=== PATIENT | female | born 1940 | race Caucasian/White ===

== ENCOUNTER 2016-10-19 15:40 | Emergency (ER) | payer MEDICARE, MEDICAID ==
[~2016-10-19] VITALS: Ht 144.8 cm; Wt 86.2 kg
[~2016-10-19 15:40] MED LIST: ALBUTEROL2 PUFFS/17 IN; ALLEGRA60 M1 PO; ALLOPURINOL100 MG PO; AMARYL1 MG PO; AMITRIPTYLINE 225 MG PO; AMITRIPTYLINE 550 MG PO; AMITRIPTYLINE25 MG PO; AMOXIL500 MG PO; ASPIRIN 81MG TA81 MG PO; ATIVAN GENERIC0.5 MG PO; BENADRYL25 M3 PO; BENGAY GREASELE1 CRE TP; BENZONATATE100 MG PO; BRILINTA90 MG PO; CALCIUM 500 + D1 TA1 PO; CALCIUM CARB500 MG PO; CALCIUM PO; CARVEDILOL 1212.5 MG FT; CARVEDILOL6.25 M1 PO; CARVEDILOL6.25 MG PO; CELEBREX200 MG PO; CIPRO 500MG TA500 MG PO; CLINDAMYCIN HC300 MG PO; COLCHICINE 0.60.6 MG PO; COLCHICINE0.6 M4 PO; DIAZEPAM5 MG PO; DILTIAZEM 180180 MG PO; DILTIAZEM CD 2240 MG PO; DOCUSATE SODIU100 MG PO; DOCUSATE SODIU250 M1 PO; DOXEPIN PO; ESCITALOPRAM10 M1 PO; FLEXERIL10 M1 PO; FLUCONAZOLE 10100 MG PO; FUROSEMIDE 40MG40 M1 PO; GABAPENTIN100 MG PO; GABAPENTIN300 MG PO; GERITOL COMPLET1 TAB PO; HYDROXYZINE HCL25 MG PO; INSULIN GL100 UNITS/ SC; KEFLEX 500MG.500 MG PO; LAMISIL250 MG PO; LANTUS SOLOS100 U/ML SC; LASIX 40MG. TAB40 MG PO; LASIX20 MG PO; LEVAQUIN250 MG PO; LEVOTHYROXINE0.05 M3 PO; LEVOTHYROXINE0.05 MG PO; LIPITOR40 MG PO; LISINOPRIL 5MG T5 MG PO; LISINOPRIL2.5 M1 PO; LOTREL 5 MG-101 CAP PO; LYRICA25 MG PO; LYRICA50 MG PO; MEDROL 4MG. DOSE4 MG PO; METFORMIN 500M500 MG PO; METOLAZONE 2.52.5 MG PO; METOLAZONE5 MG PO; METOPROLOL TART50 MG PO; MIRALAX17 GM/DOSE PO; MUPIROCIN CALCIUM2% TP; NAPROSYN 500MG500 MG PO; NAPROXEN SODIU220 MG PO; NEURONTIN 100100 MG PO; NOVOLOG MI100 UNITS/ SC; NOVOLOG MIX 70/10 M1 SC; NOVOLOG MIX SC; OMEPRAZOLE20 MG PO; OS-CAL 500 + D1 TAB PO; POTASSIUM CHLO10 ME3 PO; POTASSIUM CHLO20 ME2 PO; PREDNISONE 10MG10 MG PO; PREDNISONE20 MG PO; PREDNISONE50 MG PO; PRILOSEC20 MG PO; PROCTOCREAM-HC2.5% TP; RESTORIL 15MG C15 MG PO; SPECTAZOLE TP; SUPER B COMPLEX1 CAP PO; TESSALON PERLE100 M1 PO; TESSALON PERLE100 MG PO; TRAMADOL 50MG T50 MG PO; TRAZODONE50 MG PO; TYLENOL W/CODEI1 TA2 PO; Tramadol HCl50 MG PO; VENTOLIN H0.09 MG/AC IH; VICODIN 5/500 T1 TAB PO; VITAMIN B-1100 MG PO; WALK1 XX; ZANTAC 300300 MG PO; ZITHROMAX TRI-500 M1 PO; ZITHROMAX Z-PA250 M2 PO; ZYVOX600 MG PO; [UNRECOGNIZED DRUG - OTHER] PO; [UNRECOGNIZED DRUG - SUPPLY] XX
[2016-10-19 16:06] LABS: LYMPH # 0.8 K/mm3 (0.7-4.5); LYMPH % 9.1 % (10-50.0)
--- NOTE | 2016-10-19 16:09 | RADIOLOGY REPORT PS360 ---
CHEST-PORTABLE HISTORY: CHEST PAIN ORDERING PHYSICIAN: Derik Medrano MD PATIENT AGE: 76 years COMPARISON: 09/13/2016 FINDINGS: Cardiomegaly without failure. CHF has improved compared to the previous exam. There is however low lung volumes with coarsening of the bronchovascular markings likely accentuated by the poor inspiration. Atelectasis versus infiltrate noted in the right lung base. The remaining lungs are clear. IMPRESSION: Low lung volumes with chronic coarsening of the bronchovascular markings and atelectasis or infiltrate in right lung base
[2016-10-19 16:15] LABS: HEMOGLOBIN 10.6 g/dL (12.2-16.2)
--- NOTE | 2016-10-19 16:34 | Emergency Room Report ---
History of Present Illness Time Seen by [id number] Presenting Problem in Triage Pt arrived:Ambulance Stretcher Presenting Problem:Patient presents by ambulance with soa and chest pain that is worse with inspiration. She states she started feeling this way yesterday. 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 N Clinical Suspician of Infection? N Mental Status: 1 - Regular (Normal Baseline) Sepsis Risk:Low Sepsis Risk Have you (or family members/close friends) recently traveled outside the [place]? N If Yes, where/when: Have you had exposure to infectious disease within the past month? N TB? Other? Specify: Source patient, RN notes reviewed, family, RN/MD Exam Limitations no limitations Comment This is a 76-year-old [facility] female patient, from [place], presented emergency room with subjective fever, pleuritic type chest pain, off-and-on for the past 24 hours. Patient is known with diabetes sent diabetic neuropathy. She just had a heart attack within the past one month, requiring a coronary stent. ALLERGIES Coded Allergies: vancomycin (Severe, 09/13/16) Sulfa (Sulfonamide Antibiotics) (Mild, 09/13/16) celecoxib (From CELEBREX) (Mild, 09/13/16) cephalexin (From KEFLEX) (Mild, 09/13/16) levofloxacin (From LEVAQUIN) (Mild, 09/13/16) Home Medications Active Scripts Lisinopril 2.5 MG PO DAILY #30 TAB Ref 1 Prov: 09/16/16 Ticagrelor (Brilinta) 90 MG PO BID #60 TAB Ref 2 Prov: 09/16/16 Atorvastatin Calcium (Atorvastatin) 40 MG PO QHS #30 TAB Ref 2 Prov: 09/16/16 APAP 300MG W/CODEINE 30MG (Acetaminophen-Cod #3 Tablet) 1 TAB PO Q4HP PRN PAIN #90 TAB Ref 1 Prov: 09/16/16 Lorazepam (Ativan) 0.5 MG PO QHSP PRN insomnia #30 TAB Ref 1 Prov: 09/16/16 Reported Medications Allopurinol 200 MG PO DAILY Ins Asp-Prt 70/Asp 30(Nvlogmx) (Novolog Mix 70-30 Flexpen Syrn) 5 UNITS SC QHS Ins Asp-Prt 70/Asp 30(Nvlogmx) (Novolog Mix 70-30 Flexpen Syrn) 25 UNITS SC QAM Levothyroxine Sodium (Levothyroxine) 0.05 MG PO DAILY Amitriptyline Hcl (Amitriptyline) 25 MG PO QHS #30 TAB Escitalopram Oxalate 10 MG PO DAILY #30 TAB ASPIRIN (Aspirin) 81 MG PO DAILY Carvedilol (Carvedilol 6.25MG) 6.25 MG PO BID Calcium Carbonate ([id number]-735) 500 MG PO DAILY Furosemide (Lasix 40MG) 40 MG PO DAILY POTASSIUM CHL (Potassium Chloride) 20 MEQ PO DAILY History Medical History General CAD? No Angina: No ID: No Hypertension? Yes Hyperlipidemia? Yes CHF? Yes DVT? No PE? No COPD? No Asthma? No Anemia? No GERD? No Gastric ulcers? No GI Bleed? No Hernia? No Thyroid Problems? Yes Hypothyroidism? Yes CVA? No Seizures? No Diabetes? Yes Insulin Dependent: Yes Insulin Pump: No Home FSBS? Yes Renal Insuffiency? Yes End Stage Renal Disease? Yes UTI? Yes Stones? No BPH? No GB Disease: No Nephritic Syndrome? No Asplenia? No Hepatitis? No Sickle Cell Disease? No Arthritis? Yes Migraines? No Cataracts? No Glaucoma? No MRSA? No HIV? No TB? No Anxiety? No Depression? Yes Cancer? No More? Yes Additional hx: OSTEOPEROSIS, GOUT, Neuropathy, insomnia, chronic pain, CKD followed by [facility] Immunization Hx Ped.Immunizations UTD No DT/Tetanus 1-4 YRS Flu Refused Pneumonia Received In Past Surgical Hx Previous Surgery?Y TONSILECTOMY Family History Family Hx Diabetes Yes CAD Yes Hypertension Yes Hyperlipidemia Yes Cancer No TB No Social History Smoking Hx Smoker: Unknown if Ever Smoked Tobacco: No Type N/A Packs/day N/A Are you/the child exposed to second-hand smoke: No Alcohol Alcohol: No Review of Systems All Other Systems Reviewed and Negative Respiratory cough, denies shortness of breath Cardiovascular chest pain (chest wall pain) Physical Exam Vital Signs Vital Signs Date Time Temp Pulse Resp B/P Pulse O2 O2 Flow FiO2 Ox Delivery Rate 10/19 1903 104 20 98/51 96 / 1821 105 20 104/51 100 2 10/19 1817 20 10/19 1726 105 24 128/69 100 2 10/19 1659 107 24 103/79 99 2 /03 1617 102 18 128/75 100 2 10/19 1541 98.4 125 18 123/85 100 General Appearance normal appearance, WD/WN, mild distress Neck normal inspection, non-tender, supple, full range of motion Respiratory Status Yes: trachea midline, chest symmetrical, non tender chest. No: respiratory distress. Lung Sounds bilateral: normal breath sounds, lungs clear. Cardiovascular normal exam, regular rate/rhythm, no peripheral edema, no gallop, no JVD, no murmur, no rub, normal peripheral pulses Gastrointestinal normal bowel sounds, normal exam, non tender, soft, no organomegaly Back normal inspection, no CVA tenderness, no vertebral tenderness Extremities non-tender, normal range of motion, normal inspection Neurologic alert, fire assistant II-XII nml as tested, normal exam, oriented x 3 Mental status normal mood/affect Skin intact, normal color, warm/dry Medical Decision Making LABS/Meds/Orders Pt receiving controlled substance in ED? No Comment Upon reevaluation patient appears medically stable, complaining now with bilateral leg pain, which is in fact her chronic diabetic neuropathy. Advised patient of findings, need to initiate antibiotic treatment, also for her to follow-up with both Dr. Starks, her PCP as well as her exercise physiologist certified, Dr. Rhett Sidhu, within 2 days. Results/Orders Laboratory Tests 10/19/16 1550: Sodium 134 L, Potassium 5.2 H, Chloride 100, Carbon Dioxide 23, BUN 67 H, Creatinine 2.3 H, Estimated Creat Clear 28 L, Estimated GFR (MDRD) 21 L, Glucose 171 H, Calcium 8.3 L, Total Bilirubin 0.8, AST 27, ALT 27, Alkaline Phosphatase 135 H, Creatine Kinase 246 H, CK-MB (CK-2) Rel Index 1.2, CK and CKMB Interp 3.0, Troponin I 0.03, B-Natriuretic Peptide 1020 H, Total Protein 7.2, Albumin 2.8 L, Globulin 4.4 H, Albumin/Globulin Ratio 0.6 L, WBC 9.0, RBC 3.41 L, Hgb 10.6 L, Hct 33.9 L, MCV 99.4 H, RDW 16.2, Plt Count 232, MPV 7.9, Gran % 84.0 H, Gran # 7.6, Lymphocytes % 9.1 L, Monocytes % 6.3, Eosinophils % 0.4, Basophils % 0.2, Lymphocytes # 0.8, Monocytes # 0.6, Eosinophils # 0.0, Basophils # 0.0, PUBS MCHC 31.7 L, MCH 31.5 H Current Medication Orders Sig/Judith Start time Last Medication Dose Route Stop Time Status Admin Azithromycin 500 MG ONCE ONE 10/19 193 DC PO 10/19 193 Morphine Sulfate 4 MG ONCE ONE 10/19 1830 DC 10/19 IV 10/19 183 181 Ondansetron HCl 4 MG ONCE ONE 10/19 1830 DC 10/19 IV 10/19 183 1818 Morphine Sulfate 0 .STK-MED ONE 10/19 181 DC .ROUTE Ondansetron HCl 0 .STK-MED ONE 10/19 181 DC .ROUTE Morphine Sulfate 4 MG ONCE ONE 10/19 1800 CAN IM 10/19 1801 Ondansetron HCl 4 MG ONCE ONE 10/19 1800 CAN IM 10/19 1801 Sodium Chloride 10 ML PRN PRN 10/19 1600 AC IV 10/20 1556 Orders Procedure Date/time Status IV SALINE LOCK 10/19 1556 Active ELECTROCARDIOGRAM REQUEST 10/19 1541 Active CBC WITH AUTO DIFF 10/19 1541 Complete CARDIAC ENZYMES 10/19 1541 Complete CHEM 12 PROFILE 10/19 1541 Complete BRAIN NATRIURETIC PEPTIDE 10/19 1541 Complete 12 LEAD EKG-[facility] (INITIAL) 10/19 UNK Active CM/EKG 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 of ischemic chgs, no ectopy, normal QRS, normal SD, no EKG for comparison, non-spec. ST/Twave chgs, ST elevation, ST depression, LBBB, RBBB, ectopy, abnormal Q waves XRAY/CT/US XRAY/CT/US XRAY chest XR interpretation by reviewed by me (Dr. Ho), discussed w/radiologist Xray Results normal heart size, normal lung inflation imelda, RIGHT lower lung infiltrate consistent with pneumonia Departure Departure Time of Disposition 1923 Disposition DC Home or Self Care(routine) Clinical Impression Primary Impression: Chest pain Qualifiers: Chest pain type: unspecified Qualified Code: R07.9 - Chest pain, unspecified Secondary Impressions: Pneumonia Qualifiers: Pneumonia type: due to unspecified organism Laterality: right Lung location: lower lobe of lung Qualified Code: J18.1 - Lobar pneumonia, unspecified organism Condition STABLE Referrals Raudel GRECO,Elijah Guardado (Family): 2 Days-Call Office Rhett Sidhu MD: 2 Days-Call Office if not better Patient Instructions DI for Chest Pain, DI for Pneumonia -- Adult Additional Instructions Please take antibiotics prescribed as directed, follow-up with Dr. Crystal and Dr. Sidhu as instructed above. If worse and / or unable to see Dr. Starks/ Nahum within the next 2 days please return to this emergency room for reevaluation. Discharge Counseling Counseled pt/family regarding diagnosis, test results, medications/RX, home care, follow up needs Comment Please take antibiotics prescribed as directed, follow-up with Dr. Crystal and Dr. Sidhu as instructed above. If worse and / or unable to see Dr. Starks/ Nahum within the next 2 days please return to this emergency room for reevaluation. Prescriptions Current Visit Scripts Azithromycin (Zithromax 250 Mg) 250 MG PO DAILY #4 TAB ED Critical Care Critical Care No at 1937
--- NOTE | 2016-10-19 16:34 | Emergency Room Report ---
History of Present Illness Time Seen by 1943 Presenting Problem in Triage Pt arrived:Ambulance Stretcher Presenting Problem:Patient presents by ambulance with soa and chest pain that is worse with inspiration. She states she started feeling this way yesterday. 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 N Clinical Suspician of Infection? N Mental Status: 1 - Regular (Normal Baseline) Sepsis Risk:Low Sepsis Risk Have you (or family members/close friends) recently traveled outside the [place]? N If Yes, where/when: Have you had exposure to infectious disease within the past month? N TB? Other? Specify: Source patient, RN notes reviewed, family, RN/MD Exam Limitations no limitations Comment This is a 76-year-old halfway female patient, from [place], presented emergency room with subjective fever, pleuritic type chest pain, off-and-on for the past 24 hours. Patient is known with diabetes sent diabetic neuropathy. She just had a heart attack within the past one month, requiring a coronary stent. ALLERGIES Coded Allergies: vancomycin (Severe, 09/13/16) Sulfa (Sulfonamide Antibiotics) (Mild, 09/13/16) celecoxib (From CELEBREX) (Mild, 09/13/16) cephalexin (From KEFLEX) (Mild, 09/13/16) levofloxacin (From LEVAQUIN) (Mild, 09/13/16) Home Medications Active Scripts Lisinopril 2.5 MG PO DAILY #30 TAB Ref 1 Prov: 09/16/16 Ticagrelor (Brilinta) 90 MG PO BID #60 TAB Ref 2 Prov: 09/16/16 Atorvastatin Calcium (Atorvastatin) 40 MG PO QHS #30 TAB Ref 2 Prov: 09/16/16 APAP 300MG W/CODEINE 30MG (Acetaminophen-Cod #3 Tablet) 1 TAB PO Q4HP PRN PAIN #90 TAB Ref 1 Prov: 09/16/16 Lorazepam (Ativan) 0.5 MG PO QHSP PRN insomnia #30 TAB Ref 1 Prov: 09/16/16 Reported Medications Allopurinol 200 MG PO DAILY Ins Asp-Prt 70/Asp 30(Nvlogmx) (Novolog Mix 70-30 Flexpen Syrn) 5 UNITS SC QHS Ins Asp-Prt 70/Asp 30(Nvlogmx) (Novolog Mix 70-30 Flexpen Syrn) 25 UNITS SC QAM Levothyroxine Sodium (Levothyroxine) 0.05 MG PO DAILY Amitriptyline Hcl (Amitriptyline) 25 MG PO QHS #30 TAB Escitalopram Oxalate 10 MG PO DAILY #30 TAB ASPIRIN (Aspirin) 81 MG PO DAILY Carvedilol (Carvedilol 6.25MG) 6.25 MG PO BID Calcium Carbonate (Umav-Dvi-360) 500 MG PO DAILY Furosemide (Lasix 40MG) 40 MG PO DAILY POTASSIUM CHL (Potassium Chloride) 20 MEQ PO DAILY History Medical History General CAD? No Angina: No MO: No Hypertension? Yes Hyperlipidemia? Yes CHF? Yes DVT? No PE? No COPD? No Asthma? No Anemia? No GERD? No Gastric ulcers? No GI Bleed? No Hernia? No Thyroid Problems? Yes Hypothyroidism? Yes CVA? No Seizures? No Diabetes? Yes Insulin Dependent: Yes Insulin Pump: No Home FSBS? Yes Renal Insuffiency? Yes End Stage Renal Disease? Yes UTI? Yes Stones? No BPH? No GB Disease: No Nephritic Syndrome? No Asplenia? No Hepatitis? No Sickle Cell Disease? No Arthritis? Yes Migraines? No Cataracts? No Glaucoma? No MRSA? No HIV? No TB? No Anxiety? No Depression? Yes Cancer? No More? Yes Additional hx: OSTEOPEROSIS, GOUT, Neuropathy, insomnia, chronic pain, CKD followed by [facility] Immunization Hx Ped.Immunizations UTD No DT/Tetanus 1-4 YRS Flu Refused Pneumonia Received In Past Surgical Hx Previous Surgery?Y TONSILECTOMY Family History Family Hx Diabetes Yes CAD Yes Hypertension Yes Hyperlipidemia Yes Cancer No TB No Social History Smoking Hx Smoker: Unknown if Ever Smoked Tobacco: No Type N/A Packs/day N/A Are you/the child exposed to second-hand smoke: No Alcohol Alcohol: No Review of Systems All Other Systems Reviewed and Negative Respiratory cough, denies shortness of breath Cardiovascular chest pain (chest wall pain) Physical Exam Vital Signs Vital Signs Date Time Temp Pulse Resp B/P Pulse O2 O2 Flow FiO2 Ox Delivery Rate 10/19 1903 104 20 98/51 96 / 1821 105 20 104/51 100 2 10/19 1817 20 10/19 1726 105 24 128/69 100 2 10/19 1659 107 24 103/79 99 2 /03 1617 102 18 128/75 100 2 10/19 1541 98.4 125 18 123/85 100 General Appearance normal appearance, WD/WN, mild distress Neck normal inspection, non-tender, supple, full range of motion Respiratory Status Yes: trachea midline, chest symmetrical, non tender chest. No: respiratory distress. Lung Sounds bilateral: normal breath sounds, lungs clear. Cardiovascular normal exam, regular rate/rhythm, no peripheral edema, no gallop, no JVD, no murmur, no rub, normal peripheral pulses Gastrointestinal normal bowel sounds, normal exam, non tender, soft, no organomegaly Back normal inspection, no CVA tenderness, no vertebral tenderness Extremities non-tender, normal range of motion, normal inspection Neurologic alert, continuous improvement lead II-XII nml as tested, normal exam, oriented x 3 Mental status normal mood/affect Skin intact, normal color, warm/dry Medical Decision Making LABS/Meds/Orders Pt receiving controlled substance in ED? No Comment Upon reevaluation patient appears medically stable, complaining now with bilateral leg pain, which is in fact her chronic diabetic neuropathy. Advised patient of findings, need to initiate antibiotic treatment, also for her to follow-up with both Dr. Starks, her PCP as well as her home care physical therapist, Dr. Rhett Sidhu, within 2 days. Results/Orders Laboratory Tests 10/19/16 1550: Sodium 134 L, Potassium 5.2 H, Chloride 100, Carbon Dioxide 23, BUN 67 H, Creatinine 2.3 H, Estimated Creat Clear 28 L, Estimated GFR (MDRD) 21 L, Glucose 171 H, Calcium 8.3 L, Total Bilirubin 0.8, AST 27, ALT 27, Alkaline Phosphatase 135 H, Creatine Kinase 246 H, CK-MB (CK-2) Rel Index 1.2, CK and CKMB Interp 3.0, Troponin I 0.03, B-Natriuretic Peptide 1020 H, Total Protein 7.2, Albumin 2.8 L, Globulin 4.4 H, Albumin/Globulin Ratio 0.6 L, WBC 9.0, RBC 3.41 L, Hgb 10.6 L, Hct 33.9 L, MCV 99.4 H, RDW 16.2, Plt Count 232, MPV 7.9, Gran % 84.0 H, Gran # 7.6, Lymphocytes % 9.1 L, Monocytes % 6.3, Eosinophils % 0.4, Basophils % 0.2, Lymphocytes # 0.8, Monocytes # 0.6, Eosinophils # 0.0, Basophils # 0.0, PUBS MCHC 31.7 L, MCH 31.5 H Current Medication Orders Sig/Judith Start time Last Medication Dose Route Stop Time Status Admin Azithromycin 500 MG ONCE ONE 10/19 193 DC PO 10/19 193 Morphine Sulfate 4 MG ONCE ONE 10/19 1830 DC 10/19 IV 10/19 183 181 Ondansetron HCl 4 MG ONCE ONE 10/19 1830 DC 10/19 IV 10/19 183 1818 Morphine Sulfate 0 .STK-MED ONE 10/19 181 DC .ROUTE Ondansetron HCl 0 .STK-MED ONE 10/19 181 DC .ROUTE Morphine Sulfate 4 MG ONCE ONE 10/19 1800 CAN IM 10/19 1801 Ondansetron HCl 4 MG ONCE ONE 10/19 1800 CAN IM 10/19 1801 Sodium Chloride 10 ML PRN PRN 10/19 1600 AC IV 10/20 1556 Orders Procedure Date/time Status IV SALINE LOCK 10/19 1556 Active ELECTROCARDIOGRAM REQUEST 10/19 1541 Active CBC WITH AUTO DIFF 10/19 1541 Complete CARDIAC ENZYMES 10/19 1541 Complete CHEM 12 PROFILE 10/19 1541 Complete BRAIN NATRIURETIC PEPTIDE 10/19 1541 Complete [facility]/19 UNK Active 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 of ischemic chgs, no ectopy, normal QRS, normal MO, no EKG for comparison, non-spec. ST/Twave chgs, ST elevation, ST depression, LBBB, RBBB, ectopy, abnormal Q waves XRAY/CT/US XRAY/CT/US XRAY chest XR interpretation by reviewed by me (Dr. Ho), discussed w/radiologist Xray Results normal heart size, normal lung inflation imelda, RIGHT lower lung infiltrate consistent with pneumonia Departure Departure Time of Disposition 1923 Disposition DC Home or Self Care(routine) Clinical Impression Primary Impression: Chest pain Qualifiers: Chest pain type: unspecified Qualified Code: R07.9 - Chest pain, unspecified Secondary Impressions: Pneumonia Qualifiers: Pneumonia type: due to unspecified organism Laterality: right Lung location: lower lobe of lung Qualified Code: J18.1 - Lobar pneumonia, unspecified organism Condition STABLE Referrals Raudel GRECO,Elijah Guardado (Family): 2 Days-Call Office Rhett Sidhu MD: 2 Days-Call Office if not better Patient Instructions DI for Chest Pain, DI for Pneumonia -- Adult Additional Instructions Please take antibiotics prescribed as directed, follow-up with Dr. Crystal and Dr. Sidhu as instructed above. If worse and / or unable to see Dr. Starks/ Nahum within the next 2 days please return to this emergency room for reevaluation. Discharge Counseling Counseled pt/family regarding diagnosis, test results, medications/RX, home care, follow up needs Comment Please take antibiotics prescribed as directed, follow-up with Dr. Crystal and Dr. Sidhu as instructed above. If worse and / or unable to see Dr. Starks/ Nahum within the next 2 days please return to this emergency room for reevaluation. Prescriptions Current Visit Scripts Azithromycin (Zithromax 250 Mg) 250 MG PO DAILY #4 TAB ED Critical Care Critical Care No at 1937
--- OUTSIDE RECORDS SUMMARY | 2016-10-19 17:06 | External Medical Summary Rpt ---
Author Author , Organization [employer] Address Unknown Phone Unavailable Care Team Providers Care Career And Technology Education Teacher Name Role Phone CALDERON VALENTINE, CALDERON Unavailable Unavailable VALENTINE [employer] Unavailable Unavailable INC, [employer] Unavailable Unavailable INC, [employer] ALLRAN JR ELAINE, ALLRAN Unavailable Unavailable JR ELAINE ALLRAN JR ELAINE, ALLRAN Unavailable Unavailable JR ELAINE [facility], Unavailable Unavailable [facility], Unavailable Unavailable [facility] AYARAM, APRIL, AYARAM, Unavailable Unavailable APRIL CHAPMAN HOL, CHAPMAN Unavailable Unavailable HOL BEINEKE KAY BEINEKE Unavailable Unavailable KAY BALJINDER L, BALJINDER L Unavailable Unavailable BESSON TRACY, BESSON Unavailable Unavailable TRACY RODRIGUEZ ALL, RODRIGUEZ ALL Unavailable Unavailable [facility] Unavailable Unavailable SERVICE, [facility] Unavailable Unavailable SERVICE, [facility] BUTROS, REZKALLA, Unavailable Unavailable BUTROS, REZKALLA [facility] Unavailable Unavailable CONSULTANTS O, [facility] O [facility] Unavailable Unavailable CAMPUS, [facility] Unavailable Unavailable CAMPUS, [facility] Unavailable [facility]available [place], [facility] Unavailable Unavailable [facility], [facility] Unavailable Unavailable LAB, [facility] COOK JUAN J, PATRIC JUAN J Unavailable Unavailable BRENDAN YADAV Unavailable Unavailable Sameer CARDONA, BRENDAN, Unavailable Unavailable Sameer Blas CROSSFIELD, DANNIJONAS, Unavailable Unavailable CROSSFIELD, DANNITA SHERI MELIDA, Unavailable Unavailable SHERI MELIDA SHERI, RAYMUNDO, Unavailable Unavailable SHERI, RAYMUNDO [facility], Unavailable Unavailable [facility] Unavailable Unavailable LLC, [facility] JEAN-BAPTISTE LEIGHTON, Unavailable Unavailable JEAN-BAPTISTE LEIGHTON [facility], Unavailable Unavailable JE[facility]-BAPTIST[facility] LEIGHTON DORITA DELUNA Unavailable Unavailable MINNA BAINS, Unavailable Unavailable MINNA KEVIN [facility] Unavailable Unavailable [facility], [facility] Unavailable Unavailable ASSOCIATES, [facility], [facility] WILL CHARMAINE, Unavailable Unavailable WILL CHARMAINE FOSTER JAM, FOSTER Unavailable Unavailable JAM BRENDEN CHIDI, BRENDEN Unavailable Unavailable CHIDI BRENDEN, TAYA S, Unavailable Unavailable TAYA WILCOX S RAMIREZ HAYLEY, RAMIREZ HAYLEY Unavailable Unavailable MARISOL ANDREZ, Unavailable Unavailable MARISOL ANDREZ [facility] Unavailable Unavailable INC, [facility] P, [facility] P PETERS LANNY, PETERS LANNY Unavailable Unavailable PETERS LANNY, PETERS LANNY Unavailable Unavailable PETERS, GEE A, Unavailable Unavailable PETERS, GEE A [facility], Unavailable Unavailable [facility] RHYS JOINER Unavailable Unavailable KLARISSA IMT, KLARISSA Unavailable Unavailable IMT Scarlet Pattesron WINDOW INSTALLER, Unavailable Unavailable Scarlet Patterson WINDOW INSTALLER [facility] Unavailable [facility], [facility] KOTTER JUAN J, KOTTER Unavailable Unavailable JUAN J [facility], [facility] Unavailable [facility], [facility] Unavailable Unavailable HOLDING, [facility] Unavailable Unavailable HOLDING, [facility] ESTEVAN JR, ESTEVAN JR Unavailable Unavailable ESTEVAN JR DWI, ESTEVAN Unavailable Unavailable JR DWI [facility] Un[facility] Un[facility] Unavailable Unavailable SERVICES, [facility] MCKEMIE JR NANCY, Unavailable Unavailable MCKEMIE JR NANCY XAVI EPPS P, Unavailable Unavailable [facility] EP[facility] P MULBERRY NILO, Unavailable Unavailable MULBERRY NILO MULBERRY, CLEO T, Unavailable Unavailable MULBERRY, CLEO T CROWELL SON, CROWELL SON Unavailable Unavailable [facility] Unavailable Unavailable [facility], [facility] PSC Clemente OCAMPO, Unavailable Unavailable Clemente OCAMPO [facility] Unavailable Unavailable [facility], Unavailable Unavailable PLL[facility], [facility] PAWSAT MAR, PAWSAT Unavailable Unavailable MAR PAWSAT MAR, PAWSAT Unavailable Unavailable MAR PETTEY JAM, PETTEY Unavailable Unavailable JAM RENUSCH LEANN, RENUSCH Unavailable Unavailable LEANN SADEK MOH, SADEK MOH Unavailable Unavailable PIETRO, PIETRO Unavailable Unavailable [facility], Unavailable Unavailable [facility] SOKAN BAB, SOKAN BAB Unavailable Unavailable [facility] Unavailable [facility], [facility] Unavailable Unavailable [facility], [facility] Unavailable [facility]available [facility], [facility] Unavailable [facility]available [facility], [facility] Unavailable Unavailable [facility], [facility] Unavailable Unavailable EMERGENCY PHYS, [facility] Unavailable Unavailable CLINIC, [facility] STRAWZELL CRI, Unavailable Unavailable STRAWZELL CRI [facility], Unavailable Unavailable [facility], Unavailable Unavailable [facility] WEI RAND, WEI RAND Unavailable Unavailable WEHRMAN III NANCY, Unavailable Unavailable WEHRMAN III NANCY [facility] Unavailable Unavailable LLC, [facility] ELSA LIRA, ELSA LIRA Unavailable Unavailable Purpose Continuity of Care Document - 11-11-2007 through 2016 Problems Code Diagnosis DOS Provider Status E109 TYPE 1 09-14-2016 [facility] MELLITUS GROUP WITHOUT COMPLICATIO NS I213 ST 09-14-2016 [facility] MYOCARDIAL GROUP INFARCTION UNS SITE I739 PERIPHERAL 09-14-2016 [facility] VASCULAR [facility] DISEASE GROUP UNSPECIFIED N183 CHRONIC 09-14-2016 [facility] KIDNEY [facility] DISEASE GROUP STAGE 3 MODERATE E1142 TYPE 2 09-13-2016 [facility] P W/DIAB POLYNEUROPA THY I119 HYPERTENSIV 09-13-2016 [facility], DISEASE PLLC WITHOUT HEART FAILURE I129 HYPERTENSIV 09-13-2016 [facility] CKD [facility] W/STAGE 1-4 INC CKD OR UNS CKD B74225 ASHD [place] 09-13-2016 [facility] COR ART [facility] W/UNSTABLE INC ANGINA PECTORIS I5043 ACUTE ON 09-13-2016 [facility] P SYSTOLIC & DIASTOLIC CHF I773 ARTERIAL 09-13-2016 [facility] FIBROMUSCUL [facility] AR INC DYSPLASIA R0602 SHORTNESS 09-13-2016 [facility] OF BREATH PHYSICIANS GROUP R0689 OTHER 09-13-2016 [facility] AMBULANCE ES OF SERVICE BREATHING Z794 NURSING HOME 09-13-2016 [facility] CURRENT USE [facility] OF INSULIN INC E039 HYPOTHYROID 06-09-2016 [facility] ISM [facility] UNSPECIFIED INC E118 TYPE 2 06-09-2016 [facility]ETES [facility] MELLITUS INC W/UNS COMPLICATIO NS E119 TYPE 2 03-21-2016 [facility] MELLITUS [facility]OUNDATION WITHOUT COMPLICATIO NS M810 AGE-RELATED 03-21-2016 [facility] OSTEOPOROSI [facility]OUNDATION S W/O CURRNT PATH FX N184 CHRONIC 03-21-2016 [facility] DISEASE FOUNDATION STAGE 4 SEVERE N250 RENAL 03-21-2016 [facility] OSTEODYSTRO SERV PHY FOUNDATION N390 URINARY 03-18-2016 [facility] INFECTION LA SITE NOT SPECIFIED C46833 TYPE 2 02-28-2016 [facility] MELLITUS [facility] P W/HYPOGLYCE VICTORIANO W/O COMA E162 HYPOGLYCEMI 02-28-2016 [facility]YS[facility], UNSPECIFIED PLLC E876 HYPOKALEMIA 02-28-2016 [facility] INC I10 ESSENTIAL 02-28-2016 [facility] N I5032 CHRONIC 02-28-2016 [facility] P HEART FAILURE R410 DISORIENTAT 02-28-2016 [facility] UNSPECIFIED SERVICE Z591 INADEQUATE 02-28-2016 [facility] INC R90169 OTHER LONG 02-28-2016 [facility] CURRENT INC DRUG THERAPY G4733 OBSTRUCTIVE 02-15-2016 [facility] SLEEP HOME APNEA ADULT MEDICAL PEDIATRIC EQUIPME [id number] MX FX 02-15-2016 [facility] PELVIS STBL HOME DISRUPT MEDICAL PELV RING EQUIPME INIT CHANDRIKA FX I8310 VARICOSE 09-17-2015 [facility] UNS VALLEY LOWER INTERNAL EXTREM MEDI W/INFLAMMAT ION M129 ARTHROPATHY 09-17-2015 [facility] UNSPECIFIED INTERNAL MEDI Z9111 PATIENTS 09-07-2015 [facility] NONCOMPLIAN VALLEY CE WITH INTERNAL DIETARY MEDI REGIMEN N189 CHRONIC 09-05-2015 [facility] KIDNEY PHYSICIANS, DISEASE PLLC UNSPECIFIED R1110 VOMITING 09-05-2015 [place] [facility]PECIFIED [facility] IM[facility]ING ASS R404 TRANSIENT 09-05-2015 [place] ALTERATION MEDICAL OF IMAGING ASS AWARENESS R4182 ALTERED 09-05-2015 [facility] MENTAL PHYSICIANS, STATUS PLLC UNSPECIFIED R464 SLOWNESS 09-05-2015 [facility] RESPONSIVEN SERVICE ESS R75097 CELLULITIS 08-16-2015 [facility] OF RIGHT VALLEY LOWER LIMB INTERNAL MED O15591 CELLULITIS 08-16-2015 [facility] OF LEFT VALLEY LOWER LIMB INTERNAL MED E1021 TYPE 1 08-10-2015 [facility] DIABETES [facility] MELLITUS INC W/DIABETIC NEPHROPATHY E1065 TYPE 1 08-10-2015 [facility] DIABETES [facility] MELLITUS INC WITH HYPERGLYCEM IA E138 OTH SPEC 08-10-2015 [facility] DIABETES PHYSICIANS, MELLITUS PLLC W/UNS COMPLICATIO NS V94828 CELLULITIS 08-10-2015 [facility] OF PHYSICIANS, UNSPECIFIED PLLC PART OF LIMB R739 HYPERGLYCEM 08-10-2015 [facility] [place] [facility]ANCE UNSPECIFIED SERVICE L853 XEROSIS 08-09-2015 [facility] CUTIS [place] INTERNAL MED E6601 MORBID 08-05-2015 [facility] SEVERE [place] OBESITY DUE INTERNAL TO EXCESS MEDI CALORIES I270 PRIMARY 07-20-2015 [facility] PULMONARY [facility] HYPERTENSIO CAMPUS N I5030 UNSPECIFIED 07-20-2015 [facility] HEART FAILURE R0600 DYSPNEA 07-20-2015 [facility] HEALTH YONKERS M542 CERVICALGIA 07-12-2015 [facility] M546 PAIN IN 07-12-2015 [facility] THORACIC MOBILEX SPINE I509 HEART 07-11-2015 [facility] FAILURE VALLEY UNSPECIFIED INTERNAL MED I8311 VARICOSE 07-11-2015 [facility] RT VALLEY LOWER INTERNAL EXTREMITY MED W/INFLAMMAT ION M4003 POSTURAL 07-11-2015 [facility] KYPHOSIS [place] CERVICOTHOR INTERNAL ACIC REGION MED R05 COUGH 06-05-2015 [facility] R600 LOCALIZED 05-09-2015 [facility] LAR [facility]SULT[facility] O I348 OTHER 05-05-2015 [place] [facility] NONRHEUMATI SERV C MITRAL FOUNDATION VALVE DISORDERS I361 NONRHEUMATI 05-05-2015 [facility] TRICUSPID SERV VALVE FOUNDATION INSUFFICIEN CY I371 NONRHEUMATI 05-05-2015 [facility] PULMONARY SERV VALVE FOUNDATION INSUFFICIEN CY E1140 TYPE 2 DM 05-04-2015 [facility] WITH [facility] DIABETIC INC NEUROPATHY UNSPECIFIED I130 HTN HEART & 05-04-2015 [facility] CKD W/HF & MEM HOS[facility] CKD STAGE INC 1-4 OR UNS CKD I272 OTHER 05-04-2015 [facility] SECONDARY [facility] PULMONARY INC HYPERTENSIO N Z6841 BODY MASS 05-04-2015 [facility] INDEX BMI [facility] 40.0-44.9 INC ADULT N3020 OTHER 04-28-2015 [facility]IC [facility] WITHOUT HEMATURIA J209 ACUTE 03-31-2015 [facility] BRONCHITIS [facility]OS[facility] UNSPECIFIED INC D40365 PERSONAL 03-31-2015 [facility] HISTORY OF MEM HOS[facility] NICOTINE INC DEPENDENCE A499 BACTERIAL 03-23-2015 [place] [facility] IN[facility] UNSPECIFIED FOUNDATION R279 UNSPECIFIED 03-19-2015 [facility] LACK OF MEM HOS[facility] COORDINATIO INC N Z5189 ENCOUNTER 03-19-2015 [facility] FOR OTHER MEM [facility]OS[facility] SPECIFIED INC AFTERCARE 04792 DIAB W/O 03-17-2015 [facility] COMP TYPE I HOME [JUV] NOT MEDICAL STATED EQUIPME UNCNTRL 75609 OBSTRUCTIVE 03-17-2015 [facility] SLEEP HOME APNEA MEDICAL EQUIPME 62635 MULTIPLE 03-17-2015 [facility] CLOSED HOME PELVIC FX MEDICAL DISRUPT EQUIPME PELVIC KASHIA 2449 UNSPECIFIED 03-10-2015 [facility] HYPOTHYROID INC ISM 26705 DIAB W/O 03-10-2015 [facility] COMP TYPE [facility] II/UNS NOT INC STATED UNCNTRL 5854 CHRONIC 03-10-2015 [facility] KIDNEY [facility] DISEASE INC STAGE IV (SEVERE) 5990 URINARY 03-10-2015 [facility] TRACT [facility] INFECTION INC SITE NOT SPECIFIED 10630 UNSPECIFIED 03-10-2015 [facility] OSTEOPOROSI INC S 4019 UNSPECIFIED 03-02-2015 [facility] ESSENTIAL VALLEY HYPERTENSIO INTERNAL N MEDI 4541 VARICOSE 03-02-2015 [facility] LOWER VALLEY INTERNAL EXTREMITIES MEDI W/INFLAMMAT ION 65025 UNSPECIFIED 03-02-2015 [facility] [place] CONSTIPATIO INTERNAL N MEDI 5939 UNSPECIFIED 03-02-2015 [facility] DISORDER VALLEY OF KIDNEY INTERNAL AND URETER MEDI 7823 EDEMA 03-02-2015 [facility] INTERNAL MEDI 39638 UNSPECIFIED 03-02-2015 [facility] RETENTION VALLEY OF URINE INTERNAL MEDI 88656 UNSPECIFIED 02-24-2015 [facility] ARTHROPATHY [facility] P MULTIPLE SITES 7813 LACK OF 02-24-2015 [facility] P V571 OTHER 02-24-2015 [facility]ICAL [facility] THERAPY INC 5952 OTHER 02-03-2015 [facility] CYSTITIS [facility] P 2761 HYPOSMOLALI 01-17-2015 [facility] TY AND/OR HEALTH HYPONATREMI CAMPUS A 61483 LEUKOCYTOSI 01-17-2015 [facility] UNSPECIFIED CAMPUS 5849 ACUTE 01-17-2015 [facility] KIDNEY HEALTH FAILURE CAMPUS UNSPECIFIED 7197 DIFFICULTY 01-17-2015 [facility] IN WALKING HEALTH CAMPUS 13008 MUSCLE 01-17-2015 [facility] WEAKNESS HEALTH (GENERALIZE CAMPUS D) 7993 UNSPECIFIED 01-17-2015 [facility] DEBILITY HEALTH CAMPUS 9953 ALLERGY 01-17-2015 [facility] UNSPECIFIED HEALTH NOT CAMPUS ELSEWHERE CLASSIFIED 91666 HTN CKD UNS 12-25-2014 [place] [facility] W/CKD SERV STAGE I FOUNDATION THRU STAGE IV/UNS 515 POSTINFLAMM 12-16-2014 [facility] ATORY [facility] PULMONARY FIBROSIS V5881 FITTING AND 12-16-2014 [facility] ADJUSTMENT [facility] OF VASCULAR CATHETER 4280 CONGESTIVE 12-09-2014 [facility] HEART [facility] FAILURE UNSPECIFIED 4293 CARDIOMEGAL 12-09-2014 [facility] Y [facility]LEX 1101 DERMATOPHYT 12-04-2014 [facility] OSIS OF E NAIL 82726 DIAB 12-04-2014 [facility] W/PERIPH E CIRC D/O TYPE II/UNS NOT UNCNTRL 4439 UNSPECIFIED 12-04-2014 [facility] PERIPHERAL E VASCULAR DISEASE 9172 FOOT&TOE 12-04-2014 [facility] BLISTER E WITHOUT MENTION OF INFECTION 9243 CONTUSION 12-04-2014 [facility] OF TOE E 63817 ABDOMINAL 11-03-2014 [place] PAIN RIGHT MEDICAL UPPER IMAGING ASS QUADRANT 5533 DIAPHRAGMAT 11-01-2014 [place] KODY W/O MEDICAL MENTION IMAGING ASS OBSTRUCTION /GANGREN 7905 OTHER 11-01-2014 [place] NONSPECIFIC MEDICAL ABNORMAL IMAGING ASS SERUM ENZYME LEVELS 7862 COUGH 10-30-2014 [place] [facility] V5869 LONG-TERM 10-30-2014 [facility] (CURRENT) [facility] USE OF INC OTHER MEDICATIONS 91927 UNSPECIFIED 10-28-2014 [place] OTALGIA [facility] 7224 DEGENERATIO 10-28-2014 [place] N OF MEDICAL CERVICAL IMAGING ASS INTERVERTEB RAL DISC 7231 CERVICALGIA 10-28-2014 [facility] 56025 SENILE 06-23-2014 [facility] OSTEOPOROSI [facility] S INC 2689 UNSPECIFIED 05-20-2014 [facility] VITAMIN D [facility] DEFICIENCY INC 2724 OTHER AND 05-20-2014 [facility] UNSPECIFIED [facility]OS[facility] INC HYPERLIPIDE VICTORIANO 47315 OTHER 05-20-2014 [facility] OSTEOPOROSI [facility]OS[facility] S INC 34674 HYPERTENSIV 02-20-2014 [facility] E HEART [facility] DISEASE INC UNSPEC W/HEART FAIL 4660 ACUTE 02-20-2014 [facility] BRONCHITIS [facility] INC 490 BRONCHITIS 02-20-2014 [facility]ERGENCY SPECIFIED PHYS ACUTE OR CHRONIC 80697 SWELLING OF 02-20-2014 [facility] LIMB N EMERGENCY PHYS 5853 CHRONIC 11-18-2013 [place] [facility] DISEASE FOUNDATIO STAGE III (MODERATE) 586 UNSPECIFIED 10-29-2013 [facility] RENAL PHYSICIANS FAILURE [place] 7262 OTHER 05-30-2013 [facility] AFFECTIONS PHYSICIANS OF SHOULDER GROUP REGION NEC 48781 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-2013 [facility] 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 SPINE HOSPITAL P 98071 ORTHOPNEA 01-16-2013 [facility] P 23104 OTHER 01-16-2013 [facility] DYSPNEA AND EMERGENCY SERVICES RESPIRATORY ABNORMALITI ES 7265 ENTHESOPATH 10-17-2012 [facility] Y OF HIP MEM [facility] REGION INC 92995 PAIN IN 08-22-2012 [place] JOINT MEDICAL PELVIC IMAGING ASS REGION AND THIGH 2749 GOUT, 07-16-2012 [place] [address] SHORTNESS 05-28-2012 [facility] 4240 MITRAL 05-27-2012 [facility] DISORDERS INC 30682 OSTEOARTHRO 05-27-2012 [facility] S UNSPEC [facility] WHETHER INC GEN/LOC UNSPEC SITE 65496 CHEST PAIN 05-27-2012 [place] UNSPECIFIED MEDICAL IMAGING ASS 51976 OTHER CHEST 05-27-2012 [facility] PAIN [facility] P 5859 CHRONIC 12-01-2011 [facility] KIDNEY [facility] DISEASE INC UNSPECIFIED 03134 HYPERSOMNIA 11-15-2011 JE[facility]APTISTE WITH SLEEP [facility] APNEA UNSPECIFIED 40187 ANEMIA OF 10-30-2011 [facility]PITAL P DISEASE 2859 UNSPECIFIED 10-30-2011 [facility] AN[facility] 62410 DEGEN 10-30-2011 [place] THORACIC/TH MEDICAL ORACOLUMBAR IMAGING ASS INTERVERTEB RAL DISC 17047 DEGEN 10-30-2011 [place] LUMBAR/LUMB MEDICAL OSACRAL IMAGING ASS INTERVERTEB RAL DISC 7242 LUMBAGO 10-30-2011 [facility] P 7245 UNSPECIFIED 10-30-2011 [facility] BACKACHE [facility] SERVICES 7840 HEADACHE 10-30-2011 [facility] HOSP INC 69477 OTHER 10-20-2011 [place] DISEASES OF MEDICAL LUNG NOT IMAGING ASS ELSEWHERE CLASSIFIED 5199 UNSPECIFIED 10-20-2011 [place] DISEASE OF MEDICAL IMAGING ASS RESPIRATORY SYSTEM V5867 LONG-TERM 10-19-2011 [facility] P 3559 MONONEURITI 10-14-2011 [facility] S OF HOME UNSPECIFIED MEDICAL SITE EQUIPME 00832 OTHER 10-14-2011 [facility] MALAISE AND HOME FATIGUE MEDICAL EQUIPME 5180 PULMONARY 10-05-2011 [place] COLLAPSE MEDICAL IMAGING ASS 44918 OTHER 09-30-2011 [facility] STAPHYLOCOC [facility] CUS INC INFECTION IN CCE & UNS SITE 2768 HYPOPOTASSE 09-30-2011 [facility] VICTORIANO [employer] 2888 OTHER 09-30-2011 [facility] SPECIFIED DISEASE OF ASSOCIATES, WHITE BLOOD PSC CELLS 4599 UNSPECIFIED 09-30-2011 [facility] CIRCULATORY INC SYSTEM DISORDER 486 PNEUMONIA, 09-30-2011 [facility] ORGANISM [facility] UNSPECIFIED INC 55493 OTHER 09-30-2011 [place] SPECIFIED MEDICAL DISORDERS IMAGING ASS OF BLADDER 05804 OSTEOARTHRO 09-30-2011 [place] SIS UNSPEC MEDICAL WHETHER IMAGING ASS GEN/LOC LOWER LEG 47888 EFFUSION OF 09-30-2011 [place] LOWER LEG MEDICAL JOINT IMAGING ASS 7291 UNSPECIFIED 09-30-2011 [facility] MYALGIA [employer]IC AND HOLDING MYOSITIS 7295 PAIN IN 09-30-2011 [facility] SOFT TISSUES OF ASSOCIATES, LIMB PSC 7821 RASH AND 09-14-2011 [facility] OTHER NONSPECIFIC ASSOCIATES, SKIN PSC ERUPTION V770 SCREENING 09-14-2011 [facility] FOR THYROID DISORDER ASSOCIATES, PSC V7791 SCREENING 09-14-2011 [facility] FOR LIPOID DISORDERS ASSOCIATES, PSC 00622 DIAB 06-24-2011 [facility] W/NEURO MANIFESTS TYPE II/UNS NOT UNCNTRL 7038 OTHER 06-24-2011 [facility] MAR SPECIFIED DISEASE OF NAIL 49774 SECONDARY 03-29-2011 [facility] OSTEOARTHRO CLINIC PSC SIS LOWER LEG 19751 PAIN IN 03-29-2011 [facility] JOINT, MEM [facility]OS[facility] LOWER LEG INC 92161 BACKGROUND 03-25-2011 [facility] DIABETIC VISION RETINOPATHY 50549 NUCLEAR 03-25-2011 [facility] SCLEROSIS VISION 7820 DISTURBANCE 02-09-2011 [facility] OF SKIN [facility] SENSATION INC 2767 HYPERPOTASS 02-07-2011 [facility] EMIA ASSOCIATES 460 ACUTE 02-07-2011 [facility] NASOPHARYNG ASSOCIATES ITIS 6929 CONTACT 01-27-2011 [facility] DERMATITIS& EMERGENCY OTHER SERVICES ECZEMA DUE UNSPEC CAUSE 53024 PAIN IN 12-09-2010 [facility] JOINT, ASSOCIATES MULTIPLE SITES 23909 UNSPEC 10-28-2010 ALL[facility] JR VENTRAL ELAINE KODY W/O MENTION OBST/GANGRE N 96901 ABDOMINAL 09-21-2010 [facility] PAIN, MEM HOSP GENERALIZED INC 7831 ABNORMAL 08-24-2010 [facility] WEIGHT GAIN PHYSICIANS LA 5110 PLEURISY 07-18-2010 [facility] WITHOUT EMERGENCY MENTION SERVICES EFFUS/[place] [address] PAINFUL 07-18-2010 [place] RESPIRATION MEDICAL IMAGING ASS 2721 PURE 07-08-2010 [facility] HYPERGLYCER PHYSICIANS IDEMIA [place] 7944 NONSPECIFIC 07-07-2010 [facility] ABNORM ASSOCIATES RESULTS KIDNEY FUNCTION STUDY 17093 ASTHMA, 06-16-2010 [facility] UNSPECIFIED EMERGENCY , SERVICES UNSPECIFIED STATUS 84967 DIAB 05-21-2010 PETERSYANELY CA W/OPHTH MANIFESTS TYPE II/UNS NOT UNCNTRL 8250 CLOSED 04-28-2010 [facility] FRACTURE OF MEM HOSP CALCANEUS INC V5416 AFTERCARE 04-28-2010 [place] HEALING MEDICAL TRAUMATIC IMAGING ASS FRACTURE LOWER LEG 8248 UNSPECIFIED 03-31-2010 [place] CLOSED MEDICAL FRACTURE OF IMAGING ASS ANKLE 62017 OTHER ANKLE 03-31-2010 [facility] [employer] STR[facility] S INC 9596 INJURY 02-17-2010 [place] OTHER AND MEDICAL UNSPECIFIED IMAGING ASS HIP AND THIGH 9597 INJURY 02-17-2010 [place] OTHER&UNSPE MEDICAL CIFIED KNEE IMAGING ASS LEG ANKLE&FOOT 920 CONTUSION 02-16-2010 [facility] OF FACE EMERGENCY SCALP AND SERVICES NECK EXCEPT EYE 50251 CONTUSION 02-16-2010 [facility] E8859 FALL FROM 02-16-2010 [facility] OTHER EMERGENCY SLIPPING SERVICES TRIPPING OR STUMBLING 96396 INSOMNIA 02-04-2010 [facility] UNSPECIFIED ASSOCIATES V0382 NEED PROPH 02-04-2010 [facility] AGAINST STREP PNEUMONE 63191 URINARY 11-04-2009 [facility] FREQUENCY [facility] 2811 OTHER 08-24-2009 [facility] VITAMIN B12 [facility] DEFICIENCY ANEMIA 514 PULMONARY 08-24-2009 [facility] CONGESTION [facility] AND HYPOSTASIS E8490 PLACE OF 07-10-2009 [place] OCCURRENCE, [facility] 30990 GEN 04-15-2009 [facility] INVOLVING MULTIPLE SITES 7919 OTHER 03-31-2009 [facility] NONSPECIFIC [facility] FINDING INC EXAMINATION OF URINE 55772 NEPHRITIS&N 03-24-2009 [facility] EPHROPATH[facility] PRIMARY W/[facility] C[facility] PATHOLOG KIDNEY LES 87437 NOCTURIA 03-11-2009 [facility] 07418 HYPERSOMNIA 02-26-2009 [facility] UNSPECIFIED 90357 DIAB 11-28-2008 [facility] W/ALEX Meza MANIFESTS TYPE II/UNS TYPE UNCNTRL 4619 ACUTE 06-17-2008 [facility] SINUSITIS, [facility] UNSPECIFIED 8082 CLOSED 03-18-2008 [facility] FRACTURE OF L [facility]IS [facility] PSC 7089 UNSPECIFIED 11-17-2007 [facility] URTICARIA [facility] 6868 OTH SPEC 11-12-2007 [facility] SKIN&SUBCUT PROF SERV TISSUE V642 SURG/OTH 11-11-2007 [facility] PROC NOT [facility] CARRIED OUT INC BECAUSE PTS DECN 401.9 Essential [place] hypertensio [facility] [id number] Diastolic [place] heart [facility] [id number] Diabetes [place] mellitus [facility] type 2 [facility] [id number] Mitral [place] valve [facility] on 786.09 Dyspnea [facility] Allergies, Adverse Reactions, Alerts Type Drug Allergy Adverse Reaction to Substance Substance Reaction Severity SULFA (sulfonamide) ELSA KINCAID Severe SYNDROME Sulfacetamide Unknown Unknown Celecoxib I-HIVES Intermediate Clinical Alert Notifications Alert Diabetes: no eye exam in the last 365 days Diabetes: no influenza vaccine in the last 365 days Medications Na ND Rx Da Fi Fi Am Da Di Ph RX Ph St me C No te ll ll ou ys ag ar # ys at rm s nt no ma ic us Or Da si cy ia de te s n re d Sa 63 07 0 No li 80 -3 ne 70 1- Lo 10 20 ng Fl 07 13 er us 5 h Ac 10 ti ML ve Sy ri ng e FU 00 07 0 No RO 40 -3 SE 96 1- Lo MO 10 20 ng DE 20 13 er 4 40 Ac ti MG ve /4 ML AL Immunization Name Date Route CVX Reacti Commen Provid Is Given on t er Refuse d PPSV23 FAMILY No 2009 CARE VACCIN ASSOCI E 2 ATES YRS OR OLDER FOR SUBQ/I M USE Vital Signs 04-29-2013 09:14 Name Value Interpretat Reference Comment ion Range BP 73 mm[Hg] Diastolic BP Systolic 125 mm[Hg] Heart 91 /min Rate/Pulse O2% 100 % Respiratory 20 /min Rate 01-16-2013 14:29 Name Value Interpretat Reference Comment ion Range Body 98.1 [degF] Temperature BP 70 mm[Hg] Diastolic BP Systolic 136 mm[Hg] Heart 82 /min Rate/Pulse O2% 98 % Respiratory 20 /min Rate 01-16-2013 08:13 Name Value Interpretat Reference Comment ion Range BP 86 mm[Hg] Diastolic BP Systolic 169 mm[Hg] Heart 88 /min Rate/Pulse Respiratory 20 /min Rate 01-16-2013 07:43 Name Value Interpretat Reference Comment ion Range O2% 100 % Results Labs Lab Lab Date Result Refere Interp Status Commen Order Detail nces retati t Range on Magnesium SerPl-mCnc (10-07-2016 04:45) Magnesi 1.9 1.9-2.4 complet um 017 mg/dL ed SerPl-m 04:45 Cnc Magnesium SerPl-mCnc (10-06-2016 03:08) Magnesi 2.0 1.9-2.4 complet um 017 mg/dL ed SerPl-m 03:08 Cnc Magnesium SerPl-mCnc (10-05-2016 03:15) Magnesi 2.0 1.9-2.4 complet um 017 mg/dL ed SerPl-m 03:15 Cnc Phosphate SerPl-mCnc (10-05-2016 03:15) Phospha DUP 2.5-4.5 complet te 017 DUPLICA ed SerPl-m 03:15 TE Cnc ORDER,C REDITED L mg/dL Magnesium SerPl-mCnc (10-05-2016 03:15) Magnesi TCON 1.9-2.4 complet um 017 Multipl ed SerPl-m 03:15 e SCM Cnc orders. Tests consoli dated. 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 pg/mL ed SerPl-m 02:30 Cnc Magnesium SerPl-mCnc (10-03-2016 02:30) Magnesi 2.2 1.9-2.4 complet um 017 mg/dL ed SerPl-m 02:30 Cnc MDRO Wnd (09-30-2016 22:55) Bacteri [id number] complet a XXX 017 01 ed Anaerob 22:55 Methici e+Aerob llin e Cult resista nt Staphyl ococcus aureus (organi sm) SCT MRSA1 (MRSA) L Bacteri [id number] complet a XXX 017 ed Anaerob 22:55 Staphyl e+Aerob ococcus e Cult aureus (organi sm) SCT SAUR STAPHYL OCOCCUS AUREUS L CC XXX NOTAP complet VC-aCnc 017 NOT ed 22:55 APPLICA BLE L Bacteria XXX Anaerobe+Aerobe Cult (09-30-2016 12:10) Bacteri [id number] complet a XXX 017 06 No ed Anaerob 12:10 growth e+Aerob (qualif e Cult ier value) SCT NGB6 NO GROWTH DAY 5. 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 ed SerPl-m 12:10 Cnc TSH SerPl DL<=0.005 mIU/L-aCnc (09-30-2016 12:10) TSH 4.82 0.4-4.2 complet SerPl 017 uIU/mL ed DL<=0.0 12:10 05 mIU/L-a Cnc T4 Free SerPl-mCnc (09-30-2016 12:10) T4 Free 1.7 0.8-1.7 complet 017 ng/dL ed SerPl-m 12:10 Cnc CK SerPl-cCnc (09-30-2016 12:10) CK 415 U/L 37-168 complet SerPl-c 017 ed Cnc 12:10 Magnesium SerPl-mCnc (09-30-2016 12:10) Magnesi 2.5 1.9-2.4 complet um 017 mg/dL ed SerPl-m 12:10 Cnc Osmolality SerPl (09-30-2016 12:10) Osmolal 325 280-301 complet ity 017 mOsm/kg ed SerPl 12:10 STREP SCREEN (RAPID) (04-29-2013 08:24) STREP NEGATIV complet SCREEN 013 E ed (RAPID) 08:24 COMPREHENSIVE METABOLIC PANEL (01-16-2013 07:55) Glucose 01-16- 105 74-106 complet 013 mg/dL ed Bld-mCn 07:55 c BUN 28 7-18 complet Bld-mCn 013 mg/dL ed c 07:55 Creat 1.5 0.6-1.0 complet SerPl-m 013 mg/dL ed Cnc 07:55 ESTIMAT 2 46 50-200 complet ED 013 ML/MIN ed CREATIN 07:55 INE CLEARAN CE GFR 01-16-2 34 59- complet (ESTIMA 013 ML/MIN ed ALEX) 07:55 Sodium 01-16-2 139 136-145 complet SerPl-s 013 mmoL/L ed Cnc 07:55 Potassi 01-16-2 4.4 3.5-5.1 complet um 013 mmoL/L ed SerPl-s 07:55 Cnc Chlorid 01-16-2 106 98-107 complet e 013 mmoL/L ed SerPl-s 07:55 Cnc CO2 01-16-2 23 21.0-32 complet SerPl-s 013 mmoL/L .0 ed Cnc 07:55 Calcium 01-16-2 8.5 8.5-10. complet 013 mg/dL 1 ed SerPl-m 07:55 Cnc Prot 01-16-2 7.6 6.4-8.2 complet SerPl-m 013 gm/dL ed Cnc 07:55 Albumin 01-16-2 3.7 3.4-5.0 complet 013 gm/dL ed SerPl-m 07:55 Cnc Globuli 01-16-2 3.9 1.3-3.2 complet n 013 gm/dL ed Ser-mCn 07:55 c Albumin 01-16-2 0.9 UNK 1.1-1.8 complet /Glob 013 ed SerPl-m 07:55 Rto Bilirub 01-16-2 0.4 0.2-1.0 complet 013 mg/dL ed SerPl-m 07:55 Cnc AST 01-16-2 7 U/L 15-37 complet SerPl-c 013 ed Cnc 07:55 ALT 01-16-2 27 U/L 30-65 complet SerPl-c 013 ed Cnc 07:55 ALP 01-16-2 112 U/L 50-136 complet SerPl-c 013 ed Cnc 07:55 D Dimer PPP (01-16-2013 07:55) D Dimer 01-16-2 739 0-400 High complet PPP 013 ng/mL alert ed 07:55 CBC with AUTO DIFF (01-16-2013 07:55) WBC # 07-31-2 8.8 4.8-10. complet Bld 013 K/MM3 8 ed Auto 07:55 RBC # 31-2 4.25 4.2-5.4 complet Bld 013 M/mm3 ed Auto 07:55 Hgb 07-31-2 12.7 12.2-16 complet Bld-mCn 013 g/dL .2 ed c 07:55 Hct Fr 31-2 38.8 % 37.0-47 complet Bld 013 .0 ed 07:55 MCV RBC 31-2 91.4 fl 82.2-97 complet 013 .8 ed 07:55 MCH RBC 31-2 30.0 pg 27-31.2 complet Qn 013 ed Auto 07:55 MEAN 0731-2 32.8 31.8-35 complet CORPUSC 013 g/dl .4 ed ULAR 07:55 HGB CONC RDW RBC 31-2 14.3 % 11.5-17 complet Auto 013 .5 ed 07:55 Platele 07-31-2 252 142-424 complet t Bld 013 K/mm3 ed Ql 07:55 Manual MEAN 31-2 8.4 fl 7.4-10. complet PLATELE 013 4 ed T 07:55 VOLUME Granulo -31-2 72.0 % 37.0-80 complet cytes 013 .0 ed Fr Bld 07:55 Auto LYMPH % 07-31-2 18.7 % 10-50.0 complet 013 ed 07:55 Monocyt 07-31-2 5.0 % 1.7-9.3 complet es Fr 013 ed Bld 07:55 Auto Eosinop 07-31-2 3.8 % 0.1-12. complet hil Fr 013 0 ed Bld 07:55 Auto Basophi 07-31-2 0.4 % 0.1-2.0 complet ls Fr 013 ed Bld 07:55 Auto Granulo 07-31-2 6.3 1.8-7.8 complet cytes # 013 K/mm3 ed Bld 07:55 Auto Lymphoc 07-31-2 1.7 0.7-4.5 complet ytes Fr 013 K/mm3 ed Bld 07:55 Auto Monocyt 07-31-2 0.4 0.1-1.0 complet es # 013 K/mm3 ed Bld 07:55 Auto Eosinop 07-31-2 0.3 0.0-0.4 complet hil # 013 K/mm3 ed Bld 07:55 Auto Basophi 07-31-2 0.0 0-0.2 [facility] # 013 K/MM3 ed Bld 07:55 Auto Procedures Procedure DOS Code Location Performer Comment SBSQ 91693 [facility] 7 PHYSICIAN CARE/DAY S GROUP 25 MINUTES INITIAL 13543 [facility] 7 PHYSICIAN CARE/DAY S GROUP 70 MINUTES ECG 32057 ZACK BARRETO JR ROUTINE 7 [facility] W/LEAST P 12 LDS I&R ONLY GROUND A0425 [facility] MILEAGE 7 AMBULANCE AMBULANCE PER SERVICE SERVICE STATUTE MILE AMBULANCE A0429 [facility] 7 AMBULANCE AMBULANCE BLS SERVICE SERVICE EMERGENCY TRANSPORT DILAT [id number] ZACK DIXON CORONARY 7 [facility] ART 2 ART INC INC 2 RX-ELUT [place] DEVC PERQ FLUORO [id number] ZACK DIXON MULTI 7 [facility] CORONARY INC INC ARTERIES LOW OSMOLAR CONT FLUOROSCO [id number] ZACK DIXON PY LEFT 7 [facility] HEART LOW INC INC OSMOLAR CONTRAST FLUORO [id number] ZACK DIXON BILATERAL 7 [facility] RENAL INC INC ART LOW OSMOLAR CONTRST MEASUREME [id number] ZACK DIXON NT 7 [facility] CARDIAC INC INC SAMPLING PRESS LT HEART PERQ LIPID 92437 ZACK DIXON PANEL 6 [facility] INC INC COMPREHEN 72151 ZACK DIXON SIVE 6 [facility] METABOLIC INC INC PANEL COLLECTIO 03758 ZACK DIXON N VENOUS 6 [facility] [place] [address] ZACK DIXON THYROID 6 [facility] STIMULATI INC INC NG HORMONE TSH HEMOGLOBI 66500 ZACK DIXON N 6 [facility] GLYCOSYLA INC INC ALEX A1C 25 31558 COMBINED COMBINED HYDROXY 6 PHYSICIAN PHYSICIAN INCLUDES S LA S LA FRACTIONS IF PERFORMED BLOOD 77244 COMBINED COMBINED COUNT 6 PHYSICIAN PHYSICIAN COMPLETE S LA S LA AUTO&AUTO DIFRNTL WBC URNLS DIP 52693 COMBINED COMBINED 6 PHYSICIAN PHYSICIAN STICK/TAB S LA S LA LET REAGENT AUTO MICROSCOP Y VOLUME 99207 COMBINED COMBINED MEASUREME 6 PHYSICIAN PHYSICIAN NT TIMED S LA S LA COLLECTIO N EACH RENAL 80952 COMBINED COMBINED FUNCTION 6 PHYSICIAN PHYSICIAN PANEL S LA S LA CULTURE 56949 COMBINED COMBINED BCT 6 PHYSICIAN PHYSICIAN ISOL&PRSM S LA S LA PTV ID ISOLATE EA URINE CULTURE 03859 COMBINED COMBINED BACTERIAL 6 PHYSICIAN PHYSICIAN S LA S LA QUANTTATI VE COLONY COUNT URINE BLD GLU A4253 ARRIVA ARRIVA TEST/REAG 6 MEDICAL MEDICAL T STRIPS HOME BLD GLU MON-50 NORMAL A4256 ARRIVA ARRIVA LOW AND 6 MEDICAL MEDICAL HIGH CALIBRATO R SOLUTION/ CHIPS LANCETS A4259 ARRIVA ARRIVA PER BOX 6 MEDICAL MEDICAL OF 100 [facility] A4258 ARRIVA ARRIVA WERED 6 MEDICAL MARKING CLERK FOR LANCET EACH BASIC 27342 ZACK DIXON METABOLIC 6 [facility] PANEL INC [facility] G0378 ZACK DIXON OBSERVATI 6 [facility] ON INC INC SERVICE PER HOUR GLUC BLD 99613 ZACK DIXON GLUC MNTR 6 [facility] DEV INC INC CLEARED FDA SPEC HOME USE COLLECTIO 97117 ZACK DIXON N VENOUS 6 [facility] BLOOD INC INC VENIPUNCT URE COLLECTIO 13105 ZACK DIXON N VENOUS 6 [facility] BLOOD INC INC VENIPUNCT URE URNLS DIP 63319 ZACK DIXON 6 [facility] STICK/TAB INC INC LET REAGENT AUTO MICROSCOP Y GROUND A0425 [facility] PER SERVICE SERVICE STATUTE MILE PRESSURIZ 80172 ZACK DIXON ED/NONPRE 6 [facility] SSURIZED INC INC INHALATIO N TREATMENT CREATINE 17119 ZACK DIXON KINASE MB 6 [facility] FRACTION INC INC ONLY COMPREHEN 08281 ZACK DIXON SIVE 6 [facility] METABOLIC INC INC PANEL GLUC BLD 03495 ZACK DIXON GLUC MNTR 6 [facility] DEV INC INC CLEARED FDA SPEC HOME USE THER 46186 ZACK DIXON PROPH/DX 6 [facility] NJX IV INC INC PUSH SINGLE/1S T SBST/DRUG ECG 04550 ZACK MCLEAN ROUTINE [address] [facility] W/LEAST P 12 LDS [place] [address] ZACK DIXON TROPONIN 6 [facility] QUANTITAT INC INC [facility] G0378 ZACK DIXON OBSERVATI 6 [facility] ON INC INC SERVICE PER HOUR AMB A0427 [facility] SERVICE 6 AMBULANCE AMBULANCE ALS SERVICE SERVICE EMERGENCY TRANSPORT LEVEL 1 BLOOD 61107 ZACK DIXON COUNT 6 [facility] COMPLETE INC INC AUTO&AUTO DIFRNTL WBC ECG 19862 ZACK DIXON ROUTINE 6 [facility] ECG INC INC W/LEAST 12 LDS TRCG ONLY W/O I&R CREATINE 41745 ZACK DIXON KINASE 6 [facility] TOTAL INC INC HOS BED E0260 REID REID SEMI-ELEC 6 HOME HOME W/ANY MEDICAL MEDICAL TYPE SIDE EQUIPME EQUIPME RAIL W/MATTRSS STANDARD K0001 REID MATHEWS WHEELCHAI 6 HOME HOME R MEDICAL MEDICAL EQUIPME EQUIPME STANDARD K0001 REID REID WHEELCHAI 6 HOME HOME R MEDICAL MEDICAL EQUIPME EQUIPME HOS BED E0260 REID REID SEMI-ELEC 6 HOME HOME W/ANY MEDICAL MEDICAL TYPE SIDE EQUIPME EQUIPME RAIL W/MATTRSS HOS BED E0260 REID REID SEMI-ELEC 6 HOME HOME W/ANY MEDICAL MEDICAL TYPE SIDE EQUIPME EQUIPME RAIL W/MATTRSS STANDARD K0001 REID REID WHEELCHAI 6 HOME HOME R MEDICAL MEDICAL EQUIPME EQUIPME LANCETS A4259 ARRIVA ARRIVA PER BOX 6 MEDICAL MEDICAL OF 100 NORMAL A4256 ARRIVA ARRIVA LOW AND 6 MEDICAL MEDICAL HIGH CALIBRATO R SOLUTION/ CHIPS BLD GLU A4253 ARRIVA ARRIVA TEST/REAG 6 MEDICAL MEDICAL T STRIPS HOME BLD GLU MON-50 STANDARD K0001 REID DELGADILLOCHAI 6 HOME HOME R MEDICAL MEDICAL EQUIPME EQUIPME HOS BED E0260 REID MATHEWS SEMI-ELEC 6 HOME HOME W/ANY MEDICAL MEDICAL TYPE SIDE EQUIPME EQUIPME RAIL W/MATTRSS COLLECTIO 02556 ZCAK DIXON N VENOUS 6 [facility] BLOOD INC INC VENIPUNCT URE LIPID 49206 ZACK DIXON PANEL 6 [facility] INC INC BASIC 34073 ZACK DIXON METABOLIC 6 [facility] PANEL INC INC CALCIUM TOTAL HEMOGLOBI 30785 ZACK DIXON N 6 [facility] GLYCOSYLA INC INC ALEX A1C STANDARD K0001 REID CHAUDHARII 6 HOME HOME R MEDICAL MEDICAL EQUIPME EQUIPME HOS BED E0260 REID MATHEWS SEMI-ELEC 6 HOME HOME W/ANY MEDICAL MEDICAL TYPE SIDE EQUIPME EQUIPME RAIL W/MATTRSS URNLS DIP 69791 ZACK DIXON 6 [facility] STICK/TAB INC INC LET REAGENT AUTO MICROSCOP Y STANDARD K0001 REID CHAUDHARII 6 HOME HOME R MEDICAL MEDICAL EQUIPME EQUIPME HOS BED E0260 REID GLASSRELL SEMI-ELEC 6 HOME HOME W/ANY MEDICAL MEDICAL TYPE SIDE EQUIPME EQUIPME RAIL W/MATTRSS LANCETS A4259 ARRIVA ARRIVA PER BOX 6 MEDICAL MEDICAL OF 100 REPL KIM A4233 ARRIVA ARRIVA ALKALINE 6 MEDICAL MEDICAL NOT J CELL [place] BG MON OWND PT BLD GLU A4253 ARRIVA ARRIVA TEST/REAG 6 MEDICAL MEDICAL T STRIPS HOME BLD GLU MON-50 NORMAL A4256 ARRIVA ARRIVA LOW AND 6 MEDICAL MEDICAL HIGH CALIBRATO R SOLUTION/ CHIPS GLUC BLD 03977 ZACK DIXON GLUC MNTR 6 [facility] DEV INC INC CLEARED FDA SPEC HOME USE [facility] G0378 ZACK DIXON OBSERVATI 6 [facility] ON INC INC SERVICE PER HOUR OBSERVATI 49650 [facility] 6 [facility] DISCHARGE INTERNAL MEDI MANAGEMEN T BLOOD 40171 ZACK DIXON COUNT 6 [facility] COMPLETE INC INC AUTO&AUTO DIFRNTL [facility] G0378 ZACK DIXON OBSERVATI 6 [facility] ON INC INC SERVICE PER HOUR BASIC 09194 ZACK DIXON METABOLIC 6 [facility] PANEL INC INC CALCIUM TOTAL GLUC BLD 25725 ZACK DIXON GLUC MNTR 6 [facility] DEV INC [place] [address] ZACK DIXON TROPONIN 6 [facility] QUANTITAT INC INC [place] COLLECTIO 23641 ZACK DIXON N VENOUS 6 [facility] BLOOD INC INC VENIPUNCT URE COLLECTIO 82770 ZACK DIXON N VENOUS 6 [facility] BLOOD INC INC VENIPUNCT URE URNLS DIP 06600 ZACK DIXON 6 [facility] STICK/TAB INC INC LET REAGENT AUTO MICROSCOP Y INJECTION J2405 ZACK DIXON 6 [facility] ONDANSETR INC INC ON HCL PER 1 MG GROUND A0425 [facility] AM[place]UL[facility] [place] [address] ZACK DIXON INFUSION 6 [facility] THERAPY/P INC INC ROPHYLAXI S /DX 1ST TO 1 HR THERAPEUT 79094 ZACK DIXON IC 6 [facility] INJECTION INC INC IV PUSH EACH NEW DRUG INITIAL 15939 [facility] VINAY OBSERVATI [address] [place] [address] ON INTERNAL CARE/DAY MED 30 MINUTES COMPREHEN 14759 ZACK DIXON SIVE 6 [facility] METABOLIC INC INC PANEL CREATINE 43049 ZACK DIXON KINASE MB 6 [facility] [place] [address] ZACK DIXON TROPONIN 6 [facility] QUANTITAT INC INC MARIBEL ECG 53659 ZACK BARRETO JR ROUTINE 6 [facility] W/LEAST P 12 LDS I&R ONLY GLUC BLD 31321 ZACK DIXON GLUC MNTR 6 [facility] DEV INC INC CLEARED FDA SPEC HOME USE [facility] G0378 ZACK DIXON OBSERVATI 6 [facility] ON INC INC SERVICE PER HOUR BLOOD 68903 ZACK DIXON COUNT 6 [facility] COMPLETE INC INC AUTO&AUTO DIFRNTL WBC AMB A0427 [facility] HERNANDE[facility] SERVICE 6 AMBULANCE AMBULANCE ALS SERVICE SERVICE [place] [address] [facility] RODRIGUEZ ALL HEAD/BRAI 6 MEDICAL N W/O IMAGING CONTRAST ASS MATERIAL RADIOLOGI [address]63 [place] RODRIGUEZ ALL C 6 MEDICAL EXAMINATI IMAGING ON [place] [address] ZACK DIXON LIPASE 6 [facility] INC INC CREATINE 82520 ZACK DIXON KINASE 6 [facility] TOTAL INC INC ECG 60856 ZACK DIXON ROUTINE 6 [facility] ECG INC INC W/LEAST 12 LDS TRCG ONLY W/O I&[place] [address] COMBINED COMBINED PHOSPHORU 6 PHYSICIAN PHYSIC[place] [address] COMBINED COMBINED BLOOD/URI 6 PHYSICIAN PHYSICIAN C ACID S LA S LA CYANOCOBA 68654 COMBINED COMBINED SOHA 6 PHYSICIAN PHYSICIAN VITAMIN S LA S LA B-12 [place] [address] COMBINED COMBINED MAGNESIUM 6 PHYSICIAN PHYSICIAN S LA S LA BLOOD 27460 COMBINED COMBINED COUNT 6 PHYSICIAN PHYSICIAN COMPLETE S LA S LA AUTO&AUTO DIFRNTL WBC BASIC 64455 COMBINED COMBINED METABOLIC 6 PHYSICIAN PHYSICIAN PANEL S LA S LA CALCIUM TOTAL ALBUMIN 40554 COMBINED COMBINED SERUM 6 PHYSICIAN PHYSICIAN PLASMA/[place] [address] COMBINED COMBINED THYROID 6 PHYSICIAN PHYSICIAN STIMULATI S LA S LA NG HORMONE TSH STANDARD K0001 REID MATHEWS WHEELCHAI 6 HOME HOME R MEDICAL MEDICAL EQUIPME EQUIPME HOS BED E0260 REID MATHEWS SEMI-ELEC 6 HOME HOME W/ANY MEDICAL MEDICAL TYPE SIDE EQUIPME EQUIPME RAIL W/MATTRSS PHYS G0179 [facility] KESHAWNSON RE-CERT 6 [facility] MCR-COVR INTERNAL [facility] SRVC RE-CERT PRD BLOOD 34342 ZACK DIXON COUNT 6 [facility] COMPLETE INC INC AUTO&AUTO DIFRNTL WBC GLUC BLD 00894 ZACK DIXON GLUC MNTR 6 [facility] DEV INC INC CLEARED FDA SPEC HOME USE URNLS DIP 43119 ZACK DIXON 6 [facility] STICK/TAB INC INC LET REAGENT AUTO MICROSCOP Y COMPREHEN 43144 ZACK DIXON SIVE 6 [facility] METABOLIC INC INC PANEL GROUND A0425 [facility] MILEAGE 6 AMBULANCE AMBULANCE PER SERVICE SERVICE STATUTE MILE AMBULANCE A0429 [facility] SERVICE 6 AMBULANCE AMBULANCE BLS SERVICE SERVICE EMERGENCY TRANSPORT SBSQ 17827 [facility] 6 [facility] FACIL INTERNAL CARE/DAY MED NEW PROBLEM 25 MIN SBSQ 06366 [facility]MAN [facility] 6 [facility] INTERNAL CARE/DAY MEDI MINOR COMPLJ 15 MIN STANDARD K0001 REID CHAUDHARII 6 HOME HOME R MEDICAL MEDICAL EQUIPME EQUIPME HOS BED E0260 REID GLASSRELL SEMI-ELEC 6 HOME HOME W/ANY MEDICAL MEDICAL TYPE SIDE EQUIPME EQUIPME RAIL W/MATTRSS RADEX 08304 SYMPHONY SYMPHONY SPINE 6 MOBILEX MOBILEX CERVICAL 2 OR 3 VIEWS RADEX 19811 SYMPHONY SYMPHONY SPINE 6 MOBILEX MOBILEX THORACIC 2 VIEWS SBSQ 43325 [facility] 6 [facility] INTERNAL CARE/DAY MED NEW PROBLEM 25 MIN STANDARD K0001 REID CHAUDHARII 5 HOME HOME R MEDICAL MEDICAL EQUIPME EQUIPME HOS BED E0260 REID REID SEMI-ELEC 5 HOME HOME W/ANY MEDICAL MEDICAL TYPE SIDE EQUIPME EQUIPME RAIL W/MATTRSS SUSCEPTIB 27579 ZACK ZACK LTY STDY 5 [facility] ANTIMICRB INC INC IAL MICRO/AGA R DILUTJ CULTURE 15905 ZACK DIXON BACTERIAL 5 [facility] INC INC QUANTTATI VE COLONY COUNT URINE URNLS DIP 82234 ZACK DIXON 5 [facility] STICK/TAB INC INC LET REAGENT AUTO MICROSCOP Y COMPREHEN 05915 ZACK DIXON SIVE 5 [facility] METABOLIC INC INC PANEL GROUND A0425 [facility] MILEAGE 5 AMBULANCE AMBULANCE PER SERVICE SERVICE STATUTE MILE PRESSURIZ 16441 ZACK DIXON ED/NONPRE 5 [facility] SSURIZED INC INC INHALATIO N TREATMENT AMB A0427 [facility] SERVICE 5 AMBULANCE AMBULANCE ALS SERVICE SERVICE EMERGENCY TRANSPORT LEVEL 1 BLOOD 12760 ZACK ZACK COUNT 5 [facility] COMPLETE INC INC AUTO&AUTO DIFRNTL WBC NATRIURET 18803 ZACK DIXON IC 5 [facility] PEPTIDE INC INC RADIOLOGI 23482 ZACK DIXON C EXAM 5 [facility]OS[facility] CHEST 2 INC INC VIEWS FRONTAL&L ATERAL STANDARD K0001 REID CHAUDHARII 5 HOME HOME R MEDICAL MEDICAL EQUIPME EQUIPME HOS BED E0260 REID MATHEWS SEMI-ELEC 5 HOME HOME W/ANY MEDICAL MEDICAL TYPE SIDE EQUIPME EQUIPME RAIL W/MATTRSS SBSQ 53504 [facility] 5 CULAR MAT CARE/DAY CONSULTAN 25 TS O MINUTES INITIAL 98469 [facility] 5 CULAR MAT CARE/DAY CONSULTAN 70 TS O MINUTES ECHO 81323 [facility] TRANSTH[facility] 5 MEDICAL JUAN J C R-T 2D SERV W/WO FOUNDATIO M-MODE N REC F-UP/LMTD RADIOLOGI 54100 [place] SHERI C EXAM 5 MEDICAL MELIDA CHEST 2 IMAGING VIEWS ASS FRONTAL&L ATERAL STANDARD K0001 REID CHAUDHARII 5 HOME HOME R MEDICAL MEDICAL EQUIPME EQUIPME HOS BED E0260 REID GLASSRELL SEMI-ELEC 5 HOME HOME W/ANY MEDICAL MEDICAL TYPE SIDE EQUIPME EQUIPME RAIL W/MATTRSS THERAPEUT 99218 ZACK DIXON IC PX 1/> 5 [facility] INC EACH 15 MIN EXERCISES BLD GLU A4253 ARRIVA ARRIVA TEST/REAG 5 MEDICAL MEDICAL T STRIPS HOME BLD GLU MON-50 NORMAL A4256 ARRIVA ARRIVA LOW AND 5 MEDICAL MEDICAL HIGH CALIBRATO R SOLUTION/ CHIPS LANCETS A4259 ARRIVA ARRIVA PER BOX 5 MEDICAL MEDICAL OF 100 URNLS DIP 41740 ZACK CALDERON 5 [facility] LET RGNT P NON-AUTO W/O MICRSCP THERAPEUT 71006 ZACK DIXON IC PX 1/> 5 [facility] EACH 15 MIN EXERCISES STANDARD K0001 REID MATHEWS WHEELCHAI 5 HOME HOME R MEDICAL MEDICAL EQUIPME EQUIPME HOS BED E0260 REID MATHEWS SEMI-ELEC 5 HOME HOME W/ANY MEDICAL MEDICAL TYPE SIDE EQUIPME EQUIPME RAIL W/MATTRSS THERAPEUT 20515 ZACK DIXON IC PX 1/> 5 [facility] EACH 15 MIN EXERCISES THERAPEUT 15527 ZACK DIXON IC PX 1/> 5 [facility] EACH 15 MIN EXERCISES BLOOD 85129 ZACK DIXON COUNT 5 [facility] COMPLETE INC INC AUTO&AUTO DIFRNTL WBC HEMOGLOBI 77305 ZACK DIXON N 5 [facility] GLYCOSYLA [place] [address] ZACK DIXON THYROID 5 [facility] STIMULATI INC INC NG HORMONE TSH URNLS DIP 11398 ZACK DIXON 5 [facility] STICK/TAB INC INC LET REAGENT AUTO MICROSCOP Y COLLECTIO 88345 ZACK DIXON N VENOUS 5 [facility] BLOOD INC INC VENIPUNCT URE RENAL 04289 ZACK DIXON FUNCTION 5 [facility] PANEL INC INC SUSCEPTIB 05864 ZACK DIXON LTY STDY 5 [facility] ANTIMICRB INC INC IAL MICRO/AGA R DILUTJ 25 23743 ZACK DIXON HYDROXY 5 [facility] INCLUDES INC INC FRACTIONS IF PERFORMED CULTURE 97342 ZACK DIXON BACTERIAL 5 [facility] INC INC QUANTTATI VE COLONY COUNT URINE CULTURE 08093 ZACK DIXON BCT 5 [facility] ISOL&PRSM INC INC PTV ID ISOLATE EA URINE THERAPEUT 22484 ZACK DIXON IC PX 1/> 5 [facility] INC EACH 15 MIN EXERCISES THERAPEUT 70386 ZACK DIXON IC PX 1/> 5 [facility] INC EACH 15 MIN EXERCISES THERAPEUT 97973 ZACK DIXON IC PX 1/> 5 [facility] INC EACH 15 MIN EXERCISES THERAPEUT 24123 ZACK DIXON IC PX 1/> 5 [facility] INC EACH 15 MIN EXERCISES CATH CLCT P9612 ZACK CALDERON SPECIMEN 5 [facility] PT ALL P PLACES SERVICE PHYSICAL 75756 ZACK DIXON THERAPY 5 [facility] EVALUATIO INC INC N URNLS DIP 33487 ZACK CALDERON 5 [facility] LET RGNT P NON-AUTO W/O MICRSCP CULTURE 10224 ZACK DIXON BCT 5 [facility] ISOL&PRSM INC INC PTV ID ISOLATE EA URINE CULTURE 25032 ZACK DIXON BACTERIAL 5 [facility] INC INC QUANTTATI VE COLONY COUNT URINE SUSCEPTIB 33163 ZACK DIXON LTY STDY 5 [facility] ANTIMICRB INC INC IAL MICRO/AGA R DILUTJ HOS BED E0260 REID MATHEWS SEMI-ELEC 5 HOME HOME W/ANY MEDICAL MEDICAL TYPE SIDE EQUIPME EQUIPME RAIL W/MATTRSS COMMODE E0163 REID MATHEWS CHAIR 5 HOME HOME MOBILE OR MEDICAL MEDICAL EQUIPME EQUIPME STATIONAR Y W/FIXED ARMS STANDARD K0001 REID MATHEWS WHEELCHAI 5 HOME HOME R MEDICAL MEDICAL EQUIPME EQUIPME ONELIA 47572 ZACK CALDERON POST-VOID 5 [facility] RESIDUAL P URINE&/BL ADDER CAP SUSCEPTIB 48030 ZACK DIXON LTY STDY 5 [facility] ANTIMICRB INC INC IAL MICRO/AGA R DILUTJ CULTURE 37603 ZACK DIXON BACTERIAL 5 [facility] INC INC QUANTTATI VE COLONY COUNT URINE CULTURE 79005 ZACK DIXON BCT 5 [facility] ISOL&PRSM INC INC PTV ID ISOLATE EA URINE RADIOLOGI 24282 SYMPHONY SYMPHONY C 5 MOBILEX MOBILEX EXAMINATI ON CHEST SINGLE VIEW FRONTAL RADIOLOGI 58618 SYMPHONY SYMPHONY C 5 MOBILEX MOBILEX EXAMINATI ON CHEST SINGLE VIEW FRONTAL DEBRIDEME 43693 [facility] 5 ARE ANDREZ ANY METHOD 6/> INITIAL 55695 [facility] N[facility] 5 ARE ANDREZ FACILITY CARE/DAY 25 MINUTES SBSQ 97164 [facility] C[facility]/DAY MED NEW PROBLEM 25 MIN BASIC 02978 COMBINED COMBINED METABOLIC 5 PHYSICIAN PHYSICIAN PANEL S LA S LA CALCIUM TOTAL BLOOD 49824 COMBINED COMBINED COUNT 5 PHYSICIAN PHYSICIAN COMPLETE S LA S LA AUTO&[place] [address] [place] [facility] ABD[facility] 5 MEDICAL KAY REAL IMAGING TIME ASS W/[place] [address] [place] [facility] ABDOMEN & 5 MEDICAL MELIDA PELVIS IMAGING W/O ASS CONTRAST MATERIAL ECG 19201 ZACK MCLEAN ROUTINE [address] [facility] W/LEAST P 12 LDS I&R ONLY CRITICAL 50970 [facility] CARE 5 [facility] ED P P PATIENT INIT 30-74 MIN RADIOLOGI 34547 [place] RODRIGUEZ ALL C 5 MEDICAL EXAMINATI IMAGING ON CHEST ASS SINGLE VIEW FRONTAL RADEX 08051 [facility] MASTOIDS 5 MEDICAL KAY COMPL IMAGING MINIMUM 3 ASS VIEWS ME SIDE RADEX 83286 [facility] SPINE 5 MEDICAL KAY CERVICAL IMAGING 4 OR 5 ASS VIEWS SPRING- [id number] ARRIVA ARRIVA WERED 5 MEDICAL MARKING CLERK FOR LANCET EACH NORMAL A4256 ARRIVA ARRIVA LOW AND 5 MEDICAL MEDICAL HIGH CALIBRATO R SOLUTION/ CHIPS LANCETS A4259 ARRIVA ARRIVA PER BOX 5 MEDICAL MEDICAL OF 100 BLD GLU A4253 ARRIVA ARRIVA TEST/REAG 5 MEDICAL MEDICAL T STRIPS HOME BLD GLU MON-50 COMPREHEN 46906 COMBINED COMBINED SIVE 5 PHYSICIAN PHYSICIAN METABOLIC S LA S LA PANEL RENAL 00117 ZACK DIXON FUNCTION 5 [facility] PANEL INC INC COLLECTIO 08012 ZACK DIXON N VENOUS 5 [facility] BLOOD INC INC VENIPUNCT URE INJECTION J0897 ZACK ZACK 5 [facility] DENOSUMAB INC INC 1 MG THERAPEUT 10780 ZACK DIXON IC 5 [facility] PROPHYLAC INC INC TIC/DX INJECTION SUBQ/IM PROTEIN 89782 ZACK DIXON XCPT 4 [facility] REFRACTOM INC INC ETRY SERUM PLASMA/WH L BLD BLOOD 97298 ZACK DIXON COUNT 4 [facility] COMPLETE INC INC AUTO&AUTO DIFRNTL WBC URNLS DIP 25242 ZACK DIXON 4 [facility] STICK/TAB INC INC LET REAGENT AUTO MICROSCOP Y COLLECTIO 58593 ZACK DIXON N VENOUS 4 [facility] BLOOD INC INC VENIPUNCT URE CREATININ 49378 ZACK DIXON E OTHER 4 [facility] SOURCE INC INC RENAL 03561 ZACK DIXON FUNCTION 4 [facility] PANEL INC INC DXA BONE 59851 [place] [facility] DENSITY 4 MEDICAL MELIDA STUDY 1/> [place] S[place] [address] ZACK DIXON PARATHORM 4 [facility] ONE INC INC SUSCEPTIB 74682 ZACK DIXON LTY STDY 4 [facility] ANTIMICRB INC INC IAL MICRO/AGA R DILUTJ 25 06176 ZACK DIXON HYDROXY 4 [facility] INCLUDES INC INC FRACTIONS IF PERFORMED CULTURE 83985 ZACK DIXON BACTERIAL 4 [facility] INC INC QUANTTATI VE COLONY COUNT URINE CULTURE 69541 ZACK DIXON BCT 4 [facility] ISOL&PRSM INC INC PTV ID ISOLATE EA URINE COMPREHEN 63132 COMBINED COMBINED SIVE 4 PHYSICIAN PHYSICIAN METABOLIC S LA S LA PANEL CREATINE 51887 ZACK DIXON KINASE MB 4 [facility] FRACTION INC INC ONLY COMPREHEN 29090 ZACK DIXON SIVE 4 [facility] METABOLIC INC INC PANEL PRESSURIZ 73615 ZACK DIXON ED/NONPRE 4 [facility] SSURIZED INC INC INHALATIO N TREATMENT URNLS DIP 56056 ZACK ZACK 4 [facility] STICK/TAB INC INC LET REAGENT AUTO MICROSCOP Y BLOOD 30166 ZACK DIXON COUNT 4 [facility] COMPLETE INC INC AUTO&[place] [address] ZACK DIXON TROPONIN 4 [facility] QUANTITAT INC INC MARIBEL RADIOLOGI 63538 ZACK DIXON C EXAM 4 [facility] CHEST 2 INC INC VIEWS FRONTAL&L ATERAL CREATINE 10818 ZACK DIXON KINASE 4 [facility] TOTAL INC INC 25 68433 ZACK DIXON HYDROXY 4 [facility] INCLUDES INC INC FRACTIONS IF PERFORMED BLOOD 96821 ZACK DIXON COUNT 4 [facility] COMPLETE INC INC AUTO&AUTO DIFRNTL WBC COLLECTIO 34714 ZACK DIXON N VENOUS 4 [facility] BLOOD INC INC VENIPUNCT URE RENAL 80153 ZACK DIXON FUNCTION 4 [facility] PANEL INC INC INJECTION J0897 ZACK DIXON 4 [facility] DENOSUMAB INC INC 1 MG THERAPEUT 93343 ZACK DIXON IC 4 [facility] PROPHYLAC INC INC TIC/DX INJECTION SUBQ/IM BASIC 58272 COMBINED COMBINED METABOLIC 4 PHYSICIAN PHYSICIAN PANEL S LA S LA CALCIUM TOTAL COMPREHEN 55404 COMBINED COMBINED SIVE 4 PHYSICIAN PHYSICIAN METABOLIC S LA S LA PANEL COLLECTIO 27782 ZACK DIXON N VENOUS 4 [facility] BLOOD INC INC VENIPUNCT URE BASIC 36074 ZACK DIXON METABOLIC 4 [facility] PANEL INC INC CALCIUM TOTAL INJECTION J0897 ZACK DIXON 4 [facility] DENOSUMAB INC INC 1 MG THERAPEUT 27323 ZACK DIXON IC 4 [facility] PROPHYLAC INC INC TIC/DX INJECTION SUBQ/IM ARTHROCEN 23541 [facility] TESIS 3 PHYSICIAN JAM ASPIR&/IN S GROUP J MAJOR JT/BURSA W/O US INJECTION 35364 [facility] 1 TENDON 3 PHYSICIAN PHYSICIAN S GROUP S GROUP SHEATH/LI GAMENT APONEUROS IS INJ J0702 [facility] BETAMETHA 3 PHYSICIAN TONI SONE S GROUP ACETATE & PHOSPHATE 3 MG 25 86840 ZACK DIXON HYDROXY 3 [facility] INCLUDES INC [place] [address] ZACK DIXON PARATHORM 3 [facility] ONE INC INC DXA BONE 30926 [place] [facility] DENSITY 3 MEDICAL MELIDA STUDY 1/> IMAGING SITES ASS AXIAL SKEL RENAL 92683 ZACK DIXON FUNCTION 3 [facility] PANEL INC INC URNLS DIP 07357 ZACK DIXON 3 [facility] STICK/TAB INC INC LET REAGENT AUTO MICROSCOP Y COLLECTIO 83029 ZACK DIXON N VENOUS 3 [facility] BLOOD INC INC VENIPUNCT URE BASIC 32459 COMBINED COMBINED METABOLIC 3 PHYSICIAN PHYSICIAN PANEL S LA S LA CALCIUM TOTAL ALBUMIN 02612 ZACK DIXON URINE 3 [facility] MICROALBU INC INC MIN QUANTIATI VE BLOOD 48481 ZACK DIXON COUNT 3 [facility] COMPLETE INC INC AUTO&[place] [address] ZACK DIXON STREPTOCO 3 [facility] CCUS INC INC GROUP A RADIOLOGI 28691 [place] [facility] C EXAM 3 MEDICAL MELIDA CHEST 2 IMAGING VIEWS ASS FRONTAL&L ATERAL CUL BACT 92952 ZACK DIXON XCPT 3 [facility] URINE INC INC BLOOD/STO OL AEROBIC ISOL IAADI 88855 ZACK DIXON INFLUENZA 3 [facility] B VIRUS INC INC IAADI 81523 ZACK DIXON INFFLUENZ 3 [facility] [place] [address] COMBINED COMBINED BLOOD/URI 3 PHYSICIAN PHYSICIAN C ACID S LA S LA BASIC 75145 COMBINED COMBINED METABOLIC 3 PHYSICIAN PHYSICIAN PANEL S LA S LA CALCIUM TOTAL CREATINE 20233 ZACK DIXON KINASE 3 [facility] TOTAL INC INC TECHNETIU A9540 ZACK Flanagan TC-99M 3 [facility] MAA DX INC INC STDY DOSE UP TO 10 MCI RADIOLOGI 82081 ZACK DIXON C 3 [facility] EXAMINATI INC INC ON CHEST SINGLE VIEW FRONTAL FIBRIN 39024 ZACK DIXON DGRADJ 3 [facility] PRODUCTS INC INC D-DIMER QUAL/SEMI BARB ECG 96035 ZACK DIXON ROUTINE 3 [facility] ECG INC INC W/LEAST 12 LDS TRCG ONLY W/O I&R RADIOLOGI 20626 ZACK Lopez EXAM 3 [facility] CHEST 2 INC INC VIEWS FRONTAL&L ATERAL THER 66393 ZACK DIXON PROPH/DX 3 [facility] NJX IV INC INC PUSH SINGLE/1S T SBST/[place] [address] ZACK DIXON TROPONIN 3 [facility] QUANTITAT INC INC MARIBEL ECG 33684 ZACK BARRETO JR ROUTINE 3 [facility] W/LEAST P 12 LDS I&R ONLY RHYTHM 34352 ZACK DIXON ECG 1-3 3 [facility] LEADS INC INC TRACING ONLY W/O I&R BLOOD 83159 ZCAK DIXON COUNT 3 [facility] COMPLETE INC INC AUTO&AUTO DIFRNTL WBC TECHNETIU A9567 ZACK Flanagan TC-99M 3 [facility] PENTETATE INC INC DX AEROSOL TO 75 MCI CREATINE 09067 ZACK DIXON KINASE MB 3 [facility] FRACTION INC INC ONLY COMPREHEN 42891 ZACK DIXON SIVE 3 [facility] METABOLIC INC INC PANEL PULMONARY 48869 ZACK DIXON 3 [facility] VENTILATI INC INC ON & PERFUSION IMAGING RENAL 47204 ZACK DIXON FUNCTION 3 [facility] PANEL INC INC COLLECTIO 06940 ZACK DIXON N VENOUS 3 [facility] BLOOD INC INC VENIPUNCT URE BLOOD 99719 ZACK DIXON COUNT 3 [facility] COMPLETE INC INC AUTO&AUTO DIFRNTL WBC THERAPEUT 92151 ZACK DIXON IC 3 [facility] PROPHYLAC INC INC TIC/DX INJECTION SUBQ/IM INJECTION J0897 ZACK DIXON 3 [facility] DENOSUMAB INC INC 1 MG APPLICATI 31619 ZACK DIXON ON 3 [facility] MODALITY INC INC 1/> AREAS HOT/COLD PACKS APPL 95357 ZACK DIXON MODALITY 3 [facility] 1/> AREAS INC INC 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 29309 ZACK DIXON IC PX 1/> 3 [facility] AREAS INC INC EACH 15 MIN EXERCISES E-STIM G0283 ZACK DIXON 1/> AREAS 3 [facility] OTH THAN INC INC WND CARE PART TX PLAN E-STIM G0283 ZACK DIXON 1/> AREAS 3 [facility] OTH THAN INC INC WND CARE PART TX PLAN THERAPEUT 59813 ZACK DIXON IC PX 1/> 3 [facility] AREAS INC INC EACH 15 MIN EXERCISES APPL 58382 ZACK DIXON MODALITY 3 [facility] 1/> AREAS INC INC 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 APPLICATI 39792 ZACK DIXON ON 3 [facility] MODALITY INC INC 1/> AREAS HOT/COLD PACKS APPLICATI 84693 ZACK DIXON ON 3 [facility] MODALITY INC INC 1/> AREAS HOT/COLD PACKS APPL 63471 ZACK IDXON MODALITY 3 [facility] 1/> AREAS INC INC 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 03694 ZACK DIXON IC PX 1/> 3 [facility] AREAS INC INC EACH 15 MIN EXERCISES E-STIM G0283 ZACK DIXON 1/> AREAS 3 [facility] OTH THAN INC INC WND CARE PART TX PLAN E-STIM G0283 ZACK DIXON 1/> AREAS 3 [facility] OTH THAN INC INC WND CARE PART TX PLAN THERAPEUT 29618 ZACK DIXON IC PX 1/> 3 [facility] AREAS INC INC EACH 15 MIN EXERCISES APPL 99203 ZACK DIXON MODALITY 3 [facility] 1/> AREAS INC INC 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 APPLICATI 42755 ZACK ZACK ON 3 [facility] MODALITY INC INC 1/> AREAS HOT/COLD PACKS THERAPEUT 62551 ZACK DIXON IC PX 1/> 3 [facility] AREAS INC INC EACH 15 MIN EXERCISES E-STIM G0283 ZACK ZACK 1/> AREAS 3 [facility] OTH THAN INC INC WND CARE PART TX PLAN E-STIM G0283 ZACK ZACK 1/> AREAS 3 [facility] OTH THAN INC INC WND CARE PART TX PLAN CULTURE 84331 COMBINED COMBINED BACTERIAL 3 PHYSICIAN PHYSICIAN S LA S LA QUANTTATI VE COLONY COUNT URINE THERAPEUT 40804 ZACK ZACK IC PX 1/> 3 [facility] AREAS INC INC EACH 15 MIN EXERCISES APPL 37930 ZACK DIXON MODALITY 3 [facility] 1/> AREAS INC INC 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 APPLICATI 45054 ZACK DIXON ON 3 [facility] MODALITY INC INC 1/> AREAS HOT/COLD PACKS APPLICATI 25649 ZACK DIXON ON 3 [facility] MODALITY INC INC 1/> AREAS HOT/COLD PACKS APPL 84654 ZACK ZACK MODALITY 3 [facility] 1/> AREAS INC INC 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 37240 ZACK ZACK IC PX 1/> 3 [facility] AREAS INC INC EACH 15 MIN EXERCISES E-STIM G0283 ZACK ZACK 1/> AREAS 3 [facility] OTH THAN INC INC WND CARE PART TX PLAN THERAPEUT 55343 ZACK DIXON IC PX 1/> 3 [facility] AREAS INC INC EACH 15 MIN EXERCISES THERAPEUT 59152 ZACK DIXON IC PX 1/> 3 [facility] AREAS INC INC EACH 15 MIN EXERCISES APPL 91329 ZACK DIXON MODALITY 3 [facility] 1/> AREAS INC INC ULTRASOUN D EA 15 MIN APPL 78593 ZACK ZACK MODALITY 3 [facility] 1/> AREAS INC INC 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 G0283 ZACK ZACK 1/> AREAS 3 [facility] OTH THAN INC INC WND CARE PART TX PLAN E-STIM G0283 ZACK ZACK 1/> AREAS 3 [facility] OTH THAN INC INC WND CARE PART TX PLAN APPL 47577 ZACK DIXON MODALITY 3 [facility] 1/> AREAS INC INC 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 56462 ZACK DIXON IC PX 1/> 3 [facility] AREAS INC INC EACH 15 MIN EXERCISES APPLICATI 55470 ZACK DIXON ON 3 [facility] MODALITY INC INC 1/> AREAS HOT/COLD PACKS APPLICATI 05164 ZACK DIXON ON 3 [facility] MODALITY INC INC 1/> AREAS HOT/COLD PACKS THERAPEUT 03427 ZACK DIXON IC PX 1/> 3 [facility] AREAS INC INC EACH 15 MIN EXERCISES APPL 69554 ZACK DIXON MODALITY 3 [facility] 1/> AREAS INC INC 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 G0283 ZACK ZACK 1/> AREAS 3 [facility] OTH THAN INC INC WND CARE PART TX PLAN E-STIM G0283 ZACK DIXON 1/> AREAS 3 [facility] OTH THAN INC INC WND CARE PART TX PLAN APPL 18205 ZACK DIXON MODALITY 3 [facility] 1/> AREAS INC INC 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 APPL 41179 ZACK DIXON MODALITY 3 [facility] 1/> AREAS INC INC ULTRASOUN D EA 15 MIN THERAPEUT 40703 ZACK DIXON IC PX 1/> 3 [facility] AREAS INC INC EACH 15 MIN EXERCISES APPLICATI 57366 ZACK DIXON ON 3 [facility] MODALITY INC INC 1/> AREAS HOT/COLD PACKS THERAPEUT 04152 ZACK DIXON IC PX 1/> 3 [facility] AREAS INC INC EACH 15 MIN EXERCISES APPL 93518 ZACK DIXON MODALITY 3 [facility] 1/> AREAS INC INC ULTRASOUN D EA 15 MIN APPL 08041 ZACK DIXON MODALITY 3 [facility] 1/> AREAS INC INC 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 G0283 ZACK DIXON 1/> AREAS 3 [facility] INC INC WND CARE PART TX PLAN SUSCEPTIB 73565 ZACK DIXON LTY STDY 3 [facility] ANTIMICRB INC INC IAL MICRO/AGA R DILUTJ E-STIM G0283 ZACK DIXON 1/> AREAS 3 [facility] OTH THAN [place] [address] ZACK DIXON PARATHORM 3 [facility] INC CULTURE 63366 ZACK DIXON BACTERIAL 3 [facility] INC INC QUANTTATI VE COLONY COUNT URINE CULTURE 05040 ZACK DIXON BCT 3 [facility] ISOL&PRSM INC INC PTV ID ISOLATE EA URINE PROTEIN 71375 ZACK DIXON ELECTROPH 3 [facility] ORETIC INC INC FRACTJ&QU ANTJ SERUM APPL 84181 ZACK DIXON MODALITY 3 [facility] 1/> AREAS INC INC 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 APPL 40664 ZACK DIXON MODALITY 3 [facility] 1/> AREAS INC INC ULTRASOUN D EA 15 MIN THERAPEUT 13757 ZACK DIXON IC PX 1/> 3 [facility] AREAS INC INC EACH 15 MIN EXERCISES BLOOD 25448 ZACK DIXON COUNT 3 [facility] COMPLETE INC INC AUTO&AUTO DIFRNTL WBC 25 52045 ZACK DIXON HYDROXY 3 [facility] INCLUDES INC [place] [address] ZACK ELLIOTTON NEPHELOME 3 [facility] TRY EACH INC INC ANALYTE YANELY COLLECTIO 81333 ZACK ELLIOTTON N VENOUS 3 [facility] BLOOD INC INC VENIPUNCT URE URNLS DIP 56293 ZACK DIXON 3 [facility] STICK/TAB INC INC LET REAGENT AUTO MICROSCOP Y RENAL 27302 ZACK DIXON FUNCTION 3 [facility] PANEL INC INC APPLICATI 22386 ZACK DIXON ON 3 [facility] MODALITY INC INC 1/> AREAS HOT/COLD PACKS THERAPEUT 72200 ZACK DIXON IC PX 1/> 3 [facility] AREAS INC INC EACH 15 MIN EXERCISES APPL 17383 ZACK DIXON MODALITY 3 [facility] 1/> AREAS INC INC 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 G0283 ZACK DIXON 1/> AREAS 3 [facility] OTH THAN INC INC WND CARE PART TX PLAN E-STIM G0283 ZACK DIXON 1/> AREAS 3 [facility] OTH THAN INC INC WND CARE PART TX PLAN APPL 46931 ZACK DIXON MODALITY 3 [facility] 1/> AREAS INC INC ULTRASOUN D EA 15 MIN APPL 28767 ZACK DIXON MODALITY 3 [facility] 1/> AREAS INC INC 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 01563 ZACK DIXON IC PX 1/> 3 [facility] AREAS INC INC EACH 15 MIN EXERCISES APPLICATI 31537 ZACK DIXON ON 3 [facility] MODALITY INC INC 1/> AREAS HOT/COLD PACKS THERAPEUT 84742 ZACK DIXON IC PX 1/> 3 [facility] AREAS INC INC EACH 15 MIN EXERCISES APPL 35673 ZACK DIXON MODALITY 3 [facility] 1/> AREAS INC INC 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 APPL 37154 ZACK DIXON MODALITY 3 [facility] 1/> AREAS INC INC ULTRASOUN D EA 15 MIN E-STIM G0283 ZACK DIXON 1/> AREAS 3 [facility] OTH THAN INC INC WND CARE PART TX PLAN E-STIM G0283 ZACK DIXON 1/> AREAS 3 [facility] OTH THAN INC INC WND CARE PART TX PLAN APPL 20912 ZACK DIXON MODALITY 3 [facility] 1/> AREAS INC INC ULTRASOUN D EA 15 MIN APPL 54088 ZACK DIXON MODALITY 3 [facility] 1/> AREAS INC INC 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 51058 ZACK DIXON IC PX 1/> 3 [facility] AREAS INC INC EACH 15 MIN EXERCISES APPLICATI 79296 ZACK DIXON ON 3 [facility] MODALITY INC INC 1/> AREAS HOT/COLD PACKS THERAPEUT 85428 ZACK DIXON IC PX 1/> 3 [facility] AREAS INC INC EACH 15 MIN EXERCISES BASIC 22476 COMBINED COMBINED METABOLIC 3 PHYSICIAN PHYSICIAN PANEL S LA S LA CALCIUM TOTAL APPL 82572 ZACK DIXON MODALITY 3 [facility] 1/> AREAS INC INC 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 APPL 04634 ZACK DIXON MODALITY 3 [facility] 1/> AREAS INC INC ULTRASOUN D EA 15 MIN APPL 98140 ZACK DIXON MODALITY 3 [facility] 1/> AREAS INC INC ULTRASOUN D EA 15 MIN APPL 05632 ZACK DIXON MODALITY 3 [facility] 1/> AREAS INC INC 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 01262 ZACK DIXON IC PX 1/> 3 [facility] AREAS INC INC EACH 15 MIN EXERCISES E-STIM G0283 ZACK DIXON 1/> AREAS 3 [facility] OTH THAN INC INC WND CARE PART TX PLAN E-STIM G0283 ZACK DIXON 1/> AREAS 3 [facility] OTH THAN INC INC WND CARE PART TX PLAN THERAPEUT 48272 ZACK DIXON IC PX 1/> 3 [facility] AREAS INC INC EACH 15 MIN EXERCISES APPL 38436 ZACK DIXON MODALITY 3 [facility] 1/> AREAS INC INC ULTRASOUN D EA 15 MIN APPL 30070 ZACK DIXON MODALITY 3 [facility] 1/> AREAS INC INC 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 APPL 89650 ZACK DIXON MODALITY 3 [facility] 1/> AREAS INC INC ULTRASOUN D EA 15 MIN THERAPEUT 64921 ZACK DIXON IC PX 1/> 3 [facility] AREAS INC INC EACH 15 MIN EXERCISES APPLICATI 51579 ZACK DIXON ON 3 [facility] MODALITY INC INC 1/> AREAS HOT/COLD PACKS E-STIM G0283 ZACK DIXON 1/> AREAS 3 [facility] OTH THAN INC INC WND CARE PART TX PLAN E-STIM G0283 ZACK DIXON 1/> AREAS 3 [facility] OTH THAN INC INC WND CARE PART TX PLAN THERAPEUT 99053 ZACK DIXON IC PX 1/> 3 [facility] AREAS INC INC EACH 15 MIN EXERCISES APPL 66005 ZACK DIXON MODALITY 3 [facility] 1/> AREAS INC INC ULTRASOUN D EA 15 MIN APPL 61221 ZACK DIXON MODALITY 3 [facility] 1/> AREAS INC INC 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 41975 ZACK DIXON IC PX 1/> 3 [facility] AREAS INC INC EACH 15 MIN EXERCISES E-STIM G0283 ZACK DIXON 1/> AREAS 3 [facility] OTH THAN INC INC WND CARE PART TX PLAN E-STIM G0283 ZACK DIXON 1/> AREAS 3 [facility] OTH THAN INC INC WND CARE PART TX PLAN THERAPEUT 12218 ZACK DIXON IC PX 1/> 3 [facility] AREAS INC INC EACH 15 MIN EXERCISES APPLICATI 71449 ZACK DIXON ON 3 [facility] MODALITY INC INC 1/> AREAS HOT/COLD PACKS THERAPEUT 03943 ZACK DIXON IC PX 1/> 3 [facility] AREAS INC INC EACH 15 MIN EXERCISES APPL 18516 ZACK DIXON MODALITY 3 [facility] 1/> AREAS INC INC 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 APPL 44874 ZACK DIXON MODALITY 3 [facility] 1/> AREAS INC INC ULTRASOUN D EA 15 MIN E-STIM G0283 ZACK DIXON 1/> AREAS 3 [facility] OTH THAN INC INC WND CARE PART TX PLAN E-STIM G0283 ZACK DIXON 1/> AREAS 3 [facility] OTH THAN INC INC WND CARE PART TX PLAN APPL 77671 ZACK DIXON MODALITY 3 [facility] 1/> AREAS INC INC ULTRASOUN D EA 15 MIN APPL 37822 ZACK DIXON MODALITY 3 [facility] 1/> AREAS INC INC 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 89998 ZACK DIXON IC PX 1/> 3 [facility] AREAS INC INC EACH 15 MIN EXERCISES APPLICATI 10919 ZACK DIXON ON 3 [facility] MODALITY INC INC 1/> AREAS HOT/COLD PACKS APPLICATI 84680 ZACK DIXON ON 3 [facility] MODALITY INC INC 1/> AREAS HOT/COLD PACKS APPL 78159 ZACK DIXON MODALITY 3 [facility] 1/> AREAS INC INC 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 APPL 64468 ZACK DIXON MODALITY 3 [facility] 1/> AREAS INC INC ULTRASOUN D EA 15 MIN E-STIM G0283 ZACK DIXON 1/> AREAS 3 [facility] OTH THAN INC INC WND CARE PART TX PLAN E-STIM G0283 ZACK DIXON 1/> AREAS 3 [facility] OTH THAN INC INC WND CARE PART TX PLAN APPL 47011 ZACK DIXON MODALITY 3 [facility] 1/> AREAS INC INC ULTRASOUN D EA 15 MIN APPL 81722 ZACK DIXON MODALITY 3 [facility] 1/> AREAS INC INC 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 APPLICATI 31759 ZACK ELLIOTTON ON 3 [facility] MODALITY INC INC 1/> AREAS HOT/COLD PACKS THERAPEUT 59565 ZACK DIXON IC PX 1/> 3 [facility] AREAS INC INC EACH 15 MIN EXERCISES THERAPEUT 44165 ZACK DIXON IC PX 1/> 3 [facility] AREAS INC INC EACH 15 MIN EXERCISES APPLICATI 48906 ZACK DIXON ON 3 [facility] MODALITY INC INC 1/> AREAS HOT/COLD PACKS APPL 01615 ZACK ZACK MODALITY 3 [facility] 1/> AREAS INC INC 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 APPL 98828 ZACK DIXON MODALITY 3 [facility]/> [facility] INC INC ULTRASOUN D EA 15 MIN E-STIM [id number] ZACK DIXON 1/> [facility]AS [facility] OTH THAN INC INC WND CARE PART TX PLAN APPL 00856 ZACK DIXON MODALITY 3 [facility]/> AREAS INC INC ULTRASOUN D EA 15 MIN PHYSICAL 97089 ZACK DIXON THERAPY 3 [facility] EVALUATIO INC INC N THERAPEUT 48222 ZACK DIXON IC PX 1/> 3 [facility] INC INC EACH 15 MIN EXERCISES APPL 64063 ZACK DIXON MODALITY 3 [facility]/> AREAS INC INC 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 APPLICATI 23846 ZACK DIXON ON 3 [facility] MODALITY INC INC 1/> AREAS HOT/COLD PACKS RADEX HIP 58846 [place] SHERI 3 [facility] MELIDA UNILATERA IMAGING L ASS COMPLETE MINIMUM 2 [place] [address] COMBINED COMBINED BLOOD/URI 3 PHYSICIAN PHYSICIAN C ACID S LA S LA BASIC 97169 COMBINED COMBINED METABOLIC 3 PHYSICIAN PHYSICIAN PANEL S LA S LA CALCIUM TOTAL BASIC 92308 ZACK DIXON METABOLIC 2 [facility]EL [facility] G0378 [facility] OBSERVATI 2 [facility] ON INC INC SERVICE PER HOUR GLUC BLD 83104 ZACK DIXON GLUC MNTR 2 [facility] DEV INC INC CLEARED FDA SPEC HOME USE COLLECTIO 82202 ZACK DIXON N VENOUS 2 [facility] BLOOD INC INC VENIPUNCT URE BLOOD 47190 ZACK DIXON COUNT 2 [facility] COMPLETE INC INC AUTO&AUTO DIFRNTL WBC BLOOD 80155 ZACK DIXON COUNT 2 [facility] COMPLETE INC INC AUTO&AUTO DIFRNTL WBC CREATINE 31477 ZACK DIXON KINASE 2 [facility] TOTAL INC INC TECHNETIU A9540 ZACK DIXON M TC-99M 2 [facility] MAA DX INC INC STDY DOSE UP TO 10 MCI COLLECTIO 85563 ZACK DIXON N VENOUS 2 [facility] BLOOD INC INC VENIPUNCT URE TECHNETIU A9567 ZACK DIXON M TC-99M 2 [facility] PENTETATE INC INC DX AEROSOL TO 75 MCI CREATINE 06653 ZACK DIXON KINASE MB 2 [facility] FRACTION INC INC ONLY NONINVASI 69500 ZACK DIXON VE 2 [facility] EAR/PULSE INC INC OXIMETRY SINGLE DETER PULMONARY 35447 [facility] 2 MEDICAL MELIDA VENTILATI IMAGING ON & ASS PERFUSION IMAGING GLUC BLD 42460 ZACK DIXON GLUC MNTR 2 [facility] DEV INC INC CLEARED FDA SPEC HOME USE ECHO 12026 [facility] T[facility] R-T 2 DINA MORA 2D CARDIOLOG W/WOM-MOD Y CLINIC E COMPL SPEC&[place] [address] ZACK DIXON TROPONIN 2 [facility] QUANTITAT INC INC [facility] G0378 ZACK [facility]IXON OBSERVATI 2 [facility] ON INC INC SERVICE PER HOUR BASIC 40682 ZACK DIXON METABOLIC 2 [facility] PANEL INC INC [facility] G0378 ZACK DIXON OBSERVATI 2 [facility] ON INC INC SERVICE PER HOUR BLOOD 67989 ZACKSHANDA DIXON COUNT 2 [facility] COMPLETE INC INC AUTO&[place] [address] ZACK DIXON TROPONIN 2 [facility] QUANTITAT INC INC [place] ECG 36999 ZACK VINAY ROUTINE [address] [facility] W/LEAST P 12 LDS I&R ONLY GLUC BLD 36459 ZACK DIXON GLUC MNTR 2 [facility] DEV INC INC CLEARED FDA SPEC HOME USE NATRIURET 18442 ZACK ZACK IC 2 [facility] PEPTIDE INC INC RADIOLOGI 97474 ZACK DIXON C EXAM 2 [facility] CHEST 2 INC INC VIEWS FRONTAL&L ATERAL THERAPEUT 78768 ZACK DIXON IC 2 [facility] PROPHYLAC INC INC TIC/DX INJECTION SUBQ/IM CREATINE 97863 ZACK DIXON KINASE MB 2 [facility] FRACTION INC INC ONLY URNLS DIP 54486 ZACK ZACK 2 [facility] STICK/TAB INC INC LET REAGENT AUTO MICROSCOP Y BASIC 45783 ZACK DIXON METABOLIC 2 [facility] PANEL INC INC CALCIUM TOTAL CREATINE 28750 ZACK [facility] KINASE [facility] TOTAL INC INC CULTURE 06102 ZACK DIXON BACTERIAL 2 [facility] BLOOD INC INC AEROBIC W/ID ISOLATES FIBRIN 83781 ZACK ZACK DGRADJ 2 [facility] PRODUCTS INC INC D-DIMER QUAL/SEMI BARB ECG 93532 ZACK DIXON ROUTINE 2 [facility] ECG INC INC W/LEAST 12 LDS TRCG ONLY W/O I&R BLOOD 71355 ZACK DIXON COUNT 2 [facility] COMPLETE INC INC AUTO&AUTO DIFRNTL WBC COLLECTIO 90283 ZACK DIXON N VENOUS 2 [facility] BLOOD INC INC VENIPUNCT URE BASIC 71312 ZACK DIXON METABOLIC 2 [facility] PANEL INC INC CALCIUM TOTAL THERAPEUT 22164 ZACK DIXON IC 2 [facility] PROPHYLAC INC INC TIC/DX INJECTION SUBQ/IM INJECTION J0897 [facility] D[facility]ON [facility] DENOSUMAB INC INC 1 MG URNLS DIP 97786 ZACK DIXON 2 [facility] STICK/TAB INC INC LET REAGENT AUTO MICROSCOP Y COLLECTIO 01441 ZACK DIXON N VENOUS 2 [facility] BLOOD INC INC VENIPUNCT URE CREATININ 23562 ZACK DIXON E OTHER 2 [facility] SOURCE INC INC RENAL 30080 ZACK DIXON FUNCTION 2 [facility] PANEL INC INC DXA BONE 42342 [place] DENSITY 2 MEDICAL MELIDA STUDY 1/> IMAGING SITES ASS AXIAL SKEL PROTEIN 71234 ZACK DIXON XCPT 2 [facility] REFRACTOM INC INC ETRY SERUM PLASMA/WH L BLD 25 84495 ZACK DIXON HYDROXY 2 [facility] INCLUDES INC INC FRACTIONS IF PERFORMED BLOOD 96078 ZACK DIXON COUNT 2 [facility] COMPLETE INC INC AUTO&[place] [address] ZACK DIXON PARATHORM 2 [facility] ONE INC INC CONTINUOU E0601 REID MATHEWS S 2 HOME HOME POSITIVE MEDICAL MEDICAL AIRWAY EQUIPME EQUIPME PRESSURE DEVICE CONTINUOU E0601 REID MATHEWS S 2 HOME HOME POSITIVE MEDICAL MEDICAL AIRWAY EQUIPME EQUIPME PRESSURE DEVICE FILTER A7038 REID MATHEWS DISPBL 2 HOME HOME USED MEDICAL MEDICAL W/POS EQUIPME EQUIPME ARWAY PRESSURE DEVICE FILTER A7039 REID MATHEWS NON 2 HOME HOME DISPBL MEDICAL MEDICAL USED EQUIPME EQUIPME W/POS ARWAY PRESS DEVICE TUBING A7037 REID MATHEWS USED WITH 2 HOME HOME POSITIVE MEDICAL MEDICAL AIRWAY EQUIPME EQUIPME PRESSURE DEVICE NASL A7034 REID MATHEWS INTRFCE 2 HOME HOME POS ARWAY MEDICAL MEDICAL PRSS EQUIPME EQUIPME DEVC W/WO HEAD STRAP HEADGEAR A7035 REID MATHEWS USED 2 HOME HOME W/POSITIV MEDICAL MEDICAL E AIRWAY EQUIPME EQUIPME PRESSURE DEVICE HUMDIFIR E0562 REID MATHEWS HEATED 2 HOME HOME USED MEDICAL MEDICAL W/POS EQUIPME EQUIPME ARWAY PRESSURE DEVICE CV STRS 33291 [facility] TST 2 PHYSICIAN XERS&/OR S GROUP RX CONT ECG W/O I&R CV STRS 04122 ZACK ZAPATA TST 2 [facility] XERS&/OR HOSPITAL RX CONT P ECG I&R ONLY MYOCARDIA 79038 [facility] L SPECT 2 DINA [facility] MULTIPLE CARDIOLOG STUDIES Y CLINIC POLYSOM 52287 ZACK DIXON 6/>YRS 2 [facility] SLEEP INC INC W/CPAP 4/> ADDL HARSHIL ATTND CULTURE 51370 ZACK DIXON BACTERIAL 2 [facility] INC INC QUANTTATI VE COLONY COUNT URINE CULTURE 88819 ZACK DIXON BCT 2 [facility] ISOL&PRSM INC INC PTV ID ISOLATE EA URINE SUSCEPTIB 44157 ZACK DIXON LTY STDY 2 [facility] ANTIMICRB INC INC IAL MICRO/AGA R DILUTJ BLOOD 11955 ZACK DIXON COUNT 2 [facility] COMPLETE INC INC AUTO&[place] [address] ZACK DIXON PARATHORM 2 [facility] ONE INC INC PROTEIN 32870 ZACK DIXON XCPT 2 [facility] REFRACTOM INC INC ETRY SERUM PLASMA/WH L BLD 25 64522 ZACK DIXON HYDROXY 2 [facility] INCLUDES INC INC FRACTIONS IF PERFORMED RENAL 60461 ZACK DIOXN FUNCTION 2 [facility] PANEL INC INC URNLS DIP 49698 ZACK DIXON 2 [facility] STICK/TAB INC INC LET REAGENT AUTO MICROSCOP Y CREATININ 15527 ZACK DIXON E OTHER 2 [facility] SOURCE INC INC COLLECTIO 48073 ZACK DIXON N VENOUS 2 [facility] BLOOD INC INC VENIPUNCT URE POLYSOM 41562 ESTIVEN JEAN-BAPTISTE 6/>YRS 2 [facility] SLEEP 4/> ADDL HARSHIL ATTND BLD GLU A4253 REID MATHEWS TEST/REAG 2 HOME HOME T STRIPS MEDICAL MEDICAL HOME BLD EQUIPME EQUIPME GLU MON-50 LANCETS A4259 REID REID PER BOX 2 HOME HOME OF 100 MEDICAL MEDICAL EQUIPME EQUIPME POLYSOM 79404 ZACK DIXON 6/>YRS 2 [facility] SLEEP 4/> INC INC ADDL HARSHIL ATTND CREATINE 56544 ZACK DIXON KINASE MB 2 [facility] FRACTION INC INC ONLY RADEX 85982 LIZZ SHERI SPINE 2 MEDICAL MELIDA LUMBOSACR IMAGING AL ASS MINIMUM 4 VIEWS URNLS DIP 97266 ZACK DIXON 2 [facility] STICK/TAB INC INC LET REAGENT AUTO MICROSCOP Y BLOOD 02749 ZACK DIXON COUNT 2 [facility] COMPLETE INC INC AUTO&[place] [address] ZACK DIXON TROPONIN 2 [facility] QUANTITAT INC INC MARIBEL ECG 41119 EMEKA SHIN ROUTINE 2 EMERGENCY III NANCY ECG SERVICES W/LEAST 12 LDS I&R ONLY 3D 67587 ZACK DIXON RENDERING 2 [facility] W/INTERP INC INC & [place] [address] ZACK DIXON HEAD/BRAI 2 [facility] N W/O INC INC CONTRAST MATERIAL RADIOLOGI 53495 ZACK DIXON C 2 [facility] EXAMINATI INC INC ON CHEST SINGLE VIEW FRONTAL BASIC 34120 ZACK DIXON METABOLIC 2 [facility] PANEL INC INC CALCIUM TOTAL CREATINE 61376 ZACK DIXON KINASE 2 [facility] TOTAL INC INC ECG 14289 ZACK DIXON ROUTINE 2 [facility] ECG INC INC W/LEAST 12 LDS TRCG ONLY W/O I&R RADEX 85066 LIZZ SHERI SPINE 2 MEDICAL MELIDA THORACIC IMAGING 3 [place] [address] ZACK DIXON BLOOD/URI 2 [facility] [place] [address] ZACK DIXON PHOSPHORU 2 [facility] S INC INC INORGANIC CYANOCOBA 67308 ZACK DIXON SOHA 2 [facility] VITAMIN INC INC B-12 [place] [address] ZACK DIXON FERRITIN 2 [facility] INC INC BASIC 08838 ZACK DIXON METABOLIC 2 [facility] [place] [address] ZACK DIXON PARATHORM 2 [facility] ONE INC INC RADEX 88434 ZACK DIXON SPINE 2 [facility] CERVICAL INC INC 6 OR MORE VIEWS IRON 85368 ZACK DIXON BINDING 2 [facility] CAPACITY INC INC 25 21047 ZACK DIXON HYDROXY 2 [facility] INCLUDES INC INC FRACTIONS IF PERFORMED RADIOLOGI 46143 [place] C EXAM 2 MEDICAL MELIDA SKULL IMAGING COMPLETE ASS MINIMUM 4 [place] [address] ZACK DIXON IRON 2 [place] [address] ZACK DIXON FOLIC 2 [facility] ACID INC INC SERUM IRRIGAJ 56792 ZACK DIXON IMPLNTD 2 [facility] VENOUS INC INC ACCESS DRUG DELIVERY SYST GLUC BLD 59683 ZACK DIXON GLUC MNTR 2 [facility] DEV INC INC CLEARED FDA SPEC HOME USE GLUC BLD 63967 ZACK DIXON GLUC MNTR 2 [facility] DEV INC INC CLEARED FDA SPEC HOME USE NONINVASI 59839 ZACK DIOXN VE 2 [facility] EAR/PULSE INC INC OXIMETRY SINGLE [facility] G0378 ZACK DIXON OBSERVATI 2 [facility] ON INC INC SERVICE PER HOUR BASIC 55083 ZACK DIXON METABOLIC 2 [facility] PANEL INC INC CALCIUM TOTAL BLOOD 10053 ZACK DIXON COUNT 2 [facility] COMPLETE INC INC AUTO&AUTO DIFRNTL WBC BASIC 65092 ZACK DIXON METABOLIC 2 [facility] PANEL INC INC CALCIUM TOTAL BLOOD 22264 ZACK DIXON COUNT 2 [facility] COMPLETE INC INC AUTO&AUTO [facility]NTL [facility] G0378 ZACK DIXON OBSERVATI 2 [facility] ON INC INC SERVICE PER HOUR GLUC BLD 49358 ZACK DIXON GLUC MNTR 2 [facility] DEV INC INC CLEARED FDA SPEC HOME USE RADIOLOGI 92113 ZACK DIXON C EXAM 2 [facility] CHEST 2 INC INC VIEWS FRONTAL&L ATERAL ECG 79415 ZACK MCLEAN ROUTINE [address] [facility] W/LEAST P 12 LDS I&R ONLY ECHO 54318 [facility] TTHRC R-T 2 DINA MORA 2D CARDIOLOG W/WOM-MOD Y CLINIC E COMPL SPEC&[place] [address] ZACK DIXON TROPONIN 2 [facility] QUANTITAT INC INC MARIBEL INITIAL 62570 [facility] 2 PHYSICIAN CARE/DAY S GROUP 50 MINUTES NONINVASI 08100 ZACK DIXON VE 2 [facility] EAR/PULSE INC INC OXIMETRY SINGLE DETER PULMONARY 02869 [facility] 2 MEDICAL MELIDA VENTILATI IMAGING ON & ASS PERFUSION IMAGING CREATINE 69955 ZACK DIXON KINASE MB 2 [facility] FRACTION INC INC ONLY TECHNETIU A9567 ZACK Flanagan TC-99M 2 [facility] PENTETATE INC INC DX AEROSOL TO 75 MCI TECHNETIU A9540 ZACK Flanagan TC-99M 2 [facility] MAA DX INC INC STDY DOSE UP TO 10 MCI CREATINE 75131 ZACK DIXON KINASE 2 [facility] TOTAL INC INC ECG 54383 ZACK DIXON ROUTINE 2 [facility] ECG INC INC W/LEAST 12 LDS TRCG ONLY W/O I&R FIBRIN 87293 ZACK DIXON DGRADJ 2 [facility] PRODUCTS INC INC D-DIMER QUAL/SEMI BARB CULTURE 77473 ZACK DIXON BACTERIAL 2 [facility] INC INC QUANTTATI VE COLONY COUNT URINE CULTURE 01336 ZACK DIXON BCT 2 [facility] ISOL&PRSM INC INC PTV ID ISOLATE EA URINE CREATINE 20402 ZACK DIXON KINASE 2 [facility] TOTAL INC INC CULTURE 38015 ZACK DIXON BACTERIAL 2 [facility] BLOOD INC INC AEROBIC W/ID ISOLATES SUSCEPTIB 47097 ZACK DIXON LTY STDY 2 [facility] ANTIMICRB INC INC IAL MICRO/AGA R DILUTJ RADIOLOGI 73872 [facility] SHERI C 2 MEDICAL MELIDA EXAMINATI IMAGING ON CHEST ASS SING[place]IEW FRONTAL ECG 11702 ZACK DIXON ROUTINE 2 [facility] ECG INC INC W/LEAST 12 LDS TRCG ONLY W/O I&R CREATINE 03905 ZACK DIXON KINASE MB 2 [facility] FRACTION INC INC ONLY URNLS DIP 44611 ZACK DIXON 2 [facility] STICK/TAB INC INC LET REAGENT AUTO MICROSCOP Y COMPREHEN 70339 ZACK DIXON SIVE 2 [facility] [place] [address] ZACK DIXON TROPONIN 2 [facility] QUANTITAT INC INC MARIBEL ECG 48118 EMEKA WILCOX ROUTINE 2 EMERGENCY [facility] ECG SERVICES W/LEAST 12 LDS I&R ONLY NATRIURET 70316 ZACK DIXON IC 2 [facility] PEPTIDE INC INC THERAPEUT 34034 ZACK DIXON IC 2 [facility] PROPHYLAC INC INC TIC/DX INJECTION SUBQ/IM BLOOD 14350 ZACK DIXON COUNT 2 [facility] COMPLETE INC INC AUTO&AUTO DIFRNTL WBC LANCETS A4259 REID MATHEWS PER BOX 2 HOME HOME OF 100 MEDICAL MEDICAL EQUIPME EQUIPME BLD GLU A4253 REID MATHEWS TEST/REAG 2 HOME HOME T STRIPS MEDICAL MEDICAL HOME BLD EQUIPME EQUIPME GLU MON-50 WALKER E0135 REID MATHEWS FOLDING 2 HOME HOME ADJUSTABL MEDICAL MEDICAL E OR EQUIPME EQUIPME FIXED HEIGHT HOME E0607 REID MATHEWS BLOOD 2 HOME HOME GLUCOSE MEDICAL MEDICAL MONITOR EQUIPME EQUIPME RADIOLOGI 61442 [place] C 2 MEDICAL MELIDA EXAMINATI IMAGING ON CHEST ASS SINGLE VIEW FRONTAL VENOUS 3893 ZACK DIXON CATHETERI 2 [facility] ZATION INC INC NOT ELSEWHERE CLASSIFIE D RADIOLOGI 54904 [place] C EXAM 2 MEDICAL MELIDA CHEST 2 IMAGING VIEWS ASS FRONTAL&L ATERAL RADIOLOGI 17462 [place] C EXAM 2 MEDICAL MELIDA CHEST 2 IMAGING VIEWS ASS FRONTAL&L ATERAL HANDLG&/O 45684 FAMILY STRAWZELL R CONVEY 2 CARE CRI OF SPEC ASSOCIATE FOR TR S, PSC OFFICE TO LAB COLLECTIO 82421 FAMILY STRAWZELL N VENOUS 2 CARE CRI BLOOD ASSOCIATE [place], [place] [address] [place] RETROPERI 2 MEDICAL MELIDA TONEAL IMAGING REAL TIME ASS W/IMAGE COMPLETE COMPREHEN 05240 COMBINED COMBINED SIVE 2 PHYSICIAN PHYSICIAN METABOLIC S LA S LA PANEL RADIOLOGI 86291 [place] C 2 MEDICAL MELIDA EXAMINATI IMAGING ON KNEE 3 [place] [address] COMBINED COMBINED BLOOD/URI 2 PHYSICIAN PHYSICIAN C ACID S LA S LA ANTINUCLE 96550 LAB ZOEY LAB ZOEY AR 2 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 YUNG RHEUMATOI 48817 COMBINED COMBINED D FACTOR 2 PHYSICIAN PHYSICIAN QUALITATI S LA S LA VE SEDIMENTA 86370 COMBINED COMBINED TION RATE 2 PHYSICIAN PHYSICIAN RBC S LA S LA NON-AUTOM ATED BLOOD 54032 FAMILY STRAWZELL COUNT 2 CARE CRI COMPLETE ASSOCIATE AUTO&AUTO S, PSC DIFRNTL WBC CYANOCOBA 05191 COMBINED COMBINED SOHA 2 PHYSICIAN PHYSICIAN VITAMIN S LA S LA B-12 COMPREHEN 66943 COMBINED COMBINED SIVE 2 PHYSICIAN PHYSICIAN METABOLIC S LA S LA PANEL LIPID 84941 FAMILY STRAWZELL PANEL 2 CARE CRI ASSOCIATE S, PSC COLLECTIO 95627 FAMILY STRAWZELL N VENOUS 2 CARE CRI BLOOD ASSOCIATE [place]ENIPUN[place], [place] [address] COMBINED COMBINED THYROID 2 PHYSICIAN PHYSICIAN STIMULATI S LA S LA NG HORMONE TSH HANDLG&/O 66472 FAMILY STRAWZELL R CONVEY 2 CARE CRI OF SPEC ASSOCIATE FOR TR S, [facility] OFFICE TO LAB 25 54788 COMBINED COMBINED HYDROXY 2 PHYSICIAN PHYSICIAN INCLUDES S LA S LA FRACTIONS IF PERFORMED HEMOGLOBI 89519 FAMILY STRAWZELL N 2 CARE CRI GLYCOSYLA ASSOCIATE ALEX A1C S, [facility] RADIOLOGI 37633 ZACK DIXON C EXAM 2 [facility] CHEST 2 INC INC VIEWS FRONTAL&L ATERAL DUP-SCAN 75524 ZACK DIXON XTR VEINS 2 [facility] INC INC UNILATERA L/LIMITED STUDY BLOOD 63810 ZACK DIXON COUNT 2 [facility] COMPLETE INC INC AUTO&AUTO DIFRNTL WBC COLLECTIO 86659 ZACK DIXON N VENOUS 2 [facility] BLOOD INC INC VENIPUNCT URE RENAL 53293 ZACK DIXON FUNCTION 2 [facility] PANEL INC INC HEPATIC 32859 ZACK DIXON FUNCTION 2 [facility] PANEL INC INC URNLS DIP 93436 ZACK DIXON 2 [facility] STICK/TAB INC INC LET REAGENT AUTO MICROSCOP Y DEBRIDEME 32273 PAWSAT PAWSAT NT NAIL 2 MAR MAR ANY METHOD 1-5 THERAPEUT 76477 ZACK DIXON IC 1 [facility] PROPHYLAC INC INC TIC/DX INJECTION SUBQ/IM BASIC 54544 ZACK DIXON METABOLIC 1 [facility] PANEL INC INC CALCIUM TOTAL COLLECTIO 10596 ZACK DIXON N VENOUS 1 [facility] BLOOD INC INC VENIPUNCT URE COLLECTIO 26440 ZACK DIXON N VENOUS 1 [facility] BLOOD INC INC VENIPUNCT URE BASIC 59767 ZACK DIXON METABOLIC 1 [facility] PANEL INC INC CALCIUM TOTAL THERAPEUT 82275 ZACK DIXON IC 1 [facility] PROPHYLAC INC INC TIC/DX INJECTION SUBQ/IM PROTEIN 67473 ZACK DIXON XCPT 1 [facility] REFRACTOM INC INC ETRY SERUM PLASMA/WH L BLD 25 52553 ZACK DIXON HYDROXY 1 [facility] INCLUDES INC INC FRACTIONS IF PERFORMED COLLECTIO 75728 ZACK DIXON N VENOUS 1 [facility] BLOOD INC INC VENIPUNCT URE URNLS DIP 77886 ZACK DIXON 1 [facility] STICK/TAB INC INC LET REAGENT AUTO MICROSCOP Y CREATININ 69118 ZACK DIXON E OTHER 1 [facility] SOURCE INC INC RENAL 88385 ZACK DIXON FUNCTION 1 [facility] PANEL INC INC BLOOD 98640 ZACK DIXON COUNT 1 [facility] COMPLETE INC INC AUTO&[place] [address] ZACK DIXON PARATHORM 1 [facility] ONE INC INC PROTEIN 43372 ZACK DIXON ELECTROPH 1 [facility] ORETIC INC INC FRACTJ&QU ANTJ SERUM BASIC 32452 ZACK DIXON METABOLIC 1 [facility] PANEL INC INC CALCIUM TOTAL COLLECTIO 84089 ZACK DIXON N VENOUS 1 [facility] BLOOD INC INC VENIPUNCT URE ARTHROCEN 96488 [place] ROS[facility] TESIS 1 [facility] ASPIR&/IN CLINIC J MAJOR PSC JT/BURSA W/O US RADIOLOGI 67363 ZACK DIXON C EXAM 1 [facility] BOTH INC INC KNEES STANDING ANTEROPOS T INJECTION J1030 [place] SON 1 [facility] DNISOLONE PSC ACETATE 40 MG DXA BONE 11466 ZACK DIXON DENSITY 1 [facility] STUDY 1/> [place] [address] ZACK DIXON RETROPERI 1 [facility] TONEAL INC INC REAL TIME W/IMAGE COMPLETE OPHTH 44320 ARYAN PETERS [facility] 1 VISION XM&EVAL COMPRHNSV ESTAB PT 1/> NON-INVAS 46073 ZACK DIXON MARIBEL 1 [facility] PHYSIOLOG INC INC IC STUDY EXTREMITY 3 [place] [address] COMBINED COMBINED PHOSPHORU 1 PHYSICIAN [place] [address] COMBINED COMBINED PARATHORM 1 PHYSICIAN PHYSICIAN ONE S LA S LA 25 23699 COMBINED COMBINED HYDROXY 1 PHYSICIAN PHYSICIAN INCLUDES S LA S LA FRACTIONS IF PERFORMED BASIC 94941 COMBINED COMBINED METABOLIC 1 PHYSICIAN PHYSICIAN PANEL S LA S LA CALCIUM TOTAL BLD GLU A4253 REID MATHEWS TEST/REAG 1 HOME MED HOME MED T STRIPS EQUIP. L EQUIP. L HOME BLD GLU MON-50 LANCETS A4259 REID REID PER BOX 1 HOME MED HOME MED OF 100 EQUIP. L EQUIP. L COLLECTIO 08598 ZACK DIXON N VENOUS 1 [facility] [place] [address] ZACK DIXON ABDOMEN 1 [facility] W/[place] [address] ZACK DIXON UREA 1 [facility] NITROGEN INC INC QUANTITAT MARIBEL 3D 84318 ZACK DIXON RENDERING 1 [facility] INC INC W/INTERP& POSTPROC DIFF WORK STATION CREATININ 54059 ZACK DIXON E BLOOD 1 [facility] INC INC HEPATBL 58481 ZACK DIXON DUX SYS 1 [facility] IMG INC INC GLBLDR TECHNETIU A9537 ZACK DIXON M TC-99M 1 [facility] MEBROFENI INC INC N DX UP [place] 15 [place] [address] [place] ABDOMINAL 1 MEDICAL MELIDA REAL IMAGING TIME ASS W/IMAGE LIMITED COMPREHEN 18684 COMBINED COMBINED SIVE 1 PHYSICIAN PHYSICIAN METABOLIC S LA S LA PANEL COLLECTIO 45355 COMBINED COMBINED N VENOUS 1 PHYSICIAN PHYSICIAN BLOOD S LA S LA VENIPUNCT URE COLLECTIO 94328 FAMILY MULBERRY N VENOUS 1 CARE NILO BLOOD [place] [address] COMBINED COMBINED THYROID 1 PHYSICIAN PHYSICIAN STIMULATI S LA S LA NG HORMONE TSH COMPREHEN 30015 COMBINED COMBINED SIVE 1 PHYSICIAN PHYSIC[place] [address] COMBINED COMBINED AMYLASE 1 PHYSICIAN PHYSICIAN S LA S LA HEMOGLOBI 52402 FAMILY MULBERRY N 1 CARE NLIO GLYCOSYLA ASSOCIATE ALEX A1C S BLOOD 98359 FAMILY MULBERRY COUNT 1 CARE NILO COMPLETE ASSOCIATE AUTO&[place] [address] LAB ZOEY LAB ZOEY LIPASE 1 [facility] RADIOLOGI 65932 ZACK ZACK C EXAM 1 [facility] CHEST 2 INC INC VIEWS FRONTAL&L ATERAL BASIC 64507 COMBINED COMBINED METABOLIC 1 PHYSICIAN PHYSICIAN PANEL S LA S LA CALCIUM TOTAL COLLECTIO 18115 FAMILY BRENDAN J N VENOUS 1 CARE BLOOD ASSOCIATE VENIPUNCT S URE URNLS DIP 73964 ZACK ZACK 0 [facility] STICK/TAB INC INC LET REAGENT AUTO MICROSCOP Y PRESSURIZ 63094 ZACK ZACK ED/NONPRE 0 [facility] SSURIZED INC INC INHALATIO N TREATMENT RADIOLOGI 33619 [facility] C EXAM 0 MEDICAL MELIDA CHEST 2 IMAGING VIEWS ASS FRONTAL&[place] [address] ZACK ZACK STREPTOCO 0 [facility] CCUS INC INC GROUP A IAADI 48196 ZACK DIXON INFFLUENZ 0 [facility] A A VIRUS INC INC IAADI 85144 ZACK ELLIOTTON INFLUENZA 0 [facility] B VIRUS INC INC COMPREHEN 71111 COMBINED COMBINED SIVE 0 PHYSICIAN PHYSICIAN [place] [address] COMBINED COMBINED THYROID 0 PHYSICIAN PHYSICIAN STIMULATI S LA S LA NG HORMONE TSH COLLECTIO 65291 FAMILY FAMILY N VENOUS 0 CARE CARE BLOOD ASSOCIATE ASSOCIATE VENIPUNCT S S URE OPHTH 95868 [facility] CA MEDICAL 0 XM&EVAL COMPRHNSV ESTAB PT 1/> FUNDUS 95232 LORRAINE PETERS LANNY PHOTOGRAP 0 HY W/INTERPR ETATION & REPORT DIAB ONLY A5500 WELLNESS WELLNESS FIT CSTM 0 LIFE LIFE PREP&SPL SYSTEMS [employer] DNSITY INSRT FOR DIAB A5513 WELLNESS WELLNESS ONLY MX 0 LIFE LIFE DNSITY [employer]S [employer] CSTM MOLD CSTM EA RADIOLOGI 02186 LIZZ DIASCHER C 0 MEDICAL MELIDA EXAMINATI IMAGING ON ANKLE ASS 2 VIEWS RADIOLOGI 28858 ZACK DIXON C 0 [facility] EXAMINATI INC INC ON ANKLE 2 VIEWS WALKING L4360 [employer] 0 TECHNOLOG TECHNOLOG PNEUMATC IES INC IES INC &/ VACUUM PREFAB CUSTM FIT RADIOLOGI 35161 ZACK DIXON C 0 [facility] EXAMINATI INC INC ON FOOT 2 VIEWS RADEX 55124 LIZZ SHERI FOOT 0 MEDICAL MELIDA COMPLETE IMAGING MINIMUM 3 ASS VIEWS RADEX 99077 ZACK DIXON FOOT 0 [facility] COMPLETE INC INC MINIMUM 3 [place] [address] [facility] PETTEY 0 PHYSICIAN JAM CALCANEAL S GROUP FRACTURE W/O MANIPULAT ION RADEX 26427 ZACK ZACK CALCANEUS 0 [facility] MINIMUM INC INC 2 VIEWS RADIOLOGI 53574 ZACK DIXON C 0 [facility] EXAMINATI INC INC ON PELVIS 1/2 VIEWS RADIOLOGI 48381 ZACK ZACK C 0 [facility] EXAMINATI INC INC ON TIBIA & FIBULA 2 [place] [address] [facility] 0 EMERGENCY CHIDI CALCANEAL SERVICES FRACTURE W/O MANIPULAT ION GROUND A0425 [facility] MILEAGE 0 AMBULANCE AMBULANCE PER SERVICE SERVICE STATUTE MILE AMBULANCE A0429 [facility] SERVICE 0 AMBULANCE AMBULANCE BLS SERVICE SERVICE EMERGENCY TRANSPORT COLLECTIO 94231 FAMILY MULBERRY N VENOUS 0 CARE NILO BLOOD ASSOCIATE VENIPUNCT S URE PPSV23 90816 FAMILY FAMILY VACCINE 2 0 CARE CARE YRS OR ASSOCIATE ASSOCIATE OLDER FOR S S SUBQ/IM USE HEMOGLOBI 61525 FAMILY MULBERRY N 0 CARE NILO GLYCOSYLA ASSOCIATE ALEX A1C S BLOOD 90554 FAMILY MULBERRY COUNT 0 CARE NILO COMPLETE ASSOCIATE AUTO&AUTO S DIFRNTL WBC 25 21934 LAB ZOEY LAB ZOEY HYDROXY 0 AMERIC AMERIC INCLUDES HOLD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 IF PERFORMED GLUCOSE 34319 FAMILY MULBERRY POST 0 CARE NILO GLUCOSE ASSOCIATE DOSE S ADMINISTR G0009 FAMILY MULBERRY ATION OF 0 CARE NILO PNEUMOCOC ASSOCIATE JORDYN S VACCINE CYANOCOBA 56779 COMBINED COMBINED SOHA 0 PHYSICIAN PHYSICIAN VITAMIN S LAB S LAB B-12 [place] [address] COMBINED COMBINED FERRITIN 0 PHYSICIAN [place] [address] COMBINED COMBINED FOLIC 0 PHYSICIAN PHYSICIAN [place] [address] COMBINED COMBINED IRON 0 PHYSICIAN PHYSICIAN S LAB S LAB LIPID 20721 COMBINED COMBINED PANEL 0 PHYSICIAN PHYSICIAN S LAB S LAB COMPREHEN 53481 COMBINED COMBINED SIVE 0 PHYSICIAN PHYSICIAN METABOLIC S LAB S LAB PANEL COLLECTIO 69492 FAMILY MULBERRY, N VENOUS 0 CARE CLEO T BLOOD ASSOCIATE VENIPUNCT S URE HEMOGLOBI 93036 FAMILY MULBERRY, N 0 CARE CLEO T GLYCOSYLA ASSOCIATE ALEX A1C S BLOOD 32413 FAMILY MULBERRY, COUNT 0 CARE CLEO T COMPLETE ASSOCIATE AUTO&AUTO S DIFRNTL WBC BLOOD 47497 FAMILY MULBERRY, COUNT 0 CARE CLEO T COMPLETE ASSOCIATE AUTO&AUTO S DIFRNTL WBC BASIC 72397 COMBINED COMBINED METABOLIC 0 PHYSICIAN PHYSICIAN PANEL S LAB S LAB CALCIUM TOTAL COLLECTIO 59483 FAMILY MULBERRY, N VENOUS 0 CARE CLEO T BLOOD ASSOCIATE VENIPUNCT S URE LANCETS A4259 [facility] PER BOX 0 HOME MED HOME MED OF [facility] BLD GLU A4253 REID MATHEWS TEST/REAG 0 HOME MED HOME MED T STRIPS [facility] GLU MON[facility] [address] FAMILY LOGANBERRY, DISCHARGE 0 CARE CLEO T DAY ASSOCIATE MANAGEMEN S T > 30 MIN RADIOLOGI 64717 John ANTON EXAM 0 MEDICAL XAVI P CHEST 2 IMAGING VIEWS ASSOCIATE FRONTAL&L S ATERAL SBSQ 62526 FAMILY JADA, HOSPITAL 0 CARE CLEO T CARE/DAY ASSOCIATE 25 S MINUTES ECG 86544 EMEKA BRENDEN, ROUTINE 0 EMERGENCY [facility] ECG SERVICES W/LEAST 12 LDS ASSOCIATE I&R ONLY S RADIOLOGI 45959 LIZZ WADE, C EXAM 0 MEDICAL RAYMUNDO CHEST 2 IMAGING VIEWS ASSOCIATE FRONTAL&L S ATERAL ECHO 05366 [facility], TTHRC R-T 0 PHYSICIAN MINNA [place] GROUP W/WOM-MOD E COMPL SPEC&COLR D INITIAL 28292 [facility] 0 CARE CLEO T CARE/DAY ASSOCIATE 50 S MINUTES [place]ULM [place] [address] [facility] BRIANSHERI, PART VNTJ 0 MEDICAL RAYMUNDO IMG IMAGING AERSL ASSOCIATE 1/FENCE POST CUTTER S PRJCJ INTRO 90780 EMEKA BRENDEN, NEEDLE/IN 0 EMERGENCY [facility] TRACATH SERVICES EXTREMITY ARTERY ASSOCIATE S GROUND A0425 [facility] MILEAGE 0 AMBULANCE AMBULANCE PER SERVICE SERVICE STATUTE MILE AMB A0427 [facility] SERVICE 0 AMBULANCE AMBULANCE ALS SERVICE SERVICE EMERGENCY TRANSPORT LEVEL 1 IAADIADOO 89047 [facility], 0 CARE CLEO T STREPTOCO ASSOCIATE CCUS S GROUP A ORTHOPANT 08196 [facility] W[facility], OGRAM 0 MEDICAL RAYMUNDO IMAGING ASSOCIATE S RENAL 05245 ZACK DIXON FUNCTION 0 [facility] PANEL INC INC COLLECTIO 33049 ZACK DIXON N VENOUS 0 [facility] BLOOD INC INC VENIPUNCT URE BLD GLU A4253 DIABETES DIABETES TEST/REAG 0 CARE CLUB CARE CLUB T STRIPS [facility] HOME BLD GLU MON-50 LANCETS A4259 DIABETES DIABETES PER BOX 0 CARE CL[facility] CARE CLUB OF 100 [facility] NORMAL A4256 DIABETES DIABETES LOW AND 0 CARE CLUB CARE CLUB HIGH [facility] CALIBRATO R SOLUTION/ CHIPS RENAL 05990 ZACK DIXON FUNCTION 9 [facility] PANEL INC INC COLLECTIO 77873 ZACK DIXON N VENOUS 9 [facility] BLOOD INC INC VENIPUNCT URE ELECTRIC E0215 DIABETES DIABETES HEAT PAD 9 CARE CLUB CARE CLUB [facility] LANCETS A4259 DIABETES DIABETES PER BOX 9 [facility] NORMAL A4256 DIABETES DIABETES LOW AND 9 [facility] CALIBRATO R SOLUTION/ CHIPS BLD GLU A4253 DIABETES DIABETES TEST/REAG 9 CARE CLUB CARE CL[facility] T [facility] [place] [address] ZACK DIXON RETROPERI 9 [facility] TONEAL INC INC REAL TIME W/IMAGE COMPLETE RENAL 19276 ZACK DIXON FUNCTION 9 [facility] PANEL INC INC URNLS DIP 23442 ZACK DIXON 9 [facility] STICK/TAB INC INC LET REAGENT AUTO MICROSCOP Y COLLECTIO 95290 ZACK DIXON N VENOUS 9 [facility] BLOOD INC INC VENIPUNCT URE COMPLEMEN 97125 ZACK DIXON T 9 [facility] FUNCTIONA INC INC L ACTIVITY EACH COMPONENT SUSCEPTIB 57809 ZACK DIXON LTY STDY 9 [facility] ANTIMICRB INC INC IAL MICRO/AGA R DILUTJ CULTURE 75397 ZACK DIXON BCT 9 [facility] ISOL&PRSM INC INC PTV ID ISOLATE EA URINE ANTISTREP 93847 ZACK DIXON TOLYSIN O 9 [facility] SCREEN INC INC CULTURE 95978 ZACK DIXON BACTERIAL 9 [facility] INC INC QUANTTATI VE COLONY COUNT URINE ANTINUCLE 94581 ZACK DIXON AR 9 [facility] [place] [address] ZACK DIXON BLOOD/URI 9 [facility] C ACID INC INC BASIC 74984 ZACK DIXON METABOLIC 9 [facility] PANEL INC INC CALCIUM TOTAL COLLECTIO 32080 ZACK DIXON N VENOUS 9 [facility] BLOOD INC INC VENIPUNCT URE COLLECTIO 27345 ZACK DIXON N VENOUS 9 [facility] [place] [address] ZACK DIXON THYROID 9 [facility] STIMULATI INC INC NG HORMONE TSH COMPREHEN 11609 ZACK DIXON SIVE 9 [facility] METABOLIC INC INC PANEL BLOOD 33475 ZACK DIXON COUNT 9 [facility] COMPLETE INC INC AUTO&AUTO DIFRNTL WBC REPL KIM A4235 DIABETES DIABETES LITHIUM 9 CARE CLUB CARE CLUB MED NECES [facility] LIBERTY BG MON OWN PT EA SPRING-PO A4258 DIABETES DIABETES WERED 9 CARE CLUB CARE CLUB DEVICE [facility] FOR LANCET EACH BLD GLU A4253 DIABETES DIABETES TEST/REAG 9 CARE CLUB CARE CLUB T [facility] HOME BLD GLU MON-50 NORMAL A4256 DIABETES DIABETES LOW AND 9 CARE CLUB CARE CLUB [facility]IGH [facility] CALIBRATO R SOLUTION/ CHIPS LANCETS A4259 DIABETES DIABETES PER BOX 9 CARE CLUB CARE CLUB OF 100 [facility] OPHTH [address] LORRAINE PETERS, MEDICAL 9 GEE A GEE A XM&EVAL COMPRHNSV ESTAB PT 1/ COLLECTIO 13735 FAMILY MULBERRY, N VENOUS 9 CARE CLEO T BLOOD ASSOCIATE VENIPUNCT S URE CREATININ 21606 FAMILY MULBERRY, E OTHER 9 CARE CLEO T SOURCE ASSOCIATE S HEMOGLOBI 43833 COMBINED COMBINED N 9 PHYSICIAN PHYSICIAN GLYCOSYLA S LAB S LAB ALEX A1C ALBUMIN 04896 FAMILY MULBERRY, URINE 9 CARE CLEO T MICROALBU ASSOCIATE MIN S SEMIQUANT ITATIVE LANCETS A4259 DIABETES DIABETES PER BOX 9 CARE CLUB [facility] 100 [facility] NORMAL A4256 DIABETES DIABETES LOW AND 9 CARE CLUB CARE CLUB HIGH [facility] CALIBRATO R SOLUTION/ CHIPS BLD GLU A4253 DIABETES DIABETES TEST/REAG 9 CARE CLUB CARE CLUB T [facility] HOME BLD GLU MON-50 BLD GLU A4253 DIABETES DIABETES TEST/REAG 8 CARE CLUB CARE CLUB T [facility] HOME BLD GLU MON-50 NORMAL A4256 DIABETES DIABETES LOW AND 8 CARE CLUB CARE [facility] CALIBRATO R SOLUTION/ CHIPS LANCETS A4259 DIABETES DIABETES PER BOX 8 CARE CLUB CARE CLUB OF 100 [facility] THERAPEUT 63465 PROFESSIO CROSSFIEL ACTVITY 8 NAL REHAB D, DIRECT PT ASSOC DANNITA CONTACT PSC EACH 15 MIN MANUAL 78677 PROFESSIO CROSSFIEL THERAPY 8 NAL REHAB D, TQS 1/> ASSOC DANNITA REGIONS PSC EACH 15 MINUTES THERAPEUT 89654 PROFESSIO CROSSFIEL IC PX 1/> 8 NAL REHAB D, AREAS ASSOC DANNITA EACH 15 PSC MIN EXERCISES CANE E0105 REID MATHEWS QUAD/3-ME 8 HOME MED HOME MED GABINO ALL EQUIP. EQUIP. [facility] ADJUSTBL/ FIX W/TIPS THERAPEUT 31711 PROFESSIO CROSSFIEL IC PX 1/> 8 NAL REHAB D, AREAS ASSOC DANNITA EACH 15 PSC MIN EXERCISES MANUAL 80606 PROFESSIO CROSSFIEL THERAPY 8 NAL REHAB D, TQS 1/> ASSOC DANNITA REGIONS PSC EACH 15 MINUTES PHYSICAL 98495 PROFESSIO CROSSFIEL THERAPY 8 NAL REHAB D, EVALUATIO ASSOC DANNITA N PSC RADEX 60668 ZACK DIXON SPINE 8 [facility] LUMBOSACR INC INC AL MINIMUM 4 VIEWS RADEX HIP 63465 ZACK DIXON 8 [facility] UNILATERA INC INC L COMPLETE MINIMUM 2 VIEWS Encounters Encounter Start End Date Code Location Performer Type Date HOSPITAL ZACK - 7 7 [facility] INPATIENT INC EMERGENCY 36809 RUDY JOINER DEPT 7 7 PHYSICIAN VISIT S, [facility] HIGH SEVERITY& THREAT [facility] ZACK - 6 6 [facility] OUTPATIEN INC T OFFICE 42348 CAMERON GORDILLO OUTPATI 6 6 MEDICAL T VISIT SERV 25 FOUNDATIO MINUTES N HOSPITAL ZACK - 6 6 [facility] OUTPATIEN [facility] T EMERGENCY 53960 RUDY JIMENEZ DEPT 6 6 PHYSICIAN LEANN VISIT S, [facility] HIGH SEVERITY& THREAT [facility] ZACK Oquendo OTHER 6 6 [facility] INC OFFICE 22116 [place] ERIBERTO GORDILLO OUTPATIEN 6 6 MEDICAL T VISIT SERV 25 FOUNDATIO MINUTES N HOSPITAL ZACK - OTHER 6 6 [facility] INC OFFICE 32121 [place] WILL OUTPATIEN 6 6 [facility] T VISIT INTERNAL 15 MEDI MINUTES EMERGENCY 43923 ZACK 6 6 [facility] DEPARTMEN INC T VISIT HIGH/URGE NT SEVERITY EMERGENCY 31075 RUDY [facility] 6 6 PHYSICIAN VISIT S, [facility] HIGH SEVERITY& THREAT [facility] ZACK - 6 6 [facility] OUTPATIEN INC T OFFICE 07892 [place] V[place]AY OUTPATIEN 6 6 [facility] T VISIT INTERNAL 15 MED MINUTES EMERGENCY 22898 ZACK 6 6 [facility] DEPARTMEN INC T VISIT MODERATE SEVERITY HOSPITAL ZACK - 6 6 [facility] OUTPATIEN INC T EMERGENCY 25343 RUDY WILCOX 6 6 PHYSICIAN CHIDI DEPARTMEN [facility] T VISIT HIGH/URGE NT SEVERITY [facility] INPATIENT 6 6 [facility] INPATIENT [address] [facility] EMERGENCY 70674 ZACK 5 5 [facility] DEPARTMEN INC T VISIT LOW/MODER SEVERITY HOSPITAL ZACK - 5 5 [facility] OUTPATIEN INC T [facility] 5 5 [facility] IN[facility] 5 5 [facility] ZACK - 5 5 [facility] INPATIENT INC OFFICE 63299 ZACK PEREZPATIEN 5 5 [facility] T VISIT 5 HOSPITAL MINUTES P HOSPITAL ZACK - 5 5 [facility] OUTPATIEN INC T EMERGENCY 29852 ZACK 5 5 [facility] T VISIT LIMITED/M INOR PROB OFFICE 16295 ZACK CLADERON OUTPATIEN 5 5 [facility] 10 P MINUTES OFFICE 24383 CAMERON STEWARTEN 5 5 MEDICAL T VISIT SERV 25 FOUNDATIO MINUTES HOSPITAL ZACK - 5 5 [facility] OUTPATIEN [facility] HOSPITAL ZACK - 5 5 [facility] T OFFICE 57378 [place] WILL OUTPATIEN 5 5 [facility] VISIT INTERNAL 25 MEDI [facility] ZACK - 5 5 [facility] OUTPATIEN [facility] T OFFICE 35400 ZACK CALDERON OUTPATIEN 5 5 [facility] 15 P MINUTES HOSPITAL ZACK - OTHER 5 5 [facility] INC OFFICE 00433 ZACK CALDERON OUTPATIEN 5 5 [facility] 10 P MINUTES [facility] INPATIENT [address] [facility] OFFICE 42683 CAMERON GORDILLO OUTPATIEN 5 5 MEDICAL T VISIT SERV 25 FOUNDATIO MINUTES [facility] INPATIENT 5 5 [facility] INPATIENT 5 5 [facility] INPATIENT 5 5 [facility] ZACK - 5 5 [facility] INPATIENT INC EMERGENCY 09697 ZACK Dawn 5 5 [facility] T VISIT P LOW/MODER SEVERITY HOSPITAL ZACK - 5 5 [facility] OUTPATIEN [facility] HOSPITAL ZACK - 5 5 [facility]PAT[facility]EN [facility] T OFFICE 28779 CAMERON GORDILLO OUTONESIMO 4 4 MEDICAL T VISIT SERV 25 FOUNDATIO MINUTES [facility] ZACK - 4 4 [facility] OUTPATIEN [facility] T EMERGENCY 59722 [facility] DEPT 4 4 ERIC IMT VISIT EMERGENCY HIGH PHYS SEVERITY& THREAT [facility]J EMERGENCY 64057 ZACK 4 4 [facility] T VISIT MODERATE SEVERITY HOSPITAL ZACK - 4 4 [facility] OUTPATIEN [facility] HOSPITAL ZACK - OTHER 4 4 [facility] ZACK - 4 4 [facility] OUTPATIEN [facility] OFFICE 35179 CAMERON GORDILLO OUTPATIEN 4 4 MEDICAL T VISIT SERV 25 [facility] ZAKC - OTHER 4 4 [facility] ZACK - 4 4 [facility] OUTPATIEN [facility] OFFICE 95648 [facility] OUTPATIEN 3 3 PHYSICIAN JAM T VISIT S GROUP 15 MINUTES OFFICE 89555 CAMERON GORDILLO OUTPATIMICA 3 3 MEDICAL T VISIT SERV 25 [facility] ZACK - 3 3 [facility] OUTPATIEN [facility] Emergency RIP Shin (ER) 3 08:47 3 09:14 [facility] E. EMERGENCY 21566 ZACK 3 3 [facility] T VISIT LIMITED/M INOR [facility] ZACK Oquendo 3 3 [facility] OUTPATIEN [facility] EMERGENCY 05866 EMEKA SHIN 3 3 EMERGENCY III [facility] T VISIT HIGH/URGE NT SEVERITY Emergency RIP Shields MD (ER) 3 07:59 3 14:30 [facility] ZACK - 3 3 [facility] OUTPATIEN [facility] EMERGENCY 06368 ZACK 3 3 [facility] VISIT HIGH/URGE NT SEVERITY EMERGENCY 78588 EMEKA LIRA DEPT 3 3 EMERGENCY VISIT SERVICES HIGH SEVERITY& THREAT [facility] ZACK - 3 3 [facility]IEN [facility] ZACK - 3 3 [facility] OUTPATIEN [facility] OFFICE 44852 [place] ERIBERTO GORDILLO OUTPATIEN 3 3 MEDICAL T VISIT SERV 25 [facility] ZACK - 3 3 [facility] OUTPATIEN [facility] ZACK - 3 3 [facility] OUTPATIEN [facility] ZACK [facility] 3 3 [facility]PATIEN [facility] ZACK - 3 3 [facility] OUTPATIEN [facility] ZACK [facility] 3 3 [facility] OUTPATIEN [facility] ZACK - 2 2 [facility] OUTPATIEN [facility] EMERGENCY 53323 EMEKA CASTELLANO DEPT 2 2 EMERGENCY VISIT SERVICES HIGH SEVERITY& THREAT [facility] ZACK - 2 2 [facility]PATIEN [facility] ZACK - 2 2 [facility] OUTPATIEN [facility] OFFICE 27405 [place] WE[place] RAND OUTPATIEN 2 2 MEDICAL T VISIT SERV 25 [facility] ZACK - 2 2 [facility]PATIEN [facility] ZACK - 2 2 [facility] ZACK - 2 2 [facility] OUTPATIEN [facility] OFFICE 16900 [place] OUTPATIEN 2 2 MEDICAL T VISIT SERV [facility] ZACK - 2 2 [facility] OUTPATIEN INC T EMERGENCY 82816 EMEKA SHIN DEPT 2 2 EMERGENCY III NANCY VISIT SERVICES HIGH SEVERITY& THREAT [facility] ZACK - 2 2 [facility] OUTPATIEN INC T EMERGENCY 98614 ZACK 2 2 [facility] DEPARTMEN INC T VISIT HIGH/URGE NT SEVERITY HOSPITAL ZACK - 2 2 [facility] OUTPATIEN INC T EMERGENCY 19620 EMEKA WILCOX DEPT 2 2 EMERGENCY CHIDI VISIT SERVICES HIGH SEVERITY& THREAT [facility] ZACK - 2 2 [facility] OUTPATIEN INC T EMERGENCY 64633 ZACK 2 2 [facility] DEPARTMEN INC T VISIT HIGH/URGE NT SEVERITY HOSPITAL ZACK - 2 2 [facility] INPATIENT INC OFFICE 72974 FAMILY STRAWZELL OUTPATIEN 2 2 CARE CRI T VISIT ASSOCIATE 25 S, [facility] MINUTES OFFICE 06432 FAMILY STRAWZELL OUTPATIEN 2 2 CARE CRI T VISIT ASSOCIATE 15 S, [facility] ZACK - 2 2 [facility] OUTPATIEN INC T EMERGENCY 87795 ZACK 2 2 [facility] LOW/MODER SEVERITY EMERGENCY 32983 EMEKA SHIN 2 2 EMERGENCY III [facility] T VISIT HIGH/URGE NT SEVERITY OFFICE 76400 CAMERON GORDILLO OUTPATIEN 2 2 MEDICAL T VISIT SERV 25 [facility] ZACK - 2 2 [facility] OUTPATIEN INC T OFFICE 20464 PAWSAT PAWSAT OUTPATIEN 2 2 Aug T [facility] 30 [facility] ZACK - 1 1 [facility] OUTPATIEN INC OFFICE 47971 [place] OUTPATIEN 1 1 MEDICAL T VISIT SERV 25 FOUNDATIO [facility] ZACK - 1 1 [facility]PATIEN [facility] ZACK - 1 1 [facility] OUTPATIEN [facility] HOSPITAL ZACK - 1 1 [facility] OUTPATIEN INC EMERGENCY 30055 EMEKA HARDY 1 1 EMERGENCY DEPARTMEN SERVICES T VISIT MODERATE SEVERITY HOSPITAL ZACK - 1 1 [facility] OUTPATIEN [facility] ZACK - 1 1 [facility] ZACK [facility] 1 1 [facility] OUTPATIEN [facility] OFFICE 37900 [place] [facility] OUTPATIEN 1 1 [place] T NEW 45 CLINIC MINUTES [facility] ZACK - 1 1 [facility] OUTPATIEN [facility] OFFICE 03748 [place] OUTPATIEN 1 1 MEDICAL T NEW 60 SERV MINUTES [facility] ZACK - 1 1 [facility] OUTPATIEN INC OFFICE 63540 FAMILY MULBERRY OUTPATIEN 1 1 CARE NILO T VISIT ASSOCIATE 40 S MINUTES EMERGENCY 14073 EMEKA WU 1 1 EMERGENCY JAM DEPARTMEN SERVICES T VISIT MODERATE SEVERITY HOSPITAL ZACK - 1 1 [facility] OUTPATIEN INC T EMERGENCY 04425 ZACK 1 1 [facility] DEPARTMEN INC T VISIT LOW/MODER SEVERITY OFFICE 56931 FAMILY MULBERRY OUTPATIEN 1 1 CARE NILO T VISIT ASSOCIATE 25 S MINUTES OFFICE 98207 FAMILY MULBERRY OUTPATIEN 1 1 CARE NILO T VISIT ASSOCIATE 15 S MINUTES HOSPITAL ZACK - 1 1 [facility] OUTPATIEN INC T OFFICE 36624 ALLUJLIA JR ALLJULIA SLOAN OUTPATIEN 1 1 [facility] ZACK - 1 1 [facility] OUTPATIEN INC T HOSPITAL ZACK - 1 1 [facility] OUTPATIEN INC T OFFICE 74056 FAMILY JADA OUTPATIEN 1 1 CARE NILO T VISIT ASSOCIATE 25 S MINUTES EMERGENCY 38568 ZACK 1 1 [facility] DEPARTMEN INC T VISIT LOW/MODER SEVERITY EMERGENCY 68942 EMEKA POWELLDARLENE CASTELLANO 1 1 EMERGENCY DEPARTMEN SERVICES T VISIT HIGH/URGE NT SEVERITY HOSPITAL ZACK - 1 1 [facility] OUTPATIEN INC T OFFICE 82673 FAMILY BRENDAN J OUTPATIEN 1 1 CARE T VISIT ASSOCIATE 15 S MINUTES HOSPITAL ZACK - 0 0 [facility] OUTPATIEN INC T EMERGENCY 16351 EMEKA BRENDEN 0 0 EMERGENCY CHIDI DEPARTMEN SERVICES T VISIT HIGH/URGE NT SEVERITY EMERGENCY 46065 ZACK 0 0 [facility] DEPARTMEN INC T VISIT LOW/MODER SEVERITY OFFICE 70712 FAMILY BRENDAN J OUTPATIEN 0 0 CARE T VISIT ASSOCIATE 15 S MINUTES OFFICE 25886 FAMILY BRENDAN J OUTPATIEN 0 0 CARE T VISIT ASSOCIATE 15 S MINUTES HOSPITAL ZACK - 0 0 [facility] OUTPATIEN INC T OFFICE 01109 FAMILY JADA OUTPATIEN 0 0 CARE NILO T VISIT ASSOCIATE 25 S MINUTES HOSPITAL ZACK - 0 0 [facility] OUTPATIEN INC T HOSPITAL ZACK - 0 0 [facility] OUTPATIEN INC T OFFICE 65403 [facility] OUTPATIEN 0 0 PHYSICIAN JAM T NEW 45 S GROUP MINUTES HOSPITAL ZACK - 0 0 [facility] OUTPATIEN INC T EMERGENCY 15419 EMEKA WILCOX 0 0 EMERGENCY CHIDI DEPARTMEN SERVICES T VISIT HIGH/URGE NT SEVERITY EMERGENCY 55196 ZACK 0 0 [facility] DEPARTMEN INC T VISIT MODERATE SEVERITY OFFICE 01979 FAMILY MULBERRY OUTPATIEN 0 0 CARE NILO T VISIT ASSOCIATE 25 S MINUTES OFFICE 38215 FAMILY MULBERRY, OUTPATIEN 0 0 CARE CLEO T T VISIT ASSOCIATE 15 S MINUTES OFFICE 62484 FAMILY MULBERRY, OUTPATIEN 0 0 CARE CLEO T T VISIT ASSOCIATE 25 S MINUTES OFFICE 17892 FAMILY MULBERRY, OUTPATIEN 0 0 CARE CLEO T T VISIT ASSOCIATE 15 S MINUTES OFFICE 26406 FAMILY MULBERRY, OUTPATIEN 0 0 CARE CLEO T T VISIT ASSOCIATE 25 S MINUTES HOSPITAL ZACK - 0 0 [facility] INPATIENT INC EMERGENCY 51771 EMEKA WILCOX, DEPT 0 0 EMERGENCY TAYA S VISIT SERVICES HIGH SEVERITY& ASSOCIATE THREAT S FUNCJ OFFICE 02775 FAMILY MULBERRY, OUTPATIEN 0 0 CARE CLEO T T VISIT ASSOCIATE 15 S MINUTES HOSPITAL ZACK - 0 0 [facility] OUTPATIEN INC T EMERGENCY 92133 ZACK 0 0 [facility] DEPARTMEN INC T VISIT LOW/MODER SEVERITY HOSPITAL ZACK - 0 0 [facility] OUTPATIEN INC T OFFICE 35818 MEANS BUTROS, OUTPATIEN 9 9 ADULT REZKALLA T VISIT PRIMARY 15 CARE MINUTES [facility] ZACK - 9 9 [facility] OUTPATIEN INC T OFFICE 94415 MEANS BUTROS, OUTPATIEN 9 9 ADULT REZKALLA T VISIT PRIMARY 25 CARE MINUTES [facility] ZACK - 9 9 [facility] OUTPATIEN INC T OFFICE 37716 FRANK ALENA [place] 9 9 ADULT BERNARDA ION PRIMARY [facility] 80 MIN HOSPITAL ZACK - 9 9 [facility] OUTPATIEN INC T OFFICE 03592 FAMILY ELIAS OUTPATIEN 9 9 CARE CLEO T T VISIT ASSOCIATE 15 S MINUTES OFFICE 76782 FAMILY ELIAS OUTPATIEN 9 9 CARE CLEO T T VISIT ASSOCIATE 25 S MINUTES HOSPITAL ZACK - 9 9 [facility] OUTPATIEN INC T OFFICE 07944 FAMILY ELIAS OUTPATIEN 9 9 CARE CLEO T T VISIT ASSOCIATE 25 S MINUTES OFFICE 57019 CHRIS WALLACEPATIMICA 8 8 CARE R PADMINI T VISIT ASSOCIATE 25 S MINUTES HOSPITAL ZACK - 8 8 [facility] OUTPATIEN INC T OFFICE 33138 Sameer MARCOS OUTPATIEN 8 8 CARE G T VISIT ASSOCIATE 15 S MINUTES EMERGENCY 82101 ZACK LINN, 8 8 [facility] T VISIT PROF SERV LOW/MODER SEVERITY HOSPITAL ZACK - 8 8 [facility] OUTPATIEN INC T HOSPITAL ZACK - 8 8 [facility] OUTPATIEN INC T EMERGENCY 42641 ZACK 8 8 [facility] T VISIT LIMITED/M INOR PROB
--- OUTSIDE RECORDS SUMMARY | 2016-10-19 17:06 | External Medical Summary Rpt ---
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 Name Role Phone CALDERON VALENTINE, CALDERON Unavailable [...] TRACY, BESSON Unavailable Unavailable TRACY RODRIGUEZ ALL, RDORIGUEZ ALL Unavailable Unavailable [facility] Unavailable Unavailable SERVICE, [facility] Unavailable Unavailable SERVICE, [facility] BUTROS, REZKALLA, Unavailable Unavailable BUTROS, REZKALLA [facility] Unavailable Unavailable CONSULTANTS O, [facility] Unavailable Unavailable CAMPUS, [facility] Unavailable Unavailable CAMPUS, [facility] Unavailable Unavailable [place], [facility] [...] Unavailable MARISOL ANDREZ, Unavailable Unavailable MARISOL ANDREZ [facility] Unavailable Unavailable INC, [facility] Unavailable [facility]available Hospital, [facility] Unavailable [facility]available HOSPITAL P, [facility] P PETERS LANNY, PETERS LANNY Unavailable Unavailable PETERS LANNY, PETERS LANNY Unavailable Unavailable PETERS, GEE A, Unavailable Unavailable PETERS, GEE A [facility], Unavailable Unavailable [facility] RHYS JOINER Unavailable Unavailable KLARISSA IMT, KLARISSA Unavailable Unavailable IMT Scarlet Patterson 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, Unavailable Unavailable Scarlet Patterson 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 [facility] Unavailable Unavailable [facility], [facility] KOTTER JUAN J, KOTTER [...] MED [facility] Unavailable Unavailable [facility], [facility] Unavailable Unavailable SERVICES, [facility] MCKEMIE JR NANCY, Unavailable Unavailable MCKEMIE JR NANCY [facility] EPPS P, Unavailable Unavailable [facility] MULBERRY NILO, Unavailable Unavailable MULBERRY NILO MULBERRY, CLEO T, Unavailable Unavailable MULBERRY, CLEO T CROWELL SON, CROWELL SON Unavailable Unavailable [facility] Unavailable Unavailable [facility], [facility] Clemente OCAMPO, Unavailable Unavailable Clemente [...] MAT SOKAN BAB, SOKAN BAB Unavailable Unavailable [facility] Unavailable Unavailable [facility], [facility] Unavailable Unavailable [facility], [facility] Unavailable Unavailable [facility], [facility] Unavailable [facility]available [facility], [facility] Unavailable Unavailable [facility], [facility] Unavailable Unavailable EMERGENCY PHYS, [facility] CARDIOLOG[facility] Unavailable Unavailable CLINIC, [facility]IC STRAWZELL CRI, Unavailable Unavailable STRAWZELL [...] DOS Provider Status E109 TYPE 1 09-14-2016 [facility] DIABETES PHYSICIANS MELLITUS GROUP WITHOUT COMPLICATIO NS I213 ST 09-14-2016 [facility] ELEVATION PHYSICIANS MYOCARDIAL GROUP INFARCTION UNS SITE I739 PERIPHERAL 09-14-2016 [facility] VASCULAR PHYSICIANS DISEASE GROUP UNSPECIFIED N183 CHRONIC 09-14-2016 [facility] KIDNEY PHYSICIANS DISEASE GROUP STAGE 3 MODERATE E1142 TYPE 2 09-13-2016 [facility] P W/DIAB POLYNEUROPA THY I119 HYPERTENSIV 09-13-2016 [facility] HEART PHYSICIANS, DISEASE PLLC WITHOUT HEART FAILURE I129 HYPERTENSIV 09-13-2016 [facility] CKD [facility] W/STAGE 1-4 INC CKD OR UNS CKD T79651 ASHD CHEESH-NA 09-13-2016 [facility] COR ART [facility] W/UNSTABLE INC ANGINA PECTORIS I5043 ACUTE ON 09-13-2016 [facility] P SYSTOLIC & DIASTOLIC CHF I773 ARTERIAL 09-13-2016 [facility] FIBROMUSCUL [facility] AR INC DYSPLASIA R0602 SHORTNESS 09-13-2016 [facility] OF BREATH PHYSICIANS GROUP R0689 OTHER 09-13-2016 [facility] ES OF SERVICE BREATHING Z794 HALFWAY 09-13-2016 [facility] CURRENT USE [facility] OF INSULIN INC E039 HYPOTHYROID 06-09-2016 [facility] ISM [facility] UNSPECIFIED INC E118 TYPE 2 06-09-2016 [facility] DIABETES [facility] MELLITUS INC W/UNS COMPLICATIO NS E119 TYPE 2 03-21-2016 [place] [facility] DI[facility]ET[facility] SERV MELLITUS FOUNDATION WITHOUT COMPLICATIO NS M810 AGE-RELATED 03-21-2016 [place] [facility] OSTEOPOROSI FOUNDATION S W/O CURRNT PATH FX N184 CHRONIC 03-21-2016 [place] [facility] K[facility] [facility] DISEASE FOUNDATION STAGE 4 SEVERE N250 RENAL 03-21-2016 [place] [facility] OSTEODYSTRO SERV PHY FOUNDATION N390 URINARY 03-18-2016 [facility]ICIANS INFECTION LA SITE NOT SPECIFIED X14059 TYPE 2 02-28-2016 [facility] MELLITUS [facility] P W/HYPOGLYCE VICTORIANO W/O COMA E162 HYPOGLYCEMI 02-28-2016 [facility]za PHYSICIANS, UNSPECIFIED PLLC E876 HYPOKALEMIA 02-28-2016 [facility] INC I10 ESSENTIAL 02-28-2016 [facility] N I5032 CHRONIC 02-28-2016 [facility] P HEART FAILURE R410 DISORIENTAT 02-28-2016 [facility] UNSPECIFIED SERVICE Z591 INADEQUATE 02-28-2016 [facility] H[facility] INC Q84139 OTHER LONG 02-28-[address] [facility] [facility] CURRENT INC DRUG THERAPY G4733 OBSTRUCTIVE 02-15-2016 [facility] SLEEP HOME APNEA ADULT MEDICAL PEDIATRIC EQUIPME [id number] MX FX 02-15-2016 [facility] PELVIS STBL HOME [...] [facility] RESPONSIVEN SERVICE ESS S49561 CELLULITIS 08-16-2015 [facility] [place] LOWER LIMB INTERNAL MED J88905 CELLULITIS 08-16-2015 [facility] [place] LEFT [place] LOWER LIMB INTERNAL MED E1021 TYPE 1 08-10-2015 [facility] DIABETES [facility] MELLITUS INC W/DIABETIC NEPHROPATHY E1065 TYPE 1 08-10-2015 [facility] DIABETES [facility] MELLITUS INC WITH HYPERGLYCEM IA E138 OTH SPEC 08-10-2015 [facility] DIABETES PHYSICIANS, MELLITUS PLLC W/UNS COMPLICATIO NS Y50823 CELLULITIS 08-10-2015 [facility] OF PHYSICIANS, UNSPECIFIED PLLC PART OF LIMB R739 HYPERGLYCEM 08-10-2015 [facility] [place] [facility] UNSPECIFIED SERVICE L853 XEROSIS 08-09-2015 [facility] CUTIS [place]IPTON INTERNAL MED E6601 MORBID 08-05-2015 [facility] SEVERE [place] OBESITY DUE INTERNAL TO EXCESS MEDI CALORIES I270 PRIMARY 07-20-2015 [facility] HYPERTENSIO CAMPUS N I5030 UNSPECIFIED 07-20-2015 [facility] CONGESTIVE ALLEN HEART FAILURE R0600 DYSPNEA 07-20-2015 [facility] HEALTH ALLEN M542 CERVICALGIA 07-12-2015 [facility] MOBILEX M546 PAIN IN 07-12-2015 [facility] THORACIC MOBILEX SPINE I509 HEART 07-11-2015 [facility] FAILURE VALLEY UNSPECIFIED INTERNAL MED I8311 VARICOSE 07-11-2015 [facility] VEINS RT VALLEY LOWER INTERNAL EXTREMITY MED W/INFLAMMAT ION M4003 POSTURAL 07-11-2015 [facility] KYPHOSIS NIPTON CERVICOTHOR INTERNAL ACIC REGION MED R05 COUGH 06-05-2015 [facility] R600 LOCALIZED 05-09-2015 [facility] EDEMA LAR CONSULTANTS O I348 OTHER 05-05-2015 [place] MEDICAL NONRHEUMATI SERV C MITRAL FOUNDATION VALVE DISORDERS I361 NONRHEUMATI 05-05-2015 [place] [facility] C TRICUSPID SERV VALVE FOUNDATION INSUFFICIEN CY I371 NONRHEUMATI 05-05-2015 [place] [facility] C PULMONARY SERV VALVE FOUNDATION INSUFFICIEN [...] INC ADULT N3020 OTHER 04-28-2015 [facility] P WITHOUT HEMATURIA J209 ACUTE 03-31-2015 [facility] BRONCHITIS [facility] HOSP UNSPECIFIED INC I90261 PERSONAL 03-31-2015 [facility] HISTORY OF MEM HOSP NICOTINE INC DEPENDENCE A499 BACTERIAL 03-23-2015 [place] MEDICAL INFECTION SERV UNSPECIFIED FOUNDATION R279 UNSPECIFIED 03-19-2015 [facility] LACK OF MEM HOSP COORDINATIO INC N Z5189 ENCOUNTER 03-19-2015 [facility] FOR OTHER MEM HOSP SPECIFIED INC AFTERCARE 83016 DIAB W/O 03-17-2015 [facility] COMP TYPE I HOME [JUV] NOT MEDICAL STATED EQUIPME UNCNTRL 27979 OBSTRUCTIVE 03-17-2015 [facility] SLEEP HOME APNEA MEDICAL EQUIPME 77866 MULTIPLE 03-17-2015 [facility] CLOSED HOME PELVIC FX MEDICAL DISRUPT EQUIPME PELVIC UPPER [place] 2449 UNSPECIFIED 03-10-2015 [facility]OS[facility] HYPOTHYROID INC ISM 02849 DIAB W/O 03-10-2015 [facility] COMP TYPE [facility] II/UNS NOT INC STATED UNCNTRL 5854 CHRONIC 03-10-2015 [facility] KIDNEY [facility] DISEASE INC STAGE IV (SEVERE) 5990 URINARY 03-10-2015 [facility] TRACT [facility] INFECTION INC SITE NOT SPECIFIED 35102 UNSPECIFIED 03-10-2015 [facility] OSTEOPOROSI INC S 4019 UNSPECIFIED 03-02-2015 [facility] ESSENTIAL VALLEY HYPERTENSIO INTERNAL N MEDI 4541 VARICOSE 03-02-2015 [place] VE[place] LOWER [place] INTERNAL EXTREMITIES MEDI W/INFLAMMAT ION 69052 UNSPECIFIED 03-02-2015 [place] [place] CONSTIPATIO INTERNAL N MEDI 5939 UNSPECIFIED 03-02-2015 [facility] DISORDER VALLEY OF KIDNEY INTERNAL AND URETER MEDI 7823 EDEMA 03-02-2015 [facility] INTERNAL MEDI 70283 UNSPECIFIED 03-02-2015 [facility] RETENTION VAL[place] OF URINE INTERNAL MEDI 78313 UNSPECIFIED 02-24-2015 [facility] ARTHROPATHY [facility] P MULTIPLE SITES 7813 LACK OF 02-24-2015 [facility] P V571 OTHER 02-24-2015 [facility] PHYSICAL [facility] THERAPY INC 5952 OTHER 02-03-2015 [facility] CYSTITIS [facility] P 2761 HYPOSMOLALI 01-17-2015 [facility] TY AND/OR HEALTH HYPONATREMI CAMPUS A 27052 LEUKOCYTOSI 01-17-2015 [facility] UNSPECIFIED CAMPUS 5849 ACUTE 01-17-2015 [facility] KIDNEY HEALTH FAILURE CAMPUS UNSPECIFIED 7197 DIFFICULTY 01-17-2015 [facility] IN WALKING HEALTH CAMPUS 32734 MUSCLE 01-17-2015 [facility] WEAKNESS HEALTH (GENERALIZE CAMPUS D) 7993 UNSPECIFIED 01-17-2015 [facility] DEBILITY HEALTH CAMPUS 9953 ALLERGY 01-17-2015 [facility] UNSPECIFIED HEALTH NOT CAMPUS ELSEWHERE CLASSIFIED 45791 HTN CKD UNS 12-25-2014 [place] MEDICAL W/CKD SERV STAGE I FOUNDATION THRU STAGE IV/UNS 515 POSTINFLAMM 12-16-2014 [facility] ATORY MOBILEX PULMONARY FIBROSIS V5881 FITTING AND 12-16-2014 [facility] ADJUSTMENT MOBILEX OF VASCULAR CATHETER 4280 CONGESTIVE 12-09-2014 [facility] HEART MOBILEX FAILURE UNSPECIFIED 4293 CARDIOMEGAL 12-09-2014 [facility] Y MOBILEX 1101 DERMATOPHYT 12-04-2014 [facility] OSIS OF E NAIL 84227 DIAB 12-04-2014 [facility] W/PERIPH E CIRC D/O TYPE II/UNS NOT UNCNTRL 4439 UNSPECIFIED 12-04-2014 [facility] PERIPHERAL E VASCULAR DISEASE 9172 FOOT&TOE 12-04-2014 [facility] BLISTER E WITHOUT MENTION OF INFECTION 9243 CONTUSION 12-04-2014 [facility] OF TOE E 67255 ABDOMINAL 11-03-2014 [place] PAIN RIGHT MEDICAL UPPER IMAGING ASS QUADRANT 5533 DIAPHRAGMAT 11-01-2014 [place] KODY W/O MEDICAL MENTION IMAGING ASS OBSTRUCTION /GANGREN 7905 OTHER 11-01-2014 [place] NONSPECIFIC MEDICAL ABNORMAL IMAGING ASS SERUM ENZYME LEVELS 7862 COUGH 10-30-2014 [facility] V5869 LONG-TERM 10-30-2014 [facility] (CURRENT) [facility] USE OF INC OTHER MEDICATIONS 72914 UNSPECIFIED 10-28-2014 [place] OTALGIA MEDICAL [facility] 7224 DEGENERATIO 10-28-2014 [place] N OF MEDICAL CERVICAL IMAGING ASS INTERVERTEB RAL DISC 7231 CERVICALGIA 10-28-2014 [facility] 57404 SENILE 06-23-2014 [facility] OSTEOPOROSI [facility] S INC 2689 UNSPECIFIED 05-20-2014 [facility] VITAMIN D [facility] DEFICIENCY INC 2724 OTHER AND 05-20-2014 [facility] UNSPECIFIED [facility] HOS[facility] INC HYPERLIPIDE VICTORIANO 75420 OTHER 05-20-2014 [facility] OSTEOPOROSI [facility]OS[facility] S INC 33186 HYPERTENSIV 02-20-2014 [facility] E HEART [facility] DISEASE INC UNSPEC W/HEART FAIL 4660 ACUTE 02-20-2014 [facility] BRONCHITIS [facility] INC 490 BRONCHITIS 02-20-2014 [facility] EMERGENCY SPECIFIED PHYS ACUTE OR CHRONIC 77534 SWELLING OF 02-20-2014 [facility] LIMB N EMERGENCY PHYS 5853 CHRONIC 11-18-2013 [place] MEDICAL KIDNEY SERV DISEASE FOUNDATIO STAGE III (MODERATE) 586 UNSPECIFIED 10-29-2013 [facility] RENAL PHYSICIANS FAILURE [place] 7262 OTHER 05-30-2013 [facility] AFFECTIONS PHYSICIANS OF SHOULDER GROUP REGION NEC 74735 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-2013 [facility] 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 20088 DISORDER OF 05-21-2013 [place] BONE AND MEDICAL CARTILAGE IMAGING ASS UNSPECIFIED V1559 PERSONAL 05-21-2013 [place] HISTORY OF MEDICAL OTHER IMAGING ASS INJURY V4981 ASYMPTOMATI 05-21-2013 [place] C MEDICAL POSTMENOPAU IMAGING ASS KEELY STATUS 30510 UNSPECIFIED 04-29-2013 [facility] INFECTION SERVICES IN CCE & UNS SITE 4659 ACUTE URIS 04-29-2013 [facility] OF EMERGENCY UNSPECIFIED SERVICES SITE 52505 CRAMP OF 04-05-2013 [facility] PHYSICIANS [place] 7241 PAIN IN 01-16-2013 [facility] P 01227 ORTHOPNEA 01-16-2013 [facility] P 65700 OTHER 01-16-2013 [facility] DYSPNEA AND EMERGENCY SERVICES RESPIRATORY ABNORMALITI ES 7265 ENTHESOPATH 10-17-2012 [facility] Y OF HIP [facility] HOS[facility] REGION INC 41475 PAIN IN 08-22-2012 [place] JOINT MEDICAL PELVIC IMAGING ASS REGION AND THIGH 2749 GOUT, 07-16-2012 [place] [address] SHORTNESS 05-28-2012 [facility] 4240 MITRAL 05-27-2012 [facility] DISORDERS INC 45759 OSTEOARTHRO 05-27-2012 [facility] S UNSPEC [facility] H[facility] WHETHER INC GEN/LOC UNSPEC SITE 31223 CHEST PAIN 05-27-2012 [place] UNSPECIFIED MEDICAL IMAGING ASS 77352 OTHER CHEST 05-27-2012 [facility] PAIN [facility] P 5859 CHRONIC 12-01-2011 [facility] KIDNEY [facility] DISEASE INC UNSPECIFIED 84449 HYPERSOMNIA 11-15-2011 [facility]TIST[facility] WITH SLEEP [place] APNEA UNSPECIFIED 21156 ANEMIA OF 10-30-2011 [facility] P DISEASE 2859 UNSPECIFIED 10-30-2011 [facility]IA [facility] 75693 DEGEN 10-30-2011 [place] THORACIC/TH MEDICAL ORACOLUMBAR IMAGING ASS INTERVERTEB RAL DISC 59321 DEGEN 10-30-2011 [place] LUMBAR/LUMB MEDICAL OSACRAL IMAGING ASS INTERVERTEB RAL DISC 7242 LUMBAGO 10-30-2011 [facility] P 7245 UNSPECIFIED 10-30-2011 [facility] BACKACHE EMERG[facility]Y SERVICES 7840 HEADACHE 10-30-2011 [facility] HOSP INC 57979 OTHER 10-20-2011 [place] DISEASES OF MEDICAL LUNG NOT IMAGING ASS ELSEWHERE CLASSIFIED 5199 UNSPECIFIED 10-20-2011 [place] DISEASE OF MEDICAL IMAGING ASS RESPIRATORY SYSTEM V5867 LONG-TERM 10-19-2011 [facility] USE OF [facility] P 3559 MONONEURITI 10-14-2011 [facility] S OF HOME UNSPECIFIED MEDICAL SITE EQUIPME 74492 OTHER 10-14-2011 [facility] MALAISE AND HOME FATIGUE MEDICAL EQUIPME 5180 PULMONARY 10-05-2011 [place] COLLAPSE MEDICAL IMAGING ASS 68088 OTHER 09-30-2011 [facility] STAPHYLOCOC [facility] CUS INC INFECTION IN CCE & UNS SITE 2768 HYPOPOTASSE 09-30-2011 [facility] VICTORIANO [employer] 2888 OTHER 09-30-2011 [facility] SPECIFIED DISEASE OF ASSOCIATES, WHITE BLOOD PSC CELLS 4599 UNSPECIFIED 09-30-2011 [facility] CIRCULATORY INC SYSTEM DISORDER 486 PNEUMONIA, 09-30-2011 [facility] ORGANISM [facility] UNSPECIFIED INC 92391 OTHER 09-30-2011 [place] SPECIFIED MEDICAL DISORDERS IMAGING ASS OF BLADDER 42800 OSTEOARTHRO 09-30-2011 [place] SIS UNSPEC MEDICAL WHETHER IMAGING ASS GEN/LOC LOWER LEG 31043 EFFUSION OF 09-30-2011 [place] LOWER LEG MEDICAL JOINT IMAGING ASS 7291 UNSPECIFIED 09-30-2011 [facility] MYALGIA [employer] MYOSITIS 7295 PAIN IN 09-30-2011 [facility] SOFT TISSUES OF ASSOCIATES, LIMB PSC 7821 RASH AND 09-14-2011 [facility] OTHER NONSPECIFIC ASSOCIATES, SKIN PSC ERUPTION V770 SCREENING 09-14-2011 [facility] FOR THYROID DISORDER ASSOCIATES, PSC V7791 SCREENING 09-14-2011 [facility] FOR LIPOID DISORDERS ASSOCIATES, PSC 41181 DIAB 06-24-2011 [facility] MAR W/NEURO MANIFESTS TYPE II/UNS NOT UNCNTRL 7038 OTHER 06-24-2011 [facility] MAR SPECIFIED DISEASE OF NAIL 11058 SECONDARY 03-29-2011 [facility] OSTEOARTHRO CLINIC PSC SIS LOWER LEG 41194 PAIN IN 03-29-2011 [facility] JOINT, [facility]OS[facility] LOWER LEG INC 57268 BACKGROUND 03-25-2011 [facility] DIABETIC VISION RETINOPATHY 10649 NUCLEAR 03-25-2011 [facility] SCLEROSIS VISION 7820 DISTURBANCE 02-09-2011 [facility] OF SKIN [facility] SENSATION INC 2767 HYPERPOTASS 02-07-2011 [facility] EMIA ASSOCIATES 460 ACUTE 02-07-2011 [facility] NASOPHARYNG ASSOCIATES ITIS 6929 CONTACT 01-27-2011 [facility] DERMATITIS& EMERGENCY OTHER SERVICES ECZEMA DUE UNSPEC CAUSE 12807 PAIN IN 12-09-2010 [facility] JOINT, ASSOCIATES MULTIPLE SITES 80537 UNSPEC 10-28-2010 ALLRAN JR VENTRAL ELAINE KODY W/O MENTION OBST/GANGRE N 25707 ABDOMINAL 09-21-2010 [facility] PAIN, MEM HOSP GENERALIZED INC 7831 ABNORMAL 08-24-2010 [facility] WEIGHT GAIN PHYSICIANS [place] 5110 PLEURISY 07-18-2010 [facility] WITHOUT EMERGENCY MENTION SERVICES EFFUS/[place] [address] PAINFUL 07-18-2010 [place] RESPIRATION MEDICAL IMAGING ASS 2721 PURE 07-08-2010 [facility] HYPERGLYCER PHYSICIANS IDEMIA [place] 7944 NONSPECIFIC 07-07-2010 [facility] ABNORM ASSOCIATES RESULTS KIDNEY FUNCTION STUDY 65037 ASTHMA, 06-16-2010 [facility] UNSPECIFIED EMERGENCY , SERVICES UNSPECIFIED STATUS 54541 DIAB 05-21-2010 PETERSYANELY CA W/OPHTH MANIFESTS TYPE II/UNS NOT UNCNTRL 8250 CLOSED 04-28-2010 [facility] FRACTURE OF [facility] HOSP CALCANEUS INC V5416 AFTERCARE 04-28-2010 [place] HEALING MEDICAL TRAUMATIC IMAGING ASS FRACTURE LOWER LEG 8248 UNSPECIFIED 03-31-2010 [place] CLOSED MEDICAL FRACTURE OF IMAGING ASS ANKLE 73755 OTHER ANKLE 03-31-2010 [facility] [employer] STR[facility] S INC 9596 INJURY 02-17-2010 [place] OTHER AND MEDICAL UNSPECIFIED IMAGING ASS HIP AND THIGH 9597 INJURY 02-17-2010 [place] OTHER&UNSPE MEDICAL CIFIED KNEE IMAGING ASS LEG ANKLE&FOOT 920 CONTUSION 02-16-2010 [facility] OF FACE EMERGENCY SCALP AND SERVICES NECK EXCEPT EYE 71657 CONTUSION 02-16-2010 [facility] OF HIP MEM HOS[facility] INC E8859 FALL FROM 02-16-2010 [facility] OTHER EMERGENCY SLIPPING SERVICES TRIPPING OR STUMBLING 80868 INSOMNIA 02-04-2010 [facility] UNSPECIFIED ASSOCIATES V0382 NEED PROPH 02-04-2010 [facility] VACCINATION ASSOCIATES AGAINST STREP PNEUMONE 85197 URINARY 11-04-2009 [facility] FREQUENCY ASSOCIATES 2811 OTHER 08-24-2009 [facility] VITAMIN B12 ASSOCIATES DEFICIENCY ANEMIA 514 PULMONARY 08-24-2009 [facility] CONGESTION ASSOCIATES AND HYPOSTASIS E8490 PLACE OF 07-10-2009 [place] OCCURRENCE, MEDICAL HOME IMAGING ASSOCIATES 94913 GEN 04-15-2009 [facility] INVOLVING MULTIPLE SITES 7919 OTHER 03-31-2009 [facility] NONSPECIFIC [facility] FINDING INC EXAMINATION OF URINE 56910 NEPHRITIS&N 03-24-2009 [facility] ADULT EPHROPATHY PRIMARY W/OTH CARE CENTER PATHOLOG KIDNEY LES 52037 NOCTURIA 03-11-2009 [facility] 18225 HYPERSOMNIA 02-26-2009 [facility] ASSOCIATES UNSPECIFIED 16166 DIAB 11-28-2008 LORRAINE W/ALEX Meza MANIFESTS TYPE II/UNS TYPE UNCNTRL 4619 ACUTE 06-17-2008 [facility] SINUSITIS, ASSOCIATES UNSPECIFIED 8082 CLOSED 03-18-2008 PROFESSION[facility] FRACTURE OF L REHAB PUBIS ASSOC PSC 7089 UNSPECIFIED 11-17-2007 [facility] URTICARIA ASSOCIATES 6868 OTH SPEC 11-12-2007 [facility] SKIN&SUBCUT PROF SERV TISSUE V642 SURG/OTH 11-11-2007 [facility] PROC NOT MEM H[facility]P CARRIED OUT INC BECAUSE PTS DECN 401.9 Essential [place] hypertensio [facility] [id number] Diastolic [place] heart [facility] [id number] Diabetes [place] mellitus [facility] type 2 [facility] [id number] Mitral [place] valve [facility] on 786.09 Dysp[address] [facility] Allergies, Adverse Reactions, Alerts Type Drug Allergy [...] RO 40 -3 SE 96 1- Lo OK 10 20 ng DE 20 13 er [...] 02:54 Cnc NT-proBNP SerPl-mCnc (10-03-2016 02:30) NT-proB 68844 0-1799 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 017 pg/mL ed SerPl-m 02:30 Cnc Magnesium SerPl-mCnc (10-03-2016 02:30) Magnesi 2.2 1.9-2.4 complet um 017 mg/dL ed SerPl-m 02:30 Cnc MDRO Wnd (09-30-2016 22:55) Bacteri [id number] complet a XXX 017 01 ed Anaerob 22:55 Methici e+Aerob llin e Cult resista nt Staphyl ococcus aureus (organi sm) SCT MRSA1 (MRSA) L Bacteri [id number] complet a XXX 017 ed Anaerob 22:55 Staphyl e+Aerob ococcus e Cult aureus (organi sm) SCT SAUR STAPHYL OCOCCUS AUREUS L CC XXX NOTAP complet VC-aCnc 017 NOT ed 22:55 APPLICA BLE L Bacteria XXX Anaerobe+Aerobe Cult (09-30-2016 12:10) Bacteri [id number] complet a XXX 017 06 No ed Anaerob 12:10 growth e+Aerob (qualif e Cult ier value) SCT NGB6 NO GROWTH DAY 5. 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 017 pg/mL ed SerPl-m 12:10 Cnc TSH [...] Bld 07:55 Auto Basophi 07-31-2 0.0 0-0.2 [facility] # 013 K/MM3 ed Bld 07:55 Auto Procedures Procedure DOS Code Location Performer Comment SBSQ 30261 [facility] 7 PHYSICIAN CARE/DAY S GROUP 25 MINUTES INITIAL 22478 [facility] 7 PHYSICIAN CARE/DAY S GROUP 70 MINUTES ECG 46582 [facility] BARRETO JR ROUTINE 7 [facility] W/LEAST P 12 LDS I&R ONLY GROUND A0425 [facility] MILEAGE 7 AMBULANCE AMBULANCE PER SERVICE SERVICE STATUTE MILE AMBULANCE A0429 [facility] 7 AMBULANCE AMBULANCE BLS SERVICE SERVICE EMERGENCY TRANSPORT DILAT [id number] [facility] CORONARY 7 [facility] HOSP ART 2 ART INC INC 2 RX-ELUT [place] DEVC PERQ FLUORO [id number] [facility] MULTI [address] [facility] CORONARY INC INC ARTERIES LOW OSMOLAR CONT FLUOROSCO [id number] [facility] PY LEFT 7 [facility] HEART LOW INC INC OSMOLAR CONTRAST FLUORO [id number] [facility] BILATERAL 7 [facility] RENAL INC INC ART LOW OSMOLAR CONTRST MEASUREME [id number] [facility] NT [address] [facility] CARDIAC INC INC SAMPLING PRESS LT HEART PERQ LIPID 64336 [facility] PANEL [address] [facility] INC INC COMPREHEN [id number] Z[facility] SIVE 6 [facility] METABOLIC INC INC PANEL COLLECTIO 66149 [facility] D[facility] N VENOUS 6 [facility] [place] [address] [facility] D[facility] THYROID 6 [facility] STIMULATI INC INC NG HORMONE TSH HEMOGLOBI 98259 ZACK [facility] N 6 [facility] GLYCOSYLA INC INC ALEX A1C 25 [id number] COMBINED COMBINED HYDROXY 6 PHYSICIAN PHYSICIAN INCLUDES S LA S LA FRACTIONS IF PERFORMED BLOOD 19421 COMBINED COMBINED COUNT 6 PHYSICIAN PHYSICIAN COMPLETE S LA S LA AUTO&AUTO DIFRNTL WBC URNLS DIP 30883 COMBINED COMBINED 6 PHYSICIAN PHYSICIAN STICK/TAB S LA S LA LET REAGENT AUTO MICROSCOP Y VOLUME 68919 COMBINED COMBINED MEASUREME 6 PHYSICIAN PHYSICIAN NT TIMED S LA S LA COLLECTIO N EACH RENAL 44925 COMBINED COMBINED FUNCTION 6 PHYSICIAN PHYSICIAN PANEL S LA S LA CULTURE 85603 COMBINED COMBINED BCT 6 PHYSICIAN PHYSICIAN ISOL&PRSM S LA S LA PTV ID ISOLATE EA URINE CULTURE 28127 COMBINED COMBINED BACTERIAL 6 PHYSICIAN PHYSICIAN S LA S LA QUANTTATI VE COLONY COUNT URINE BLD GLU A4253 ARRIVA ARRIVA TEST/REAG 6 MEDICAL MEDICAL T STRIPS HOME BLD GLU MON-50 NORMAL A4256 ARRIVA ARRIVA LOW AND 6 MEDICAL MEDICAL HIGH CALIBRATO R SOLUTION/ CHIPS LANCETS A4259 ARRIVA ARRIVA PER BOX 6 [facility] OF [facility] A4258 ARRIVA ARRIVA WERED 6 MEDICAL MANAGER MUSIC FOR LANCET EACH BASIC 57660 [facility] METABOLIC 6 [facility] PANEL INC INC [facility] [id number] [facility] D[facility] OBSERVATI 6 [facility] ON INC INC SERVICE PER HOUR GLUC BLD 66631 [facility] GLUC MNTR 6 [facility] DEV INC INC CLEARED FDA SPEC HOME USE COLLECTIO 51244 Z[facility] D[facility] N VENOUS 6 [facility] BLOOD INC INC VENIPUNCT URE COLLECTIO 47632 [facility] N VENOUS 6 [facility] BLOOD INC INC VENIPUNCT URE URNLS DIP 42743 Z[facility]ON 6 [facility] STICK/TAB INC INC LET REAGENT AUTO MICROSCOP Y GROUND A0425 [facility] AM[facility] PER SERVICE SERVICE STATUTE MILE PRESSURIZ 51781 ZACK DIXON ED/NONPRE 6 [facility] SSURIZED INC INC INHALATIO N TREATMENT CREATINE 06337 ZACK DIXON KINASE MB 6 [facility] FRACTION INC INC ONLY COMPREHEN 63892 ZACK DIXON SIVE 6 [facility] METABOLIC INC INC PANEL GLUC BLD 09436 ZACK DIXON GLUC MNTR 6 [facility] DEV INC INC CLEARED FDA SPEC HOME USE THER 66469 ZACK DIXON PROPH/DX 6 [facility] NJX IV INC INC PUSH SINGLE/1S T SBST/DRUG ECG 24255 ZACK MCLEAN ROUTINE 6 [facility] W/LEAST P 12 LDS [place] [address] ZACK DIXON TROPONIN 6 [facility] QUANTITAT INC INC [facility] G0378 ZACK DIXON OBSERVATI 6 [facility] ON INC INC SERVICE PER HOUR AMB A0427 [facility] SERVICE 6 AMBULANCE AMBULANCE ALS SERVICE SERVICE EMERGENCY TRANSPORT LEVEL 1 BLOOD 62048 ZACK DIXON COUNT 6 [facility] COMPLETE INC INC AUTO&AUTO DIFRNTL WBC ECG 51053 ZACK DIXON ROUTINE [address] [facility] ECG INC INC W/LEAST 12 LDS TRCG ONLY W/O I&R CREATINE 01306 ZACK DIXON KINASE 6 [facility] MEM [...] TYPE SIDE EQUIPME EQUIPME RAIL W/MATTRSS COLLECTIO 08714 ZACK DIXON N VENOUS 6 [facility] BLOOD INC INC VENIPUNCT URE LIPID 54326 ZACK DIXON PANEL 6 [facility] INC INC BASIC 09408 ZACK DIXON METABOLIC 6 [facility] PANEL INC INC CALCIUM TOTAL HEMOGLOBI 71452 ZACK DIXON N 6 [facility] GLYCOSYLA INC INC ALEX A1C STANDARD K0001 REID CHAUDHARII 6 HOME HOME R MEDICAL MEDICAL EQUIPME EQUIPME HOS BED E0260 REID MATHEWS SEMI-ELEC 6 HOME HOME W/ANY MEDICAL MEDICAL TYPE SIDE EQUIPME EQUIPME RAIL W/MATTRSS URNLS DIP 01315 ZACK DIXON 6 [facility] [...] HIGH CALIBRATO R SOLUTION/ CHIPS GLUC BLD 60530 ZACK DIXON GLUC MNTR 6 [facility] DEV INC INC CLEARED FDA SPEC [facility] G0378 ZACK DIXON OBSERVATI 6 [facility] ON INC INC SERVICE PER HOUR OBSERVATI 29569 [facility] 6 [facility] DISCHARGE INTERNAL MEDI MANAGEMEN T BLOOD 41476 ZACK DIXON COUNT 6 [facility] COMPLETE INC INC AUTO&AUTO DIFRNTL [facility] G0378 ZACK DIXON OBSERVATI 6 [facility] ON INC INC SERVICE PER HOUR BASIC 16722 ZACK DIXON METABOLIC 6 [facility] PANEL INC INC CALCIUM TOTAL GLUC BLD 86246 ZACK DIXON GLUC MNTR 6 [facility] DEV INC [place] [address] ZACK DIXON TROPONIN 6 [facility] QUANTITAT INC INC [place] COLLECTIO 68837 ZACK DIXON N VENOUS 6 [facility] BLOOD INC INC VENIPUNCT URE COLLECTIO 95736 ZACK DIXON N VENOUS 6 [facility] BLOOD INC INC VENIPUNCT URE URNLS DIP 78868 ZACK DIXON 6 [facility] STICK/TAB INC INC LET REAGENT AUTO MICROSCOP Y INJECTION J2405 AZCK DIXON [address] [facility] [facility] ONDANSETR INC INC ON HCL PER [address] [address] AM[place]ANCE [place] [address] ZACK DIXON INFUSION [address] [facility] THERAPY/P INC INC ROPHYLAXI S /DX 1ST TO 1 HR THERAPEUT 06399 ZACK DIXON IC 6 [facility] INJECTION INC INC IV PUSH EACH NEW DRUG INITIAL 59715 [facility] VINAY OBSERVATI [address] [place] [address] ON INTERNAL CARE/DAY MED 30 MINUTES COMPREHEN 92736 ZACK DIXON SIVE 6 [facility] METABOLIC INC INC PANEL CREATINE 35825 ZACK DIXON KINASE MB 6 [facility] [place] [address] ZACK DIXON TROPONIN 6 [facility] QUANTITAT INC INC MARIBEL ECG 01600 ZACK BARRETO JR ROUTINE 6 [facility] W/LEAST P 12 LDS I&R ONLY GLUC BLD 49167 ZACK DIXON GLUC MNTR 6 [facility] DEV INC INC CLEARED FDA SPEC [facility] G0378 ZACK DIXON OBSERVATI 6 [facility] ON INC INC SERVICE PER HOUR BLOOD 20027 ZACK DIXON COUNT 6 [facility] COMPLETE INC INC AUTO&AUTO DIFRNTL WBC AMB A0427 [facility] SERVICE 6 AMBULANCE AMBULANCE ALS SERVICE SERVICE [place] [address] [facility] R[facility] ALL HEAD/BRAI 6 MEDICAL N W/O IMAGING CONTRAST ASS MATERIAL RADIOLOGI 14359 [place] RODRIGUE[place] ALL C 6 MEDICAL EXAMINATI IMAGING ON [place] [address] ZACK DIXON LIPASE 6 [facility] INC INC CREATINE 71419 ZACK DIXON KINASE 6 [facility] TOTAL INC INC ECG 01851 ZACK DIXON ROUTINE 6 [facility] ECG INC INC W/LEAST 12 LDS TRCG ONLY W/O I&[place] [address] COMBINED COMBINED PHOSPHORU 6 PHYSICIAN PHYSIC[place] [address] COMBINED COMBINED BLOOD/URI 6 PHYSICIAN PHYSICIAN C ACID S LA S LA CYANOCOBA 68079 COMBINED COMBINED SOHA 6 PHYSICIAN PHYSICIAN VITAMIN S LA S LA B-12 [place] [address] COMBINED COMBINED MAGNESIUM 6 PHYSICIAN PHYSICIAN S LA S LA BLOOD 92075 COMBINED COMBINED COUNT 6 PHYSICIAN PHYSICIAN COMPLETE S LA S LA AUTO&AUTO DIFRNTL WBC BASIC 68418 COMBINED COMBINED METABOLIC 6 PHYSICIAN PHYSICIAN PANEL S LA S LA CALCIUM TOTAL ALBUMIN 10185 COMBINED COMBINED SERUM 6 PHYSICIAN PHYSICIAN PLASMA/[place] [address] COMBINED COMBINED THYROID 6 PHYSICIAN PHYSICIAN STIMULATI S LA S LA NG HORMONE TSH STANDARD K0001 REID MATHEWS WHEELCHAI 6 HOME HOME R MEDICAL MEDICAL EQUIPME EQUIPME HOS BED E0260 REID MATHEWS SEMI-ELEC 6 HOME HOME W/ANY MEDICAL MEDICAL TYPE SIDE EQUIPME EQUIPME RAIL W/MATTRSS PHYS G0179 [facility] KESHAWNSON RE-CERT 6 [facility] TRACY MCR-COVR INTERNAL [facility] SRVC RE-CERT PRD BLOOD 96483 ZACK DIXON COUNT 6 [facility] COMPLETE INC INC AUTO&AUTO DIFRNTL WBC GLUC BLD 82250 ZACK DIXON GLUC MNTR 6 [facility] DEV INC INC CLEARED FDA SPEC HOME USE URNLS DIP 29527 ZACK DIXON 6 [facility] STICK/TAB INC INC LET REAGENT AUTO MICROSCOP Y COMPREHEN 73810 ZACK DIXON SIVE 6 [facility] METABOLIC INC INC PANEL GROUND A0425 [facility] MILEAGE 6 AMBULANCE AMBULANCE PER SERVICE SERVICE STATUTE MILE AMBULANCE A0429 [facility] SERVICE 6 AMBULANCE AMBULANCE BLS SERVICE SERVICE EMERGENCY TRANSPORT SBSQ 60133 [facility] 6 [facility] FACIL INTERNAL CARE/DAY MED NEW PROBLEM 25 MIN SBSQ 01958 [facility] INTER[facility] CARE/DAY MEDI MINOR COMPLJ 15 MIN STANDARD K0001 REID CHAUDHARII 6 HOME HOME R MEDICAL MEDICAL EQUIPME EQUIPME HOS BED E0260 REID GLASSRELL SEMI-ELEC 6 HOME HOME W/ANY MEDICAL MEDICAL TYPE SIDE EQUIPME EQUIPME RAIL W/MATTRSS RADEX 66172 SYMPHONY SYMPHONY SPINE 6 MOBILEX MOBILEX CERVICAL 2 OR 3 VIEWS RADEX 95811 SYMPHONY SYMPHONY SPINE 6 MOBILEX MOBILEX THORACIC 2 VIEWS SBSQ 36318 [facility] 6 [facility] INTERNAL CARE/DAY MED NEW PROBLEM 25 MIN STANDARD K0001 REID CHAUDHARII 5 HOME HOME R MEDICAL MEDICAL EQUIPME EQUIPME HOS BED E0260 REID REID SEMI-ELEC 5 HOME HOME W/ANY MEDICAL MEDICAL TYPE SIDE EQUIPME EQUIPME RAIL W/MATTRSS SUSCEPTIB 32807 ZACK ZACK LTY STDY 5 [facility] ANTIMICRB INC INC IAL MICRO/AGA R DILUTJ CULTURE 91918 ZACK DIXON BACTERIAL 5 [facility] INC INC QUANTTATI VE COLONY COUNT URINE URNLS DIP 68548 ZACK DIXON 5 [facility] STICK/TAB INC INC LET REAGENT AUTO MICROSCOP Y COMPREHEN 35827 ZACK DIXON SIVE 5 [facility] METABOLIC INC INC PANEL GROUND A0425 [facility] MILEAGE 5 AMBULANCE AMBULANCE PER SERVICE SERVICE STATUTE MILE PRESSURIZ 33613 ZACK DIXON ED/NONPRE [address] [facility] SSURIZED INC INC INHALATIO N TREATMENT AMB A0427 [facility] SERVICE 5 AMBULANCE AMBULANCE ALS SERVICE SERVICE EMERGENCY TRANSPORT LEVEL 1 BLOOD 28951 ZACK ZACK COUNT 5 [facility] COMPLETE INC INC AUTO&AUTO DIFRNTL WBC NATRIURET 24779 ZACK DIXON IC [address] [facility] PEPTIDE INC INC RADIOLOGI 79446 ZACK DIXON C EXAM 5 [facility]P CHEST 2 INC INC VIEWS FRONTAL&L ATERAL STANDARD K0001 REID CHAUDHARII 5 HOME HOME R MEDICAL MEDICAL EQUIPME EQUIPME HOS BED E0260 REID MATHEWS SEMI-ELEC 5 HOME HOME W/ANY MEDICAL MEDICAL TYPE SIDE EQUIPME EQUIPME RAIL W/MATTRSS SBSQ 91288 [facility] 5 CULAR MAT CARE/DAY CONSULTAN 25 TS O MINUTES INITIAL 04627 [facility] 5 CULAR MAT CARE/DAY CONSULTAN 70 TS O MINUTES ECHO 04712 [facility] 5 MEDICAL JUAN J C R-T 2D SERV W/WO FOUNDATIO M-MODE N REC F-UP/LMTD RADIOLOGI 95509 [place] SH[facility]I C EXAM 5 MEDICAL MELIDA CHEST 2 IMAGING VIEWS ASS FRONTAL&L ATERAL STANDARD K0001 REID CHAUDHARII 5 HOME HOME R MEDICAL MEDICAL EQUIPME EQUIPME HOS BED E0260 REID GLASSRELL SEMI-ELEC 5 HOME HOME W/ANY MEDICAL MEDICAL TYPE SIDE EQUIPME EQUIPME RAIL W/MATTRSS THERAPEUT 30426 ZACK DIXON IC PX 1/> [address] [facility] AREAS INC INC EACH 15 MIN EXERCISES BLD GLU A4253 ARRIVA ARRIVA TEST/REAG 5 MEDICAL MEDICAL T STRIPS HOME BLD GLU MON-50 NORMAL A4256 ARRIVA ARRIVA LOW AND 5 MEDICAL MEDICAL HIGH CALIBRATO R SOLUTION/ CHIPS LANCETS A4259 ARRIVA ARRIVA PER BOX 5 MEDICAL MEDICAL OF 100 URNLS DIP 00749 ZACK CALDERON 5 [facility] STICK[facility]TAB HOSP[facility] LET RGNT P NON-AUTO W/O MICRSCP THERAPEUT 91048 ZACK DIXON IC PX 1/> 5 [facility] AREAS INC INC EACH 15 MIN EXERCISES STANDARD K0001 REID MATHEWS WHEELCHAI 5 HOME HOME R MEDICAL MEDICAL EQUIPME EQUIPME HOS BED E0260 REID MATHEWS SEMI-ELEC 5 HOME HOME W/ANY MEDICAL MEDICAL TYPE SIDE EQUIPME EQUIPME RAIL W/MATTRSS THERAPEUT 94776 ZACK DIXON IC PX 1/> 5 [facility] AREAS INC INC EACH 15 MIN EXERCISES THERAPEUT 42642 ZACK DIXON IC PX 1/> 5 [facility] AREAS INC INC EACH 15 MIN EXERCISES BLOOD 59599 ZACK DIXON COUNT 5 [facility] COMPLETE INC INC AUTO&AUTO DIFRNTL WBC HEMOGLOBI 50042 ZACK DIXON N 5 [facility] GLYCOSYLA [place] A1[place] [address] ZACK DIXON THYROID 5 [facility] STIMULATI INC INC NG HORMONE TSH URNLS DIP 59999 ZACK DIXON 5 [facility] STICK/TAB INC INC LET REAGENT AUTO MICROSCOP Y COLLECTIO 33358 ZACK DIXON N VENOUS 5 [facility] BLOOD INC INC VENIPUNCT URE RENAL 94050 ZACK DIXON FUNCTION 5 [facility] PANEL INC INC SUSCEPTIB 46678 ZACK DIXON LTY STDY 5 [facility] ANTIMICRB INC INC IAL MICRO/AGA R DILUTJ 25 81363 ZACK DIXON HYDROXY 5 [facility] INCLUDES INC INC FRACTIONS IF PERFORMED CULTURE 85296 ZACK DIXON BACTERIAL 5 [facility] INC INC QUANTTATI VE COLONY COUNT URINE CULTURE 87898 ZACK DIXON BCT 5 [facility] ISOL&PRSM INC INC PTV ID ISOLATE EA URINE THERAPEUT 55456 ZACK DIXON IC PX 1/> 5 [facility] AREAS INC INC EACH 15 MIN EXERCISES THERAPEUT 12211 ZACK DIXON IC PX 1/> 5 [facility] AREAS INC INC EACH 15 MIN EXERCISES THERAPEUT 82384 ZACK DIXON IC PX 1/> 5 [facility] AREAS INC INC EACH 15 MIN EXERCISES THERAPEUT 02484 ZACK DIXON IC PX 1/> 5 [facility] AREAS INC INC EACH 15 MIN EXERCISES CATH CLCT P9612 ZACK CALDERON SPECIMEN 5 [facility] PT ALL P PLACES SERVICE PHYSICAL 83717 ZACK DIXON THERAPY [address] [facility] EVALUATIO INC INC N URNLS DIP [address] [facility] LET RGNT P NON-AUTO W/O MICRSCP CULTURE 77564 ZACK DIXON BCT 5 [facility] ISOL&PRSM INC INC PTV ID ISOLATE EA URINE CULTURE 38207 ZACK DIXON BACTERIAL 5 [facility] INC INC QUANTTATI VE COLONY COUNT URINE SUSCEPTIB 71095 ZACK DIXON LTY STDY 5 [facility] HOS[facility] [...] HOME R MEDICAL MEDICAL EQUIPME EQUIPME ONELIA 08214 ZACK CALDERON POST-VOID 5 [facility] RESIDUAL P URINE&/BL ADDER CAP SUSCEPTIB 78561 ZACK DIXON LTY STDY 5 [facility] ANTIMICRB INC INC IAL MICRO/AGA R DILUTJ CULTURE 95575 ZACK DIXON BACTERIAL 5 [facility] INC INC QUANTTATI VE COLONY COUNT URINE CULTURE 73765 ZACK DIXON BCT 5 [facility] ISOL&PRSM INC INC PTV ID ISOLATE EA URINE RADIOLOGI 51686 SYMPHONY SYMPHONY C 5 MOBILEX MOBILEX EXAMINATI ON CHEST SINGLE VIEW FRONTAL RADIOLOGI 36115 SYMPHONY SYMPHONY C 5 MOBILEX MOBILEX EXAMINATI ON CHEST SINGLE VIEW FRONTAL DEBRIDEME 34874 [facility] NAIL 5 ARE ANDREZ ANY METHOD 6/> INITIAL 48241 [facility] [place] NURSING 5 ARE ANDREZ FACILITY CARE/DAY 25 MINUTES SBSQ 20104 [facility] 5 [facility] INTERNAL CARE/DAY MED NEW PROBLEM 25 MIN BASIC 40226 COMBINED COMBINED METABOLIC 5 PHYSICIAN PHYSICIAN PANEL S LA S LA CALCIUM TOTAL BLOOD 35066 COMBINED COMBINED COUNT 5 PHYSICIAN PHYSICIAN COMPLETE S LA S LA AUTO&[place] [address] [place] [facility] ABDOMINAL 5 MEDICAL KAY REAL IMAGING TIME ASS W/[place] [address] [place] [facility] ABDOMEN & 5 MEDICAL MELIDA PELVIS IMAGING W/O ASS CONTRAST MATERIAL ECG 22809 ZACK MCLEAN ROUTINE 5 [facility] W/LEAST P 12 LDS I&R ONLY CRITICAL 71620 [facility] CARE 5 [facility] P P PATIENT INIT 30-74 MIN RADIOLOGI 48755 [place] RODRIGUEZ ALL C 5 MEDICAL EXAMINATI IMAGING ON CHEST ASS SINGLE VIEW FRONTAL RADEX 57786 [facility] MASTOIDS 5 MEDICAL KAY COMPL IMAGING MINIMUM 3 ASS VIEWS GA SIDE RADEX 74334 [facility] SPINE 5 MEDICAL KAY CERVICAL IMAGING 4 OR 5 ASS VIEWS SPRING- A4258 ARRIVA ARRIVA WERED 5 MEDICAL MANAGER MUSIC FOR LANCET EACH NORMAL A4256 ARRIVA ARRIVA LOW AND 5 MEDICAL MEDICAL HIGH CALIBRATO R SOLUTION/ CHIPS LANCETS A4259 ARRIVA ARRIVA PER BOX 5 MEDICAL MEDICAL OF 100 BLD GLU A4253 ARRIVA ARRIVA TEST/REAG 5 MEDICAL MEDICAL T STRIPS HOME BLD GLU MON-50 COMPREHEN 22675 COMBINED COMBINED SIVE 5 PHYSICIAN PHYSICIAN METABOLIC S LA S LA PANEL RENAL 07965 ZACK DIXON FUNCTION 5 [facility] PANEL INC INC COLLECTIO 46654 ZACK DIXON N VENOUS 5 [facility] BLOOD INC INC VENIPUNCT URE INJECTION J0897 ZACK ZACK 5 [facility] DENOSUMAB INC INC 1 MG THERAPEUT 34124 ZACK DIXON IC 5 [facility] PROPHYLAC INC INC TIC/DX INJECTION SUBQ/IM PROTEIN 89601 ZACK DIXON XCPT 4 [facility] REFRACTOM INC INC ETRY SERUM PLASMA/WH L BLD BLOOD 43100 ZACK DIXON COUNT 4 [facility] COMPLETE INC INC AUTO&AUTO DIFRNTL WBC URNLS DIP 76619 ZACK DIXON 4 [facility] STICK/TAB INC INC LET REAGENT AUTO MICROSCOP Y COLLECTIO 94146 ZACK DIXON N VENOUS 4 [facility] BLOOD INC INC VENIPUNCT URE CREATININ 55952 ZACK DIXON E OTHER 4 [facility] SOURCE INC INC RENAL 92142 ZACK DIXON FUNCTION 4 [facility] PANEL INC INC DXA BONE 53681 [place] [facility] DENSITY 4 MEDICAL MELIDA STUDY 1/> [place] [address] ZACK DIXON PARATHORM 4 [facility] ONE INC INC SUSCEPTIB 62428 ZACK DIXON LTY STDY 4 [facility] ANTIMICRB INC INC IAL MICRO/AGA R DILUTJ 25 86273 ZACK DIXON HYDROXY 4 [facility] INCLUDES INC INC FRACTIONS IF PERFORMED CULTURE 87568 ZACK DIXON BACTERIAL 4 [facility] INC INC QUANTTATI VE COLONY COUNT URINE CULTURE 96448 ZACK DIXON BCT 4 [facility] ISOL&PRSM INC INC PTV ID ISOLATE EA URINE COMPREHEN 89318 COMBINED COMBINED SIVE 4 PHYSICIAN PHYSICIAN METABOLIC S LA S LA PANEL CREATINE 65882 ZACK DIXON KINASE MB 4 [facility] FRACTION INC INC ONLY COMPREHEN 17166 ZACK DIXON SIVE 4 [facility] METABOLIC INC INC PANEL PRESSURIZ 68094 ZACK DIXON ED/NONPRE 4 [facility] SSURIZED INC INC INHALATIO N TREATMENT URNLS DIP 04554 ZACK ZACK 4 [facility] STICK/TAB INC INC LET REAGENT AUTO MICROSCOP Y BLOOD 21940 ZACK DIXON COUNT 4 [facility] COMPLETE INC INC AUTO&[place] [address] ZACK DIXON TROPONIN 4 [facility] QUANTITAT INC INC MARIBEL RADIOLOGI 73644 ZACK DIXON C EXAM 4 [facility] CHEST 2 INC INC VIEWS FRONTAL&L ATERAL CREATINE 76122 ZACK DIXON KINASE 4 [facility] TOTAL INC INC 25 19728 ZACK DIXON HYDROXY 4 [facility] INCLUDES INC INC FRACTIONS IF PERFORMED BLOOD 53132 ZACK DIXON COUNT 4 [facility] COMPLETE INC INC AUTO&AUTO DIFRNTL WBC COLLECTIO 71091 ZACK DIXON N VENOUS 4 [facility] BLOOD INC INC VENIPUNCT URE RENAL 13523 ZACK DIXON FUNCTION 4 [facility] PANEL INC INC INJECTION J0897 ZACK DIXON 4 [facility] DENOSUMAB INC INC 1 MG THERAPEUT 95187 ZACK DIXON IC 4 [facility] PROPHYLAC INC INC TIC/DX INJECTION SUBQ/IM BASIC 44096 COMBINED COMBINED METABOLIC 4 PHYSICIAN PHYSICIAN PANEL S LA S LA CALCIUM TOTAL COMPREHEN 38880 COMBINED COMBINED SIVE 4 PHYSICIAN PHYSICIAN METABOLIC S LA S LA PANEL COLLECTIO 63894 ZACK DIXNO N VENOUS 4 [facility] BLOOD INC INC VENIPUNCT URE BASIC 73216 ZACK DIXON METABOLIC 4 [facility] PANEL INC INC CALCIUM TOTAL INJECTION J0897 ZACK DIXON 4 [facility] DENOSUMAB INC INC 1 MG THERAPEUT 92819 ZACK DIXON IC 4 [facility] PROPHYLAC INC INC TIC/DX INJECTION SUBQ/IM ARTHROCEN 60543 [facility] PETTEY TESIS 3 PHYSICIAN JAM ASPIR&/IN S GROUP J MAJOR JT/BURSA W/O US INJECTION 77483 [facility] 1 TENDON 3 PHYSICIAN PHYSICIAN S GROUP S GROUP SHEATH/LI GAMENT APONEUROS IS INJ J0702 [facility] PETTEY BETAMETHA 3 PHYSICIAN TONI SONE S GROUP ACETATE & PHOSPHATE 3 MG 25 14689 ZACK DIXON HYDROXY 3 [facility] INCLUDES [place] [address] ZACK DIXON PARATHORM 3 [facility] ONE INC INC DXA BONE 39468 [place] [facility] DENSITY 3 MEDICAL MELIDA STUDY 1/> IMAGING SITES ASS AXIAL SKEL RENAL 86711 ZACK DIXON FUNCTION 3 [facility] PANEL INC INC URNLS DIP 31873 ZACK DIXON 3 [facility] STICK/TAB INC INC LET REAGENT AUTO MICROSCOP Y COLLECTIO 95846 ZACK DIXON N VENOUS 3 [facility] BLOOD INC INC VENIPUNCT URE BASIC 94482 COMBINED COMBINED METABOLIC 3 PHYSICIAN PHYSICIAN PANEL S LA S LA CALCIUM TOTAL ALBUMIN 64997 ZACK DIXON URINE 3 [facility] MICROALBU INC INC MIN QUANTIATI VE BLOOD 54577 ZACK DIXON COUNT 3 [facility] COMPLETE INC INC AUTO&[place] [address] ZACK DIXON STREPTOCO 3 [facility] CCUS INC INC GROUP A RADIOLOGI 41142 [place] [facility] C EXAM 3 MEDICAL MELIDA CHEST 2 IMAGING VIEWS ASS FRONTAL&L ATERAL CUL BACT 99938 ZACK DIXON XCPT 3 [facility] URINE INC INC BLOOD/STO OL AEROBIC ISOL IAADI 12820 ZACK DIXON INFLUENZA 3 [facility] B VIRUS INC INC IAADI 34570 ZACK DIXON INFFLUENZ 3 [facility] [place] [address] COMBINED COMBINED BLOOD/URI 3 PHYSICIAN PHYSICIAN C ACID S LA S LA BASIC 74108 COMBINED COMBINED METABOLIC 3 PHYSICIAN PHYSICIAN PANEL S LA S LA CALCIUM TOTAL CREATINE 41026 ZACK DIXON KINASE 3 [facility] TOTAL INC INC TECHNETIU A9540 ZACK Flanagan TC-99M 3 [facility] MAA DX INC INC STDY DOSE UP TO 10 MCI RADIOLOGI 39235 ZACK DIXON C [address] [facility] EXAMINATI INC INC ON CHEST SINGLE VIEW FRONTAL FIBRIN 67268 ZACK DIXON DGRADJ [address] [facility] PRODUCTS INC INC D-DIMER QUAL/SEMI BARB ECG 88316 ZACK DIXON ROUTINE [address] [facility] ECG INC INC W/LEAST 12 LDS TRCG ONLY W/O I&R RADIOLOGI 96147 ZACK Lopez EXAM [address] [facility] CHEST 2 INC INC VIEWS FRONTAL&L ATERAL THER 46909 ZACK DIXON PROPH/DX [address] [facility] NJX IV INC INC PUSH SINGLE/1S T SBST/[place] [address] ZACK DIXON TROPONIN [address] [facility] QUANTITAT INC INC MARIBEL ECG 42892 ZACK BARRETO JR ROUTINE 3 [facility] W/LEAST P 12 LDS I&R ONLY RHYTHM 99165 ZACK DIXON ECG 1-[address] [facility] LEADS INC INC TRACING ONLY W/O I&R BLOOD 28835 ZACK DIXON COUNT [address] [facility] COMPLETE INC INC AUTO&AUTO DIFRNTL WBC TECHNETIU A9567 ZACK Flanagan TC-99M [address] [facility] PENTETATE INC INC DX AEROSOL TO 75 MCI CREATINE 20402 ZACK DIXON KINASE MB [address] [facility] FRACTION INC INC ONLY COMPREHEN 25117 ZACK [facility]IXON SIVE [address] [facility] METABOLIC INC INC PANEL PULMONARY 88881 ZACK DIXON [address] [facility] VENTILATI INC INC ON & PERFUSION IMAGING RENAL 53095 ZACK DIXON FUNCTION [address] [facility] PANEL INC INC COLLECTIO 48825 [facility]ACK DIXON N VENOUS 3 [facility] BLOOD INC INC VENIPUNCT URE BLOOD 48007 [facility]ACK DIXON COUNT 3 [facility] COMPLETE INC INC AUTO&AUTO DIFRNTL WBC THERAPEUT 75480 [facility] IC 3 [facility] PROPHYLAC INC INC TIC/DX INJECTION SUBQ/IM INJECTION J0897 [facility] DENOSUMAB INC INC 1 MG APPLICATI 54861 [facility] ON [facility] MODALITY INC INC 1/> AREAS HOT/COLD PACKS APPL 66091 ZACK DIXON MODALITY 3 [facility] 1/> AREAS INC INC 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 19912 ZACK DIXON IC PX 1/> 3 [facility] AREAS INC INC EACH 15 MIN EXERCISES E-STIM G0283 ZACK DIXON 1/> [facility] OTH THAN INC INC WND CARE PART TX PLAN E-STIM G0283 ZACK DIXON 1/> [facility] OTH THAN INC INC WND CARE PART TX PLAN THERAPEUT 57238 ZACK DIXON IC PX 1/> 3 [facility] AREAS INC INC EACH 15 MIN EXERCISES APPL 25661 ZACK DIXON MODALITY 3 [facility] 1/> AREAS INC INC 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 APPLICATI 24345 ZACK DIXON ON [facility] MODALITY INC INC 1/> AREAS HOT/COLD PACKS APPLICATI 82714 ZACK DIXON ON 3 [facility] MODALITY INC INC 1/> AREAS HOT/COLD PACKS APPL 59624 ZACK DIXON MODALITY 3 [facility] 1/> AREAS INC INC 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 94560 ZACK DIXON IC PX 1/> 3 [facility] AREAS INC INC EACH 15 MIN EXERCISES E-STIM G0283 ZACK DIXON 1/> AREAS [facility] OTH THAN INC INC WND CARE PART TX PLAN E-STIM G0283 ZACK DIXON 1/> AREAS [facility] OTH THAN INC INC WND CARE PART TX PLAN THERAPEUT 20088 ZACK DIXON IC PX 1/> 3 [facility] AREAS INC INC EACH 15 MIN EXERCISES APPL 41437 ZACK DIXON MODALITY 3 [facility] 1/> AREAS INC INC 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 APPLICATI 23305 ZACK ZACK ON 3 [facility] MODALITY INC INC 1/> AREAS HOT/COLD PACKS THERAPEUT 71322 ZACK DIXON IC PX 1/> 3 [facility] AREAS INC INC EACH 15 MIN EXERCISES E-STIM G0283 ZACK ZACK 1/> AREAS [facility] OTH THAN INC INC WND CARE PART TX PLAN E-STIM G0283 ZACK ZACK 1/> AREAS [facility] OTH THAN INC INC WND CARE PART TX PLAN CULTURE 98298 COMBINED COMBINED BACTERIAL 3 PHYSICIAN PHYSICIAN S LA S LA QUANTTATI VE COLONY COUNT URINE THERAPEUT 95595 ZACK ZACK IC PX 1/> 3 [facility] AREAS INC INC EACH 15 MIN EXERCISES APPL 11442 ZACK DIXON MODALITY 3 [facility] 1/> AREAS INC INC 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 APPLICATI 63469 ZACK DIXON ON 3 [facility] MODALITY INC INC 1/> AREAS HOT/COLD PACKS APPLICATI 29421 ZACK DIXON ON 3 [facility] MODALITY INC INC 1/> AREAS HOT/COLD PACKS APPL 22349 ZACK ZACK MODALITY 3 [facility] 1/> AREAS INC INC 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 62187 ZACK ZACK IC PX 1/> 3 [facility] AREAS INC INC EACH 15 MIN EXERCISES E-STIM G0283 ZACK ZACK 1/> AREAS 3 [facility] OTH THAN INC INC WND CARE PART TX PLAN THERAPEUT 79617 ZACK DIXON IC PX 1/> 3 [facility] AREAS INC INC EACH 15 MIN EXERCISES THERAPEUT 74552 ZACK DIXON IC PX 1/> 3 [facility] AREAS INC INC EACH 15 MIN EXERCISES APPL 47146 ZACK DIXON MODALITY 3 [facility] 1/> AREAS INC INC ULTRASOUN D EA 15 MIN APPL 49252 ZACK ZACK MODALITY 3 [facility] 1/> AREAS INC INC 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 G0283 ZACK ZACK 1/> [facility]AN INC INC WND CARE PART TX PLAN E-STIM G0283 ZACK ZACK 1/> [facility] INC INC WND CARE PART TX PLAN APPL 46418 ZACK DIXON MODALITY 3 [facility] 1/> AREAS INC INC 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 23100 ZACK DIXON IC PX 1/> 3 [facility] AREAS INC INC EACH 15 MIN EXERCISES APPLICATI 75815 ZACK DIXON ON 3 [facility] MODALITY INC INC 1/> AREAS HOT/COLD PACKS APPLICATI 13131 ZACK DIXON ON 3 [facility] MODALITY INC INC 1/> AREAS HOT/COLD PACKS THERAPEUT 65895 ZACK DIXON IC PX 1/> 3 [facility] AREAS INC INC EACH 15 MIN EXERCISES APPL 01592 ZACK DIXON MODALITY 3 [facility] 1/> AREAS INC INC 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 G0283 ZACK ZACK 1/> [facility]AS [facility] OTH THAN INC INC WND CARE PART TX PLAN E-STIM G0283 ZACK DIXON 1/> AREAS [facility] OTH THAN INC INC WND CARE PART TX PLAN APPL 74882 ZACK DIXON MODALITY 3 [facility] 1/> AREAS INC INC 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 APPL 55183 ZACK DIXON MODALITY 3 [facility]/> AREAS INC INC ULTRASOUN D EA 15 MIN THERAPEUT 17967 ZACK DIXON IC PX 1/> 3 [facility]AS INC INC EACH 15 MIN EXERCISES APPLICATI 04905 ZACK DIXON ON 3 [facility] MODALITY INC INC 1/> AREAS HOT/COLD PACKS THERAPEUT 41269 ZACK DIXON IC PX 1/> 3 [facility] AREAS INC INC EACH 15 MIN EXERCISES APPL 35658 ZACK DIXON MODALITY 3 [facility] 1/> AREAS INC INC ULTRASOUN D EA 15 MIN APPL 35092 ZACK DIXON MODALITY 3 [facility] 1/> AREAS INC INC 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 G0283 ZACK DIXON 1/> [facility] INC INC WND CARE PART TX PLAN SUSCEPTIB 88082 ZACK DIXON LTY STDY 3 [facility] ANTIMICRB INC INC IAL MICRO/AGA R DILUTJ E-STIM G0283 ZACK DIXON 1/> AREAS [facility] [place] [address] ZACK DIXON PARATHORM 3 [facility] INC CULTURE 64586 ZACK DIXON BACTERIAL 3 [facility] INC INC QUANTTATI VE COLONY COUNT URINE CULTURE 55856 ZACK DIXON BCT 3 [facility] ISOL&PRSM INC INC PTV ID ISOLATE EA URINE PROTEIN 93283 ZACK DIXON ELECTROPH 3 [facility] ORETIC INC INC FRACTJ&QU ANTJ SERUM APPL 28306 ZACK DIXON MODALITY 3 [facility] 1/> AREAS INC INC 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 APPL 79909 ZACK DIXON MODALITY 3 [facility] 1/> AREAS INC INC ULTRASOUN D EA 15 MIN THERAPEUT 85054 ZACK DIXON IC PX 1/> 3 [facility] AREAS INC INC EACH 15 MIN EXERCISES BLOOD 96333 ZACK DIXON COUNT 3 [facility] COMPLETE INC INC AUTO&AUTO DIFRNTL WBC 25 90092 ZACK DIXON HYDROXY 3 [facility] INCLUDES [place] [address] ZACK ELLIOTTON NEPHELOME 3 [facility] TRY EACH INC INC ANALYTE YANELY COLLECTIO 12979 ZACK ELLIOTTON N VENOUS 3 [facility] BLOOD INC INC VENIPUNCT URE URNLS DIP 76533 ZACK DIXON 3 [facility] STICK/TAB INC INC LET REAGENT AUTO MICROSCOP Y RENAL 69970 ZACK DIXON FUNCTION 3 [facility] PANEL INC INC APPLICATI 50748 ZACK DIXON ON 3 [facility] MODALITY INC INC 1/> AREAS HOT/COLD PACKS THERAPEUT 56689 ZACK DIXON IC PX 1/> 3 [facility] AREAS INC INC EACH 15 MIN EXERCISES APPL 32606 ZACK DIXON MODALITY 3 [facility] 1/> AREAS INC INC 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 G0283 ZACK DIXON 1/> AREAS 3 [facility] OTH THAN INC INC WND CARE PART TX PLAN E-STIM G0283 ZACK DIXON 1/> AREAS 3 [facility] OTH THAN INC INC WND CARE PART TX PLAN APPL 00567 ZACK DIXON MODALITY 3 [facility] 1/> AREAS INC INC ULTRASOUN D EA 15 MIN APPL 76811 ZACK DIXON MODALITY 3 [facility] 1/> AREAS INC INC 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 24483 ZACK DIXON IC PX 1/> 3 [facility] AREAS INC INC EACH 15 MIN EXERCISES APPLICATI 40070 ZACK DIXON ON 3 [facility] MODALITY INC INC 1/> AREAS HOT/COLD PACKS THERAPEUT 31481 ZACK DIXON IC PX 1/> 3 [facility] AREAS INC INC EACH 15 MIN EXERCISES APPL 58301 ZACK DIXON MODALITY 3 [facility] 1/> AREAS INC INC 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 APPL 25573 ZACK DIXON MODALITY 3 [facility] 1/> AREAS INC INC ULTRASOUN D EA 15 MIN E-STIM G0283 ZACK DIXON 1/> AREAS 3 [facility] OTH THAN INC INC WND CARE PART TX PLAN E-STIM G0283 ZACK DIXON 1/> AREAS 3 [facility] OTH THAN INC INC WND CARE PART TX PLAN APPL 89996 ZACK DIXON MODALITY 3 [facility] 1/> AREAS INC INC ULTRASOUN D EA 15 MIN APPL 44614 ZCAK DIXON MODALITY 3 [facility] 1/> AREAS INC INC 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 44171 ZACK DIXON IC PX 1/> 3 [facility] AREAS INC INC EACH 15 MIN EXERCISES APPLICATI 22486 ZACK DIXON ON 3 [facility] MODALITY INC INC 1/> AREAS HOT/COLD PACKS THERAPEUT 23254 ZACK DIXON IC PX 1/> 3 [facility] AREAS INC INC EACH 15 MIN EXERCISES BASIC 71330 COMBINED COMBINED METABOLIC 3 PHYSICIAN PHYSICIAN PANEL S LA S LA CALCIUM TOTAL APPL 70177 ZACK DIXON MODALITY 3 [facility] 1/> AREAS INC INC 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 APPL 40334 ZACK DIXON MODALITY 3 [facility] 1/> AREAS INC INC ULTRASOUN D EA 15 MIN APPL 77797 ZACK DIXON MODALITY 3 [facility] 1/> AREAS INC INC ULTRASOUN D EA 15 MIN APPL 57281 ZACK DIXON MODALITY 3 [facility] 1/> AREAS INC INC 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 65293 ZACK DIXON IC PX 1/> 3 [facility] AREAS INC INC EACH 15 MIN EXERCISES E-STIM G0283 ZACK DIXON 1/> AREAS 3 [facility] OTH THAN INC INC WND CARE PART TX PLAN E-STIM G0283 ZACK DIXON 1/> AREAS 3 [facility] OTH THAN INC INC WND CARE PART TX PLAN THERAPEUT 44495 ZACK DIXON IC PX 1/> 3 [facility] AREAS INC INC EACH 15 MIN EXERCISES APPL 30142 ZACK DIXON MODALITY 3 [facility] 1/> AREAS INC INC ULTRASOUN D EA 15 MIN APPL 93036 ZACK DIXON MODALITY 3 [facility] 1/> AREAS INC INC 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 APPL 80544 ZACK DIXON MODALITY 3 [facility] 1/> AREAS INC INC ULTRASOUN D EA 15 MIN THERAPEUT 84722 ZACK DIXON IC PX 1/> 3 [facility] AREAS INC INC EACH 15 MIN EXERCISES APPLICATI 19742 ZACK DIXON ON 3 [facility] MODALITY INC INC 1/> AREAS HOT/COLD PACKS E-STIM G0283 ZACK DIXON 1/> AREAS 3 [facility] OTH THAN INC INC WND CARE PART TX PLAN E-STIM G0283 ZACK DIXON 1/> AREAS 3 [facility] OTH THAN INC INC WND CARE PART TX PLAN THERAPEUT 03892 ZACK DIXON IC PX 1/> 3 [facility] AREAS INC INC EACH 15 MIN EXERCISES APPL 32061 ZACK DIXON MODALITY 3 [facility] 1/> AREAS INC INC ULTRASOUN D EA 15 MIN APPL 37508 ZACK DIXON MODALITY 3 [facility] 1/> AREAS INC INC 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 86192 ZACK DIXON IC PX 1/> 3 [facility] AREAS INC INC EACH 15 MIN EXERCISES E-STIM G0283 ZACK DIXON 1/> AREAS 3 [facility] OTH THAN INC INC WND CARE PART TX PLAN E-STIM G0283 ZACK DIXON 1/> AREAS 3 [facility] OTH THAN INC INC WND CARE PART TX PLAN THERAPEUT 87460 ZACK DIXNO IC PX 1/> 3 [facility] AREAS INC INC EACH 15 MIN EXERCISES APPLICATI 43898 ZACK DIXON ON 3 [facility] MODALITY INC INC 1/> AREAS HOT/COLD PACKS THERAPEUT 30925 ZACK DIXON IC PX 1/> 3 [facility] AREAS INC INC EACH 15 MIN EXERCISES APPL 47240 ZACK DIXON MODALITY 3 [facility] 1/> AREAS INC INC 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 APPL 53702 ZACK DIXON MODALITY 3 [facility] 1/> AREAS INC INC ULTRASOUN D EA 15 MIN E-STIM G0283 ZACK DIXON 1/> AREAS 3 [facility] OTH THAN INC INC WND CARE PART TX PLAN E-STIM G0283 ZACK DIXON 1/> AREAS 3 [facility] OTH THAN INC INC WND CARE PART TX PLAN APPL 85761 ZACK DIXON MODALITY 3 [facility] 1/> AREAS INC INC ULTRASOUN D EA 15 MIN APPL 07867 ZACK DIXON MODALITY 3 [facility] 1/> AREAS INC INC 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 00806 ZACK DIXON IC PX 1/> 3 [facility] AREAS INC INC EACH 15 MIN EXERCISES APPLICATI 77241 ZACK DIXON ON 3 [facility] MODALITY INC INC 1/> AREAS HOT/COLD PACKS APPLICATI 36691 ZACK DIXON ON 3 [facility] MODALITY INC INC 1/> AREAS HOT/COLD PACKS APPL 39303 ZACK DIXON MODALITY 3 [facility] 1/> AREAS INC INC 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 APPL 72162 ZACK DIXON MODALITY 3 [facility] 1/> AREAS INC INC ULTRASOUN D EA 15 MIN E-STIM G0283 ZACK DIXON 1/> AREAS 3 [facility] OTH THAN INC INC WND CARE PART TX PLAN E-STIM G0283 ZACK DIXON 1/> AREAS 3 [facility] OTH THAN INC INC WND CARE PART TX PLAN APPL 02004 ZACK DIXON MODALITY 3 [facility] 1/> AREAS INC INC ULTRASOUN D EA 15 MIN APPL 81242 ZACK DIXON MODALITY 3 [facility] 1/> AREAS INC INC 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 APPLICATI 58884 ZACK ELLIOTTON ON 3 [facility] MODALITY INC INC 1/> AREAS HOT/COLD PACKS THERAPEUT 86446 ZACK DIXON IC PX 1/> 3 [facility] AREAS INC INC EACH 15 MIN EXERCISES THERAPEUT 84143 ZACK DIXON IC PX 1/> 3 [facility] AREAS INC INC EACH 15 MIN EXERCISES APPLICATI 60434 ZACK DIXON ON 3 [facility] MODALITY INC INC 1/> AREAS HOT/COLD PACKS APPL 45685 ZACK ZACK MODALITY 3 [facility] 1/> AREAS INC INC 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 APPL 10849 ZACK DIXON MODALITY 3 [facility] 1/> AREAS INC INC ULTRASOUN D EA 15 MIN E-STIM G0283 ZACK DIXON 1/> AREAS 3 [facility] OTH THAN INC INC WND CARE PART TX PLAN APPL 81734 ZACK DIXON MODALITY 3 [facility] 1/> AREAS INC INC ULTRASOUN D EA 15 MIN PHYSICAL 35431 ZACK DIXON THERAPY 3 [facility] EVALUATIO INC INC N THERAPEUT 78576 ZACK DIXON IC PX 1/> 3 [facility] AREAS INC INC EACH 15 MIN EXERCISES APPL 05654 ZACK DIXON MODALITY 3 [facility] 1/> AREAS INC INC 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 APPLICATI 02612 ZACK DIXON ON 3 [facility] MODALITY INC INC 1/> AREAS HOT/COLD PACKS RADEX HIP 15303 [place] SHERI 3 MEDICAL MELIDA UNILATERA IMAGING L ASS COMPLETE MINIMUM 2 [place] [address] COMBINED COMBINED BLOOD/URI 3 PHYSICIAN PHYSICIAN C ACID S LA S LA BASIC 20896 COMBINED COMBINED METABOLIC 3 PHYSICIAN PHYSICIAN PANEL S LA S LA CALCIUM TOTAL BASIC 81304 ZACK DIXON METABOLIC 2 [facility] PANEL INC [facility] G0378 ZACK DIXON OBSERVATI 2 [facility] ON INC INC SERVICE PER HOUR GLUC BLD 62408 ZACK DIXON GLUC MNTR 2 [facility] DEV INC INC CLEARED FDA SPEC HOME USE COLLECTIO 82349 ZACK DIXON N VENOUS [address] [facility] BLOOD INC INC VENIPUNCT URE BLOOD 33226 ZACK DIXON COUNT 2 [facility] COMPLETE INC INC AUTO&AUTO DIFRNTL WBC BLOOD 16035 ZACK DIXON COUNT 2 [facility] COMPLETE INC INC AUTO&AUTO DIFRNTL WBC CREATINE 51555 ZACK DIXON KINASE 2 [facility] TOTAL INC INC TECHNETIU A9540 ZACK DIXON M TC-99M [address] [facility] [facility] MAA DX INC INC STDY DOSE UP TO 10 MCI COLLECTIO 29157 ZACK DIXON N VENOUS [facility] BLOOD INC INC VENIPUNCT URE TECHNETIU A9567 ZACK DIXON M TC-99M [address] [facility] PENTETATE INC INC DX AEROSOL TO 75 MCI CREATINE 59701 ZACK DIXON KINASE MB [address] [facility] FRACTION INC INC ONLY NONINVASI 59488 ZACK DIXON VE [address] [facility] EAR/PULSE INC INC OXIMETRY SINGLE DETER PULMONARY 15258 [facility] 2 MEDICAL MELIDA VENTILATI IMAGING ON & ASS PERFUSION IMAGING GLUC BLD 60950 ZACK DIXON GLUC MNTR 2 [facility] DEV INC INC CLEARED FDA SPEC HOME USE ECHO 31568 [facility] T[facility] R-T 2 DINA MORA 2D CARDIOLOG W/WOM-MOD Y CLINIC E COMPL SPEC&[place] [address] ZACK DIXON TROPONIN [address] [facility] QUANTITAT INC INC [facility] G0378 ZACK DIXON OBSERVATI 2 [facility] ON INC INC SERVICE PER HOUR BASIC 12532 ZACK DIXON METABOLIC [address] [facility] PANEL INC INC [facility] G0378 ZACK DIXON OBSERVATI 2 [facility] ON INC INC SERVICE PER HOUR BLOOD 62560 ZACKSHANDA DIXON COUNT [address] [facility] COMPLETE INC INC AUTO&[place] [address] ZACK DIXON TROPONIN 2 [facility] QUANTITAT INC INC MARIBEL ECG 96653 ZACK VINAY ROUTINE 2 [facility] W/LEAST P 12 LDS I&R ONLY GLUC BLD 67006 ZACK DIXON GLUC MNTR [address] [facility] DEV INC INC CLEARED FDA SPEC HOME USE NATRIURET 91474 ZACK ZACK IC 2 [facility] PEPTIDE INC INC RADIOLOGI 16712 ZACK DIXON C EXAM 2 [facility] CHEST 2 INC INC VIEWS FRONTAL&L ATERAL THERAPEUT 05933 ZACK DIXON IC 2 [facility] PROPHYLAC INC INC TIC/DX INJECTION SUBQ/IM CREATINE 10139 ZACK DIXON KINASE MB [address] [facility] FRACTION INC INC ONLY URNLS DIP 02284 ZACK ZACK 2 [facility] STICK/TAB INC INC LET REAGENT AUTO MICROSCOP Y BASIC 36380 ZACK DIXON METABOLIC [address] [facility] PANEL INC INC CALCIUM TOTAL CREATINE 20624 ZACK DIXON KINASE 2 [facility] TOTAL INC INC CULTURE 88195 ZACK DIXON BACTERIAL 2 [facility] BLOOD INC INC AEROBIC W/ID ISOLATES FIBRIN 48215 ZACK ZACK DGRADJ [address] [facility] PRODUCTS INC INC D-DIMER QUAL/SEMI BARB ECG 11663 ZACK DIXON ROUTINE 2 [facility] ECG INC INC W/LEAST 12 LDS TRCG ONLY W/O I&R BLOOD 23224 ZACK DIXON COUNT 2 [facility] COMPLETE INC INC AUTO&AUTO DIFRNTL WBC COLLECTIO 56159 ZACK DIXON N VENOUS [address] [facility] BLOOD INC INC VENIPUNCT URE BASIC 60555 ZACK DXION METABOLIC [address] [facility] PANEL INC INC CALCIUM TOTAL THERAPEUT 86600 ZACK DIXON IC 2 [facility] PROPHYLAC INC INC TIC/DX INJECTION SUBQ/IM INJECTION J0897 ZACK DIXON 2 [facility] DENOSUMAB INC INC 1 MG URNLS DIP 25543 ZACK DIXON 2 [facility] STICK/TAB INC INC LET REAGENT AUTO MICROSCOP Y COLLECTIO 98627 ZACK DIXON N VENOUS [address] [facility] BLOOD INC INC VENIPUNCT URE CREATININ 63689 ZACK DIXON E OTHER 2 [facility] SOURCE INC INC RENAL 85747 ZACK DIXON FUNCTION 2 [facility] PANEL INC INC DXA BONE 76258 [place] [facility] DENSITY 2 MEDICAL MELIDA STUDY 1/> IMAGING SITES ASS AXIAL SKEL PROTEIN 34452 ZACK DIXON XCPT [address] [facility] REFRACTOM INC INC ETRY SERUM PLASMA/WH L BLD 25 41168 ZACK DIXON HYDROXY [address] [facility] INCLUDES INC INC FRACTIONS IF PERFORMED BLOOD 67307 ZACK DIXON COUNT 2 [facility] COMPLETE INC INC AUTO&[place] [address] ZACK DIXON PARATHORM [address] [facility] ONE INC INC CONTINUOU E0601 REID [...] EQUIPME EQUIPME ARWAY PRESSURE DEVICE CV STRS 98686 [facility] PATRIC ARITA TST 2 PHYSICIAN XERS&/OR S GROUP RX CONT ECG W/O I&R CV STRS 29143 ZACK ZAPATA TST 2 [facility] XERS&/OR HOSPITAL RX CONT P ECG I&R ONLY MYOCARDIA 82055 [facility] SPECT 2 DINA MORA MULTIPLE CARDIOLOG STUDIES Y CLINIC POLYSOM 04856 ZACK DIXON 6/>YRS 2 [facility] SLEEP INC INC W/CPAP 4/> ADDL HARSHIL ATTND CULTURE 33716 ZACK DIXON BACTERIAL 2 [facility] INC INC QUANTTATI VE COLONY COUNT URINE CULTURE 15271 ZACK DIXON BCT 2 [facility] ISOL&PRSM INC INC PTV ID ISOLATE EA URINE SUSCEPTIB 08702 ZACK DIXON LTY STDY 2 [facility] ANTIMICRB INC INC IAL MICRO/AGA R DILUTJ BLOOD 91965 ZACK DIXON COUNT 2 [facility] COMPLETE INC INC AUTO&[place] [address] ZACK DIXON PARATHORM 2 [facility] ONE INC INC PROTEIN 47027 ZACK DIXON XCPT [address] [facility] REFRACTOM INC INC ETRY SERUM PLASMA/WH L BLD 25 06092 ZACK DIXON HYDROXY 2 [facility] INCLUDES INC INC FRACTIONS IF PERFORMED RENAL 12985 ZACK DIXON FUNCTION 2 [facility] PANEL INC INC URNLS DIP 39361 ZACK DIXON 2 [facility] STICK/TAB INC INC LET REAGENT AUTO MICROSCOP Y CREATININ 08596 ZACK DIXON E OTHER 2 [facility] SOURCE INC INC COLLECTIO 08559 ZACK DIXON N VENOUS 2 [facility] BLOOD INC INC VENIPUNCT URE POLYSOM 20437 ESTIVEN JEAN-BAPTISTE 6/>YRS 2 [facility] SLEEP 4/> ADDL HARSHIL ATTND BLD GLU A4253 REID MATHEWS TEST/REAG 2 HOME HOME T STRIPS MEDICAL MEDICAL HOME BLD EQUIPME EQUIPME GLU MON-50 LANCETS A4259 REID REID PER BOX 2 HOME HOME OF 100 MEDICAL MEDICAL EQUIPME EQUIPME POLYSOM 93090 ZACK DIXON 6/>YRS 2 [facility] SLEEP 4/> INC INC ADDL HARSHIL ATTND CREATINE 72871 ZACK DIXON KINASE MB 2 [facility] FRACTION INC INC ONLY RADEX 85251 LIZZ SHERI SPINE 2 MEDICAL MELIDA LUMBOSACR IMAGING AL ASS MINIMUM 4 VIEWS URNLS DIP 30212 ZACK DIXON 2 [facility] STICK/TAB INC INC LET REAGENT AUTO MICROSCOP Y BLOOD 59066 ZACK DIXON COUNT 2 [facility] COMPLETE INC INC AUTO&[place] [address] ZACK DIXON TROPONIN 2 [facility] QUANTITAT INC INC MAR[place] ECG 34549 EMEKA SHIN ROUTINE 2 EMERGENCY III NANCY ECG SERVICES W/LEAST 12 LDS I&R ONLY 3D 04899 ZACK DIXON RENDERING 2 [facility] W/INTERP INC INC & [place] [address] ZACK DIXON HEAD/BRAI 2 [facility] N W/O INC INC CONTRAST MATERIAL RADIOLOGI 28357 ZACK DIXON C 2 [facility] EXAMINATI INC INC ON CHEST SINGLE VIEW FRONTAL BASIC 99309 ZACK DIXON METABOLIC 2 [facility] PANEL INC INC CALCIUM TOTAL CREATINE 22315 ZACK DIXON KINASE 2 [facility] TOTAL INC INC ECG 07944 ZACK DIXON ROUTINE 2 [facility] ECG INC INC W/LEAST 12 LDS TRCG ONLY W/O I&R RADEX 28315 LIZZ SHERI SPINE 2 MEDICAL MELIDA THORACIC IMAGING 3 [place] [address] ZACK DIXON BLOOD/URI 2 [facility] [place] [address] ZACK DIXON PHOSPHORU 2 [facility] S INC INC INORGANIC CYANOCOBA 15112 ZACK DIXON SOHA 2 [facility] VITAMIN INC INC B-12 [place] [address] ZACK DIXON FERRITIN 2 [facility] INC INC BASIC 51905 ZACK DIXON METABOLIC 2 [facility] [place] [address] ZACK DIXON PARATHORM 2 [facility] ONE INC INC RADEX 05377 ZACK DIXON SPINE 2 [facility] CERVICAL INC INC 6 OR MORE VIEWS IRON 36451 ZACK DIXON BINDING 2 [facility] CAPACITY INC INC 25 03443 ZACK DIXON HYDROXY 2 [facility] INCLUDES INC INC FRACTIONS IF PERFORMED RADIOLOGI 65268 [place] C EXAM 2 MEDICAL MEL[facility] SKULL IMAGING COMPLETE ASS MINIMUM 4 [place] [address] ZACK DIXON IRON 2 [place] [address] ZACK DIXON FOLIC 2 [facility] ACID INC INC SERUM IRRIGAJ 55109 ZACK DIXON IMPLNTD [address] [facility] VENOUS INC INC ACCESS DRUG DELIVERY SYST GLUC BLD 75798 ZACK DIXON GLUC MNTR 2 [facility] DEV INC INC CLEARED FDA SPEC HOME USE GLUC BLD 45182 ZACK DIXON GLUC MNTR 2 [facility] DEV INC INC CLEARED FDA SPEC HOME USE NONINVASI 51473 ZACK DIXON VE [address] [facility] EAR/PULSE INC INC OXIMETRY [facility] G0378 ZACK DIXON OBSERVATI 2 [facility] ON INC INC SERVICE PER HOUR BASIC 38356 ZACK DIXON METABOLIC 2 [facility] PANEL INC INC CALCIUM TOTAL BLOOD 39957 ZACK DIXON COUNT 2 [facility] COMPLETE INC INC AUTO&AUTO DIFRNTL WBC BASIC 02655 ZACK DIXON METABOLIC 2 [facility] PANEL INC INC CALCIUM TOTAL BLOOD 49991 ZACK DIXON COUNT 2 [facility] COMPLETE INC INC AUTO&AUTO DIFRNTL [facility] G0378 ZACK DIXON OBSERVATI [address] [facility] ON INC INC SERVICE PER HOUR GLUC BLD 55980 ZACK DIXON GLUC MNTR [address] [facility] DEV INC INC CLEARED FDA SPEC HOME USE RADIOLOGI 96887 ZACK DIXON C EXAM 2 [facility] CHEST 2 INC INC VIEWS FRONTAL&L ATERAL ECG 62411 ZACK MCLEAN ROUTINE 2 [facility] W/LEAST P 12 LDS I&R ONLY ECHO 59989 [facility] T[facility] R-T 2 [facility] 2D CARDIOLOG W/WOM-MOD Y CLINIC E COMPL SPEC&[place] [address] ZACK DIXON TROPONIN 2 [facility] QUANTITAT INC INC MARIBEL INITIAL 84005 [facility] 2 PHYSICIAN CARE/DAY S GROUP 50 MINUTES NONINVASI 60500 ZACK DIXON VE 2 [facility] EAR/PULSE INC INC OXIMETRY SINGLE DETER PULMONARY 71217 [facility] 2 MEDICAL [facility] VENTILATI IMAGING ON & ASS PERFUSION IMAGING CREATINE 56997 ZACK DIXON KINASE MB [address] [facility] FRACTION INC INC ONLY TECHNETIU A9567 ZACK Flanagan TC-99M [address] [facility] PENTETATE INC INC DX AEROSOL TO 75 MCI TECHNETIU A9540 ZACK Flanagan TC-99M [address] [facility] MAA DX INC INC STDY DOSE UP TO 10 MCI CREATINE 42108 [facility] DIXON KINASE [address] [facility] TOTAL INC INC ECG 08205 ZACK DIXON ROUTINE 2 [facility] ECG INC INC W/LEAST 12 LDS TRCG ONLY W/O I&R FIBRIN 45427 ZACK DIXON DGRADJ 2 [facility] PRODUCTS INC INC D-DIMER QUAL/SEMI BARB CULTURE 12787 ZACK DIXON BACTERIAL [address] [facility] INC INC QUANTTATI VE COLONY COUNT URINE CULTURE 03871 [facility] DIXON BCT 2 [facility] ISOL&PRSM INC INC PTV ID ISOLATE EA URINE CREATINE 00470 ZACK DXION KINASE 2 [facility] TOTAL INC INC CULTURE 38009 ZACK DIXON BACTERIAL 2 [facility] BLOOD INC INC AEROBIC W/ID ISOLATES SUSCEPTIB 68478 ZACK DIXON LTY STDY [address] [facility] ANTIMICRB INC INC IAL MICRO/AGA R DILUTJ [facility] [address] [facility] EXAMINATI IMAGING ON CHEST ASS [place] FRONTAL ECG 29401 ZACK DIXON ROUTINE 2 [facility] ECG INC INC W/LEAST 12 LDS TRCG ONLY W/O I&R CREATINE 62994 ZACK DIXON KINASE MB 2 [facility] FRACTION INC INC ONLY URNLS DIP 64906 ZACK DIXON [facility] STICK/TAB INC INC LET REAGENT AUTO MICROSCOP Y COMPREHEN 26529 [facility] DIX[facility] SIVE 2 [facility] [place] [address] ZACK DIXON TROPONIN 2 [facility] QUANTITAT INC INC MARIBEL ECG 12484 EMEKA WILCOX ROUTINE 2 EMERGENCY [facility] ECG SERVICES W/LEAST 12 LDS I&R ONLY NATRIURET 52171 [facility] DIXON IC 2 [facility] PEPTIDE INC INC THERAPEUT 98137 [facility] DIXON IC 2 [facility] PROPHYLAC INC INC TIC/DX INJECTION SUBQ/IM BLOOD 89762 [facility]ACK DIXON COUNT 2 [facility] MEM [...] GLUCOSE MEDICAL MEDICAL MONITOR EQUIPME EQUIPME RADIOLOGI 66856 [place] [facility] C 2 [facility] EXAMINATI IMAGING ON CHEST ASS SINGLE VIEW FRONTAL VENOUS 3893 ZACK DIXON CATHETERI 2 [facility] ZATION INC INC NOT ELSEWHERE CLASSIFIE D RADIOLOGI 73035 [place] [facility] C EXAM 2 [facility] CHEST 2 IMAGING VIEWS ASS FRONTAL&L ATERAL RADIOLOGI 95570 [place] SHERI C EXAM 2 [facility] CHEST 2 IMAGING VIEWS ASS FRONTAL&L ATERAL HANDLG&/O 84794 FAMILY STRAWZELL R CONVEY 2 CARE CRI OF SPEC ASSOCIATE FOR TR S, PSC OFFICE TO LAB COLLECTIO 34735 FAMILY STRAWZELL N VENOUS 2 CARE CRI BLOOD ASSOCI[place], [place] [address] [place] RETROPERI 2 [facility] TONEAL IMAGING REAL TIME ASS W/IMAGE COMPLETE COMPREHEN 27648 COMBINED COMBINED SIVE 2 PHYSICIAN PHYSICIAN METABOLIC S LA S LA PANEL RADIOLOGI 26361 [place] SHERI C 2 MEDICAL MELIDA EXAMINATI IMAGING ON KNEE 3 [place] [address] COMBINED COMBINED BLOOD/URI 2 PHYSICIAN PHYSICIAN C ACID S LA S LA ANTINUCLE 86476 LAB ZOEY LAB ZOEY AR 2 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 YUNG RHEUMATOI 72870 COMBINED COMBINED D FACTOR 2 PHYSICIAN PHYSICIAN QUALITATI S LA S LA VE SEDIMENTA 04065 COMBINED COMBINED TION RATE 2 PHYSICIAN PHYSICIAN RBC S LA S LA NON-AUTOM ATED BLOOD 08923 FAMILY STRAWZELL COUNT 2 CARE CRI COMPLETE ASSOCIATE AUTO&AUTO S, PSC DIFRNTL WBC CYANOCOBA 71361 COMBINED COMBINED SOHA 2 PHYSICIAN PHYSICIAN VITAMIN S LA S LA B-12 COMPREHEN 87594 COMBINED COMBINED SIVE 2 PHYSICIAN PHYSICIAN METABOLIC S LA S LA PANEL LIPID 86968 FAMILY STRAWZELL PANEL 2 CARE CRI ASSOCIATE S, PSC COLLECTIO 25655 FAMILY STRAWZELL N VENOUS 2 CARE CRI BLOOD ASSOCIATE [place]IPUN[place], [place] [address] COMBINED COMBINED THYROID 2 PHYSICIAN PHYSICIAN STIMULATI S LA S LA NG HORMONE TSH HANDLG&/O 41134 FAMILY STRAWZELL R CONVEY 2 CARE CRI OF SPEC ASSOCIATE FOR TR S, [facility] OFFICE TO LAB 25 92046 COMBINED COMBINED HYDROXY 2 PHYSICIAN PHYSICIAN INCLUDES S LA S LA FRACTIONS IF PERFORMED HEMOGLOBI 07324 FAMILY STRAWZELL N 2 CARE CRI GLYCOSYLA ASSOCIATE ALEX A1C S, [facility] RADIOLOGI 12270 ZACK DIXON C EXAM 2 [facility] CHEST 2 INC INC VIEWS FRONTAL&L ATERAL DUP-SCAN 41742 ZACK DIXON XTR VEINS 2 [facility] INC INC UNILATERA L/LIMITED STUDY BLOOD 42477 ZACK DIXON COUNT 2 [facility] COMPLETE INC INC AUTO&AUTO DIFRNTL WBC COLLECTIO 48188 ZACK DIXON N VENOUS [address] [facility] [facility] BLOOD INC INC VENIPUNCT URE RENAL 78024 ZACK DIXON FUNCTION 2 [facility] PANEL INC INC HEPATIC 89370 ZACK DIXON FUNCTION 2 [facility] PANEL INC INC URNLS DIP 62329 ZACK DIXON 2 [facility] STICK/TAB INC INC LET REAGENT AUTO MICROSCOP Y DEBRIDEME 63821 PAWSAT PAWSAT NT NAIL 2 MAR MAR ANY METHOD 1-5 THERAPEUT 84253 ZACK DIXON IC 1 [facility] PROPHYLAC INC INC TIC/DX INJECTION SUBQ/IM BASIC 88413 ZACK DIXON METABOLIC 1 [facility] PANEL INC INC CALCIUM TOTAL COLLECTIO 21049 ZACK DIXON N VENOUS [address] [facility] BLOOD INC INC VENIPUNCT URE COLLECTIO 49842 ZACK DIXON N VENOUS [address] [facility] BLOOD INC INC VENIPUNCT URE BASIC 38899 ZACK DIXON METABOLIC [address] [facility] PANEL INC INC CALCIUM TOTAL THERAPEUT 82969 ZACK DIXON IC 1 [facility] PROPHYLAC INC INC TIC/DX INJECTION SUBQ/IM PROTEIN 03053 ZACK DIXON XCPT 1 [facility] REFRACTOM INC INC ETRY SERUM PLASMA/WH L BLD 25 49223 ZACK DIXON HYDROXY 1 [facility] INCLUDES INC INC FRACTIONS IF PERFORMED COLLECTIO 49116 ZACK DIXON N VENOUS 1 [facility] BLOOD INC INC VENIPUNCT URE URNLS DIP 05151 ZACK DIXON 1 [facility] STICK/TAB INC INC LET REAGENT AUTO MICROSCOP Y CREATININ 54534 ZACK DIXON E OTHER 1 [facility] SOURCE INC INC RENAL 01915 ZACK DIXON FUNCTION 1 [facility] PANEL INC INC BLOOD 94502 ZACK DIXON COUNT [address] [facility] COMPLETE INC INC AUTO&[place] [address] ZACK DIXON PARATHORM 1 [facility] ONE INC INC PROTEIN 47861 ZACK DIXON ELECTROPH 1 [facility] ORETIC INC INC FRACTJ&QU ANTJ SERUM BASIC 27879 ZACK DIXON METABOLIC [address] [facility] PANEL INC INC CALCIUM TOTAL COLLECTIO 41181 ZACK DIXON N VENOUS 1 [facility] BLOOD INC INC VENIPUNCT URE ARTHROCEN 88792 [facility] [place] TESIS 1 [facility] ASPIR&/IN CLINIC J MAJOR PSC JT/BURSA W/O US RADIOLOGI 03913 ZACK DIXON C EXAM [address] [facility] BOTH INC INC KNEES STANDING ANTEROPOS T INJECTION J1030 [facility] SON 1 [facility]IN[facility] DNISOLONE PSC ACETATE 40 MG DXA BONE 79506 ZACK DIXON DENSITY 1 [facility] STUDY 1/> [place] [address] ZACK DIXON RETROPERI 1 [facility] TONEAL INC INC REAL TIME W/IMAGE COMPLETE OPHTH 0[address]26 [address] [facility] 1 VISION XM&EVAL COMPRHNSV ESTAB PT 1/> NON-INVAS 67972 ZACK DIXON MARIBEL 1 [facility] PHYSIOLOG INC INC IC STUDY EXTREMITY 3 [place] [address] COMBINED COMBINED PHOSPHORU 1 PHYSICIAN [place] [address] COMBINED COMBINED PARATHORM 1 PHYSICIAN PHYSICIAN ONE S LA S LA 25 27935 COMBINED COMBINED HYDROXY 1 PHYSICIAN PHYSICIAN INCLUDES S LA S LA FRACTIONS IF PERFORMED BASIC 19911 COMBINED COMBINED METABOLIC 1 PHYSICIAN PHYSICIAN PANEL S LA S LA CALCIUM TOTAL BLD GLU A4253 REID MATHEWS TEST/REAG 1 HOME MED HOME MED T STRIPS EQUIP. L EQUIP. L HOME BLD GLU MON-50 LANCETS A4259 REID REID PER BOX 1 HOME MED HOME MED OF 100 EQUIP. L EQUIP. L COLLECTIO 34900 ZACK DIXON N VENOUS [address] [facility] [place] [address] ZACK DIXON ABDOMEN 1 [facility] W/[place] [address] ZACK DIXON UREA 1 [facility] NITROGEN INC INC QUANTITAT MARIBEL 3D 58092 ZACK DIXON RENDERING 1 [facility] INC INC W/INTERP& POSTPROC DIFF WORK STATION CREATININ 53826 ZACK DIXON E BLOOD [address] [facility] INC INC HEPATBL 62389 ZACK DIXON DUX SYS 1 [facility] IMG INC INC GLBLDR TECHNETIU A9537 ZACK DIXON M TC-99M 1 [facility] MEBROFENI INC INC N DX UP [place] 15 [place] [address] [place] ABDOMINAL 1 MEDICAL MELIDA REAL IMAGING TIME ASS W/IMAGE LIMITED COMPREHEN 15570 COMBINED COMBINED SIVE 1 PHYSICIAN PHYSICIAN METABOLIC S LA S LA PANEL COLLECTIO 25745 COMBINED COMBINED N VENOUS 1 PHYSICIAN PHYSICIAN BLOOD S LA S LA VENIPUNCT URE COLLECTIO 82105 FAMILY MULBERRY N VENOUS 1 CARE NILO BLOOD [place] [address] COMBINED COMBINED THYROID 1 PHYSICIAN PHYSICIAN STIMULATI S LA S LA NG HORMONE TSH COMPREHEN 60971 COMBINED COMBINED SIVE 1 PHYSICIAN PHYSICIAN [place] [address] COMBINED COMBINED AMYLASE 1 PHYSICIAN PHYSICIAN S LA S LA HEMOGLOBI 31727 FAMILY MULBERRY N 1 CARE NILO GLYCOSYLA ASSOCIATE ALEX A1C S BLOOD 79832 FAMILY MULBERRY COUNT 1 CARE NILO COMPLETE ASSOCIATE AUTO&[place] [address] LAB ZOEY LAB ZOEY LIPASE 1 [employer] RADIOLOGI 80515 ZACK ZACK C EXAM 1 [facility] CHEST 2 INC INC VIEWS FRONTAL&L ATERAL BASIC 84833 COMBINED COMBINED METABOLIC 1 PHYSICIAN PHYSICIAN PANEL S LA S LA CALCIUM TOTAL COLLECTIO 29717 FAMILY BRENDAN J N VENOUS 1 CARE BLOOD ASSOCIATE VENIPUNCT S URE URNLS DIP 61558 ZACK ZACK 0 [facility] STICK/TAB INC INC LET REAGENT AUTO MICROSCOP Y PRESSURIZ 75306 ZACK ZACK ED/NONPRE 0 [facility] SSURIZED INC INC INHALATIO N TREATMENT RADIOLOGI 30781 [facility] C EXAM 0 MEDICAL MELIDA CHEST 2 IMAGING VIEWS ASS FRONTAL&[place] [address] ZACK ZACK STREPTOCO 0 [facility] CCUS INC INC GROUP A IAADI 21194 ZACK DIXON INFFLUENZ 0 [facility] A A VIRUS INC INC IAADI 09281 ZACK ELLIOTTON INFLUENZA 0 [facility] B VIRUS INC INC COMPREHEN 47086 COMBINED COMBINED SIVE 0 PHYSICIAN PHYSICIAN [place] [address] COMBINED COMBINED THYROID 0 PHYSICIAN PHYSICIAN STIMULATI S LA S LA NG HORMONE TSH COLLECTIO 63637 FAMILY FAMILY N VENOUS 0 CARE CARE BLOOD ASSOCIATE ASSOCIATE VENIPUNCT S S URE OPHTH 51529 LORRAINE CA MEDICAL 0 XM&EVAL COMPRHNSV ESTAB PT 1/> FUNDUS 87661 LORRAINE PETERS LANNY PHOTOGRAP 0 HY W/INTERPR ETATION & REPORT DIAB ONLY A5500 WELLNESS WELLNESS FIT CSTM 0 LIFE LIFE PREP&SPL SYSTEMS SYSTEMS [employer] DNSITY INSRT FOR DIAB A5513 WELLNESS WELLNESS ONLY MX 0 LIFE LIFE DNSITY SYSTEMS [employer] CSTM MOLD CSTM EA RADIOLOGI 59968 LIZZ DIASCHER C 0 MEDICAL MELIDA EXAMINATI IMAGING ON ANKLE ASS 2 VIEWS RADIOLOGI 18315 ZACK DIXON C 0 [facility] EXAMINATI INC INC ON ANKLE 2 VIEWS WALKING L4360 [employer] BOOT 0 TECHNOLOG TECHNOLOG PNEUMATC IES INC IES INC &/ VACUUM PREFAB CUSTM FIT RADIOLOGI 55453 ZACK DIXON C 0 [facility] EXAMINATI INC INC ON FOOT 2 VIEWS RADEX 69756 LIZZ SHERI FOOT 0 MEDICAL MELIDA COMPLETE IMAGING MINIMUM 3 ASS VIEWS RADEX 25706 ZACK DIXON FOOT 0 [facility] COMPLETE INC INC MINIMUM 3 [place] [address] [facility] PETTEY 0 PHYSICIAN JAM CALCANEAL S GROUP FRACTURE W/O MANIPULAT ION RADEX 47572 ZACK ZACK CALCANEUS 0 [facility] MINIMUM INC INC 2 VIEWS RADIOLOGI 61476 ZACK DIXON C 0 [facility] EXAMINATI INC INC ON PELVIS 1/2 VIEWS RADIOLOGI 12007 ZACK ZACK C 0 [facility] EXAMINATI INC INC ON TIBIA & FIBULA 2 [place] [address] [facility] 0 EMERGENCY CHIDI CALCANEAL SERVICES FRACTURE W/O MANIPULAT ION GROUND A0425 [facility] MILEAGE 0 AMBULANCE AMBULANCE PER SERVICE SERVICE STATUTE MILE AMBULANCE A0429 [facility] SERVICE 0 AMBULANCE AMBULANCE BLS SERVICE SERVICE EMERGENCY TRANSPORT COLLECTIO 71141 FAMILY MULBERRY N VENOUS 0 CARE NILO BLOOD ASSOCIATE VENIPUNCT S URE PPSV23 41167 FAMILY FAMILY VACCINE 2 0 CARE CARE YRS OR ASSOCIATE ASSOCIATE OLDER FOR S S SUBQ/IM USE HEMOGLOBI 43946 FAMILY MULBERRY N 0 CARE NILO GLYCOSYLA ASSOCIATE ALEX A1C S BLOOD 08821 FAMILY MULBERRY COUNT 0 CARE NILO COMPLETE ASSOCIATE AUTO&AUTO S DIFRNTL WBC 25 87540 LAB ZOEY LAB ZOEY HYDROXY 0 AMERIC AMERIC INCLUDES HOLD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 IF PERFORMED GLUCOSE 17230 FAMILY MULBERRY POST 0 CARE NILO GLUCOSE ASSOCIATE DOSE S ADMINISTR G0009 FAMILY MULBERRY ATION OF 0 CARE NILO PNEUMOCOC ASSOCIATE JORDYN S VACCINE CYANOCOBA 26556 COMBINED COMBINED SOHA 0 PHYSICIAN PHYSICIAN VITAMIN S LAB S LAB B-12 [place] [address] COMBINED COMBINED FERRITIN 0 PHYSICIAN [place] [address] COMBINED COMBINED FOLIC 0 PHYSICIAN PHYSICIAN [place] [address] COMBINED COMBINED IRON 0 PHYSICIAN PHYSICIAN S LAB S LAB LIPID 82729 COMBINED COMBINED PANEL 0 PHYSICIAN PHYSICIAN S LAB S LAB COMPREHEN 16551 COMBINED COMBINED SIVE 0 PHYSICIAN PHYSICIAN METABOLIC S LAB S LAB PANEL COLLECTIO 74434 FAMILY MULBERRY, N VENOUS 0 CARE CLEO T BLOOD ASSOCIATE VENIPUNCT S URE HEMOGLOBI 84708 FAMILY MULBERRY, N 0 CARE CLEO T GLYCOSYLA ASSOCIATE ALEX A1C S BLOOD 47975 FAMILY MULBERRY, COUNT 0 CARE CLEO T COMPLETE ASSOCIATE AUTO&AUTO S DIFRNTL WBC BLOOD 68773 FAMILY MULBERRY, COUNT 0 CARE CLEO T COMPLETE ASSOCIATE AUTO&AUTO S DIFRNTL WBC BASIC 91292 COMBINED COMBINED METABOLIC 0 PHYSICIAN PHYSICIAN PANEL S LAB S LAB CALCIUM TOTAL COLLECTIO 59440 FAMILY MULBERRY, N VENOUS 0 CARE CLEO T BLOOD ASSOCIATE VENIPUNCT S URE LANCETS A4259 REID MATHEWS PER BOX 0 HOME MED HOME MED OF 100 [facility] LLC BLD GLU A4253 REID MATHEWS TEST/REAG 0 HOME MED HOME MED T STRIPS EQUIP. EQUIP. HOME BLD LLC LLC GLU MON-50 HOSPITAL 14716 FAMILY LOGANBERRY, DISCHARGE 0 CARE CLEO T DAY ASSOCIATE MANAGEMEN S T > 30 MIN RADIOLOGI 94724 John ANTON EXAM 0 MEDICAL XAVI P CHEST 2 IMAGING VIEWS ASSOCIATE FRONTAL&L S ATERAL SBSQ 30878 FAMILY JADA, HOSPITAL 0 CARE CLEO T CARE/DAY ASSOCIATE 25 S MINUTES ECG 67170 EMEKA BRENDEN, ROUTINE 0 EMERGENCY [facility] ECG SERVICES W/LEAST 12 LDS ASSOCIATE I&R ONLY S RADIOLOGI 67234 LIZZ WADE, C EXAM 0 MEDICAL RAYMUNDO CHEST 2 IMAGING VIEWS ASSOCIATE FRONTAL&L S ATERAL ECHO 14732 [facility] FALLUJI, TTHRC R-T 0 PHYSICIAN MINNA [place] GROUP W/WOM-MOD E COMPL SPEC&COLR D INITIAL 06665 [facility] 0 CARE CLEO T CARE/DAY ASSOCIATE 50 [place] [address] [facility] BRIANSHERI, PART VNTJ 0 MEDICAL RAYMUNDO IMG IMAGING AERSL ASSOCIATE 1/CARD READER S PRJCJ INTRO 60259 EMEKA BRENDEN, NEEDLE/IN 0 EMERGENCY [facility] TRACATH SERVICES EXTREMITY ARTERY ASSOCIATE S GROUND A0425 [facility] MILEAGE 0 AMBULANCE AMBULANCE PER SERVICE SERVICE STATUTE MILE AMB A0427 [facility] SERVICE 0 AMBULANCE AMBULANCE ALS SERVICE SERVICE EMERGENCY TRANSPORT LEVEL 1 IAADIADOO 00336 [facility], 0 CARE CLEO T STREPTOCO ASSOCIATE CCUS S GROUP A ORTHOPANT 81839 [facility] WADE, OGRAM 0 MEDICAL RAYMUNDO IMAGING ASSOCIATE S RENAL 25261 ZACK DIXON FUNCTION 0 [facility] PANEL INC INC COLLECTIO 08929 ZACK DIXON N VENOUS 0 [facility] BLOOD INC INC VENIPUNCT URE BLD GLU A4253 DIABETES DIABETES TEST/REAG 0 CARE CLUB CARE CLUB T STRIPS [facility] LLC HOME BLD GLU MON-50 LANCETS A4259 DIABETES DIABETES PER BOX 0 CARE CLUB CARE CLUB OF 100 [facility] NORMAL A4256 DIABETES DIABETES LOW AND 0 CARE CLUB CARE CLUB HIGH [facility] CALIBRATO R SOLUTION/ CHIPS RENAL 86203 ZACK DIXON FUNCTION 9 [facility] PANEL INC INC COLLECTIO 16483 ZACK DIXON N VENOUS [address] [facility] [facility] BLOOD INC INC VENIPUNCT URE ELECTRIC E0215 DIABETES DIABETES HEAT PAD 9 CARE CLUB CARE CLUB MOIST [facility] LANCETS A4259 DIABETES DIABETES PER BOX 9 CARE CLUB CARE CLUB OF 100 LLC LLC NORMAL A4256 DIABETES DIABETES LOW AND 9 CARE CLUB CARE CLUB HIGH LLC LLC CALIBRATO R SOLUTION/ CHIPS BLD GLU A4253 DIABETES DIABETES TEST/REAG 9 CARE CLUB CARE CLUB T STRIPS [facility] LLC [place] GLU MON-50 [place] [address] ZACK DIXON RETROPERI 9 [facility] TONEAL INC INC REAL TIME W/IMAGE COMPLETE RENAL 42418 ZACK DIXON FUNCTION 9 [facility] PANEL INC INC URNLS DIP 24757 ZACK DIXON 9 [facility] STICK/TAB INC INC LET REAGENT AUTO MICROSCOP Y COLLECTIO 49356 ZACK DIXON N VENOUS 9 [facility] BLOOD INC INC VENIPUNCT URE COMPLEMEN 15577 ZACK DIXON T 9 [facility] FUNCTIONA INC INC L ACTIVITY EACH COMPONENT SUSCEPTIB 15354 ZACK DIXON LTY STDY 9 [facility] ANTIMICRB INC INC IAL MICRO/AGA R DILUTJ CULTURE 16373 ZACK DIXON BCT 9 [facility] ISOL&PRSM INC INC PTV ID ISOLATE EA URINE ANTISTREP 43970 ZACK DIXON TOLYSIN O 9 [facility] SCREEN INC INC CULTURE 07643 ZACK DIXON BACTERIAL 9 [facility] INC INC QUANTTATI VE COLONY COUNT URINE ANTINUCLE 84600 ZACK DIXON AR 9 [facility] [place] [address] ZACK DIXON BLOOD/URI 9 [facility] C ACID INC INC BASIC 57636 ZACK DIXON METABOLIC 9 [facility] PANEL INC INC CALCIUM TOTAL COLLECTIO 72541 ZACK DIXON N VENOUS 9 [facility] BLOOD INC INC VENIPUNCT URE COLLECTIO 22042 ZACK DIXON N VENOUS 9 [facility] [place] [address] ZACK DIXON THYROID 9 [facility] STIMULATI INC INC NG HORMONE TSH COMPREHEN 63103 ZACK DIXON SIVE 9 [facility] METABOLIC INC INC PANEL BLOOD 49775 ZACK DIXON COUNT 9 [facility] COMPLETE INC INC AUTO&AUTO DIFRNTL WBC REPL KIM A4235 DIABETES DIABETES LITHIUM 9 CARE CLUB CARE CLUB MED NECES [facility] LLC LIBERTY BG MON OWN PT EA SPRING-PO A4258 DIABETES DIABETES WERED 9 CARE CLUB CARE CLUB DEVICE [facility] LLC FOR LANCET EACH BLD GLU A4253 DIABETES DIABETES TEST/REAG 9 CARE CLUB CARE CLUB T STRIPS LLC LLC HOME BLD GLU MON-50 NORMAL A4256 DIABETES DIABETES LOW AND 9 CARE CLUB CARE CLUB HIGH LLC LLC CALIBRATO R SOLUTION/ CHIPS LANCETS A4259 DIABETES DIABETES PER BOX 9 CARE CLUB CARE CLUB OF 100 [facility] OPHTH 88756 LORRAINE PETERS, MEDICAL 9 GEE A GEE A XM&EVAL COMPRHNSV ESTAB PT 1/ COLLECTIO 27911 FAMILY MULBERRY, N VENOUS 9 CARE CLEO T BLOOD ASSOCIATE VENIPUNCT S URE CREATININ 17760 FAMILY MULBERRY, E OTHER 9 CARE CLEO T SOURCE ASSOCIATE S HEMOGLOBI 04397 COMBINED COMBINED N 9 PHYSICIAN PHYSICIAN GLYCOSYLA S LAB S LAB ALEX A1C ALBUMIN 59003 FAMILY MULBERRY, URINE 9 CARE CLEO T MICROALBU ASSOCIATE MIN S SEMIQUANT ITATIVE LANCETS A4259 DIABETES DIABETES PER BOX 9 CARE CLUB CARE CLUB OF 100 LLC LLC NORMAL A4256 DIABETES DIABETES LOW AND 9 CARE CLUB CARE CLUB HIGH [facility] LLC CALIBRATO R SOLUTION/ CHIPS BLD [...] 8 CARE CLUB CARE CLUB OF 100 [facility] THERAPEUT 14536 PROFESSIO CROSSFIEL ACTVITY 8 NAL REHAB D, DIRECT PT ASSOC DANNITA CONTACT PSC EACH 15 MIN MANUAL 42918 PROFESSIO CROSSFIEL THERAPY 8 NAL REHAB D, TQS 1/> ASSOC DANNITA REGIONS PSC EACH 15 MINUTES THERAPEUT 03504 PROFESSIO CROSSFIEL IC PX 1/> 8 NAL REHAB D, AREAS ASSOC DANNITA EACH 15 PSC MIN EXERCISES CANE E0105 REID MATHEWS QUAD/3-GA 8 HOME MED HOME MED GABINO ALL EQUIP. EQUIP. MATL [facility] ADJUSTBL/ FIX W/TIPS THERAPEUT 79881 PROFESSIO CROSSFIEL IC PX 1/> 8 NAL REHAB D, AREAS ASSOC DANNITA EACH 15 PSC MIN EXERCISES MANUAL 37877 PROFESSIO CROSSFIEL THERAPY 8 NAL REHAB D, TQS 1/> ASSOC DANNITA REGIONS PSC EACH 15 MINUTES PHYSICAL 54016 PROFESSIO CROSSFIEL THERAPY 8 NAL REHAB D, EVALUATIO ASSOC DANNITA N PSC RADEX 37927 ZACK DIXON SPINE [address] [facility] LUMBOSACR INC INC AL MINIMUM 4 VIEWS RADEX HIP 40285 ZACK DIXON [address] [facility] UNILATERA INC INC L COMPLETE MINIMUM 2 VIEWS Encounters Encounter Start End Date Code Location Performer Type Date HOSPITAL ZACK - [address] [facility] INPATIENT INC EMERGENCY 54552 RUDY JOINER DEPT 7 7 PHYSICIAN VISIT S, [facility] HIGH SEVERITY& THREAT [facility] ZACK - 6 6 [facility] OUTPATIEN INC T OFFICE 49335 CAMERON GORDILLO OUTPATI 6 6 MEDICAL T VISIT SERV 25 FOUNDATIO MINUTES N HOSPITAL ZACK - [address] [facility] OUTPATIEN [facility] T EMERGENCY 45306 RUDY JIMENEZ DEPT 6 6 PHYSICIAN LEANN VISIT S, [facility] HIGH SEVERITY& THREAT [facility] ZACK Oquendo OTHER 6 6 MEM [facility] INC OFFICE 68127 [place] ERIBERTO GORDILLO OUTPATIEN 6 6 MEDICAL T VISIT SERV 25 FOUNDATIO MINUTES N HOSPITAL ZACK - OTHER 6 6 [facility] INC OFFICE 73107 [place] WILL OUTPATIEN 6 6 [facility] T VISIT INTERNAL 15 MEDI MINUTES EMERGENCY 29964 ZACK 6 6 [facility] DEPARTMEN INC T VISIT HIGH/URGE NT SEVERITY EMERGENCY 63318 RUDY CYR [facility] DEPT 6 6 PHYSICIAN VISIT S, [facility] HIGH SEVERITY& THREAT [facility] ZACK - 6 6 [facility] OUTPATIEN INC T OFFICE 51988 [place] VIN[place] OUTPATIEN 6 6 [facility] T VISIT INTERNAL 15 MED MINUTES EMERGENCY 88023 ZACK 6 6 [facility] DEPARTMEN INC T VISIT MODERATE SEVERITY HOSPITAL ZACK - 6 6 [facility] OUTPATIEN INC T EMERGENCY 33500 RUDY WILCOX 6 6 PHYSICIAN CHIDI DEPARTMEN [facility] T VISIT HIGH/URGE NT SEVERITY [facility] INPATIENT 6 6 [facility] INPATIENT 6 6 [facility] EMERGENCY 42188 ZACK 5 5 [facility] DEPARTMEN INC T VISIT LOW/MODER SEVERITY HOSPITAL ZACK - 5 5 [facility] OUTPATIEN INC T [facility] INPATIENT 5 5 [facility] INPATIENT 5 5 [facility] ZACK - 5 5 [facility] INPATIENT INC OFFICE 69322 ZACK PEREZPATIEN 5 5 [facility] T VISIT 5 HOSPITAL MINUTES P HOSPITAL ZACK - 5 5 [facility] OUTPATIEN INC T EMERGENCY 02775 ZACK 5 5 [facility]NOTE 2] T VISIT LIMITED/M INOR PROB OFFICE 03949 ZACK CALDERON OUTPATIEN 5 5 [facility] 10 P MINUTES OFFICE 29699 CAMERON STEWARTEN 5 5 MEDICAL T VISIT SERV 25 FOUNDATIO MINUTES HOSPITAL ZACK - 5 5 [facility] OUTPATIEN [facility] HOSPITAL ZACK - 5 [address] [facility] [facility] T OFFICE 03102 [place] WILL OUTPATIEN [address] [facility] VISIT INTERNAL 25 MEDI [facility] ZACK - [address] [facility] OUTPATIEN [facility] T OFFICE 41813 ZACK CALDERON OUTPATIEN 5 5 [facility] 15 P MINUTES HOSPITAL ZACK - OTHER [address] [facility] INC OFFICE 13213 ZACK CALDERON OUTPATIEN 5 5 [facility] [address] [facility] INPATIENT 5 5 [facility] OFFICE 14736 CAMERON GORDILLO OUTPATIEN 5 5 MEDICAL T VISIT SERV 25 FOUNDATIO MINUTES [facility] IN[facility] 5 5 [facility] IN[facility] 5 5 [facility] INPATIENT 5 5 [facility] ZACK - 5 5 [facility] INPATIENT INC EMERGENCY [id number] ZACK Dawn 5 5 [facility] T VISIT P LOW/MODER SEVERITY HOSPITAL ZACK - 5 5 [facility] OUTPATIEN [facility] HOSPITAL ZACK - [address] [facility] T OFFICE 08375 CAMERON GORDILLO OUTONESIMO 4 4 MEDICAL T VISIT SERV 25 FOUNDATIO MINUTES [facility] ZACK - [address] [facility] OUTPATIEN [facility] T EMERGENCY [id number] [facility] DEPT 4 4 ERIC IMT VISIT EMERGENCY HIGH PHYS SEVERITY& THREAT [facility]J EMERGENCY 03406 ZACK [address] [facility] T VISIT MODERATE [facility]VERITY HOSPITAL ZACK - [address] [facility] OUTPATIEN [facility] HOSPITAL ZACK [facility] OTHER 4 4 [facility] ZACK - [address] [facility] OUTPATIEN [facility] OFFICE 07064 CAMERON GORDILLO OUTPATIEN 4 4 MEDICAL T VISIT SERV 25 [facility] ZACK [facility] OTHER 4 4 [facility] ZACK - [address] [facility] OUTPATIEN [facility] OFFICE 45353 [facility] OUTPATIEN 3 3 PHYSICIAN JAM T VISIT S GROUP 15 MINUTES OFFICE 74566 CAMERON GORDILLO OUTPATIMICA 3 3 MEDICAL T VISIT SERV 25 [facility] ZACK - 3 3 [facility] OUTPATIEN [facility] Emergency RIP Shin (ER) 3 08:47 3 09:14 [facility] Celso E. EMERGENCY 04546 ZACK 3 3 [facility] [place]NOTE 2] T VISIT LIMITED/M INOR [facility] ZACK Oquendo [address] [facility] OUTPATIEN [facility] EMERGENCY 41329 EMEKA SHIN 3 3 EMERGENCY III [facility] T VISIT HIGH/URGE NT SEVERITY Emergency RIP Shields MD (ER) 3 07:59 3 14:30 [facility] ZACK - 3 3 [facility] OUTPATIEN [facility] EMERGENCY [address] ZACK [address] [facility] VISIT HIGH/URGE NT SEVERITY EMERGENCY 04519 EMEKA LIRA DEPT 3 3 EMERGENCY VISIT SERVICES HIGH SEVERITY& THREAT [facility] ZACK - 3 3 [facility] OUTPATIEN [facility] ZACK - 3 3 [facility] OFFICE [address] [place] ERIBERTO GORDILLO OUTPATIEN 3 3 MEDICAL T VISIT SERV 25 [facility] ZACK [facility] [address] [facility] OUTPATIEN [facility] ZACK - [address] [facility] OUTPATIEN [facility] ZACK - [address] [facility] OUTPATIEN [facility] ZACK [facility] [address] [facility] OUTPATIEN [facility] ZACK [facility] [address] [facility] OUTPATIEN [facility] ZACK - [address] [facility] OUTPATIEN [facility] EMERGENCY 79165 EMEKA CASTELLANO DEPT 2 2 EMERGENCY VISIT SERVICES HIGH SEVERITY& THREAT [facility] ZACK - 2 2 [facility]EN [facility] AZCK - 2 2 [facility] OUT[facility]IEN [facility] OFFICE [address]18 [place] OUTPATIEN 2 2 MEDICAL T VISIT SERV 25 [facility] ZACK [facility] 2 2 MEM [facility]P OUTPATIEN [facility] ZACK - 2 2 [facility] ZACK - 2 2 [facility]IEN [facility] OFFICE 21518 [place] OUTPATIEN 2 2 MEDICAL T VISIT SERV [facility] ZACK - 2 2 [facility] OUTPATIEN INC T EMERGENCY 83563 EMEKA SHIN DEPT 2 2 EMERGENCY III NANCY VISIT SERVICES HIGH SEVERITY& THREAT [facility] ZACK - 2 2 [facility] OUTPATIEN INC T EMERGENCY [address] ZACK [address] [facility] DEPARTMEN INC T VISIT HIGH/URGE NT SEVERITY [facility]OSPITAL ZACK - 2 2 [facility] OUTPATIEN INC T EMERGENCY 84928 EMEKA WILCOX DEPT 2 2 EMERGENCY CHIDI VISIT SERVICES HIGH SEVERITY& THREAT [facility] ZACK - 2 2 [facility] OUTPATIEN INC T EMERGENCY 79032 ZACK [address] [facility] DEPARTMEN INC T VISIT HIGH/URGE NT SEVERITY [facility]OSPITAL ZACK - 2 2 [facility] INPATIENT INC OFFICE 13902 FAMILY STRAWZELL OUTPATIEN 2 2 CARE CRI T VISIT ASSOCIATE 25 S, [facility] MINUTES OFFICE 77670 FAMILY STRAWZELL OUTPATIEN 2 2 CARE CRI T VISIT ASSOCIATE 15 S, [facility] ZACK - [address] [facility] OUTPATIEN INC T EMERGENCY 75547 ZACK [address] [facility] VISIT LOW/MODER SEVERITY EMERGENCY 80088 EMEKA SHIN 2 2 EMERGENCY III [facility] T VISIT HIGH/URGE NT SEVERITY OFFICE 96305 CAMERON GORDILLO OUTPATIEN 2 2 MEDICAL T VISIT SERV 25 [facility] ZACK - [address] [facility] OUTPATIEN INC T OFFICE 50545 PAWSAT PAWSAT OUTPATIEN 2 2 Aug T [facility] 30 [facility] ZACK - 1 1 [facility] OUTPATIEN INC [place]ICE 63457 [place] OUTPATI[place] 1 1 MEDICAL T VISIT SERV 25 [facility] ZACK - 1 1 [facility] OUTPATIEN [facility] ZACK - 1 1 [facility] OUTPATIEN [facility]PITAL ZACK - 1 1 [facility] OUTPATIEN INC EMERGENCY 29536 EMEKA HARDY 1 1 EMERGENCY DEPARTMEN SERVICES T VISIT MODERATE SEVERITY HOSPITAL ZACK - [address] [facility] OUTPATIEN [facility] ZACK - 1 1 [facility] ZACK [facility] [address] [facility] OUTPATIEN [facility] OFFICE 95406 [place] [facility] OUTPATIEN 1 1 [place] [facility] NEW 45 CLINIC MINUTES [facility] Z[facility] - [address] [facility] OUTPATIEN [facility] OFFICE [address] [place] OUTPATIEN 1 1 MEDICAL T NEW 60 SERV MINUTES [facility] ZACK - [address] [facility] OUTPATIEN INC OFFICE 56509 FAMILY MULBERRY OUTPATIEN 1 1 CARE NILO T VISIT ASSOCIATE 40 S MINUTES EMERGENCY 14268 EMEKA WU 1 1 EMERGENCY JAM DEPARTMEN SERVICES T VISIT MODERATE SEVERITY [facility] - 1 1 [facility] OUTPATIEN INC T EMERGENCY 67300 ZACK 1 1 [facility] DEPARTMEN INC T VISIT LOW/MODER SEVERITY OFFICE 29374 FAMILY MULBERRY OUTPATIEN 1 1 CARE NILO T VISIT ASSOCIATE 25 S MINUTES OFFICE 43009 FAMILY MULBERRY OUTPATIEN 1 1 CARE NILO T VISIT ASSOCIATE 15 S MINUTES [facility] - 1 1 [facility] OUT[facility]IEN INC T OFFICE 59269 ALLJULIA JR ALLJULIA SLOAN OUTPATIEN 1 1 [facility] ZACK - 1 1 [facility] T [facility] ZACK - 1 1 [facility] OUTPATIEN INC T OFFICE 76810 FAMILY JADA OUTPATIEN 1 1 CARE NILO T VISIT ASSOCIATE 25 S MINUTES EMERGENCY 65380 ZACK 1 1 [facility] DEPARTMEN INC T VISIT LOW/MODER SEVERITY EMERGENCY 85838 EMEKA POWELLDARLENE CASTELLANO 1 1 EMERGENCY DEPARTMEN SERVICES T VISIT HIGH/URGE NT SEVERITY [facility] - 1 1 [facility] OUTPATIEN INC T OFFICE 87980 FAMILY BRENDAN J OUTPATIEN 1 1 CARE T VISIT ASSOCIATE 15 S MINUTES [facility] ZACK - 0 0 [facility] OUT[facility]IEN INC T EMERGENCY 82278 EMEKA BRENDEN 0 0 EMERGENCY [facility] DEPARTMEN SERVICES T VISIT HIGH/URGE NT SEVERITY EMERGENCY 31623 ZACK 0 0 [facility] DEPARTMEN INC T VISIT LOW/MODER SEVERITY OFFICE 95229 FAMILY BRENDAN J OUTPATIEN 0 0 CARE T VISIT ASSOCIATE 15 S MINUTES OFFICE 50494 FAMILY BRENDAN J OUTPATIEN 0 0 CARE T VISIT ASSOCIATE 15 S MINUTES [facility]ITAL ZACK - 0 0 [facility]IEN INC T OFFICE 60760 FAMILY JADA OUTPATIEN 0 0 CARE NILO T VISIT ASSOCIATE 25 S MINUTES [facility]OSP[facility] ZACK - 0 0 [facility] T [facility] ZACK - 0 0 [facility] OUTPATIEN INC T OFFICE 81508 [facility] OUTPATIEN 0 0 PHYSICIAN JAM T NEW 45 S GROUP MINUTES [facility]OSPITAL ZACK - 0 0 [facility] OUTPATIEN INC T EMERGENCY 57580 EMEKA WILCOX 0 0 EMERGENCY [facility] DEPARTMEN SERVICES T VISIT HIGH/URGE NT SEVERITY EMERGENCY 63273 ZACK 0 0 [facility] DEPARTMEN INC T VISIT MODERATE SEVERITY OFFICE 01812 FAMILY MULBERRY OUTPATIEN 0 0 CARE NILO T VISIT ASSOCIATE 25 S MINUTES OFFICE 18305 FAMILY MULBERRY, OUTPATIEN 0 0 CARE CLEO T T VISIT ASSOCIATE 15 S MINUTES OFFICE 68984 FAMILY MULBERRY, OUTPATIEN 0 0 CARE CLEO T T VISIT ASSOCIATE 25 S MINUTES OFFICE 81817 FAMILY MULBERRY, OUTPATIEN 0 0 CARE CLEO T T VISIT ASSOCIATE 15 S MINUTES OFFICE 24506 FAMILY MULBERRY, OUTPATIEN 0 0 CARE CLEO T T VISIT ASSOCIATE 25 S MINUTES [facility] Z[facility] - 0 0 [facility] INPATIENT INC EMERGENCY 86869 EMEKA WILCOX, DEPT 0 0 EMERGENCY TAYA S VISIT SERVICES HIGH SEVERITY& ASSOCIATE THREAT S [facility] OFFICE 63376 FAMILY MULBERRY, OUTPATIEN 0 0 CARE CLEO T T VISIT ASSOCIATE 15 S MINUTES [facility]OSPITAL ZACK - 0 0 [facility] OUTPATIEN INC T EMERGENCY 89578 ZACK 0 0 [facility] DEPARTMEN INC T VISIT LOW/MODER SEVERITY [facility] Z[facility] - 0 0 [facility] OUTPATIEN INC T OFFICE 45420 MEANS BUTROS, OUTPATIEN 9 9 ADULT REZKALLA T VISIT PRIMARY 15 CARE MINUTES [facility] ZACK - 9 9 [facility] OUTPATI[facility] INC T OFFICE 33865 MEANS BUTROS, OUTPATIEN 9 9 ADULT REZKALLA T VISIT PRIMARY 25 CARE MINUTES [facility] ZACK - 9 9 [facility] OUTPATIEN INC T OFFICE 97052 FRANK ALENA [place] 9 9 ADULT BERNARDA ION PRIMARY [facility] 80 MIN [facility]OSPITAL ZACK - 9 9 [facility] OUTPATIEN INC T OFFICE 20791 FAMILY ELIAS OUTPATIEN 9 9 CARE CLEO T T VISIT ASSOCIATE 15 S MINUTES OFFICE 05178 FAMILY ELIAS OUTPATIEN 9 9 CARE CLEO T T VISIT ASSOCIATE 25 S MINUTES [facility]ITAL ZACK - 9 9 [facility] OUTPATIEN INC T OFFICE 84770 FAMILY ELIAS OUTPATIEN 9 9 CARE CLEO T T VISIT ASSOCIATE 25 S MINUTES OFFICE 46120 CHRIS WALLACEPATIMICA 8 8 CARE R PADMINI T VISIT ASSOCIATE 25 S MINUTES [facility]PITAL ZACK - 8 8 [facility] OUTPATIEN INC T OFFICE 25813 Sameer MARCOS OUTPATIEN 8 8 CARE G T VISIT ASSOCIATE 15 S MINUTES EMERGENCY 59590 ZACK LINN, [address] [facility] T VISIT PROF SERV LOW/MODER SEVERITY [facility] ZACK - 8 8 [facility]EN INC T [facility]OSPITAL ZACK - 8 8 [facility] OUTPATIEN INC T EMERGENCY 88551 ZACK 8 8 [facility] T VISIT LIMITED/M INOR PROB
--- OUTSIDE RECORDS SUMMARY | 2016-10-19 17:17 | External Medical Summary Rpt ---
Author Author , Organization [employer] Address Unknown Phone Unavailable Care Team Providers Care Fashion Consultant Sales Name Role Phone CALDERON VALENTINE, CALDERON Unavailable Unavailable VALENTINE [employer] Unavailable Unavailable INC, [employer] Unavailable Unavailable INC, [employer] ALLRAN JR ELAINE, ALLRAN Unavailable Unavailable JR ELAINE ALLRAN JR ELAINE, ALLRAN Unavailable Unavailable JR ELAINE [facility], Unavailable Unavailable [facility], Unavailable Unavailable [facility] AYARAM, APRIL, AYARAM, Unavailable Unavailable APRLI CHAPMAN HOL, CHAPMAN Unavailable Unavailable HOL BEINEKE KAY, BEINEKE Unavailable Unavailable KAY BALJINDER L, BALJINDER L Unavailable Unavailable BESSON TRACY, BESSON Unavailable Unavailable TRACY RODRIGUEZ ALL, RODRIGUEZ ALL Unavailable Unavailable [facility] Unavailable Unavailable SERVICE, [facility] Unavailable Unavailable SERVICE, [facility] BUTROS, REZKALLA, Unavailable Unavailable BUTROS, REZKALLA [facility] Unavailable Unavailable CONSULTANTS O, [facility] Unavailable Unavailable CAMPUS, [facility] Unavailable Unavailable CAMPUS, [facility] Unavailable Unavailable [place], [facility] Unavailable Unavailable [facility], [facility] Unavailable Unavailable LAB, [facility] COOK JUAN J, COOK JUAN J Unavailable Unavailable BRENDAN Estrella, BRENDAN J Unavailable Unavailable Sameer CARDONA, BRENDAN, Unavailable Unavailable J G CROSSFIELD, DANNITA, Unavailable Unavailable CROSSFIELD, DANNITA SHERI MELIDA, Unavailable Unavailable SHERI MELIDA RAYMUNDO WADE, Unavailable Unavailable SHERI, RAYMUNDO [facility], Unavailable Unavailable [facility] Unavailable Unavailable LLC, [facility] JEAN-BAPTISTE LEIGHTON, Unavailable Unavailable JEAN-BAPTISTE LEIGHTON [facility], Unavailable Unavailable [facility] LE[facility]ON DORITA DELUNA Unavailable Unavailable MINNA BAINS, Unavailable Unavailable MINNA [facility]EV[facility] Unavailable Un[facility], [facility] Unavailable Unavailable [facility], [facility], [facility] WILL SAR, Unavailable Unavailable WILL SAR FOSTER JAM, FOSTER Unavailable Unavailable JAM BRENDEN CHIDI, BRENDEN Unavailable Unavailable CHIDI BRENDEN, TAYA S, Unavailable Unavailable TAYA WILCOX S MARISOL ANDREZ, Unavailable Unavailable MARISOL ANDREZ [facility] Unavailable Unavailable INC, [facility] Unavailable Unavailable HOSPITAL P, [facility] P PETERS LANNY, PETERS LANNY Unavailable Unavailable PETERS LANNY, PETERS LANNY Unavailable Unavailable PETERS, GEE A, Unavailable Unavailable PETERS, GEE A [facility], Unavailable Unavailable [facility] JOINER, JOINER Unavailable Unavailable KLARISSA IMT, KLARISSA Unavailable Unavailable [facility]MT [facility], [facility] KOTTER JUAN J, KOTTER [...] JR DWI, ESTEVAN Unavailable Unavailable JR DWI ESTEVAN, REMEDIOS E, Unavailable Unavailable ESTEVAN, REMEDIOS E [facility] Unavailable Unavailable INTERNAL MED, [facility] Unavailable Unavailable [facility], [facility] Unavailable Unavailable SERVICES, [facility] MCKEMIE JR NANCY, Unavailable Unavailable MCKEMIE JR NANCY MICH CARLOS, MICH Unavailable Unavailable CARLOS XAVI EPPS P, Unavailable Unavailable XAVI EPPS P MULBERRY NILO, Unavailable Unavailable MULBERRY NILO MULBERRY, CLEO T, Unavailable Unavailable MULBERRY, CLEO T CROWELL SON, CROWELL SON Unavailable Unavailable [facility] Unavailable Unavailable [facility], [facility] Clemente OCAMPO, Unavailable Unavailable Clemente OC[facility], Unavailable Unavailable [facility], Unavailable Unavailable PLL[facility], [facility] PAWSAT MAR, PAWSAT Unavailable Unavailable MAR PAWSAT MAR, PAWSAT Unavailable Unavailable MAR PETTEY JAM, PETTEY Unavailable Unavailable JAM SADEK MOH, SADEK MOH Unavailable Unavailable PIETRO, [...] Unavailable Unavailable EQUIPME, [facility] Unavailable Unavailable EQUIPME, [facility] Unavailable Unavailable EMERGENCY PHYS, [facility] Unavailable Unavailable [facility]IN[facility], [facility] STRAWZELL CRI, Unavailable Unavailable STRAWZELL CRI [facility], Unavailable Unavailable [facility], Unavailable Unavailable [facility] WEI RAND, WEI RAND Unavailable Unavailable WEHRMAN III NANCY, Unavailable Unavailable WEHRMAN III NANCY [facility] Unavailable Unavailable LLC, [facility] ELSA LIRA, ELSA LIRA Unavailable Unavailable Purpose Continuity of Care Document - 11-11-2007 through 2016 Problems Code Diagnosis DOS Provider Status E109 TYPE 1 09-14-2016 [facility] DIABETES [facility] MELLITUS GROUP WITHOUT COMPLICATIO NS I213 ST 09-14-2016 [facility] ELEVATION PHYSICIANS MYOCARDIAL GROUP INFARCTION UNS SITE I739 PERIPHERAL 09-14-2016 [facility] VASCULAR PHYSICIANS DISEASE GROUP UNSPECIFIED N183 CHRONIC 09-14-2016 [facility] KIDNEY PHYSICIANS DISEASE GROUP STAGE 3 MODERATE E1142 TYPE 2 09-13-2016 [facility] P W/DIAB POLYNEUROPA THY I119 HYPERTENSIV 09-13-2016 [facility] HE[facility]YS[facility], DISEASE PLLC WITHOUT HEART FAILURE I129 HYPERTENSIV 09-13-2016 [facility] CKD [facility] W/STAGE 1-4 INC CKD OR UNS CKD B89366 ASHD LAC [place] 09-13-2016 [facility] COR ART [facility] W/UNSTABLE INC ANGINA PECTORIS I5043 ACUTE ON 09-13-2016 [facility] P SYSTOLIC & DIASTOLIC CHF I773 ARTERIAL 09-13-2016 [facility] FIBROMUSCUL [facility] AR INC DYSPLASIA R0602 SHORTNESS 09-13-2016 [facility] OF BREATH PHYSICIANS GROUP R0689 OTHER 09-13-2016 [facility] AMBULANCE ES OF SERVICE BREATHING Z794 JAIL 09-13-2016 [facility] CURRENT USE [facility] OF INSULIN INC E039 HYPOTHYROID 06-09-2016 [facility] ISM [facility] UNSPECIFIED INC E118 TYPE 2 06-09-2016 [facility] DIABETES [facility] MELLITUS INC W/UNS COMPLICATIO NS E119 TYPE 2 03-21-2016 [facility] MELLITUS FOUNDATION WITHOUT COMPLICATIO NS M810 AGE-RELATED 03-21-2016 [facility] SERV OSTEOPOROSI FOUNDATION S W/O CURRNT PATH FX N184 CHRONIC 03-21-2016 [place] [facility] DISEASE FOUNDATION STAGE 4 SEVERE N250 RENAL 03-21-2016 [place] [facility] OSTEODYSTRO SERV PHY FOUNDATION N390 URINARY 03-18-2016 [facility] INFECTION LA SITE NOT SPECIFIED R67081 TYPE 2 02-28-2016 [facility]ETES [facility] MELLITUS [facility] P W/HYPOGLYCE VICTORIANO W/O COMA E162 HYPOGLYCEMI 02-28-2016 [facility] A [facility]ICIANS, UNSPECIFIED PLLC E876 HYPOKALEMIA 02-28-2016 [facility] INC I10 ESSENTIAL 02-28-2016 [facility] HYPERTENSIO [facility] P N I5032 CHRONIC 02-28-2016 [facility] P HEART FAILURE R410 DISORIENTAT 02-28-2016 [facility]BULANCE UNSPECIFIED SERVICE Z591 INADEQUATE 02-28-2016 [facility] HOSP INC T29950 OTHER LONG 02-28-2016 [facility] TERM [facility] CURRENT INC DRUG THERAPY G4733 OBSTRUCTIVE 02-15-2016 [facility] SLEEP HOME APNEA ADULT MEDICAL PEDIATRIC EQUIPME L70547P MX FX 02-15-2016 [facility] PELVIS [facility] HOME DISRUPT MEDICAL PELV RING EQUIPME INIT CHANDRIKA FX I8310 VARICOSE 09-17-2015 [facility] UNS VALLEY LOWER INTERNAL EXTREM MEDI W/INFLAMMAT ION M129 ARTHROPATHY 09-17-2015 [facility] UNSPECIFIED INTERNAL MEDI Z9111 PATIENTS 09-07-2015 [facility] NONCOMPLIAN VALLEY CE WITH INTERNAL DIETARY MEDI REGIMEN N189 CHRONIC 09-05-2015 [facility] KIDNEY PHYSICIANS, DISEASE PLLC UNSPECIFIED R1110 VOMITING 09-05-2015 [facility] R404 TRANSIENT 09-05-2015 [facility] AL[facility]ATION [facility]ICAL OF IMAGING ASS AWARENESS R4182 ALTERED 09-05-2015 [facility] MENTAL PHYSICIANS, STATUS PLLC UNSPECIFIED R464 SLOWNESS 09-05-2015 [facility] RESPONSIVEN SERVICE ESS V63457 CELLULITIS 08-16-2015 [facility] OF RIGHT VALLEY LOWER LIMB INTERNAL MED U09308 CELLULITIS 08-16-2015 [facility] OF LEFT VALLEY LOWER LIMB INTERNAL MED E1021 TYPE 1 08-10-2015 [facility] DIABETES [facility] MELLITUS INC W/DIABETIC NEPHROPATHY E1065 TYPE 1 08-10-2015 [facility] DIABETES [facility] MELLITUS INC WITH HYPERGLYCEM IA E138 OTH SPEC 08-10-2015 [facility] DIABETES PHYSICIANS, MELLITUS PLLC W/UNS COMPLICATIO NS T96453 CELLULITIS 08-10-2015 [facility] OF PHYSICIANS, UNSPECIFIED PLLC PART OF LIMB R739 HYPERGLYCEM 08-10-2015 [facility] [place] [facility]ANCE UNSPECIFIED SERVICE L853 XEROSIS 08-09-2015 [facility] CUTIS VALLEY INTERNAL MED E6601 MORBID 08-05-2015 [facility] SEVERE VALLEY OBESITY DUE INTERNAL TO EXCESS MEDI CALORIES I270 PRIMARY 07-20-2015 [facility] PULMONARY [facility] HYPERTENSIO CAMPUS N I5030 UNSPECIFIED 07-20-2015 [facility] CONGESTIVE [place] HEART FAILURE R0600 DYSPNEA 07-20-2015 [facility] M542 CERVICALGIA 07-12-2015 [facility] M546 PAIN IN 07-12-2015 [facility] THORACIC MOBILEX SPINE I509 HEART 07-11-2015 [facility] FAILURE VALLEY UNSPECIFIED INTERNAL MED I8311 VARICOSE 07-11-2015 [facility] RT SANBORN LOWER INTERNAL EXTREMITY MED W/INFLAMMAT ION M4003 POSTURAL 07-11-2015 [facility] KYPHOSIS SANBORN CERVICOTHOR INTERNAL ACIC REGION MED R05 COUGH 06-05-2015 [facility] R600 LOCALIZED 05-09-2015 [facility] LAR [facility]SULT[facility] O I348 OTHER 05-05-2015 [place] MEDICAL NONRHEUMATI SERV C MITRAL FOUNDATION VALVE DISORDERS I361 NONRHEUMATI 05-05-2015 [place] [facility] C TRICUSPID SERV VALVE FOUNDATION INSUFFICIEN CY I371 NONRHEUMATI 05-05-2015 [place] [facility] C PULMONARY SERV VALVE FOUNDATION INSUFFICIEN [...] INC ADULT N3020 OTHER 04-28-2015 [facility] CHRONIC [facility] WITHOUT HEMATURIA J209 ACUTE 03-31-2015 [facility] BRONCHITIS [facility] UNSPECIFIED INC D08866 PERSONAL 03-31-2015 [facility] HISTORY OF [facility] NICOTINE INC DEPENDENCE A499 BACTERIAL 03-23-2015 [place] [facility]ICAL INFECTION SERV UNSPECIFIED FOUNDATION R279 UNSPECIFIED 03-19-2015 [facility] LACK OF MEM HOS[facility] COORDINATIO INC N Z5189 ENCOUNTER 03-19-2015 [facility] FOR OTHER MEM [facility] SPECIFIED INC AFTERCARE 68087 DIAB W/O 03-17-2015 [facility] COMP TYPE I HOME [JUV] NOT MEDICAL STATED EQUIPME UNCNTRL 43308 OBSTRUCTIVE 03-17-2015 [facility] SLEEP HOME APNEA MEDICAL EQUIPME 60873 MULTIPLE 03-17-2015 [facility] CLOSED HOME PELVIC FX MEDICAL DISRUPT EQUIPME PELVIC [place] 2449 UNSPECIFIED 03-10-2015 [facility] HYPOTHYROID INC ISM 39966 DIAB W/O 03-10-2015 [facility] COMP TYPE [facility] II/UNS NOT INC STATED UNCNTRL 5854 CHRONIC 03-10-2015 [facility] DISEASE INC STAGE IV (SEVERE) 5990 URINARY 03-10-2015 [facility] TRACT [facility] INFECTION INC SITE NOT SPECIFIED 33773 UNSPECIFIED 03-10-2015 [facility] OSTEOPOROSI INC S 4019 UNSPECIFIED 03-02-2015 [facility] ESSENTIAL VALLEY HYPERTENSIO INTERNAL N MEDI 4541 VARICOSE 03-02-2015 [facility] LOWER VALLEY INTERNAL EXTREMITIES MEDI W/INFLAMMAT ION 57072 UNSPECIFIED 03-02-2015 [place] [place] CONSTIPATIO INTERNAL N MEDI 5939 UNSPECIFIED 03-02-2015 [facility] DISORDER VALLEY OF KIDNEY INTERNAL AND URETER MEDI 7823 EDEMA 03-02-2015 [facility] [place] INTERNAL MEDI 15433 UNSPECIFIED 03-02-2015 [facility] RETENTION VAL[place] OF URINE INTERNAL MEDI 00648 UNSPECIFIED 02-24-2015 [facility] ARTHROPATHY [facility] P MULTIPLE SITES 7813 LACK OF 02-24-2015 [facility] P V571 OTHER 02-24-2015 [facility] PHYSICAL [facility] THERAPY INC 5952 OTHER 02-03-2015 [facility] CYSTITIS [facility] P 2761 HYPOSMOLALI 01-17-2015 [facility] TY AND/OR HEALTH HYPONATREMI CAMPUS A 64611 LEUKOCYTOSI 01-17-2015 [facility] S HEALTH UNSPECIFIED CAMPUS 5849 ACUTE 01-17-2015 [facility] KIDNEY HEALTH FAILURE CAMPUS UNSPECIFIED 7197 DIFFICULTY 01-17-2015 [facility] IN WALKING HEALTH CAMPUS 17106 MUSCLE 01-17-2015 [facility] WEAKNESS HEALTH (GENERALIZE CAMPUS D) 8887 UNSPECIFIED 01-17-2015 [facility] DEBILITY HEALTH CAMPUS 9953 ALLERGY 01-17-2015 [facility] UNSPECIFIED HEALTH NOT CAMPUS ELSEWHERE CLASSIFIED 04861 HTN CKD UNS 12-25-2014 [place] [facility] W/CKD SERV STAGE I FOUNDATION THRU STAGE IV/UNS 515 POSTINFLAMM 12-16-2014 [facility] ATORY [facility] PULMONARY FIBROSIS V5881 FITTING AND 12-16-2014 [facility] ADJUSTMENT [facility]BILEX OF VASCULAR CATHETER 4280 CONGESTIVE 12-09-2014 [facility] HEART [facility] FAILURE UNSPECIFIED 4293 CARDIOMEGAL 12-09-2014 [facility] Y [facility] 1101 DERMATOPHYT 12-04-2014 [facility] OSIS OF E NAIL 83287 DIAB 12-04-2014 [facility] W/PERIPH E CIRC D/O TYPE II/UNS NOT UNCNTRL 4439 UNSPECIFIED 12-04-2014 [facility] PERIPHERAL E VASCULAR DISEASE 9172 FOOT&TOE 12-04-2014 [facility] BLISTER E WITHOUT MENTION OF INFECTION 9243 CONTUSION 12-04-2014 [facility] OF TOE E 44926 ABDOMINAL 11-03-2014 [place] PAIN RIGHT MEDICAL UPPER IMAGING ASS QUADRANT 5533 DIAPHRAGMAT 11-01-2014 [place] KODY W/O MEDICAL MENTION IMAGING ASS OBSTRUCTION /GANGREN 7905 OTHER 11-01-2014 [place] NONSPECIFIC MEDICAL ABNORMAL IMAGING ASS SERUM ENZYME LEVELS 7862 COUGH 10-30-2014 [facility] V5869 LONG-TERM 10-30-2014 [facility] (CURRENT) [facility] USE OF INC OTHER MEDICATIONS 56459 UNSPECIFIED 10-28-2014 [facility] OTALGIA [facility] 7224 DEGENERATIO 10-28-2014 [place] N OF MEDICAL CERVICAL IMAGING ASS INTERVERTEB RAL DISC 7231 CERVICALGIA 10-28-2014 [facility] 59865 SENILE 06-23-2014 [facility] OSTEOPOROSI [facility] S INC 2689 UNSPECIFIED 05-20-2014 [facility] VITAMIN D [facility] DEFICIENCY INC 2724 OTHER AND 05-20-2014 [facility] UNSPECIFIED [facility] INC HYPERLIPIDE VICTORIANO 64162 OTHER 05-20-2014 [facility] OSTEOPOROSI [facility]OS[facility] S INC 33102 HYPERTENSIV 02-20-2014 [facility] E HEART [facility] DISEASE INC UNSPEC W/HEART FAIL 4660 ACUTE 02-20-2014 [facility] BRONCHITIS [facility] INC 490 BRONCHITIS 02-20-2014 [facility] SPECIFIED PHYS ACUTE OR CHRONIC 35768 SWELLING OF 02-20-2014 [facility] N [facility]ER[facility]Y PHYS 5853 CHRONIC 11-18-2013 [place] [facility] DISEASE FOUNDATIO STAGE III (MODERATE) 586 UNSPECIFIED 10-29-2013 [facility] RENAL [facility]YSIC[facility] FAILURE [place] 7262 OTHER 05-30-2013 [facility] AFFECTIONS PHYSICIANS OF SHOULDER GROUP REGION NEC 35206 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-2013 [facility] 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 86874 DISORDER OF 05-21-2013 [place] BONE AND MEDICAL CARTILAGE IMAGING ASS UNSPECIFIED V1559 PERSONAL 05-21-2013 [place] HISTORY OF MEDICAL OTHER IMAGING ASS INJURY V4981 ASYMPTOMATI 05-21-2013 [place] C MEDICAL POSTMENOPAU IMAGING ASS KEELY STATUS 00174 UNSPECIFIED 04-29-2013 [facility]AL [facility] INFECTION SERVICES IN CCE & UNS SITE 4659 ACUTE URIS 04-29-2013 [facility] OF EMERGENCY UNSPECIFIED SERVICES SITE 38246 CRAMP OF 04-05-2013 [facility] LIMB PHYSICIANS LA 7241 PAIN IN 01-16-2013 [facility] SPINE [facility] P 95041 ORTHOPNEA 01-16-2013 [facility] P 92358 OTHER 01-16-2013 [facility] DYSPNEA AND EMERGENCY SERVICES RESPIRATORY ABNORMALITI ES 7265 ENTHESOPATH 10-17-2012 [facility] Y OF HIP [facility] REGION INC 99848 PAIN IN 08-22-2012 [place] JOINT MEDICAL PELVIC IMAGING ASS REGION AND THIGH 2749 GOUT, 07-16-2012 [place] [address] SHORTNESS 05-28-2012 [facility] CARDIOLOGY CLINIC 4240 MITRAL 05-27-2012 [facility] DISORDERS INC 13935 OSTEOARTHRO 05-27-2012 [facility] S UNSPEC [facility] WHETHER INC GEN/LOC UNSPEC SITE 07794 CHEST PAIN 05-27-2012 [place] UNSPECIFIED [facility]ICAL IMAGING ASS 93524 OTHER CHEST 05-27-2012 [facility] P 5859 CHRONIC 12-01-2011 [facility] KIDNEY [facility] DISEASE INC UNSPECIFIED 83563 HYPERSOMNIA 11-15-2011 [facility] WITH SLEEP [place] APNEA UNSPECIFIED 18638 ANEMIA OF 10-30-2011 [facility] P DISEASE 2859 UNSPECIFIED 10-30-2011 [facility] ANEMIA [facility]Y SERVICES 05639 DEGEN 10-30-2011 [place] THORACIC/TH MEDICAL ORACOLUMBAR IMAGING ASS INTERVERTEB RAL DISC 65605 DEGEN 10-30-2011 [place] LUMBAR/LUMB MEDICAL OSACRAL IMAGING ASS INTERVERTEB RAL DISC 7242 LUMBAGO 10-30-2011 [facility] P 7245 UNSPECIFIED 10-30-2011 [facility] BACKACHE EMERG[facility]Y SERVICES 7840 HEADACHE 10-30-2011 [facility] INC 95607 OTHER 10-20-2011 [place] DISEASES OF MEDICAL LUNG NOT IMAGING ASS ELSEWHERE CLASSIFIED 5199 UNSPECIFIED 10-20-2011 [place] DISEASE OF MEDICAL IMAGING ASS RESPIRATORY SYSTEM V5867 LONG-TERM 10-19-2011 [facility] USE OF [facility] P 3559 MONONEURITI 10-14-2011 [facility] S OF HOME UNSPECIFIED MEDICAL SITE EQUIPME 91571 OTHER 10-14-2011 [facility] MALAISE AND HOME FATIGUE MEDICAL EQUIPME 5180 PULMONARY 10-05-2011 [place] COLLAPSE [facility]ICAL IM[facility]ING ASS 96315 OTHER 09-30-2011 [facility] STAPHYLOCOC [facility] CUS INC INFECTION IN CCE & UNS SITE 2768 HYPOPOTASSE 09-30-2011 [facility] VICTORIANO [employer] 2888 OTHER 09-30-2011 [facility] SPECIFIED DISEASE OF ASSOCIATES, WHITE BLOOD PSC CELLS 4599 UNSPECIFIED 09-30-2011 [facility] CIRCULATORY INC SYSTEM DISORDER 486 PNEUMONIA, 09-30-2011 [facility] ORGANISM [facility] UNSPECIFIED INC 39965 OTHER 09-30-2011 [place] SPECIFIED MEDICAL DISORDERS IMAGING ASS OF BLADDER 50004 OSTEOARTHRO 09-30-2011 [place] SIS UNSPEC MEDICAL WHETHER IMAGING ASS GEN/LOC LOWER LEG 77764 EFFUSION OF 09-30-2011 [place] LOWER LEG MEDICAL JOINT IMAGING ASS 7291 UNSPECIFIED 09-30-2011 [facility] MYALGIA [employer] MYOSITIS 7295 PAIN IN 09-30-2011 [facility] SOFT TISSUES OF ASSOCIATES, LIMB PSC 7821 RASH AND 09-14-2011 [facility] OTHER NONSPECIFIC ASSOCIATES, SKIN PSC ERUPTION V770 SCREENING 09-14-2011 [facility] FOR THYROID DISORDER ASSOCIATES, [facility] V7791 SCREENING 09-14-2011 [facility] FOR LIPOID DISORDERS ASSOCIATES, PSC 14311 DIAB 06-24-2011 [facility] MAR W/NEURO MANIFESTS TYPE II/UNS NOT UNCNTRL 7038 OTHER 06-24-2011 [facility] MAR SPECIFIED DISEASE OF NAIL 38522 SECONDARY 03-29-2011 [facility] OSTEOARTHRO CLINIC PSC SIS LOWER LEG 09200 PAIN IN 03-29-2011 [facility] JOINT, [facility] LOWER LEG INC 12883 BACKGROUND 03-25-2011 [facility] RETINOPATHY 74467 NUCLEAR 03-25-2011 [facility] SCLEROSIS VISION 7820 DISTURBANCE 02-09-2011 [facility] OF SKIN [facility] SENSATION INC 2767 HYPERPOTASS 02-07-2011 [facility] EMIA ASSOCIATES 460 ACUTE 02-07-2011 [facility] NASOPHARYNG ASSOCIATES ITIS 6929 CONTACT 01-27-2011 [facility] DERMATITIS& EMERGENCY OTHER SERVICES ECZEMA DUE UNSPEC CAUSE 04428 PAIN IN 12-09-2010 [facility] JOINT, ASSOCIATES MULTIPLE SITES 29562 UNSPEC 10-28-2010 ALLR[facility] JR VENTRAL ELAINE KODY W/O MENTION OBST/GANGRE N 05424 ABDOMINAL 09-21-2010 [facility] PAIN, [facility] GENERALIZED INC 7831 ABNORMAL 08-24-2010 [facility] WEIGHT GAIN PHYSICIANS LA 5110 PLEURISY 07-18-2010 [facility] WITHOUT EMERGENCY MENTION SERVICES EFFUS/[place] [address] PAINFUL 07-18-2010 [place] RESPIRATION [facility]ICAL IMAGING ASS 2721 PURE 07-08-2010 [facility] HYPERGLYCER PHYSICIANS IDEMIA [place] 7944 NONSPECIFIC 07-07-2010 [facility] ABNORM ASSOCIATES RESULTS KIDNEY FUNCTION STUDY 48087 ASTHMA, 06-16-2010 [facility] UNSPECIFIED EMERGENCY , SERVICES UNSPECIFIED STATUS 98896 DIAB 05-21-2010 [facility] LANNY W/OPHTH MANIFESTS TYPE II/UNS NOT UNCNTRL 8250 CLOSED 04-28-2010 [facility] FRACTURE OF [facility] CALCANEUS INC V5416 AFTERCARE 04-28-2010 [place] HEALING MEDICAL TRAUMATIC IMAGING ASS FRACTURE LOWER LEG 8248 UNSPECIFIED 03-31-2010 [place] CLOSED MEDICAL FRACTURE OF IMAGING ASS ANKLE 98779 OTHER ANKLE 03-31-2010 [facility] [employer] STRAIN S INC 9596 INJURY 02-17-2010 [place] OTHER AND MEDICAL UNSPECIFIED IMAGING ASS HIP AND THIGH 9597 INJURY 02-17-2010 [place] OTHER&UNSPE MEDICAL CIFIED KNEE IMAGING ASS LEG ANKLE&FOOT 920 CONTUSION 02-16-2010 [facility] OF FACE EMERGENCY SCALP AND SERVICES NECK EXCEPT EYE 02565 CONTUSION 02-16-2010 [facility] OF HIP [facility] INC E8859 FALL FROM 02-16-2010 [facility] OTHER EMERGENCY SLIPPING SERVICES TRIPPING OR STUMBLING 17611 INSOMNIA 02-04-2010 [facility] UNSPECIFIED ASSOCIATES V0382 NEED PROPH 02-04-2010 [facility] VACCINATION ASSOCIATES AGAINST STREP PNEUMONE 25344 URINARY 11-04-2009 [facility] FREQUENCY ASSOCIATES 2811 OTHER 08-24-2009 [facility] VITAMIN B12 ASSOCIATES DEFICIENCY ANEMIA 514 PULMONARY 08-24-2009 [facility] CONGESTION ASSOCIATES AND HYPOSTASIS E8490 PLACE OF 07-10-2009 [place] OCCURRENCE, MEDICAL HOME IMAGING ASSOCIATES 68084 GEN 04-15-2009 [facility] INVOLVING MULTIPLE SITES 7919 OTHER 03-31-2009 [facility] NONSPECIFIC [facility] FINDING INC EXAMINATION OF URINE 54427 NEPHRITIS&N 03-24-2009 [facility] EPHROPATHY PRIMARY W/OTH CARE CENTER PATHOLOG KIDNEY LES 25528 NOCTURIA 03-11-2009 [facility] 73895 HYPERSOMNIA 02-26-2009 [facility] UNSPECIFIED 51800 DIAB 11-28-2008 [facility] W/OPHMADONNA FLYNN A MANIFESTS TYPE II/UNS TYPE UNCNTRL 4619 ACUTE 06-17-2008 [facility] SINUSITIS, ASSOCIATES UNSPECIFIED 8082 CLOSED 03-18-2008 [facility] FRACTURE OF L REHAB PUBIS ASSOC PSC 7089 UNSPECIFIED 11-17-2007 [facility] URTICARIA ASSOCIATES 6868 OTH SPEC 11-12-2007 [facility] SKIN&SUBCUT PROF SERV TISSUE V642 SURG/OTH 11-11-2007 [facility] PROC NOT [facility] CARRIED OUT INC BECAUSE PTS DECN Immunization Name Date Route CVX Reacti Commen Provid Is Given on t er Refuse d PPSV23 FAMILY No 2009 CARE VACCIN ASSOCI E 2 ATES YRS OR OLDER FOR SUBQ/I M USE Procedures Procedure DOS Code Location Performer Comment SBSQ [address] [facility] 7 PHYSICIAN CARE/DAY S GROUP 25 MINUTES GROUND A[facility]25 [facility] AM[facility] PER SERVICE SERVICE STATUTE MILE AMBULANCE A0429 [facility] SERVICE 7 AMBULANCE AMBULANCE BLS SERVICE SERVICE EMERGENCY TRANSPORT ECG 52958 ZACK BARRETO JR ROUTINE 7 [facility] W/LEAST P 12 LDS I&R ONLY INITIAL 45435 [facility] 7 PHYSICIAN CARE/DAY S GROUP 70 MINUTES FLUOROSCO [id number] [facility] PY LEFT 7 [facility] HEART LOW INC INC OSMOLAR CONTRAST FLUORO [id number] [facility] BILATERAL 7 [facility] RENAL INC INC ART LOW OSMOLAR CONTRST DILAT [id number] [facility] CORONARY 7 [facility] ART 2 ART INC INC 2 RX-[place] DEVC PERQ FLUORO [id number] [facility] MULTI 7 [facility] CORONARY INC INC ARTERIES LOW OSMOLAR CONT MEASUREME [id number] [facility] NT 7 [facility] CARDIAC INC INC SAMPLING PRESS LT HEART PERQ HEMOGLOBI 34278 [facility] N 6 [facility] GLYCOSYLA [place] [address] ZACK [facility]ACK THYROID 6 [facility] STIMULATI INC INC NG HORMONE TSH LIPID 05268 [facility] PANEL 6 [facility] INC INC COMPREHEN 12702 [facility] SIVE 6 [facility] METABOLIC INC INC PANEL COLLECTIO 83761 ZACKSHANDA DIXON N VENOUS 6 [facility] BLOOD INC INC VENIPUNCT URE VOLUME 30024 COMBINED COMBINED MEASUREME 6 PHYSICIAN PHYSICIAN NT TIMED S LA S LA COLLECTIO N EACH RENAL 50578 COMBINED COMBINED FUNCTION 6 PHYSICIAN PHYSICIAN PANEL S LA S LA URNLS DIP 51073 COMBINED COMBINED 6 PHYSICIAN PHYSICIAN STICK/TAB S LA S LA LET REAGENT AUTO MICROSCOP Y 25 17231 COMBINED COMBINED HYDROXY 6 PHYSICIAN PHYSICIAN INCLUDES S LA S LA FRACTIONS IF PERFORMED BLOOD 77842 COMBINED COMBINED COUNT 6 PHYSICIAN PHYSICIAN COMPLETE S LA S LA AUTO&AUTO DIFRNTL WBC CULTURE 87684 COMBINED COMBINED BACTERIAL 6 PHYSICIAN PHYSICIAN S LA S LA QUANTTATI VE COLONY COUNT URINE CULTURE 48295 COMBINED COMBINED BCT 6 PHYSICIAN PHYSICIAN ISOL&PRSM S LA S LA PTV ID ISOLATE EA URINE [facility] A4258 ARRIVA ARRIVA WERED 6 MEDICAL MINE SURVEYOR FOR LANCET 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 A4259 ARRIVA ARRIVA PER BOX 6 MEDICAL MEDICAL OF 100 NORMAL A4256 ARRIVA ARRIVA LOW AND 6 MEDICAL MEDICAL HIGH CALIBRATO R SOLUTION/ CHIPS BLD GLU A4253 ARRIVA ARRIVA TEST/REAG 6 MEDICAL MEDICAL T STRIPS HOME BLD GLU MON-50 COLLECTIO 85599 ZACK DIXON N VENOUS 6 [facility] BLOOD INC INC VENIPUNCT URE BASIC 86323 ZACK DIXON METABOLIC 6 [facility] PANEL INC [facility] G0378 ZACK DIXON OBSERVATI 6 [facility] ON INC INC SERVICE PER HOUR GLUC BLD 51166 ZACK DIXON GLUC MNTR 6 [facility] DEV INC INC CLEARED FDA SPEC HOME USE GLUC BLD 37814 ZACK DIXON GLUC MNTR 6 [facility] DEV INC INC CLEARED FDA SPEC HOME USE BLOOD 22409 ZACK DIXON COUNT 6 [facility] COMPLETE INC INC AUTO&[place] [address] ZACK DIXON TROPONIN 6 [facility] QUANTITAT INC INC MARIBEL CREATINE 32875 ZACK DIXON KINASE 6 [facility] TOTAL INC INC [facility] G0378 ZACK DIXON OBSERVATI 6 [facility] ON INC INC SERVICE PER HOUR URNLS DIP 48320 ZACK DIXON 6 [facility] STICK/TAB INC INC LET REAGENT AUTO MICROSCOP Y CREATINE 63538 ZACK DIXON KINASE MB 6 [facility] FRACTION INC INC ONLY COMPREHEN 54675 ZACK DIXON SIVE 6 [facility] METABOLIC INC INC PANEL AMB A0427 [facility] SERVICE 6 AMBULANCE AMBULANCE ALS SERVICE SERVICE EMERGENCY TRANSPORT LEVEL 1 COLLECTIO 82226 ZACK DIXON N VENOUS 6 [facility] BLOOD INC INC VENIPUNCT URE PRESSURIZ 49472 ZACK DIXON ED/NONPRE 6 [facility] SSURIZED INC INC INHALATIO N TREATMENT GROUND A0425 [facility] MILEAGE 6 AMBULANCE AMBULANCE PER SERVICE SERVICE STATUTE MILE ECG 12310 ZACK MCLEAN ROUTINE 6 [facility] W/LEAST P 12 LDS I&R ONLY ECG 45514 ZACK DIXON ROUTINE 6 [facility] ECG INC INC W/LEAST 12 LDS TRCG ONLY W/O I&R THER 95940 ZACK DIXON PROPH/DX 6 [facility] NJX IV INC INC PUSH SINGLE/1S T SBST/DRUG STANDARD K0001 REID LOMAS 6 HOME HOME R MEDICAL MEDICAL EQUIPME EQUIPME HOS BED E0260 REID MATHEWS SEMI-ELEC 6 HOME HOME W/ANY MEDICAL MEDICAL TYPE SIDE EQUIPME EQUIPME RAIL W/MATTRSS HOS BED E0260 REID MATHEWS SEMI-ELEC 6 HOME HOME W/ANY MEDICAL MEDICAL TYPE SIDE EQUIPME EQUIPME RAIL W/MATTRSS STANDARD K0001 ERID REIDJOHN DELGADILLOCHAI 6 HOME HOME R MEDICAL MEDICAL EQUIPME EQUIPME STANDARD K0001 REID REIDJOHN CHAUDHARII 6 HOME HOME R MEDICAL MEDICAL [...] STRIPS HOME BLD GLU MON-50 STANDARD K0001 REIDJOHN CHAUDHARII 6 HOME HOME R MEDICAL MEDICAL EQUIPME EQUIPME HOS BED E0260 REIDJOHN MATHEWS SEMI-ELEC 6 HOME HOME W/ANY MEDICAL MEDICAL TYPE SIDE EQUIPME EQUIPME RAIL W/MATTRSS HEMOGLOBI 61711 ZACK DIXON N 6 [facility] GLYCOSYLA INC INC AELX A1C BASIC 65831 ZACK DIXON METABOLIC 6 [facility] PANEL INC INC CALCIUM TOTAL LIPID 75949 ZACK DIXON PANEL 6 [facility] INC INC COLLECTIO 33583 ZACK DIXON N VENOUS 6 [facility] BLOOD INC INC VENIPUNCT URE STANDARD K0001 REID MATHEWS WATSONI 6 HOME HOME R MEDICAL MEDICAL EQUIPME EQUIPME HOS BED E0260 REIDJOHN MATHEWS SEMI-ELEC 6 HOME HOME W/ANY MEDICAL MEDICAL TYPE SIDE EQUIPME EQUIPME RAIL W/MATTRSS URNLS DIP 94715 ZACK DIXON 6 [facility] STICK/TAB INC INC LET REAGENT AUTO MICROSCOP Y STANDARD K0001 REID REID WHEELCHAI 6 HOME [...] MEDICAL T STRIPS HOME BLD GLU MON-50 REPL KIM A4233 ARRIVA ARRIVA ALKALINE 6 MEDICAL MEDICAL NOT J CELL [facility] G0378 ZACK DIXON OBSERVATI 6 [facility] ON INC INC SERVICE PER HOUR OBSERVATI 49728 [facility] 6 [facility] CHARMAINE DISCHARGE INTERNAL MEDI MANAGEMEN T GLUC BLD 72817 ZACK DIXON GLUC MNTR 6 [facility] DEV INC INC CLEARED FDA SPEC HOME USE GLUC BLD 83341 ZACK DIXON GLUC MNTR 6 [facility] DEV INC [place] [address] ZACK DIXON TROPONIN 6 [facility] QUANTITAT INC INC MARIBEL BLOOD 81145 ZACK DIXON COUNT 6 [facility] COMPLETE INC INC AUTO&AUTO DIFRNTL WBC COLLECTIO 79862 ZACK DIXON N VENOUS 6 [facility] BLOOD INC INC V[facility]IPUNCT URE HOSPITAL G0378 ZACK DIXON OBSERVATI 6 [facility] ON INC INC SERVICE PER HOUR BASIC 39725 ZACK DIXON METABOLIC 6 [facility] PANEL INC INC CALCIUM TOTAL AMB A0427 [facility] 6 AMBULANCE AMBULANCE ALS SERVICE SERVICE EMERGENCY TRANSPORT LEVEL 1 INJECTION J2405 ZACK DIXON 6 [facility] ONDANSETR INC INC ON HCL PER 1 [facility] G0378 ZACK DIXON OBSERVATI 6 [facility] ON INC INC SERVICE PER HOUR COMPREHEN 20658 ZACK DIXON SIVE 6 [facility] METABOLIC INC INC PANEL CREATINE 40367 ZACK DIXON KINASE MB 6 [facility] FRACTION INC INC ONLY URNLS DIP 73174 ZACK ELLIOTTON 6 [facility] STICK/TAB INC INC LET REAGENT AUTO MICROSCOP Y COLLECTIO 88000 ZACK ZACK N VENOUS 6 [facility] [place] [address] ZACK ELLIOTTON INFUSION 6 [facility] THERAPY/P INC INC ROPHYLAXI S /DX 1ST TO 1 HR THERAPEUT 47346 ZACK DIXON IC 6 [facility] INJECTION INC INC IV PUSH EACH NEW DRUG INITIAL [address] [facility] [place] [address] ON INTERNAL CARE/DAY MED 30 MINUTES GROUND A0425 [facility] AMBULANCE PER SERVICE SERVICE STATUTE MILE RADIOLOGI 31782 ZACK DIXON C 6 [facility] EXAMINATI INC INC ON CHEST SINGLE VIEW FRONTAL ECG 56715 ZACK DIXON ROUTINE 6 [facility] ECG INC INC W/LEAST 12 LDS TRCG ONLY W/O I&[place] [address] ZACK DIXON HEAD/BRAI 6 [facility] N W/O INC INC CONTRAST MATERIAL ECG 85878 ZACK BARRETO JR ROUTINE 6 [facility] W/LEAST P 12 LDS I&R ONLY BLOOD 32652 ZACK DIXON COUNT 6 [facility] COMPLETE INC INC AUTO&[place] [address] ZACK DIXON TROPONIN 6 [facility] QUANTITAT INC INC MARIBEL GLUC BLD 68004 ZACK DIXON GLUC MNTR 6 [facility] DEV INC INC CLEARED FDA SPEC HOME USE CREATINE 71523 ZACK DIXON KINASE 6 [facility] [place] [address] ZACK DIXON LIPASE 6 [place] [address] COMBINED COMBINED MAGNESIUM 6 PHYSICIAN PHYSICIAN S LA S LA CYANOCOBA 54297 COMBINED COMBINED SOHA 6 PHYSICIAN PHYSICIAN VITAMIN S [place] S LA B-12 [place] [address] COMBINED COMBINED PHOSPHORU 6 PHYSICIAN PHYSICIAN S S LA S LA INORGANIC ALBUMIN 76879 COMBINED COMBINED SERUM 6 PHYSICIAN PHYSICIAN PLASMA/WH S LA S LA OLE BLOOD BLOOD 48980 COMBINED COMBINED COUNT 6 PHYSICIAN PHYSICIAN COMPLETE S LA S LA AUTO&[place] [address] COMBINED COMBINED THYROID 6 PHYSICIAN PHYSICIAN STIMULATI [place] [address] COMBINED COMBINED BLOOD/URI 6 PHYSICIAN PHYSICIAN C ACID S LA S LA BASIC 33178 COMBINED COMBINED METABOLIC 6 PHYSICIAN PHYSICIAN PANEL S LA S LA CALCIUM TOTAL STANDARD K0001 REID LOMAS 6 HOME HOME R MEDICAL MEDICAL EQUIPME EQUIPME HOS BED E0260 REID MATHEWS SEMI-ELEC 6 HOME HOME W/ANY MEDICAL MEDICAL TYPE SIDE EQUIPME EQUIPME RAIL W/MATTRSS PHYS G0179 [facility] BESSON RE-CERT 6 [facility] MCR-COVR INTERNAL LIBERTY HL MED SRVC RE-CERT PRD COMPREHEN 35919 ZACK DIXON SIVE 6 [facility] METABOLIC INC INC PANEL URNLS DIP 12753 ZACK DIXON 6 [facility] STICK/TAB INC INC LET REAGENT AUTO MICROSCOP Y GROUND A0425 [facility] MILEAGE 6 AMBULANCE AMBULANCE PER SERVICE SERVICE STATUTE MILE AMBULANCE A0429 [facility] SERVICE 6 AMBULANCE AMBULANCE BLS SERVICE SERVICE EMERGENCY TRANSPORT BLOOD 77329 ZACK DIXON COUNT 6 [facility] COMPLETE INC INC AUTO&AUTO DIFRNTL WBC GLUC BLD 53710 ZACK DIXON GLUC MNTR 6 [facility] DEV INC INC CLEARED FDA SPEC HOME USE SBSQ 96544 [facility] NURSING 6 [facility] TRACY FACIL INTERNAL CARE/DAY MED NEW PROBLEM 25 MIN SBSQ 96523 [facility] CHAPMAN NURSING 6 [facility] HOL FACIL INTERNAL CARE/DAY MEDI MINOR COMPLJ 15 MIN STANDARD K0001 REID CHAUDHARII 6 HOME HOME R MEDICAL MEDICAL EQUIPME EQUIPME HOS BED E0260 REID MATHEWS SEMI-ELEC 6 HOME HOME W/ANY MEDICAL MEDICAL TYPE SIDE EQUIPME EQUIPME RAIL W/MATTRSS RADEX 52376 SYMPHONY SYMPHONY SPINE 6 MOBILEX MOBILEX THORACIC 2 VIEWS RADEX 56954 SYMPHONY SYMPHONY SPINE 6 MOBILEX MOBILEX CERVICAL 2 OR 3 VIEWS SBSQ [address] [place] [address] INTERNAL CARE/DAY MED NEW PROBLEM 25 MIN STANDARD K0001 REID LOMAS 5 HOME HOME R MEDICAL MEDICAL EQUIPME EQUIPME HOS BED E0260 REID MATHEWS SEMI-ELEC 5 HOME HOME W/ANY MEDICAL MEDICAL TYPE SIDE EQUIPME EQUIPME RAIL W/MATTRSS SUSCEPTIB 55470 ZAKC DIXON LTY STDY 5 [facility] ANTIMICRB INC INC IAL MICRO/AGA R DILUTJ NATRIURET 46325 ZACK DIXON IC 5 [facility] PEPTIDE INC INC CULTURE 02860 ZACK DIXON BACTERIAL 5 [facility] INC INC QUANTTATI VE COLONY COUNT URINE BLOOD 87631 ZACK DIXON COUNT 5 [facility] COMPLETE INC INC AUTO&AUTO DIFRNTL WBC AMB A0427 [facility] SERVICE 5 AMBULANCE AMBULANCE ALS SERVICE SERVICE EMERGENCY TRANSPORT LEVEL 1 COMPREHEN 36618 ZACK DIXON SIVE 5 [facility] METABOLIC INC INC PANEL URNLS DIP 71012 ZACK DIXON 5 [facility] STICK/TAB INC INC LET REAGENT AUTO MICROSCOP Y RADIOLOGI 67415 ZACK DIXON C EXAM 5 [facility] CHEST 2 INC INC VIEWS FRONTAL&L ATERAL GROUND A0425 [facility] MILEAGE 5 AMBULANCE AMBULANCE PER SERVICE SERVICE STATUTE MILE PRESSURIZ 89655 ZACK DIXON ED/NONPRE 5 [facility] SSURIZED INC INC INHALATIO N TREATMENT STANDARD K0001 REIDJOHN CHAUDHARIEnma 5 HOME HOME R MEDICAL MEDICAL EQUIPME EQUIPME HOS BED E0260 REID MATHEWS SEMI-ELEC 5 HOME HOME W/ANY MEDICAL MEDICAL TYPE SIDE EQUIPME EQUIPME RAIL W/MATTRSS SBSQ 49185 [facility] 5 CULAR MAT CARE/DAY CONSULTAN 25 TS O MINUTES ECHO 22140 [facility] 5 MEDICAL JUAN J C R-T 2D SERV W/WO FOUNDATIO M-MODE N REC F-UP/LMTD INITIAL 69127 [facility] 5 CULAR MAT CARE/DAY CONSULTAN 70 TS O MINUTES RADIOLOGI 46156 [place] SHERI C EXAM 5 MEDICAL MELIDA CHEST 2 IMAGING VIEWS ASS FRONTAL&L ATERAL STANDARD K0001 REID REIDJOHN CHAUDHARII 5 HOME HOME R MEDICAL MEDICAL EQUIPME EQUIPME HOS BED E0260 REID REID SEMI-ELEC 5 HOME HOME W/ANY MEDICAL MEDICAL TYPE SIDE EQUIPME EQUIPME RAIL W/MATTRSS THERAPEUT 95066 ZACK DIXON IC PX 1/> 5 [facility] AREAS INC INC EACH 15 MIN EXERCISES LANCETS A4259 ARRIVA ARRIVA PER BOX 5 MEDICAL MEDICAL OF 100 BLD GLU A4253 ARRIVA ARRIVA TEST/REAG 5 MEDICAL MEDICAL T STRIPS HOME BLD GLU MON-50 NORMAL A4256 ARRIVA ARRIVA LOW AND 5 MEDICAL MEDICAL HIGH CALIBRATO R SOLUTION/ CHIPS URNLS DIP 33551 ZACK CALDERON 5 [facility] LET RGNT P NON-AUTO W/O MICRSCP THERAPEUT 36364 ZACK DIXON IC PX 1/> 5 [facility] AREAS INC INC EACH 15 MIN EXERCISES STANDARD K0001 REID MATHEWS ELIEELAINEI 5 HOME HOME R MEDICAL MEDICAL EQUIPME EQUIPME HOS BED E0260 REID GLASSRELL SEMI-ELEC 5 HOME HOME W/ANY MEDICAL MEDICAL TYPE SIDE EQUIPME EQUIPME RAIL W/MATTRSS THERAPEUT 61139 ZACK DIXON IC PX 1/> 5 [facility] AREAS INC INC EACH 15 MIN EXERCISES THERAPEUT 85260 ZACK DIXON IC PX 1/> 5 [facility] AREAS INC INC EACH 15 MIN EXERCISES COLLECTIO 15411 ZACK Yoo VENOUS 5 [facility] BLOOD INC INC VENIPUNCT URE RENAL 27169 ZACKSHANDA DIXON FUNCTION 5 [facility] PANEL INC INC URNLS DIP 85342 ZACK DIXON 5 [facility] STICK/TAB INC INC LET REAGENT AUTO MICROSCOP Y SUSCEPTIB 34127 ZACK ZACK LTY STDY 5 [facility] ANTIMICRB INC INC IAL MICRO/AGA R DILUTJ 25 24535 ZACKSHANDA DIXON HYDROXY 5 [facility] INCLUDES INC INC FRACTIONS IF PERFORMED BLOOD 19827 ZACK DIXON COUNT 5 [facility] COMPLETE INC INC AUTO&[place] [address] ZACK DIXON THYROID 5 [facility] STIMULATI INC INC NG HORMONE TSH CULTURE 55243 ZACK DIXON BACTERIAL 5 [facility] INC INC QUANTTATI VE COLONY COUNT URINE CULTURE 08128 ZACK DIXON BCT 5 [facility] ISOL&PRSM INC INC PTV ID ISOLATE EA URINE HEMOGLOBI 00681 ZACK DIXON N 5 [facility] GLYCOSYLA INC INC ALEX A1C THERAPEUT 24303 ZACK DIXON IC PX 1/> 5 [facility] AREAS INC INC EACH 15 MIN EXERCISES THERAPEUT 37615 ZACK DIXON IC PX 1/> 5 [facility] AREAS INC INC EACH 15 MIN EXERCISES THERAPEUT 40290 ZACK DIXON IC PX 1/> 5 [facility] AREAS INC INC EACH 15 MIN EXERCISES THERAPEUT 74824 ZACK DIXON IC PX 1/> 5 [facility] AREAS INC INC EACH 15 MIN EXERCISES PHYSICAL 49105 ZACK DIXON THERAPY 5 [facility] EVALUATIO INC INC N URNLS DIP 98296 ZACK CALDERON 5 [facility] STICK/TAB HOSPITAL LET RGNT P NON-AUTO W/O MICRSCP CULTURE 98348 ZACK DIXON BCT 5 [facility] ISOL&PRSM INC INC PTV ID ISOLATE EA URINE CULTURE 23392 ZACK DIXON BACTERIAL 5 [facility] INC INC QUANTTATI VE COLONY COUNT URINE CATH CLCT P9612 ZACK CALDERON SPECIMEN 5 [facility] PT ALL P PLACES SERVICE SUSCEPTIB 65909 ZACK DIXON LTY STDY 5 [facility] HOS[facility] [...] HOME R MEDICAL MEDICAL EQUIPME EQUIPME ONELIA 65108 ZACK CALDERON POST-VOID 5 [facility] RESIDUAL P URINE&/BL ADDER CAP CULTURE 19604 ZACK DIXON BACTERIAL 5 [facility] INC INC QUANTTATI VE COLONY COUNT URINE CULTURE 78575 ZACK DIXON BCT 5 [facility] ISOL&PRSM INC INC PTV ID ISOLATE EA URINE SUSCEPTIB 63313 ZACK DIXON LTY STDY 5 [facility] ANTIMICRB INC INC IAL MICRO/AGA R DILUTJ RADIOLOGI 39431 SYMPHONY SYMPHONY C 5 MOBILEX MOBILEX EXAMINATI ON CHEST SINGLE VIEW FRONTAL RADIOLOGI 78836 SYMPHONY SYMPHONY C 5 MOBILEX MOBILEX EXAMINATI ON CHEST SINGLE VIEW FRONTAL DEBRIDEME 31843 [facility] NT NAIL 5 ARE ANDREZ ANY METHOD 6/> INITIAL 04143 [facility] NURSING 5 ARE ANDREZ FACILITY CARE/DAY 25 MINUTES SBSQ 44835 [facility] 5 [facility] INTERNAL CARE/DAY MED NEW PROBLEM 25 MIN BASIC 56610 COMBINED COMBINED METABOLIC 5 PHYSICIAN PHYSICIAN PANEL S LA S LA CALCIUM TOTAL BLOOD 63643 COMBINED COMBINED COUNT 5 PHYSICIAN PHYSICIAN COMPLETE S LA S LA AUTO&[place] [address] LIZZ HARPERINEKE ABDOMINAL 5 MEDICAL KAY REAL IMAGING TIME ASS W/[place] [address] [facility]ERI ABDOMEN & 5 MEDICAL MELIDA PELVIS IMAGING W/O ASS CONTRAST MATERIAL RADIOLOGI 52635 [place] RODRIGUEZ ALL C 5 MEDICAL EXAMINATI IMAGING ON CHEST ASS SINGLE VIEW FRONTAL ECG 70174 ZACK MCLEAN ROUTINE 5 [facility] W/LEAST P 12 LDS I&R ONLY CRITICAL 88140 ZACK DIXON CARE 5 [facility] ED P P PATIENT INIT 30-74 MIN RADEX 36322 [place] FRANKY SPINE 5 MEDICAL KAY CERVICAL IMAGING 4 OR 5 ASS VIEWS RADEX 00983 [place] [facility] 5 MEDICAL KAY COMPL IMAGING MINIMUM 3 ASS VIEWS [place] SIDE NORMAL A4256 ARRIVA ARRIVA LOW AND 5 MEDICAL MEDICAL HIGH CALIBRATO R SOLUTION/ CHIPS BLD GLU A4253 ARRIVA ARRIVA TEST/REAG 5 MEDICAL MEDICAL T STRIPS HOME BLD GLU MON-50 LANCETS A4259 ARRIVA ARRIVA PER BOX 5 MEDICAL MEDICAL OF 100 [facility] A4258 ARRIVA ARRIVA WERED 5 MEDICAL MINE SURVEYOR FOR LANCET EACH COMPREHEN 53105 COMBINED COMBINED SIVE 5 PHYSICIAN PHYSICIAN METABOLIC S LA S LA PANEL RENAL 78360 ZACK DIXON FUNCTION 5 [facility] PANEL INC INC COLLECTIO 84211 ZACK DIXON N VENOUS 5 [facility] BLOOD INC INC VENIPUNCT URE THERAPEUT 75415 ZACK DIXON IC 5 [facility] PROPHYLAC INC INC TIC/DX INJECTION SUBQ/IM INJECTION J0897 ZACK DIXON 5 [facility] DENOSUMAB INC INC 1 MG DXA BONE 33403 ZACK DIXON DENSITY 4 [facility] STUDY 1/> INC INC SITES AXIAL SKEL RENAL 92404 ZACK DIXON FUNCTION 4 [facility] PANEL INC INC URNLS DIP 17204 ZACK DIXON 4 [facility] STICK/TAB INC INC LET REAGENT AUTO MICROSCOP Y CREATININ 52903 ZACK DIXON E OTHER 4 [facility] SOURCE INC INC COLLECTIO 63256 ZACK DIXON N VENOUS 4 [facility] BLOOD INC INC VENIPUNCT URE BLOOD 48473 ZACK ZACK COUNT 4 [facility] COMPLETE INC INC AUTO&AUTO DIFRNTL WBC CULTURE 30460 ZACK DIXON BCT 4 [facility] ISOL&PRSM INC INC PTV ID ISOLATE EA URINE CULTURE 28099 ZACK DIXON BACTERIAL 4 [facility] INC INC QUANTTATI VE COLONY COUNT URINE PROTEIN 30460 ZACK DIXON XCPT 4 [facility] REFRACTOM INC INC ETRY SERUM PLASMA/WH L BLD SUSCEPTIB 31607 ZACK DIXON LTY STDY 4 [facility] ANTIMICRB INC INC IAL MICRO/AGA R DILUTJ 25 25682 ZACK ZACK HYDROXY 4 [facility] INCLUDES [place] [address] ZACK DIXON PARATHORM 4 [facility] ONE INC INC COMPREHEN 39901 COMBINED COMBINED SIVE 4 PHYSICIAN PHYSICIAN METABOLIC S LA S LA PANEL COMPREHEN 03440 ZACK ELLIOTTON SIVE 4 [facility] METABOLIC INC INC PANEL CREATINE 27084 ZACK DIXON KINASE MB 4 [facility] FRACTION INC INC ONLY PRESSURIZ 62189 ZACK DIXON ED/NONPRE 4 [facility] SSURIZED INC INC INHALATIO N TREATMENT RADIOLOGI 08827 ZACK DIXON C EXAM 4 [facility] CHEST 2 INC INC VIEWS FRONTAL&L ATERAL CREATINE 18757 ZACK DIXON KINASE 4 [facility] [place] [address] ZACK DIXON TROPONIN 4 [facility] QUANTITAT INC INC MARIBEL URNLS DIP 02955 ZACK DIXON 4 [facility] STICK/TAB INC INC LET REAGENT AUTO MICROSCOP Y BLOOD 53891 ZACK DIXON COUNT 4 [facility] COMPLETE INC INC AUTO&AUTO DIFRNTL WBC BLOOD 07696 ZACK DIXON COUNT 4 [facility] COMPLETE INC INC AUTO&AUTO DIFRNTL WBC 25 06443 AZCK DIXON HYDROXY 4 [facility] INCLUDES INC INC FRACTIONS IF PERFORMED COLLECTIO 91997 ZACK DIXON N VENOUS 4 [facility] BLOOD INC INC VENIPUNCT URE RENAL 36251 ZACK DIXON FUNCTION 4 [facility] PANEL INC INC INJECTION J0897 ZACK DIXON 4 [facility] DENOSUMAB INC INC 1 MG THERAPEUT 94720 ZACK DIXON IC 4 [facility] PROPHYLAC INC INC TIC/DX INJECTION SUBQ/IM BASIC 31812 COMBINED COMBINED METABOLIC 4 PHYSICIAN PHYSICIAN PANEL S LA S LA CALCIUM TOTAL COMPREHEN 48101 COMBINED COMBINED SIVE 4 PHYSICIAN PHYSICIAN METABOLIC S LA S LA PANEL BASIC 51247 ZACK DIXON METABOLIC 4 [facility] PANEL INC INC CALCIUM TOTAL COLLECTIO 68085 ZACK DIXON N VENOUS 4 [facility] BLOOD INC INC VENIPUNCT URE INJECTION J0897 ZACK DIXON 4 [facility] DENOSUMAB INC INC 1 MG THERAPEUT 59117 ZACK DIXON IC 4 [facility] PROPHYLAC INC INC TIC/DX INJECTION SUBQ/IM INJ J0702 [facility] BETAMETHA 3 PHYSICIAN TONI SONE S GROUP ACETATE & PHOSPHATE 3 MG ARTHROCEN 79471 [facility] TESIS 3 PHYSICIAN TONI ASPIR&/IN S GROUP J MAJOR JT/BURSA W/O US INJECTION 00886 [facility] 1 [place] 3 PHYSICIAN PHYSICIAN S GROUP S GROUP SHEATH/LI GAMENT APONEUROS IS DXA BONE 74189 [place] SHERI DENSITY 3 MEDICAL MELIDA STUDY 1/> IMAGING SITES ASS AXIAL SKEL BASIC 90754 COMBINED COMBINED METABOLIC 3 PHYSICIAN PHYSICIAN PANEL S LA S LA CALCIUM TOTAL COLLECTIO 80737 ZACK DIXON N VENOUS 3 [facility] BLOOD INC INC VENIPUNCT URE RENAL 25890 ZACK DIXON FUNCTION 3 [facility] PANEL INC INC URNLS DIP 30497 ZACK DIXON 3 [facility] STICK/TAB INC INC LET REAGENT AUTO MICROSCOP Y 25 37025 ZACK DIXON HYDROXY 3 [facility] INCLUDES INC [place] [address] ZACK DIXON PARATHORM 3 [facility] ONE INC INC BLOOD 41995 ZACK DIXON COUNT 3 [facility] COMPLETE INC INC AUTO&AUTO DIFRNTL WBC ALBUMIN 72879 ZACK DIXON URINE 3 [facility] MICROALBU [place] [address] ZACK DIXON STREPTOCO 3 [facility] CCUS INC INC GROUP A IAADI 93588 ZACK DIXON INFFLUENZ 3 [facility] A A VIRUS INC INC IAADI 56524 ZACK DIXON INFLUENZA 3 [facility] B VIRUS INC INC CUL BACT 87192 ZACK ZACK XCPT 3 [facility] URINE INC INC BLOOD/STO OL AEROBIC ISOL RADIOLOGI 71971 [place] SHERI John EXAM 3 MEDICAL MELIDA CHEST 2 IMAGING VIEWS ASS [place]ONTAL&[place] [address] COMBINED COMBINED BLOOD/URI 3 PHYSICIAN PHYSICIAN C ACID S LA S LA BASIC 06889 COMBINED COMBINED METABOLIC 3 PHYSICIAN PHYSICIAN PANEL S LA S LA CALCIUM TOTAL CREATINE 05195 ZACK DIXON KINASE MB 3 [facility] FRACTION INC INC ONLY COMPREHEN 92417 [facility] D[facility] SIVE 3 [facility] METABOLIC INC INC PANEL RADIOLOGI 29727 [facility] C EXAM 3 [facility] CHEST 2 INC INC VIEWS FRONTAL&L ATERAL RADIOLOGI 05040 [facility] D[facility] C 3 [facility] EXAMINATI INC INC ON CHEST [place] FRONTAL ECG 73219 [facility] ROUTINE 3 [facility] ECG INC INC W/LEAST 12 LDS TRCG ONLY W/O I&R THER 35302 ZACK DIXON PROPH/DX 3 [facility] NJX IV INC INC PUSH SINGLE/1S T SBST/DRUG RHYTHM 36336 ZACK DIXON ECG 1-3 3 [facility] LEADS INC INC TRACING ONLY W/O I&R ECG 68045 EMEKA LIRA ROUTINE 3 EMERGENCY ECG SERVICES W/LEAST 12 LDS I&R ONLY PULMONARY 69027 [facility]ACK DIXON 3 [facility] VENTILATI INC INC ON & PERFUSION IMAGING FIBRIN 76273 ZACK DIXON DGRADJ 3 [facility] PRODUCTS INC INC D-DIMER QUAL/SEMI BARB TECHNETIU A9540 ZACK Flanagan TC-99M 3 [facility] MAA DX INC INC STDY DOSE UP TO 10 MCI CREATINE 09994 [facility] KINASE 3 [facility] TOTAL INC INC BLOOD 82971 [facility] DIXON COUNT 3 [facility] COMPLETE INC INC AUTO&AUTO DIFRNTL WBC TECHNETIU A9567 ZACK Flanagan TC-99M 3 [facility] PENTETATE INC INC DX AEROSOL TO [address] [place] [address] ZACK DIXON TROPONIN 3 [facility] QUANTITAT INC INC MARIBEL BLOOD 84181 ZACK DIXON COUNT 3 [facility] COMPLETE INC INC AUTO&AUTO DIFRNTL WBC RENAL 15640 [facility] FUNCTION 3 [facility] PANEL INC INC COLLECTIO 29292 ZACK DIX[facility] N VENOUS 3 [facility] BLOOD INC INC VENIPUNCT URE INJECTION J0897 [facility]ON [facility] DENOSUMAB INC INC 1 MG THERAPEUT 39051 [facility]ACK DIX[facility] IC 3 [facility] PROPHYLAC INC INC TIC/DX INJECTION SUBQ/IM APPLICATI 74898 [facility] ON [facility] MODALITY INC INC 1/> AREAS HOT/COLD PACKS APPL 78703 [facility]ACK DIXON MODALITY 3 [facility] 1/> AREAS INC INC 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 12374 ZACK DIXNO IC PX 1/> 3 [facility] AREAS INC INC EACH 15 MIN EXERCISES E-STIM G0283 ZACK DIXON 1/> AREAS 3 [facility] OTH THAN INC INC WND CARE PART TX PLAN E-STIM G0283 ZACK DIXON 1/> AREAS 3 [facility] OTH THAN INC INC WND CARE PART TX PLAN THERAPEUT 93785 ZACK DIXON IC PX 1/> 3 [facility] AREAS INC INC EACH 15 MIN EXERCISES APPL 69592 ZACK DIXON MODALITY 3 [facility] 1/> AREAS INC INC 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 APPLICATI 60852 [facility] DIXON ON 3 [facility] MODALITY INC INC 1/> AREAS HOT/COLD PACKS APPLICATI 78178 [facility] D[facility] ON 3 [facility] MODALITY INC INC 1/> AREAS HOT/COLD PACKS APPL 34813 [facility]ACK DIXON MODALITY 3 [facility] 1/> AREAS INC INC 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 01456 ZACK DIXON IC PX 1/> 3 [facility] AREAS INC INC EACH 15 MIN EXERCISES E-STIM G0283 ZACK DIXON 1/> AREAS 3 [facility] OTH THAN INC INC WND CARE PART TX PLAN E-STIM G0283 ZACK DIXON 1/> AREAS 3 [facility] OTH THAN INC INC WND CARE PART TX PLAN THERAPEUT 63632 ZACK DIXON IC PX 1/> 3 [facility] AREAS INC INC EACH 15 MIN EXERCISES APPL 67033 [facility]/> AREAS INC INC 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 APPLICATI 68213 [facility] ON [facility] MODALITY INC INC 1/> AREAS HOT/COLD PACKS THERAPEUT 85019 ZACK DIXON IC PX 1/> 3 [facility] AREAS INC INC EACH 15 MIN EXERCISES E-STIM G0283 ZACK DIXON 1/> AREAS [facility] OTH THAN INC INC WND CARE PART TX PLAN E-STIM G0283 ZACK DIXON 1/> AREAS 3 [facility] OTH THAN INC INC WND CARE PART TX PLAN THERAPEUT 00378 ZACK DIXON IC PX 1/> 3 [facility] AREAS INC INC EACH 15 MIN EXERCISES APPLICATI 11345 [facility] ON 3 [facility] MODALITY INC INC 1/> AREAS HOT/COLD PACKS APPL 27861 [facility] MODALITY [facility]/> AREAS INC INC 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 CULTURE 89840 COMBINED COMBINED BACTERIAL 3 PHYSICIAN PHYSICIAN S LA S LA QUANTTATI VE COLONY COUNT URINE APPL 46475 [facility] MODALITY [facility]/> AREAS INC INC 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 APPLICATI 93372 [facility] ON [facility] MODALITY INC INC 1/> AREAS HOT/COLD PACKS THERAPEUT 43793 ZACK DIXON IC PX 1/> 3 [facility] AREAS INC INC EACH 15 MIN EXERCISES E-STIM G0283 ZACK DIXON 1/> AREAS 3 [facility] OTH THAN INC INC WND CARE PART TX PLAN THERAPEUT 89132 ZACK DIXON IC PX 1/> 3 [facility] AREAS INC INC EACH 15 MIN EXERCISES THERAPEUT 22659 ZACK DIXON IC PX 1/> 3 [facility] AREAS INC INC EACH 15 MIN EXERCISES APPL 20961 [facility] MODALITY 3 [facility]/> AREAS INC INC ULTRASOUN D EA 15 MIN APPL 81639 [facility] MODALITY [facility]/> AREAS INC INC 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 G0283 ZACK DIXON 1/> AREAS [facility] OTH THAN INC INC WND CARE PART TX PLAN E-STIM G0283 ZACK DIXON 1/> AREAS 3 [facility] OTH THAN INC INC WND CARE PART TX PLAN APPL 47673 [facility] MODALITY 3 [facility]/> AREAS INC INC 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 APPLICATI 05411 [facility] ON 3 [facility] MODALITY INC INC 1/> AREAS HOT/COLD PACKS THERAPEUT 83177 ZACK DIXON IC PX 1/> 3 [facility] AREAS INC INC EACH 15 MIN EXERCISES THERAPEUT 35290 ZACK ZACK IC PX 1/> 3 [facility] AREAS INC INC EACH 15 MIN EXERCISES APPL 83623 [facility]ACK DIXON MODALITY 3 [facility] 1/> AREAS INC INC 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 APPLICATI 52310 [facility] ON 3 [facility] MODALITY INC INC 1/> AREAS HOT/COLD PACKS E-STIM G0283 ZACK DIXON 1/> AREAS 3 [facility] OTH THAN INC INC WND CARE PART TX PLAN E-STIM G0283 ZACK DIXON 1/> AREAS 3 [facility] OTH THAN INC INC WND CARE PART TX PLAN APPLICATI 12784 [facility] ON 3 [facility] MODALITY INC INC 1/> AREAS HOT/COLD PACKS APPL 93254 ZACK DIXON MODALITY 3 [facility] 1/> AREAS INC INC 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 APPL 49695 [facility] MODALITY 3 [facility]/> AREAS INC INC ULTRASOUN D EA 15 MIN THERAPEUT 18053 ZACK DIXON IC PX 1/> 3 [facility] AREAS INC INC EACH 15 MIN EXERCISES THERAPEUT 56532 ZACK DIXON IC PX 1/> 3 [facility] AREAS INC INC EACH 15 MIN EXERCISES APPL 91313 [facility]ACK [facility] MODALITY 3 [facility]/> AREAS INC INC ULTRASOUN D EA 15 MIN APPL 19810 [facility] MODALITY 3 [facility]/> AREAS INC INC 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 G0283 [facility]ACK [facility]ON 1/> AREAS 3 [facility] OTH THAN INC INC WND CARE PART TX PLAN E-STIM G0283 ZACK DIXON 1/> AREAS 3 [facility] OTH THAN INC INC WND CARE PART TX PLAN RENAL 95694 [facility] FUNCTION 3 [facility] PANEL INC INC URNLS DIP 18240 [facility]ON [facility] STICK/TAB INC INC [place] [address] [facility] NEPHELOME 3 [facility] TRY EACH INC INC ANALYTE YANELY COLLECTIO 90699 [facility] D[facility] N VENOUS 3 [facility] BLOOD INC INC VENIPUNCT URE APPL 11423 [facility] D[facility] MODALITY [facility]/> AREAS INC INC 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 APPL 77034 [facility] MODALITY 3 [facility]/> AREAS INC INC ULTRASOUN D EA 15 MIN THERAPEUT 35618 ZACK DIXON IC PX 1/> 3 [facility] AREAS INC INC EACH 15 MIN EXERCISES CULTURE 94325 [facility] BACTERIAL 3 [facility] INC INC QUANTTATI VE COLONY COUNT URINE CULTURE 93045 [facility] BCT 3 [facility] ISOL&PRSM INC INC PTV ID ISOLATE EA URINE BLOOD 39950 [facility] COUNT 3 [facility] COMPLETE INC INC AUTO&AUTO DIFRNTL WBC 25 23079 [facility] HYDROXY 3 [facility] INCLUDES [place] [address] ZACK D[facility] PARATHORM 3 [facility] ONE INC INC SUSCEPTIB 25965 [facility] LTY STDY 3 [facility] ANTIMICRB INC INC IAL MICRO/AGA R DILUTJ PROTEIN 12446 [facility] ELECTROPH 3 [facility] ORETIC INC INC FRACTJ&QU ANTJ SERUM THERAPEUT 59460 ZACK DIXON IC PX 1/> 3 [facility] AREAS INC INC EACH 15 MIN EXERCISES APPL 77876 [facility] MODALITY 3 [facility] 1/> AREAS INC INC 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 APPLICATI 42280 [facility] ON 3 [facility] MODALITY INC INC 1/> AREAS HOT/COLD PACKS E-STIM G0283 ZACK DIXON 1/> AREAS 3 [facility] OTH THAN INC INC WND CARE PART TX PLAN E-STIM G0283 ZACK DIXON 1/> AREAS 3 [facility] OTH THAN INC INC WND CARE PART TX PLAN APPLICATI 39056 [facility] ON 3 [facility] MODALITY INC INC 1/> AREAS HOT/COLD PACKS APPL 22366 [facility] MODALITY 3 [facility]/> AREAS INC INC 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 43759 ZACK DIXON IC PX 1/> 3 [facility] AREAS INC INC EACH 15 MIN EXERCISES APPL 03036 [facility]ACK [facility]IX[facility] MODALITY 3 [facility] 1/> AREAS INC INC ULTRASOUN D EA 15 MIN APPL 64139 [facility] MODALITY 3 [facility] 1/> AREAS INC INC ULTRASOUN D EA 15 MIN APPL 19640 [facility] MODALITY 3 [facility]/> AREAS INC INC 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 44282 ZACK DIXON IC PX 1/> 3 [facility] AREAS INC INC EACH 15 MIN EXERCISES E-STIM G0283 [facility]ON 1/> AREAS 3 [facility] OTH THAN INC INC WND CARE PART TX PLAN E-STIM G0283 ZACK DIXON 1/> AREAS 3 [facility] OTH THAN INC INC WND CARE PART TX PLAN THERAPEUT 80725 ZACK DIXON IC PX 1/> 3 [facility] AREAS INC INC EACH 15 MIN EXERCISES APPL 90679 [facility] MODALITY 3 [facility]/> AREAS INC INC ULTRASOUN D EA 15 MIN APPL 15529 [facility] MODALITY 3 [facility] 1/> AREAS INC INC 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 APPLICATI 22498 [facility] ON 3 [facility] MODALITY INC INC 1/> AREAS HOT/COLD PACKS APPL 09030 [facility]ACK [facility] MODALITY 3 [facility] 1/> AREAS INC INC 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 APPL 66443 [facility] MODALITY 3 [facility]/> AREAS INC INC ULTRASOUN D EA 15 MIN THERAPEUT 52984 ZACK [facility]IXON IC PX 1/> 3 [facility] AREAS INC INC EACH 15 MIN EXERCISES BASIC 05881 COMBINED COMBINED METABOLIC 3 PHYSICIAN PHYSICIAN PANEL S LA S LA CALCIUM TOTAL E-STIM G0283 [facility]ON 1/> AREAS 3 [facility] OTH THAN INC INC WND CARE PART TX PLAN THERAPEUT 39858 ZACK DIXON IC PX 1/> 3 [facility] AREAS INC INC EACH 15 MIN EXERCISES APPL 99942 [facility] MODALITY 3 [facility] 1/> AREAS INC INC ULTRASOUN D EA 15 MIN APPL 54019 [facility]IX[facility] MODALITY 3 [facility] 1/> AREAS INC INC 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 APPL 79316 [facility] MODALITY 3 [facility]/> AREAS INC INC 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 APPL 74546 [facility] MODALITY 3 [facility]/> AREAS INC INC ULTRASOUN D EA 15 MIN E-STIM G0283 [facility]ON 1/> AREAS 3 [facility] OTH THAN INC INC WND CARE PART TX PLAN THERAPEUT 97925 ZACK DIXON IC PX 1/> 3 [facility] AREAS INC INC EACH 15 MIN EXERCISES E-STIM G0283 ZACK DIXON 1/> AREAS 3 [facility] OTH THAN INC INC WND CARE PART TX PLAN THERAPEUT 48075 ZACK DIXON IC PX 1/> 3 [facility] AREAS INC INC EACH 15 MIN EXERCISES APPL 91017 [facility]ACK DIXON MODALITY 3 [facility] 1/> AREAS INC INC ULTRASOUN D EA 15 MIN APPLICATI 75027 [facility]IX[facility] ON 3 [facility] MODALITY INC INC 1/> AREAS HOT/COLD PACKS APPL 72685 [facility]ACK DIXON MODALITY 3 [facility] 1/> AREAS INC INC ULTRASOUN D EA 15 MIN THERAPEUT 67375 ZACK DIXON IC PX 1/> 3 [facility] AREAS INC INC EACH 15 MIN EXERCISES E-STIM G0283 ZACK DIXON 1/> AREAS 3 [facility] OTH THAN INC INC WND CARE PART TX PLAN E-STIM G0283 ZACK DIXON 1/> AREAS 3 [facility] OTH THAN INC INC WND CARE PART TX PLAN THERAPEUT 53840 ZACK DIXON IC PX 1/> 3 [facility] AREAS INC INC EACH 15 MIN EXERCISES APPL 34065 ZCAK DIXON MODALITY 3 [facility] 1/> AREAS INC INC 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 68426 ZACK DIXON IC PX 1/> 3 [facility] AREAS INC INC EACH 15 MIN EXERCISES APPLICATI 36458 [facility]ACK [facility]IXON ON 3 [facility] MODALITY INC INC 1/> AREAS HOT/COLD PACKS E-STIM G0283 ZACK DIXON 1/> AREAS 3 [facility] OTH THAN INC INC WND CARE PART TX PLAN E-STIM G0283 ZACK DIXON 1/> AREAS 3 [facility] OTH THAN INC INC WND CARE PART TX PLAN APPL 53028 ZACK DIX[facility] MODALITY 3 [facility] 1/> AREAS INC INC 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 32303 ZACK DIXON IC PX 1/> 3 [facility] AREAS INC INC EACH 15 MIN EXERCISES APPL 54154 ZACK DIXON MODALITY 3 [facility] 1/> AREAS INC INC ULTRASOUN D EA 15 MIN THERAPEUT 59840 ZACK DIXON IC PX 1/> 3 [facility] AREAS INC INC EACH 15 MIN EXERCISES APPL 59563 ZACK DIXON MODALITY 3 [facility] 1/> AREAS INC INC 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 APPLICATI 63984 [facility]IXON ON 3 [facility] MODALITY INC INC 1/> AREAS HOT/COLD PACKS APPL 27642 ZACK DIXON MODALITY 3 [facility] 1[facility] AREAS INC INC ULTRASOUN D EA 15 MIN E-STIM G0283 ZACK DIXON 1/> AREAS 3 [facility] OTH THAN INC INC WND CARE PART TX PLAN E-STIM G0283 ZACK DIXON 1/> AREAS 3 [facility] OTH THAN INC INC WND CARE PART TX PLAN APPL 34439 ZACK DIXON MODALITY 3 [facility] 1/> AREAS INC INC ULTRASOUN D EA 15 MIN APPLICATI 27993 Z[facility]IXON ON 3 [facility] MODALITY INC INC 1/> AREAS HOT/COLD PACKS APPL 57722 [facility] DIX[facility] MODALITY 3 [facility] 1/> AREAS INC INC 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 APPL 25805 [facility]IX[facility] MODALITY 3 [facility] 1/> AREAS INC INC 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 APPLICATI 92590 [facility]ACK [facility]IXON ON 3 [facility] MODALITY INC INC 1/> AREAS HOT/COLD PACKS APPL 06419 ZACK DIXON MODALITY 3 [facility] 1/> AREAS INC INC ULTRASOUN D EA 15 MIN THERAPEUT 76809 ZACK DIXON IC PX 1/> 3 [facility] AREAS INC INC EACH 15 MIN EXERCISES E-STIM G0283 ZACK DIXON 1/> AREAS 3 [facility] OTH THAN INC INC WND CARE PART TX PLAN E-STIM G0283 ZACK DIXON 1/> AREAS 3 [facility] OTH THAN INC INC WND CARE PART TX PLAN THERAPEUT 79431 ZACK DIXON IC PX 1/> 3 [facility] AREAS INC INC EACH 15 MIN EXERCISES APPL 96238 ZACK DIXON MODALITY 3 [facility] 1/> AREAS INC INC ULTRASOUN D EA 15 MIN APPLICATI 10788 ZACK [facility]IXON ON 3 [facility] MODALITY INC INC 1/> AREAS HOT/COLD PACKS APPL 02268 ZACK DIXON MODALITY 3 [facility] 1/> AREAS INC INC 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 APPL 84648 ZACK ELLIOTTON MODALITY 3 [facility] 1/> AREAS INC INC 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 APPLICATI 51939 ZACK DIXON ON 3 [facility] MODALITY INC INC 1/> AREAS HOT/COLD PACKS APPL 83596 ZACK DIXON MODALITY 3 [facility] 1/> AREAS INC INC ULTRASOUN D EA 15 MIN PHYSICAL 82101 ZACK ZACK THERAPY 3 [facility] EVALUATIO INC INC N THERAPEUT 12723 ZACK DIXON IC PX 1/> 3 [facility] AREAS INC INC EACH 15 MIN EXERCISES RADEX HIP 16935 [facility] 3 MEDICAL MELIDA UNILATERA IMAGING L ASS COMPLETE MINIMUM 2 VIEWS BASIC 86684 COMBINED COMBINED METABOLIC 3 PHYSICIAN PHYSICIAN PANEL S [facility] [place] [address] COMBINED COMBINED BLOOD/URI 3 PHYSICIAN PHYSICIAN C ACID [facility] G0378 [facility] OBSERVATI 2 [facility] ON INC INC SERVICE PER HOUR BASIC 74832 ZACK DIXON METABOLIC 2 [facility] PANEL INC INC CALCIUM TOTAL COLLECTIO 14927 ZACK Yoo VENOUS 2 [facility] BLOOD INC INC VENIPUNCT URE BLOOD 21828 ZACK DIXON COUNT 2 [facility] COMPLETE INC INC AUTO&AUTO DIFRNTL WBC GLUC BLD 34044 ZACK DIXON GLUC MNTR 2 [facility] DEV INC INC CLEARED FDA SPEC HOME USE GLUC BLD 65523 ZACK DIXON GLUC MNTR 2 [facility] DEV INC [place] [address] ZACK DIXON TROPONIN 2 [facility] QUANTITAT INC INC MARIBEL TECHNETIU A9567 ZACK Flanagan TC-99M 2 [facility] PENTETATE INC INC DX AEROSOL TO 75 MCI BLOOD 26330 ZACK DIXON COUNT 2 [facility] COMPLETE INC INC AUTO&AUTO DIFRNTL WBC TECHNETIU A9540 ZACK ZACK M TC-99M 2 [facility] MAA DX INC INC STDY DOSE UP TO 10 MCI CREATINE 64175 [facility]ACK DIXON KINASE 2 [facility] TOTAL INC INC PULMONARY 26256 LIZZ WADE 2 MEDICAL MELIDA VENTILATI IMAGING ON & ASS PERFUSION IMAGING NONINVASI 36321 ZACK DIXON VE 2 [facility] EAR/PULSE INC INC OXIMETRY SINGLE DETER ECHO 47332 [facility] TTHRC R-T 2 DINA MORA 2D CARDIOLOG W/WOM-MOD Y CLINIC E COMPL SPEC&COLR D BASIC 98082 [facility]ACK DIXON METABOLIC 2 [facility] PANEL INC INC CALCIUM TOTAL COLLECTIO 90313 ZACK DIXON N VENOUS 2 [facility] BLOOD INC INC VENIPUNCT [facility] G0378 ZACK DIXON OBSERVATI 2 [facility] ON INC INC SERVICE PER HOUR CREATINE 25709 ZACK DIXON KINASE MB 2 [facility] FRACTION INC INC ONLY CREATINE 41744 ZACK DIXON KINASE MB 2 [facility] FRACTION INC INC ONLY URNLS DIP 15286 ZACK DIXON 2 [facility] STICK/TAB INC INC [facility] G0378 ZACK DIXON OBSERVATI 2 [facility] ON INC INC SERVICE PER HOUR BASIC 91574 ZACK DIXON METABOLIC 2 [facility] PANEL INC INC CALCIUM TOTAL ECG 94368 ZACK MCLEAN ROUTINE 2 [facility] W/LEAST P 12 LDS I&R ONLY ECG 47106 ZACK DIXON ROUTINE 2 [facility] ECG INC INC W/LEAST 12 LDS TRCG ONLY W/O I&R RADIOLOGI 47351 ZACK DIXON C EXAM 2 [facility] CHEST 2 INC INC VIEWS FRONTAL&L ATERAL THERAPEUT 65739 ZACK DIXON IC 2 [facility] PROPHYLAC INC INC TIC/DX INJECTION SUBQ/IM CREATINE 11662 [facility] DIXON KINASE 2 [facility] TOTAL INC INC FIBRIN 27567 Z[facility] DIXON DGRADJ 2 [facility] PRODUCTS INC INC D-DIMER QUAL/SEMI BARB BLOOD 11139 ZACK DIXON COUNT 2 [facility] COMPLETE INC INC AUTO&AUTO DIFRNTL WBC CULTURE 14480 ZACK DIXON BACTERIAL 2 [facility] BLOOD INC INC AEROBIC W/[place] [address] ZACK DIXON TROPONIN 2 [facility] QUANTITAT INC INC MARIBEL NATRIURET 67447 ZACK DIXON IC 2 [facility] PEPTIDE INC INC GLUC BLD 84251 ZACK DIXON GLUC MNTR 2 [facility] DEV INC INC CLEARED FDA SPEC HOME USE BLOOD 72603 ZACK DIXON COUNT 2 [facility] COMPLETE INC INC AUTO&AUTO DIFRNTL WBC COLLECTIO 34016 ZACK DIXON N VENOUS 2 [facility] BLOOD INC INC VENIPUNCT URE BASIC 45851 ZACK DIXON METABOLIC 2 [facility] PANEL INC INC CALCIUM TOTAL INJECTION J0897 ZACK DIXON 2 [facility] DENOSUMAB INC INC 1 MG THERAPEUT 30731 ZACK DIXON IC 2 [facility] PROPHYLAC INC INC TIC/DX INJECTION SUBQ/IM COLLECTIO 05524 ZACK DIXON N VENOUS 2 [facility] BLOOD INC INC VENIPUNCT URE DXA BONE 87876 [facility] 2 MEDICAL MELIDA STUDY 1/> IMAGING SITES ASS AXIAL SKEL URNLS DIP 66287 ZACK DIXON 2 [facility] STICK/TAB INC INC LET REAGENT AUTO MICROSCOP Y CREATININ 49038 ZACK DIXON E OTHER 2 [facility] SOURCE INC INC RENAL 93130 ZACK DIXON FUNCTION 2 [facility] PANEL INC INC BLOOD 06738 ZACK DIXON COUNT 2 [facility] COMPLETE INC INC AUTO&AUTO DIFRNTL WBC 25 47540 ZACK DIXON HYDROXY 2 [facility] INCLUDES INC INC FRACTIONS IF PERFORMED PROTEIN 45407 ZACK DIXON XCPT 2 [facility] REFRACTOM INC INC ETRY SER[place] PL[place] [address] ZACK DIXON PARATHORM 2 [facility] ONE INC INC CONTINUOU E0601 REID MATHEWS S 2 HOME HOME POSITIVE MEDICAL MEDICAL AIRWAY EQUIPME EQUIPME PRESSURE DEVICE CONTINUOU E0601 REID MATHEWS S 2 HOME HOME POSITIVE MEDICAL MEDICAL AIRWAY EQUIPME EQUIPME PRESSURE DEVICE TUBING A7037 REID MATHEWS USED WITH 2 HOME HOME POSITIVE MEDICAL MEDICAL AIRWAY EQUIPME EQUIPME PRESSURE DEVICE HUMDIFIR E0562 REID MATHEWS HEATED 2 HOME HOME USED MEDICAL MEDICAL W/POS EQUIPME EQUIPME ARWAY PRESSURE DEVICE NASL A7034 REID MATHEWS INTRFCE 2 HOME HOME POS ARWAY MEDICAL MEDICAL PRSS EQUIPME EQUIPME DEVC W/WO HEAD STRAP HEADGEAR A7035 REID MATHEWS USED 2 HOME HOME W/POSITIV MEDICAL MEDICAL E AIRWAY EQUIPME EQUIPME PRESSURE DEVICE FILTER A7038 REID MATHEWS DISPBL 2 HOME HOME USED MEDICAL MEDICAL W/POS EQUIPME EQUIPME ARWAY PRESSURE DEVICE FILTER A7039 REID MATHEWS NON 2 HOME HOME DISPBL MEDICAL MEDICAL USED EQUIPME EQUIPME W/POS ARWAY PRESS DEVICE CV STRS 49169 ZACK ZAPATA TST 2 [facility] XERS&/OR HOSPITAL RX CONT P ECG I&R ONLY CV STRS 07362 [facility] TST 2 PHYSICIAN XERS&/OR S GROUP RX CONT ECG W/O I&R MYOCARDIA 21652 [facility] SPECT 2 [facility] MULTIPLE CARDIOLOG STUDIES Y CLINIC POLYSOM 49197 ZACK DIXON 6/>YRS 2 [facility] SLEEP INC INC W/CPAP 4/> ADDL HARSHIL ATTND SUSCEPTIB 10237 ZACK DIXON LTY STDY 2 [facility] ANTIMICRB INC INC IAL MICRO/AGA R DILUTJ CULTURE 59005 ZACK DIXON BCT 2 [facility] ISOL&PRSM INC INC PTV ID ISOLATE EA URINE CULTURE 33305 ZACK DIXON BACTERIAL 2 [facility] INC INC QUANTTATI VE COLONY COUNT URINE PROTEIN 01071 ZACK DIXON XCPT 2 [facility] REFRACTOM INC INC ETRY SERUM PLASMA/WH L BLD 25 46291 ZACK DIXON HYDROXY 2 [facility] INCLUDES INC INC FRACTIONS IF PERFORMED BLOOD 57033 ZACK DIXON COUNT 2 [facility] COMPLETE INC INC AUTO&[place] [address] ZACK DIXON PARATHORM 2 [facility] ONE INC INC COLLECTIO 75680 ZACK DIXON N VENOUS 2 [facility] BLOOD INC INC VENIPUNCT URE CREATININ 23999 ZACK DIXON E OTHER 2 [facility] SOURCE INC INC URNLS DIP 98809 ZACK DIXON 2 [facility] STICK/TAB INC INC LET REAGENT AUTO MICROSCOP Y RENAL 00024 ZACK DIXON FUNCTION 2 [facility] PANEL INC INC LANCETS A4259 REID MATHEWS PER BOX 2 HOME HOME OF 100 MEDICAL MEDICAL EQUIPME EQUIPME POLYSOM 43452 ESTIVEN JEAN-BAPTISTE 6/>YRS 2 [facility] SLEEP 4/> ADDL HARSHIL ATTND BLD GLU A4253 REID MATHEWS TEST/REAG 2 HOME HOME T STRIPS MEDICAL MEDICAL HOME BLD EQUIPME EQUIPME GLU MON-50 POLYSOM 49948 ZACK DIXON 6/>YRS 2 [facility] SLEEP 4/> INC INC ADDL HARSHIL ATTND 3D 79855 ZACK DIXON RENDERING 2 [facility] W/INTERP INC INC & POSTPROCE SS SUPERVISI ON RADEX 36394 [facility] SPINE 2 MEDICAL MELIDA THORACIC IMAGING [address] [place] [address] ZACK DIXON HEAD/BRAI 2 [facility] N W/O INC INC CONTRAST MATERIAL RADIOLOGI 60655 ZACK DIXON C 2 [facility] EXAMINATI INC INC ON CHEST SINGLE VIEW FRONTAL ECG 44964 ZACK DIXON ROUTINE 2 [facility] ECG INC INC W/LEAST 12 LDS TRCG ONLY W/O I&R ECG 73540 EMEKA ALFORD ROUTINE 2 EMERGENCY III NANCY ECG SERVICES W/LEAST 12 LDS I&R ONLY RADEX 40201 LIZZ WADE SPINE 2 MEDICAL MELIDA LUMBOSACR IMAGING AL ASS MINIMUM 4 VIEWS CREATINE 33528 ZACK DIXON KINASE MB 2 [facility] FRACTION INC INC ONLY URNLS DIP 24363 ZACK ZACK 2 [facility] STICK/TAB INC INC LET REAGENT AUTO MICROSCOP Y BASIC 08081 ZACK DIXON METABOLIC 2 [facility] PANEL INC INC CALCIUM TOTAL CREATINE 80781 ZACK D[facility] KINASE 2 [facility] TOTAL INC INC BLOOD 66800 [facility] COUNT 2 [facility] COMPLETE INC INC AUTO&[place] [address] [facility] TROPONIN 2 [facility] QUANTITAT INC INC MARIBEL IRON 43705 ZACK DIXON BINDING 2 [facility] [place] [address] ZACK DIXON IRON 2 [place] [address] [facility] FOLIC 2 [facility] ACID INC INC SERUM 25 58901 ZACK DIX[facility] HYDROXY 2 [facility] INCLUDES [place] [address] ZACK DIXON PARATHORM 2 [facility] ONE INC INC CYANOCOBA 84953 ZACK DIXON SOHA 2 [facility] VITAMIN INC INC B-[address] [place] [address] [facility]ACK DIXON FERRITIN 2 [place] [address] ZACK DIXON PHOSPHORU 2 [facility] [place] [address] ZACK DIXON BLOOD/URI 2 [facility] C ACID INC INC BASIC 55074 ZACK DIXON METABOLIC 2 [facility] PANEL INC INC CALCIUM TOTAL RADIOLOGI 65155 LIZZ WADE C EXAM 2 MEDICAL MELIDA SKULL IMAGING COMPLETE ASS MINIMUM 4 VIEWS RADEX 62903 ZACK DIXON SPINE 2 [facility] CERVICAL INC INC 6 OR MORE VIEWS IRRIGAJ 41011 ZACK DIXON IMPLNTD 2 [facility] VENOUS INC INC ACCESS DRUG DELIVERY SYST GLUC BLD 13717 ZACK ZACK GLUC MNTR 2 [facility] DEV INC INC CLEARED FDA SPEC HOME USE GLUC BLD 14503 ZACKSHANDA DIXON GLUC MNTR 2 [facility] DEV INC INC CLEARED FDA SPEC HOME USE BLOOD 93232 ZACK DIXON COUNT 2 [facility] COMPLETE INC INC AUTO&AUTO DIFRNTL WBC NONINVASI 98981 ZACK DIXON VE 2 [facility] EAR/PULSE INC INC OXIMETRY SINGLE DETER BASIC 75460 ZACK DIXON METABOLIC 2 [facility] PANEL INC INC CAL[facility]UM [facility] G0378 ZACK DIXON OBSERVATI 2 [facility] ON INC INC SERVICE PER HOUR [facility] G0378 ZACK DIXON OBSERVATI 2 [facility] ON INC INC SERVICE PER HOUR TECHNETIU A9567 ZACK DIXON M TC-99M 2 [facility] PENTETATE INC INC DX AEROSOL TO 75 MCI CREATINE 90711 ZACK DIXON KINASE MB 2 [facility] FRACTION INC INC ONLY BASIC 70805 ZACK DIXON METABOLIC 2 [facility] PANEL INC INC CALCIUM TOTAL NONINVASI 45416 ZACK DIXON VE 2 [facility] EAR/PULSE INC INC OXIMETRY SINGLE DETER INITIAL 26035 [facility] 2 PHYSICIAN CARE/DAY S GROUP 50 MINUTES PULMONARY 46804 [facility] VENTILATI IMAGING ON & ASS PERFUSION IMAGING RADIOLOGI 97836 [facility] W[facility] C EXAM 2 [facility]ICAL [facility] CHEST 2 IMAGING VIEWS ASS FRONTAL&L ATERAL ECG 25513 ZACK DIXON ROUTINE 2 [facility] ECG INC INC W/LEAST 12 LDS TRCG ONLY W/O I&R ECG 69602 ZACK MCLEAN ROUTINE 2 [facility] W/LEAST P 12 LDS I&R ONLY ECHO [address] [facility] 2 DINA M[facility] 2D CARDIOLOG W/WOM-MOD Y CLINIC E COMPL SPEC&COLR D BLOOD 82534 ZACK ZACK COUNT 2 [facility] COMPLETE INC INC AUTO&AUTO DIFRNTL WBC GLUC BLD 27024 ZACK DIXON GLUC MNTR 2 [facility] DEV INC [place] [address] ZACK ZACK TROPONIN 2 [facility] QUANTITAT INC INC MARIBEL TECHNETIU A9540 ZACK DIXON M TC-99M 2 [facility] [facility] MAA DX INC INC STDY DOSE UP TO 10 MCI CREATINE 15838 [facility] KINASE 2 [facility] TOTAL INC INC CREATINE 74139 ZACK DIXON KINASE 2 [facility] TOTAL INC INC SUSCEPTIB 41562 ZACK DIXON LTY STDY 2 [facility] ANTIMICRB INC INC IAL MICRO/AGA R DILUTJ FIBRIN 00637 ZACK ELLIOTTON DGRADJ 2 [facility] PRODUCTS INC INC D-DIMER QUAL/[place] [address] ZACK DIXON TROPONIN 2 [facility] QUANTITAT INC INC MARIBEL NATRIURET 43171 ZACK DIXON IC 2 [facility] PEPTIDE INC INC CULTURE 09377 [facility]ACK DIXON BCT 2 [facility] ISOL&PRSM INC INC PTV ID ISOLATE EA URINE BLOOD 15033 ZACK DIXON COUNT 2 [facility] COMPLETE INC INC AUTO&AUTO DIFRNTL WBC CULTURE 69149 ZACK DIXON BACTERIAL 2 [facility] BLOOD INC INC AEROBIC W/ID ISOLATES ECG 12996 EMEKA WILCOX ROUTINE 2 EMERGENCY [facility] ECG SERVICES W/LEAST 12 LDS I&R ONLY ECG 90206 ZACK DIXON ROUTINE 2 [facility] ECG INC INC W/LEAST 12 LDS TRCG ONLY W/O I&R RADIOLOGI 32430 LIZZ Lopez 2 MEDICAL MELIDA EXAMINATI IMAGING ON CHEST ASS SINGLE VIEW FRONTAL THERAPEUT 97289 ZACK DIXON IC 2 [facility] PROPHYLAC INC INC TIC/DX INJECTION SUBQ/IM CREATINE 62450 ZACK DIXON KINASE MB 2 [facility] FRACTION INC INC ONLY COMPREHEN 34040 ZACK DIXON SIVE 2 [facility] METABOLIC INC INC PANEL URNLS DIP 48964 ZACK DIXON 2 [facility] STICK/TAB INC INC LET REAGENT AUTO MICROSCOP Y CULTURE 04538 ZACK DIXON BACTERIAL 2 [facility] INC INC QUANTTATI VE COLONY COUNT URINE LANCETS A4259 REID MATHEWS PER BOX 2 HOME HOME OF 100 MEDICAL MEDICAL EQUIPME EQUIPME BLD GLU A4253 REID MATHEWS TEST/REAG 2 HOME HOME T STRIPS MEDICAL MEDICAL HOME BLD EQUIPME EQUIPME GLU MON-50 HOME E0607 REID MATHEWS BLOOD 2 HOME HOME GLUCOSE MEDICAL MEDICAL MONITOR EQUIPME EQUIPME WALKER E0135 REID REID FOLDING 2 HOME HOME ADJUSTABL MEDICAL MEDICAL E OR EQUIPME EQUIPME FIXED HEIGHT VENOUS 3893 ZACK DIXON CATHETERI 2 [facility] ZATION INC INC NOT ELSEWHERE CLASSIFIE D RADIOLOGI 10505 [place] SH[place]I C 2 MEDICAL MELIDA EXAMINATI IMAGING ON CHEST ASS SINGLE VIEW FRONTAL RADIOLOGI 05869 [place] SH[place]I C EXAM 2 MEDICAL MELIDA CHEST 2 IMAGING VIEWS ASS FRONTAL&L ATERAL RADIOLOGI 89998 [place] SH[place]I C EXAM 2 MEDICAL MELIDA CHEST 2 IMAGING VIEWS ASS FRONTAL&L ATERAL RADIOLOGI 70323 [place] SH[place]I C 2 MEDICAL MELIDA EXAMINATI IMAGING ON KNEE 3 ASS VIEWS HANDLG&/O 79665 FAMILY POLAL R CONVEY 2 CARE CRI OF SPEC ASSOCIATE FOR TR S, [facility] [place] [address] [place] RETROPERI 2 MEDICAL MELIDA TONEAL IMAGING REAL TIME ASS W/IMAGE COMPLETE COLLECTIO 25439 FAMILY POLAL N VENOUS 2 CARE CRI BLOOD ASSOCIATE VENIPUNCT S, [facility] URE ANTINUCLE 18846 LAB ZOEY LAB ZOEY AR 2 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 YUNG RHEUMATOI 45460 COMBINED COMBINED D FACTOR 2 PHYSICIAN PHYSIC[place] [address] COMBINED COMBINED BLOOD/URI 2 PHYSICIAN PHYSICIAN C ACID S LA S LA COMPREHEN 67686 COMBINED COMBINED SIVE 2 PHYSICIAN PHYSICIAN METABOLIC S LA S LA PANEL SEDIMENTA 46685 COMBINED COMBINED TION RATE 2 PHYSICIAN PHYSICIAN RBC S LA S LA NON-AUTOM ATED CYANOCOBA 56260 COMBINED COMBINED SOHA 2 PHYSICIAN PHYSICIAN VITAMIN S LA S LA B-12 BLOOD 92313 FAMILY STRAWZELL COUNT 2 CARE CRI COMPLETE ASSOCIATE AUTO&AUTO S, [place] [address] COMBINED COMBINED THYROID 2 PHYSICIAN PHYSICIAN STIMULATI S LA S LA NG HORMONE TSH 25 86522 COMBINED COMBINED HYDROXY 2 PHYSICIAN PHYSICIAN INCLUDES S LA S LA FRACTIONS IF PERFORMED HEMOGLOBI 47153 FAMILY STRAWZELL N 2 CARE CRI GLYCOSYLA ASSOCIATE ALEX A1C S, PSC COMPREHEN 13233 COMBINED COMBINED SIVE 2 PHYSICIAN PHYSICIAN METABOLIC S LA S LA PANEL LIPID 20515 FAMILY STRAWZELL PANEL 2 CARE CRI ASSOCIATE S, PSC COLLECTIO 00500 FAMILY STRAWZELL N VENOUS 2 CARE CRI BLOOD ASSOCIATE VENIPUNCT S, PSC URE HANDLG&/O 68141 FAMILY STRAWZELL R CONVEY 2 CARE CRI OF SPEC ASSOCIATE FOR TR S, PSC OFFICE TO LAB DUP-SCAN 47808 ZACK DIXON XTR VEINS 2 [facility] INC INC UNILATERA L/LIMITED STUDY RADIOLOGI 63236 ZACK DIXON C EXAM 2 [facility] CHEST 2 INC INC VIEWS FRONTAL&L ATERAL COLLECTIO 81946 ZACK DIXON N VENOUS 2 [facility] BLOOD INC INC VENIPUNCT URE RENAL 42846 ZACK DIXON FUNCTION 2 [facility] PANEL INC INC URNLS DIP 81396 ZACK DIXON 2 [facility] STICK/TAB INC INC LET REAGENT AUTO MICROSCOP Y HEPATIC 99245 ZACK DIXON FUNCTION 2 [facility] PANEL INC INC BLOOD 13627 ZACK DIXON COUNT 2 [facility] COMPLETE INC INC AUTO&AUTO DIFRNTL WBC DEBRIDEME 17923 PAWSAT PAWSAT NT NAIL 2 MAR MAR ANY METHOD 1-5 THERAPEUT 77134 ZACK DIXON IC 1 [facility] PROPHYLAC INC INC TIC/DX INJECTION SUBQ/IM COLLECTIO 87465 ZACK DIXON N VENOUS 1 [facility] BLOOD INC INC VENIPUNCT URE BASIC 90990 ZACK DIXON METABOLIC 1 [facility] PANEL INC INC CALCIUM TOTAL BASIC 35583 ZACK ZACK METABOLIC 1 [facility] PANEL INC INC CALCIUM TOTAL COLLECTIO 64460 ZACK DIXON N VENOUS 1 [facility] BLOOD INC INC VENIPUNCT URE THERAPEUT 07016 ZACK DIXON IC 1 [facility] PROPHYLAC INC INC TIC/DX INJECTION SUBQ/IM COLLECTIO 19074 ZACK DIXON N VENOUS 1 [facility] BLOOD INC INC VENIPUNCT URE URNLS DIP 03027 ZACKSHANDA DIXON 1 [facility] STICK/TAB INC INC LET REAGENT AUTO MICROSCOP Y CREATININ 71360 ZACK ZACK E OTHER 1 [facility] SOURCE INC INC RENAL 13738 ZACKSHANDA DIXON FUNCTION 1 [facility] PANEL INC INC BLOOD 92220 ZACK DIXON COUNT 1 [facility] COMPLETE INC INC AUTO&AUTO DIFRNTL WBC 25 25195 ZACK DIXON HYDROXY 1 [facility] INCLUDES INC INC FRACTIONS IF PERFORMED PROTEIN 16362 ZACK DIXON XCPT 1 [facility] REFRACTOM INC INC ETRY SERUM [place] [address] ZACK DIXON PARATHORM 1 [facility] ONE INC INC PROTEIN 93471 ZACK DIXON ELECTROPH 1 [facility] ORETIC INC INC FRACTJ&QU ANTJ SERUM COLLECTIO 44272 ZACK DIXON N VENOUS 1 [facility] BLOOD INC INC VENIPUNCT URE BASIC 06029 ZACK DIXON METABOLIC 1 [facility] PANEL INC INC CALCIUM TOTAL ARTHROCEN 54469 [place] TESIS 1 [place] [facility]/IN CLIN[facility] J MAJOR PSC JT/BURSA W/O US RADIOLOGI 79352 ZACKSHANDA DIXON C EXAM 1 [facility] BOTH INC INC KNEES STANDING ANTEROPOS T INJECTION J1030 [place] [facility] DNISOLONE PSC ACET[place] [address] [place] [address] ZACK DIXON RETROPERI 1 [facility] TONEAL INC INC REAL TIME W/IMAGE COMPLETE DXA BONE 49661 ZACK DIXON DENSITY 1 [facility] STUDY 1/ INC INC SITES AXIAL SKEL OPHTH 94586 ARYAN PETERS [facility] 1 VISION XM&EVAL COMPRHNSV ESTAB PT 1/> NON-INVAS 73851 [facility] WADE MARIBEL 1 MEDICAL MELIDA PHYSIOLOG IMAGING IC STUDY ASS EXTREMITY 3 LEVLS BASIC 98714 COMBINED COMBINED METABOLIC 1 PHYSICIAN PHYSICIAN [place] [address] COMBINED COMBINED PHOSPHORU 1 PHYSICIAN [place] [address] COMBINED COMBINED PARATHORM 1 PHYSICIAN PHYSICIAN ONE S LA S LA 25 25397 COMBINED COMBINED HYDROXY 1 PHYSICIAN PHYSICIAN INCLUDES S LA S LA FRACTIONS IF PERFORMED LANCETS A4259 REID MATHEWS PER BOX 1 HOME MED HOME MED OF 100 EQUIP. L EQUIP. L BLD GLU A4253 REID MATHEWS TEST/REAG 1 HOME MED HOME MED T STRIPS EQUIP. L EQUIP. L HOME BLD GLU MON-50 3D 13654 [facility] BRIANSHERI RENDERING 1 MEDICAL MELIDA IMAGING W/INTERP& [place] [address] [facility] WADE ABDOMEN 1 MEDICAL MELIDA W/O IMAGING CONTRAST ASS MATERIAL COLLECTIO 89700 ZACK DIXON N VENOUS 1 [facility] [place] [address] ZACK ZACK UREA 1 [facility] NITROGEN INC INC QUANTITAT MARIBEL CREATININ 96372 ZACK DIXON E BLOOD 1 [facility] INC INC TECHNETIU A9537 ZACK Flanagan TC-99M 1 [facility] MEBROFENI INC INC N DX UP TO 15 MCI HEPATBL 68575 [place] DUX SYS 1 MEDICAL [place] [address] [place] ABDOMINAL 1 MEDICAL MELIDA REAL IMAGING TIME ASS W/IMAGE LIMITED COLLECTIO 76156 COMBINED COMBINED N VENOUS 1 PHYSICIAN PHYSICIAN BLOOD S LA S LA VENIPUNCT URE COMPREHEN 12009 COMBINED COMBINED SIVE 1 PHYSICIAN PHYSICIAN METABOLIC S LA S LA PANEL COMPREHEN 45569 COMBINED COMBINED SIVE 1 PHYSICIAN PHYSICIAN [place] [address] COMBINED COMBINED AMYLASE 1 PHYSICIAN PHYSICIAN S LA S LA COLLECTIO 80640 FAMILY MULBERRY N VENOUS 1 CARE NILO BLOOD ASSOCIATE VENIPUNCT S URE HEMOGLOBI 75841 FAMILY MULBERRY N 1 CARE NILO GLYCOSYLA [place] [address] COMBINED COMBINED THYROID 1 PHYSICIAN PHYSICIAN STIMULATI S LA S LA NG HORMONE TSH BLOOD 06474 FAMILY MULBERRY COUNT 1 CARE NILO COMPLETE ASSOCIATE AUTO&[place] [address] LAB ZOEY LAB ZOEY LIPASE 1 [employer]ING RADIOLOGI 48520 [place] MICH EXAM 1 MEDICAL CARLOS CHEST 2 IMAGING VIEWS ASS FRONTAL&L ATERAL BASIC 82264 COMBINED COMBINED METABOLIC 1 PHYSICIAN PHYSICIAN PANEL S LA S LA CALCIUM TOTAL COLLECTIO 00175 FAMILY BRENDAN J N VENOUS 1 CARE BLOOD ASSOCIATE VENIPUNCT S URE URNLS DIP 70780 ZACK DIXON 0 [facility] STICK/TAB INC INC LET REAGENT AUTO MICROSCOP Y RADIOLOGI 49828 ZACK DIXON C EXAM 0 [facility] CHEST 2 INC INC VIEWS FRONTAL&L ATERAL PRESSURIZ 61806 ZACK DIXON ED/NONPRE 0 [facility] SSURIZED INC INC INHALATIO N TREATMENT IAADI 48874 ZACK DIXON INFLUENZA 0 [facility] B VIRUS INC INC IAADI 12627 ZACK DIXON INFFLUENZ 0 [facility] [place] [address] ZACK DIXON STREPTOCO 0 [facility] [place] [address] COMBINED COMBINED THYROID 0 PHYSICIAN PHYSICIAN STIMULATI S LA S LA NG HORMONE TSH COMPREHEN 11551 COMBINED COMBINED SIVE 0 PHYSICIAN PHYSICIAN METABOLIC S LA S LA PANEL COLLECTIO 00960 FAMILY FAMILY N VENOUS 0 CARE CARE BLOOD ASSOCIATE ASSOCIATE VENIPUNCT S S URE FUNDUS 54155 PETERS LANNY PETERS LANNY PHOTOGRAP 0 HY W/INTERPR ETATION & REPORT OPHTH 89441 PETERS LANNY ROBERTSONNES LANNY MEDICAL 0 XM&EVAL COMPRHNSV ESTAB PT 1/> DIAB ONLY A5500 [facility] FIT CSTM 0 LIFE LIFE PREP&SPL SYSTEMS SYSTEMS [employer] DNSITY INSRT FOR DIAB A5513 [facility] ONLY MX 0 LIFE LIFE DNSITY SYSTEMS SYSTEMS INSRT [facility] LLC CSTM MOLD CSTM EA RADIOLOGI 45930 [place] SH[place] C 0 MEDICAL MELIDA EXAMINATI IMAGING ON ANKLE ASS 2 VIEWS RADIOLOGI 78416 [place] C 0 MEDICAL MELIDA EXAMINATI IMAGING ON ANKLE ASS 2 VIEWS WALKING L4360 [facility] 0 TECHNOLOG TECHNOLOG PNEUMATC IES INC IES INC &/ VACUUM PREFAB CUSTM FIT RADIOLOGI 13680 ZACK DIXON C 0 [facility] EXAMINATI INC INC ON FOOT 2 VIEWS RADEX 02013 [place]I FOOT 0 MEDICAL MELIDA COMPLETE IMAGING MINIMUM 3 ASS VIEWS RADEX 29033 [place] FOOT 0 MEDICAL MELIDA COMPLETE IMAGING MINIMUM 3 [place] [address] [facility] PETTEY 0 PHYSICIAN JAM CALCANEAL S GROUP FRACTURE W/O MANIPULAT ION RADEX 89430 [place] SHERI CALCANEUS 0 MEDICAL MELIDA MINIMUM IMAGING 2 VIEWS ASS RADIOLOGI 23071 [place] C 0 MEDICAL MELIDA EXAMINATI IMAGING ON PELVIS ASS 1/2 VIEWS RADIOLOGI 35919 [place] C 0 MEDICAL MELIDA EXAMINATI IMAGING ON TIBIA ASS & FIBULA 2 VIEWS GROUND A0425 [facility] MILEAGE 0 AMBULANCE AMBULANCE PER SERVICE SERVICE STATUTE MILE AMBULANCE A0429 [facility] SERVICE 0 AMBULANCE AMBULANCE BLS SERVICE [place] [address] [facility] 0 EMERGENCY CHIDI CALCANEAL SERVICES FRACTURE W/O MANIPULAT ION GLUCOSE 66660 FAMILY MULBERRY POST 0 CARE NILO GLUCOSE ASSOCIATE DOSE S COLLECTIO 69706 FAMILY MULBERRY N VENOUS 0 CARE NILO BLOOD ASSOCIATE VENIPUNCT S URE ADMINISTR G0009 FAMILY MULBERRY ATION OF 0 CARE NILO PNEUMOCOC ASSOCIATE JORDYN S VACCINE PPSV23 50014 FAMILY FAMILY VACCINE 2 0 CARE CARE YRS OR ASSOCIATE ASSOCIATE OLDER FOR S S SUBQ/IM USE HEMOGLOBI 43584 FAMILY MULBERRY N 0 CARE NILO GLYCOSYLA ASSOCIATE ALEX A1C S 25 62070 LAB ZOEY LAB ZOEY HYDROXY 0 AMERIC AMERIC INCLUDES HOLD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 IF PERFORMED BLOOD 22576 FAMILY MULBERRY COUNT 0 CARE NILO COMPLETE ASSOCIATE AUTO&[place] [address] COMBINED COMBINED IRON 0 PHYSICIAN PHYSICIAN S LAB S LAB CYANOCOBA 62742 COMBINED COMBINED SOHA 0 PHYSICIAN PHYSICIAN VITAMIN S LAB S LAB B-12 [place] [address] COMBINED COMBINED FERRITIN 0 PHYSICIAN PHYSICIAN S LAB S LAB COMPREHEN 34062 COMBINED COMBINED SIVE 0 PHYSICIAN PHYSICIAN METABOLIC S LAB S LAB PANEL LIPID 50451 COMBINED COMBINED PANEL 0 PHYSICIAN [place] [address] COMBINED COMBINED FOLIC 0 PHYSICIAN PHYSICIAN ACID S LAB S LAB SERUM COLLECTIO 85130 FAMILY MULBERRY, N VENOUS 0 CARE CLEO T BLOOD ASSOCIATE VENIPUNCT S URE HEMOGLOBI 10373 FAMILY MULBERRY, N 0 CARE CLEO T GLYCOSYLA ASSOCIATE ALEX A1C S BLOOD 76233 FAMILY ELIAS, COUNT 0 CARE CLEO T COMPLETE ASSOCIATE AUTO&AUTO S DIFRNTL WBC BLOOD 02988 FAMILY ELIAS, COUNT 0 CARE CLEO T COMPLETE ASSOCIATE AUTO&AUTO S DIFRNTL WBC BASIC 49845 COMBINED COMBINED METABOLIC 0 PHYSICIAN PHYSICIAN PANEL S LAB S LAB CALCIUM TOTAL COLLECTIO 30467 FAMILY ELIAS, N VENOUS 0 CARE CLEO T BLOOD ASSOCIATE VENIPUNCT S URE LANCETS A4259 REID GLASSRELL PER BOX 0 HOME MED HOME MED OF 100 [employer] LLC BLD GLU A4253 REID REID TEST/REAG 0 HOME MED HOME MED T STRIPS EQUIP. EQUIP. HOME BLD [facility] GLU MON-50 [facility]OSPITAL 12125 FAMILY ELIAS, DISCHARGE 0 CARE CLEO T DAY ASSOCIATE MANAGEMEN S T > 30 MIN RADIOLOGI 70620 John ANTON EXAM 0 MEDICAL XAVI Mcdonald CHEST 2 IMAGING VIEWS ASSOCIATE FRONTAL&L S ATERAL SBSQ 34335 [facility] 0 CARE CLEO T CARE/DAY ASSOCIATE 25 S MINUTES INITIAL 02406 [facility] 0 CARE CLEO T CARE/DAY ASSOCIATE 50 S MINUTES INTRO 43433 EMEKA WILCOX, NEEDLE/IN 0 EMERGENCY [facility] SERVICES EXTREMITY ARTERY ASSOCIATE S RADIOLOGI 92722 John TRIPATHI EXAM 0 MEDICAL RAYMUNDO CHEST 2 IMAGING VIEWS ASSOCIATE FRONTAL&L S ATERAL ECG 65937 ZACK BARRETO, ROUTINE 0 [facility] W/LEAST PROF SERV 12 LDS I&[place] [address] [facility] WADE, PART VNTJ 0 MEDICAL RAYMUNDO IMG IMAGING AERSL ASSOCIATE 1/CANDLE WRAPPER S PRJCJ ECHO 40343 [facility] R-T 0 PHYSICIAN MINNA Gardiner S GROUP W/WOM-MOD E COMPL SPEC&COLR D GROUND A0425 [facility] MILEAGE 0 AMBULANCE AMBULANCE PER SERVICE SERVICE STATUTE MILE AMB A0427 [facility] SERVICE 0 AMBULANCE AMBULANCE ALS SERVICE SERVICE EMERGENCY TRANSPORT LEVEL 1 IAADIADOO 03580 FAMILY MULBERRY, 0 CARE CLEO T STREPTOCO ASSOCIATE CCUS S GROUP A ORTHOPANT 79387 LIZZ BRIANUTCHER, OGRAM 0 MEDICAL RAYMUNDO IMAGING ASSOCIATE S COLLECTIO 79966 ZACK DIXON N VENOUS 0 [facility] BLOOD INC INC VENIPUNCT URE RENAL 82548 ZACK DIXON FUNCTION 0 [facility] PANEL INC INC NORMAL A4256 DIABETES DIABETES LOW AND 0 CARE CLUB CARE CLUB HIGH LLC LLC CALIBRATO R SOLUTION/ CHIPS LANCETS A4259 DIABETES DIABETES PER BOX 0 CARE CLUB CARE CLUB OF 100 LLC LLC BLD GLU A4253 DIABETES DIABETES TEST/REAG 0 CARE CLUB CARE CLUB T STRIPS [facility] LLC HOME BLD GLU MON- COLLECTIO 77860 ZACK DIXON N VENOUS 9 [facility] BLOOD INC INC VENIPUNCT URE RENAL 94780 ZACK DIXON FUNCTION 9 [facility] PANEL INC INC ELECTRIC E0215 DIABETES DIABETES HEAT PAD 9 CARE CLUB CARE CLUB MOIST LLC LLC LANCETS A4259 DIABETES DIABETES PER BOX 9 CARE CLUB CARE CLUB OF 100 LLC LLC NORMAL A4256 DIABETES DIABETES LOW AND 9 CARE CLUB CARE CLUB HIGH [facility] LLC CALIBRATO R SOLUTION/ CHIPS BLD GLU A4253 DIABETES DIABETES TEST/REAG 9 CARE CLUB CARE CLUB T [facility] LLC HOME BLD GLU 50 COLLECTIO 65860 ZACK DIXON N VENOUS 9 [facility] [place] [address] ZACK DIXON RETROPERI 9 [facility] TONEAL INC INC REAL TIME W/IMAGE COMPLETE RENAL 31640 ZACK DIXON FUNCTION 9 [facility] PANEL INC INC URNLS DIP 84541 ZACK DIXON 9 [facility] STICK/TAB INC INC LET REAGENT AUTO MICROSCOP Y CULTURE 94085 ZACK DIXON BACTERIAL 9 [facility] INC INC QUANTTATI VE COLONY COUNT URINE ANTINUCLE 65133 ZACK DIXON AR 9 [facility] [place] [address] ZACK DIXON BLOOD/URI 9 [facility] C ACID INC INC COMPLEMEN 32108 ZACK DIXON T 9 [facility] FUNCTIONA INC INC L ACTIVITY EACH COMPONENT CULTURE 00700 ZACK DIXON BCT 9 [facility] ISOL&PRSM INC INC PTV ID ISOLATE EA URINE SUSCEPTIB 99829 ZACK DIXON LTY STDY 9 [facility] ANTIMICRB INC INC IAL MICRO/AGA R DILUTJ ANTISTREP 03195 ZACK DIXON TOLYSIN O 9 [facility] SCREEN INC INC BASIC 13268 ZACK DIXON METABOLIC 9 [facility] PANEL INC INC CALCIUM TOTAL COLLECTIO 83857 ZACK DIXON N VENOUS 9 [facility] BLOOD INC INC VENIPUNCT URE COLLECTIO 22744 ZACK DIXON N VENOUS 9 [facility] BLOOD INC INC VENIPUNCT URE COMPREHEN 35142 ZACK DIXON SIVE 9 [facility] [address] ZACK DIXON THYROID 9 [facility] STIMULATI INC INC NG HORMONE TSH BLOOD 16731 ZACK DIXON COUNT 9 [facility] COMPLETE INC INC AUTO&AUTO DIFRNTL WBC REPL KIM A4235 DIABETES DIABETES LITHIUM 9 CARE CLUB CARE CLUB MED NECES [facility] [employer] BG MON OWN PT EA SPRING-PO A4258 DIABETES DIABETES WERED 9 CARE CLUB CARE CLUB DEVICE [employer] [facility] NORMAL A4256 DIABETES DIABETES LOW AND 9 CARE CLUB CARE CLUB HIGH [facility] CALIBRATO R SOLUTION/ CHIPS LANCETS A4259 DIABETES DIABETES PER BOX 9 CARE CLUB CARE CLUB OF 100 [facility] LLC BLD GLU A4253 DIABETES DIABETES TEST/REAG 9 CARE CLUB CARE CLUB T STRIPS [facility] LLC HOME BLD GLU MON-50 OPHTH 79436 LORRAINE, LORRAINE, MEDICAL 9 GEE A GEE A XM&EVAL COMPRHNSV ESTAB PT 1/> ALBUMIN 70718 FAMILY MULBERRY, URINE 9 CARE CLEO T MICROALBU ASSOCIATE MIN S SEMIQUANT ITATIVE CREATININ 83986 FAMILY JADA, E OTHER 9 CARE CLEO Rollins SOURCE ASSOCIATE S COLLECTIO 77503 FAMILY JADA, N VENOUS 9 CARE CLEO Rollins BLOOD ASSOCIATE VENIPUNCT S URE HEMOGLOBI 21779 COMBINED COMBINED N 9 PHYSICIAN PHYSICIAN GLYCOSYLA S LAB S LAB ALEX A1C BLD GLU A4253 DIABETES DIABETES TEST/REAG 9 CARE CLUB CARE CLUB T [employer] [facility] HOME BLD GLU MON-50 LANCETS A4259 DIABETES DIABETES PER BOX 9 CARE CLUB CARE CLUB OF 100 [facility] LLC NORMAL A4256 DIABETES DIABETES LOW AND 9 CARE CLUB CARE CLUB HIGH LLC LLC CALIBRATO R SOLUTION/ CHIPS NORMAL A4256 DIABETES DIABETES LOW AND 8 CARE CLUB CARE CLUB HIGH [facility] LLC CALIBRATO R SOLUTION/ CHIPS LANCETS A4259 DIABETES DIABETES PER BOX 8 CARE CLUB CARE CLUB OF 100 [facility] LLC BLD GLU A4253 DIABETES DIABETES TEST/REAG 8 CARE CLUB CARE CLUB T [employer] [facility] HOME BLD GLU MON-50 MANUAL 93861 PROFESSIO CROSSFIEL THERAPY 8 NAL REHAB D, TQS 1/> ASSOC DANNITA REGIONS PSC EACH 15 MINUTES THERAPEUT 61806 PROFESSIO CROSSFIEL IC PX 1/> 8 NAL REHAB D, AREAS ASSOC DANNITA EACH 15 PSC MIN EXERCISES THERAPEUT 96147 PROFESSIO CROSSFIEL ACTVITY 8 NAL REHAB D, DIRECT PT ASSOC DANNITA CONTACT PSC EACH 15 MIN CANE E0105 REID MATHEWS QUAD/3-[place] 8 HOME MED HOME MED GABINO ALL EQUIP. EQUIP. [employer] LLC ADJUSTBL/ FIX W/TIPS THERAPEUT 06637 PROFESSIO CROSSFIEL IC PX 1/> 8 NAL REHAB D, AREAS ASSOC DANNITA EACH 15 PSC MIN EXERCISES MANUAL 30473 PROFESSIO CROSSFIEL THERAPY 8 NAL REHAB D, TQS 1/> ASSOC DANNITA REGIONS PSC EACH 15 MINUTES PHYSICAL 76503 PROFESSIO CROSSFIEL THERAPY 8 NAL REHAB D, EVALUATIO ASSOC DANNITA N PSC RADEX HIP 08987 ZACK DIXON 8 [facility] UNILATERA INC INC L COMPLETE MINIMUM 2 VIEWS RADEX 39996 LIZZ EPPS, SPINE 8 MEDICAL XAVI Mcdonald LUMBOSACR IMAGING AL ASSOCIATE MINIMUM 4 S VIEWS Encounters Encounter Start End Date Code Location Performer Type Date EMERGENCY 92747 RUDY JOINER DEPT 7 7 PHYSICIAN VISIT S, [facility] HIGH SEVERITY& THREAT [facility] ZACK - 7 7 [facility] INPATIENT [facility] ZACK - 6 6 [facility] OUTPATIEN [facility] OFFICE 16965 CAMERON GORDILLO OUTPATIEN 6 6 MEDICAL T VISIT SERV 25 FOUNDATIO MINUTES N EMERGENCY 38336 ZACK DEPT 6 6 [facility] VISIT [facility] HIGH SEVERITY& THREAT [facility] ZACK - 6 6 [facility] OUTPATIEN [facility] ZACK - OTHER 6 6 [facility] INC OFFICE 86956 [place] ERIBERTO YANESN OUTPATIEN 6 6 MEDICAL T VISIT SERV 25 FOUNDATIO MINUTES HOSPITAL ZACK - OTHER 6 6 [facility] INC OFFICE 76112 [place] WILL OUTPATIEN 6 6 [facility] T VISIT INTERNAL 15 MEDI MINUTES EMERGENCY 84996 ZACK 6 6 MEM [facility] DEPARTMEN [facility] T VISIT HIGH/URGE NT SEVERITY EMERGENCY 90295 RUDY WANG DEPT 6 6 PHYSICIAN VISIT S, [facility] HIGH SEVERITY& THREAT FUNJ OFFICE 12128 [place] BESSON OUTPATIEN 6 6 [facility] T VISIT INTERNAL 15 MED MINUTES HOSPITAL ZACK - 6 6 [facility] OUTPATIEN [facility] T EMERGENCY 22252 RUDY WILCOX 6 6 PHYSICIAN CHIDI DEPARTMEN S, [facility] T VISIT HIGH/URGE NT SEVERITY EMERGENCY 69592 ZACK 6 6 MEM [facility] DEPARTMEN INC T VISIT MODERATE SEVERITY [facility]OSPITAL ZACK - 6 6 [facility] OUTPATIEN INC T [facility]PAT[facility] 6 6 [facility] INPATIENT 6 6 [facility] EMERGENCY 71406 ZACK 5 5 [facility] DEPARTMEN INC T VISIT LOW/MODER SEVERITY HOSPITAL ZACK - 5 5 [facility] OUTPATIEN INC T [facility] INPATIENT 5 5 [facility] INPATIENT 5 5 [facility] ZACK - 5 5 MEM [facility] INPATIENT INC OFFICE 63274 ZACK CALDERON OUTPATIEN 5 5 [facility] T VISIT 5 HOSPITAL MINUTES HOSPITAL ZACK - 5 5 [facility] OUTPATIEN INC T OFFICE 47990 ZACK CALDERON OUTPATIEN 5 5 [facility] VISIT HOSPITAL 10 P MINUTES EMERGENCY 48728 ZACK 5 5 [facility] DEPARTMEN INC T VISIT LIMITED/M INOR PROB OFFICE 66603 CAMERON GORDILLO OUTPATIEN 5 5 MEDICAL T VISIT SERV [address] [facility] ZACK - 5 5 [facility] OUTPATIEN INC T HOSPITAL ZACK - 5 5 [facility] OUTPATIEN INC T OFFICE 21079 [place] WILL OUTPATIEN 5 5 [facility] T VISIT INTERNAL 25 MEDI MINUTES HOSPITAL ZACK - 5 5 [facility] OUTPATIEN INC T OFFICE 66328 ZACK CALDERON OUTPATIEN 5 5 [facility] T VISIT HOSPITAL 15 P MINUTES HOSPITAL ZACK - OTHER 5 5 MEM [facility] INC OFFICE 53961 ZACK CONNELL 5 5 [facility] T VISIT HOSPITAL 10 P MINUTES [facility] INPATIENT 5 5 [facility] OFFICE 97624 [place] ERIBERTO GORDILLO OUTPATIEN 5 5 MEDICAL T VISIT SERV 25 FOUNDATIO MINUTES N [facility] INPATIENT 5 5 [facility] INPATIENT 5 5 [facility] 5 5 [facility] ZACK - 5 5 [facility] INPATIENT [facility] EMERGENCY 43480 ZACK Dawn 5 5 [facility] T VISIT P LOW/MODER SEVERITY HOSPITAL ZACK - 5 5 [facility] OUT[facility] ZACK - 5 5 [facility] OFFICE [address] [place] ERIBERT[place] GORDILLO OUTPATIEN 4 4 MEDICAL T VISIT SERV 25 FOUNDATIO MINUTES [facility]OSP[facility] ZACK - 4 4 [facility] ZACK [facility] 4 4 [facility] EMERGENCY 90975 [facility] DEPT 4 4 ERIC IMT VISIT EMERGENCY HIGH PHYS SEVERITY& THREAT FUN EMERGENCY 38669 ZACK 4 4 [facility] VISIT MODERATE SEVERITY HOSPITAL ZACK - OTHER 4 4 [facility] Z[facility] - 4 4 [facility] T OFFICE 63161 [place] ERI[place]ERT[place] GORD[place] OUTPATIEN 4 4 MEDICAL T VISIT SERV 25 FOUNDATIO MINUTES HOSPITAL ZACK - KELLIE 4 4 [facility] ZACK - 4 4 [facility] OUTPATIEN INC OFFICE 97021 CAMERON GORDILLO OUTPATIEN 3 3 MEDICAL T VISIT SERV 25 FOUNDATIO MINUTES OFFICE 22179 [facility] OUTPATIEN 3 3 PHYSICIAN JAM T VISIT S GROUP 15 MINUTES [facility] ZACK - 3 3 [facility] 68234 ZACK 3 3 [facility] T VISIT LIMITED/M INOR [facility] ZACK - 3 3 [facility] OUT[facility] EMERGENCY 42850 EMEKA ALFORD 3 3 EMERGENCY III [facility] SERVICES T VISIT HIGH/URGE NT SEVERITY EMERGENCY 02047 ZACK 3 3 [facility] T VISIT HIGH/URGE NT SEVERITY EMERGENCY 65045 EMEKA LIRA DEPT 3 3 EMERGENCY VISIT SERVICES HIGH SEVERITY& THREAT [facility] ZACK - 3 3 [facility] ZACK [facility] 3 3 [facility] ZACK - 3 3 [facility] OFFICE 45729 CAMERON GORDILLO OUTPATIEN 3 3 MEDICAL T VISIT SERV 25 FOUNDATIO MINUTES [facility] ZACK - 3 3 [facility] ZACK - 3 3 [facility] ZACK - 3 3 [facility] ZACK - 3 3 [facility] ZACK - 3 3 [facility] 85307 EMEKA CASTELLANO DEPT 2 2 EMERGENCY VISIT SERVICES HIGH SEVERITY& THREAT [facility] ZACK - 2 2 [facility] Z[facility] 2 2 [facility] Z[facility] 2 2 [facility] OFFICE 93004 CAMERON ERIBERTO GORDILLO OUTPATIEN 2 2 MEDICAL T VISIT SERV 25 [facility] ZACK - 2 2 [facility] Z[facility] - 2 2 [facility] OFFICE 33020 CAMERON ERIBERTO GORDILLO OUTPATIEN 2 2 MEDICAL T VISIT SERV 15 [facility] ZACK - 2 2 [facility] Z[facility] 2 2 [facility] EMERGENCY 28666 ZACK 2 2 [facility] VISIT HIGH/URGE NT SEVERITY [facility] ZACK - 2 2 [facility] EMERGENCY 92593 EMEKA ALFORD DEPT 2 2 EMERGENCY III NANCY VISIT SERVICES HIGH SEVERITY& THREAT [facility] ZACK - 2 2 [facility] ZACK [facility] 2 2 [facility] EMERGENCY 44120 EMEKA WILCOX DEPT 2 2 EMERGENCY [facility]IDI VISIT SERVICES HIGH SEVERITY& THREAT [facility] EMERGENCY 38157 ZACK 2 2 [facility] VISIT HIGH/URGE NT SEVERITY HOSPITAL ZACK - 2 2 [facility] INPATIENT INC OFFICE 90396 FAMILY STRAWZELL OUTPATIEN 2 2 CARE CRI T VISIT ASSOCIATE 25 S, PSC MINUTES OFFICE 30597 FAMILY STRAWZELL OUTPATIEN 2 2 CARE CRI T VISIT ASSOCIATE 15 S, PSC MINUTES EMERGENCY 46552 ZACK 2 2 [facility] T VISIT LOW/MODER SEVERITY [facility]OSPITAL ZACK - 2 2 [facility] OUT[facility]EN [facility] T EMERGENCY 15071 EMEKA ALFORD 2 2 EMERGENCY III [facility] SERVICES T VISIT HIGH/URGE NT SEVERITY [facility]OSPITAL ZACK - 2 2 [facility] OUTPATIEN [facility] T OFFICE 30523 [place] WEISada GORDILLO OUTPATIEN 2 2 MEDICAL T VISIT SERV 25 FOUNDATIO MINUTES OFFICE 70845 PAWSAT PAWSAT OUTPATIEN 2 2 Aug T NEW 30 MINUTES HOSPITAL ZACK - 1 1 [facility] ZACK - 1 1 [facility] T OFFICE 36601 [place] ERI[place]ERT[place] GORDILLO OUTPATIEN 1 1 MEDICAL T VISIT SERV 25 FOUNDATIO MINUTES HOSPITAL ZACK - 1 1 [facility] EMERGENC[facility] 83618 ZACK 1 1 [facility] DEPARTMEN [facility] T VISIT MODERATE SEVERITY [facility]OSPITAL ZACK - 1 1 [facility] ZACK - 1 1 [facility] ZACK [facility] 1 1 [facility] ZACK [facility] 1 1 [facility] T OFFICE 57588 [place] [facility] OUTPATIEN 1 1 [place] T NEW 45 CLINIC MINUTES [facility] ZACK - 1 1 [facility] OUTPATIEN INC T OFFICE 63578 [place] ERI[place]ERT[place] GORDILL[place] OUTPATIEN 1 1 MEDICAL T NEW 60 SERV MINUTES [facility] ZACK - 1 1 [facility] OUTPATIEN INC T OFFICE 92696 FAMILY MULBERRY OUTPATIEN 1 1 CARE NILO T VISIT ASSOCIATE 40 S MINUTES HOSPITAL ZACK - 1 1 [facility] OUTPATIEN INC T EMERGENCY 21222 ZACK 1 1 [facility] DEPARTMEN INC T VISIT LOW/MODER SEVERITY EMERGENCY 41551 EMEKA WU 1 1 EMERGENCY JAM DEPARTMEN SERVICES T VISIT MODERATE SEVERITY OFFICE 37945 FAMILY LOGANBERRY OUTPATIEN 1 1 CARE NILO T VISIT ASSOCIATE 25 S MINUTES OFFICE 29053 ANKUSH LECHUGA JR OUTPATIEN 1 1 [facility]LAINE ELAINE T VISIT 15 MINUTES [facility]OSPITAL ZACK - 1 1 [facility] OUTPATIEN INC T OFFICE 64009 ANKUSH LECHUGA JR OUTPATIEN 1 1 ELAINE ELAINE T NEW 45 MINUTES [facility]OSPITAL ZACK - 1 1 [facility] INC T [facility] ZACK - 1 1 [facility] OUTPATIEN INC T OFFICE 75594 FAMILY JADA OUTPATIEN 1 1 CARE NILO T VISIT ASSOCIATE 25 S MINUTES [facility]OSPITAL ZACK - 1 1 [facility] OUTPATIEN INC T EMERGENCY 62890 EMEKA CASTELLANO 1 1 EMERGENCY DEPARTMEN SERVICES T VISIT HIGH/URGE NT SEVERITY EMERGENCY 90302 ZACK 1 1 [facility] DEPARTMEN INC T VISIT LOW/MODER SEVERITY OFFICE 12428 FAMILY BRENDAN J OUTPATIEN 1 1 CARE T VISIT ASSOCIATE 15 S MINUTES HOSPITAL ZACK - 0 0 [facility] OUTPATIEN INC T EMERGENCY 37439 ZACK 0 0 [facility] DEPARTMEN INC T VISIT LOW/MODER SEVERITY EMERGENCY 63637 EMEKA WILCOX 0 0 EMERGENCY [facility] DEPARTMEN SERVICES T VISIT HIGH/URGE NT SEVERITY OFFICE 58989 FAMILY BRENDAN J OUTPATIEN 0 0 CARE T VISIT ASSOCIATE 15 S MINUTES OFFICE 00610 FAMILY BRENDAN J OUTPATIEN 0 0 CARE T VISIT ASSOCIATE 15 S MINUTES [facility]OSPITAL ZACK - 0 0 [facility] OUT[facility]IEN INC T OFFICE 83829 FAMILY MULBERRY OUTPATIEN 0 0 CARE NILO T VISIT ASSOCIATE 25 S MINUTES [facility]OSPITAL ZACK - 0 0 [facility]EN INC T [facility] ZACK - 0 0 [facility] OUTPATIEN INC T OFFICE 97713 [facility] OUTPATIEN 0 0 PHYSICIAN JAM T NEW 45 S GROUP MINUTES EMERGENCY 90444 ZACK 0 0 [facility] DEPARTMEN INC T VISIT MODERATE SEVERITY [facility]OSPITAL ZACK - 0 0 [facility] OUTPATIEN INC T EMERGENCY 15869 EMEKA WILCOX 0 0 EMERGENCY [facility] DEPARTMEN SERVICES T VISIT HIGH/URGE NT SEVERITY OFFICE 31841 FAMILY MULBERRY OUTPATIEN 0 0 CARE NILO T VISIT ASSOCIATE 25 S MINUTES OFFICE 65526 FAMILY MULBERRY, OUTPATIEN 0 0 CARE CLEO T T VISIT ASSOCIATE 15 S MINUTES OFFICE 31204 FAMILY MULBERRY, OUTPATIEN 0 0 CARE CLEO T T VISIT ASSOCIATE 25 S MINUTES OFFICE 40658 FAMILY MULBERRY, OUTPATIEN 0 0 CARE CLEO T T VISIT ASSOCIATE 15 S MINUTES OFFICE 26053 FAMILY MULBERRY, OUTPATIEN 0 0 CARE CLEO T T VISIT ASSOCIATE 25 S MINUTES EMERGENCY 04559 EMEKA WILCOX, DEPT 0 0 EMERGENCY TAYA S VISIT SERVICES HIGH SEVERITY& ASSOCIATE THREAT S [facility] ZACK - 0 0 [facility] INPATIENT INC OFFICE 07552 FAMILY JADA, OUTPATIEN 0 0 CARE CLEO T T VISIT ASSOCIATE 15 S MINUTES EMERGENCY 00096 ZACK 0 0 [facility] DEPARTMEN INC T VISIT LOW/MODER SEVERITY [facility]OSPITAL ZACK - 0 0 [facility] OUTPATIEN INC [facility] ZACK - 0 0 [facility] OUTPATIEN INC T OFFICE 39921 MEANS BUTROS, OUTPATIEN 9 9 ADULT REVANESAA T VISIT PRIMARY 15 CARE [facility] ZACK - 9 9 [facility] OUTPATIEN INC T OFFICE 22342 MEANS BUTROS, OUTPATIEN 9 9 ADULT REVANESAA T VISIT PRIMARY 25 CARE [facility] ZACK - 9 9 [facility] OUTPATIEN INC T OFFICE 55772 MEANS BUTROS, CONSULTAT 9 9 ADULT RERANDALLLLA ION [facility] 80 MIN [facility] ZACK - 9 9 [facility] OUTPATIEN INC T OFFICE 94525 FAMILY JADA OUTPATIEN 9 9 CARE CLEO T T VISIT ASSOCIATE 15 S MINUTES OFFICE 78658 FAMILY JADA OUTPATIEN 9 9 CARE CLEO T T VISIT ASSOCIATE 25 S MINUTES [facility]OSPITAL ZACK - 9 9 [facility] OUT[facility]IEN INC T OFFICE 39197 FAMILY JADA OUTPATIEN 9 9 CARE CLEO T T VISIT ASSOCIATE 25 S MINUTES OFFICE 22499 FAMILY KO OCAMPO 8 8 CARE R PADMINI T VISIT ASSOCIATE 25 S MINUTES HOSPITAL ZACK - 8 8 [facility] OUTPATIEN INC T OFFICE 33882 Sameer MARCOS 8 8 CARE G T VISIT ASSOCIATE 15 S MINUTES HOSPITAL ZACK - 8 8 [facility] OUTPATIEN INC T EMERGENCY 45340 [facility]MODER SE[facility]ITY [facility] ZACK - 8 8 [facility] 20347 [facility] 8 [facility] V[facility]/M INOR PROB
--- OUTSIDE RECORDS SUMMARY | 2016-10-19 17:17 | External Medical Summary Rpt ---
Author Author , Organization [employer] Address Unknown Phone Unavailable Care Team Providers Care Inside Sales Associate Name Role Phone CALDERON VALENTINE, CALDERON Unavailable [...] TRACY RODRIGUEZ ALL, RODRIGUEZ ALL Unavailable Unavailable [facility] Unavailable Unavailable SERVICE, [facility] Unavailable Unavailable SERVICE, [facility] BUTROS, REZKALLA, Unavailable Unavailable BUTROS, REZKALLA [facility] Unavailable Unavailable CONSULTANTS O, [facility] Unavailable Unavailable CAMPUS, [facility] Unavailable Unavailable CAMPUS, [facility] Unavailable Unavailable [place], [facility] [...] S MARISOL ANDREZ, Unavailable Unavailable MARISOL ANDREZ [facility] Unavailable Unavailable INC, [facility] Unavailable Unavailable HOSPITAL P, [facility] PETERS LANNY, PETERS LANNY Unavailable Unavailable PETERS LANNY, PETERS LANNY Unavailable Unavailable PETERS, GEE A, Unavailable Unavailable PETERS, GEE A [facility], Unavailable Unavailable [facility] JOINER, JOINER Unavailable Unavailable KLARISSA IMT, KLARISSA Unavailable Unavailable IMT [facility] Unavailable Unavailable [facility], [facility] KOTTER JUAN J, KOTTER [...] E [facility] Unavailable Unavailable [facility] MED, [facility] Unavailable Unavailable [facility]I, [facility] Unavailable Unavailable SERVICES, [facility] MCKEMIE JR NANCY, Unavailable Unavailable MCKEMIE JR NANCY MICH CARLOS, MICH Unavailable Unavailable CARLOS XAVI EPPS P, Unavailable Unavailable [facility] EP[facility] P MULBERRY NILO, Unavailable Unavailable MULBERRY NILO MULBERRY, CLEO T, Unavailable Unavailable MULBERRY, CLEO T CROWELL SON, CROWELL SON Unavailable Unavailable [facility] Unavailable Unavailable [facility], [facility] Clemente OCAMPO, Unavailable Unavailable Clemente OCAMPO [...] Unavailable Unavailable EQUIPME, [facility] Unavailable Unavailable EQUIPME, [facility] Unavailable Unavailable EMERGENCY PHYS, [facility] Unavailable Unavailable CLINIC, [facility] STRAWZELL CRI, Unavailable Unavailable STRAWZELL CRI [facility], Unavailable Unavailable [facility], Unavailable Unavailable [facility] WEI RAND, WEI RAND Unavailable Unavailable WEHRMAN III NANCY, Unavailable Unavailable WEHRMAN III NANCY [facility] Unavailable Unavailable LLC, [facility] ELSA LIRA, ELSA LIRA Unavailable Unavailable Purpose Continuity of Care Document - 11-11-2007 through 2016 Problems Code Diagnosis DOS Provider Status E109 TYPE 1 09-14-2016 [facility] DIABETES PHYSICIANS MELLITUS GROUP WITHOUT COMPLICATIO NS I213 ST 09-14-2016 [facility] ELEVATION PHYSICIANS MYOCARDIAL GROUP INFARCTION UNS SITE I739 PERIPHERAL 09-14-2016 [facility] VASCULAR PHYSICIANS DISEASE GROUP UNSPECIFIED N183 CHRONIC 09-14-2016 [facility] KIDNEY PHYSICIANS DISEASE GROUP STAGE 3 MODERATE E1142 TYPE 2 09-13-2016 [facility] P W/DIAB POLYNEUROPA THY I119 HYPERTENSIV 09-13-2016 [facility] HEART PHYSICIANS, DISEASE PLLC WITHOUT HEART FAILURE I129 HYPERTENSIV 09-13-2016 [facility] CKD [facility] W/STAGE 1-4 INC CKD OR UNS CKD S92369 ASHD TRIBAL 09-13-2016 [facility] COR ART [facility] W/UNSTABLE INC ANGINA PECTORIS I5043 ACUTE ON 09-13-2016 [facility] P SYSTOLIC & DIASTOLIC CHF I773 ARTERIAL 09-13-2016 [facility] FIBROMUSCUL [facility] AR INC DYSPLASIA R0602 SHORTNESS 09-13-2016 [facility] OF BREATH PHYSICIANS GROUP R0689 OTHER 09-13-2016 [facility] AMBULANCE ES OF SERVICE BREATHING Z794 RETIREMENT 09-13-2016 [facility] CURRENT USE [facility] OF INSULIN INC E039 HYPOTHYROID 06-09-2016 [facility] ISM [facility] UNSPECIFIED INC E118 TYPE 2 06-09-2016 [facility] DIABETES [facility] MELLITUS INC W/UNS COMPLICATIO NS E119 TYPE 2 03-21-2016 [facility] MEDICAL DIABETES SERV MELLITUS FOUNDATION WITHOUT COMPLICATIO NS M810 AGE-RELATED 03-21-2016 [facility] MEDICAL SERV OSTEOPOROSI FOUNDATION S W/O CURRNT PATH FX N184 CHRONIC 03-21-2016 [place] [facility] DISEASE FOUNDATION STAGE 4 SEVERE N250 RENAL 03-21-2016 [place] [facility] OSTEODYSTRO SERV PHY FOUNDATION N390 URINARY 03-18-2016 [facility]IC[facility]ANS INFECTION LA SITE NOT SPECIFIED X81981 TYPE 2 02-28-2016 [facility] DIABETES [facility] MELLITUS [facility] P W/HYPOGLYCE VICTORIANO W/O COMA E162 HYPOGLYCEMI 02-28-2016 [facility] A PHYSICIANS, UNSPECIFIED PLLC E876 HYPOKALEMIA 02-28-2016 [facility] INC I10 ESSENTIAL 02-28-2016 [facility] HYPERTENSIO [facility] P N I5032 CHRONIC 02-28-2016 [facility] P HEART FAILURE R410 DISORIENTAT 02-28-2016 [facility] ION AMBULANCE UNSPECIFIED SERVICE Z591 INADEQUATE 02-28-2016 [facility] HOSP INC S61209 OTHER LONG 02-28-[address] [facility] [address] [facility] CURRENT INC DRUG THERAPY G4733 OBSTRUCTIVE 02-15-2016 [facility] SLEEP HOME APNEA ADULT MEDICAL PEDIATRIC EQUIPME [id number] MX FX 02-15-2016 [facility] PELVIS STBL HOME DISRUPT MEDICAL PELV RING EQUIPME INIT CHANDRIKA FX I8310 VARICOSE 09-17-2015 [facility] UNS VALLEY LOWER INTERNAL EXTREM MEDI W/INFLAMMAT ION M129 ARTHROPATHY 09-17-2015 [facility] UNSPECIFIED INTERNAL MEDI Z9111 PATIENTS 09-07-2015 [facility] NONCOMPLIAN VALLEY CE WITH INTERNAL DIETARY MEDI REGIMEN N189 CHRONIC 09-05-2015 [facility] KIDNEY PHYSICIANS, DISEASE PLLC UNSPECIFIED R1110 VOMITING 09-05-2015 [facility] UNSPECIFIED [facility]ICAL IM[facility]ING ASS R404 TRANSIENT 09-05-2015 [facility] ALTERATION MEDICAL OF IMAGING ASS AWARENESS R4182 ALTERED 09-05-2015 [facility] MENTAL PHYSICIANS, STATUS PLLC UNSPECIFIED R464 SLOWNESS 09-05-2015 [facility] RESPONSIVEN SERVICE ESS O13817 CELLULITIS 08-16-2015 [facility] OF RIGHT VALLEY LOWER LIMB INTERNAL MED L74982 CELLULITIS 08-16-2015 [facility] OF LEFT VAL[place] LOWER LIMB INTERNAL MED E1021 TYPE 1 08-10-2015 [facility] DIABETES [facility] MELLITUS INC W/DIABETIC NEPHROPATHY E1065 TYPE 1 08-10-2015 [facility] DIABETES [facility] MELLITUS INC WITH HYPERGLYCEM IA E138 OTH SPEC 08-10-2015 [facility] DIABETES PHYSICIANS, MELLITUS PLLC W/UNS COMPLICATIO NS L31304 CELLULITIS 08-10-2015 [facility] OF PHYSICIANS, UNSPECIFIED PLLC PART OF LIMB R739 HYPERGLYCEM 08-10-2015 [facility] [place] [facility] UNSPECIFIED SERVICE L853 XEROSIS 08-09-2015 [facility] CUTIS [place] INTERNAL MED E6601 MORBID 08-05-2015 [facility] SEVERE [facility] OBESITY DUE INTERNAL TO EXCESS MEDI CALORIES I270 PRIMARY 07-20-2015 [facility] PULMONARY [facility] HYPERTENSIO CAMPUS N I5030 UNSPECIFIED 07-20-2015 [facility] CONGESTIVE UPLAND HEART FAILURE R0600 DYSPNEA 07-20-2015 [facility] M542 CERVICALGIA 07-12-2015 [facility] M546 PAIN IN 07-12-2015 [facility] THORACIC MOBILEX SPINE I509 HEART 07-11-2015 [facility] FAILURE VALLEY UNSPECIFIED INTERNAL MED I8311 VARICOSE 07-11-2015 [facility] RT BRISTOL LOWER INTERNAL EXTREMITY MED W/INFLAMMAT ION M4003 POSTURAL 07-11-2015 [facility] KYPHOSIS BRISTOL CERVICOTHOR INTERNAL ACIC REGION MED R05 COUGH 06-05-2015 [facility] R600 LOCALIZED 05-09-2015 [facility] O I348 OTHER 05-05-2015 [place] [facility] NONRHEUMATI SERV C MITRAL FOUNDATION VALVE DISORDERS I361 NONRHEUMATI 05-05-2015 [facility] TRICUSPID SERV VALVE FOUNDATION INSUFFICIEN CY I371 NONRHEUMATI 05-05-2015 [facility] C PULMONARY SERV VALVE FOUNDATION INSUFFICIEN [...] INC ADULT N3020 OTHER 04-28-2015 [facility] CHRONIC [facility] WITHOUT HEMATURIA J209 ACUTE 03-31-2015 [facility] BRONCHITIS [facility] UNSPECIFIED INC K01061 PERSONAL 03-31-2015 [facility] HISTORY OF [facility] H[facility] NICOTINE INC DEPENDENCE A499 BACTERIAL 03-23-2015 [place] [facility] INFECTION SERV UNSPECIFIED FOUNDATION R279 UNSPECIFIED 03-19-2015 [facility] LACK OF MEM HOS[facility] COORDINATIO INC N Z5189 ENCOUNTER 03-19-2015 [facility] FOR OTHER [facility] SPECIFIED INC AFTERCARE 32568 DIAB W/O 03-17-2015 [facility] COMP TYPE I HOME [JUV] NOT MEDICAL STATED EQUIPME UNCNTRL 06193 OBSTRUCTIVE 03-17-2015 [facility] SLEEP HOME APNEA MEDICAL EQUIPME 53501 MULTIPLE 03-17-2015 [facility] CLOSED HOME PELVIC FX MEDICAL DISRUPT EQUIPME PELVIC RAMAH NAVAJO CHAPTER 2449 UNSPECIFIED 03-10-2015 [facility] HYPOTHYROID INC ISM 89326 DIAB W/O 03-10-2015 [facility] COMP TYPE [facility] II/UNS NOT INC STATED UNCNTRL 5854 CHRONIC 03-10-2015 [facility] KIDNEY [facility] DISEASE INC STAGE IV (SEVERE) 5990 URINARY 03-10-2015 [facility] TRACT [facility] INFECTION INC SITE NOT SPECIFIED 42706 UNSPECIFIED 03-10-2015 [facility] OSTEOPOROSI INC S 4019 UNSPECIFIED 03-02-2015 [facility] ESSENTIAL [facility] HYPERTENSIO INTERNAL N MEDI 4541 VARICOSE 03-02-2015 [facility] LOWER [facility] INTERNAL EXTREMITIES MEDI W/INFLAMMAT ION 64765 UNSPECIFIED 03-02-2015 [facility] CONSTIPATIO INTERNAL N MEDI 5939 UNSPECIFIED 03-02-2015 [facility] DISORDER VALLEY OF KIDNEY INTERNAL AND URETER MEDI 7823 EDEMA 03-02-2015 [facility] INTERNAL MEDI 98517 UNSPECIFIED 03-02-2015 [facility] RETENTION [place] OF URINE INTERNAL MEDI 22781 UNSPECIFIED 02-24-2015 [facility] ARTHROPATHY [facility] P MULTIPLE SITES 7813 LACK OF 02-24-2015 [facility] P V571 OTHER 02-24-2015 [facility] PHYSICAL [facility] THERAPY INC 5952 OTHER 02-03-2015 [facility] CYSTITIS [facility] P 2761 HYPOSMOLALI 01-17-2015 [facility] TY AND/OR HEALTH HYPONATREMI CAMPUS A 10027 LEUKOCYTOSI 01-17-2015 [facility] S HEALTH UNSPECIFIED CAMPUS 5849 ACUTE 01-17-2015 [facility] KIDNEY HEALTH FAILURE CAMPUS UNSPECIFIED 7197 DIFFICULTY 01-17-2015 [facility] IN WALKING HEALTH CAMPUS 66389 MUSCLE 01-17-2015 [facility] WEAKNESS HEALTH (GENERALIZE CAMPUS D) 7568 UNSPECIFIED 01-17-2015 [facility] DEBILITY HEALTH CAMPUS 9953 ALLERGY 01-17-2015 [facility] UNSPECIFIED HEALTH NOT CAMPUS ELSEWHERE CLASSIFIED 46009 HTN CKD UNS 12-25-2014 [place] [facility] W/CKD SERV STAGE I FOUNDATION THRU STAGE IV/UNS 515 POSTINFLAMM 12-16-2014 [facility] ATORY [facility] PULMONARY FIBROSIS V5881 FITTING AND 12-16-2014 [facility] ADJUSTMENT [facility]BILEX OF VASCULAR CATHETER 4280 CONGESTIVE 12-09-2014 [facility] HEART [facility]BI[facility] FAILURE UNSPECIFIED 4293 CARDIOMEGAL 12-09-2014 [facility] Y [facility] 1101 DERMATOPHYT 12-04-2014 [facility] OSIS OF E NAIL 45617 DIAB 12-04-2014 [facility] W/PERIPH E CIRC D/O TYPE II/UNS NOT UNCNTRL 4439 UNSPECIFIED 12-04-2014 [facility] PERIPHERAL E VASCULAR DISEASE 9172 FOOT&TOE 12-04-2014 [facility] BLISTER E WITHOUT MENTION OF INFECTION 9243 CONTUSION 12-04-2014 [facility] OF TOE E 81509 ABDOMINAL 11-03-2014 [facility] PAIN RIGHT MEDICAL UPPER IMAGING ASS QUADRANT 5533 DIAPHRAGMAT 11-01-2014 [facility] KODY W/O MEDICAL MENTION IMAGING ASS OBSTRUCTION /GANGREN 7905 OTHER 11-01-2014 [facility] NONSPECIFIC MEDICAL ABNORMAL IMAGING ASS SERUM ENZYME LEVELS 7862 COUGH 10-30-2014 [facility] V5869 LONG-TERM 10-30-2014 [facility] (CURRENT) [facility] USE OF INC OTHER MEDICATIONS 11631 UNSPECIFIED 10-28-2014 [facility] OTALGIA [facility] 7224 DEGENERATIO 10-28-2014 [facility] N OF MEDICAL CERVICAL IMAGING ASS INTERVERTEB RAL DISC 7231 CERVICALGIA 10-28-2014 [facility] 04359 SENILE 06-23-2014 [facility] OSTEOPOROSI [facility] S INC 2689 UNSPECIFIED 05-20-2014 [facility] VITAMIN D [facility] DEFICIENCY INC 2724 OTHER AND 05-20-2014 [facility] UNSPECIFIED [facility]OS[facility] INC HYPERLIPIDE VICTORIANO 99396 OTHER 05-20-2014 [facility] OSTEOPOROSI [facility] S INC 10077 HYPERTENSIV 02-20-2014 [facility] E HEART [facility] DISEASE INC UNSPEC W/HEART FAIL 4660 ACUTE 02-20-2014 [facility] BRONCHITIS [facility] INC 490 BRONCHITIS 02-20-2014 [facility] NOT N EMERGENCY SPECIFIED PHYS ACUTE OR CHRONIC 50888 SWELLING OF 02-20-2014 [facility] N EMERGENCY PHYS 5853 CHRONIC 11-18-2013 [facility] DISEASE FOUNDATIO STAGE III (MODERATE) 586 UNSPECIFIED 10-29-2013 [facility] RENAL PHYSICIANS FAILURE [place] 7262 OTHER 05-30-2013 [facility] AFFECTIONS PHYSICIANS OF SHOULDER GROUP [place]ION NEC 37639 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-2013 [facility] 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 53420 DISORDER OF 05-21-2013 [facility] BONE AND MEDICAL CARTILAGE IMAGING ASS UNSPECIFIED V1559 PERSONAL 05-21-2013 [facility] HISTORY OF MEDICAL OTHER IMAGING ASS INJURY V4981 ASYMPTOMATI 05-21-2013 [facility] C MEDICAL POSTMENOPAU IMAGING ASS KEELY STATUS 61956 UNSPECIFIED 04-29-2013 [facility] VIRAL [facility]ERGENCY INFECTION SERVICES IN CCE & UNS SITE 4659 ACUTE URIS 04-29-2013 [facility] OF EMERGENCY UNSPECIFIED SERVICES SITE 31852 CRAMP OF 04-05-2013 [facility] LIMB PHYSICIANS [place] 7241 PAIN IN 01-16-2013 [facility] SPINE [facility] P 07165 ORTHOPNEA 01-16-2013 [facility] P 32767 OTHER 01-16-2013 [facility] DYSPNEA AND EMERGENCY SERVICES RESPIRATORY ABNORMALITI ES 7265 ENTHESOPATH 10-17-2012 [facility] Y OF HIP [facility] REGION INC 12978 PAIN IN 08-22-2012 [facility] JOINT MEDICAL PELVIC IMAGING ASS REGION AND THIGH 2749 GOUT, 07-16-2012 [place] [address] SHORTNESS 05-28-2012 [facility] CLINIC 4240 MITRAL 05-27-2012 [facility] DISORDERS INC 29839 OSTEOARTHRO 05-27-2012 [facility] S UNSPEC [facility] WHETHER INC GEN/LOC UNSPEC SITE 01516 CHEST PAIN 05-27-2012 [facility] UNSPECIFIED MEDICAL IMAGING ASS 68678 OTHER CHEST 05-27-2012 [facility] P 5859 CHRONIC 12-01-2011 [facility] KIDNEY [facility] DISEASE INC UNSPECIFIED 66830 HYPERSOMNIA 11-15-2011 JE[facility]-BAPTISTE WITH SLEEP [facility] APNEA UNSPECIFIED 80160 ANEMIA OF 10-30-2011 [facility] P DISEASE 2859 UNSPECIFIED 10-30-2011 [facility] ANEMIA [facility]Y SERVICES 04658 DEGEN 10-30-2011 [facility] THORACIC/TH MEDICAL ORACOLUMBAR IMAGING ASS INTERVERTEB RAL DISC 48902 DEGEN 10-30-2011 [facility] LUMBAR/LUMB MEDICAL OSACRAL IMAGING ASS INTERVERTEB RAL DISC 7242 LUMBAGO 10-30-2011 [facility] P 7245 UNSPECIFIED 10-30-2011 [facility] BACKACHE EMERGENCY SERVICES 7840 HEADACHE 10-30-2011 [facility] INC 88996 OTHER 10-20-2011 [facility] DISEASES OF MEDICAL LUNG NOT IMAGING ASS ELSEWHERE CLASSIFIED 5199 UNSPECIFIED 10-20-2011 [facility] DISEASE OF MEDICAL IMAGING ASS RESPIRATORY SYSTEM V5867 LONG-TERM 10-19-2011 [facility] USE OF [facility] P 3559 MONONEURITI 10-14-2011 [facility] S OF HOME UNSPECIFIED MEDICAL SITE EQUIPME 02198 OTHER 10-14-2011 [facility] MALAISE AND HOME FATIGUE MEDICAL EQUIPME 5180 PULMONARY 10-05-2011 [facility] COLLAPSE [facility]ICAL IMAGING ASS 22652 OTHER 09-30-2011 [facility] STAPHYLOCOC [facility] CUS INC INFECTION IN CCE & UNS SITE 2768 HYPOPOTASSE 09-30-2011 [facility] VICTORIANO [employer] 2888 OTHER 09-30-2011 [facility] SPECIFIED DISEASE OF ASSOCIATES, WHITE BLOOD PSC CELLS 4599 UNSPECIFIED 09-30-2011 [facility] CIRCULATORY INC SYSTEM DISORDER 486 PNEUMONIA, 09-30-2011 [facility] ORGANISM [facility] UNSPECIFIED INC 91213 OTHER 09-30-2011 [facility] SPECIFIED MEDICAL DISORDERS IMAGING ASS OF BLADDER 89958 OSTEOARTHRO 09-30-2011 [facility] SIS UNSPEC MEDICAL WHETHER IMAGING ASS GEN/LOC LOWER LEG 41247 EFFUSION OF 09-30-2011 [facility] LOWER LEG MEDICAL JOINT IMAGING ASS 7291 UNSPECIFIED 09-30-2011 [facility] MYALGIA [employer] MYOSITIS 7295 PAIN IN 09-30-2011 [facility] SOFT TISSUES OF ASSOCIATES, LIMB PSC 7821 RASH AND 09-14-2011 [facility] OTHER NONSPECIFIC ASSOCIATES, SKIN PSC ERUPTION V770 SCREENING 09-14-2011 [facility] FOR THYROID DISORDER ASSOCIATES, [facility] V7791 SCREENING 09-14-2011 [facility] FOR LIPOID DISORDERS ASSOCIATES, PSC 04068 DIAB 06-24-2011 [facility] W/NEURO MANIFESTS TYPE II/UNS NOT UNCNTRL 7038 OTHER 06-24-2011 [facility] MAR SPECIFIED DISEASE OF NAIL 55640 SECONDARY 03-29-2011 [facility] OSTEOARTHRO CLINIC PSC SIS LOWER LEG 38788 PAIN IN 03-29-2011 [facility] JOINT, [facility] LOWER LEG INC 36265 BACKGROUND 03-25-2011 [facility] DIABETIC VISION RETINOPATHY 82096 NUCLEAR 03-25-2011 [facility] SCLEROSIS VISION 7820 DISTURBANCE 02-09-2011 [facility] OF SKIN [facility] SENSATION INC 2767 HYPERPOTASS 02-07-2011 [facility] EMIA [facility]OCIATES 460 ACUTE 02-07-2011 [facility] NASOPHARYNG ASSOCIATES ITIS 6929 CONTACT 01-27-2011 [facility] DERMATITIS& EMERGENCY OTHER SERVICES ECZEMA DUE UNSPEC CAUSE 18412 PAIN IN 12-09-2010 [facility] JOINT, ASSOCIATES MULTIPLE SITES 11198 UNSPEC 10-28-2010 ALLRAN JR VENTRAL ELAINE KODY W/O MENTION OBST/GANGRE N 21409 ABDOMINAL 09-21-2010 [facility] PAIN, [facility] GENERALIZED INC 7831 ABNORMAL 08-24-2010 [facility] WEIGHT GAIN PHYSICIANS LA 5110 PLEURISY 07-18-2010 [facility] WITHOUT EMERGENCY MENTION SERVICES EFFUS/[place] [address] PAINFUL 07-18-2010 [facility] RESPIRATION [facility]ICAL IMAGING ASS 2721 PURE 07-08-2010 [facility] HYPERGLYCER PHYSICIANS IDEMIA [place] 7944 NONSPECIFIC 07-07-2010 [facility] ABNORM ASSOCIATES RESULTS KIDNEY FUNCTION STUDY 16747 ASTHMA, 06-16-2010 [facility] UNSPECIFIED EMERGENCY , SERVICES UNSPECIFIED STATUS 54948 DIAB 05-21-2010 PET[facility] LANNY W/OPHTH MANIFESTS TYPE II/UNS NOT UNCNTRL 8250 CLOSED 04-28-2010 [facility] FRACTURE OF [facility] CALCANEUS INC V5416 AFTERCARE 04-28-2010 [facility] HEALING MEDICAL TRAUMATIC IMAGING ASS FRACTURE LOWER LEG 8248 UNSPECIFIED 03-31-2010 [facility] CLOSED MEDICAL FRACTURE OF IMAGING ASS ANKLE 50294 OTHER ANKLE 03-31-2010 [facility] [employer] STR[facility] S INC 9596 INJURY 02-17-2010 [facility] OTHER AND MEDICAL UNSPECIFIED IMAGING ASS HIP AND THIGH 9597 INJURY 02-17-2010 [facility] OTHER&UNSPE MEDICAL CIFIED KNEE IMAGING ASS LEG ANKLE&FOOT 920 CONTUSION 02-16-2010 [facility] OF FACE EMERGENCY SCALP AND SERVICES NECK EXCEPT EYE 68228 CONTUSION 02-16-2010 [facility] OF HIP [facility] INC E8859 FALL FROM 02-16-2010 [facility] OTHER EMERGENCY SLIPPING SERVICES TRIPPING OR STUMBLING 26796 INSOMNIA 02-04-2010 [facility] UNSPECIFIED ASSOCIATES V0382 NEED PROPH 02-04-2010 [facility] VACCINATION ASSOCIATES AGAINST STREP PNEUMONE 80649 URINARY 11-04-2009 [facility] FREQUENCY ASSOCIATES 2811 OTHER 08-24-2009 [facility] VITAMIN B12 ASSOCIATES DEFICIENCY ANEMIA 514 PULMONARY 08-24-2009 [facility] CONGESTION ASSOCIATES AND HYPOSTASIS E8490 PLACE OF 07-10-2009 [facility] OCCURRENCE, MEDICAL HOME IMAGING ASSOCIATES 77676 GEN 04-15-2009 [facility] INVOLVING MULTIPLE SITES 7919 OTHER 03-31-2009 [facility] NONSPECIFIC [facility] FINDING INC EXAMINATION OF URINE 07637 NEPHRITIS&N 03-24-2009 [facility] EPHROPATHY PRIMARY W/OTH CARE CENTER PATHOLOG KIDNEY LES 53139 NOCTURIA 03-11-2009 [facility] 74398 HYPERSOMNIA 02-26-2009 [facility] UNSPECIFIED 65106 DIAB 11-28-2008 [facility] W/OPHMADONNA FLYNN A MANIFESTS TYPE II/UNS TYPE UNCNTRL 4619 ACUTE 06-17-2008 [facility] SINUSITIS, ASSOCIATES UNSPECIFIED 8082 CLOSED 03-18-2008 [facility] FRACTURE OF L REHAB PUBIS ASSOC PSC 7089 UNSPECIFIED 11-17-2007 [facility] URTICARIA ASSOCIATES 6868 OTH SPEC 11-12-2007 [facility] SKIN&SUBCUT PROF SERV TISSUE V642 SURG/OTH 11-11-2007 [facility] PROC NOT [facility] CARRIED OUT INC BECAUSE PTS DECN Immunization Name Date Route CVX Reacti Commen Provid Is Given on t er Refuse d PPSV23 FAMILY No 2009 CARE VACCIN ASSOCI E 2 ATES YRS OR OLDER FOR SUBQ/I M USE Procedures Procedure DOS Code Location Performer Comment SBSQ 74919 [facility] 7 PHYSICIAN CARE/DAY S GROUP 25 MINUTES GROUND A0425 [facility] PER SERVICE SERVICE STATUTE MILE AMBULANCE A0429 [facility] SERVICE 7 AMBULANCE AMBULANCE BLS SERVICE SERVICE EMERGENCY TRANSPORT ECG 09870 [facility] BARRETO JR ROUTINE 7 [facility] W/LEAST P 12 LDS I&R ONLY INITIAL 21997 [facility] 7 PHYSICIAN CARE/DAY S GROUP 70 MINUTES FLUOROSCO [id number] [facility] PY LEFT 7 [facility] HEART LOW INC INC OSMOLAR CONTRAST FLUORO [id number] [facility] BILATERAL 7 [facility] RENAL INC INC ART LOW OSMOLAR CONTRST DILAT [id number] AZCK D[facility] CORONARY 7 [facility] ART 2 ART INC INC 2 RX-ELUT [place] DEVC PERQ FLUORO [id number] [facility] MULTI 7 [facility] CORONARY INC INC ARTERIES LOW OSMOLAR CONT MEASUREME [id number] [facility] NT 7 [facility] CARDIAC INC INC SAMPLING PRESS LT HEART PERQ HEMOGLOBI 66260 [facility] N 6 [facility] H[facility] GLYCOSY[place] [address] [facility] THYROID 6 [facility] H[facility] STIMULATI INC INC NG HORMONE TSH LIPID 44917 [facility] PANEL 6 [facility] INC INC COMPREHEN 58616 [facility] SIVE 6 [facility]OS[facility] METABOLIC INC INC PANEL COLLECTIO 15483 [facility]ACKSHANDA DIXON N VENOUS 6 [facility] H[facility] BLOOD INC INC VENIPUNCT URE VOLUME 24938 COMBINED COMBINED MEASUREME 6 PHYSICIAN PHYSICIAN NT TIMED S LA S LA COLLECTIO N EACH RENAL 44583 COMBINED COMBINED FUNCTION 6 PHYSICIAN PHYSICIAN PANEL S LA S LA URNLS DIP 79184 COMBINED COMBINED 6 PHYSICIAN PHYSICIAN STICK/TAB S LA S LA LET REAGENT AUTO MICROSCOP Y 25 41762 COMBINED COMBINED HYDROXY 6 PHYSICIAN PHYSICIAN INCLUDES S LA S LA FRACTIONS IF PERFORMED BLOOD 82477 COMBINED COMBINED COUNT 6 PHYSICIAN PHYSICIAN COMPLETE S LA S LA AUTO&AUTO DIFRNTL WBC CULTURE 29329 COMBINED COMBINED BACTERIAL 6 PHYSICIAN PHYSICIAN S LA S LA QUANTTATI VE COLONY COUNT URINE CULTURE 12448 COMBINED COMBINED BCT 6 PHYSICIAN PHYSICIAN ISOL&PRSM S LA S LA PTV ID ISOLATE EA URINE [facility] A4258 ARRIVA ARRIVA WERED 6 MEDICAL CAR DEALER FOR LANCET 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 A4259 ARRIVA ARRIVA PER BOX 6 MEDICAL MEDICAL OF 100 NORMAL A4256 ARRIVA ARRIVA LOW AND 6 MEDICAL MEDICAL HIGH CALIBRATO R SOLUTION/ CHIPS BLD GLU A4253 ARRIVA ARRIVA TEST/REAG 6 MEDICAL MEDICAL T STRIPS HOME BLD GLU MON-50 COLLECTIO 08409 ZACK DIXON N VENOUS 6 [facility] BLOOD INC INC VENIPUNCT URE BASIC 60942 ZACK DIXON METABOLIC 6 [facility] PANEL INC INC [facility] G0378 ZACK DIX[facility] OBSERVATI 6 [facility] ON INC INC SERVICE PER HOUR GLUC BLD 72655 ZACK DIXON GLUC MNTR 6 [facility] DEV INC INC CLEARED FDA SPEC HOME USE GLUC BLD 56060 ZACK DIXON GLUC MNTR 6 [facility] DEV INC INC CLEARED FDA SPEC HOME USE BLOOD 08833 ZACK DIXON COUNT 6 [facility] COMPLETE INC INC AUTO&[place] [address] ZACK DIXON TROPONIN 6 [facility] QUANTITAT INC INC MARIBEL CREATINE 99999 ZACK DIXON KINASE 6 [facility] TOTAL INC INC [facility] G0378 ZACK DIXON OBSERVATI 6 [facility] ON INC INC SERVICE PER HOUR URNLS DIP 68177 ZACK DIXON 6 [facility] STICK/TAB INC INC LET REAGENT AUTO MICROSCOP Y CREATINE 04868 ZCAK DIXON KINASE MB 6 [facility] FRACTION INC INC ONLY COMPREHEN 14087 ZACK DIXON SIVE 6 [facility] METABOLIC INC INC PANEL AMB A0427 [facility] SERVICE 6 [facility] AMBULANCE ALS SERVICE SERVICE EMERGENCY TRANSPORT LEVEL 1 COLLECTIO 01436 ZACK DIXON N VENOUS 6 [facility] BLOOD INC INC VENIPUNCT URE PRESSURIZ 69643 ZACK DIXON ED/NONPRE 6 [facility] SSURIZED INC INC INHALATIO N TREATMENT GROUND A0425 [facility] 6 AMBULANCE AMBULANCE PER SERVICE SERVICE STATUTE MILE ECG 07496 ZACK MCLEAN ROUTINE [address] [facility] W/LEAST P 12 LDS I&R ONLY ECG 03865 ZACK DIXON ROUTINE 6 [facility] ECG INC INC W/LEAST 12 LDS TRCG ONLY W/O I&R THER 71380 ZACK DIXON PROPH/DX 6 [facility] MEM [...] EQUIPME EQUIPME RAIL W/MATTRSS STANDARD K0001 REID REIDJOHN DELGADILLOCHAI 6 HOME HOME R MEDICAL MEDICAL EQUIPME EQUIPME STANDARD K0001 REID REIDJONH CHAUDHARII 6 HOME HOME R MEDICAL MEDICAL [...] TYPE SIDE EQUIPME EQUIPME RAIL W/MATTRSS HEMOGLOBI 10210 [facility] N 6 [facility] GLYCOSYLA INC INC ALXE A1C BASIC 08181 ZACK DIXON METABOLIC 6 [facility] PANEL INC INC CALCIUM TOTAL LIPID 76170 Z[facility] DIXON PANEL 6 [facility] INC INC COLLECTIO 93714 ZACK DIXON N VENOUS 6 [facility] BLOOD INC INC VENIPUNCT URE STANDARD K0001 REID MATHEWS WATSONI 6 HOME HOME R MEDICAL MEDICAL EQUIPME EQUIPME HOS BED E0260 REIDJOHN MATHEWS SEMI-ELEC 6 HOME HOME W/ANY MEDICAL MEDICAL TYPE SIDE EQUIPME EQUIPME RAIL W/MATTRSS URNLS DIP 29673 Z[facility] DIXON 6 [facility] [...] ON INC INC SERVICE PER HOUR OBSERVATI 33264 [facility] WILL ON CARE 6 [facility] CHARMAINE DISCHARGE INTERNAL MEDI MANAGEMEN T GLUC BLD 71554 ZACK DIXON GLUC MNTR 6 [facility] DEV INC INC CLEARED FDA SPEC HOME USE GLUC BLD 75524 ZACK DIXON GLUC MNTR 6 [facility] DEV INC [place] [address] ZACK DIXON TROPONIN 6 [facility] QUANTITAT INC INC MARIBEL BLOOD 87810 ZACK DIXON COUNT 6 [facility] COMPLETE INC INC AUTO&AUTO DIFRNTL WBC COLLECTIO 30753 ZACK DIXON N VENOUS 6 [facility] BLOOD INC INC VENIPUNCT URE HOSP[facility] G0378 ZACK DIXON OBSERVATI 6 [facility] ON INC INC SERVICE PER HOUR BASIC 47725 ZACK DIXON METABOLIC 6 [facility] PANEL INC INC CALCIUM TOTAL AMB A0427 [facility] 6 [facility]ANCE AMBULANCE ALS SERVICE SERVICE EMERGENCY TRANSPORT LEVEL 1 INJECTION J2405 [facility]ACK DIXON 6 [facility] ONDANSETR INC INC ON HCL PER 1 [facility] G0378 Z[facility] DIXON OBSERVATI 6 [facility] ON INC INC SERVICE PER HOUR COMPREHEN 30274 ZACK DIXON SIVE 6 [facility] METABOLIC INC INC PANEL CREATINE 58183 ZACK DIXON KINASE MB 6 [facility] FRACTION INC INC ONLY URNLS DIP 57393 ZACK ELLIOTTON 6 [facility] STICK/TAB INC INC LET REAGENT AUTO MICROSCOP Y COLLECTIO 23403 ZACK ZACK N VENOUS 6 [facility] [place] [address] ZACK ELLIOTTON INFUSION 6 [facility] THERAPY/P INC INC ROPHYLAXI S /DX 1ST TO 1 HR THERAPEUT 53572 ZACK DIXON IC 6 [facility] INJECTION INC INC IV PUSH EACH NEW DRUG INITIAL [address] [facility] [address]AY [address] ON INTERNAL CARE/DAY MED 30 MINUTES GROUND A0425 [facility] PER SERVICE SERVICE STATUTE MILE RADIOLOGI 43265 ZACK DIXON C 6 [facility] EXAMINATI INC INC ON CHEST SINGLE VIEW FRONTAL ECG 10980 ZACK DIXON ROUTINE 6 [facility] ECG INC INC W/LEAST 12 LDS TRCG ONLY W/O I&[place] [address] ZACK DIXON HEAD/BRAI 6 [facility] N W/O INC INC CONTRAST MATERIAL ECG 42574 ZACK BARRETO JR ROUTINE [address] [facility] W/LEAST P 12 LDS I&R ONLY BLOOD 80652 ZACK DIXON COUNT 6 [facility] COMPLETE INC INC AUTO&[place] [address] ZACK DIXON TROPONIN 6 [facility] QUANTITAT INC INC MARIBEL GLUC BLD 78276 ZCAK DIXON GLUC MNTR 6 [facility] DEV INC INC CLEARED FDA SPEC HOME USE CREATINE 48061 ZACK DIXON KINASE 6 [facility] [place] [address] ZACK DIXON LIPASE 6 [place] [address] COMBINED COMBINED MAGNESIUM 6 PHYSICIAN PHYSICIAN S LA S LA CYANOCOBA 31604 COMBINED COMBINED SOHA 6 PHYSICIAN PHYSICIAN VITAMIN S [place] S LA B-12 [place] [address] COMBINED COMBINED PHOSPHORU 6 PHYSICIAN PHYSICIAN S S LA S LA INORGANIC ALBUMIN 11857 COMBINED COMBINED SERUM 6 PHYSICIAN PHYSICIAN PLASMA/WH S LA S LA OLE BLOOD BLOOD 39767 COMBINED COMBINED COUNT 6 PHYSICIAN PHYSICIAN COMPLETE S LA S LA AUTO&[place] [address] COMBINED COMBINED THYROID 6 PHYSICIAN PHYSICIAN STIMULATI [place] [address] COMBINED COMBINED BLOOD/URI 6 PHYSICIAN PHYSICIAN C ACID S LA S LA BASIC 04758 COMBINED COMBINED METABOLIC 6 PHYSICIAN PHYSICIAN PANEL S LA S LA CALCIUM TOTAL STANDARD K0001 REID LOMAS 6 HOME HOME R MEDICAL MEDICAL EQUIPME EQUIPME HOS BED E0260 REID MATHEWS SEMI-ELEC 6 HOME HOME W/ANY MEDICAL MEDICAL TYPE SIDE EQUIPME EQUIPME RAIL W/MATTRSS PHYS G0179 [facility] BESSON RE-CERT 6 [facility] TRACY MCR-COVR INTERNAL LIBERTY HL MED SRVC RE-CERT PRD COMPREHEN 62008 ZACK DIXON SIVE 6 [facility] METABOLIC INC INC PANEL URNLS DIP 07556 ZACK DIXON 6 [facility] STICK/TAB INC INC LET REAGENT AUTO MICROSCOP Y GROUND A0425 [facility] MILEAGE 6 AMBULANCE AMBULANCE PER SERVICE SERVICE STATUTE MILE AMBULANCE A0429 [facility] SERVICE 6 AMBULANCE AMBULANCE BLS SERVICE SERVICE EMERGENCY TRANSPORT BLOOD 85447 ZACK DIXON COUNT 6 [facility] COMPLETE INC INC AUTO&AUTO DIFRNTL WBC GLUC BLD 25773 ZACK DIXON GLUC MNTR 6 [facility] DEV INC INC CLEARED FDA SPEC HOME USE SBSQ 34992 [facility] B[facility] NURSING 6 [facility] TRACY FACIL INTERNAL CARE/DAY MED NEW PROBLEM 25 MIN SBSQ 03313 [facility] CHAPMAN NURSING 6 [facility] HOL FACIL INTERNAL CARE/DAY MEDI MINOR COMPLJ 15 MIN STANDARD K0001 REID CHAUDHARII 6 HOME HOME R MEDICAL MEDICAL EQUIPME EQUIPME HOS BED E0260 REID MATHEWS SEMI-ELEC 6 HOME HOME W/ANY MEDICAL MEDICAL TYPE SIDE EQUIPME EQUIPME RAIL W/MATTRSS RADEX 92932 SYMPHONY SYMPHONY SPINE 6 MOBILEX MOBILEX THORACIC 2 VIEWS RADEX 59382 SYMPHONY SYMPHONY SPINE 6 MOBILEX MOBILEX CERVICAL 2 OR 3 VIEWS SBSQ [address] [place] [address] INTERNAL CARE/DAY MED NEW PROBLEM 25 MIN STANDARD K0001 REID LOMAS 5 HOME HOME R MEDICAL MEDICAL EQUIPME EQUIPME HOS BED E0260 REID MATHEWS SEMI-ELEC 5 HOME HOME W/ANY MEDICAL MEDICAL TYPE SIDE EQUIPME EQUIPME RAIL W/MATTRSS SUSCEPTIB 42469 ZACK DIXON LTY STDY 5 [facility] ANTIMICRB INC INC IAL MICRO/AGA R DILUTJ NATRIURET 41235 ZACK DIXON IC 5 [facility] PEPTIDE INC INC CULTURE 65228 ZACK DIXON BACTERIAL 5 [facility] INC INC QUANTTATI VE COLONY COUNT URINE BLOOD 19383 ZACK DIXON COUNT 5 [facility] COMPLETE INC INC AUTO&AUTO DIFRNTL WBC AMB A0427 [facility] SERVICE 5 AMBULANCE AMBULANCE ALS SERVICE SERVICE EMERGENCY TRANSPORT LEVEL 1 COMPREHEN 42239 ZACK DIXON SIVE 5 [facility] METABOLIC INC INC PANEL URNLS DIP 97030 ZACK DIXON 5 [facility] STICK/TAB INC INC LET REAGENT AUTO MICROSCOP Y RADIOLOGI 48179 ZACK DIXON C EXAM 5 [facility] CHEST 2 INC INC VIEWS FRONTAL&L ATERAL GROUND A0425 [facility] MILEAGE 5 AMBULANCE AMBULANCE PER SERVICE SERVICE STATUTE MILE PRESSURIZ 33644 ZACK DIXON ED/NONPRE 5 [facility] SSURIZED INC INC INHALATIO N TREATMENT STANDARD K0001 REIDJOHN CHAUDHARIEnma 5 HOME HOME R MEDICAL MEDICAL EQUIPME EQUIPME HOS BED E0260 REID MATHEWS SEMI-ELEC 5 HOME HOME W/ANY MEDICAL MEDICAL TYPE SIDE EQUIPME EQUIPME RAIL W/MATTRSS SBSQ 43059 [facility] 5 CULAR MAT CARE/DAY CONSULTAN 25 TS O MINUTES ECHO 94618 [facility] TRANSTHOR 5 MEDICAL JUAN J C R-T 2D SERV W/WO FOUNDATIO M-MODE N REC F-UP/LMTD INITIAL 10740 [facility] 5 CULAR MAT CARE/DAY CONSULTAN 70 TS O MINUTES RADIOLOGI 75188 [facility] [facility] C EXAM 5 MEDICAL MELIDA CHEST 2 IMAGING VIEWS ASS FRONTAL&L ATERAL STANDARD K0001 REID REIDJOHN CHAUDHARII 5 HOME HOME R MEDICAL MEDICAL EQUIPME EQUIPME HOS BED E0260 REID REID SEMI-ELEC 5 HOME HOME W/ANY MEDICAL MEDICAL TYPE SIDE EQUIPME EQUIPME RAIL W/MATTRSS THERAPEUT 85839 ZACK DIXON IC PX 1/> 5 [facility] AREAS INC INC EACH 15 MIN EXERCISES LANCETS A4259 ARRIVA ARRIVA PER BOX 5 MEDICAL MEDICAL OF 100 BLD GLU A4253 ARRIVA ARRIVA TEST/REAG 5 MEDICAL MEDICAL T STRIPS HOME BLD GLU MON-50 NORMAL A4256 ARRIVA ARRIVA LOW AND 5 MEDICAL MEDICAL HIGH CALIBRATO R SOLUTION/ CHIPS URNLS DIP 86519 ZACK CALDERON 5 [facility] LET RGNT P NON-AUTO W/O MICRSCP THERAPEUT 09244 ZACK DIXON IC PX 1/> 5 [facility] AREAS INC INC EACH 15 MIN EXERCISES STANDARD K0001 REID MATHEWS ELIEELAINEI 5 HOME HOME R MEDICAL MEDICAL EQUIPME EQUIPME HOS BED E0260 REID GLASSRELL SEMI-ELEC 5 HOME HOME W/ANY MEDICAL MEDICAL TYPE SIDE EQUIPME EQUIPME RAIL W/MATTRSS THERAPEUT 15983 ZACK DIXON IC PX 1/> 5 [facility] AREAS INC INC EACH 15 MIN EXERCISES THERAPEUT 25340 ZACK DIXON IC PX 1/> 5 [facility] AREAS INC INC EACH 15 MIN EXERCISES COLLECTIO 32000 ZACK Yoo VENOUS 5 [facility] BLOOD INC INC VENIPUNCT URE RENAL 27767 ZACKSHANDA DIXON FUNCTION 5 [facility] PANEL INC INC URNLS DIP 05819 ZACK DIXON 5 [facility] STICK/TAB INC INC LET REAGENT AUTO MICROSCOP Y SUSCEPTIB 36685 ZACK ZACK LTY STDY 5 [facility] ANTIMICRB INC INC IAL MICRO/AGA R DILUTJ 25 44930 ZACKSHANDA DIXON HYDROXY 5 [facility] INCLUDES INC INC FRACTIONS IF PERFORMED BLOOD 51218 ZACK DIXON COUNT 5 [facility] COMPLETE INC INC AUTO&[place] [address] ZACK DIXON THYROID 5 [facility] STIMULATI INC INC NG HORMONE TSH CULTURE 24980 ZACK DIXON BACTERIAL 5 [facility] INC INC QUANTTATI VE COLONY COUNT URINE CULTURE 93636 ZACK DIXON BCT 5 [facility] ISOL&PRSM INC INC PTV ID ISOLATE EA URINE HEMOGLOBI 36444 ZACK DIXON N 5 [facility] GLYCOSYLA INC INC ALEX A1C THERAPEUT 42541 AZCK DIXON IC PX 1/> 5 [facility] AREAS INC INC EACH 15 MIN EXERCISES THERAPEUT 88302 ZACK DIXON IC PX 1/> 5 [facility] AREAS INC INC EACH 15 MIN EXERCISES THERAPEUT 08817 ZACK DIXON IC PX 1/> 5 [facility] AREAS INC INC EACH 15 MIN EXERCISES THERAPEUT 82048 ZACK DIXON IC PX 1/> 5 [facility] AREAS INC INC EACH 15 MIN EXERCISES PHYSICAL 90153 ZACK DIXON THERAPY 5 [facility] EVALUATIO INC INC N URNLS DIP 60387 ZACK CALDERON 5 [facility] LET RGNT P NON-AUTO W/O MICRSCP CULTURE 56973 ZACK DIXON BCT 5 [facility] ISOL&PRSM INC INC PTV ID ISOLATE EA URINE CULTURE 33545 ZACK DIXON BACTERIAL 5 [facility] INC INC QUANTTATI VE COLONY COUNT URINE CATH CLCT P9612 ZACK CALDERON SPECIMEN 5 [facility] PT ALL P PLACES SERVICE SUSCEPTIB 45930 ZACK DIXON LTY STDY 5 [facility] [...] HOME R MEDICAL MEDICAL EQUIPME EQUIPME ONELIA 85396 ZACK CALDERON POST-VOID 5 [facility] RESIDUAL P URINE&/BL ADDER CAP CULTURE 56230 ZACK DIXON BACTERIAL 5 [facility] INC INC QUANTTATI VE COLONY COUNT URINE CULTURE 67247 ZACK DIXON BCT 5 [facility] ISOL&PRSM INC INC PTV ID ISOLATE EA URINE SUSCEPTIB 28368 ZACK DIXON LTY STDY 5 [facility] ANTIMICRB INC INC IAL MICRO/AGA R DILUTJ RADIOLOGI 22690 SYMPHONY SYMPHONY C 5 MOBILEX MOBILEX EXAMINATI ON CHEST SING[place] FRONTAL RADIOLOGI 53308 SYMPHONY SYMPHONY C 5 MOBILEX MOBILEX EXAMINATI ON CHEST S[place] FRONTAL DEBRIDEME 75494 [facility] [place] NT NAIL 5 ARE ANDREZ ANY METHOD 6/> INITIAL 55714 [facility] [place] NURSING 5 ARE ANDREZ FACILITY CARE/DAY 25 MINUTES SBSQ 28308 [facility] BESSON NURSING 5 [facility] INTERNAL CARE/DAY MED NEW PROBLEM 25 MIN BASIC 98628 COMBINED COMBINED METABOLIC 5 PHYSICIAN PHYSICIAN PANEL S LA S LA CALCIUM TOTAL BLOOD 29497 COMBINED COMBINED COUNT 5 PHYSICIAN PHYSICIAN COMPLETE S LA S LA AUTO&[place] [address] [facility] HARPERINEKE ABDOMINAL 5 MEDICAL KAY REAL IMAGING TIME ASS W/[place] [address] [facility] ABDOMEN & 5 MEDICAL MELIDA PELVIS IMAGING W/O ASS CONTRAST MATERIAL RADIOLOGI 29053 [place] RODRIGUEZ ALL C 5 MEDICAL EXAMINATI IMAGING ON CHEST ASS SINGLE VIEW FRONTAL ECG 23653 ZACK MCLEAN ROUTINE [address] [facility] W/LEAST P 12 LDS I&R ONLY CRITICAL 84838 ZACK DIXON CARE 5 [facility] ED P P PATIENT INIT 30-74 MIN RADEX 15435 [place] FRANKY SPINE 5 MEDICAL KAY CERVICAL IMAGING 4 OR 5 ASS VIEWS RADEX 74504 [facility] 5 MEDICAL KAY COMPL IMAGING MINIMUM 3 ASS VIEWS [place] SIDE NORMAL A4256 ARRIVA ARRIVA LOW AND 5 MEDICAL MEDICAL HIGH CALIBRATO R SOLUTION/ CHIPS BLD GLU A4253 ARRIVA ARRIVA TEST/REAG 5 MEDICAL MEDICAL T STRIPS HOME BLD GLU MON-50 LANCETS A4259 ARRIVA ARRIVA PER BOX 5 MEDICAL MEDICAL OF 100 [facility] A4258 ARRIVA ARRIVA WERED 5 MEDICAL CAR [employer] FOR LANCET EACH COMPREHEN 72171 COMBINED COMBINED SIVE 5 PHYSICIAN PHYSICIAN METABOLIC S LA S LA PANEL RENAL 91368 ZACK DIXON FUNCTION 5 [facility] PANEL INC INC COLLECTIO 40330 ZACK DIXON N VENOUS 5 [facility] BLOOD INC INC VENIPUNCT URE THERAPEUT 42874 ZACK DIXON IC 5 [facility] PROPHYLAC INC INC TIC/DX INJECTION SUBQ/IM INJECTION J0897 ZACK DIXON 5 [facility] DENOSUMAB INC INC 1 MG DXA BONE 21544 ZACK DIXON DENSITY 4 [facility] STUDY 1/> INC INC SITES AXIAL SKEL RENAL 30385 ZACK DIXON FUNCTION 4 [facility] PANEL INC INC URNLS DIP 77809 ZACK DIXON 4 [facility] STICK/TAB INC INC LET REAGENT AUTO MICROSCOP Y CREATININ 99650 ZACK DIXON E OTHER 4 [facility] SOURCE INC INC COLLECTIO 63870 ZACK DIXON N VENOUS 4 [facility] BLOOD INC INC VENIPUNCT URE BLOOD 86423 ZACK ZACK COUNT 4 [facility] COMPLETE INC INC AUTO&AUTO DIFRNTL WBC CULTURE 41705 ZACK DIXON BCT 4 [facility] ISOL&PRSM INC INC PTV ID ISOLATE EA URINE CULTURE 25660 ZACK DIXON BACTERIAL 4 [facility] INC INC QUANTTATI VE COLONY COUNT URINE PROTEIN 92497 ZACK DIXON XCPT 4 [facility] REFRACTOM INC INC ETRY SERUM PLASMA/WH L BLD SUSCEPTIB 53697 ZACK DIXON LTY STDY 4 [facility] ANTIMICRB INC INC IAL MICRO/AGA R DILUTJ 25 61787 ZACK ZACK HYDROXY 4 [facility] INCLUDES [place] [address] ZACK DIXON PARATHORM 4 [facility] ONE INC INC COMPREHEN 34478 COMBINED COMBINED SIVE 4 PHYSICIAN PHYSICIAN METABOLIC S LA S LA PANEL COMPREHEN 70856 ZACK ELLIOTTON SIVE 4 [facility] METABOLIC INC INC PANEL CREATINE 61449 ZACK DIXON KINASE MB 4 [facility] FRACTION INC INC ONLY PRESSURIZ 65840 ZACK DIXON ED/NONPRE 4 [facility] SSURIZED INC INC INHALATIO N TREATMENT RADIOLOGI 67811 ZACK DIXON C EXAM 4 [facility] CHEST 2 INC INC VIEWS FRONTAL&L ATERAL CREATINE 71400 ZACK DIXON KINASE 4 [facility] [place] [address] ZACK DIXON TROPONIN 4 [facility] QUANTITAT INC INC MARIBEL URNLS DIP 57252 ZACK DIXON 4 [facility] STICK/TAB INC INC LET REAGENT AUTO MICROSCOP Y BLOOD 25517 ZACK DIXON COUNT 4 [facility] COMPLETE INC INC AUTO&AUTO DIFRNTL WBC BLOOD 62878 ZACK DIXON COUNT 4 [facility] COMPLETE INC INC AUTO&AUTO DIFRNTL WBC 25 10941 ZACK DIXON HYDROXY 4 [facility] INCLUDES INC INC FRACTIONS IF PERFORMED COLLECTIO 47318 ZACK DIXON N VENOUS 4 [facility] BLOOD INC INC VENIPUNCT URE RENAL 16471 ZACK DIXON FUNCTION 4 [facility] PANEL INC INC INJECTION J0897 ZACK DIXON 4 [facility] DENOSUMAB INC INC 1 MG THERAPEUT 36923 ZACK DIXON IC 4 [facility] PROPHYLAC INC INC TIC/DX INJECTION SUBQ/IM BASIC 72284 COMBINED COMBINED METABOLIC 4 PHYSICIAN PHYSICIAN PANEL S LA S LA CALCIUM TOTAL COMPREHEN 12146 COMBINED COMBINED SIVE 4 PHYSICIAN PHYSICIAN METABOLIC S LA S LA PANEL BASIC 42272 ZACK DIXON METABOLIC 4 [facility] PANEL INC INC CALCIUM TOTAL COLLECTIO 17654 ZACK DIXON N VENOUS 4 [facility] BLOOD INC INC VENIPUNCT URE INJECTION J0897 ZACK DIXON 4 [facility] DENOSUMAB INC INC 1 MG THERAPEUT 26577 ZACK DIXON IC 4 [facility] PROPHYLAC INC INC TIC/DX INJECTION SUBQ/IM INJ J0702 [facility] PET[facility]Y BETAMETHA 3 PHYSICIAN TONI SONE S GROUP ACETATE & PHOSPHATE 3 MG ARTHROCEN 82898 [facility] TESIS 3 PHYSICIAN TONI ASPIR&/IN S GROUP J MAJOR JT/BURSA W/O US INJECTION 49494 [facility] 1 TENDON 3 PHYSICIAN PHYSICIAN S GROUP S GROUP SHEATH/LI GAMENT APONEUROS IS DXA BONE 89453 [place] SHERI DENSITY 3 MEDICAL MELIDA STUDY 1/> IMAGING SITES ASS AXIAL SKEL BASIC 34243 COMBINED COMBINED METABOLIC 3 PHYSICIAN PHYSICIAN PANEL S LA S LA CALCIUM TOTAL COLLECTIO 84264 ZACK DIXON N VENOUS 3 [facility] BLOOD INC INC VENIPUNCT URE RENAL 04368 ZACK DIXON FUNCTION 3 [facility] PANEL INC INC URNLS DIP 02113 ZACK DIXON 3 [facility] STICK/TAB INC INC LET REAGENT AUTO MICROSCOP Y 25 08352 ZACK DIXON HYDROXY 3 [facility] INCLUDES INC [place] [address] ZACK DIXON PARATHORM 3 [facility] ONE INC INC BLOOD 61243 ZACK DIXON COUNT 3 [facility] COMPLETE INC INC AUTO&AUTO DIFRNTL WBC ALBUMIN 63514 ZACK DIXON URINE 3 [facility] MICROALBU [place] [address] ZACK DIXON STREPTOCO 3 [facility] CCUS INC INC GROUP A IAADI 49568 ZACK DIXON INFFLUENZ 3 [facility] A A VIRUS INC INC IAADI 12803 ZACK DIXON INFLUENZA 3 [facility] B VIRUS INC INC CUL BACT 88914 ZACK ZACK XCPT 3 [facility] URINE INC INC BLOOD/STO OL AEROBIC ISOL RADIOLOGI 06935 [place] SHERI John EXAM 3 MEDICAL MELIDA CHEST 2 IMAGING VIEWS ASS FRONTAL&[place] [address] COMBINED COMBINED BLOOD/URI 3 PHYSICIAN PHYSICIAN C ACID S LA S LA BASIC 47148 COMBINED COMBINED METABOLIC 3 PHYSICIAN PHYSICIAN PANEL S LA S LA CALCIUM TOTAL CREATINE 25443 ZACK DIXON KINASE MB 3 [facility] FRACTION INC INC ONLY COMPREHEN 37745 ZACK DIXON SIVE 3 [facility] METABOLIC INC INC PANEL RADIOLOGI 72438 ZACK DIXON C EXAM 3 [facility] CHEST 2 INC INC VIEWS FRONTAL&L ATERAL RADIOLOGI 25917 ZACK DIXON C 3 [facility] EXAMINATI INC INC ON CHEST SINGLE VIEW FRONTAL ECG 64158 ZACK DIXON ROUTINE 3 [facility] ECG INC INC W/LEAST 12 LDS TRCG ONLY W/O I&R THER 90325 ZACK DIXON PROPH/DX 3 [facility] NJX IV INC INC PUSH SINGLE/1S T SBST/DRUG RHYTHM 76007 ZACK DIXON ECG 1-3 3 [facility] LEADS INC INC TRACING ONLY W/O I&R ECG 55058 EMEKA LIRA ROUTINE 3 EMERGENCY ECG SERVICES W/LEAST 12 LDS I&R ONLY PULMONARY 21579 ZACK DIXON 3 [facility] VENTILATI INC INC ON & PERFUSION IMAGING FIBRIN 08171 ZACK DIXON DGRADJ 3 [facility] PRODUCTS INC INC D-DIMER QUAL/SEMI BARB TECHNETIU A9540 ZACK Flanagan TC-99M 3 [facility] MAA DX INC INC STDY DOSE UP TO 10 MCI CREATINE 50032 ZACK DIXON KINASE 3 [facility] TOTAL INC INC BLOOD 02859 ZACK DIXON COUNT 3 [facility] COMPLETE INC INC AUTO&AUTO DIFRNTL WBC TECHNETIU A9567 ZACK Flanagan TC-99M 3 [facility] PENTETATE INC INC DX AEROSOL TO [address] [place] [address] ZACK DIXON TROPONIN 3 [facility] QUANTITAT INC INC MARIBEL BLOOD 54185 ZACK DIXON COUNT 3 [facility] COMPLETE INC INC AUTO&AUTO DIFRNTL WBC RENAL 98821 ZACK DIXON FUNCTION 3 [facility] PANEL INC INC COLLECTIO 56022 ZACK DIXON N VENOUS 3 [facility] BLOOD INC INC VENIPUNCT URE INJECTION J0897 ZACK DIXON 3 [facility] DENOSUMAB INC INC 1 MG THERAPEUT 23182 ZACK DIXON IC 3 [facility] PROPHYLAC INC INC TIC/DX INJECTION SUBQ/IM APPLICATI 04276 ZACK DIXON ON 3 [facility] MODALITY INC INC 1/> AREAS HOT/COLD PACKS APPL 36096 ZACK DIXON MODALITY 3 [facility] 1/> AREAS INC INC 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 64831 ZACK DIXON IC PX 1/> 3 [facility] AREAS INC INC EACH 15 MIN EXERCISES E-STIM G0283 ZACK DIXON 1/> AREAS 3 [facility] OTH THAN INC INC WND CARE PART TX PLAN E-STIM G0283 ZACK DIXON 1/> AREAS 3 [facility] OTH THAN INC INC WND CARE PART TX PLAN THERAPEUT 33221 ZACK DIXON IC PX 1/> 3 [facility] AREAS INC INC EACH 15 MIN EXERCISES APPL 62383 ZACK DIXON MODALITY 3 [facility] 1/> AREAS INC INC 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 APPLICATI 48131 ZACK DIXON ON 3 [facility] MODALITY INC INC 1/> AREAS HOT/COLD PACKS APPLICATI 56178 ZACK DIXON ON 3 [facility] INC 1/> AREAS HOT/COLD PACKS APPL 47033 [facility] MODALITY [facility]/> ARE[facility] INC INC 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 06143 [facility] IC PX 1/> [facility] INC EACH 15 MIN EXERCISES E-STIM G0283 [facility] 1/> [facility]AS [facility] O[facility]AN INC INC WND CARE PART TX PLAN E-STIM G0283 [facility] 1/> [facility] INC INC WND CARE PART TX PLAN THERAPEUT 61548 [facility] IC PX 1/> 3 [facility] INC EACH 15 MIN EXERCISES APPL 73029 [facility] MODALITY 3 [facility]/> AREAS INC INC 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 APPLICATI 15330 [facility] ON 3 [facility] MODAL[facility] INC INC 1/> AREAS HOT/COLD PACKS THERAPEUT 62359 [facility] IC PX 1/> [facility] INC EACH 15 MIN EXERCISES E-STIM G0283 [facility] 1/> [facility] INC INC WND CARE PART TX PLAN E-STIM G0283 [facility] 1/> [facility] INC INC WND CARE PART TX PLAN THERAPEUT 60914 [facility] IC PX 1/> 3 [facility] INC EACH 15 MIN EXERCISES APPLICATI 42150 [facility] ON 3 [facility] INC 1/> AREAS HOT/COLD PACKS APPL 30709 [facility] MODALITY [facility]/> ARE[facility] INC INC 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 CULTURE 22767 COMBINED COMBINED BACTERIAL 3 PHYSICIAN PHYSICIAN S LA S LA QUANTTATI VE COLONY COUNT URINE APPL 84190 [facility] MODALITY 3 [facility]/> ARE[facility] INC INC 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 APPLICATI 19814 [facility] ON 3 [facility] INC INC 1/> AREAS HOT/COLD PACKS THERAPEUT 97319 [facility] D[facility] IC PX 1/> 3 [facility] INC EACH 15 MIN EXERCISES E-STIM G0283 [facility] 1/> AREAS 3 [facility] O[facility] INC INC WND CARE PART TX PLAN THERAPEUT 04915 [facility] IC PX 1/> 3 [facility] INC EACH 15 MIN EXERCISES THERAPEUT 85945 [facility] IC PX 1/> 3 [facility] INC EACH 15 MIN EXERCISES APPL 87611 [facility] MODALITY 3 [facility]/> AREAS INC INC ULTRASOUN D EA 15 MIN APPL 96389 [facility] MODALITY 3 [facility] 1/> AREAS INC INC 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 G0283 [facility] 1/> AREAS 3 [facility] O[facility] INC INC WND CARE PART TX PLAN E-STIM G0283 [facility] 1/> AREAS 3 [facility] INC INC WND CARE PART TX PLAN APPL 86543 [facility] MODALITY 3 [facility] 1/> AREAS INC INC 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 APPLICATI 03342 [facility] ON 3 [facility] INC 1/> AREAS HOT/COLD PACKS THERAPEUT 84841 [facility] IC PX 1/> 3 [facility] INC INC EACH 15 MIN EXERCISES THERAPEUT 55931 ZACK ZACK IC PX 1/> 3 [facility] INC INC EACH 15 MIN EXERCISES APPL 58307 [facility] MODALITY 3 [facility] 1/> AREAS INC INC 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 APPLICATI 90320 [facility] ON 3 [facility] INC INC 1/> AREAS HOT/COLD PACKS E-STIM G0283 [facility] 1/> AREAS 3 [facility] INC INC WND CARE PART TX PLAN E-STIM G0283 [facility] 1/> AREAS 3 [facility] INC INC WND CARE PART TX PLAN APPLICATI 41764 [facility] ON 3 [facility] INC INC 1/> AREAS HOT/COLD PACKS APPL 67650 [facility] MODALITY 3 [facility] 1/> AREAS INC INC 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 APPL 52613 [facility] MODALITY 3 [facility]/> AREAS INC INC ULTRASOUN D EA 15 MIN THERAPEUT 30067 [facility] D[facility] IC PX 1/> 3 [facility] INC EACH 15 MIN EXERCISES THERAPEUT 47808 [facility] D[facility] IC PX 1/> 3 [facility] INC EACH 15 MIN EXERCISES APPL 65597 [facility] MODALITY 3 [facility]/> AREAS INC INC ULTRASOUN D EA 15 MIN APPL 63276 [facility] MODALITY 3 [facility] 1/> AREAS INC INC 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 G0283 [facility] 1/> AREAS [facility] INC INC WND CARE PART TX PLAN E-STIM G0283 [facility] D[facility] 1/> AREAS [facility] INC INC WND CARE PART TX PLAN RENAL 81696 [facility]CTION [facility] PANEL INC INC URNLS DIP 37398 [facility] STICK/TAB INC INC [place] [address] ZACK DIX[facility] NEPHELOME 3 [facility] TRY EACH INC INC ANALYTE YANELY COLLECTIO 95604 Z[facility]IX[facility] N VENOUS 3 [facility] BLOOD INC INC VENIPUNCT URE APPL 97806 [facility] DIX[facility] MODALITY 3 [facility]/> AREAS INC INC 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 APPL 47919 [facility] DIX[facility] MODALITY 3 [facility]/> AREAS INC INC ULTRASOUN D EA 15 MIN THERAPEUT 58732 ZACK DIXON IC PX 1/> 3 [facility] AREAS INC INC EACH 15 MIN EXERCISES CULTURE 99578 [facility] BACTERIAL 3 [facility] INC INC QUANTTATI VE COLONY COUNT URINE CULTURE 39844 [facility] BCT 3 [facility] ISOL&PRSM INC INC PTV ID ISOLATE EA URINE BLOOD 23711 [facility] COUNT 3 [facility] COMPLETE INC INC AUTO&AUTO DIFRNTL WBC 25 07410 [facility]ACK [facility] HYDROXY 3 [facility] INCLUDES [place] [address] ZACK DIXON PARATHORM 3 [facility] ONE INC INC SUSCEPTIB 14161 ZACK DIXON LTY STDY 3 [facility] ANTIMICRB INC INC IAL MICRO/AGA R DILUTJ PROTEIN 70850 ZACK D[facility] ELECTROPH 3 [facility] ORETIC INC INC FRACTJ&QU ANTJ SERUM THERAPEUT 23446 ZACK DIXON IC PX 1/> 3 [facility] AREAS INC INC EACH 15 MIN EXERCISES APPL 21194 ZACK DIXON MODALITY 3 [facility]/> AREAS INC INC 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 APPLICATI 02518 [facility]IX[facility] ON [facility] MODALITY INC INC 1/> AREAS HOT/COLD PACKS E-STIM G0283 ZACK DIXON 1/> AREAS [facility] OTH THAN INC INC WND CARE PART TX PLAN E-STIM G0283 ZACK DIXON 1/> AREAS 3 [facility] OTH THAN INC INC WND CARE PART TX PLAN APPLICATI 32835 [facility]ACK DIX[facility] ON 3 [facility] MODALITY INC INC 1/> AREAS HOT/COLD PACKS APPL 40454 ZACK DIXON MODALITY 3 [facility]/> AREAS INC INC 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 87281 ZACK DIXON IC PX 1/> 3 [facility] AREAS INC INC EACH 15 MIN EXERCISES APPL 46645 ZACK DIXON MODALITY 3 [facility]/> AREAS INC INC ULTRASOUN D EA 15 MIN APPL 82569 ZACK DIXON MODALITY 3 [facility]/> AREAS INC INC ULTRASOUN D EA 15 MIN APPL 49015 ZACK DIXON MODALITY 3 [facility]/> AREAS INC INC 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 34431 ZACK DIXON IC PX 1/> 3 [facility] AREAS INC INC EACH 15 MIN EXERCISES E-STIM G0283 ZACK DIXON 1/> AREAS 3 [facility] OTH THAN INC INC WND CARE PART TX PLAN E-STIM G0283 ZACK DIXON 1/> AREAS 3 [facility] OTH THAN INC INC WND CARE PART TX PLAN THERAPEUT 63562 ZACK DIXON IC PX 1/> 3 [facility] AREAS INC INC EACH 15 MIN EXERCISES APPL 74933 ZACK DIXON MODALITY 3 [facility] 1/> AREAS INC INC ULTRASOUN D EA 15 MIN APPL 19678 ZACK DIXON MODALITY 3 [facility] 1/> AREAS INC INC 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 APPLICATI 84020 [facility]ACK [facility]IX[facility] ON 3 [facility] MODALITY INC INC 1/> AREAS HOT/COLD PACKS APPL 44790 ZACK DIXON MODALITY 3 [facility] 1/> AREAS INC INC 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 APPL 32009 ZACK DIXON MODALITY 3 [facility]/> AREAS INC INC ULTRASOUN D EA 15 MIN THERAPEUT 93079 ZACK DIXON IC PX 1/> 3 [facility] AREAS INC INC EACH 15 MIN EXERCISES BASIC 11614 COMBINED COMBINED METABOLIC 3 PHYSICIAN PHYSICIAN PANEL S LA S LA CALCIUM TOTAL E-STIM G0283 ZACK DIXON 1/> AREAS 3 [facility] OTH THAN INC INC WND CARE PART TX PLAN THERAPEUT 67031 ZACK DIXON IC PX 1/> 3 [facility] AREAS INC INC EACH 15 MIN EXERCISES APPL 10926 ZACK DIXON MODALITY 3 [facility] 1/> AREAS INC INC ULTRASOUN D EA 15 MIN APPL 12694 ZACK DIXON MODALITY 3 [facility] 1/> AREAS INC INC 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 APPL 38126 ZACK DIXON MODALITY 3 [facility] 1/> AREAS INC INC 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 APPL 40914 ZACK DIXON MODALITY 3 [facility] 1/> AREAS INC INC ULTRASOUN D EA 15 MIN E-STIM G0283 ZACK DIXON 1/> AREAS 3 [facility] OTH THAN INC INC WND CARE PART TX PLAN THERAPEUT 45026 ZACK DIXON IC PX 1/> 3 [facility] AREAS INC INC EACH 15 MIN EXERCISES E-STIM G0283 ZACK DIXON 1/> AREAS 3 [facility] OTH THAN INC INC WND CARE PART TX PLAN THERAPEUT 99500 ZACK DIXON IC PX 1/> 3 [facility] AREAS INC INC EACH 15 MIN EXERCISES APPL 78069 ZACK DIXON MODALITY 3 [facility] 1/> AREAS INC INC ULTRASOUN D EA 15 MIN APPLICATI 69773 ZACK DIXON ON 3 [facility] MODALITY INC INC 1/> AREAS HOT/COLD PACKS APPL 63848 ZACK DIXON MODALITY 3 [facility] 1/> AREAS INC INC ULTRASOUN D EA 15 MIN THERAPEUT 92600 ZACK DIXON IC PX 1/> 3 [facility] AREAS INC INC EACH 15 MIN EXERCISES E-STIM G0283 ZACK DIXON 1/> AREAS 3 [facility] OTH THAN INC INC WND CARE PART TX PLAN E-STIM G0283 ZACK DIXON 1/> AREAS 3 [facility] OTH THAN INC INC WND CARE PART TX PLAN THERAPEUT 37017 ZACK DIXON IC PX 1/> 3 [facility] AREAS INC INC EACH 15 MIN EXERCISES APPL 54460 ZACK DIXON MODALITY 3 [facility] 1/> AREAS INC INC 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 23174 ZACK DIXON IC PX 1/> 3 [facility] AREAS INC INC EACH 15 MIN EXERCISES APPLICATI 18102 ZACK DIXON ON 3 [facility] MODALITY INC INC 1/> AREAS HOT/COLD PACKS E-STIM G0283 ZACK DIXON 1/> AREAS 3 [facility] OTH THAN INC INC WND CARE PART TX PLAN E-STIM G0283 ZACK DIXON 1/> AREAS 3 [facility] OTH THAN INC INC WND CARE PART TX PLAN APPL 98678 ZACK DIXON MODALITY 3 [facility] 1/> AREAS INC INC 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 30023 ZACK DIXON IC PX 1/> 3 [facility] AREAS INC INC EACH 15 MIN EXERCISES APPL 36433 ZACK DIXON MODALITY 3 [facility] 1/> AREAS INC INC ULTRASOUN D EA 15 MIN THERAPEUT 34787 ZACK DIXON IC PX 1/> 3 [facility] AREAS INC INC EACH 15 MIN EXERCISES APPL 71233 ZACK DIXON MODALITY 3 [facility] 1/> AREAS INC INC 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 APPLICATI 57370 ZACK DIXON ON 3 [facility] MODALITY INC INC 1/> AREAS HOT/COLD PACKS APPL 84791 ZACK DIXON MODALITY 3 [facility] 1/> AREAS INC INC ULTRASOUN D EA 15 MIN E-STIM G0283 ZACK DIXON 1/> AREAS 3 [facility] OTH THAN INC INC WND CARE PART TX PLAN E-STIM G0283 ZACK DIXON 1/> AREAS 3 [facility] OTH THAN INC INC WND CARE PART TX PLAN APPL 00391 ZACK DIXON MODALITY 3 [facility] 1/> AREAS INC INC ULTRASOUN D EA 15 MIN APPLICATI 96274 ZACK DIXON ON 3 [facility] MODALITY INC INC 1/> AREAS HOT/COLD PACKS APPL 09177 ZACK DIXON MODALITY 3 [facility] 1/> AREAS INC INC 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 APPL 44080 ZACK DIXON MODALITY 3 [facility] 1/> AREAS INC INC 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 APPLICATI 21417 ZACK DIXON ON 3 [facility] MODALITY INC INC 1/> AREAS HOT/COLD PACKS APPL 70664 ZACK DIXON MODALITY 3 [facility] 1/> AREAS INC INC ULTRASOUN D EA 15 MIN THERAPEUT 98421 ZACK DIXON IC PX 1/> 3 [facility] AREAS INC INC EACH 15 MIN EXERCISES E-STIM G0283 ZACK DIXON 1/> AREAS 3 [facility] OTH THAN INC INC WND CARE PART TX PLAN E-STIM G0283 ZACK DIXON 1/> AREAS 3 [facility] OTH THAN INC INC WND CARE PART TX PLAN THERAPEUT 77680 ZACK DIXON IC PX 1/> 3 [facility] AREAS INC INC EACH 15 MIN EXERCISES APPL 24738 ZACK DIXON MODALITY 3 [facility] 1/> AREAS INC INC ULTRASOUN D EA 15 MIN APPLICATI 26413 ZACK DIXON ON 3 [facility] MODALITY INC INC 1/> AREAS HOT/COLD PACKS APPL 05332 ZACK DIXON MODALITY 3 [facility] 1/> AREAS INC INC 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 APPL 36987 ZACK ELLIOTTON MODALITY 3 [facility] 1/> AREAS INC INC 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 APPLICATI 88948 ZACK DIXON ON 3 [facility] MODALITY INC INC 1/> AREAS HOT/COLD PACKS APPL 59968 ZACK DIXON MODALITY 3 [facility] 1/> AREAS INC INC ULTRASOUN D EA 15 MIN PHYSICAL 73503 ZACK ZACK THERAPY 3 [facility] EVALUATIO INC INC N THERAPEUT 27858 ZACK DIXON IC PX 1/> 3 [facility] AREAS INC INC EACH 15 MIN EXERCISES RADEX HIP 60290 [facility] 3 MEDICAL MELIDA UNILATERA IMAGING L ASS COMPLETE MINIMUM 2 VIEWS BASIC 13073 COMBINED COMBINED METABOLIC 3 PHYSICIAN PHYSICIAN PANEL S [facility] [place] [address] COMBINED COMBINED BLOOD/URI 3 PHYSICIAN PHYSICIAN C ACID [facility] G0378 ZACK DIXON OBSERVATI 2 [facility] ON INC INC SERVICE PER HOUR BASIC 42673 ZACK DIXON METABOLIC 2 [facility] PANEL INC INC CALCIUM TOTAL COLLECTIO 44774 ZACK Yoo VENOUS 2 [facility] BLOOD INC INC VENIPUNCT URE BLOOD 00598 ZACK DIXON COUNT 2 [facility] COMPLETE INC INC AUTO&AUTO DIFRNTL WBC GLUC BLD 78694 ZACK DIXON GLUC MNTR 2 [facility] DEV INC INC CLEARED FDA SPEC HOME USE GLUC BLD 38438 ZACK DIXON GLUC MNTR 2 [facility] DEV INC [place] [address] ZACK DIXON TROPONIN 2 [facility] QUANTITAT INC INC MARIBEL TECHNETIU A9567 ZACK Flanagan TC-99M 2 [facility] PENTETATE INC INC DX AEROSOL TO 75 MCI BLOOD 88631 ZACK DIXON COUNT 2 [facility] COMPLETE INC INC AUTO&AUTO DIFRNTL WBC TECHNETIU A9540 ZACK ZACK M TC-99M 2 [facility] MAA DX INC INC STDY DOSE UP TO 10 MCI CREATINE 68356 ZACK DIXON KINASE 2 [facility] TOTAL INC INC PULMONARY 04324 LIZZ WADE 2 MEDICAL MELIDA VENTILATI IMAGING ON & ASS PERFUSION IMAGING NONINVASI 77333 ZACK DIXON VE 2 [facility] EAR/PULSE INC INC OXIMETRY SINGLE DETER ECHO 74739 [facility] TTHRC R-T 2 DINA MORA 2D CARDIOLOG W/WOM-MOD Y CLINIC E COMPL SPEC&COLR D BASIC 80815 ZACK DIXON METABOLIC 2 [facility] PANEL INC INC CALCIUM TOTAL COLLECTIO 99069 ZACK DIXON N VENOUS 2 [facility] BLOOD INC INC VENIPUNCT [facility] G0378 ZACK DIXON OBSERVATI 2 [facility] ON INC INC SERVICE PER HOUR CREATINE 59808 ZACK DIXON KINASE MB 2 [facility] FRACTION INC INC ONLY CREATINE 21385 ZACK DIXON KINASE MB 2 [facility] FRACTION INC INC ONLY URNLS DIP 51098 ZACK DIXON 2 [facility] STICK/TAB INC INC [facility] G0378 ZACK DIXON OBSERVATI 2 [facility] ON INC INC SERVICE PER HOUR BASIC 39218 ZACK DIXON METABOLIC 2 [facility] PANEL INC INC CALCIUM TOTAL ECG 02082 ZACK MCLEAN ROUTINE [address] [facility] W/LEAST P 12 LDS I&R ONLY ECG 85802 ZACK DIXON ROUTINE 2 [facility] ECG INC INC W/LEAST 12 LDS TRCG ONLY W/O I&R RADIOLOGI 47151 ZACK DIXON C EXAM 2 [facility] CHEST 2 INC INC VIEWS FRONTAL&L ATERAL THERAPEUT 08845 ZACK DIXON IC 2 [facility] PROPHYLAC INC INC TIC/DX INJECTION SUBQ/IM CREATINE 27930 ZACK DIXON KINASE 2 [facility] TOTAL INC INC FIBRIN 59788 ZACK DIXON DGRADJ 2 [facility] PRODUCTS INC INC D-DIMER QUAL/SEMI BARB BLOOD 63792 ZACK DIXON COUNT 2 [facility] COMPLETE INC INC AUTO&AUTO DIFRNTL WBC CULTURE 63280 ZACK DIXON BACTERIAL 2 [facility] BLOOD INC INC AEROBIC W/[place] [address] ZACK DIXON TROPONIN 2 [facility] QUANTITAT INC INC MARIBEL NATRIURET 18680 ZACK DIXON IC 2 [facility] PEPTIDE INC INC GLUC BLD 18606 ZACK DIXON GLUC MNTR 2 [facility] DEV INC INC CLEARED FDA SPEC HOME USE BLOOD 73435 ZACK DIXON COUNT 2 [facility] COMPLETE INC INC AUTO&AUTO DIFRNTL WBC COLLECTIO 26236 ZACK DIXON N VENOUS 2 [facility] BLOOD INC INC VENIPUNCT URE BASIC 53887 ZACK DIXON METABOLIC 2 [facility] PANEL INC INC CALCIUM TOTAL INJECTION J0897 ZACK DIXON 2 [facility] DENOSUMAB INC INC 1 MG THERAPEUT 52742 ZACK DIXON IC 2 [facility] PROPHYLAC INC INC TIC/DX INJECTION SUBQ/IM COLLECTIO 85243 ZACK DIXON N VENOUS 2 [facility] BLOOD INC INC VENIPUNCT URE DXA BONE 24000 [facility] 2 MEDICAL MELIDA STUDY 1/> IMAGING SITES ASS AXIAL SKEL URNLS DIP 23078 ZACK DIXON 2 [facility] STICK/TAB INC INC LET REAGENT AUTO MICROSCOP Y CREATININ 86533 ZACK DIXON E OTHER 2 [facility] SOURCE INC INC RENAL 88355 ZACK DIXON FUNCTION 2 [facility] PANEL INC INC BLOOD 18060 ZACK DIXON COUNT 2 [facility] COMPLETE INC INC AUTO&AUTO DIFRNTL WBC 25 86964 ZACK DIXON HYDROXY 2 [facility] INCLUDES INC INC FRACTIONS IF PERFORMED PROTEIN 40786 ZACK DIXON XCPT 2 [facility] REFRACTOM INC INC ETRY SERUM PLASMA/[place] [address] ZACK DIXON PARATHORM 2 [facility] MEM [...] EQUIPME W/POS ARWAY PRESS DEVICE CV STRS 88123 ZACK ZAPATA TST 2 [facility] XERS&/OR HOSPITAL RX CONT P ECG I&R ONLY CV STRS 32540 [facility] TST 2 PHYSICIAN XERS&/OR S GROUP RX CONT ECG W/O I&R MYOCARDIA 81211 [facility] SPECT 2 [facility] MULTIPLE CARDIOLOG STUDIES Y CLINIC POLYSOM 76348 ZACK DIXON 6/>YRS 2 [facility] SLEEP INC INC W/CPAP 4/> ADDL HARSHIL ATTND SUSCEPTIB 75812 ZACK DIXON LTY STDY 2 [facility] ANTIMICRB INC INC IAL MICRO/AGA R DILUTJ CULTURE 45271 ZACK DIXON BCT 2 [facility] ISOL&PRSM INC INC PTV ID ISOLATE EA URINE CULTURE 74487 ZACK DIXON BACTERIAL 2 [facility] INC INC QUANTTATI VE COLONY COUNT URINE PROTEIN 43051 ZACK DIXON XCPT 2 [facility] REFRACTOM INC INC ETRY SERUM PLASMA/WH L BLD 25 89752 ZACK DIXON HYDROXY 2 [facility] INCLUDES INC INC FRACTIONS IF PERFORMED BLOOD 38439 ZACK DIXON COUNT 2 [facility] COMPLETE INC INC AUTO&[place] [address] ZACK DIXON PARATHORM 2 [facility] ONE INC INC COLLECTIO 97201 ZACK DIXON N VENOUS 2 [facility] BLOOD INC INC VENIPUNCT URE CREATININ 75681 ZACK DIXON E OTHER 2 [facility] SOURCE INC INC URNLS DIP 41172 ZACK DIXON 2 [facility] STICK/TAB INC INC LET REAGENT AUTO MICROSCOP Y RENAL 23393 ZACK DIXON FUNCTION 2 [facility] PANEL INC INC LANCETS A4259 REID MATHEWS PER BOX 2 HOME HOME OF 100 MEDICAL MEDICAL EQUIPME EQUIPME POLYSOM 59112 ESTIVEN JEAN-BAPTISTE 6/>YRS 2 [facility] SLEEP 4/> ADDL HARSHIL ATTND BLD GLU A4253 REID MATHEWS TEST/REAG 2 HOME HOME T STRIPS MEDICAL MEDICAL HOME BLD EQUIPME EQUIPME GLU MON-50 POLYSOM 05467 ZACK DIXON 6/>YRS 2 [facility] SLEEP 4/> INC INC ADDL HARSHIL ATTND 3D 86592 ZACK DIXON RENDERING 2 [facility] W/INTERP INC INC & POSTPROCE SS SUPERVISI ON RADEX 38435 [facility] SPINE 2 MEDICAL MELIDA THORACIC IMAGING [address] [place] [address] ZACK DIXON HEAD/BRAI 2 [facility] N W/O INC INC CONTRAST MATERIAL RADIOLOGI 80423 ZACK DIXON C 2 [facility] EXAMINATI INC INC ON CHEST SINGLE VIEW FRONTAL ECG 17317 ZACK DIXON ROUTINE 2 [facility] ECG INC INC W/LEAST 12 LDS TRCG ONLY W/O I&R ECG 82298 EMEKA ALFORD ROUTINE 2 EMERGENCY III NANCY ECG SERVICES W/LEAST 12 LDS I&R ONLY RADEX 29885 LIZZ WADE SPINE 2 MEDICAL MELIDA LUMBOSACR IMAGING AL ASS MINIMUM 4 VIEWS CREATINE 83415 ZACK DIXON KINASE MB 2 [facility] FRACTION INC INC ONLY URNLS DIP 27722 ZACK ZACK 2 [facility] STICK/TAB INC INC LET REAGENT AUTO MICROSCOP Y BASIC 23863 ZACK DIXON METABOLIC 2 [facility] PANEL INC INC CALCIUM TOTAL CREATINE 43815 ZACK DIXON KINASE 2 [facility] TOTAL INC INC BLOOD 54521 ZACK DIXON COUNT 2 [facility] COMPLETE INC INC AUTO&[place] [address] ZACK DIXON TROPONIN 2 [facility] QUANTITAT INC INC MARIBEL IRON 60172 ZACK DIXON BINDING 2 [facility] [place] [address] ZACK DIXON IRON 2 [place] [address] ZACK DIXON FOLIC 2 [facility] ACID INC INC SERUM 25 77829 ZACK DIXON HYDROXY 2 [facility] INCLUDES INC [place] [address] ZACK DIXON PARATHORM 2 [facility] ONE INC INC CYANOCOBA 74375 ZACK DIXON SOHA 2 [facility] VITAMIN INC INC B-12 [place] [address] ZACK DIXON FERRITIN 2 [place] [address] ZACK DIXON PHOSPHORU 2 [facility] [place] [address] ZACK DIXON BLOOD/URI 2 [facility] C ACID INC INC BASIC 90506 ZACK DIXON METABOLIC 2 [facility] PANEL INC INC CALCIUM TOTAL RADIOLOGI 44382 LIZZ WADE C EXAM 2 MEDICAL MELIDA SKULL IMAGING COMPLETE ASS MINIMUM 4 VIEWS RADEX 47141 ZACK DIXNO SPINE 2 [facility] CERVICAL INC INC 6 OR MORE VIEWS IRRIGAJ 51357 ZCAK DIXON IMPLNTD 2 [facility] VENOUS INC INC ACCESS DRUG DELIVERY SYST GLUC BLD 14441 ZACK ZACK GLUC MNTR 2 [facility] DEV INC INC CLEARED FDA SPEC HOME USE GLUC BLD 26485 ZACKSHANDA DIXON GLUC MNTR 2 [facility] DEV INC INC CLEARED FDA SPEC HOME USE BLOOD 70104 ZACK DIXON COUNT 2 [facility] COMPLETE INC INC AUTO&AUTO DIFRNTL WBC NONINVASI 47220 ZACK DIXON VE 2 [facility] EAR/PULSE INC INC OXIMETRY SINGLE DETER BASIC 90240 ZACK DIXON METABOLIC 2 [facility] PANEL INC INC [facility] G0378 ZACK DIXON OBSERVATI 2 [facility] ON INC INC SERVICE PER HOUR [facility] G0378 ZACK DIXON OBSERVATI 2 [facility] ON INC INC SERVICE PER HOUR TECHNETIU A9567 ZACK DIXON M TC-99M 2 [facility]OSP PENTETATE INC INC DX AEROSOL TO 75 MCI CREATINE 92219 ZACK DIXON KINASE MB 2 [facility] FRACTION INC INC ONLY BASIC 64138 ZACK DIXON METABOLIC 2 [facility] PANEL INC INC CALCIUM TOTAL NONINVASI 00384 ZACK DIXON VE 2 [facility] EAR/PULSE INC INC OXIMETRY SINGLE DETER INITIAL 60963 [facility] 2 PHYSICIAN CARE/DAY S GROUP 50 MINUTES PULMONARY 68505 [facility] 2 MEDICAL MELIDA VENTILATI IMAGING ON & ASS PERFUSION IMAGING RADIOLOGI 94370 [facility] EXAM 2 MED[facility] CHEST 2 IMAGING VIEWS ASS FRONTAL&L ATERAL ECG 10199 ZACK DIXON ROUTINE 2 [facility] ECG INC INC W/LEAST 12 LDS TRCG ONLY W/O I&R ECG 73066 ZACK MCLEAN ROUTINE [address] [facility] W/LEAST P 12 LDS I&R ONLY ECHO 42547 [facility] T[facility]-T 2 DINA MORA 2D CARDIOLOG W/WOM-MOD Y CLINIC E COMPL SPEC&COLR D BLOOD 38104 ZACK ZACK COUNT 2 [facility] COMPLETE INC INC AUTO&AUTO DIFRNTL WBC GLUC BLD 14831 ZACK DIXON GLUC MNTR 2 [facility] DEV INC INC CLEAR[place] [address] ZACK ZACK TROPONIN 2 [facility] QUANTITAT INC INC MARIBEL TECHNETIU A9540 ZACK DIXON M TC-99M 2 [facility] MAA DX INC INC STDY DOSE UP TO 10 MCI CREATINE 50829 ZACK DIXON KINASE 2 [facility] TOTAL INC INC CREATINE 07246 ZACK DIXON KINASE 2 [facility] TOTAL INC INC SUSCEPTIB 68990 ZACK DIXON LTY STDY 2 [facility] ANTIMICRB INC INC IAL MICRO/AGA R DILUTJ FIBRIN 92463 ZACK ELLIOTTON DGRADJ 2 [facility] PRODUCTS INC INC D-DIMER QUAL/[place] [address] ZACK D[facility]ON TROPONIN 2 [facility] QUANTITAT INC INC MARIBEL NATRIURET 86446 ZACK DIXON IC 2 [facility] PEPTIDE INC INC CULTURE 69921 [facility]ACK [facility]IXON BCT 2 [facility] ISOL&PRSM INC INC PTV ID ISOLATE EA URINE BLOOD 98100 [facility]ACK DIX[facility] COUNT 2 [facility] COMPLETE INC INC AUTO&AUTO DIFRNTL WBC CULTURE 22139 [facility] BACTERIAL 2 [facility] BLOOD INC INC AEROBIC W/ID ISOLATES ECG 65877 EMEKA WILCOX ROUTINE 2 EMERGENCY [facility] ECG SERVICES W/LEAST 12 LDS I&R ONLY ECG 03775 ZACK DIXON ROUTINE 2 [facility] ECG INC INC W/LEAST 12 LDS TRCG ONLY W/O I&R RADIOLOGI 16078 LIZZ Lopez 2 MEDICAL MELIDA EXAMINATI IMAGING ON CHEST ASS SING[place] FRONTAL THERAPEUT 27748 [facility] IC 2 [facility] PROPHYLAC INC INC TIC/DX INJECTION SUBQ/IM CREATINE 81176 ZACK DIXON KINASE MB 2 [facility] FRACTION INC INC ONLY COMPREHEN 18050 [facility] DIX[facility] SIVE 2 [facility] METABOLIC INC INC PANEL URNLS DIP 59320 [facility]ACK DIXON 2 [facility] STICK/TAB INC INC LET REAGENT AUTO MICROSCOP Y CULTURE 13248 ZACK DIXON BACTERIAL 2 [facility] MEM [...] INC INC NOT ELSEWHERE CLASSIFIE D RADIOLOGI 25723 [place] [facility]I C 2 MEDICAL MELIDA EXAMINATI IMAGING ON CHEST ASS SINGLE VIEW FRONTAL RADIOLOGI 12147 [facility] C EXAM 2 MEDICAL MELIDA CHEST 2 IMAGING VIEWS ASS FRONTAL&L ATERAL RADIOLOGI 17835 [facility] C EXAM 2 MEDICAL MELIDA CHEST 2 IMAGING VIEWS ASS FRONTAL&L ATERAL RADIOLOGI 30736 [place] [facility] C 2 MEDICAL MELIDA EXAMINATI IMAGING ON KNEE 3 ASS VIEWS HANDLG&/O 59749 FAMILY POLAL R CONVEY 2 CARE CRI OF SPEC ASSOCIATE FOR TR S, [facility] [place] [address] [place] [facility] RETROPERI 2 MEDICAL MELIDA TONEAL IMAGING REAL TIME ASS W/IMAGE COMPLETE COLLECTIO 19758 FAMILY POLAL N VENOUS 2 CARE CRI BLOOD ASSOCIATE VENIPUNCT S, [facility] URE ANTINUCLE 78285 LAB ZOEY LAB ZOEY AR 2 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 YUNG RHEUMATOI 77643 COMBINED COMBINED D FACTOR 2 PHYSICIAN PHYSIC[place] [address] COMBINED COMBINED BLOOD/URI 2 PHYSICIAN PHYSICIAN C ACID S LA S LA COMPREHEN 20702 COMBINED COMBINED SIVE 2 PHYSICIAN PHYSICIAN METABOLIC S LA S LA PANEL SEDIMENTA 25338 COMBINED COMBINED TION RATE 2 PHYSICIAN PHYSICIAN RBC S LA S LA NON-AUTOM ATED CYANOCOBA 00969 COMBINED COMBINED SOHA 2 PHYSICIAN PHYSICIAN VITAMIN S LA S LA B-12 BLOOD 24643 FAMILY STRAWZELL COUNT 2 CARE CRI COMPLETE ASSOCIATE AUTO&AUTO S, [place] [address] COMBINED COMBINED THYROID 2 PHYSICIAN PHYSICIAN STIMULATI S LA S LA NG HORMONE TSH 25 66738 COMBINED COMBINED HYDROXY 2 PHYSICIAN PHYSICIAN INCLUDES S LA S LA FRACTIONS IF PERFORMED HEMOGLOBI 09397 FAMILY STRAWZELL N 2 CARE CRI GLYCOSYLA ASSOCIATE ALEX A1C S, PSC COMPREHEN 53284 COMBINED COMBINED SIVE 2 PHYSICIAN PHYSICIAN METABOLIC S LA S LA PANEL LIPID 74103 FAMILY STRAWZELL PANEL 2 CARE CRI ASSOCIATE S, PSC COLLECTIO 04090 FAMILY STRAWZELL N VENOUS 2 CARE CRI BLOOD ASSOCIATE VENIPUNCT S, PSC URE HANDLG&/O 84064 FAMILY STRAWZELL R CONVEY 2 CARE CRI OF SPEC ASSOCIATE FOR TR S, PSC OFFICE TO LAB DUP-SCAN 49689 ZACK DIXON XTR VEINS 2 [facility] INC INC UNILATERA L/LIMITED STUDY RADIOLOGI 03564 ZACK DIXON C EXAM 2 [facility] CHEST 2 INC INC VIEWS FRONTAL&L ATERAL COLLECTIO 90551 ZACK DIXON N VENOUS 2 [facility] BLOOD INC INC VENIPUNCT URE RENAL 08795 ZACK DIXON FUNCTION 2 [facility] PANEL INC INC URNLS DIP 46945 ZACK DIXON 2 [facility] STICK/TAB INC INC LET REAGENT AUTO MICROSCOP Y HEPATIC 34154 ZACK DIXON FUNCTION 2 [facility] PANEL INC INC BLOOD 14617 ZACK DIXON COUNT 2 [facility] COMPLETE INC INC AUTO&AUTO DIFRNTL WBC DEBRIDEME 11793 PAWSAT PAWSAT NT NAIL 2 MAR MAR ANY METHOD 1-5 THERAPEUT 91530 ZACK DIXON IC 1 [facility] HOSP PROPHYLAC INC INC TIC/DX INJECTION SUBQ/IM COLLECTIO 02344 ZACK DIXON N VENOUS 1 [facility] BLOOD INC INC VENIPUNCT URE BASIC 63985 ZACK DIXON METABOLIC 1 [facility] PANEL INC INC CALCIUM TOTAL BASIC 69137 ZACK ZACK METABOLIC 1 [facility] PANEL INC INC CALCIUM TOTAL COLLECTIO 91213 ZACK DIXON N VENOUS 1 [facility] BLOOD INC INC VENIPUNCT URE THERAPEUT 27385 ZACK DIXON IC 1 [facility] PROPHYLAC INC INC TIC/DX INJECTION SUBQ/IM COLLECTIO 98120 ZACK DIXON N VENOUS 1 [facility] BLOOD INC INC VENIPUNCT URE URNLS DIP 65231 ZACKSHANDA DIXON 1 [facility] STICK/TAB INC INC LET REAGENT AUTO MICROSCOP Y CREATININ 76805 ZACK ZACK E OTHER 1 [facility] SOURCE INC INC RENAL 21355 ZACKSHANDA DIXON FUNCTION 1 [facility] PANEL INC INC BLOOD 18852 ZACK DIXON COUNT 1 [facility] COMPLETE INC INC AUTO&AUTO DIFRNTL WBC 25 52361 ZACK DIXON HYDROXY 1 [facility] INCLUDES INC INC FRACTIONS IF PERFORMED PROTEIN 68874 ZACK DIXON XCPT 1 [facility] REFRACTOM INC INC ETRY SERUM PLAS[place] [address] ZACK DIXON PARATHORM 1 [facility] ONE INC INC PROTEIN 56395 ZACK DIXON ELECTROPH 1 [facility] ORETIC INC INC FRACTJ&QU ANTJ SERUM COLLECTIO 13475 ZACK DIXON N VENOUS 1 [facility] BLOOD INC INC VENIPUNCT URE BASIC 95649 ZACK DIXON METABOLIC 1 [facility] PANEL INC INC CALCIUM TOTAL ARTHROCEN 91238 [place] SON TESIS 1 [facility]IP[facility] ASPIR&/IN CLINIC J MAJOR PSC JT/BURSA W/O US RADIOLOGI 02747 ZACKSHANDA DIXON C EXAM 1 [facility] BOTH INC INC KNEES STANDING ANTEROPOS T INJECTION J1030 [place] SON 1 [facility] DNISOLONE PSC AC[place] [address] [place] [address] ZACK DIXON RETROPERI 1 [facility] TONEAL INC INC REAL TIME W/IMAGE COMPLETE DXA BONE 82637 ZACK DIXON DENSITY 1 [facility] STUDY 1/ INC INC SITES AXIAL SKEL OPHTH 38768 ARYAN PETERS [facility] 1 VISION XM&EVAL COMPRHNSV ESTAB PT 1/> NON-INVAS 54135 [facility] WADE MARIBEL 1 MEDICAL MELIDA PHYSIOLOG IMAGING IC STUDY ASS EXTREMITY 3 LEVLS BASIC 66146 COMBINED COMBINED METABOLIC 1 PHYSICIAN PHYSICIAN [place] [address] COMBINED COMBINED PHOSPHORU 1 PHYSICIAN [place] [address] COMBINED COMBINED PARATHORM 1 PHYSICIAN PHYSICIAN ONE S LA S LA 25 47593 COMBINED COMBINED HYDROXY 1 PHYSICIAN PHYSICIAN INCLUDES S LA S LA FRACTIONS IF PERFORMED LANCETS A4259 REID MATHEWS PER BOX 1 HOME MED HOME MED OF 100 EQUIP. L EQUIP. L BLD GLU A4253 REID MATHEWS TEST/REAG 1 HOME MED HOME MED T STRIPS EQUIP. L EQUIP. L HOME BLD GLU MON-50 3D 29154 [facility] BRIANSHERI RENDERING 1 MEDICAL MELIDA IMAGING W/INTERP& [place] [address] [facility] WADE ABDOMEN 1 MEDICAL MELIDA W/O IMAGING CONTRAST ASS MATERIAL COLLECTIO 65970 ZACK DIXON N VENOUS 1 [facility] [place] [address] ZACK ZACK UREA 1 [facility] NITROGEN INC INC QUANTITAT MARIBEL CREATININ 18548 ZACK DIXON E BLOOD 1 [facility] INC INC TECHNETIU A9537 ZACK Flanagan TC-99M 1 [facility] MEBROFENI INC INC N DX UP TO 15 MCI HEPATBL 73387 [place] SHERI DUX SYS 1 [place]ICAL [place] [address] [place] SHERI ABDOMINAL 1 MEDICAL MELIDA REAL IMAGING TIME ASS W/IMAGE LIMITED COLLECTIO 51031 COMBINED COMBINED N VENOUS 1 PHYSICIAN PHYSICIAN BLOOD S LA S LA VENIPUNCT URE COMPREHEN 34178 COMBINED COMBINED SIVE 1 PHYSICIAN PHYSICIAN METABOLIC S LA S LA PANEL COMPREHEN 64636 COMBINED COMBINED SIVE 1 PHYSICIAN PHYSICIAN [place] [address] COMBINED COMBINED AMYLASE 1 PHYSICIAN PHYSICIAN S LA S LA COLLECTIO 50969 FAMILY MULBERRY N VENOUS 1 CARE NILO BLOOD ASSOCIATE VENIPUNCT S URE HEMOGLOBI 90590 FAMILY MULBERRY N 1 CARE NILO GLYCOSYLA [place] [address] COMBINED COMBINED THYROID 1 PHYSICIAN PHYSICIAN STIMULATI S LA S LA NG HORMONE TSH BLOOD 90876 FAMILY MULBERRY COUNT 1 CARE NILO COMPLETE ASSOCIATE AUTO&[place] [address] LAB ZOEY LAB ZOEY LIPASE 1 [employer] RADIOLOGI 37464 [place] MICH EXAM 1 MEDICAL CARLOS CHEST 2 IMAGING VIEWS ASS FRONTAL&L ATERAL BASIC 00837 COMBINED COMBINED METABOLIC 1 PHYSICIAN PHYSICIAN PANEL S LA S LA CALCIUM TOTAL COLLECTIO 21859 FAMILY BRENDAN J N VENOUS 1 CARE BLOOD ASSOCIATE VENIPUNCT S URE URNLS DIP 46556 ZACK DIXON 0 [facility] STICK/TAB INC INC LET REAGENT AUTO MICROSCOP Y RADIOLOGI 73328 ZACK DIXON C EXAM 0 [facility] CHEST 2 INC INC VIEWS FRONTAL&L ATERAL PRESSURIZ 26630 ZACK DIXON ED/NONPRE 0 [facility] SSURIZED INC INC INHALATIO N TREATMENT IAADI 86324 ZACK DIXON INFLUENZA 0 [facility] B VIRUS INC INC IAADI 69075 ZACK DIXON INFFLUENZ 0 [facility] [place] [address] ZACK DIXON STREPTOCO 0 [facility] [place] [address] COMBINED COMBINED THYROID 0 PHYSICIAN PHYSICIAN STIMULATI S LA S LA NG HORMONE TSH COMPREHEN 45553 COMBINED COMBINED SIVE 0 PHYSICIAN PHYSICIAN METABOLIC S LA S LA PANEL COLLECTIO 82788 FAMILY FAMILY N VENOUS 0 CARE CARE BLOOD ASSOCIATE ASSOCIATE VENIPUNCT S S URE FUNDUS 09323 PETERS LANNY PETERS LANNY PHOTOGRAP 0 HY W/INTERPR ETATION & REPORT OPHTH 01912 PETERS LANNY ROBERTSONNES LANNY MEDICAL 0 XM&EVAL COMPRHNSV ESTAB PT 1/> DIAB ONLY A5500 WELLNESS WELLNESS FIT CSTM 0 LIFE LIFE PREP&SPL SYSTEMS SYSTEMS [employer] DNSITY INSRT FOR DIAB A5513 WELLNESS WELLNESS ONLY MX 0 LIFE LIFE DNSITY SYSTEMS SYSTEMS INSRT [facility] CSTM MOLD CSTM EA RADIOLOGI 59585 [place] SHERI C 0 MEDICAL MELIDA EXAMINATI IMAGING ON ANKLE ASS 2 VIEWS RADIOLOGI 33941 [place] SHERI C 0 MEDICAL MELIDA EXAMINATI IMAGING ON ANKLE ASS 2 VIEWS WALKING L4360 [employer] BOOT 0 TECHNOLOG TECHNOLOG PNEUMATC IES INC IES INC &/ VACUUM PREFAB CUSTM FIT RADIOLOGI 50854 ZACK DIXON C 0 [facility] EXAMINATI INC INC ON FOOT 2 VIEWS RADEX 99077 [place] SHERI FOOT 0 MEDICAL MELIDA COMPLETE IMAGING MINIMUM 3 ASS VIEWS RADEX 42183 [place] SHERI FOOT 0 MEDICAL MELIDA COMPLETE IMAGING MINIMUM 3 [place] [address] [facility] PETTEY 0 PHYSICIAN JAM CALCANEAL S GROUP FRACTURE W/O MANIPULAT ION RADEX 31307 [place] SHER[place] CALCANEUS 0 MEDICAL MELIDA MINIMUM IMAGING 2 VIEWS ASS RADIOLOGI 01883 [place] SHERI C 0 MEDICAL MELIDA EXAMINATI IMAGING ON PELVIS ASS 1/2 VIEWS RADIOLOGI 64121 [place] SHERI C 0 MEDICAL MELIDA EXAMINATI IMAGING ON TIBIA ASS & FIBULA 2 VIEWS GROUND A0425 [facility] MILEAGE 0 AMBULANCE AMBULANCE PER SERVICE SERVICE STATUTE MILE AMBULANCE A0429 [facility] SERVICE 0 AMBULANCE AMBULANCE BLS SERVICE [place] [address] [facility] 0 EMERGENCY CHIDI CALCANEAL SERVICES FRACTURE W/O MANIPULAT ION GLUCOSE 79598 FAMILY MULBERRY POST 0 CARE NILO GLUCOSE ASSOCIATE DOSE S COLLECTIO 34144 FAMILY MULBERRY N VENOUS 0 CARE NILO BLOOD ASSOCIATE VENIPUNCT S URE ADMINISTR G0009 FAMILY MULBERRY ATION OF 0 CARE NILO PNEUMOCOC ASSOCIATE JORDYN S VACCINE PPSV23 12354 FAMILY FAMILY VACCINE 2 0 CARE CARE YRS OR ASSOCIATE ASSOCIATE OLDER FOR S S SUBQ/IM USE HEMOGLOBI 75310 FAMILY MULBERRY N 0 CARE NILO GLYCOSYLA ASSOCIATE ALEX A1C S 25 35607 LAB ZOEY LAB ZOEY HYDROXY 0 AMERIC AMERIC INCLUDES [employer]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 IF PERFORMED BLOOD 43675 FAMILY MULBERRY COUNT 0 CARE NILO COMPLETE ASSOCIATE AUTO&[place] [address] COMBINED COMBINED IRON 0 PHYSICIAN PHYSICIAN S LAB S LAB CYANOCOBA 48389 COMBINED COMBINED SOHA 0 PHYSICIAN PHYSICIAN VITAMIN S LAB S LAB B-12 [place] [address] COMBINED COMBINED FERRITIN 0 PHYSICIAN PHYSICIAN S LAB S LAB COMPREHEN 87342 COMBINED COMBINED SIVE 0 PHYSICIAN PHYSICIAN METABOLIC S LAB S LAB PANEL LIPID 49573 COMBINED COMBINED PANEL 0 PHYSICIAN [place] [address] COMBINED COMBINED FOLIC 0 PHYSICIAN PHYSICIAN ACID S LAB S LAB SERUM COLLECTIO 82847 FAMILY MULBERRY, N VENOUS 0 CARE CLEO T BLOOD ASSOCIATE VENIPUNCT S URE HEMOGLOBI 21164 FAMILY MULBERRY, N 0 CARE CLEO T GLYCOSYLA ASSOCIATE ALEX A1C S BLOOD 34990 FAMILY ELIAS, COUNT 0 CARE CLEO T COMPLETE ASSOCIATE AUTO&AUTO S DIFRNTL WBC BLOOD 65368 FAMILY ELIAS, COUNT 0 CARE CLEO T COMPLETE ASSOCIATE AUTO&AUTO S DIFRNTL WBC BASIC 52778 COMBINED COMBINED METABOLIC 0 PHYSICIAN PHYSICIAN PANEL S LAB S LAB CALCIUM TOTAL COLLECTIO 33174 FAMILY ELIAS, N VENOUS 0 CARE CLEO T BLOOD ASSOCIATE VENIPUNCT S URE LANCETS A4259 REID GLASSRELL PER BOX 0 HOME MED HOME MED OF 100 [employer] LLC BLD GLU A4253 REID REID TEST/REAG 0 HOME MED HOME MED T STRIPS EQUIP. EQUIP. HOME BLD [facility] GLU MON-50 HOSPITAL 05427 FAMILY ELIAS, DISCHARGE 0 CARE CLEO T DAY ASSOCIATE MANAGEMEN S T > 30 MIN RADIOLOGI 01807 John ANTON EXAM 0 MEDICAL XAVI Mcdonald CHEST 2 IMAGING VIEWS ASSOCIATE FRONTAL&L S ATERAL SBSQ 89301 [employer] [facility] 0 CARE CLEO T CARE/DAY ASSOCIATE 25 S MINUTES INITIAL 56196 [facility] 0 CARE CLEO T CARE/DAY ASSOCIATE 50 S MINUTES INTRO 56399 EMEKA WILCOX, NEEDLE/IN 0 EMERGENCY [facility] SERVICES EXTREMITY ARTERY ASSOCIATE S RADIOLOGI 49135 John TRIPATHI EXAM 0 MEDICAL RAYMUNDO CHEST 2 IMAGING VIEWS ASSOCIATE FRONTAL&L S ATERAL ECG 99620 ZACK BARRETO, ROUTINE 0 [facility] W/LEAST PROF SERV 12 [place] [address] [facility] WADE, PART VNTJ 0 MEDICAL RAYMUNDO IMG IMAGING AERSL ASSOCIATE 1/IMCU NURSE S PRJCJ ECHO 24913 [facility] DORITA [facility] R-T 0 PHYSICIAN MINNA Gardiner S GROUP W/WOM-MOD E COMPL SPEC&COLR D GROUND A0425 [facility] MILEAGE 0 AMBULANCE AMBULANCE PER SERVICE SERVICE STATUTE MILE AMB A0427 [facility] SERVICE 0 AMBULANCE AMBULANCE ALS SERVICE SERVICE EMERGENCY TRANSPORT LEVEL 1 IAADIADOO 01000 FAMILY MULBERRY, 0 CARE CLEO T STREPTOCO ASSOCIATE CCUS S GROUP A ORTHOPANT 24655 LIZZ BRIANUTCHER, OGRAM 0 MEDICAL RAYMUNDO IMAGING ASSOCIATE S COLLECTIO 24813 ZACK DIXON N VENOUS 0 [facility] BLOOD INC INC VENIPUNCT URE RENAL 48143 ZACK DIXON FUNCTION 0 [facility] MEM [...] LLC LLC HOME BLD GLU MON- COLLECTIO 26632 ZACK DIXON N VENOUS 9 [facility] BLOOD INC INC VENIPUNCT URE RENAL 44182 ZACK DIXON FUNCTION 9 [facility] MEM [...] LLC LLC HOME BLD GLU 50 COLLECTIO 67458 ZACK DIXON N VENOUS 9 [facility] [address] ZACK DIXON RETROPERI 9 [facility] TONEAL INC INC REAL TIME W/IMAGE COMPLETE RENAL 09079 ZACK DIXON FUNCTION 9 [facility] PANEL INC INC URNLS DIP 91911 ZACK DIXON 9 [facility] STICK/TAB INC INC LET REAGENT AUTO MICROSCOP Y CULTURE 09807 ZACK DIXON BACTERIAL 9 [facility] INC INC QUANTTATI VE COLONY COUNT URINE ANTINUCLE 80338 ZACK DIXON AR 9 [facility] [place] [address] ZACK DIXON BLOOD/URI 9 [facility] C ACID INC INC COMPLEMEN 68769 ZACK DIXON T 9 [facility] FUNCTIONA INC INC L ACTIVITY EACH COMPONENT CULTURE 45107 ZACK DIXON BCT 9 [facility] ISOL&PRSM INC INC PTV ID ISOLATE EA URINE SUSCEPTIB 63750 ZACK DIXON LTY STDY 9 [facility] ANTIMICRB INC INC IAL MICRO/AGA R DILUTJ ANTISTREP 64427 ZACK DIXON TOLYSIN O 9 [facility] SCREEN INC INC BASIC 30970 ZACK DIXON METABOLIC 9 [facility] PANEL INC INC CALCIUM TOTAL COLLECTIO 59836 ZACK DIXON N VENOUS 9 [facility] BLOOD INC INC VENIPUNCT URE COLLECTIO 49393 ZACK DIXON N VENOUS 9 [facility] BLOOD INC INC VENIPUNCT URE COMPREHEN 47463 ZACK DIXON SIVE 9 [facility] [place] [address] ZACK DIXON THYROID 9 [facility] STIMULATI INC INC NG HORMONE TSH BLOOD 02356 ZACK DIXON COUNT 9 [facility] COMPLETE INC INC AUTO&AUTO DIFRNTL WBC REPL KIM A4235 DIABETES DIABETES LITHIUM 9 CARE CLUB CARE CLUB MED NECES [facility] LIBERTY BG MON OWN PT EA SPRING-PO A4258 DIABETES DIABETES WERED 9 CARE CLUB CARE CLUB DEVICE [employer] [facility] FOR [facility] EACH NORMAL A4256 DIABETES DIABETES LOW AND 9 CARE CLUB CARE CLUB HIGH [facility] CALIBRATO R SOLUTION/ CHIPS LANCETS A4259 DIABETES DIABETES PER BOX 9 CARE CLUB CARE CLUB OF 100 [facility] BLD GLU A4253 DIABETES DIABETES TEST/REAG 9 CARE CLUB CARE CLUB T STRIPS [facility] HOME BLD GLU MON-50 OPHTH 38503 LORRAINE, LORRAINE, MEDICAL 9 GEE A GEE A XM&EVAL COMPRHNSV ESTAB PT 1/> ALBUMIN 48225 FAMILY MULBERRY, URINE 9 CARE CLEO T MICROALBU ASSOCIATE MIN S SEMIQUANT ITATIVE CREATININ 45401 FAMILY JADA, E OTHER 9 CARE CLEO Rollins SOURCE ASSOCIATE S COLLECTIO 38911 FAMILY JADA, N VENOUS 9 CARE CLEO Rollins BLOOD ASSOCIATE VENIPUNCT S URE HEMOGLOBI 11999 COMBINED COMBINED N 9 PHYSICIAN PHYSICIAN GLYCOSYLA [...] LLC LLC HOME BLD GLU MON-50 MANUAL 26745 PROFESSIO CROSSFIEL THERAPY 8 NAL REHAB D, TQS 1/> ASSOC DANNITA REGIONS PSC EACH 15 MINUTES THERAPEUT 49417 PROFESSIO CROSSFIEL IC PX 1/> 8 NAL REHAB D, AREAS ASSOC DANNITA EACH 15 PSC MIN EXERCISES THERAPEUT 94417 PROFESSIO CROSSFIEL ACTVITY 8 NAL REHAB D, DIRECT PT ASSOC DANNITA CONTACT PSC EACH 15 MIN CANE E0105 REID MATHEWS QUAD/3-[place] 8 HOME MED HOME MED GABINO ALL EQUIP. EQUIP. [employer] LLC ADJUSTBL/ FIX W/TIPS THERAPEUT 68027 PROFESSIO CROSSFIEL IC PX 1/> 8 NAL REHAB D, AREAS ASSOC DANNITA EACH 15 PSC MIN EXERCISES MANUAL 87422 PROFESSIO CROSSFIEL THERAPY 8 NAL REHAB D, TQS 1/> ASSOC DANNITA REGIONS PSC EACH 15 MINUTES PHYSICAL 33798 PROFESSIO CROSSFIEL THERAPY 8 NAL REHAB D, EVALUATIO ASSOC DANNITA N PSC RADEX HIP 12376 ZACK DIXON 8 [facility] UNILATERA INC INC L COMPLETE MINIMUM 2 VIEWS RADEX 86388 LIZZ EPPS, SPINE 8 MEDICAL XAVI Mcdonald LUMBOSACR IMAGING AL ASSOCIATE MINIMUM 4 S VIEWS Encounters Encounter Start End Date Code Location Performer Type Date EMERGENCY 83701 RUDY JOINER DEPT 7 7 PHYSICIAN VISIT S, [facility] HIGH SEVERITY& THREAT [facility] HOSP[facility] ZACK - 7 7 [facility] INPATIENT [facility] ZACK - 6 6 [facility] OUTPATIEN [facility] OFFICE 10443 CAMERON GORDILLO OUTPATIEN 6 6 MEDICAL T VISIT SERV 25 FOUNDATIO MINUTES N EMERGENCY 32369 ZACK DEPT 6 6 [facility] VISIT [facility] HIGH SEVERITY& THREAT [facility] ZACK - 6 6 [facility] OUTPATIEN [facility] ZACK - OTHER 6 6 [facility] INC OFFICE 35629 [place] ERIBERTO YANESN OUTPATIEN 6 6 MEDICAL T VISIT SERV 25 FOUNDATIO MINUTES HOSPITAL ZACK - OTHER 6 6 [facility] INC OFFICE 73641 [facility] OUTPATIEN 6 6 [facility] CHAR[facility] T VISIT INTERNAL 15 MEDI MINUTES EMERGENCY 69590 ZACK 6 6 [facility] DEPARTMEN [facility] T VISIT HIGH/URGE NT SEVERITY EMERGENCY 50893 RUDY WANG DEPT 6 6 PHYSICIAN VISIT S, [facility] HIGH SEVERITY& THREAT FUNJ OFFICE 93742 [facility] B[facility]ON OUTPATIEN 6 6 [facility] TRACY T VISIT INTERNAL 15 MED MINUTES HOSPITAL ZACK - 6 6 [facility] OUTPATIEN [facility] T EMERGENCY 95206 RUDY WILCOX 6 6 PHYSICIAN CHIDI DEPARTMEN S, [facility] T VISIT HIGH/URGE NT SEVERITY EMERGENCY 92117 ZACK 6 6 [facility] DEPARTMEN INC T VISIT MODERATE SEVERITY HOSPITAL ZACK - 6 6 [facility] OUTPATIEN INC T [facility] INPATIENT 6 6 [facility] INPATIENT [address] [facility] EMERGENCY 61611 ZACK 5 5 [facility] DEPARTMEN INC T VISIT LOW/MODER SEVERITY HOSPITAL ZACK - 5 5 [facility] OUTPATIEN INC T [facility] INPATIENT 5 5 [facility] INPATIENT 5 5 [facility] ZACK - 5 5 [facility] INPATIENT INC OFFICE 56989 ZACK CALDERON OUTPATIEN 5 5 [facility] T VISIT 5 HOSPITAL MINUTES HOSPITAL ZACK - 5 5 [facility] OUTPATIEN INC T OFFICE 05563 ZACK CALDERON OUTPATIEN 5 5 [facility] VIS[facility] 10 P MINUTES EMERGENCY 02336 ZACK 5 5 [facility] DEPARTMEN INC T VISIT LIMITED/M INOR PROB OFFICE 09425 CAMERON GORDILLO OUTPATIEN 5 5 MEDICAL T VISIT SERV 25 FOUNDATIO MINUTES [facility] ZACK - 5 5 [facility] OUTPATIEN INC T HOSPITAL ZACK - 5 5 [facility] OUTPATIEN INC T OFFICE 52765 [facility] OUTPATIEN 5 5 [facility] T VISIT INTERNAL 25 MEDI MINUTES HOSPITAL ZACK - 5 5 [facility] OUTPATIEN INC T OFFICE 13000 ZACK CALDERON OUTPATIEN 5 5 [facility] T VISIT HOSPITAL 15 P MINUTES HOSPITAL ZACK - OTHER 5 5 [facility] INC OFFICE 57233 ZACK CONNELL 5 5 [facility] T VISIT HOSPITAL 10 P MINUTES [facility] INPATIENT [address] [facility] OFFICE 10789 [place] ERIBERTO GORDILLO OUTPATIEN 5 5 MEDICAL T VISIT SERV 25 FOUNDATIO MINUTES N [facility] INPATIENT 5 5 [facility] INPATIENT 5 5 [facility] 5 5 [facility] ZACK - 5 5 [facility] INPATIENT [facility] EMERGENCY 49387 ZACK Dawn 5 5 [facility] T VISIT P LOW/MODER SEVERITY HOSPITAL ZACK - 5 5 [facility] OUTPATIEN [facility] H[facility]PITAL ZACK - 5 5 [facility] OUTPATIEN [facility] OFFICE 83429 [place] ERIBERTO GORDILLO OUTPATIEN 4 4 MEDICAL T VISIT SERV 25 FOUNDATIO MINUTES HOSPITAL ZACK - 4 4 [facility] OUTPATIEN [facility] ZACK - 4 4 [facility] EMERGENCY 52034 [facility] DEPT 4 4 ERIC IMT VISIT EMERGENCY HIGH PHYS SEVERITY& THREAT FUN EMERGENCY 12605 ZACK 4 4 [facility] VISIT MODERATE SEVERITY HOSPITAL ZACK - OTHER 4 4 [facility] ZACK - 4 4 [facility] OUTPATIEN [facility] T OFFICE 52777 [place] ERIBERTO GORDILLO OUTPATIEN 4 4 MEDICAL T VISIT SERV 25 FOUNDATIO MINUTES HOSPITAL ZACK - KELLIE 4 4 [facility] ZACK - 4 4 [facility] OUTPATIEN INC OFFICE 33162 CAMERON GORDILLO OUTPATIEN 3 3 MEDICAL T VISIT SERV 25 FOUNDATIO MINUTES OFFICE 09087 [facility] LIZBETHAg OUTPATIEN 3 3 PHYSICIAN JAM T VISIT S GROUP 15 MINUTES [facility] ZACK - 3 3 [facility] OUTPATIEN [facility] EMERGENCY 31449 ZACK 3 3 [facility] T VISIT LIMITED/M INOR [facility] ZACK - 3 3 [facility] OUTPATIEN [facility] EMERGENCY 33539 EMEKA ALFORD 3 3 EMERGENCY III [facility] SERVICES T VISIT HIGH/URGE NT SEVERITY EMERGENCY 64378 ZACK 3 3 [facility] T VISIT HIGH/URGE NT SEVERITY EMERGENCY 59424 EMEKA LIRA DEPT 3 3 EMERGENCY VISIT SERVICES HIGH SEVERITY& THREAT [facility] ZACK - 3 3 [facility] OUTPATIEN [facility] ZACK - 3 3 [facility] OUTPATIEN [facility] ZACK - 3 3 [facility] OUTPATIEN [facility] OFFICE 99790 CAMERON GORDILLO OUTPATIEN 3 3 MEDICAL T VISIT SERV 25 FOUNDATIO MINUTES [facility] ZACK - 3 3 [facility] ZACK [facility] 3 3 [facility] ZACK - 3 3 [facility] ZACK - 3 3 [facility] ZACK - 3 3 [facility] EMERGENCY 20081 EMEKA CASTELLANO DEPT 2 2 EMERGENCY VISIT SERVICES HIGH SEVERITY& THREAT [facility] ZACK - 2 2 [facility] 56288 CAMERON ERIBERTO GORDILLO OUTPATIEN 2 2 MEDICAL T [facility]ISIT SERV 25 [facility] ZACK - 2 2 [facility] 2 2 [facility] 68812 CAMERON ERIBERTO GORDILLO OUTPATIEN 2 2 MEDICAL T [facility]ISIT SERV 15 [facility] ZACK - 2 2 [facility] Z[facility] 2 2 [facility] 91119 ZACK 2 2 [facility] VISIT HIGH/URGE NT SEVERITY [facility] ZACK - 2 2 [facility] 36539 EMEKA ALFORD DEPT 2 2 EMERGENCY III NANCY VISIT SERVICES HIGH SEVERITY& THREAT [facility] ZACK - 2 2 [facility] Z[facility] 2 2 [facility] 61933 EMEKA WILCOX DEPT 2 2 EMERGENCY [facility] VISIT SERVICES HIGH SEVERITY& THREAT [facility] EMERGENCY 38896 ZACK 2 2 [facility] VISIT HIGH/URGE NT SEVERITY [facility]OSPITAL ZACK - 2 2 [facility] OFFICE 55557 FAMILY STRAWZELL OUTPATIEN 2 2 CARE CRI T VISIT ASSOCIATE 25 S, PSC MINUTES OFFICE 84365 FAMILY STRAWZELL OUTPATIEN 2 2 CARE CRI T VISIT ASSOCIATE 15 S, PSC MINUTES EMERGENCY 92039 [facility]ACK 2 2 [facility] T VISIT LOW/MODER SEVERITY [facility] ZACK - 2 2 [facility] T EMERGENCY 25418 EMEKA ALFORD 2 2 EMERGENCY III [facility] SERVICES T VISIT HIGH/URGE NT SEVERITY [facility] - 2 2 [facility] T OFFICE 52015 [place] WEISada GORDILLO OUTPATIEN 2 2 MEDICAL T VISIT SERV 25 FOUNDATIO MINUTES OFFICE 36841 PAWSAT PAWSAT OUTPATIEN 2 2 Aug T NEW 30 MINUTES [facility] - 1 1 [facility] ZACK [facility] 1 1 [facility] T OFFICE [address]91 [place] ERIBERTO GORDILLO OUTPATIEN 1 1 MEDICAL T VISIT SERV 25 FOUNDATIO MINUTES [facility] 1 1 [facility] EMERGENCY [id number] ZACK 1 1 [facility] DEPARTMEN [facility] T VISIT MODERATE [facility]VERITY [facility] Z[facility] - 1 1 [facility] ZACK [facility] 1 1 [facility] ZACK - 1 1 [facility] ZACK [facility] 1 1 [facility] T OFFICE 49704 [place] OUTPATIEN 1 1 [place] T NEW 45 CLINIC MINUTES [facility] ZACK - 1 1 [facility] T OFFICE 56676 [place] ERI[place]ERT[place] GORDILLO OUTPATIEN 1 1 MEDICAL T NEW 60 SERV MINUTES [facility] ZACK [facility] 1 1 [facility] INC T OFFICE 17390 FAMILY MULBERRY OUTPATIEN 1 1 CARE NILO T VISIT ASSOCIATE 40 S MINUTES [facility]OSPITAL ZACK - 1 1 [facility] OUT[facility]IEN INC T EMERGENCY [id number] [facility] 1 [facility] T VISIT LOW/MODER SEVERITY EMERGENCY 52538 EMEKA WU 1 1 EM[facility] J[facility] DEPARTMEN SERVICES T VISIT MODERATE SEVERITY OFFICE 64596 FAMILY LOGANBERRY OUTPATIEN 1 1 CARE NILO T VISIT ASSOCIATE 25 S MINUTES OFFICE 10056 ANKUSH LECHUGA JR OUTPATIEN 1 1 [facility] T VISIT 15 MINUTES [facility] T OFFICE 27541 ANKUSH LECHUGA JR OUTPATIEN 1 1 [facility] ELAINE T NEW 45 MINUTES [facility] T OFFICE 49910 FAMILY JADA OUTPATIEN 1 1 CARE NILO T VISIT ASSOCIATE 25 S MINUTES [facility] OUT[facility] T EMERGENCY 43223 EMEKA CASTELLANO 1 1 EMERGENCY DEPARTMEN SERVICES T VISIT HIGH/URGE NT SEVERITY EMERGENCY [id number] [facility] 1 1 [facility] DEPARTMEN INC T VISIT LOW/MODER SEVERITY OFFICE 20126 FAMILY BRENDAN J OUTPATIEN 1 1 CARE T VISIT ASSOCIATE 15 S MINUTES [facility] OUT[facility] T EMERGENCY 23547 [facility] 0 0 [facility] DEPARTMEN INC T VISIT LOW/MODER SEVERITY EMERGENCY 01844 EMEKA WILCOX 0 0 EMERGENCY [facility] DEPARTMEN SERVICES T VISIT HIGH/URGE NT SEVERITY OFFICE 13767 FAMILY BRENDAN J OUTPATIEN 0 0 CARE T VISIT ASSOCIATE 15 S MINUTES OFFICE 29247 FAMILY BRENDAN J OUTPATIEN 0 0 CARE T VISIT ASSOCIATE 15 S MINUTES [facility] OUT[facility] INC T OFFICE 05095 FAMILY MULBERRY OUTPATIEN 0 0 CARE NILO T VISIT ASSOCIATE 25 S MINUTES [facility] 0 [facility] T [facility] - [facility] 0 [facility] OUT[facility] T OFFICE 24871 [facility]PATI[facility] 0 0 PHYSICIAN JAM T NEW 45 S GROUP MINUTES EMERGENCY 92651 [facility] 0 0 [facility] DEPARTMEN INC T VISIT MODERATE SEVERITY [facility] OUT[facility] T EMERGENCY 21119 EMEKA WILCOX 0 0 EMERGENCY [facility] DEPARTMEN SERVICES T VISIT HIGH/URGE NT SEVERITY OFFICE 81776 FAMILY MULBERRY OUTPATIEN 0 0 CARE NILO T VISIT ASSOCIATE 25 S MINUTES OFFICE 52653 FAMILY MULBERRY, OUTPATIEN 0 0 CARE CLEO T T VISIT ASSOCIATE 15 S MINUTES OFFICE 83427 FAMILY MULBERRY, OUTPATIEN 0 0 CARE CLEO T T VISIT ASSOCIATE 25 S MINUTES OFFICE 97947 FAMILY MULBERRY, OUTPATIEN 0 0 CARE CLEO T T VISIT ASSOCIATE 15 S MINUTES OFFICE 18065 FAMILY MULBERRY, OUTPATIEN 0 0 CARE CLEO T T VISIT ASSOCIATE 25 S MINUTES EMERGENCY 14247 EMEKA WILCOX, DEPT 0 0 EMERGENCY TAYA S VISIT SERVICES HIGH SEVERITY& ASSOCIATE [facility] INPATIENT INC OFFICE 62766 FAMILY JADA, OUTPATIEN 0 0 CARE CLEO T T VISIT ASSOCIATE 15 S MINUTES EMERGENCY 60187 [facility] 0 0 [facility] DEPARTMEN INC T VISIT LOW/MODER SEVERITY [facility] OUT[facility] T OFFICE 51557 MEANS BUTROS, OUTPATIEN 9 9 ADULT REVANESAA T VISIT PRIMARY 15 CARE [facility] - 9 9 [facility] OUTPATI[facility] INC T OFFICE 58665 MEANS BUTROS, OUTPATIEN 9 9 ADULT REVANESAA T VISIT PRIMARY 25 CARE [facility] - 9 9 [facility] OUTPATI[facility] INC T OFFICE 53826 MEANS BUTROS, CONSULTAT 9 9 ADULT RERANDALLLLA ION PRIMARY [facility] 80 MIN [facility] - 9 9 [facility] OUTPATIEN INC T OFFICE 28415 FAMILY JADA OUTPATIEN 9 9 CARE CLEO T T VISIT ASSOCIATE 15 S MINUTES OFFICE 15992 FAMILY JADA OUTPATIEN 9 9 CARE CLEO T T VISIT ASSOCIATE 25 S MINUTES [facility] - 9 9 [facility] OUT[facility] INC T OFFICE 05992 FAMILY JADA OUTPATIEN 9 9 CARE CLEO T T VISIT ASSOCIATE 25 S MINUTES OFFICE 43719 FAMILY KO OCAMPO 8 8 CARE R PADMINI T VISIT ASSOCIATE 25 S MINUTES [facility] - 8 8 [facility] OUTPATIEN INC T OFFICE 67855 Sameer MARCOS 8 8 CARE G T VISIT ASSOCIATE 15 S MINUTES [facility]OSPITAL [facility] - 8 8 [facility] T EMERGENCY 98264 [facility] L[facility]ER SEVERITY [facility] 8 8 [facility] 79573 [facility]/M INOR PROB
--- OUTSIDE RECORDS SUMMARY | 2016-10-19 17:19 | External Medical Summary Rpt ---
Demographics Preferred Language Romanian Marital Status Unknown Jainism Affiliation Unknown Race Unknown Ethnic Group Unknown Author Author , Organization [employer] Address Unknown Phone Unavailable Purpose Continuity of Care Document - through 2016 Immunization No patient found.
--- OUTSIDE RECORDS SUMMARY | 2016-10-19 17:19 | External Medical Summary Rpt ---
Demographics Preferred Language Mauritanian Marital Status Unknown Mormonism Affiliation Unknown Race Unknown Ethnic Group Unknown Author Author , Organization [employer] Address Unknown Phone Unavailable Purpose Continuity of Care Document - through 2016 Immunization No patient found.
--- OUTSIDE RECORDS SUMMARY | 2016-10-19 17:19 | External Medical Summary Rpt ---
Author Author ERENDIRA Stubbs, ERENDIRA Stubbs Organization [employer] Address Unknown Phone Unavailable
--- OUTSIDE RECORDS SUMMARY | 2016-10-19 17:30 | External Medical Summary Rpt ---
Author Author , Organization [employer] Address Unknown Phone Unavailable Care Team Providers Care Endbander Name Role Phone CALDERON VALENTINE, CALDERON Unavailable [...] HOL, CHAPMAN Unavailable Unavailable HOL BEINEKE KAY BESALBADORKE Unavailable Unavailable KAY BALJINDER L, BALJINDER L Unavailable Unavailable BESSON TRACY, BESSON Unavailable Unavailable TRACY RODRIGUEZ ALL, RODRIGUEZ ALL Unavailable Unavailable [facility] Unavailable Unavailable SERVICE, [facility] Unavailable Unavailable SERVICE, [facility] BUTROS, REZKALLA, Unavailable Unavailable BUTROS, REZKALLA [facility] Unavailable Unavailable CONSULTANTS O, [facility] Unavailable Unavailable CAMPUS, [facility] Unavailable Unavailable CAMP[facility], [facility] Unavailable Unavailable [place], [facility] Unavailable [facility], [facility] Unavailable Unavailable LAB, [facility] COOK JUAN J, PATRIC JUAN J Unavailable Unavailable BRENDAN Estrella, BRENDAN [...] DELUNA Unavailable Unavailable MINNA BAINS, Unavailable Unavailable FALLUJI, NEZAR M [facility] Unavailable [facility], [facility] Unavailable Unavailable [facility], [facility], [facility] WILL CHARMAINE, Unavailable Unavailable WILL CHARMAINE FOSTER JAM, FOSTER Unavailable Unavailable JAM BRENDEN CHIDI, BRENDEN Unavailable Unavailable CHIDI BRENDEN, TAYA S, Unavailable Unavailable TAYA WILCOX S MARISOL ANDREZ, Unavailable Unavailable MARISOL ANDREZ [facility] Unavailable Unavailable INC, [facility] Unavailable [facility]available Hospital, [facility] Unavailable Unavailable HOSPITAL P, [facility] P PETERS LANNY, PETERS LANNY Unavailable Unavailable PETERS LANNY, PETERS LANNY Unavailable Unavailable PETERS, GEE A, Unavailable Unavailable PETERS, GEE A [facility], Unavailable Unavailable [facility] JOINER, JOINER Unavailable Unavailable KLARISSA IMT, KLARISSA Unavailable Unavailable IMT Scarlet Patterson GROUND OPERATIONS SUPERVISOR, Unavailable Unavailable Scarlet Patterson GROUND OPERATIONS SUPERVISOR [facility] Unavailable Unavailable [facility]ING [facility], [...] [facility] Unavailable Un[facility], [facility] Unavailable Un[facility], [facility] Unavailable Unavailable SERVICES, [facility] MCKEMIE JR NANCY, Unavailable Unavailable MCKEMIE JR NANCY MICH CARLOS, MICH Unavailable Unavailable CARLOS MICH, XAVI P, Unavailable Unavailable CARLOS EPPSETT P MULBERRY NILO, Unavailable Unavailable MULBERRY NILO MULBERRY, CLEO T, Unavailable Unavailable MULBERRY, CLEO T CROWELL SON, CROWELL SON Unavailable Unavailable [facility] Unavailable Unavailable [facility], [facility] Clemente OCAMPO, Unavailable Unavailable Clemente [...] EQUIPME, [facility] Unavailable Unavailable EMERGENCY PHYS, [facility] Unavailable Unavailable CLINIC, [facility] STRAWZELL CRI, Unavailable Unavailable STRAWZELL CRI [facility], Unavailable Unavailable [facility], Unavailable Unavailable [facility] WEI RAND, WEI RAND Unavailable Unavailable WEHRMAN III NANCY, Unavailable Unavailable WEHRMAN III NANCY [facility] Unavailable Unavailable LLC, [facility] ELSA LIRA, ELSA LIRA Unavailable Unavailable Purpose Continuity of Care Document - 11-11-2007 through 2016 Problems Code Diagnosis DOS Provider Status E03.9 Hypothyroid 10-13-2016 ism, unspecified 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 E11.40 Type 2 10-13-2016 diabetes mellitus with diabetic neuropathy, unspecified E11.51 Type 2 10-13-2016 diabetes mellitus with diabetic peripheral angiopathy without gangrene E11.649 Type 2 10-13-2016 diabetes mellitus with hypoglycemi a without coma E11.65 Type 2 10-13-2016 diabetes mellitus with hyperglycem ia E66.01 Morbid 10-13-2016 (severe) obesity due to excess calories F32.9 Major 10-13-2016 depressive disorder, single episode, unspecified F41.9 Anxiety 10-13-2016 disorder, unspecified G93.41 Metabolic 10-13-2016 encephalopa thy I13.0 Hypertensiv 10-13-2016 e heart and chronic kidney disease with heart failure and stage 1 through stage 4 chronic kidney disease, or unspecified chronic kidney disease I21.3 ST 10-13-2016 elevation (STEMI) myocardial infarction of unspecified site 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 I44.1 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, 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, complete I50.43 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-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 N17.9 Acute 10-13-2016 kidney failure, unspecified N18.4 Chronic 10-13-2016 kidney disease, stage 4 (severe) N39.0 Urinary 10-13-2016 tract infection, site not specified R00.1 Bradycardia 10-13-2016 , unspecified T46.1X5A Adverse 10-13-2016 effect of calcium-elaine nnel blockers, initial encounter Z66 Do not 10-13-2016 resuscitate Z68.43 Body mass 10-13-2016 index (BMI) 50-59.9 , adult Z79.02 intermediate accountant 10-13-2016 (current) use of antithrombo tics/antipl atelets Z79.4 intermediate accountant 10-13-2016 (current) use of insulin Z79.82 intermediate accountant 10-13-2016 (current) use of aspirin Z86.73 Personal 10-13-2016 history of transient ischemic attack (TIA), and cerebral infarction without residual deficits Z98.61 Coronary 10-13-2016 angioplasty status I44.30 Unspecified 10-07-2016 atrioventri cular block R57.9 Shock, 09-30-2016 unspecified E109 TYPE 1 09-14-2016 [facility] DIABETES PHYSICIANS MELLITUS GROUP WITHOUT COMPLICATIO NS I213 ST 09-14-2016 [facility] ELEVATION PHYSICIANS MYOCARDIAL GROUP INFARCTION UNS SITE I739 PERIPHERAL 09-14-2016 [facility] VASCULAR PHYSICIANS DISEASE GROUP UNSPECIFIED N183 CHRONIC 09-14-2016 [facility] KIDNEY PHYSICIANS DISEASE GROUP STAGE 3 MODERATE E1142 TYPE 2 09-13-2016 [facility] P W/DIAB POLYNEUROPA THY I119 HYPERTENSIV 09-13-2016 [facility] E HEART PHYSICIANS, DISEASE PLLC WITHOUT HEART FAILURE I129 HYPERTENSIV 09-13-2016 [facility] E CKD [facility] W/STAGE 1-4 INC CKD OR UNS CKD C69106 ASHD SEMINOLE 09-13-2016 [facility] COR ART [facility] W/UNSTABLE INC ANGINA PECTORIS I5043 ACUTE ON 09-13-2016 PSYCHIATRIC P SYSTOLIC & DIASTOLIC CHF I773 ARTERIAL 09-13-2016 [facility] FIBROMUSCUL [facility] AR INC DYSPLASIA R0602 SHORTNESS 09-13-2016 H OF BREATH PHYSICIANS GROUP R0689 OTHER 09-13-2016 [facility]NORMAL[facility]I [facility] ES OF SERVICE BREATHING Z794 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 09-13-2016 [facility] CURRENT USE [facility] OF INSULIN INC E039 HYPOTHYROID 06-09-2016 [facility] ISM [facility] UNSPECIFIED INC E118 TYPE 2 06-09-2016 [facility] DIABETES [facility] MELLITUS INC W/UNS COMPLICATIO NS E119 TYPE 2 03-21-2016 [place] [facility] DI[facility]ET[facility] SERV MELLITUS FOUNDATION WITHOUT COMPLICATIO NS M810 AGE-RELATED 03-21-2016 [place] [facility] OSTEOPOROSI FOUNDATION S W/O CURRNT PATH FX N184 CHRONIC 03-21-2016 [facility] DISEASE FOUNDATION STAGE 4 SEVERE N250 RENAL 03-21-2016 [place] [facility] OSTEODYSTRO SERV PHY FOUNDATION N390 URINARY 03-18-2016 [facility]CT PHYSICIANS INFECTION LA SITE NOT SPECIFIED X80818 TYPE 2 02-28-2016 [facility] P W/HYPOGLYCE VICTORIANO W/O COMA E162 HYPOGLYCEMI 02-28-2016 [facility] Meza PHYSICIANS, UNSPECIFIED PLLC E876 HYPOKALEMIA 02-28-2016 [facility] INC I10 ESSENTIAL 02-28-2016 [facility] P N I5032 CHRONIC 02-28-2016 [facility] P HEART FAILURE R410 DISORIENTAT 02-28-2016 [facility] I[facility] UNSPECIFIED SERVICE Z591 INADEQUATE 02-28-2016 [facility] HOUSING [facility] INC Y16810 OTHER LONG 02-28-2016 [facility] TERM [facility] CURRENT INC DRUG THERAPY G4733 OBSTRUCTIVE 02-15-2016 [facility] SLEEP HOME APNEA ADULT MEDICAL PEDIATRIC EQUIPME [id number] MX FX 02-15-2016 [facility] PELVIS STBL HOME DISRUPT MEDICAL PELV RING EQUIPME INIT CHANDRIKA FX I8310 VARICOSE 09-17-2015 [facility] UNS VALLEY LOWER INTERNAL EXTREM MEDI W/INFLAMMAT ION M129 ARTHROPATHY 09-17-2015 [facility] UNSPECIFIED INTERNAL MEDI Z9111 PATIENTS 09-07-2015 [facility] NONCOMPLIAN VALLEY CE WITH INTERNAL DIETARY MEDI REGIMEN N189 CHRONIC 09-05-2015 [facility] [place]D PHYSICIANS, DISEASE PLLC UNSPECIFIED R1110 VOMITING 09-05-2015 [place] UNSPECIFIED MEDICAL IMAGING ASS R404 TRANSIENT 09-05-2015 [place] ALTERATION MEDICAL OF IMAGING ASS AWARENESS R4182 ALTERED 09-05-2015 [facility] MENTAL PHYSICIANS, STATUS PLLC UNSPECIFIED R464 SLOWNESS 09-05-2015 [facility] RESPONSIVEN SERVICE ESS H12203 CELLULITIS 08-16-2015 [facility] OF RIGHT VALLEY LOWER LIMB INTERNAL MED E05868 CELLULITIS 08-16-2015 [facility] OF LEFT VALLEY LOWER LIMB INTERNAL MED E1021 TYPE 1 08-10-2015 [facility] DIABETES [facility] MELLITUS INC W/DIABETIC NEPHROPATHY E1065 TYPE 1 08-10-2015 [facility] DIABETES [facility] MELLITUS INC WITH HYPERGLYCEM IA E138 OTH SPEC 08-10-2015 [facility] DIABETES PHYSICIANS, MELLITUS PLLC W/UNS COMPLICATIO NS K66941 CELLULITIS 08-10-2015 [facility] OF PHYSICIANS, UNSPECIFIED PLLC PART OF LIMB R739 HYPERGLYCEM 08-10-2015 [facility] [place] [facility]BULANCE UNSPECIFIED SERVICE L853 XEROSIS 08-09-2015 [facility] CUTIS VALLEY INTERNAL MED E6601 MORBID 08-05-2015 [facility] SEVERE VALLEY OBESITY DUE INTERNAL TO EXCESS MEDI CALORIES I270 PRIMARY 07-20-2015 [facility] PULMONARY [facility] HYPERTENSIO CAMPUS N I5030 UNSPECIFIED 07-20-2015 [facility] CONGESTIVE [facility] HEART FAILURE R0600 DYSPNEA 07-20-2015 [facility] M542 CERVICALGIA 07-12-2015 [facility] M546 PAIN IN 07-12-2015 [facility] THORACIC MOBILEX SPINE I509 HEART 07-11-2015 [facility] FAILURE VALLEY UNSPECIFIED INTERNAL MED I8311 VARICOSE 07-11-2015 [place] RT VALLEY LOWER INTERNAL EXTREMITY MED W/INFLAMMAT ION M4003 POSTURAL 07-11-2015 [facility] KYPHOSIS VALLEY CERVICOTHOR INTERNAL ACIC REGION MED R05 COUGH [...] HOSP 40.0-44.9 INC ADULT N3020 OTHER 04-28-2015 [facility] P WITHOUT HEMATURIA J209 ACUTE 03-31-2015 [facility] BRONCHITIS [facility] UNSPECIFIED INC M12626 PERSONAL 03-31-2015 [facility] HISTORY OF [facility] NICOTINE INC DEPENDENCE A499 BACTERIAL 03-23-2015 [place] MEDICAL INFECTION SERV UNSPECIFIED FOUNDATION R279 UNSPECIFIED 03-19-2015 [facility] LACK OF MEM HOS[facility] COORDINATIO INC N Z5189 ENCOUNTER 03-19-2015 [facility] FOR OTHER MEM [facility] SPECIFIED INC AFTERCARE 92186 DIAB W/O 03-17-2015 [facility] COMP TYPE I HOME [JUV] NOT MEDICAL STATED EQUIPME UNCNTRL 84310 OBSTRUCTIVE 03-17-2015 [facility] SLEEP HOME APNEA MEDICAL EQUIPME 70244 MULTIPLE 03-17-2015 [facility] CLOSED HOME PELVIC FX MEDICAL DISRUPT EQUIPME PELVIC [place] 2449 UNSPECIFIED 03-10-2015 [facility] HYPOTHYROID INC ISM 94558 DIAB W/O 03-10-2015 [facility] COMP TYPE [facility] II/UNS NOT INC STATED UNCNTRL 5854 CHRONIC 03-10-2015 [facility] DISEASE INC STAGE IV (SEVERE) 5990 URINARY 03-10-2015 [facility] TRACT [facility] INFECTION INC SITE NOT SPECIFIED 23338 UNSPECIFIED 03-10-2015 [facility] OSTEOPOROSI INC S 4019 UNSPECIFIED 03-02-2015 [facility] ESSENTIAL VALLEY HYPERTENSIO INTERNAL N MEDI 4541 VARICOSE 03-02-2015 [place] LOWER VALLEY INTERNAL EXTREMITIES MEDI W/INFLAMMAT ION 20713 UNSPECIFIED 03-02-2015 [facility] CONSTIPATIO INTERNAL N MEDI 5939 UNSPECIFIED 03-02-2015 [facility] DISORDER VALLEY OF KIDNEY INTERNAL AND URETER MEDI 7823 EDEMA 03-02-2015 [facility] INTERNAL MEDI 10946 UNSPECIFIED 03-02-2015 [facility] RETENTION VALLEY OF URINE INTERNAL MEDI 16411 UNSPECIFIED 02-24-2015 [facility] 7813 LACK OF 02-24-2015 [facility] P V571 OTHER 02-24-2015 [facility] PHYSICAL [facility] THERAPY INC 5952 OTHER 02-03-2015 [facility] P 2761 HYPOSMOLALI 01-17-2015 [facility] TY AND/OR HEALTH HYPONATREMI CAMPUS A 79391 LEUKOCYTOSI 01-17-2015 [facility] S HEALTH UNSPECIFIED CAMPUS 5849 ACUTE 01-17-2015 [facility] KIDNEY HEALTH FAILURE CAMPUS UNSPECIFIED 7197 DIFFICULTY 01-17-2015 [facility] IN WALKING HEALTH CAMPUS 65525 MUSCLE 01-17-2015 [facility] WEAKNESS HEALTH (GENERALIZE CAMPUS D) 7993 UNSPECIFIED 01-17-2015 [facility] DEBILITY HEALTH CAMPUS 9953 ALLERGY 01-17-2015 [facility] UNSPECIFIED HEALTH NOT CAMPUS ELSEWHERE CLASSIFIED 76598 HTN CKD UNS 12-25-2014 [place] MEDICAL W/CKD SERV STAGE I FOUNDATION THRU STAGE IV/UNS 515 POSTINFLAMM 12-16-2014 [facility] ATORY [facility] PULMONARY FIBROSIS V5881 FITTING AND 12-16-2014 [facility] ADJUSTMENT MOBILEX OF VASCULAR CATHETER 4280 CONGESTIVE 12-09-2014 [facility] HEART [facility] FAILURE UNSPECIFIED 4293 CARDIOMEGAL 12-09-2014 [facility] Y [facility] 1101 DERMATOPHYT 12-04-2014 [facility] OSIS OF E NAIL 18187 DIAB 12-04-2014 [facility] W/PERIPH E CIRC D/O TYPE II/UNS NOT UNCNTRL 4439 UNSPECIFIED 12-04-2014 [facility] PERIPHERAL E VASCULAR DISEASE 9172 FOOT&TOE 12-04-2014 [facility] BLISTER E WITHOUT MENTION OF INFECTION 9243 CONTUSION 12-04-2014 [facility] OF TOE E 20214 ABDOMINAL 11-03-2014 [place] PAIN RIGHT MEDICAL UPPER IMAGING ASS QUADRANT 5533 DIAPHRAGMAT 11-01-2014 [place] KODY W/O MEDICAL MENTION IMAGING ASS OBSTRUCTION /GANGREN 7905 OTHER 11-01-2014 [place] NONSPECIFIC MEDICAL ABNORMAL IMAGING ASS SERUM ENZYME LEVELS 7862 COUGH 10-30-2014 [place] [facility] V5869 LONG-TERM 10-30-2014 [facility] (CURRENT) [facility] USE OF INC OTHER MEDICATIONS 26353 UNSPECIFIED 10-28-2014 [place] OTALGIA MEDICAL IMAGING ASS 7224 DEGENERATIO 10-28-2014 [place] N OF MEDICAL CERVICAL IMAGING ASS INTERVERTEB RAL DISC 7231 CERVICALGIA 10-28-2014 [place] [facility] 67804 SENILE 06-23-2014 [facility] OSTEOPOROSI [facility] S INC 9839 UNSPECIFIED 05-20-2014 [facility] VITAMIN D [facility] DEFICIENCY INC 2724 OTHER AND 05-20-2014 [facility] UNSPECIFIED [facility]OS[facility] INC HYPERLIPIDE VICTORIANO 22463 OTHER 05-20-2014 [facility] OSTEOPOROSI [facility] S INC 95138 HYPERTENSIV 02-20-2014 [facility] E HEART [facility] DISEASE INC UNSPEC W/HEART FAIL 4660 ACUTE 02-20-2014 [facility] BRONCHITIS [facility] INC 490 BRONCHITIS 02-20-2014 [facility] SPECIFIED PHYS ACUTE OR CHRONIC 62115 SWELLING OF 02-20-2014 [facility] N EMERG[facility]Y PHYS 5853 CHRONIC 11-18-2013 [place] [facility] DISEASE FOUNDATIO STAGE III (MODERATE) 586 UNSPECIFIED 10-29-2013 [facility] RENAL PHYSICIANS FAILURE LA 7262 OTHER 05-30-2013 [facility] AFFECTIONS PHYSICIANS OF SHOULDER GROUP REGION NEC 77144 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-2013 [facility] 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 90099 DISORDER OF 05-21-2013 [place] BONE AND MEDICAL CARTILAGE IMAGING ASS UNSPECIFIED V1559 PERSONAL 05-21-2013 [place] HISTORY OF MEDICAL OTHER IMAGING ASS INJURY V4981 ASYMPTOMATI 05-21-2013 [place] C MEDICAL POSTMENOPAU IMAGING ASS KEELY STATUS 14305 UNSPECIFIED 04-29-2013 [facility] VIRAL [facility] INFECTION SERVICES IN CCE & UNS SITE 4659 ACUTE URIS 04-29-2013 [facility] OF EMERGENCY UNSPECIFIED SERVICES SITE 72631 CRAMP OF 04-05-2013 [facility] PHYSICIANS [place] 7241 PAIN IN 01-16-2013 [facility] SPINE [facility] P 03619 ORTHOPNEA 01-16-2013 [facility] P 43597 OTHER 01-16-2013 [facility] DYSPNEA AND EMERGENCY SERVICES RESPIRATORY ABNORMALITI ES 7265 ENTHESOPATH 10-17-2012 [facility] Y OF HIP [facility] REGION INC 62800 PAIN IN 08-22-2012 [place] JOINT MEDICAL PELVIC IMAGING ASS REGION AND THIGH 2749 GOUT, 07-16-2012 [place] [address] SHORTNESS 05-28-2012 [facility] 4240 MITRAL 05-27-2012 [facility] VALVE [facility] DISORDERS INC 31698 OSTEOARTHRO 05-27-2012 [facility] S UNSPEC [facility]OS[facility] WHETHER INC GEN/LOC UNSPEC SITE 95851 CHEST PAIN 05-27-2012 [place] UNSPECIFIED MEDICAL IMAGING ASS 36267 OTHER CHEST 05-27-2012 [facility] P 5859 CHRONIC 12-01-2011 [facility] DISEASE INC UNSPECIFIED 76885 HYPERSOMNIA 11-15-2011 [facility] WITH SLEEP [place] APNEA UNSPECIFIED 51700 ANEMIA OF 10-30-2011 [facility] P DISEASE 2859 UNSPECIFIED 10-30-2011 [facility] ANEMIA [facility]ERG[facility]Y SERVICES 18051 DEGEN 10-30-2011 [place] THORACIC/TH MEDICAL ORACOLUMBAR IMAGING ASS INTERVERTEB RAL DISC 63611 DEGEN 10-30-2011 [place] LUMBAR/LUMB MEDICAL OSACRAL IMAGING ASS INTERVERTEB RAL DISC 7242 LUMBAGO 10-30-2011 [facility] P 7245 UNSPECIFIED 10-30-2011 [facility] BACKACHE EMERG[facility] SERVICES 7840 HEADACHE 10-30-2011 [facility] INC 98880 OTHER 10-20-2011 [place] DISEASES OF MEDICAL LUNG NOT IMAGING ASS ELSEWHERE CLASSIFIED 5199 UNSPECIFIED 10-20-2011 [place] DISEASE OF MEDICAL IMAGING ASS RESPIRATORY SYSTEM V5867 LONG-TERM 10-19-2011 [facility] USE OF [facility] P 3559 MONONEURITI 10-14-2011 [facility] S OF HOME UNSPECIFIED MEDICAL SITE EQUIPME 90392 OTHER 10-14-2011 [facility] MALAISE AND HOME FATIGUE MEDICAL EQUIPME 5180 PULMONARY 10-05-2011 [place] COLLAPSE MEDICAL IMAGING ASS 51443 OTHER 09-30-2011 [facility] STAPHYLOCOC [facility] CUS INC INFECTION IN CCE & UNS SITE 2768 HYPOPOTASSE 09-30-2011 [facility] VICTORIANO [employer] 2888 OTHER 09-30-2011 [facility] SPECIFIED DISEASE OF ASSOCIATES, WHITE BLOOD PSC CELLS 4599 UNSPECIFIED 09-30-2011 [facility] CIRCULATORY INC SYSTEM DISORDER 486 PNEUMONIA, 09-30-2011 [facility] ORGANISM [facility] UNSPECIFIED INC 19150 OTHER 09-30-2011 [place] SPECIFIED MEDICAL DISORDERS IMAGING ASS OF BLADDER 66556 OSTEOARTHRO 09-30-2011 [place] SIS UNSPEC MEDICAL WHETHER IMAGING ASS GEN/LOC LOWER LEG 20887 EFFUSION OF 09-30-2011 [place] LOWER LEG [...] [facility] FOR LIPOID DISORDERS ASSOCIATES, PSC 02517 DIAB 06-24-2011 [facility] W/NEURO MANIFESTS TYPE II/UNS NOT UNCNTRL 7038 OTHER 06-24-2011 [facility] MAR SPECIFIED DISEASE OF NAIL 77994 SECONDARY 03-29-2011 [facility]STEO[facility]RO [facility]INIC PSC SIS LOWER LEG 53521 PAIN IN 03-29-2011 [facility] JOINT, [facility]OS[facility] LOWER LEG INC 48670 BACKGROUND 03-25-2011 [facility] DIABETIC VISION RETINOPATHY 86373 NUCLEAR 03-25-2011 [facility] SCLEROSIS VISION 7820 DISTURBANCE 02-09-2011 [facility] OF SKIN [facility] SENSATION INC 2767 HYPERPOTASS 02-07-2011 [facility] EMIA ASSOCIATES 460 ACUTE 02-07-2011 [facility] NASOPHARYNG ASSOCIATES ITIS 6929 CONTACT 01-27-2011 [facility] DERMATITIS& EMERGENCY OTHER SERVICES ECZEMA DUE UNSPEC CAUSE 74692 PAIN IN 12-09-2010 [facility] JOINT, ASSOCIATES MULTIPLE SITES 58063 UNSPEC 10-28-2010 ALLR[facility] JR VENTRAL ELAINE KODY W/O MENTION OBST/GANGRE N 79761 ABDOMINAL 09-21-2010 [facility] PAIN, MEM HOS[facility] GENERALIZED INC 7831 ABNORMAL 08-24-2010 [facility] WEIGHT GAIN PHYSICIANS LA 5110 PLEURISY 07-18-2010 [facility] WITHOUT EMERGENCY MENTION SERVICES EFFUS/[place] [address] PAINFUL 07-18-2010 [place] RESPIRATION MEDICAL IMAGING ASS 2721 PURE 07-08-2010 [facility] HYPERGLYCER PHYSICIANS IDEMIA [place] 7944 NONSPECIFIC 07-07-2010 [facility] ABNORM ASSOCIATES RESULTS KIDNEY FUNCTION STUDY 28322 ASTHMA, 06-16-2010 [facility] UNSPECIFIED EMERGENCY , SERVICES UNSPECIFIED STATUS 99764 DIAB 05-21-2010 [facility] LANNY W/OPHTH MANIFESTS TYPE II/UNS NOT UNCNTRL 8250 CLOSED 04-28-2010 [facility] FRACTURE OF [facility] HOSP CALCANEUS INC V5416 AFTERCARE 04-28-2010 [place] HEALING MEDICAL TRAUMATIC IMAGING ASS FRACTURE LOWER LEG 8248 UNSPECIFIED 03-31-2010 [place] CLOSED MEDICAL FRACTURE OF IMAGING ASS ANKLE 71002 OTHER ANKLE 03-31-2010 [facility] [employer] STR[facility] S INC 9596 INJURY 02-17-2010 [place] OTHER AND MEDICAL UNSPECIFIED IMAGING ASS HIP AND THIGH 9597 INJURY 02-17-2010 [place] OTHER&UNSPE MEDICAL CIFIED KNEE IMAGING ASS LEG ANKLE&FOOT 920 CONTUSION 02-16-2010 [facility] OF FACE EMERGENCY SCALP AND SERVICES NECK EXCEPT EYE 71183 CONTUSION 02-16-2010 [facility] OF HIP [facility] INC E8859 FALL FROM 02-16-2010 [facility] OTHER EMERGENCY SLIPPING SERVICES TRIPPING OR STUMBLING 37146 INSOMNIA 02-04-2010 [facility] UNSPECIFIED ASSOCIATES V0382 NEED PROPH 02-04-2010 [facility] VACCINATION ASSOCIATES AGAINST STREP PNEUMONE 60627 URINARY 11-04-2009 [facility] FREQUENCY ASSOCIATES 2811 OTHER 08-24-2009 [facility] VITAMIN B12 ASSOCIATES DEFICIENCY ANEMIA 514 PULMONARY 08-24-2009 [facility] CONGESTION ASSOCIATES AND HYPOSTASIS E8490 PLACE OF 07-10-2009 [facility], MEDICAL HOME IMAGING ASSOCIATES 02049 GEN 04-15-2009 [facility] OSTEOARTHRO [facility]ARE [facility] INVOLVING MULTIPLE SITES 7919 OTHER 03-31-2009 [facility] NONSPECIFIC [facility] FINDING INC EXAMINATION OF URINE 47793 NEPHRITIS&N 03-24-2009 [facility] EPHROPATHY PRIMARY W/OTH CARE CENTER PATHOLOG KIDNEY LES 35149 NOCTURIA 03-11-2009 [facility] 79608 HYPERSOMNIA 02-26-2009 [facility] UNSPECIFIED 82511 DIAB 11-28-2008 [facility] W/OPHMADONNA Meza MANIFESTS TYPE II/UNS TYPE UNCNTRL 4619 ACUTE 06-17-2008 [facility] SINUSITIS, ASSOCIATES UNSPECIFIED 8082 CLOSED 03-18-2008 [facility] FRACTURE OF L REHAB PUBIS ASSOC PSC 7089 UNSPECIFIED 11-17-2007 [facility] URTICARIA ASSOCIATES 6868 OTH SPEC 11-12-2007 [facility] INFECTIONS HOSPITAL SKIN&SUBCUT PROF SERV TISSUE V642 SURG/OTH 11-11-2007 [facility] PROC NOT MEM [facility] CARRIED OUT INC BECAUSE PTS DECN 401.9 Essential Herman hypertensio [facility] [id number] Diastolic Herman heart [facility] [id number] Diabetes Herman mellitus [facility] type 2 [facility] [id number] Mitral Herman valve [facility] 786.09 Dysp[facility] Allergies, Adverse Reactions, Alerts Type Drug Allergy [...] RO 40 -3 SE 96 1- Lo [place] 10 20 ng DE 20 13 er [...] 03:08 Cnc Magnesium SerPl-mCnc (10-05-2016 03:15) Magnesi TCON 1.9-2.4 complet um 017 Multipl ed SerPl-m 03:15 e SCM Cnc orders. Tests consoli dated. L mg/dL Phosphate SerPl-mCnc (10-05-2016 03:15) Phospha DUP 2.5-4.5 complet te 017 DUPLICA ed SerPl-m 03:15 TE Cnc ORDER,C REDITED L mg/dL Magnesium SerPl-mCnc (10-05-2016 03:15) Magnesi 2.0 1.9-2.4 complet um 017 mg/dL ed SerPl-m 03:15 Cnc Magnesium SerPl-mCnc (10-04-2016 16:07) Magnesi 2.1 1.9-2.4 complet um 017 mg/dL ed SerPl-m 16:07 Cnc Creat Ur-mCnc (10-04-2016 16:07) Creat 29 complet Ur-mCnc 017 mg/dL ed 16:07 Magnesium SerPl-mCnc (10-04-2016 02:54) Magnesi 2.1 1.9-2.4 complet um 017 mg/dL ed SerPl-m 02:54 Cnc Magnesium SerPl-mCnc (10-03-2016 02:30) Magnesi 2.2 1.9-2.4 complet um 017 mg/dL ed SerPl-m 02:30 Cnc NT-proBNP SerPl-mCnc (10-03-2016 02:30) NT-proB [id number] 0-1799 complet [facility] 017 pg/mL ed SerPl-m 02:30 Cnc MDRO Wnd (09-30-2016 22:55) CC XXX NOTAP complet VC-aCnc 017 NOT ed 22:55 APPLICA BLE L Bacteri [id number] complet a XXX 017 ed Anaerob 22:55 Staphyl e+Aerob ococcus e Cult aureus (organi sm) SCT SAUR STAPHYL OCOCCUS AUREUS L Bacteri [id number] complet a XXX 017 01 ed Anaerob 22:55 Methici e+Aerob llin e Cult resista nt Staphyl ococcus aureus (organi sm) SCT MRSA1 (MRSA) L Osmolality SerPl (09-30-2016 12:10) Osmolal 325 280-301 complet ity 017 mOsm/kg ed SerPl 12:10 Magnesium SerPl-mCnc (09-30-2016 12:10) Magnesi 2.5 1.9-2.4 complet um 017 mg/dL ed SerPl-m 12:10 Cnc CK SerPl-cCnc (09-30-2016 12:10) CK 415 U/L 37-168 complet SerPl-c 017 ed Cnc 12:10 T4 Free SerPl-mCnc (09-30-2016 12:10) T4 Free 1.7 0.8-1.7 complet 017 ng/dL ed SerPl-m 12:10 Cnc TSH SerPl DL<=0.005 mIU/L-aCnc (09-30-2016 12:10) TSH 4.82 0.4-4.2 complet SerPl 017 uIU/mL ed DL<=0.0 12:10 05 mIU/L-a Cnc NT-proBNP SerPl-mCnc (09-30-2016 12:10) NT-proB 74134 0-1799 complet [facility] 017 pg/mL ed SerPl-m 12:10 Cnc T3 SerPl-mCnc (09-30-2016 12:10) T3 67 87-187 complet SerPl-m 017 ng/dL ed Cnc 12:10 Bacteria Ur Cult (09-30-2016 12:10) CC XXX NOTAP complet VC-aCnc 017 NOT ed 12:10 APPLICA BLE L Bacteri [id number] complet a XXX 017 8 Genus ed Anaerob 12:10 e+Aerob Lactoba e Cult cillus (organi sm) SCT LACB LACTOBA CILLUS SPECIES L Bacteria XXX Anaerobe+Aerobe Cult (09-30-2016 12:10) Bacteri [id number] complet a XXX 017 06 No ed Anaerob 12:10 growth e+Aerob (qualif e Cult ier value) SCT NGB6 NO GROWTH DAY 5. L STREP SCREEN (RAPID) (04-29-2013 08:24) STREP NEGATIV complet SCREEN 013 E ed (RAPID) 08:24 COMPREHENSIVE METABOLIC PANEL (01-16-2013 07:55) Glucose 105 74-106 complet 013 mg/dL ed Bld-mCn 07:55 c BUN 01-16-2 28 7-18 complet Bld-mCn 013 mg/dL ed c 07:55 Creat 01-16-2 1.5 0.6-1.0 complet SerPl-m 013 mg/dL ed Cnc 07:55 ESTIMAT 01-16-2 46 50-200 complet ED 013 ML/MIN ed [...] K/MM3 8 ed Auto 07:55 RBC # 07-31-2 4.25 4.2-5.4 complet Bld 013 M/mm3 ed Auto 07:55 Hgb 31-2 12.7 12.2-16 complet Bld-mCn 013 g/dL .2 ed c 07:55 Hct Fr 31-2 38.8 % 37.0-47 complet Bld 013 .0 ed 07:55 MCV RBC 01-16-2 91.4 fl 82.2-97 complet 013 .8 ed 07:55 MCH RBC 01-16-2 30.0 pg 27-31.2 complet Qn 013 ed Auto 07:55 MEAN 31-2 32.8 31.8-35 complet CORPUSC 013 g/dl .4 ed ULAR 07:55 HGB CONC RDW RBC 01-16-2 14.3 % 11.5-17 complet Auto 013 .5 ed 07:55 Platele 31-2 252 142-424 complet t Bld 013 K/mm3 ed Ql 07:55 Manual MEAN 01-16-2 8.4 fl 7.4-10. complet PLATELE 013 4 ed T 07:55 VOLUME Granulo 31-2 72.0 % 37.0-80 complet cytes 013 .0 ed Fr Bld 07:55 Auto LYMPH % 31-2 18.7 % 10-50.0 complet 013 ed 07:55 Monocyt -31-2 5.0 % 1.7-9.3 complet es Fr 013 ed Bld 07:55 Auto Eosinop -31-2 3.8 % 0.1-12. complet hil Fr 013 0 ed Bld 07:55 Auto Basophi -31-2 0.4 % 0.1-2.0 complet ls Fr 013 [...] Bld 07:55 Auto Basophi 07-31-2 0.0 0-0.2 complet ls # 013 K/MM3 ed Bld 07:55 Auto Procedures Procedure DOS Code Location Performer Comment SBSQ 95260 [facility] 7 PHYSICIAN CARE/DAY S GROUP 25 MINUTES ECG 32423 ZACK BARRETO JR ROUTINE 7 [facility] W/LEAST P 12 LDS I&R ONLY INITIAL [address] [place] [address] PHYSICIAN CARE/DAY S GROUP 70 MINUTES FLUORO [id number] ZACK DIXON MULTI 7 [facility] CORONARY INC INC ARTERIES LOW OSMOLAR CONT DILAT [id number] ZACK DIXON CORONARY 7 [facility] ART 2 ART INC INC 2 RX-ELUT IL DEVC PERQ MEASUREME [id number] ZACK DIXON NT 7 [facility] CARDIAC INC INC SAMPLING PRESS LT HEART PERQ FLUOROSCO [id number] ZACK DIXON PY LEFT 7 [facility] HEART LOW INC INC OSMOLAR CONTRAST FLUORO [id number] ZACK DIXON BILATERAL 7 [facility] RENAL INC INC ART LOW OSMOLAR CONTRST GROUND A0425 [facility] PER SERVICE SERVICE STATUTE MILE AMBULANCE A0429 [facility] SERVICE 7 AMBULANCE AMBULANCE BLS SERVICE SERVICE EMERGENCY TRANSPORT LIPID 07459 ZACK DIXON PANEL 6 [facility] INC INC HEMOGLOBI 27546 ZACK DIXNO N 6 [facility] GLYCOSYLA INC INC ALEX A1C COLLECTIO 42163 ZACK DIXON N VENOUS 6 [facility] BLOOD INC INC VENIPUNCT URE COMPREHEN 90543 ZACK DIXON SIVE 6 [facility] [place] [address] ZACK DIXON THYROID 6 [facility] STIMULATI INC INC NG HORMONE TSH VOLUME 15623 COMBINED COMBINED MEASUREME 6 PHYSICIAN PHYSICIAN NT TIMED S LA S LA COLLECTIO N EACH RENAL 92339 COMBINED COMBINED FUNCTION 6 PHYSICIAN PHYSICIAN PANEL S LA S LA URNLS DIP 99387 COMBINED COMBINED 6 PHYSICIAN PHYSICIAN STICK/TAB S LA S LA LET REAGENT AUTO MICROSCOP Y 25 98424 COMBINED COMBINED HYDROXY 6 PHYSICIAN PHYSICIAN INCLUDES S LA S LA FRACTIONS IF PERFORMED BLOOD 69559 COMBINED COMBINED COUNT 6 PHYSICIAN PHYSICIAN COMPLETE S LA S LA AUTO&AUTO DIFRNTL WBC CULTURE 78932 COMBINED COMBINED BACTERIAL 6 PHYSICIAN PHYSICIAN S LA S LA QUANTTATI VE COLONY COUNT URINE CULTURE 56006 COMBINED COMBINED BCT 6 PHYSICIAN PHYSICIAN ISOL&PRSM S LA S LA PTV ID ISOLATE EA URINE [facility] A4258 ARRIVA ARRIVA WERED 6 MEDICAL PREVENTIVE MAINTENANCE COORDINATOR FOR LANCET EACH NORMAL A4256 ARRIVA ARRIVA LOW AND 6 MEDICAL MEDICAL HIGH CALIBRATO R SOLUTION/ CHIPS LANCETS A4259 ARRIVA ARRIVA PER BOX 6 MEDICAL MEDICAL OF 100 BLD GLU A4253 ARRIVA ARRIVA TEST/REAG 6 MEDICAL MEDICAL T STRIPS HOME BLD GLU MON-50 BASIC 88373 ZACK DIXON METABOLIC 6 [facility] PANEL [facility] G0378 ZACK DIXON OBSERVATI 6 [facility] ON INC INC SERVICE PER HOUR GLUC BLD 16601 ZACK DIXON GLUC MNTR 6 [facility] DEV INC INC CLEARED FDA SPEC HOME USE COLLECTIO 79633 ZACK DIXON N VENOUS 6 [facility] BLOOD INC INC VENIPUNCT URE COLLECTIO 70637 ZACK DIXON N VENOUS 6 [facility] BLOOD INC INC VENIPUNCT URE COMPREHEN 83493 ZACK DIXON SIVE 6 [facility] METABOLIC INC INC PANEL GROUND A0425 [facility]ULANCE PER SERVICE SERVICE STATUTE MILE CREATINE 45469 ZACK DIXON KINASE MB 6 [facility] FRACTION INC INC ONLY GLUC BLD 53472 ZACK DIXON GLUC MNTR 6 [facility] DEV INC INC CLEARED FDA SPEC HOME USE PRESSURIZ 58908 ZACK DIXON ED/NONPRE 6 [facility] SSURIZED INC INC INHALATIO N TREATMENT URNLS DIP 90177 ZACK DIXON 6 [facility] STICK/TAB INC INC LET REAGENT AUTO [facility]CR[facility] G0378 ZACK DIXON OBSERVATI 6 [facility] ON INC INC SERVICE PER HOUR BLOOD 86833 ZACK DIXON COUNT 6 [facility] COMPLETE INC INC AUTO&[place] [address] ZACK DIXON TROPONIN 6 [facility] QUANTITAT INC INC MARIBEL CREATINE 15722 ZACK DIXON KINASE 6 [facility] TOTAL INC INC THER 21230 ZACK DIXON PROPH/DX 6 [facility] NJX IV INC INC PUSH SINGLE/1S T SBST/DRUG ECG 05009 ZACK DIXON ROUTINE 6 [facility] ECG INC INC W/LEAST 12 LDS TRCG ONLY W/O I&R ECG 74923 ZACK MCLEAN ROUTINE 6 [facility] W/LEAST P 12 LDS I&R ONLY AMB A0427 [facility] SERVICE 6 AMBULANCE AMBULANCE ALS SERVICE SERVICE EMERGENCY TRANSPORT LEVEL 1 HOS BED E0260 REID MATHEWS SEMI-ELEC 6 HOME HOME W/ANY MEDICAL MEDICAL TYPE SIDE EQUIPME EQUIPME RAIL W/MATTRSS STANDARD K0001 REID LOMAS 6 HOME HOME R MEDICAL MEDICAL EQUIPME EQUIPME STANDARD K0001 REID LOMAS 6 HOME HOME R MEDICAL MEDICAL EQUIPME EQUIPME HOS BED E0260 REID MATHEWS SEMI-ELEC 6 HOME HOME W/ANY MEDICAL MEDICAL TYPE SIDE EQUIPME EQUIPME RAIL W/MATTRSS HOS BED E0260 REID MATHEWS SEMI-ELEC 6 HOME HOME W/ANY MEDICAL MEDICAL TYPE SIDE EQUIPME EQUIPME RAIL W/MATTRSS STANDARD K0001 REID LOMAS 6 HOME HOME R MEDICAL MEDICAL EQUIPME EQUIPME BLD GLU A4253 ARRIVA ARRIVA TEST/REAG 6 MEDICAL MEDICAL T STRIPS HOME BLD GLU MON-50 NORMAL A4256 ARRIVA ARRIVA LOW AND 6 MEDICAL MEDICAL HIGH CALIBRATO R SOLUTION/ CHIPS LANCETS A4259 ARRIVA ARRIVA PER BOX 6 MEDICAL MEDICAL [facility] STANDARD K0001 REID DELGADILLOCHAI 6 HOME HOME R MEDICAL MEDICAL EQUIPME EQUIPME HOS BED E0260 REID REID SEMI-ELEC 6 HOME HOME W/ANY MEDICAL MEDICAL TYPE SIDE EQUIPME EQUIPME RAIL W/MATTRSS COLLECTIO 64965 ZACK DIXON N VENOUS 6 [facility] BLOOD INC INC VENIPUNCT URE LIPID 33008 ZACK DIXON PANEL 6 [facility] INC INC HEMOGLOBI 37543 ZACK DIXON N 6 [facility] GLYCOSYLA INC INC ALEX A1C BASIC 58838 ZACK DIXON METABOLIC 6 [facility] PANEL INC INC CALCIUM TOTAL STANDARD K0001 REID REID WHEELCHAI 6 HOME HOME R MEDICAL MEDICAL EQUIPME EQUIPME HOS BED E0260 REID REID SEMI-ELEC 6 HOME HOME W/ANY MEDICAL MEDICAL TYPE SIDE EQUIPME EQUIPME RAIL W/MATTRSS URNLS DIP 13333 ZACK DIXON 6 [facility] STICK/TAB INC INC LET REAGENT AUTO MICROSCOP Y STANDARD K0001 REID MATHEWS WHEELCHAI 6 HOME HOME R MEDICAL MEDICAL EQUIPME EQUIPME HOS BED E0260 REID REID SEMI-ELEC 6 HOME HOME W/ANY MEDICAL MEDICAL TYPE SIDE EQUIPME EQUIPME RAIL W/MATTRSS REPL KIM A4233 ARRIVA ARRIVA ALKALINE 6 MEDICAL MEDICAL NOT J CELL [place] BG MON OWND PT BLD GLU A4253 ARRIVA ARRIVA TEST/REAG 6 MEDICAL MEDICAL T STRIPS HOME BLD GLU MON-50 NORMAL A4256 ARRIVA ARRIVA LOW AND 6 MEDICAL MEDICAL HIGH CALIBRATO R SOLUTION/ CHIPS LANCETS A4259 ARRIVA ARRIVA PER BOX 6 [facility] [place] [address] [facility] G0378 ZACK DIXON OBSERVATI 6 [facility] ON INC INC SERVICE PER HOUR GLUC BLD 22683 ZACK DIXON GLUC MNTR 6 [facility] DEV INC INC CLEARED FDA SPEC HOME USE OBSERVATI 42934 [place] [facility] CARE 6 [place] CHARMAINE DISCHARGE INTERNAL MEDI MANAGEMEN T GLUC BLD 12752 ZACK DIXON GLUC MNTR 6 [facility] DEV INC INC CLEARED FDA SPEC HOME USE COLLECTIO 88358 ZACK DIXON N VENOUS 6 [facility] BLOOD INC INC VENIPUNCT URE [facility] G0378 ZACK DIXON OBSERVATI 6 [facility] [place] [address] ZACK DIXON TROPONIN 6 [facility] QUANTITAT INC INC MARIBEL BLOOD 74342 ZACK DIXON COUNT 6 [facility] COMPLETE INC INC AUTO&AUTO DIFRNTL WBC BASIC 51894 ZACK DIXON METABOLIC 6 [facility] [place] [address] ZACK DIXON LIPASE 6 [facility] INC INC CREATINE 47977 ZACK DIXON KINASE 6 [facility] TOTAL INC INC BLOOD 10580 ZACK DIXON COUNT 6 [facility] COMPLETE INC INC AUTO&[place] [address] ZACK DIXON TROPONIN 6 [facility] QUANTITAT INC INC [facility] G0378 ZACK DIXON OBSERVATI 6 [facility] ON INC INC SERVICE PER HOUR COLLECTIO 03937 ZACK DIXON N VENOUS 6 [facility] BLOOD INC INC VENIPUNCT URE COMPREHEN 45845 ZACK DIXON SIVE 6 [facility] METABOLIC INC INC PANEL INJECTION J2405 ZACK DIXON 6 [facility] ONDANSETR INC INC ON HCL PER 1 MG CREATINE 63187 ZACK DIXON KINASE MB 6 [facility] FRACTION INC INC ONLY GROUND A0425 [facility] MILEAGE 6 AMBULANCE AMBULANCE PER SERVICE SERVICE STATUTE MILE GLUC BLD 86076 ZCAK DIXON GLUC MNTR 6 [facility] DEV INC [place] [address] ZACK DIXON INFUSION 6 [facility] THERAPY/P INC INC ROPHYLAXI S /DX 1ST TO 1 HR THERAPEUT 83184 ZACK DIXON IC 6 [facility] INJECTION INC INC IV PUSH EACH NEW DRUG INITIAL 42819 [facility] VINAY OBSERVATI [address] [place] [address] ON INTERNAL CARE/DAY [place] [address] [place] [address] ZACK DIXON HEAD/BRAI 6 [facility] N W/O INC INC CONTRAST MATERIAL RADIOLOGI 06820 ZACK ZACK C 6 [facility] EXAMINATI INC INC ON CHEST [place] FRONTAL URNLS DIP 49726 ZACK DIXON 6 [facility] STICK/TAB INC INC LET REAGENT AUTO MICROSCOP Y AMB A0427 [facility] SERVICE 6 AMBULANCE AMBULANCE ALS SERVICE SERVICE EMERGENCY TRANSPORT LEVEL 1 ECG 82173 ZACK BARRETO JR ROUTINE 6 [facility] W/LEAST P 12 LDS I&R ONLY ECG 40132 ZACKSHANDA DIXON ROUTINE 6 [facility] ECG INC INC W/LEAST 12 LDS TRCG ONLY W/O I&[place] [address] COMBINED COMBINED PHOSPHORU 6 PHYSICIAN PHYSIC[place] [address] COMBINED COMBINED BLOOD/URI 6 PHYSICIAN PHYSICIAN C ACID S LA S LA ALBUMIN 05260 COMBINED COMBINED SERUM 6 PHYSICIAN PHYSICIAN PLASMA/[place] [address] COMBINED COMBINED THYROID 6 PHYSICIAN PHYSICIAN STIMULATI S LA S LA NG HORMONE TSH BLOOD 35397 COMBINED COMBINED COUNT 6 PHYSICIAN PHYSICIAN COMPLETE S LA S LA AUTO&[place] [address] COMBINED COMBINED MAGNESIUM 6 PHYSICIAN PHYSICIAN S LA S LA CYANOCOBA 48883 COMBINED COMBINED SOHA 6 PHYSICIAN PHYSICIAN VITAMIN S LA S LA B-12 BASIC 91700 COMBINED COMBINED METABOLIC 6 PHYSICIAN PHYSICIAN PANEL S LA S LA CALCIUM TOTAL STANDARD K0001 REID MATHEWS WHEELCHAI 6 HOME HOME R MEDICAL MEDICAL EQUIPME EQUIPME HOS BED E0260 REID MATHEWS SEMI-ELEC 6 HOME HOME W/ANY MEDICAL MEDICAL TYPE SIDE EQUIPME EQUIPME RAIL W/MATTRSS PHYS G0179 [place] [facility] RE-CERT 6 [place] MCR-COVR INTERNAL [facility] SRVC RE-CERT PRD BLOOD 45366 ZACK ZACK COUNT 6 [facility] COMPLETE INC INC AUTO&AUTO DIFRNTL WBC AMBULANCE A0429 [facility] SERVICE 6 AMBULANCE AMBULANCE BLS SERVICE SERVICE EMERGENCY TRANSPORT GROUND A0425 [facility] MILEAGE 6 AMBULANCE AMBULANCE PER SERVICE SERVICE STATUTE MILE COMPREHEN 35320 ZACK DIXON SIVE 6 [facility] METABOLIC INC INC PANEL URNLS DIP 00458 ZACK DIXON 6 [facility] STICK/TAB INC INC LET REAGENT AUTO MICROSCOP Y GLUC BLD 94534 ZACK ZACK GLUC MNTR 6 [facility] DEV INC INC CLEARED FDA SPEC HOME USE SBSQ 53213 [facility] NURSING 6 [facility] FACIL INTERNAL CARE/DAY MED NEW PROBLEM 25 MIN SBSQ 04670 [facility]URSING 6 [facility] FACIL INTERNAL CARE/DAY MEDI MINOR COMPLJ 15 MIN HOS BED E0260 REID MATHEWS SEMI-ELEC 6 HOME HOME W/ANY MEDICAL MEDICAL TYPE SIDE EQUIPME EQUIPME RAIL W/MATTRSS STANDARD K0001 REID LOMAS 6 HOME HOME R MEDICAL MEDICAL EQUIPME EQUIPME RADEX 46285 SYMPHONY SYMPHONY SPINE 6 MOBILEX MOBILEX CERVICAL 2 OR 3 VIEWS RADEX 03725 SYMPHONY SYMPHONY SPINE 6 MOBILEX MOBILEX THORACIC 2 VIEWS SBSQ 52113 [facility] 6 [facility] FACIL INTERNAL CARE/DAY MED NEW PROBLEM 25 MIN STANDARD K0001 REID LOMAS 5 HOME HOME R MEDICAL MEDICAL EQUIPME EQUIPME HOS BED E0260 REID MATHEWS SEMI-ELEC 5 HOME HOME W/ANY MEDICAL MEDICAL TYPE SIDE EQUIPME EQUIPME RAIL W/MATTRSS AMB A0427 [facility] SERVICE 5 AMBULANCE AMBULANCE ALS SERVICE SERVICE EMERGENCY TRANSPORT LEVEL 1 CULTURE 53895 ZACK DIXON BACTERIAL 5 [facility] INC INC QUANTTATI VE COLONY COUNT URINE GROUND A0425 [facility] 5 AMBULANCE AMBULANCE PER SERVICE SERVICE STATUTE [facility] 61634 ZACK DIXON SIVE 5 [facility] METABOLIC INC INC PANEL NATRIURET 48458 ZACK DIXON IC 5 [facility] PEPTIDE INC INC PRESSURIZ 79601 ZACK ELLIOTTON ED/NONPRE 5 [facility] SSURIZED INC INC INHALATIO N TREATMENT URNLS DIP 93253 ZACK DIXON 5 [facility] STICK/TAB INC INC LET REAGENT AUTO MICROSCOP Y RADIOLOGI 66760 ZACK DIXON C EXAM 5 [facility] CHEST 2 INC INC VIEWS FRONTAL&L ATERAL BLOOD 10956 ZACK DIXON COUNT 5 [facility] COMPLETE INC INC AUTO&AUTO DIFRNTL WBC SUSCEPTIB 43931 ZACK DIXON LTY STDY 5 [facility] ANTIMICRB INC INC IAL MICRO/AGA R DILUTJ STANDARD K0001 REID CHAUDHARII 5 HOME HOME R MEDICAL MEDICAL EQUIPME EQUIPME HOS BED E0260 ERID GLASSRELL SEMI-ELEC 5 HOME HOME W/ANY MEDICAL MEDICAL TYPE SIDE EQUIPME EQUIPME RAIL W/MATTRSS SBSQ 74710 [place] [address] CULAR MAT CARE/DAY CONSULTAN 25 TS O MINUTES ECHO 76213 CAMERON POSADAOR 5 MEDICAL JUAN J C R-T 2D SERV W/WO FOUNDATIO M-MODE N REC F-UP/LMTD INITIAL 96686 [facility] 5 CULAR MAT CARE/DAY CONSULTAN 70 TS O MINUTES RADIOLOGI 71874 LIZZ Lopez EXAM 5 MEDICAL MELIDA CHEST 2 IMAGING VIEWS ASS FRONTAL&L ATERAL STANDARD K0001 REID CHAUDHARII 5 HOME HOME R MEDICAL MEDICAL EQUIPME EQUIPME HOS BED E0260 REID GLASSRELL SEMI-ELEC 5 HOME HOME W/ANY MEDICAL MEDICAL TYPE SIDE EQUIPME EQUIPME RAIL W/MATTRSS THERAPEUT 26541 ZACK DIXON IC PX 1/> 5 [facility] AREAS INC INC EACH 15 MIN EXERCISES LANCETS A4259 ARRIVA ARRIVA PER BOX 5 MEDICAL MEDICAL OF 100 NORMAL A4256 ARRIVA ARRIVA LOW AND 5 MEDICAL MEDICAL HIGH CALIBRATO R SOLUTION/ CHIPS BLD GLU A4253 ARRIVA ARRIVA TEST/REAG 5 MEDICAL MEDICAL T STRIPS HOME BLD GLU MON-50 URNLS DIP 91215 ZACK CALDERON 5 [facility] STICK/TAB [facility] LET RGNT P NON-AUTO W/O MICRSCP THERAPEUT 21742 ZACK DIXON IC PX 1/> 5 [facility] AREAS INC INC EACH 15 MIN EXERCISES HOS BED E0260 REID MATHEWS SEMI-ELEC 5 HOME HOME W/ANY MEDICAL MEDICAL TYPE SIDE EQUIPME EQUIPME RAIL W/MATTRSS STANDARD K0001 REID MATHEWS WHEELCHAI 5 HOME HOME R MEDICAL MEDICAL EQUIPME EQUIPME THERAPEUT 35123 ZACK DIXON IC PX 1/> 5 [facility] AREAS INC INC EACH 15 MIN EXERCISES THERAPEUT 02924 ZACK DIXON IC PX 1/> 5 [facility] AREAS INC INC EACH 15 MIN EXERCISES CULTURE 87840 ZACK DIXON BACTERIAL 5 [facility] INC INC QUANTTATI VE COLONY COUNT URINE CULTURE 68666 ZACK DIXON BCT 5 [facility] ISOL&PRSM INC [place] [address] ZACK DIXON THYROID 5 [facility] STIMULATI INC INC NG HORMONE TSH COLLECTIO 69467 ZACK DIXON N VENOUS 5 [facility] BLOOD INC INC VENIPUNCT URE URNLS DIP 45549 ZACK DIXON 5 [facility] STICK/TAB INC INC LET REAGENT AUTO MICROSCOP Y RENAL 82923 ZACK DIXON FUNCTION 5 [facility] PANEL INC INC HEMOGLOBI 97733 ZACK DIXON N 5 [facility] GLYCOSYLA INC INC ALEX A1C 25 93711 ZACK DIXON HYDROXY 5 [facility] INCLUDES INC INC FRACTIONS IF PERFORMED BLOOD 21377 ZACK DIXON COUNT 5 [facility] COMPLETE INC INC AUTO&AUTO DIFRNTL WBC SUSCEPTIB 94684 ZACK DIXON LTY STDY 5 [facility] ANTIMICRB INC INC IAL MICRO/AGA R DILUTJ THERAPEUT 67545 ZACK ZACK IC PX 1/> 5 [facility] AREAS INC INC EACH 15 MIN EXERCISES THERAPEUT 29614 ZACK DIXON IC PX 1/> 5 [facility] AREAS INC INC EACH 15 MIN EXERCISES THERAPEUT 87418 ZACK DIXON IC PX 1/> 5 [facility] AREAS INC INC EACH 15 MIN EXERCISES THERAPEUT 37247 ZACK DIXON IC PX 1/> 5 [facility] AREAS INC INC EACH 15 MIN EXERCISES CULTURE 89830 ZACK DIXON BCT 5 [facility] ISOL&PRSM INC INC PTV ID ISOLATE EA URINE CULTURE 30849 ZACK DIXON BACTERIAL 5 [facility] INC INC QUANTTATI VE COLONY COUNT URINE SUSCEPTIB 35702 ZACK DIXON LTY STDY 5 [facility] ANTIMICRB INC INC IAL MICRO/AGA R DILUTJ PHYSICAL 66896 ZACK DIXON THERAPY 5 [facility] EVALUATIO INC INC N CATH CLCT P9612 ZACK CALDERON SPECIMEN 5 [facility] PT ALL P PLACES SERVICE URNLS DIP 26323 ZACK ALVARADOKINS 5 [facility] LET RGNT P NON-AUTO W/O MICRSCP STANDARD K0001 REID MATHEWS WHEELCHAI 5 HOME HOME R MEDICAL MEDICAL EQUIPME EQUIPME COMMODE E0163 REID MATHEWS CHAIR 5 HOME HOME MOBILE OR MEDICAL MEDICAL EQUIPME EQUIPME STATIONAR Y W/FIXED ARMS HOS BED E0260 REID MATHEWS SEMI-ELEC 5 HOME HOME W/ANY MEDICAL MEDICAL TYPE SIDE EQUIPME EQUIPME RAIL W/MATTRSS CULTURE 30156 ZACK DIXON BACTERIAL 5 [facility] INC INC QUANTTATI VE COLONY COUNT URINE CULTURE 79875 ZACK DIXON BCT 5 [facility] ISOL&PRSM INC INC PTV ID ISOLATE EA URINE SUSCEPTIB 25183 ZACK DIXON LTY STDY 5 [facility] ANTIMICRB INC INC IAL MICRO/AGA R DILUTJ ONELIA 69145 ZACK CALDERON POST-VOID 5 [facility] RESIDUAL P URINE&/BL ADDER CAP RADIOLOGI 23815 SYMPHONY SYMPHONY C 5 MOBILEX MOBILEX EXAMINATI ON CHEST SINGLE VIEW FRONTAL RADIOLOGI 99587 SYMPHONY SYMPHONY C 5 MOBILEX MOBILEX EXAMINATI ON CHEST SINGLE VIEW FRONTAL DEBRIDEME 75263 [facility] NT NAIL 5 ARE ANDREZ ANY METHOD 6/> INITIAL 56973 [facility] NURSING 5 ARE ANDREZ FACILITY CARE/DAY 25 MINUTES SBSQ 78255 [facility] NURSING 5 [facility] INTERNAL CARE/DAY MED NEW PROBLEM 25 MIN BLOOD 65605 COMBINED COMBINED COUNT 5 PHYSICIAN PHYSICIAN COMPLETE S LA S LA AUTO&AUTO DIFRNTL WBC BASIC 37488 COMBINED COMBINED METABOLIC 5 PHYSICIAN PHYSICIAN [place] [address] [place] LEROYSALBADORLALY ABDOMINAL 5 MEDICAL KAY REAL IMAGING TIME ASS W/[place] [address] [place] SHERI ABDOMEN & 5 MEDICAL MELIDA PELVIS IMAGING W/O ASS CONTRAST MATERIAL CRITICAL 42449 ZACK DIXON CARE 5 [facility] ED P P PATIENT INIT 30-74 MIN ECG 75045 ZACK VINAY ROUTINE 5 [facility] W/LEAST P 12 LDS I&R ONLY RADIOLOGI 43894 [place] RODRIGUEZ ALL C 5 MEDICAL EXAMINATI IMAGING ON CHEST ASS SINGLE VIEW FRONTAL RADEX 83211 [facility] MAST[place] 5 [facility] [place] COMPL IMAGING MINIMUM 3 ASS VIEWS OK SIDE RADEX 23705 [place] FRANKY SPINE 5 MEDICAL [facility] CERVICAL IMAGING 4 OR 5 ASS VIEWS LANCETS A4259 ARRIVA ARRIVA PER BOX 5 MEDICAL MEDICAL OF 100 NORMAL A4256 ARRIVA ARRIVA LOW AND 5 MEDICAL MEDICAL HIGH CALIBRATO R SOLUTION/ CHIPS BLD GLU A4253 ARRIVA ARRIVA TEST/REAG 5 MEDICAL MEDICAL T STRIPS HOME BLD GLU MON-50 BRADFORD-PO A4258 ARRIVA ARRIVA WERED 5 MEDICAL PREVENTIVE MAINTENANCE COORDINATOR FOR LANCET EACH COMPREHEN 91189 COMBINED COMBINED SIVE 5 PHYSICIAN PHYSICIAN METABOLIC S LA S LA PANEL COLLECTIO 92157 [facility] N VENOUS 5 [facility] BLOOD INC INC VENIPUNCT URE RENAL 39828 [facility] FUNCTION 5 [facility] PANEL INC INC INJECTION J0897 [facility] DENOSUMAB INC INC 1 MG THERAPEUT 82258 [facility] IC 5 [facility] PROPHYLAC INC INC TIC/DX INJECTION SUBQ/[place] [address] [facility] PARATHORM 4 [facility] ONE INC INC DXA BONE 34742 [facility] DENSITY 4 [facility] STUDY 1/> INC INC SITES AXIAL SKEL 25 33427 [facility] HYDROXY 4 [facility] INCLUDES INC INC FRACTIONS IF PERFORMED PROTEIN 41026 [facility] XCPT 4 [facility] REFRACTOM INC INC ETRY SERUM PLASMA/WH L BLD BLOOD 64597 [facility] COUNT 4 [facility] COMPLETE INC INC AUTO&AUTO DIFRNTL WBC SUSCEPTIB 58566 [facility] LTY STDY 4 [facility] ANTIMICRB INC INC IAL MICRO/AGA R DILUTJ CREATININ 68380 [facility] E OTHER 4 [facility] SOURCE INC INC COLLECTIO 82278 [facility] N VENOUS 4 [facility] BLOOD INC INC VENIPUNCT URE RENAL 62091 [facility] FUNCTION 4 [facility] PANEL INC INC URNLS DIP 28055 [facility] STICK/TAB INC INC LET REAGENT AUTO MICROSCOP Y CULTURE 88622 [facility] BACTERIAL 4 [facility] INC INC QUANTTATI VE COLONY COUNT URINE CULTURE 63980 [facility] BCT 4 [facility] ISOL&PRSM INC INC PTV ID ISOLATE EA URINE COMPREHEN 05771 COMBINED COMBINED SIVE 4 PHYSICIAN PHYSICIAN METABOLIC S LA S LA PANEL COMPREHEN 77530 [facility] SIVE 4 [facility] METABOLIC INC INC PANEL CREATINE 07414 [facility] KINASE MB 4 [facility] FRACTION INC INC ONLY URNLS DIP 77168 [facility] STICK/TAB INC INC LET REAGENT AUTO MICROSCOP Y RADIOLOGI 77462 [facility] C EXAM 4 [facility] CHEST 2 INC INC VIEWS FRONTAL&L ATERAL PRESSURIZ 46588 [facility] ED/NONPRE 4 [facility] SSURIZED INC INC INHALATIO N TREATMENT BLOOD 61987 [facility] COUNT 4 [facility] COMPLETE INC INC AUTO&[place] [address] [facility] TROPONIN 4 [facility] QUANTITAT INC INC MARIBEL CREATINE 49722 [facility] KINASE 4 [facility] TOTAL INC INC 25 68600 [facility] HYDROXY 4 [facility] INCLUDES INC INC FRACTIONS IF PERFORMED BLOOD 07117 [facility] COUNT 4 [facility] COMPLETE INC INC AUTO&AUTO DIFRNTL WBC RENAL 72179 [facility] FUNCTION 4 [facility] PANEL INC INC COLLECTIO 86817 [facility] N VENOUS 4 [facility] BLOOD INC INC VENIPUNCT URE INJECTION J0897 [facility] DENOSUMAB INC INC 1 MG THERAPEUT 88680 [facility] IC 4 [facility] PROPHYLAC INC INC TIC/DX INJECTION SUBQ/IM BASIC 31324 COMBINED COMBINED METABOLIC 4 PHYSICIAN PHYSICIAN PANEL S LA S LA CALCIUM TOTAL COMPREHEN 74851 COMBINED COMBINED SIVE 4 PHYSICIAN PHYSICIAN METABOLIC S LA S LA PANEL COLLECTIO 75021 [facility] N VENOUS 4 [facility] BLOOD INC INC VENIPUNCT URE BASIC 08582 [facility] D[facility] METABOLIC 4 [facility] PANEL INC INC CALCIUM TOTAL THERAPEUT 84403 [facility] IC [facility] INC TIC/DX INJECTION SUBQ/IM INJECTION J0897 [facility]ACK [facility] DENOSUMAB INC INC 1 MG INJECTION 65475 [facility] 1 [place] 3 PHYSICIAN PHYSICIAN S GROUP S GROUP SHEATH/LI GAMENT APONEUROS IS ARTHROCEN 13589 [facility] PETTEY TESIS 3 PHYSICIAN JAM ASPIR&/IN S GROUP J MAJOR JT/BURSA W/O US INJ [id number] [facility] PETTEAg BETAMETHA 3 PHYSICIAN TONI SONE S GROUP ACETATE & PHOSPHATE 3 MG DXA BONE 13868 [place] SHERI DENSITY 3 MEDICAL MELIDA STUDY 1/> IMAGING SITES ASS AXIAL SKEL 25 98225 ZACK DIXON HYDROXY 3 [facility] INCLUDES INC [place] [address] ZACK DIXON PARATHORM 3 [facility] ONE INC INC BASIC 11558 COMBINED COMBINED METABOLIC 3 PHYSICIAN PHYSICIAN PANEL S LA S LA CALCIUM TOTAL BLOOD 08896 ZACK DIXON COUNT 3 [facility] COMPLETE INC INC AUTO&AUTO DIFRNTL WBC COLLECTIO 65352 ZACK DIXON N VENOUS 3 [facility] BLOOD INC INC VENIPUNCT URE RENAL 52677 ZACK DIXON FUNCTION 3 [facility] PANEL INC INC URNLS DIP 55861 ZACK DIXON 3 [facility] STICK/TAB INC INC LET REAGENT AUTO MICROSCOP Y ALBUMIN 66456 ZACK DIXON URINE 3 [facility] MICROALBU INC INC MIN QUANTIATI VE RADIOLOGI 96623 [place] SHERI C EXAM 3 MEDICAL MELIDA CHEST 2 IMAGING VIEWS ASS FRONTAL&[place] [address] ZACK DIXON STREPTOCO 3 [facility] CCUS INC INC GROUP A CUL BACT 02693 ZACK DIXON XCPT 3 [facility] URINE INC INC BLOOD/STO OL AEROBIC ISOL IAADI 53421 ZACK DIXON INFLUENZA 3 [facility] B VIRUS INC INC IAADI 81126 ZACK DIXON INFFLUENZ 3 [facility] [place] [address] COMBINED COMBINED BLOOD/URI 3 PHYSICIAN PHYSICIAN C ACID S LA S LA BASIC 29151 COMBINED COMBINED METABOLIC 3 PHYSICIAN PHYSICIAN PANEL S LA S LA CALCIUM TOTAL THER 60543 ZACK DIXON PROPH/DX 3 [facility] NJX IV INC INC PUSH SINGLE/1S T SBST/DRUG CREATINE 96582 ZACK DIXON KINASE 3 [facility] TOTAL INC INC BLOOD 06170 ZACK DIXON COUNT 3 [facility] COMPLETE INC INC AUTO&[place] [address] ZACK DIXON TROPONIN 3 [facility] QUANTITAT INC INC MARIBEL TECHNETIU A9567 ZACK Flanagan TC-99M 3 [facility] PENTETATE INC INC DX AEROSOL TO 75 MCI CREATINE 59175 ZACK DIXON KINASE MB 3 [facility] FRACTION INC INC ONLY COMPREHEN 23785 ZACK DIXON SIVE 3 [facility] METABOLIC INC INC PANEL RADIOLOGI 60059 ZACK Lopez EXAM 3 [facility] CHEST 2 INC INC VIEWS FRONTAL&L ATERAL RADIOLOGI 19494 ZACK Lopez 3 [facility] EXAMINATI INC INC ON [place] FRONTAL RHYTHM 53559 ZACK DIXON ECG 1-3 3 [facility] LEADS INC INC TRACING ONLY W/O I&R ECG 95357 EMEKA LIRA ROUTINE 3 EMERGENCY ECG SERVICES W/LEAST 12 LDS I&R ONLY PULMONARY 00326 ZACK DIXON 3 [facility] VENTILATI INC INC ON & PERFUSION IMAGING FIBRIN 36652 ZACK DIXON DGRADJ 3 [facility] PRODUCTS INC INC D-DIMER QUAL/SEMI BARB TECHNETIU A9540 ZACK Flanagan TC-99M 3 [facility] MAA DX INC INC STDY DOSE UP TO 10 MCI ECG 93205 ZACK DIXON ROUTINE 3 [facility] ECG INC INC W/LEAST 12 LDS TRCG ONLY W/O I&R RENAL 09488 ZACK DIXON FUNCTION 3 [facility] PANEL INC INC COLLECTIO 85772 ZACK DIXON N VENOUS 3 [facility] BLOOD INC INC VENIPUNCT URE BLOOD 85709 ZACK DIXON COUNT 3 [facility] COMPLETE INC INC AUTO&AUTO DIFRNTL WBC THERAPEUT 21910 ZACK DIXON IC 3 [facility] PROPHYLAC INC INC TIC/DX INJECTION SUBQ/IM INJECTION J0897 ZACK DIXON 3 [facility] DENOSUMAB INC INC 1 MG APPLICATI 25055 ZACK DIXON ON 3 [facility] MODALITY INC INC 1/> AREAS HOT/COLD PACKS E-STIM G0283 ZACK DIXON 1/> AREAS 3 [facility] OTH THAN INC INC WND CARE PART TX PLAN APPL 44369 ZACK DIXON MODALITY 3 [facility] 1/> AREAS INC INC 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 52190 ZACK DIXON IC PX 1/> 3 [facility] AREAS INC INC EACH 15 MIN EXERCISES THERAPEUT 89703 ZACK DIXON IC PX 1/> 3 [facility] AREAS INC INC EACH 15 MIN EXERCISES E-STIM G0283 ZACK DIXON 1/> AREAS 3 [facility] OTH THAN INC INC WND CARE PART TX PLAN APPL 35280 ZACK DIXON MODALITY 3 [facility] 1/> AREAS INC INC 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 APPLICATI 77839 ZACK DIXON ON 3 [facility] MODALITY INC INC 1/> AREAS HOT/COLD PACKS APPLICATI 21733 ZACK DIXON ON 3 [facility] MODALITY INC INC 1/> AREAS HOT/COLD PACKS E-STIM G0283 ZACK DIXON 1/> AREAS 3 [facility] OTH THAN INC INC WND CARE PART TX PLAN APPL 27746 ZACK DIXON MODALITY 3 [facility] 1/> AREAS INC INC 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 41883 ZACK DIXON IC PX 1/> 3 [facility] AREAS INC INC EACH 15 MIN EXERCISES THERAPEUT 31467 ZACK DIXON IC PX 1/> 3 [facility] AREAS INC INC EACH 15 MIN EXERCISES APPL 33047 ZACK DIXON MODALITY 3 [facility] 1/> AREAS INC INC 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 G0283 ZACK DIXON 1/> AREAS 3 [facility] OTH THAN INC INC WND CARE PART TX PLAN APPLICATI 64407 ZACK DIXON ON 3 [facility] MODALITY INC INC 1/> AREAS HOT/COLD PACKS E-STIM G0283 ZACK DIXON 1/> AREAS 3 [facility] OTH THAN INC INC WND CARE PART TX PLAN THERAPEUT 85778 ZACK DIXON IC PX 1/> 3 [facility] AREAS INC INC EACH 15 MIN EXERCISES THERAPEUT 28262 ZACK DIXON IC PX 1/> 3 [facility] AREAS INC INC EACH 15 MIN EXERCISES E-STIM G0283 ZACK DIXON 1/> AREAS 3 [facility] OTH THAN INC INC WND CARE PART TX PLAN CULTURE 78478 COMBINED COMBINED BACTERIAL 3 PHYSICIAN PHYSICIAN S LA S LA QUANTTATI VE COLONY COUNT URINE APPL 37959 ZACK DIXON MODALITY 3 [facility] 1/> AREAS INC INC 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 APPLICATI 06039 ZACK DIXON ON 3 [facility] MODALITY INC INC 1/> AREAS HOT/COLD PACKS APPLICATI 71524 ZACK DIXON ON 3 [facility] MODALITY INC INC 1/> AREAS HOT/COLD PACKS APPL 43067 ZACK DIXON MODALITY 3 [facility] 1/> AREAS INC INC 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 54518 ZACK DIXNO IC PX 1/> 3 [facility] AREAS INC INC EACH 15 MIN EXERCISES E-STIM G0283 ZACK DIXON 1/> AREAS 3 [facility] OTH THAN INC INC WND CARE PART TX PLAN THERAPEUT 24060 ZACK DIXON IC PX 1/> 3 [facility] AREAS INC INC EACH 15 MIN EXERCISES APPL 20671 ZACK DIXON MODALITY 3 [facility] 1/> AREAS INC INC 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 G0283 ZACK ZACK 1/> AREAS 3 [facility] OTH THAN INC INC WND CARE PART TX PLAN THERAPEUT 85610 ZACK DIXON IC PX 1/> 3 [facility] AREAS INC INC EACH 15 MIN EXERCISES APPL 94413 ZACK DIXON MODALITY 3 [facility] 1/> AREAS INC INC ULTRASOUN D EA 15 MIN APPLICATI 31997 ZACK DIXON ON 3 [facility] MODALITY INC INC 1/> AREAS HOT/COLD PACKS THERAPEUT 50726 ZACK DIXON IC PX 1/> 3 [facility] AREAS INC INC EACH 15 MIN EXERCISES E-STIM G0283 ZACK DIXON 1/> AREAS 3 [facility] OTH THAN INC INC WND CARE PART TX PLAN APPL 04578 ZACK DIXON MODALITY 3 [facility] 1/> AREAS INC INC 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 APPL 56527 ZACK DIXON MODALITY 3 [facility] 1/> AREAS INC INC 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 G0283 ZACK DIXON 1/> AREAS 3 [facility] OTH THAN INC INC WND CARE PART TX PLAN THERAPEUT 38806 ZACK DIXON IC PX 1/> 3 [facility] AREAS INC INC EACH 15 MIN EXERCISES APPLICATI 51489 ZACK DIXON ON 3 [facility] MODALITY INC INC 1/> AREAS HOT/COLD PACKS APPLICATI 32674 ZACK DIXON ON 3 [facility] MODALITY INC INC 1/> AREAS HOT/COLD PACKS APPL 56236 ZACK DIXON MODALITY 3 [facility] 1/> AREAS INC INC ULTRASOUN D EA 15 MIN THERAPEUT 97004 ZACK DIXON IC PX 1/> 3 [facility] AREAS INC INC EACH 15 MIN EXERCISES APPL 17333 ZACK DIXON MODALITY 3 [facility] 1/> AREAS INC INC 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 G0283 ZACK DIXON 1/> AREAS 3 [facility] OTH THAN INC INC WND CARE PART TX PLAN E-STIM G0283 ZACK DIXON 1/> AREAS 3 [facility] OTH THAN INC INC WND CARE PART TX PLAN APPL 29672 ZACK DIXON MODALITY 3 [facility] 1/> AREAS INC INC 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 63492 ZACK DIXON IC PX 1/> 3 [facility] AREAS INC INC EACH 15 MIN EXERCISES APPL 87348 ZACK DIXON MODALITY 3 [facility] 1/> AREAS INC INC ULTRASOUN D EA 15 MIN APPL 03396 ZACK DIXON MODALITY 3 [facility] 1/> AREAS INC INC ULTRASOUN D EA 15 MIN BLOOD 22127 ZACK ZACK COUNT 3 [facility] COMPLETE INC INC AUTO&AUTO DIFRNTL WBC SUSCEPTIB 01870 ZACK ZACK LTY STDY 3 [facility] ANTIMICRB INC INC IAL MICRO/[place] [address] ZACK DIXON PARATHORM 3 [facility] ONE INC INC 25 31432 ZACK DIXON HYDROXY 3 [facility] INCLUDES INC [place] [address] ZACK DIXON NEPHELOME 3 [facility] TRY EACH INC INC ANALYTE YANELY COLLECTIO 62235 ZACK DIXON N VENOUS 3 [facility] BLOOD INC INC VENIPUNCT URE RENAL 42347 ZACK DIXON FUNCTION 3 [facility] PANEL INC INC URNLS DIP 14609 ZACK ZACK 3 [facility] STICK/TAB INC INC LET REAGENT AUTO MICROSCOP Y THERAPEUT 11230 ZACK DIXON IC PX 1/> 3 [facility] AREAS INC INC EACH 15 MIN EXERCISES PROTEIN 50581 ZACK DIXON ELECTROPH 3 [facility] ORETIC INC INC FRACTJ&QU ANTJ SERUM APPL 16409 ZACK DIXON MODALITY 3 [facility] 1/> AREAS INC INC 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 CULTURE 42490 ZACK DIXON BCT 3 [facility] ISOL&PRSM INC INC PTV ID ISOLATE EA URINE E-STIM G0283 ZACK DIXON 1/> AREAS 3 [facility] OTH THAN INC INC WND CARE PART TX PLAN CULTURE 97951 ZACK DIXON BACTERIAL 3 [facility] INC INC QUANTTATI VE COLONY COUNT URINE E-STIM G0283 ZACK DIXON 1/> AREAS 3 [facility] OTH THAN INC INC WND CARE PART TX PLAN APPL 76698 ZACK DIXON MODALITY 3 [facility] 1/> AREAS INC INC 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 25804 ZACK DIXON IC PX 1/> 3 [facility] AREAS INC INC EACH 15 MIN EXERCISES APPLICATI 16136 ZACK DIXON ON 3 [facility] MODALITY INC INC 1/> AREAS HOT/COLD PACKS APPLICATI 12322 ZACK DIXON ON 3 [facility] MODALITY INC INC 1/> AREAS HOT/COLD PACKS APPL 67016 ZACK DIXON MODALITY 3 [facility] 1/> AREAS INC INC ULTRASOUN D EA 15 MIN THERAPEUT 56545 ZACK DIXON IC PX 1/> 3 [facility] AREAS INC INC EACH 15 MIN EXERCISES APPL 64654 ZACK DIXON MODALITY 3 [facility] 1/> AREAS INC INC 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 G0283 ZACK DIXON 1/> AREAS 3 [facility] OTH THAN INC INC WND CARE PART TX PLAN APPL 23254 ZACK DIXON MODALITY 3 [facility] 1/> AREAS INC INC 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 G0283 ZACK ZACK 1/> AREAS 3 [facility] OTH THAN INC INC WND CARE PART TX PLAN THERAPEUT 62574 ZACK DIXON IC PX 1/> 3 [facility] AREAS INC INC EACH 15 MIN EXERCISES APPL 87055 ZACK DIXON MODALITY 3 [facility] 1/> AREAS INC INC ULTRASOUN D EA 15 MIN APPL 19730 ZACK ZACK MODALITY 3 [facility] 1/> AREAS INC INC ULTRASOUN D EA 15 MIN APPLICATI 85996 ZACK DIXON ON 3 [facility] MODALITY INC INC 1/> AREAS HOT/COLD PACKS THERAPEUT 57985 ZACK ZACK IC PX 1/> 3 [facility] AREAS INC INC EACH 15 MIN EXERCISES APPL 79267 ZACK DIXON MODALITY 3 [facility] 1/> AREAS INC INC 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 G0283 ZACK DIXON 1/> AREAS 3 [facility] OTH THAN INC INC WND CARE PART TX PLAN APPL 66300 ZACK DIXON MODALITY 3 [facility] 1/> AREAS INC INC 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 87272 ZACK ZACK IC PX 1/> 3 [facility] AREAS INC INC EACH 15 MIN EXERCISES BASIC 44725 COMBINED COMBINED METABOLIC 3 PHYSICIAN PHYSICIAN PANEL S LA S LA CALCIUM TOTAL APPL 92259 ZACK DIXNO MODALITY 3 [facility] 1/> AREAS INC INC ULTRASOUN D EA 15 MIN APPL 05157 ZACK DIXON MODALITY 3 [facility] 1/> AREAS INC INC ULTRASOUN D EA 15 MIN THERAPEUT 44165 ZACK DIXON IC PX 1/> 3 [facility] AREAS INC INC EACH 15 MIN EXERCISES APPL 29819 ZACK DIXON MODALITY 3 [facility] 1/> AREAS INC INC 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 G0283 ZACK DIXON 1/> AREAS 3 [facility] OTH THAN INC INC WND CARE PART TX PLAN E-STIM G0283 ZACK DIXON 1/> AREAS 3 [facility] OTH THAN INC INC WND CARE PART TX PLAN APPL 94397 ZACK DIXON MODALITY 3 [facility] 1/> AREAS INC INC 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 60297 ZACK DIXON IC PX 1/> 3 [facility] AREAS INC INC EACH 15 MIN EXERCISES APPL 26716 ZACK DIXON MODALITY 3 [facility] 1/> AREAS INC INC ULTRASOUN D EA 15 MIN APPL 41274 ZACK DIXON MODALITY 3 [facility] 1/> AREAS INC INC ULTRASOUN D EA 15 MIN APPLICATI 04636 ZACK DIXON ON 3 [facility] MODALITY INC INC 1/> AREAS HOT/COLD PACKS THERAPEUT 23527 ZACK DIXON IC PX 1/> 3 [facility] AREAS INC INC EACH 15 MIN EXERCISES E-STIM G0283 ZACK DIXON 1/> AREAS 3 [facility] OTH THAN INC INC WND CARE PART TX PLAN E-STIM G0283 ZACK DIXON 1/> AREAS 3 [facility] OTH THAN INC INC WND CARE PART TX PLAN THERAPEUT 18414 ZACK DIXON IC PX 1/> 3 [facility] AREAS INC INC EACH 15 MIN EXERCISES APPL 80015 ZACK DIXON MODALITY 3 [facility] 1/> AREAS INC INC ULTRASOUN D EA 15 MIN THERAPEUT 35957 ZACK DIXON IC PX 1/> 3 [facility] AREAS INC INC EACH 15 MIN EXERCISES E-STIM G0283 ZACK DIXON 1/> AREAS 3 [facility] OTH THAN INC INC WND CARE PART TX PLAN APPL 13439 ZACK DIXON MODALITY 3 [facility] 1/> AREAS INC INC 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 G0283 ZACK DIXON 1/> AREAS 3 [facility] OTH THAN INC INC WND CARE PART TX PLAN THERAPEUT 76043 ZACK DIXON IC PX 1/> 3 [facility] AREAS INC INC EACH 15 MIN EXERCISES APPLICATI 23614 ZACK DIXON ON 3 [facility] MODALITY INC INC 1/> AREAS HOT/COLD PACKS APPL 15616 ZACK DIXON MODALITY 3 [facility] 1/> AREAS INC INC ULTRASOUN D EA 15 MIN APPL 65768 ZACK DIXON MODALITY 3 [facility] 1/> AREAS INC INC 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 52177 ZACK DIXON IC PX 1/> 3 [facility] AREAS INC INC EACH 15 MIN EXERCISES E-STIM G0283 ZACK DIXON 1/> AREAS 3 [facility] OTH THAN INC INC WND CARE PART TX PLAN E-STIM G0283 ZACK DIXON 1/> AREAS 3 [facility] OTH THAN INC INC WND CARE PART TX PLAN THERAPEUT 16936 ZACK DXION IC PX 1/> 3 [facility] AREAS INC INC EACH 15 MIN EXERCISES APPL 13419 ZACK DIXON MODALITY 3 [facility] 1/> AREAS INC INC 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 APPL 45810 ZACK DIXON MODALITY 3 [facility] 1/> AREAS INC INC ULTRASOUN D EA 15 MIN APPLICATI 07752 ZACK DIXON ON 3 [facility] MODALITY INC INC 1/> AREAS HOT/COLD PACKS APPLICATI 97600 ZACK DIXON ON 3 [facility] MODALITY INC INC 1/> AREAS HOT/COLD PACKS APPL 03081 ZACK DIXON MODALITY 3 [facility] 1/> AREAS INC INC ULTRASOUN D EA 15 MIN APPL 83244 ZACK DIXON MODALITY 3 [facility] 1/> AREAS INC INC 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 G0283 ZACK DIXON 1/> AREAS 3 [facility] OTH THAN INC INC WND CARE PART TX PLAN E-STIM G0283 ZACK DIXON 1/> AREAS 3 [facility] OTH THAN INC INC WND CARE PART TX PLAN THERAPEUT 53847 ZACK DIXON IC PX 1/> 3 [facility] AREAS INC INC EACH 15 MIN EXERCISES APPL 84073 ZACK ZACK MODALITY 3 [facility] 1/> AREAS INC INC 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 APPL 75556 ZACK DIXON MODALITY 3 [facility] 1/> AREAS INC INC ULTRASOUN D EA 15 MIN APPLICATI 02696 ZACK DIXON ON 3 [facility] MODALITY INC INC 1/> AREAS HOT/COLD PACKS APPLICATI 68428 ZACK DIXON ON 3 [facility] MODALITY INC INC 1/> AREAS HOT/COLD PACKS APPL 44177 ZACK DIXON MODALITY 3 [facility] 1/> AREAS INC INC ULTRASOUN D EA 15 MIN APPL 40430 ZACK DIXON MODALITY 3 [facility] 1/> AREAS INC INC 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 19044 ZACK ZACK IC PX 1/> 3 [facility] AREAS INC INC EACH 15 MIN EXERCISES E-STIM G0283 ZACK ZACK 1/> AREAS 3 [facility] OTH THAN INC INC WND CARE PART TX PLAN THERAPEUT 91640 ZACK DIXON IC PX 1/> 3 [facility] AREAS INC INC EACH 15 MIN EXERCISES APPL 44389 ZACK DIXON MODALITY 3 [facility] 1/> AREAS INC INC ULTRASOUN D EA 15 MIN APPLICATI 40041 ZACK DIXON ON 3 [facility] MODALITY INC INC 1/> AREAS HOT/COLD PACKS PHYSICAL 26242 ZACK DIXON THERAPY 3 [facility] EVALUATIO INC INC N APPL 62678 ZACK DIXON MODALITY 3 [facility] 1/> AREAS INC INC 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 RADEX HIP 00107 LIZZ WADE 3 MEDICAL MELIDA [facility]ATERA IMAGING L ASS COMPLETE MINIMUM 2 VIEWS BASIC 81078 COMBINED COMBINED METABOLIC 3 PHYSICIAN PHYSICIAN [place] [address] COMBINED COMBINED BLOOD/URI 3 PHYSICIAN PHYSICIAN C ACID S LA S LA BASIC 20303 ZACK DIXON METABOLIC 2 [facility] PANEL INC INC CALCIUM TOTAL BLOOD 06397 ZACK DIXON COUNT 2 [facility] COMPLETE INC INC AUTO&AUTO D[facility]RNTL [facility] G0378 ZACK DIXON OBSERVATI 2 [facility] ON INC INC SERVICE PER HOUR GLUC BLD 58730 ZACK DIXON GLUC MNTR 2 [facility] DEV INC INC CLEARED FDA SPEC HOME USE COLLECTIO 97587 ZACK DIXON N VENOUS 2 [facility] BLOOD INC INC VENIPUNCT URE COLLECTIO 74413 ZACK DIXON N VENOUS 2 [facility] BLOOD INC INC VENIPUNCT URE CREATINE 52235 ZACK [facility]IXON KINASE MB 2 [facility] FRACTION INC INC ONLY TECHNETIU A9567 ZACK [facility]IXON M TC-99M 2 [facility] PENTETATE INC INC DX AEROSOL TO 75 MCI GLUC BLD 44700 ZACK DIXON GLUC MNTR 2 [facility] DEV INC INC CLEARED FDA SPEC HOME USE NONINVASI 36922 ZACK DIXON VE 2 [facility] EAR/[facility]ULSE INC INC [facility] G0378 ZACK DIXON OBSERVATI 2 [facility] [place] [address] ZACK DIXON TROPONIN 2 [facility] QUANTITAT INC INC MARIBEL BLOOD 08434 ZACK DIXON COUNT 2 [facility] COMPLETE INC INC AUTO&AUTO DIFRNTL WBC PULMONARY 91341 LIZZ WADE 2 MEDICAL MELIDA VENTILATI IMAGING ON & ASS PERFUSION IMAGING BASIC 02985 ZACK DIXON METABOLIC 2 [facility] PANEL INC INC CALCIUM TOTAL CREATINE 79088 ZACK DIXON KINASE 2 [facility] TOTAL INC INC ECHO 09386 [facility] TTHRC R-T 2 DINA [facility] 2D CARDIOLOG W/WOM-MOD Y CLINIC E COMPL SPEC&COLR D TECHNETIU A9540 ZACK Flanagan TC-99M 2 [facility] MAA DX INC INC STDY DOSE UP TO 10 MCI FIBRIN 39908 ZACK DIXON DGRADJ 2 [facility] PRODUCTS INC INC D-DIMER QUAL/SEMI BARB ECG 67478 ZACK DIXON ROUTINE 2 [facility] ECG INC INC W/LEAST 12 LDS TRCG ONLY W/O I&R ECG 76132 ZACK LIAOSON ROUTINE 2 [facility] W/LEAST P 12 LDS I&R ONLY CREATINE 59838 ZACK DIXON KINASE 2 [facility] TOTAL INC INC THERAPEUT 49602 ZACK DIXON IC 2 [facility] PROPHYLAC INC INC TIC/DX INJECTION SUBQ/IM BASIC 99353 ZACK DIXON METABOLIC 2 [facility] PANEL INC INC CALCIUM [facility]OTAL CULTURE 43318 [facility] BACTERIAL 2 [facility] BLOOD INC INC AEROBIC W/ID ISOLATES BLOOD 17481 [facility] COUNT [facility] COMPLETE INC INC AUTO&[place] [address] [facility] TROPONIN 2 [facility] QUANTITAT INC INC [facility] G0378 [facility] OBSERVATI 2 [facility] ON INC INC SERVICE PER HOUR NATRIURET 15163 [facility] IC 2 [facility] PEPTIDE INC INC GLUC BLD 29315 [facility] GLUC MNTR 2 [facility] DEV INC INC CLEARED FDA SPEC HOME USE URNLS DIP 02344 [facility] STICK/TAB INC INC LET REAGENT AUTO MICROSCOP Y RADIOLOGI 38996 [facility] C EXAM 2 [facility] CHEST 2 INC INC VIEWS FRONTAL&L ATERAL CREATINE 04919 [facility] KINASE MB 2 [facility] FRACTION INC INC ONLY COLLECTIO 01282 [facility] N VENOUS 2 [facility] BLOOD INC INC VENIPUNCT URE BLOOD 78062 [facility] COUNT 2 [facility] COMPLETE INC INC AUTO&AUTO DIFRNTL WBC BASIC 20670 [facility] DXION METABOLIC 2 [facility] PANEL INC INC CALCIUM TOTAL THERAPEUT 68994 [facility] IC 2 [facility] PROPHYLAC INC INC TIC/DX INJECTION SUBQ/IM INJECTION J0897 [facility] DENOSUMAB INC INC 1 MG CREATININ 42023 [facility] E OTHER [facility] SOURCE INC INC COLLECTIO 54279 [facility] N VENOUS 2 [facility] BLOOD INC INC VENIPUNCT URE RENAL 69204 [facility] DIXON FUNCTION 2 [facility] PANEL INC INC URNLS DIP 98791 [facility] DIXON 2 [facility] STICK/TAB INC INC [place] [address] [facility] PARATHORM 2 [facility] ONE INC INC 25 54089 [facility] D[facility] HYDROXY 2 [facility] INCLUDES INC INC FRACTIONS IF PERFORMED DXA BONE 74216 [facility] DENSITY 2 MEDICAL MELIDA STUDY 1/> IMAGING SITES ASS AXIAL SKEL BLOOD 17732 [facility] COUNT 2 [facility] COMPLETE INC INC AUTO&AUTO DIFRNTL WBC PROTEIN 35217 [facility] XCPT 2 [facility] REFRACTOM INC INC ETRY SERUM PLASMA/WH L BLD CONTINUOU E0601 REID [facility] S 2 HOME [...] USED EQUIPME EQUIPME W/POS ARWAY PRESS DEVICE HUMDIFIR [id number] REID [facility]HE[facility] HEATED 2 HOME HOME USED MEDICAL MEDICAL W/POS EQUIPME EQUIPME ARWAY PRESSURE DEVICE NASL [id number] REID [facility] INTRFCE 2 HOME HOME POS [facility] MEDICAL MEDICAL PRSS EQUIPME EQUIPME DEVC W/WO HEAD STRAP HEADGEAR [id number] REID MATHE[facility] USED 2 HOME HOME W/POSITIV MEDICAL MEDICAL E AIRWAY EQUIPME EQUIPME PRESSURE DEVICE CV STRS [address]3671 [facility] TST 2 PHYSICIAN XERS&/OR S GROUP RX CONT ECG W/O I&R MYOCARDIA 05216 [facility] 2 [facility] STUDIES Y CLINIC CV STRS 97454 [facility] TST 2 [facility] XERS&/OR HOSPITAL RX CONT P ECG I&R ONLY SUSCEPTIB 77878 [facility] LTY STDY 2 [facility] ANTIMICRB INC INC IAL MICRO/AGA R DILUTJ POLYSOM 45857 [facility] DIXON 6/>YRS 2 [facility] SLEEP INC INC W/CPAP 4/> ADDL HARSHIL ATTND CULTURE 12570 [facility] BCT 2 [facility] ISOL&PRSM INC INC PTV ID ISOLATE EA URINE CULTURE 16585 [facility] BACTERIAL 2 [facility] INC INC [place] [address] [facility] PARATHORM 2 [facility] ONE INC INC 25 27123 [facility] HYDROXY 2 [facility] INCLUDES INC INC FRACTIONS IF PERFORMED BLOOD 82648 [facility] COUNT 2 [facility] COMPLETE INC INC AUTO&AUTO DIFRNTL WBC PROTEIN 83329 [facility] XCPT 2 [facility] REFRACTOM INC INC ETRY SERUM PLASMA/WH L BLD CREATININ 09477 [facility] D[facility] E OTHER 2 [facility] SOURCE INC INC COLLECTIO 67970 [facility] D[facility] N VENOUS 2 [facility] BLOOD INC INC VENIPUNCT URE URNLS DIP 95954 [facility] STICK/TAB INC INC LET REAGENT AUTO MICROSCOP Y RENAL 72132 ZACK DIXON FUNCTION 2 [facility] PANEL INC INC POLYSOM 91801 ESTIVEN JEAN-BAPTISTE 6/>YRS 2 LEIGHTON LEIGHTON SLEEP 4/> ADDL HARSHIL ATTND LANCETS A4259 REID MATHEWS PER BOX 2 HOME HOME OF 100 MEDICAL MEDICAL EQUIPME EQUIPME BLD GLU A4253 REID MATHEWS TEST/REAG 2 HOME HOME T STRIPS MEDICAL MEDICAL HOME BLD EQUIPME EQUIPME GLU MON-50 POLYSOM 30402 ZACK DIXON 6/>YRS 2 [facility] SLEEP / INC INC ADDL HARSHIL ATTND RADIOLOGI 58820 ZACK ZACK C 2 [facility] EXAMINATI INC [place] [address] ZACK DIXON HEAD/BRAI 2 [facility] N W/O INC INC CONTRAST MATERIAL RADEX 84637 [place] SPINE 2 MEDICAL MELIDA THORACIC IMAGING 3 VIEWS ASS URNLS DIP 94211 ZACK DIXON 2 [facility] STICK/TAB INC INC LET REAGENT AUTO MICROSCOP Y RADEX 71333 [place] SPINE 2 MEDICAL MELIDA LUMBOSACR IMAGING AL ASS MINIMUM 4 VIEWS CREATINE 61545 ZACK DIXON KINASE MB 2 [facility] FRACTION INC INC ONLY BASIC 33671 ZACK DIXON METABOLIC 2 [facility] PANEL INC INC CALCIUM TOTAL CREATINE 34938 ZACK DIXON KINASE 2 [facility] [place] [address] ZACK DIXON TROPONIN 2 [facility] QUANTITAT INC INC MARIBEL BLOOD 00335 ZACK DIXON COUNT 2 [facility] COMPLETE INC INC AUTO&AUTO DIFRNTL WBC ECG 37759 EMEKA SHIN ROUTINE 2 EMERGENCY III NANCY ECG SERVICES W/LEAST 12 LDS I&R ONLY ECG 08779 ZACK DIXON ROUTINE 2 [facility] ECG INC INC W/LEAST 12 LDS TRCG ONLY W/O I&R 3D 89203 ZACK DIXON RENDERING 2 [facility] W/INTERP INC INC & [place] [address] ZACK DIXON PHOSPHORU 2 [facility] [place] [address] ZACK DIXON BLOOD/URI 2 [facility] C ACID INC INC 25 45356 ZACK DIXON HYDROXY 2 [facility] INCLUDES [place] [address] ZACK DIXON PARATHORM 2 [facility] [place] [address] ZACK DIXON FERRITIN 2 [facility] INC INC CYANOCOBA 25911 ZACK DIXON SOHA 2 [facility] VITAMIN INC INC B-12 BASIC 82207 ZACK DIXON METABOLIC 2 [facility] [place] [address] ZACK DIXON FOLIC 2 [facility] [place] [address] ZACK DIXON IRON 2 [facility] INC INC RADIOLOGI 82563 [facility] EXAM 2 MEDICAL MELIDA SKULL IMAGING COMPLETE ASS MINIMUM 4 VIEWS RADEX 64226 ZACK DIXON SPINE 2 [facility] CERVICAL INC INC 6 OR MORE VIEWS IRRIGAJ 68803 ZACK DIXON IMPLNTD 2 [facility] VENOUS INC INC ACCESS DRUG DELIVERY SYST IRON 35531 ZACK DIXON BINDING 2 [facility] CAPACITY INC INC GLUC BLD 82447 ZACK DIXON GLUC MNTR 2 [facility] DEV INC INC CLEARED FDA SPEC HOME USE GLUC BLD 16846 ZACK DIXON GLUC MNTR 2 [facility] DEV INC INC CLEARED FDA SPEC HOME USE NONINVASI 75661 ZACK DIXON VE 2 [facility] EAR/PULSE INC INC OXIMETRY SINGLE DETER BASIC 83541 ZACK DIXON METABOLIC 2 [facility] PANEL INC INC CALCIUM TOTAL BLOOD 80298 ZACK DIXON COUNT 2 [facility] COMPLETE INC INC AUTO&AUTO DIFRNTL [facility] G0378 ZACK DIXON OBSERVATI 2 [facility] ON INC INC [facility] G0378 ZACK ZACK OBSERVATI 2 [facility] [place] [address] ZACK DIXON TROPONIN 2 [facility] QUANTITAT INC INC MARIBEL BLOOD 12679 ZACK DIXON COUNT 2 [facility] COMPLETE INC INC AUTO&AUTO DIFRNTL WBC PULMONARY 66504 [facility] BRIAN[facility]ERI 2 MEDICAL MELIDA VENTILATI IMAGING ON & ASS PERFUSION IMAGING BASIC 17505 ZACK DIXON METABOLIC 2 [facility] PANEL INC INC CALCIUM TOTAL CREATINE 45192 ZACK DIXON KINASE 2 [facility] TOTAL INC INC NONINVASI 36819 ZACK DIXON VE 2 [facility] EAR/PULSE INC INC OXIMETRY SINGLE DETER INITIAL 58885 [facility] 2 PHYSICIAN CARE/DAY S GROUP 50 MINUTES GLUC BLD 32718 ZACK DIXON GLUC MNTR 2 [facility] DEV INC INC CLEARED FDA SPEC HOME USE RADIOLOGI 77395 [facility] DIASSHERI C EXAM 2 MEDICAL MELIDA CHEST 2 IMAGING VIEWS ASS FRONTAL&L ATERAL CREATINE 83694 ZACK DIXON KINASE MB 2 [facility] FRACTION INC INC ONLY TECHNETIU A9567 ZACK Flanagan TC-99M 2 [facility] HOSP PENTETATE INC INC DX AEROSOL TO 75 MCI ECHO 07825 [facility] TTHRC R-T 2 DINA MORA 2D CARDIOLOG W/WOM-MOD Y CLINIC E COMPL SPEC&COLR D ECG 46000 ZACK MCLEAN ROUTINE 2 [facility] W/LEAST P 12 LDS I&R ONLY TECHNETIU A9540 ZACK Flanagan TC-99M 2 [facility] MAA DX INC INC STDY DOSE UP TO 10 MCI ECG 24133 ZACK DIXON ROUTINE 2 [facility] ECG INC INC W/LEAST 12 LDS TRCG ONLY W/O I&R ECG 72472 ZACKSHANDA ELLIOTTON ROUTINE 2 [facility] ECG INC INC W/LEAST 12 LDS TRCG ONLY W/O I&R FIBRIN 03992 ZACK DIXON DGRADJ 2 [facility] PRODUCTS INC INC D-DIMER QUAL/SEMI BARB ECG 96824 EMEKA WILCOX ROUTINE 2 EMERGENCY [facility] ECG SERVICES W/LEAST 12 LDS I&R ONLY CULTURE 50298 ZACK DIXON BACTERIAL 2 [facility] INC INC QUANTTATI VE COLONY COUNT URINE CULTURE 88303 ZACK DIXON BCT 2 [facility] ISOL&PRSM INC INC PTV ID ISOLATE EA URINE CREATINE 69038 ZACK DIXON KINASE MB 2 [facility] FRACTION INC INC ONLY COMPREHEN 23295 ZACK DIXON SIVE 2 [facility] METABOLIC INC INC PANEL URNLS DIP 09531 ZACK DIXON 2 [facility] STICK/TAB INC INC LET REAGENT AUTO MICROSCOP Y NATRIURET 83273 ZACK DIXON IC 2 [facility] PEPTIDE INC INC RADIOLOGI 19862 [facility] 2 MEDICAL MELIDA EXAMINATI IMAGING ON CHEST ASS SINGLE VIEW FRONTAL CREATINE 64477 ZACK DIXON KINASE 2 [facility] TOTAL INC INC THERAPEUT 08229 ZACK DIXON IC 2 [facility] PROPHYLAC INC INC TIC/DX INJECTION SUBQ/IM BLOOD 36125 ZACK DIXON COUNT 2 [facility] COMPLETE INC INC AUTO&AUTO DIFRNTL WBC CULTURE 71619 ZACK DIXON BACTERIAL 2 [facility] BLOOD INC INC AEROBIC W/ID ISOLATES SUSCEPTIB 21472 ZACK DIXON LTY STDY 2 [facility] ANTIMICRB INC INC IAL MICRO/[place] [address] ZACK DIXON TROPONIN 2 [facility] QUANTITAT INC INC MARIBEL LANCETS A4259 REID MATHEWS PER BOX 2 HOME HOME OF 100 MEDICAL MEDICAL EQUIPME EQUIPME WALKER E0135 REID MATHEWS FOLDING 2 HOME HOME ADJUSTABL MEDICAL MEDICAL E OR EQUIPME EQUIPME FIXED HEIGHT HOME E0607 REID MATHEWS BLOOD 2 HOME HOME GLUCOSE MEDICAL MEDICAL MONITOR EQUIPME EQUIPME BLD GLU A4253 REID MATHEWS TEST/REAG 2 HOME HOME T STRIPS MEDICAL MEDICAL HOME BLD EQUIPME EQUIPME GLU MON-50 RADIOLOGI 49246 [place] C 2 MEDICAL MELIDA EXAMINATI IMAGING ON CHEST ASS SINGLE VIEW FRONTAL VENOUS 3893 ZACK DIXON CATHETERI 2 [facility] ZATION INC INC NOT ELSEWHERE CLASSIFIE D RADIOLOGI 87329 [place] C EXAM 2 MEDICAL MELIDA CHEST 2 IMAGING VIEWS ASS FRONTAL&L ATERAL RADIOLOGI 56745 [place] C EXAM 2 MEDICAL MELIDA CHEST 2 IMAGING VIEWS ASS FRONTAL&L ATERAL RADIOLOGI 80993 [place] C 2 MEDICAL MELIDA EXAMINATI IMAGING ON KNEE 3 ASS VIEWS COMPREHEN 01174 COMBINED COMBINED SIVE 2 PHYSICIAN PHYSICIAN METABOLIC S LA S LA PANEL COLLECTIO 82187 FAMILY STRAWZELL N VENOUS 2 CARE CRI BLOOD ASSOCIATE VENIPUNCT S, PSC URE CYANOCOBA 13541 COMBINED COMBINED SOHA 2 PHYSICIAN PHYSICIAN VITAMIN S LA S LA B-12 BLOOD 15226 FAMILY STRAWZELL COUNT 2 CARE CRI COMPLETE ASSOCIATE AUTO&AUTO [place], [place] [address] [place] RETROPERI 2 MEDICAL MELIDA TONEAL IMAGING REAL TIME ASS W/IMAGE COMPLETE HANDLG&/O 29571 FAMILY STRAWZELL R CONVEY 2 CARE CRI OF SPEC ASSOCIATE FOR TR S, PSC OFFICE TO LAB SEDIMENTA 78648 COMBINED COMBINED TION RATE 2 PHYSICIAN PHYSICIAN RBC S LA S LA NON-AUTOM ATED ANTINUCLE 74867 LAB ZOEY LAB ZOEY AR 2 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 YUNG RHEUMATOI 31104 COMBINED COMBINED D FACTOR 2 PHYSICIAN PHYSIC[place] [address] COMBINED COMBINED BLOOD/URI 2 PHYSICIAN PHYSICIAN C ACID S LA S LA HANDLG&/O 88462 FAMILY STRAWZELL R CONVEY 2 CARE CRI OF SPEC ASSOCIATE FOR TR S, PSC OFFICE TO LAB 25 72934 COMBINED COMBINED HYDROXY 2 PHYSICIAN PHYSICIAN INCLUDES S LA S LA FRACTIONS IF PERFORMED COLLECTIO 43529 FAMILY STRAWZELL N VENOUS 2 CARE CRI BLOOD ASSOCIATE VENIPUNCT S, PSC URE COMPREHEN 05632 COMBINED COMBINED SIVE 2 PHYSICIAN PHYSICIAN [place] [address] COMBINED COMBINED THYROID 2 PHYSICIAN PHYSICIAN STIMULATI S LA S LA NG HORMONE TSH HEMOGLOBI 38869 FAMILY STRAWZELL N 2 CARE CRI GLYCOSYLA ASSOCIATE ALEX A1C S, PSC LIPID 39719 FAMILY STRAWZELL PANEL 2 CARE CRI ASSOCIATE S, PSC RADIOLOGI 98582 ZACK DIXON C EXAM 2 [facility] CHEST 2 INC INC VIEWS FRONTAL&L ATERAL DUP-SCAN 13094 ZACK DIXON XTR VEINS 2 [facility] INC INC UNILATERA L/LIMITED STUDY RENAL 57082 ZACK DIXON FUNCTION 2 [facility] PANEL INC INC URNLS DIP 77968 ZACK DIXON 2 [facility] STICK/TAB INC INC LET REAGENT AUTO MICROSCOP Y HEPATIC 89102 ZACK DIXON FUNCTION 2 [facility] PANEL INC INC COLLECTIO 36213 ZACK DIXON N VENOUS 2 [facility] BLOOD INC INC VENIPUNCT URE BLOOD 58104 ZACK DIXON COUNT 2 [facility] COMPLETE INC INC AUTO&AUTO DIFRNTL WBC DEBRIDEME 52595 PAWSAT PAWSAT NT NAIL 2 MAR MAR ANY METHOD 1-5 THERAPEUT 58388 ZACK DIXON IC 1 [facility] PROPHYLAC INC INC TIC/DX INJECTION SUBQ/IM BASIC 63733 ZACK DIXON METABOLIC 1 [facility] PANEL INC INC CALCIUM TOTAL COLLECTIO 07401 ZACK DIXON N VENOUS 1 [facility] BLOOD INC INC VENIPUNCT URE COLLECTIO 04544 ZACK DIXON N VENOUS 1 [facility] BLOOD INC INC VENIPUNCT URE BASIC 98370 ZACK DIXON METABOLIC 1 [facility] PANEL INC INC CALCIUM TOTAL THERAPEUT 78163 ZACK ZACK IC 1 [facility] PROPHYLAC INC INC TIC/DX INJECTION SUBQ/[place] [address] ZACK DIXON PARATHORM 1 [facility] ONE INC INC 25 36604 ZACK DIXON HYDROXY 1 [facility] INCLUDES INC INC FRACTIONS IF PERFORMED PROTEIN 66107 ZACK DIXON XCPT 1 [facility] REFRACTOM INC INC ETRY SERUM PLASMA/WH L BLD BLOOD 46982 ZACKSHANDA DIXON COUNT 1 [facility] COMPLETE INC INC AUTO&AUTO DIFRNTL WBC COLLECTIO 65119 ZACK DIXON N VENOUS 1 [facility] BLOOD INC INC VENIPUNCT URE CREATININ 07329 ZACK DIXON E OTHER 1 [facility] SOURCE INC INC URNLS DIP 97250 ZACK DIXON 1 [facility] STICK/TAB INC INC LET REAGENT AUTO MICROSCOP Y RENAL 50797 ZACK DIXON FUNCTION 1 [facility] PANEL INC INC PROTEIN 80155 ZACKSHANDA DIXON ELECTROPH 1 [facility] ORETIC INC INC FRACTJ&QU ANTJ SERUM COLLECTIO 90403 ZACK DIXON N VENOUS 1 [facility] BLOOD INC INC VENIPUNCT URE BASIC 21324 ZACK DIXON METABOLIC 1 [facility] PANEL INC INC CALCIUM TOTAL ARTHROCEN 63045 ROSA ROSENTHAL TESIS 1 [facility]&/IN CLINIC J MAJOR PSC JT/BURSA W/O US RADIOLOGI 70142 ZACK DIXON C EXAM 1 [facility] BOTH INC INC KNEES STANDING ANTEROPOS T INJECTION J1030 [facility]HAL [facility] DNISOLONE PSC ACETATE 40 MG DXA BONE 39968 ZACK DIXON DENSITY 1 [facility] STUDY 1/> INC INC SITES AXIAL SKEL OPHTH 51590 [facility] 1 VISION XM&EVAL COMPRHNSV ESTAB PT 1/> [place] [address] ZACK DIXON RETROPERI 1 [facility] TONEAL INC INC REAL TIME W/IMAGE COMPLETE NON-INVAS 62298 [place] [facility] MARIBEL 1 MEDICAL MELIDA PHYSIOLOG IMAGING IC STUDY ASS EXTREMITY 3 [place] [address] COMBINED COMBINED PHOSPHORU 1 PHYSICIAN PHYSIC[place] [address] COMBINED COMBINED PARATHORM 1 PHYSICIAN PHYSICIAN ONE S LA S LA BASIC 26773 COMBINED COMBINED METABOLIC 1 PHYSICIAN PHYSICIAN PANEL S LA S LA CALCIUM TOTAL 25 45129 COMBINED COMBINED HYDROXY 1 PHYSICIAN PHYSICIAN INCLUDES S LA S LA FRACTIONS IF PERFORMED BLD GLU A4253 REID MATHEWS TEST/REAG 1 HOME MED HOME MED T STRIPS EQUIP. L EQUIP. L HOME BLD GLU MON-50 LANCETS A4259 REID GLASSRELL PER BOX 1 HOME MED HOME MED OF 100 EQUIP. L EQUIP. L CREATININ 64360 ZACK ELLIOTTON E BLOOD 1 [facility] INC INC COLLECTIO 09974 ZACK DIXON N VENOUS 1 [facility] [address] [place] ABDOMEN 1 MEDICAL MELIDA W/[place] [address] ZACK DIXON UREA 1 [facility] NITROGEN INC INC QUANTITAT MARIBEL 3D 66192 [place] [facility] RENDERING 1 MEDICAL MELIDA IMAGING W/INTERP& ASS POSTPROC DIFF WORK STATION HEPATBL 64580 [place] DUX SYS 1 MEDICAL MELIDA IMG IMAGING GLBLDR ASS TECHNETIU A9537 ZACK DIXON M TC-99M 1 [facility] HOSP MEBROFENI INC INC N DX UP [place] [address] [place] [address] [place] ABDOMINAL 1 MEDICAL MEILDA REAL IMAGING TIME ASS W/IMAGE LIMITED COMPREHEN 31469 COMBINED COMBINED SIVE 1 PHYSICIAN PHYSICIAN METABOLIC S LA S LA PANEL COLLECTIO 56328 COMBINED COMBINED N VENOUS 1 PHYSICIAN PHYSICIAN BLOOD S LA S LA VENIPUNCT URE COMPREHEN 31255 COMBINED COMBINED SIVE 1 PHYSICIAN PHYSICIAN [place] [address] COMBINED COMBINED AMYLASE 1 PHYSICIAN PHYSICIAN S LA S LA COLLECTIO 25848 FAMILY MULBERRY N VENOUS 1 CARE NILO BLOOD [place] [address] COMBINED COMBINED THYROID 1 PHYSICIAN PHYSICIAN STIMULATI S LA S LA NG HORMONE TSH HEMOGLOBI 92898 FAMILY MULBERRY N 1 CARE NILO GLYCOSYLA ASSOCIATE ALEX A1C S BLOOD 86269 FAMILY MULBERRY COUNT 1 CARE NILO COMPLETE ASSOCIATE AUTO&[place] [address] LAB ZOEY LAB ZOEY LIPASE 1 [employer] RADIOLOGI 88467 [place] C EXAM 1 MEDICAL CARLOS CHEST 2 IMAGING VIEWS ASS FRONTAL&L ATERAL BASIC 37078 COMBINED COMBINED METABOLIC 1 PHYSICIAN PHYSICIAN PANEL S LA S LA CALCIUM TOTAL COLLECTIO 96935 FAMILY BRENDAN J N VENOUS 1 CARE BLOOD [place] [address] ZACK DIXON STREPTOCO 0 [facility] CCUS INC INC GROUP A PRESSURIZ 83317 ZACK DIXON ED/NONPRE 0 [facility] SSURIZED INC INC INHALATIO N TREATMENT RADIOLOGI 47371 ZACK DIXON C EXAM 0 [facility] CHEST 2 INC INC VIEWS FRONTAL&L ATERAL URNLS DIP 92812 ZACK DIXON 0 [facility] STICK/TAB INC INC LET REAGENT AUTO MICROSCOP Y IAADI 57048 ZACK DIXON INFFLUENZ 0 [facility] A A VIRUS INC INC IAADI 86226 ZACK DIXON INFLUENZA 0 [facility] [place] [address] COMBINED COMBINED THYROID 0 PHYSICIAN PHYSICIAN STIMULATI S LA S LA NG HORMONE TSH COMPREHEN 74946 COMBINED COMBINED SIVE 0 PHYSICIAN PHYSICIAN METABOLIC S LA S LA PANEL COLLECTIO 04918 FAMILY FAMILY N VENOUS 0 CARE CARE BLOOD ASSOCIATE ASSOCIATE VENIPUNCT S S URE FUNDUS 57627 PETERS LANNY PETERS LANNY PHOTOGRAP 0 HY W/INTERPR ETATION & REPORT OPHTH 65363 [facility] MEDICAL 0 XM&EVAL COMPRHNSV ESTAB PT 1/> FOR DIAB A5513 WELLNESS WELLNESS ONLY MX 0 [facility] DNSITY [employer] CSTM MOLD CSTM EA DIAB ONLY A5500 WELLNESS WELLNESS FIT CSTM 0 LIFE LIFE PREP&SPL SYSTEMS SYSTEMS [employer] DNSITY INSRT RADIOLOGI 34774 [place] C 0 MEDICAL MELIDA EXAMINATI IMAGING ON ANKLE ASS 2 VIEWS WALKING L4360 [employer] 0 TECHNOLOG TECHNOLOG PNEUMATC IES INC IES INC &/ VACUUM PREFAB CUSTM FIT RADIOLOGI 97856 [place] [facility] C 0 MEDICAL MELIDA EXAMINATI IMAGING ON ANKLE ASS 2 VIEWS RADIOLOGI 14234 ZACK DIXON C 0 [facility] EXAMINATI INC INC ON FOOT 2 VIEWS RADEX 70749 [place] FOOT 0 MEDICAL MELIDA COMPLETE IMAGING MINIMUM 3 ASS VIEWS RADEX 99339 [place] [facility] FOOT 0 MEDICAL MELIDA COMPLETE IMAGING MINIMUM 3 ASS VIEWS RADEX 26221 [place] [facility] CALCANEUS 0 MEDICAL MELIDA MINIMUM IMAGING 2 [place] [address] [facility] PETTEY 0 PHYSICIAN JAM CALCANEAL S GROUP FRACTURE W/O MANIPULAT ION RADIOLOGI 48708 [place] [facility] C 0 MEDICAL MELIDA EXAMINATI IMAGING ON PELVIS ASS 1/2 VIEWS RADIOLOGI 56512 [place] C 0 MEDICAL MELIDA EXAMINATI IMAGING ON TIBIA ASS & FIBULA 2 [place] [address] [facility] 0 EMERGENCY CHIDI CALCANEAL SERVICES FRACTURE W/O MANIPULAT ION GROUND A0425 [facility] MILEAGE 0 AMBULANCE AMBULANCE PER SERVICE SERVICE STATUTE MILE AMBULANCE A0429 [facility] SERVICE 0 AMBULANCE AMBULANCE BLS SERVICE SERVICE EMERGENCY TRANSPORT GLUCOSE 98670 FAMILY MULBERRY POST 0 CARE NILO GLUCOSE ASSOCIATE DOSE S BLOOD 07898 FAMILY MULBERRY COUNT 0 CARE NILO COMPLETE ASSOCIATE AUTO&AUTO S DIFRNTL WBC COLLECTIO 31972 FAMILY MULBERRY N VENOUS 0 CARE NILO BLOOD ASSOCIATE VENIPUNCT S URE 25 23105 LAB Z[facility]Y LAB ZOEY HYDROXY 0 [employer] [employer] IN[employer]ES 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 IF PERFORMED HEMOGLOBI 19871 FAMILY MULBERRY N 0 CARE NILO GLYCOSYLA ASSOCIATE ALEX A1C S PPSV23 25972 FAMILY FAMILY VACCINE 2 0 CARE CARE YRS OR ASSOCIATE ASSOCIATE OLDER FOR S S SUBQ/IM USE ADMINISTR G0009 FAMILY MULBERRY ATION OF 0 CARE NILO PNEUMOCOC ASSOCIATE JORDYN S VACCINE LIPID 14140 COMBINED COMBINED PANEL 0 PHYSICIAN PHYSICIAN S LAB S LAB COMPREHEN 07117 COMBINED COMBINED SIVE 0 PHYSICIAN PHYSICIAN [place]AB[place] [address] COMBINED COMBINED IRON 0 PHYSICIAN [place] [address] COMBINED COMBINED FOLIC 0 PHYSICIAN PHYSICIAN [place] [address] COMBINED COMBINED FERRITIN 0 PHYSICIAN PHYSICIAN S LAB S LAB CYANOCOBA 55385 COMBINED COMBINED SOHA 0 PHYSICIAN PHYSICIAN VITAMIN S LAB S LAB B-12 BLOOD 45672 FAMILY MULBERRY, COUNT 0 CARE CLEO T COMPLETE ASSOCIATE AUTO&AUTO S DIFRNTL WBC COLLECTIO 56915 FAMILY MULBERRY, N VENOUS 0 CARE CLEO T BLOOD ASSOCIATE VENIPUNCT S URE HEMOGLOBI 88809 FAMILY MULBERRY, N 0 CARE CLEO T GLYCOSYLA ASSOCIATE ALEX A1C S BASIC 83595 COMBINED COMBINED METABOLIC 0 PHYSICIAN PHYSICIAN PANEL S LAB S LAB CALCIUM TOTAL COLLECTIO 54402 FAMILY MULBERRY, N VENOUS 0 CARE CLEO T BLOOD ASSOCIATE VENIPUNCT S URE BLOOD 71635 FAMILY MULBERRY, COUNT 0 CARE CLEO T COMPLETE ASSOCIATE AUTO&AUTO S DIFRNTL WBC LANCETS A4259 REID MATHEWS PER BOX 0 HOME MED HOME MED OF 100 [employer] BLD GLU A4253 REID MATHEWS TEST/REAG 0 HOME MED HOME MED T STRIPS EQUIP. EQUIP. HOME BLD [facility] GLU MON-50 HOSPITAL 8[address]77 [facility], DISCHARGE 0 CARE CLEO T DAY ASSOCIATE MANAGEMEN S T > 30 MIN RADIOLOGI 56033 [facility] EPPS EXAM 0 MEDICAL XAVI Mcdonald CHEST 2 IMAGING VIEWS ASSOCIATE FRONTAL&L S ATERAL SBSQ 75254 [facility] 0 CARE CLEO T CARE/DAY ASSOCIATE 25 S MINUTES ECG 98217 ZACK BARRETO, ROUTINE 0 [facility] W/LEAST PROF SERV 12 LDS I&R ONLY ECHO 45051 [facility] FALLUJI, TTHRC R-T 0 PHYSICIAN MINNA Gardiner S GROUP W/WOM-MOD E COMPL SPEC&[place] [address] [facility] BRIANSHERI, PART VNTJ 0 MEDICAL RAYMUNDO IMG IMAGING AERSL ASSOCIATE 1/GERENTOLOGICAL PHYSIOTHERAPIST S PRJCJ RADIOLOGI 36453 [facility] [place] EXAM 0 MEDICAL RAYMUNDO CHEST 2 IMAGING VIEWS ASSOCIATE FRONTAL&L S ATERAL INTRO 48703 EMEKA WILCOX, NEEDLE/IN 0 EMERGENCY [facility] TRACAT SERVICES EXTREMITY ARTERY ASSOCIATE S INITIAL 26952 [facility] 0 CARE CLEO T CARE/DAY ASSOCIATE 50 S MINUTES GROUND A0425 [facility] MILEAGE 0 AMBULANCE AMBULANCE PER SERVICE SERVICE STATUTE MILE AMB A0427 [facility] SERVICE 0 AMBULANCE AMBULANCE ALS SERVICE SERVICE EMERGENCY TRANSPORT LEVEL 1 IAADIADOO 75770 [facility], 0 CARE CLEO T STREPTOCO ASSOCIATE CCUS S GROUP A ORTHOPANT 25494 [facility] FOR[facility]Ag SHERI, OGRAM 0 MEDICAL RAYMUNDO IMAGING ASSOCIATE S RENAL 24022 [facility] FUNCTION 0 [facility] PANEL INC INC COLLECTIO 87315 [facility] N VENOUS 0 [facility] BLOOD INC INC VENIPUNCT URE LANCETS A4259 DIABETES DIABETES PER BOX 0 [facility] BLD GLU A4253 DIABETES DIABETES TEST/REAG 0 CARE [facility]UB CARE [facility] T [facility] HOME BLD GLU MON-50 NORMAL A4256 DIABETES DIABETES LOW AND 0 C[facility] CALIBRATO R SOLUTION/ CHIPS RENAL 20633 [facility] FUNCTION 9 [facility] PANEL INC INC COLLECTIO 19660 [facility] N VENOUS 9 [facility] BLOOD INC INC VENIPUNCT URE ELECTRIC E0215 DIABETES DIABETES HEAT PAD 9 CARE [facility] NORMAL A4256 DIABETES DIABETES LOW AND 9 CARE CLUB [facility]ARE [facility] CALIBRATO R SOLUTION/ CHIPS BLD GLU A4253 DIABETES DIABETES TEST/REAG 9 CARE CLUB CARE CLUB T [facility] HOME BLD GLU LANCETS A4259 DIABETES DIABETES PER BOX 9 [facility] [address] [facility] [place] [address] ZACK ELLIOTTON RETROPERI 9 [facility] TONEAL INC INC REAL TIME W/IMAGE COMPLETE SUSCEPTIB 50765 [facility] LTY STDY 9 [facility] ANTIMICRB INC INC IAL MICRO/AGA R DILUTJ COLLECTIO 00936 [facility] N VENOUS 9 [facility] BLOOD INC INC VENIPUNCT URE RENAL 11291 [facility] FUNCTION 9 [facility] PANEL INC INC URNLS DIP 35923 [facility] 9 [facility] STICK/TAB INC INC LET REAGENT AUTO MICROSCOP Y COMPLEMEN 17063 [facility] T 9 [facility] FUNCTIONA INC [place] [address] [facility] DIXON BLOOD/URI 9 [facility] C ACID INC INC ANTINUCLE 32890 [facility] AR 9 [facility] ANTIBODIE INC INC S YUNG CULTURE 17350 [facility] D[facility] BACTERIAL 9 [facility] INC INC QUANTTATI VE COLONY COUNT URINE CULTURE 45009 [facility] BCT 9 [facility] ISOL&PRSM INC INC PTV ID ISOLATE EA URINE ANTISTREP 27313 [facility] TOLYSIN O 9 [facility] SCREEN INC INC COLLECTIO 91841 [facility] D[facility] N VENOUS 9 [facility] BLOOD INC INC VENIPUNCT URE BASIC 40320 [facility]ACK [facility] METABOLIC 9 [facility] PANEL INC INC CALCIUM TOTAL COLLECTIO 36270 ZACK DIX[facility] N VENOUS 9 [facility] BLOOD INC INC VENIPUNCT URE COMPREHEN 26311 [facility] SIVE 9 [facility] [address] [facility] D[facility] THYROID 9 [facility] STIMULATI INC INC NG HORMONE TSH BLOOD 97786 [facility]ACK [facility]IXON COUNT 9 [facility] COMPLETE INC INC AUTO&AUTO DIFRNTL WBC LANCETS A4259 DIABETES DIABETES PER BOX 9 [facility] BLD GLU A4253 DIABETES DIABETES TEST/REAG 9 C[facility]UB [facility] HOME BLD GLU MON-50 NORMAL A4256 DIABETES DIABETES LOW AND 9 [facility] CALIBRATO R SOLUTION/ CHIPS REPL KIM A4235 DIABETES DIABETES LITHIUM 9 CARE CLUB CARE CLUB MED NECES [facility] LIBERTY BG MON OWN PT EA SPRING-PO A4258 DIABETES DIABETES WERED 9 CARE CLUB CARE CLUB DEVICE [facility] FOR LANCET EACH OPHTH 06571 PETERS, PETERS, MEDICAL 9 GEE A GEE A XM&EVAL COMPRHNSV ESTAB PT 1/> ALBUMIN 93321 FAMILY MULBERRY, URINE 9 CARE CLEO T MICROALBU ASSOCIATE MIN S SEMIQUANT ITATIVE CREATININ 48847 FAMILY MULBERRY, E OTHER 9 CARE CLEO T SOURCE ASSOCIATE S COLLECTIO 95329 FAMILY MULBERRY, N VENOUS 9 CARE CLEO T BLOOD ASSOCIATE VENIPUNCT S URE HEMOGLOBI 68918 COMBINED COMBINED N 9 PHYSICIAN PHYSICIAN GLYCOSYLA [...] [facility]UB [facility] LANCETS A4259 DIABETES DIABETES PER BOX 8 CARE CLUB CARE CLUB OF [employer] NORMAL A4256 DIABETES DIABETES LOW AND 8 CARE CLUB CARE CLUB HIGH [facility] CALIBRATO R SOLUTION/ CHIPS BLD GLU A4253 DIABETES DIABETES TEST/REAG 8 CARE CLUB CARE CLUB T STRIPS [facility] HOME BLD GLU MON-50 MANUAL 41465 PROFESSIO CROSSFIEL THERAPY 8 NAL REHAB D, TQS 1/> ASSOC DANNITA REGIONS PSC EACH 15 MINUTES THERAPEUT 36010 PROFESSIO CROSSFIEL ACTVITY 8 NAL REHAB D, DIRECT PT ASSOC DANNITA CONTACT PSC EACH 15 MIN THERAPEUT 49691 PROFESSIO CROSSFIEL IC PX 1/> 8 NAL REHAB D, AREAS ASSOC DANNITA EACH 15 PSC MIN EXERCISES CANE E0105 REID MATHEWS QUAD/3-OK 8 HOME MED HOME MED GABINO ALL EQUIP. EQUIP. MATL [facility] ADJUSTBL/ FIX W/TIPS PHYSICAL 82672 PROFESSIO CROSSFIEL THERAPY 8 NAL REHAB D, EVALUATIO ASSOC DANNITA N PSC MANUAL 34887 PROFESSIO CROSSFIEL THERAPY 8 NAL REHAB D, TQS 1/> ASSOC DANNITA REGIONS PSC EACH 15 MINUTES THERAPEUT 17061 PROFESSIO CROSSFIEL IC PX 1/> 8 NAL REHAB D, AREAS ASSOC DANNITA EACH 15 PSC MIN EXERCISES RADEX HIP 77235 ZACK DIXON 8 [facility] INC L COMPLETE MINIMUM 2 VIEWS RADEX 12408 [place] MICH, SPINE 8 MEDICAL XAVI P LUMBOSACR IMAGING AL ASSOCIATE MINIMUM 4 S VIEWS Encounters Encounter Start End Date Code Location Performer Type Date EMERGENCY 99895 RUDY JOINER DEPT 7 7 PHYSICIAN VISIT S, [facility] HIGH SEVERITY& THREAT [facility] ZACK Oquendo 7 7 [facility] ZACK Oquendo 6 6 [facility] OUTPATIEN [facility] T OFFICE 79184 CAMERON GORDILLO OUTPATIEN 6 6 MEDICAL T VISIT SERV 25 FOUNDATIO MINUTES [facility] ZACK - 6 6 [facility] OUTPATIEN INC T EMERGENCY 57438 ZACK DEPT 6 6 [facility] VISIT INC HIGH SEVERITY& THREAT [facility] ZACK - OTHER 6 6 [facility] INC OFFICE [address]25 [place] OUTPATIEN 6 6 MEDICAL T VISIT SERV 25 FOUNDATIO MINUTES [facility] ZACK - OTHER 6 6 [facility] INC OFFICE 37690 [place] OUTPATIEN 6 6 [facility] T VISIT INTERNAL 15 MEDI MINUTES EMERGENCY 82545 ZACK 6 6 [facility] DEPARTMEN INC T VISIT HIGH/URGE NT SEVERITY EMERGENCY 73453 RUDY CYR [facility] DEPT 6 6 PHYSICIAN VISIT S, [facility] HIGH SEVERITY& TH[facility]AT [facility] ZACK - 6 6 [facility] OUTPATIEN INC T OFFICE 40252 [place] V[place] OUTPATIEN 6 6 [facility] T VISIT INTERNAL 15 MED MINUTES HOSPITAL ZACK - 6 6 [facility] OUTPATIEN INC T EMERGENCY 74093 RUDY WILCOX 6 6 PHYSICIAN CHIDI DEPARTMEN S, [facility] T VISIT HIGH/URGE NT SEVERITY EMERGENCY 71359 ZCAK 6 6 [facility] DEPARTMEN INC T VISIT MODERATE SEVERITY [facility] INPATIENT 6 6 [facility] INPAT[facility] 6 6 [facility] EMERGENCY 70969 ZACK 5 5 [facility] DEPARTMEN INC T VISIT LOW/MODER SEVERITY HOSPITAL ZACK - 5 5 [facility] OUTPATIEN INC T [facility] INPATIENT 5 5 [facility] 5 5 [facility] ZACK - 5 5 [facility] INPATIENT INC OFFICE 97948 ZACK CALDERON OUTPATIEN 5 5 [facility] T VISIT 5 HOSPITAL MINUTES P HOSPITAL ZACK - 5 5 [facility] OUTPATIEN INC T EMERGENCY 07360 ZACK 5 5 [facility] DEPARTMEN INC T VISIT LIMITED/M INOR PROB OFFICE 16751 ZACK CALDERON OUTPATIEN 5 5 [facility] T VISIT HOSPITAL 10 P MINUTES OFFICE 31475 CAMERON GORDILLO OUTPATIEN 5 5 MEDICAL T VISIT SERV 25 FOUNDATIO MINUTES [facility] ZACK - 5 5 [facility] OUTPATIEN INC HOSPITAL ZACK - 5 5 [facility] OUTPATIEN INC T OFFICE 67570 [facility] OUTPATIEN 5 5 [facility] INTERNAL 25 MEDI MINUTES OFFICE 75018 ZACK CALDERON OUTPATIEN 5 5 [facility] 15 P MINUTES HOSPITAL ZACK - 5 5 [facility] OUTPATIEN [facility] ZACK [facility] OTHER 5 5 [facility] INC OFFICE 92773 ZACK CALDERON OUTPATIEN 5 5 [facility] T [facility] [address] [facility] INPATIENT 5 5 [facility] OFFICE 34203 CAMERON GORDILLO OUTPATIEN 5 5 MEDICAL T VISIT SERV 25 FOUNDATIO [address] N [facility] INPATIENT 5 5 [facility] INPATIENT 5 5 [facility] IN[facility] 5 5 [facility] ZACK - 5 5 [facility] INPATIENT INC EMERGENCY 06018 ZACK Dawn 5 5 [facility] T VISIT P LOW/MODER SEVERITY HOSPITAL ZACK - 5 5 [facility] OUTPATIEN [facility] ZACK - 5 5 [facility] OUTPATIEN [facility] T OFFICE 45173 [place] ERIBERTO GORDILLO OUTPATIEN 4 4 MEDICAL T VISIT SERV 25 FOUNDATIO MINUTES [facility] ZACK - 4 4 [facility] OUTPATIEN [facility] ZACK [facility] 4 4 [facility] EMERGENCY 53265 ZACK 4 4 [facility] T VISIT MODERATE SEVERITY EMERGENCY 21075 [facility] DEPT 4 4 ERIC IMT VISIT EMERGENCY HIGH PHYS SEVERITY& THREAT [facility] ZACK - OTHER 4 4 [facility] ZACK - 4 4 [facility] T OFFICE 74732 [place] ERIBERTO GORDILLO OUTDICKSONEN 4 4 MEDICAL T VISIT SERV 25 FOUNDATIO [facility] ZACK - OTHER 4 4 [facility] ZACK - 4 4 [facility] OFFICE 80131 CAMERON GORDILLO OUTPATIEN 3 3 MEDICAL T VISIT SERV 25 FOUNDATIO MINUTES OFFICE 46064 [facility] PETTEAg OUTONESIMO 3 3 PHYSICIAN JAM T VISIT S GROUP 15 [facility] ZACK - 3 3 [facility] Emergency RPI Shin (ER) 3 08:47 3 09:14 [facility] Celso ESherie EMERGENCY 31549 EMEKA SHIN 3 3 EMERGENCY III [facility] T VISIT HIGH/URGE NT SEVERITY EMERGENCY [address] ZACK [address] [facility] VISIT LIMITED/M INOR [facility] ZACK - 3 3 [facility] OUTPATIEN [facility] Emergency RIP Shields MD (ER) 3 07:59 3 14:30 [facility] EMERGENCY 78919 EMEKA LIRA DEPT 3 3 EMERGENCY VISIT SERVICES HIGH SEVERITY& THREAT [facility] ZACK - 3 3 [facility] OUTPATIEN [facility] EMER[facility]ENCY 85874 ZACK 3 3 [facility] VISIT HIGH/URGE NT SEVERITY [facility] ZACK - 3 3 [facility] OUTPATIEN [facility] ZACK [facility] 3 3 [facility] OUTPATIEN [facility] OFFICE 87246 CAMERON GORDILLO OUTPATIEN 3 3 MEDICAL T [facility]IT SERV [facility] 3 3 [facility] OUTPATIEN [facility] ZACK [facility] 3 3 [facility] OUTPATIEN [facility] ZACK - 3 3 [facility] OUTPATIEN [facility] ZACK [facility] 3 3 [facility] OUTPATIEN [facility] ZACK [facility] 3 3 [facility] OUTPATIEN [facility] ZACK - 2 2 [facility] OUTPATIEN [facility] EMERGENCY 21142 EMEKA CASTELLANO DEPT 2 2 EMERGENCY VISIT SERVICES HIGH SEVERITY& THREAT [facility] ZACK - 2 2 [facility] OUTPATIEN [facility] ZACK - 2 2 [facility] OUTPATIEN [facility] OFFICE 66224 CAMERON GORDILLO OUTPATIMICA 2 2 MEDICAL T VISIT SERV [facility] Z[facility] - 2 2 [facility] OUTPATIEN INC T HOSPITAL ZACK - 2 2 [facility] OUTPATIEN [facility] OFFICE 89845 CAMERON GORDILLO OUTPATIEN 2 2 MEDICAL T VISIT SERV 15 FOUNDATIO MINUTES [facility] ZACK - 2 2 [facility] OUTPATIEN [facility] ZACK - 2 2 [facility] ZACK - 2 2 [facility] OUTPATIEN [facility] T EMERGENCY 59707 EMEKA SHIN DEPT 2 2 EMERGENCY III NANCY VISIT SERVICES HIGH SEVERITY& THREAT FUNJ EMERGENCY 29774 ZACK 2 2 [facility] T VISIT HIGH/URGE NT SEVERITY HOSPITAL ZACK - 2 2 [facility] OUTPATIEN [facility] EMERGENCY 32303 EMEKA WILCOX DEPT 2 2 EMERGENCY CHIDI VISIT SERVICES HIGH SEVERITY& THREAT FUN EMERGENCY 67036 ZACK 2 2 [facility] DEPARTMEN [facility] T VISIT HIGH/URGE NT SEVERITY HOSPITAL ZACK - 2 2 [facility] OUTPATIEN [facility] ZACK - 2 2 [facility] INPATIENT INC OFFICE 47195 FAMILY STRAWZELL OUTPATIEN 2 2 CARE CRI T VISIT ASSOCIATE 25 S, PSC MINUTES OFFICE 16352 FAMILY STRAWZELL OUTPATIEN 2 2 CARE CRI T VISIT ASSOCIATE 15 S, PSC MINUTES EMERGENCY 59530 ZACK 2 2 [facility] DEPARTMEN INC T VISIT LOW/MODER SEVERITY HOSPITAL ZACK - 2 2 [facility] OUTPATIEN [facility] T EMERGENCY 79709 EMEKA SHIN 2 2 EMERGENCY III NANCY DEPARTMEN SERVICES T VISIT HIGH/URGE NT SEVERITY OFFICE 13844 [place] OUTPATIEN 2 2 MEDICAL T VISIT SERV 25 FOUNDATIO [facility] ZACK - 2 2 [facility] OUTPATIEN INC T OFFICE 56106 PAWSAT PAWSAT OUTPATIEN 2 2 Aug T NEW 30 MINUTES HOSPITAL ZACK - 1 1 [facility] OUTPATIEN INC T OFFICE 32179 [place] OUTPATIEN 1 1 MEDICAL T VISIT SERV 25 FOUNDATIO [facility] ZACK - 1 1 [facility] OUTPATIEN [facility] ZACK - 1 1 [facility] OUTPATIEN INC EMERGENCY 64008 ZACK 1 1 [facility] DEPARTMEN INC T VISIT MODERATE SEVERITY HOSPITAL ZACK - 1 1 [facility] OUTPATIEN [facility] ZACK - 1 1 [facility] OUTPATIEN [facility] ZACK - 1 1 [facility] OUTPATIEN [facility] T OFFICE 46606 [place] OUTPATIEN 1 1 [place] T NEW 45 CLINIC MINUTES [facility] Z[facility] - 1 1 [facility] OUTPATIEN [facility] ZACK - 1 1 [facility] OUTPATIEN [facility] T OFFICE 03449 [place] OUTPATIEN 1 1 MEDICAL T NEW [address] [facility] ZACK - 1 1 [facility] OUTPATIEN INC T OFFICE 01910 FAMILY JADA OUTPATIEN 1 1 CARE NILO T VISIT ASSOCIATE 40 S MINUTES EMERGENCY 43182 EMEKA WU 1 1 [facility] T VISIT MODERATE SEVERITY EMERGENCY 44804 ZACK 1 1 [facility] DEPARTMEN INC T VISIT LOW/MODER SEVERITY HOSPITAL ZACK - 1 1 [facility] OUTPATIEN INC T OFFICE 87964 FAMILY JADA OUTPATIEN 1 1 CARE NILO T VISIT ASSOCIATE 25 S MINUTES OFFICE 40017 ANKUSH LECHUGA JR OUTPATIEN 1 1 [place]LA[place] ELAINE T VISIT 15 MINUTES HOSPITAL ZACK - 1 1 [facility] OUTPATIEN INC T OFFICE 87585 ANKUSH LECHUGA JR OUTPATIEN 1 1 ELAINE ELAINE T NEW 45 MINUTES HOSPITAL ZACK - 1 1 [facility] OUTPATIEN INC T HOSPITAL ZACK - 1 1 [facility] OUTPATIEN INC T OFFICE 98840 FAMILY JADA OUTPATIEN 1 1 CARE NILO T VISIT ASSOCIATE 25 S MINUTES EMERGENCY 44480 EMEKA CASTELLANO 1 1 EMERGENCY DEPARTMEN SERVICES T VISIT HIGH/URGE NT SEVERITY HOSPITAL ZACK - 1 1 [facility] OUTPATIEN INC T EMERGENCY 03385 ZACK 1 1 [facility] DEPARTMEN INC T VISIT LOW/MODER SEVERITY OFFICE 96084 FAMILY BRENDAN Estrella OUTPATIEN 1 1 CARE T VISIT ASSOCIATE 15 S MINUTES HOSPITAL ZACK - 0 0 [facility] OUTPATIEN INC T EMERGENCY 10136 ZACK 0 0 [facility] DEPARTMEN INC T VISIT LOW/MODER SEVERITY EMERGENCY 66321 EMEKA WILCOX 0 0 EMERGENCY [facility] DEPARTMEN SERVICES T VISIT HIGH/URGE NT SEVERITY OFFICE 72205 FAMILY BRENDAN J OUTPATIEN 0 0 CARE T VISIT ASSOCIATE 15 S MINUTES OFFICE 33631 FAMILY BRENDAN J OUTPATIEN 0 0 CARE T VISIT ASSOCIATE 15 S MINUTES HOSPITAL ZACK - 0 0 [facility] OUTPATIEN INC T OFFICE 49452 FAMILY MULBERRY OUTPATIEN 0 0 CARE NILO T VISIT ASSOCIATE 25 S MINUTES HOSPITAL ZACK - 0 0 [facility] OUTPATIEN INC T HOSPITAL ZACK - 0 0 [facility] OUTPATIEN INC T OFFICE 89615 [facility] PETTE OUTPATIEN 0 0 PHYSICIAN JAM T NEW 45 S GROUP MINUTES EMERGENCY 47912 EMEKA WILCOX 0 0 EMERGENCY [facility] DEPARTMEN SERVICES T VISIT HIGH/URGE NT SEVERITY HOSPITAL ZACK - 0 0 [facility] OUTPATIEN INC T EMERGENCY 90452 ZACK 0 0 [facility] DEPARTMEN INC T VISIT MODERATE SEVERITY OFFICE 59171 FAMILY MULBERRY OUTPATIEN 0 0 CARE NILO T VISIT ASSOCIATE 25 S MINUTES OFFICE 95686 FAMILY MULBERRY, OUTPATIEN 0 0 CARE CLEO T T VISIT ASSOCIATE 15 S MINUTES OFFICE 04636 FAMILY MULBERRY, OUTPATIEN 0 0 CARE CLEO T T VISIT ASSOCIATE 25 S MINUTES OFFICE 70373 FAMILY MULBERRY, OUTPATIEN 0 0 CARE CLEO T T VISIT ASSOCIATE 15 S MINUTES OFFICE 04109 FAMILY MULBERRY, OUTPATIEN 0 0 CARE CLEO T T VISIT ASSOCIATE 25 S MINUTES HOSPITAL ZACK - 0 0 [facility] INPATIENT INC EMERGENCY 26152 EMEKA WILCOX, DEPT 0 0 EMERGENCY TAYA S VISIT SERVICES HIGH SEVERITY& ASSOCIATE THREAT S FUNCJ OFFICE 74258 FAMILY MULBERRY, OUTPATIEN 0 0 CARE CLEO T T VISIT ASSOCIATE 15 S MINUTES HOSPITAL ZACK - 0 0 [facility] OUTPATIEN INC T EMERGENCY 51887 ZACK 0 0 [facility] DEPARTMEN INC T VISIT LOW/MODER SEVERITY [facility]OSPITAL ZACK - 0 0 [facility] OUTPATIEN INC T OFFICE 46195 MEANS BUTROS, OUTPATIEN 9 9 ADULT [place] T VISIT PRIMARY 15 CARE [facility] ZACK - 9 9 [facility] OUTPATIEN INC T OFFICE 25211 MEANS BUTROS, OUTPATIEN 9 9 ADULT [place] T VISIT PRIMARY 25 CARE [facility] ZACK - 9 9 [facility] OUTPATIEN INC T OFFICE 63620 MEANS BUTROS, CONSULTAT 9 9 ADULT REVANESAA ION PRIMARY [facility] PATIENT CENTER 80 MIN [facility] ZACK - 9 9 [facility] OUTPATIEN INC T OFFICE 67548 FAMILY JADA OUTPATIEN 9 9 CARE CLEO T T VISIT ASSOCIATE 15 S MINUTES [facility] ZACK - 9 9 [facility] OUTPATIEN INC T OFFICE 61176 FAMILY LOGANBERRY, OUTPATIEN 9 9 CARE CLEO T T VISIT ASSOCIATE 25 S MINUTES OFFICE 31839 FAMILY JADA OUTPATIEN 9 9 CARE CLEO T T VISIT ASSOCIATE 25 S MINUTES OFFICE 55967 FAMILY TERRENCE OUTPATIEN 8 8 CARE R PADMINI T VISIT ASSOCIATE 25 S MINUTES HOSPITAL ZACK - 8 8 [facility] OUTPATIEN INC T OFFICE 56696 Sameer MARCOS OUTPATIEN 8 8 CARE G T VISIT ASSOCIATE 15 S MINUTES HOSPITAL ZACK - 8 8 [facility] OUTPATIEN INC T EMERGENCY 90259 ZACK 8 8 [facility] DEPARTMEN INC T VISIT LOW/MODER SEVERITY EMERGENCY 22710 ZACK 8 8 [facility] DEPARTMEN INC T VISIT LIMITED/M INOR PROB [facility] AZCK - 8 8 [facility] OUTPATIEN INC T
--- OUTSIDE RECORDS SUMMARY | 2016-10-19 17:30 | External Medical Summary Rpt ---
Author Author , Organization [employer] Address Unknown Phone Unavailable Care Team Providers Care Log Deckman Name Role Phone CALDERON VALENTINE, CALDERON Unavailable [...] TRACY RODRIGUEZ ALL, RODRIGUEZ ALL Unavailable Unavailable [facility] Unavailable Unavailable SERVICE, [facility] Unavailable Unavailable SERVICE, [facility] BUTROS, REZKALLA, Unavailable Unavailable BUTROS, REZKALLA [facility] Unavailable Unavailable CONSULTANTS O, [facility] Unavailable Unavailable CAMPUS, [facility] Unavailable Unavailable CAMPUS, [facility] Unavailable Unavailable [place], [...] Unavailable LLC, [facility]AN[facility]APTISTE LEGIHTON, Unavailable Unavailable [facility], Unavailable [...] S MARISOL ANDREZ, Unavailable Unavailable MARISOL ANDREZ [facility] Unavailable Unavailable INC, [facility] Unavailable Unavailable Hospital, [facility] Unavailable Unavailable HOSPITAL P, [facility] PETERS LANNY, PETERS LANNY Unavailable Unavailable PETERS LANNY, PETERS LANNY Unavailable Unavailable PETERS, GEE A, Unavailable Unavailable PETERS, GEE A [facility], Unavailable Unavailable [facility] JOINER, JOINER Unavailable Unavailable KLARISSA IMT, KLARISSA Unavailable Unavailable IMT Scarlet Patterson MICROWAVE RADIO TECHNICIAN, Unavailable Unavailable Scarlet Patterson MICROWAVE RADIO TECHNICIAN [facility] Un[facility] Unavailable [facility], [facility] KOTTER JUAN J, KOTTER [...] MED [facility] Unavailable Unavailable [facility], [facility] Unavailable Unavailable SERVICES, [facility] MCKEMIE JR NACNY, Unavailable Unavailable MCKEMIE JR NANCY MICH CARLOS, MICH Unavailable Unavailable CARLOS MICH, XAVI P, Unavailable Unavailable CARLOS EPPSETT P MULBERRY NILO, Unavailable Unavailable MULBERRY NILO MULBERRY, CLEO T, Unavailable Unavailable MULBERRY, CLEO T CROWELL SON, CROWELL SON Unavailable Unavailable [facility] Unavailable Unavailable [facility] Clemente OCAMPO, Unavailable Unavailable Clemente OCAMPO [...] EQUIPME, [facility] Unavailable Unavailable EMERGENCY PHYS, [facility] Unavailable Unavailable CLINIC, [facility] STRAWZELL CRI, Unavailable Unavailable STRAWZELL CRI [facility], Unavailable Unavailable [facility], Unavailable Unavailable [facility] WEI RAND, WEI RAND Unavailable Unavailable WEHRMAN III NANCY, Unavailable Unavailable WEHRMAN III NANCY [facility] Unavailable Unavailable LLC, [facility] ELSA LIRA, ELSA LIRA [...] 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 I44.1 Atrioventri [...] 10-13-2016 index (BMI) 50-59.9 , adult 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 (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) use of antithrombo tics/antipl atelets Z79.4 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 10-13-2016 (current) use of insulin Z79.82 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 10-13-2016 (current) use of aspirin Z86.73 Personal 10-13-2016 history of transient ischemic attack (TIA), and cerebral infarction without residual deficits Z98.61 Coronary 10-13-2016 angioplasty status I44.30 Unspecified 10-07-2016 atrioventri cular block R57.9 Shock, 09-30-2016 unspecified E109 TYPE 1 09-14-2016 [facility] MELLITUS GROUP WITHOUT COMPLICATIO NS I213 ST 09-14-2016 [facility] ELEVATION PHYSICIANS MYOCARDIAL GROUP INFARCTION UNS SITE I739 PERIPHERAL 09-14-2016 [facility] VASCULAR PHYSICIANS DISEASE GROUP UNSPECIFIED N183 CHRONIC 09-14-2016 [facility] KIDNEY PHYSICIANS DISEASE GROUP STAGE 3 MODERATE E1142 TYPE 2 09-13-2016 [facility] P W/DIAB POLYNEUROPA THY I119 HYPERTENSIV 09-13-2016 [facility] E HEART PHYSICIANS, DISEASE PLLC WITHOUT HEART FAILURE I129 HYPERTENSIV 09-13-2016 [facility] E CKD [facility] W/STAGE 1-4 INC CKD OR UNS CKD S43603 ASHD SKAGWAY 09-13-2016 [facility] COR ART [facility] W/UNSTABLE INC ANGINA PECTORIS I5043 ACUTE ON 09-13-2016 [facility] P SYSTOLIC & DIASTOLIC CHF I773 ARTERIAL 09-13-2016 [facility] FIBROMUSCUL [facility] AR INC DYSPLASIA R0602 SHORTNESS 09-13-2016 H OF BREATH PHYSICIANS GROUP R0689 OTHER 09-13-2016 [facility] ABNORMALITI AMBULANCE ES OF SERVICE BREATHING 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 [facility] CURRENT USE [facility] OF INSULIN INC E039 HYPOTHYROID 06-09-2016 [facility] ISM [facility] UNSPECIFIED INC E118 TYPE 2 06-09-2016 [facility] DIABETES [facility] MELLITUS INC W/UNS COMPLICATIO NS E119 TYPE 2 03-21-2016 [facility] DIABETES SERV MELLITUS FOUNDATION WITHOUT COMPLICATIO NS M810 AGE-RELATED 03-21-2016 [facility] OSTEOPOROSI FOUNDATION S W/O CURRNT PATH FX N184 CHRONIC 03-21-2016 [facility] K[facility]NEY SERV DISEASE FOUNDATION STAGE 4 SEVERE N250 RENAL 03-21-2016 [facility] OSTEODYSTRO SERV PHY FOUNDATION N390 URINARY 03-18-2016 [facility]CT PHYSICIANS INFECTION LA SITE NOT SPECIFIED Q67715 TYPE 2 02-28-2016 [facility] P W/HYPOGLYCE VICTORIANO W/O COMA E162 HYPOGLYCEMI 02-28-2016 [facility] Meza PHYSICIANS, UNSPECIFIED PLLC E876 HYPOKALEMIA 02-28-2016 [facility] INC I10 ESSENTIAL 02-28-2016 [facility] P N I5032 CHRONIC 02-28-2016 [facility] P HEART FAILURE R410 DISORIENTAT 02-28-2016 [facility] ION [facility]BULANCE UNSPECIFIED SERVICE Z591 INADEQUATE 02-28-2016 [facility] HOUSING [facility] INC P21938 OTHER LONG 02-28-2016 [facility] TERM [facility] CURRENT INC DRUG THERAPY G4733 OBSTRUCTIVE 02-15-2016 [facility] SLEEP HOME APNEA ADULT MEDICAL PEDIATRIC EQUIPME W98441S MX FX 02-15-2016 [facility] PELVIS STBL HOME [...] [facility] RESPONSIVEN SERVICE ESS U31349 CELLULITIS 08-16-2015 [facility] [place] LOWER LIMB INTERNAL MED M03695 CELLULITIS 08-16-2015 [facility] [place] LEFT [place] LOWER LIMB INTERNAL MED E1021 TYPE 1 08-10-2015 [facility] DIABETES [facility] MELLITUS INC W/DIABETIC NEPHROPATHY E1065 TYPE 1 08-10-2015 [facility] DIABETES [facility] MELLITUS INC WITH HYPERGLYCEM IA E138 OTH SPEC 08-10-2015 [facility] DIABETES PHYSICIANS, MELLITUS PLLC W/UNS COMPLICATIO NS T88633 CELLULITIS 08-10-2015 [facility] OF PHYSICIANS, UNSPECIFIED PLLC PART OF LIMB R739 HYPERGLYCEM 08-10-2015 [facility] [place] [facility]BULANCE UNSPECIFIED SERVICE L853 XEROSIS 08-09-2015 [facility] CUTIS [place] INTERNAL MED E6601 MORBID 08-05-2015 [facility] SEVERE [place] OBESITY DUE INTERNAL TO EXCESS MEDI CALORIES I270 PRIMARY 07-20-2015 [facility] PULMONARY [facility] HYPERTENSIO CAMPUS N I5030 UNSPECIFIED 07-20-2015 [facility] CONGESTIVE [place] HEART FAILURE R0600 DYSPNEA 07-20-2015 [facility] M542 CERVICALGIA 07-12-2015 [facility] MOBILEX M546 PAIN IN 07-12-2015 [facility] THORACIC MOBILEX SPINE I509 HEART 07-11-2015 [facility] FAILURE VALLEY UNSPECIFIED INTERNAL MED I8311 VARICOSE 07-11-2015 [facility] VEINS RT VALLEY LOWER INTERNAL EXTREMITY MED W/INFLAMMAT ION M4003 POSTURAL 07-11-2015 [facility] KYPHOSIS VALLEY CERVICOTHOR INTERNAL ACIC REGION MED R05 COUGH 06-05-2015 [facility] R600 LOCALIZED 05-09-2015 [facility] EDEMA LAR CONSULTANTS O I348 OTHER 05-05-2015 [facility] NONRHEUMATI SERV C MITRAL FOUNDATION VALVE DISORDERS I361 NONRHEUMATI 05-05-2015 [facility] C TRICUSPID SERV VALVE FOUNDATION INSUFFICIEN CY I371 NONRHEUMATI 05-05-2015 [facility] C PULMONARY SERV VALVE FOUNDATION INSUFFICIEN [...] HOSP 40.0-44.9 INC ADULT N3020 OTHER 04-28-2015 [facility] P WITHOUT HEMATURIA J209 ACUTE 03-31-2015 [facility] BRONCHITIS [facility] UNSPECIFIED INC J11061 PERSONAL 03-31-2015 [facility] HISTORY OF [facility] NICOTINE INC DEPENDENCE A499 BACTERIAL 03-23-2015 [place] [facility] INFECTION SERV UNSPECIFIED FOUNDATION R279 UNSPECIFIED 03-19-2015 [facility] LACK OF [facility]OS[facility] COORDINATIO INC N Z5189 ENCOUNTER 03-19-2015 [facility] FOR OTHER [facility] SPECIFIED INC AFTERCARE 24238 DIAB W/O 03-17-2015 [facility] COMP TYPE I HOME [JUV] NOT MEDICAL STATED EQUIPME UNCNTRL 01287 OBSTRUCTIVE 03-17-2015 [facility] SLEEP HOME APNEA MEDICAL EQUIPME 62198 MULTIPLE 03-17-2015 [facility] CLOSED HOME PELVIC FX MEDICAL DISRUPT EQUIPME PELVIC FOND DU LAC 2449 UNSPECIFIED 03-10-2015 [facility] HYPOTHYROID INC ISM 63075 DIAB W/O 03-10-2015 [facility] COMP TYPE [facility] II/UNS NOT INC STATED UNCNTRL 5854 CHRONIC 03-10-2015 [facility] DISEASE INC STAGE IV (SEVERE) 5990 URINARY 03-10-2015 [facility] TRACT [facility] INFECTION INC SITE NOT SPECIFIED 25382 UNSPECIFIED 03-10-2015 [facility] OSTEOPOROSI INC S 4019 UNSPECIFIED 03-02-2015 [facility] ESSENTIAL VAL[place] HYPERTENSIO INTERNAL N MEDI 4541 VARICOSE 03-02-2015 [place] LOWER [place] INTERNAL EXTREMITIES MEDI W/INFLAMMAT ION 86623 UNSPECIFIED 03-02-2015 [facility] CONSTIPATIO INTERNAL N MEDI 5939 UNSPECIFIED 03-02-2015 [facility] DISORDER VALLEY OF KIDNEY INTERNAL AND URETER MEDI 7823 EDEMA 03-02-2015 [facility] INTERNAL MEDI 11704 UNSPECIFIED 03-02-2015 [place] RETENTION [place] OF URINE INTERNAL MEDI 20532 UNSPECIFIED 02-24-2015 [facility] P MULTIPLE SITES 7813 LACK OF 02-24-2015 [facility] P V571 OTHER 02-24-2015 [facility]ICAL [facility] THERAPY INC 5952 OTHER 02-03-2015 [facility] P 2761 HYPOSMOLALI 01-17-2015 [facility] TY AND/OR HEALTH HYPONATREMI CAMPUS A 57599 LEUKOCYTOSI 01-17-2015 [facility] S HEALTH UNSPECIFIED CAMPUS 5849 ACUTE 01-17-2015 [facility] KIDNEY HEALTH FAILURE CAMPUS UNSPECIFIED 7197 DIFFICULTY 01-17-2015 [facility] IN WALKING HEALTH CAMPUS 08963 MUSCLE 01-17-2015 [facility] WEAKNESS HEALTH (GENERALIZE CAMPUS D) 7993 UNSPECIFIED 01-17-2015 [facility] DEBILITY HEALTH CAMPUS 9953 ALLERGY 01-17-2015 [facility] UNSPECIFIED HEALTH NOT CAMPUS ELSEWHERE CLASSIFIED 46323 HTN CKD UNS 12-25-2014 [place] [facility] W/CKD SERV STAGE I FOUNDATION THRU STAGE IV/UNS 515 POSTINFLAMM 12-16-2014 [facility] ATORY [facility]BI[facility] PULMONARY FIBROSIS V5881 FITTING AND 12-16-2014 [facility] ADJUSTMENT MOBILEX OF VASCULAR CATHETER 4280 CONGESTIVE 12-09-2014 [facility] HEART MOBILEX FAILURE UNSPECIFIED 4293 CARDIOMEGAL 12-09-2014 [facility] Y [facility]BILEX 1101 DERMATOPHYT 12-04-2014 [facility] OSIS OF E NAIL 47246 DIAB 12-04-2014 [facility] W/PERIPH E CIRC D/O TYPE II/UNS NOT UNCNTRL 4439 UNSPECIFIED 12-04-2014 [facility] PERIPHERAL E VASCULAR DISEASE 9172 FOOT&TOE 12-04-2014 [facility] BLISTER E WITHOUT MENTION OF INFECTION 9243 CONTUSION 12-04-2014 [facility] OF TOE E 22627 ABDOMINAL 11-03-2014 [place] PAIN RIGHT MEDICAL UPPER IMAGING ASS QUADRANT 5533 DIAPHRAGMAT 11-01-2014 [place] KODY W/O MEDICAL MENTION IMAGING ASS OBSTRUCTION /GANGREN 7905 OTHER 11-01-2014 [place] NONSPECIFIC MEDICAL ABNORMAL IMAGING ASS SERUM ENZYME LEVELS 7862 COUGH 10-30-2014 [facility] V5869 LONG-TERM 10-30-2014 [facility] (CURRENT) [facility] USE OF INC OTHER MEDICATIONS 74094 UNSPECIFIED 10-28-2014 [place] OTALGIA [facility] 7224 DEGENERATIO 10-28-2014 [place] N OF MEDICAL CERVICAL IMAGING ASS INTERVERTEB RAL DISC 7231 CERVICALGIA 10-28-2014 [facility] 13117 SENILE 06-23-2014 [facility] OSTEOPOROSI [facility] S INC 8539 UNSPECIFIED 05-20-2014 [facility] VITAMIN D [facility] DEFICIENCY INC 2724 OTHER AND 05-20-2014 [facility] UNSPECIFIED [facility]OS[facility] INC HYPERLIPIDE VICTORIANO 57352 OTHER 05-20-2014 [facility] OSTEOPOROSI [facility] S INC 00354 HYPERTENSIV 02-20-2014 [facility] E HEART [facility] DISEASE INC UNSPEC W/HEART FAIL 4660 ACUTE 02-20-2014 [facility] BRONCHITIS [facility] INC 490 BRONCHITIS 02-20-2014 [facility] NOT N EMERGENCY SPECIFIED PHYS ACUTE OR CHRONIC 95817 SWELLING OF 02-20-2014 [facility] N EMERGENCY PHYS 5853 CHRONIC 11-18-2013 [facility] K[facility] SERV DISEASE FOUNDATIO STAGE III (MODERATE) 586 UNSPECIFIED 10-29-2013 [facility] RENAL PHYSICIANS FAILURE [place] 7262 OTHER 05-30-2013 [facility] AFFECTIONS PHYSICIANS OF SHOULDER GROUP REGION NEC 27513 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-2013 [facility] 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 18213 DISORDER OF 05-21-2013 [place] BONE AND MEDICAL CARTILAGE IMAGING ASS UNSPECIFIED V1559 PERSONAL 05-21-2013 [place] HISTORY OF MEDICAL OTHER IMAGING ASS INJURY V4981 ASYMPTOMATI 05-21-2013 [place] C MEDICAL POSTMENOPAU IMAGING ASS KEELY STATUS 94243 UNSPECIFIED 04-29-2013 [facility] INFECTION SERVICES IN CCE & UNS SITE 4659 ACUTE URIS 04-29-2013 [facility] EMERGENCY UNSPECIFIED SERVICES SITE 97844 CRAMP OF 04-05-2013 [facility] PHYSICIANS [place] 7241 PAIN IN 01-16-2013 [facility] SPINE [facility] P 02838 ORTHOPNEA 01-16-2013 [facility] P 75470 OTHER 01-16-2013 [facility] DYSPNEA [facility]GENC[facility] SERVICES RESPIRATORY ABNORMALITI ES 7265 ENTHESOPATH 10-17-2012 [facility] Y OF HIP [facility] REGION INC 94588 PAIN IN 08-22-2012 [place] JOINT MEDICAL PELVIC IMAGING ASS REGION AND THIGH 2749 GOUT, 07-16-2012 [place] [address] SHORTNESS 05-28-2012 [facility] 4240 MITRAL 05-27-2012 [facility] DISORDERS INC 05098 OSTEOARTHRO 05-27-2012 [facility] S UNSPEC [facility] WHETHER INC GEN/LOC UNSPEC SITE 09950 CHEST PAIN 05-27-2012 [place] UNSPECIFIED MEDICAL IMAGING ASS 73445 OTHER CHEST 05-27-2012 [facility] P 5859 CHRONIC 12-01-2011 [facility] DISEASE INC UNSPECIFIED 23773 HYPERSOMNIA 11-15-2011 [facility] WITH SLEEP [facility]IGHT[place] APNEA UNSPECIFIED 79806 ANEMIA OF 10-30-2011 [facility] P DISEASE 2859 UNSPECIFIED 10-30-2011 [facility] 40646 DEGEN 10-30-2011 [place] THORACIC/TH MEDICAL ORACOLUMBAR IMAGING ASS INTERVERTEB RAL DISC 95491 DEGEN 10-30-2011 [place] LUMBAR/LUMB MEDICAL OSACRAL IMAGING ASS INTERVERTEB RAL DISC 7242 LUMBAGO 10-30-2011 [facility] P 7245 UNSPECIFIED 10-30-2011 [facility] BACKACHE [facility] SERVICES 7840 HEADACHE 10-30-2011 [facility] INC 17191 OTHER 10-20-2011 [place] DISEASES OF MEDICAL LUNG NOT IMAGING ASS ELSEWHERE CLASSIFIED 5199 UNSPECIFIED 10-20-2011 [place] DISEASE OF MEDICAL IMAGING ASS RESPIRATORY SYSTEM V5867 LONG-TERM 10-19-2011 [facility] P 3559 MONONEURITI 10-14-2011 [facility] S OF HOME UNSPECIFIED MEDICAL SITE EQUIPME 89054 OTHER 10-14-2011 [facility] MALAISE AND HOME FATIGUE MEDICAL EQUIPME 5180 PULMONARY 10-05-2011 [place] COLLAPSE MEDICAL IMAGING ASS 79204 OTHER 09-30-2011 [facility] STAPHYLOCOC [facility] CUS INC INFECTION IN CCE & UNS SITE 2768 HYPOPOTASSE 09-30-2011 [facility] VICTORIANO [employer] 2888 OTHER 09-30-2011 [facility] SPECIFIED DISEASE OF ASSOCIATES, WHITE BLOOD PSC CELLS 4599 UNSPECIFIED 09-30-2011 [facility] CIRCULATORY INC SYSTEM DISORDER 486 PNEUMONIA, 09-30-2011 [facility] ORGANISM [facility] UNSPECIFIED INC 20373 OTHER 09-30-2011 [place] SPECIFIED MEDICAL DISORDERS IMAGING ASS OF BLADDER 83333 OSTEOARTHRO 09-30-2011 [place] SIS UNSPEC MEDICAL WHETHER IMAGING ASS GEN/LOC LOWER LEG 55263 EFFUSION OF 09-30-2011 [place] LOWER LEG MEDICAL JOINT IMAGING ASS 7291 UNSPECIFIED 09-30-2011 [facility] MYALGIA [employer]ING MYOSITIS 7295 PAIN IN 09-30-2011 [facility] SOFT TISSUES OF ASSOCIATES, LIMB PSC 7821 RASH AND 09-14-2011 [facility] OTHER NONSPECIFIC ASSOCIATES, SKIN PSC ERUPTION V770 SCREENING 09-14-2011 [facility] FOR THYROID DISORDER ASSOCIATES, PSC V7791 SCREENING 09-14-2011 [facility] FOR LIPOID DISORDERS ASSOCIATES, PSC 13132 DIAB 06-24-2011 [facility] W/NEURO MANIFESTS TYPE II/UNS NOT UNCNTRL 7038 OTHER 06-24-2011 [facility] MAR SPECIFIED DISEASE OF NAIL 10812 SECONDARY 03-29-2011 [facility] OSTEOARTHRO CLINIC PSC SIS LOWER LEG 95420 PAIN IN 03-29-2011 [facility] JOINT, [facility]OS[facility] LOWER LEG INC 26060 BACKGROUND 03-25-2011 [facility] DIABETIC VISION RETINOPATHY 97463 NUCLEAR 03-25-2011 [facility] SCLEROSIS VISION 7820 DISTURBANCE 02-09-2011 [facility] OF SKIN [facility] SENSATION INC 2767 HYPERPOTASS 02-07-2011 [facility] EMIA ASSOCIATES 460 ACUTE 02-07-2011 [facility] NASOPHARYNG ASSOCIATES ITIS 6929 CONTACT 01-27-2011 [facility] DERMATITIS& EMERGENCY OTHER SERVICES ECZEMA DUE UNSPEC CAUSE 51947 PAIN IN 12-09-2010 [facility] JOINT, ASSOCIATES MULTIPLE SITES 63747 UNSPEC 10-28-2010 ALLRAN JR VENTRAL ELAINE KODY W/O MENTION OBST/GANGRE N 77307 ABDOMINAL 09-21-2010 [facility] PAIN, MEM HOS[facility] GENERALIZED INC 7831 ABNORMAL 08-24-2010 [facility] WEIGHT GAIN PHYSICIANS [place] 5110 PLEURISY 07-18-2010 [facility] WITHOUT EMERGENCY MENTION SERVICES EFFUS/[place] [address] PAINFUL 07-18-2010 [place] RESPIRATION MEDICAL IMAGING ASS 2721 PURE 07-08-2010 [facility] HYPERGLYCER PHYSICIANS IDEMIA [place] 7944 NONSPECIFIC 07-07-2010 [facility] ABNORM ASSOCIATES RESULTS KIDNEY FUNCTION STUDY 49684 ASTHMA, 06-16-2010 [facility] UNSPECIFIED EMERGENCY , SERVICES UNSPECIFIED STATUS 57943 DIAB 05-21-2010 [facility] LANNY W/OPHTH MANIFESTS TYPE II/UNS NOT UNCNTRL 8250 CLOSED 04-28-2010 [facility] FRACTURE OF [facility] CALCANEUS INC V5416 AFTERCARE 04-28-2010 [place] HEALING MEDICAL TRAUMATIC IMAGING ASS FRACTURE LOWER LEG 8248 UNSPECIFIED 03-31-2010 [place] CLOSED MEDICAL FRACTURE OF IMAGING ASS ANKLE 93749 OTHER ANKLE 03-31-2010 [facility] [employer] STRAIN S INC 9596 INJURY 02-17-2010 [place] OTHER AND MEDICAL UNSPECIFIED IMAGING ASS HIP AND THIGH 9597 INJURY 02-17-2010 [place] OTHER&UNSPE MEDICAL CIFIED KNEE IMAGING ASS LEG ANKLE&FOOT 920 CONTUSION 02-16-2010 [facility] SCALP AND SERVICES NECK EXCEPT EYE 07069 CONTUSION 02-16-2010 [place] OF HIP [facility] INC E8859 FALL FROM 02-16-2010 [facility] OTHER EMERGENCY SLIPPING SERVICES TRIPPING OR STUMBLING 63304 INSOMNIA 02-04-2010 [facility] UNSPECIFIED ASSOCIATES V0382 NEED PROPH 02-04-2010 [facility] VACCINATION ASSOCIATES AGAINST STREP PNEUMONE 42578 URINARY 11-04-2009 [facility] FREQUENCY ASSOCIATES 2811 OTHER 08-24-2009 [facility] VITAMIN B12 ASSOCIATES DEFICIENCY ANEMIA 514 PULMONARY 08-24-2009 [facility] CONGESTION ASSOCIATES AND HYPOSTASIS E8490 PLACE OF 07-10-2009 [facility], MEDICAL HOME IMAGING ASSOCIATES 19854 GEN 04-15-2009 DI[facility] OSTEOARTHRO CARE CLUB [facility] INVOLVING MULTIPLE SITES 7919 OTHER 03-31-2009 [place] NONSPECIFIC [facility] FINDING INC EXAMINATION OF URINE 07286 NEPHRITIS&N 03-24-2009 [facility] EPHROPATHY PRIMARY W/OTH CARE CENTER PATHOLOG KIDNEY LES 69884 NOCTURIA 03-11-2009 [facility] 54847 HYPERSOMNIA 02-26-2009 [facility] ASSOCIATES UNSPECIFIED 05375 DIAB 11-28-2008 [facility] W/OPHMADONNA Meza MANIFESTS TYPE II/UNS TYPE UNCNTRL 4619 ACUTE 06-17-2008 [facility] SINUSITIS, ASSOCIATES UNSPECIFIED 8082 CLOSED 03-18-2008 [facility] FRACTURE OF L REHAB PUBIS ASSOC PSC 7089 UNSPECIFIED 11-17-2007 [facility] URTICARIA ASSOCIATES 6868 OTH SPEC 11-12-2007 [facility] SKIN&SUBCUT PROF SERV TISSUE V642 SURG/OTH 11-11-2007 [place] PROC NOT MEM [facility] CARRIED OUT INC BECAUSE PTS DECN 401.9 Essential [place] hypertensio [facility] [id number] Diastolic [place] heart [facility] failure Hospital [id number] Diabetes [place] mellitus [facility] type 2 [facility] [id number] Mitral [place] valve [facility].09 Dyspnea [facility] Allergies, Adverse Reactions, Alerts Type Drug Allergy [...] RO 40 -3 SE 96 1- Lo VT 10 20 ng DE 20 13 er [...] 02:30 Cnc NT-proBNP SerPl-mCnc (10-03-2016 02:30) NT-proB 07353 0-1799 complet PYROMETER TEMPERATURE REGULATOR 017 pg/mL ed SerPl-m 02:30 Cnc MDRO Wnd (09-30-2016 22:55) CC XXX NOTAP complet VC-aCnc 017 NOT ed 22:55 APPLICA BLE L Bacteri [id number] complet a XXX 017 ed Anaerob 22:55 Staphyl e+Aerob ococcus e Cult aureus (organi sm) SCT SAUR STAPHYL OCOCCUS AUREUS L Bacteri [id number] complet a XXX 017 01 ed Anaerob [...] mIU/L-a Cnc NT-proBNP SerPl-mCnc (09-30-2016 12:10) NT-proB 20628 0-1799 complet PYROMETER TEMPERATURE REGULATOR 017 pg/mL ed SerPl-m 12:10 Cnc T3 SerPl-mCnc (09-30-2016 12:10) T3 67 87-187 complet SerPl-m 017 ng/dL ed Cnc 12:10 Bacteria Ur Cult (09-30-2016 12:10) CC XXX NOTAP complet VC-aCnc 017 NOT ed 12:10 APPLICA BLE L Bacteri [id number] complet a XXX 017 8 Genus ed Anaerob 12:10 e+Aerob Lactoba e Cult cillus (organi sm) SCT LACB LACTOBA CILLUS SPECIES L Bacteria XXX Anaerobe+Aerobe Cult (09-30-2016 12:10) Bacteri [id number] complet a XXX 017 06 No ed [...] Procedure DOS Code Location Performer Comment SBSQ 99994 [facility] 7 PHYSICIAN CARE/DAY S GROUP 25 MINUTES ECG 83066 [facility] BARRETO JR ROUTINE 7 [facility] W/LEAST P 12 LDS I&R ONLY INITIAL [address] [place] [address] PHYSICIAN CARE/DAY S GROUP 70 MINUTES FLUORO [id number] [facility] MULTI 7 [facility] CORONARY INC INC ARTERIES LOW OSMOLAR CONT DILAT [id number] [facility] CORONARY 7 [facility] ART 2 ART INC INC 2 RX-ELUT [place] DEVC PERQ MEASUREME [id number] [facility] NT 7 [facility] CARDIAC INC INC SAMPLING PRESS LT HEART PERQ FLUOROSCO [id number] [facility] PY LEFT 7 [facility] HEART LOW INC INC OSMOLAR CONTRAST FLUORO [id number] [facility] BILATERAL 7 [facility] RENAL INC INC ART LOW OSMOLAR CONTRST GROUND A0425 [facility] PER SERVICE SERVICE STATUTE MILE AMBULANCE A0429 [facility] 7 AMBULANCE AMBULANCE BLS SERVICE SERVICE EMERGENCY TRANSPORT LIPID 80499 [facility]ACK [facility] PANEL 6 [facility] INC INC HEMOGLOBI [id number] [facility] D[facility] N 6 [facility] GLYCOSYLA INC INC ALEX A1C COLLECTIO 88154 [facility] N VENOUS 6 [facility] BLOOD INC INC VENIPUNCT URE COMPREHEN [id number] [facility] SIVE 6 [facility] [place] [address] [facility] THYROID 6 [facility] STIMULATI INC INC NG HORMONE TSH VOLUME 70179 COMBINED COMBINED MEASUREME 6 PHYSICIAN PHYSICIAN NT TIMED S LA S LA COLLECTIO N EACH RENAL 95119 COMBINED COMBINED FUNCTION 6 PHYSICIAN PHYSICIAN PANEL S LA S LA URNLS DIP 12782 COMBINED COMBINED 6 PHYSICIAN PHYSICIAN STICK/TAB S LA S LA LET REAGENT AUTO MICROSCOP Y 25 [id number] COMBINED COMBINED HYDROXY 6 PHYSICIAN PHYSICIAN INCLUDES S LA S LA FRACTIONS IF PERFORMED BLOOD 98462 COMBINED COMBINED COUNT 6 PHYSICIAN PHYSICIAN COMPLETE S LA S LA AUTO&AUTO DIFRNTL WBC CULTURE 42012 COMBINED COMBINED BACTERIAL 6 PHYSICIAN PHYSICIAN S LA S LA QUANTTATI VE COLONY COUNT URINE CULTURE 28505 COMBINED COMBINED BCT 6 PHYSICIAN PHYSICIAN ISOL&PRSM S LA S LA PTV ID ISOLATE EA URINE [facility] A4258 ARRIVA ARRIVA WERED 6 MEDICAL GERM DRIER FOR LANCET EACH NORMAL A4256 ARRIVA ARRIVA LOW AND 6 MEDICAL MEDICAL HIGH CALIBRATO R SOLUTION/ CHIPS LANCETS A4259 ARRIVA ARRIVA PER BOX 6 MEDICAL MEDICAL OF 100 BLD GLU A4253 ARRIVA ARRIVA TEST/REAG 6 MEDICAL MEDICAL T STRIPS HOME BLD GLU MON-50 BASIC [id number] [facility] METABOLIC 6 [facility] PANEL INC INC [facility] [id number] [facility] OBSERVATI 6 [facility] ON INC INC SERVICE PER HOUR GLUC BLD 16861 [facility] GLUC MNTR 6 [facility] DEV INC INC CLEARED FDA SPEC HOME USE COLLECTIO 43739 [facility] D[facility] N VENOUS 6 [facility] BLOOD INC INC VENIPUNCT URE COLLECTIO 52953 [facility] N VENOUS 6 [facility] BLOOD INC INC VENIPUNCT URE COMPREHEN [address] [facility] S[facility] METABOLIC INC INC PANEL GROUND [facility]0425 [facility] PER SERVICE SERVICE STATUTE MILE CREATINE 44684 ZACK DIXON KINASE MB 6 [facility] FRACTION INC INC ONLY GLUC BLD 69474 ZACK DIXON GLUC MNTR 6 [facility] DEV INC INC CLEARED FDA SPEC HOME USE PRESSURIZ 36915 ZACK DIXON ED/NONPRE 6 [facility] SSURIZED INC INC INHALATIO N TREATMENT URNLS DIP 32760 [facility] DIXON 6 [facility] STICK/TAB INC INC LET REAGENT AUT[facility] G0378 ZACK DIXON OBSERVATI 6 [facility] ON INC INC SERVICE PER HOUR BLOOD 80975 ZACK DIXON COUNT 6 [facility] COMPLETE INC INC AUTO&[place] [address] ZACK DIXON TROPONIN 6 [facility] QUANTITAT INC INC MARIBEL CREATINE 76188 ZACK DIXON KINASE 6 [facility] TOTAL INC INC THER 51216 ZACK DIXON PROPH/DX 6 [facility] NJX IV INC INC PUSH SINGLE/1S T SBST/DRUG ECG 69632 ZACK DIXON ROUTINE 6 [facility] ECG INC INC W/LEAST 12 LDS TRCG ONLY W/O I&R ECG 84661 ZACK MCLEAN ROUTINE 6 [facility] W/LEAST P 12 LDS I&R ONLY AMB A0427 [facility] 6 AMBULANCE AMBULANCE ALS SERVICE SERVICE [...] ARRIVA ARRIVA PER BOX 6 MEDICAL MEDICAL [facility] STANDARD K0001 REID DELGADILLOCHAI 6 HOME HOME R MEDICAL MEDICAL EQUIPME EQUIPME HOS BED E0260 REID REID SEMI-ELEC 6 HOME HOME W/ANY MEDICAL MEDICAL TYPE SIDE EQUIPME EQUIPME RAIL W/MATTRSS COLLECTIO 05191 ZACK DIXON N VENOUS 6 [facility] BLOOD INC INC VENIPUNCT URE LIPID 93054 ZACK DIXON PANEL 6 [facility] INC INC HEMOGLOBI 05825 ZACK DIXON N 6 [facility] GLYCOSYLA INC INC ALEX A1C BASIC 29697 ZACK DIXON METABOLIC 6 [facility] PANEL INC INC CALCIUM TOTAL STANDARD K0001 REID REID WHEELCHAI 6 HOME HOME R MEDICAL MEDICAL EQUIPME EQUIPME HOS BED E0260 REID REID SEMI-ELEC 6 HOME HOME W/ANY MEDICAL MEDICAL TYPE SIDE EQUIPME EQUIPME RAIL W/MATTRSS URNLS DIP 82967 ZACK DIXON 6 [facility] [...] A4259 ARRIVA ARRIVA PER BOX 6 [facility] [place] [address] [facility] G0378 ZACK DIXON OBSERVATI 6 [facility] ON INC INC SERVICE PER HOUR GLUC BLD 83120 ZACK DIXON GLUC MNTR 6 [facility] DEV INC INC CLEARED FDA SPEC HOME USE OBSERVATI 42941 [facility] WILL ON CARE 6 [place] CHARMAINE DISCHARGE INTERNAL MEDI MANAGEMEN T GLUC BLD 65330 ZACK DIXON GLUC MNTR 6 [facility] DEV INC INC CLEARED FDA SPEC HOME USE COLLECTIO 13446 ZACK DIXON N VENOUS 6 [facility] BLOOD INC INC V[facility]IPUNCT URE [facility]OSP[facility] G0378 ZACK [facility]IXON OBSERVATI 6 [facility] [place] [address] ZACK DIXON TROPONIN 6 [facility] QUANTITAT INC INC MARIBEL BLOOD 63589 ZACK DIXON COUNT 6 [facility] COMPLETE INC INC AUTO&AUTO DIFRNTL WBC BASIC 68641 ZACK DIXON METABOLIC 6 [facility] [place] [address] ZACK DIXON LIPASE 6 [facility] INC INC CREATINE 51409 ZACK DIXON KINASE 6 [facility] TOTAL INC INC BLOOD 40681 ZACK DIXON COUNT 6 [facility] COMPLETE INC INC AUTO&[place] [address] ZACK DIXON TROPONIN 6 [facility] QUANTITAT INC [facility] G0378 ZACK DIXON OBSERVATI 6 [facility] ON INC INC SERVICE PER HOUR COLLECTIO 15031 ZACK DIXON N VENOUS 6 [facility] BLOOD INC INC VENIPUNCT URE COMPREHEN 48609 ZACK DIXON SIVE 6 [facility] METABOLIC INC INC PANEL INJECTION J2405 ZACK DIXON 6 [facility] ONDANSETR INC INC ON HCL PER 1 MG CREATINE 50383 ZACK DIXON KINASE MB 6 [facility] FRACTION INC INC ONLY GROUND A0425 [facility] MILEAGE 6 AMBULANCE AMBULANCE PER SERVICE SERVICE STATUTE MILE GLUC BLD 62461 ZACK DIXON GLUC MNTR 6 [facility] DEV INC [place] [address] ZACK DIXON INFUSION 6 [facility] THERAPY/P INC INC ROPHYLAXI S /DX 1ST TO 1 HR THERAPEUT 29133 ZACK DIXON IC 6 [facility] INJECTION INC INC IV PUSH EACH NEW DRUG INITIAL 23039 [facility] VINAY OBSERVATI [address] [place] [address] ON INTERNAL CARE/DAY [place] [address] [place] [address] ZACK DIXON HEAD/BRAI 6 [facility] N W/O INC INC CONTRAST MATERIAL RADIOLOGI 96959 ZACK ZACK C 6 [facility] EXAMINATI INC INC ON CHEST SINGLE VIEW FRONTAL URNLS DIP 31888 ZACK DIXON 6 [facility] STICK/TAB INC INC LET REAGENT AUTO MICROSCOP Y AMB A0427 [facility] 6 AMBULANCE AMBULANCE ALS SERVICE SERVICE EMERGENCY TRANSPORT LEVEL 1 ECG 77132 ZACK BARRETO JR ROUTINE 6 [facility] W/LEAST P 12 LDS I&R ONLY ECG 84740 ZACKSHANDA DIXON ROUTINE 6 [facility] ECG INC INC W/LEAST 12 LDS TRCG ONLY W/O I&[place] [address] COMBINED COMBINED PHOSPHORU 6 PHYSICIAN PHYSIC[place] [address] COMBINED COMBINED BLOOD/URI 6 PHYSICIAN PHYSICIAN C ACID S LA S LA ALBUMIN 23643 COMBINED COMBINED SERUM 6 PHYSICIAN PHYSICIAN PLASMA/[place] [address] COMBINED COMBINED THYROID 6 PHYSICIAN PHYSICIAN STIMULATI S LA S LA NG HORMONE TSH BLOOD 49180 COMBINED COMBINED COUNT 6 PHYSICIAN PHYSICIAN COMPLETE S LA S LA AUTO&[place] [address] COMBINED COMBINED MAGNESIUM 6 PHYSICIAN PHYSICIAN S LA S LA CYANOCOBA 32143 COMBINED COMBINED SOHA 6 PHYSICIAN PHYSICIAN VITAMIN S LA S LA B-12 BASIC 67948 COMBINED COMBINED METABOLIC 6 PHYSICIAN PHYSICIAN PANEL S LA S LA CALCIUM TOTAL STANDARD K0001 REID MATHEWS WHEELCHAI 6 HOME HOME R MEDICAL MEDICAL EQUIPME EQUIPME HOS BED E0260 REID MATHEWS SEMI-ELEC 6 HOME HOME W/ANY MEDICAL MEDICAL TYPE SIDE EQUIPME EQUIPME RAIL W/MATTRSS PHYS G0179 [facility] RE-CERT 6 [place] TRACY MCR-COVR INTERNAL [facility] SRVC RE-CERT PRD BLOOD 14312 ZACK ZACK COUNT 6 [facility] COMPLETE INC INC AUTO&AUTO DIFRNTL WBC AMBULANCE A0429 [facility] 6 AMBULANCE AMBULANCE BLS SERVICE SERVICE EMERGENCY TRANSPORT GROUND A0425 [facility] MILEAGE 6 AMBULANCE AMBULANCE PER SERVICE SERVICE STATUTE MILE COMPREHEN 61468 ZACK DIXON SIVE 6 [facility] METABOLIC INC INC PANEL URNLS DIP 03542 ZACK DIXON 6 [facility] STICK/TAB INC INC LET REAGENT AUTO MICROSCOP Y GLUC BLD 33486 ZACK ZACK GLUC MNTR 6 [facility] DEV INC INC CLEARED FDA SPEC HOME USE SBSQ 06378 [facility] FACIL INTERNAL CARE/DAY MED NEW PROBLEM 25 MIN SBSQ 42968 [facility] 6 [facility] FACIL INTERNAL CARE/DAY MEDI MINOR COMPLJ 15 MIN HOS BED E0260 REID MATHEWS SEMI-ELEC 6 HOME HOME W/ANY MEDICAL MEDICAL TYPE SIDE EQUIPME EQUIPME RAIL W/MATTRSS STANDARD K0001 REID LOMAS 6 HOME HOME R MEDICAL MEDICAL EQUIPME EQUIPME RADEX 65395 SYMPHONY SYMPHONY SPINE 6 MOBILEX MOBILEX CERVICAL 2 OR 3 VIEWS RADEX 20464 SYMPHONY SYMPHONY SPINE 6 MOBILEX MOBILEX THORACIC 2 VIEWS SBSQ 04580 [facility] 6 [facility] FACIL INTERNAL CARE/DAY MED NEW PROBLEM 25 MIN STANDARD K0001 REID LOMAS 5 HOME HOME R MEDICAL MEDICAL EQUIPME EQUIPME HOS BED E0260 REID MATHEWS SEMI-ELEC 5 HOME HOME W/ANY MEDICAL MEDICAL TYPE SIDE EQUIPME EQUIPME RAIL W/MATTRSS AMB A0427 [facility] 5 AMBULANCE AMBULANCE ALS SERVICE SERVICE EMERGENCY TRANSPORT LEVEL 1 CULTURE 65887 ZACK DIXON BACTERIAL 5 [facility] INC INC QUANTTATI VE COLONY COUNT URINE GROUND A0425 [facility] 5 AMBULANCE AMBULANCE PER SERVICE SERVICE STATUTE [facility] 62973 ZACK DIXON SIVE 5 [facility] METABOLIC INC INC PANEL NATRIURET 28215 ZACK DIXON IC 5 [facility] PEPTIDE INC INC PRESSURIZ 48443 ZACK ELLIOTTON ED/NONPRE 5 [facility] SSURIZED INC INC INHALATIO N TREATMENT URNLS DIP 69479 ZACK DIXON 5 [facility] STICK/TAB INC INC LET REAGENT AUTO MICROSCOP Y RADIOLOGI 74044 ZACK DIXON C EXAM 5 [facility] CHEST 2 INC INC VIEWS FRONTAL&L ATERAL BLOOD 15834 ZACK DIXON COUNT 5 [facility] COMPLETE INC INC AUTO&AUTO DIFRNTL WBC SUSCEPTIB 13360 ZACK DIXON LTY STDY 5 [facility] ANTIMICRB INC INC IAL MICRO/AGA R DILUTJ STANDARD K0001 REID CHAUDHARII 5 HOME HOME R MEDICAL MEDICAL EQUIPME EQUIPME HOS BED E0260 REID GLASSRELL SEMI-ELEC 5 HOME HOME W/ANY MEDICAL MEDICAL TYPE SIDE EQUIPME EQUIPME RAIL W/MATTRSS SBSQ 46128 [place] [address] CULAR MAT CARE/DAY CONSULTAN 25 TS O MINUTES ECHO 25804 [facility] POSADAOR 5 MEDICAL JUAN J C R-T 2D SERV W/WO FOUNDATIO M-MODE N REC F-UP/LMTD INITIAL 08492 [facility] 5 CULAR MAT CARE/DAY CONSULTAN 70 TS O MINUTES RADIOLOGI 95261 LIZZ Lopez EXAM 5 MEDICAL MELIDA CHEST 2 IMAGING VIEWS ASS FRONTAL&L ATERAL STANDARD K0001 REID CHAUDHARII 5 HOME HOME R MEDICAL MEDICAL EQUIPME EQUIPME HOS BED E0260 REID GLASSRELL SEMI-ELEC 5 HOME HOME W/ANY MEDICAL MEDICAL TYPE SIDE EQUIPME EQUIPME RAIL W/MATTRSS THERAPEUT 91279 ZACK DIXON IC PX 1/> 5 [facility] AREAS INC INC EACH 15 MIN EXERCISES LANCETS A4259 ARRIVA ARRIVA PER BOX 5 MEDICAL MEDICAL OF 100 NORMAL A4256 ARRIVA ARRIVA LOW AND 5 MEDICAL MEDICAL HIGH CALIBRATO R SOLUTION/ CHIPS BLD GLU A4253 ARRIVA ARRIVA TEST/REAG 5 MEDICAL MEDICAL T STRIPS HOME BLD GLU MON-50 URNLS DIP 43564 ZACK CALDERON 5 [facility] STICK/TAB [facility] LET RGNT P NON-AUTO W/O MICRSCP THERAPEUT 51592 ZACK DIXON IC PX 1/> 5 [facility] AREAS INC INC EACH 15 MIN EXERCISES HOS BED E0260 REID MATHEWS SEMI-ELEC 5 HOME HOME W/ANY MEDICAL MEDICAL TYPE SIDE EQUIPME EQUIPME RAIL W/MATTRSS STANDARD K0001 REID MATHEWS WHEELCHAI 5 HOME HOME R MEDICAL MEDICAL EQUIPME EQUIPME THERAPEUT 75592 ZACK DIXON IC PX 1/> 5 [facility] AREAS INC INC EACH 15 MIN EXERCISES THERAPEUT 19576 ZACK DIXON IC PX 1/> 5 [facility] AREAS INC INC EACH 15 MIN EXERCISES CULTURE 81634 ZACK DIXON BACTERIAL 5 [facility] INC INC QUANTTATI VE COLONY COUNT URINE CULTURE 61344 ZACK DIXON BCT 5 [facility] ISOL&PRSM INC [place] [address] ZACK DIXON THYROID 5 [facility] STIMULATI INC INC NG HORMONE TSH COLLECTIO 35098 ZACK DIXON N VENOUS 5 [facility] BLOOD INC INC VENIPUNCT URE URNLS DIP 01424 ZACK DIXON 5 [facility] STICK/TAB INC INC LET REAGENT AUTO MICROSCOP Y RENAL 04685 ZACK DIXON FUNCTION 5 [facility] PANEL INC INC HEMOGLOBI 07561 ZACK DIXON N 5 [facility] GLYCOSYLA INC INC ALEX A1C 25 33433 ZACK DIXON HYDROXY 5 [facility] INCLUDES INC INC FRACTIONS IF PERFORMED BLOOD 59423 ZACK DIXON COUNT 5 [facility] COMPLETE INC INC AUTO&AUTO DIFRNTL WBC SUSCEPTIB 58814 ZACK DIXON LTY STDY 5 [facility] ANTIMICRB INC INC IAL MICRO/AGA R DILUTJ THERAPEUT 40305 ZACK ZACK IC PX 1/> 5 [facility] AREAS INC INC EACH 15 MIN EXERCISES THERAPEUT 54263 ZACK DIXON IC PX 1/> 5 [facility] AREAS INC INC EACH 15 MIN EXERCISES THERAPEUT 83754 ZACK DIXON IC PX 1/> 5 [facility] AREAS INC INC EACH 15 MIN EXERCISES THERAPEUT 49148 ZACK DIXON IC PX 1/> 5 [facility] AREAS INC INC EACH 15 MIN EXERCISES CULTURE 56480 ZACK DIXON BCT 5 [facility] ISOL&PRSM INC INC PTV ID ISOLATE EA URINE CULTURE 88922 ZACK DIXON BACTERIAL 5 [facility] INC INC QUANTTATI VE COLONY COUNT URINE SUSCEPTIB 98354 ZACK DIXON LTY STDY 5 [facility] ANTIMICRB INC INC IAL MICRO/AGA R DILUTJ PHYSICAL 89445 ZACK DIXON THERAPY 5 [facility] EVALUATIO INC INC N CATH CLCT P9612 ZACK CALDERON SPECIMEN 5 [facility] PT ALL P PLACES SERVICE URNLS DIP 97199 ZACK ALVARADOKINS 5 [facility] LET RGNT P NON-AUTO W/O MICRSCP STANDARD K0001 REID MATHEWS WHEELCHAI 5 HOME HOME R MEDICAL MEDICAL EQUIPME EQUIPME COMMODE E0163 REID MATHEWS CHAIR 5 HOME HOME MOBILE OR MEDICAL MEDICAL EQUIPME EQUIPME STATIONAR Y W/FIXED ARMS HOS BED E0260 REID MATHEWS SEMI-ELEC 5 HOME HOME W/ANY MEDICAL MEDICAL TYPE SIDE EQUIPME EQUIPME RAIL W/MATTRSS CULTURE 73109 ZACK DIXON BACTERIAL 5 [facility] INC INC QUANTTATI VE COLONY COUNT URINE CULTURE 02433 ZACK DIXON BCT 5 [facility] ISOL&PRSM INC INC PTV ID ISOLATE EA URINE SUSCEPTIB 70309 ZACK DIXON LTY STDY 5 [facility] ANTIMICRB INC INC IAL MICRO/AGA R DILUTJ ONELIA 66723 ZACK CALDERON POST-VOID 5 [facility] RESIDUAL P URINE&/BL ADDER CAP RADIOLOGI 24529 SYMPHONY SYMPHONY C 5 MOBILEX MOBILEX EXAMINATI ON CHEST SINGLE VIEW FRONTAL RADIOLOGI 44246 SYMPHONY SYMPHONY C 5 MOBILEX MOBILEX EXAMINATI ON CHEST SINGLE VIEW FRONTAL DEBRIDEME 73860 [facility] 5 ARE ANDREZ ANY METHOD 6/> INITIAL 49778 [facility] [place] NURSING 5 ARE ANDREZ FACILITY CARE/DAY 25 MINUTES SBSQ 53701 [facility] NURSING 5 [facility] INTERNAL CARE/DAY MED NEW PROBLEM 25 MIN BLOOD 32855 COMBINED COMBINED COUNT 5 PHYSICIAN PHYSICIAN COMPLETE S LA S LA AUTO&AUTO DIFRNTL WBC BASIC 80845 COMBINED COMBINED METABOLIC 5 PHYSICIAN PHYSICIAN [place] [address] [place] LEROYSAL[place]ORLALY ABDOMINAL 5 MEDICAL KAY REAL IMAGING TIME ASS W/[place] [address] [place] SHERI ABDOMEN & 5 MEDICAL MELIDA PELVIS IMAGING W/O ASS CONTRAST MATERIAL CRITICAL 95855 ZACK DIXON CARE 5 [facility] ED P P PATIENT INIT 30-74 MIN ECG 31386 ZACK VINAY ROUTINE 5 [facility] W/LEAST P 12 LDS I&R ONLY RADIOLOGI 68263 [place] RODRIGUEZ ALL C 5 MEDICAL EXAMINATI IMAGING ON CHEST ASS SINGLE VIEW FRONTAL RADEX 51027 [facility] MASTOIDS 5 MEDICAL KAY COMPL IMAGING MINIMUM 3 ASS VIEWS MD SIDE RADEX 33510 [place] FRANKY SPINE 5 MEDICAL KAY CERVICAL IMAGING 4 OR 5 ASS VIEWS LANCETS A4259 ARRIVA ARRIVA PER BOX 5 MEDICAL MEDICAL OF 100 NORMAL A4256 ARRIVA ARRIVA LOW AND 5 MEDICAL MEDICAL HIGH CALIBRATO R SOLUTION/ CHIPS BLD GLU A4253 ARRIVA ARRIVA TEST/REAG 5 MEDICAL MEDICAL T STRIPS HOME BLD GLU MON-50 CEIBA-PO A4258 ARRIVA ARRIVA WERED 5 MEDICAL GERM DRIER FOR LANCET EACH COMPREHEN 10115 COMBINED COMBINED SIVE 5 PHYSICIAN PHYSICIAN METABOLIC S LA S LA PANEL COLLECTIO 10744 ZACK DIXON N VENOUS 5 [facility] BLOOD INC INC VENIPUNCT URE RENAL 31418 ZACK DIXON FUNCTION 5 [facility] PANEL INC INC INJECTION J0897 ZACK DIXON 5 [facility] DENOSUMAB INC INC 1 MG THERAPEUT 98725 ZACK DIXON IC 5 [facility] PROPHYLAC INC INC TIC/DX INJECTION SUBQ/[place] [address] ZACK DIXON PARATHORM 4 [facility] ONE INC INC DXA BONE 13402 ZACK DIXON DENSITY 4 [facility] STUDY 1/> INC INC SITES AXIAL SKEL 25 47338 ZACK DIXON HYDROXY 4 [facility] INCLUDES INC INC FRACTIONS IF PERFORMED PROTEIN 74285 ZACK DIXON XCPT 4 [facility] REFRACTOM INC INC ETRY SERUM PLASMA/WH L BLD BLOOD 14522 ZACK DIXON COUNT 4 [facility] COMPLETE INC INC AUTO&AUTO DIFRNTL WBC SUSCEPTIB 30648 ZACK DIXON LTY STDY 4 [facility] ANTIMICRB INC INC IAL MICRO/AGA R DILUTJ CREATININ 77378 ZACK DIXON E OTHER 4 [facility] SOURCE INC INC COLLECTIO 89107 ZACK DIXON N VENOUS 4 [facility] BLOOD INC INC VENIPUNCT URE RENAL 93227 ZACK DIXON FUNCTION 4 [facility] PANEL INC INC URNLS DIP 63541 ZACK DIXON 4 [facility] STICK/TAB INC INC LET REAGENT AUTO MICROSCOP Y CULTURE 94745 ZACK DIXON BACTERIAL 4 [facility] INC INC QUANTTATI VE COLONY COUNT URINE CULTURE 69836 ZACK DIXON BCT 4 [facility] ISOL&PRSM INC INC PTV ID ISOLATE EA URINE COMPREHEN 11357 COMBINED COMBINED SIVE 4 PHYSICIAN PHYSICIAN METABOLIC S LA S LA PANEL COMPREHEN 62341 ZACK DIXON SIVE 4 [facility] METABOLIC INC INC PANEL CREATINE 25092 ZACK DIXON KINASE MB 4 [facility] FRACTION INC INC ONLY URNLS DIP 93522 ZACK DIXON 4 [facility] STICK/TAB INC INC LET REAGENT AUTO MICROSCOP Y RADIOLOGI 01373 ZACK DIXON C EXAM 4 [facility] CHEST 2 INC INC VIEWS FRONTAL&L ATERAL PRESSURIZ 74097 ZACK DIXON ED/NONPRE 4 [facility] SSURIZED INC INC INHALATIO N TREATMENT BLOOD 76209 ZACK DIXON COUNT 4 [facility] COMPLETE INC INC AUTO&[place] [address] ZACK DIXON TROPONIN 4 [facility] QUANTITAT INC INC MARIBEL CREATINE 11374 ZACK DIXON KINASE 4 [facility] TOTAL INC INC 25 02523 ZACK DIXON HYDROXY 4 [facility] INCLUDES INC INC FRACTIONS IF PERFORMED BLOOD 94625 ZACK DIXON COUNT 4 [facility] COMPLETE INC INC AUTO&AUTO DIFRNTL WBC RENAL 47719 ZACK DIXON FUNCTION 4 [facility] PANEL INC INC COLLECTIO 34253 ZACK DIXON N VENOUS 4 [facility] BLOOD INC INC VENIPUNCT URE INJECTION J0897 ZACK DIXON 4 [facility] DENOSUMAB INC INC 1 MG THERAPEUT 81635 ZACK DIXON IC 4 [facility] PROPHYLAC INC INC TIC/DX INJECTION SUBQ/IM BASIC 32749 COMBINED COMBINED METABOLIC 4 PHYSICIAN PHYSICIAN PANEL S LA S LA CALCIUM TOTAL COMPREHEN 87586 COMBINED COMBINED SIVE 4 PHYSICIAN PHYSICIAN METABOLIC S LA S LA PANEL COLLECTIO 52558 ZACK DIXON N VENOUS 4 [facility] BLOOD INC INC VENIPUNCT URE BASIC 60085 ZACK DIXON METABOLIC 4 [facility] PANEL INC INC CALCIUM TOTAL THERAPEUT 94758 ZACK DIXON IC 4 [facility] PROPHYLAC INC INC TIC/DX INJECTION SUBQ/IM INJECTION J0897 ZACK ZACK 4 [facility] DENOSUMAB INC INC 1 MG INJECTION 53545 [facility] 1 [place] 3 PHYSICIAN PHYSICIAN S GROUP S GROUP SHEATH/LI GAMENT APONEUROS IS ARTHROCEN 91599 [facility] PETTEY TESIS 3 PHYSICIAN JAM ASPIR&/IN S GROUP J MAJOR JT/BURSA W/O US INJ J0702 [facility] PETTEAg BETAMETHA 3 PHYSICIAN TONI SONE S GROUP ACETATE & PHOSPHATE 3 MG DXA BONE 01267 [place]I DENSITY 3 MEDICAL MELIDA STUDY 1/> IMAGING SITES ASS AXIAL SKEL 25 37734 ZACK DIXON HYDROXY 3 [facility] INCLUDES [place] [address] ZACK DIXON PARATHORM 3 [facility] ONE INC INC BASIC 28088 COMBINED COMBINED METABOLIC 3 PHYSICIAN PHYSICIAN PANEL S LA S LA CALCIUM TOTAL BLOOD 70430 ZACK DIXON COUNT 3 [facility] COMPLETE INC INC AUTO&AUTO DIFRNTL WBC COLLECTIO 83391 ZACK DIXON N VENOUS 3 [facility] BLOOD INC INC VENIPUNCT URE RENAL 98334 ZACK DIXON FUNCTION 3 [facility] PANEL INC INC URNLS DIP 96830 ZACK DIXON 3 [facility] STICK/TAB INC INC LET REAGENT AUTO MICROSCOP Y ALBUMIN 30944 ZACK DIXON URINE 3 [facility] MICROALBU INC INC MIN QUANTIATI VE RADIOLOGI 39897 [place]I C EXAM 3 MEDICAL MELIDA CHEST 2 IMAGING VIEWS [place] FR[place] [address] ZACK DIXON STREPTOCO 3 [facility] CCUS INC INC GROUP A CUL BACT 34680 ZACK DIXON XCPT 3 [facility] URINE INC INC BLOOD/STO OL AEROBIC ISOL IAADI 29725 ZACK DIXON INFLUENZA 3 [facility] B VIRUS INC INC IAADI 23935 ZACK DIXON INFFLUENZ 3 [facility] [place] [address] COMBINED COMBINED BLOOD/URI 3 PHYSICIAN PHYSICIAN C ACID S LA S LA BASIC 49083 COMBINED COMBINED METABOLIC 3 PHYSICIAN PHYSICIAN PANEL S LA S LA CALCIUM TOTAL THER 63058 ZACK DIXON PROPH/DX 3 [facility] NJX IV INC INC PUSH SINGLE/1S T SBST/DRUG CREATINE 58280 ZACK DIXON KINASE 3 [facility] TOTAL INC INC BLOOD 60659 ZACK DIXON COUNT 3 [facility] COMPLETE INC INC AUTO&[place] [address] ZACK DIXON TROPONIN 3 [facility] QUANTITAT INC INC MARIBEL TECHNETIU A9567 ZACK Flanagan TC-99M 3 [facility] PENTETATE INC INC DX AEROSOL TO 75 MCI CREATINE 18566 ZACK DIXON KINASE MB 3 [facility] FRACTION INC INC ONLY COMPREHEN 00594 ZACK DIXON SIVE 3 [facility] METABOLIC INC INC PANEL RADIOLOGI 56566 ZACK Lopez EXAM 3 [facility] CHEST 2 INC INC VIEWS FRONTAL&L ATERAL RADIOLOGI 50793 ZACK Lopez 3 [facility] EXAMINATI INC INC ON CHEST SINGLE [place] FRONTAL RHYTHM 17546 ZACK DIXON ECG 1-3 3 [facility] LEADS INC INC TRACING ONLY W/O I&R ECG 42635 EMEKA LIRA ROUTINE 3 EMERGENCY ECG SERVICES W/LEAST 12 LDS I&R ONLY PULMONARY 15021 ZACK DIXON 3 [facility] VENTILATI INC INC ON & PERFUSION IMAGING FIBRIN 12971 ZACK DIXON DGRADJ 3 [facility] PRODUCTS INC INC D-DIMER QUAL/SEMI BARB TECHNETIU A9540 ZACK Flanagan TC-99M 3 [facility] MAA DX INC INC STDY DOSE UP TO 10 MCI ECG 27969 ZACK DIXON ROUTINE 3 [facility] ECG INC INC W/LEAST 12 LDS TRCG ONLY W/O I&R RENAL 27817 ZACK DIXON FUNCTION 3 [facility] PANEL INC INC COLLECTIO 53959 ZACK DIXON N VENOUS 3 [facility] BLOOD INC INC VENIPUNCT URE BLOOD 21573 ZACK DIXON COUNT 3 [facility] COMPLETE INC INC AUTO&AUTO DIFRNTL WBC THERAPEUT 23130 ZACK DIXON IC 3 [facility] PROPHYLAC INC INC TIC/DX INJECTION SUBQ/IM INJECTION J0897 ZACK DIXON 3 [facility] DENOSUMAB INC INC 1 MG APPLICATI 92086 ZACK DIXON ON 3 [facility] MODALITY INC INC 1/> AREAS HOT/COLD PACKS E-STIM G0283 ZACK DIXON 1/> AREAS 3 [facility] OTH THAN INC INC WND CARE PART TX PLAN APPL 05009 ZACK DIXON MODALITY 3 [facility] 1/> AREAS INC INC 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 63663 ZACK DIXON IC PX 1/> 3 [facility] AREAS INC INC EACH 15 MIN EXERCISES THERAPEUT 48373 ZACK DIXON IC PX 1/> 3 [facility] AREAS INC INC EACH 15 MIN EXERCISES E-STIM G0283 ZACK DIXON 1/> AREAS 3 [facility] OTH THAN INC INC WND CARE PART TX PLAN APPL 41616 ZACK DIXON MODALITY 3 [facility] 1/> AREAS INC INC 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 APPLICATI 04729 ZACK DIXON ON 3 [facility] MODALITY INC INC 1/> AREAS HOT/COLD PACKS APPLICATI 16939 ZACK DIXON ON 3 [facility] MODALITY INC INC 1/> AREAS HOT/COLD PACKS E-STIM G0283 ZACK DIXON 1/> AREAS 3 [facility] OTH THAN INC INC WND CARE PART TX PLAN APPL 76538 ZACK DIXON MODALITY 3 [facility] 1/> AREAS INC INC 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 71438 ZACK DIXON IC PX 1/> 3 [facility] AREAS INC INC EACH 15 MIN EXERCISES THERAPEUT 72715 ZACK DIXON IC PX 1/> 3 [facility] AREAS INC INC EACH 15 MIN EXERCISES APPL 21057 ZACK DIXON MODALITY 3 [facility] 1/> AREAS INC INC 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 G0283 ZACK DIXON 1/> AREAS 3 [facility] OTH THAN INC INC WND CARE PART TX PLAN APPLICATI 28798 ZACK DIXON ON 3 [facility] MODALITY INC INC 1/> AREAS HOT/COLD PACKS E-STIM G0283 ZACK DIXON 1/> AREAS 3 [facility] OTH THAN INC INC WND CARE PART TX PLAN THERAPEUT 09990 ZACK DIXON IC PX 1/> 3 [facility] AREAS INC INC EACH 15 MIN EXERCISES THERAPEUT 71326 ZACK DIXON IC PX 1/> 3 [facility] AREAS INC INC EACH 15 MIN EXERCISES E-STIM G0283 ZACK DIXON 1/> AREAS 3 [facility] OTH THAN INC INC WND CARE PART TX PLAN CULTURE 70292 COMBINED COMBINED BACTERIAL 3 PHYSICIAN PHYSICIAN S LA S LA QUANTTATI VE COLONY COUNT URINE APPL 82575 ZACK DIXON MODALITY 3 [facility] 1/> AREAS INC INC 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 APPLICATI 40948 ZACK DIXON ON 3 [facility] MODALITY INC INC 1/> AREAS HOT/COLD PACKS APPLICATI 39561 ZACK DIXON ON 3 [facility] MODALITY INC INC 1/> AREAS HOT/COLD PACKS APPL 95677 ZACK DIXON MODALITY 3 [facility] 1/> AREAS INC INC 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 84037 ZACK DIXON IC PX 1/> 3 [facility] AREAS INC INC EACH 15 MIN EXERCISES E-STIM G0283 ZACK DIXON 1/> AREAS 3 [facility] OTH THAN INC INC WND CARE PART TX PLAN THERAPEUT 39473 ZACK DIXON IC PX 1/> 3 [facility] AREAS INC INC EACH 15 MIN EXERCISES APPL 13545 ZACK DIXON MODALITY 3 [facility] 1/> AREAS INC INC 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 G0283 ZACK ZACK 1/> [facility] O[facility] THAN INC INC WND CARE PART TX PLAN THERAPEUT 71092 ZACK DIXON IC PX 1/> [facility] ARE[facility] INC INC EACH 15 MIN EXERCISES APPL 30869 ZACK DIXON MODALITY 3 [facility]/> AREAS INC INC ULTRASOUN D EA 15 MIN APPLICATI 59897 ZACK DIXON ON 3 [facility] MODALITY INC INC 1/> AREAS HOT/COLD PACKS THERAPEUT 74165 ZACK DIXON IC PX 1/> 3 [facility] AREAS INC INC EACH 15 MIN EXERCISES E-STIM G0283 ZACK DIXON 1/> AREAS [facility] OTH THAN INC INC WND CARE PART TX PLAN APPL 23933 ZACK DIXON MODALITY 3 [facility] 1/> AREAS INC INC 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 APPL 89707 ZACK DIXON MODALITY 3 [facility] 1/> AREAS INC INC 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 G0283 ZACK DIXON 1/> AREAS 3 [facility] OTH THAN INC INC WND CARE PART TX PLAN THERAPEUT 34277 ZACK DIXON IC PX 1/> 3 [facility] AREAS INC INC EACH 15 MIN EXERCISES APPLICATI 76381 ZACK DIXON ON 3 [facility] MODALITY INC INC 1/> AREAS HOT/COLD PACKS APPLICATI 00136 ZACK DIXON ON 3 [facility] MODALITY INC INC 1/> AREAS HOT/COLD PACKS APPL 04958 ZACK DIXON MODALITY 3 [facility] 1/> AREAS INC INC ULTRASOUN D EA 15 MIN THERAPEUT 95738 ZACK DIXON IC PX 1/> 3 [facility] AREAS INC INC EACH 15 MIN EXERCISES APPL 12471 ZACK DIXON MODALITY 3 [facility] 1/> AREAS INC INC 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 G0283 ZACK DIXON 1/> AREAS 3 [facility] OTH THAN INC INC WND CARE PART TX PLAN E-STIM G0283 ZACK DIXON 1/> AREAS 3 [facility] OTH THAN INC INC WND CARE PART TX PLAN APPL 07752 ZACK DIXON MODALITY 3 [facility] 1/> AREAS INC INC 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 77548 ZACK DIXON IC PX 1/> 3 [facility] AREAS INC INC EACH 15 MIN EXERCISES APPL 47032 ZACK DIXON MODALITY 3 [facility] 1/> AREAS INC INC ULTRASOUN D EA 15 MIN APPL 03895 ZACK DIXON MODALITY 3 [facility] 1/> AREAS INC INC ULTRASOUN D EA 15 MIN BLOOD 16577 ZACK ZACK COUNT 3 [facility] COMPLETE INC INC AUTO&AUTO DIFRNTL WBC SUSCEPTIB 76054 ZACK ZACK LTY STDY 3 [facility] ANTIMICRB INC INC IAL MICRO/[place] [address] ZACK DIXON PARATHORM 3 [facility] ONE INC INC 25 29265 ZACK DIXON HYDROXY 3 [facility] INCLUDES [place] [address] ZACK DIXON NEPHELOME 3 [facility] TRY EACH INC INC ANALYTE YANELY COLLECTIO 19333 ZACK DIXON N VENOUS 3 [facility] BLOOD INC INC VENIPUNCT URE RENAL 71831 ZACK DIXON FUNCTION 3 [facility] PANEL INC INC URNLS DIP 75463 ZACK ZACK 3 [facility] STICK/TAB INC INC LET REAGENT AUTO MICROSCOP Y THERAPEUT 12589 ZACK DIXON IC PX 1/> 3 [facility] AREAS INC INC EACH 15 MIN EXERCISES PROTEIN 81718 ZACK DIXON ELECTROPH 3 [facility] ORETIC INC INC FRACTJ&QU ANTJ SERUM APPL 10099 ZACK DIXON MODALITY 3 [facility]/> AREAS INC INC 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 CULTURE 89721 ZACK DIXON BCT 3 [facility] ISOL&PRSM INC INC PTV ID ISOLATE EA URINE E-STIM G0283 ZACK DIXON 1/> AREAS [facility] OTH THAN INC INC WND CARE PART TX PLAN CULTURE 73161 ZACK DIXON BACTERIAL 3 [facility] INC INC QUANTTATI VE COLONY COUNT URINE E-STIM G0283 ZACK DIXON 1/> AREAS 3 [facility] OTH THAN INC INC WND CARE PART TX PLAN APPL 26260 ZACK DIXON MODALITY 3 [facility] 1/> AREAS INC INC 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 04873 ZACK DIXON IC PX 1/> 3 [facility] AREAS INC INC EACH 15 MIN EXERCISES APPLICATI 42969 ZACK DIXON ON 3 [facility] MODALITY INC INC 1/> AREAS HOT/COLD PACKS APPLICATI 08586 ZACK DIXON ON 3 [facility] MODALITY INC INC 1/> AREAS HOT/COLD PACKS APPL 63034 ZACK DIXON MODALITY 3 [facility] 1/> AREAS INC INC ULTRASOUN D EA 15 MIN THERAPEUT 25644 ZACK DIXON IC PX 1/> 3 [facility] AREAS INC INC EACH 15 MIN EXERCISES APPL 10443 ZACK DIXON MODALITY 3 [facility] 1/> AREAS INC INC 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 G0283 ZACK DIXON 1/> AREAS 3 [facility] OTH THAN INC INC WND CARE PART TX PLAN APPL 63509 ZACK DIXON MODALITY 3 [facility] 1/> AREAS INC INC 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 G0283 ZACK ZACK 1/> AREAS 3 [facility] OTH THAN INC INC WND CARE PART TX PLAN THERAPEUT 70002 ZACK DIXON IC PX 1/> 3 [facility] AREAS INC INC EACH 15 MIN EXERCISES APPL 19065 ZACK DIXON MODALITY 3 [facility] 1[facility] AREAS INC INC ULTRASOUN D EA 15 MIN APPL 69710 ZACK ZACK MODALITY 3 [facility] 1/> AREAS INC INC ULTRASOUN D EA 15 MIN APPLICATI 05192 ZACK DIXON ON 3 [facility] MODALITY INC INC 1/> AREAS HOT/COLD PACKS THERAPEUT 80131 ZACK ZACK IC PX 1/> 3 [facility] AREAS INC INC EACH 15 MIN EXERCISES APPL 78132 ZACK DIXON MODALITY 3 [facility] 1/> AREAS INC INC 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 G0283 ZACK DIXON 1/> AREAS 3 [facility] OTH THAN INC INC WND CARE PART TX PLAN APPL 56879 ZACK DIXON MODALITY 3 [facility] 1/> AREAS INC INC 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 42809 ZACK ZACK IC PX 1/> 3 [facility] AREAS INC INC EACH 15 MIN EXERCISES BASIC 50439 COMBINED COMBINED METABOLIC 3 PHYSICIAN PHYSICIAN PANEL S LA S LA CALCIUM TOTAL APPL 54627 ZACK DIXON MODALITY 3 [facility] 1/> AREAS INC INC ULTRASOUN D EA 15 MIN APPL 96292 ZACK DIXON MODALITY 3 [facility] 1/> AREAS INC INC ULTRASOUN D EA 15 MIN THERAPEUT 54011 ZACK DIXON IC PX 1/> 3 [facility] AREAS INC INC EACH 15 MIN EXERCISES APPL 91726 ZACK DIXON MODALITY 3 [facility] 1/> AREAS INC INC 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 G0283 ZACK DIXON 1/> AREAS 3 [facility] OTH THAN INC INC WND CARE PART TX PLAN E-STIM G0283 ZACK DIXON 1/> AREAS 3 [facility] OTH THAN INC INC WND CARE PART TX PLAN APPL 66033 ZACK DIXON MODALITY 3 [facility] 1/> AREAS INC INC 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 24014 ZACK DIXON IC PX 1/> 3 [facility] AREAS INC INC EACH 15 MIN EXERCISES APPL 67359 ZACK DIXON MODALITY 3 [facility] 1/> AREAS INC INC ULTRASOUN D EA 15 MIN APPL 99118 ZACK DIXON MODALITY 3 [facility] 1/> AREAS INC INC ULTRASOUN D EA 15 MIN APPLICATI 18723 ZACK DIXON ON 3 [facility] MODALITY INC INC 1/> AREAS HOT/COLD PACKS THERAPEUT 80524 ZACK DIXON IC PX 1/> 3 [facility] AREAS INC INC EACH 15 MIN EXERCISES E-STIM G0283 ZACK DIXON 1/> AREAS 3 [facility] OTH THAN INC INC WND CARE PART TX PLAN E-STIM G0283 ZACK DIXON 1/> AREAS 3 [facility] OTH THAN INC INC WND CARE PART TX PLAN THERAPEUT 91251 ZACK DIXON IC PX 1/> 3 [facility] AREAS INC INC EACH 15 MIN EXERCISES APPL 03065 ZACK DIXON MODALITY 3 [facility] 1/> AREAS INC INC ULTRASOUN D EA 15 MIN THERAPEUT 42769 ZACK DIXON IC PX 1/> 3 [facility] AREAS INC INC EACH 15 MIN EXERCISES E-STIM G0283 ZACK DIXON 1/> AREAS 3 [facility] OTH THAN INC INC WND CARE PART TX PLAN APPL 84249 ZACK DIXON MODALITY 3 [facility] 1/> AREAS INC INC 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 G0283 ZACK DIXON 1/> AREAS 3 [facility] OTH THAN INC INC WND CARE PART TX PLAN THERAPEUT 49056 ZACK DIXON IC PX 1/> 3 [facility] AREAS INC INC EACH 15 MIN EXERCISES APPLICATI 26877 ZACK DIXON ON 3 [facility] MODALITY INC INC 1/> AREAS HOT/COLD PACKS APPL 62912 ZACK DIXON MODALITY 3 [facility] 1/> AREAS INC INC ULTRASOUN D EA 15 MIN APPL 32969 ZACK DIXON MODALITY 3 [facility] 1/> AREAS INC INC 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 60482 ZACK DIXON IC PX 1/> 3 [facility] AREAS INC INC EACH 15 MIN EXERCISES E-STIM G0283 ZACK DIXON 1/> AREAS 3 [facility] OTH THAN INC INC WND CARE PART TX PLAN E-STIM G0283 ZACK DIXON 1/> AREAS 3 [facility] OTH THAN INC INC WND CARE PART TX PLAN THERAPEUT 76063 ZACK DIXON IC PX 1/> 3 [facility] AREAS INC INC EACH 15 MIN EXERCISES APPL 04300 ZACK DIXON MODALITY 3 [facility] 1/> AREAS INC INC 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 APPL 65014 ZACK DIXON MODALITY 3 [facility] 1/> AREAS INC INC ULTRASOUN D EA 15 MIN APPLICATI 74223 ZACK DIXON ON 3 [facility] MODALITY INC INC 1/> AREAS HOT/COLD PACKS APPLICATI 68382 ZACK DIXON ON 3 [facility] MODALITY INC INC 1/> AREAS HOT/COLD PACKS APPL 95097 ZACK DIXON MODALITY 3 [facility] 1/> AREAS INC INC ULTRASOUN D EA 15 MIN APPL 47812 ZACK DIXON MODALITY 3 [facility] 1/> AREAS INC INC 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 G0283 ZACK DIXON 1/> AREAS 3 [facility] OTH THAN INC INC WND CARE PART TX PLAN E-STIM G0283 ZACK DIXON 1/> AREAS 3 [facility] OTH THAN INC INC WND CARE PART TX PLAN THERAPEUT 98128 ZACK DIXON IC PX 1/> 3 [facility] AREAS INC INC EACH 15 MIN EXERCISES APPL 21101 ZACK ZACK MODALITY 3 [facility] 1/> AREAS INC INC 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 APPL 56908 ZACK DIXON MODALITY 3 [facility] 1/> AREAS INC INC ULTRASOUN D EA 15 MIN APPLICATI 23407 ZACK DIXON ON 3 [facility] MODALITY INC INC 1/> AREAS HOT/COLD PACKS APPLICATI 26168 ZACK DIXON ON 3 [facility] MODALITY INC INC 1/> AREAS HOT/COLD PACKS APPL 52839 ZACK DIXON MODALITY 3 [facility] 1[facility] AREAS INC INC ULTRASOUN D EA 15 MIN APPL 70289 ZACK DIXON MODALITY 3 [facility] 1/> AREAS INC INC 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 10540 ZACK ZACK IC PX 1/> 3 [facility] AREAS INC INC EACH 15 MIN EXERCISES E-STIM G0283 ZACK ZACK 1/> AREAS 3 [facility] OTH THAN INC INC WND CARE PART TX PLAN THERAPEUT 17812 ZACK DIXON IC PX 1/> 3 [facility] AREAS INC INC EACH 15 MIN EXERCISES APPL 21597 ZACK DIXON MODALITY 3 [facility] 1/> AREAS INC INC ULTRASOUN D EA 15 MIN APPLICATI 50773 ZACK DIXON ON 3 [facility] MODALITY INC INC 1/> AREAS HOT/COLD PACKS PHYSICAL 29329 ZACK DIXON THERAPY 3 [facility] EVALUATIO INC INC N APPL 97575 ZACK DIXON MODALITY 3 [facility] 1/> AREAS INC INC 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 RADEX HIP 30741 LIZZ WADE 3 [facility] UNILATERA IMAGING L ASS COMPLETE MINIMUM 2 VIEWS BASIC 14523 COMBINED COMBINED METABOLIC 3 PHYSICIAN PHYSICIAN [place] [address] COMBINED COMBINED BLOOD/URI 3 PHYSICIAN PHYSICIAN C ACID S LA S LA BASIC 90929 ZACK DIXON METABOLIC 2 [facility] PANEL INC INC CALCIUM TOTAL BLOOD 65207 ZACK DIXON COUNT 2 [facility] COMPLETE INC INC AUTO&AUTO [facility]NTL [facility] G0378 ZACK DIXON OBSERVATI 2 [facility] ON INC INC SERVICE PER HOUR GLUC BLD 61341 ZACK DIXON GLUC MNTR 2 [facility] DEV INC INC CLEARED FDA SPEC HOME USE COLLECTIO 58110 ZACK DIXON N VENOUS 2 [facility] BLOOD INC INC VENIPUNCT URE COLLECTIO 04375 ZACK DIXON N VENOUS 2 [facility] BLOOD INC INC VENIPUNCT URE CREATINE 40465 ZACK DIXON KINASE MB 2 [facility] FRACTION INC INC ONLY TECHNETIU A9567 ZACK DIXON M TC-99M 2 [facility] PENTETATE INC INC DX AEROSOL TO 75 MCI GLUC BLD 27090 ZACK DIXON GLUC MNTR 2 [facility] DEV INC INC CLEARED FDA SPEC HOME USE NONINVASI 09020 ZACK DIXON VE 2 [facility] EAR/PULSE INC INC OXIMETRY [facility] G0378 ZACK DIXON OBSERVATI 2 [facility] [place] [address] ZACK DIXON TROPONIN 2 [facility] QUANTITAT INC INC MARIBEL BLOOD 03809 ZACK DIXON COUNT 2 [facility] COMPLETE INC INC AUTO&AUTO DIFRNTL WBC PULMONARY 08404 LIZZ WADE 2 [facility] VENTILATI IMAGING ON & ASS PERFUSION IMAGING BASIC 17429 ZACK IDXON METABOLIC 2 [facility] PANEL INC INC CALCIUM TOTAL CREATINE 89491 ZACK DIXON KINASE 2 [facility] TOTAL INC INC ECHO 94697 [facility] TTHRC R-T 2 DINA MORA 2D CARDIOLOG W/WOM-MOD Y CLINIC E COMPL SPEC&COLR D TECHNETIU A9540 ZACK Flanagan TC-99M 2 [facility] MAA DX INC INC STDY DOSE UP TO 10 MCI FIBRIN 05903 ZCAK DIXON DGRADJ 2 [facility] PRODUCTS INC INC D-DIMER QUAL/SEMI BARB ECG 23120 ZACK DIXON ROUTINE 2 [facility] ECG INC INC W/LEAST 12 LDS TRCG ONLY W/O I&R ECG 60800 ZACK LIAOSON ROUTINE 2 [facility] W/LEAST P 12 LDS I&R ONLY CREATINE 25629 ZACK DIXON KINASE 2 [facility] TOTAL INC INC THERAPEUT 77020 ZACK DIXON IC 2 [facility] PROPHYLAC INC INC TIC/DX INJECTION SUBQ/IM BASIC 18217 ZACK DIXON METABOLIC 2 [facility] PANEL INC INC CALCIUM TOTAL CULTURE 08641 ZACK DIXON BACTERIAL 2 [facility] BLOOD INC INC AEROBIC W/ID ISOLATES BLOOD 66802 ZACK DIXON COUNT 2 [facility] COMPLETE INC INC AUTO&[place] [address] ZACK DIXON TROPONIN 2 [facility] QUANTITAT INC INC [facility] G0378 ZACK DIXON OBSERVATI 2 [facility] ON INC INC SERVICE PER HOUR NATRIURET 04160 ZACK DIXON IC 2 [facility] PEPTIDE INC INC GLUC BLD 01497 ZACK DIXON GLUC MNTR 2 [facility] DEV INC INC CLEARED FDA SPEC HOME USE URNLS DIP 50620 ZACK DIXON 2 [facility] STICK/TAB INC INC LET REAGENT AUTO MICROSCOP Y RADIOLOGI 84454 ZACK DIXON C EXAM 2 [facility] CHEST 2 INC INC VIEWS FRONTAL&L ATERAL CREATINE 52398 ZACK DIXON KINASE MB 2 [facility] FRACTION INC INC ONLY COLLECTIO 86840 ZACK DIXON N VENOUS 2 [facility] BLOOD INC INC VENIPUNCT URE BLOOD 25642 ZACK DIXON COUNT 2 [facility] COMPLETE INC INC AUTO&AUTO DIFRNTL WBC BASIC 49839 ZACK DIXON METABOLIC 2 [facility] PANEL INC INC CALCIUM TOTAL THERAPEUT 16026 ZACK DIXON IC 2 [facility] PROPHYLAC INC INC TIC/DX INJECTION SUBQ/IM INJECTION J0897 ZACK DIXON 2 [facility] DENOSUMAB INC INC 1 MG CREATININ 12400 ZACK DIXON E OTHER 2 [facility] SOURCE INC INC COLLECTIO 99009 ZACK DIXON N VENOUS 2 [facility] BLOOD INC INC VENIPUNCT URE RENAL 06455 ZACK DIXON FUNCTION 2 [facility] PANEL INC INC URNLS DIP 89948 ZACK DIXON 2 [facility] STICK/TAB INC INC [place] [address] ZACK DIXON PARATHORM 2 [facility] ONE INC INC 25 02012 ZACK DIXON HYDROXY 2 [facility] INCLUDES INC INC FRACTIONS IF PERFORMED DXA BONE 63789 [facility] DENSITY 2 [facility] STUDY 1/> IMAGING SITES ASS AXIAL SKEL BLOOD 55639 ZACK DIXON COUNT 2 [facility] COMPLETE INC INC AUTO&AUTO DIFRNTL WBC PROTEIN 10443 ZACK DIXON XCPT 2 [facility] [...] AIRWAY EQUIPME EQUIPME PRESSURE DEVICE CV STRS 98500 [facility] TST 2 PHYSICIAN XERS&/OR S GROUP RX CONT ECG W/O I&R MYOCARDIA 78539 [facility] MULTIPLE CARDIOLOG STUDIES Y CLINIC CV STRS 75835 ZACK ZAPATA TST 2 [facility] XERS&/OR HOSPITAL RX CONT P ECG I&R ONLY SUSCEPTIB 31302 ZACK DIXON LTY STDY 2 [facility] ANTIMICRB INC INC IAL MICRO/AGA R DILUTJ POLYSOM 33139 ZACK DIXON 6/>YRS 2 [facility] SLEEP INC INC W/CPAP 4/> ADDL HARSHIL ATTND CULTURE 47401 ZACK DIXON BCT 2 [facility] ISOL&PRSM INC INC PTV ID ISOLATE EA URINE CULTURE 79406 ZACK DIXON BACTERIAL 2 [facility] INC INC [place]TT[place] [address] ZACK DIXON PARATHORM 2 [facility] ONE INC INC 25 97991 ZACK DIXON HYDROXY 2 [facility] INCLUDES INC INC FRACTIONS IF PERFORMED BLOOD 56829 ZACK DIXON COUNT 2 [facility] COMPLETE INC INC AUTO&AUTO DIFRNTL WBC PROTEIN 65158 ZACK DIXON XCPT 2 [facility] REFRACTOM INC INC ETRY SERUM PLASMA/WH L BLD CREATININ 59027 ZACK DIXON E OTHER 2 [facility] SOURCE INC INC COLLECTIO 35451 ZACK DIXON N VENOUS 2 [facility] BLOOD INC INC VENIPUNCT URE URNLS DIP 92772 ZACK DIXON 2 [facility] STICK/TAB INC INC LET REAGENT AUTO MICROSCOP Y RENAL 51296 ZACK DIXON FUNCTION 2 [facility] PANEL INC INC POLYSOM 51655 ESTIVEN JEAN-BAPTISTE 6/>YRS 2 [facility] SLEEP 4/> ADDL HARSHIL ATTND LANCETS A4259 [facility] PER BOX 2 HOME HOME OF 100 MEDICAL MEDICAL EQUIPME EQUIPME BLD GLU A4253 [facility] TEST/REAG 2 HOME HOME T STRIPS MEDICAL MEDICAL HOME BLD EQUIPME EQUIPME GLU MON-50 POLYSOM 88320 ZACK DIXON 6/>YRS 2 [facility] SLEEP / INC INC ADDL HARSHIL ATTND RADIOLOGI 25449 ZACK ZACK C 2 [facility] EXAMINATI INC [place] [address] ZACK DIXON HEAD/BRAI 2 [facility] N W/O INC INC CONTRAST MATERIAL RADEX 04114 [place] [facility] SPINE 2 [facility] THORACIC IMAGING 3 VIEWS ASS URNLS DIP 99590 ZACK DIXON 2 [facility] STICK/TAB INC INC LET REAGENT AUTO MICROSCOP Y RADEX 40460 [place] [facility] SPINE 2 [facility] LUMBOSACR IMAGING AL ASS MINIMUM 4 VIEWS CREATINE 81607 ZACK DIXON KINASE MB 2 [facility] FRACTION INC INC ONLY BASIC 35913 ZACK DIXON METABOLIC 2 [facility] PANEL INC INC CALCIUM TOTAL CREATINE 85642 ZACK DIXON KINASE 2 [facility] [place] [address] ZACK DIXON TROPONIN 2 [facility] QUANTITAT INC INC MARIBEL BLOOD 22712 ZACK DIXON COUNT 2 [facility] COMPLETE INC INC AUTO&AUTO DIFRNTL WBC ECG 73278 EMEKA SHIN ROUTINE 2 EMERGENCY III NANCY ECG SERVICES W/LEAST 12 LDS I&R ONLY ECG 18366 ZACK DIXON ROUTINE 2 [facility] ECG INC INC W/LEAST 12 LDS TRCG ONLY W/O I&R 3D 24989 ZACK DIXON RENDERING 2 [facility] W/INTERP INC INC & [place] [address] ZACK DIXON PHOSPHORU 2 [facility] [place] [address] ZACK DIXON BLOOD/URI 2 [facility] C ACID INC INC 25 76260 ZACK DIXON HYDROXY 2 [facility] INCLUDES INC [place] [address] ZACK DIXON PARATHORM 2 [facility] [place] [address] ZACK DIXON FERRITIN 2 [facility] INC INC CYANOCOBA 36040 ZACK DIXON SOHA 2 [facility] VITAMIN INC INC B-12 BASIC 32321 ZACK DIXON METABOLIC 2 [facility] [place] [address] ZACK DIXON FOLIC 2 [facility] [place] [address] ZACK DIXON IRON 2 [facility] INC INC RADIOLOGI 46498 [facility] EXAM 2 MED[facility] M[facility] SKULL IMAGING COMPLETE ASS MINIMUM 4 VIEWS RADEX 55860 ZACK DIXON SPINE 2 [facility] CERVICAL INC INC 6 OR MORE VIEWS IRRIGAJ 48599 ZACK DIXON IMPLNTD 2 [facility] VENOUS INC INC ACCESS DRUG DELIVERY SYST IRON 00099 ZACK DIXON BINDING 2 [facility] CAPACITY INC INC GLUC BLD 81728 ZACK DIXON GLUC MNTR 2 [facility] DEV INC INC CLEARED FDA SPEC HOME USE GLUC BLD 47571 ZACK DIXON GLUC MNTR 2 [facility] DEV INC INC CLEARED FDA SPEC HOME USE NONINVASI 92770 ZACK DIXON VE 2 [facility] EAR/PULSE INC INC OXIMETRY SINGLE DETER BASIC 22933 ZACK DIXON METABOLIC 2 [facility] PANEL INC INC CALCIUM TOTAL BLOOD 11527 ZACK DIXON COUNT 2 [facility] COMPLETE INC INC AUTO&[facility]O [facility]NTL [facility] G0378 ZACK DIXON OBSERVATI 2 [facility] ON INC INC [facility] G0378 ZACK ZACK OBSERVATI 2 [facility] [place] [address] ZACK DIXON TROPONIN 2 [facility] QUANTITAT INC INC MARIBEL BLOOD 51866 ZACK DIXON COUNT 2 [facility] COMPLETE INC INC AUTO&AUTO DIFRNTL WBC PULMONARY 94178 [facility] VENTILATI IMAGING ON & ASS PERFUSION IMAGING BASIC 49997 ZACK DIXON METABOLIC 2 [facility] PANEL INC INC CALCIUM TOTAL CREATINE 28729 ZACK DIXON KINASE 2 [facility] TOTAL INC INC NONINVASI 65927 ZACK DIXON VE 2 [facility] EAR/PULSE INC INC OXIMETRY SINGLE DETER INITIAL 80613 [facility] 2 PHYSICIAN CARE/DAY S GROUP 50 MINUTES GLUC BLD 45817 ZACK DIXON GLUC MNTR 2 [facility] DEV INC INC CLEARED FDA SPEC HOME USE RAD[facility]OLOGI 19149 [facility] EXAM 2 [facility] CHEST 2 IMAGING VIEWS ASS FRONTAL&L ATERAL CREATINE 34144 ZACK DIXON KINASE MB 2 [facility] FRACTION INC INC ONLY TECHNETIU A9567 ZACK Flanagan TC-99M 2 [facility] PENTETATE INC INC DX AEROSOL TO 75 MCI ECHO 86255 [facility] TTHRC R-T 2 DINA MORA 2D CARDIOLOG W/WOM-MOD Y CLINIC E COMPL SPEC&COLR D ECG 88584 ZACK MCLEAN ROUTINE 2 [facility] W/LEAST P 12 LDS I&R ONLY TECHNETIU A9540 ZACK Flanagan TC-99M 2 [facility] MAA DX INC INC STDY DOSE UP TO 10 MCI ECG 14731 ZACK DIXON ROUTINE 2 [facility] ECG INC INC W/LEAST 12 LDS TRCG ONLY W/O I&R ECG 19245 ZACKSHANDA ELLIOTTON ROUTINE 2 [facility] ECG INC INC W/LEAST 12 LDS TRCG ONLY W/O I&R FIBRIN 74850 ZACK DIXON DGRADJ 2 [facility] PRODUCTS INC INC D-DIMER QUAL/SEMI BARB ECG 20865 EMEKA WILCOX ROUTINE 2 [facility] ECG SERVICES W/LEAST 12 LDS I&R ONLY CULTURE 78622 ZACK DIXON BACTERIAL 2 [facility] INC INC QUANTTATI VE COLONY COUNT URINE CULTURE 76941 ZACK DIXON BCT 2 [facility] ISOL&PRSM INC INC PTV ID ISOLATE EA URINE CREATINE 97684 ZACK DIXON KINASE MB 2 [facility] FRACTION INC INC ONLY COMPREHEN 59618 ZACK DIXON SIVE 2 [facility] METABOLIC INC INC PANEL URNLS DIP 92466 AZCK DIXON 2 [facility] STICK/TAB INC INC LET REAGENT AUTO MICROSCOP Y NATRIURET 79051 ZACK DIXON IC 2 [facility] PEPTIDE INC INC RADIOLOGI 05148 [facility] 2 MEDICAL MELIDA EXAMINATI IMAGING ON CHEST ASS SINGLE VIEW FRONTAL CREATINE 34825 ZACK DIXON KINASE 2 [facility] TOTAL INC INC THERAPEUT 73054 ZACK DIXON IC 2 [facility] PROPHYLAC INC INC TIC/DX INJECTION SUBQ/IM BLOOD 34038 ZACK DIXON COUNT 2 [facility] COMPLETE INC INC AUTO&AUTO DIFRNTL WBC CULTURE 76227 ZACK DIXON BACTERIAL 2 [facility] BLOOD INC INC AEROBIC W/ID ISOLATES SUSCEPTIB 42323 ZACK DIXON LTY STDY 2 [facility] ANTIMICRB INC INC IAL MICRO/[place] [address] ZACK DIXON TROPONIN 2 [facility] MEM [...] HOME BLD EQUIPME EQUIPME GLU MON-50 RADIOLOGI 24909 [place] [facility] 2 MEDICAL MELIDA EXAMINATI IMAGING ON CHEST ASS SINGLE VIEW FRONTAL VENOUS 3893 ZACK DIXON CATHETERI 2 [facility] ZATION INC INC NOT ELSEWHERE CLASSIFIE D RADIOLOGI 44884 [place] [facility] EXAM 2 [facility] CHEST 2 IMAGING VIEWS ASS FRONTAL&L ATERAL RADIOLOGI 71638 [place] [facility] EXAM 2 [facility] CHEST 2 IMAGING VIEWS ASS FRONTAL&L ATERAL RADIOLOGI 18381 [place] [facility] C 2 MEDICAL [facility] EXAMINATI IMAGING ON KNEE 3 ASS VIEWS COMPREHEN 14443 COMBINED COMBINED SIVE 2 PHYSICIAN PHYSICIAN METABOLIC S LA S LA PANEL COLLECTIO 87235 FAMILY STRAWZELL N VENOUS 2 CARE CRI BLOOD ASSOCIATE VENIPUNCT S, PSC URE CYANOCOBA 27242 COMBINED COMBINED SOHA 2 PHYSICIAN PHYSICIAN VITAMIN S LA S LA B-12 BLOOD 57850 FAMILY STRAWZELL COUNT 2 CARE CRI COMPLETE ASSOCIATE AUTO&AUTO [place], [place] [address] [place] [facility] RETROPERI 2 MEDICAL MELIDA TONEAL IMAGING REAL TIME ASS W/IMAGE COMPLETE HANDLG&/O 54794 FAMILY STRAWZELL R CONVEY 2 CARE CRI OF SPEC ASSOCIATE FOR TR S, PSC OFFICE TO LAB SEDIMENTA 02761 COMBINED COMBINED TION RATE 2 PHYSICIAN PHYSICIAN RBC S LA S LA NON-AUTOM ATED ANTINUCLE 55367 LAB Z[facility] LAB ZOEY AR 2 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 YUNG RHEUMATOI 31183 COMBINED COMBINED D FACTOR 2 PHYSICIAN PHYSIC[place] [address] COMBINED COMBINED BLOOD/URI 2 PHYSICIAN PHYSICIAN C ACID S LA S LA HANDLG&/O 69053 FAMILY STRAWZELL R CONVEY 2 CARE CRI OF SPEC ASSOCIATE FOR TR S, PSC OFFICE TO LAB 25 71460 COMBINED COMBINED HYDROXY 2 PHYSICIAN PHYSICIAN INCLUDES S LA S LA FRACTIONS IF PERFORMED COLLECTIO 29893 FAMILY STRAWZELL N VENOUS 2 CARE CRI BLOOD ASSOCIATE VENIPUNCT S, PSC URE COMPREHEN 36248 COMBINED COMBINED SIVE 2 PHYSICIAN PHYSICIAN [place] [address] COMBINED COMBINED THYROID 2 PHYSICIAN PHYSICIAN STIMULATI S LA S LA NG HORMONE TSH HEMOGLOBI 26493 FAMILY STRAWZELL N 2 CARE CRI GLYCOSYLA ASSOCIATE ALEX A1C S, PSC LIPID 91665 FAMILY STRAWZELL PANEL 2 CARE CRI ASSOCIATE S, PSC RADIOLOGI 24731 ZACK DIXON C EXAM 2 [facility] CHEST 2 INC INC VIEWS FRONTAL&L ATERAL DUP-SCAN 87149 ZACK DIXON XTR VEINS 2 [facility] INC INC UNILATERA L/LIMITED STUDY RENAL 36639 ZACK DIXON FUNCTION 2 [facility] PANEL INC INC URNLS DIP 15167 ZACK DIXON 2 [facility] STICK/TAB INC INC LET REAGENT AUTO MICROSCOP Y HEPATIC 39969 ZACK DIXON FUNCTION 2 [facility] PANEL INC INC COLLECTIO 80888 ZACK DIXON N VENOUS 2 [facility] BLOOD INC INC VENIPUNCT URE BLOOD 50859 ZACK DIXON COUNT 2 [facility] COMPLETE INC INC AUTO&AUTO DIFRNTL WBC DEBRIDEME 55946 PAWSAT PAWSAT NT NAIL 2 MAR MAR ANY METHOD 1-5 THERAPEUT 75887 ZACK DIXON IC 1 [facility] PROPHYLAC INC INC TIC/DX INJECTION SUBQ/IM BASIC 65501 ZACK DIXON METABOLIC 1 [facility] PANEL INC INC CALCIUM TOTAL COLLECTIO 99831 ZACK DIXON N VENOUS 1 [facility] BLOOD INC INC VENIPUNCT URE COLLECTIO 52017 ZACK DIXON N VENOUS 1 [facility] BLOOD INC INC VENIPUNCT URE BASIC 68586 ZACK DIXON METABOLIC 1 [facility] PANEL INC INC CALCIUM TOTAL THERAPEUT 26877 ZACK ZACK IC 1 [facility] PROPHYLAC INC INC TIC/DX INJECTION SUBQ/[place] [address] ZACK DIXON PARATHORM 1 [facility] ONE INC INC 25 34653 ZACK DIXON HYDROXY 1 [facility] INCLUDES INC INC FRACTIONS IF PERFORMED PROTEIN 32087 ZACK DIXON XCPT 1 [facility] REFRACTOM INC INC ETRY SERUM PLASMA/WH L BLD BLOOD 82878 ZACKSHANDA DIXON COUNT 1 [facility] COMPLETE INC INC AUTO&AUTO DIFRNTL WBC COLLECTIO 05926 ZACK DIXON N VENOUS 1 [facility] BLOOD INC INC VENIPUNCT URE CREATININ 54640 ZACK DIXON E OTHER 1 [facility] SOURCE INC INC URNLS DIP 07059 ZACK DIXON 1 [facility] STICK/TAB INC INC LET REAGENT AUTO MICROSCOP Y RENAL 95546 ZACK DIXON FUNCTION 1 [facility] PANEL INC INC PROTEIN 79409 ZACKSHANDA DIXON ELECTROPH 1 [facility] ORETIC INC INC FRACTJ&QU ANTJ SERUM COLLECTIO 52988 ZACK DIXON N VENOUS 1 [facility] BLOOD INC INC VENIPUNCT URE BASIC 37461 ZACK DIXON METABOLIC 1 [facility] PANEL INC INC CALCIUM TOTAL ARTHROCEN 70527 ROSA ROSENTHAL TESIS 1 [place] [facility]&/IN CLINIC J MAJOR PSC JT/BURSA W/O US RADIOLOGI 70227 ZACK DIXON C EXAM 1 [facility] BOTH INC INC KNEES STANDING ANTEROPOS T INJECTION J1030 ROSA ROSENTHAL [facility] DNISOLONE PSC ACETATE 40 MG DXA BONE 04336 ZACK DIXON DENSITY 1 [facility] STUDY 1/> INC INC SITES AXIAL SKEL OPHTH 01314 ARYAN PETERS [facility] 1 VISION XM&EVAL COMPRHNSV ESTAB PT 1/> [place] [address] ZACK DIXON RETROPERI 1 [facility] TONEAL INC INC REAL TIME W/IMAGE COMPLETE NON-INVAS 83237 [place] SHERI MARIBEL 1 MEDICAL MELIDA PHYSIOLOG IMAGING IC STUDY ASS EXTREMITY 3 [place] [address] COMBINED COMBINED PHOSPHORU 1 PHYSICIAN [place] [address] COMBINED COMBINED PARATHORM 1 PHYSICIAN PHYSICIAN ONE S LA S LA BASIC 32669 COMBINED COMBINED METABOLIC 1 PHYSICIAN PHYSICIAN PANEL S LA S LA CALCIUM TOTAL 25 22009 COMBINED COMBINED HYDROXY 1 PHYSICIAN PHYSICIAN INCLUDES S LA S LA FRACTIONS IF PERFORMED BLD GLU A4253 REID MATHEWS TEST/REAG 1 HOME MED HOME MED T STRIPS EQUIP. L EQUIP. L HOME BLD GLU MON-50 LANCETS A4259 REID GLASSRELL PER BOX 1 HOME MED HOME MED OF 100 EQUIP. L EQUIP. L CREATININ 84791 ZACK ELLIOTTON E BLOOD 1 [facility] INC INC COLLECTIO 02046 ZACK DIXON N VENOUS 1 [facility] [place] [address] [place] [facility]I ABDOMEN 1 MEDICAL MELIDA W/[place] [address] ZACK DIXON UREA 1 [facility] NITROGEN INC INC QUANTITAT MARIBEL 3D 63604 [place] [facility]I RENDERING 1 MEDICAL MELIDA IMAGING W/INTERP& ASS POSTPROC DIFF WORK STATION HEPATBL 34498 [place] SHERI DUX SYS 1 MEDICAL MELIDA IMG IMAGING GLBLDR ASS TECHNETIU A9537 ZACK DIXON M TC-99M 1 [facility] MEBROFENI INC INC N DX UP [place] 15 [place] [address] [place] ABDOMINAL 1 MEDICAL MELIDA REAL IMAGING TIME ASS W/IMAGE LIMITED COMPREHEN 63827 COMBINED COMBINED SIVE 1 PHYSICIAN PHYSICIAN METABOLIC S LA S LA PANEL COLLECTIO 88069 COMBINED COMBINED N VENOUS 1 PHYSICIAN PHYSICIAN BLOOD S LA S LA VENIPUNCT URE COMPREHEN 70582 COMBINED COMBINED SIVE 1 PHYSICIAN PHYSICIAN [place] [address] COMBINED COMBINED AMYLASE 1 PHYSICIAN PHYSICIAN S LA S LA COLLECTIO 56897 FAMILY MULBERRY N VENOUS 1 CARE NILO BLOOD [place] [address] COMBINED COMBINED THYROID 1 PHYSICIAN PHYSICIAN STIMULATI S LA S LA NG HORMONE TSH HEMOGLOBI 56644 FAMILY MULBERRY N 1 CARE NILO GLYCOSYLA ASSOCIATE ALEX A1C S BLOOD 59615 FAMILY MULBERRY COUNT 1 CARE NILO COMPLETE ASSOCIATE AUTO&[place] [address] LAB ZOEY LAB ZOEY LIPASE 1 [employer] RADIOLOGI 85609 [place] C EXAM 1 MEDICAL CARLOS CHEST 2 IMAGING VIEWS ASS FRONTAL&L ATERAL BASIC 16820 COMBINED COMBINED METABOLIC 1 PHYSICIAN PHYSICIAN PANEL S LA S LA CALCIUM TOTAL COLLECTIO 13424 FAMILY BRENDAN J N VENOUS 1 CARE BLOOD [place] [address] ZACK DIXON STREPTOCO 0 [facility] CCUS INC INC GROUP A PRESSURIZ 77401 ZACK DIXON ED/NONPRE 0 [facility] SSURIZED INC INC INHALATIO N TREATMENT RADIOLOGI 54944 ZACK DIXON C EXAM 0 [facility] CHEST 2 INC INC VIEWS FRONTAL&L ATERAL URNLS DIP 53099 ZACK DIXON 0 [facility] STICK/TAB INC INC LET REAGENT AUTO MICROSCOP Y IAADI 88513 ZACK DIXON INFFLUENZ 0 [facility] A A VIRUS INC INC IAADI 20354 ZACK DIXON INFLUENZA 0 [facility] [place] [address] COMBINED COMBINED THYROID 0 PHYSICIAN PHYSICIAN STIMULATI S LA S LA NG HORMONE TSH COMPREHEN 01669 COMBINED COMBINED SIVE 0 PHYSICIAN PHYSICIAN METABOLIC S LA S LA PANEL COLLECTIO 29216 FAMILY FAMILY N VENOUS 0 CARE CARE BLOOD ASSOCIATE ASSOCIATE VENIPUNCT S S URE FUNDUS 66367 PETERS LANNY PETERS LANNY PHOTOGRAP 0 HY W/INTERPR ETATION & REPORT OPHTH 66053 L[facility] MEDICAL 0 XM&EVAL COMPRHNSV ESTAB PT 1/> FOR DIAB A5513 WELLNESS WELLNESS ONLY MX 0 LIFE LIFE DNSITY SYSTEMS [employer] CSTM MOLD CSTM EA DIAB ONLY A5500 WELLNESS WELLNESS FIT CSTM 0 LIFE LIFE PREP&SPL SYSTEMS SYSTEMS SHOE [employer] LLC DNSITY INSRT RADIOLOGI 16216 [place] SHERI C 0 MEDICAL MELIDA EXAMINATI IMAGING ON ANKLE ASS 2 VIEWS WALKING L4360 [employer] 0 TECHNOLOG TECHNOLOG PNEUMATC IES INC IES INC &/ VACUUM PREFAB CUSTM FIT RADIOLOGI 00862 [place] SHERI C 0 MEDICAL MELIDA EXAMINATI IMAGING ON ANKLE ASS 2 VIEWS RADIOLOGI 50968 ZACK DIXON C 0 [facility] EXAMINATI INC INC ON FOOT 2 VIEWS RADEX 02668 [place] SHERI FOOT 0 MEDICAL MELIDA COMPLETE IMAGING MINIMUM 3 ASS VIEWS RADEX 40815 [place] [facility]I FOOT 0 MEDICAL MELIDA COMPLETE IMAGING MINIMUM 3 ASS VIEWS RADEX 21432 [place] [facility]ERI CALCANEUS 0 MEDICAL MELIDA MINIMUM IMAGING 2 [place] [address] [facility] PETTEY 0 PHYSICIAN JAM CALCANEAL S GROUP FRACTURE W/O MANIPULAT ION RADIOLOGI 57342 [place] SHERI C 0 MEDICAL MELIDA EXAMINATI IMAGING ON PELVIS ASS 1/2 VIEWS RADIOLOGI 01895 [place] SHERI C 0 MEDICAL MELIDA EXAMINATI IMAGING ON TIBIA ASS & FIBULA 2 [place] [address] [facility] 0 EMERGENCY CHIDI CALCANEAL SERVICES FRACTURE W/O MANIPULAT ION GROUND A0425 [facility] MILEAGE 0 AMBULANCE AMBULANCE PER SERVICE SERVICE STATUTE MILE AMBULANCE A0429 [facility] SERVICE 0 AMBULANCE AMBULANCE BLS SERVICE SERVICE EMERGENCY TRANSPORT GLUCOSE 87756 FAMILY MULBERRY POST 0 CARE NILO GLUCOSE ASSOCIATE DOSE S BLOOD 45759 FAMILY MULBERRY COUNT 0 CARE NILO COMPLETE ASSOCIATE AUTO&AUTO S DIFRNTL WBC COLLECTIO 67770 FAMILY MULBERRY N VENOUS 0 CARE NILO BLOOD ASSOCIATE VENIPUNCT S URE 25 31143 LAB ZOEY LAB ZOEY HYDROXY 0 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 IF PERFORMED HEMOGLOBI 89969 FAMILY MULBERRY N 0 CARE NILO GLYCOSYLA ASSOCIATE ALEX A1C S PPSV23 67195 FAMILY FAMILY VACCINE 2 0 CARE CARE YRS OR ASSOCIATE ASSOCIATE OLDER FOR S S SUBQ/IM USE ADMINISTR G0009 FAMILY MULBERRY ATION OF 0 CARE NILO PNEUMOCOC ASSOCIATE JORDYN S VACCINE LIPID 58925 COMBINED COMBINED PANEL 0 PHYSICIAN PHYSICIAN S LAB S LAB COMPREHEN 03777 COMBINED COMBINED SIVE 0 PHYSICIAN PHYSICIAN [place]AB[place] [address] COMBINED COMBINED IRON 0 PHYSICIAN [place] [address] COMBINED COMBINED FOLIC 0 PHYSICIAN PHYSICIAN [place] [address] COMBINED COMBINED FERRITIN 0 PHYSICIAN PHYSICIAN S LAB S LAB CYANOCOBA 28511 COMBINED COMBINED SOHA 0 PHYSICIAN PHYSICIAN VITAMIN S LAB S LAB B-12 BLOOD 88756 FAMILY MULBERRY, COUNT 0 CARE CLEO T COMPLETE ASSOCIATE AUTO&AUTO S DIFRNTL WBC COLLECTIO 54940 FAMILY MULBERRY, N VENOUS 0 CARE CLEO T BLOOD ASSOCIATE VENIPUNCT S URE HEMOGLOBI 63702 FAMILY MULBERRY, N 0 CARE CLEO T GLYCOSYLA ASSOCIATE ALEX A1C S BASIC 11145 COMBINED COMBINED METABOLIC 0 PHYSICIAN PHYSICIAN PANEL S LAB S LAB CALCIUM TOTAL COLLECTIO 82649 FAMILY MULBERRY, N VENOUS 0 CARE CLEO T BLOOD ASSOCIATE VENIPUNCT S URE BLOOD 04432 FAMILY MULBERRY, COUNT 0 CARE CLEO T COMPLETE ASSOCIATE AUTO&AUTO S DIFRNTL WBC LANCETS A4259 REID MATHEWS PER BOX 0 HOME MED HOME MED OF 100 [employer] [facility] BLD GLU A4253 REID MATHWES TEST/REAG 0 HOME MED HOME MED T STRIPS EQUIP. EQUIP. HOME BLD [facility] GLU MON-50 HOSPITAL 71631 [facility] DISCHARGE 0 CARE CLEO T DAY ASSOCIATE MANAGEMEN S T > 30 MIN RADIOLOGI 16020 [facility] John EPPS EXAM 0 MEDICAL XAVI Mcdonald CHEST 2 IMAGING VIEWS ASSOCIATE FRONTAL&L S ATERAL SBSQ 28442 [facility] 0 CARE CLEO T CARE/DAY ASSOCIATE 25 S MINUTES ECG 87593 ZACK BARRETO, ROUTINE 0 [facility] W/LEAST PROF SERV 12 LDS I&R ONLY ECHO 77304 [facility] FALLUJI, TTHRC R-T 0 PHYSICIAN MINNA Gardiner S GROUP W/WOM-MOD E COMPL SPEC&[place] [address] [facility] BRIANSHERI, PART VNTJ 0 MEDICAL RAYMUNDO IMG IMAGING AERSL ASSOCIATE 1/TRIAL MGR S PRJCJ RADIOLOGI 20903 [facility] [place] EXAM 0 MEDICAL RAYMUNDO CHEST 2 IMAGING VIEWS ASSOCIATE FRONTAL&L S ATERAL INTRO 08663 EMEKA WILCOX, NEEDLE/IN 0 EMERGENCY [facility] TRACAT SERVICES EXTREMITY ARTERY ASSOCIATE S INITIAL 30660 [facility] 0 CARE CLEO T CARE/DAY ASSOCIATE 50 S MINUTES GROUND A0425 [facility] MILEAGE 0 AMBULANCE AMBULANCE PER SERVICE SERVICE STATUTE MILE AMB A0427 [facility] SERVICE 0 AMBULANCE AMBULANCE ALS SERVICE SERVICE EMERGENCY TRANSPORT LEVEL 1 IAADIADOO 74391 [facility], 0 CARE CLEO T STREPTOCO ASSOCIATE CCUS S GROUP A ORTHOPANT 94924 [facility] SHERI, OGRAM 0 MEDICAL RAYMUNDO IMAGING ASSOCIATE S RENAL 95251 ZACK DIXON FUNCTION 0 [facility] PANEL INC INC COLLECTIO 95086 ZACK DIXON N VENOUS 0 [facility] BLOOD INC INC VENIPUNCT URE LANCETS A4259 DIABETES DIABETES PER BOX 0 [facility] OF 100 [facility] BLD GLU A4253 DIABETES DIABETES TEST/REAG 0 C[facility] CARE CLUB T STRIPS [facility] HOME BLD GLU MON-50 NORMAL A4256 DIABETES DIABETES LOW AND 0 CARE CLUB CARE CLUB [facility]IGH [facility] CALIBRATO R SOLUTION/ CHIPS RENAL 56776 ZACK DIXON FUNCTION 9 [facility] PANEL INC INC COLLECTIO 92686 ZACK DIXON N VENOUS 9 [facility] BLOOD INC INC VENIPUNCT URE ELECTRIC E0215 DIABETES DIABETES HEAT PAD 9 CARE CLUB CARE [facility] NORMAL A4256 DIABETES DIABETES LOW AND 9 CARE CLUB CARE CLUB HIGH [facility] CALIBRATO R SOLUTION/ CHIPS BLD GLU A4253 DIABETES DIABETES TEST/REAG 9 CARE CLUB CARE CLUB T STRIPS [facility] HOME BLD GLU LANCETS A4259 DIABETES DIABETES PER BOX 9 CARE CLUB CARE CLUB OF [address] [place] [address] ZACK ELLIOTTON RETROPERI 9 [facility] TONEAL INC INC REAL TIME W/IMAGE COMPLETE SUSCEPTIB 31502 ZACK DIXON LTY STDY 9 [facility] ANTIMICRB INC INC IAL MICRO/AGA R DILUTJ COLLECTIO 60025 ZACK DIXON N VENOUS 9 [facility] BLOOD INC INC VENIPUNCT URE RENAL 99469 ZACK DIXON FUNCTION 9 [facility] PANEL INC INC URNLS DIP 77263 ZACK DIXON 9 [facility] STICK/TAB INC INC LET REAGENT AUTO MICROSCOP Y COMPLEMEN 05727 ZACK DIXON T 9 [facility] FUNCTIONA INC [place] [address] ZACK DIXON BLOOD/URI 9 [facility] C ACID INC INC ANTINUCLE 23881 ZACK DIXON AR 9 [facility] ANTIBODIE INC INC S YUNG CULTURE 67884 ZACK DIXON BACTERIAL 9 [facility] INC INC QUANTTATI VE COLONY COUNT URINE CULTURE 27904 ZACK DIXON BCT 9 [facility] ISOL&PRSM INC INC PTV ID ISOLATE EA URINE ANTISTREP 39251 ZACK DIXON TOLYSIN O 9 [facility] SCREEN INC INC COLLECTIO 15273 ZACK DIXON N VENOUS 9 [facility] BLOOD INC INC VENIPUNCT URE BASIC 10644 ZACK DIXON METABOLIC 9 [facility] PANEL INC INC CALCIUM TOTAL COLLECTIO 48660 ZACK DIXON N VENOUS 9 [facility] BLOOD INC INC VENIPUNCT URE COMPREHEN 04113 ZACK DIXON SIVE 9 [facility] [address] ZACK DIXON THYROID 9 [facility] STIMULATI INC INC NG HORMONE TSH BLOOD 15168 ZACK DIXON COUNT 9 [facility] MEM [...] 9 CARE CLUB CARE CLUB MED NECES [facility] LIBERTY BG MON OWN PT EA SPRING-PO A4258 DIABETES DIABETES WERED 9 CARE CLUB CARE CLUB DEVICE [facility] FOR LANCET EACH OPHTH 97708 PETERS, PETERS, MEDICAL 9 GEE A GEE A XM&EVAL COMPRHNSV ESTAB PT 1/> ALBUMIN 72701 FAMILY MULBERRY, URINE 9 CARE CLEO T MICROALBU ASSOCIATE MIN S SEMIQUANT ITATIVE CREATININ 81363 FAMILY MULBERRY, E OTHER 9 CARE CLEO T SOURCE ASSOCIATE S COLLECTIO 98859 FAMILY MULBERRY, N VENOUS 9 CARE CLEO T BLOOD ASSOCIATE VENIPUNCT S URE HEMOGLOBI 48704 COMBINED COMBINED N 9 PHYSICIAN PHYSICIAN GLYCOSYLA [...] AND 8 CARE CLUB CARE CLUB HIGH [facility] CALIBRATO R SOLUTION/ CHIPS BLD GLU A4253 DIABETES DIABETES TEST/REAG 8 CARE CLUB CARE CLUB T STRIPS [facility] HOME BLD GLU MON-50 MANUAL 16022 PROFESSIO CROSSFIEL THERAPY 8 NAL REHAB D, TQS 1/> ASSOC DANNITA REGIONS PSC EACH 15 MINUTES THERAPEUT 22169 PROFESSIO CROSSFIEL ACTVITY 8 NAL REHAB D, DIRECT PT ASSOC DANNITA CONTACT PSC EACH 15 MIN THERAPEUT 89170 PROFESSIO CROSSFIEL IC PX 1/> 8 NAL REHAB D, AREAS ASSOC DANNITA EACH 15 PSC MIN EXERCISES CANE E0105 REID MATHEWS QUAD/3-MD 8 HOME MED HOME MED GABINO ALL EQUIP. EQUIP. MATL [facility] ADJUSTBL/ FIX W/TIPS PHYSICAL 17534 PROFESSIO CROSSFIEL THERAPY 8 NAL REHAB D, EVALUATIO ASSOC DANNITA N PSC MANUAL 11945 PROFESSIO CROSSFIEL THERAPY 8 NAL REHAB D, TQS 1/> ASSOC DANNITA REGIONS PSC EACH 15 MINUTES THERAPEUT 34494 PROFESSIO CROSSFIEL IC PX 1/> 8 NAL REHAB D, AREAS ASSOC DANNITA EACH 15 PSC MIN EXERCISES RADEX HIP 95111 ZACK DIXON 8 [facility] INC L COMPLETE MINIMUM 2 VIEWS RADEX 67803 [place], SPINE 8 MEDICAL XAVI P LUMBOSACR IMAGING AL ASSOCIATE MINIMUM 4 S VIEWS Encounters Encounter Start End Date Code Location Performer Type Date EMERGENCY 95162 RUDY JOINER DEPT 7 7 PHYSICIAN VISIT S, [facility] HIGH SEVERITY& THREAT [facility] ZACK Oquendo 7 7 [facility] INPATIENT [facility] ZACK Oquendo 6 6 [facility] OUTPATIEN [facility] T OFFICE 53086 CAMERON GORDILLO OUTPATIEN 6 6 MEDICAL T VISIT SERV 25 FOUNDATIO MINUTES [facility] ZAKC - 6 6 [facility] OUTPATIEN INC T EMERGENCY 14046 ZACK DEPT 6 6 [facility] VISIT INC HIGH SEVERITY& [facility] 6 6 [facility] INC OFFICE [address]33 [place] OUTPATIEN 6 6 MEDICAL T VISIT SERV 25 FOUNDATIO MINUTES [facility] ZACK - OTHER 6 6 [facility] INC OFFICE 46893 [place] OUTPATIEN 6 6 [facility] T VISIT INTERNAL 15 MEDI MINUTES EMERGENCY 03346 ZACK 6 6 [facility] DEPARTMEN INC T VISIT HIGH/URGE NT SEVERITY EMERGENCY 65368 RUDY C[facility] 6 6 PHYSICIAN VISIT S, [facility] HIGH SEVERITY& THREAT [facility] ZACK - 6 6 [facility] OUTPATIEN INC T OFFICE 96494 [place] [facility] OUTPATIEN 6 6 [facility] T VISIT INTERNAL 15 MED MINUTES HOSPITAL ZACK - 6 6 [facility] OUTPATIEN INC T EMERGENCY 84795 RUDY WILCOX 6 6 PHYSICIAN CHIDI DEPARTMEN S, [facility] T VISIT HIGH/URGE NT SEVERITY EMERGENCY 45419 ZACK 6 6 [facility] DEPARTMEN INC T VISIT MODERATE SEVERITY [facility] INPATIENT 6 6 [facility] INPATIENT 6 6 [facility] EMERGENCY 23696 ZACK 5 5 [facility] DEPARTMEN INC T VISIT LOW/MODER SEVERITY HOSPITAL ZACK - 5 5 [facility] OUTPATIEN INC T [facility] INPATIENT 5 5 [facility] INPATIENT 5 5 [facility] ZACK - 5 5 [facility] INPATIENT INC OFFICE 98962 ZACK CALDERON OUTPATIEN 5 5 [facility] T VISIT 5 HOSPITAL MINUTES P HOSPITAL ZACK - 5 5 [facility] OUTPATIEN INC T EMERGENCY 99018 ZACK 5 5 [facility] DEPARTMEN INC T VISIT LIMITED/M INOR PROB OFFICE 74657 ZACK CALDERON OUTPATIEN 5 5 [facility] T VISIT HOSPITAL 10 P MINUTES OFFICE 89938 CAMERON GORDILLO OUTPATIEN 5 5 MEDICAL T VISIT SERV 25 FOUNDATIO MINUTES [facility] ZACK - 5 5 [facility] OUTPATIEN INC HOSPITAL ZACK - 5 5 [facility] OUTPATIEN INC T OFFICE 62317 [place] OUTPATIEN 5 5 [facility] INTERNAL 25 MEDI MINUTES OFFICE 38827 ZACK CALDERON OUTPATIEN 5 5 [facility] H[facility]PITAL 15 P MINUTES HOSPITAL ZACK - 5 5 [facility] OUTPATIEN [facility] H[facility]PITAL ZACK - OTHER 5 5 MEM [facility] INC OFFICE 98841 ZACK CALDERON [facility]PATIEN 5 5 [facility] T [facility] 10 P MINUTES [facility] INPATIENT 5 5 [facility] OFFICE 76285 CAMERON GORDILLO OUTPATIEN 5 5 MEDICAL T VISIT SERV 25 FOUNDATIO MINUTES N [facility] INPATIENT 5 5 [facility] INPATIENT 5 5 [facility] INPATIENT 5 5 [facility] ZACK - 5 5 [facility] INPATIENT INC EMERGENCY 01420 ZACK Dawn 5 5 [facility] EM[facility]ENC[facility] T VISIT P LOW/MODER SEVERITY HOSPITAL ZACK - 5 5 [facility] OUTPATIEN [facility] ZACK - 5 5 [facility] OUTPATIEN [facility] T OFFICE 16680 [place] ERIBERTO GORDILLO OUTPATIEN 4 4 MEDICAL T VISIT SERV 25 FOUNDATIO MINUTES [facility] ZACK - 4 4 [facility] OUTPATIEN [facility] HOSPITAL ZACK - 4 4 [facility] EMERGENCY 16053 ZACK 4 4 [facility] T VISIT MODERATE SEVERITY EMERGENCY 60006 [facility] DEPT 4 4 ERIC IMT VISIT EMERGENCY HIGH PHYS SEVERITY& THREAT [facility] ZACK - OTHER 4 4 [facility] ZACK - 4 4 [facility] T OFFICE [address] [place] ERI[place]ERT[place] OUTDICKSONEN 4 4 MEDICAL T VISIT SERV 25 FOUNDATIO [facility] ZACK [facility] OTHER 4 4 [facility] ZACK - 4 4 [facility] OFFICE 20470 CAMERON GORDILLO OUTPATIEN 3 3 MEDICAL T VISIT SERV 25 FOUNDATIO MINUTES OFFICE 37658 [facility] PETTEAg OUTONESIMO 3 3 PHYSICIAN JAM T VISIT S GROUP 15 [facility] ZACK - 3 3 [facility] Emergency RIP Shin (ER) 3 08:47 3 09:14 [facility] [place] ESherie EMERGENCY 41265 EMEKA SHIN 3 3 EMERGENCY III [facility] T VISIT HIGH/URGE NT SEVERITY EMERGENCY [id number] [facility] 3 3 [facility] VISIT LIMITED/M INOR [facility] ZACK - 3 3 [facility] OUTPATIEN [facility] Emergency RIP Shields MD (ER) 3 07:59 3 14:[address] [facility] EMERGENCY 99089 EMEKA LIRA DEPT 3 3 EMERGENCY VISIT SERVICES HIGH SEVERITY& THREAT [facility] ZACK - 3 3 [facility] OUTPATIEN [facility] EMERGENCY 99865 ZACK 3 3 [facility] VISIT [facility]IGH/URGE NT SEVERITY [facility] ZACK - 3 3 [facility] OUTPATIEN [facility] ZACK [facility] 3 3 [facility] OUTPATIEN [facility] OFFICE 55276 CAMERON GORDILLO OUTPATIEN 3 3 MEDICAL T [facility]ISIT SERV [facility] 3 [facility] OUTPATIEN [facility] ZACK [facility] 3 3 [facility] OUTPATIEN [facility] ZACK - 3 3 [facility] OUTPATIEN [facility] ZACK [facility] 3 3 [facility] OUTPATIEN [facility] ZACK [facility] 3 3 [facility] OUTPATIEN [facility] ZACK - 2 2 [facility] OUT[facility]EN [facility] EMERGENCY 74763 EMEKA CASTELLANO DEPT 2 2 EMERGENCY VISIT SERVICES HIGH SEVERITY& THREAT [facility] ZACK - 2 2 [facility] OUTPATIEN [facility] ZACK - 2 2 [facility] OFFICE 22816 CAMERON GORDILLO OUTPATIMICA 2 2 [facility] T V[facility] ZACK [facility] 2 2 [facility] OFFICE 26005 CAMERON GORDILLO OUTPATIEN 2 2 MEDICAL T VISIT SERV 15 FOUNDATIO MINUTES [facility] ZACK - 2 2 [facility] OUTPATIEN [facility] ZACK [facility] 2 2 [facility] OUTPATIEN [facility] HOSPITAL ZACK - 2 2 [facility]EN [facility] T EMERGENCY 57007 EMEKA SHIN DEPT 2 2 EMERGENCY III NANCY VISIT SERVICES HIGH SEVERITY& THREAT FUNJ EMERGENCY 73306 ZACK 2 [address] [facility] T VISIT HIGH/URGE NT SEVERITY HOSPITAL ZACK - 2 2 [facility] OUTPATIEN [facility] EMERGENCY 72900 EMEKA WILCOX DEPT 2 2 EMERGENCY [facility]I VISIT SERVICES HIGH SEVERITY& THREAT FUN EMERGENCY 36413 ZACK 2 2 [facility] DEPARTMEN [facility] T VISIT HIGH/URGE NT SEVERITY HOSPITAL ZACK - 2 2 [facility] OUTPATIEN [facility] ZACK - 2 2 [facility] INPATIENT INC OFFICE 73909 [facility] OUTPATIEN 2 2 CARE CRI T VISIT ASSOCIATE 25 S, PSC MINUTES OFFICE [id number] FAMILY STRAWZELL OUTPATIEN 2 2 CARE CRI T VISIT ASSOCIATE 15 S, PSC MINUTES EMERGENCY [id number] ZACK 2 2 [facility] DEPART[facility] T VISIT LOW/MODER SEVERITY [facility]OSPITAL ZACK - 2 2 [facility] OUTPATIEN [facility] T EMERGENCY 96825 EMEKA SHIN 2 2 EMERGENCY III NANCY DEPARTMEN SERVICES T VISIT HIGH/URGE NT SEVERITY OFFICE 23272 [place] [facility] [facility] OUTPATIEN 2 2 MEDICAL T VISIT SERV 25 [facility] ZACK - 2 2 [facility] OUT[facility]IEN INC T OFFICE 51966 PAWS[facility] PAWSAT OUTPATIEN 2 2 Aug T NEW 30 MINUTES HOSPITAL ZACK - 1 1 [facility] [place] T OFFICE 49947 [place] [facility] [facility] OUTPATIEN 1 1 MEDICAL T VISIT SERV 25 [facility] ZACK - 1 1 [facility]EN [facility] ZACK - 1 1 [facility] OUTPATIEN INC EMERGENCY 44065 ZACK 1 1 [facility] DEPARTMEN INC T VISIT MODERATE SEVERITY HOSPITAL ZACK - 1 1 [facility]EN [facility] ZACK - 1 1 [facility] OUTPATIEN [facility] ZACK - 1 1 [facility] T OFFICE 13726 [place] OUTPATIEN 1 1 [place] T NEW 45 CLINIC MINUTES [facility] ZACK - 1 1 [facility]PATIEN [facility] ZACK - 1 1 [facility] T OFFICE 03654 [place] [facility] OUTPATIEN 1 1 MEDICAL T NEW 60 SERV MINUTES [facility] ZACK - 1 1 [facility] OUTPATIEN INC T OFFICE 20301 FAMILY JADA OUTPATIEN 1 1 CARE NILO T VISIT ASSOCIATE 40 S MINUTES EMERGENCY 77436 EMEKA WU 1 1 [facility] VISIT MODERATE SEVERITY EMERGENCY 89523 ZACK 1 1 [facility] DEPARTMEN INC T VISIT LOW/MODER SEVERITY [facility]OSPITAL ZACK - 1 1 [facility] OUTPATIEN INC T OFFICE 39706 FAMILY JADA OUTPATIEN 1 1 CARE NILO T VISIT ASSOCIATE 25 S MINUTES OFFICE 54355 ANKUSH LECHUGA JR OUTPATIEN 1 1 [place] ELAINE T VISIT 15 MINUTES [facility] - 1 1 [facility] INC T OFFICE 00721 ANKUSH LECHUGA JR OUTPATIEN 1 1 ELAINE ELAINE T NEW 45 MINUTES [facility]ITAL ZACK - 1 1 [facility] T [facility] ZACK - 1 1 [facility] OUT[facility]IEN INC T OFFICE 07753 FAMILY JADA OUTPATIEN 1 1 CARE NILO T VISIT ASSOCIATE 25 S MINUTES EMERGENCY 37871 EMEKA CASTELLANO 1 1 EMERGENCY DEPARTMEN SERVICES T VISIT HIGH/URGE NT SEVERITY [facility]OSPITAL Z[facility] - 1 1 [facility] OUT[facility]IEN INC T EMERGENCY 01863 ZACK 1 1 [facility] DEPARTMEN INC T VISIT LOW/MODER SEVERITY OFFICE 66439 FAMILY BRENDAN Estrella OUTPATIEN 1 1 CARE T VISIT ASSOCIATE 15 S MINUTES [facility]OSPITAL ZACK - 0 0 [facility] INC T EMERGENCY 96447 ZACK 0 0 [facility] DEPARTMEN INC T VISIT LOW/MODER SEVERITY EMERGENCY 06525 EMEKA WILCOX 0 0 EMERGENCY [facility] DEPARTMEN SERVICES T VISIT HIGH/URGE NT SEVERITY OFFICE 25695 FAMILY BRENDAN J OUTPATIEN 0 0 CARE T VISIT ASSOCIATE 15 S MINUTES OFFICE 35998 FAMILY BRENDAN J OUTPATIEN 0 0 CARE T VISIT ASSOCIATE 15 S MINUTES HOSPITAL ZACK - 0 0 [facility]IEN INC T OFFICE 68434 FAMILY MULBERRY OUTPATIEN 0 0 CARE NILO T VISIT ASSOCIATE 25 S MINUTES HOSPITAL ZACK - 0 0 [facility] OUTPATIEN INC T [facility]PITAL ZACK - 0 0 [facility] OUTPATIEN INC T OFFICE 25701 [facility] PETTE OUTPATIEN 0 0 PHYSICIAN JAM T NEW 45 S GROUP MINUTES EMERGENCY 15138 EMEKA WILCOX 0 0 EMERGENCY [facility] DEPARTMEN SERVICES T VISIT HIGH/URGE NT SEVERITY [facility]OSPITAL ZACK - 0 0 [facility] OUTPATIEN INC T EMERGENCY 34613 ZACK 0 0 [facility] DEPARTMEN INC T VISIT MODERATE SEVERITY OFFICE 49860 FAMILY MULBERRY OUTPATIEN 0 0 CARE NILO T VISIT ASSOCIATE 25 S MINUTES OFFICE 87233 FAMILY MULBERRY, OUTPATIEN 0 0 CARE CLEO T T VISIT ASSOCIATE 15 S MINUTES OFFICE 60845 FAMILY MULBERRY, OUTPATIEN 0 0 CARE CLEO T T VISIT ASSOCIATE 25 S MINUTES OFFICE 13981 FAMILY MULBERRY, OUTPATIEN 0 0 CARE CLEO T T VISIT ASSOCIATE 15 S MINUTES OFFICE 16760 FAMILY MULBERRY, OUTPATIEN 0 0 CARE CLEO T T VISIT ASSOCIATE 25 S MINUTES HOSPITAL ZACK - 0 0 [facility] INPATIENT INC EMERGENCY 86589 EMEKA WILCOX, DEPT 0 0 EMERGENCY TAYA S VISIT SERVICES HIGH SEVERITY& ASSOCIATE THREAT S FUNCJ OFFICE 45266 FAMILY MULBERRY, OUTPATIEN 0 0 CARE CLEO T T VISIT ASSOCIATE 15 S MINUTES HOSPITAL ZACK - 0 0 [facility] OUTPATIEN INC T EMERGENCY 15481 ZACK 0 0 [facility] DEPARTMEN INC T VISIT LOW/MODER SEVERITY [facility]OSPITAL ZACK - 0 0 [facility] OUTPATIEN INC T OFFICE 15285 MEANS BUTROS, OUTPATIEN 9 9 ADULT [place] T VISIT PRIMARY 15 CARE [facility] ZACK - 9 9 [facility] OUTPATIEN INC T OFFICE 80528 MEANS BUTROS, OUTPATIEN 9 9 ADULT [place] T VISIT PRIMARY 25 CARE [facility] ZACK - 9 9 [facility] OUTPATIEN INC T OFFICE 78307 MEANS BUTROS, CONSULTAT 9 9 ADULT REVANESAA ION PRIMARY [facility] 80 MIN [facility] ZACK - 9 9 [facility] OUTPATIEN INC T OFFICE 51176 FAMILY JADA OUTPATIEN 9 9 CARE CLEO T T VISIT ASSOCIATE 15 S MINUTES [facility] ZACK - 9 9 [facility] OUTPATIEN INC T OFFICE 53535 FAMILY LOGANBERRY, OUTPATIEN 9 9 CARE CLEO T T VISIT ASSOCIATE 25 S MINUTES OFFICE 15247 FAMILY JADA OUTPATIEN 9 9 CARE CLEO T T VISIT ASSOCIATE 25 S MINUTES OFFICE 82524 FAMILY TERRENCE OUTPATIEN 8 8 CARE R PADMINI T VISIT ASSOCIATE 25 S MINUTES HOSPITAL ZACK - 8 8 [facility] OUT[facility]IEN INC T OFFICE 76676 Sameer MARCOS OUTPATIEN 8 8 CARE G T VISIT ASSOCIATE 15 S MINUTES [facility]OSPITAL ZACK - 8 8 [facility] OUTPATIEN INC T EMERGENCY 05680 ZACK 8 8 [facility] DEPARTMEN INC T VISIT LOW/MODER SEVERITY EMERGENCY 68754 ZACK 8 8 [facility] DEPARTMEN INC T VISIT LIMITED/M INOR PROB [facility] ZACK - 8 8 [facility] OUTPATIEN INC T
--- OUTSIDE RECORDS SUMMARY | 2016-10-19 17:41 | External Medical Summary Rpt ---
Author Author , Organization [employer] Address Unknown Phone Unavailable Care Team Providers Care Manager Visual Name Role Phone CALDERON VALENTINE, CALDERON Unavailable [...] TRACY RODRIGUEZ ALL, RODRIGUEZ ALL Unavailable Unavailable [facility] Unavailable Unavailable SERVICE, [facility] Unavailable Unavailable SERVICE, [facility] BUTROS, REZKALLA, Unavailable Unavailable BUTROS, REZKALLA [facility] Unavailable Unavailable CONSULTANTS O, [facility] CONS[facility] O [facility] Unavailable Unavailable CAMPUS, [facility] Unavailable Unavailable CAMPUS, [facility] Unavailable Unavailable [place], [facility] [...] S MARISOL ANDREZ, Unavailable Unavailable MARISOL ANDREZ [facility] Unavailable Unavailable INC, [facility] Unavailable Unavailable HOSPITAL P, [facility] P PETERS LANNY, PETERS LANNY Unavailable Unavailable PETERS LANNY, PETERS LANNY Unavailable Unavailable PETERS, GEE A, Unavailable Unavailable PETERS, GEE A [facility], Unavailable Unavailable [facility] JOINER, JOINER Unavailable Unavailable KLARISSA IMT, KLARISSA Unavailable Unavailable IMT [facility] Unavailable Unavailable [facility], [facility] KOTTER JUAN J, KOTTER [...] [place] Unavailable Unavailable INTER[facility] MED, [facility] [place] Unavailable Unavailable [facility]I, [facility] Unavailable Unavailable SERVICES, [facility] MCKEMIE JR NANCY, Unavailable Unavailable MCKEMIE JR NANCY MICH CARLOS, MICH Unavailable Unavailable CARLOS XAVI EPPS P, Unavailable Unavailable [facility] EP[facility] P MULBERRY NILO, Unavailable Unavailable MULBERRY NILO MULBERRY, CLEO T, Unavailable Unavailable MULBERRY, CLEO T CROWELL SON, CROWELL SON Unavailable Unavailable [facility] Unavailable Unavailable [facility], [facility] Clemente OCAMPO, Unavailable Unavailable [...] Unavailable Unavailable EQUIPME, [facility] Unavailable Unavailable EQUIPME, [facility] Un[facility], [facility] Unavailable Unavailable CLINIC, [facility] STRAWZELL CRI, Unavailable Unavailable STRAWZELL CRI [facility], Unavailable Unavailable [facility], Unavailable Unavailable [facility] WEI RAND, WEI RAND Unavailable Unavailable WEHRMAN III NANCY, Unavailable Unavailable WEHRMAN III NANCY [facility] Unavailable Unavailable LLC, [facility] ELSA LIRA, ELSA LIRA Unavailable Unavailable Purpose Continuity of Care Document - 11-11-2007 through 2016 Problems Code Diagnosis DOS Provider Status E109 TYPE 1 09-14-2016 [facility] MELLITUS GROUP WITHOUT COMPLICATIO NS I213 ST 09-14-2016 [facility] ELEVATION PHYSICIANS MYOCARDIAL GROUP INFARCTION UNS SITE I739 PERIPHERAL 09-14-2016 [facility] VASCULAR PHYSIC[facility]ANS DISEASE GROUP UNSPECIFIED N183 CHRONIC 09-14-2016 [facility] KIDNEY PHYSIC[facility] DISEASE GROUP STAGE 3 MODERATE E1142 TYPE 2 09-13-2016 [facility] W/DIAB POLYNEUROPA THY I119 HYPERTENSIV 09-13-2016 [facility] HE[facility]YS[facility], DISEASE PLLC WITHOUT HEART FAILURE I129 HYPERTENSIV 09-13-2016 [facility] CKD [facility] W/STAGE 1-4 INC CKD OR UNS CKD L56144 ASHD RESIGHINI 09-13-2016 [facility] COR ART [facility] W/UNSTABLE INC ANGINA PECTORIS I5043 ACUTE ON 09-13-2016 [facility] P SYSTOLIC & DIASTOLIC CHF I773 ARTERIAL 09-13-2016 [facility] FIBROMUSCUL [facility] AR INC DYSPLASIA R0602 SHORTNESS 09-13-2016 [facility] OF BREATH PHYSICIANS GROUP R0689 OTHER 09-13-2016 [facility] AMBULANCE ES OF SERVICE BREATHING Z794 LONG-TERM 09-13-2016 [facility] CURRENT USE [facility] OF INSULIN INC E039 HYPOTHYROID 06-09-2016 [facility] ISM [facility] UNSPECIFIED INC E118 TYPE 2 06-09-2016 [facility] DIABETES [facility] MELLITUS INC W/UNS COMPLICATIO NS E119 TYPE 2 03-21-2016 [facility] SERV MELLITUS FOUNDATION WITHOUT COMPLICATIO NS M810 AGE-RELATED 03-21-2016 [facility] SERV OSTEOPOROSI FOUNDATION S W/O CURRNT PATH FX N184 CHRONIC 03-21-2016 [facility] KIDNEY SERV DISEASE FOUNDATION STAGE 4 SEVERE N250 RENAL 03-21-2016 [place] [facility] OSTEODYSTRO SERV PHY FOUNDATION N390 URINARY 03-18-2016 [facility]ANS INFECTION LA SITE NOT SPECIFIED D21830 TYPE 2 02-28-2016 [facility] DIABETES [facility] MELLITUS [facility] P W/HYPOGLYCE VICTORIANO W/O COMA E162 HYPOGLYCEMI 02-28-2016 [facility] A PHYSICIANS, UNSPECIFIED PLLC E876 HYPOKALEMIA 02-28-2016 [facility] INC I10 ESSENTIAL 02-28-2016 [facility] HYPERTENSIO [facility] P N I5032 CHRONIC 02-28-2016 [facility] HEART FAILURE R410 DISORIENTAT 02-28-2016 [facility] I[facility]ANCE UNSPECIFIED SERVICE Z591 INADEQUATE 02-28-2016 [facility] INC [id number] OTHER LONG 02-28-2016 [facility] TERM [facility] CURRENT INC DRUG THERAPY G4733 OBSTRUCTIVE 02-15-2016 [facility] SLEEP HOME APNEA ADULT MEDICAL PEDIATRIC EQUIPME [id number] MX FX 02-15-2016 [facility] PELVIS STBL HOME DISRUPT MEDICAL PELV RING EQUIPME INIT CHANDRIKA FX I8310 VARICOSE 09-17-2015 [facility] UNS VALLEY LOWER INTERNAL EXTREM MEDI W/INFLAMMAT ION M129 ARTHROPATHY 09-17-2015 [place] [place] UNSPECIFIED INTERNAL MEDI Z9111 PATIENTS 09-07-2015 [facility] NONCOMPLIAN VALLEY CE WITH INTERNAL DIETARY MEDI REGIMEN N189 CHRONIC 09-05-2015 [facility] KIDNEY PHYSICIANS, DISEASE PLLC UNSPECIFIED R1110 VOMITING 09-05-2015 [facility] UNSPECIFIED MEDICAL IMAGING ASS R404 TRANSIENT 09-05-2015 [facility] ALTERATION MEDICAL OF IMAGING ASS AWARENESS R4182 ALTERED 09-05-2015 [facility] MENTAL PHYSICIANS, STATUS PLLC UNSPECIFIED R464 SLOWNESS 09-05-2015 [facility] RESPONSIVEN SERVICE ESS I22862 CELLULITIS 08-16-2015 [facility] OF RIGHT [place] LOWER LIMB INTERNAL MED Z47947 CELLULITIS 08-16-2015 [facility] OF LEFT VAL[place] LOWER LIMB INTERNAL MED E1021 TYPE 1 08-10-2015 [facility] DIABETES [facility] MELLITUS INC W/DIABETIC NEPHROPATHY E1065 TYPE 1 08-10-2015 [facility] DIABETES [facility] MELLITUS INC WITH HYPERGLYCEM IA E138 OTH SPEC 08-10-2015 [facility] DIABETES PHYSICIANS, MELLITUS PLLC W/UNS COMPLICATIO NS X01237 CELLULITIS 08-10-2015 [facility] OF PHYSICIANS, UNSPECIFIED PLLC PART OF LIMB R739 HYPERGLYCEM 08-10-2015 [facility] [place] [facility]ANCE UNSPECIFIED SERVICE L853 XEROSIS 08-09-2015 [place] CUTIS [place] INTERNAL MED E6601 MORBID 08-05-2015 [facility] SEVERE VALLEY OBESITY DUE INTERNAL TO EXCESS MEDI CALORIES I270 PRIMARY 07-20-2015 [facility] PULMONARY [facility] HYPERTENSIO CAMPUS N I5030 UNSPECIFIED 07-20-2015 [facility] CONGESTIVE FLOYDS KNOBS HEART FAILURE R0600 DYSPNEA 07-20-[address] [facility] M542 CERVICALGIA 07-12-2015 [facility] M546 PAIN IN 07-12-2015 [facility] THORACIC MOBILEX SPINE I509 HEART 07-11-2015 [place] FAILURE VALLEY UNSPECIFIED INTERNAL MED I8311 VARICOSE 07-11-2015 [place] RT [place] LOWER INTERNAL EXTREMITY MED W/INFLAMMAT ION M4003 POSTURAL 07-11-2015 [facility] KYPHOSIS [place] CERVICOTHOR INTERNAL ACIC REGION MED R05 COUGH 06-05-2015 [facility] R600 LOCALIZED 05-09-2015 [facility] L[facility]SULT[facility] O I348 OTHER 05-05-2015 [facility] MEDICAL NONRHEUMATI SERV C MITRAL FOUNDATION VALVE DISORDERS I361 NONRHEUMATI 05-05-2015 [facility] C TRICUSPID SERV VALVE FOUNDATION INSUFFICIEN CY I371 NONRHEUMATI 05-05-2015 [facility] C PULMONARY SERV VALVE FOUNDATION INSUFFICIEN [...] INC ADULT N3020 OTHER 04-28-2015 [facility] WITHOUT HEMATURIA J209 ACUTE 03-31-2015 [facility] BRONCHITIS [facility] UNSPECIFIED INC G50479 PERSONAL 03-31-2015 [facility] HISTORY OF [facility] NICOTINE INC DEPENDENCE A499 BACTERIAL 03-23-2015 [facility]ICAL INFECTION SERV UNSPECIFIED FOUNDATION R279 UNSPECIFIED 03-19-2015 [facility] LACK OF [facility] HOS[facility] COORDINATIO INC N Z5189 ENCOUNTER 03-19-2015 [facility] FOR OTHER [facility] SPECIFIED INC AFTERCARE 55454 DIAB W/O 03-17-2015 [facility] COMP TYPE I HOME [JUV] NOT MEDICAL STATED EQUIPME UNCNTRL 93076 OBSTRUCTIVE 03-17-2015 [facility] SLEEP HOME APNEA MEDICAL EQUIPME 98397 MULTIPLE 03-17-2015 [facility] CLOSED HOME PELVIC FX MEDICAL DISRUPT EQUIPME PELVIC MICCOSUKEE 2449 UNSPECIFIED 03-10-2015 [facility] HYPOTHYROID INC ISM 84405 DIAB W/O 03-10-2015 [facility] COMP TYPE [facility] II/UNS NOT INC STATED UNCNTRL 5854 CHRONIC 03-10-2015 [facility] KIDNEY [facility] DISEASE INC STAGE IV (SEVERE) 5990 URINARY 03-10-2015 [facility] TRACT [facility] INFECTION INC SITE NOT SPECIFIED 38473 UNSPECIFIED 03-10-2015 [facility] OSTEOPOROSI INC S 4019 UNSPECIFIED 03-02-2015 [facility] ESSENTIAL [place] HYPERTENSIO INTERNAL N MEDI 4541 VARICOSE 03-02-2015 [place] LOWER [place] INTERNAL EXTREMITIES MEDI W/INFLAMMAT ION 40487 UNSPECIFIED 03-02-2015 [place] CONSTIPATIO INTERNAL N MEDI 5939 UNSPECIFIED 03-02-2015 [place] DISORDER VALLEY OF KIDNEY INTERNAL AND URETER MEDI 7823 EDEMA 03-02-2015 [place] INTERNAL MEDI 02539 UNSPECIFIED 03-02-2015 [place] RETENTION VAL[place] OF URINE INTERNAL MEDI 84350 UNSPECIFIED 02-24-2015 [facility] ARTHROPATHY [facility] P MULTIPLE SITES 7813 LACK OF 02-24-2015 [facility] P V571 OTHER 02-24-2015 [facility] PHYSICAL [facility] THERAPY INC 5952 OTHER 02-03-2015 [facility] CYSTITIS [facility] P 2761 HYPOSMOLALI 01-17-2015 [facility] TY AND/OR HEALTH HYPONATREMI CAMPUS A 85612 LEUKOCYTOSI 01-17-2015 [facility] S HEALTH UNSPECIFIED CAMPUS 5849 ACUTE 01-17-2015 [facility] KIDNEY HEALTH FAILURE CAMPUS UNSPECIFIED 7197 DIFFICULTY 01-17-2015 [facility] IN WALKING HEALTH CAMPUS 14826 MUSCLE 01-17-2015 [facility] WEAKNESS HEALTH (GENERALIZE CAMPUS D) 0123 UNSPECIFIED 01-17-2015 [facility] DEBILITY HEALTH CAMPUS 9953 ALLERGY 01-17-2015 [facility] UNSPECIFIED HEALTH NOT CAMPUS ELSEWHERE CLASSIFIED 07665 HTN CKD UNS 12-25-2014 [place] [facility]ICAL W/CKD SERV STAGE I FOUNDATION THRU STAGE IV/UNS 515 POSTINFLAMM 12-16-2014 [facility] ATORY [facility] PULMONARY FIBROSIS V5881 FITTING AND 12-16-2014 [facility] ADJUSTMENT [facility] OF VASCULAR CATHETER 4280 CONGESTIVE 12-09-2014 [facility] HEART MOBILEX FAILURE UNSPECIFIED 4293 CARDIOMEGAL 12-09-2014 [facility] Y [facility] 1101 DERMATOPHYT 12-04-2014 [facility] OSIS OF E NAIL 09474 DIAB 12-04-2014 [facility] W/PERIPH E CIRC D/O TYPE II/UNS NOT UNCNTRL 4439 UNSPECIFIED 12-04-2014 [facility] PERIPHERAL E VASCULAR DISEASE 9172 FOOT&TOE 12-04-2014 [facility] BLISTER E WITHOUT MENTION OF INFECTION 9243 CONTUSION 12-04-2014 [facility] OF TOE E 45167 ABDOMINAL 11-03-2014 [facility] PAIN RIGHT MEDICAL UPPER IMAGING ASS QUADRANT 5533 DIAPHRAGMAT 11-01-2014 [facility] KODY W/O MEDICAL MENTION IMAGING ASS OBSTRUCTION /GANGREN 7905 OTHER 11-01-2014 [facility] NONSPECIFIC MEDICAL ABNORMAL IMAGING ASS SERUM ENZYME LEVELS 7862 COUGH 10-30-2014 [facility] V5869 LONG-TERM 10-30-2014 [facility] (CURRENT) [facility] USE OF INC OTHER MEDICATIONS 54149 UNSPECIFIED 10-28-2014 [facility] OTALGIA MEDICAL IMAGING ASS 7224 DEGENERATIO 10-28-2014 [facility] N OF MEDICAL CERVICAL IMAGING ASS INTERVERTEB RAL DISC 7231 CERVICALGIA 10-28-2014 [facility] 76767 SENILE 06-23-2014 [facility] OSTEOPOROSI [facility] S INC 2689 UNSPECIFIED 05-20-2014 [facility] VITAMIN D [facility] DEFICIENCY INC 2724 OTHER AND 05-20-2014 [facility] UNSPECIFIED [facility]OS[facility] INC HYPERLIPIDE VICTORIANO 80546 OTHER 05-20-2014 [facility] OSTEOPOROSI [facility]OS[facility] S INC 23851 HYPERTENSIV 02-20-2014 [facility] E HEART [facility] DISEASE INC UNSPEC W/HEART FAIL 4660 ACUTE 02-20-2014 [facility] BRONCHITIS [facility] INC 490 BRONCHITIS 02-20-2014 [facility] NOT N EMERGENCY SPECIFIED PHYS ACUTE OR CHRONIC 18446 SWELLING OF 02-20-2014 [facility] N EMERGENCY PHYS 5853 CHRONIC 11-18-2013 [facility] KIDNEY SERV DISEASE FOUNDATIO STAGE III (MODERATE) 586 UNSPECIFIED 10-29-2013 [facility] RENAL PHYSICIANS FAILURE [place] 7262 OTHER 05-30-2013 [facility] AFFECTIONS PHYSICIANS OF SHOULDER GROUP REGION NEC 51417 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-2013 [facility] 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 38997 DISORDER OF 05-21-2013 [facility] BONE AND MEDICAL CARTILAGE IMAGING ASS UNSPECIFIED V1559 PERSONAL 05-21-2013 [facility] HISTORY OF MEDICAL OTHER IMAGING ASS INJURY V4981 ASYMPTOMATI 05-21-2013 [facility] C MEDICAL POSTMENOPAU IMAGING ASS KEELY STATUS 50883 UNSPECIFIED 04-29-2013 [facility] INFECTION SERVICES IN CCE & UNS SITE 4659 ACUTE URIS 04-29-2013 [facility] OF EMERGENCY UNSPECIFIED SERVICES SITE 96366 CRAMP OF 04-05-2013 [facility] LIMB PHYSICIANS [place] 7241 PAIN IN 01-16-2013 [facility] SPINE [facility] P 81576 ORTHOPNEA 01-16-2013 [facility] P 13138 OTHER 01-16-2013 [facility] DYSPNEA AND EMERGENCY SERVICES RESPIRATORY ABNORMALITI ES 7265 ENTHESOPATH 10-17-2012 [facility] Y OF HIP [facility] REGION INC 30800 PAIN IN 08-22-2012 [facility] JOINT MEDICAL PELVIC IMAGING ASS REGION AND THIGH 2749 GOUT, 07-16-2012 [place] [address] SHORTNESS 05-28-2012 [facility] CL[facility]IC 4240 MITRAL 05-27-2012 [facility] VALVE [facility] DISORDERS INC 87954 OSTEOARTHRO 05-27-2012 [facility] S UNSPEC [facility] WHETHER INC GEN/LOC UNSPEC SITE 14994 CHEST PAIN 05-27-2012 [facility] UNSPECIFIED MEDICAL IMAGING ASS 65004 OTHER CHEST 05-27-2012 [facility] P 5859 CHRONIC 12-01-2011 [facility] KIDNEY [facility] DISEASE INC UNSPECIFIED 24544 HYPERSOMNIA 11-15-2011 [facility] WITH SLEEP [place] APNEA UNSPECIFIED 58009 ANEMIA OF 10-30-2011 [facility] P DISEASE 2859 UNSPECIFIED 10-30-2011 [facility] ANEMIA [facility]ERG[facility] SERVICES 68334 DEGEN 10-30-2011 [facility] THORACIC/TH MEDICAL ORACOLUMBAR IMAGING ASS INTERVERTEB RAL DISC 92841 DEGEN 10-30-2011 [facility] LUMBAR/LUMB MEDICAL OSACRAL IMAGING ASS INTERVERTEB RAL DISC 7242 LUMBAGO 10-30-2011 [facility] P 7245 UNSPECIFIED 10-30-2011 [facility] BACKACHE [facility]ERGENCY SERVICES 7840 HEADACHE 10-30-2011 [facility] INC 88768 OTHER 10-20-2011 [facility] DISEASES OF MEDICAL LUNG NOT IMAGING ASS ELSEWHERE CLASSIFIED 5199 UNSPECIFIED 10-20-2011 [facility] DISEASE OF MEDICAL IMAGING ASS RESPIRATORY SYSTEM V5867 LONG-TERM 10-19-2011 [facility] USE OF [facility] P 3559 MONONEURITI 10-14-2011 [facility] S OF HOME UNSPECIFIED MEDICAL SITE EQUIPME 91648 OTHER 10-14-2011 [facility] MALAISE AND HOME FATIGUE MEDICAL EQUIPME 5180 PULMONARY 10-05-2011 [facility] COLLAPSE MEDICAL IMAGING ASS 44235 OTHER 09-30-2011 [facility] STAPHYLOCOC [facility] CUS INC INFECTION IN CCE & UNS SITE 2768 HYPOPOTASSE 09-30-2011 [facility] VICTORIANO [employer] 2888 OTHER 09-30-2011 [facility] SPECIFIED DISEASE OF ASSOCIATES, WHITE BLOOD PSC CELLS 4599 UNSPECIFIED 09-30-2011 [facility] CIRCULATORY INC SYSTEM DISORDER 486 PNEUMONIA, 09-30-2011 [facility] ORGANISM [facility] UNSPECIFIED INC 82606 OTHER 09-30-2011 [facility] SPECIFIED MEDICAL DISORDERS IMAGING ASS OF BLADDER 56553 OSTEOARTHRO 09-30-2011 [facility] SIS UNSPEC MEDICAL WHETHER IMAGING ASS GEN/LOC LOWER LEG 61198 EFFUSION OF 09-30-2011 [facility] LOWER LEG MEDICAL JOINT IMAGING ASS 7291 UNSPECIFIED 09-30-2011 [facility] MYALGIA [employer] MYOSITIS 7295 PAIN IN 09-30-2011 [facility] SOFT TISSUES OF ASSOCIATES, LIMB PSC 7821 RASH AND 09-14-2011 [facility] OTHER NONSPECIFIC ASSOCIATES, SKIN PSC ERUPTION V770 SCREENING 09-14-2011 [facility] FOR THYROID DISORDER ASSOCIATES, [facility] V7791 SCREENING 09-14-2011 [facility] FOR LIPOID DISORDERS ASSOCIATES, PSC 92244 DIAB 06-24-2011 [facility] MAR W/NEURO MANIFESTS TYPE II/UNS NOT UNCNTRL 7038 OTHER 06-24-2011 [facility] MAR SPECIFIED DISEASE OF NAIL 86447 SECONDARY 03-29-2011 [facility] OSTEOARTHRO CLINIC PSC SIS LOWER LEG 42617 PAIN IN 03-29-2011 [facility] JOINT, [facility] LOWER LEG INC 27696 BACKGROUND 03-25-2011 [facility] DIABETIC VISION RETINOPATHY 15796 NUCLEAR 03-25-2011 [facility] SCLEROSIS VISION 7820 DISTURBANCE 02-09-2011 [facility] OF SKIN [facility] SENSATION INC 2767 HYPERPOTASS 02-07-2011 [facility] EMIA [facility]OCIATES 460 ACUTE 02-07-2011 [facility] NASOPHARYNG ASSOCIATES ITIS 6929 CONTACT 01-27-2011 [facility] DERMATITIS& EMERGENCY OTHER SERVICES ECZEMA DUE UNSPEC CAUSE 72133 PAIN IN 12-09-2010 [facility] JOINT, ASSOCIATES MULTIPLE SITES 27320 UNSPEC 10-28-2010 ALLRAN JR VENTRAL ELAINE KODY W/O MENTION OBST/GANGRE N 39754 ABDOMINAL 09-21-2010 [facility] PAIN, [facility] GENERALIZED INC 7831 ABNORMAL 08-24-2010 [facility] WEIGHT GAIN PHYSICIANS [place] 5110 PLEURISY 07-18-2010 [facility] WITHOUT EMERGENCY MENTION SERVICES EFFUS/[place] [address] PAINFUL 07-18-2010 [facility] RESPIRATION MEDICAL IMAGING ASS 2721 PURE 07-08-2010 [facility] HYPERGLYCER PHYSICIANS IDEMIA [place] 7944 NONSPECIFIC 07-07-2010 [facility] ABNORM ASSOCIATES RESULTS KIDNEY FUNCTION STUDY 39348 ASTHMA, 06-16-2010 [facility] UNSPECIFIED EMERGENCY , SERVICES UNSPECIFIED STATUS 94051 DIAB 05-21-2010 [facility] LANNY W/OPHTH MANIFESTS TYPE II/UNS NOT UNCNTRL 8250 CLOSED 04-28-2010 [facility] FRACTURE OF [facility] CALCANEUS INC V5416 AFTERCARE 04-28-2010 [facility] HEALING MEDICAL TRAUMATIC IMAGING ASS FRACTURE LOWER LEG 8248 UNSPECIFIED 03-31-2010 [facility] CLOSED MEDICAL FRACTURE OF IMAGING ASS ANKLE 08963 OTHER ANKLE 03-31-2010 [facility] [employer] STRAIN S INC 9596 INJURY 02-17-2010 [facility] OTHER AND MEDICAL UNSPECIFIED IMAGING ASS HIP AND THIGH 9597 INJURY 02-17-2010 [facility] OTHER&UNSPE MEDICAL CIFIED KNEE IMAGING ASS LEG ANKLE&FOOT 920 CONTUSION 02-16-2010 [facility] OF FACE EMERGENCY SCALP AND SERVICES NECK EXCEPT EYE 25421 CONTUSION 02-16-2010 [facility] OF HIP [facility] INC E8859 FALL FROM 02-16-2010 [facility] OTHER EMERGENCY SLIPPING SERVICES TRIPPING OR STUMBLING 46459 INSOMNIA 02-04-2010 [facility] UNSPECIFIED ASSOCIATES V0382 NEED PROPH 02-04-2010 [facility] VACCINATION ASSOCIATES AGAINST STREP PNEUMONE 62554 URINARY 11-04-2009 [facility] FREQUENCY ASSOCIATES 2811 OTHER 08-24-2009 [facility] VITAMIN B12 ASSOCIATES DEFICIENCY ANEMIA 514 PULMONARY 08-24-2009 [facility] CONGESTION ASSOCIATES AND HYPOSTASIS E8490 PLACE OF 07-10-2009 [facility] OCCURRENCE, MEDICAL HOME IMAGING ASSOCIATES 43545 GEN 04-15-2009 [facility] INVOLVING MULTIPLE SITES 7919 OTHER 03-31-2009 [facility] NONSPECIFIC [facility] FINDING INC EXAMINATION OF URINE 80140 NEPHRITIS&N 03-24-2009 [facility]ULT EPHROPATHY PRIMARY W/OTH CARE CENTER PATHOLOG KIDNEY LES 30364 NOCTURIA 03-11-2009 [facility] 32678 HYPERSOMNIA 02-26-2009 [facility] UNSPECIFIED 23811 DIAB 11-28-2008 [facility] W/OPHTH GEE A MANIFESTS TYPE II/UNS TYPE UNCNTRL 4619 ACUTE 06-17-2008 [facility] SINUSITIS, ASSOCIATES UNSPECIFIED 8082 CLOSED 03-18-2008 [facility] FRACTURE OF L REHAB PUBIS ASSOC PSC 7089 UNSPECIFIED 11-17-2007 [facility] URTICARIA ASSOCIATES 6868 OTH SPEC 11-12-2007 [facility] SKIN&SUBCUT PROF SERV TISSUE V642 SURG/OTH 11-11-2007 [facility] PROC NOT [facility] CARRIED OUT INC BECAUSE PTS DECN Immunization Name Date Route CVX Reacti Commen Provid Is Given on t er Refuse d PPSV23 FAMILY No 2009 CARE VACCIN ASSOCI E 2 ATES YRS OR OLDER FOR SUBQ/I M USE Procedures Procedure DOS Code Location Performer Comment SBSQ [address] [place] [address] PHYSICIAN CARE/DAY S GROUP 25 MINUTES GROUND A0425 [facility] 7 AMBULANCE AMBULANCE PER SERVICE SERVICE STATUTE MILE AMBULANCE A0429 [facility] SERVICE 7 AMBULANCE AMBULANCE BLS SERVICE SERVICE EMERGENCY TRANSPORT INITIAL [address] [place] [address] PHYSICIAN CARE/DAY S GROUP 70 MINUTES ECG 07238 [facility] BARRETO JR ROUTINE 7 [facility] W/LEAST P 12 LDS I&R ONLY MEASUREME [id number] [facility] NT 7 [facility] CARDIAC INC INC SAMPLING PRESS LT HEART PERQ DILAT [id number] [facility] CORONARY 7 [facility] ART 2 ART INC INC 2 RX-ELUT [place] DEVC PERQ FLUORO [id number] [facility] MULTI 7 [facility] CORONARY INC INC ARTERIES LOW OSMOLAR CONT FLUOROSCO [id number] [facility] PY LEFT 7 [facility]OS[facility] HEART LOW INC INC OSMOLAR CONTRAST FLUORO [id number] [facility] BILATERAL 7 [facility] RENAL INC INC ART LOW OSMOLAR CONTRST COLLECTIO 82234 [facility] N VENOUS 6 [facility] BLOOD INC INC VENIPUNCT URE HEMOGLOBI 79468 [facility] N 6 [facility] GLYCOS[place] [address] [facility] THYROID 6 [facility] H[facility] STIMULATI INC INC NG HORMONE TSH COMPREHEN 10248 [facility] SIVE 6 [facility] METABOLIC INC INC PANEL LIPID 11958 [facility] PANEL 6 [facility] INC RENAL 26463 COMBINED COMBINED FUNCTION 6 PHYSICIAN PHYSICIAN PANEL S [place] S [place] VOLUME 57385 COMBINED COMBINED MEASUREME 6 PHYSICIAN PHYSICIAN NT TIMED S LA S LA COLLECTIO N EACH BLOOD 20240 COMBINED COMBINED COUNT 6 PHYSICIAN PHYSICIAN COMPLETE S LA S LA AUTO&AUTO DIFRNTL WBC CULTURE 15242 COMBINED COMBINED BCT 6 PHYSICIAN PHYSICIAN ISOL&PRSM S LA S LA PTV ID ISOLATE EA URINE 25 29939 COMBINED COMBINED HYDROXY 6 PHYSICIAN PHYSICIAN INCLUDES S LA S LA FRACTIONS IF PERFORMED CULTURE 33319 COMBINED COMBINED BACTERIAL 6 PHYSICIAN PHYSICIAN S LA S LA QUANTTATI VE COLONY COUNT URINE URNLS DIP 84678 COMBINED COMBINED 6 PHYSICIAN PHYSICIAN STICK/TAB S LA S LA LET REAGENT AUTO MICROSCOP Y BLD GLU A4253 ARRIVA ARRIVA TEST/REAG 6 MEDICAL MEDICAL T STRIPS HOME BLD GLU MON-50 NORMAL A4256 ARRIVA ARRIVA LOW AND 6 MEDICAL MEDICAL HIGH CALIBRATO R SOLUTION/ CHIPS LANCETS A4259 ARRIVA ARRIVA PER BOX 6 [facility] A4258 ARRIVA ARRIVA WERED 6 MEDICAL ENVIRONMENTAL CONTROL ADMINISTRATOR FOR LANCET EACH COLLECTIO 89278 ZACK DIXON N VENOUS 6 [facility] BLOOD [facility] INC V[facility]IP[facility]CT [facility] G0378 ZACK DIX[facility] OBSERVATI 6 [facility] ON INC INC SERVICE PER HOUR GLUC BLD 79389 ZACKSHANDA DIXON GLUC MNTR 6 [facility] DEV INC INC CLEARED FDA SPEC HOME USE BASIC 12638 ZACK DIXON METABOLIC 6 [facility] PANEL INC INC CALCIUM TOTAL CREATINE 87200 [facility] KINASE 6 [facility] TOTAL INC INC BLOOD 82997 [facility] COUNT 6 [facility] COMPLETE INC INC AUTO&[place] [address] [facility]ACK [facility] TROPONIN 6 [facility] QUANTITAT INC INC MARIBEL CREATINE 67597 ZACK DIXON KINASE MB 6 [facility] FRACTION INC INC ONLY COMPREHEN 39087 ZACKSHANDA DIXON SIVE 6 [facility] METABOLIC INC INC PANEL GLUC BLD 61103 ZACKSHANDA DIXON GLUC MNTR 6 [facility] DEV INC INC CLEARED FDA SPEC HOME USE URNLS DIP 64575 [facility] ZACK 6 [facility] STICK/TAB INC INC LET REAGENT AUTO MICROSCOP Y THER 53005 ZACK DIXON PROPH/DX 6 [facility] NJX IV INC INC PUSH SINGLE/1S T SBST/DRUG GROUND A0425 [facility] MILEA 6 AMBULANCE AMBULANCE PER SERVICE SERVICE STATUTE MILE PRESSURIZ 97683 ZACK DIXON ED/NONPRE 6 [facility] SSURIZED INC INC [facility] G0378 [facility] OBSERVATI 6 [facility] ON INC INC SERVICE PER HOUR ECG 24702 [facility] ROUTINE 6 [facility] ECG INC INC W/LEAST 12 LDS TRCG ONLY W/O I&R COLLECTIO 92567 ZACK [facility]IX[facility] N VENOUS 6 [facility] BLOOD INC INC VENIPUNCT URE AMB A0427 [facility] SERVICE 6 AMBULANCE AMBULANCE ALS SERVICE SERVICE EMERGENCY TRANSPORT LEVEL 1 ECG 72688 ZACK MCLEAN ROUTINE 6 [facility] W/LEAST P 12 LDS I&R ONLY STANDARD K0001 REID LOMAS 6 HOME HOME R MEDICAL MEDICAL EQUIPME EQUIPME HOS BED E0260 REID REID SEMI-ELEC 6 HOME HOME W/ANY MEDICAL MEDICAL TYPE SIDE EQUIPME EQUIPME RAIL W/MATTRSS STANDARD K0001 REID REIDJOHN CHAUDHARII 6 HOME HOME R MEDICAL MEDICAL EQUIPME EQUIPME HOS BED E0260 REID MATHEWS SEMI-ELEC 6 HOME HOME W/ANY MEDICAL MEDICAL TYPE SIDE EQUIPME EQUIPME RAIL W/MATTRSS STANDARD K0001 REID REIDJOHN DELGADILLOCHAI 6 HOME HOME R MEDICAL MEDICAL EQUIPME EQUIPME HOS BED E0260 REID MATHEWS SEMI-ELEC 6 HOME HOME W/ANY MEDICAL MEDICAL TYPE SIDE EQUIPME EQUIPME RAIL W/MATTRSS BLD GLU A4253 ARRIVA ARRIVA TEST/REAG 6 MEDICAL MEDICAL T STRIPS HOME BLD GLU MON-50 NORMAL A4256 ARRIVA ARRIVA LOW AND 6 MEDICAL MEDICAL HIGH CALIBRATO R SOLUTION/ CHIPS LANCETS A4259 ARRIVA ARRIVA PER BOX 6 MEDICAL MEDICAL OF 100 STANDARD K0001 REID CHAUDHARII 6 HOME HOME R MEDICAL MEDICAL EQUIPME EQUIPME HOS BED E0260 REID REID SEMI-ELEC 6 HOME HOME W/ANY MEDICAL MEDICAL TYPE SIDE EQUIPME EQUIPME RAIL W/MATTRSS LIPID 39422 ZACK DIXON PANEL 6 [facility] INC INC BASIC 56984 ZACK DIXON METABOLIC 6 [facility] PANEL INC INC CALCIUM TOTAL HEMOGLOBI 59110 ZACK DIXON N 6 [facility] GLYCOSYLA INC INC ALEX A1C COLLECTIO 08492 ZACK DIXON N VENOUS 6 [facility] BLOOD INC INC VENIPUNCT URE STANDARD K0001 REID REIDJOHN DELGADILLOELAINEI 6 HOME HOME R MEDICAL MEDICAL EQUIPME EQUIPME HOS BED E0260 REID REID SEMI-ELEC 6 HOME HOME W/ANY MEDICAL MEDICAL TYPE SIDE EQUIPME EQUIPME RAIL W/MATTRSS URNLS DIP 61818 ZACK DIXON 6 [facility] STICK/TAB INC INC LET REAGENT AUTO MICROSCOP Y HOS BED E0260 REID MATHEWS SEMI-ELEC 6 HOME HOME W/ANY MEDICAL MEDICAL TYPE SIDE EQUIPME EQUIPME RAIL W/MATTRSS STANDARD K0001 REID MATHEWS WHEELCHAI 6 HOME HOME R MEDICAL MEDICAL EQUIPME EQUIPME NORMAL A4256 ARRIVA ARRIVA LOW AND 6 MEDICAL MEDICAL HIGH CALIBRATO R SOLUTION/ CHIPS LANCETS A4259 ARRIVA ARRIVA PER BOX 6 MEDICAL MEDICAL OF 100 BLD GLU A4253 ARRIVA ARRIVA TEST/REAG 6 MEDICAL MEDICAL T STRIPS HOME BLD GLU MON-50 REPL KIM A4233 ARRIVA ARRIVA ALKALINE 6 MEDICAL MEDICAL NOT J CELL LIBERTY BG MON OWND PT OBSERVATI 39083 [facility] CARE 6 [place] CHARMAINE DISCHARGE INTERNAL MEDI MANAGEMEN T GLUC BLD 21506 ZACK DIXON GLUC MNTR 6 [facility] DEV INC INC CLEARED FDA [facility]C [facility] G0378 ZACK DIXON OBSERVATI 6 [facility] ON INC INC [facility] G0378 ZACK DIXON OBSERVATI 6 [facility] ON INC INC SERVICE PER HOUR COLLECTIO 24179 ZACK DIXON N VENOUS 6 [facility] BLOOD INC INC VENIPUNCT URE GLUC BLD 15712 ZACK DIXON GLUC MNTR 6 [facility] DEV INC [place] [address] ZACK DIXON TROPONIN 6 [facility] QUANTITAT INC INC MARIBEL BLOOD 08587 ZACK DIXON COUNT 6 [facility] COMPLETE INC INC AUTO&AUTO DIFRNTL WBC BASIC 93994 ZACK DIXON METABOLIC 6 [facility] [place] [address] ZACK DIXON LIPASE 6 [facility] INC INC CREATINE 30823 ZACK DIXON KINASE 6 [facility] TOTAL INC INC BLOOD 89003 ZACK DIXON COUNT 6 [facility] COMPLETE INC INC AUTO&[place] [address] ZACK DIXON TROPONIN 6 [facility] QUANTITAT INC INC MARIBEL CREATINE 20886 ZACK DIXON KINASE MB 6 [facility] FRACTION INC INC ONLY COMPREHEN 96790 ZACK DIXON SIVE 6 [facility] METABOLIC INC INC PANEL GLUC BLD 01372 ZACK DIXON GLUC MNTR 6 [facility] DEV INC INC CLEARED FDA SPEC HOME USE URNLS DIP 17533 ZACK DIXON 6 [facility] STICK/TAB INC INC LET REAGENT AUTO MICROSCOP Y GROUND A0425 [facility] MILEAGE 6 AMBULANCE AMBULANCE PER SERVICE SERVICE STATUTE MILE INITIAL 49205 [facility] VINAY CAZARES [address] [place] [address] ON INTERNAL CARE/DAY MED 30 MINUTES INJECTION J2405 ZACK DIXON 6 [facility] ONDANSETR INC [place] H[place] 1 [place] [address] ZACK DIXON INFUSION 6 [facility] THERAPY/P INC INC ROPHYLAXI S /DX 1ST TO 1 HR THERAPEUT 43094 ZACK DIXON IC 6 [facility] INJECTION INC INC IV PUSH EACH NEW DRUG COLLECTIO 01198 ZACK DIXON N VENOUS 6 [facility] BLOOD INC INC VENIPUNCT URE RADIOLOGI 11254 ZACK DIXON C 6 [facility] EXAMINATI INC [place] [address] ZACK DIXON HEAD/BRAI 6 [facility] N W/O INC INC CONTRAST MATERIAL ECG 29774 ZACK BARRETO JR ROUTINE 6 [facility] W/LEAST P 12 LDS I&R ONLY AMB A0427 [facility] SERVICE 6 AMBULANCE AMBULANCE ALS SERVICE SERVICE EMERGENCY TRANSPORT LEVEL 1 ECG 09268 ZACK DIXON ROUTINE 6 [facility] ECG INC INC W/LEAST 12 LDS TRCG ONLY W/O I&R HOSPITAL G0378 ZACK DIXON OBSERVATI 6 [facility] ON INC INC SERVICE PER HOUR ALBUMIN 30976 COMBINED COMBINED SERUM 6 PHYSICIAN PHYSICIAN PLASMA/WH S LA S LA OLE BLOOD BLOOD 50211 COMBINED COMBINED COUNT 6 PHYSICIAN PHYSICIAN COMPLETE S LA S LA AUTO&[place] [address] COMBINED COMBINED BLOOD/URI 6 PHYSICIAN [place] [address] COMBINED COMBINED PHOSPHORU 6 PHYSICIAN [place] [address] COMBINED COMBINED MAGNESIUM 6 PHYSICIAN PHYSICIAN S LA S LA CYANOCOBA 26804 COMBINED COMBINED SOHA 6 PHYSICIAN PHYSICIAN VITAMIN S [place] S LA B-12 [place] [address] COMBINED COMBINED THYROID 6 PHYSICIAN PHYSICIAN STIMULATI S LA S LA NG HORMONE TSH BASIC 82388 COMBINED COMBINED METABOLIC 6 PHYSICIAN PHYSICIAN PANEL S LA S LA CALCIUM TOTAL HOS BED E0260 REID MATHEWS SEMI-ELEC 6 HOME HOME W/ANY MEDICAL MEDICAL TYPE SIDE EQUIPME EQUIPME RAIL W/MATTRSS STANDARD K0001 REID CHAUDHARII 6 HOME HOME R MEDICAL MEDICAL EQUIPME EQUIPME PHYS G0179 [facility] RE-CERT 6 [place] TRACY MCR-COVR INTERNAL [facility] HL[facility] MED SRVC RE-CERT PRD BLOOD 06203 ZACK DIXON COUNT 6 [facility] COMPLETE INC INC AUTO&AUTO DIFRNTL WBC COMPREHEN 78128 ZACK DIXON SIVE 6 [facility] METABOLIC INC INC PANEL GLUC BLD 53434 ZACK DIXON GLUC MNTR 6 [facility] DEV INC INC CLEARED FDA SPEC HOME USE URNLS DIP 55117 ZACK DIXON 6 [facility] STICK/TAB INC INC LET REAGENT AUTO MICROSCOP Y GROUND A0425 [facility] PER SERVICE SERVICE STATUTE MILE AMBULANCE A0429 [facility] SERVICE 6 AMBULANCE AMBULANCE BLS SERVICE SERVICE EMERGENCY TRANSPORT SBSQ 34732 [facility] NURSING 6 [place] TRACY FACIL INTERNAL CARE/DAY MED NEW PROBLEM 25 MIN SBSQ 33207 [facility] CHAPMAN NURSING 6 [place] HOL FACIL INTERNAL CARE/DAY MEDI MINOR COMPLJ 15 MIN STANDARD K0001 REID CHAUDHARII 6 HOME HOME R MEDICAL MEDICAL EQUIPME EQUIPME HOS BED E0260 REID MATHEWS SEMI-ELEC 6 HOME HOME W/ANY MEDICAL MEDICAL TYPE SIDE EQUIPME EQUIPME RAIL W/MATTRSS RADEX 86976 SYMPHONY SYMPHONY SPINE 6 MOBILEX MOBILEX THORACIC 2 VIEWS RADEX 01147 SYMPHONY SYMPHONY SPINE 6 MOBILEX MOBILEX CERVICAL 2 OR 3 VIEWS SBSQ [address]87 [facility] [address] INTERNAL CARE/DAY MED NEW PROBLEM 25 MIN HOS BED E0260 REID MATHEWS SEMI-ELEC 5 HOME HOME W/ANY MEDICAL MEDICAL TYPE SIDE EQUIPME EQUIPME RAIL W/MATTRSS STANDARD K0001 REID GLASSJOHN CHAUDHARII 5 HOME HOME R MEDICAL MEDICAL EQUIPME EQUIPME RADIOLOGI 41425 ZACK Lopez EXAM 5 [facility] CHEST 2 INC INC VIEWS FRONTAL&L ATERAL AMB A0427 [facility] SERVICE 5 AMBULANCE AMBULANCE ALS SERVICE SERVICE EMERGENCY TRANSPORT LEVEL 1 SUSCEPTIB 01211 ZACK DIXON LTY STDY 5 [facility] ANTIMICRB INC INC IAL MICRO/AGA R DILUTJ COMPREHEN 92066 ZACK DIXON SIVE 5 [facility] METABOLIC INC INC PANEL BLOOD 25885 ZACK DIXON COUNT 5 [facility] COMPLETE INC INC AUTO&AUTO DIFRNTL WBC CULTURE 97746 ZACK DIXON BACTERIAL 5 [facility] INC INC QUANTTATI VE COLONY COUNT URINE GROUND A0425 [facility] MILEAGE 5 AMBULANCE AMBULANCE PER SERVICE SERVICE STATUTE MILE PRESSURIZ 98829 ZACK DIXON ED/NONPRE 5 [facility] SSURIZED INC INC INHALATIO N TREATMENT URNLS DIP 04170 ZACK DIXON 5 [facility] STICK/TAB INC INC LET REAGENT AUTO MICROSCOP Y NATRIURET 86010 ZACK DIXON IC 5 [facility] PEPTIDE INC INC STANDARD K0001 REID REIDJOHN CHAUDHARII 5 HOME HOME R MEDICAL MEDICAL EQUIPME EQUIPME HOS BED E0260 REID MATHEWS SEMI-ELEC 5 HOME HOME W/ANY MEDICAL MEDICAL TYPE SIDE EQUIPME EQUIPME RAIL W/MATTRSS SBSQ 14288 [facility] 5 CULAR MAT CARE/DAY CONSULTAN 25 TS O MINUTES INITIAL 54542 [facility] 70 TS O MINUTES ECHO 38672 [facility] 5 MEDICAL JUAN J C R-T 2D SERV W/WO FOUNDATIO M-MODE N REC F-UP/LMTD RADIOLOGI 59331 [facility] SHERI C EXAM 5 MEDICAL MELIDA CHEST 2 IMAGING VIEWS ASS FRONTAL&L ATERAL STANDARD K0001 REID REID DELGADILLOCHAI 5 HOME HOME R MEDICAL MEDICAL EQUIPME EQUIPME HOS BED E0260 REID REID SEMI-ELEC 5 HOME HOME W/ANY MEDICAL MEDICAL TYPE SIDE EQUIPME EQUIPME RAIL W/MATTRSS THERAPEUT 29986 ZACK DIXON IC PX 1/> 5 [facility] AREAS INC INC EACH 15 MIN EXERCISES BLD GLU A4253 ARRIVA ARRIVA TEST/REAG 5 MEDICAL MEDICAL T STRIPS HOME BLD GLU MON-50 NORMAL A4256 ARRIVA ARRIVA LOW AND 5 MEDICAL MEDICAL HIGH CALIBRATO R SOLUTION/ CHIPS LANCETS A4259 ARRIVA ARRIVA PER BOX 5 MEDICAL MEDICAL OF 100 URNLS DIP 56642 ZACK CALDERON 5 [facility] LET RGNT P NON-AUTO W/O MICRSCP THERAPEUT 65429 ZACK DIXON IC PX 1/> 5 [facility] AREAS INC INC EACH 15 MIN EXERCISES STANDARD K0001 REID DELGADILLOCHAI 5 HOME HOME R MEDICAL MEDICAL EQUIPME EQUIPME HOS BED E0260 REID REID SEMI-ELEC 5 HOME HOME W/ANY MEDICAL MEDICAL TYPE SIDE EQUIPME EQUIPME RAIL W/MATTRSS THERAPEUT 20845 ZACK DIXON IC PX 1/> 5 [facility] AREAS INC INC EACH 15 MIN EXERCISES THERAPEUT 89794 ZACK DIXON IC PX 1/> 5 [facility] AREAS INC INC EACH 15 MIN EXERCISES HEMOGLOBI 29542 ZACK Yoo 5 [facility] GLYCOSYLA INC INC ALEX A1C URNLS DIP 48209 ZACK DIXON 5 [facility] STICK/TAB INC INC LET REAGENT AUTO MICROSCOP Y RENAL 33443 ZACK DIXON FUNCTION 5 [facility] PANEL INC INC SUSCEPTIB 56545 ZACK DIXON LTY STDY 5 [facility] ANTIMICRB INC INC IAL MICRO/AGA R DILUTJ BLOOD 39087 ZACKSHANDA ELLIOTTON COUNT 5 [facility] COMPLETE INC INC AUTO&AUTO DIFRNTL WBC 25 62388 ZACK DIXON HYDROXY 5 [facility] INCLUDES INC INC FRACTIONS IF PERFORMED CULTURE 14090 ZACK ELLIOTTON BACTERIAL 5 [facility] INC INC QUANTTATI VE COLONY COUNT URINE CULTURE 01099 ZACK DIXON BCT 5 [facility] ISOL&PRSM INC [place] [address] ZACK DIXON THYROID 5 [facility] STIMULATI INC INC NG HORMONE TSH COLLECTIO 17610 ZACK DIXON N VENOUS 5 [facility] BLOOD INC INC VENIPUNCT URE THERAPEUT 97334 ZACKSHANDA DIXON IC PX 1/> 5 [facility] AREAS INC INC EACH 15 MIN EXERCISES THERAPEUT 67747 ZACK DIXON IC PX 1/> 5 [facility] AREAS INC INC EACH 15 MIN EXERCISES THERAPEUT 39831 ZACK DIXON IC PX 1/> 5 [facility] AREAS INC INC EACH 15 MIN EXERCISES THERAPEUT 90210 ZACK DIXON IC PX 1/> 5 [facility] AREAS INC INC EACH 15 MIN EXERCISES CATH CLCT P9612 ZACK CALDERON SPECIMEN 5 [facility] P [facility]ACES SERVICE PHYSICAL 80951 ZACK DIXON THERAPY 5 [facility] EVALUATIO INC INC N CULTURE 18725 ZACK DIXON BACTERIAL 5 [facility] INC INC QUANTTATI VE COLONY COUNT URINE CULTURE 37716 ZACK DIXON BCT 5 [facility] ISOL&PRSM INC INC PTV ID ISOLATE EA URINE URNLS DIP 98835 ZACK CALDERON 5 [facility] STICK/TAB HOSPITAL LET RGNT P NON-AUTO W/O MICRSCP SUSCEPTIB 43611 ZACK DIXON LTY STDY 5 [facility] [...] MEDICAL EQUIPME EQUIPME STATIONAR Y W/FIXED ARMS ONELIA 93378 ZACK CALDERON POST-VOID 5 [facility] RESIDUAL P URINE&/BL ADDER CAP SUSCEPTIB 91091 ZACK DIXON LTY STDY 5 [facility] ANTIMICRB INC INC IAL MICRO/AGA R DILUTJ CULTURE 55478 ZACK DIXON BCT 5 [facility] ISOL&PRSM INC INC PTV ID ISOLATE EA URINE CULTURE 21354 ZACK DIXON BACTERIAL 5 [facility] INC INC QUANTTATI VE COLONY COUNT URINE RADIOLOGI 14318 SYMPHONY SYMPHONY C 5 MOBILEX MOBILEX EXAMINATI ON CHEST SINGLE VIEW FRONTAL RADIOLOGI 83109 SYMPHONY SYMPHONY C 5 MOBILEX MOBILEX EXAMINATI ON CHEST SINGLE VIEW FRONTAL DEBRIDEME 32191 [facility] 5 ARE ANDREZ ANY METHOD 6/> INITIAL 89503 [facility]URSING 5 ARE ANDREZ FACILITY CARE/DAY 25 MINUTES SBSQ 99223 [facility] 5 [facility] INTERNAL CARE/DAY MED NEW PROBLEM 25 MIN BASIC 83278 COMBINED COMBINED METABOLIC 5 PHYSICIAN PHYSICIAN PANEL S LA S LA CALCIUM TOTAL BLOOD 26356 COMBINED COMBINED COUNT 5 PHYSICIAN PHYSICIAN COMPLETE S LA S LA AUTO&[place] [address] LIZZ BEINEKE ABDOMINAL 5 MEDICAL KAY REAL IMAGING TIME ASS W/[place] [address] LIZZ SHERI ABDOMEN & 5 MEDICAL MELIDA PELVIS IMAGING W/O ASS CONTRAST MATERIAL RADIOLOGI 91872 NEW HAMPSHIRE RODRIGUEZ ALL C 5 MEDICAL EXAMINATI IMAGING ON CHEST ASS SINGLE VIEW FRONTAL ECG 28576 ZACK MCLEAN ROUTINE 5 [facility] W/LEAST P 12 LDS I&R ONLY CRITICAL 58215 ZACK DIXON CARE 5 [facility] ED P P PATIENT INIT 30-74 MIN RADEX 10644 [facility] MAST[facility] 5 MEDICAL KAY COMPL IMAGING MINIMUM 3 ASS VIEWS IA SIDE RADEX 21348 [facility] SPINE 5 MEDICAL KAY CERVICAL IMAGING 4 OR 5 ASS VIEWS [facility] A4258 ARRIVA ARRIVA WERED 5 MEDICAL ENVIRONMENTAL CONTROL ADMINISTRATOR FOR LANCET EACH BLD GLU A4253 ARRIVA ARRIVA TEST/REAG 5 MEDICAL MEDICAL T STRIPS HOME BLD GLU MON-50 LANCETS A4259 ARRIVA ARRIVA PER BOX 5 MEDICAL MEDICAL OF 100 NORMAL A4256 ARRIVA ARRIVA LOW AND 5 MEDICAL MEDICAL HIGH CALIBRATO R SOLUTION/ CHIPS COMPREHEN 48996 COMBINED COMBINED SIVE 5 PHYSICIAN PHYSICIAN METABOLIC S LA S LA PANEL RENAL 02316 ZACK DIXON FUNCTION 5 [facility] PANEL INC INC COLLECTIO 85782 ZACK DIXON N VENOUS 5 [facility] BLOOD INC INC VENIPUNCT URE THERAPEUT 79372 ZACK DIXON IC 5 [facility] PROPHYLAC INC INC TIC/DX INJECTION SUBQ/IM INJECTION J0897 ZACK DIXON 5 [facility] DENOSUMAB INC INC 1 MG DXA BONE 13431 ZACK DIXON DENSITY 4 [facility] STUDY 1/> INC INC SITES AXIAL SKEL URNLS DIP 84881 ZACK DIXON 4 [facility] STICK/TAB INC INC LET REAGENT AUTO MICROSCOP Y RENAL 74305 ZACK DIXON FUNCTION 4 [facility] PANEL INC INC SUSCEPTIB 35465 ZACK DIXON LTY STDY 4 [facility] ANTIMICRB INC INC IAL MICRO/AGA R DILUTJ CREATININ 64321 ZACK DIXON E OTHER 4 [facility] SOURCE INC INC PROTEIN 56446 ZACK ELLIOTTON XCPT 4 [facility] REFRACTOM INC INC ETRY SERUM PLASMA/WH L BLD BLOOD 99593 ZACK DIXON COUNT 4 [facility] COMPLETE INC INC AUTO&[place] [address] ZACK DIXON PARATHORM 4 [facility] ONE INC INC 25 67065 ZACK DIXON HYDROXY 4 [facility] INCLUDES INC INC FRACTIONS IF PERFORMED CULTURE 25635 ZACK DIXON BCT 4 [facility] ISOL&PRSM INC INC PTV ID ISOLATE EA URINE CULTURE 58640 ZACK DIXON BACTERIAL 4 [facility] INC INC QUANTTATI VE COLONY COUNT URINE COLLECTIO 92025 ZACK DIXON N VENOUS 4 [facility] BLOOD INC INC VENIPUNCT URE COMPREHEN 94186 COMBINED COMBINED SIVE 4 PHYSICIAN PHYSICIAN METABOLIC S LA S LA PANEL COMPREHEN 63728 ZACK DIXON SIVE 4 [facility] [address] ZACK DIXON TROPONIN 4 [facility] QUANTITAT INC INC MARIBEL BLOOD 15897 ZACK DIXON COUNT 4 [facility] COMPLETE INC INC AUTO&AUTO DIFRNTL WBC CREATINE 71542 ZACK DIXON KINASE MB 4 [facility] FRACTION INC INC ONLY CREATINE 95373 ZACK DIXON KINASE 4 [facility] TOTAL INC INC URNLS DIP 23484 ZACK DIXON 4 [facility] STICK/TAB INC INC LET REAGENT AUTO MICROSCOP Y PRESSURIZ 50245 ZACK DIXON ED/NONPRE 4 [facility] SSURIZED INC INC INHALATIO N TREATMENT RADIOLOGI 56703 ZACK DIXON C EXAM 4 [facility] CHEST 2 INC INC VIEWS FRONTAL&L ATERAL COLLECTIO 08184 ZACK DIXON N VENOUS 4 [facility] BLOOD INC INC VENIPUNCT URE RENAL 41729 ZACK DIXON FUNCTION 4 [facility] PANEL INC INC 25 98520 ZACK DIXON HYDROXY 4 [facility] INCLUDES INC INC FRACTIONS IF PERFORMED BLOOD 81108 ZACK DIXON COUNT 4 [facility] COMPLETE INC INC AUTO&AUTO DIFRNTL WBC THERAPEUT 68770 ZACK DIXON IC 4 [facility] PROPHYLAC INC INC TIC/DX INJECTION SUBQ/IM INJECTION J0897 ZACKSHANDA DIXON 4 [facility] DENOSUMAB INC INC 1 MG BASIC 62443 COMBINED COMBINED METABOLIC 4 PHYSICIAN PHYSICIAN PANEL S LA S LA CALCIUM TOTAL COMPREHEN 80725 COMBINED COMBINED SIVE 4 PHYSICIAN PHYSICIAN METABOLIC S LA S LA PANEL BASIC 22511 ZACK DIXON METABOLIC 4 [facility] PANEL INC INC CALCIUM TOTAL COLLECTIO 32361 ZACK DIXON N VENOUS 4 [facility] BLOOD INC INC VENIPUNCT URE INJECTION J0897 ZACK ELLIOTTON 4 [facility] DENOSUMAB INC INC 1 MG THERAPEUT 26000 ZACK DIXON IC 4 [facility] PROPHYLAC INC INC TIC/DX INJECTION SUBQ/IM INJECTION 92993 [facility] 1 TENDON 3 PHYSICIAN PHYSICIAN S GROUP S GROUP SHEATH/LI GAMENT APONEUROS IS ARTHROCEN 08091 [facility] PETTEY TESIS 3 PHYSICIAN TONI ASPIR&/IN S GROUP J MAJOR JT/BURSA W/O US INJ J0702 [facility] PETTEAg BETAMETHA 3 PHYSICIAN TONI SONE S GROUP ACETATE & PHOSPHATE 3 MG COLLECTIO 70675 ZACK DIXON N VENOUS 3 [facility] BLOOD INC INC VENIPUNCT URE URNLS DIP 46310 ZACK DIXON 3 [facility] STICK/TAB INC INC LET REAGENT AUTO MICROSCOP Y DXA BONE 45316 [facility]RE SHERI DENSITY 3 MEDICAL MELIDA STUDY 1/> IMAGING SITES ASS AXIAL SKEL BASIC 92426 COMBINED COMBINED METABOLIC 3 PHYSICIAN PHYSICIAN [place] [address] ZACK DIXON PARATHORM 3 [facility] ONE INC INC 25 34536 ZACK DIXON HYDROXY 3 [facility] INCLUDES INC INC FRACTIONS IF PERFORMED ALBUMIN 58583 ZACK DIXON URINE 3 [facility] MICROALBU INC INC MIN QUANTIATI VE BLOOD 09950 ZACK DIXON COUNT 3 [facility] COMPLETE INC INC AUTO&AUTO DIFRNTL WBC RENAL 83550 ZACK DIXON FUNCTION 3 [facility] PANEL INC INC CUL BACT 66521 ZACK DIXON XCPT 3 [facility] URINE INC INC BLOOD/STO OL AEROBIC ISOL IAADI 26433 ZACK DIXON INFLUENZA 3 [facility] B VIRUS INC INC IAADI 60981 ZACK DIXON INFFLUENZ 3 [facility] [place] [address] ZACK DIXON STREPTOCO 3 [facility] CCUS INC INC GROUP A RADIOLOGI 90251 [facility] EXAM 3 MEDICAL MELIDA CHEST 2 IMAGING VIEWS ASS FRONTAL&L ATERAL BASIC 74223 COMBINED COMBINED METABOLIC 3 PHYSICIAN PHYSICIAN PANEL [place] [address] COMBINED COMBINED BLOOD/URI 3 PHYSICIAN PHYSICIAN C ACID S LA S LA FIBRIN 72936 ZACK DIXON DGRADJ 3 [facility] PRODUCTS INC INC D-DIMER QUAL/SEMI BARB CREATINE 20096 ZACK DIXON KINASE 3 [facility] TOTAL INC INC TECHNETIU A9540 ZACK Flanagan TC-99M 3 [facility] MAA DX INC INC STDY DOSE UP TO 10 MCI TECHNETIU A9567 ZACK DIXON M TC-99M 3 [facility] PENTETATE INC INC DX AEROSOL TO 75 MCI BLOOD 69885 ZACK DIXON COUNT 3 [facility] COMPLETE INC INC AUTO&AUTO DIFRNTL WBC CREATINE 08370 ZACK DIXON KINASE MB 3 [facility] FRACTION INC INC ONLY COMPREHEN 43511 ZACK DIXON SIVE 3 [facility] [place] [address] ZACK DIXON TROPONIN 3 [facility] QUANTITAT INC INC MARIBEL PULMONARY 82010 ZACK DIXON 3 [facility] VENTILATI INC INC ON & PERFUSION IMAGING THER 71295 ZACK DIXON PROPH/DX 3 [facility] NJX IV INC INC PUSH SINGLE/1S T SBST/DRUG RADIOLOGI 21260 ZACK DIXON C EXAM 3 [facility] CHEST 2 INC INC VIEWS FRONTAL&L ATERAL RHYTHM 03413 ZACK DIXON ECG 1-3 [facility] LEADS INC INC TRACING ONLY W/O I&R ECG 29856 EMEKA LIRA ROUTINE 3 EMERGENCY ECG SERVICES W/LEAST 12 LDS I&R ONLY RADIOLOGI 11920 ZACK DIXON C [facility] EXAMINATI INC INC ON CHEST [place] FRONTAL ECG 07140 ZACK DIXON ROUTINE 3 [facility] ECG INC INC W/LEAST 12 LDS TRCG ONLY W/O I&R COLLECTIO 27030 ZACK DIXON N VENOUS 3 [facility] BLOOD INC INC VENIPUNCT URE BLOOD 85364 ZACK DIXON COUNT [facility] COMPLETE INC INC AUTO&AUTO DIFRNTL WBC RENAL 89615 ZACK DIXON FUNCTION 3 [facility] PANEL INC INC THERAPEUT 72810 ZACK DIXON IC [facility] PROPHYLAC INC INC TIC/DX INJECTION SUBQ/IM INJECTION J0897 ZACK DIXON [facility] DENOSUMAB INC INC 1 MG THERAPEUT 15582 ZACK DIXON IC PX 1/> [facility] AREAS INC INC EACH 15 MIN EXERCISES APPLICATI 28612 ZACK DIXON ON 3 [facility] MODALITY INC INC 1/> AREAS HOT/COLD PACKS APPL 04648 ZACK DIXON MODALITY 3 [facility] 1/> AREAS INC INC 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 G0283 ZACK DIXON 1/> AREAS [facility] OTH THAN INC INC WND CARE PART TX PLAN E-STIM G0283 ZACK DIXON 1/> AREAS [facility] OTH THAN INC INC WND CARE PART TX PLAN APPL 61659 ZACK DIXON MODALITY 3 [facility]/> AREAS INC INC 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 APPLICATI 04197 ZACK DIXON ON [facility] MODALITY INC INC 1/> AREAS HOT/COLD PACKS THERAPEUT 81116 ZACK DIXON IC PX 1/> [facility] AREAS INC INC EACH 15 MIN EXERCISES THERAPEUT 98644 ZACK DIXON IC PX 1/> 3 [facility] AREAS INC INC EACH 15 MIN EXERCISES APPLICATI 60261 ZACK DIXON ON 3 [facility] MODALITY INC INC 1/> AREAS HOT/COLD PACKS APPL 91113 ZACK DIXON MODALITY 3 [facility] 1/> AREAS INC INC 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 G0283 ZACK DIXON 1/> AREAS [facility] OTH THAN INC INC WND CARE PART TX PLAN E-STIM G0283 ZACK DIXON 1/> AREAS 3 [facility] OTH TH[facility] INC INC WND CARE PART TX PLAN APPL 33572 ZACK DIXON MODALITY 3 [facility] 1/> AREAS INC INC 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 APPLICATI 31397 ZACK DIXON ON [facility] MODALITY INC INC 1/> AREAS HOT/COLD PACKS THERAPEUT 38884 ZACK DIXON IC PX 1/> 3 [facility] AREAS INC INC EACH 15 MIN EXERCISES THERAPEUT 84904 ZACK DIXON IC PX 1/> 3 [facility] AREAS INC INC EACH 15 MIN EXERCISES E-STIM G0283 ZACK DIXON 1/> AREAS [facility] OTH THAN INC INC WND CARE PART TX PLAN E-STIM G0283 ZACK DIXON 1/> AREAS [facility] OTH THAN INC INC WND CARE PART TX PLAN THERAPEUT 54307 ZACK DIXON IC PX 1/> 3 [facility] AREAS INC INC EACH 15 MIN EXERCISES APPLICATI 04443 ZACK DIXON ON 3 [facility] MODALITY INC INC 1/> AREAS HOT/COLD PACKS APPL 81591 ZACK DIXON MODALITY 3 [facility]/> AREAS INC INC 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 CULTURE 11057 COMBINED COMBINED BACTERIAL 3 PHYSICIAN PHYSICIAN S LA S LA QUANTTATI VE COLONY COUNT URINE APPL 45726 ZACK DIXON MODALITY [facility]/> AREAS INC INC 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 APPLICATI 25345 ZACK DIXON ON [facility] MODALITY INC INC 1/> AREAS HOT/COLD PACKS THERAPEUT 95277 ZACK DIXON IC PX 1/> 3 [facility] AREAS INC INC EACH 15 MIN EXERCISES E-STIM G0283 ZACK DIXON 1/> AREAS [facility] OTH THAN INC INC WND CARE PART TX PLAN THERAPEUT 65816 ZACK DIXON IC PX 1/> 3 [facility] AREAS INC INC EACH 15 MIN EXERCISES APPL 61494 ZACK DIXON MODALITY 3 [facility] 1/> AREAS INC INC ULTRASOUN D EA 15 MIN THERAPEUT 49323 ZACK DIXON IC PX 1/> 3 [facility] INC INC EACH 15 MIN EXERCISES APPL 46472 ZACK DIXON MODALITY 3 [facility] MEM [facility] 1/> AREAS INC INC 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 G0283 ZACK DIXON 1/> [facility] OTH THAN INC INC WND CARE PART TX PLAN E-STIM G0283 ZACK DIXON 1/> [facility] OTH THAN INC INC WND CARE PART TX PLAN APPLICATI 49844 ZACK DIXON ON 3 [facility] MODALITY INC INC 1/> AREAS HOT/COLD PACKS APPL 04479 ZACK DIXON MODALITY 3 [facility] 1/> AREAS INC INC 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 09948 ZACK DIXON IC PX 1/> 3 [facility] INC INC EACH 15 MIN EXERCISES THERAPEUT 98092 ZACK DIXON IC PX 1/> 3 [facility]AS INC INC EACH 15 MIN EXERCISES APPLICATI 85032 ZACKSHANDA DIXON ON 3 [facility] MODALITY INC INC 1/> AREAS HOT/COLD PACKS APPL 25397 ZACK DIXON MODALITY 3 [facility] 1/> AREAS INC INC 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 G0283 ZACK ZACK 1/> [facility] OTH THAN INC INC WND CARE PART TX PLAN E-STIM G0283 ZACK ZACK 1/> [facility]AS [facility] OTH THAN INC INC WND CARE PART TX PLAN APPL 03742 ZACK ZACK MODALITY 3 [facility] 1/> AREAS INC INC 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 APPLICATI 02951 ZACK DIXON ON 3 [facility] MODALITY INC INC 1/> AREAS HOT/COLD PACKS APPL 99340 ZACK DIXON MODALITY 3 [facility] 1/> AREAS INC INC ULTRASOUN D EA 15 MIN THERAPEUT 55909 ZACK ZACK IC PX 1/> 3 [facility]AS INC INC EACH 15 MIN EXERCISES THERAPEUT 41542 ZACK ZACK IC PX 1/> 3 [facility] AREAS INC INC EACH 15 MIN EXERCISES APPL 00235 ZACK DIXON MODALITY 3 [facility] 1/> AREAS INC INC ULTRASOUN D EA 15 MIN APPL 92867 ZACK DIXON MODALITY 3 [facility] 1/> AREAS INC INC 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 G0283 ZACK DIXON 1/> AREAS 3 [facility] OTH THAN INC INC WND CARE PART TX PLAN E-STIM G0283 ZACK ZACK 1/> AREAS [facility] OTH THAN INC INC WND CARE PART TX PLAN COLLECTIO 09676 ZACK DIXON N VENOUS 3 [facility] BLOOD INC INC VENIPUNCT URE APPL 32301 ZACK DIXON MODALITY 3 [facility] 1/> AREAS INC INC 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 URNLS DIP 07070 ZACK DIXON 3 [facility] STICK/TAB INC INC LET REAGENT AUTO MICROSCOP Y APPL 62026 ZACK DIXON MODALITY 3 [facility] 1/> AREAS INC INC ULTRASOUN D EA 15 MIN THERAPEUT 44353 ZACK DIXON IC PX 1/> 3 [facility] AREAS INC INC EACH 15 MIN EXERCISES CULTURE 89998 ZACK DIXON BACTERIAL 3 [facility] INC INC QUANTTATI VE COLONY COUNT URINE PROTEIN 09195 ZACK DIXON ELECTROPH 3 [facility] ORETIC INC INC FRACTJ&QU ANTJ SERUM CULTURE 77489 ZACK DIXON BCT 3 [facility] ISOL&PRSM INC INC PTV ID ISOLATE EA URINE 25 38577 ZACK DIXON HYDROXY 3 [facility] INCLUDES [place] [address] ZACK DIXON PARATHORM 3 [facility] ONE INC INC RENAL 37735 ZACK DIXON FUNCTION 3 [facility] [place] [address] ZACK DIXON NEPHELOME 3 [facility] TRY EACH INC INC ANALYTE YANELY SUSCEPTIB 95377 ZACK DIXON LTY STDY 3 [facility] ANTIMICRB INC INC IAL MICRO/AGA R DILUTJ BLOOD 15064 ZACK DIXON COUNT 3 [facility] COMPLETE INC INC AUTO&AUTO DIFRNTL WBC APPLICATI 90819 ZACK DIXON ON 3 [facility] MODALITY INC INC 1/> AREAS HOT/COLD PACKS THERAPEUT 76961 ZACK DIXON IC PX 1/> 3 [facility] AREAS INC INC EACH 15 MIN EXERCISES APPL 06471 ZACK DIXON MODALITY 3 [facility] 1/> AREAS INC INC 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 G0283 ZACK DIXON 1/> AREAS 3 [facility] OTH THAN INC INC WND CARE PART TX PLAN E-STIM G0283 ZACK DIXON 1/> AREAS 3 [facility] OTH THAN INC INC WND CARE PART TX PLAN APPL 75610 ZACK DIXON MODALITY 3 [facility] 1/> AREAS INC INC 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 38788 ZACK DIXON IC PX 1/> 3 [facility] AREAS INC INC EACH 15 MIN EXERCISES APPLICATI 59936 ZACK DIXON ON 3 [facility] MODALITY INC INC 1/> AREAS HOT/COLD PACKS APPL 97760 ZACK DIXON MODALITY 3 [facility] 1/> AREAS INC INC ULTRASOUN D EA 15 MIN APPL 30823 ZACK DIXON MODALITY 3 [facility] 1/> AREAS INC INC ULTRASOUN D EA 15 MIN THERAPEUT 69544 ZACK DIXON IC PX 1/> 3 [facility] AREAS INC INC EACH 15 MIN EXERCISES APPL 31158 ZACK DIXON MODALITY 3 [facility] 1/> AREAS INC INC 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 G0283 ZACK DIXON 1/> AREAS 3 [facility] OTH THAN INC INC WND CARE PART TX PLAN E-STIM G0283 ZACK DIXON 1/> AREAS 3 [facility] OTH THAN INC INC WND CARE PART TX PLAN APPL 61501 ZACK DIXON MODALITY 3 [facility] 1/> AREAS INC INC 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 APPLICATI 00335 ZACK DIXON ON 3 [facility] MODALITY INC INC 1/> AREAS HOT/COLD PACKS THERAPEUT 88236 ZACK DIXON IC PX 1/> 3 [facility] AREAS INC INC EACH 15 MIN EXERCISES APPL 55356 ZACK DIXON MODALITY 3 [facility] 1/> AREAS INC INC ULTRASOUN D EA 15 MIN THERAPEUT 84496 ZACK DIXON IC PX 1/> 3 [facility] AREAS INC INC EACH 15 MIN EXERCISES APPL 25715 ZACK DIXON MODALITY 3 [facility] 1/> AREAS INC INC ULTRASOUN D EA 15 MIN APPL 75377 ZACK DIXON MODALITY 3 [facility] 1/> AREAS INC INC 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 BASIC 94179 COMBINED COMBINED METABOLIC 3 PHYSICIAN PHYSICIAN PANEL S LA S LA CALCIUM TOTAL APPL 11499 ZACK DIXON MODALITY 3 [facility] 1/> AREAS INC INC 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 33227 ZACK DIXON IC PX 1/> 3 [facility] AREAS INC INC EACH 15 MIN EXERCISES APPL 86775 ZACK DIXON MODALITY 3 [facility] 1/> AREAS INC INC ULTRASOUN D EA 15 MIN E-STIM G0283 ZACK DIXON 1/> AREAS 3 [facility] OTH THAN INC INC WND CARE PART TX PLAN E-STIM G0283 ZACK DIXON 1/> AREAS 3 [facility] OTH THAN INC INC WND CARE PART TX PLAN THERAPEUT 45672 ZACK DIXON IC PX 1/> 3 [facility] AREAS INC INC EACH 15 MIN EXERCISES APPL 69463 ZACK DIXON MODALITY 3 [facility] 1/> AREAS INC INC ULTRASOUN D EA 15 MIN APPL 68828 ZACK DIXON MODALITY 3 [facility] 1/> AREAS INC INC 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 APPLICATI 85203 ZACK DIXON ON 3 [facility] MODALITY INC INC 1/> AREAS HOT/COLD PACKS APPL 87116 ZACK DIXON MODALITY 3 [facility] 1/> AREAS INC INC ULTRASOUN D EA 15 MIN THERAPEUT 23846 ZACK DIXON IC PX 1/> 3 [facility] AREAS INC INC EACH 15 MIN EXERCISES E-STIM G0283 ZACK DIXON 1/> AREAS 3 [facility] OTH THAN INC INC WND CARE PART TX PLAN E-STIM G0283 ZACK DIXON 1/> AREAS 3 [facility] OTH THAN INC INC WND CARE PART TX PLAN THERAPEUT 82217 ZACK ZACK IC PX 1/> 3 [facility] AREAS INC INC EACH 15 MIN EXERCISES APPL 12599 ZACK DIXON MODALITY 3 [facility] 1/> AREAS INC INC ULTRASOUN D EA 15 MIN THERAPEUT 09662 ZACK DIXON IC PX 1/> 3 [facility] AREAS INC INC EACH 15 MIN EXERCISES APPL 11117 AZCK DIXON MODALITY 3 [facility] 1/> AREAS INC INC 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 G0283 ZACK DIXON 1/> AREAS 3 [facility] OTH THAN INC INC WND CARE PART TX PLAN E-STIM G0283 ZACK DIXON 1/> AREAS 3 [facility] OTH THAN INC INC WND CARE PART TX PLAN APPLICATI 81730 ZACK DIXON ON 3 [facility] MODALITY INC INC 1/> AREAS HOT/COLD PACKS THERAPEUT 86955 ZACK DIXON IC PX 1/> 3 [facility] AREAS INC INC EACH 15 MIN EXERCISES THERAPEUT 42726 ZACK DIXON IC PX 1/> 3 [facility] AREAS INC INC EACH 15 MIN EXERCISES APPL 67687 ZACK DIXON MODALITY 3 [facility] 1/> AREAS INC INC ULTRASOUN D EA 15 MIN APPL 31302 ZACK DIXON MODALITY 3 [facility] 1/> AREAS INC INC 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 G0283 ZCAK DIXON 1/> AREAS 3 [facility] OTH THAN INC INC WND CARE PART TX PLAN E-STIM G0283 ZACK DIXON 1/> AREAS 3 [facility] OTH THAN INC INC WND CARE PART TX PLAN APPLICATI 92289 ZACK DIXON ON 3 [facility] MODALITY INC INC 1/> AREAS HOT/COLD PACKS APPL 47193 ZACK DIXON MODALITY 3 [facility] 1/> AREAS INC INC 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 36783 ZACK DIXON IC PX 1/> 3 [facility] AREAS INC INC EACH 15 MIN EXERCISES APPL 11715 ZACK DIXON MODALITY 3 [facility] 1/> AREAS INC INC ULTRASOUN D EA 15 MIN APPL 43007 ZACK ZACK MODALITY 3 [facility] 1/> AREAS INC INC ULTRASOUN D EA 15 MIN APPL 23057 ZACK DIXON MODALITY 3 [facility] 1/> AREAS INC INC 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 APPLICATI 97770 ZACK DIXON ON 3 [facility] MODALITY INC INC 1/> AREAS HOT/COLD PACKS E-STIM G0283 ZACK DIXON 1/> AREAS 3 [facility] OTH THAN INC INC WND CARE PART TX PLAN E-STIM G0283 ZACK DIXON 1/> AREAS 3 [facility] OTH THAN INC INC WND CARE PART TX PLAN APPLICATI 37868 ZACK DIXON ON 3 [facility] MODALITY INC INC 1/> AREAS HOT/COLD PACKS APPL 49719 ZACK DIXON MODALITY 3 [facility] 1/> AREAS INC INC 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 80475 ZACK DIXON IC PX 1/> 3 [facility] AREAS INC INC EACH 15 MIN EXERCISES APPL 35495 ZACK DIXON MODALITY 3 [facility] 1/> AREAS INC INC ULTRASOUN D EA 15 MIN APPL 37064 ZACK DIXON MODALITY 3 [facility] 1/> AREAS INC INC ULTRASOUN D EA 15 MIN THERAPEUT 27242 ZACK DIXON IC PX 1/> 3 [facility] AREAS INC INC EACH 15 MIN EXERCISES APPL 05393 ZACK DIXON MODALITY 3 [facility] 1/> AREAS INC INC 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 APPLICATI 71827 ZACK DIXON ON 3 [facility] MODALITY INC INC 1/> AREAS HOT/COLD PACKS E-STIM G0283 ZACK DIXON 1/> AREAS 3 [facility] OTH THAN INC INC WND CARE PART TX PLAN APPLICATI 50707 ZACK DIXON ON 3 [facility] MODALITY INC INC 1/> AREAS HOT/COLD PACKS APPL 73640 ZACK DIXON MODALITY 3 [facility] 1/> AREAS INC INC 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 PHYSICAL 12253 ZACK DIXON THERAPY 3 [facility] EVALUATIO INC INC N THERAPEUT 05011 ZACK DIXON IC PX 1/> 3 [facility] AREAS INC INC EACH 15 MIN EXERCISES APPL 53567 ZACK DIXON MODALITY 3 [facility] 1/> AREAS INC INC ULTRASOUN D EA 15 MIN RADEX HIP 60739 [facility] ASS COMPLETE MINIMUM 2 VIEWS BASIC 88573 COMBINED COMBINED METABOLIC 3 PHYSICIAN PHYSICIAN [place] [address] COMBINED COMBINED BLOOD/URI 3 PHYSICIAN PHYSICIAN C ACID S LA S LA BASIC 37378 ZACK ZACK METABOLIC 2 [facility] PANEL INC INC CALCIUM TOTAL BLOOD 09533 ZACK DIXON COUNT 2 [facility] COMPLETE INC INC AUTO&AUTO DIFRNTL WBC GLUC BLD 65510 ZACK DIXON GLUC MNTR 2 [facility] DEV INC INC CLEARED FDA SPEC HOME USE COLLECTIO 16688 ZACK DIXON N VENOUS 2 [facility] BLOOD INC INC [facility]CT [facility] G0378 ZACK DIXON OBSERVATI 2 [facility] ON [facility] ZACK ZACK OBSERVATI 2 [facility] ON INC INC SERVICE PER HOUR ECHO 94319 [facility] 2 DINA [facility] 2D CARDIOLOG W/WOM-MOD Y CLINIC E COMPL SPEC&COLR D COLLECTIO 24630 ZACK DIXON N VENOUS 2 [facility] BLOOD INC INC VENIPUNCT URE GLUC BLD 05193 ZACK DIXON GLUC MNTR 2 [facility] DEV INC INC CLEARED FDA SPEC HOME USE PULMONARY 74029 LIZZ WADE 2 MEDICAL MELIDA VENTILATI IMAGING ON & ASS PERFUSION IMAGING NONINVASI 90665 ZACK ZACK VE 2 [facility] EAR/PULSE INC INC OXIMETRY SINGLE DETER TECHNETIU A9567 ZACK Flanagan TC-99M 2 [facility] PENTETATE INC INC DX AEROSOL TO 75 MCI BLOOD 41584 ZACK DIXON COUNT 2 [facility] COMPLETE INC INC AUTO&AUTO DIFRNTL WBC TECHNETIU A9540 ZACK Flanagan TC-99M 2 [facility] MAA DX INC INC STDY DOSE UP TO [address] [place] [address] ZACK DIXON TROPONIN 2 [facility] QUANTITAT INC INC MARIBEL CREATINE 88616 ZACK DIXON KINASE MB 2 [facility] FRACTION INC INC ONLY BASIC 74168 ZACK DIXON METABOLIC 2 [facility] PANEL INC INC CALCIUM TOTAL CREATINE 96231 ZACK DIXON KINASE 2 [facility] TOTAL INC INC CREATINE 98015 ZACK ZACK KINASE 2 [facility] TOTAL INC INC FIBRIN 69951 ZACK DIXON DGRADJ 2 [facility] PRODUCTS INC INC D-DIMER QUAL/SEMI BARB BASIC 67487 ZACK DIXON METABOLIC 2 [facility] PANEL INC INC CALCIUM TOTAL CREATINE 15495 ZACK ZACK KINASE MB 2 [facility] [place] [address] ZACK DIXON TROPONIN 2 [facility] QUANTITAT INC INC MARIBEL CULTURE 72732 ZACK DIXON BACTERIAL 2 [facility] BLOOD INC INC AEROBIC W/ID ISOLATES BLOOD 96036 ZACK DIXON COUNT 2 [facility] COMPLETE INC INC AUTO&AUTO DIFRNTL WBC GLUC BLD 56063 ZACK DIXON GLUC MNTR 2 [facility] DEV INC INC CLEARED FDA SPEC HOME USE URNLS DIP 18870 ZACK DIXON 2 [facility] STICK/TAB INC INC LET REAGENT AUTO MICROSCOP Y NATRIURET 59001 ZACK DIXON IC 2 [facility] PEPTIDE INC INC THERAPEUT 84208 ZACK DIXON IC 2 [facility] PROPHYLAC INC INC TIC/DX INJECTION SUBQ/IM ECG 90018 ZACK MCLEAN ROUTINE 2 [facility] W/LEAST P 12 LDS I&R ONLY RADIOLOGI 61410 ZACK ZACK C EXAM 2 [facility] CHEST 2 INC INC VIEWS [facility]ONTAL&L [facility] G0378 ZACK ZACK OBSERVATI 2 [facility] ON INC INC SERVICE PER HOUR ECG 09110 ZACK ZACK ROUTINE 2 [facility] ECG INC INC W/LEAST 12 LDS TRCG ONLY W/O I&R COLLECTIO 53906 ZACK DIXON N VENOUS 2 [facility] BLOOD INC INC VENIPUNCT URE BLOOD 83794 ZACK DIXON COUNT 2 [facility] COMPLETE INC INC AUTO&AUTO DIFRNTL WBC BASIC 35336 ZACK DIXON METABOLIC 2 [facility] PANEL INC INC CALCIUM TOTAL THERAPEUT 33421 ZACK DIXON IC 2 [facility] PROPHYLAC INC INC TIC/DX INJECTION SUBQ/IM INJECTION J0897 ZCAK ZACK 2 [facility] DENOSUMAB INC INC 1 MG DXA BONE 86937 [facility] DENSITY 2 MEDICAL MELIDA STUDY 1/> IMAGING SITES ASS AXIAL SKEL URNLS DIP 85757 ZACK DIXON 2 [facility] STICK/TAB INC INC [place] [address] ZACK DIOXN PARATHORM 2 [facility] ONE INC INC 25 26882 ZACK DIXON HYDROXY 2 [facility] INCLUDES INC INC FRACTIONS IF PERFORMED CREATININ 23286 ZACK DIXON E OTHER 2 [facility] SOURCE INC INC RENAL 63384 ZACK DIXON FUNCTION 2 [facility] PANEL INC INC PROTEIN 24828 ZACK DIXON XCPT 2 [facility] REFRACTOM INC INC ETRY SERUM PLASMA/WH L BLD BLOOD 88220 ZACK DIXON COUNT 2 [facility] COMPLETE INC INC AUTO&AUTO DIFRNTL WBC COLLECTIO 70506 ZACK DIXON N VENOUS 2 [facility] BLOOD INC INC VENIPUNCT URE CONTINUOU E0601 REID AMTHEWS S 2 HOME HOME POSITIVE MEDICAL MEDICAL AIRWAY EQUIPME EQUIPME PRESSURE DEVICE CONTINUOU E0601 REID MATHEWS S 2 HOME HOME POSITIVE MEDICAL MEDICAL AIRWAY EQUIPME EQUIPME PRESSURE DEVICE TUBING A7037 REID MATHEWS USED WITH 2 HOME HOME POSITIVE MEDICAL MEDICAL AIRWAY EQUIPME EQUIPME PRESSURE DEVICE HUMDIFIR [id number] REID MATHEWS HEATED 2 HOME HOME USED MEDICAL MEDICAL W/POS EQUIPME EQUIPME ARWAY PRESSURE DEVICE FILTER A7038 REID MATHEWS DISPBL 2 HOME HOME USED MEDICAL MEDICAL W/POS EQUIPME EQUIPME ARWAY PRESSURE DEVICE FILTER A7039 REID MATHEWS NON 2 HOME HOME DISPBL MEDICAL MEDICAL USED EQUIPME EQUIPME W/POS ARWAY PRESS DEVICE NASL A7034 REIDJOHN MATHEWS INTRFCE 2 HOME HOME POS ARWAY MEDICAL MEDICAL PRSS EQUIPME EQUIPME DEVC W/WO HEAD STRAP HEADGEAR A7035 REID MATHEWS USED 2 HOME HOME W/POSITIV MEDICAL MEDICAL E AIRWAY EQUIPME EQUIPME PRESSURE DEVICE MYOCARDIA 60659 [facility] SPECT 2 [facility] MULTIPLE CARDIOLOG STUDIES Y CLINIC CV STRS 24446 [facility] TST 2 PHYSICIAN XERS&/OR S GROUP RX CONT ECG W/O I&R CV STRS 17541 ZACK ZAPATA TST 2 [facility] XERS&/OR HOSPITAL RX CONT P ECG I&R ONLY POLYSOM 25670 ZACK DIXON 6/>YRS 2 [facility] SLEEP INC INC W/CPAP 4/> ADDL HARSHIL ATTND CULTURE 46746 ZACK DIXON BCT 2 [facility] ISOL&PRSM INC INC PTV ID ISOLATE EA URINE CULTURE 62844 ZACK DIXON BACTERIAL 2 [facility] INC INC QUANTTATI VE COLONY COUNT URINE SUSCEPTIB 42975 ZACK DIXON LTY STDY 2 [facility] ANTIMICRB INC INC IAL MICRO/AGA R DILUTJ CREATININ 62797 ZACK Viveros OTHER 2 [facility] SOURCE INC INC RENAL 25492 ZACK DIXON FUNCTION 2 [facility] PANEL INC INC BLOOD 61859 ZACK DIXON COUNT 2 [facility] COMPLETE INC INC AUTO&AUTO DIFRNTL WBC PROTEIN 57010 ZACK DIXON XCPT 2 [facility] REFRACTOM INC INC ETRY SERUM PLASMA/WH L BLD 25 12282 ZACK DIXON HYDROXY 2 [facility] INCLUDES INC [place] [address] ZACK DIXON PARATHORM 2 [facility] ONE INC INC URNLS DIP 40768 ZACK DIXON 2 [facility] STICK/TAB INC INC LET REAGENT AUTO MICROSCOP Y COLLECTIO 91402 ZACK DIXON N VENOUS 2 [facility] BLOOD INC INC VENIPUNCT URE LANCETS A4259 REID GLASSRELL PER BOX 2 HOME HOME OF 100 MEDICAL MEDICAL EQUIPME EQUIPME BLD GLU A4253 REID GLASSRELL TEST/REAG 2 HOME HOME T STRIPS MEDICAL MEDICAL HOME BLD EQUIPME EQUIPME GLU MON-50 POLYSOM 94491 ESTIVEN JEAN-BAPTISTE 6/>YRS 2 [facility] SLEEP 4/> ADDL HARSHIL ATTND POLYSOM 52955 ZACK DIXON 6/>YRS 2 [facility] SLEEP 4/> INC INC ADDL HARSHIL ATTND URNLS DIP 15663 ZACK DIXON 2 [facility] STICK/TAB INC INC LET REAGENT AUTO MICROSCOP Y 3D 16463 ZACK DIXON RENDERING 2 [facility] W/INTERP INC INC & POSTPROCE SS SUPERVISI ON BASIC 80845 ZACK DIXON METABOLIC 2 [facility] PANEL INC INC CALCIUM TOTAL CREATINE 47000 ZACK DIXON KINASE 2 [facility] TOTAL INC INC CREATINE 59167 ZACK DIXON KINASE MB 2 [facility] [place] [address] ZACK DIXON TROPONIN 2 [facility] QUANTITAT INC INC MARIBEL BLOOD 80715 ZACK DIXON COUNT 2 [facility] COMPLETE INC INC AUTO&AUTO DIFRNTL WBC ECG 26111 EMEKA ALFORD ROUTINE 2 EMERGENCY III NANCY ECG SERVICES W/LEAST 12 LDS I&R ONLY RADEX 45516 [facility] HAM[facility]RE SHERI SPINE 2 MEDICAL MEL[facility] THORACIC IMAGING 3 VIEWS ASS RADIOLOGI 52976 ZACK DIXON C 2 [facility] EXAMINATI INC [place] [address] ZACK DIXON HEAD/BRAI 2 [facility] N W/O INC INC CONTRAST MATERIAL ECG 67579 ZACK DIXON ROUTINE 2 [facility] ECG INC INC W/LEAST 12 LDS TRCG ONLY W/O I&R RADEX 16169 NEW HAMPSHIRE SHERI SPINE 2 MEDICAL MELIDA LUMBOSACR IMAGING AL ASS MINIMUM 4 VIEWS RADIOLOGI 99691 [facility]AM[facility]RE SHERI C EXAM 2 MEDICAL [facility] SKULL IMAGING COMPLETE ASS MINIMUM 4 VIEWS RADEX 40889 ZACK DIXON SPINE 2 [facility] CERVICAL INC [place] 6 [place] [address] ZACK DIXON IRON 2 [place] [address] ZACK DIXON FOLIC 2 [facility] ACID INC INC SERUM 25 86947 ZACK DIXON HYDROXY 2 [facility] INCLUDES INC [place] [address] ZACK DIXON BLOOD/URI 2 [facility] [place] [address] ZACK DIXON PHOSPHORU 2 [facility] S INC INC INORGANIC CYANOCOBA 59921 ZACK DIXON SOHA 2 [facility] VITAMIN INC INC B-12 BASIC 83999 ZACK DIXON METABOLIC 2 [facility] [place] [address] ZACK DIXON FERRITIN 2 [place] [address] ZACK DIXON PARATHORM 2 [facility] ONE INC INC IRON 21614 ZACK DIXON BINDING 2 [facility] CAPACITY INC INC IRRIGAJ 54979 ZACK DIXON IMPLNTD 2 [facility] VENOUS INC INC ACCESS DRUG DELIVERY SYST GLUC BLD 37119 ZACK DIXON GLUC MNTR 2 [facility] DEV INC INC CLEARED FDA SPEC HOME USE GLUC BLD 71785 ZACK DIXON GLUC MNTR 2 [facility] DEV INC INC CLEARED FDA SPEC HOME USE NONINVASI 98020 ZACK DIXON VE 2 [facility] EAR/PULSE INC INC OXIMETRY SINGLE DETER BASIC 59536 ZACK DIXON METABOLIC 2 [facility] PANEL INC INC CALCIUM TOTAL BLOOD 65475 ZACK DIXON COUNT 2 [facility] COMPLETE INC INC AUTO&AUTO DIFRNTL [facility] G0378 ZACK DIXON OBSERVATI 2 [facility] ON INC INC SERVICE [facility] G0378 ZACK DIXON OBSERVATI 2 [facility] ON INC INC SERVICE PER HOUR ECG 73685 ZACK DIXON ROUTINE 2 [facility] ECG INC INC W/LEAST 12 LDS TRCG ONLY W/O I&R ECHO 81018 [facility] R-T 2 [facility] 2D CARDIOLOG W/WOM-MOD Y CLINIC E COMPL SPEC&COLR D ECG 72879 ZACK MCLEAN ROUTINE 2 [facility] W/LEAST P 12 LDS I&R ONLY RADIOLOGI 44502 [place] [facility]I C EXAM 2 [facility] CHEST 2 IMAGING VIEWS ASS FRONTAL&L ATERAL BLOOD 13318 ZACK DIXON COUNT 2 [facility] COMPLETE INC INC AUTO&AUTO DIFRNTL WBC TECHNETIU A9567 ZACK Flanagan TC-99M 2 [facility] PENTETATE INC INC DX AEROSOL TO [address] [place] [address] ZACK DIXON TROPONIN 2 [facility] QUANTITAT INC INC MARIBEL CREATINE 58889 ZACK DIXON KINASE MB 2 [facility] FRACTION INC INC ONLY BASIC 05072 ZACK DIXON METABOLIC 2 [facility] PANEL INC INC CALCIUM TOTAL TECHNETIU A9540 ZACK DIXON M TC-99M 2 [facility] MAA DX INC INC STDY DOSE UP TO 10 MCI CREATINE 20886 ZACK DIXON KINASE 2 [facility] TOTAL INC INC NONINVASI 16718 ZACK DIXON VE 2 [facility] EAR/PULSE INC INC OXIMETRY SINGLE DETER PULMONARY 13519 LIZZ WADE 2 [facility] VENTILATI IMAGING ON & ASS PERFUSION IMAGING INITIAL 19150 [facility] 2 PHYSICIAN CARE/DAY S GROUP 50 MINUTES GLUC BLD 75485 ZACK DIXON GLUC MNTR 2 [facility] DEV INC INC CLEARED FDA SPEC HOME USE URNLS DIP 48709 [facility]ACK DIXON 2 [facility] STICK/TAB INC INC LET REAGENT AUTO MICROSCOP Y NATRIURET 99902 [facility]ACK DIXON IC 2 [facility] PEPTIDE INC INC THERAPEUT 49190 ZACK ZACK IC 2 [facility] PROPHYLAC INC INC TIC/DX INJECTION SUBQ/IM CREATINE 77121 ZACK DIXON KINASE 2 [facility] TOTAL INC INC CULTURE 92482 [facility] DIXON BCT 2 [facility] ISOL&PRSM INC INC PTV ID ISOLATE EA URINE FIBRIN 73172 ZACK DIXON DGRADJ 2 [facility] PRODUCTS INC INC D-DIMER QUAL/SEMI BARB CULTURE 37627 ZACK DIXON BACTERIAL 2 [facility] INC INC QUANTTATI VE COLONY COUNT URINE CREATINE 96796 ZACK DIXON KINASE MB 2 [facility] [place] [address] ZACK DIXON TROPONIN 2 [facility] QUANTITAT INC INC MARIBEL COMPREHEN 20875 ZACK DIXON SIVE 2 [facility] METABOLIC INC INC PANEL BLOOD 20988 ZACK DIXON COUNT 2 [facility] COMPLETE INC INC AUTO&AUTO DIFRNTL WBC CULTURE 04543 [facility]ACK DIXON BACTERIAL 2 [facility] BLOOD INC INC AEROBIC W/ID ISOLATES SUSCEPTIB 34075 ZACK DIXON LTY STDY 2 [facility] ANTIMICRB INC INC IAL MICRO/AGA R DILUTJ ECG 43455 EMEKA BRENDEN ROUTINE 2 [facility] ECG SERVICES W/LEAST 12 LDS I&R [facility] EXAMINATI IMAGING ON CHEST ASS [place] FRONTAL ECG 94270 ZACK DIXON ROUTINE 2 [facility] ECG INC INC W/LEAST 12 LDS TRCG ONLY W/O I&R LANCETS A4259 REID MATHEWS PER BOX 2 [...] GLUCOSE MEDICAL MEDICAL MONITOR EQUIPME EQUIPME RADIOLOGI 99797 [facility] C 2 [facility] EXAMINATI IMAGING ON CHEST ASS S[place] FRONTAL VENOUS 3893 ZACK DIXON CATHETERI 2 [facility] ZATION INC INC NOT ELSEWHERE CLASSIFIE D RADIOLOGI 96580 [facility] SH[facility]I C EXAM 2 [facility] CHEST 2 IMAGING VIEWS ASS FRONTAL&L ATERAL RADIOLOGI 61141 [facility] SH[facility]I C EXAM 2 [facility] CHEST 2 IMAGING VIEWS ASS FRONTAL&L ATERAL RADIOLOGI 57761 [facility] SH[facility]I C 2 [facility] EXAMINATI IMAGING ON KNEE 3 ASS VIEWS COLLECTIO 07715 FAMILY STRAWZELL N VENOUS 2 CARE CRI BLOOD ASSOCIATE VENIPUNCT S, [facility] URE HANDLG&/O 53313 FAMILY STRAWZELL R CONVEY 2 CARE CRI OF SPEC ASSOCIATE FOR TR S, [facility] [place] [address] [facility] RETR[facility]I 2 MEDICAL MELIDA TONEAL IMAGING REAL TIME ASS W/IMAGE COMPLETE BLOOD 85159 FAMILY STRAWZELL COUNT 2 CARE CRI COMPLETE ASSOCIATE AUTO&AUTO S, PSC DIFRNTL WBC COMPREHEN 15028 COMBINED COMBINED SIVE 2 PHYSICIAN PHYSICIAN [place] [address] COMBINED COMBINED BLOOD/URI 2 PHYSICIAN PHYSICIAN C ACID S LA S LA ANTINUCLE 98004 LAB ZOEY LAB ZOEY AR 2 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 YUNG RHEUMATOI 65656 COMBINED COMBINED D FACTOR 2 PHYSICIAN PHYSICIAN QUALITATI S LA S LA VE SEDIMENTA 99447 COMBINED COMBINED TION RATE 2 PHYSICIAN PHYSICIAN RBC S LA S LA NON-AUTOM ATED CYANOCOBA 61036 COMBINED COMBINED SOHA 2 PHYSICIAN PHYSICIAN VITAMIN S LA S LA B-12 [place] [address] COMBINED COMBINED THYROID 2 PHYSICIAN PHYSICIAN STIMULATI S LA S LA NG HORMONE TSH 25 86242 COMBINED COMBINED HYDROXY 2 PHYSICIAN PHYSICIAN INCLUDES S LA S LA FRACTIONS IF PERFORMED COMPREHEN 67458 COMBINED COMBINED SIVE 2 PHYSICIAN PHYSICIAN METABOLIC S LA S LA PANEL LIPID 37839 FAMILY STRAWZELL PANEL 2 CARE CRI ASSOCIATE S, PSC HEMOGLOBI 94186 FAMILY STRAWZELL N 2 CARE CRI GLYCOSYLA ASSOCIATE ALEX A1C S, PSC HANDLG&/O 80281 FAMILY STRAWZELL R CONVEY 2 CARE CRI OF SPEC ASSOCIATE FOR TR S, PSC OFFICE TO LAB COLLECTIO 60372 FAMILY STRAWZELL N VENOUS 2 CARE CRI BLOOD ASSOCIATE VENIPUNCT S, PSC URE RADIOLOGI 44065 ZACK DIXON C EXAM 2 [facility] CHEST 2 INC INC VIEWS FRONTAL&L ATERAL DUP-SCAN 71884 ZACK DIXON XTR VEINS 2 [facility] INC INC UNILATERA L/LIMITED STUDY COLLECTIO 65283 ZACK DIXON N VENOUS 2 [facility] BLOOD INC INC VENIPUNCT URE URNLS DIP 28887 ZACK DIXON 2 [facility] STICK/TAB INC INC LET REAGENT AUTO MICROSCOP Y HEPATIC 45318 ZACK DIXON FUNCTION 2 [facility] PANEL INC INC RENAL 28314 ZACK DIXON FUNCTION 2 [facility] PANEL INC INC BLOOD 97415 ZACK DIXON COUNT 2 [facility] COMPLETE INC INC AUTO&AUTO DIFRNTL WBC DEBRIDEME 82334 PAWSAT PAWSAT NT NAIL 2 MAR MAR ANY METHOD 1-5 THERAPEUT 26123 ZACK DIXON IC 1 [facility] PROPHYLAC INC INC TIC/DX INJECTION SUBQ/IM BASIC 74676 ZACK DIXON METABOLIC 1 [facility] PANEL INC INC CALCIUM TOTAL COLLECTIO 71625 ZACK DIXON N VENOUS 1 [facility] BLOOD INC INC VENIPUNCT URE COLLECTIO 87033 ZACK DIXON N VENOUS 1 [facility] BLOOD INC INC VENIPUNCT URE BASIC 95453 ZACK DIXON METABOLIC 1 [facility] PANEL INC INC CALCIUM TOTAL THERAPEUT 71116 ZACK DIXON IC 1 [facility] PROPHYLAC INC INC TIC/DX INJECTION SUBQ/IM URNLS DIP 79404 ZACK DIXON 1 [facility] STICK/TAB INC INC [place] [address] ZACK DIXON PARATHORM 1 [facility] ONE INC INC 25 50301 ZACK DIXON HYDROXY 1 [facility] INCLUDES INC INC FRACTIONS IF PERFORMED PROTEIN 08324 ZACK DIXON ELECTROPH 1 [facility] ORETIC INC INC FRACTJ&QU ANTJ SERUM RENAL 91821 ZACK DIXON FUNCTION 1 [facility] PANEL INC INC PROTEIN 18674 ZACK DIXON XCPT 1 [facility] REFRACTOM INC INC ETRY SERUM PLASMA/WH L BLD CREATININ 88982 ZACK DIXON E OTHER 1 [facility] SOURCE INC INC BLOOD 62991 ZACK DIXON COUNT 1 [facility] COMPLETE INC INC AUTO&AUTO DIFRNTL WBC COLLECTIO 36418 ZACK DIXON N VENOUS 1 [facility] BLOOD INC INC VENIPUNCT URE COLLECTIO 01646 AZCK DIXON N VENOUS 1 [facility] BLOOD INC INC VENIPUNCT URE BASIC 03914 ZACK DIXON METABOLIC 1 [facility] PANEL INC INC CALCIUM TOTAL RADIOLOGI 02698 ZACK DIXON C EXAM 1 [facility] BOTH INC INC KNEES STANDING ANTEROPOS T INJECTION J1030 [facility] 1 ROUND O METHYLPRE CLINIC DNISOLONE PSC ACETATE 40 MG ARTHROCEN 84358 [facility] SON TESIS 1 ROUND O ASPIR&/IN CLINIC J MAJOR PSC JT/BURSA W/O US OPHTH 59732 [facility] MEDICAL 1 VISION XM&EVAL COMPRHNSV ESTAB PT 1/> [place] [address] ZACK DIXON RETROPERI 1 [facility] TONEAL INC INC REAL TIME W/IMAGE COMPLETE DXA BONE 03960 ZACK DIXON DENSITY 1 [facility] STUDY 1/ INC INC SITES AXIAL SKEL NON-INVAS 74373 NEW HAMPSHIRE SHERI MARIBEL 1 MEDICAL MELIDA PHYSIOLOG IMAGING IC STUDY ASS EXTREMITY 3 LEVLS BASIC 49077 COMBINED COMBINED METABOLIC 1 PHYSICIAN PHYSICIAN [place] [address] COMBINED COMBINED PARATHORM 1 PHYSIC[place] [address] COMBINED COMBINED PHOSPHORU 1 PHYSICIAN PHYSICIAN S S LA S LA INORGANIC 25 36090 COMBINED COMBINED HYDROXY 1 PHYSICIAN PHYSICIAN INCLUDES S LA S LA FRACTIONS IF PERFORMED BLD GLU A4253 REID MATHEWS TEST/REAG 1 HOME MED HOME MED T STRIPS EQUIP. L EQUIP. L HOME BLD GLU MON-50 LANCETS A4259 REID MATHEWS PER BOX 1 HOME MED HOME MED OF 100 EQUIP. L EQUIP. L COLLECTIO 03109 ZACK Yoo VENOUS 1 [facility]OS[place] [address] [facility] ABDOMEN 1 MEDICAL MELIDA W/O IMAGING CONTRAST ASS MATERIAL 3D 54046 NEW HAMPSHIRE SHERI RENDERING 1 MEDICAL MELIDA IMAGING W/INTERP& ASS POSTPROC DIFF WORK STATION CREATININ 10327 ZACK ZACK E BLOOD 1 [place] [address] ZACK DIXON UREA 1 [facility] NITROGEN INC INC QUANTITAT MARIBEL TECHNETIU A9537 ZACK ZACK Masha TC-99M 1 [facility] MEBROFENI INC INC N DX UP TO 15 MCI HEPATBL 18240 NEW HAMPSHIRE SHERI DUX SYS 1 MEDICAL [place] [address] NEW HAMPSHIRE SHERI ABDOMINAL 1 MEDICAL MELIDA REAL IMAGING TIME ASS W/IMAGE LIMITED COMPREHEN 90278 COMBINED COMBINED SIVE 1 PHYSICIAN PHYSICIAN METABOLIC S LA S LA PANEL COLLECTIO 06104 COMBINED COMBINED N VENOUS 1 PHYSICIAN PHYSICIAN BLOOD S LA S LA VENIPUNCT URE COLLECTIO 04168 FAMILY MULBERRY N VENOUS 1 CARE NILO BLOOD ASSOCIATE VENIPUNCT S URE COMPREHEN 35294 COMBINED COMBINED SIVE 1 PHYSICIAN PHYSICIAN [place] [address] COMBINED COMBINED THYROID 1 PHYSICIAN PHYSICIAN STIMULATI [place] [address] LAB ZOEY LAB ZOEY LIPASE 1 [employer]IC [employer] HOLDING BLOOD 85481 FAMILY MULBERRY COUNT 1 CARE NILO COMPLETE ASSOCIATE AUTO&[place] [address] COMBINED COMBINED AMYLASE 1 PHYSICIAN PHYSICIAN S LA S LA HEMOGLOBI 67188 FAMILY MULBERRY N 1 CARE NILO GLYCOSYLA ASSOCIATE ALEX A1C S RADIOLOGI 83057 NEW HAMPSHIRE MICH EXAM 1 MEDICAL CARLOS CHEST 2 IMAGING VIEWS ASS FRONTAL&L ATERAL BASIC 33549 COMBINED COMBINED METABOLIC 1 PHYSICIAN PHYSICIAN PANEL S LA S LA CALCIUM TOTAL COLLECTIO 05629 FAMILY BRENDAN J N VENOUS 1 CARE BLOOD ASSOCIATE VENIPUNCT S URE RADIOLOGI 14044 ZACK DIXON C EXAM 0 [facility] CHEST 2 INC INC VIEWS FRONTAL&[place] [address] ZACK DIXON STREPTOCO 0 [facility] CCUS INC INC GROUP A IAADI 67339 ZACK DIXON INFLUENZA 0 [facility] B VIRUS INC INC IAADI 37780 ZACK DIXON INFFLUENZ 0 [facility] A A VIRUS INC INC URNLS DIP 59998 ZACK DIXON 0 [facility] STICK/TAB INC INC LET REAGENT AUTO MICROSCOP Y PRESSURIZ 01171 ZACK DIXON ED/NONPRE 0 [facility] SSURIZED INC INC INHALATIO N TREATMENT COMPREHEN 15395 COMBINED COMBINED SIVE 0 PHYSICIAN PHYSICIAN [place] [address] COMBINED COMBINED THYROID 0 PHYSICIAN PHYSICIAN STIMULATI S LA S LA NG HORMONE TSH COLLECTIO 20626 FAMILY FAMILY N VENOUS 0 CARE CARE BLOOD ASSOCIATE ASSOCIATE VENIPUNCT S S URE FUNDUS 03668 PETERS LANNY ROBERTSONNES LANNY PHOTOGRAP 0 HY W/INTERPR ETATION & REPORT OPHTH 70694 PETERS LANNY ROBERTSONNES LANNY MEDICAL 0 XM&EVAL COMPRHNSV ESTAB PT 1/> FOR DIAB A5513 WELLNESS WELLNESS ONLY MX 0 LIFE LIFE DNSITY SYSTEMS [employer] CSTM MOLD CSTM EA DIAB ONLY A5500 WELLNESS WELLNESS FIT CSTM 0 LIFE LIFE PREP&SPL SYSTEMS SYSTEMS SHOE [employer] LLC DNSITY INSRT RADIOLOGI 87186 NEW HAMPSHIRE SHERI C 0 MEDICAL MELIDA EXAMINATI IMAGING ON ANKLE ASS 2 VIEWS RADIOLOGI 36859 NEW HAMPSHIRE SHERI C 0 MEDICAL MELIDA EXAMINATI IMAGING ON ANKLE ASS 2 VIEWS WALKING L4360 [employer] BOOT 0 TECHNOLOG TECHNOLOG PNEUMATC IES INC IES INC &/ VACUUM PREFAB CUSTM FIT RADIOLOGI 34770 ZACK DIXON C 0 [facility] EXAMINATI INC INC ON FOOT 2 VIEWS RADEX 55046 NEW HAMPSHIRE SHERI FOOT 0 MEDICAL MELIDA COMPLETE IMAGING MINIMUM 3 ASS VIEWS RADEX 19457 NEW HAMPSHIRE SHERI FOOT 0 MEDICAL MELIDA COMPLETE IMAGING MINIMUM 3 ASS VIEWS RADEX 78502 NEW HAMPSHIRE SHERI CALCANEUS 0 MEDICAL MELIDA MINIMUM IMAGING 2 VIEWS ASS RADIOLOGI 14340 NEW HAMPSHIRE SHERI C 0 MEDICAL MELIDA EXAMINATI IMAGING ON PELVIS ASS 1/2 VIEWS RADIOLOGI 93936 LIZZ BRIANUTCHER C 0 MEDICAL MELIDA EXAMINATI IMAGING ON TIBIA ASS & FIBULA 2 [place] [address] [facility] PETTEY 0 PHYSICIAN JAM CALCANEAL S GROUP FRACTURE W/[place] [address] EMEKA WILCOX 0 EMERGENCY CHIDI CALCANEAL SERVICES FRACTURE W/O MANIPULAT ION AMBULANCE A0429 [facility] SERVICE 0 AMBULANCE AMBULANCE BLS SERVICE SERVICE EMERGENCY TRANSPORT GROUND A0425 [facility] MILEAGE 0 AMBULANCE AMBULANCE PER SERVICE SERVICE STATUTE MILE HEMOGLOBI 78629 FAMILY MULBERRY N 0 CARE NILO GLYCOSYLA ASSOCIATE ALEX A1C S GLUCOSE 81099 FAMILY MULBERRY POST 0 CARE NILO GLUCOSE ASSOCIATE DOSE S 25 55802 LAB ZOEY LAB ZOEY HYDROXY 0 AMERIC AMERIC INCLUDES HOLD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 IF PERFORMED BLOOD 35403 FAMILY MULBERRY COUNT 0 CARE NILO COMPLETE ASSOCIATE AUTO&AUTO S DIFRNTL WBC PPSV23 79501 FAMILY FAMILY VACCINE 2 0 CARE CARE YRS OR ASSOCIATE ASSOCIATE OLDER FOR S S SUBQ/IM USE COLLECTIO 05716 FAMILY MULBERRY N VENOUS 0 CARE NILO BLOOD ASSOCIATE VENIPUNCT S URE ADMINISTR G0009 FAMILY MULBERRY ATION OF 0 CARE NILO PNEUMOCOC ASSOCIATE JORDYN S VACCINE LIPID 40914 COMBINED COMBINED PANEL 0 PHYSICIAN [place] [address] COMBINED COMBINED IRON 0 PHYSICIAN [place] [address] COMBINED COMBINED FOLIC 0 PHYSICIAN PHYSICIAN ACID S LAB S LAB SERUM CYANOCOBA 70410 COMBINED COMBINED SOHA 0 PHYSICIAN PHYSICIAN VITAMIN S LAB S LAB B-12 COMPREHEN 46227 COMBINED COMBINED SIVE 0 PHYSICIAN PHYSICIAN METABOL[place] [address] COMBINED COMBINED FERRITIN 0 PHYSICIAN PHYSICIAN S LAB S LAB BLOOD 99910 FAMILY MULBERRY, COUNT 0 CARE CLEO T COMPLETE ASSOCIATE AUTO&AUTO S DIFRNTL WBC HEMOGLOBI 37702 FAMILY MULBERRY, N 0 CARE CLEO T GLYCOSYLA ASSOCIATE ALEX A1C S COLLECTIO 92833 FAMILY ELIAS, N VENOUS 0 CARE CLEO T BLOOD ASSOCIATE VENIPUNCT S URE COLLECTIO 73442 FAMILY ELIAS, N VENOUS 0 CARE CLEO T BLOOD ASSOCIATE VENIPUNCT S URE BLOOD 31665 FAMILY ELIAS, COUNT 0 CARE CLEO T COMPLETE ASSOCIATE AUTO&AUTO S DIFRNTL WBC BASIC 83609 COMBINED COMBINED METABOLIC 0 PHYSICIAN PHYSICIAN PANEL S LAB S LAB CALCIUM [facility] [address] [facility] JADA, DISCHARGE 0 CARE CLEO T DAY ASSOCIATE MANAGEMEN S T > 30 MIN BLD GLU A4253 REID MATHEWS TEST/REAG 0 HOME MED HOME MED T STRIPS EQUIP. EQUIP. HOME BLD LLC LLC GLU MON-50 LANCETS A4259 REID GLASSRELL PER BOX 0 HOME MED HOME MED OF 100 EQUIP. EQUIP. LLC LLC RADIOLOGI 19041 NEW HAMPSHIRE John EPPS EXAM 0 MEDICAL XAVI P CHEST 2 IMAGING VIEWS ASSOCIATE FRONTAL&L S ATERAL SBSQ 42445 [facility] 0 CARE CLEO T CARE/DAY ASSOCIATE 25 S MINUTES INITIAL 48473 [facility] 0 CARE CLEO T CARE/DAY ASSOCIATE 50 [place] [address] NEW HAMPSHIRE SHERI, PART VNTJ 0 MEDICAL RAYMUNDO IMG IMAGING AERSL ASSOCIATE 1/STRATEGIC ACCOUNTS MANAGER S PRJCJ RADIOLOGI 87053 NEW HAMPSHIRE SHERI C EXAM 0 MEDICAL RAYMUNDO CHEST 2 IMAGING VIEWS ASSOCIATE FRONTAL&L S ATERAL ECG 86768 ZACK BARRETO, ROUTINE 0 [facility] ECG [facility] W/LEAST PROF SERV 12 LDS I&R ONLY ECHO 83460 [facility] DORITA [facility] R-T 0 PHYSICIAN MINNA Gardiner S GROUP W/WOM-MOD E COMPL SPEC&COLR D INTRO 82697 EMEKA WILCOX, NEEDLE/IN 0 EMERGENCY TAYA Min TRACAT SERVICES EXTREMITY ARTERY ASSOCIATE S AMB A0427 [facility] HERNANDEZ SERVICE 0 AMBULANCE AMBULANCE ALS SERVICE SERVICE EMERGENCY TRANSPORT LEVEL 1 GROUND A0425 [facility] 0 AMBULANCE AMBULANCE PER SERVICE SERVICE STATUTE MILE IAADIADOO 41343 FAMILY MULBERRY, 0 CARE CLEO T STREPTOCO ASSOCIATE CCUS S GROUP A ORTHOPANT 11047 LIZZ WADE, OGRAM 0 MEDICAL RAYMUNDO IMAGING ASSOCIATE S COLLECTIO 80317 ZACK DIXON N VENOUS 0 [facility] BLOOD INC INC VENIPUNCT URE RENAL 37189 ZACK DIXON FUNCTION 0 [facility] PANEL INC INC BLD GLU A4253 DIABETES DIABETES TEST/REAG 0 [facility] T [facility] LLC HOME BLD GLU MON-50 LANCETS A4259 DIABETES DIABETES PER BOX 0 [facility] OF 100 LLC LLC NORMAL A4256 DIABETES DIABETES LOW AND 0 [facility] C[facility]IGH [facility] LLC CALIBRATO R SOLUTION/ CHIPS COLLECTIO 47680 ZACK DIXON N VENOUS 9 [facility] BLOOD INC INC VENIPUNCT URE RENAL 05916 ZACK DIXON FUNCTION 9 [facility] PANEL INC INC ELECTRIC E0215 DIABETES DIABETES HEAT PAD 9 [facility] MOIST [facility] LLC BLD GLU A4253 DIABETES DIABETES TEST/REAG 9 [facility] CARE CLUB T [facility] LLC HOME BLD GLU MON-50 NORMAL A4256 DIABETES DIABETES LOW AND 9 [facility] CARE CLUB HIGH LLC LLC CALIBRATO R SOLUTION/ CHIPS LANCETS A4259 DIABETES DIABETES PER BOX 9 [facility] LLC COLLECTIO 80329 ZACK DIXON N VENOUS 9 [facility] [place] [address] ZACK DIXON RETROPERI 9 [facility] TONEAL INC INC REAL TIME W/IMAGE COMPLETE URNLS DIP 55603 ZACK DIXON 9 [facility] STICK/TAB INC INC LET REAGENT AUTO MICROSCOP Y RENAL 72575 ZACK DIXON FUNCTION 9 [facility] PANEL INC INC SUSCEPTIB 48355 ZACK DIXON LTY STDY 9 [facility] ANTIMICRB INC INC IAL MICRO/AGA R DILUTJ COMPLEMEN 68412 ZACK DIXON T 9 [facility] FUNCTIONA INC INC L ACTIVITY EACH COMPONENT CULTURE 89968 ZACK DIXON BCT 9 [facility] ISOL&PRSM INC INC PTV ID ISOLATE EA URINE ANTISTREP 59427 ZACK DIXON TOLYSIN O 9 [facility] SCREEN INC INC ANTINUCLE 08030 ZACK DIXON AR 9 [facility] [place] [address] ZACK DIXON BLOOD/URI 9 [facility] C ACID INC INC CULTURE 65119 ZACK DIXON BACTERIAL 9 [facility] INC INC QUANTTATI VE COLONY COUNT URINE BASIC 57518 ZACK DIXON METABOLIC 9 [facility] PANEL INC INC CALCIUM TOTAL COLLECTIO 15256 ZACK DIXON N VENOUS 9 [facility] BLOOD INC INC VENIPUNCT URE COLLECTIO 47211 ZACK DIXON N VENOUS 9 [facility] BLOOD INC INC VENIPUNCT URE COMPREHEN 35303 ZACK DIXON SIVE 9 [facility] [place] [address] ZACK DIXON THYROID 9 [facility] STIMULATI INC INC NG HORMONE TSH BLOOD 84252 ZACK DIXON COUNT 9 [facility] COMPLETE INC INC AUTO&AUTO DIFRNTL WBC BLD GLU A4253 DIABETES DIABETES TEST/REAG 9 [facility] C[facility] T STRIPS [facility] LLC HOME BLD GLU MON-50 LANCETS A4259 DIABETES DIABETES PER BOX 9 CARE CLUB CARE CLUB OF 100 LLC LLC NORMAL A4256 DIABETES DIABETES LOW AND 9 [facility] C[facility] CALIBRATO R SOLUTION/ CHIPS REPL KIM A4235 DIABETES DIABETES LITHIUM 9 CARE CLUB CARE CLUB MED NECES [facility] LLC LIBERTY BG MON OWN PT EA SPRING-PO A4258 DIABETES DIABETES WERED 9 CARE CLUB CARE CLUB DEVICE LLC LLC FOR LANCET EACH OPHTH 42189 LORRAINE PETERS, MEDICAL 9 GEE A GEE A XM&EVAL COMPRHNSV ESTAB PT 1/> COLLECTIO 34575 FAMILY MULBERRY, N VENOUS 9 CARE CLEO T BLOOD ASSOCIATE VENIPUNCT S URE HEMOGLOBI 86857 COMBINED COMBINED N 9 PHYSICIAN PHYSICIAN GLYCOSYLA S LAB S LAB ALEX A1C CREATININ 48704 FAMILY JADA, E OTHER 9 CARE CLEO Rollins SOURCE ASSOCIATE S ALBUMIN 25924 FAMILY JADA, URINE 9 CARE CLEO Rollins MICROALBU ASSOCIATE MIN S SEMIQUANT ITATIVE BLD GLU A4253 DIABETES DIABETES TEST/REAG 9 [...] LLC LLC HOME BLD GLU MON-50 MANUAL 95192 PROFESSIO CROSSFIEL THERAPY 8 NAL REHAB D, TQS 1/> ASSOC DANNITA REGIONS PSC EACH 15 MINUTES THERAPEUT 91037 PROFESSIO CROSSFIEL ACTVITY 8 NAL REHAB D, DIRECT PT ASSOC DANNITA CONTACT PSC EACH 15 MIN THERAPEUT 06651 PROFESSIO CROSSFIEL IC PX 1/> 8 NAL REHAB D, AREAS ASSOC DANNITA EACH 15 PSC MIN EXERCISES CANE E0105 REID MATHEWS QUAD/3-IA 8 HOME MED HOME MED GABINO ALL EQUIP. EQUIP. [employer] LLC LLC ADJUSTBL/ FIX W/TIPS MANUAL 71725 PROFESSIO CROSSFIEL THERAPY 8 NAL REHAB D, TQS 1/> ASSOC DANNITA REGIONS PSC EACH 15 MINUTES THERAPEUT 29129 PROFESSIO CROSSFIEL IC PX 1/> 8 NAL REHAB D, AREAS ASSOC DANNITA EACH 15 PSC MIN EXERCISES PHYSICAL 50425 PROFESSIO CROSSFIEL THERAPY 8 NAL REHAB D, EVALUATIO ASSOC DANNITA N PSC RADEX HIP 05643 ZACK DIXON 8 [facility] UNILATERA INC INC L COMPLETE MINIMUM 2 VIEWS RADEX 85428 LIZZ EPPS, SPINE 8 MEDICAL XAVI Mcdonald LUMBOSACR IMAGING AL ASSOCIATE MINIMUM 4 S VIEWS Encounters Encounter Start End Date Code Location Performer Type Date [facility] ZACK - 7 7 [facility] INPATIENT INC EMERGENCY 25786 RUDY JOINER DEPT 7 7 PHYSICIAN VISIT S, [facility] HIGH SEVERITY& THREAT [facility] ZACK - 6 6 [facility] OUTPATIEN INC T OFFICE 97867 [facility] GORDILLO OUTPATIEN 6 6 MEDICAL T VISIT SERV 25 FOUNDATIO MINUTES [facility] ZACK - 6 6 [facility] OUTPATIEN INC T EMERGENCY 51892 ZACK DEPT 6 6 [facility] VISIT INC HIGH SEVERITY& THREAT [facility] ZACK - OTHER 6 6 [facility] INC OFFICE 42074 CAMERON GORDILLO OUTPATIEN 6 6 MEDICAL T VISIT SERV 25 FOUNDATIO MINUTES [facility] ZACK - OTHER 6 6 [facility] INC OFFICE 25534 [place] WILL OUTPATIEN 6 6 [facility] CHARMAINE T VISIT INTERNAL 15 MEDI MINUTES OFFICE 42808 [facility]ON OUTPATIEN 6 6 [facility] TRACY T VISIT INTERNAL 15 MED MINUTES EMERGENCY 92096 RUDY CYR [facility] DEPT 6 6 PHYSICIAN VISIT S, [facility] HIGH SEVERITY& THREAT [facility] ZACK - 6 6 [facility] OUTPATIEN INC T EMERGENCY 25723 ZACK 6 6 [facility] DEPARTMEN INC T VISIT HIGH/URGE NT [facility] ZACK - 6 6 [facility] OUTPATIEN INC T EMERGENCY 38075 ZACK 6 6 [facility] DEPARTMEN INC T VISIT MODERATE SEVERITY EMERGENCY 90040 RUDY WILCOX 6 6 PHYSICIAN [facility] USMAN S, [facility] T VISIT HIGH/URGE NT SEVERITY [facility] INPATIENT 6 6 [facility] INPAT[facility] 6 6 [facility] EMERGENCY 06613 ZACK 5 5 [facility] DEPARTMEN INC T VISIT LOW/MODER SEVERITY HOSPITAL ZACK - 5 5 [facility] OUTPATIEN INC T [facility] INPATIENT 5 5 [facility] IN[facility] 5 5 [facility] ZACK - 5 5 [facility] INPATIENT INC OFFICE 03868 ZACK CONNELL 5 5 [facility] VISIT 5 HOSPITAL MINUTES P EMERGENCY 10515 ZACK 5 5 [facility] DEPARTMEN INC T VISIT LIMITED/M INOR [facility] HOSPITAL ZACK - 5 5 [facility] OUTPATIEN INC T OFFICE 42642 ZACK PEREZPATIEN 5 5 [facility] VISIT HOSPITAL 10 P MINUTES OFFICE 55522 [place] ERIBERTO GORDILLO OUTPATIMICA 5 5 MEDICAL T VISIT SERV 25 FOUNDATIO MINUTES HOSPITAL ZACK - 5 5 [facility] OUTPATIEN INC T HOSPITAL ZACK - 5 5 [facility] OUTPATIEN INC T OFFICE 60125 [place] WILL OUTPATIEN 5 5 [facility] T VISIT INTERNAL 25 MEDI MINUTES OFFICE 22300 ZACK PEREZPATIEN 5 5 [facility] T VISIT HOSPITAL 15 P MINUTES HOSPITAL ZACK - 5 5 [facility] OUTPATIEN INC T HOSPITAL ZACK HOPKINS 5 5 [facility] OFFICE [id number] ZACK CONNELL 5 5 [facility] T VISIT HOSPITAL 10 P MINUT[facility] INPATIENT 5 5 [facility] OFFICE [address]137 [place] OUTPATIEN 5 5 MEDICAL T VISIT SERV 25 FOUNDATIO MINUTES N [facility] INPATIENT 5 5 [facility] IN[facility] 5 5 [facility] 5 5 [facility] ZACK - 5 5 [facility] INPATIENT [facility] EMERGENCY 12042 ZACK Dawn 5 5 [facility] T VISIT P LOW/MODER SEVERITY HOSPITAL ZACK - 5 5 [facility] OUTPATIEN [facility] H[facility]PITAL ZACK [facility] 5 5 [facility] OFFICE [address]441 [place] OUTPATIEN 4 4 MEDICAL T VISIT SERV 25 FOUNDATIO MINUTES [facility] ZACK - 4 4 [facility] OUTPATIEN [facility] EMERGENCY 69241 ZACK 4 4 [facility] T VISIT MODERATE SEVERITY HOSPITAL ZACK - 4 4 [facility] OUTPATIEN [facility] EMERGENCY 83380 [facility] DEPT 4 4 ERIC IMT VISIT EMERGENCY HIGH PHYS SEVERITY& THREAT [facility] ZACK - OTHER 4 4 [facility] INC OFFICE 93758 [place] OUTPATIEN 4 4 MEDICAL T VISIT SERV 25 FOUNDATIO MINUTES [facility] ZACK - 4 4 [facility] OUTPATIEN [facility] ZACK - KELLIE 4 4 [facility] ZACK [facility] 4 4 [facility] OUTPATIEN INC OFFICE 55026 [facility] OUTPATIEN 3 3 PHYSICIAN JAM T VISIT S GROUP 15 MINUTES OFFICE 16766 CAMERON GORDILLO OUTPATIEN 3 3 MEDICAL T VISIT SERV 25 [facility] ZACK - 3 3 [facility] OUTPATIEN [facility] HOSPITAL ZACK [facility] 3 3 [facility] OUTPATIEN [facility] EMERGENCY 34331 ZACK 3 3 [facility] T VISIT LIMITED/M INOR PROB EMERGENCY 13278 EMEKA ALFORD 3 3 EMERGENCY III [facility] T VISIT HIGH/URGE NT SEVERITY HOSPITAL ZACK - 3 3 [facility] OUTPATIEN [facility] EMERGENCY 19347 ZACK 3 3 [facility] T VISIT HIGH/URGE NT SEVERITY EMERGENCY 58890 EMEKA LIRA DEPT 3 3 EMERGENCY VISIT SERVICES HIGH SEVERITY& THREAT [facility] ZACK - 3 3 [facility] OUTPATIEN [facility] ZACK [facility] 3 3 [facility]EN [facility] OFFICE 43359 CAMERON GORDILLO OUTPATIEN 3 3 MEDICAL T VISIT SERV 25 [facility] ZACK - 3 3 [facility] OUTPATIEN [facility] ZACK [facility] 3 3 [facility]EN [facility] ZACK - 3 3 [facility]EN [facility] H[facility]PITAL ZACK - 3 3 [facility] ZACK - 3 3 [facility] EMERGENCY 65402 EMEKA CASTELLANO DEPT 2 2 EMERGENCY VISIT SERVICES HIGH SEVERITY& THREAT [facility] ZACK - 2 2 [facility] ZACK - 2 2 [facility] ZACK [facility] 2 2 [facility] 30441 CAMERON WEI RAND OUTPATIEN 2 2 MEDICAL T VISIT SERV 25 [facility] ZACK - 2 2 [facility] ZACK [facility] 2 2 [facility] ZACK [facility] 2 2 [facility] 05342 [facility] ERIBERTO GORDILLO OUTPATIEN 2 2 MEDICAL T VISIT SERV 15 [facility] ZACK - 2 2 [facility] ZACK [facility] 2 2 [facility] EM[facility] 30632 EMEKA ALFORD DEPT 2 2 EMERGENCY III [facility] VISIT SERVICES HIGH SEVERITY& THREAT [facility] EMERGENCY 68951 ZACK 2 [facility] 2001 VISIT HIGH/URGE NT SEVERITY [facility] ZACK - 2 2 [facility] ZACK - 2 2 [facility] EMERGENCY 30616 ZACK [facility] 2001 VISIT HIGH/URGE NT SEVERITY EMERGENCY 81400 EMEKA WILCOX DEPT 2 2 EMERGENCY [facility] VISIT SERVICES HIGH SEVERITY& THREAT [facility] ZACK - 2 2 [facility] OFFICE 16608 FAMILY STRAWZELL OUTPATIEN 2 2 CARE CRI T VISIT ASSOCIATE 25 S, PSC MINUTES OFFICE 04132 FAMILY STRAWZELL OUTPATIEN 2 2 CARE CRI T VISIT ASSOCIATE 15 S, [facility] ZACK - 2 2 [facility] T EMERGENCY 50328 ZACK 2 2 [facility] T VISIT LOW/MODER SEVERITY EMERGENCY 26396 EMEKA ALFORD 2 2 EMERGENCY III [facility] T VISIT HIGH/URGE NT SEVERITY OFFICE 84718 [place] WEISada GORDILLO OUTPATIEN 2 2 MEDICAL T VISIT SERV 25 [facility] ZACK - 2 2 [facility] T OFFICE 02322 PAWSAT PAWSAT OUTPATIEN 2 2 Aug T [facility] 30 [facility] ZACK [facility] 1 1 [facility] OUTPATIEN [facility] ZACK - 1 1 [facility] T OFFICE 99412 [place] ERIBERTO GORDILLO OUTPATIEN 1 1 MEDICAL T VISIT SERV 25 [facility] ZACK - 1 1 [facility] OUTPATIEN [facility] EMERGENCY 74378 ZACK 1 1 [facility] DEPARTMEN [facility] T VISIT MODERATE SEVERITY HOSPITAL ZACK - 1 1 [facility] OUTPATIEN [facility] ZACK - 1 1 [facility]EN [facility] HOSPITAL ZACK [facility] 1 1 [facility] OUTPATIEN [facility] ZACK [facility] 1 1 [facility]EN [facility] T OFFICE 54369 [place] S[place] OUTPATIEN 1 1 [place] T NEW 45 CLINIC MINUTES [facility] ZACK - 1 1 [facility] OUTPATIEN INC T OFFICE 94954 [place] ERIBERTO GORDILLO OUTPATIEN 1 1 MEDICAL T NEW 60 SERV MINUTES [facility] ZACK - 1 1 [facility] OUTPATIEN INC T OFFICE 82525 FAMILY MULBERRY OUTPATIEN 1 1 CARE NILO T VISIT ASSOCIATE 40 S MINUTES EMERGENCY 15430 EMEKA WU 1 1 EMERGENCY JAM DEPARTMEN SERVICES T VISIT MODERATE SEVERITY EMERGENCY 96862 ZACK 1 1 [facility] DEPARTMEN INC T VISIT LOW/MODER SEVERITY [facility]OSPITAL ZACK - 1 1 [facility] OUTPATIEN INC T OFFICE 42772 FAMILY LOGANBERRY OUTPATIEN 1 1 CARE NILO T VISIT ASSOCIATE 25 S MINUTES OFFICE 12477 ANKUSH LECHUGA JR OUTPATIEN 1 1 ELAINE ELAINE T VISIT 15 MINUTES [facility]OSPITAL Z[facility] - 1 1 [facility] OUTPATIEN INC T OFFICE 54002 ANKUSH LECHUGA JR OUTPATIEN 1 1 ELAINE ELAINE T NEW 45 MINUTES [facility]PITAL ZACK - 1 1 [facility] INC T [facility] ZACK - 1 1 [facility] OUTPATIEN INC T OFFICE 76049 FAMILY JADA OUTPATIEN 1 1 CARE NILO T VISIT ASSOCIATE 25 S MINUTES EMERGENCY 47934 EMEKA CASTELLANO 1 1 EMERGENCY DEPARTMEN SERVICES T VISIT HIGH/URGE NT SEVERITY HOSPITAL Z[facility] - 1 1 [facility] OUTPATIEN INC T EMERGENCY 80621 ZACK 1 1 [facility] DEPARTMEN INC T VISIT LOW/MODER SEVERITY OFFICE 56296 FAMILY BRENDAN J OUTPATIEN 1 1 CARE T VISIT ASSOCIATE 15 S MINUTES EMERGENCY 39404 EMEKA WILCOX 0 0 EMERGENCY [facility] DEPARTMEN SERVICES T VISIT HIGH/URGE NT SEVERITY EMERGENCY 52372 ZACK 0 0 [facility] DEPARTMEN INC T VISIT LOW/MODER SEVERITY [facility]OSPITAL Z[facility] - 0 0 [facility] OUTPATIEN INC T OFFICE 41890 FAMILY BRENDAN J OUTPATIEN 0 0 CARE T VISIT ASSOCIATE 15 S MINUTES OFFICE 55375 FAMILY BRENDAN J OUTPATIEN 0 0 CARE T VISIT ASSOCIATE 15 S MINUTES HOSPITAL Z[facility] - 0 0 [facility] OUTPATIEN INC T OFFICE 54808 FAMILY MULBERRY OUTPATIEN 0 0 CARE NILO T VISIT ASSOCIATE 25 S MINUTES HOSPITAL ZACK - 0 0 [facility] OUTPATIEN INC T [facility] ZACK - 0 0 [facility] INC T OFFICE 39225 [facility] 0 PHYSICIAN JAM T NEW 45 S GROUP MINUTES EMERGENCY 97144 ZACK 0 0 [facility] DEPARTMEN INC T VISIT MODERATE SEVERITY HOSPITAL ZACK - 0 0 [facility] OUTPATIEN INC T EMERGENCY 67084 EMEKA WILCOX 0 0 EMERGENCY [facility] DEPARTMEN SERVICES T VISIT HIGH/URGE NT SEVERITY OFFICE 14169 FAMILY MULBERRY OUTPATIEN 0 0 CARE NILO T VISIT ASSOCIATE 25 S MINUTES OFFICE 94571 FAMILY MULBERRY, OUTPATIEN 0 0 CARE CLEO T T VISIT ASSOCIATE 15 S MINUTES OFFICE 66235 FAMILY MULBERRY, OUTPATIEN 0 0 CARE CLEO T T VISIT ASSOCIATE 25 S MINUTES OFFICE 09297 FAMILY MULBERRY, OUTPATIEN 0 0 CARE CLEO T T VISIT ASSOCIATE 15 S MINUTES OFFICE 29576 FAMILY MULBERRY, OUTPATIEN 0 0 CARE CLEO T T VISIT ASSOCIATE 25 S MINUTES EMERGENCY 83104 EMEKA WILCOX DEPRia 0 0 EMERGENCY [place]AY[facility] S VISIT SERVICES HIGH SEVERITY& ASSOCIATE THREAT [facility] Z[facility] - 0 0 [facility] INPATIENT INC OFFICE 36227 FAMILY JADA, OUTPATIEN 0 0 CARE CLEO T T VISIT ASSOCIATE 15 S MINUTES HOSPITAL Z[facility] - 0 0 [facility] OUTPATIEN INC T EMERGENCY 98903 ZACK 0 0 [facility] DEPARTMEN INC T VISIT LOW/MODER SEVERITY [facility]OSPITAL Z[facility] - 0 0 [facility] OUTPATIEN INC T OFFICE 87414 MEANS BUTROS, OUTPATIEN 9 9 ADULT REVANESAA T VISIT PRIMARY 15 CARE [facility] ZACK - 9 9 [facility] OUTPATIEN INC T OFFICE 53395 MEANS BUTROS, OUTPATIEN 9 9 ADULT REVANESAA T VISIT PRIMARY 25 CARE [facility] ZACK - 9 9 [facility] OUTPATIEN INC T OFFICE 10297 MEANS BUTROS, CONSULTAT 9 9 ADULT RERANDALLLLA ION PRIMARY [facility] 80 MIN OFFICE 42438 FAMILY JADA OUTPATIEN 9 9 CARE CLEO T T VISIT ASSOCIATE 15 S MINUTES HOSPITAL Z[facility] 9 9 [facility] OUTPATIEN INC T OFFICE 93911 FAMILY JADA OUTPATIEN 9 9 CARE CLEO T T VISIT ASSOCIATE 25 S MINUTES [facility]OSPITAL ZACK - 9 9 [facility] OUTPATIEN INC T OFFICE 69746 FAMILY JADA OUTPATIEN 9 9 CARE CLEO T T VISIT ASSOCIATE 25 S MINUTES OFFICE 35945 FAMILY KO OCAMPO 8 8 CARE R PADMINI T VISIT ASSOCIATE 25 S MINUTES [facility]OSPITAL ZACK - 8 8 [facility] OUTPATIEN INC T OFFICE 39408 Sameer MARCOS 8 8 CARE G T VISIT ASSOCIATE 15 S MINUTES EMERGENCY 82856 [facility] 8 [facility] LOW/MODER SEVERITY [facility]OSPITAL ZACK - 8 8 [facility] EMERGENCY 81513 ZACK 8 8 [facility] T VISIT LIMITED/M INOR PROB [facility] ZACK [facility] 8 8 [facility] T
--- OUTSIDE RECORDS SUMMARY | 2016-10-19 17:41 | External Medical Summary Rpt ---
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 Name Role Phone CALDERON VALENTINE, CALDERON Unavailable [...] TRACY RODRIGUEZ ALL, RODRIGUEZ ALL Unavailable Unavailable [facility] Unavailable Unavailable SERVICE, [facility] Unavailable Unavailable SERVICE, [facility] BUTROS, REZKALLA, Unavailable Unavailable BUTROS, REZKALLA [facility] Unavailable Unavailable CONSULTANTS O, [facility] CONSULT[facility] O [facility] Unavailable Unavailable CAMPUS, [facility] Unavailable Unavailable CAMPUS, [facility] Unavailable Unavailable [place], [facility] [...] TAYA WILCOX S MARISOL ANDREZ, Unavailable Unavailable MAIRSOL ANDREZ [facility] Unavailable Unavailable INC, [facility] Unavailable Unavailable HOSPITAL P, [facility] P PETERS LANNY, PETERS LANNY Unavailable Unavailable PETERS LANNY, PETERS LANNY Unavailable Unavailable PETERS, GEE A, Unavailable Unavailable PETERS, GEE A [facility], Unavailable Unavailable [facility] JOINER, JOINER Unavailable Unavailable KLARISSA IMT, KLARISSA Unavailable Unavailable IMT [facility] Unavailable Unavailable [facility], [facility] KOTTER JUAN J, KOTTER [...] E [place] Unavailable Unavailable INTERNAL MED, [facility] [place] Unavailable Unavailable INTERNAL MEDI, [facility] Unavailable Unavailable SERVICES, [facility] MCKEMIE JR NANCY, Unavailable Unavailable MCKEMIE JR NANCY MICH CARLOS, MICH Unavailable Unavailable CARLOS XAVI EPPS P, Unavailable Unavailable [facility] MULBERRY NILO, Unavailable Unavailable MULBERRY NILO MULBERRY, CLEO T, Unavailable Unavailable MULBERRY, CLEO T CROWELL SON, CROWELL SON Unavailable Unavailable [facility] Unavailable Unavailable [facility], [facility] Clemente OCAMPO, Unavailable Unavailable Clemente OCAMPO [...] Unavailable Unavailable EQUIPME, [facility] Unavailable Unavailable EQUIPME, [facility] Unavailable Unavailable EMERGENCY PHYS, [facility] Un[facility] Unavailable [facility], [facility] STRAWZELL CRI, Unavailable Unavailable STRAWZELL CRI [facility], Unavailable Unavailable [facility], Unavailable Unavailable [facility] WEI RAND, WEI RAND Unavailable Unavailable WEHRMAN III NANCY, Unavailable Unavailable WEHRMAN III NANCY [facility] Unavailable Unavailable LLC, [facility] ELSA LIRA, ELSA LIRA Unavailable Unavailable Purpose Continuity of Care Document - 11-11-2007 through 2016 Problems Code Diagnosis DOS Provider Status E109 TYPE 1 09-14-2016 [facility] MELLITUS GROUP WITHOUT COMPLICATIO NS I213 ST 09-14-2016 [facility] E[facility] MYOCARDIAL GROUP INFARCTION UNS SITE I739 PERIPHERAL 09-14-2016 [facility] VASCULAR [facility]YS[facility]IANS DISEASE GROUP UNSPECIFIED N183 CHRONIC 09-14-2016 [facility] KIDNEY PHYSICIANS DISEASE GROUP STAGE 3 MODERATE E1142 TYPE 2 09-13-2016 [facility] P W/DIAB POLYNEUROPA THY I119 HYPERTENSIV 09-13-2016 [facility] HEART PHYSICIANS, DISEASE PLLC WITHOUT HEART FAILURE I129 HYPERTENSIV 09-13-2016 [facility] CKD [facility] W/STAGE 1-4 INC CKD OR UNS CKD U39266 [facility] [place] 09-13-2016 [facility] COR ART [facility] W/UNSTABLE INC ANGINA PECTORIS I5043 ACUTE ON 09-13-2016 [facility] P SYSTOLIC & DIASTOLIC CHF I773 ARTERIAL 09-13-2016 [facility] FIBROMUSCUL [facility] AR INC DYSPLASIA R0602 SHORTNESS 09-13-2016 [facility] OF BREATH PHYSICIANS GROUP R0689 OTHER 09-13-2016 [facility] ES OF SERVICE BREATHING Z794 LONG-TERM 09-13-2016 [facility] CURRENT USE [facility] OF INSULIN INC E039 HYPOTHYROID 06-09-2016 [facility] ISM [facility] UNSPECIFIED INC E118 TYPE 2 06-09-2016 [facility] DIABETES [facility] MELLITUS INC W/UNS COMPLICATIO NS E119 TYPE 2 03-21-2016 [facility] MELLITUS FOUNDATION WITHOUT COMPLICATIO NS M810 AGE-RELATED 03-21-2016 [place] [facility] SERV OSTEOPOROSI FOUNDATION S W/O CURRNT PATH FX N184 CHRONIC 03-21-2016 [facility] KIDNEY SERV DISEASE FOUNDATION STAGE 4 SEVERE N250 RENAL 03-21-2016 [place] [facility] OSTEODYSTRO SERV PHY FOUNDATION N390 URINARY 03-18-2016 [facility] PHYSICIANS INFECTION LA SITE NOT SPECIFIED Q11447 TYPE 2 02-28-2016 [facility] DIABETES [facility] MELLITUS [facility] P W/HYPOGLYCE VICTORIANO W/O COMA E162 HYPOGLYCEMI 02-28-2016 [facility] A PHYSICIANS, UNSPECIFIED PLLC E876 HYPOKALEMIA 02-28-2016 [facility] INC I10 ESSENTIAL 02-28-2016 [facility] HYPERTENSIO [facility] P N I5032 CHRONIC 02-28-2016 [facility] P HEART FAILURE R410 DISORIENTAT 02-28-2016 [facility] UNSPECIFIED SERVICE Z591 INADEQUATE 02-28-2016 [facility] INC X25627 OTHER LONG 02-28-2016 [facility] TERM [facility] CURRENT INC DRUG THERAPY G4733 OBSTRUCTIVE 02-15-2016 [facility] SLEEP HOME APNEA ADULT MEDICAL PEDIATRIC EQUIPME [id number] MX FX 02-15-2016 [facility] PELVIS STBL HOME DISRUPT MEDICAL PELV RING EQUIPME INIT CHANDRIKA FX I8310 VARICOSE 09-17-2015 [place] UNS VALLEY LOWER INTERNAL EXTREM MEDI W/INFLAMMAT ION M129 ARTHROPATHY 09-17-2015 [place] UNSPECIFIED INTERNAL MEDI Z9111 PATIENTS 09-07-2015 [place] NONCOMPLIAN VALLEY CE WITH INTERNAL DIETARY MEDI REGIMEN N189 CHRONIC 09-05-2015 [facility] KIDNEY PHYSICIANS, DISEASE PLLC UNSPECIFIED R1110 VOMITING 09-05-2015 [facility] UNSPECIFIED [facility]ICAL IMAGING ASS R404 TRANSIENT 09-05-2015 [facility] ALTERATION MEDICAL OF IMAGING ASS AWARENESS R4182 ALTERED 09-05-2015 [facility] MENTAL PHYSICIANS, STATUS PLLC UNSPECIFIED R464 SLOWNESS 09-05-2015 [facility] RESPONSIVEN SERVICE ESS Z94524 CELLULITIS 08-16-2015 [place] OF RIGHT VALLEY LOWER LIMB INTERNAL MED T07228 CELLULITIS 08-16-2015 [place] OF LEFT VAL[place] LOWER LIMB INTERNAL MED E1021 TYPE 1 08-10-2015 [facility] DIABETES [facility] MELLITUS INC W/DIABETIC NEPHROPATHY E1065 TYPE 1 08-10-2015 [facility] DIABETES [facility] MELLITUS INC WITH HYPERGLYCEM IA E138 OTH SPEC 08-10-2015 [facility] DIABETES PHYSICIANS, MELLITUS PLLC W/UNS COMPLICATIO NS V72494 CELLULITIS 08-10-2015 [facility] OF PHYSICIANS, UNSPECIFIED PLLC PART OF LIMB R739 HYPERGLYCEM 08-10-2015 [facility] [place] [facility] UNSPECIFIED SERVICE L853 XEROSIS 08-09-2015 [place] CUTIS VALLEY INTERNAL MED E6601 MORBID 08-05-2015 [place] SEVERE VALLEY OBESITY DUE INTERNAL TO EXCESS MEDI CALORIES I270 PRIMARY 07-20-2015 [facility] PULMONARY [facility] HYPERTENSIO CAMPUS N I5030 UNSPECIFIED 07-20-2015 [facility] CONGESTIVE [place] HEART FAILURE R0600 DYSPNEA 07-20-2015 [facility] M542 CERVICALGIA 07-12-2015 [facility] M546 PAIN IN 07-12-2015 [facility] THORACIC MO[facility] SPINE I509 HEART 07-11-2015 [place] FAILURE VALLEY UNSPECIFIED INTERNAL MED I8311 VARICOSE 07-11-2015 [place] RT [facility] LOWER INTERNAL EXTREMITY MED W/INFLAMMAT ION M4003 POSTURAL 07-11-2015 [place] KYPHOSIS [facility] CERVICOTHOR INTERNAL ACIC REGION MED R05 COUGH 06-05-2015 [facility] R600 LOCALIZED 05-09-2015 [facility] LAR CONSULTANTS O I348 OTHER 05-05-2015 [facility] MEDICAL NONRHEUMATI SERV C MITRAL FOUNDATION VALVE DISORDERS I361 NONRHEUMATI 05-05-2015 [facility] MEDICAL C TRICUSPID SERV VALVE FOUNDATION INSUFFICIEN CY I371 NONRHEUMATI 05-05-2015 [facility] MED[facility] C PULMONARY SERV VALVE FOUNDATION INSUFFICIEN [...] INC ADULT N3020 OTHER 04-28-2015 [facility] CHRONIC [facility] WITHOUT HEMATURIA J209 ACUTE 03-31-2015 [facility] BRONCHITIS [facility] HOS[facility] UNSPECIFIED INC F02590 PERSONAL 03-31-2015 [facility] HISTORY OF MEM HOS[facility] NICOTINE INC DEPENDENCE A499 BACTERIAL 03-23-2015 [facility]ICAL INFECTION SERV UNSPECIFIED FOUNDATION R279 UNSPECIFIED 03-19-2015 [facility] LACK OF MEM HOSP COORDINATIO INC N Z5189 ENCOUNTER 03-19-2015 [facility] FOR OTHER MEM [facility]OS[facility] SPECIFIED INC AFTERCARE 52874 DIAB W/O 03-17-2015 [facility] COMP TYPE I HOME [JUV] NOT MEDICAL STATED EQUIPME UNCNTRL 69360 OBSTRUCTIVE 03-17-2015 [facility] SLEEP HOME APNEA MEDICAL EQUIPME 31058 MULTIPLE 03-17-2015 [facility] CLOSED HOME PELVIC FX MEDICAL DISRUPT EQUIPME PELVIC HO-CHUNK 2449 UNSPECIFIED 03-10-2015 [facility] HYPOTHYROID INC ISM 01966 DIAB W/O 03-10-2015 [facility] COMP TYPE [facility] II/UNS NOT INC STATED UNCNTRL 5854 CHRONIC 03-10-2015 [facility] KIDNEY [facility] DISEASE INC STAGE IV (SEVERE) 5990 URINARY 03-10-2015 [facility] TRACT [facility] INFECTION INC SITE NOT SPECIFIED 11260 UNSPECIFIED 03-10-2015 [facility] OSTEOPOROSI INC S 4019 UNSPECIFIED 03-02-2015 [place] ESSENTIAL [place] HYPERTENSIO INTERNAL N MEDI 4541 VARICOSE 03-02-2015 [place] LOWER [place]LEY INTERNAL EXTREMITIES MEDI W/INFLAMMAT ION 39738 UNSPECIFIED 03-02-2015 [place] CONSTIPATIO INTERNAL N MEDI 5939 UNSPECIFIED 03-02-2015 [place] DISORDER VALLEY OF KIDNEY INTERNAL AND URETER MEDI 7823 EDEMA 03-02-2015 [place] INTERNAL MEDI 22408 UNSPECIFIED 03-02-2015 [place] RETENTION [place] OF URINE INTERNAL MEDI 74437 UNSPECIFIED 02-24-2015 [facility] ARTHROPATHY [facility] P MULTIPLE SITES 7813 LACK OF 02-24-2015 [facility] P V571 OTHER 02-24-2015 [facility] PHYSICAL [facility] THERAPY INC 5952 OTHER 02-03-2015 [facility] CYSTITIS [facility] P 2761 HYPOSMOLALI 01-17-2015 [facility] TY AND/OR HEALTH HYPONATREMI CAMPUS A 89078 LEUKOCYTOSI 01-17-2015 [facility] S HEALTH UNSPECIFIED CAMPUS 5849 ACUTE 01-17-2015 [facility] KIDNEY HEALTH FAILURE CAMPUS UNSPECIFIED 7197 DIFFICULTY 01-17-2015 [facility] IN WALKING HEALTH CAMPUS 73491 MUSCLE 01-17-2015 [facility] WEAKNESS HEALTH (GENERALIZE CAMPUS D) 7663 UNSPECIFIED 01-17-2015 [facility] DEBILITY HEALTH CAMPUS 9953 ALLERGY 01-17-2015 [facility] UNSPECIFIED HEALTH NOT CAMPUS ELSEWHERE CLASSIFIED 66987 HTN CKD UNS 12-25-2014 [place] [facility] W/CKD SERV STAGE I FOUNDATION THRU STAGE IV/UNS 515 POSTINFLAMM 12-16-2014 [facility] ATORY [facility] PULMONARY FIBROSIS V5881 FITTING AND 12-16-2014 [facility] ADJUSTMENT MOBILEX OF VASCULAR CATHETER 4280 CONGESTIVE 12-09-2014 [facility] HEART MOBILEX FAILURE UNSPECIFIED 4293 CARDIOMEGAL 12-09-2014 [facility] Y [facility]BILEX 1101 DERMATOPHYT 12-04-2014 [facility] OSIS OF E NAIL 23226 DIAB 12-04-2014 [facility] W/PERIPH E CIRC D/O TYPE II/UNS NOT UNCNTRL 4439 UNSPECIFIED 12-04-2014 [facility] PERIPHERAL E VASCULAR DISEASE 9172 FOOT&TOE 12-04-2014 [facility] BLISTER E WITHOUT MENTION OF INFECTION 9243 CONTUSION 12-04-2014 [facility] OF TOE E 97773 ABDOMINAL 11-03-2014 [facility] PAIN RIGHT MEDICAL UPPER IMAGING ASS QUADRANT 5533 DIAPHRAGMAT 11-01-2014 [facility] KODY W/O MEDICAL MENTION IMAGING ASS OBSTRUCTION /GANGREN 7905 OTHER 11-01-2014 [facility] NONSPECIFIC MEDICAL ABNORMAL IMAGING ASS SERUM ENZYME LEVELS 7862 COUGH 10-30-2014 [facility] V5869 LONG-TERM 10-30-2014 [facility] (CURRENT) [facility] USE OF INC OTHER MEDICATIONS 63638 UNSPECIFIED 10-28-2014 [facility] OTALGIA [facility]ICAL IMAGING ASS 7224 DEGENERATIO 10-28-2014 [facility] N OF MEDICAL CERVICAL IMAGING ASS INTERVERTEB RAL DISC 7231 CERVICALGIA 10-28-2014 [facility] 80355 SENILE 06-23-2014 [facility] OSTEOPOROSI [facility] S INC 2689 UNSPECIFIED 05-20-2014 [facility] VITAMIN D [facility] DEFICIENCY INC 2724 OTHER AND 05-20-2014 [facility] UNSPECIFIED [facility]OS[facility] INC HYPERLIPIDE VICTORIANO 79255 OTHER 05-20-2014 [facility] OSTEOPOROSI [facility]OS[facility] S INC 89756 HYPERTENSIV 02-20-2014 [facility] E HEART [facility] DISEASE INC UNSPEC W/HEART FAIL 4660 ACUTE 02-20-2014 [facility] BRONCHITIS [facility] INC 490 BRONCHITIS 02-20-2014 [facility] N [facility]ERG[facility]Y SPECIFIED PHYS ACUTE OR CHRONIC 02313 SWELLING OF 02-20-2014 [facility] N EMERGENCY PHYS 5853 CHRONIC 11-18-2013 [facility] KIDNEY SERV DISEASE FOUNDATIO STAGE III (MODERATE) 586 UNSPECIFIED 10-29-2013 [facility] RENAL PHYSICIANS FAILURE [place] 7262 OTHER 05-30-2013 [facility] AFFECTIONS PHYSICIANS OF SHOULDER GROUP REGION NEC 06235 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-2013 [facility] 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 76159 DISORDER OF 05-21-2013 [facility] BONE AND MEDICAL CARTILAGE IMAGING ASS UNSPECIFIED V1559 PERSONAL 05-21-2013 [facility] HISTORY OF MEDICAL OTHER IMAGING ASS INJURY V4981 ASYMPTOMATI 05-21-2013 [facility] C MEDICAL POSTMENOPAU IMAGING ASS KEELY STATUS 06408 UNSPECIFIED 04-29-2013 [facility] INFECTION SERVICES IN CCE & UNS SITE 4659 ACUTE URIS 04-29-2013 [place] OF EMERGENCY UNSPECIFIED SERVICES SITE 40843 CRAMP OF 04-05-2013 [facility] LIMB PHYSICIANS [place] 7241 PAIN IN 01-16-2013 [facility] SPINE [facility] P 28023 ORTHOPNEA 01-16-2013 [facility] P 53999 OTHER 01-16-2013 [facility] [place] DYSPNEA AND EMERGENCY SERVICES RESPIRATORY ABNORMALITI ES 7265 ENTHESOPATH 10-17-2012 [facility] Y OF HIP [facility] REGION INC 54249 PAIN IN 08-22-2012 [facility] JOINT MEDICAL PELVIC IMAGING ASS REGION AND THIGH 2749 GOUT, 07-16-2012 [place] [address] SHORTNESS 05-28-2012 [facility] CLINIC 4240 MITRAL 05-27-2012 [facility] VALVE [facility] DISORDERS INC 25031 OSTEOARTHRO 05-27-2012 [facility] S UNSPEC [facility] WHETHER INC GEN/LOC UNSPEC SITE 93586 CHEST PAIN 05-27-2012 [facility] UNSPECIFIED MEDICAL IMAGING ASS 48616 OTHER CHEST 05-27-2012 [facility] P 5859 CHRONIC 12-01-2011 [facility] KIDNEY [facility] DISEASE INC UNSPECIFIED 96630 HYPERSOMNIA 11-15-2011 [facility] WITH SLEEP [place] APNEA UNSPECIFIED 54032 ANEMIA OF 10-30-2011 [facility] P DISEASE 2859 UNSPECIFIED 10-30-2011 [facility] ANEMIA EMERGENCY SERVICES 84036 DEGEN 10-30-2011 [facility] THORACIC/TH MEDICAL ORACOLUMBAR IMAGING ASS INTERVERTEB RAL DISC 26243 DEGEN 10-30-2011 [facility] LUMBAR/LUMB MEDICAL OSACRAL IMAGING ASS INTERVERTEB RAL DISC 7242 LUMBAGO 10-30-2011 [facility] P 7245 UNSPECIFIED 10-30-2011 [facility] [place] BACKACHE EMERGENCY SERVICES 7840 HEADACHE 10-30-2011 [facility] INC 08568 OTHER 10-20-2011 [facility] DISEASES OF MEDICAL LUNG NOT IMAGING ASS ELSEWHERE CLASSIFIED 5199 UNSPECIFIED 10-20-2011 [facility] DISEASE OF MEDICAL IMAGING ASS RESPIRATORY SYSTEM V5867 LONG-TERM 10-19-2011 [facility] USE OF [facility] P 3559 MONONEURITI 10-14-2011 [facility] S OF HOME UNSPECIFIED MEDICAL SITE EQUIPME 30865 OTHER 10-14-2011 [facility] MALAISE AND HOME FATIGUE MEDICAL EQUIPME 5180 PULMONARY 10-05-2011 [facility] COLLAPSE MEDICAL IMAGING ASS 79965 OTHER 09-30-2011 [facility] STAPHYLOCOC [facility] CUS INC INFECTION IN CCE & UNS SITE 2768 HYPOPOTASSE 09-30-2011 [facility] VICTORIANO [employer] 2888 OTHER 09-30-2011 [facility] SPECIFIED DISEASE OF ASSOCIATES, WHITE BLOOD PSC CELLS 4599 UNSPECIFIED 09-30-2011 [facility] CIRCULATORY INC SYSTEM DISORDER 486 PNEUMONIA, 09-30-2011 [facility] ORGANISM [facility] UNSPECIFIED INC 44592 OTHER 09-30-2011 [facility] SPECIFIED MEDICAL DISORDERS IMAGING ASS OF BLADDER 26424 OSTEOARTHRO 09-30-2011 [facility] SIS UNSPEC MEDICAL WHETHER IMAGING ASS GEN/LOC LOWER LEG 92528 EFFUSION OF 09-30-2011 [facility] LOWER LEG MEDICAL JOINT IMAGING ASS 7291 UNSPECIFIED 09-30-2011 [facility] MYALGIA [employer] MYOSITIS 7295 PAIN IN 09-30-2011 [facility] SOFT TISSUES OF ASSOCIATES, LIMB PSC 7821 RASH AND 09-14-2011 [facility] OTHER NONSPECIFIC ASSOCIATES, SKIN PSC ERUPTION V770 SCREENING 09-14-2011 [facility] FOR THYROID DISORDER ASSOCIATES, [facility] V7791 SCREENING 09-14-2011 [facility] FOR LIPOID DISORDERS ASSOCIATES, PSC 89953 DIAB 06-24-2011 [facility] MAR W/NEURO MANIFESTS TYPE II/UNS NOT UNCNTRL 7038 OTHER 06-24-2011 [facility] MAR SPECIFIED DISEASE OF NAIL 33060 SECONDARY 03-29-2011 [facility] OSTEOAR[facility]RO CLINIC PSC SIS LOWER LEG 86729 PAIN IN 03-29-2011 [facility] JOINT, [facility]OS[facility] LOWER LEG INC 98393 BACKGROUND 03-25-2011 [facility] DIABETIC VISION RETINOPATHY 68876 NUCLEAR 03-25-2011 [facility] SCLEROSIS VISION 7820 DISTURBANCE 02-09-2011 [facility] OF SKIN [facility] SENSATION INC 2767 HYPERPOTASS 02-07-2011 [facility] EMIA ASSOCIATES 460 ACUTE 02-07-2011 [facility] NASOPHARYNG ASSOCIATES ITIS 6929 CONTACT 01-27-2011 [facility] DERMATITIS& EMERGENCY OTHER SERVICES ECZEMA DUE UNSPEC CAUSE 57293 PAIN IN 12-09-2010 [facility] JOINT, ASSOCIATES MULTIPLE SITES 05088 UNSPEC 10-28-2010 ALLRAN JR VENTRAL ELAINE KODY W/O MENTION OBST/GANGRE N 90891 ABDOMINAL 09-21-2010 [facility] PAIN, [facility] GENERALIZED INC 7831 ABNORMAL 08-24-2010 [facility] WEIGHT GAIN PHYSICIANS [place] 5110 PLEURISY 07-18-2010 [facility] WITHOUT EMERGENCY MENTION SERVICES EFFUS/[place] [address] PAINFUL 07-18-2010 [facility] RESPIRATION MEDICAL IMAGING ASS 2721 PURE 07-08-2010 [facility] HYPERGLYCER PHYSICIANS IDEMIA [place] 7944 NONSPECIFIC 07-07-2010 [facility] ABNORM ASSOCIATES RESULTS KIDNEY FUNCTION STUDY 02197 ASTHMA, 06-16-2010 [facility] UNSPECIFIED EMERGENCY , SERVICES UNSPECIFIED STATUS 19248 DIAB 05-21-2010 PETERS LANNY W/OPHTH MANIFESTS TYPE II/UNS NOT UNCNTRL 8250 CLOSED 04-28-2010 [facility] FRACTURE OF [facility] CALCANEUS INC V5416 AFTERCARE 04-28-2010 [facility] HEALING MEDICAL TRAUMATIC IMAGING ASS FRACTURE LOWER LEG 8248 UNSPECIFIED 03-31-2010 [facility] CLOSED MEDICAL FRACTURE OF IMAGING ASS ANKLE 89447 OTHER ANKLE 03-31-2010 [facility] [employer] STRAIN S INC 9596 INJURY 02-17-2010 [facility] OTHER AND MEDICAL UNSPECIFIED IMAGING ASS HIP AND THIGH 9597 INJURY 02-17-2010 [facility] OTHER&UNSPE MEDICAL CIFIED KNEE IMAGING ASS LEG ANKLE&FOOT 920 CONTUSION 02-16-2010 [facility] OF FACE EMERGENCY SCALP AND SERVICES NECK EXCEPT EYE 02156 CONTUSION 02-16-2010 [facility] OF HIP [facility] INC E8859 FALL FROM 02-16-2010 [facility] OTHER EMERGENCY SLIPPING SERVICES TRIPPING OR STUMBLING 23107 INSOMNIA 02-04-2010 [facility] UNSPECIFIED ASSOCIATES V0382 NEED PROPH 02-04-2010 [facility] VACCINATION ASSOCIATES AGAINST STREP PNEUMONE 86491 URINARY 11-04-2009 [facility] FREQUENCY ASSOCIATES 2811 OTHER 08-24-2009 [facility] VITAMIN B12 ASSOCIATES DEFICIENCY ANEMIA 514 PULMONARY 08-24-2009 [facility] CONGESTION ASSOCIATES AND HYPOSTASIS E8490 PLACE OF 07-10-2009 [facility] OCCURRENCE, MEDICAL HOME IMAGING ASSOCIATES 54932 GEN 04-15-2009 [facility] INVOLVING MULTIPLE SITES 7919 OTHER 03-31-2009 [facility] NONSPECIFIC [facility] FINDING INC EXAMINATION OF URINE 19005 NEPHRITIS&N 03-24-2009 [facility] EPHROPATHY PRIMARY W/OTH CARE CENTER PATHOLOG KIDNEY LES 33199 NOCTURIA 03-11-2009 [facility] 73498 HYPERSOMNIA 02-26-2009 [facility] UNSPECIFIED 25359 DIAB 11-28-2008 [facility] W/OPHTH GEE A MANIFESTS TYPE II/UNS TYPE UNCNTRL 4619 ACUTE 06-17-2008 [facility] SINUSITIS, ASSOCIATES UNSPECIFIED 8082 CLOSED 03-18-2008 [facility] FRACTURE OF L REHAB PUBIS ASSOC PSC 7089 UNSPECIFIED 11-17-2007 [facility] URTICARIA ASSOCIATES 6868 OTH SPEC 11-12-2007 [facility] SKIN&SUBCUT PROF SERV TISSUE V642 SURG/OTH 11-11-2007 [facility] PROC NOT [facility] CARRIED OUT INC BECAUSE PTS DECN Immunization Name Date Route CVX Reacti Commen Provid Is Given on t er Refuse d PPSV23 FAMILY No 2009 CARE VACCIN ASSOCI E 2 ATES YRS OR OLDER FOR SUBQ/I M USE Procedures Procedure DOS Code Location Performer Comment SBSQ [address] [place] [address] PHYSICIAN CARE/DAY S GROUP 25 MINUTES GROUND A0425 [facility] 7 AMBULANCE AMBULANCE PER SERVICE SERVICE STATUTE MILE AMBULANCE A0429 [facility] SERVICE 7 AMBULANCE AMBULANCE BLS SERVICE SERVICE EMERGENCY TRANSPORT INITIAL 15326 [place] [address] PHYSICIAN CARE/DAY S GROUP 70 MINUTES ECG 92595 [facility] BARRETO JR ROUTINE 7 [facility] W/LEAST P 12 LDS I&R ONLY MEASUREME [id number] [facility] NT 7 [facility] CARDIAC INC INC SAMPLING PRESS LT HEART PERQ DILAT [id number] [facility] CORONARY 7 [facility] ART 2 ART INC INC 2 RX-ELUT [place] DEVC PERQ FLUORO [id number] [facility] MULTI 7 [facility] CORONARY INC INC ARTERIES LOW OSMOLAR CONT FLUOROSCO [id number] [facility] PY LEFT 7 [facility]OS[facility] HEART LOW INC INC OSMOLAR CONTRAST FLUORO [id number] [facility] BILATERAL 7 [facility]OS[facility] RENAL INC INC ART LOW OSMOLAR CONTRST COLLECTIO 06508 [facility] N VENOUS 6 [facility]OS[facility] BLOOD INC INC VENIPUNCT URE HEMOGLOBI 37743 ZACK [facility]ACK N 6 MEM [facility]OSP [facility] GLYCOSYLA [place] [address] [facility] THYROID 6 [facility] HOS[facility]OS[facility] STIMULATI INC INC NG HORMONE TSH COMPREHEN 01761 ZACK DIXON SIVE 6 [facility] METABOLIC INC INC PANEL LIPID 14675 Z[facility] PANEL 6 [facility] INC INC RENAL 98013 COMBINED COMBINED FUNCTION 6 PHYSICIAN PHYSICIAN PANEL S [place] [facility] [place] VOLUME 86042 COMBINED COMBINED MEASUREME 6 PHYSICIAN PHYSICIAN NT TIMED S LA S LA COLLECTIO N EACH BLOOD 37731 COMBINED COMBINED COUNT 6 PHYSICIAN PHYSICIAN COMPLETE S LA S LA AUTO&AUTO DIFRNTL WBC CULTURE 11318 COMBINED COMBINED BCT 6 PHYSICIAN PHYSICIAN ISOL&PRSM S LA S LA PTV ID ISOLATE EA URINE 25 [id number] COMBINED COMBINED HYDROXY 6 PHYSICIAN PHYSICIAN INCLUDES S LA S LA FRACTIONS IF PERFORMED CULTURE 85302 COMBINED COMBINED BACTERIAL 6 PHYSICIAN PHYSICIAN S LA S LA QUANTTATI VE COLONY COUNT URINE URNLS DIP 96699 COMBINED COMBINED 6 PHYSICIAN PHYSICIAN STICK/TAB S LA S LA LET REAGENT AUTO MICROSCOP Y BLD GLU A4253 ARRIVA ARRIVA TEST/REAG 6 MEDICAL MEDICAL T STRIPS HOME BLD GLU MON-50 NORMAL A4256 ARRIVA ARRIVA LOW AND 6 MEDICAL MEDICAL HIGH CALIBRATO R SOLUTION/ CHIPS LANCETS A4259 ARRIVA ARRIVA PER BOX 6 [facility] A4258 ARRIVA ARRIVA WERED 6 MEDICAL JOURNAL CLERK FOR LANCET EACH COLLECTIO 13215 ZACK DIXON N VENOUS 6 [facility] BLOOD INC INC VENIPUNCT U[facility] G0378 ZACK DIXON OBSERVATI 6 [facility] ON INC INC SERVICE PER HOUR GLUC BLD 00944 ZACKSHANDA DIXON GLUC MNTR 6 [facility] DEV INC INC CLEARED FDA SPEC HOME USE BASIC 23866 ZACK DIXON METABOLIC 6 [facility] PANEL INC INC CALCIUM TOTAL CREATINE 37269 [facility]ACK [facility] KINASE 6 [facility] TOTAL INC INC BLOOD 15100 ZACK DIX[facility] COUNT 6 [facility] COMPLETE INC INC AUTO&[place] [address] ZACK [facility]ON TROPONIN 6 [facility] QUANTITAT INC INC MARIBEL CREATINE 42467 ZACK DIXON KINASE MB 6 [facility] FRACTION INC INC ONLY COMPREHEN 12697 ZACKSHANDA DIXON SIVE 6 [facility] METABOLIC INC INC PANEL GLUC BLD 87140 ZACKSHANDA DIXON GLUC MNTR 6 [facility] DEV INC INC CLEARED FDA SPEC HOME USE URNLS DIP 18838 ZACK ZACK 6 [facility] STICK/TAB INC INC LET REAGENT AUTO MICROSCOP Y THER 34523 ZACK DIXON PROPH/DX 6 [facility] NJX IV INC INC PUSH SINGLE/1S T SBST/DRUG GROUND A0425 [facility] 6 [facility] AMBULANCE PER SERVICE SERVICE STATUTE MILE PRESSURIZ 86026 ZACK DIXON ED/NONPRE 6 [facility] SSURIZED INC INC [facility]HAL[facility]IO [facility] G0378 [facility] OBSERVATI 6 [facility] ON INC INC SERVICE PER HOUR ECG 72937 [facility] ROUTINE 6 [facility] ECG INC INC W/LEAST 12 LDS TRCG ONLY W/O I&R COLLECTIO 69266 ZACK [facility]IX[facility] N VENOUS 6 [facility] BLOOD INC INC VENIPUNCT URE AMB A0427 [facility] SERVICE 6 AM[facility]ANCE AMBULANCE ALS SERVICE SERVICE EMERGENCY TRANSPORT LEVEL 1 ECG 18009 ZACK MCLEAN ROUTINE 6 [facility] W/LEAST P 12 LDS I&R ONLY [...] TYPE SIDE EQUIPME EQUIPME RAIL W/MATTRSS LIPID 25469 ZACK DIXON PANEL 6 [facility] INC INC BASIC 54698 ZACK DIXON METABOLIC 6 [facility] PANEL INC INC CALCIUM TOTAL HEMOGLOBI 25256 ZACK DIXON N 6 [facility] GLYCOSYLA INC INC ALEX A1C COLLECTIO 33463 ZACK DIXON N VENOUS 6 [facility] BLOOD INC INC VENIPUNCT URE STANDARD K0001 REID REIDJOHN DELGADILLOELAINEI 6 HOME HOME R MEDICAL MEDICAL EQUIPME EQUIPME HOS BED E0260 REID REID SEMI-ELEC 6 HOME HOME W/ANY MEDICAL MEDICAL TYPE SIDE EQUIPME EQUIPME RAIL W/MATTRSS URNLS DIP 24890 ZACK DIXON 6 [facility] [...] CELL LIBERTY BG MON OWND PT OBSERVATI 70674 [facility] WILL ON CARE 6 [facility] CHARMAINE DISCHARGE INTERNAL MEDI MANAGEMEN T GLUC BLD 44456 ZACK DIXON GLUC MNTR 6 [facility] DEV INC INC CLEARED FDA [facility] [id number] ZACK DIXON OBSERVATI 6 [facility] ON INC [facility] G0378 ZACK DIXON OBSERVATI 6 [facility] ON INC INC SERVICE PER HOUR COLLECTIO 00649 ZACK DIXON N VENOUS 6 [facility] BLOOD INC INC VENIPUNCT URE GLUC BLD 71769 ZACK DIXON GLUC MNTR 6 [facility] DEV INC [place] [address] ZACK DIXON TROPONIN 6 [facility] QUANTITAT INC INC MARIBEL BLOOD 35168 ZACK DIXON COUNT 6 [facility] COMPLETE INC INC AUTO&AUTO DIFRNTL WBC BASIC 06486 ZACK DIXON METABOLIC 6 [facility] [place] [address] ZACK DIXON LIPASE 6 [facility] INC INC CREATINE 72845 ZACK DIXON KINASE 6 [facility] TOTAL INC INC BLOOD 92643 ZACK DIXON COUNT 6 [facility] COMPLETE INC INC AUTO&[place] [address] ZACK DIXON TROPONIN 6 [facility] QUANTITAT INC INC MARIBEL CREATINE 44037 ZACK DIXON KINASE MB 6 [facility] FRACTION INC INC ONLY COMPREHEN 12064 ZACK DIXON SIVE 6 [facility] METABOLIC INC INC PANEL GLUC BLD 84643 ZACK DIXON GLUC MNTR 6 [facility] DEV INC INC CLEARED FDA SPEC HOME USE URNLS DIP 31446 ZACK DIXON 6 [facility] STICK/TAB INC INC LET REAGENT AUTO MICROSCOP Y GROUND A0425 [facility] MILEAGE 6 AMBULANCE AMBULANCE PER SERVICE SERVICE STATUTE MILE INITIAL 70026 [facility] VINAY CAZARES [address] [place] [address] ON INTERNAL CARE/DAY MED 30 MINUTES INJECTION J2405 ZACK DIXON 6 [facility] ONDANSETR INC INC ON HCL [place] 1 [place] [address] ZACK DIXON INFUSION 6 [facility] THERAPY/P INC INC ROPHYLAXI S /DX 1ST TO 1 HR THERAPEUT 94088 ZACK DIXON IC 6 [facility] INJECTION INC INC IV PUSH EACH NEW DRUG COLLECTIO 65387 ZACK DIXON N VENOUS 6 [facility] BLOOD INC INC VENIPUNCT URE RADIOLOGI 26720 ZACK DIXON C 6 [facility] EXAMINATI INC [place] [address] ZACK DIXON HEAD/BRAI 6 [facility] N W/O INC INC CONTRAST MATERIAL ECG 15107 ZACK BARRETO JR ROUTINE 6 [facility] W/LEAST P 12 LDS I&R ONLY AMB A0427 [facility] SERVICE 6 AMBULANCE AMBULANCE ALS SERVICE SERVICE EMERGENCY TRANSPORT LEVEL 1 ECG 06290 ZACK DIXON ROUTINE 6 [facility] ECG INC INC W/LEAST 12 LDS TRCG ONLY W/O I&R HOSPITAL G0378 ZACK DIXON OBSERVATI 6 [facility] ON INC INC SERVICE PER HOUR ALBUMIN 42508 COMBINED COMBINED SERUM 6 PHYSICIAN PHYSICIAN PLASMA/WH S LA S LA OLE BLOOD BLOOD 95809 COMBINED COMBINED COUNT 6 PHYSICIAN PHYSICIAN COMPLETE S LA S LA AUTO&[place] [address] COMBINED COMBINED BLOOD/URI 6 PHYSICIAN [place] [address] COMBINED COMBINED PHOSPHORU 6 PHYSICIAN [place]YS[place] [address] COMBINED COMBINED MAGNESIUM 6 PHYSICIAN PHYSICIAN S LA S LA CYANOCOBA 93773 COMBINED COMBINED SOHA 6 PHYSICIAN PHYSICIAN VITAMIN S [place] S LA B-12 [place] [address] COMBINED COMBINED THYROID 6 PHYSICIAN PHYSICIAN STIMULATI S LA S LA NG HORMONE TSH BASIC 79911 COMBINED COMBINED METABOLIC 6 PHYSICIAN PHYSICIAN PANEL S LA S LA CALCIUM TOTAL HOS BED E0260 REID MATHEWS SEMI-ELEC 6 HOME HOME W/ANY MEDICAL MEDICAL TYPE SIDE EQUIPME EQUIPME RAIL W/MATTRSS STANDARD K0001 REID CHAUDHARII 6 HOME HOME R MEDICAL MEDICAL EQUIPME EQUIPME PHYS G0179 [facility] RE-CERT 6 [facility] TRACY MCR-COVR INTERNAL [facility] MED SRVC RE-CERT PRD BLOOD 79540 ZACK DIXON COUNT 6 [facility] COMPLETE INC INC AUTO&AUTO DIFRNTL WBC COMPREHEN 69609 ZACK DIXON SIVE 6 [facility] METABOLIC INC INC PANEL GLUC BLD 40300 ZACK DIXON GLUC MNTR 6 [facility] DEV INC INC CLEARED FDA SPEC HOME USE URNLS DIP 98944 ZACK DIXON 6 [facility] STICK/TAB INC INC LET REAGENT AUTO MICROSCOP Y GROUND A0425 [facility]ANCE AMBULANCE PER SERVICE SERVICE STATUTE MILE AMBULANCE A0429 [facility] SERVICE 6 AMBULANCE AMBULANCE BLS SERVICE SERVICE EMERGENCY TRANSPORT SBSQ 55268 [facility] NURSING 6 [facility] TRACY FACIL INTERNAL CARE/DAY MED NEW PROBLEM 25 MIN SBSQ 15741 [facility] CHAPMAN NURSING 6 [facility] HOL FACIL INTERNAL CARE/DAY MEDI MINOR COMPLJ 15 MIN STANDARD K0001 REID CHAUDHARII 6 HOME HOME R MEDICAL MEDICAL EQUIPME EQUIPME HOS BED E0260 REID MATHEWS SEMI-ELEC 6 HOME HOME W/ANY MEDICAL MEDICAL TYPE SIDE EQUIPME EQUIPME RAIL W/MATTRSS RADEX 13392 SYMPHONY SYMPHONY SPINE 6 [facility] MOBILEX THORACIC 2 VIEWS RADEX 84882 SYMPHONY SYMPHONY SPINE 6 [facility] MOBILEX CERVICAL 2 OR 3 VIEWS SBSQ [address] [facility] [address] INTERNAL CARE/DAY MED NEW PROBLEM 25 MIN HOS BED E0260 REID MATHEWS SEMI-ELEC 5 HOME HOME W/ANY MEDICAL MEDICAL TYPE SIDE EQUIPME EQUIPME RAIL W/MATTRSS STANDARD K0001 REID GLASSJOHN CHAUDHARII 5 HOME HOME R MEDICAL MEDICAL EQUIPME EQUIPME RADIOLOGI 67337 ZACK Lopez EXAM 5 [facility] CHEST 2 INC INC VIEWS FRONTAL&L ATERAL AMB A0427 [facility] SERVICE 5 AMBULANCE AMBULANCE ALS SERVICE SERVICE EMERGENCY TRANSPORT LEVEL 1 SUSCEPTIB 31317 ZACK DIXON LTY STDY 5 [facility] ANTIMICRB INC INC IAL MICRO/AGA R DILUTJ COMPREHEN 17562 ZACK DIXON SIVE 5 [facility] METABOLIC INC INC PANEL BLOOD 39984 ZACK DIXON COUNT 5 [facility] COMPLETE INC INC AUTO&AUTO DIFRNTL WBC CULTURE 20242 ZACK DIXON BACTERIAL 5 [facility] INC INC QUANTTATI VE COLONY COUNT URINE GROUND A0425 [facility] MILEAGE 5 AMBULANCE AMBULANCE PER SERVICE SERVICE STATUTE MILE PRESSURIZ 56689 ZACK DIXON ED/NONPRE 5 [facility] SSURIZED INC INC INHALATIO N TREATMENT URNLS DIP 73152 ZACK DIXON 5 [facility] STICK/TAB INC INC LET REAGENT AUTO MICROSCOP Y NATRIURET 04159 ZACK DIXON IC 5 [facility] PEPTIDE INC INC STANDARD K0001 REID REIDJOHN CHAUDHARII 5 HOME HOME R MEDICAL MEDICAL EQUIPME EQUIPME HOS BED E0260 REID MATHEWS SEMI-ELEC 5 HOME HOME W/ANY MEDICAL MEDICAL TYPE SIDE EQUIPME EQUIPME RAIL W/MATTRSS SBSQ 60747 [facility] 5 CULAR MAT CARE/DAY CONSULTAN 25 TS O MINUTES INITIAL 13850 [facility] 70 TS O MINUTES ECHO 81255 [facility]STH[facility] 5 MEDICAL JUAN J C R-T 2D SERV W/WO FOUNDATIO M-MODE N REC F-UP/LMTD RADIOLOGI 52936 MAINE SHERI C EXAM 5 MEDICAL MELIDA CHEST 2 IMAGING VIEWS ASS FRONTAL&L ATERAL STANDARD K0001 REID REID DELGADILLOCHAI 5 HOME HOME R MEDICAL MEDICAL EQUIPME EQUIPME HOS BED E0260 REID REID SEMI-ELEC 5 HOME HOME W/ANY MEDICAL MEDICAL TYPE SIDE EQUIPME EQUIPME RAIL W/MATTRSS THERAPEUT 84584 ZACK DIXON IC PX 1/> 5 [facility] AREAS INC INC EACH 15 MIN EXERCISES BLD GLU A4253 ARRIVA ARRIVA TEST/REAG 5 MEDICAL MEDICAL T STRIPS HOME BLD GLU MON-50 NORMAL A4256 ARRIVA ARRIVA LOW AND 5 MEDICAL MEDICAL HIGH CALIBRATO R SOLUTION/ CHIPS LANCETS A4259 ARRIVA ARRIVA PER BOX 5 MEDICAL MEDICAL OF 100 URNLS DIP 33010 ZACK CALDERON 5 [facility] LET RGNT P NON-AUTO W/O MICRSCP THERAPEUT 97255 ZACK DIXON IC PX 1/> 5 [facility] AREAS INC INC EACH 15 MIN EXERCISES STANDARD K0001 REID DELGADILLOCHAI 5 HOME HOME R MEDICAL MEDICAL EQUIPME EQUIPME HOS BED E0260 REID REID SEMI-ELEC 5 HOME HOME W/ANY MEDICAL MEDICAL TYPE SIDE EQUIPME EQUIPME RAIL W/MATTRSS THERAPEUT 51379 ZACK DIXON IC PX 1/> 5 [facility] AREAS INC INC EACH 15 MIN EXERCISES THERAPEUT 86480 ZACK DIXON IC PX 1/> 5 [facility] AREAS INC INC EACH 15 MIN EXERCISES HEMOGLOBI 74799 ZACK Yoo 5 [facility] GLYCOSYLA INC INC ALEX A1C URNLS DIP 80254 ZACK DIXON 5 [facility] STICK/TAB INC INC LET REAGENT AUTO MICROSCOP Y RENAL 47221 ZACK DIXON FUNCTION 5 [facility] PANEL INC INC SUSCEPTIB 32478 ZACK DIXON LTY STDY 5 [facility] ANTIMICRB INC INC IAL MICRO/AGA R DILUTJ BLOOD 68888 ZACKSHANDA ELLIOTTON COUNT 5 [facility] COMPLETE INC INC AUTO&AUTO DIFRNTL WBC 25 27343 ZACK DIXON HYDROXY 5 [facility] INCLUDES INC INC FRACTIONS IF PERFORMED CULTURE 85096 ZACK ELLIOTTON BACTERIAL 5 [facility] INC INC QUANTTATI VE COLONY COUNT URINE CULTURE 30832 ZACK DIXON BCT 5 [facility] ISOL&PRSM INC [place] [address] ZACK DIXON THYROID 5 [facility] STIMULATI INC INC NG HORMONE TSH COLLECTIO 03773 ZACK DIXON N VENOUS 5 [facility] BLOOD INC INC VENIPUNCT URE THERAPEUT 67668 ZACKSHANDA DIXON IC PX 1/> 5 [facility] AREAS INC INC EACH 15 MIN EXERCISES THERAPEUT 74636 ZACK DIXON IC PX 1/> 5 [facility] AREAS INC INC EACH 15 MIN EXERCISES THERAPEUT 89756 ZACK DIXON IC PX 1/> 5 [facility] AREAS INC INC EACH 15 MIN EXERCISES THERAPEUT 47144 ZACK DIXON IC PX 1/> 5 [facility] AREAS INC INC EACH 15 MIN EXERCISES CATH CLCT P9612 ZACK CALDERON SPECIMEN 5 [facility] PT ALL P PLACES SERVICE PHYSICAL 24746 ZACK DIXON THERAPY 5 [facility] EVALUATIO INC INC N CULTURE 61543 ZACK DIXON BACTERIAL 5 [facility] INC INC QUANTTATI VE COLONY COUNT URINE CULTURE 29526 ZACK DIXON BCT 5 [facility] ISOL&PRSM INC INC PTV ID ISOLATE EA URINE URNLS DIP 52513 ZACK CALDERON 5 [facility] STICK[facility]OSP[facility] LET RGNT P NON-AUTO W/O MICRSCP SUSCEPTIB 13253 ZACK DIXON LTY STDY 5 [facility] [...] EQUIPME EQUIPME STATIONAR Y W/FIXED ARMS ONELIA 52342 ZACK CALDERON POST-VOID 5 [facility] RESIDUAL P URINE&/BL ADDER CAP SUSCEPTIB 80643 ZACK DIXON LTY STDY 5 [facility] ANTIMICRB INC INC IAL MICRO/AGA R DILUTJ CULTURE 32101 ZACK DIXON BCT 5 [facility] ISOL&PRSM INC INC PTV ID ISOLATE EA URINE CULTURE 22899 ZACK DIXON BACTERIAL 5 [facility] INC INC QUANTTATI VE COLONY COUNT URINE RADIOLOGI 27968 SYMPHONY SYMPHONY C 5 MOBILEX MOBILEX EXAMINATI ON CHEST SINGLE VIEW FRONTAL RADIOLOGI 65385 SYMPHONY SYMPHONY C 5 MOBILEX MOBILEX EXAMINATI ON CHEST SINGLE VIEW FRONTAL DEBRIDEME 15716 [facility] ARE ANDREZ ANY METHOD 6/> INITIAL 83519 [facility] 5 ARE ANDREZ FACILITY CARE/DAY 25 MINUTES SBSQ 45987 [facility] 5 [facility] INTERNAL CARE/DAY MED NEW PROBLEM 25 MIN BASIC 92516 COMBINED COMBINED METABOLIC 5 PHYSICIAN PHYSICIAN PANEL S LA S LA CALCIUM TOTAL BLOOD 85296 COMBINED COMBINED COUNT 5 PHYSICIAN PHYSICIAN COMPLETE S LA S LA AUTO&[place] [address] LIZZ BEINEKE ABDOMINAL 5 MEDICAL KAY REAL IMAGING TIME ASS W/[place] [address] LIZZ SHERI ABDOMEN & 5 MEDICAL MELIDA PELVIS IMAGING W/O ASS CONTRAST MATERIAL RADIOLOGI 92926 MAINE RODRIGUEZ ALL C 5 MEDICAL EXAMINATI IMAGING ON CHEST ASS SINGLE VIEW FRONTAL ECG 21872 ZACK MCLEAN ROUTINE 5 [facility] W/LEAST P 12 LDS I&R ONLY CRITICAL 59876 ZACK DIXON CARE 5 [facility] ED P P PATIENT INIT 30-74 MIN RADEX 66837 [facility] MAST[facility]IDS 5 MEDICAL KAY COMPL IMAGING MINIMUM 3 ASS VIEWS MO SIDE RADEX 84316 [facility] SPINE 5 MEDICAL KAY CERVICAL IMAGING 4 OR 5 ASS VIEWS [facility] A4258 ARRIVA ARRIVA WERED 5 MEDICAL JOURNAL CLERK FOR LANCET EACH BLD GLU A4253 ARRIVA ARRIVA TEST/REAG 5 MEDICAL MEDICAL T STRIPS HOME BLD GLU MON-50 LANCETS A4259 ARRIVA ARRIVA PER BOX 5 MEDICAL MEDICAL OF 100 NORMAL A4256 ARRIVA ARRIVA LOW AND 5 MEDICAL MEDICAL HIGH CALIBRATO R SOLUTION/ CHIPS COMPREHEN 65960 COMBINED COMBINED SIVE 5 PHYSICIAN PHYSICIAN METABOLIC S LA S LA PANEL RENAL 04902 ZCAK DIXON FUNCTION 5 [facility] PANEL INC INC COLLECTIO 21984 ZACK DIXON N VENOUS 5 [facility] BLOOD INC INC VENIPUNCT URE THERAPEUT 88096 ZACK DIXON IC 5 [facility] PROPHYLAC INC INC TIC/DX INJECTION SUBQ/IM INJECTION J0897 ZACK DIXON 5 [facility] DENOSUMAB INC INC 1 MG DXA BONE 69391 ZACK DIXON DENSITY 4 [facility] STUDY 1/> INC INC SITES AXIAL SKEL URNLS DIP 90408 ZACK DIXON 4 [facility] STICK/TAB INC INC LET REAGENT AUTO MICROSCOP Y RENAL 74886 ZACK DIXON FUNCTION 4 [facility] PANEL INC INC SUSCEPTIB 24422 ZACK DIXON LTY STDY 4 [facility] ANTIMICRB INC INC IAL MICRO/AGA R DILUTJ CREATININ 11127 ZACK DIXON E OTHER 4 [facility] SOURCE INC INC PROTEIN 57142 ZACK ELLIOTTON XCPT 4 [facility] REFRACTOM INC INC ETRY SERUM PLASMA/WH L BLD BLOOD 77689 ZACK DIXON COUNT 4 [facility] COMPLETE INC INC AUTO&[place] [address] ZACK DIXON PARATHORM 4 [facility] ONE INC INC 25 10729 ZACK DIXON HYDROXY 4 [facility] INCLUDES INC INC FRACTIONS IF PERFORMED CULTURE 87610 ZACK DIXON BCT 4 [facility] ISOL&PRSM INC INC PTV ID ISOLATE EA URINE CULTURE 58801 ZACK DIXON BACTERIAL 4 [facility] INC INC QUANTTATI VE COLONY COUNT URINE COLLECTIO 71475 ZACK DIXON N VENOUS 4 [facility] BLOOD INC INC VENIPUNCT URE COMPREHEN 05929 COMBINED COMBINED SIVE 4 PHYSICIAN PHYSICIAN METABOLIC S LA S LA PANEL COMPREHEN 94388 ZACK DIXON SIVE 4 [facility] [address] ZACK DIXON TROPONIN 4 [facility] QUANTITAT INC INC MARIBEL BLOOD 19023 ZACK DIXON COUNT 4 [facility] COMPLETE INC INC AUTO&AUTO DIFRNTL WBC CREATINE 91862 ZACK DIXON KINASE MB 4 [facility] FRACTION INC INC ONLY CREATINE 78372 ZACK DIXON KINASE 4 [facility] TOTAL INC INC URNLS DIP 39701 ZACK DIXON 4 [facility] STICK/TAB INC INC LET REAGENT AUTO MICROSCOP Y PRESSURIZ 97516 ZACK DIXON ED/NONPRE 4 [facility] SSURIZED INC INC INHALATIO N TREATMENT RADIOLOGI 51930 ZACK DIXON C EXAM 4 [facility] CHEST 2 INC INC VIEWS FRONTAL&L ATERAL COLLECTIO 36609 ZACK DIXON N VENOUS 4 [facility] BLOOD INC INC VENIPUNCT URE RENAL 44688 ZACK DIXON FUNCTION 4 [facility] PANEL INC INC 25 35397 ZACK DIXON HYDROXY 4 [facility] INCLUDES INC INC FRACTIONS IF PERFORMED BLOOD 12761 ZACK DIXON COUNT 4 [facility] COMPLETE INC INC AUTO&AUTO DIFRNTL WBC THERAPEUT 60363 ZACK DIXON IC 4 [facility] PROPHYLAC INC INC TIC/DX INJECTION SUBQ/IM INJECTION J0897 ZACKSHANDA DIXON 4 [facility] DENOSUMAB INC INC 1 MG BASIC 84013 COMBINED COMBINED METABOLIC 4 PHYSICIAN PHYSICIAN PANEL S LA S LA CALCIUM TOTAL COMPREHEN 56681 COMBINED COMBINED SIVE 4 PHYSICIAN PHYSICIAN METABOLIC S LA S LA PANEL BASIC 85185 ZACK DIXON METABOLIC 4 [facility] PANEL INC INC CALCIUM TOTAL COLLECTIO 96282 ZACK DIXON N VENOUS 4 [facility] BLOOD INC INC VENIPUNCT URE INJECTION J0897 ZACK ELLIOTTON 4 [facility] DENOSUMAB INC INC 1 MG THERAPEUT 54199 ZACK DIXON IC 4 [facility] PROPHYLAC INC INC TIC/DX INJECTION SUBQ/IM INJECTION 71135 [facility] 1 TENDON 3 PHYSICIAN PHYSICIAN S GROUP S GROUP SHEATH/LI GAMENT APONEUROS IS ARTHROCEN 58010 [facility] TESIS 3 PHYSICIAN TONI ASPIR&/IN S GROUP J MAJOR JT/BURSA W/O US INJ J0702 [facility] BETAMETHA 3 PHYSICIAN TONI SONE S GROUP ACETATE & PHOSPHATE 3 MG COLLECTIO 08955 ZACK DIXON N VENOUS 3 [facility] BLOOD INC INC VENIPUNCT URE URNLS DIP 06300 ZACK DIXON 3 [facility] STICK/TAB INC INC LET REAGENT AUTO MICROSCOP Y DXA BONE 27837 MAINE SHERI DENSITY 3 MEDICAL MELIDA STUDY 1/> IMAGING SITES ASS AXIAL SKEL BASIC 23765 COMBINED COMBINED METABOLIC 3 PHYSICIAN PHYSICIAN [place] [address] ZACK DIXON PARATHORM 3 [facility] ONE INC INC 25 02896 ZACK DIXON HYDROXY 3 [facility] INCLUDES INC INC FRACTIONS IF PERFORMED ALBUMIN 14856 ZACK DIXON URINE 3 [facility] MICROALBU INC INC MIN QUANTIATI VE BLOOD 23386 ZACK DIXON COUNT 3 [facility] COMPLETE INC INC AUTO&AUTO DIFRNTL WBC RENAL 23281 ZACK DIXON FUNCTION 3 [facility] PANEL INC INC CUL BACT 36774 ZACK DIXON XCPT 3 [facility] URINE INC INC BLOOD/STO OL AEROBIC ISOL IAADI 53945 ZACK DIXON INFLUENZA 3 [facility] B VIRUS INC INC IAADI 89331 ZACK DIXON INFFLUENZ 3 [facility] [place] [address] ZACK DIXON STREPTOCO 3 [facility] CCUS INC INC GROUP A RADIOLOGI 59243 [facility] EXAM 3 MEDICAL MELIDA CHEST 2 IMAGING VIEWS ASS FRONTAL&L ATERAL BASIC 53725 COMBINED COMBINED METABOLIC 3 PHYSICIAN PHYSICIAN PANEL [place] [address] COMBINED COMBINED BLOOD/URI 3 PHYSICIAN PHYSICIAN C ACID S LA S LA FIBRIN 18609 ZACK DIXON DGRADJ 3 [facility] PRODUCTS INC INC D-DIMER QUAL/SEMI BARB CREATINE 80092 ZACK DIXON KINASE 3 [facility] TOTAL INC INC TECHNETIU A9540 ZACK Flanagan TC-99M 3 [facility] MAA DX INC INC STDY DOSE UP TO 10 MCI TECHNETIU A9567 ZACK DIXON M TC-99M 3 [facility] PENTETATE INC INC DX AEROSOL TO 75 MCI BLOOD 26218 ZACK DIXON COUNT 3 [facility] COMPLETE INC INC AUTO&AUTO DIFRNTL WBC CREATINE 24442 ZACK DIXON KINASE MB 3 [facility] FRACTION INC INC ONLY COMPREHEN 75324 ZACK DIXON SIVE 3 [facility] [place] [address] ZACK DIXON TROPONIN 3 [facility] QUANTITAT INC INC MARIBEL PULMONARY 30332 ZACK DIXON 3 [facility] VENTILATI INC INC ON & PERFUSION IMAGING THER 69798 ZACK DIXON PROPH/DX 3 [facility] NJX IV INC INC PUSH SINGLE/1S T SBST/DRUG RADIOLOGI 74653 ZACK DIXON C EXAM 3 [facility] CHEST 2 INC INC VIEWS FRONTAL&L ATERAL RHYTHM 28621 ZACK DIXON ECG 1-3 3 [facility] LEADS INC INC TRACING ONLY W/O I&R ECG 44326 EMEKA LIRA ROUTINE 3 EMERGENCY ECG SERVICES W/LEAST 12 LDS I&R ONLY RADIOLOGI 01085 ZACK DIXON C 3 [facility] EXAMINATI INC INC ON CHEST SINGLE VIEW FRONTAL ECG 91853 ZACK DIXON ROUTINE 3 [facility] ECG INC INC W/LEAST 12 LDS TRCG ONLY W/O I&R COLLECTIO 51507 ZACK DIXON N VENOUS 3 [facility] BLOOD INC INC VENIPUNCT URE BLOOD 38643 ZACK DIXON COUNT 3 [facility] COMPLETE INC INC AUTO&AUTO DIFRNTL WBC RENAL 07713 ZACK DIXON FUNCTION 3 [facility] PANEL INC INC THERAPEUT 94707 ZACK DIXON IC 3 [facility] PROPHYLAC INC INC TIC/DX INJECTION SUBQ/IM INJECTION J0897 ZACK DIXON 3 [facility] DENOSUMAB INC INC 1 MG THERAPEUT 88819 ZACK DIXON IC PX 1/> 3 [facility] AREAS INC INC EACH 15 MIN EXERCISES APPLICATI 07534 ZACK DIXON ON 3 [facility] MODALITY INC INC 1/> AREAS HOT/COLD PACKS APPL 21549 ZACK DIXON MODALITY 3 [facility] 1/> AREAS INC INC 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 G0283 ZACK [facility]IXON 1/> [facility] INC INC WND CARE PART TX PLAN E-STIM G0283 ZACK DIXON 1/> AREAS [facility] INC INC WND CARE PART TX PLAN APPL 59388 ZACK DIXON MODALITY 3 [facility] 1[facility] AREAS INC INC 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 APPLICATI 36185 [facility]ACK [facility] ON [facility] INC 1/> AREAS HOT/COLD PACKS THERAPEUT 62013 ZACK DIXON IC PX 1/> 3 [facility] INC INC EACH 15 MIN EXERCISES THERAPEUT 00835 ZACK DIXON IC PX 1/> 3 [facility] INC INC EACH 15 MIN EXERCISES APPLICATI 49819 ZACK [facility]IXON ON 3 [facility] INC 1/> AREAS HOT/COLD PACKS APPL 87997 ZACK DIXON MODALITY 3 [facility]/> AREAS INC INC 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 G0283 ZACK DIXON 1/> [facility] O[facility] INC INC WND CARE PART TX PLAN E-STIM G0283 ZACK DIXON 1/> AREAS [facility] INC INC WND CARE PART TX PLAN APPL 91503 ZACK DIXON MODALITY 3 [facility]/> AREAS INC INC 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 APPLICATI 12469 ZACK D[facility] ON 3 [facility] INC INC 1/> AREAS HOT/COLD PACKS THERAPEUT 98285 ZACK DIXON IC PX 1/> 3 [facility] INC EACH 15 MIN EXERCISES THERAPEUT 86490 ZACK DIXON IC PX 1/> 3 [facility] INC INC EACH 15 MIN EXERCISES E-STIM G0283 ZACK DIXON 1/> AREAS 3 [facility] O[facility] THAN INC INC WND CARE PART TX PLAN E-STIM G0283 ZACK DIXON 1/> AREAS 3 [facility] O[facility] INC INC WND CARE PART TX PLAN THERAPEUT 13065 ZACK DIXON IC PX 1/> 3 [facility] INC INC EACH 15 MIN EXERCISES APPLICATI 84291 ZACK DIXON ON 3 [facility] INC 1/> AREAS HOT/COLD PACKS APPL 68038 ZACK DIXON MODALITY 3 [facility]/> AREAS INC INC 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 CULTURE 30132 COMBINED COMBINED BACTERIAL 3 PHYSICIAN PHYSICIAN S LA S LA QUANTTATI VE COLONY COUNT URINE APPL 04370 ZACK DIXON MODALITY 3 [facility] 1/> AREAS INC INC 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 APPLICATI 33719 ZACK DIXON ON 3 [facility] MOD[facility] INC INC 1/> AREAS HOT/COLD PACKS THERAPEUT 10001 ZACK DIXON IC PX 1/> 3 [facility] INC INC EACH 15 MIN EXERCISES E-STIM G0283 ZACK DIXON 1/> AREAS 3 [facility] OTH THAN INC INC WND CARE PART TX PLAN THERAPEUT 73201 ZACK DIXON IC PX 1/> 3 [facility] INC INC EACH 15 MIN EXERCISES APPL 08584 ZACK DIXON MODALITY 3 [facility]/> AREAS INC INC ULTRASOUN D EA 15 MIN THERAPEUT 20995 ZACK DIXON IC PX 1/> 3 [facility] INC EACH 15 MIN EXERCISES APPL 53032 ZACK DIXON MODALITY 3 [facility]/> AREAS INC INC 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 G0283 ZACK DIXON 1/> AREAS 3 [facility] O[facility]AN INC INC WND CARE PART TX PLAN E-STIM G0283 ZACK DIXON 1/> AREAS 3 [facility] O[facility] INC INC WND CARE PART TX PLAN APPLICATI 82088 ZACK DIXON ON 3 [facility] MODAL[facility] INC INC 1/> AREAS HOT/COLD PACKS APPL 80958 ZACK DIXON MODALITY 3 [facility]/> AREAS INC INC 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 84902 ZACK DIXON IC PX 1/> 3 [facility] INC INC EACH 15 MIN EXERCISES THERAPEUT 56294 ZACK DIXON IC PX 1/> 3 [facility] INC INC EACH 15 MIN EXERCISES APPLICATI 19445 ZACKSHANDA DIXON ON 3 [facility]AL[facility] INC INC 1/> AREAS HOT/COLD PACKS APPL 82661 ZACK DIXON MODALITY 3 [facility] 1/> AREAS INC INC 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 G0283 ZACK ZACK 1/> AREAS 3 [facility] OTH THAN INC INC WND CARE PART TX PLAN E-STIM G0283 ZACK ZACK 1/> AREAS 3 [facility] OTH THAN INC INC WND CARE PART TX PLAN APPL 15289 ZACK ZACK MODALITY 3 [facility] 1/> AREAS INC INC 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 APPLICATI 82684 ZACK DIXON ON 3 [facility] INC INC 1/> AREAS HOT/COLD PACKS APPL 75561 ZACK DIXON MODALITY 3 [facility]/> AREAS INC INC ULTRASOUN D EA 15 MIN THERAPEUT 94732 ZACK ZACK IC PX 1/> [facility] INC INC EACH 15 MIN EXERCISES THERAPEUT 72784 ZACK ZACK IC PX 1/> 3 MEM [facility] INC INC EACH 15 MIN EXERCISES APPL 54689 ZACK DIXON MODALITY 3 [facility]/> AREAS INC INC ULTRASOUN D EA 15 MIN APPL 72572 ZACK DIXON MODALITY 3 [facility] 1/> AREAS INC INC 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 G0283 ZACK DIXON 1/> AREAS 3 [facility] OTH THAN INC INC WND CARE PART TX PLAN E-STIM G0283 ZACK ZACK 1/> AREAS [facility] OTH THAN INC INC WND CARE PART TX PLAN COLLECTIO 71133 ZACK DIXON N VENOUS 3 [facility] BLOOD INC INC VENIPUNCT URE APPL 37602 ZACK DIXON MODALITY 3 [facility]/> AREAS INC INC 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 URNLS DIP 43741 [facility]ACK DIXON 3 [facility] STICK/TAB INC INC LET REAGENT AUTO MICROSCOP Y APPL 76049 ZACK DIXON MODALITY 3 [facility]/> AREAS INC INC ULTRASOUN D EA 15 MIN THERAPEUT 97977 ZACK DIXON IC PX 1/> 3 [facility] INC EACH 15 MIN EXERCISES CULTURE 87655 ZACK DIXON BACTERIAL 3 [facility] INC INC QUANTTATI VE COLONY COUNT URINE PROTEIN 86504 ZACK DIXON ELECTROPH 3 [facility] ORETIC INC INC FRACTJ&QU ANTJ SERUM CULTURE 77423 ZACK DIXON BCT 3 [facility] ISOL&PRSM INC INC PTV ID ISOLATE EA URINE 25 05967 ZACK DIXON HYDROXY 3 [facility] INCLUDES INC [place] [address] ZACK DIXON PARATHORM 3 [facility] ONE INC INC RENAL 81605 ZACK DIXON FUNCTION 3 [facility] [place] [address] ZACK DIXON NEPHELOME 3 [facility] TRY EACH INC INC ANALYTE YANELY SUSCEPTIB 88916 ZACK DIXON LTY STDY 3 [facility] ANTIMICRB INC INC IAL MICRO/AGA R DILUTJ BLOOD 48572 ZACK DIXON COUNT 3 [facility] COMPLETE INC INC AUTO&AUTO DIFRNTL WBC APPLICATI 20318 ZACK DIXON ON 3 [facility] MODALITY INC INC 1/> AREAS HOT/COLD PACKS THERAPEUT 99498 ZACK DIXON IC PX 1/> 3 [facility] INC INC EACH 15 MIN EXERCISES APPL 18229 ZACK DIXON MODALITY 3 [facility]/> AREAS INC INC 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 G0283 ZACK DIXON 1/> AREAS 3 [facility] OTH THAN INC INC WND CARE PART TX PLAN E-STIM G0283 ZACK DIXON 1/> AREAS 3 [facility] OTH THAN INC INC WND CARE PART TX PLAN APPL 59220 ZACK DIXON MODALITY 3 [facility]/> AREAS INC INC 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 88837 ZACK DIXON IC PX 1/> 3 [facility] INC INC EACH 15 MIN EXERCISES APPLICATI 24687 ZACK DIXON ON 3 [facility] MODALITY INC INC 1/> AREAS HOT/COLD PACKS APPL 56082 ZACK DIXON MODALITY 3 [facility] 1/> AREAS INC INC ULTRASOUN D EA 15 MIN APPL 57807 ZACK DIXON MODALITY 3 [facility]/> AREAS INC INC ULTRASOUN D EA 15 MIN THERAPEUT 54389 ZACK DIXON IC PX 1/> 3 [facility] INC INC EACH 15 MIN EXERCISES APPL 28519 ZACK DIXON MODALITY 3 [facility]/> AREAS INC INC 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 G0283 ZACK DIXON 1/> AREAS 3 [facility] OTH THAN INC INC WND CARE PART TX PLAN E-STIM G0283 ZACK DIXON 1/> AREAS 3 [facility] OTH THAN INC INC WND CARE PART TX PLAN APPL 50131 ZACK DIXON MODALITY 3 [facility]/> AREAS INC INC 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 APPLICATI 11915 ZACK DIXON ON 3 [facility] MODALITY INC INC 1/> AREAS HOT/COLD PACKS THERAPEUT 32383 ZACK DIXON IC PX 1/> 3 [facility] INC INC EACH 15 MIN EXERCISES APPL 70101 ZACK DIXON MODALITY 3 [facility]/> AREAS INC INC ULTRASOUN D EA 15 MIN THERAPEUT 08021 ZACK DIXON IC PX 1/> 3 [facility] INC INC EACH 15 MIN EXERCISES APPL 56412 ZACK DIXON MODALITY 3 [facility]/> AREAS INC INC ULTRASOUN D EA 15 MIN APPL 99387 ZACK DIXON MODALITY 3 [facility]/> AREAS INC INC 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 BASIC 75085 COMBINED COMBINED METABOLIC 3 PHYSICIAN PHYSICIAN PANEL S LA S LA CALCIUM TOTAL APPL 69409 ZACK DIXON MODALITY 3 [facility]/> AREAS INC INC 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 21371 ZACK DIXON IC PX 1/> 3 [facility] INC INC EACH 15 MIN EXERCISES APPL 98605 ZACK DIXON MODALITY 3 [facility] 1/> AREAS INC INC ULTRASOUN D EA 15 MIN E-STIM G0283 ZACK DIXON 1/> AREAS 3 [facility] OTH THAN INC INC WND CARE PART TX PLAN E-STIM G0283 ZACK DIXON 1/> AREAS 3 [facility] OTH THAN INC INC WND CARE PART TX PLAN THERAPEUT 71917 ZACK DIXON IC PX 1/> 3 [facility]AS INC INC EACH 15 MIN EXERCISES APPL 31744 ZACK DIXON MODALITY 3 [facility]/> AREAS INC INC ULTRASOUN D EA 15 MIN APPL 93260 ZACK DIXON MODALITY 3 [facility]/> AREAS INC INC IONTOPHOR ESIS EA 15 MIN APPLICATI 92095 ZACK DIXON ON 3 [facility] MODALITY INC INC 1/> AREAS HOT/COLD PACKS APPL 92384 ZACK DIXON MODALITY 3 [facility]/> AREAS INC INC ULTRASOUN D EA 15 MIN THERAPEUT 54556 ZACK DIXON IC PX 1/> 3 [facility] INC INC EACH 15 MIN EXERCISES E-STIM G0283 ZACK DIXON 1/> AREAS 3 [facility] OTH THAN INC INC WND CARE PART TX PLAN E-STIM G0283 ZACK DIXON 1/> AREAS 3 [facility] OTH THAN INC INC WND CARE PART TX PLAN THERAPEUT 55539 ZACK ZACK IC PX 1/> 3 [facility] INC INC EACH 15 MIN EXERCISES APPL 99660 ZACK DIXON MODALITY 3 [facility] 1/> AREAS INC INC ULTRASOUN D EA 15 MIN THERAPEUT 16489 ZACK DIXON IC PX 1/> 3 [facility] INC INC EACH 15 MIN EXERCISES APPL 05637 ZACK DIXON MODALITY 3 [facility]/> AREAS INC INC 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 G0283 ZACK DIXON 1/> AREAS 3 [facility] OTH THAN INC INC WND CARE PART TX PLAN E-STIM G0283 ZACK DIXON 1/> AREAS 3 [facility] OTH THAN INC INC WND CARE PART TX PLAN APPLICATI 30437 ZACK DIXON ON 3 [facility] MODALITY INC INC 1/> AREAS HOT/COLD PACKS THERAPEUT 63632 ZACK DIXON IC PX 1/> 3 [facility] INC INC EACH 15 MIN EXERCISES THERAPEUT 29894 ZACK DIXON IC PX 1/> 3 [facility] INC INC EACH 15 MIN EXERCISES APPL 04401 ZACK DIXON MODALITY 3 [facility]/> AREAS INC INC ULTRASOUN D EA 15 MIN APPL 40920 ZACK DIXON MODALITY 3 [facility]/> AREAS INC INC 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 G0283 ZACK DIXON 1/> AREAS 3 [facility] OTH THAN INC INC WND CARE PART TX PLAN E-STIM G0283 ZACK DIXON 1/> AREAS 3 [facility] OTH THAN INC INC WND CARE PART TX PLAN APPLICATI 89152 ZACK DIXON ON 3 [facility] MODALITY INC INC 1/> AREAS HOT/COLD PACKS APPL 41679 ZACK DIXON MODALITY 3 [facility] 1/> AREAS INC INC 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 82749 ZACK DIXON IC PX 1/> 3 [facility] INC INC EACH 15 MIN EXERCISES APPL 41467 ZACK DIXON MODALITY 3 [facility]/> AREAS INC INC ULTRASOUN D EA 15 MIN APPL 06977 ZACK ZACK MODALITY 3 [facility] AREAS INC INC ULTRASOUN D EA 15 MIN APPL 24304 ZACK DIXON MODALITY 3 [facility]/> AREAS INC INC 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 APPLICATI 22008 ZACK DIXON ON 3 [facility] MODALITY INC INC 1/> AREAS HOT/COLD PACKS E-STIM G0283 ZACK DIXON 1/> AREAS 3 [facility] OTH THAN INC INC WND CARE PART TX PLAN E-STIM G0283 ZACK DIXON 1/> AREAS 3 [facility] OTH THAN INC INC WND CARE PART TX PLAN APPLICATI 51092 ZACK DIXON ON 3 [facility] MODALITY INC INC 1/> AREAS HOT/COLD PACKS APPL 54152 ZACK DIXON MODALITY 3 [facility] 1/> AREAS INC INC 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 88376 ZACK DIXON IC PX 1/> 3 [facility] INC INC EACH 15 MIN EXERCISES APPL 57338 ZACK DIXON MODALITY 3 [facility]/> AREAS INC INC ULTRASOUN D EA 15 MIN APPL 84498 ZACK DIXON MODALITY 3 [facility]/> AREAS INC INC ULTRASOUN D EA 15 MIN THERAPEUT 12335 ZACK DIXON IC PX 1/> 3 [facility] INC INC EACH 15 MIN EXERCISES APPL 23609 ZACK DIXON MODALITY 3 [facility] 1/> AREAS INC INC IONTOPHOR ESIS EA 15 MIN APPLICATI 33150 ZACK DIXON ON 3 [facility] MODALITY INC INC 1/> AREAS HOT/COLD PACKS E-STIM G0283 ZACK DXION 1/> AREAS 3 [facility] OTH THAN INC INC WND CARE PART TX PLAN APPLICATI 56183 ZACK DIXON ON 3 [facility] MODALITY INC INC 1/> AREAS HOT/COLD PACKS APPL 64939 ZACK DIXON MODALITY 3 [facility] 1[facility] AREAS INC INC IONTOPHOR ESIS EA 15 MIN PHYSICAL 07387 ZACK DIXON THERAPY 3 [facility] EVALUATIO INC INC N THERAPEUT 76168 ZACK DIXON IC PX 1/> 3 [facility] INC INC EACH 15 MIN EXERCISES APPL 83831 ZACK DIXON MODALITY 3 [facility] 1/> AREAS INC INC ULTRASOUN D EA 15 MIN RAD[facility] IMAG[facility] L ASS COMPLETE MINIMUM 2 VIEWS BASIC 61942 COMBINED COMBINED METABOLIC 3 PHYSICIAN PHYSICIAN [place] [address] COMBINED COMBINED BLOOD/URI 3 PHYSICIAN PHYSICIAN C ACID S LA S LA BASIC 08011 ZACK ZACK METABOLIC 2 [facility] PANEL INC INC CALCIUM TOTAL BLOOD 56762 ZACK DIXON COUNT 2 [facility] COMPLETE INC INC AUTO&AUTO DIFRNTL WBC GLUC BLD 01288 ZACK DIXON GLUC MNTR 2 [facility] DEV INC INC CLEARED FDA SPEC HOME USE COLLECTIO 88062 ZACK DIXON N VENOUS 2 [facility] BLOOD [facility] INC [facility]CT [facility] G0378 ZACK DIXON OBSERVATI 2 [facility] ZACK ZACK OBSERVATI 2 [facility] ON INC INC SERVICE PER HOUR ECHO 36751 [facility] R-T 2 DINA MORA 2D CARDIOLOG W/WOM-MOD Y CLINIC E COMPL SPEC&COLR D COLLECTIO 31481 ZACK DIXON N VENOUS 2 [facility] BLOOD INC INC VENIPUNCT URE GLUC BLD 49232 ZACK DIXON GLUC MNTR 2 [facility] DEV INC INC CLEARED FDA SPEC HOME USE PULMONARY 36108 LIZZ WADE 2 MEDICAL MELIDA VENTILATI IMAGING ON & ASS PERFUSION IMAGING NONINVASI 01681 ZACK ZACK VE 2 [facility] EAR/PULSE INC INC OXIMETRY SINGLE DETER TECHNETIU A9567 ZACK Flanagan TC-99M 2 [facility] PENTETATE INC INC DX AEROSOL TO 75 MCI BLOOD 67991 ZACK DIXON COUNT 2 [facility] COMPLETE INC INC AUTO&AUTO DIFRNTL WBC TECHNETIU A9540 ZACK Flanagan TC-99M 2 [facility] MAA DX INC INC STDY DOSE UP TO [address] [place] [address] ZACK DIXON TROPONIN 2 [facility] QUANTITAT INC INC MARIBEL CREATINE 63470 ZAKC DIXON KINASE MB 2 [facility] FRACTION INC INC ONLY BASIC 55647 ZACK DIXON METABOLIC 2 [facility] PANEL INC INC CALCIUM TOTAL CREATINE 99959 ZACK DIXON KINASE 2 [facility] TOTAL INC INC CREATINE 78785 ZACK ZACK KINASE 2 [facility] TOTAL INC INC FIBRIN 59209 ZACK DXION DGRADJ 2 [facility] PRODUCTS INC INC D-DIMER QUAL/SEMI BARB BASIC 44654 ZACK DIXON METABOLIC 2 [facility] PANEL INC INC CALCIUM TOTAL CREATINE 52910 ZACK ZACK KINASE MB 2 [facility] [place] [address] ZACK DIXON TROPONIN 2 [facility] QUANTITAT INC INC MARIBEL CULTURE 27646 ZACK DIXON BACTERIAL 2 [facility] BLOOD INC INC AEROBIC W/ID ISOLATES BLOOD 33489 ZACK DIXON COUNT 2 [facility] COMPLETE INC INC AUTO&AUTO DIFRNTL WBC GLUC BLD 07787 ZACK DIXON GLUC MNTR 2 [facility] DEV INC INC CLEARED FDA SPEC HOME USE URNLS DIP 88149 ZACK DIXON 2 [facility] STICK/TAB INC INC LET REAGENT AUTO MICROSCOP Y NATRIURET 01185 ZACK DIXON IC 2 [facility] PEPTIDE INC INC THERAPEUT 25782 ZACK DIXON IC 2 [facility] PROPHYLAC INC INC TIC/DX INJECTION SUBQ/IM ECG 00148 ZACK MCLEAN ROUTINE 2 [facility] W/LEAST P 12 LDS I&R ONLY RADIOLOGI 39551 ZACK ZACK C EXAM 2 [facility] CHEST 2 INC [facility] Z[facility] ZACK OBSERVATI 2 [facility] ON INC INC SERVICE PER HOUR ECG 60928 ZACK ZACK ROUTINE 2 [facility] ECG INC INC W/LEAST 12 LDS TRCG ONLY W/O I&R COLLECTIO 29986 ZACK DIXON N VENOUS 2 [facility] BLOOD INC INC VENIPUNCT URE BLOOD 19563 ZACK DIXON COUNT 2 [facility] COMPLETE INC INC AUTO&AUTO DIFRNTL WBC BASIC 82588 ZACK DIXON METABOLIC 2 [facility] PANEL INC INC CALCIUM TOTAL THERAPEUT 33092 ZACK DIXON IC 2 [facility] PROPHYLAC INC INC TIC/DX INJECTION SUBQ/IM INJECTION J0897 ZACK ZACK 2 [facility] DENOSUMAB INC INC 1 MG DXA BONE 69937 [facility] DENSITY 2 MEDICAL MELIDA STUDY 1/> IMAGING SITES ASS AXIAL SKEL URNLS DIP 50750 ZACK DIXON 2 [facility] STICK/TAB INC INC LET [place] [address] ZACK DIXON PARATHORM 2 [facility] ONE INC INC 25 12380 ZACK DIXON HYDROXY 2 [facility] INCLUDES INC INC FRACTIONS IF PERFORMED CREATININ 19503 ZACK DIXON E OTHER 2 [facility] SOURCE INC INC RENAL 73553 ZACK DIXON FUNCTION 2 [facility] PANEL INC INC PROTEIN 62562 ZACK DIXON XCPT 2 [facility] REFRACTOM INC INC ETRY SERUM PLASMA/WH L BLD BLOOD 37501 ZACK DIXON COUNT 2 [facility] COMPLETE INC INC AUTO&AUTO DIFRNTL WBC COLLECTIO 44303 ZACK IDXON N VENOUS 2 [facility] BLOOD INC INC VENIPUNCT URE CONTINUOU E0601 REID MATHEWS S 2 HOME [...] E AIRWAY EQUIPME EQUIPME PRESSURE DEVICE MYOCARDIA 12102 [facility] SPECT 2 [facility] MULTIPLE CARDIOLOG STUDIES Y CLINIC CV STRS 64692 [facility] TST 2 PHYSICIAN XERS&/OR S GROUP RX CONT ECG W/O I&R CV STRS 32445 ZACK ZAPATA TST 2 [facility] XERS&/OR HOSPITAL RX CONT P ECG I&R ONLY POLYSOM 84918 ZACK DIXON 6/>YRS 2 [facility] SLEEP INC INC W/CPAP 4/> ADDL HARSHIL ATTND CULTURE 48544 ZACK DIXON BCT 2 [facility] ISOL&PRSM INC INC PTV ID ISOLATE EA URINE CULTURE 26757 ZACK DIXON BACTERIAL 2 [facility] INC INC QUANTTATI VE COLONY COUNT URINE SUSCEPTIB 83489 ZACK DIXON LTY STDY 2 [facility] ANTIMICRB INC INC IAL MICRO/AGA R DILUTJ CREATININ 30021 ZACK Viveros OTHER 2 [facility] SOURCE INC INC RENAL 42925 ZACK DIXON FUNCTION 2 [facility] PANEL INC INC BLOOD 82747 ZACK DIXON COUNT 2 [facility] COMPLETE INC INC AUTO&AUTO DIFRNTL WBC PROTEIN 05121 ZACK DIXON XCPT 2 [facility] REFRACTOM INC INC ETRY SERUM PLASMA/WH L BLD 25 71875 ZACK DIXON HYDROXY 2 [facility] INCLUDES INC [place] [address] ZACK DIXON PARATHORM 2 [facility] ONE INC INC URNLS DIP 33543 ZACK DIXON 2 [facility] STICK/TAB INC INC LET REAGENT AUTO MICROSCOP Y COLLECTIO 43213 ZACK DIXON N VENOUS 2 [facility] BLOOD INC INC VENIPUNCT URE LANCETS A4259 REID GLASSRELL PER BOX 2 HOME HOME OF 100 MEDICAL MEDICAL EQUIPME EQUIPME BLD GLU A4253 REID GLASSRELL TEST/REAG 2 HOME HOME T STRIPS [facility]ICAL HOME BLD EQUIPME EQUIPME GLU MON-50 POLYSOM 10637 ESTIVEN JEAN-BAPTISTE 6/>YRS 2 [facility] SLEEP 4/> ADDL HARSHIL ATTND POLYSOM 58795 ZACK DIXON 6/>YRS 2 [facility] SLEEP 4/> INC INC ADDL HARSHIL ATTND URNLS DIP 74040 ZACK DIXON 2 [facility] STICK/TAB INC INC LET REAGENT AUTO MICROSCOP Y 3D 85166 ZACK DIXON RENDERING 2 [facility] W/INTERP INC INC & POSTPROCE SS SUPERVISI ON BASIC 38602 ZACK DIXON METABOLIC 2 [facility] PANEL INC INC CALCIUM TOTAL CREATINE 75022 ZACK DIXON KINASE 2 [facility] TOTAL INC INC CREATINE 57135 ZACK DIXON KINASE MB 2 [facility] [place] [address] ZACK DIXON TROPONIN 2 [facility] QUANTITAT INC INC MARIBEL BLOOD 03091 ZACK DIXON COUNT 2 [facility] COMPLETE INC INC AUTO&AUTO DIFRNTL WBC ECG 69377 EMEKA ALFORD ROUTINE 2 EMERGENCY III NANCY ECG SERVICES W/LEAST 12 LDS I&R ONLY RADEX 55828 MAINE SHERI SPINE 2 [facility] THORACIC IMAGING 3 VIEWS ASS RADIOLOGI 53332 ZACK DIXON C 2 [facility] EXAMINATI INC [place] [address] ZACK DIXON HEAD/BRAI 2 [facility] N W/O INC INC CONTRAST MATERIAL ECG 61280 ZACK DIXON ROUTINE 2 [facility] ECG INC INC W/LEAST 12 LDS TRCG ONLY W/O I&R RADEX 00695 MAINE SHERI SPINE 2 [facility] LUMBOSACR IMAGING AL ASS MINIMUM 4 VIEWS RADIOLOGI 45341 MAINE SHERI C EXAM 2 [facility] SKULL IMAGING COMPLETE ASS MINIMUM 4 VIEWS RADEX 35935 ZACK DIXON SPINE 2 [facility] CERVICAL INC [place] 6 [place] [address] ZACK DIXON IRON 2 [place] [address] ZACK DIXON FOLIC 2 [facility] ACID INC INC SERUM 25 58332 ZACK DIXON HYDROXY 2 [facility] INCLUDES INC [place] [address] ZACK DIXON BLOOD/URI 2 [facility] [place] [address] ZACK DIXON PHOSPHORU 2 [facility] S INC INC INORGANIC CYANOCOBA 28741 ZACK DIXON SOHA 2 [facility] VITAMIN INC INC B-12 BASIC 80460 ZACK DIXON METABOLIC 2 [facility] [place] [address] ZACK DIXON FERRITIN 2 [place] [address] ZACK DIXON PARATHORM 2 [facility] ONE INC INC IRON 98376 ZACK DIXON BINDING 2 [facility] CAPACITY INC INC IRRIGAJ 54178 ZACK DIXON IMPLNTD 2 [facility] VENOUS INC INC ACCESS DRUG DELIVERY SYST GLUC BLD 14755 ZACK DIXON GLUC MNTR 2 [facility] DEV INC INC CLEARED FDA SPEC HOME USE GLUC BLD 36053 ZACK DIXON GLUC MNTR 2 [facility] DEV INC INC CLEARED FDA SPEC HOME USE NONINVASI 75365 ZACK DIXON VE 2 [facility] EAR/PULSE INC INC OXIMETRY SINGLE DETER BASIC 71976 ZACK DIXON METABOLIC 2 [facility] PANEL INC INC CALCIUM TOTAL BLOOD 02892 ZACK DIXON COUNT 2 [facility] COMPLETE INC INC AUTO&AUTO DIFRNTL WBC H[facility] G0378 ZACK DIXON OBSERVATI 2 [facility] ON INC INC [facility] G[facility]8 ZACK DIXON OBSERVATI 2 [facility] ON INC INC SERVICE PER HOUR ECG 83485 ZACK DIXON ROUTINE 2 [facility] ECG INC INC W/LEAST 12 LDS TRCG ONLY W/O I&R ECHO 49105 [facility] TTHRC R-T 2 DINA MORA 2D CARDIOLOG W/WOM-MOD Y CLINIC E COMPL SPEC&COLR D ECG 87185 ZACK MCLEAN ROUTINE 2 [facility] W/LEAST P 12 LDS I&R ONLY RADIOLOGI 34416 MAINE SHERI C EXAM 2 [facility] CHEST 2 IMAGING VIEWS ASS FRONTAL&L ATERAL BLOOD 55317 ZACK DIXON COUNT 2 [facility] COMPLETE INC INC AUTO&AUTO DIFRNTL WBC TECHNETIU A9567 ZACK Flanagan TC-99M 2 [facility] PENTETATE INC INC DX AEROSOL TO [address] [place] [address] ZACK DIXON TROPONIN 2 [facility] QUANTITAT INC INC MARIBEL CREATINE 70411 ZACK DIXON KINASE MB 2 [facility] FRACTION INC INC ONLY BASIC 57297 ZACK DIXON METABOLIC 2 [facility] PANEL INC INC CALCIUM TOTAL TECHNETIU A9540 ZACK DIXON M TC-99M 2 [facility] MAA DX INC INC STDY DOSE UP TO 10 MCI CREATINE 04517 ZACK DIXON KINASE 2 [facility] TOTAL INC INC NONINVASI 21886 ZACK DIXON VE 2 [facility] EAR/PULSE INC INC OXIMETRY SINGLE DETER PULMONARY 98332 LIZZ WADE 2 [facility] VENTILATI IMAGING ON & ASS PERFUSION IMAGING INITIAL 93990 [facility] 2 PHYSICIAN CARE/DAY S GROUP 50 MINUTES GLUC BLD 33890 ZACK DIXON GLUC MNTR 2 [facility] DEV INC INC CLEARED FDA SPEC HOME USE URNLS DIP 29941 ZACK DIXON 2 [facility] STICK/TAB INC INC LET REAGENT AUTO MICROSCOP Y NATRIURET 72708 ZACK DIXON IC 2 [facility] PEPTIDE INC INC THERAPEUT 62011 ZACK ZACK IC 2 [facility] PROPHYLAC INC INC TIC/DX INJECTION SUBQ/IM CREATINE 37527 [facility] KINASE 2 [facility] TOTAL INC INC CULTURE 93415 [facility] BCT 2 [facility] ISOL&PRSM INC INC PTV ID ISOLATE EA URINE FIBRIN 69882 [facility] DGRADJ 2 [facility] PRODUCTS INC INC D-DIMER QUAL/SEMI BARB CULTURE 07221 [facility] BACTERIAL 2 [facility] INC INC QUANTTATI VE COLONY COUNT URINE CREATINE 96793 [facility]ACK [facility] KINASE MB 2 [facility] [place] [address] [facility] D[facility] TROPONIN 2 [facility] QUANTITAT INC INC MARIBEL COMPREHEN 93633 [facility] SIVE 2 [facility] METABOLIC INC INC PANEL BLOOD 63980 [facility] COUNT 2 [facility] COMPLETE INC INC AUTO&AUTO DIFRNTL WBC CULTURE 60171 [facility] BACTERIAL 2 [facility] BLOOD INC INC AEROBIC W/ID ISOLATES SUSCEPTIB 07415 [facility]ACK D[facility]ON LTY STDY 2 [facility] ANTIMICRB INC INC IAL MICRO/AGA R DILUTJ ECG 73890 EMEKA BRENDEN ROUTINE 2 EMERGENCY [facility] ECG SERVICES W/LEAST 12 LDS I&R ONLY RADIOLOGI 51520 [facility] B[facility]AN[facility] C 2 MEDICAL MELIDA EXAMINATI IMAGING ON CHEST ASS SING[place] FRONTAL ECG 04102 ZACK DIXON ROUTINE 2 [facility] MEM [...] GLUCOSE MEDICAL MEDICAL MONITOR EQUIPME EQUIPME RADIOLOGI 42494 MAINE SHERI C 2 MEDICAL MELIDA EXAMINATI IMAGING ON CHEST ASS [place] FRONTAL VENOUS 3893 [facility]ACK D[facility] CATHETERI 2 [facility] ZATION INC INC NOT ELSEWHERE CLASSIFIE D RADIOLOGI 54865 MAINE SHERI C EXAM 2 MEDICAL MELIDA CHEST 2 IMAGING VIEWS ASS FRONTAL&L ATERAL RADIOLOGI 99957 MAINE SHERI C EXAM 2 MEDICAL MELIDA CHEST 2 IMAGING VIEWS ASS FRONTAL&L ATERAL RADIOLOGI 96569 MAINE SHERI C 2 MEDICAL MELIDA EXAMINATI IMAGING ON KNEE 3 ASS VIEWS COLLECTIO 76993 FAMILY STRAWZELL N VENOUS 2 CARE CRI BLOOD ASSOCIATE VENIPUNCT S, [facility] URE HANDLG&/O 15636 FAMILY STRAWZELL R CONVEY 2 CARE CRI OF SPEC ASSOCIATE FOR TR S, [facility] [place] [address] [facility] SH[facility]I RETROPERI 2 MEDICAL MELIDA TONEAL IMAGING REAL TIME ASS W/IMAGE COMPLETE BLOOD 01827 FAMILY STRAWZELL COUNT 2 CARE CRI COMPLETE ASSOCIATE AUTO&AUTO S, [facility] DIFRNTL WBC COMPREHEN 00085 COMBINED COMBINED SIVE 2 PHYSICIAN PHYSICIAN [place] [address] COMBINED COMBINED BLOOD/URI 2 PHYSICIAN PHYSICIAN C ACID S LA S LA ANTINUCLE 71715 LAB ZOE[facility] LAB ZOEY AR 2 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 YUNG RHEUMATOI 17164 COMBINED COMBINED D FACTOR 2 PHYSICIAN PHYSICIAN QUALITATI S LA S LA VE SEDIMENTA 81878 COMBINED COMBINED TION RATE 2 PHYSICIAN PHYSICIAN RBC S LA S LA NON-AUTOM ATED CYANOCOBA 53794 COMBINED COMBINED SOHA 2 PHYSICIAN PHYSICIAN VITAMIN S LA S LA B-12 [place] [address] COMBINED COMBINED THYROID 2 PHYSICIAN PHYSICIAN STIMULATI S LA S LA NG HORMONE TSH 25 49660 COMBINED COMBINED HYDROXY 2 PHYSICIAN PHYSICIAN INCLUDES S LA S LA FRACTIONS IF PERFORMED COMPREHEN 79502 COMBINED COMBINED SIVE 2 PHYSICIAN PHYSICIAN METABOLIC S LA S LA PANEL LIPID 11842 FAMILY STRAWZELL PANEL 2 CARE CRI ASSOCIATE S, [facility] HEMOGLOBI 22032 FAMILY STRAWZELL N 2 CARE CRI GLYCOSYLA ASSOCIATE ALEX A1C S, PSC HANDLG&/O 58224 FAMILY STRAWZELL R CONVEY 2 CARE CRI OF SPEC ASSOCIATE FOR TR S, P[facility] OFFICE TO LAB COLLECTIO 84788 FAMILY STRAWZELL N VENOUS 2 CARE CRI BLOOD ASSOCIATE VENIPUNCT S, PSC URE RADIOLOGI 47999 [facility] C EXAM 2 [facility] CHEST 2 INC INC VIEWS FRONTAL&L ATERAL DUP-SCAN 61662 ZACK DIX[facility] XTR VEINS 2 [facility] INC INC UNILATERA L/LIMITED STUDY COLLECTIO 86259 [facility]ACK DIX[facility] N VENOUS 2 [facility] BLOOD INC INC VENIPUNCT URE URNLS DIP 20465 [facility] 2 [facility] STICK/TAB INC INC LET REAGENT AUTO MICROSCOP Y HEPATIC 42643 [facility]ON FUNCTION 2 [facility] PANEL INC INC RENAL 73377 [facility]ACK D[facility]ON FUNCTION 2 [facility] PANEL INC INC BLOOD 83103 [facility]ACK DIXON COUNT 2 [facility] COMPLETE INC INC AUTO&AUTO DIFRNTL WBC DEBRIDEME 46195 PAWSAT PAWSAT NT NAIL 2 MAR MAR ANY METHOD 1-5 THERAPEUT 12402 [facility] IC 1 [facility] PROPHYLAC INC INC TIC/DX INJECTION SUBQ/IM BASIC 55232 [facility]ACK DIX[facility] METABOLIC 1 [facility] HOSP PANEL INC INC CALCIUM TOTAL COLLECTIO 31327 ZACK DIXON N VENOUS 1 [facility] BLOOD INC INC VENIPUNCT URE COLLECTIO 18646 ZACK DIXON N VENOUS 1 [facility] BLOOD INC INC VENIPUNCT URE BASIC 12296 ZACK DIXON METABOLIC 1 [facility] PANEL INC INC CALCIUM TOTAL THERAPEUT 57786 ZACK DIXON IC 1 [facility] PROPHYLAC INC INC TIC/DX INJECTION SUBQ/IM URNLS DIP 93154 ZACK DIXON 1 [facility] STICK/TAB INC INC [place] [address] ZACK DIXON PARATHORM 1 [facility] ONE INC INC 25 01808 ZACK DIXON HYDROXY 1 [facility] INCLUDES INC INC FRACTIONS IF PERFORMED PROTEIN 94035 ZACK DIXON ELECTROPH 1 [facility] ORETIC INC INC FRACTJ&QU ANTJ SERUM RENAL 89785 ZACK DIXON FUNCTION 1 [facility] PANEL INC INC PROTEIN 57785 ZACK DIXON XCPT 1 [facility] REFRACTOM INC INC ETRY SERUM PLASMA/WH L BLD CREATININ 77454 ZACK DIXON E OTHER 1 [facility] SOURCE INC INC BLOOD 74320 ZACK DIXON COUNT 1 [facility] COMPLETE INC INC AUTO&AUTO DIFRNTL WBC COLLECTIO 63737 ZACK DIXON N VENOUS 1 [facility] BLOOD INC INC VENIPUNCT URE COLLECTIO 27307 ZACK DIXON N VENOUS 1 [facility] BLOOD INC INC VENIPUNCT URE BASIC 98323 ZACK DIXON METABOLIC 1 [facility] PANEL INC INC CALCIUM TOTAL RADIOLOGI 61992 ZACK DIXON C EXAM 1 [facility] BOTH INC INC KNEES STANDING ANTEROPOS T INJECTION J1030 [facility] M[facility] DNISOLONE PSC ACETATE 40 MG ARTHROCEN 44839 [place] [facility] TESIS 1 [facility] ASPIR&/IN CLINIC J MAJOR PSC JT/BURSA W/O US OPHTH 39925 [facility] MEDICAL 1 VISION XM&EVAL COMPRHNSV ESTAB PT 1/> [place] 45471 ZACK DIXON RETROPERI 1 [facility] TONEAL INC INC REAL TIME W/IMAGE COMPLETE DXA BONE 05768 ZACK DIXON DENSITY 1 [facility] STUDY 1/ INC INC SITES AXIAL SKEL NON-INVAS 34185 MAINE SHERI MARIBEL 1 MEDICAL MELIDA PHYSIOLOG IMAGING IC STUDY ASS EXTREMITY 3 LEVLS BASIC 92421 COMBINED COMBINED METABOLIC 1 PHYSICIAN PHYSICIAN [place] [address] COMBINED COMBINED PARATHORM 1 PHYSICIAN [place] [address] COMBINED COMBINED PHOSPHORU 1 PHYSICIAN PHYSICIAN S S LA S LA INORGANIC 25 53246 COMBINED COMBINED HYDROXY 1 PHYSICIAN PHYSICIAN INCLUDES S LA S LA FRACTIONS IF PERFORMED BLD GLU A4253 REID MATHEWS TEST/REAG 1 HOME MED HOME MED T STRIPS EQUIP. L EQUIP. L HOME BLD GLU MON-50 LANCETS A4259 REID MATHEWS PER BOX 1 HOME MED HOME MED OF 100 EQUIP. L EQUIP. L COLLECTIO 99706 ZACK Yoo VENOUS 1 [facility] [address] [facility] ABDOMEN 1 MEDICAL MELIDA W/O IMAGING CONTRAST ASS MATERIAL 3D 28257 MAINE SHERI RENDERING 1 MEDICAL MELIDA IMAGING W/INTERP& ASS POSTPROC DIFF WORK STATION CREATININ 92343 ZACK ZACK E BLOOD 1 [place] [address] ZACK DIXON UREA 1 [facility] NITROGEN INC INC QUANTITAT MARIBEL TECHNETIU A9537 ZACK ZACK Masha TC-99M 1 [facility] MEBROFENI INC INC N DX UP TO 15 MCI HEPATBL 86931 MAINE SHERI DUX SYS 1 [place]ICAL [place] [address] MAINE SHERI ABDOMINAL 1 MEDICAL MELIDA REAL IMAGING TIME ASS W/IMAGE LIMITED COMPREHEN 82665 COMBINED COMBINED SIVE 1 PHYSICIAN PHYSICIAN METABOLIC S LA S LA PANEL COLLECTIO 25202 COMBINED COMBINED N VENOUS 1 PHYSICIAN PHYSICIAN BLOOD S LA S LA VENIPUNCT URE COLLECTIO 20466 FAMILY MULBERRY N VENOUS 1 CARE NILO BLOOD ASSOCIATE VENIPUNCT S URE COMPREHEN 90037 COMBINED COMBINED SIVE 1 PHYSICIAN PHYSIC[place] [address] COMBINED COMBINED THYROID 1 PHYSICIAN PHYSICIAN STIMULAT[place] [address] LAB ZOEY LAB ZOEY LIPASE 1 [employer] BLOOD 85056 FAMILY MULBERRY COUNT 1 CARE NILO COMPLETE ASSOCIATE AUTO&[place] [address] COMBINED COMBINED AMYLASE 1 PHYSICIAN PHYSICIAN S LA S LA HEMOGLOBI 75327 FAMILY MULBERRY N 1 CARE NILO GLYCOSYLA ASSOCIATE ALEX A1C S RADIOLOGI 51551 MAINE MICH EXAM 1 MEDICAL CARLOS CHEST 2 IMAGING VIEWS ASS FRONTAL&L ATERAL BASIC 73857 COMBINED COMBINED METABOLIC 1 PHYSICIAN PHYSICIAN PANEL S LA S LA CALCIUM TOTAL COLLECTIO 42509 FAMILY BRENDAN J N VENOUS 1 CARE BLOOD ASSOCIATE VENIPUNCT S URE RADIOLOGI 88274 ZACK DIXON C EXAM 0 [facility] CHEST 2 INC INC VIEWS FRONTAL&[place] [address] ZACK DIXON STREPTOCO 0 [facility] CCUS INC INC GROUP A IAADI 78195 ZACK DIXON INFLUENZA 0 [facility] B VIRUS INC INC IAADI 89563 ZACK DIXON INFFLUENZ 0 [facility] A A VIRUS INC INC URNLS DIP 81963 ZACK DIXON 0 [facility] STICK/TAB INC INC LET REAGENT AUTO MICROSCOP Y PRESSURIZ 43027 ZACK DIXON ED/NONPRE 0 [facility] SSURIZED INC INC INHALATIO N TREATMENT COMPREHEN 74655 COMBINED COMBINED SIVE 0 PHYSICIAN PHYSICIAN [place] [address] COMBINED COMBINED THYROID 0 PHYSICIAN PHYSICIAN STIMULATI S LA S LA NG HORMONE TSH COLLECTIO 50066 FAMILY FAMILY N VENOUS 0 CARE CARE BLOOD ASSOCIATE ASSOCIATE VENIPUNCT S S URE FUNDUS 43122 PETERS LANNY ROBERTSONNES LANNY PHOTOGRAP 0 HY W/INTERPR ETATION & REPORT OPHTH 09050 PETERS LANNY ROBERTSONNES LANNY MEDICAL 0 XM&EVAL COMPRHNSV ESTAB PT 1/> FOR DIAB A5513 WELLNESS WELLNESS ONLY MX 0 LIFE LIFE DNSITY SYSTEMS [employer] CSTM MOLD CSTM EA DIAB ONLY A5500 WELLNESS WELLNESS FIT CSTM 0 LIFE LIFE PREP&SPL SYSTEMS SYSTEMS SHOE [employer] LLC DNSITY INSRT RADIOLOGI 21129 MAINE SHERI C 0 MEDICAL MELIDA EXAMINATI IMAGING ON ANKLE ASS 2 VIEWS RADIOLOGI 01313 MAINE SHERI C 0 MEDICAL MELIDA EXAMINATI IMAGING ON ANKLE ASS 2 VIEWS WALKING L4360 ADVANCED ADVANCED BOOT 0 TECHNOLOG TECHNOLOG PNEUMATC IES INC IES INC &/ VACUUM PREFAB CUSTM FIT RADIOLOGI 80419 ZACK DIXON C 0 [facility] EXAMINATI INC INC ON FOOT 2 VIEWS RADEX 82153 MAINE SHERI FOOT 0 MEDICAL MELIDA COMPLETE IMAGING MINIMUM 3 ASS VIEWS RADEX 70824 MAINE SHERI FOOT 0 MEDICAL MELIDA COMPLETE IMAGING MINIMUM 3 ASS VIEWS RADEX 64588 MAINE SHERI CALCANEUS 0 MEDICAL MELIDA MINIMUM IMAGING 2 VIEWS ASS RADIOLOGI 66680 MAINE SHERI C 0 MEDICAL MELIDA EXAMINATI IMAGING ON PELVIS ASS 1/2 VIEWS RADIOLOGI 84550 LIZZ BRIANUTCHER C 0 MEDICAL MELIDA EXAMINATI IMAGING ON TIBIA ASS & FIBULA 2 [place] [address] [facility] PETTEY 0 PHYSICIAN JAM CALCANEAL S GROUP FRACTURE W/[place] [address] EMEKA WILCOX 0 EMERGENCY CHIDI CALCANEAL SERVICES FRACTURE W/O MANIPULAT ION AMBULANCE A0429 [facility] SERVICE 0 AMBULANCE AMBULANCE BLS SERVICE SERVICE EMERGENCY TRANSPORT GROUND A0425 [facility] MILEAGE 0 AMBULANCE AMBULANCE PER SERVICE SERVICE STATUTE MILE HEMOGLOBI 04813 FAMILY MULBERRY N 0 CARE NILO GLYCOSYLA ASSOCIATE ALEX A1C S GLUCOSE 42223 FAMILY MULBERRY POST 0 CARE NILO GLUCOSE ASSOCIATE DOSE S 25 28414 LAB ZOEY LAB ZOEY HYDROXY 0 AMERIC AMERIC INCLUDES 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 IF PERFORMED BLOOD 80746 FAMILY MULBERRY COUNT 0 CARE NILO COMPLETE ASSOCIATE AUTO&AUTO S DIFRNTL WBC PPSV23 28225 FAMILY FAMILY VACCINE 2 0 CARE CARE YRS OR ASSOCIATE ASSOCIATE OLDER FOR S S SUBQ/IM USE COLLECTIO 54712 FAMILY MULBERRY N VENOUS 0 CARE NILO BLOOD ASSOCIATE VENIPUNCT S URE ADMINISTR G0009 FAMILY MULBERRY ATION OF 0 CARE NILO PNEUMOCOC ASSOCIATE JORDYN S VACCINE LIPID 09676 COMBINED COMBINED PANEL 0 PHYSICIAN [place] [address] COMBINED COMBINED IRON 0 PHYSICIAN [place] [address] COMBINED COMBINED FOLIC 0 PHYSICIAN PHYSICIAN ACID S LAB S LAB SERUM CYANOCOBA 44610 COMBINED COMBINED SOHA 0 PHYSICIAN PHYSICIAN VITAMIN S LAB S LAB B-12 COMPREHEN 52407 COMBINED COMBINED SIVE 0 PHYSICIAN PHYSICIAN METABOL[place] [address] COMBINED COMBINED FERRITIN 0 PHYSICIAN PHYSICIAN S LAB S LAB BLOOD 25711 FAMILY MULBERRY, COUNT 0 CARE CLEO T COMPLETE ASSOCIATE AUTO&AUTO S DIFRNTL WBC HEMOGLOBI 89536 FAMILY MULBERRY, N 0 CARE CLEO T GLYCOSYLA ASSOCIATE ALEX A1C S COLLECTIO 20407 FAMILY ELIAS, N VENOUS 0 CARE CLEO T BLOOD ASSOCIATE VENIPUNCT S URE COLLECTIO 87115 FAMILY ELIAS, N VENOUS 0 CARE CLEO T BLOOD ASSOCIATE VENIPUNCT S URE BLOOD 93926 FAMILY ELIAS, COUNT 0 CARE CLEO T COMPLETE ASSOCIATE AUTO&AUTO S DIFRNTL WBC BASIC 75486 COMBINED COMBINED METABOLIC 0 PHYSICIAN PHYSICIAN PANEL S LAB S LAB CALCIUM [facility] [address] [facility] JADA, DISCHARGE 0 CARE CLEO T DAY ASSOCIATE MANAGEMEN S T > 30 MIN BLD GLU A4253 REID MATHEWS TEST/REAG 0 HOME MED HOME MED T STRIPS EQUIP. EQUIP. HOME BLD LLC LLC GLU MON-50 LANCETS A4259 REID GLASSRELL PER BOX 0 HOME MED HOME MED OF 100 EQUIP. EQUIP. LLC LLC RADIOLOGI 90584 MAINE John EPPS EXAM 0 MEDICAL XAVI P CHEST 2 IMAGING VIEWS ASSOCIATE FRONTAL&L S ATERAL SBSQ 75147 [facility] 0 CARE CLEO T CARE/DAY ASSOCIATE 25 S MINUTES INITIAL 56272 [facility] 0 CARE CLEO T CARE/DAY ASSOCIATE 50 [place] [address] MAINE SHERI, PART VNTJ 0 MEDICAL RAYMUNDO IMG IMAGING AERSL ASSOCIATE 1/ACETYLENE CUTTER S PRJCJ RADIOLOGI 60251 MAINE SHERI C EXAM 0 MEDICAL RAYMUNDO CHEST 2 IMAGING VIEWS ASSOCIATE FRONTAL&L S ATERAL ECG 62445 ZACK BARRETO, ROUTINE 0 [facility] ECG [facility] W/LEAST PROF SERV 12 LDS I&R ONLY ECHO 28052 [facility] DORITA [facility] R-T 0 PHYSICIAN MINNA Gardiner S GROUP W/WOM-MOD E COMPL SPEC&COLR D INTRO 02291 EMEKA WILCOX, NEEDLE/IN 0 EMERGENCY TAYA Min TRACAT SERVICES EXTREMITY ARTERY ASSOCIATE S AMB A0427 MARY HERNANDEZ SERVICE 0 AMBULANCE AMBULANCE ALS SERVICE SERVICE EMERGENCY TRANSPORT LEVEL 1 GROUND A0425 [facility] 0 AMBULANCE AMBULANCE PER SERVICE SERVICE STATUTE MILE IAADIADOO 20900 FAMILY MULBERRY, 0 CARE CLEO T STREPTOCO ASSOCIATE CCUS S GROUP A ORTHOPANT 41117 LIZZ WADE, OGRAM 0 MEDICAL RAYMUNDO IMAGING ASSOCIATE S COLLECTIO 81960 ZACK DIXON N VENOUS 0 [facility] BLOOD INC INC VENIPUNCT URE RENAL 87502 ZACK DIXON FUNCTION 0 [facility] PANEL INC INC BLD GLU A4253 DIABETES DIABETES TEST/REAG 0 CARE CLUB CARE CLUB T STRIPS LLC LLC HOME BLD GLU MON-50 LANCETS A4259 DIABETES DIABETES PER BOX 0 CARE CLUB CARE CLUB OF 100 LLC LLC NORMAL A4256 DIABETES DIABETES LOW AND 0 CARE CLUB CARE CLUB HIGH [facility] LLC CALIBRATO R SOLUTION/ CHIPS COLLECTIO 63313 ZACK DIXON N VENOUS 9 [facility] BLOOD INC INC VENIPUNCT URE RENAL 63902 ZACK DIXON FUNCTION 9 [facility] PANEL INC INC ELECTRIC E0215 DIABETES DIABETES HEAT PAD 9 CARE CLUB CARE CLUB MOIST [facility] LLC BLD GLU A4253 DIABETES DIABETES TEST/REAG 9 CARE CLUB CARE CLUB T STRIPS LLC LLC HOME BLD GLU MON-50 NORMAL A4256 DIABETES DIABETES LOW AND 9 CARE CLUB CARE CLUB HIGH LLC LLC CALIBRATO R SOLUTION/ CHIPS LANCETS A4259 DIABETES DIABETES PER BOX 9 [facility]ARE CLUB CARE CLUB OF 100 [facility] LLC COLLECTIO 54654 ZACK DIXON N VENOUS 9 [facility] [address] ZACK DIXON RETROPERI 9 [facility] TONEAL INC INC REAL TIME W/IMAGE COMPLETE URNLS DIP 45322 ZACK DIXON 9 [facility] STICK/TAB INC INC LET REAGENT AUTO MICROSCOP Y RENAL 24332 ZACK DIXON FUNCTION 9 [facility] PANEL INC INC SUSCEPTIB 64307 ZACK DIXON LTY STDY 9 [facility] ANTIMICRB INC INC IAL MICRO/AGA R DILUTJ COMPLEMEN 23088 ZACK DIXON T 9 [facility] FUNCTIONA INC INC L ACTIVITY EACH COMPONENT CULTURE 75951 ZACK DIXON BCT 9 [facility] ISOL&PRSM INC INC PTV ID ISOLATE EA URINE ANTISTREP 97126 ZACK DIXON TOLYSIN O 9 [facility] SCREEN INC INC ANTINUCLE 79448 ZACK DIXON AR 9 [facility] [place] [address] ZACK DIXON BLOOD/URI 9 [facility] C ACID INC INC CULTURE 64220 ZACK DIXON BACTERIAL 9 [facility] INC INC QUANTTATI VE COLONY COUNT URINE BASIC 18976 ZACK DIXON METABOLIC 9 [facility] PANEL INC INC CALCIUM TOTAL COLLECTIO 93150 ZACK DIXON N VENOUS 9 [facility] BLOOD INC INC VENIPUNCT URE COLLECTIO 60269 ZACK DIXON N VENOUS 9 [facility] BLOOD INC INC VENIPUNCT URE COMPREHEN 23932 ZACK DIXON SIVE 9 [facility] [address] ZACK DIXON THYROID 9 [facility] STIMULATI INC INC NG HORMONE TSH BLOOD 55839 ZACK DXION COUNT 9 [facility] COMPLETE INC INC AUTO&AUTO DIFRNTL WBC BLD GLU A4253 DIABETES DIABETES TEST/REAG 9 CARE CLUB CARE CLUB T STRIPS [facility] LLC HOME BLD GLU MON-50 LANCETS A4259 DIABETES DIABETES PER BOX 9 CARE CLUB CARE CLUB OF 100 LLC LLC NORMAL A4256 DIABETES DIABETES LOW AND 9 CARE CLUB CARE CLUB HIGH [facility] CALIBRATO R SOLUTION/ CHIPS REPL KIM A4235 DIABETES DIABETES LITHIUM 9 CARE CLUB CARE CLUB MED NECES [facility] LLC LIBERTY BG MON OWN PT EA SPRING-PO A4258 DIABETES DIABETES WERED 9 CARE CLUB CARE CLUB DEVICE LLC LLC FOR LANCET EACH OPHTH 64251 LORRAINE PETERS, MEDICAL 9 GEE A GEE A XM&EVAL COMPRHNSV ESTAB PT 1/> COLLECTIO 37039 FAMILY MULBERRY, N VENOUS 9 CARE CLEO T BLOOD ASSOCIATE VENIPUNCT S URE HEMOGLOBI 55827 COMBINED COMBINED N 9 PHYSICIAN PHYSICIAN GLYCOSYLA S LAB S LAB ALEX A1C CREATININ 77653 FAMILY JADA, E OTHER 9 CARE CLEO Rollins SOURCE ASSOCIATE S ALBUMIN 07176 FAMILY JADA, URINE 9 CARE CLEO Rollins [...] LLC LLC HOME BLD GLU MON-50 MANUAL 62485 PROFESSIO CROSSFIEL THERAPY 8 NAL REHAB D, TQS 1/> ASSOC DANNITA REGIONS PSC EACH 15 MINUTES THERAPEUT 88419 PROFESSIO CROSSFIEL ACTVITY 8 NAL REHAB D, DIRECT PT ASSOC DANNITA CONTACT PSC EACH 15 MIN THERAPEUT 98367 PROFESSIO CROSSFIEL IC PX 1/> 8 NAL REHAB D, AREAS ASSOC DANNITA EACH 15 PSC MIN EXERCISES CANE E0105 REID MATHEWS QUAD/3-MO 8 HOME MED HOME MED GABINO ALL EQUIP. EQUIP. MATL LLC LLC ADJUSTBL/ FIX W/TIPS MANUAL 17610 PROFESSIO CROSSFIEL THERAPY 8 NAL REHAB D, TQS 1/> ASSOC DANNITA REGIONS PSC EACH 15 MINUTES THERAPEUT 23084 PROFESSIO CROSSFIEL IC PX 1/> 8 NAL REHAB D, AREAS ASSOC DANNITA EACH 15 PSC MIN EXERCISES PHYSICAL 17896 PROFESSIO CROSSFIEL THERAPY 8 NAL REHAB D, EVALUATIO ASSOC DANNITA N PSC RADEX HIP 14336 ZACK DIXON 8 [facility] UNILATERA INC INC L COMPLETE MINIMUM 2 VIEWS RADEX 46373 LIZZ EPPS, SPINE 8 MEDICAL XAVI Mcdonald LUMBOSACR IMAGING AL ASSOCIATE MINIMUM 4 S VIEWS Encounters Encounter Start End Date Code Location Performer Type Date [facility] ZACK - 7 7 [facility] INPATIENT INC EMERGENCY 40913 RUDY JOINER DEPT 7 7 PHYSICIAN VISIT S, [facility] HIGH SEVERITY& THREAT RUST ZACK - 6 6 [facility] OUTPATIEN INC T OFFICE 97174 CAMERON GORDILLO OUTPATIEN 6 6 MEDICAL T VISIT SERV 25 FOUNDATIO MINUTES [facility] ZACK - 6 6 [facility] OUTPATIEN INC T EMERGENCY 64160 ZACK DEPT 6 6 [facility] VISIT INC HIGH SEVERITY& THREAT RUST ZACK - OTHER 6 6 [facility] INC OFFICE 43819 CAMERON GORDILLO OUTPATIEN 6 6 MEDICAL T VISIT SERV 25 FOUNDATIO MINUTES [facility] ZACK - OTHER 6 6 [facility] INC OFFICE 66720 [facility] WILL OUTPATIEN 6 6 [facility] CHARMAINE T VISIT INTERNAL 15 MEDI MINUTES OFFICE 83345 [facility] BESSON OUTPATIEN 6 6 VALLEY TRACY T VISIT INTERNAL 15 MED MINUTES EMERGENCY 53177 RUDY CYR [facility] DEPT 6 6 PHYSICIAN VISIT S, [facility] HIGH SEVERITY& THREAT RUST ZACK - 6 6 [facility] OUTPATIEN INC T EMERGENCY 31231 ZACK 6 6 [facility] DEPARTMEN INC T VISIT HIGH/URGE NT [facility] ZACK - 6 6 [facility] OUTPATIEN INC T EMERGENCY 39510 ZACK 6 6 [facility] DEPARTMEN INC T VISIT MODERATE SEVERITY EMERGENCY 21667 RUDY WILCOX 6 6 PHYSICIAN [facility] USMAN S, [facility] T VISIT HIGH/URGE NT SEVERITY [facility] INPATIENT 6 6 [facility] INPATIENT 6 6 [facility] EMERGENCY 16859 ZACK 5 5 [facility] DEPARTMEN INC T VISIT LOW/MODER SEVERITY HOSPITAL ZACK - 5 5 [facility] OUTPATIEN INC T [facility] INPATIENT 5 5 [facility] INPATIENT 5 5 [facility] ZACK - 5 5 [facility] INPATIENT INC OFFICE 94900 ZACK CONNELL [address] [facility] VISIT 5 HOSPITAL MINUTES P EMERGENCY 26265 ZACK 5 5 [facility] DEPARTMEN INC T VISIT LIMITED/M INOR [facility] ZACK - 5 5 [facility] OUTPATIEN INC T OFFICE 33521 ZACK PEREZPATIEN [address] [facility] VISIT HOSPITAL 10 P MINUTES OFFICE 99701 [place] ERIBERTO GORDILLO OUTPATIMICA 5 5 MEDICAL T VISIT SERV 25 FOUNDATIO MINUTES HOSPITAL ZACK - 5 5 [facility] OUTPATIEN INC T HOSPITAL ZACK - 5 5 [facility] OUTPATIEN INC T OFFICE 72952 [place] WILL OUTPATIEN 5 5 [facility] T VISIT INTERNAL 25 MEDI MINUTES OFFICE 56367 ZACK PEREZPATIEN 5 5 [facility] T VISIT HOSPITAL 15 P MINUTES HOSPITAL ZACK - 5 5 [facility] OUTPATIEN INC T HOSPITAL ZACK HOPKINS 5 5 [facility] INC OFFICE 08627 ZACK CONNELL 5 5 [facility] T VISIT HOSPITAL 10 P MINUTES [facility] INPATIENT 5 5 [facility] OFFICE 47821 [place] ERIBERTO GORDILLO OUTPATIEN 5 5 MEDICAL T VISIT SERV 25 FOUNDATIO MINUTES N [facility] INPATIENT 5 5 [facility] INPATIENT 5 5 [facility] IN[facility] 5 5 [facility] ZACK - 5 5 [facility] INPATIENT [facility] EMERGENCY 80990 ZACK Dawn 5 5 [facility] T VISIT P LOW/MODER SEVERITY HOSPITAL ZACK - 5 5 [facility] ZACK - 5 5 [facility] OFFICE 11198 [place] ERI[place]ERT[place] GORDILLO OUTPATIEN 4 4 MEDICAL T VISIT SERV 25 FOUNDATIO MINUTES [facility] ZACK - 4 4 [facility] EM[facility] 43479 ZACK 4 4 [facility] T VISIT MODERATE SEVERITY HOSPITAL ZACK - 4 4 [facility] 00752 [facility] DEPT 4 4 ERIC IMT VISIT EMERGENCY HIGH PHYS SEVERITY& THREAT RUST ZACK - OTHER 4 4 [facility] INC OFFICE 39782 [place] ERIBERT[place] GORDILLO OUTPATIEN 4 4 MEDICAL T VISIT SERV 25 FOUNDATIO MINUTES [facility] ZACK - 4 4 [facility] OUTPATIEN [facility] ZACK - KELLIE 4 4 [facility] HOSPITAL ZACK - 4 4 [facility] OUTPATIEN INC OFFICE 74335 [facility] LIZB[facility]Ag OUTPATIEN 3 3 PHYSICIAN JAM T VISIT S GROUP 15 MINUTES OFFICE 16763 CAMERON GORDILLO OUTPATIEN 3 3 MEDICAL T VISIT SERV [address] [facility] ZACK - 3 3 [facility] ZACK - 3 3 [facility] EMERGENCY 52111 ZACK 3 3 [facility] T VISIT LIMITED/M INOR PROB EMERGENCY 92327 EMEKA ALFORD 3 3 EMERGENCY III [facility] SERVICES T VISIT HIGH/URGE NT SEVERITY HOSPITAL ZACK - 3 3 [facility] EMERGENC[facility] 50662 ZACK 3 3 [facility] T VISIT HIGH/URGE NT SEVERITY EMERGENCY 32596 EMEKA LIRA DEPT 3 3 EMERGENCY VISIT SERVICES HIGH SEVERITY& THREAT RUST ZACK - 3 3 [facility]IEN [facility] ZACK - 3 3 [facility] OFFICE 85721 CAMERON GORDILLO OUTPATIEN 3 3 MEDICAL T VISIT SERV [address] [facility] ZACK - 3 3 [facility]EN [facility] ZACK - 3 3 [facility] ZACK - 3 3 [facility] ZACK - 3 3 [facility] ZACK - 3 3 [facility] 18017 EMEKA CASTELLANO DEPT 2 2 EMERGENCY VISIT SERVICES HIGH SEVERITY& THREAT [place] ZACK - 2 2 [facility] 2 [facility] 2 [facility] OFFICE 07614 CAMERON WEI RAND OUTPATIEN 2 2 MEDICAL T [facility]ISIT SERV 25 [facility] ZACK - 2 2 [facility] Z[facility] 2 2 [facility] Z[facility] 2 2 [facility] OFFICE [id number] CAMERON ERIBERTO GORDILLO OUTPATIEN 2 2 MEDICAL T VISIT SERV 15 [facility] ZACK - 2 2 [facility] Z[facility] 2 2 [facility] EMERGENCY 23899 EMEKA ALFORD DEPT 2 2 EMERGENCY III NANCY VISIT SERVICES HIGH SEVERITY& THREAT [facility] EMERGENCY 87094 ZACK 2 [address] [facility] VISIT HIGH/URGE NT SEVERITY [facility] - 2 2 [facility] Z[facility] - 2 2 [facility] EMERGENCY 45762 ZACK 2 [address] [facility] VISIT [facility]IGH/URGE NT SEVERITY EMERGENCY 41388 EMEKA WILCOX DEPT 2 2 EMERGENCY [facility] VISIT SERVICES HIGH SEVERITY& THREAT [place] ZACK - 2 2 [facility] INPATIENT [facility] OFFICE 99630 FAMILY STRAWZELL OUTPATIEN 2 2 CARE CRI T VISIT ASSOCIATE 25 S, PSC MINUTES OFFICE 15547 FAMILY STRAWZELL OUTPATIEN 2 2 CARE CRI T VISIT ASSOCIATE 15 S, [facility] ZACK - 2 2 [facility] OUT[facility]EN [facility] T EMERGENCY 48437 ZACK 2 2 [facility] T VISIT LOW/MODER SEVERITY EMERGENCY 46632 EMEKA ALFORD 2 2 EMERGENCY III [facility] T VISIT HIGH/URGE NT SEVERITY OFFICE 58718 [place] WEISada GORDILLO OUTPATIEN 2 2 MEDICAL T VISIT SERV 25 [facility] ZACK - 2 2 [facility]EN [facility] T OFFICE 13130 PAWSAT PAWSAT OUTPATIEN 2 2 Aug T [facility] 30 [facility] ZACK - 1 1 [facility] ZACK - 1 1 [facility] T OFFICE [address]486 [place] ERIBERTO GORDILLO OUTPATIEN 1 1 MEDICAL T VISIT SERV 25 [facility] ZACK - 1 1 [facility] EM[facility] 56834 ZACK 1 1 [facility] DEPARTMEN [facility] T VISIT MODERATE SEVERITY [facility] ZACK - 1 1 [facility] ZACK - 1 1 [facility] ZACK - 1 1 [facility] ZACK [facility] 1 1 [facility] T OFFICE 16533 [place] S[place] OUTPATIEN 1 1 [place] T NEW 45 CLINIC MINUTES [facility] ZACK - 1 1 [facility] OUTPATIEN [place] T OFFICE [address]23 [place] ERIBERTO GORDILLO OUTPATIEN 1 1 MEDICAL T NEW 60 SERV MINUTES [facility] ZACK - 1 1 [facility] INC T OFFICE 16165 FAMILY MULBERRY OUTPATIEN 1 1 CARE NILO T VISIT ASSOCIATE 40 S MINUTES EMERGENCY 31345 EMEKA WU 1 1 EMERGENCY JAM DEPARTMEN SERVICES T VISIT MODERATE SEVERITY EMERGENCY 12881 ZACK 1 1 [facility] DE[facility] INC T VISIT LOW/MODER SEVERITY [facility] - 1 1 [facility] T OFFICE 30230 FAMILY LOGANBERRY OUTPATIEN 1 1 CARE NILO T VISIT ASSOCIATE 25 S MINUTES OFFICE 71247 ANKUSH LECHUGA JR OUTPATIEN 1 1 ELAINE ELAINE T VISIT 15 MINUTES [facility]OSPITAL ZACK - 1 1 [facility]EN INC T OFFICE [id number] ANKUSH LECHUGA JR OUTPATIEN 1 1 ELAINE ELAINE T NEW 45 MINUTES [facility] - [facility] OFFICE 07133 FAMILY JADA OUTPATIEN 1 1 CARE NILO T VISIT ASSOCIATE 25 S MINUTES EMERGENCY 02721 EMEKA CASTELLANO 1 1 EMERGENCY DEPARTMEN SERVICES T VISIT HIGH/URGE NT SEVERITY [facility] INC T EMERGENCY 65201 [facility] 1 1 [facility] DEPARTMEN INC T VISIT LOW/MODER SEVERITY OFFICE 40310 FAMILY BRENDAN J OUTPATIEN 1 1 CARE T VISIT ASSOCIATE 15 S MINUTES EMERGENCY 86968 EMEKA WILCOX 0 0 EMERGENCY [facility] DEPARTMEN SERVICES T VISIT HIGH/URGE NT SEVERITY EMERGENCY 44098 [facility] 0 0 [facility] DEPARTMEN INC T VISIT LOW/MODER SEVERITY [facility] OUT[facility] INC T OFFICE 88219 FAMILY BRENDAN J OUTPATIEN 0 0 CARE T VISIT ASSOCIATE 15 S MINUTES OFFICE 40334 FAMILY BRENDAN J OUTPATIEN 0 0 CARE T VISIT ASSOCIATE 15 S MINUTES [facility] INC T OFFICE 35836 FAMILY MULBERRY OUTPATIEN 0 0 CARE NILO T VISIT ASSOCIATE 25 S MINUTES [facility] 0 [facility] - [facility] 0 [facility] PH[facility] JAM T NEW 45 S GROUP MINUTES EMERGENCY 33189 [facility] 0 0 [facility] DEPARTMEN INC T VISIT MODERATE SEVERITY [facility] - 0 0 [facility] OUT[facility]IEN INC T EMERGENCY 62771 EMEKA WILCOX 0 0 EMERGENCY [facility] DEPARTMEN SERVICES T VISIT HIGH/URGE NT SEVERITY OFFICE 00263 FAMILY MULBERRY OUTPATIEN 0 0 CARE NILO T VISIT ASSOCIATE 25 S MINUTES OFFICE 66946 FAMILY MULBERRY, OUTPATIEN 0 0 CARE CLEO T T VISIT ASSOCIATE 15 S MINUTES OFFICE 52619 FAMILY MULBERRY, OUTPATIEN 0 0 CARE CLEO T T VISIT ASSOCIATE 25 S MINUTES OFFICE 56588 FAMILY MULBERRY, OUTPATIEN 0 0 CARE CLEO T T VISIT ASSOCIATE 15 S MINUTES OFFICE 02642 FAMILY MULBERRY, OUTPATIEN 0 0 CARE CLEO T T VISIT ASSOCIATE 25 S MINUTES EMERGENCY 65819 EMEKA WILCOX DEPRia 0 0 EMERGENCY TAYA S VISIT SERVICES HIGH SEVERITY& ASSOCIATE THREAT S [facility] - 0 0 [facility] INPATIENT INC OFFICE 40787 FAMILY JADA, OUTPATIEN 0 0 CARE CLEO T T VISIT ASSOCIATE 15 S MINUTES [facility] - 0 0 [facility] OUT[facility]IEN INC T EMERGENCY 14074 ZAKC 0 0 [facility] DEPARTMEN INC T VISIT LOW/MODER [facility]VERITY [facility] 0 0 [facility] OUT[facility] INC T OFFICE 06776 MEANS BUTROS, OUTPATIEN 9 9 ADULT REVANESAA T VISIT PRIMARY [address] [facility] ZACK - 9 9 [facility] OUT[facility] INC T OFFICE 74855 MEANS BUTROS, OUTPATIEN 9 9 ADULT REVANESAA T VISIT PRIMARY [address] [facility] ZACK - 9 9 [facility] OUTPATIEN INC T OFFICE 64227 MEANS BUTROS, CONSULTAT 9 9 ADULT RERANDALLLLA ION PRIMARY [facility] 80 MIN OFFICE 38507 FAMILY JADA OUTPATIEN 9 9 CARE CLEO T T VISIT ASSOCIATE 15 S MINUTES [facility] - 9 9 [facility] OUT[facility] INC T OFFICE 20115 FAMILY JADA OUTPATIEN 9 9 CARE CLEO T T VISIT ASSOCIATE 25 S MINUTES [facility] - 9 9 [facility] OUT[facility] INC T OFFICE 03039 FAMILY JADA OUTPATIEN 9 9 CARE CLEO T T VISIT ASSOCIATE 25 S MINUTES OFFICE 97303 FAMILY KO OCAMPO 8 8 CARE R PADMINI T VISIT ASSOCIATE 25 S MINUTES [facility] - 8 8 [facility] OUT[facility]IEN INC T OFFICE 37220 Sameer MARCOS 8 8 CARE G T VISIT ASSOCIATE 15 S MINUTES EMERGENCY 91394 [facility] L[facility]MODER SEVERITY [facility] - 8 8 [facility] 30424 ZACK 8 8 [facility] [place] T VISIT LIMITED/M [facility] 8 8 [facility] T
--- OUTSIDE RECORDS SUMMARY | 2016-10-19 17:43 | External Medical Summary Rpt ---
Demographics Preferred Language Sammarinese Marital Status Unknown Oriental Orthodox Affiliation Unknown Race Unknown Ethnic Group Unknown Author Author , Organization [employer] Address Unknown Phone Unavailable Purpose Continuity of Care Document - through 2016 Immunization No patient found.
--- OUTSIDE RECORDS SUMMARY | 2016-10-19 17:43 | External Medical Summary Rpt ---
Demographics Preferred Language Hungarian Marital Status Unknown Quaker Affiliation Unknown Race Unknown Ethnic Group Unknown Author Author , Organization [employer] Address Unknown Phone Unavailable Purpose Continuity of Care Document - through 2016 Immunization No patient found.
[2016-10-19] MEDS ORDERED: ZITHROMAX 250M250 MG PO (19:26)
[2016-10-19 20:13] VITALS: BP 108/57
== END 2016-10-19 20:14 | disposition home or self-care (01) ==
LOC: ER 15:40
PROVIDERS: Emergency Medicine
DX: J18.1 Lobar pneumonia, unspecified organism (principal); R07.9 Chest pain, unspecified; I10 Essential (primary) hypertension; E11.9 Type 2 diabetes mellitus without complications; Z79.4 Long term (current) use of insulin
CPT/HCPCS: J2405

== ENCOUNTER 2016-10-20 17:11 | Inpatient (IN) | payer MEDICARE, MEDICAID ==
[~2016-10-20] VITALS: Ht 147.3 cm; Wt 100.8 kg
[~2016-10-20 17:11] MED LIST changes: +ZITHROMAX 250M250 MG PO
[2016-10-20 17:13] VITALS: BP 93/65
--- OUTSIDE RECORDS SUMMARY | 2016-10-20 17:31 | External Medical Summary Rpt ---
Author Author , Organization [employer] Address Unknown Phone Unavailable Care Team Providers Care Rv Servicer Name Role Phone CALDERON VALENTINE, CALDERON Unavailable [...] TRACY RODRIGUEZ ALL, RODRIGUEZ ALL Unavailable Unavailable [facility] Unavailable Unavailable SERVICE, [facility] Unavailable Unavailable SERVICE, [facility] BUTROS, REZKALLA, Unavailable Unavailable BUTROS, REZKALLA [facility] Unavailable Unavailable CONSULTANTS O, [facility] Unavailable Unavailable CAMPUS, [facility] Unavailable Unavailable CAMPUS, [facility] Unavailable Unavailable [place], [facility] [...] S MARISOL ANDREZ, Unavailable Unavailable MARISOL ANDREZ [facility] Unavailable Unavailable INC, [facility] Unavailable Unavailable Hospital, [facility] Unavailable Unavailable [facility]PITAL P, [facility] PETERS LANNY, PETERS LANNY Unavailable Unavailable PETERS LANNY, PETERS LANNY Unavailable Unavailable PETERS, GEE A, Unavailable Unavailable PETERS, GEE A [facility], Unavailable Unavailable [facility] JOINER, JOINER Unavailable Unavailable KLARISSA IMT, KLARISSA Unavailable Unavailable IMT Scarlet Patterson BAG CHECKER, Unavailable Unavailable Scarlet Patterson BAG CHECKER [facility] Unavailable Unavailable [facility], [facility] KOTTER JUAN J, KOTTER [...] MED [facility] Unavailable Unavailable [facility], [facility] Unavailable Unavailable SERVICES, [facility] MCKEMIE JR NANCY, Unavailable Unavailable MCKEMIE JR NANCY XAVI EPPS P, Unavailable Unavailable [facility] EP[facility] P MULBERRY NILO, Unavailable Unavailable MULBERRY NILO MULBERRY, CLEO T, Unavailable Unavailable MULBERRY, CLEO T CROWELL SON, CROWELL SON Unavailable Unavailable [facility] Unavailable Unavailable [facility], [facility] Clemente OCAMPO, Unavailable Unavailable Clemente [...] EMERGENCY PHYS, [facility] Unavailable Unavailable CLINIC, [facility] STRAWZELL CRI, Unavailable Unavailable STRAWZELL CRI [facility], Unavailable Unavailable [facility], Unavailable Unavailable [facility] WEI RAND, WEI RAND Unavailable Unavailable WEHRMAN III NANCY, Unavailable Unavailable WEHRMAN III NANCY [facility] Unavailable Unavailable LLC, [facility] ELSA LIRA, ELSA LIRA [...] 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 I44.1 Atrioventri [...] 10-13-2016 index (BMI) 50-59.9 , adult Z79.02 long-term 10-13-2016 (current) use of antithrombo tics/antipl atelets Z79.4 long-term 10-13-2016 (current) use of insulin Z79.82 long-term 10-13-2016 (current) use of aspirin Z86.73 Personal 10-13-2016 history of transient ischemic attack (TIA), and cerebral infarction without residual deficits Z98.61 Coronary 10-13-2016 angioplasty status I44.30 Unspecified 10-07-2016 atrioventri cular block R57.9 Shock, 09-30-2016 unspecified E109 TYPE 1 09-14-2016 [facility] MELLITUS GROUP WITHOUT COMPLICATIO NS I213 ST 09-14-2016 [facility] ELEVATION PHYSICIANS MYOCARDIAL GROUP INFARCTION UNS SITE I739 PERIPHERAL 09-14-2016 [facility] VASCULAR PHYSICIANS DISEASE GROUP UNSPECIFIED N183 CHRONIC 09-14-2016 [facility] KIDNEY PHYSICIANS DISEASE GROUP STAGE 3 MODERATE E1142 TYPE 2 09-13-2016 [facility] P W/DIAB POLYNEUROPA THY I119 HYPERTENSIV 09-13-2016 [facility] E HEART PHYSICIANS, DISEASE PLLC WITHOUT HEART FAILURE I129 HYPERTENSIV 09-13-2016 [facility] E CKD [facility] W/STAGE 1-4 INC CKD OR UNS CKD V46864 [facility] 09-13-2016 [facility] COR ART [facility] W/UNSTABLE INC ANGINA PECTORIS I5043 ACUTE ON 09-13-2016 [facility] P SYSTOLIC & DIASTOLIC CHF I773 ARTERIAL 09-13-2016 [facility] FIBROMUSCUL [facility] AR INC DYSPLASIA R0602 SHORTNESS 09-13-2016 [facility] OF BREATH PHYSICIANS GROUP R0689 OTHER 09-13-2016 [facility] ABNORMAL[facility]I [facility]BULANCE ES OF SERVICE BREATHING Z794 LONG-TERM 09-13-2016 [facility] CURRENT USE [facility] OF INSULIN INC E039 HYPOTHYROID 06-09-2016 [facility] ISM [facility] UNSPECIFIED INC E118 TYPE 2 06-09-2016 [facility] DIABETES [facility] MELLITUS INC W/UNS COMPLICATIO NS E119 TYPE 2 03-21-2016 [place] [facility] MELLITUS [facility] WITHOUT COMPLICATIO NS M810 AGE-RELATED 03-21-2016 [facility] OSTEOPOROSI [facility] S W/O CURRNT PATH FX N184 CHRONIC 03-21-2016 [facility] DISEASE [facility] STAGE 4 SEVERE N250 RENAL 03-21-2016 [place] [facility] OSTEODYSTRO SERV PHY [facility] N390 URINARY 03-18-2016 [facility] TRACT PHYSICIANS INFECTION LA SITE NOT SPECIFIED N51121 TYPE 2 02-28-2016 [facility] P W/HYPOGLYCE VICTORIANO W/O COMA E162 HYPOGLYCEMI 02-28-2016 [facility]za PHYSICIANS, UNSPECIFIED PLLC E876 HYPOKALEMIA 02-28-2016 [facility] INC I10 ESSENTIAL 02-28-2016 [facility] N I5032 CHRONIC 02-28-2016 [facility] P HEART FAILURE R410 DISORIENTAT 02-28-2016 [facility] UNSPECIFIED SERVICE Z591 INADEQUATE 02-28-2016 [facility] INC [id number] OTHER LONG 02-28-2016 [facility] TERM [facility] CURRENT INC DRUG THERAPY G4733 OBSTRUCTIVE 02-15-2016 [facility] SLEEP HOME APNEA ADULT MEDICAL PEDIATRIC EQUIPME [id number] MX FX 02-15-2016 [facility] PELVIS STBL HOME [...] UNSPECIFIED MEDICAL IMAGING ASS R404 TRANSIENT 09-05-2015 [place] [facility]ICAL OF IMAGING ASS AWARENESS R4182 ALTERED 09-05-2015 [facility] MENTAL PHYSICIANS, STATUS PLLC UNSPECIFIED R464 SLOWNESS 09-05-2015 [facility] RESPONSIVEN SERVICE ESS J05537 CELLULITIS 08-16-2015 [facility] RIGHT [place] LOWER LIMB INTERNAL MED H05535 CELLULITIS 08-16-2015 [facility] [place] LEFT [place] LOWER LIMB INTERNAL MED E1021 TYPE 1 08-10-2015 [facility] DIABETES [facility] MELLITUS INC W/DIABETIC NEPHROPATHY E1065 TYPE 1 08-10-2015 [facility] DIABETES [facility] MELLITUS INC WITH HYPERGLYCEM IA E138 OTH SPEC 08-10-2015 [facility] DIABETES PHYSICIANS, MELLITUS PLLC W/UNS COMPLICATIO NS O29163 CELLULITIS 08-10-2015 [facility] OF PHYSICIANS, UNSPECIFIED PLLC PART OF LIMB R739 HYPERGLYCEM 08-10-2015 [facility] [place] [facility] UNSPECIFIED SERVICE L853 XEROSIS 08-09-2015 [facility] CUTIS [place] INTERNAL MED E6601 MORBID 08-05-2015 [facility] SEVERE [place]LEY OBESITY DUE INTERNAL TO EXCESS MEDI CALORIES I270 PRIMARY 07-20-2015 [facility] PULMONARY [facility] HYPERTENSIO CAMPUS N I5030 UNSPECIFIED 07-20-2015 [facility] HEART FAILURE R0600 DYSPNEA 07-20-2015 [facility] M542 CERVICALGIA 07-12-2015 [facility] M546 PAIN IN 07-12-2015 [facility] THORACIC MOBILEX SPINE I509 HEART 07-11-2015 [facility] FAILURE VALLEY UNSPECIFIED INTERNAL MED I8311 VARICOSE 07-11-2015 [facility] VEINS RT [place] LOWER INTERNAL EXTREMITY MED W/INFLAMMAT ION M4003 POSTURAL 07-11-2015 [facility] KYPHOSIS VALLEY CERVICOTHOR INTERNAL ACIC REGION MED R05 COUGH 06-05-2015 [facility] R600 LOCALIZED 05-09-2015 [facility] O I348 OTHER 05-05-2015 [place] [facility] NONRHEUMATI SERV C MITRAL FOUNDATION VALVE DISORDERS I361 NONRHEUMATI 05-05-2015 [place] [facility] [place] TRICUSPID SERV VALVE FOUNDATION INSUFFICIEN CY I371 NONRHEUMATI 05-05-2015 [place] [facility] PULMONARY SERV VALVE FOUNDATION INSUFFICIEN [...] HOSP 40.0-44.9 INC ADULT N3020 OTHER 04-28-2015 [facility] WITHOUT HEMATURIA J209 ACUTE 03-31-2015 [facility] BRONCHITIS [facility] UNSPECIFIED INC Y24366 PERSONAL 03-31-2015 [facility] HISTORY OF [facility] NICOTINE INC DEPENDENCE A499 BACTERIAL 03-23-2015 [place] [facility] INFECTION SERV UNSPECIFIED FOUNDATION R279 UNSPECIFIED 03-19-2015 [facility] LACK OF MEM HOS[facility] COORDINATIO INC N Z5189 ENCOUNTER 03-19-2015 [facility] FOR OTHER [facility] SPECIFIED INC AFTERCARE 11076 DIAB W/O 03-17-2015 [facility] COMP TYPE I HOME [JUV] NOT MEDICAL STATED EQUIPME UNCNTRL 93594 OBSTRUCTIVE 03-17-2015 [facility] SLEEP HOME APNEA MEDICAL EQUIPME 71091 MULTIPLE 03-17-2015 [facility] CLOSED HOME PELVIC FX MEDICAL DISRUPT EQUIPME [place] 2449 UNSPECIFIED 03-10-2015 [facility] HYPOTHYROID INC ISM 89292 DIAB W/O 03-10-2015 [facility] COMP TYPE [facility] II/UNS NOT INC STATED UNCNTRL 5854 CHRONIC 03-10-2015 [facility] KIDNEY [facility] DISEASE INC STAGE IV (SEVERE) 5990 URINARY 03-10-2015 [facility] TRACT [facility] INFECTION INC SITE NOT SPECIFIED 98176 UNSPECIFIED 03-10-2015 [facility] OSTEOPOROSI INC S 4019 UNSPECIFIED 03-02-2015 [facility] ESSENTIAL VAL[place] HYPERTENSIO INTERNAL N MEDI 4541 VARICOSE 03-02-2015 [facility] VE[place] LOWER [place] INTERNAL EXTREMITIES MEDI W/INFLAMMAT ION 22894 UNSPECIFIED 03-02-2015 [facility] [place] CONSTIPATIO INTERNAL N MEDI 5939 UNSPECIFIED 03-02-2015 [facility] DISORDER VALLEY OF KIDNEY INTERNAL AND URETER MEDI 7823 EDEMA 03-02-2015 [facility] INTERNAL MEDI 51620 UNSPECIFIED 03-02-2015 [facility] RETENTION VAL[place] OF URINE INTERNAL MEDI 58193 UNSPECIFIED 02-24-2015 [facility] ARTHROPATHY [facility] P MULTIPLE SITES 7813 LACK OF 02-24-2015 [facility] P V571 OTHER 02-24-2015 [facility] PHYSICAL [facility] THERAPY INC 5952 OTHER 02-03-2015 [facility] P 2761 HYPOSMOLALI 01-17-2015 [facility] TY AND/OR HEALTH HYPONATREMI CAMPUS A 70341 LEUKOCYTOSI 01-17-2015 [facility] S HEALTH UNSPECIFIED CAMPUS 5849 ACUTE 01-17-2015 [facility] KIDNEY HEALTH FAILURE CAMPUS UNSPECIFIED 7197 DIFFICULTY 01-17-2015 [facility] IN WALKING HEALTH CAMPUS 92323 MUSCLE 01-17-2015 [facility] WEAKNESS HEALTH (GENERALIZE CAMPUS D) 7993 UNSPECIFIED 01-17-2015 [facility] DEBILITY HEALTH CAMPUS 9953 ALLERGY 01-17-2015 [facility] UNSPECIFIED HEALTH NOT CAMPUS ELSEWHERE CLASSIFIED 01324 HTN CKD UNS 12-25-2014 [place] [facility] W/CKD SERV STAGE I FOUNDATION THRU STAGE IV/UNS 515 POSTINFLAMM 12-16-2014 [facility] ATORY [facility] PULMONARY FIBROSIS V5881 FITTING AND 12-16-2014 [facility] ADJUSTMENT [facility]BI[facility] OF VASCULAR CATHETER 4280 CONGESTIVE 12-09-2014 [facility] HEART [facility]BI[facility] FAILURE UNSPECIFIED 4293 CARDIOMEGAL 12-09-2014 [facility] Y [facility]LEX 1101 DERMATOPHYT 12-04-2014 [facility] OSIS OF E NAIL 65447 DIAB 12-04-2014 [facility] W/PERIPH E CIRC D/O TYPE II/UNS NOT UNCNTRL 4439 UNSPECIFIED 12-04-2014 [facility] PERIPHERAL E VASCULAR DISEASE 9172 FOOT&TOE 12-04-2014 [facility] BLISTER E WITHOUT MENTION OF INFECTION 9243 CONTUSION 12-04-2014 [facility] OF TOE E 77175 ABDOMINAL 11-03-2014 [place] PAIN RIGHT MEDICAL UPPER IMAGING ASS QUADRANT 5533 DIAPHRAGMAT 11-01-2014 [place] KODY W/O MEDICAL MENTION IMAGING ASS OBSTRUCTION /GANGREN 7905 OTHER 11-01-2014 [place] NONSPECIFIC MEDICAL ABNORMAL IMAGING ASS SERUM ENZYME LEVELS 7862 COUGH 10-30-2014 [place] [facility] V5869 LONG-TERM 10-30-2014 [facility] (CURRENT) [facility] USE OF INC OTHER MEDICATIONS 53624 UNSPECIFIED 10-28-2014 [place] OTALGIA MEDICAL IMAGING ASS 7224 DEGENERATIO 10-28-2014 [place] N OF MEDICAL CERVICAL IMAGING ASS INTERVERTEB RAL DISC 7231 CERVICALGIA 10-28-2014 [facility] 78321 SENILE 06-23-2014 [facility] OSTEOPOROSI [facility] S INC 9159 UNSPECIFIED 05-20-2014 [facility] VITAMIN D [facility] DEFICIENCY INC 2724 OTHER AND 05-20-2014 [facility] UNSPECIFIED [facility]OS[facility] INC HYPERLIPIDE VICTORIANO 00213 OTHER 05-20-2014 [facility] OSTEOPOROSI [facility] S INC 70428 HYPERTENSIV 02-20-2014 [facility] E HEART [facility] DISEASE INC UNSPEC W/HEART FAIL 4660 ACUTE 02-20-2014 [facility] BRONCHITIS [facility] INC 490 BRONCHITIS 02-20-2014 [facility] SPECIFIED PHYS ACUTE OR CHRONIC 88108 SWELLING OF 02-20-2014 [facility] 5853 CHRONIC 11-18-2013 [place] [facility] DISEASE FOUNDATIO STAGE III (MODERATE) 586 UNSPECIFIED 10-29-2013 [facility] RENAL [facility]YSIC[facility]ANS FAILURE [place] 7262 OTHER 05-30-2013 [facility] AFFECTIONS PHYSICIANS OF SHOULDER GROUP REGION NEC 53773 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-2013 [facility] 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 81195 DISORDER OF 05-21-2013 [place] BONE AND MEDICAL CARTILAGE IMAGING ASS UNSPECIFIED V1559 PERSONAL 05-21-2013 [place] HISTORY OF MEDICAL OTHER IMAGING ASS INJURY V4981 ASYMPTOMATI 05-21-2013 [place] C MEDICAL POSTMENOPAU IMAGING ASS KEELY STATUS 32743 UNSPECIFIED 04-29-2013 [facility] INFECTION SERVICES IN CCE & UNS SITE 4659 ACUTE URIS 04-29-2013 [facility] OF EMERGENCY UNSPECIFIED SERVICES SITE 11509 CRAMP OF 04-05-2013 [facility] LIM[place] PHYSICIANS [place] 7241 PAIN IN 01-16-2013 [facility] SPINE [facility] P 30429 ORTHOPNEA 01-16-2013 [facility] P 62785 OTHER 01-16-2013 [facility] DYSPNEA [facility]GENCY SERVICES RESPIRATORY ABNORMALITI ES 7265 ENTHESOPATH 10-17-2012 [facility] Y OF HIP [facility] HOS[facility] REGION INC 75540 PAIN IN 08-22-2012 [place] JOINT MEDICAL PELVIC IMAGING ASS REGION AND THIGH 2749 GOUT, 07-16-2012 [place] [address] SHORTNESS 05-28-2012 [facility]IC 4240 MITRAL 05-27-2012 [facility] VALVE [facility] DISORDERS INC 81671 OSTEOARTHRO 05-27-2012 [facility] S UNSPEC [facility] WHETHER INC GEN/LOC UNSPEC SITE 51071 CHEST PAIN 05-27-2012 [place] UNSPECIFIED MEDICAL IMAGING ASS 93456 OTHER CHEST 05-27-2012 [facility] P 5859 CHRONIC 12-01-2011 [facility] KIDNEY [facility] DISEASE INC UNSPECIFIED 24632 HYPERSOMNIA 11-15-2011 [facility] WITH SLEEP [place] APNEA UNSPECIFIED 52757 ANEMIA OF 10-30-2011 [facility] P DISEASE 2859 UNSPECIFIED 10-30-2011 [facility] AN[facility]IA [facility] 34715 DEGEN 10-30-2011 [place] THORACIC/TH MEDICAL ORACOLUMBAR IMAGING ASS INTERVERTEB RAL DISC 44848 DEGEN 10-30-2011 [place] LUMBAR/LUMB MEDICAL OSACRAL IMAGING ASS INTERVERTEB RAL DISC 7242 LUMBAGO 10-30-2011 [facility] P 7245 UNSPECIFIED 10-30-2011 [facility] BACKACHE [facility] 7840 HEADACHE 10-30-2011 [facility] HOSP INC 42644 OTHER 10-20-2011 [place] DISEASES OF MEDICAL LUNG NOT IMAGING ASS ELSEWHERE CLASSIFIED 5199 UNSPECIFIED 10-20-2011 [place] DISEASE OF MEDICAL IMAGING ASS RESPIRATORY SYSTEM V5867 LONG-TERM 10-19-2011 [facility] USE OF [facility] P 3559 MONONEURITI 10-14-2011 [facility] S OF HOME UNSPECIFIED MEDICAL SITE EQUIPME 96953 OTHER 10-14-2011 [facility] MALAISE AND HOME FATIGUE MEDICAL EQUIPME 5180 PULMONARY 10-05-2011 [place] COLLAPSE MEDICAL IMAGING ASS 41794 OTHER 09-30-2011 [facility] STAPHYLOCOC [facility] CUS INC INFECTION IN CCE & UNS SITE 2768 HYPOPOTASSE 09-30-2011 [facility] VICTORIANO [employer] 2888 OTHER 09-30-2011 [facility] SPECIFIED DISEASE OF ASSOCIATES, WHITE BLOOD PSC CELLS 4599 UNSPECIFIED 09-30-2011 [facility] CIRCULATORY INC SYSTEM DISORDER 486 PNEUMONIA, 09-30-2011 [facility] ORGANISM [facility] UNSPECIFIED INC 76262 OTHER 09-30-2011 [place] SPECIFIED MEDICAL DISORDERS IMAGING ASS OF BLADDER 40297 OSTEOARTHRO 09-30-2011 [place] SIS UNSPEC MEDICAL WHETHER IMAGING ASS GEN/LOC LOWER LEG 06104 EFFUSION OF 09-30-2011 [place] LOWER LEG MEDICAL JOINT IMAGING ASS 7291 UNSPECIFIED 09-30-2011 [facility] MYALGIA [employer] MYOSITIS 7295 PAIN IN 09-30-2011 [facility] SOFT TISSUES OF ASSOCIATES, LIMB PSC 7821 RASH AND 09-14-2011 [facility] OTHER NONSPECIFIC ASSOCIATES, SKIN PSC ERUPTION V770 SCREENING 09-14-2011 [facility] FOR THYROID DISORDER ASSOCIATES, PSC V7791 SCREENING 09-14-2011 [facility] FOR LIPOID DISORDERS ASSOCIATES, PSC 24387 DIAB 06-24-2011 [facility] W/NEURO MANIFESTS TYPE II/UNS NOT UNCNTRL 7038 OTHER 06-24-2011 [facility] SPECIFIED DISEASE OF NAIL 14114 SECONDARY 03-29-2011 [facility] OSTEOARTHRO CLINIC PSC SIS LOWER LEG 36996 PAIN IN 03-29-2011 [facility] JOINT, [facility]OS[facility] LOWER LEG INC 93056 BACKGROUND 03-25-2011 [facility] DIABETIC VISION RETINOPATHY 38049 NUCLEAR 03-25-2011 [facility] SCLEROSIS VISION 7820 DISTURBANCE 02-09-2011 [facility] OF SKIN [facility] SENSATION INC 2767 HYPERPOTASS 02-07-2011 [facility] EMIA ASSOCIATES 460 ACUTE 02-07-2011 [facility] NASOPHARYNG ASSOCIATES ITIS 6929 CONTACT 01-27-2011 [facility] DERMATITIS& EMERGENCY OTHER SERVICES ECZEMA DUE UNSPEC CAUSE 63453 PAIN IN 12-09-2010 [facility] JOINT, ASSOCIATES MULTIPLE SITES 06497 UNSPEC 10-28-2010 ALLRAN JR VENTRAL ELAINE KODY W/O MENTION OBST/GANGRE N 30811 ABDOMINAL 09-21-2010 [facility] PAIN, MEM HOS[facility] GENERALIZED INC 7831 ABNORMAL 08-24-2010 [facility] WEIGHT GAIN PHYSICIANS [place] 5110 PLEURISY 07-18-2010 [facility] WITHOUT EMERGENCY MENTION SERVICES EFFUS/[place] [address] PAINFUL 07-18-2010 [place] RESPIRATION MEDICAL IMAGING ASS 2721 PURE 07-08-2010 [facility] HYPERGLYCER PHYSICIANS IDEMIA [place] 7944 NONSPECIFIC 07-07-2010 [facility] ABNORM ASSOCIATES RESULTS KIDNEY FUNCTION STUDY 31974 ASTHMA, 06-16-2010 [facility] UNSPECIFIED EMERGENCY , SERVICES UNSPECIFIED STATUS 06057 DIAB 05-21-2010 [facility] LANNY W/OPHTH MANIFESTS TYPE II/UNS NOT UNCNTRL 8250 CLOSED 04-28-2010 [facility] FRACTURE OF [facility]OS[facility] CALCANEUS INC V5416 AFTERCARE 04-28-2010 [place] HEALING MEDICAL TRAUMATIC IMAGING ASS FRACTURE LOWER LEG 8248 UNSPECIFIED 03-31-2010 [place] CLOSED MEDICAL FRACTURE OF IMAGING ASS ANKLE 72928 OTHER ANKLE 03-31-2010 [facility] [employer] STR[facility] S INC 9596 INJURY 02-17-2010 [place] OTHER AND MEDICAL UNSPECIFIED IMAGING ASS HIP AND THIGH 9597 INJURY 02-17-2010 [place] OTHER&UNSPE MEDICAL CIFIED KNEE IMAGING ASS LEG ANKLE&FOOT 920 CONTUSION 02-16-2010 [facility] OF FACE EMERGENCY SCALP AND SERVICES NECK EXCEPT EYE 77979 CONTUSION 02-16-2010 [facility] OF HIP MEM [facility]OS[facility] INC E8859 FALL FROM 02-16-2010 [facility] OTHER EMERGENCY SLIPPING SERVICES TRIPPING OR STUMBLING 60706 INSOMNIA 02-04-2010 [facility] UNSPECIFIED ASSOCIATES V0382 NEED PROPH 02-04-2010 [facility] VACCINATION ASSOCIATES AGAINST STREP PNEUMONE 08201 URINARY 11-04-2009 [facility] FREQUENCY ASSOCIATES 2811 OTHER 08-24-2009 [facility] VITAMIN B12 ASSOCIATES DEFICIENCY ANEMIA 514 PULMONARY 08-24-2009 [facility] CONGESTION ASSOCIATES AND HYPOSTASIS E8490 PLACE OF 07-10-2009 [facility] HOME IMAGING ASSOCIATES 01938 GEN 04-15-2009 [facility] OSTEOARTHRO CARE [facility]UB [facility] INVOLVING MULTIPLE SITES 7919 OTHER 03-31-2009 [facility] NONSPECIFIC [facility] FINDING INC EXAMINATION OF URINE 78031 NEPHRITIS&N 03-24-2009 [facility] EPHROPATHY PRIMARY W/OTH CARE CENTER PATHOLOG KIDNEY LES 45386 NOCTURIA 03-11-2009 [facility] 29449 HYPERSOMNIA 02-26-2009 [facility] UNSPECIFIED 91196 DIAB 11-28-2008 L[facility] W/OPHMADONNA Meza MANIFESTS TYPE II/UNS TYPE UNCNTRL 4619 ACUTE 06-17-2008 [facility] SINUSITIS, ASSOCIATES UNSPECIFIED 8082 CLOSED 03-18-2008 PROF[facility] FRACTURE OF L REHAB PUBIS ASSOC PSC 7089 UNSPECIFIED 11-17-2007 [facility] URTICARIA ASSOCIATES 6868 OTH SPEC 11-12-2007 [facility] IN[facility] SKIN&SUBCUT PROF SERV TISSUE V642 SURG/OTH 11-11-2007 [facility] PROC NOT MEM [facility] CARRIED OUT INC BECAUSE PTS DECN 401.9 Essential [place] hypertensio [facility] [id number] Diastolic [place] heart [facility] failure [facility] [id number] Diabetes [place] mellitus [facility] type 2 [facility] [id number] Mitral [place] valve [facility]86[facility]09 Dyspnea [facility] J18.9 PNEUMONIA, UNSPECIFIED ORGANISM R07.9 CHEST PAIN, UNSPECIFIED Allergies, Adverse Reactions, Alerts Type Drug Allergy Adverse Reaction to Substance Substance Reaction Severity SULFA (sulfonamide) ELSA JOHNSONMin Severe SYNDROME Sulfacetamide Unknown Unknown Celecoxib I-HIVES [...] RO 40 -3 SE 96 1- Lo AL 10 20 ng DE 20 13 er [...] 02:30 Cnc NT-proBNP SerPl-mCnc (10-03-2016 02:30) NT-proB 02610 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 017 pg/mL ed SerPl-m 02:30 Cnc MDRO Wnd (09-30-2016 22:55) CC XXX NOTAP complet VC-aCnc 017 NOT ed 22:55 APPLICA BLE L Bacteri [id number] complet a XXX 017 ed Anaerob 22:55 Staphyl e+Aerob ococcus e Cult aureus (organi sm) SCT SAUR STAPHYL OCOCCUS AUREUS L Bacteri [id number] complet a XXX 017 01 ed Anaerob [...] mIU/L-a Cnc NT-proBNP SerPl-mCnc (09-30-2016 12:10) NT-proB 58480 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 L STREP SCREEN (RAPID) (04-29-2013 08:24) STREP NEGATIV complet SCREEN 013 E ed (RAPID) 08:24 COMPREHENSIVE METABOLIC PANEL (01-16-2013 07:55) Glucose 07-31-2 105 74-106 complet 013 mg/dL ed Bld-mCn [...] 013 mg/dL ed SerPl-m 07:55 Cnc AST 31-2 7 U/L 15-37 complet SerPl-c 013 ed Cnc 07:55 ALT 01-16-2 27 U/L 30-65 complet SerPl-c 013 ed Cnc 07:55 ALP 01-16-2 112 U/L 50-136 complet SerPl-c 013 ed Cnc 07:55 D Dimer PPP (01-16-2013 07:55) D Dimer 07-31-2 739 0-400 High complet PPP 013 ng/mL alert ed 07:55 CBC with AUTO DIFF (01-16-2013 07:55) WBC # 07-31-2 8.8 4.8-10. complet Bld 013 K/MM3 8 ed Auto 07:55 RBC # 31-2 4.25 4.2-5.4 complet Bld 013 M/mm3 ed Auto 07:55 Hgb 01-16-2 12.7 12.2-16 complet Bld-mCn 013 g/dL .2 ed c 07:55 Hct Fr 01-16-2 38.8 % 37.0-47 complet Bld 013 .0 ed 07:55 MCV RBC 01-16-2 91.4 fl 82.2-97 complet 013 .8 ed 07:55 MCH RBC 01-16-2 30.0 pg 27-31.2 complet Qn 013 ed Auto 07:55 MEAN 01-16-2 32.8 31.8-35 complet CORPUSC 013 g/dl .4 ed ULAR 07:55 HGB CONC RDW RBC 01-16-2 14.3 % 11.5-17 complet Auto 013 .5 ed 07:55 Platele 01-16-2 252 142-424 complet t Bld 013 K/mm3 ed Ql 07:55 Manual MEAN 01-16-2 8.4 fl 7.4-10. complet PLATELE 013 4 ed T 07:55 VOLUME Granulo 01-16-2 72.0 % 37.0-80 complet cytes 013 .0 ed Fr Bld 07:55 Auto LYMPH % 01-16-2 18.7 % 10-50.0 complet 013 ed 07:55 Monocyt 31-2 5.0 % 1.7-9.3 complet es Fr 013 ed Bld 07:55 Auto Eosinop -31-2 3.8 % 0.1-12. complet hil Fr 013 0 ed Bld 07:55 Auto Basophi 31-2 0.4 % 0.1-2.0 complet ls Fr 013 ed Bld 07:55 Auto Granulo 07-31-2 6.3 1.8-7.8 complet cytes # 013 K/mm3 ed Bld 07:55 Auto Lymphoc 31-2 1.7 0.7-4.5 complet ytes Fr 013 K/mm3 ed Bld 07:55 Auto Monocyt 07-31-2 0.4 0.1-1.0 complet es # 013 K/mm3 ed Bld 07:55 Auto Eosinop 07-31-2 0.3 0.0-0.4 complet hil # 013 K/mm3 ed Bld 07:55 Auto Basophi 07-31-2 0.0 0-0.2 complet ls # 013 K/MM3 ed Bld 07:55 Auto Procedures Procedure DOS Code Location Performer Comment SBSQ [id number] [facility] 7 PHYSICIAN CARE/DAY S GROUP 25 MINUTES INITIAL [id number] [place] [address] PHYSICIAN CARE/DAY S GROUP 70 MINUTES ECG [id number] ZACK BARRETO JR ROUTINE 7 [facility] W/LEAST P 12 LDS I&R ONLY AMBULANCE [id number] [facility] SERVICE 7 AMBULANCE AMBULANCE BLS SERVICE SERVICE EMERGENCY TRANSPORT GROUND A0425 [facility] MILEAGE 7 AMBULANCE AMBULANCE PER SERVICE SERVICE STATUTE MILE DILAT [id number] ZACK DIXON CORONARY 7 [facility] ART 2 ART INC INC 2 RX-ELUT [place] DEVC PERQ FLUORO [id number] ZACK DIXON MULTI 7 [facility] CORONARY INC INC ARTERIES LOW OSMOLAR CONT FLUOROSCO [id number] ZACK DIXON PY LEFT 7 [facility] HEART LOW INC INC OSMOLAR CONTRAST FLUORO [id number] ZACK DIXON BILATERAL 7 [facility] RENAL INC INC ART LOW OSMOLAR CONTRST MEASUREME [id number] ZACK DIXON NT 7 [facility] CARDIAC INC INC 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 PRESS LT HEART PERQ HEMOGLOBI 09139 ZACK DIXON N 6 [facility] GLYCOSYLA INC INC ALEX A1C COLLECTIO 27964 ZACK DIXON N VENOUS 6 [facility] BLOOD INC INC VENIPUNCT URE COMPREHEN 17271 ZACK DIXON SIVE 6 [facility] [address] ZACK DIXON THYROID 6 [facility] STIMULATI INC INC NG HORMONE TSH LIPID 36298 ZACK DIXON PANEL 6 [facility] INC INC 25 18053 COMBINED COMBINED HYDROXY 6 PHYSICIAN PHYSICIAN INCLUDES S LA S LA FRACTIONS IF PERFORMED VOLUME 34678 COMBINED COMBINED MEASUREME 6 PHYSICIAN PHYSICIAN NT TIMED S LA S LA COLLECTIO N EACH CULTURE 43777 COMBINED COMBINED BACTERIAL 6 PHYSICIAN PHYSICIAN S LA S LA QUANTTATI VE COLONY COUNT URINE CULTURE 79838 COMBINED COMBINED BCT 6 PHYSICIAN PHYSICIAN ISOL&PRSM S LA S LA PTV ID ISOLATE EA URINE RENAL 36354 COMBINED COMBINED FUNCTION 6 PHYSICIAN PHYSICIAN PANEL S LA S LA URNLS DIP 31747 COMBINED COMBINED 6 PHYSICIAN PHYSICIAN STICK/TAB S LA S LA LET REAGENT AUTO MICROSCOP Y BLOOD 58945 COMBINED COMBINED COUNT 6 PHYSICIAN PHYSICIAN COMPLETE S LA S LA AUTO&AUTO DIFRNTL WBC DORCHESTER- A4258 ARRIVA ARRIVA WERED 6 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 EACH NORMAL A4256 ARRIVA ARRIVA LOW AND 6 MEDICAL MEDICAL HIGH CALIBRATO R SOLUTION/ CHIPS LANCETS A4259 ARRIVA ARRIVA PER BOX 6 MEDICAL MEDICAL OF 100 BLD GLU A4253 ARRIVA ARRIVA TEST/REAG 6 MEDICAL MEDICAL T STRIPS HOME BLD GLU MON-50 GLUC BLD 33387 ZACK DIXON GLUC MNTR 6 [facility] DEV INC INC CLEARED FDA SPEC [facility] [id number] ZACK DIXON OBSERVATI 6 [facility] ON INC INC SERVICE PER HOUR BASIC 62798 ZACK DIXON METABOLIC 6 [facility] PANEL INC INC CALCIUM TOTAL COLLECTIO 45973 ZACK DIXON N VENOUS 6 [facility] BLOOD INC INC VENIPUNCT URE COMPREHEN 86848 ZACK DIXON SIVE 6 [facility] METABOLIC INC INC PANEL COLLECTIO 07987 ZACK DIXON N VENOUS 6 [facility] BLOOD INC INC VENIPUNCT URE CREATINE 50391 ZACK DIXON KINASE MB 6 [facility] FRACTION INC INC [facility] G0378 ZACK DIXON OBSERVATI 6 [facility] ON INC INC SERVICE PER HOUR AMB A0427 [facility] SERVICE 6 AMBULANCE AMBULANCE ALS SERVICE SERVICE EMERGENCY TRANSPORT LEVEL 1 GLUC BLD 45284 ZACK DIXON GLUC MNTR 6 [facility] DEV INC INC CLEARED FDA SPEC HOME USE BLOOD 56460 ZACK DIXON COUNT 6 [facility] COMPLETE INC INC AUTO&AUTO DIFRNTL WBC URNLS DIP 45236 ZACK DIXON 6 [facility] STICK/TAB INC INC LET REAGENT AUTO MICROSCOP Y PRESSURIZ 91368 ZACK DIXON ED/NONPRE 6 [facility] SSURIZED INC INC INHALATIO N TREATMENT CREATINE 28806 ZACK DIXON KINASE 6 [facility] TOTAL INC INC THER 29962 ZACK DIXON PROPH/DX 6 [facility] NJX IV INC INC PUSH SINGLE/1S T SBST/DRUG ECG 04149 ZACK DIXON ROUTINE 6 [facility] ECG INC INC W/LEAST 12 LDS TRCG ONLY W/O I&[place] [address] ZACK DIXON TROPONIN 6 [facility] QUANTITAT INC INC MARIB[place] GROUND A0425 [facility] MILEAGE 6 AMBULANCE AMBULANCE PER SERVICE SERVICE STATUTE MILE ECG 28687 ZACK MCLEAN ROUTINE 6 [facility] W/LEAST P 12 LDS I&R ONLY STANDARD K0001 REID LOMAS 6 HOME HOME R MEDICAL MEDICAL EQUIPME EQUIPME [facility] BED E0260 REID MATHEWS SEMI-ELEC 6 HOME HOME W/ANY MEDICAL MEDICAL TYPE SIDE EQUIPME EQUIPME RAIL W/MATTRSS [facility] BED E0260 REID MATHEWS SEMI-ELEC 6 HOME HOME W/ANY MEDICAL MEDICAL TYPE SIDE EQUIPME EQUIPME RAIL W/MATTRSS STANDARD K0001 REID CHAUDHARII 6 HOME HOME R MEDICAL MEDICAL EQUIPME EQUIPME [facility] BED E0260 REID MATHEWS SEMI-ELEC 6 HOME [...] MEDICAL MEDICAL T STRIPS HOME BLD GLU MON- STANDARD K0001 REID GLASSRELL WHEELCHAI 6 HOME HOME R MEDICAL MEDICAL EQUIPME EQUIPME HOS BED E0260 REID REID SEMI-ELEC 6 HOME HOME W/ANY MEDICAL MEDICAL TYPE SIDE EQUIPME EQUIPME RAIL W/MATTRSS COLLECTIO 91682 ZACK DIXON N VENOUS 6 [facility] BLOOD INC INC VENIPUNCT URE LIPID 39225 ZACK DIXON PANEL 6 [facility] INC INC HEMOGLOBI 06357 ZACK DIXON N 6 [facility] GLYCOSYLA INC INC ALEX A1C BASIC 02974 ZACK DIXON METABOLIC 6 [facility] PANEL INC INC CALCIUM TOTAL STANDARD K0001 REID REID WHEELCHAI 6 HOME HOME R MEDICAL MEDICAL EQUIPME EQUIPME HOS BED E0260 REID REID SEMI-ELEC 6 HOME HOME W/ANY MEDICAL MEDICAL TYPE SIDE EQUIPME EQUIPME RAIL W/MATTRSS URNLS DIP 77833 ZACK DIXON 6 [facility] STICK/TAB INC INC LET REAGENT AUTO MICROSCOP Y STANDARD K0001 REID REID WHEELCHAI 6 HOME HOME R MEDICAL MEDICAL EQUIPME EQUIPME HOS BED E0260 REID REID SEMI-ELEC 6 HOME HOME W/ANY MEDICAL MEDICAL TYPE SIDE EQUIPME EQUIPME RAIL W/MATTRSS NORMAL A4256 ARRIVA ARRIVA LOW AND 6 MEDICAL MEDICAL HIGH CALIBRATO R SOLUTION/ CHIPS LANCETS A4259 ARRIVA ARRIVA PER BOX 6 MEDICAL MEDICAL OF 100 BLD GLU A4253 ARRIVA ARRIVA TEST/REAG 6 MEDICAL MEDICAL T STRIPS HOME BLD GLU REPL KIM A4233 ARRIVA ARRIVA ALKALINE 6 MEDICAL MEDICAL NOT J CELL [place]ERTY BG MON OWND PT OBSERVATI 94707 [facility] CARE 6 [facility] G0378 ZACK DIXON OBSERVATI 6 [facility] ON INC INC SERVICE PER HOUR GLUC BLD 45808 ZACK DIXON GLUC MNTR 6 [facility] DEV INC INC CLEARED FDA SPEC HOME USE BLOOD 53819 ZACK DIXON COUNT 6 [facility] COMPLETE INC INC AUTO&[place] [address] ZACK DIXON TROPONIN 6 [facility] QUANTITAT INC INC [facility] G0378 ZACK DIXON OBSERVATI 6 [facility] ON INC INC SERVICE PER HOUR GLUC BLD 03621 ZACK DIXON GLUC MNTR 6 [facility] DEV INC INC CLEARED FDA SPEC HOME USE BASIC 92746 ZACK DIXON METABOLIC 6 [facility] PANEL INC INC CALCIUM TOTAL COLLECTIO 21517 ZACK DIXON N VENOUS 6 [facility] BLOOD INC INC VENIPUNCT URE COMPREHEN 45887 ZACK DIXON SIVE 6 [facility] METABOLIC INC INC PANEL CREATINE 75067 ZACK DIXON KINASE MB 6 [facility] FRACTION INC INC ONLY COLLECTIO 84554 ZACK DIXON N VENOUS 6 [facility] BLOOD INC INC VENIPUNCT URE RADIOLOGI 35577 ZACK DIXON C 6 [facility] EXAMINATI INC INC ON CHEST SINGLE VIEW FRONTAL AMB A0427 [facility] SERVICE 6 AMBULANCE AMBULANCE ALS SERVICE SERVICE [place] [address] ZACK DIXON HEAD/BRAI 6 [facility] N W/O INC INC CONTRAST MATERIAL CREATINE 81555 ZACK DIXON KINASE 6 [facility] [place] [address] ZACK DIXON LIPASE 6 [facility] INC INC INJECTION J2405 ZACK DIXON 6 [facility] ONDANSETR INC INC ON HCL PER 1 [facility] G0378 ZACK DIXON OBSERVATI 6 [facility] ON INC INC SERVICE PER HOUR THERAPEUT 46481 ZACK DIXON IC 6 [facility] INJECTION INC [place] [address] ZACK ZACK TROPONIN 6 [facility] [place] [address] ZACKSHANDA DIXON INFUSION 6 [facility] THERAPY/P INC INC ROPHYLAXI S /DX 1ST TO 1 HR GLUC BLD 22444 ZACK DIXON GLUC MNTR 6 [facility] DEV INC INC CLEARED FDA SPEC HOME USE URNLS DIP 87397 ZACK DIXON 6 [facility] STICK/TAB INC INC LET REAGENT AUTO MICROSCOP Y BLOOD 83750 ZACK DIXON COUNT 6 [facility] COMPLETE INC INC AUTO&AUTO DIFRNTL WBC INITIAL 59124 [facility] [place] OBSERVATI 6 [facility] ON INTERNAL CARE/DAY MED 30 MINUTES ECG 13329 ZACK DIXON ROUTINE 6 [facility] ECG INC INC W/LEAST 12 LDS TRCG ONLY W/O I&R ECG 43933 ZACK BARRETO JR ROUTINE 6 [facility] W/LEAST P 12 LDS I&R ONLY GROUND A0425 [facility] MILEAGE 6 AMBULANCE AMBULANCE [place] [address] COMBINED COMBINED MAGNESIUM 6 PHYSICIAN PHYSICIAN S LA S LA CYANOCOBA 07819 COMBINED COMBINED SOHA 6 PHYSICIAN PHYSICIAN VITAMIN S [place] S LA B-12 [place] [address] COMBINED COMBINED PHOSPHORU 6 PHYSICIAN PHYSICIAN S S LA S LA INORGANIC ALBUMIN 48430 COMBINED COMBINED SERUM 6 PHYSICIAN PHYSICIAN PLASMA/WH S LA S LA OLE BLOOD BLOOD 70853 COMBINED COMBINED COUNT 6 PHYSICIAN PHYSICIAN COMPLETE S LA S LA AUTO&[place] [address] COMBINED COMBINED THYROID 6 PHYSICIAN PHYSICIAN STIMULATI S LA S LA NG HORMONE TSH BASIC 19227 COMBINED COMBINED METABOLIC 6 PHYSICIAN PHYSICIAN PANEL [place] [address] COMBINED COMBINED BLOOD/URI 6 PHYSICIAN PHYSICIAN C ACID S LA S LA STANDARD K0001 REID LOMAS 6 HOME HOME R MEDICAL MEDICAL EQUIPME EQUIPME HOS BED E0260 REID MATHEWS SEMI-ELEC 6 HOME HOME W/ANY MEDICAL MEDICAL TYPE SIDE EQUIPME EQUIPME RAIL W/MATTRSS PHYS G0179 [facility] RE-CERT 6 [facility] MCR-COVR INTERNAL [facility] HLTH MED SRVC RE-CERT PRD AMBULANCE A0429 [facility] SERVICE 6 AMBULANCE AMBULANCE BLS SERVICE SERVICE EMERGENCY TRANSPORT GROUND A0425 [facility] MILEAGE 6 AMBULANCE AMBULANCE PER SERVICE SERVICE STATUTE MILE COMPREHEN 19283 ZACK DIXON SIVE 6 [facility] METABOLIC INC INC PANEL GLUC BLD 32515 ZACK DIXON GLUC MNTR 6 [facility] DEV INC INC CLEARED FDA SPEC HOME USE BLOOD 56946 ZACK DIXON COUNT 6 [facility] COMPLETE INC INC AUTO&AUTO DIFRNTL WBC URNLS DIP 15971 ZACK DIXON 6 [facility] STICK/TAB INC INC LET REAGENT AUTO MICROSCOP Y SBSQ 57528 [facility]SING 6 [facility] FACIL INTERNAL CARE/DAY MED NEW PROBLEM 25 MIN SBSQ 71594 [facility] 6 [facility] INTERNAL CARE/DAY MEDI MINOR COMPLJ 15 MIN STANDARD K0001 REID CHAUDHARII 6 HOME HOME R MEDICAL MEDICAL EQUIPME EQUIPME HOS BED E0260 REID MATHEWS SEMI-ELEC 6 HOME HOME W/ANY MEDICAL MEDICAL TYPE SIDE EQUIPME EQUIPME RAIL W/MATTRSS RADEX 84910 SYMPHONY SYMPHONY SPINE 6 MOBILEX MOBILEX THORACIC 2 VIEWS RADEX 96522 SYMPHONY SYMPHONY SPINE 6 MOBILEX MOBILEX CERVICAL 2 OR 3 VIEWS SBSQ 28315 [facility] 6 [facility] FACIL INTERNAL CARE/DAY MED NEW PROBLEM 25 MIN STANDARD K0001 REID LOMAS 5 HOME HOME R MEDICAL MEDICAL EQUIPME EQUIPME HOS BED E0260 REID MATHEWS SEMI-ELEC 5 HOME HOME W/ANY MEDICAL MEDICAL TYPE SIDE EQUIPME EQUIPME RAIL W/MATTRSS CULTURE 66535 ZACK DIXON BACTERIAL 5 [facility] INC INC QUANTTATI VE COLONY COUNT URINE SUSCEPTIB 90125 ZACK DIXON LTY STDY 5 [facility] ANTIMICRB INC INC IAL MICRO/AGA R DILUTJ URNLS DIP 06502 ZACK DIXON 5 [facility] STICK/TAB INC INC LET REAGENT AUTO MICROSCOP Y RADIOLOGI 74934 ZACK DIXON C EXAM 5 [facility] CHEST 2 INC INC VIEWS FRONTAL&L ATERAL PRESSURIZ 17651 ZACK DIXON ED/NONPRE 5 [facility] SSURIZED INC INC INHALATIO N TREATMENT NATRIURET 03999 ZACK DIXON IC 5 [facility] PEPTIDE INC INC BLOOD 80064 ZACK DIXON COUNT 5 [facility] COMPLETE INC INC AUTO&AUTO DIFRNTL WBC COMPREHEN 82527 ZACK DIXON SIVE 5 [facility] METABOLIC INC INC PANEL AMB A0427 [facility] SERVICE 5 AMBULANCE AMBULANCE ALS SERVICE SERVICE EMERGENCY TRANSPORT LEVEL 1 GROUND A0425 [facility] 5 AMBULANCE AMBULANCE PER SERVICE SERVICE STATUTE MILE STANDARD K0001 REID LOMAS 5 HOME HOME R MEDICAL MEDICAL EQUIPME EQUIPME HOS BED E0260 REID MATHEWS SEMI-ELEC 5 HOME HOME W/ANY MEDICAL MEDICAL TYPE SIDE EQUIPME EQUIPME RAIL W/MATTRSS SBSQ 07286 [facility] 5 CULAR MAT CARE/DAY CONSULTAN 25 TS O MINUTES INITIAL 87698 [facility] 5 CULAR MAT CARE/DAY CONSULTAN 70 TS O MINUTES ECHO 85429 [facility] ECKERT TRANSTHOR 5 MEDICAL JUAN J C R-T 2D SERV W/WO FOUNDATIO M-MODE N REC F-UP/LMTD RADIOLOGI 23860 LIZZ Lopez EXAM 5 MEDICAL MELIDA CHEST 2 IMAGING VIEWS ASS FRONTAL&L ATERAL HOS BED E0260 REID MATHEWS SEMI-ELEC 5 HOME HOME W/ANY MEDICAL MEDICAL TYPE SIDE EQUIPME EQUIPME RAIL W/MATTRSS STANDARD K0001 REID CHAUDHARII 5 HOME HOME R MEDICAL MEDICAL EQUIPME EQUIPME THERAPEUT 12914 ZACK DIXON IC PX 1/> 5 [facility] AREAS INC INC EACH 15 MIN EXERCISES NORMAL A4256 ARRIVA ARRIVA LOW AND 5 MEDICAL MEDICAL HIGH CALIBRATO R SOLUTION/ CHIPS LANCETS A4259 ARRIVA ARRIVA PER BOX 5 MEDICAL MEDICAL OF 100 BLD GLU A4253 ARRIVA ARRIVA TEST/REAG 5 MEDICAL MEDICAL T STRIPS HOME BLD GLU MON-50 URNLS DIP 84094 ZACK CALDERON 5 [facility] LET RGNT P NON-AUTO W/O MICRSCP THERAPEUT 25854 ZACK DIXON IC PX 1/> 5 [facility] AREAS INC INC EACH 15 MIN EXERCISES HOS BED E0260 REID MATHEWS SEMI-ELEC 5 HOME HOME W/ANY MEDICAL MEDICAL TYPE SIDE EQUIPME EQUIPME RAIL W/MATTRSS STANDARD K0001 REID DELGADILLOCHAI 5 HOME HOME R MEDICAL MEDICAL EQUIPME EQUIPME THERAPEUT 52450 ZACK DIXON IC PX 1/> 5 [facility] AREAS INC INC EACH 15 MIN EXERCISES THERAPEUT 16785 ZACK DIXON IC PX 1/> 5 [facility] AREAS INC INC EACH 15 MIN EXERCISES RENAL 68487 ZACK DIXON FUNCTION 5 [facility] PANEL INC INC 25 28317 ZACK DIXON HYDROXY 5 [facility] INCLUDES INC INC FRACTIONS IF PERFORMED COLLECTIO 82528 ZACK DIXON N VENOUS 5 [facility] [place]LOOD [place] [address] ZACK DIXON THYROID 5 [facility] STIMULATI INC INC NG HORMONE TSH CULTURE 73832 ZACK DIXON BACTERIAL 5 [facility] INC INC QUANTTATI VE COLONY COUNT URINE CULTURE 04965 ZACK DIXON BCT 5 [facility] ISOL&PRSM INC INC PTV ID ISOLATE EA URINE HEMOGLOBI 95424 ZACK DIXON N 5 [facility] GLYCOSYLA INC INC ALEX A1C BLOOD 80530 ZACK DIXON COUNT 5 [facility] COMPLETE INC INC AUTO&AUTO DIFRNTL WBC SUSCEPTIB 47287 ZACK DIXON LTY STDY 5 [facility] ANTIMICRB INC INC IAL MICRO/AGA R DILUTJ URNLS DIP 75896 ZACK DIXON 5 [facility] STICK/TAB INC INC LET REAGENT AUTO MICROSCOP Y THERAPEUT 62889 ZACKSHANDA DIXON IC PX 1/> 5 [facility] AREAS INC INC EACH 15 MIN EXERCISES THERAPEUT 93266 ZACK DIXON IC PX 1/> 5 [facility] AREAS INC INC EACH 15 MIN EXERCISES THERAPEUT 26062 ZAKC DIXON IC PX 1/> 5 [facility] AREAS INC INC EACH 15 MIN EXERCISES THERAPEUT 77977 ZACK DIXON IC PX 1/> 5 [facility] AREAS INC INC EACH 15 MIN EXERCISES PHYSICAL 51856 ZACK ZACK THERAPY 5 [facility] EVALUATIO INC INC N CATH CLCT P9612 ZACK CALDERON SPECIMEN 5 [facility] PT ALL P PLACES SERVICE SUSCEPTIB 05041 ZACK DIXON LTY STDY 5 [facility] ANTIMICRB INC INC IAL MICRO/AGA R DILUTJ URNLS DIP 45581 ZACK CALDERON 5 [facility] LET RGNT P NON-AUTO W/O MICRSCP CULTURE 69773 ZACK DIXON BACTERIAL 5 [facility] INC INC QUANTTATI VE COLONY COUNT URINE CULTURE 95122 ZACK DIXON BCT 5 [facility] ISOL&PRSM INC INC PTV ID ISOLATE EA URINE HOS BED E0260 REID MATHEWS SEMI-ELEC 5 HOME HOME W/ANY MEDICAL MEDICAL TYPE SIDE EQUIPME EQUIPME RAIL W/MATTRSS STANDARD K0001 REID DELGADILLOCHAI 5 HOME HOME R MEDICAL MEDICAL EQUIPME EQUIPME COMMODE E0163 REID MATHEWS CHAIR 5 HOME HOME MOBILE OR MEDICAL MEDICAL EQUIPME EQUIPME STATIONAR Y W/FIXED ARMS ONELIA 25326 ZACK CALDERON POST-VOID 5 [facility] RESIDUAL P URINE&/BL ADDER CAP CULTURE 51676 ZACK DIXON BACTERIAL 5 [facility] INC INC QUANTTATI VE COLONY COUNT URINE CULTURE 30183 ZACK DIXON BCT 5 [facility] ISOL&PRSM INC INC PTV ID ISOLATE EA URINE SUSCEPTIB 05472 ZACK DIXON LTY STDY 5 [facility]OSP ANTIMICRB INC INC IAL MICRO/AGA R DILUTJ RADIOLOGI 95626 SYMPHONY SYMPHONY C 5 MOBILEX MOBILEX EXAMINATI ON CHEST SINGLE VIEW FRONTAL RADIOLOGI 09205 SYMPHONY SYMPHONY C 5 MOBILEX MOBILEX EXAMINATI ON CHEST SINGLE VIEW FRONTAL INITIAL 78734 [facility] 5 ARE ANDREZ FACILITY CARE/DAY 25 MINUTES DEBRIDEME 30654 [facility] NT NAIL 5 ARE ANDREZ ANY METHOD 6/> SBSQ 45928 [facility] INTERNAL CARE/DAY MED NEW PROBLEM 25 MIN BLOOD 14346 COMBINED COMBINED COUNT 5 PHYSICIAN PHYSICIAN COMPLETE S LA S LA AUTO&AUTO DIFRNTL WBC BASIC 48927 COMBINED COMBINED METABOLIC 5 PHYSICIAN PHYSICIAN [place] [address] [place] FRANKY ABDOMINAL 5 MEDICAL KAY REAL IMAGING TIME ASS W/[place] [address] [place] SHERI ABDOMEN & 5 MEDICAL MELIDA PELVIS IMAGING W/O ASS CONTRAST MATERIAL ECG 50606 ZACK MCLEAN ROUTINE 5 [facility] W/LEAST P 12 LDS I&R ONLY CRITICAL 69065 ZACK ZACK CARE 5 [facility] P P PATIENT INIT 30-74 MIN RADIOLOGI 15234 [place] RODRIGUEZ ALL C 5 MEDICAL EXAMINATI IMAGING ON CHEST ASS SINGLE VIEW FRONTAL RADEX 28223 [place] FRANKY MASTOIDS 5 MEDICAL KAY COMPL IMAGING MINIMUM 3 ASS VIEWS AK SIDE RADEX 27751 [place] FRANKY SPINE 5 MEDICAL KAY CERVICAL IMAGING 4 OR 5 ASS VIEWS LANCETS A4259 ARRIVA ARRIVA PER BOX 5 MEDICAL MEDICAL OF 100 NORMAL A4256 ARRIVA ARRIVA LOW AND 5 MEDICAL MEDICAL HIGH CALIBRATO R SOLUTION/ CHIPS BLD GLU A4253 ARRIVA ARRIVA TEST/REAG 5 MEDICAL MEDICAL T STRIPS HOME BLD GLU MON-50 SPRING-PO A4258 ARRIVA ARRIVA WERED 5 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 EACH COMPREHEN 86936 COMBINED COMBINED SIVE 5 PHYSICIAN PHYSICIAN METABOLIC S LA S LA PANEL COLLECTIO 11154 ZACK DIXON N VENOUS 5 [facility] BLOOD INC INC VENIPUNCT URE RENAL 74307 ZACK DIXON FUNCTION 5 [facility] PANEL INC INC THERAPEUT 08272 ZACK DIXON IC 5 [facility] PROPHYLAC INC INC TIC/DX INJECTION SUBQ/IM INJECTION J0897 ZACK DIXON 5 [facility] DENOSUMAB INC INC 1 MG COLLECTIO 76473 ZACK DIXON N VENOUS 4 [facility] BLOOD INC INC VENIPUNCT URE CREATININ 35000 ZACK DIXON E OTHER 4 [facility] SOURCE INC INC DXA BONE 88728 ZACK DIXON DENSITY 4 [facility] STUDY 1/> INC INC SITES AXIAL SKEL RENAL 95410 ZACK DIXON FUNCTION 4 [facility] PANEL INC INC PROTEIN 03513 ZACK DIXON XCPT 4 [facility] REFRACTOM INC INC ETRY SERUM PLASMA/WH L BLD BLOOD 40146 ZACK DIXON COUNT 4 [facility] COMPLETE INC INC AUTO&AUTO DIFRNTL WBC SUSCEPTIB 86671 ZACK DIXON LTY STDY 4 [facility] ANTIMICRB INC INC IAL MICRO/AGA R DILUTJ URNLS DIP 07900 ZACK DIXON 4 [facility] STICK/TAB INC INC LET REAGENT AUTO MICROSCOP Y CULTURE 08665 ZACK DIXON BACTERIAL 4 [facility] INC INC QUANTTATI VE COLONY COUNT URINE CULTURE 74748 ZACK DIXON BCT 4 [facility] ISOL&PRSM INC INC PTV ID ISOLATE EA URINE 25 46398 ZACK DIXON HYDROXY 4 [facility] INCLUDES [place] [address] ZACK DIXON PARATHORM 4 [facility] ONE INC INC COMPREHEN 61148 COMBINED COMBINED SIVE 4 PHYSICIAN PHYSICIAN [place] [address] ZACK DIXON TROPONIN 4 [facility] QUANTITAT INC INC [place] BLOOD 04780 ZACK DIXON COUNT 4 [facility] COMPLETE INC INC AUTO&AUTO DIFRNTL WBC URNLS DIP 36562 ZACK ZACK 4 [facility] STICK/TAB INC INC LET REAGENT AUTO MICROSCOP Y RADIOLOGI 76087 ZACK DIXON C EXAM 4 [facility] CHEST 2 INC INC VIEWS FRONTAL&L ATERAL PRESSURIZ 36734 ZACK DIXON ED/NONPRE 4 [facility] SSURIZED INC INC INHALATIO N TREATMENT CREATINE 37088 ZACK DIXON KINASE 4 [facility] TOTAL INC INC COMPREHEN 86628 ZACK DIXON SIVE 4 [facility] METABOLIC INC INC PANEL CREATINE 66625 ZACK DIXON KINASE MB 4 [facility] FRACTION INC INC ONLY COLLECTIO 78157 ZACK Yoo VENOUS 4 [facility] BLOOD INC INC VENIPUNCT URE 25 55669 [facility] HYDROXY 4 [facility] INCLUDES INC INC FRACTIONS IF PERFORMED RENAL 28015 [facility] FUNCTION 4 [facility] PANEL INC INC BLOOD 98443 [facility] COUNT 4 [facility] COMPLETE INC INC AUTO&AUTO DIFRNTL WBC THERAPEUT 68649 [facility] IC [facility] PROPHYLAC INC INC TIC/DX INJECTION SUBQ/IM INJECTION J0897 [facility] DENOSUMAB INC INC 1 MG BASIC 02877 COMBINED COMBINED METABOLIC 4 PHYSICIAN PHYSICIAN PANEL S LA S LA CALCIUM TOTAL COMPREHEN 54492 COMBINED COMBINED SIVE 4 PHYSICIAN PHYSICIAN METABOLIC S LA S LA PANEL BASIC 26524 [facility] METABOLIC 4 [facility] PANEL INC INC CALCIUM TOTAL COLLECTIO 78801 [facility] D[facility] N VENOUS 4 [facility] BLOOD INC INC VENIPUNCT URE THERAPEUT 05208 [facility] IC 4 [facility] PROPHYLAC INC INC TIC/DX INJECTION SUBQ/IM INJECTION J0897 [facility] 4 [facility] DENOSUMAB INC INC 1 MG INJECTION 48761 [facility] 1 [place] 3 PHYSICIAN PHYSICIAN S GROUP S GROUP SHEATH/LI GAMENT APONEUROS IS ARTHROCEN 23655 [facility] TESIS 3 PHYSICIAN JAM ASPIR&/IN S GROUP J MAJOR JT/BURSA W/O US INJ J0702 [facility] BETAMETHA 3 PHYSICIAN TONI SONE S GROUP ACETATE & PHOSPHATE 3 MG ALBUMIN 16293 [facility]ON URINE 3 [facility] MICROALBU INC [place] VE 25 [address]2519 [facility] D[facility] HYDROXY 3 [facility] INCLUDES [place] [address] [facility]ON PARATHORM 3 [facility] ONE INC INC DXA BONE 42611 [facility] DENSITY 3 [facility] STUDY 1/> INC INC SITES AXIAL SKEL BLOOD 72841 [facility] COUNT 3 [facility] COMPLETE INC INC AUTO&AUTO DIFRNTL WBC URNLS DIP 11568 ZACK DIXON 3 [facility] STICK/TAB INC INC LET REAGENT AUTO MICROSCOP Y RENAL 44807 [facility] FUNCTION 3 [facility] PANEL INC INC BASIC 15687 COMBINED COMBINED METABOLIC 3 PHYSICIAN PHYSICIAN PANEL S LA S LA CALCIUM TOTAL COLLECTIO 35432 [facility] N VENOUS 3 [facility] [place] [address] [facility] D[facility] STREPTOCO 3 [facility] CCUS INC INC GROUP A RADIOLOGI 97132 LIZZ Lopez EXAM 3 MEDICAL MELIDA CHEST 2 IMAGING VIEWS ASS FRONTAL&L ATERAL CUL BACT 28995 [facility] XCPT 3 [facility] URINE INC INC BLOOD/STO OL AEROBIC ISOL IAADI 83667 [facility] INFLUENZA 3 [facility] B VIRUS INC INC IAADI 68960 [facility] D[facility] INFFLUENZ 3 [facility] A A VIRUS INC INC BASIC 14219 COMBINED COMBINED METABOLIC 3 PHYSICIAN PHYSICIAN PANEL [place] [address] COMBINED COMBINED BLOOD/URI 3 PHYSICIAN PHYSICIAN C ACID S LA S LA RHYTHM 54366 ZACK DIXON ECG 1-3 3 [facility] LEADS INC INC TRACING ONLY W/O I&[place] [address] ZACK DIXON TROPONIN 3 [facility] QUANTITAT INC INC MARIBEL BLOOD 71423 ZACK DIXON COUNT 3 [facility] COMPLETE INC INC AUTO&AUTO DIFRNTL WBC RADIOLOGI 34193 ZACK DIXON C EXAM 3 [facility] CHEST 2 INC INC VIEWS FRONTAL&L ATERAL PULMONARY 44791 ZACK DIXON 3 [facility] VENTILATI INC INC ON & PERFUSION IMAGING TECHNETIU A9540 ZACK Flanagan TC-99M 3 [facility] MAA DX INC INC STDY DOSE UP TO 10 MCI THER 32124 ZACK DIXON PROPH/DX 3 [facility] NJX IV INC INC PUSH SINGLE/1S T SBST/DRUG ECG 80250 ZACK DIXON ROUTINE 3 [facility] ECG INC INC W/LEAST 12 LDS TRCG ONLY W/O I&R COMPREHEN 22727 ZACK DIXON SIVE 3 [facility] METABOLIC INC INC PANEL CREATINE 69798 ZACK DIXON KINASE MB 3 [facility] FRACTION INC INC ONLY TECHNETIU A9567 ZACK Flanagan TC-99M 3 [facility] PENTETATE INC INC DX AEROSOL TO 75 MCI ECG 89401 EMEKA LIRA ROUTINE 3 EMERGENCY ECG SERVICES W/LEAST 12 LDS I&R ONLY CREATINE 22851 ZACK DIXON KINASE 3 [facility] TOTAL INC INC FIBRIN 48248 ZACK DIXON DGRADJ 3 [facility] PRODUCTS INC INC D-DIMER QUAL/SEMI BARB RADIOLOGI 80897 ZACK DIXON C 3 [facility] EXAMINATI INC INC ON CHEST SINGLE VIEW FRONTAL COLLECTIO 89049 ZACK DIXON N VENOUS 3 [facility] BLOOD INC INC VENIPUNCT URE RENAL 45363 ZACK DIXON FUNCTION 3 [facility] PANEL INC INC BLOOD 31005 ZACK DIXON COUNT 3 [facility] COMPLETE INC INC AUTO&AUTO DIFRNTL WBC THERAPEUT 80761 ZACK DIXON IC 3 [facility] PROPHYLAC INC INC TIC/DX INJECTION SUBQ/IM INJECTION J0897 ZACK DIXON 3 [facility] DENOSUMAB INC INC 1 MG APPL 39054 ZACK DIXON MODALITY 3 [facility] 1/> AREAS INC INC 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 G0283 ZACK DIXON 1/> AREAS 3 [facility] OTH THAN INC INC WND CARE PART TX PLAN APPLICATI 39881 ZACK DIXON ON 3 [facility] MODALITY INC INC 1/> AREAS HOT/COLD PACKS THERAPEUT 49763 ZACK DIXON IC PX 1/> 3 [facility] AREAS INC INC EACH 15 MIN EXERCISES THERAPEUT 21083 ZACK DIXON IC PX 1/> 3 [facility] AREAS INC INC EACH 15 MIN EXERCISES APPLICATI 87292 ZACK DIXON ON 3 [facility] MODALITY INC INC 1/> AREAS HOT/COLD PACKS E-STIM G0283 ZACK DIXON 1/> AREAS 3 [facility] OTH THAN INC INC WND CARE PART TX PLAN APPL 68662 ZACK DIXON MODALITY 3 [facility] 1/> AREAS INC INC IONTOPHOR ESIS EA 15 MIN APPL 35376 ZACK DIXON MODALITY 3 [facility] 1/> AREAS INC INC 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 G0283 ZACK DIXON 1/> AREAS 3 [facility] OTH THAN INC INC WND CARE PART TX PLAN APPLICATI 44907 ZACK DIXON ON 3 [facility] MODALITY INC INC 1/> AREAS HOT/COLD PACKS THERAPEUT 80469 ZACK ELLIOTTON IC PX 1/> 3 [facility] AREAS INC INC EACH 15 MIN EXERCISES THERAPEUT 70181 ZACK DIXON IC PX 1/> 3 [facility] AREAS INC INC EACH 15 MIN EXERCISES APPLICATI 78613 ZACK DIXON ON 3 [facility] MODALITY INC INC 1/> AREAS HOT/COLD PACKS E-STIM G0283 ZACK DIXON 1/> AREAS 3 [facility] OTH THAN INC INC WND CARE PART TX PLAN APPL 64369 ZACK DIXON MODALITY 3 [facility] 1/> AREAS INC INC 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 G0283 ZACK DIXON 1/> AREAS 3 [facility] OTH THAN INC INC WND CARE PART TX PLAN THERAPEUT 94844 ZACK DIXON IC PX 1/> 3 [facility] AREAS INC INC EACH 15 MIN EXERCISES THERAPEUT 15963 ZACK DIXON IC PX 1/> 3 [facility] AREAS INC INC EACH 15 MIN EXERCISES APPLICATI 97851 ZACK DIXON ON 3 [facility] MODALITY INC INC 1/> AREAS HOT/COLD PACKS E-STIM G0283 ZACK DIXON 1/> AREAS 3 [facility] OTH THAN INC INC WND CARE PART TX PLAN APPL 93351 ZACK DIXON MODALITY 3 [facility] 1/> AREAS INC INC IONTOPHOR ESIS EA 15 MIN CULTURE 28191 COMBINED COMBINED BACTERIAL 3 PHYSICIAN PHYSICIAN S LA S LA QUANTTATI VE COLONY COUNT URINE APPL 76624 ZACK DIXON MODALITY 3 [facility] 1/> AREAS INC INC 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 G0283 ZACK DIXON 1/> AREAS 3 [facility] OTH THAN INC INC WND CARE PART TX PLAN APPLICATI 48733 ZACK DIXON ON 3 [facility] MODALITY INC INC 1/> AREAS HOT/COLD PACKS THERAPEUT 92907 ZACK ZACK IC PX 1/> 3 [facility] AREAS INC INC EACH 15 MIN EXERCISES THERAPEUT 43729 ZACK ZACK IC PX 1/> 3 [facility] AREAS INC INC EACH 15 MIN EXERCISES THERAPEUT 31764 ZACK DIXON IC PX 1/> 3 [facility] AREAS INC INC EACH 15 MIN EXERCISES APPL 19517 ZACK DIXON MODALITY 3 [facility] 1/> AREAS INC INC ULTRASOUN D EA 15 MIN E-STIM G0283 ZACK DIXON 1/> AREAS 3 [facility] OTH THAN INC INC WND CARE PART TX PLAN APPL 64852 ZACK DIXON MODALITY 3 [facility] 1/> AREAS INC INC IONTOPHOR ESIS EA 15 MIN APPL 26601 ZACK DIXON MODALITY 3 [facility] 1/> AREAS INC INC 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 G0283 ZACK DIXON 1/> AREAS 3 [facility] OTH THAN INC INC WND CARE PART TX PLAN APPLICATI 85529 ZACK DIXON ON 3 [facility] MODALITY INC INC 1/> AREAS HOT/COLD PACKS THERAPEUT 54408 ZACK DIXON IC PX 1/> 3 [facility] AREAS INC INC EACH 15 MIN EXERCISES THERAPEUT 60260 ZACK DIXON IC PX 1/> 3 [facility] AREAS INC INC EACH 15 MIN EXERCISES APPLICATI 72280 ZACK DIXON ON 3 [facility] MODALITY INC INC 1/> AREAS HOT/COLD PACKS E-STIM G0283 ZACK DIXON 1/> AREAS 3 [facility] OTH THAN INC INC WND CARE PART TX PLAN APPL 53179 ZACK DIXON MODALITY 3 [facility] 1/> AREAS INC INC IONTOPHOR ESIS EA 15 MIN APPL 32430 ZACK DIXON MODALITY 3 [facility] 1/> AREAS INC INC 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 G0283 ZACK DIXON 1/> AREAS 3 [facility] OTH THAN INC INC WND CARE PART TX PLAN THERAPEUT 69073 ZACK DIXON IC PX 1/> 3 [facility] AREAS INC INC EACH 15 MIN EXERCISES APPLICATI 05830 ZACK DIXON ON 3 [facility] MODALITY INC INC 1/> AREAS HOT/COLD PACKS APPL 05748 ZACK DIXON MODALITY 3 [facility] 1/> AREAS INC INC ULTRASOUN D EA 15 MIN APPL 22285 ZACK DIXON MODALITY 3 [facility] 1/> AREAS INC INC ULTRASOUN D EA 15 MIN THERAPEUT 50586 ZACK DIXON IC PX 1/> 3 [facility] AREAS INC INC EACH 15 MIN EXERCISES E-STIM G0283 ZACK DIXON 1/> AREAS 3 [facility] OTH THAN INC INC WND CARE PART TX PLAN APPL 22235 ZACK DIXON MODALITY 3 [facility] 1/> AREAS INC INC IONTOPHOR ESIS EA 15 MIN CULTURE 05850 ZACK DIXON BACTERIAL 3 [facility] INC INC QUANTTATI VE COLONY COUNT URINE CULTURE 06878 ZACK DIXON BCT 3 [facility] ISOL&PRSM INC INC PTV ID ISOLATE EA URINE E-STIM G0283 ZACK DIXON 1/> AREAS 3 [facility] OTH THAN INC INC WND CARE PART TX PLAN RENAL 12065 ZACK DIXON FUNCTION 3 [facility] PANEL INC INC BLOOD 33480 ZACKSHANDA DIXON COUNT 3 [facility] COMPLETE INC INC AUTO&AUTO DIFRNTL WBC SUSCEPTIB 05551 ZACK DIXON LTY STDY 3 [facility] ANTIMICRB INC INC IAL MICRO/AGA R DILUTJ URNLS DIP 34034 ZACKSHANDA DIXON 3 [facility] STICK/TAB INC INC LET REAGENT AUTO MICROSCOP Y 25 50705 ZACK DIXON HYDROXY 3 [facility] INCLUDES INC [place] [address] ZACK DIXON PARATHORM 3 [facility] ONE INC INC PROTEIN 24513 ZACK DIXON ELECTROPH 3 [facility] ORETIC INC INC FRACTJ&QU ANTJ SERUM COLLECTIO 20085 ZACK DIXON N VENOUS 3 [facility] [place] [address] ZACK DIXON NEPHELOME 3 [facility] TRY EACH INC INC ANALYTE YANELY APPL 62044 ZACK ZACK MODALITY 3 [facility] 1/> AREAS INC INC ULTRASOUN D EA 15 MIN THERAPEUT 97928 ZACK ZACK IC PX 1/> 3 [facility] AREAS INC INC EACH 15 MIN EXERCISES APPL 46005 ZACK DIXON MODALITY 3 [facility] 1/> AREAS INC INC 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 61339 ZACK DIXON IC PX 1/> 3 [facility] AREAS INC INC EACH 15 MIN EXERCISES APPL 54771 ZACK DIXON MODALITY 3 [facility] 1/> AREAS INC INC IONTOPHOR ESIS EA 15 MIN APPLICATI 11122 ZACK DIXON ON 3 [facility] MODALITY INC INC 1/> AREAS HOT/COLD PACKS E-STIM G0283 ZACK DIXON 1/> AREAS 3 [facility] OTH THAN INC INC WND CARE PART TX PLAN APPLICATI 88564 ZACK DIXON ON 3 [facility] MODALITY INC INC 1/> AREAS HOT/COLD PACKS APPL 44379 ZACK DIXON MODALITY 3 [facility] 1/> AREAS INC INC ULTRASOUN D EA 15 MIN E-STIM G0283 ZACK DIXON 1/> AREAS 3 [facility] OTH THAN INC INC WND CARE PART TX PLAN APPL 06741 ZACK DIXON MODALITY 3 [facility] 1/> AREAS INC INC 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 15567 ZACK DIXON IC PX 1/> 3 [facility] AREAS INC INC EACH 15 MIN EXERCISES THERAPEUT 00216 ZACK DIXON IC PX 1/> 3 [facility] AREAS INC INC EACH 15 MIN EXERCISES APPL 78151 ZACK DIXON MODALITY 3 [facility] 1/> AREAS INC INC 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 G0283 ZACK ZACK 1/> AREAS 3 [facility] OTH THAN INC INC WND CARE PART TX PLAN APPL 71062 ZACK ZACK MODALITY 3 [facility] 1/> AREAS INC INC ULTRASOUN D EA 15 MIN APPL 09255 ZACK DIXON MODALITY 3 [facility] 1/> AREAS INC INC ULTRASOUN D EA 15 MIN E-STIM G0283 ZACK DIXON 1/> AREAS 3 [facility] OTH THAN INC INC WND CARE PART TX PLAN APPLICATI 75367 ZACK DIXON ON 3 [facility] MODALITY INC INC 1/> AREAS HOT/COLD PACKS APPL 11436 ZACK DIXON MODALITY 3 [facility] 1/> AREAS INC INC 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 24982 ZACK DIXON IC PX 1/> 3 [facility] AREAS INC INC EACH 15 MIN EXERCISES THERAPEUT 61075 ZACK ZACK IC PX 1/> 3 [facility] AREAS INC INC EACH 15 MIN EXERCISES APPL 37100 ZACK DIXON MODALITY 3 [facility] 1/> AREAS INC INC IONTOPHOR ESIS EA 15 MIN APPL 53300 ZACK DIXON MODALITY 3 [facility] 1/> AREAS INC INC ULTRASOUN D EA 15 MIN BASIC 46577 COMBINED COMBINED METABOLIC 3 PHYSICIAN PHYSICIAN PANEL S LA S LA CALCIUM TOTAL APPL 93727 ZACK DIXON MODALITY 3 [facility] 1/> AREAS INC INC ULTRASOUN D EA 15 MIN E-STIM G0283 ZACK DIXON 1/> AREAS 3 [facility] OTH THAN INC INC WND CARE PART TX PLAN APPL 49632 ZACK DIXON MODALITY 3 [facility] 1/> AREAS INC INC 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 20673 ZACK DIXON IC PX 1/> 3 [facility] AREAS INC INC EACH 15 MIN EXERCISES THERAPEUT 81726 ZACK DIXON IC PX 1/> 3 [facility] AREAS INC INC EACH 15 MIN EXERCISES APPL 47934 ZACK DIXON MODALITY 3 [facility] 1/> AREAS INC INC 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 G0283 ZACK DIXON 1/> AREAS 3 [facility] OTH THAN INC INC WND CARE PART TX PLAN APPL 07160 ZACK DIXON MODALITY 3 [facility] 1/> AREAS INC INC ULTRASOUN D EA 15 MIN APPL 03003 ZACK DIXON MODALITY 3 [facility] 1/> AREAS INC INC ULTRASOUN D EA 15 MIN APPLICATI 07460 ZACK DIXON ON 3 [facility] MODALITY INC INC 1/> AREAS HOT/COLD PACKS E-STIM G0283 ZACK DIXON 1/> AREAS 3 [facility] OTH THAN INC INC WND CARE PART TX PLAN THERAPEUT 58910 ZACK DIXON IC PX 1/> 3 [facility] AREAS INC INC EACH 15 MIN EXERCISES THERAPEUT 61817 ZACK DIXON IC PX 1/> 3 [facility] AREAS INC INC EACH 15 MIN EXERCISES E-STIM G0283 ZACK DIXON 1/> AREAS 3 [facility] OTH THAN INC INC WND CARE PART TX PLAN APPL 38256 ZACK DIXON MODALITY 3 [facility] 1/> AREAS INC INC ULTRASOUN D EA 15 MIN E-STIM G0283 ZACK DIXON 1/> AREAS 3 [facility] OTH THAN INC INC WND CARE PART TX PLAN THERAPEUT 24885 ZACK DIXON IC PX 1/> 3 [facility] AREAS INC INC EACH 15 MIN EXERCISES APPL 38460 ZACK DIXON MODALITY 3 [facility] 1/> AREAS INC INC 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 44322 ZAKC DIXON IC PX 1/> 3 [facility] AREAS INC INC EACH 15 MIN EXERCISES APPLICATI 24020 ZACK DIXON ON 3 [facility] MODALITY INC INC 1/> AREAS HOT/COLD PACKS E-STIM G0283 ZACK DIXON 1/> AREAS 3 [facility] OTH THAN INC INC WND CARE PART TX PLAN E-STIM G0283 ZACK DIXON 1/> AREAS 3 [facility] OTH THAN INC INC WND CARE PART TX PLAN APPL 10314 ZACK DIXON MODALITY 3 [facility] 1/> AREAS INC INC IONTOPHOR ESIS EA 15 MIN APPL 47139 ZACK DIXON MODALITY 3 [facility] 1/> AREAS INC INC ULTRASOUN D EA 15 MIN THERAPEUT 15896 ZACK DIXON IC PX 1/> 3 [facility] AREAS INC INC EACH 15 MIN EXERCISES THERAPEUT 75387 ZACK DIXON IC PX 1/> 3 [facility] AREAS INC INC EACH 15 MIN EXERCISES APPL 93318 ZACK DIXON MODALITY 3 [facility] 1/> AREAS INC INC IONTOPHOR ESIS EA 15 MIN APPLICATI 74501 ZACK DIXON ON 3 [facility] MODALITY INC INC 1/> AREAS HOT/COLD PACKS APPL 63738 ZACK DIXON MODALITY 3 [facility] 1/> AREAS INC INC ULTRASOUN D EA 15 MIN E-STIM G0283 ZACK DIXON 1/> AREAS 3 [facility] OTH THAN INC INC WND CARE PART TX PLAN E-STIM G0283 ZACK DIXON 1/> AREAS 3 [facility] OTH THAN INC INC WND CARE PART TX PLAN APPL 78904 ZACK DIXON MODALITY 3 [facility] 1/> AREAS INC INC ULTRASOUN D EA 15 MIN APPLICATI 90369 ZACK DIXON ON 3 [facility] MODALITY INC INC 1/> AREAS HOT/COLD PACKS APPL 90693 ZACK DIXON MODALITY 3 [facility] 1/> AREAS INC INC IONTOPHOR ESIS EA 15 MIN APPL 48160 ZACK DIXON MODALITY 3 [facility] 1/> AREAS INC INC 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 11346 ZACK DIXON IC PX 1/> 3 [facility] AREAS INC INC EACH 15 MIN EXERCISES APPLICATI 88054 ZACK DIXON ON 3 [facility] MODALITY INC INC 1/> AREAS HOT/COLD PACKS APPL 12587 ZACK DIXON MODALITY 3 [facility] 1/> AREAS INC INC ULTRASOUN D EA 15 MIN E-STIM G0283 ZACK ZACK 1/> AREAS 3 [facility] OTH THAN INC INC WND CARE PART TX PLAN E-STIM G0283 ZACKSHANDA ELLIOTTON 1/> AREAS 3 [facility] OTH THAN INC INC WND CARE PART TX PLAN APPL 95273 ZACK DIXON MODALITY 3 [facility] 1/> AREAS INC INC ULTRASOUN D EA 15 MIN APPLICATI 93761 ZACK DIXON ON 3 [facility] MODALITY INC INC 1/> AREAS HOT/COLD PACKS THERAPEUT 85220 ZACK DIXON IC PX 1/> 3 [facility] AREAS INC INC EACH 15 MIN EXERCISES APPL 82844 ZACK DIXON MODALITY 3 [facility] 1/> AREAS INC INC IONTOPHOR ESIS EA 15 MIN APPL 87472 ZACK DIXON MODALITY 3 [facility] 1/> AREAS INC INC IONTOPHOR ESIS EA 15 MIN PHYSICAL 71484 ZACK DIXON THERAPY 3 [facility] EVALUATIO INC INC N THERAPEUT 32831 ZACK DIXON IC PX 1/> 3 [facility] AREAS INC INC EACH 15 MIN EXERCISES APPLICATI 10961 ZACK DIXON ON 3 [facility] MODALITY INC INC 1/> AREAS HOT/COLD PACKS APPL 23414 ZACK DIXON MODALITY 3 [facility] 1/> AREAS INC INC ULTRASOUN D EA 15 MIN RADEX HIP 36934 [place] SHERI 3 [facility] MELIDA [facility] IMAGING L ASS COMPLETE MINIMUM 2 VIEWS BASIC 63126 COMBINED COMBINED METABOLIC 3 PHYSICIAN PHYSICIAN PANEL [place] [address] COMBINED COMBINED BLOOD/URI 3 PHYSICIAN PHYSICIAN C NELY [place] [facility] G0378 ZACK DIXON OBSERVATI 2 [facility] ON INC INC SERVICE PER HOUR GLUC BLD 00501 ZACK DIXON GLUC MNTR 2 [facility] DEV INC INC CLEARED FDA SPEC HOME USE BLOOD 89940 ZACK DIXON COUNT 2 [facility] COMPLETE INC INC AUTO&AUTO DIFRNTL WBC BASIC 54044 ZACK DIXON METABOLIC 2 [facility] PANEL INC INC CALCIUM TOTAL COLLECTIO 24803 ZACK DIXON N VENOUS 2 [facility] BLOOD INC INC VENIPUNCT URE COLLECTIO 86778 ZACK DIXON N VENOUS 2 [facility] [place] [address] ZACK DIXON TROPONIN 2 [facility] QUANTITAT INC INC MARIBEL BASIC 69439 ZACK DIXON METABOLIC 2 [facility] PANEL INC INC CALCIUM TOTAL TECHNETIU A9540 ZACK DIXON M TC-99M 2 [facility] MAA DX INC INC STDY DOSE UP TO 10 MCI GLUC BLD 83790 ZACK DIXON GLUC MNTR 2 [facility] DEV INC INC CLEARED FDA SPEC HOME USE BLOOD 62901 ZACK DIXON COUNT 2 [facility] COMPLETE INC INC AUTO&AUTO DIFRNTL WBC NONINVASI 39660 ZACK DIXON VE 2 [facility] EAR/PULSE INC INC OXIMETRY SINGLE DETER CREATINE 18883 ZACK DIXON KINASE 2 [facility] TOTAL INC INC PULMONARY 93368 [place] SHERI 2 MEDICAL MELIDA VENTILATI IMAGING ON & ASS PERFUSION IMAGING ECHO 63066 [facility] R-T 2 DINA MORA 2D CARDIOLOG W/WOM-MOD Y CLINIC E COMPL SPEC&COLR D [facility] G0378 ZACK DIXON OBSERVATI 2 [facility] ON INC INC SERVICE PER HOUR CREATINE 36525 ZACK DIXON KINASE MB 2 [facility] FRACTION INC INC ONLY TECHNETIU A9567 ZACK DIXON M TC-99M 2 [facility] PENTETATE INC INC DX AEROSOL TO 75 [facility] G0378 ZACK DIXON OBSERVATI 2 [facility] ON INC INC SERVICE PER HOUR CREATINE 86389 ZACK DIXON KINASE 2 [facility] TOTAL INC INC ECG 47675 EMEKA REID BAB ROUTINE 2 EMERGENCY ECG SERVICES W/LEAST 12 LDS I&R ONLY GLUC BLD 50089 ZACK DIXON GLUC MNTR 2 [facility] DEV INC INC CLEARED FDA SPEC HOME USE BLOOD 75644 ZACK DIXON COUNT 2 [facility] COMPLETE INC INC AUTO&AUTO DIFRNTL WBC CULTURE 58605 ZACK DIXON BACTERIAL 2 [facility] BLOOD INC INC AEROBIC W/ID ISOLATES URNLS DIP 29676 ZACK DIXON 2 [facility] STICK/TAB INC INC LET REAGENT AUTO MICROSCOP Y RADIOLOGI 37888 ZACK DIXON C EXAM 2 [facility] CHEST 2 INC INC VIEWS FRONTAL&L ATERAL THERAPEUT 25674 ZACK DIXON IC 2 [facility] PROPHYLAC INC INC TIC/DX INJECTION SUBQ/IM ECG 09201 ZACK DIXON ROUTINE 2 [facility] ECG INC INC W/LEAST 12 LDS TRCG ONLY W/O I&R FIBRIN 27375 ZACK DIXON DGRADJ 2 [facility] PRODUCTS INC INC D-DIMER QUAL/SEMI BARB BASIC 88167 ZACK DIXON METABOLIC 2 [facility] [place] [address] ZACK DIXON TROPONIN 2 [facility] QUANTITAT INC INC MARIBEL NATRIURET 70026 ZACK DIXON IC 2 [facility] PEPTIDE INC INC CREATINE 94936 ZACK DIXON KINASE MB 2 [facility] FRACTION INC INC ONLY BASIC 65428 ZACK DIXON METABOLIC 2 [facility] PANEL INC INC CALCIUM TOTAL BLOOD 37922 ZACK DIXON COUNT 2 [facility] COMPLETE INC INC AUTO&AUTO DIFRNTL WBC COLLECTIO 47640 ZACK DIXON N VENOUS 2 [facility] BLOOD INC INC VENIPUNCT URE INJECTION J0897 ZACK DIXON 2 [facility] DENOSUMAB INC INC 1 MG THERAPEUT 76708 ZACK DIXON IC 2 [facility] PROPHYLAC INC INC TIC/DX INJECTION SUBQ/IM RENAL 56249 ZACK DIXON FUNCTION 2 [facility] PANEL INC INC PROTEIN 93431 ZACK DIXON XCPT 2 [facility] REFRACTOM INC INC ETRY SERUM PLASMA/WH L BLD BLOOD 58608 ZACK DIXON COUNT 2 [facility] COMPLETE INC INC AUTO&AUTO DIFRNTL WBC URNLS DIP 46493 ZACK DIXON 2 [facility] STICK/TAB INC INC LET REAGENT AUTO MICROSCOP Y 25 48803 ZACK DIXON HYDROXY 2 [facility] INCLUDES INC [place] [address] ZACK DIXON PARATHORM 2 [facility] ONE INC INC COLLECTIO 09802 ZACK DIXON N VENOUS 2 [facility] BLOOD INC INC VENIPUNCT URE CREATININ 13709 ZACK DIXON E OTHER 2 [facility] SOURCE INC INC DXA BONE 43281 ZACK DIXON DENSITY 2 [facility] STUDY 1/> INC INC SITES AXIAL SKEL CONTINUOU E0601 REID MATHEWS S 2 HOME [...] USED EQUIPME EQUIPME W/POS ARWAY PRESS DEVICE HEADGEAR [id number] REID MATHEWS USED 2 HOME HOME W/POSITIV MEDICAL MEDICAL E AIRWAY EQUIPME EQUIPME PRESSURE DEVICE NASL A7034 REID MATHEWS INTRFCE 2 HOME HOME POS ARWAY MEDICAL MEDICAL PRSS EQUIPME EQUIPME DEVC W/WO HEAD STRAP HUMDIFIR [id number] REID MATHEWS HEATED 2 HOME HOME USED MEDICAL MEDICAL W/POS EQUIPME EQUIPME ARWAY PRESSURE DEVICE MYOCARDIA 76[address] [facility] L SPECT 2 DINA [facility] MULTIPLE CARDIOLOG STUDIES Y CLINIC CV STRS 66110 ZACK ZAPATA TST 2 [facility] XERS&/OR HOSPITAL RX CONT P ECG I&R ONLY CV STRS 19245 [facility] TST 2 PHYSICIAN XERS&/OR S GROUP RX CONT ECG W/O I&R SUSCEPTIB 71779 [facility] LTY STDY 2 [facility] ANTIMICRB INC INC IAL MICRO/AGA R DILUTJ POLYSOM 74263 ZACK DIXON 6/>YRS 2 [facility] SLEEP INC INC W/CPAP 4/> ADDL HARSHIL ATTND CULTURE 04811 [facility] BACTERIAL 2 [facility] INC INC QUANTTATI VE COLONY COUNT URINE CULTURE 26388 [facility] BCT 2 [facility] ISOL&PRSM INC INC PTV ID ISOLATE EA URINE COLLECTIO 42896 [facility] N VENOUS 2 [facility] BLOOD INC INC VENIPUNCT URE CREATININ 67021 [facility] E OTHER 2 [facility] SOURCE INC INC 25 96160 [facility] HYDROXY 2 [facility] INCLUDES [place] [address] [facility] PARATHORM 2 [facility] ONE INC INC RENAL 40713 ZACK DIXON FUNCTION 2 [facility] PANEL INC INC PROTEIN 25652 ZACK DIXON XCPT 2 [facility] REFRACTOM INC INC ETRY SERUM PLASMA/WH L BLD BLOOD 20650 ZACK ZACK COUNT 2 [facility] COMPLETE INC INC AUTO&AUTO DIFRNTL WBC URNLS DIP 10594 [facility]ON 2 [facility] STICK/TAB INC INC LET REAGENT AUTO MICROSCOP Y BLD GLU [id number] REID GLASSRELL TEST/REAG 2 HOME HOME T [facility] BLD EQUIPME EQUIPME GLU MON-50 LANCETS A4259 REID REID PER BOX 2 HOME HOME OF 100 MEDICAL MEDICAL EQUIPME EQUIPME POLYSOM 03831 ESTIVEN JEAN-BAPTISTE 6/>YRS 2 LEIGHTON LEIGHTON SLEEP 4/> ADDL HARSHIL ATTND POLYSOM 64582 ZACK ELLIOTTON 6/>YRS 2 [facility] SLEEP 4/> INC INC ADDL HARSHIL ATTND ECG 37748 EMEKA SIHN ROUTINE 2 EMERGENCY III NANCY ECG SERVICES W/LEAST 12 LDS I&R ONLY RADEX 07424 [place] [facility] SPINE 2 MEDICAL MELIDA LUMBOSACR IMAGING AL ASS MINIMUM 4 VIEWS CREATINE 83496 ZACK DIXON KINASE MB 2 [facility] [place] [address] [facility] TROPONIN 2 [facility] QUANTITAT INC INC MARIBEL BLOOD 18943 ZACK ELLIOTTON COUNT 2 [facility] COMPLETE INC INC AUTO&AUTO DIFRNTL WBC URNLS DIP 54262 [facility]ON 2 [facility] STICK/TAB INC INC LET REAGENT AUTO MICROSCOP Y RADEX 84521 [place] [facility]I SPINE 2 MEDICAL MELIDA THORACIC IMAGING 3 VIEWS ASS CREATINE 65721 [facility] KINASE 2 [facility] TOTAL INC INC 3D 81491 [facility]ACK DIX[facility] RENDERING 2 [facility] W/INTERP INC INC & POSTPROCE SS SUPERVISI ON ECG 94975 ZACK DIX[facility] ROUTINE 2 [facility] ECG INC INC W/LEAST 12 LDS TRCG ONLY W/O I&R BASIC 64623 [facility] METABOLIC 2 [facility] PANEL INC INC CALCIUM TOTAL RADIOLOGI 35245 ZACK DIX[facility] C 2 [facility] EXAMINATI INC [place] [address] ZACK DIXON HEAD/BRAI 2 [facility] N W/O INC INC CONTRAST MATERIAL IRON 35527 ZACK [facility] BINDING 2 [facility] CAPACITY INC INC 25 86442 ZACK DIXON HYDROXY 2 [facility] INCLUDES INC [place] [address] [facility]ACK DIXON FERRITIN 2 [place] [address] ZACK DIXON PARATHORM 2 [facility] [place] [address] ZACK D[facility] PHOSPHORU 2 [facility] S INC INC INORGANIC IRRIGAJ 87627 ZACK D[facility] IMPLNTD 2 [facility] VENOUS INC INC ACCESS DRUG DELIVERY SYST BASIC 85197 ZACK DIX[facility] METABOLIC 2 [facility] [place] [address] ZACK DIXON BLOOD/URI 2 [facility] C ACID INC INC CYANOCOBA 09196 [facility] SOHA 2 [facility] VITAMIN INC INC B-12 RADEX 36919 [facility] D[facility] SPINE 2 [facility] CERVICAL INC [place] 6 [place] [address] [facility] FOLIC 2 [facility] [place] [address] [facility] D[facility] IRON 2 [facility] INC INC RADIOLOGI 63450 [facility] C [facility] SKULL INC INC COMPLETE MINIMUM 4 VIEWS GLUC BLD 37411 ZACK DIXON GLUC MNTR 2 [facility] DEV INC INC CLEARED FDA SPEC HOME USE GLUC BLD 82035 ZACK DIXON GLUC MNTR 2 [facility] DEV INC INC CLEARED FDA SPEC HOME USE BLOOD 91903 ZACK DIXON COUNT 2 [facility] COMPLETE INC INC AUTO&AUTO DIFRNTL WBC NONINVASI 11094 [facility]ACK DIXON VE 2 [facility] EAR/PULSE INC INC OXIMETRY SINGLE [facility] G0378 ZACKSHANDA DIXON OBSERVATI 2 [facility] ON INC INC SERVICE PER HOUR BASIC 44284 ZACK DIXON METABOLIC 2 [facility] PANEL INC INC CALCIUM TOTAL BASIC 44520 ZACK ZACK METABOLIC 2 [facility] PANEL INC INC CALCIUM TOTAL CREATINE 28733 ZACK DIXON KINASE 2 [facility] TOTAL INC INC ECG 08360 ZACK DIXON ROUTINE 2 [facility] ECG INC INC W/LEAST 12 LDS TRCG ONLY W/O I&R TECHNETIU A9540 ZACK Flanagan TC-99M 2 [facility] MAA DX INC INC STDY DOSE UP TO 10 MCI TECHNETIU A9567 ZACK Flanagan TC-99M 2 [facility] PENTETATE INC INC DX AEROSOL TO [facility] G0378 ZACK DIXON OBSERVATI 2 [facility] ON INC INC SERVICE PER HOUR NONINVASI 39942 ZACK DIXON VE 2 [facility] EAR/PULSE INC INC OXIMETRY SINGLE DETER CREATINE 91354 ZACK DIXON KINASE MB 2 [facility] FRACTION INC INC ONLY BLOOD 25129 ZACK DIXON COUNT 2 [facility] COMPLETE INC INC AUTO&AUTO DIFRNTL WBC GLUC BLD 46528 ZACK DIXON GLUC MNTR 2 [facility] DEV INC [place] [address] ZACK DIXON TROPONIN 2 [facility] QUANTITAT INC INC MARIBEL [facility]8 [facility] CHEST 2 IMAGING VIEWS ASS FRONTAL&L ATERAL PULMONARY [address] [facility] WADE 2 MEDICAL MELIDA VENTILATI IMAGING ON & ASS PERFUSION IMAGING INITIAL 86650 [facility] 2 PHYSICIAN CARE/DAY S GROUP 50 MINUTES ECG 11237 ZACK MCLEAN ROUTINE 2 [facility] W/LEAST P 12 LDS I&R ONLY ECHO 43952 [facility] R-T 2 DINA MORA 2D CARDIOLOG W/WOM-MOD Y CLINIC E COMPL SPEC&COLR D ECG 50584 EMEKA WILCOX ROUTINE 2 EMERGENCY [facility] ECG SERVICES W/LEAST 12 LDS I&R ONLY RADIOLOGI [address] [facility] WADE John 2 MEDICAL MELIDA EXAMINATI IMAGING ON CHEST ASS SINGLE VIEW FRONTAL NATRIURET 38143 ZACK DIXON IC 2 [facility] [place] [address] ZACK DIXON TROPONIN 2 [facility] QUANTITAT INC INC MARIBEL BLOOD 25381 ZACK DIXON COUNT 2 [facility] COMPLETE INC INC AUTO&AUTO DIFRNTL WBC SUSCEPTIB 80898 ZACK DIXON LTY STDY 2 [facility] ANTIMICRB INC INC IAL MICRO/AGA R DILUTJ CULTURE 29207 ZACK DIXON BACTERIAL 2 [facility] BLOOD INC INC AEROBIC W/ID ISOLATES COMPREHEN 99540 ZACK DIXON SIVE 2 [facility] METABOLIC INC INC PANEL CREATINE 57872 ZACK DIXON KINASE MB 2 [facility] FRACTION INC INC ONLY URNLS DIP 78237 ZACK DIXON 2 [facility] STICK/TAB INC INC LET REAGENT AUTO MICROSCOP Y THERAPEUT 02162 ZACK DIXON IC 2 [facility] PROPHYLAC INC INC TIC/DX INJECTION SUBQ/IM ECG 04504 ZACK DIXON ROUTINE 2 [facility] ECG INC INC W/LEAST 12 LDS TRCG ONLY W/O I&R FIBRIN 15912 ZACK IDXON DGRADJ 2 [facility] PRODUCTS INC INC D-DIMER QUAL/SEMI BARB CREATINE 88392 ZACK DIXON KINASE 2 [facility] TOTAL INC INC CULTURE 98485 ZACK DIXON BCT 2 [facility] ISOL&PRSM INC INC PTV ID ISOLATE EA URINE CULTURE 78100 ZACK DIXON BACTERIAL 2 [facility] INC INC QUANTTATI VE COLONY COUNT URINE BLD GLU A4253 REID GLASSRELL TEST/REAG 2 HOME HOME T STRIPS MEDICAL MEDICAL HOME BLD EQUIPME EQUIPME GLU MON-50 LANCETS A4259 REID MATHEWS PER BOX 2 HOME HOME OF 100 MEDICAL MEDICAL EQUIPME EQUIPME HOME E0607 REID MATHEWS BLOOD 2 HOME HOME GLUCOSE MEDICAL MEDICAL MONITOR EQUIPME EQUIPME WALKER E0135 REID MATHEWS FOLDING 2 HOME HOME ADJUSTABL MEDICAL MEDICAL E OR EQUIPME EQUIPME FIXED HEIGHT RADIOLOGI 80720 [facility] C 2 MEDICAL MELIDA EXAMINATI IMAGING ON CHEST ASS SINGLE VIEW FRONTAL VENOUS 3893 [facility]AKC ELLIOTTON CATHETERI 2 [facility] ZATION INC INC NOT ELSEWHERE CLASSIFIE D RADIOLOGI 77614 [facility] C EXAM 2 MEDICAL MELIDA CHEST 2 IMAGING VIEWS ASS FRONTAL&[place] [address] [facility] RETROPERI 2 MEDICAL MELIDA TONEAL IMAGING REAL TIME ASS W/IMAGE COMPLETE ANTINUCLE 83047 LAB ZOEY LAB ZOEY AR 2 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 [address] COMBINED COMBINED BLOOD/URI 2 PHYSICIAN PHYSICIAN C ACID S LA S LA RHEUMATOI 72158 COMBINED COMBINED D FACTOR 2 PHYSICIAN PHYSICIAN QUALITATI S LA S LA VE SEDIMENTA 62621 COMBINED COMBINED TION RATE 2 PHYSICIAN PHYSICIAN RBC S LA S LA NON-AUTOM ATED CYANOCOBA 64559 COMBINED COMBINED SOHA 2 PHYSICIAN PHYSICIAN VITAMIN S LA S LA B-12 RADIOLOGI 59575 [facility] C 2 MEDICAL MELIDA EXAMINATI IMAGING ON KNEE 3 ASS VIEWS HANDLG&/O 62926 FAMILY STRAWZELL R CONVEY 2 CARE CRI OF SPEC ASSOCIATE FOR TR S, PSC OFFICE TO LAB BLOOD 82329 FAMILY STRAWZELL COUNT 2 CARE CRI COMPLETE ASSOCIATE AUTO&AUTO S, PSC DIFRNTL WBC RADIOLOGI 24919 [place] [facility] C EXAM 2 MEDICAL MELIDA CHEST 2 IMAGING VIEWS ASS FRONTAL&L ATERAL COMPREHEN 50980 COMBINED COMBINED SIVE 2 PHYSICIAN PHYSICIAN METABOLIC S LA S LA PANEL COLLECTIO 16180 FAMILY STRAWZELL N VENOUS 2 CARE CRI BLOOD ASSOCIATE VENIPUNCT S, PSC URE HANDLG&/O 69069 FAMILY STRAWZELL R CONVEY 2 CARE CRI OF SPEC ASSOCIATE FOR TR S, PSC OFFICE TO LAB HEMOGLOBI 02665 FAMILY STRAWZELL N 2 CARE CRI GLYCOSYLA ASSOCIATE ALEX A1C S, PSC LIPID 39088 FAMILY STRAWZELL PANEL 2 CARE CRI ASSOCIATE S, PSC COLLECTIO 25702 FAMILY STRAWZELL N VENOUS 2 CARE CRI BLOOD ASSOCIATE [place], [place] [address] COMBINED COMBINED THYROID 2 PHYSICIAN PHYSICIAN STIMULATI S LA S LA NG HORMONE TSH COMPREHEN 21597 COMBINED COMBINED SIVE 2 PHYSICIAN PHYSICIAN METABOLIC S LA S LA PANEL 25 82205 COMBINED COMBINED HYDROXY 2 PHYSICIAN PHYSICIAN INCLUDES S LA S LA FRACTIONS IF PERFORMED DUP-SCAN 14951 ZACK DIXON XTR VEINS 2 [facility] INC INC UNILATERA L/LIMITED STUDY RADIOLOGI 15288 ZACK DIXON C EXAM 2 [facility] CHEST 2 INC INC VIEWS FRONTAL&L ATERAL COLLECTIO 91236 ZACK DIXON N VENOUS 2 [facility] BLOOD INC INC VENIPUNCT URE URNLS DIP 94095 ZACK DIXON 2 [facility] STICK/TAB INC INC LET REAGENT AUTO MICROSCOP Y BLOOD 90235 ZACK DIXON COUNT 2 [facility] COMPLETE INC INC AUTO&AUTO DIFRNTL WBC HEPATIC 30698 ZACK DIXON FUNCTION 2 [facility] PANEL INC INC RENAL 12662 ZACK DIXON FUNCTION 2 [facility] PANEL INC INC DEBRIDEME 71951 PAWSAT PAWSAT NT NAIL 2 MAR MAR ANY METHOD 1-5 THERAPEUT 10383 ZACK DIXON IC 1 [facility] PROPHYLAC INC INC TIC/DX INJECTION SUBQ/IM BASIC 45052 ZACK DIXON METABOLIC 1 [facility] PANEL INC INC CALCIUM TOTAL COLLECTIO 71970 ZACK DIXON N VENOUS 1 [facility] BLOOD INC INC VENIPUNCT URE BASIC 53697 ZACK DIXON METABOLIC 1 [facility] PANEL INC INC CALCIUM TOTAL COLLECTIO 21677 ZACK DIXON N VENOUS 1 [facility] BLOOD INC INC VENIPUNCT URE THERAPEUT 80740 ZACK DIXON IC 1 [facility] PROPHYLAC INC INC TIC/DX INJECTION SUBQ/IM PROTEIN 25442 ZACK DIXON ELECTROPH 1 [facility] ORETIC INC INC FRACTJ&[place] [address] ZACK DIXON PARATHORM 1 [facility] ONE INC INC 25 34972 ZACK DIXON HYDROXY 1 [facility] INCLUDES INC INC FRACTIONS IF PERFORMED CREATININ 31975 ZACK DIXON E OTHER 1 [facility] SOURCE INC INC COLLECTIO 44638 ZACK DIXON N VENOUS 1 [facility] BLOOD INC INC VENIPUNCT URE URNLS DIP 30178 ZACK DIXON 1 [facility] STICK/TAB INC INC LET REAGENT AUTO MICROSCOP Y BLOOD 18151 ZACK DIXON COUNT 1 [facility] COMPLETE INC INC AUTO&AUTO DIFRNTL WBC PROTEIN 09389 ZACK DIXON XCPT 1 [facility] REFRACTOM INC INC ETRY SERUM PLASMA/WH L BLD RENAL 83820 ZACK DIXON FUNCTION 1 [facility] PANEL INC INC BASIC 68618 ZACK DIXON METABOLIC 1 [facility] PANEL INC INC CALCIUM TOTAL COLLECTIO 90621 ZACK DIXON N VENOUS 1 [facility] BLOOD INC INC VENIPUNCT URE INJECTION J1030 [place] SON 1 [facility] DNISOLONE PSC ACETATE 40 MG RADIOLOGI 54738 ZACK ELLIOTTON C EXAM 1 [facility] BOTH INC INC KNEES STANDING ANTEROPOS T ARTHROCEN 09861 [place] [facility] TESIS [facility]/IN CLINIC J MAJOR PSC JT/BURSA W/O US DXA BONE 85332 ZACK DIXON DENSITY 1 [facility] STUDY 1/> INC INC SITES AXIAL SKEL OPHTH 86601 ARYAN [facility]ERS [facility] 1 VISION XM&EVAL COMPRHNSV ESTAB PT 1/> [place] [address] ZACK DIXON RETROPERI 1 [facility] TONEAL INC INC REAL TIME W/IMAGE COMPLETE NON-INVAS 58401 ZACK DIXON MARIBEL 1 [facility] PHYSIOLOG INC INC IC STUDY EXTREMITY 3 [place] [address] COMBINED COMBINED PHOSPHORU 1 PHYSICIAN [place] [address] COMBINED COMBINED PARATHORM 1 PHYSICIAN PHYSICIAN ONE S LA S LA 25 93596 COMBINED COMBINED HYDROXY 1 PHYSICIAN PHYSICIAN INCLUDES S LA S LA FRACTIONS IF PERFORMED BASIC 42489 COMBINED COMBINED METABOLIC 1 PHYSICIAN PHYSICIAN PANEL S LA S LA CALCIUM TOTAL LANCETS A4259 REID MATHEWS PER BOX 1 HOME MED HOME MED OF 100 EQUIP. L EQUIP. L BLD GLU A4253 REID MATHEWS TEST/REAG 1 HOME MED HOME MED T STRIPS EQUIP. L [place]QUIP. [place] [address] ZACK DIXON ABDOMEN 1 [facility] W/[place] [address] ZACK DIXON UREA 1 [facility] NITROGEN INC INC QUANTITAT MARIBEL COLLECTIO 31761 ZACK ZACK N VENOUS 1 [facility] BLOOD INC INC VENIPUNCT URE 3D 72542 ZACK DIXON RENDERING 1 [facility] INC INC W/INTERP& POSTPROC DIFF WORK STATION CREATININ 23287 ZACK DIXON E BLOOD 1 [facility] INC INC TECHNETIU A9537 ZACK DIXON M TC-99M 1 [facility] MEBROFENI INC INC N DX UP TO 15 MCI HEPATBL 79039 ZACK DIXON DUX SYS 1 [facility] [place] [address] LIZZ BRIANUTCHER ABDOMINAL 1 MEDICAL MELIDA REAL IMAGING TIME ASS W/IMAGE LIMITED COLLECTIO 27720 COMBINED COMBINED N VENOUS 1 PHYSICIAN PHYSICIAN BLOOD S LA S LA VENIPUNCT URE COMPREHEN 44492 COMBINED COMBINED SIVE 1 PHYSICIAN PHYSICIAN METABOLIC S LA S LA PANEL COLLECTIO 71604 FAMILY MULBERRY N VENOUS 1 CARE NILO BLOOD ASSOCIATE VENIPUNCT S URE HEMOGLOBI 45411 FAMILY MULBERRY N 1 CARE NILO GLYCOSYLA ASSOCIATE ALEX A1C S BLOOD 23725 FAMILY MULBERRY COUNT 1 CARE NILO COMPLETE ASSOCIATE AUTO&[place] [address] COMBINED COMBINED THYROID 1 PHYSICIAN PHYSICIAN STIMULATI [place] [address] COMBINED COMBINED AMYLASE 1 PHYSICIAN PHYSICIAN S LA S LA COMPREHEN 20646 COMBINED COMBINED SIVE 1 PHYSICIAN PHYSIC[place] [address] LAB ZOEY LAB ZOEY LIPASE 1 [employer] RADIOLOGI 05345 ZACK DIXON C EXAM 1 [facility] CHEST 2 INC INC VIEWS FRONTAL&L ATERAL BASIC 09424 COMBINED COMBINED METABOLIC 1 PHYSICIAN PHYSICIAN PANEL S LA S LA CALCIUM TOTAL COLLECTIO 74451 FAMILY BRENDAN J N VENOUS 1 CARE BLOOD [place] [address] ZACK DIXON STREPTOCO 0 [facility] CCUS INC INC GROUP A PRESSURIZ 98195 ZACK DIXON ED/NONPRE 0 [facility] SSURIZED INC INC INHALATIO N TREATMENT RADIOLOGI 76253 ZACK DIXON C EXAM 0 [facility] CHEST 2 INC INC VIEWS FRONTAL&L ATERAL URNLS DIP 30241 ZACK DIXON 0 [facility] STICK/TAB INC INC LET REAGENT AUTO MICROSCOP Y IAADI 19488 ZACK DIXON INFFLUENZ 0 [facility] A A VIRUS INC INC IAADI 94425 ZACK DIXON INFLUENZA 0 [facility] [place] [address] COMBINED COMBINED THYROID 0 PHYSICIAN PHYSICIAN STIMULATI S LA S LA NG HORMONE TSH COMPREHEN 06757 COMBINED COMBINED SIVE 0 PHYSICIAN PHYSICIAN METABOLIC S LA S LA PANEL COLLECTIO 73618 FAMILY FAMILY N VENOUS 0 CARE CARE BLOOD ASSOCIATE ASSOCIATE VENIPUNCT S S URE FUNDUS 93142 PETERS LAN[facility] PETERS [facility] PHOTOGRAP 0 HY W/INTERPR ETATION & REPORT OPHTH 17912 LORRAINE PETERS [facility] 0 XM&EVAL COMPRHNSV ESTAB PT 1/> DIAB ONLY A5500 [facility] FIT CSTM 0 [facility] PREP&SPL SYSTEMS SYSTEMS [employer] DNSITY INSRT FOR DIAB A5513 [facility]LLNESS ONLY MX 0 LIFE LIFE DNSITY SYSTEMS [employer] CSTM MOLD CSTM EA RADIOLOGI 25301 ZACK ZACK C 0 [facility] EXAMINATI INC INC ON ANKLE 2 VIEWS WALKING L4360 [facility] 0 TECHNOLOG TECHNOLOG PNEUMATC IES INC IES INC &/ VACUUM PREFAB CUSTM FIT RADIOLOGI 88355 ZACK ELLIOTTON C 0 [facility] EXAMINATI INC INC ON ANKLE 2 VIEWS RADEX 11119 [place] [facility] FOOT 0 MEDICAL MELIDA COMPLETE IMAGING MINIMUM 3 ASS VIEWS RADIOLOGI 76485 ZACK ELLIOTTON C 0 [facility] EXAMINATI INC INC ON FOOT 2 VIEWS RADEX 18305 [place] [facility] FOOT 0 MEDICAL MELIDA COMPLETE IMAGING MINIMUM 3 ASS VIEWS RADIOLOGI 64830 [place] [facility] C 0 MEDICAL MELIDA EXAMINATI IMAGING ON PELVIS ASS 1/2 VIEWS RADEX 53996 [place] [facility] CALCANEUS 0 MEDICAL MELIDA MINIMUM IMAGING 2 VIEWS ASS RADIOLOGI 14439 [place] [facility] C 0 MEDICAL MELIDA EXAMINATI IMAGING ON TIBIA ASS & FIBULA 2 [place] [address] [facility] 0 PHYSICIAN JAM CALCANEAL S GROUP FRACTURE W/[place] [address] EMEKA WILCOX 0 EMERGENCY CHIDI CALCANEAL SERVICES FRACTURE W/O MANIPULAT ION GROUND A0425 [facility] MILEAGE 0 AMBULANCE AMBULANCE PER SERVICE SERVICE STATUTE MILE AMBULANCE A0429 [facility] SERVICE 0 AMBULANCE AMBULANCE BLS SERVICE SERVICE EMERGENCY TRANSPORT HEMOGLOBI 61189 FAMILY MULBERRY N 0 CARE NILO GLYCOSYLA ASSOCIATE ALEX Sifuentes S BLOOD 66076 FAMILY MULBERRY COUNT 0 CARE NILO COMPLETE ASSOCIATE AUTO&AUTO S DIFRNTL WBC PPSV23 64175 FAMILY FAMILY VACCINE 2 0 CARE CARE YRS OR ASSOCIATE ASSOCIATE OLDER FOR S S SUBQ/IM USE ADMINISTR G0009 FAMILY LOGANBERRY ATION OF 0 CARE NILO PNEUMOCOC ASSOCIATE JORDYN S VACCINE COLLECTIO 82244 FAMILY MULBERRY N VENOUS 0 CARE NILO BLOOD ASSOCIATE VENIPUNCT S [facility] GLUCOSE 71608 FAMILY MULBERRY POST 0 CARE NILO GLUCOSE ASSOCIATE DOSE S 25 19668 LAB ZOEY LAB ZOEY HYDROXY 0 AMERIC AMERIC INCLUDES HOLD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 IF PERFORMED CYANOCOBA 43948 COMBINED COMBINED SOHA 0 PHYSICIAN PHYSICIAN VITAMIN S LAB S LAB B-12 [place] [address] COMBINED COMBINED FERRITIN 0 PHYSICIAN PHYSICIAN S LAB S LAB LIPID 85391 COMBINED COMBINED PANEL 0 PHYSICIAN PHYSICIAN S LAB S LAB COMPREHEN 27228 COMBINED COMBINED SIVE 0 PHYSICIAN PHYSICIAN [place]AB[place] [address] COMBINED COMBINED FOLIC 0 PHYSICIAN PHYSICIAN [place] [address] COMBINED COMBINED IRON 0 PHYSICIAN PHYSICIAN S LAB S LAB COLLECTIO 86448 FAMILY MULBERRY, N VENOUS 0 CARE CLEO T BLOOD ASSOCIATE VENIPUNCT S URE BLOOD 71765 FAMILY MULBERRY, COUNT 0 CARE CLEO T COMPLETE ASSOCIATE AUTO&AUTO S DIFRNTL WBC HEMOGLOBI 53083 FAMILY MULBERRY, N 0 CARE CLEO T GLYCOSYLA ASSOCIATE ALEX A1C S BASIC 63884 COMBINED COMBINED METABOLIC 0 PHYSICIAN PHYSICIAN PANEL S LAB S LAB CALCIUM TOTAL BLOOD 68169 FAMILY MULBERRY, COUNT 0 CARE CLEO T COMPLETE ASSOCIATE AUTO&AUTO S DIFRNTL WBC COLLECTIO 84768 FAMILY MULBERRY, N VENOUS 0 CARE CLEO T BLOOD ASSOCIATE VENIPUNCT [facility] 91332 FAMILY MULBERRY, DISCHARGE 0 CARE CLEO T DAY ASSOCIATE MANAGEMEN S T > 30 MIN LANCETS A4259 REID MATHEWS PER BOX 0 HOME MED HOME MED OF 100 EQUIP. EQUIP. LLC [facility] BLD GLU A4253 REID REID TEST/REAG 0 HOME MED HOME MED T STRIPS EQUIP. EQUIP. HOME BLD LLC LLC GLU RADIOLOGI 49722 LIZZ John EPPS EXAM 0 MEDICAL XAVI Mcdonald CHEST 2 IMAGING VIEWS ASSOCIATE FRONTAL&L S ATERAL SBSQ 18559 [facility] 0 CARE CLEO T CARE/DAY ASSOCIATE 25 S MINUTES INTRO 33698 EMEKA WILCOX, NEEDLE/IN 0 EMERGENCY [facility] TRACAT SERVICES EXTREMITY [place] [address] [facility] WADE, PART VNTJ 0 MEDICAL RAYMUNDO IMG IMAGING AERSL ASSOCIATE 1/SENIOR AUTOMATION ENGINEER S PRJCJ INITIAL 24491 [facility] 0 CARE CLEO T CARE/DAY ASSOCIATE 50 S MINUTES ECG 34793 ZACK BARRETO, ROUTINE 0 [facility] W/LEAST PROF SERV 12 LDS I&R ONLY ECHO 39830 [facility] R-T 0 PHYSICIAN MINNA [place] GROUP W/WOM-MOD E COMPL SPEC&COLR D RADIOLOGI 46943 LIZZ John WADE EXAM 0 MEDICAL RAYMUNDO CHEST 2 IMAGING VIEWS ASSOCIATE FRONTAL&L S ATERAL AMB A0427 [facility] SERVICE 0 AMBULANCE AMBULANCE ALS SERVICE SERVICE EMERGENCY TRANSPORT LEVEL 1 GROUND A0425 [facility] MILEAGE 0 AMBULANCE AMBULANCE PER SERVICE SERVICE STATUTE MILE IAADIADOO [address] [place] [address] CARE CLEO T STREPTOCO ASSOCIATE CCUS S GROUP A ORTHOPANT 93780 ZACK DIXON OGRAM 0 [facility] INC INC RENAL 29224 ZACK DIXON FUNCTION 0 [facility] PANEL INC INC COLLECTIO 27267 ZACK DIXON N VENOUS 0 [facility] BLOOD INC INC VENIPUNCT URE NORMAL A4256 DIABETES DIABETES LOW AND 0 CARE CLUB CARE CLUB HIGH [facility] CALIBRATO R SOLUTION/ CHIPS BLD GLU A4253 DIABETES DIABETES TEST/REAG 0 CARE CLUB CARE CLUB T STRIPS [facility] LLC HOME BLD GLU MON-50 LANCETS A4259 DIABETES DIABETES PER BOX 0 CARE CLUB CARE CLUB OF 100 LLC LLC RENAL 74610 ZACK DIXON FUNCTION 9 [facility] PANEL INC INC COLLECTIO 92599 ZACK DIXON N VENOUS 9 [facility] BLOOD INC INC VENIPUNCT URE ELECTRIC E0215 DIABETES DIABETES HEAT PAD 9 CARE CLUB CARE CLUB [facility] LANCETS A4259 DIABETES DIABETES PER BOX 9 CARE CLUB CARE CLUB OF 100 [facility] NORMAL A4256 DIABETES DIABETES LOW AND 9 CARE CLUB CARE CLUB HIGH [facility] LLC CALIBRATO R SOLUTION/ CHIPS BLD GLU A4253 DIABETES DIABETES TEST/REAG 9 CARE CLUB CARE CLUB T STRIPS [facility] LLC HOME BLD GLU ANTISTREP 89111 ZACK DIXON TOLYSIN O 9 [facility] SCREEN INC INC URNLS DIP 63330 ZACK DIXON 9 [facility] STICK/TAB INC [place] [address] [place] [facility] RETROPERI 9 MEDICAL RAYMUNDO TONEAL IMAGING REAL TIME ASSOCIATE W/IMAGE S COMPLETE RENAL 55267 ZACK ZACK FUNCTION 9 [facility] PANEL INC INC SUSCEPTIB 31037 ZACK DIXON LTY STDY 9 [facility] ANTIMICRB INC INC IAL MICRO/AGA R DILUTJ COLLECTIO 28084 ZACKSHANDA ELLIOTTON N VENOUS 9 [facility] BLOOD INC INC VENIPUNCT URE COMPLEMEN 87980 ZACK DIXON T 9 [facility] FUNCTIONA INC [place] [address] ZACK DIXON BLOOD/URI 9 [facility] C ACID INC INC ANTINUCLE 55611 ZACK DIXON AR 9 [facility] ANTIBODIE INC INC S YUNG CULTURE 34172 ZACK DIXON BACTERIAL 9 [facility] INC INC QUANTTATI VE COLONY COUNT URINE CULTURE 55828 ZACK DIXON BCT 9 [facility] ISOL&PRSM INC INC PTV ID ISOLATE EA URINE BASIC 78029 ZACK DIXON METABOLIC 9 [facility] PANEL INC INC CALCIUM TOTAL COLLECTIO 04847 ZACK DIXON N VENOUS 9 [facility] [place] [address] [facility] D[facility] THYROID 9 [facility] STIMULATI INC INC NG HORMONE TSH COMPREHEN 34589 [facility] D[facility] SIVE 9 [facility] METABOLIC INC INC PANEL COLLECTIO 82365 ZACK DIXON N VENOUS 9 [facility] BLOOD INC INC VENIPUNCT URE BLOOD 66445 ZACK DIXON COUNT 9 [facility] COMPLETE INC INC AUTO&AUTO DIFRNTL WBC NORMAL A4256 DIABETES DIABETES LOW AND 9 [facility] CARE CLUB [facility]IGH [facility] CALIBRATO R SOLUTION/ CHIPS BLD GLU A4253 DIABETES DIABETES TEST/REAG 9 CARE CLUB CARE CLUB T [facility]IPS [facility] HOME BLD GLU MON-50 LANCETS A4259 DIABETES DIABETES PER BOX 9 CARE CLUB CARE CLUB OF [facility] REPL KIM A4235 DIABETES DIABETES LITHIUM 9 CARE CLUB CARE CLUB MED NECES [facility] LIBERTY BG MON OWN PT EA SPRING-PO A4258 DIABETES DIABETES WERED 9 CARE CLUB CARE CLUB DEVICE [facility] FOR LANCET EACH OPHTH 06213 PETERS, PETERS, MEDICAL 9 GEE A GEE A XM&EVAL COMPRHNSV ESTAB PT 1/> COLLECTIO 15576 FAMILY MULBERRY, N VENOUS 9 CARE CLEO T BLOOD ASSOCIATE VENIPUNCT S URE HEMOGLOBI 35436 COMBINED COMBINED N 9 PHYSICIAN PHYSICIAN GLYCOSYLA S LAB S LAB ALEX A1C CREATININ 65067 FAMILY MULBERRY, E OTHER 9 CARE CLEO T SOURCE ASSOCIATE S ALBUMIN 08310 FAMILY MULBERRY, URINE 9 CARE CLEO T MICROALBU ASSOCIATE MIN S SEMIQUANT ITATIVE LANCETS A4259 DIABETES DIABETES PER BOX 9 CARE CLUB CARE CLUB OF [facility] NORMAL A4256 DIABETES DIABETES LOW AND 9 CARE CLUB CARE CLUB HIGH [facility] CALIBRATO R SOLUTION/ CHIPS BLD GLU A4253 DIABETES DIABETES TEST/REAG 9 CARE CLUB CARE CLUB T [facility] HOME BLD GLU MON-50 BLD GLU A4253 DIABETES DIABETES TEST/REAG 8 CARE CLUB CARE CLUB T [facility] HOME BLD GLU MON-50 LANCETS A4259 DIABETES DIABETES PER BOX 8 CARE CLUB CARE [facility] NORMAL A4256 DIABETES DIABETES LOW AND 8 CARE CLUB CARE CLUB HIGH [facility] CALIBRATO R SOLUTION/ CHIPS MANUAL 41071 PROFESSIO CROSSFIEL THERAPY 8 NAL REHAB D, TQS 1/> ASSOC DANNITA REGIONS PSC EACH 15 MINUTES THERAPEUT 82511 PROFESSIO CROSSFIEL IC PX 1/> 8 NAL REHAB D, AREAS ASSOC DANNITA EACH 15 PSC MIN EXERCISES THERAPEUT 09962 PROFESSIO CROSSFIEL ACTVITY 8 NAL REHAB D, DIRECT PT ASSOC DANNITA CONTACT PSC EACH 15 MIN CANE E0105 REID MATHEWS QUAD/3-AK 8 HOME MED HOME MED GABINO ALL EQUIP. EQUIP. [facility]L [facility] ADJUSTBL/ FIX W/TIPS THERAPEUT 50943 PROFESSIO CROSSFIEL IC PX 1/> 8 NAL REHAB D, AREAS ASSOC DANNITA EACH 15 PSC MIN EXERCISES PHYSICAL 43341 PROFESSIO CROSSFIEL THERAPY 8 NAL REHAB D, EVALUATIO ASSOC DANNITA N PSC MANUAL 16739 PROFESSIO CROSSFIEL THERAPY 8 NAL REHAB D, TQS 1/> ASSOC DANNITA REGIONS PSC EACH 15 MINUTES RADEX HIP 74618 ZACK DIXON 8 [facility]IL[facility] INC INC L COMPLETE MINIMUM 2 VIEWS RADEX 97105 ZACK DIXON SPINE 8 [facility] LUMBOSACR INC INC AL MINIMUM 4 VIEWS Encounters Encounter Start End Date Code Location Performer Type Date EMERGENCY 83994 RUDY JOINER DEPT 7 7 PHYSICIAN VISIT S, [facility] HIGH SEVERITY& THREAT [facility] ZACK - 7 7 [facility]PAT[facility] ZACK - 6 6 [facility] OUTPATIEN INC T OFFICE 15615 CAMERON GORDILLO OUTPATIEN 6 6 MEDICAL T VISIT SERV 25 FOUNDATIO MINUTES N EMERGENCY 27057 ZACK DEPT 6 6 [facility] VISIT INC HIGH SEVERITY& THREAT [facility] ZACK - 6 6 [facility] OUTPATIEN INC T [facility] ZACK - OTHER 6 6 [facility] INC OFFICE 57225 [place] ERIBERTO GORDILLO OUTPATIEN 6 6 MEDICAL T VISIT SERV 25 FOUNDATIO MINUTES N HOSPITAL ZACK - OTHER 6 6 [facility] OFFICE 70755 [place] WILL OUTPATIEN 6 6 [facility] T VISIT INTERNAL 15 MEDI MINUTES EMERGENCY 40601 RUDY CYR [facility] DEPT 6 6 PHYSICIAN VISIT S, [facility] HIGH SEVERITY& THREAT [facility] ZACK - 6 6 [facility] T EMERGENCY 47056 ZACK 6 6 [facility] DEPARTMEN INC T VISIT HIGH/URGE NT SEVERITY OFFICE 97999 [place] VINAY OUTPATIEN 6 6 [facility] T VISIT INTERNAL 15 MED MINUTES EMERGENCY 89509 RUDY WILCOX 6 6 PHYSICIAN CHIDI DEPARTMEN [facility] T VISIT HIGH/URGE NT SEVERITY EMERGENCY 14056 ZACK 6 6 [facility] T VISIT MODERATE SEVERITY [facility]OSPITAL ZACK - 6 6 [facility] INC T [facility] INPATIENT [address] [facility] INPATIENT 6 6 [facility] ZACK - 5 5 [facility] T EMERGENCY 11972 ZACK 5 5 [facility] DEPARTMEN INC T VISIT LOW/MODER SEVERITY [facility] INPATIENT [address] [facility] INPATIENT 5 5 [facility] ZACK - 5 5 [facility] OFFICE 62494 ZACK [facility] OUTPATIEN 5 5 [facility] VISIT 5 HOSPITAL MINUTES HOSPITAL ZACK - 5 5 [facility] T EMERGENCY 51666 ZACK 5 5 [facility] DEPARTMEN INC T VISIT LIMITED/M INOR PROB OFFICE 98847 ZACK CALDERON OUTPATIEN [address] [facility] 10 P MINUTES OFFICE 74398 CAMERON GORDILLO OUTPATIEN 5 5 MEDICAL T VISIT SERV [address] [facility] ZACK - 5 5 [facility]PATIEN INC [facility] ZACK [facility] 5 5 [facility] T OFFICE 87449 [place] WILL OUTPATIEN 5 5 [facility] INTERNAL 25 MEDI MINUTES HOSPITAL ZACK [facility] 5 5 [facility] INC T OFFICE 20932 ZACK CALDERON OUTPATIEN 5 5 [facility] 15 P MINUTES HOSPITAL ZACK [facility] OTHER 5 5 [facility] OFFICE 55757 ZACK CALDERON OUTPATIEN [address] [facility] 10 P MINUTES [facility] INPATIENT 5 5 [facility] OFFICE 41261 CAMERON GORDILLO OUTPATIEN 5 5 MEDICAL T VISIT SERV 25 FOUNDATIO MINUTES [facility] INPATIENT [address] [facility] INPATIENT [address] [facility] INPATIENT 5 5 [facility] ZACK - 5 5 [facility] INPATIENT INC EMERGENCY 57969 ZACK Dawn 5 5 [facility] T VISIT P LOW/MODER SEVERITY HOSPITAL ZACK [facility] 5 5 [facility]EN [facility] ZACK [facility] 5 5 [facility] OUTPATIEN [facility] OFFICE 64595 CAMERON GORDILLO OUTPATIEN 4 4 MEDICAL T VISIT SERV [address] [facility] ZACK - 4 4 [facility] EMERGENCY 96125 ZACK 4 4 [facility] VISIT MODERATE SEVERITY EMERGENCY 41380 [facility] DEPT 4 4 ERIC IMT VISIT EMERGENCY HIGH PHYS SEVERITY& THREAT [facility] ZACK - 4 4 [facility] OUTPATIEN [facility] ZACK - OTHER 4 4 [facility] OFFICE 35933 [place] ERIBERTO GORDILLO OUTPATIEN 4 4 MEDICAL T VISIT SERV 25 FOUNDATIO MINUTES [facility] ZACK - 4 4 [facility] OUTPAT[facility]EN [facility] ZACK [facility] OTHER 4 4 [facility] ZACK - 4 4 [facility] OUTPATIEN [facility] OFFICE 08349 CAMERON GORDILLO OUTPATIMICA 3 3 MEDICAL T VISIT SERV 25 FOUNDATIO MINUTES OFFICE 58696 [facility] OUTPATIEN 3 3 PHYSICIAN JAM T VISIT S GROUP 15 MINUTES HOSPITAL ZACK - 3 3 [facility] Emergency RIP Shin (ER) 3 08:47 3 09:14 [facility] ZACK - 3 3 [facility]PATIEN [facility] EMERGENCY 87484 EMEKA SHIN 3 3 EMERGENCY III NNACY DEPARTMEN SERVICES T VISIT HIGH/URGE NT SEVERITY EMERGENCY 14019 ZACK 3 3 [facility] T VISIT LIMITED/M INOR PROB Emergency RIP Shields MD (ER) 3 07:59 3 14:30 [facility] EMERGENCY 44106 ZACK 3 3 [facility] T VISIT HIGH/URGE NT SEVERITY EMERGENCY 48700 EMEKA LIRA DEPT 3 3 EMERGENCY VISIT SERVICES HIGH SEVERITY& THREAT [facility] ZACK - 3 3 [facility]EN [facility] ZACK - 3 3 [facility]EN [facility] ZACK [facility] 3 3 [facility] OUTPATIEN [facility] OFFICE 06982 CAMERON GORDILLO OUTPATIEN 3 3 MEDICAL T VISIT SERV 25 [facility] ZACK - 3 3 [facility]PAT[facility]EN [facility] ZACK [facility] 3 3 [facility]PAT[facility]EN [facility] ZACK - 3 3 [facility]PAT[facility]EN [facility] ZACK - 3 3 [facility] OUTPATIEN [facility] ZACK [facility] 3 3 [facility]PAT[facility]EN [facility] ZACK - 2 2 [facility] EMERGENCY 66447 EMEKA CASTELLANO DEPT 2 2 EMERGENCY VISIT SERVICES HIGH SEVERITY& THREAT [facility] ZACK - 2 2 [facility]PAT[facility]EN [facility] ZACK - 2 2 [facility] OFFICE 26082 CAMERON GORDILLO OUTPATIEN 2 2 MEDICAL T [facility]ISIT SERV 25 [facility] ZACK - 2 2 [facility] OUTPATIEN [facility]ITAL ZACK [facility] 2 2 [facility] OUTPATIEN [facility] HOSPITAL ZACK - 2 2 [facility] OUTPATIEN [facility] OFFICE 41766 CAMERON CONNELL 2 2 MEDICAL T VISIT SERV 15 FOUNDATIO MINUTES [facility] ZACK - 2 2 [facility] Z[facility] 2 2 [facility] 61728 EMEKA SHIN DEPT 2 2 EMERGENCY III NANCY VISIT SERVICES HIGH SEVERITY& THREAT FUN EMERGENCY 64212 ZACK 2 2 [facility] T VISIT HIGH/URGE NT SEVERITY HOSPITAL ZACK - 2 2 [facility] 96281 ZACK 2 2 [facility] T VISIT HIGH/URGE NT SEVERITY EMERGENCY 81858 EMEKA WILCOX DEPT 2 2 EMERGENCY [facility] VISIT SERVICES HIGH SEVERITY& THREAT [facility] ZACK - 2 2 [facility] 2 2 [facility] INPATIENT [facility] OFFICE 94034 FAMILY STRAWZELL OUTPATIEN 2 2 CARE CRI T VISIT ASSOCIATE 25 S, PSC MINUTES OFFICE 25527 FAMILY STRAWZELL OUTPATIEN 2 2 CARE CRI T VISIT ASSOCIATE 15 S, PSC MINUTES EMERGENCY 12727 EMEKA SHIN 2 2 EMERGENCY III NANCY DEPARTMEN SERVICES T VISIT HIGH/URGE NT SEVERITY EMERGENCY 32163 ZACK 2 2 [facility] T VISIT LOW/MODER SEVERITY HOSPITAL ZACK - 2 2 [facility] OFFICE 63476 CAMERON GORDILLO OUTPATIEN 2 2 MEDICAL T VISIT SERV 25 FOUNDATIO [facility] ZACK - 2 2 [facility]PAT[facility]EN [facility] T OFFICE 46783 BELKIS PAWSAT OUTPATIEN 2 2 Aug T NEW 30 MINUTES HOSPITAL ZACK - 1 1 [facility]PAT[facility]EN [facility] ZACK - 1 1 [facility] OUTPATIEN INC T OFFICE 19448 [place] [facility] OUTPATIEN 1 1 MED[facility] ZACK - 1 1 [facility] OUTPATIEN INC EMERGENCY 06030 ZACK 1 1 [facility] DEPARTMEN INC T VISIT MODERATE SEVERITY HOSPITAL ZACK - 1 1 [facility] ZACK - 1 1 [facility] ZACK - 1 1 [facility] T OFFICE 83658 [facility] OUTPATIEN 1 1 [place] T NEW 45 CLINIC MINUTES [facility] ZACK - 1 1 [facility] OUTPATIEN INC T OFFICE 29155 [place] WEISada GORDILLO OUTPATIEN 1 1 MEDICAL T NEW 60 SERV MINUTES [facility] ZACK - 1 1 [facility] OUTPATIEN INC T OFFICE 38866 FAMILY MULYUE OUTPATIEN 1 1 CARE NILO T VISIT ASSOCIATE 40 S MINUTES EMERGENCY 79364 EMEKA WU 1 1 EMERGENCY JAM [facility] SERVICES T VISIT MODERATE SEVERITY HOSPITAL ZACK - 1 1 [facility] OUTPATIEN INC EMERGENCY 02178 ZACK 1 1 [facility] DEPARTMEN INC T VISIT LOW/MODER SEVERITY OFFICE 42773 FAMILY MULBERRY OUTPATIEN 1 1 CARE NILO T VISIT ASSOCIATE 25 S MINUTES OFFICE 88072 FAMILY MULBERRY OUTPATIEN 1 1 CARE NILO T VISIT ASSOCIATE 15 S MINUTES HOSPITAL ZACK - 1 1 [facility] OUTPATIEN INC T OFFICE 30452 ANKUSH LECHUGA JR OUTPATIEN 1 1 [facility] T NEW 45 MINUTES HOSPITAL ZACK - 1 1 [facility] OUTPATIEN INC T HOSPITAL ZACK - 1 1 [facility] OUTPATIEN [facility] T OFFICE 28150 FAMILY MULYUE OUTPATIEN 1 1 CARE NILO T VISIT ASSOCIATE 25 S MINUTES EMERGENCY 72902 EMEKA CASTELLANO 1 1 EMERGENCY DEPARTMEN SERVICES T VISIT HIGH/URGE NT SEVERITY EMERGENCY 45832 ZACK 1 1 [facility] DEPARTMEN INC T VISIT LOW/MODER SEVERITY HOSPITAL ZACK - 1 1 [facility] OUTPATIEN [facility] T OFFICE 40547 FAMILY BRENDAN J OUTPATIEN 1 1 CARE T VISIT ASSOCIATE 15 S MINUTES HOSPITAL ZACK - 0 0 [facility] OUTPATIEN INC T EMERGENCY 98118 ZACK 0 0 [facility] DEPARTMEN INC T VISIT LOW/MODER SEVERITY EMERGENCY 65880 EMEKA WILCOX 0 0 EMERGENCY [facility] DEPARTMEN SERVICES T VISIT HIGH/URGE NT SEVERITY OFFICE 40136 FAMILY BRENDAN J OUTPATIEN 0 0 CARE T VISIT ASSOCIATE 15 S MINUTES OFFICE 19257 FAMILY BRENDAN J OUTPATIEN 0 0 CARE T VISIT ASSOCIATE 15 S MINUTES HOSPITAL ZACK - 0 0 [facility] INC T OFFICE 73405 FAMILY MULBERRY OUTPATIEN 0 0 CARE NILO T VISIT ASSOCIATE 25 S MINUTES HOSPITAL ZACK - 0 0 [facility] INC T HOSPITAL ZACK - 0 0 [facility] INC T OFFICE 74681 [facility] OUTPATI[facility] 0 0 PHYSICIAN JAM T NEW 45 S GROUP MINUTES EMERGENCY 45090 ZACK 0 0 [facility] DEPARTMEN INC T VISIT MODERATE SEVERITY EMERGENCY 10957 EMEKA WILCOX 0 0 EMERGENCY [facility]ISIT HIGH/URGE NT SEVERITY [facility]OSPITAL ZACK - 0 0 [facility] OUTPATIEN INC T OFFICE 50237 FAMILY MULBERRY OUTPATIEN 0 0 CARE NILO T VISIT ASSOCIATE 25 S MINUTES OFFICE 81647 FAMILY MULBERRY, OUTPATIEN 0 0 CARE CLEO T T VISIT ASSOCIATE 15 S MINUTES OFFICE 41991 FAMILY MULBERRY, OUTPATIEN 0 0 CARE CLEO T T VISIT ASSOCIATE 25 S MINUTES OFFICE 25456 FAMILY MULBERRY, OUTPATIEN 0 0 CARE CLEO T T VISIT ASSOCIATE 15 S MINUTES OFFICE 19232 FAMILY MULBERRY, OUTPATIEN 0 0 CARE CLEO T T VISIT ASSOCIATE 25 S MINUTES EMERGENCY 35732 EMEKA WILCOX, DEPT 0 0 EMERGENCY [facility] VISIT SERVICES HIGH SEVERITY& ASSOCIATE THREAT S [facility] ZACK - 0 0 [facility] INPATIENT INC OFFICE 10552 FAMILY MULBERRY, OUTPATIEN 0 0 CARE CLEO T T VISIT ASSOCIATE 15 S MINUTES EMERGENCY 94675 ZACK 0 0 [facility] DEPARTMEN INC T VISIT LOW/MODER SEVERITY HOSPITAL ZACK - 0 0 [facility] OUTPATIEN INC T [facility]OSPITAL ZACK - 0 0 [facility] OUT[facility]IEN INC T OFFICE 36927 MEANS BUTROS, OUTPATIEN 9 9 ADULT REVANESAA T VISIT PRIMARY 15 CARE [facility] ZACK - 9 9 [facility] OUTPATIEN INC T OFFICE 16845 MEANS BUTROS, OUTPATIEN 9 9 ADULT REVANESAA T VISIT PRIMARY 25 CARE [facility] ZACK - 9 9 [facility] OUTPATIEN INC T OFFICE 48797 MEANS BUTROS, CONSULTAT 9 9 ADULT REVANESAA ION PRIMARY [facility] PATIENT CENTER 80 MIN [facility] ZACK - 9 9 [facility] OUTPATIEN INC T OFFICE 20390 FAMILY JADA OUTPATIEN 9 9 CARE CLEO T T VISIT ASSOCIATE 15 S MINUTES [facility] ZACK - 9 9 [facility] OUTPATIEN INC T OFFICE 47476 FAMILY LOGANBERRY, OUTPATIEN 9 9 CARE CLEO T T VISIT ASSOCIATE 25 S MINUTES OFFICE 25684 FAMILY JADA OUTPATIEN 9 9 CARE CLEO T T VISIT ASSOCIATE 25 S MINUTES OFFICE 95116 FAMILY TERRENCE OUTPATIEN 8 8 CARE R PADMINI T VISIT ASSOCIATE 25 S MINUTES [facility] ZACK - 8 8 [facility] OUTPATIEN INC T OFFICE 99548 Sameer MARCOS OUTPATIEN 8 8 CARE G T VISIT ASSOCIATE 15 S MINUTES HOSPITAL ZACK - 8 8 [facility] OUTPATIEN INC T EMERGENCY 04256 ZACK LINN, 8 8 [facility] T VISIT PROF SERV LOW/MODER SEVERITY EMERGENCY 57143 ZACK 8 8 [facility] T VISIT LIMITED/M INOR PROB [facility] ZACK - 8 8 [facility] OUTPATIEN INC T
--- OUTSIDE RECORDS SUMMARY | 2016-10-20 17:31 | External Medical Summary Rpt ---
Author Author , Organization [employer] Address Unknown Phone Unavailable Care Team Providers Care Extruder Tender Name Role Phone CALDERON VALENTINE, CALDERON Unavailable [...] TRACY RODRIGUEZ ALL, RODRIGUEZ ALL Unavailable Unavailable [facility] Unavailable Unavailable SERVICE, [facility] Unavailable Unavailable SERVICE, [facility] BUTROS, REZKALLA, Unavailable Unavailable BUTROS, REZKALLA [facility]ULAR Unavailable Unavailable CONSULTANTS O, CARDIOVASCULAR CONSULTANTS O [facility] Unavailable Unavailable CAMPUS, [facility] Unavailable [facility]available CAMPUS, [facility] Unavailable Unavailable [place], [facility] [...] S MARISOL ANDREZ, Unavailable Unavailable MARISOL ANDREZ [facility] Unavailable Unavailable INC, [facility] Unavailable Unavailable Hospital, [facility] Unavailable Unavailable HOSPITAL P, [facility] PETERS LANNY, PETERS LANNY Unavailable Unavailable PETERS LANNY, PETERS LANNY Unavailable Unavailable PETERS, GEE A, Unavailable Unavailable PETERS, GEE A [facility], Unavailable Unavailable [facility] JOINER, JOINER Unavailable Unavailable KLARISSA IMT, KLARISSA Unavailable Unavailable IMT Scarlet Patterson ACO COORDINATOR, Unavailable Unavailable Scarlet Patterson ACO COORDINATOR [facility] Unavailable Unavailable [facility], [place] [...] MED [facility] Unavailable Unavailable [facility], [facility] Unavailable Unavailable SERVICES, [facility] MCKEMIE JR NANCY, Unavailable Unavailable MCKEMIE JR NANCY XAVI EPPS P, Unavailable Unavailable XAVI EPPS P MULBERRY NILO, Unavailable Unavailable MULBERRY NILO MULBERRY, CLEO T, Unavailable Unavailable MULBERRY, CLEO T CROWELL SON, CROWELL SON Unavailable Unavailable [facility] Unavailable Unavailable [facility], [facility] [place] OCAMPO, [...] EQUIPME, [facility] Unavailable [facility]available EMERGENCY PHYS[facility]ERGENC[facility] PHYS [facility] Unavailable Unavailable CLINIC, [facility] STRAWZELL CRI, Unavailable Unavailable STRAWZELL CRI [facility], Unavailable Unavailable [facility], Unavailable Unavailable [facility] WEI RAND, WEI RAND Unavailable Unavailable WEHRMAN III NANCY, Unavailable Unavailable WEHRMAN III NANCY [facility] Unavailable Unavailable LLC, [facility] ELSA LIRA, ELSA LIRA [...] 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 I44.1 Atrioventri [...] Shock, 09-30-2016 unspecified E109 TYPE 1 09-14-2016 [facility] DIABETES PHYSICIANS MELLITUS GROUP WITHOUT COMPLICATIO NS I213 ST 09-14-2016 [facility] ELEVATION PHYSICIANS MYOCARDIAL GROUP INFARCTION UNS SITE I739 PERIPHERAL 09-14-2016 [facility] VASCULAR PHYSICIANS DISEASE GROUP UNSPECIFIED N183 CHRONIC 09-14-2016 [facility] KIDNEY PHYSICIANS DISEASE GROUP STAGE 3 MODERATE E1142 TYPE 2 09-13-2016 [facility] P W/DIAB POLYNEUROPA THY I119 HYPERTENSIV 09-13-2016 [facility] E HEART PHYSICIANS, DISEASE PLLC WITHOUT HEART FAILURE I129 HYPERTENSIV 09-13-2016 [facility] E CKD [facility] W/STAGE 1-4 INC CKD OR UNS CKD O91060 ASHD [place] 09-13-2016 [facility] COR ART [facility] W/UNSTABLE INC ANGINA PECTORIS I5043 ACUTE ON 09-13-2016 [facility] P SYSTOLIC & DIASTOLIC CHF I773 ARTERIAL 09-13-2016 [facility] FIBROMUSCUL [facility] AR INC DYSPLASIA R0602 SHORTNESS 09-13-2016 [facility] OF BREATH PHYSICIANS GROUP R0689 OTHER 09-13-2016 [facility] ABNORMALITI AMBULANCE ES OF SERVICE BREATHING Z794 CUSTODIAL 09-13-2016 [facility] CURRENT USE [facility] OF INSULIN INC E039 HYPOTHYROID 06-09-2016 [facility] ISM [facility] UNSPECIFIED INC E118 TYPE 2 06-09-2016 [facility] DIABETES [facility] MELLITUS INC W/UNS COMPLICATIO NS E119 TYPE 2 03-21-2016 [facility] DIABETES SERV MELLITUS FOUNDATION WITHOUT COMPLICATIO NS M810 AGE-RELATED 03-21-2016 [facility] SERV OSTEOPOROSI FOUNDATION S W/O CURRNT PATH FX N184 CHRONIC 03-21-2016 [facility] KIDNEY SERV DISEASE FOUNDATION STAGE 4 SEVERE N250 RENAL 03-21-2016 [facility] OSTEODYSTRO SERV PHY FOUNDATION N390 URINARY 03-18-2016 [facility] TRACT PHYSICIANS INFECTION LA SITE NOT SPECIFIED J98516 TYPE 2 02-28-2016 [facility] P W/HYPOGLYCE VICTORIANO W/O COMA E162 HYPOGLYCEMI 02-28-2016 [facility] Meza PHYSICIANS, UNSPECIFIED PLLC E876 HYPOKALEMIA 02-28-2016 [facility] INC I10 ESSENTIAL 02-28-2016 [facility] N I5032 CHRONIC 02-28-2016 [facility] P HEART FAILURE R410 DISORIENTAT 02-28-2016 [facility] ION [facility]BULANCE UNSPECIFIED SERVICE Z591 INADEQUATE 02-28-2016 [facility] MEM [facility]OS[facility] INC L92198 OTHER LONG 02-28-2016 [facility] TERM [facility] CURRENT INC DRUG THERAPY G4733 OBSTRUCTIVE 02-15-2016 [facility] SLEEP HOME APNEA ADULT MEDICAL PEDIATRIC EQUIPME [id number] MX FX 02-15-2016 [facility] PELVIS STBL HOME [...] [facility] RESPONSIVEN SERVICE ESS N51504 CELLULITIS 08-16-2015 [facility] [place] INTERNAL MED T78646 CELLULITIS 08-16-2015 [facility] [place]OWER [place] INTERNAL MED E1021 TYPE 1 08-10-2015 [facility] DIABETES [facility] MELLITUS INC W/DIABETIC NEPHROPATHY E1065 TYPE 1 08-10-2015 [facility] DIABETES [facility] MELLITUS INC WITH HYPERGLYCEM IA E138 OTH SPEC 08-10-2015 [facility] DIABETES PHYSICIANS, MELLITUS PLLC W/UNS COMPLICATIO NS V15585 CELLULITIS 08-10-2015 [facility] OF PHYSICIANS, UNSPECIFIED PLLC PART OF LIMB R739 HYPERGLYCEM 08-10-2015 [facility] [place] [facility]ANCE UNSPECIFIED SERVICE L853 XEROSIS 08-09-2015 [facility] C[place]IS [place] INTERNAL MED E6601 MORBID 08-05-2015 [facility] SEVERE [place] OBESITY DUE INTERNAL TO EXCESS MEDI CALORIES I270 PRIMARY 07-20-2015 [facility] PULMONARY [facility] HYPERTENSIO CAMPUS N I5030 UNSPECIFIED 07-20-2015 [facility] CONGESTIVE CAMPUS HEART FAILURE R0600 DYSPNEA 07-20-2015 [facility] M542 CERVICALGIA 07-12-2015 [facility] MOBILEX M546 PAIN [...] EDEMA LAR CONSULTANTS O I348 OTHER 05-05-2015 [place] [facility]ICAL NONRHEUMATI SERV C MITRAL FOUNDATION VALVE DISORDERS I361 NONRHEUMATI 05-05-2015 [facility] C TRICUSPID SERV VALVE FOUNDATION INSUFFICIEN CY I371 NONRHEUMATI 05-05-2015 [place] [facility] C PULMONARY SERV VALVE FOUNDATION INSUFFICIEN [...] HOSP 40.0-44.9 INC ADULT N3020 OTHER 04-28-2015 [facility] WITHOUT HEMATURIA J209 ACUTE 03-31-2015 [facility] BRONCHITIS [facility] UNSPECIFIED INC W11910 PERSONAL 03-31-2015 [facility] HISTORY OF [facility] NICOTINE INC DEPENDENCE A499 BACTERIAL 03-23-2015 [place] [facility] INFECTION SERV UNSPECIFIED FOUNDATION R279 UNSPECIFIED 03-19-2015 [facility] LACK OF MEM HOS[facility] COORDINATIO INC N Z5189 ENCOUNTER 03-19-2015 [facility] FOR OTHER [facility] SPECIFIED INC AFTERCARE 85693 DIAB W/O 03-17-2015 [facility] COMP TYPE I HOME [JUV] NOT MEDICAL STATED EQUIPME UNCNTRL 02417 OBSTRUCTIVE 03-17-2015 [facility] SLEEP [facility] APNEA MEDICAL EQUIPME 16468 MULTIPLE 03-17-2015 [facility] CLOSED HOME PELVIC FX MEDICAL DISRUPT EQUIPME PELVIC [facility] [place] [facility] [facility] [place] 2449 UNSPECIFIED 03-10-2015 [facility] HYPOTHYROID INC ISM 57218 DIAB W/O 03-10-2015 [facility] COMP TYPE [facility] II/UNS NOT INC STATED UNCNTRL 5854 CHRONIC 03-10-2015 [facility] KIDNEY [facility] DISEASE INC STAGE IV (SEVERE) 5990 URINARY 03-10-2015 [facility] TRACT [facility] INFECTION INC SITE NOT SPECIFIED 34628 UNSPECIFIED 03-10-2015 [facility] OSTEOPOROSI INC S 4019 UNSPECIFIED 03-02-2015 [facility] [place] HYPERTENSIO INTERNAL N MEDI 4541 VARICOSE 03-02-2015 [facility] VE[place]OWER [place] INTERNAL EXTREMITIES MEDI W/INFLAMMAT ION 33829 UNSPECIFIED 03-02-2015 [facility] CONSTIPATIO INTERNAL N MEDI 5939 UNSPECIFIED 03-02-2015 [facility] DISORDER VALLEY OF KIDNEY INTERNAL AND URETER MEDI 7823 EDEMA 03-02-2015 [facility] INTERNAL MEDI 53012 UNSPECIFIED 03-02-2015 [facility] RETENTION [place] OF URINE INTERNAL MEDI 75447 UNSPECIFIED 02-24-2015 [facility] ARTHROPATHY [facility] P MULTIPLE SITES 7813 LACK OF 02-24-2015 [facility] P V571 OTHER 02-24-2015 [facility] PHYSICAL [facility] THERAPY INC 5952 OTHER 02-03-2015 [facility] P 2761 HYPOSMOLALI 01-17-2015 [facility] TY AND/OR HEALTH HYPONATREMI CAMPUS A 62477 LEUKOCYTOSI 01-17-2015 [facility] S HEALTH UNSPECIFIED CAMPUS 5849 ACUTE 01-17-2015 [facility] KIDNEY HEALTH FAILURE CAMPUS UNSPECIFIED 7197 DIFFICULTY 01-17-2015 [facility] IN WALKING HEALTH CAMPUS 17621 MUSCLE 01-17-2015 [facility] WEAKNESS HEALTH (GENERALIZE CAMPUS D) 7993 UNSPECIFIED 01-17-2015 [facility] DEBILITY HEALTH CAMPUS 9953 ALLERGY 01-17-2015 [facility] UNSPECIFIED HEALTH NOT CAMPUS ELSEWHERE CLASSIFIED 65457 HTN CKD UNS 12-25-2014 [place] [facility] W/CKD SERV STAGE I FOUNDATION THRU STAGE IV/UNS 515 POSTINFLAMM 12-16-2014 [facility] ATORY [facility] PULMONARY FIBROSIS V5881 FITTING AND 12-16-2014 [facility] ADJUSTMENT [facility]BILEX OF VASCULAR CATHETER 4280 CONGESTIVE 12-09-2014 [facility] HEART MOBI[facility] FAILURE UNSPECIFIED 4293 CARDIOMEGAL 12-09-2014 [facility] Y [facility]BILEX 1101 DERMATOPHYT 12-04-2014 [facility] OSIS OF E NAIL 64883 DIAB 12-04-2014 [facility] W/PERIPH E CIRC D/O TYPE II/UNS NOT UNCNTRL 4439 UNSPECIFIED 12-04-2014 [facility] PERIPHERAL E VASCULAR DISEASE 9172 FOOT&TOE 12-04-2014 [facility] BLISTER E WITHOUT MENTION OF INFECTION 9243 CONTUSION 12-04-2014 [facility] OF TOE E 70045 ABDOMINAL 11-03-2014 [place] PAIN RIGHT MEDICAL UPPER IMAGING ASS QUADRANT 5533 DIAPHRAGMAT 11-01-2014 [place] KODY W/O MEDICAL MENTION IMAGING ASS OBSTRUCTION /GANGREN 7905 OTHER 11-01-2014 [place] NONSPECIFIC MEDICAL ABNORMAL IMAGING ASS SERUM ENZYME LEVELS 7862 COUGH 10-30-2014 [place] [facility] V5869 LONG-TERM 10-30-2014 [facility] (CURRENT) [facility] USE OF INC OTHER MEDICATIONS 85605 UNSPECIFIED 10-28-2014 [place] OTALGIA MEDICAL IMAGING ASS 7224 DEGENERATIO 10-28-2014 [place] N OF MEDICAL CERVICAL IMAGING ASS INTERVERTEB RAL DISC 7231 CERVICALGIA 10-28-2014 [place] [facility] 45331 SENILE 06-23-2014 [facility] OSTEOPOROSI [facility] S INC 7129 UNSPECIFIED 05-20-2014 [facility] VITAMIN D [facility] DEFICIENCY INC 2724 OTHER AND 05-20-2014 [facility] UNSPECIFIED [facility]OS[facility] INC HYPERLIPIDE VICTORIANO 56300 OTHER 05-20-2014 [facility] OSTEOPOROSI [facility] S INC 50545 HYPERTENSIV 02-20-2014 [facility] E HEART [facility] DISEASE INC UNSPEC W/HEART FAIL 4660 ACUTE 02-20-2014 [facility] BRONCHITIS [facility] INC 490 BRONCHITIS 02-20-2014 [facility] NOT N EMERGENCY SPECIFIED PHYS ACUTE OR CHRONIC 87061 SWELLING OF 02-20-2014 [facility] 5853 CHRONIC 11-18-2013 [place] [facility] KIDNEY SERV DISEASE FOUNDATIO STAGE III (MODERATE) 586 UNSPECIFIED 10-29-2013 [facility] RENAL PHYSICIANS FAILURE [place] 7262 OTHER 05-30-2013 [facility] AFFECTIONS PHYSICIANS OF SHOULDER GROUP REGION NEC 66659 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-2013 [facility] 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 02884 DISORDER OF 05-21-2013 [place] BONE AND MEDICAL CARTILAGE IMAGING ASS UNSPECIFIED V1559 PERSONAL 05-21-2013 [place] HISTORY OF MEDICAL OTHER IMAGING ASS INJURY V4981 ASYMPTOMATI 05-21-2013 [place] C MEDICAL POSTMENOPAU IMAGING ASS KEELY STATUS 19389 UNSPECIFIED 04-29-2013 [facility] VIRAL EMERGENCY INFECTION SERVICES IN CCE & UNS SITE 4659 ACUTE URIS 04-29-2013 [facility] OF EMERGENCY UNSPECIFIED SERVICES SITE 32105 CRAMP OF 04-05-2013 [facility] PHYSICIANS [place] 7241 PAIN IN 01-16-2013 [facility] SPINE [facility] P 71956 ORTHOPNEA 01-16-2013 [facility] P 19608 OTHER 01-16-2013 [facility] DYSPNEA AND EMERGENCY SERVICES RESPIRATORY ABNORMALITI ES 7265 ENTHESOPATH 10-17-2012 [facility] Y OF HIP [facility] REGION INC 99289 PAIN IN 08-22-2012 [place] JOINT MEDICAL PELVIC IMAGING ASS REGION AND THIGH 2749 GOUT, 07-16-2012 [place] [address] SHORTNESS 05-28-2012 [facility] 4240 MITRAL 05-27-2012 [facility] VALVE [facility] DISORDERS INC 38582 OSTEOARTHRO 05-27-2012 [facility] S UNSPEC [facility] WHETHER INC GEN/LOC UNSPEC SITE 13851 CHEST PAIN 05-27-2012 [place] UNSPECIFIED MEDICAL IMAGING ASS 09159 OTHER CHEST 05-27-2012 [facility] P 5859 CHRONIC 12-01-2011 [facility] KIDNEY [facility] DISEASE INC UNSPECIFIED 92273 HYPERSOMNIA 11-15-2011 [facility] WITH SLEEP [place] APNEA UNSPECIFIED 93564 ANEMIA OF 10-30-2011 [facility] P DISEASE 2859 UNSPECIFIED 10-30-2011 [facility] ANEMIA EMERGENCY SERVICES 05270 DEGEN 10-30-2011 [place] THORACIC/TH MEDICAL ORACOLUMBAR IMAGING ASS INTERVERTEB RAL DISC 42218 DEGEN 10-30-2011 [place] LUMBAR/LUMB MEDICAL OSACRAL IMAGING ASS INTERVERTEB RAL DISC 7242 LUMBAGO 10-30-2011 [facility] P 7245 UNSPECIFIED 10-30-2011 [facility] BACKACHE EMERGENCY SERVICES 7840 HEADACHE 10-30-2011 [facility] HOSP INC 34818 OTHER 10-20-2011 [place] DISEASES OF MEDICAL LUNG NOT IMAGING ASS ELSEWHERE CLASSIFIED 5199 UNSPECIFIED 10-20-2011 [place] DISEASE OF MEDICAL IMAGING ASS RESPIRATORY SYSTEM V5867 LONG-TERM 10-19-2011 [facility] USE OF [facility] P 3559 MONONEURITI 10-14-2011 [facility] S OF HOME UNSPECIFIED MEDICAL SITE EQUIPME 61142 OTHER 10-14-2011 [facility] MALAISE AND HOME FATIGUE MEDICAL EQUIPME 5180 PULMONARY 10-05-2011 [place] COLLAPSE MEDICAL IMAGING ASS 08393 OTHER 09-30-2011 [facility] STAPHYLOCOC [facility] CUS INC INFECTION IN CCE & UNS SITE 2768 HYPOPOTASSE 09-30-2011 [facility] VICTORIAN[facility] [employer] 2888 OTHER 09-30-2011 [facility] SPECIFIED DISEASE OF ASSOCIATES, WHITE BLOOD PSC CELLS 4599 UNSPECIFIED 09-30-2011 [facility] CIRCULATORY INC SYSTEM DISORDER 486 PNEUMONIA, 09-30-2011 [facility] ORGANISM [facility] UNSPECIFIED INC 25745 OTHER 09-30-2011 [place] SPECIFIED MEDICAL DISORDERS IMAGING ASS OF BLADDER 56352 OSTEOARTHRO 09-30-2011 [place] SIS UNSPEC MEDICAL WHETHER IMAGING ASS GEN/LOC LOWER LEG 63219 EFFUSION OF 09-30-2011 [place] LOWER LEG MEDICAL [...] [facility] FOR LIPOID DISORDERS ASSOCIATES, PSC 04181 DIAB 06-24-2011 [facility] W/NEURO MANIFESTS TYPE II/UNS NOT UNCNTRL 7038 OTHER 06-24-2011 [facility] MAR SPECIFIED DISEASE OF NAIL 39287 SECONDARY 03-29-2011 [facility] OSTEOARTHRO CLINIC PSC SIS LOWER LEG 90682 PAIN IN 03-29-2011 [facility] JOINT, [facility] LOWER LEG INC 67328 BACKGROUND 03-25-2011 [facility] DIABETIC VISION RETINOPATHY 97144 NUCLEAR 03-25-2011 [facility] SCLEROSIS VISION 7820 DISTURBANCE 02-09-2011 [facility] OF SKIN [facility] SENSATION INC 2767 HYPERPOTASS 02-07-2011 [facility] EMIA ASSOCIATES 460 ACUTE 02-07-2011 [facility] NASOPHARYNG ASSOCIATES ITIS 6929 CONTACT 01-27-2011 [facility] DERMATITIS& EMERGENCY OTHER SERVICES ECZEMA DUE UNSPEC CAUSE 17173 PAIN IN 12-09-2010 [facility] JOINT, ASSOCIATES MULTIPLE SITES 27506 UNSPEC 10-28-2010 ALLRAN JR VENTRAL ELAINE KODY W/O MENTION OBST/GANGRE N 80798 ABDOMINAL 09-21-2010 [facility] PAIN, MEM [facility] GENERALIZED INC 7831 ABNORMAL 08-24-2010 [facility] WEIGHT GAIN PHYSICIANS [place] 5110 PLEURISY 07-18-2010 [facility] WITHOUT EMERGENCY MENTION SERVICES EFFUS/[place] [address] PAINFUL 07-18-2010 [place] RESPIRATION MEDICAL IMAGING ASS 2721 PURE 07-08-2010 [facility] HYPERGLYCER PHYSICIANS IDEMIA [place] 7944 NONSPECIFIC 07-07-2010 [facility] ABNORM ASSOCIATES RESULTS KIDNEY FUNCTION STUDY 42907 ASTHMA, 06-16-2010 [facility] UNSPECIFIED EMERGENCY , SERVICES UNSPECIFIED STATUS 64539 DIAB 05-21-2010 [facility] LANNY W/OPHTH MANIFESTS TYPE II/UNS NOT UNCNTRL 8250 CLOSED 04-28-2010 [facility] FRACTURE OF [facility] HOSP CALCANEUS INC V5416 AFTERCARE 04-28-2010 [place] HEALING MEDICAL TRAUMATIC IMAGING ASS FRACTURE LOWER LEG 8248 UNSPECIFIED 03-31-2010 [place] CLOSED MEDICAL FRACTURE OF IMAGING ASS ANKLE 66774 OTHER ANKLE 03-31-2010 [facility] [employer] STR[facility] S INC 9596 INJURY 02-17-2010 [place] OTHER AND MEDICAL UNSPECIFIED IMAGING ASS HIP AND THIGH 9597 INJURY 02-17-2010 [place] OTHER&UNSPE MEDICAL CIFIED KNEE IMAGING ASS LEG ANKLE&FOOT 920 CONTUSION 02-16-2010 [facility] OF FACE EMERGENCY SCALP AND SERVICES NECK EXCEPT EYE 50292 CONTUSION 02-16-2010 [facility] OF HIP [facility] INC E8859 FALL FROM 02-16-2010 [facility] OTHER EMERGENCY SLIPPING SERVICES TRIPPING OR STUMBLING 90122 INSOMNIA 02-04-2010 [facility] UNSPECIFIED ASSOCIATES V0382 NEED PROPH 02-04-2010 [facility] VACCINATION ASSOCIATES AGAINST STREP PNEUMONE 22424 URINARY 11-04-2009 [facility] FREQUENCY ASSOCIATES 2811 OTHER 08-24-2009 [facility] VITAMIN B12 ASSOCIATES DEFICIENCY ANEMIA 514 PULMONARY 08-24-2009 [facility] CONGESTION ASSOCIATES AND HYPOSTASIS E8490 PLACE OF 07-10-2009 [facility], MEDICAL HOME IMAGING ASSOCIATES 68360 GEN 04-15-2009 [facility] OSTEOARTHRO CARE CLUB [facility] INVOLVING MULTIPLE SITES 7919 OTHER 03-31-2009 [facility] NONSPECIFIC [facility] FINDING INC EXAMINATION OF URINE 06892 NEPHRITIS&N 03-24-2009 [facility] EPHROPATHY PRIMARY W/OTH CARE CENTER PATHOLOG KIDNEY LES 55469 NOCTURIA 03-11-2009 [facility] 53471 HYPERSOMNIA 02-26-2009 [facility] UNSPECIFIED 73682 DIAB 11-28-2008 LORRAINE W/OPHMADONNA Meza MANIFESTS TYPE II/UNS TYPE UNCNTRL 4619 ACUTE 06-17-2008 [facility] SINUSITIS, ASSOCIATES UNSPECIFIED 8082 CLOSED 03-18-2008 PROF[facility] FRACTURE OF L REHAB PUBIS ASSOC PSC 7089 UNSPECIFIED 11-17-2007 [facility] URTICARIA ASSOCIATES 6868 OTH SPEC 11-12-2007 [facility] INFECTIONS [facility]OSPITAL SKIN&SUBCUT PROF SERV TISSUE V642 SURG/OTH 11-11-2007 [facility] PROC NOT MEM H[facility] CARRIED OUT INC BECAUSE PTS DECN 401.9 Essential [place] hypertensio 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 017 pg/mL ed SerPl-m 02:30 Cnc MDRO Wnd (09-30-2016 22:55) CC XXX NOTAP complet VC-aCnc 017 NOT ed 22:55 APPLICA BLE L Bacteri [id number] complet a XXX 017 ed Anaerob 22:55 Staphyl e+Aerob ococcus e Cult aureus (organi sm) SCT SAUR STAPHYL OCOCCUS AUREUS L Bacteri [id number] complet a XXX 017 01 ed Anaerob [...] mIU/L-a Cnc NT-proBNP SerPl-mCnc (09-30-2016 12:10) NT-proB 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 017 pg/mL ed SerPl-m 12:10 Cnc T3 SerPl-mCnc (09-30-2016 12:10) T3 67 87-187 complet SerPl-m 017 ng/dL ed Cnc 12:10 Bacteria Ur Cult (09-30-2016 12:10) CC XXX NOTAP complet VC-aCnc 017 NOT ed 12:10 APPLICA BLE L Bacteri [id number] complet a XXX 017 8 Genus ed Anaerob 12:10 e+Aerob Lactoba e Cult cillus (organi sm) SCT LACB LACTOBA CILLUS SPECIES L Bacteria XXX Anaerobe+Aerobe Cult (09-30-2016 12:10) Bacteri [id number] complet a XXX 017 06 No ed [...] Procedure DOS Code Location Performer Comment SBSQ 54681 [facility] 7 PHYSICIAN CARE/DAY S GROUP 25 MINUTES INITIAL [address] [place] [address] PHYSICIAN CARE/DAY S GROUP 70 MINUTES ECG 32233 [facility] BARRETO JR ROUTINE 7 [facility] W/LEAST P 12 LDS I&R ONLY AMBULANCE A0429 [facility] SERVICE 7 AMBULANCE AMBULANCE BLS SERVICE SERVICE EMERGENCY TRANSPORT GROUND A0425 [facility] MILEAGE 7 AMBULANCE AMBULANCE PER SERVICE SERVICE STATUTE MILE DILAT [id number] [facility] CORONARY 7 [facility] ART 2 ART INC INC 2 RX-ELUT [place] DEVC PERQ FLUORO [id number] [facility] MULTI 7 [facility] CORONARY INC INC ARTERIES LOW OSMOLAR CONT FLUOROSCO [id number] [facility] PY LEFT 7 [facility]OS[facility] HEART LOW INC INC OSMOLAR CONTRAST FLUORO [id number] Z[facility] BILATERAL 7 [facility]OSP RENAL INC INC ART LOW OSMOLAR CONTRST MEASUREME [id number] [facility] NT 7 [facility] CARDIAC INC INC SAMPLING PRESS LT HEART PERQ HEMOGLOBI 92354 [facility] N 6 [facility] GLYCOSYLA INC INC ALEX A1C COLLECTIO 32378 [facility] N VENOUS 6 [facility] BLOOD INC INC VENIPUNCT URE COMPREHEN 83755 [facility] SIVE 6 [facility] [place] [address] [facility] THYROID 6 [facility]OS[facility] STIMULATI INC INC NG HORMONE TSH LIPID 62651 [facility] PANEL 6 [facility] H[facility] HOS[facility] INC INC 25 26483 COMBINED COMBINED HYDROXY 6 PHYSICIAN PHYSICIAN INCLUDES S LA S LA FRACTIONS IF PERFORMED VOLUME 89349 COMBINED COMBINED MEASUREME 6 PHYSICIAN PHYSICIAN NT TIMED S LA S LA COLLECTIO N EACH CULTURE 82326 COMBINED COMBINED BACTERIAL 6 PHYSICIAN PHYSICIAN S LA S LA QUANTTATI VE COLONY COUNT URINE CULTURE 37163 COMBINED COMBINED BCT 6 PHYSICIAN PHYSICIAN ISOL&PRSM S LA S LA PTV ID ISOLATE EA URINE RENAL 29408 COMBINED COMBINED FUNCTION 6 PHYSICIAN PHYSICIAN PANEL S LA S LA URNLS DIP 59796 COMBINED COMBINED 6 PHYSICIAN PHYSICIAN STICK/TAB S LA S LA LET REAGENT AUTO MICROSCOP Y BLOOD 68343 COMBINED COMBINED COUNT 6 PHYSICIAN PHYSICIAN COMPLETE S LA S LA AUTO&AUTO DIFRNTL WBC BARING- A4258 ARRIVA ARRIVA WERED 6 MEDICAL 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 FOR LANCET EACH NORMAL A4256 ARRIVA ARRIVA LOW AND 6 MEDICAL MEDICAL HIGH CALIBRATO R SOLUTION/ CHIPS LANCETS A4259 ARRIVA ARRIVA PER BOX 6 MEDICAL MEDICAL OF 100 BLD GLU A4253 ARRIVA ARRIVA TEST/REAG 6 MEDICAL MEDICAL T STRIPS HOME BLD GLU MON-50 GLUC BLD 84774 ZACK DIXON GLUC MNTR 6 [facility] DEV [facility] INC CLEARED FDA SPEC [facility] [id number] [facility] OBSERVATI 6 [facility] ON INC INC SERVICE PER HOUR BASIC 58835 [facility] METABOLIC 6 [facility] PANEL INC INC CALCIUM TOTAL COLLECTIO 97598 [facility] D[facility] N VENOUS 6 [facility] BLOOD INC INC VENIPUNCT URE COMPREHEN 14652 [facility] SIVE 6 [facility] METABOLIC INC INC PANEL COLLECTIO 73984 [facility] N VENOUS 6 [facility] BLOOD INC INC VENIPUNCT URE CREATINE 28230 [facility] KINASE MB 6 [facility] FRACTION [facility] INC [facility] G0378 [facility] OBSERVATI 6 [facility] ON INC INC SERVICE PER HOUR AMB A0427 [facility] SERVICE 6 AMBULANCE AMBULANCE ALS SERVICE SERVICE EMERGENCY TRANSPORT LEVEL 1 GLUC BLD 63162 [facility]ACK DIXON GLUC MNTR 6 [facility] DEV INC INC CLEARED FDA SPEC HOME USE BLOOD 11162 [facility] COUNT 6 [facility] COMPLETE INC INC AUTO&AUTO DIFRNTL WBC URNLS DIP 18874 [facility] 6 [facility] STICK/TAB INC INC LET REAGENT AUTO MICROSCOP Y PRESSURIZ 38462 [facility] ED/NONPRE 6 [facility] SSURIZED INC INC INHALATIO N TREATMENT CREATINE 43729 [facility] KINASE 6 [facility] TOTAL INC INC THER 00370 [facility] PROPH/DX 6 [facility] NJX IV INC INC PUSH SINGLE/1S T SBST/DRUG ECG 55308 [facility] ROUTINE 6 [facility] ECG INC INC W/LEAST 12 LDS TRCG ONLY W/O I&[place] [address] [facility] DIX[facility] TROPONIN 6 [facility] QUANTITAT INC INC MARIBEL GROUND A0425 [facility] MILEAGE 6 AMBULANCE AMBULANCE PER SERVICE SERVICE STATUTE MILE ECG 15369 ZACK MCLEAN ROUTINE 6 [facility] W/LEAST P 12 LDS [...] EQUIPME EQUIPME RAIL W/MATTRSS STANDARD K0001 REID CHAUDAHRII 6 HOME HOME R MEDICAL MEDICAL EQUIPME [...] TYPE SIDE EQUIPME EQUIPME RAIL W/MATTRSS COLLECTIO 16001 [facility] N VENOUS 6 [facility] BLOOD INC INC VENIPUNCT URE LIPID 39810 [facility] D[facility] PANEL 6 [facility] INC INC HEMOGLOBI 47688 [facility] DIX[facility] N 6 [facility] GLYCOSYLA INC INC ALEX A1C BASIC 46002 ZACK DIXON METABOLIC 6 [facility] PANEL INC INC CALCIUM TOTAL STANDARD K0001 REID REID WHEELCHAI 6 HOME HOME R MEDICAL MEDICAL EQUIPME EQUIPME HOS BED E0260 REID REID SEMI-ELEC 6 HOME HOME W/ANY MEDICAL MEDICAL TYPE SIDE EQUIPME EQUIPME RAIL W/MATTRSS URNLS DIP 38462 [facility] DIXON 6 [facility] [...] CELL LIBERTY BG MON OWND PT OBSERVATI 02873 [facility] CARE 6 [facility] DISCHARGE INTERNAL [facility] [id number] ZACK DIXON OBSERVATI 6 [facility] ON INC INC SERVICE PER HOUR GLUC BLD 76982 ZACK DIXON GLUC MNTR 6 [facility] DEV INC INC CLEARED FDA SPEC HOME USE BLOOD 20814 ZACK DIXON COUNT 6 [facility] COMPLETE INC INC AUTO&[place] [address] ZACK DIXON TROPONIN 6 [facility] QUANTITAT INC INC [facility] G0378 ZACK DIXON OBSERVATI 6 [facility] ON INC INC SERVICE PER HOUR GLUC BLD 89286 ZACK DIXON GLUC MNTR 6 [facility] DEV INC INC CLEARED FDA SPEC HOME USE BASIC 32042 ZACK DIXON METABOLIC 6 [facility] PANEL INC INC CALCIUM TOTAL COLLECTIO 59877 ZACK DIXON N VENOUS 6 [facility] BLOOD INC INC VENIPUNCT URE COMPREHEN 13773 [facility] DIX[facility] SIVE 6 [facility] METABOLIC INC INC PANEL CREATINE 45981 ZACK DIXON KINASE MB 6 [facility] FRACTION INC INC ONLY COLLECTIO 92272 ZACK DIXON N VENOUS 6 [facility] BLOOD INC INC VENIPUNCT URE RADIOLOGI 11598 [facility] DIXON C 6 [facility] EXAMINATI INC INC ON CHEST SINGLE VIEW FRONTAL AMB A0427 [facility] SERVICE 6 AMBULANCE AMBULANCE ALS SERVICE SERVICE [place] [address] ZACK DIXON HEAD/BRAI 6 [facility] N W/O INC INC CONTRAST MATERIAL CREATINE 41468 ZACK DIXON KINASE 6 [facility] [place] [address] ZACK DIXON LIPASE 6 [facility] INC INC INJECTION J2405 [facility] DIXON 6 [facility] ONDANSETR INC INC ON HCL PER [facility] G0378 [facility] D[facility] OBSERVATI 6 [facility] ON INC INC SERVICE PER HOUR THERAPEUT 42029 [facility] DIX[facility] IC 6 [facility] INJECTION INC [place] [address] ZACK ZACK TROPONIN 6 [facility] [place] [address] ZACKSHANDA DIXON INFUSION 6 [facility] THERAPY/P INC INC ROPHYLAXI S /DX 1ST TO 1 HR GLUC BLD 05872 ZACK DIXON GLUC MNTR 6 [facility] DEV INC INC CLEARED FDA SPEC HOME USE URNLS DIP 73455 ZACK DIXON 6 [facility] STICK/TAB INC INC LET REAGENT AUTO MICROSCOP Y BLOOD 94246 ZACK DIXON COUNT 6 [facility] COMPLETE INC INC AUTO&AUTO DIFRNTL WBC INITIAL 88913 [facility] [place] OBSERVATI 6 [facility] ON INTERNAL CARE/DAY MED 30 MINUTES ECG 18017 ZACK DIXON ROUTINE 6 [facility] HOSP ECG INC INC W/LEAST 12 LDS TRCG ONLY W/O I&R ECG 19322 ZACK BARRETO JR ROUTINE 6 [facility] W/LEAST P 12 LDS I&R ONLY GROUND A0425 [facility] MILEAGE 6 AMBULANCE AMBULANCE [place] [address] COMBINED COMBINED MAGNESIUM 6 PHYSICIAN PHYSICIAN S LA S LA CYANOCOBA 76471 COMBINED COMBINED SOHA 6 PHYSICIAN PHYSICIAN VITAMIN S [place] S LA B-12 [place] [address] COMBINED COMBINED PHOSPHORU 6 PHYSICIAN PHYSICIAN S S LA S LA INORGANIC ALBUMIN 70873 COMBINED COMBINED SERUM 6 PHYSICIAN PHYSICIAN PLASMA/WH S LA S LA OLE BLOOD BLOOD 65667 COMBINED COMBINED COUNT 6 PHYSICIAN PHYSICIAN COMPLETE S LA S LA AUTO&[place] [address] COMBINED COMBINED THYROID 6 PHYSICIAN PHYSICIAN STIMULATI S LA S LA NG HORMONE TSH BASIC 72883 COMBINED COMBINED METABOLIC 6 PHYSICIAN PHYSICIAN PANEL [place] [address] COMBINED COMBINED BLOOD/URI 6 PHYSICIAN PHYSICIAN C ACID S LA S LA STANDARD K0001 REID LOMAS 6 HOME HOME R MEDICAL MEDICAL EQUIPME EQUIPME HOS BED E0260 REID MATHEWS SEMI-ELEC 6 HOME HOME W/ANY MEDICAL MEDICAL TYPE SIDE EQUIPME EQUIPME RAIL W/MATTRSS PHYS G0179 [facility]ON RE-CERT 6 [facility] MCR-COVR INTERNAL LIB[facility] HLTH MED SRVC RE-CERT PRD AMBULANCE A0429 [facility] SERVICE 6 AMBULANCE AMBULANCE BLS SERVICE SERVICE EMERGENCY TRANSPORT GROUND A0425 [facility] MILEAGE 6 AMBULANCE AMBULANCE PER SERVICE SERVICE STATUTE MILE COMPREHEN 27368 ZACK DIXON SIVE 6 [facility] METABOLIC INC INC PANEL GLUC BLD 69614 ZACK DIXON GLUC MNTR 6 [facility] DEV INC INC CLEARED FDA SPEC HOME USE BLOOD 15736 ZACK DIXON COUNT 6 [facility] COMPLETE INC INC AUTO&AUTO DIFRNTL WBC URNLS DIP 16768 ZACK DIXON 6 [facility] STICK/TAB INC INC LET REAGENT AUTO MICROSCOP Y SBSQ 78682 [facility] NURSING 6 [facility] FACIL INTERNAL CARE/DAY MED NEW PROBLEM 25 MIN SBSQ 94408 [facility] CHAPMAN NURSING 6 [facility] INTERNAL CARE/DAY MEDI MINOR COMPLJ 15 MIN STANDARD K0001 REID CHAUDHARII 6 HOME HOME R MEDICAL MEDICAL EQUIPME EQUIPME HOS BED E0260 REID MATHEWS SEMI-ELEC 6 HOME HOME W/ANY MEDICAL MEDICAL TYPE SIDE EQUIPME EQUIPME RAIL W/MATTRSS RADEX 46118 SYMPHONY SYMPHONY SPINE 6 MOBILEX MOBILEX THORACIC 2 VIEWS RADEX 55650 SYMPHONY SYMPHONY SPINE 6 MOBILEX MOBILEX CERVICAL 2 OR 3 VIEWS SBSQ 16843 [facility] 6 [facility] FACIL INTERNAL CARE/DAY MED NEW PROBLEM 25 MIN STANDARD K0001 REID LOMAS 5 HOME HOME R MEDICAL MEDICAL EQUIPME EQUIPME HOS BED E0260 REID MATHEWS SEMI-ELEC 5 HOME HOME W/ANY MEDICAL MEDICAL TYPE SIDE EQUIPME EQUIPME RAIL W/MATTRSS CULTURE 50953 ZACK DIXON BACTERIAL 5 [facility] INC INC QUANTTATI VE COLONY COUNT URINE SUSCEPTIB 81229 ZACK DIXON LTY STDY 5 [facility] ANTIMICRB INC INC IAL MICRO/AGA R DILUTJ URNLS DIP 57956 ZACK DIXON 5 [facility] STICK/TAB INC INC LET REAGENT AUTO MICROSCOP Y RADIOLOGI 86554 ZACK DIXON C EXAM 5 [facility] CHEST 2 INC INC VIEWS FRONTAL&L ATERAL PRESSURIZ 29404 ZACK DIXON ED/NONPRE 5 [facility] SSURIZED INC INC INHALATIO N TREATMENT NATRIURET 96542 Z[facility] DIXON IC 5 [facility] PEPTIDE INC INC BLOOD 24784 ZACK DIXON COUNT 5 [facility] COMPLETE INC INC AUTO&AUTO DIFRNTL WBC COMPREHEN 41113 ZACK DIXON SIVE 5 [facility] METABOLIC INC INC PANEL AMB A0427 [facility] SERVICE 5 AMBULANCE AMBULANCE ALS SERVICE SERVICE EMERGENCY TRANSPORT LEVEL 1 GROUND A0425 [facility] - VENICE 5 AMBULANCE AMBULANCE PER SERVICE SERVICE STATUTE MILE STANDARD K0001 REID LOMAS 5 HOME HOME R MEDICAL MEDICAL EQUIPME EQUIPME HOS BED E0260 REID MATHEWS SEMI-ELEC 5 HOME HOME W/ANY MEDICAL MEDICAL TYPE SIDE EQUIPME EQUIPME RAIL W/MATTRSS SBSQ 77548 [facility] 5 CULAR MAT CARE/DAY CONSULTAN 25 TS O MINUTES INITIAL 45283 [facility] 5 CULAR MAT CARE/DAY CONSULTAN 70 TS O MINUTES ECHO 44664 [facility] 5 MEDICAL JUAN J C R-T 2D SERV W/WO FOUNDATIO M-MODE N REC F-UP/LMTD RADIOLOGI 76965 LIZZ Lopez EXAM 5 MEDICAL MELIDA CHEST 2 IMAGING VIEWS ASS FRONTAL&L ATERAL HOS BED E0260 REID MATHEWS SEMI-ELEC 5 HOME HOME W/ANY MEDICAL MEDICAL TYPE SIDE EQUIPME EQUIPME RAIL W/MATTRSS STANDARD K0001 REID CHAUDHARII 5 HOME HOME R MEDICAL MEDICAL EQUIPME EQUIPME THERAPEUT 94068 ZACK DIXON IC PX 1/> 5 [facility] AREAS INC INC EACH 15 MIN EXERCISES NORMAL A4256 ARRIVA ARRIVA LOW AND 5 MEDICAL MEDICAL HIGH CALIBRATO R SOLUTION/ CHIPS LANCETS A4259 ARRIVA ARRIVA PER BOX 5 MEDICAL MEDICAL OF 100 BLD GLU A4253 ARRIVA ARRIVA TEST/REAG 5 MEDICAL MEDICAL T STRIPS HOME BLD GLU MON-50 URNLS DIP 50760 ZACK CALDERON 5 [facility] LET RGNT P NON-AUTO W/O MICRSCP THERAPEUT 90904 ZACK DIXON IC PX 1/> 5 [facility] AREAS INC INC EACH 15 MIN EXERCISES HOS BED E0260 REID MATHEWS SEMI-ELEC 5 HOME HOME W/ANY MEDICAL MEDICAL TYPE SIDE EQUIPME EQUIPME RAIL W/MATTRSS STANDARD K0001 REID DELGADILLOCHAI 5 HOME HOME R MEDICAL MEDICAL EQUIPME EQUIPME THERAPEUT 03685 ZACK DIXON IC PX 1/> 5 [facility] AREAS INC INC EACH 15 MIN EXERCISES THERAPEUT 32804 ZACK DIXON IC PX 1/> 5 [facility] AREAS INC INC EACH 15 MIN EXERCISES RENAL 93285 ZACK DIXON FUNCTION 5 [facility] PANEL INC INC 25 09075 ZACK DIXON HYDROXY 5 [facility] INCLUDES INC INC FRACTIONS IF PERFORMED COLLECTIO 54276 ZACK DIXON N VENOUS 5 [facility] [place]LOOD [place] [address] ZACK DIXON THYROID 5 [facility] STIMULATI INC INC NG HORMONE TSH CULTURE 03037 ZACK DIXON BACTERIAL 5 [facility] INC INC QUANTTATI VE COLONY COUNT URINE CULTURE 44590 ZACK DIXON BCT 5 [facility] ISOL&PRSM INC INC PTV ID ISOLATE EA URINE HEMOGLOBI 57365 ZACK DIXON N 5 [facility] GLYCOSYLA INC INC ALEX A1C BLOOD 50771 ZACK DIXON COUNT 5 [facility] COMPLETE INC INC AUTO&AUTO DIFRNTL WBC SUSCEPTIB 13202 ZACK DIXON LTY STDY 5 [facility] ANTIMICRB INC INC IAL MICRO/AGA R DILUTJ URNLS DIP 63266 ZACK DIXON 5 [facility] STICK/TAB INC INC LET REAGENT AUTO MICROSCOP Y THERAPEUT 70960 ZACKSHANDA DIXON IC PX 1/> 5 [facility] AREAS INC INC EACH 15 MIN EXERCISES THERAPEUT 42525 ZACK DIXON IC PX 1/> 5 [facility] AREAS INC INC EACH 15 MIN EXERCISES THERAPEUT 71625 ZACK DIXON IC PX 1/> 5 [facility] AREAS INC INC EACH 15 MIN EXERCISES THERAPEUT 38426 ZACK DIXON IC PX 1/> 5 [facility] AREAS INC INC EACH 15 MIN EXERCISES PHYSICAL 60162 ZACK ZACK THERAPY 5 [facility] EVALUATIO INC INC N CATH CLCT P9612 ZACK CALDERON SPECIMEN 5 [facility] PT ALL P PLACES SERVICE SUSCEPTIB 60391 ZACK DIXON LTY STDY 5 [facility] ANTIMICRB INC INC IAL MICRO/AGA R DILUTJ URNLS DIP 24228 ZACK CALDERON 5 [facility] LET RGNT P NON-AUTO W/O MICRSCP CULTURE 44438 ZACK DIXON BACTERIAL 5 [facility]OS[facility] INC INC QUANTTATI VE COLONY COUNT URINE CULTURE 71833 ZACK DIXON BCT 5 [facility] ISOL&PRSM INC INC PTV ID ISOLATE EA URINE HOS BED E0260 REID MATHEWS SEMI-ELEC 5 HOME HOME W/ANY MEDICAL MEDICAL TYPE SIDE EQUIPME EQUIPME RAIL W/MATTRSS STANDARD K0001 REID DELGADILLOCHAI 5 HOME HOME R MEDICAL MEDICAL EQUIPME EQUIPME COMMODE E0163 REID MATHEWS CHAIR 5 HOME HOME MOBILE OR MEDICAL MEDICAL EQUIPME EQUIPME STATIONAR Y W/FIXED ARMS ONELIA 07917 ZACK CALDERON POST-VOID 5 [facility] RESIDUAL P URINE&/BL ADDER CAP CULTURE 85495 ZACK DIXON BACTERIAL 5 [facility] INC INC QUANTTATI VE COLONY COUNT URINE CULTURE 03089 ZACK DIXON BCT 5 [facility] ISOL&PRSM INC INC PTV ID ISOLATE EA URINE SUSCEPTIB 39627 ZACK DIXON LTY STDY 5 [facility]OS[facility] ANTIMICRB INC INC IAL MICRO/AGA R DILUTJ RADIOLOGI 19028 SYMPHONY SYMPHONY C 5 MOBILEX MOBILEX EXAMINATI ON CHEST SINGLE VIEW FRONTAL RADIOLOGI 24220 SYMPHONY SYMPHONY C 5 MOBILEX MOBILEX EXAMINATI ON CHEST SINGLE VIEW FRONTAL INITIAL 93511 [facility] FAC[facility] CARE/DAY 25 MINUTES DEBRIDEME 62863 [facility] ARE [facility]RE[facility] ANY METHOD 6/> SBSQ 25075 [facility] INTERNAL CARE/DAY MED NEW PROBLEM 25 MIN BLOOD 94076 COMBINED COMBINED COUNT 5 PHYSICIAN PHYSICIAN COMPLETE S LA S LA AUTO&AUTO DIFRNTL WBC BASIC 75091 COMBINED COMBINED METABOLIC 5 PHYSICIAN PHYSICIAN [place] [address] [place] FRANKY ABDOMINAL 5 MEDICAL KAY REAL IMAGING TIME ASS W/[place] [address] [place] SHERI ABDOMEN & 5 MEDICAL MELIDA PELVIS IMAGING W/O ASS CONTRAST MATERIAL ECG 20745 ZACK MCLEAN ROUTINE 5 [facility] W/LEAST P 12 LDS I&R ONLY CRITICAL 18647 ZACK ZACK CARE [address] [facility] ED P P PATIENT INIT 30-74 MIN RADIOLOGI 14089 [place] RODRIGUEZ ALL C 5 MEDICAL EXAMINATI IMAGING ON CHEST ASS SINGLE VIEW FRONTAL RADEX 06390 [place] [facility] MASTOIDS 5 MEDICAL KAY COMPL IMAGING MINIMUM 3 ASS VIEWS OK SIDE RADEX 29626 [place] [facility] SPINE 5 MEDICAL KAY CERVICAL IMAGING 4 OR 5 ASS VIEWS LANCETS A4259 ARRIVA ARRIVA PER BOX 5 MEDICAL MEDICAL OF 100 NORMAL A4256 ARRIVA ARRIVA LOW AND 5 MEDICAL MEDICAL HIGH CALIBRATO R SOLUTION/ CHIPS BLD GLU A4253 ARRIVA ARRIVA TEST/REAG 5 MEDICAL MEDICAL T STRIPS HOME BLD GLU MON-50 SPRING-PO A4258 ARRIVA ARRIVA WERED 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 PROPHYLAC INC INC TIC/DX INJECTION SUBQ/IM INJECTION J0897 ZACK DIXON 5 [facility] DENOSUMAB INC INC 1 MG COLLECTIO 46669 ZACK DIXON N VENOUS 4 [facility] BLOOD INC INC VENIPUNCT URE CREATININ 08117 ZACK DIXON E OTHER 4 [facility] SOURCE INC INC DXA BONE 83633 ZACK DIXON DENSITY 4 [facility] STUDY 1/> INC INC SITES AXIAL SKEL RENAL 96342 ZACK DIXON FUNCTION 4 [facility] PANEL INC INC PROTEIN 39018 ZACK DIXON XCPT 4 [facility] REFRACTOM INC INC ETRY SERUM PLASMA/WH L BLD BLOOD 36233 ZACK DIXON COUNT 4 [facility] COMPLETE INC INC AUTO&AUTO DIFRNTL WBC SUSCEPTIB 99331 ZACK DIXON LTY STDY 4 [facility] ANTIMICRB INC INC IAL MICRO/AGA R DILUTJ URNLS DIP 06921 ZACK DIXON 4 [facility] STICK/TAB INC INC LET REAGENT AUTO MICROSCOP Y CULTURE 11429 ZACK DIXON BACTERIAL 4 [facility] INC INC QUANTTATI VE COLONY COUNT URINE CULTURE 65918 ZACK DIXON BCT 4 [facility] ISOL&PRSM INC INC PTV ID ISOLATE EA URINE 25 66763 ZACK DIXON HYDROXY 4 [facility] INCLUDES [place] [address] ZACK DIXON PARATHORM 4 [facility] ONE INC INC COMPREHEN 32877 COMBINED COMBINED SIVE 4 PHYSICIAN PHYSICIAN [place] [address] ZACK DIXON TROPONIN 4 [facility] QUANTITAT INC INC MARIBEL BLOOD 34823 ZACK DIXON COUNT 4 [facility] COMPLETE INC INC AUTO&AUTO DIFRNTL WBC URNLS DIP 14825 ZACK ZACK 4 [facility] STICK/TAB INC INC LET REAGENT AUTO MICROSCOP Y RADIOLOGI 65265 ZACK DIXON C EXAM 4 [facility] CHEST 2 INC INC VIEWS FRONTAL&L ATERAL PRESSURIZ 99808 ZACK DIXON ED/NONPRE 4 [facility] SSURIZED INC INC INHALATIO N TREATMENT CREATINE 92122 ZACK DIXON KINASE 4 [facility] TOTAL INC INC COMPREHEN 75811 ZACK DIXON SIVE 4 [facility] METABOLIC INC INC PANEL CREATINE 03400 ZACK DIXON KINASE MB 4 [facility] FRACTION INC INC ONLY COLLECTIO 19050 ZACK Yoo VENOUS 4 [facility] BLOOD INC INC VENIPUNCT URE 25 33948 ZACK ZACK HYDROXY 4 [facility] INCLUDES INC INC FRACTIONS IF PERFORMED RENAL 70311 ZACK DIXON FUNCTION 4 [facility] PANEL INC INC BLOOD 40022 ZACK DIXON COUNT 4 [facility] COMPLETE INC INC AUTO&AUTO DIFRNTL WBC THERAPEUT 59235 ZACK DIXON IC 4 [facility] PROPHYLAC INC INC TIC/DX INJECTION SUBQ/IM INJECTION J0897 ZAKC DIXON 4 [facility] DENOSUMAB INC INC 1 MG BASIC 39091 COMBINED COMBINED METABOLIC 4 PHYSICIAN PHYSICIAN PANEL S LA S LA CALCIUM TOTAL COMPREHEN 00401 COMBINED COMBINED SIVE 4 PHYSICIAN PHYSICIAN METABOLIC S LA S LA PANEL BASIC 77409 ZACK DIXON METABOLIC 4 [facility] PANEL INC INC CALCIUM TOTAL COLLECTIO 72647 ZACK DIXON N VENOUS 4 [facility] BLOOD INC INC VENIPUNCT URE THERAPEUT 70547 ZACK DIXON IC 4 [facility] PROPHYLAC INC INC TIC/DX INJECTION SUBQ/IM INJECTION J0897 ZACK DIXON 4 [facility] DENOSUMAB INC INC 1 MG INJECTION 19577 [facility] 1 TENDON 3 PHYSICIAN PHYSICIAN S GROUP S GROUP SHEATH/LI GAMENT APONEUROS IS ARTHROCEN 22036 [facility] PETTEY TESIS 3 PHYSICIAN JAM ASPIR&/IN S GROUP J MAJOR JT/BURSA W/O US INJ J0702 [facility] BETAMETHA 3 PHYSICIAN TONI SONE S GROUP ACETATE & PHOSPHATE 3 MG ALBUMIN 70540 ZACK DIXON URINE 3 [facility] MICROALBU INC INC MIN QUANTIATI VE 25 93589 ZACK DIXON HYDROXY 3 [facility] INCLUDES INC [place] [address] ZACK DIXON PARATHORM 3 [facility] ONE INC INC DXA BONE 25935 ZACK DIXON DENSITY 3 [facility] STUDY 1/> INC INC SITES AXIAL SKEL BLOOD 23045 ZACK DIXON COUNT 3 [facility] COMPLETE INC INC AUTO&AUTO DIFRNTL WBC URNLS DIP 92451 ZACK DIXON 3 [facility] STICK/TAB INC INC LET REAGENT AUTO MICROSCOP Y RENAL 55374 ZACK DIXON FUNCTION 3 [facility] PANEL INC INC BASIC 81605 COMBINED COMBINED METABOLIC 3 PHYSICIAN PHYSICIAN PANEL S LA S LA CALCIUM TOTAL COLLECTIO 98007 ZACK DIXON N VENOUS 3 [facility] [place] [address] ZACK DIXON STREPTOCO 3 [facility] CCUS INC INC GROUP A RADIOLOGI 12470 LIZZ Lopez EXAM 3 MEDICAL MELIDA CHEST 2 IMAGING VIEWS ASS FRONTAL&L ATERAL CUL BACT 23451 ZACK DIXON XCPT 3 [facility] URINE INC INC BLOOD/STO OL AEROBIC ISOL IAADI 13815 ZACK DIXON INFLUENZA 3 [facility] B VIRUS INC INC IAADI 90919 ZACK DIXON INFFLUENZ 3 [facility] A A VIRUS INC INC BASIC 35273 COMBINED COMBINED METABOLIC 3 PHYSICIAN PHYSICIAN [place]EL [place] [address] COMBINED COMBINED BLOOD/URI 3 PHYSICIAN PHYSICIAN C ACID S LA S LA RHYTHM 72545 ZACK DIXON ECG 1-3 3 [facility] LEADS INC INC TRACING ONLY W/O I&[place] [address] ZACK DIXON TROPONIN 3 [facility] QUANTITAT INC INC MARIBEL BLOOD 70951 ZACK DIXON COUNT 3 [facility] COMPLETE INC INC AUTO&AUTO DIFRNTL WBC RADIOLOGI 22506 ZACK DIXON C EXAM 3 [facility] CHEST 2 INC INC VIEWS FRONTAL&L ATERAL PULMONARY 56312 ZACK DIXON 3 [facility] VENTILATI INC INC ON & PERFUSION IMAGING TECHNETIU A9540 ZACK Flanagan TC-99M 3 [facility] MAA DX INC INC STDY DOSE UP TO 10 MCI THER 68843 ZACK DIXON PROPH/DX 3 [facility] NJX IV INC INC PUSH SINGLE/1S T SBST/DRUG ECG 31258 ZACK DIXON ROUTINE 3 [facility] ECG INC INC W/LEAST 12 LDS TRCG ONLY W/O I&R COMPREHEN 98161 ZACK DIXON SIVE 3 [facility] METABOLIC INC INC PANEL CREATINE 23113 ZACK DIXON KINASE MB 3 [facility] FRACTION INC INC ONLY TECHNETIU A9567 ZACK Flanagan TC-99M 3 [facility] PENTETATE INC INC DX AEROSOL TO 75 MCI ECG 48486 EMEKA LIRA ROUTINE 3 EMERGENCY ECG SERVICES W/LEAST 12 LDS I&R ONLY CREATINE 52086 ZACK DIXON KINASE 3 [facility] TOTAL INC INC FIBRIN 15647 ZACK DIXON DGRADJ 3 [facility] PRODUCTS INC INC D-DIMER QUAL/SEMI BARB RADIOLOGI 64127 ZACK DIXON C 3 [facility] EXAMINATI INC INC ON CHEST SINGLE VIEW FRONTAL COLLECTIO 44969 ZACK DIXON N VENOUS 3 [facility] BLOOD INC INC VENIPUNCT URE RENAL 95620 ZACK DIXON FUNCTION 3 [facility] PANEL INC INC BLOOD 60139 ZACK DIXON COUNT 3 [facility] COMPLETE INC INC AUTO&AUTO DIFRNTL WBC THERAPEUT 45298 ZACK DIXON IC 3 [facility] PROPHYLAC INC INC TIC/DX INJECTION SUBQ/IM INJECTION J0897 ZACK DIXON 3 [facility] DENOSUMAB INC INC 1 MG APPL 60078 ZACK DIXON MODALITY 3 [facility] 1/> AREAS INC INC 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 G0283 ZACK DIXON 1/> AREAS 3 [facility] OTH THAN INC INC WND CARE PART TX PLAN APPLICATI 67957 ZACK DIXON ON 3 [facility] MODALITY INC INC 1/> AREAS HOT/COLD PACKS THERAPEUT 74820 ZACK DIXON IC PX 1/> 3 [facility] AREAS INC INC EACH 15 MIN EXERCISES THERAPEUT 90647 ZACK DIXON IC PX 1/> 3 [facility] AREAS INC INC EACH 15 MIN EXERCISES APPLICATI 77948 ZACK DIXON ON 3 [facility] MODALITY INC INC 1/> AREAS HOT/COLD PACKS E-STIM G0283 ZACK DIXON 1/> AREAS 3 [facility] OTH THAN INC INC WND CARE PART TX PLAN APPL 05737 ZACK DIXON MODALITY 3 [facility] 1/> AREAS INC INC IONTOPHOR ESIS EA 15 MIN APPL 81749 ZACK DIXON MODALITY 3 [facility] 1/> AREAS INC INC 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 G0283 ZACK DIXON 1/> AREAS 3 [facility] OTH THAN INC INC WND CARE PART TX PLAN APPLICATI 49132 ZACK DIXON ON 3 [facility] MODALITY INC INC 1/> AREAS HOT/COLD PACKS THERAPEUT 25203 ZACK ELLIOTTON IC PX 1/> 3 [facility] AREAS INC INC EACH 15 MIN EXERCISES THERAPEUT 42490 ZACK DIXON IC PX 1/> 3 [facility] AREAS INC INC EACH 15 MIN EXERCISES APPLICATI 94571 ZACK DIXON ON 3 [facility] MODALITY INC INC 1/> AREAS HOT/COLD PACKS E-STIM G0283 ZACK DIXON 1/> AREAS 3 [facility] OTH THAN INC INC WND CARE PART TX PLAN APPL 08446 ZACK DIXON MODALITY 3 [facility] 1/> AREAS INC INC 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 G0283 ZACK DIXON 1/> AREAS 3 [facility] OTH THAN INC INC WND CARE PART TX PLAN THERAPEUT 27782 ZACK DIXON IC PX 1/> 3 [facility] AREAS INC INC EACH 15 MIN EXERCISES THERAPEUT 22537 ZACK DIXON IC PX 1/> 3 [facility] AREAS INC INC EACH 15 MIN EXERCISES APPLICATI 54621 ZACK DIXON ON 3 [facility] MODALITY INC INC 1/> AREAS HOT/COLD PACKS E-STIM G0283 ZACK DIXON 1/> AREAS 3 [facility] OTH THAN INC INC WND CARE PART TX PLAN APPL 35560 ZACK DIXON MODALITY 3 [facility] 1/> AREAS INC INC IONTOPHOR ESIS EA 15 MIN CULTURE 81516 COMBINED COMBINED BACTERIAL 3 PHYSICIAN PHYSICIAN S LA S LA QUANTTATI VE COLONY COUNT URINE APPL 86671 ZACK DIXON MODALITY 3 [facility] 1/> AREAS INC INC 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 G0283 ZACK DIXON 1/> AREAS 3 [facility] OTH THAN INC INC WND CARE PART TX PLAN APPLICATI 58197 ZACK DIXON ON 3 [facility] MODALITY INC INC 1/> AREAS HOT/COLD PACKS THERAPEUT 14315 ZACK ZACK IC PX 1/> 3 [facility] AREAS INC INC EACH 15 MIN EXERCISES THERAPEUT 99847 ZACK ZACK IC PX 1/> 3 [facility] AREAS INC INC EACH 15 MIN EXERCISES THERAPEUT 96156 ZACK DIXON IC PX 1/> [facility] ARE[facility] INC INC EACH 15 MIN EXERCISES APPL 01076 ZACK DIXON MODALITY 3 [facility]/> AREAS INC INC ULTRASOUN D EA 15 MIN E-STIM G0283 ZACK DIXON 1/> AREAS 3 [facility] OTH THAN INC INC WND CARE PART TX PLAN APPL 80506 ZACK DIXON MODALITY 3 [facility] 1/> AREAS INC INC IONTOPHOR ESIS EA 15 MIN APPL 56905 ZACK DIXON MODALITY 3 [facility] 1/> AREAS INC INC 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 G0283 ZACK DIXON 1/> AREAS 3 [facility] OTH THAN INC INC WND CARE PART TX PLAN APPLICATI 91017 ZACK DIX[facility] ON 3 [facility] MODALITY INC INC 1/> AREAS HOT/COLD PACKS THERAPEUT 16623 ZACK DIXON IC PX 1/> 3 [facility] INC INC EACH 15 MIN EXERCISES THERAPEUT 79873 ZACK DIXON IC PX 1/> 3 [facility] INC INC EACH 15 MIN EXERCISES APPLICATI 18365 ZACK DIXON ON 3 [facility] MODALITY INC INC 1/> AREAS HOT/COLD PACKS E-STIM G0283 ZACK DIXON 1/> AREAS 3 [facility] OTH THAN INC INC WND CARE PART TX PLAN APPL 50734 ZACK DIXON MODALITY 3 [facility]/> AREAS INC INC IONTOPHOR ESIS EA 15 MIN APPL 67874 ZACK DIXON MODALITY 3 [facility]/> AREAS INC INC 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 G0283 ZACK DIXON 1/> AREAS 3 [facility] OTH THAN INC INC WND CARE PART TX PLAN THERAPEUT 85151 ZACK DIXON IC PX 1/> 3 [facility] AREAS INC INC EACH 15 MIN EXERCISES APPLICATI 20058 ZACK DIXON ON 3 [facility] MODALITY INC INC 1/> AREAS HOT/COLD PACKS APPL 00437 ZACK DIXON MODALITY 3 [facility]/> AREAS INC INC ULTRASOUN D EA 15 MIN APPL 65180 ZACK DIXON MODALITY 3 [facility]/> AREAS INC INC ULTRASOUN D EA 15 MIN THERAPEUT 78542 ZACK DIXON IC PX 1/> 3 [facility] AREAS INC INC EACH 15 MIN EXERCISES E-STIM G0283 ZACK DIXON 1/> AREAS 3 [facility] OTH THAN INC INC WND CARE PART TX PLAN APPL 10644 ZACK DIXON MODALITY 3 [facility]/> AREAS INC INC IONTOPHOR ESIS EA 15 MIN CULTURE 07304 ZACK DIXON BACTERIAL 3 [facility] INC INC QUANTTATI VE COLONY COUNT URINE CULTURE 12375 ZACK DIXON BCT 3 [facility] ISOL&PRSM INC INC PTV ID ISOLATE EA URINE E-STIM G0283 ZACK DIXON 1/> AREAS 3 [facility] OTH THAN INC INC WND CARE PART TX PLAN RENAL 17671 ZACK DIXON FUNCTION 3 [facility] PANEL INC INC BLOOD 16162 ZACKSHANDA DIXON COUNT 3 [facility] COMPLETE INC INC AUTO&AUTO DIFRNTL WBC SUSCEPTIB 55789 ZACK DIXON LTY STDY 3 [facility] ANTIMICRB INC INC IAL MICRO/AGA R DILUTJ URNLS DIP 31558 ZACKSHANDA DIXON 3 [facility] STICK/TAB INC INC LET REAGENT AUTO MICROSCOP Y 25 61639 ZACK DIXON HYDROXY 3 [facility] INCLUDES INC [place] [address] ZACK DIXON PARATHORM 3 [facility] ONE INC INC PROTEIN 73251 ZACK DIXON ELECTROPH 3 [facility] ORETIC INC INC FRACTJ&QU ANTJ SERUM COLLECTIO 19864 ZACK DIXON N VENOUS 3 [facility] [place] [address] ZACK DIXON NEPHELOME 3 [facility] TRY EACH INC INC ANALYTE YANELY APPL 83138 ZACK ZACK MODALITY 3 [facility]/> AREAS INC INC ULTRASOUN D EA 15 MIN THERAPEUT 54976 ZACK ZACK IC PX 1/> 3 [facility] AREAS INC INC EACH 15 MIN EXERCISES APPL 93463 ZACK DIXON MODALITY 3 [facility] 1/> AREAS INC INC 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 39245 ZACK DIXON IC PX 1/> 3 [facility] AREAS INC INC EACH 15 MIN EXERCISES APPL 32438 ZACK DIXON MODALITY 3 [facility] 1/> AREAS INC INC IONTOPHOR ESIS EA 15 MIN APPLICATI 09110 ZACK DIXON ON 3 [facility] MODALITY INC INC 1/> AREAS HOT/COLD PACKS E-STIM G0283 ZACK DIXON 1/> AREAS 3 [facility] OTH THAN INC INC WND CARE PART TX PLAN APPLICATI 57406 ZACK DIXON ON 3 [facility] MODALITY INC INC 1/> AREAS HOT/COLD PACKS APPL 44924 ZACK DIXON MODALITY 3 [facility] 1/> AREAS INC INC ULTRASOUN D EA 15 MIN E-STIM G0283 ZACK DIXON 1/> AREAS 3 [facility] OTH THAN INC INC WND CARE PART TX PLAN APPL 00725 ZACK DIXON MODALITY 3 [facility] 1/> AREAS INC INC 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 17803 ZACK DIXON IC PX 1/> 3 [facility] AREAS INC INC EACH 15 MIN EXERCISES THERAPEUT 47098 ZACK DIXON IC PX 1/> 3 [facility] AREAS INC INC EACH 15 MIN EXERCISES APPL 00786 ZACK DIXON MODALITY 3 [facility] 1/> AREAS INC INC 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 G0283 ZACK ZACK 1/> AREAS 3 [facility] OTH THAN INC INC WND CARE PART TX PLAN APPL 20712 ZACK ZACK MODALITY 3 [facility] 1/> AREAS INC INC ULTRASOUN D EA 15 MIN APPL 49895 ZACK DIXON MODALITY 3 [facility] 1/> AREAS INC INC ULTRASOUN D EA 15 MIN E-STIM G0283 ZACK DIXON 1/> AREAS 3 [facility] OTH THAN INC INC WND CARE PART TX PLAN APPLICATI 10303 ZACK DIXON ON 3 [facility] MODALITY INC INC 1/> AREAS HOT/COLD PACKS APPL 27893 ZACK DIXON MODALITY 3 [facility] 1/> AREAS INC INC 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 31855 ZACK DIXON IC PX 1/> 3 [facility] AREAS INC INC EACH 15 MIN EXERCISES THERAPEUT 55153 ZACK ZACK IC PX 1/> 3 [facility] AREAS INC INC EACH 15 MIN EXERCISES APPL 44535 ZACK DIXON MODALITY 3 [facility] 1/> AREAS INC INC IONTOPHOR ESIS EA 15 MIN APPL 34968 ZACK DIXON MODALITY 3 [facility] 1/> AREAS INC INC ULTRASOUN D EA 15 MIN BASIC 70176 COMBINED COMBINED METABOLIC 3 PHYSICIAN PHYSICIAN PANEL S LA S LA CALCIUM TOTAL APPL 27939 ZACK DIXON MODALITY 3 [facility] 1/> AREAS INC INC ULTRASOUN D EA 15 MIN E-STIM G0283 ZACK DIXON 1/> AREAS 3 [facility] OTH THAN INC INC WND CARE PART TX PLAN APPL 94278 ZACK DIXON MODALITY 3 [facility] 1/> AREAS INC INC 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 45779 ZACK DIXON IC PX 1/> 3 [facility] AREAS INC INC EACH 15 MIN EXERCISES THERAPEUT 03729 ZACK DIXON IC PX 1/> 3 [facility] AREAS INC INC EACH 15 MIN EXERCISES APPL 60489 ZACK DIXON MODALITY 3 [facility] 1/> AREAS INC INC 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 G0283 ZACK DIXON 1/> AREAS 3 [facility] OTH THAN INC INC WND CARE PART TX PLAN APPL 74672 ZACK DIXON MODALITY 3 [facility] 1/> AREAS INC INC ULTRASOUN D EA 15 MIN APPL 28234 ZACK DIXON MODALITY 3 [facility] 1/> AREAS INC INC ULTRASOUN D EA 15 MIN APPLICATI 01889 ZACK DIXON ON 3 [facility] MODALITY INC INC 1/> AREAS HOT/COLD PACKS E-STIM G0283 ZACK DIXON 1/> AREAS 3 [facility] OTH THAN INC INC WND CARE PART TX PLAN THERAPEUT 83849 ZACK DIXON IC PX 1/> 3 [facility] AREAS INC INC EACH 15 MIN EXERCISES THERAPEUT 13226 ZACK DIXON IC PX 1/> 3 [facility] AREAS INC INC EACH 15 MIN EXERCISES E-STIM G0283 ZACK DIXON 1/> AREAS 3 [facility] OTH THAN INC INC WND CARE PART TX PLAN APPL 33583 ZACK DIXON MODALITY 3 [facility] 1/> AREAS INC INC ULTRASOUN D EA 15 MIN E-STIM G0283 ZACK DIXON 1/> AREAS 3 [facility] OTH THAN INC INC WND CARE PART TX PLAN THERAPEUT 42061 ZACK DIXON IC PX 1/> 3 [facility] AREAS INC INC EACH 15 MIN EXERCISES APPL 03584 ZACK DIXON MODALITY 3 [facility] 1/> AREAS INC INC 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 18077 ZACK DIXON IC PX 1/> 3 [facility] AREAS INC INC EACH 15 MIN EXERCISES APPLICATI 81310 ZACK DIXON ON 3 [facility] MODALITY INC INC 1/> AREAS HOT/COLD PACKS E-STIM G0283 ZACK DIXON 1/> AREAS 3 [facility] OTH THAN INC INC WND CARE PART TX PLAN E-STIM G0283 ZACK DIXON 1/> AREAS 3 [facility] OTH THAN INC INC WND CARE PART TX PLAN APPL 11664 ZACK DIXON MODALITY 3 [facility] 1/> AREAS INC INC 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 APPL 37818 ZACK DIXON MODALITY 3 [facility] 1/> AREAS INC INC ULTRASOUN D EA 15 MIN THERAPEUT 02055 ZACK DIXON IC PX 1/> 3 [facility] AREAS INC INC EACH 15 MIN EXERCISES THERAPEUT 77752 ZACK DIXON IC PX 1/> 3 [facility] AREAS INC INC EACH 15 MIN EXERCISES APPL 48282 ZACK DIXON MODALITY 3 [facility] 1/> AREAS INC INC 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 APPLICATI 38350 ZACK DIXON ON 3 [facility] MODALITY INC INC 1/> AREAS HOT/COLD PACKS APPL 13785 ZACK DIXON MODALITY 3 [facility] 1/> AREAS INC INC ULTRASOUN D EA 15 MIN E-STIM G0283 ZACK DIXON 1/> AREAS 3 [facility] OTH THAN INC INC WND CARE PART TX PLAN E-STIM G0283 ZACK DIXON 1/> AREAS 3 [facility] OTH THAN INC INC WND CARE PART TX PLAN APPL 02103 ZACK DIXON MODALITY 3 [facility] 1/> AREAS INC INC ULTRASOUN D EA 15 MIN APPLICATI 42290 ZACK DIXON ON 3 [facility] MODALITY INC INC 1/> AREAS HOT/COLD PACKS APPL 88846 ZACK DIXON MODALITY 3 [facility] 1/> AREAS INC INC 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 APPL 76557 ZACK DIXON MODALITY 3 [facility] 1/> AREAS INC INC 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 04612 ZACK DIXON IC PX 1/> 3 [facility] AREAS INC INC EACH 15 MIN EXERCISES APPLICATI 98992 ZACK DIXON ON 3 [facility] MODALITY INC INC 1/> AREAS HOT/COLD PACKS APPL 30253 ZACK DIXON MODALITY 3 [facility] 1/> AREAS INC INC ULTRASOUN D EA 15 MIN E-STIM G0283 ZACK ZACK 1/> AREAS 3 [facility] OTH THAN INC INC WND CARE PART TX PLAN E-STIM G0283 ZACKSHANDA ELLIOTTON 1/> AREAS 3 [facility] OTH THAN INC INC WND CARE PART TX PLAN APPL 01292 ZACK DIXON MODALITY 3 [facility] 1/> AREAS INC INC ULTRASOUN D EA 15 MIN APPLICATI 34902 ZACK DIXON ON 3 [facility] MODALITY INC INC 1/> AREAS HOT/COLD PACKS THERAPEUT 93408 ZACK DIXON IC PX 1/> 3 [facility] AREAS INC INC EACH 15 MIN EXERCISES APPL 10612 ZACK DIXON MODALITY 3 [facility] 1/> AREAS INC INC 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 APPL 00623 ZACK DIXON MODALITY 3 [facility] 1/> AREAS INC INC IONTOPHOR ESIS EA 15 MIN PHYSICAL 78623 ZACK DIXON THERAPY 3 [facility] EVALUATIO INC INC N THERAPEUT 71597 ZACK DIXON IC PX 1/> 3 [facility] AREAS INC INC EACH 15 MIN EXERCISES APPLICATI 51589 ZACK DIXON ON 3 [facility] MODALITY INC INC 1/> AREAS HOT/COLD PACKS APPL 03339 ZACK DIXON MODALITY 3 [facility] 1/> AREAS INC INC ULTRASOUN D EA 15 MIN RADEX HIP 56923 [place] SHER[place] 3 MEDICAL MELIDA UNILATERA IMAGING L ASS COMPLETE MINIMUM 2 VIEWS BASIC 08152 COMBINED COMBINED METABOLIC 3 PHYSICIAN PHYSICIAN PANEL [place] [address] COMBINED COMBINED BLOOD/URI 3 PHYSICIAN PHYSICIAN C NELY [place] [facility] G0378 ZACK DIXON OBSERVATI 2 [facility] ON INC INC SERVICE PER HOUR GLUC BLD 82311 ZACK DIXON GLUC MNTR 2 [facility] DEV INC INC CLEARED FDA SPEC HOME USE BLOOD 46892 ZACK DIXON COUNT 2 [facility] COMPLETE INC INC AUTO&AUTO DIFRNTL WBC BASIC 70613 ZACK DIXON METABOLIC 2 [facility] PANEL INC INC CALCIUM TOTAL COLLECTIO 09766 ZACK DIXON N VENOUS 2 [facility] BLOOD INC INC VENIPUNCT URE COLLECTIO 33517 ZACK DIXON N VENOUS 2 [facility] [place]LO[place] [address] ZACK DIXON TROPONIN 2 [facility] QUANTITAT INC INC MARIBEL BASIC 54319 ZACK DIXON METABOLIC 2 [facility] PANEL INC INC CALCIUM TOTAL TECHNETIU A9540 ZACK DIXON M TC-99M 2 [facility] MAA DX INC INC STDY DOSE UP TO 10 MCI GLUC BLD 33267 ZACK DIXON GLUC MNTR 2 [facility] DEV INC INC CLEARED FDA SPEC HOME USE BLOOD 88442 ZACK DIXON COUNT 2 [facility] COMPLETE INC INC AUTO&AUTO DIFRNTL WBC NONINVASI 46269 ZACK DIXON VE 2 [facility] EAR/PULSE INC INC OXIMETRY SINGLE DETER CREATINE 80443 ZACK DIXON KINASE 2 [facility] TOTAL INC INC PULMONARY 42057 [place] 2 MEDICAL MELIDA VENTILATI IMAGING ON & ASS PERFUSION IMAGING ECHO 55917 [facility] R-T 2 [facility] 2D CARDIOLOG W/WOM-MOD Y CLINIC E COMPL SPEC&COLR D [facility] G0378 ZACK DIXON OBSERVATI 2 [facility] ON INC INC SERVICE PER HOUR CREATINE 46612 ZACK DIXON KINASE MB 2 [facility] FRACTION INC INC ONLY TECHNETIU A9567 ZACK DIXON M TC-99M 2 [facility] PENTETATE INC INC DX AEROSOL TO 75 [facility] G0378 ZACK DIXON OBSERVATI 2 [facility] ON INC INC SERVICE PER HOUR CREATINE 51592 ZACK DIXON KINASE 2 [facility] TOTAL INC INC ECG 94239 EMEKA REID BAB ROUTINE 2 EMERGENCY ECG SERVICES W/LEAST 12 LDS I&R ONLY GLUC BLD 02850 ZACK DIXON GLUC MNTR 2 [facility] DEV INC INC CLEARED FDA SPEC HOME USE BLOOD 49907 ZACK DIXON COUNT 2 [facility] COMPLETE INC INC AUTO&AUTO DIFRNTL WBC CULTURE 29623 ZACK DIXON BACTERIAL 2 [facility] BLOOD INC INC AEROBIC W/ID ISOLATES URNLS DIP 63039 ZACK DIXON 2 [facility] STICK/TAB INC INC LET REAGENT AUTO MICROSCOP Y RADIOLOGI 98569 ZACK DIXON C EXAM 2 [facility] CHEST 2 INC INC VIEWS FRONTAL&L ATERAL THERAPEUT 52953 ZACK DIXON IC 2 [facility] PROPHYLAC INC INC TIC/DX INJECTION SUBQ/IM ECG 05781 ZACK DIXON ROUTINE 2 [facility] ECG INC INC W/LEAST 12 LDS TRCG ONLY W/O I&R FIBRIN 62102 ZACK DIXON DGRADJ 2 [facility] PRODUCTS INC INC D-DIMER QUAL/SEMI BARB BASIC 92552 ZACK DIXON METABOLIC 2 [facility] [place] [address] ZACK DIXON TROPONIN 2 [facility] QUANTITAT INC INC MARIBEL NATRIURET 03493 ZACK DIXON IC 2 [facility] PEPTIDE INC INC CREATINE 01601 ZACK DIXON KINASE MB 2 [facility] FRACTION INC INC ONLY BASIC 73701 ZACK DIXON METABOLIC 2 [facility] PANEL INC INC CALCIUM TOTAL BLOOD 26769 ZACK DIXON COUNT 2 [facility] COMPLETE INC INC AUTO&AUTO DIFRNTL WBC COLLECTIO 10336 ZACK DIXON N VENOUS 2 [facility] BLOOD INC INC VENIPUNCT URE INJECTION J0897 ZACK DIXON 2 [facility] DENOSUMAB INC INC 1 MG THERAPEUT 09015 ZACK DIXON IC 2 [facility] PROPHYLAC INC INC TIC/DX INJECTION SUBQ/IM RENAL 90057 ZACK DIXON FUNCTION 2 [facility] PANEL INC INC PROTEIN 01846 ZACK DIXON XCPT 2 [facility] REFRACTOM INC INC ETRY SERUM PLASMA/WH L BLD BLOOD 69463 ZACK DIXON COUNT 2 [facility] COMPLETE INC INC AUTO&AUTO DIFRNTL WBC URNLS DIP 67319 ZACK DIXON 2 [facility] STICK/TAB INC INC LET REAGENT AUTO MICROSCOP Y 25 27757 ZACK DIXON HYDROXY 2 [facility] INCLUDES INC [place] [address] ZACK DIXON PARATHORM 2 [facility] ONE INC INC COLLECTIO 98202 ZACK DIXON N VENOUS 2 [facility] BLOOD INC INC VENIPUNCT URE CREATININ 66313 ZACK DIXON E OTHER 2 [facility] SOURCE INC INC DXA BONE 39761 ZACK DIXON DENSITY 2 [facility] STUDY 1/> INC INC SITES AXIAL [...] W/POS EQUIPME EQUIPME ARWAY PRESSURE DEVICE MYOCARDIA 97774 [facility] SPECT 2 [facility] MULTIPLE CARDIOLOG STUDIES Y CLINIC CV STRS 75555 ZACK ZAPATA TST 2 [facility] XERS&/OR HOSPITAL RX CONT P ECG I&R ONLY CV STRS 09233 [facility] TST 2 PHYSICIAN XERS&/OR S GROUP RX CONT ECG W/O I&R SUSCEPTIB 63852 ZACK DIXON LTY STDY 2 [facility] ANTIMICRB INC INC IAL MICRO/AGA R DILUTJ POLYSOM 12659 ZACK DIXON 6/>YRS 2 [facility] SLEEP INC INC W/CPAP 4/> ADDL HARSHIL ATTND CULTURE 55172 ZACK DIXON BACTERIAL 2 [facility] INC INC QUANTTATI VE COLONY COUNT URINE CULTURE 94359 ZACK DIXON BCT 2 [facility] ISOL&PRSM INC INC PTV ID ISOLATE EA URINE COLLECTIO 11896 ZACK DIXON N VENOUS 2 [facility] BLOOD INC INC VENIPUNCT URE CREATININ 32192 ZACK DIXON E OTHER 2 [facility] SOURCE INC INC 25 09119 ZACK DIXON HYDROXY 2 [facility] INCLUDES INC [place] [address] ZACK DIXON PARATHORM 2 [facility] ONE INC INC RENAL 78134 ZACK DIXON FUNCTION 2 [facility] PANEL INC INC PROTEIN 84693 ZACK DIXON XCPT 2 [facility] REFRACTOM INC INC ETRY SERUM PLASMA/WH L BLD BLOOD 25597 ZACK ZACK COUNT 2 [facility] COMPLETE INC INC AUTO&AUTO DIFRNTL WBC URNLS DIP 22014 ZACK DIXON 2 [facility] STICK/TAB INC INC LET REAGENT AUTO MICROSCOP Y BLD GLU A4253 REID GLASSRELL TEST/REAG 2 HOME HOME T [facility] BLD EQUIPME EQUIPME GLU MON-50 LANCETS A4259 REID REID PER BOX 2 HOME HOME OF 100 MEDICAL MEDICAL EQUIPME EQUIPME POLYSOM 25178 ESTIVEN JEAN-BAPTISTE 6/>YRS 2 [facility] LEIGHTON SLEEP 4/> ADDL HARSHIL ATTND POLYSOM 34917 ZACK ELLIOTTON 6/>YRS 2 [facility] SLEEP 4/> INC INC ADDL HARSHIL ATTND ECG 20463 EMEKA SHIN ROUTINE 2 EMERGENCY III NANCY ECG SERVICES W/LEAST 12 LDS I&R ONLY RADEX 51349 [place] SPINE 2 MEDICAL MELIDA LUMBOSACR IMAGING AL ASS MINIMUM 4 VIEWS CREATINE 11229 ZACK DIXON KINASE MB 2 [facility] [place] [address] ZACK DIXON TROPONIN 2 [facility] QUANTITAT INC INC MARIBEL BLOOD 31498 ZACK ELLIOTTON COUNT 2 [facility] COMPLETE INC INC AUTO&AUTO DIFRNTL WBC URNLS DIP 83512 ZACK DIXON 2 [facility] STICK/TAB INC INC LET REAGENT AUTO MICROSCOP Y RADEX 88216 [place] SPINE 2 MEDICAL MELIDA THORACIC IMAGING 3 VIEWS ASS CREATINE 47270 ZACK DIXON KINASE 2 [facility] TOTAL INC INC 3D 52022 ZACK DIXON RENDERING 2 [facility] W/INTERP INC INC & POSTPROCE SS SUPERVISI ON ECG 93383 ZACK DIXON ROUTINE 2 [facility] ECG INC INC W/LEAST 12 LDS TRCG ONLY W/O I&R BASIC 46240 ZACK DIXON METABOLIC 2 [facility] PANEL INC INC CALCIUM TOTAL RADIOLOGI 46491 ZACK DIXON C 2 [facility] EXAMINATI INC [place] [address] ZACK DIXON HEAD/BRAI 2 [facility] N W/O INC INC CONTRAST MATERIAL IRON 69677 ZACK DIXON BINDING 2 [facility] CAPACITY INC INC 25 32572 ZACK DIXON HYDROXY 2 [facility] INCLUDES INC [place] [address] ZACK DIXON FERRITIN 2 [facility] [place] [address] ZACK DIXON PARATHORM 2 [facility] [place] [address] ZACK DIXNO PHOSPHORU 2 [facility] S INC INC INORGANIC IRRIGAJ 13216 ZACK DIXON IMPLNTD 2 [facility] VENOUS INC INC ACCESS DRUG DELIVERY SYST BASIC 63526 ZACK DIXON METABOLIC 2 [facility] [place] [address] ZACK DIXON BLOOD/URI 2 [facility] C ACID INC INC CYANOCOBA 28963 ZACK DIXON SOHA 2 [facility] VITAMIN INC INC B-12 RADEX 53522 ZACK DIXON SPINE 2 [facility] CERVICAL INC [place] 6 [place] [address] ZACK DIXON FOLIC 2 [facility] [place] [address] ZACK DIXON IRON 2 [facility] INC INC RADIOLOGI 30111 ZACK DIXON C EXAM 2 [facility] SKULL INC INC COMPLETE MINIMUM 4 VIEWS GLUC BLD 98965 ZACK DIXON GLUC MNTR 2 [facility] DEV INC INC CLEARED FDA SPEC HOME USE GLUC BLD 37536 ZACK DIXON GLUC MNTR 2 [facility] DEV INC INC CLEARED FDA SPEC HOME USE BLOOD 03592 ZACK DIXON COUNT 2 [facility] COMPLETE INC INC AUTO&AUTO DIFRNTL WBC NONINVASI 21150 ZACK DIXON VE 2 [facility] EAR/PULSE INC INC OXIMETRY SINGLE [facility] G0378 ZACKSHANDA DIXON OBSERVATI 2 [facility] ON INC INC SERVICE PER HOUR BASIC 89887 ZACK DIXON METABOLIC 2 [facility] PANEL INC INC CALCIUM TOTAL BASIC 99314 ZACK ZACK METABOLIC 2 [facility] PANEL INC INC CALCIUM TOTAL CREATINE 61834 ZACK DIXON KINASE 2 [facility] TOTAL INC INC ECG 45474 ZACK DIXON ROUTINE 2 [facility] ECG INC INC W/LEAST 12 LDS TRCG ONLY W/O I&R TECHNETIU A9540 ZACK Flanagan TC-99M 2 [facility] MAA DX INC INC STDY DOSE UP TO 10 MCI TECHNETIU A9567 ZACK Flanagan TC-99M 2 [facility] PENTETATE INC INC DX AEROSOL TO [facility] G0378 ZACK DIXON OBSERVATI 2 [facility] ON INC INC SERVICE PER HOUR NONINVASI 67682 ZACK DIXON VE 2 [facility] EAR/PULSE INC INC OXIMETRY SINGLE DETER CREATINE 73251 ZACK DIXON KINASE MB 2 [facility] FRACTION INC INC ONLY BLOOD 79861 ZACK DIXON COUNT 2 [facility] COMPLETE INC INC AUTO&AUTO DIFRNTL WBC GLUC BLD 34875 ZACK DIXON GLUC MNTR 2 [facility] DEV INC [place] [address] ZACK DIXON TROPONIN 2 [facility] QUANTITAT INC INC [facility] 52696 [facility] CHEST 2 IMAGING VIEWS ASS FRONTAL&L ATERAL PULMONARY 34001 [facility] 2 [facility] VENTILATI IMAGING ON & ASS PERFUSION IMAGING INITIAL 59084 [facility] 2 PHYSICIAN CARE/DAY S GROUP 50 MINUTES ECG 90474 ZACK MCLEAN ROUTINE 2 [facility] W/LEAST P 12 LDS I&R ONLY ECHO 95535 [facility] 2 DINA MORA 2D CARDIOLOG W/WOM-MOD Y CLINIC E COMPL SPEC&COLR D ECG 72467 EMEKA WILCOX ROUTINE 2 EMERGENCY [facility] ECG SERVICES W/LEAST 12 LDS I&R ONLY RADIOLOGI 30941 [facility] WADE John 2 MEDICAL M[facility] EXAMINATI IMAGING ON CHEST ASS SINGLE VIEW FRONTAL NATRIURET 31727 ZACK DIXON IC 2 [facility] [place] [address] ZACK DIXON TROPONIN 2 [facility] QUANTITAT INC INC MARIBEL BLOOD 68312 ZACK DIXON COUNT 2 [facility] COMPLETE INC INC AUTO&AUTO DIFRNTL WBC SUSCEPTIB 87782 ZACK DIXON LTY STDY 2 [facility] ANTIMICRB INC INC IAL MICRO/AGA R DILUTJ CULTURE 58611 ZACK DIXON BACTERIAL 2 [facility] BLOOD INC INC AEROBIC W/ID ISOLATES COMPREHEN 80996 ZACK DIXON SIVE 2 [facility] METABOLIC INC INC PANEL CREATINE 02902 ZACK DIXON KINASE MB 2 [facility] FRACTION INC INC ONLY URNLS DIP 28732 ZACK DIXON 2 [facility] STICK/TAB INC INC LET REAGENT AUTO MICROSCOP Y THERAPEUT 43850 ZACK DIXON IC 2 [facility] PROPHYLAC INC INC TIC/DX INJECTION SUBQ/IM ECG 30779 ZACK DIXON ROUTINE 2 [facility] ECG INC INC W/LEAST 12 LDS TRCG ONLY W/O I&R FIBRIN 15253 ZACK DIXON DGRADJ 2 [facility] PRODUCTS INC INC D-DIMER QUAL/SEMI BARB CREATINE 97018 ZACK DIXON KINASE 2 [facility] TOTAL INC INC CULTURE 61623 ZACK DIXON BCT 2 [facility] ISOL&PRSM INC INC PTV ID ISOLATE EA URINE CULTURE 38598 ZACK DIXON BACTERIAL 2 [facility] INC INC QUANTTATI VE COLONY COUNT URINE BLD GLU A4253 REID GLASSRELL TEST/REAG 2 HOME HOME T [facility]ICAL HOME BLD EQUIPME EQUIPME GLU MON-50 LANCETS A4259 ERID MATHEWS PER BOX 2 HOME HOME OF 100 MEDICAL MEDICAL EQUIPME EQUIPME HOME [id number] REID MATHEWS BLOOD 2 HOME HOME GLUCOSE MEDICAL MEDICAL MONITOR EQUIPME EQUIPME WALKER [id number] REID MATHEWS FOLDING 2 HOME HOME ADJUSTABL MEDICAL MEDICAL E OR EQUIPME EQUIPME FIXED [facility] [address] [facility] C 2 MEDICAL MELIDA EXAMINATI IMAGING ON CHEST ASS SINGLE VIEW FRONTAL VENOUS 3893 ZACK ELLIOTTON CATHETERI 2 [facility] ZATION INC INC NOT ELSEWHERE CLASSIFIE D RADIOLOGI 17786 [facility] C EXAM 2 MEDICAL MELIDA CHEST 2 IMAGING VIEWS ASS FRONTAL&[place] [address] [facility] RETROPERI 2 MEDICAL MELIDA TONEAL IMAGING REAL TIME ASS W/IMAGE COMPLETE ANTINUCLE 21895 LAB ZOEY LAB ZOEY AR 2 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 [address] COMBINED COMBINED BLOOD/URI 2 PHYSICIAN PHYSICIAN C ACID S LA S LA RHEUMATOI 33674 COMBINED COMBINED D FACTOR 2 PHYSICIAN PHYSICIAN QUALITATI S LA S LA VE SEDIMENTA 71932 COMBINED COMBINED TION RATE 2 PHYSICIAN PHYSICIAN RBC S LA S LA NON-AUTOM ATED CYANOCOBA 41123 COMBINED COMBINED SOHA 2 PHYSICIAN PHYSICIAN VITAMIN S LA S LA B-12 RADIOLOGI 48572 [facility] C 2 MEDICAL MELIDA EXAMINATI IMAGING ON KNEE 3 ASS VIEWS HANDLG&/O 97824 FAMILY STRAWZELL R CONVEY 2 CARE CRI OF SPEC ASSOCIATE FOR TR S, PSC OFFICE TO LAB BLOOD 02531 FAMILY STRAWZELL COUNT 2 CARE CRI COMPLETE ASSOCIATE AUTO&AUTO S, PSC DIFRNTL WBC RADIOLOGI 71493 [place] [facility] C EXAM 2 MEDICAL MELIDA CHEST 2 IMAGING VIEWS ASS FRONTAL&L ATERAL COMPREHEN 08769 COMBINED COMBINED SIVE 2 PHYSICIAN PHYSICIAN METABOLIC S LA S LA PANEL COLLECTIO 60782 FAMILY STRAWZELL N VENOUS 2 CARE CRI BLOOD ASSOCIATE VENIPUNCT S, PSC URE HANDLG&/O 52218 FAMILY STRAWZELL R CONVEY 2 CARE CRI OF SPEC ASSOCIATE FOR TR S, PSC OFFICE TO LAB HEMOGLOBI 75833 FAMILY STRAWZELL N 2 CARE CRI GLYCOSYLA ASSOCIATE ALEX A1C S, PSC LIPID 86863 FAMILY STRAWZELL PANEL 2 CARE CRI ASSOCIATE S, PSC COLLECTIO 51254 FAMILY STRAWZELL N VENOUS 2 CARE CRI BLOOD ASSOCIATE [place], [place] [address] COMBINED COMBINED THYROID 2 PHYSICIAN PHYSICIAN STIMULATI S LA S LA NG HORMONE TSH COMPREHEN 59006 COMBINED COMBINED SIVE 2 PHYSICIAN PHYSICIAN METABOLIC S LA S LA PANEL 25 20249 COMBINED COMBINED HYDROXY 2 PHYSICIAN PHYSICIAN INCLUDES S LA S LA FRACTIONS IF PERFORMED DUP-SCAN 14074 ZACK DIXON XTR VEINS 2 [facility] INC INC UNILATERA L/LIMITED STUDY RADIOLOGI 70225 ZACK DIXON C EXAM 2 [facility] CHEST 2 INC INC VIEWS FRONTAL&L ATERAL COLLECTIO 43045 ZACK DIXON N VENOUS 2 [facility] BLOOD INC INC VENIPUNCT URE URNLS DIP 45224 ZACK DIXON 2 [facility] STICK/TAB INC INC LET REAGENT AUTO MICROSCOP Y BLOOD 60889 ZACK DIXON COUNT 2 [facility] COMPLETE INC INC AUTO&AUTO DIFRNTL WBC HEPATIC 91587 ZACK DIXON FUNCTION 2 [facility] PANEL INC INC RENAL 39982 ZACK DIXON FUNCTION 2 [facility] PANEL INC INC DEBRIDEME 35250 PAWSAT PAWSAT NT NAIL 2 MAR MAR ANY METHOD 1-5 THERAPEUT 64831 ZACK DIXON IC 1 [facility] PROPHYLAC INC INC TIC/DX INJECTION SUBQ/IM BASIC 31157 ZACK DIXON METABOLIC 1 [facility] PANEL INC INC CALCIUM TOTAL COLLECTIO 69169 ZACK DIXON N VENOUS 1 [facility] BLOOD INC INC VENIPUNCT URE BASIC 30079 ZACK DIXON METABOLIC 1 [facility] PANEL INC INC CALCIUM TOTAL COLLECTIO 85609 ZACK DIXON N VENOUS 1 [facility] BLOOD INC INC VENIPUNCT URE THERAPEUT 07786 ZACK DIXON IC 1 [facility] PROPHYLAC INC INC TIC/DX INJECTION SUBQ/IM PROTEIN 90881 ZACK DIXON ELECTROPH 1 [facility] ORETIC INC INC FRACTJ&[place] [address] ZACK DIXON PARATHORM 1 [facility] ONE INC INC 25 99979 ZACK DIXON HYDROXY 1 [facility] INCLUDES INC INC FRACTIONS IF PERFORMED CREATININ 91383 ZACK DIXON E OTHER 1 [facility] SOURCE INC INC COLLECTIO 75899 ZACK DIXON N VENOUS 1 [facility] BLOOD INC INC VENIPUNCT URE URNLS DIP 54489 ZACK DIXON 1 [facility] STICK/TAB INC INC LET REAGENT AUTO MICROSCOP Y BLOOD 90847 ZACK DIXON COUNT 1 [facility] COMPLETE INC INC AUTO&AUTO DIFRNTL WBC PROTEIN 74555 ZACK DIXON XCPT 1 [facility] REFRACTOM INC INC ETRY SERUM PLASMA/WH L BLD RENAL 30035 ZACK DIXON FUNCTION 1 [facility] PANEL INC INC BASIC 42702 ZACK DIXON METABOLIC 1 [facility] PANEL INC INC CALCIUM TOTAL COLLECTIO 71201 ZACK DIXON N VENOUS 1 [facility] BLOOD INC INC VENIPUNCT URE INJECTION J1030 [facility] DNISOLONE PSC ACETATE 40 MG RADIOLOGI 98549 ZACK ELLIOTTON C EXAM 1 [facility] BOTH INC INC KNEES STANDING ANTEROPOS T ARTHROCEN 76928 [place] SON TESIS 1 [facility] J MAJOR PSC JT/BURSA W/O US DXA BONE 39932 ZACK DIXON DENSITY 1 [facility] STUDY 1/> INC INC SITES AXIAL SKEL OPHTH 03145 ARYAN PETERS [facility] MEDICAL 1 VISION XM&EVAL COMPRHNSV ESTAB PT 1/> [place] 33124 ZACK DIXON RETROPERI 1 [facility] TONEAL INC INC REAL TIME W/IMAGE COMPLETE NON-INVAS 66960 ZACK DIXON MARIBEL 1 [facility] PHYSIOLOG INC INC IC STUDY EXTREMITY 3 [place] [address] COMBINED COMBINED PHOSPHORU 1 PHYSICIAN [place] [address] COMBINED COMBINED PARATHORM 1 PHYSICIAN PHYSICIAN ONE S LA S LA 25 94380 COMBINED COMBINED HYDROXY 1 PHYSICIAN PHYSICIAN INCLUDES S LA S LA FRACTIONS IF PERFORMED BASIC 99209 COMBINED COMBINED METABOLIC 1 PHYSICIAN PHYSICIAN PANEL S LA S LA CALCIUM TOTAL LANCETS A4259 REID MATHEWS PER BOX 1 HOME MED HOME MED OF 100 EQUIP. L EQUIP. L BLD GLU A4253 REID MATHEWS TEST/REAG 1 HOME MED HOME MED T STRIPS EQUIP. L [place]QUIP. [place] [address] ZACK DIXON ABDOMEN 1 [facility] W/[place] [address] ZACK DIXON UREA 1 [facility] NITROGEN INC INC QUANTITAT MARIBEL COLLECTIO 15220 ZACK ZACK N VENOUS 1 [facility] BLOOD INC INC VENIPUNCT URE 3D 29781 ZACK DXION RENDERING 1 [facility] INC INC W/INTERP& POSTPROC DIFF WORK STATION CREATININ 39322 ZACK DIXON E BLOOD 1 [facility] INC INC TECHNETIU A9537 ZACK DIXON M TC-99M 1 [facility] MEBROFENI INC INC N DX UP TO 15 MCI HEPATBL 61193 ZACK DIXON DUX SYS 1 [facility] [place] [address] LIZZ BRIANUTCHER ABDOMINAL 1 MEDICAL MELIDA REAL IMAGING TIME ASS W/IMAGE LIMITED COLLECTIO 60462 COMBINED COMBINED N VENOUS 1 PHYSICIAN PHYSICIAN BLOOD S LA S LA VENIPUNCT URE COMPREHEN 29558 COMBINED COMBINED SIVE 1 PHYSICIAN PHYSICIAN METABOLIC S LA S LA PANEL COLLECTIO 45387 FAMILY MULBERRY N VENOUS 1 CARE NILO BLOOD ASSOCIATE VENIPUNCT S URE HEMOGLOBI 15886 FAMILY MULBERRY N 1 CARE NILO GLYCOSYLA ASSOCIATE ALEX A1C S BLOOD 42222 FAMILY MULBERRY COUNT 1 CARE NILO COMPLETE ASSOCIATE AUTO&[place] [address] COMBINED COMBINED THYROID 1 PHYSICIAN PHYSICIAN STIMULATI [place] [address] COMBINED COMBINED AMYLASE 1 PHYSICIAN PHYSICIAN S LA S LA COMPREHEN 08081 COMBINED COMBINED SIVE 1 PHYSICIAN PHYSICIAN [place] [address] LAB ZOYE LAB ZOEY LIPASE 1 [employer] RADIOLOGI 29659 ZACK DIXON C EXAM 1 [facility] CHEST 2 INC INC VIEWS FRONTAL&L ATERAL BASIC 39352 COMBINED COMBINED METABOLIC 1 PHYSICIAN PHYSICIAN PANEL S LA S LA CALCIUM TOTAL COLLECTIO 40862 FAMILY BRENDAN J N VENOUS 1 CARE BLOOD [place] [address] ZACK DIXON STREPTOCO 0 [facility] CCUS INC INC GROUP A PRESSURIZ 27108 ZACK DIXON ED/NONPRE 0 [facility] SSURIZED INC INC INHALATIO N TREATMENT RADIOLOGI 12659 ZACK DIXON C EXAM 0 [facility] CHEST 2 INC INC VIEWS FRONTAL&L ATERAL URNLS DIP 10323 ZACK DIXON 0 [facility] STICK/TAB INC INC LET REAGENT AUTO MICROSCOP Y IAADI 98413 ZACK DIXON INFFLUENZ 0 [facility] A A VIRUS INC INC IAADI 25991 ZACK DIXON INFLUENZA 0 [facility] [place] [address] COMBINED COMBINED THYROID 0 PHYSICIAN PHYSICIAN STIMULATI S LA S LA NG HORMONE TSH COMPREHEN 76362 COMBINED COMBINED SIVE 0 PHYSICIAN PHYSICIAN METABOLIC S LA S LA PANEL COLLECTIO 67803 FAMILY FAMILY N VENOUS 0 CARE CARE BLOOD ASSOCIATE ASSOCIATE VENIPUNCT S S URE FUNDUS 48633 PETERS LANNY PETERS LANNY PHOTOGRAP 0 HY W/INTERPR ETATION & REPORT OPHTH 50905 LORRAINE PETERS LANNY MEDICAL 0 XM&EVAL COMPRHNSV ESTAB PT 1/> DIAB ONLY A5500 [facility]LL[facility] WELLNESS FIT CSTM 0 LIFE LIFE PREP&SPL SYSTEMS SYSTEMS [employer] DNSITY INSRT FOR DIAB A5513 WELLNESS WELLNESS ONLY MX 0 LIFE LIFE DNSITY SYSTEMS [employer] CSTM MOLD CSTM EA RADIOLOGI 90716 ZACK ZACK C 0 [facility] EXAMINATI INC INC ON ANKLE 2 VIEWS WALKING L4360 [employer] BOOT 0 TECHNOLOG TECHNOLOG PNEUMATC IES INC IES INC &/ VACUUM PREFAB CUSTM FIT RADIOLOGI 17085 ZACK ELLIOTTON C 0 [facility] EXAMINATI INC INC ON ANKLE 2 VIEWS RADEX 73460 [place] [facility] FOOT 0 MEDICAL MELIDA COMPLETE IMAGING MINIMUM 3 ASS VIEWS RADIOLOGI 96047 ZACK ELLIOTTON C 0 [facility] EXAMINATI INC INC ON FOOT 2 VIEWS RADEX 40682 [place] FOOT 0 MEDICAL MELIDA COMPLETE IMAGING MINIMUM 3 ASS VIEWS RADIOLOGI 35437 [place] [facility] C 0 MEDICAL MELIDA EXAMINATI IMAGING ON PELVIS ASS 1/2 VIEWS RADEX 62796 [place] CALCANEUS 0 MEDICAL MELIDA MINIMUM IMAGING 2 VIEWS ASS RADIOLOGI 14404 [place] C 0 MEDICAL MELIDA EXAMINATI IMAGING ON TIBIA ASS & FIBULA 2 [place] [address] [facility] PETTEY 0 PHYSICIAN JAM CALCANEAL S GROUP FRACTURE W/[place] [address] EMEKA WILCOX 0 EMERGENCY CHIDI CALCANEAL SERVICES FRACTURE W/O MANIPULAT ION GROUND A0425 [facility] MILEAGE 0 AMBULANCE AMBULANCE PER SERVICE SERVICE STATUTE MILE AMBULANCE A0429 [facility] SERVICE 0 AMBULANCE AMBULANCE BLS SERVICE SERVICE EMERGENCY TRANSPORT HEMOGLOBI 11777 FAMILY MULBERRY N 0 CARE NILO GLYCOSYLA ASSOCIATE ALEX Sifuentes S BLOOD 64983 FAMILY MULBERRY COUNT 0 CARE NILO COMPLETE ASSOCIATE AUTO&AUTO S DIFRNTL WBC PPSV23 10372 FAMILY FAMILY VACCINE 2 0 CARE CARE YRS OR ASSOCIATE ASSOCIATE OLDER FOR S S SUBQ/IM USE ADMINISTR G0009 FAMILY LOGANBERRY ATION OF 0 CARE NILO PNEUMOCOC ASSOCIATE JORDYN S VACCINE COLLECTIO 14931 FAMILY MULBERRY N VENOUS 0 CARE NILO BLOOD ASSOCIATE VENIPUNCT S [facility] GLUCOSE 61448 FAMILY MULBERRY POST 0 CARE NILO GLUCOSE ASSOCIATE DOSE S 25 68134 LAB ZOEY LAB ZOEY HYDROXY 0 AMERIC AMERIC INCLUDES HOLD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 IF PERFORMED CYANOCOBA 13690 COMBINED COMBINED SOHA 0 PHYSICIAN PHYSICIAN VITAMIN S LAB S LAB B-12 [place] [address] COMBINED COMBINED FERRITIN 0 PHYSICIAN PHYSICIAN S LAB S LAB LIPID 75378 COMBINED COMBINED PANEL 0 PHYSICIAN PHYSICIAN S LAB S LAB COMPREHEN 60419 COMBINED COMBINED SIVE 0 PHYSICIAN PHYSICIAN [place]AB[place] [address] COMBINED COMBINED FOLIC 0 PHYSICIAN PHYSICIAN [place] [address] COMBINED COMBINED IRON 0 PHYSICIAN PHYSICIAN S LAB S LAB COLLECTIO 58144 FAMILY MULBERRY, N VENOUS 0 CARE CLEO T BLOOD ASSOCIATE VENIPUNCT S URE BLOOD 20622 FAMILY MULBERRY, COUNT 0 CARE CLEO T COMPLETE ASSOCIATE AUTO&AUTO S DIFRNTL WBC HEMOGLOBI 06454 FAMILY MULBERRY, N 0 CARE CLEO T GLYCOSYLA ASSOCIATE ALEX A1C S BASIC 03999 COMBINED COMBINED METABOLIC 0 PHYSICIAN PHYSICIAN PANEL S LAB S LAB CALCIUM TOTAL BLOOD 48903 FAMILY MULBERRY, COUNT 0 CARE CLEO T COMPLETE ASSOCIATE AUTO&AUTO S DIFRNTL WBC COLLECTIO 93998 FAMILY MULBERRY, N VENOUS 0 CARE CLEO T BLOOD ASSOCIATE VENIPUNCT [facility] 33423 FAMILY MULBERRY, DISCHARGE 0 CARE CLEO T DAY ASSOCIATE MANAGEMEN S T > 30 MIN LANCETS A4259 REID MATHEWS PER BOX 0 HOME MED HOME MED OF 100 EQUIP. EQUIP. LLC [facility] BLD GLU A4253 REID REID TEST/REAG 0 HOME MED HOME MED T STRIPS EQUIP. EQUIP. HOME BLD LLC LLC GLU RADIOLOGI 95555 LIZZ John EPPS EXAM 0 MEDICAL XAVI Mcdonald CHEST 2 IMAGING VIEWS ASSOCIATE FRONTAL&L S ATERAL SBSQ 30119 [facility] 0 CARE CLEO T CARE/DAY ASSOCIATE 25 S MINUTES INTRO 73991 EMEKA WILCOX, NEEDLE/IN 0 EMERGENCY [facility] TRACAT SERVICES EX[place]REM[place] [address] [facility] WADE, PART VNTJ 0 MEDICAL RAYMUNDO IMG IMAGING AERSL ASSOCIATE 1/NON DESTRUCTIVE TESTER S PRJCJ INITIAL 10206 [facility] 0 CARE CLEO T CARE/DAY ASSOCIATE 50 S MINUTES ECG 17653 ZACK BARRETO, ROUTINE 0 [facility] W/LEAST PROF SERV 12 LDS I&R ONLY ECHO 34785 [facility] DORITA, [facility] R-T 0 PHYSICIAN MINNA [place] GROUP W/WOM-MOD E COMPL SPEC&COLR D RADIOLOGI 93617 LIZZ John WADE EXAM 0 MEDICAL RAYMUNDO CHEST 2 IMAGING VIEWS ASSOCIATE FRONTAL&L S ATERAL AMB A0427 [facility] SERVICE 0 AMBULANCE AMBULANCE ALS SERVICE SERVICE EMERGENCY TRANSPORT LEVEL 1 GROUND A0425 [facility] MILEAGE 0 AMBULANCE AMBULANCE PER SERVICE SERVICE STATUTE MILE IAADIADOO [address] [place] [address] CARE CLEO T STREPTOCO ASSOCIATE CCUS S GROUP A ORTHOPANT 91484 ZACK DIXON OGRAM 0 [facility] INC INC RENAL 68570 ZACK DIXON FUNCTION 0 [facility] PANEL INC INC COLLECTIO 76860 ZACK DIXON N VENOUS 0 [facility] BLOOD INC INC VENIPUNCT URE NORMAL A4256 DIABETES DIABETES LOW AND 0 CARE CLUB CARE [facility] CALIBRATO R SOLUTION/ CHIPS BLD GLU A4253 DIABETES DIABETES TEST/REAG 0 CARE CLUB CARE CLUB T STRIPS [facility] LLC HOME BLD GLU MON-50 LANCETS A4259 DIABETES DIABETES PER BOX 0 CARE CLUB CARE CLUB OF 100 LLC LLC RENAL 16965 ZACK DIXON FUNCTION 9 [facility] PANEL INC INC COLLECTIO 85166 ZACK DIXON N VENOUS 9 [facility] BLOOD INC INC VENIPUNCT URE ELECTRIC E0215 DIABETES DIABETES HEAT PAD 9 CARE CLUB CARE CLUB [facility] LLC LLC LANCETS A4259 DIABETES DIABETES PER BOX 9 CARE CLUB CARE CLUB OF 100 LLC LLC NORMAL A4256 DIABETES DIABETES LOW AND 9 CARE CLUB CARE CLUB [facility]IGH [facility] LLC CALIBRATO R SOLUTION/ CHIPS BLD GLU A4253 DIABETES DIABETES TEST/REAG 9 CARE CLUB CARE CLUB T STRIPS [facility] LLC HOME BLD GLU ANTISTREP 50765 ZACK DIXON TOLYSIN O 9 [facility] SCREEN INC INC URNLS DIP 33438 ZACK DIXON 9 [facility] STICK/TAB INC [place] [address] [place] [facility] RETROPERI 9 MEDICAL RAYMUNDO TONEAL IMAGING REAL TIME ASSOCIATE W/IMAGE S COMPLETE RENAL 71411 ZACK ZACK FUNCTION 9 [facility] PANEL INC INC SUSCEPTIB 11180 ZACK DIXON LTY STDY 9 [facility] ANTIMICRB INC INC IAL MICRO/AGA R DILUTJ COLLECTIO 57874 ZACKSHANDA ELLIOTTON N VENOUS 9 [facility] BLOOD INC INC VENIPUNCT URE COMPLEMEN 92698 ZACK DIXON T 9 [facility] FUNCTIONA INC [place] [address] ZACK DIXON BLOOD/URI 9 [facility] C ACID INC INC ANTINUCLE 30645 ZACK DIXON AR 9 [facility] ANTIBODIE INC INC S YUNG CULTURE 61134 ZACK DIXON BACTERIAL 9 [facility] INC INC QUANTTATI VE COLONY COUNT URINE CULTURE 99748 ZACK DIXON BCT 9 [facility] ISOL&PRSM INC INC PTV ID ISOLATE EA URINE BASIC 39795 ZACK DIXON METABOLIC 9 [facility] PANEL INC INC CALCIUM TOTAL COLLECTIO 71798 ZACK DIXON N VENOUS 9 [facility] [place] [address] ZACK DIXON THYROID 9 [facility] STIMULATI INC INC NG HORMONE TSH COMPREHEN 96543 ZACK DIXON SIVE 9 [facility] METABOLIC INC INC PANEL COLLECTIO 39095 ZACK DIXON N VENOUS 9 [facility] BLOOD INC INC VENIPUNCT URE BLOOD 97642 ZACK DIXON COUNT 9 [facility] COMPLETE INC INC AUTO&AUTO DIFRNTL WBC NORMAL A4256 DIABETES DIABETES LOW AND 9 CARE CLUB CARE CLUB [facility] CALIBRATO R SOLUTION/ CHIPS BLD GLU A4253 DIABETES DIABETES TEST/REAG 9 CARE CLUB CARE CLUB T STRIPS [facility] HOME BLD GLU MON-50 LANCETS A4259 DIABETES DIABETES PER BOX 9 CARE CLUB CARE CLUB OF 100 [facility] LLC REPL KIM A4235 DIABETES DIABETES LITHIUM 9 CARE CLUB CARE CLUB MED NECES [facility] LIBERTY BG MON OWN PT EA SPRING-PO A4258 DIABETES DIABETES WERED 9 CARE CLUB CARE CLUB DEVICE [facility] FOR LANCET E[facility] OPHTH 07121 PETERS, PETERS, MEDICAL 9 GEE A GEE A XM&EVAL COMPRHNSV ESTAB PT 1/> COLLECTIO 33741 FAMILY MULBERRY, N VENOUS 9 CARE CLEO T BLOOD ASSOCIATE VENIPUNCT S URE HEMOGLOBI 70643 COMBINED COMBINED N 9 PHYSICIAN PHYSICIAN GLYCOSYLA S LAB S LAB ALEX A1C CREATININ 75840 FAMILY MULBERRY, E OTHER 9 CARE CLEO T SOURCE ASSOCIATE S ALBUMIN 16702 FAMILY MULBERRY, URINE 9 CARE CLEO T MICROALBU ASSOCIATE MIN S SEMIQUANT ITATIVE LANCETS A4259 DIABETES DIABETES PER BOX 9 CARE CLUB CARE CLUB OF 100 [facility] LLC NORMAL A4256 DIABETES DIABETES LOW AND 9 CARE CLUB CARE [facility] CALIBRATO R SOLUTION/ CHIPS BLD GLU A4253 DIABETES DIABETES TEST/REAG 9 CARE CLUB CARE CLUB T STRIPS [facility] LLC HOME BLD GLU MON-50 BLD GLU A4253 DIABETES DIABETES TEST/REAG 8 CARE CLUB CARE CLUB T STRIPS LLC LLC HOME BLD GLU MON-50 LANCETS A4259 DIABETES DIABETES PER BOX 8 CARE CLUB CARE CLUB OF 100 [facility] NORMAL A4256 DIABETES DIABETES LOW AND 8 CARE CLUB CARE CLUB [facility] CALIBRATO R SOLUTION/ CHIPS MANUAL 17269 PROFESSIO CROSSFIEL THERAPY 8 NAL REHAB D, TQS 1/> ASSOC DANNITA REGIONS PSC EACH 15 MINUTES THERAPEUT 85606 PROFESSIO CROSSFIEL IC PX 1/> 8 NAL REHAB D, AREAS ASSOC DANNITA EACH 15 PSC MIN EXERCISES THERAPEUT 18863 PROFESSIO CROSSFIEL ACTVITY 8 NAL REHAB D, DIRECT PT ASSOC DANNITA CONTACT PSC EACH 15 MIN CANE E0105 REID MATHEWS QUAD/3-OK 8 HOME MED HOME MED GABINO ALL EQUIP. EQUIP. [facility] ADJUSTBL/ FIX W/TIPS THERAPEUT 91725 PROFESSIO CROSSFIEL IC PX 1/> 8 NAL REHAB D, AREAS ASSOC DANNITA EACH 15 PSC MIN EXERCISES PHYSICAL 14876 PROFESSIO CROSSFIEL THERAPY 8 NAL REHAB D, EVALUATIO ASSOC DANNITA N PSC MANUAL 27189 PROFESSIO CROSSFIEL THERAPY 8 NAL REHAB D, TQS 1/> ASSOC DANNITA REGIONS PSC EACH 15 MINUTES RADEX HIP 85006 ZACK DIXON 8 [facility] UNILATERA INC INC L COMPLETE MINIMUM 2 VIEWS RADEX 88462 ZACK DIXON SPINE 8 [facility] LUMBOSACR INC INC AL MINIMUM 4 VIEWS Encounters Encounter Start End Date Code Location Performer Type Date EMERGENCY 61099 RUDY JOINER DEPT 7 7 PHYSICIAN VISIT S, [facility] HIGH SEVERITY& THREAT [facility] ZACK - 7 7 [facility] INPATIENT [facility] ZACK - 6 6 [facility] OUTPATIEN INC T OFFICE 37097 CAMERON GORDILLO OUTPATIEN 6 6 MEDICAL T VISIT SERV 25 FOUNDATIO MINUTES N EMERGENCY 25494 ZACK DEPT 6 6 [facility] VISIT INC HIGH SEVERITY& THREAT [facility] ZACK - 6 6 [facility] OUTPATIEN INC T HOSPITAL ZACK - OTHER 6 6 [facility] INC OFFICE 14370 [place] ERIBERTO GORDILLO OUTPATIEN 6 6 MEDICAL T VISIT SERV 25 FOUNDATIO MINUTES N HOSPITAL ZACK - OTHER 6 6 [facility] INC OFFICE 63999 [place] WILL OUTPATIEN 6 6 [facility] [place] T VISIT INTERNAL 15 MEDI MINUTES EMERGENCY 46665 RUDY CYR [facility] DEPT 6 6 PHYSICIAN VISIT S, [facility] HIGH SEVERITY& THREAT [facility] ZACK - 6 6 [facility] OUTPATIEN INC T EMERGENCY 49931 ZACK 6 6 [facility] DEPARTMEN INC T VISIT HIGH/URGE NT SEVERITY OFFICE 20484 [place] VINAY OUTPATIEN 6 6 [facility] T VISIT INTERNAL 15 MED MINUTES EMERGENCY 62101 RUDY WILCOX 6 6 PHYSICIAN CHIDI DEPARTMEN [facility] T VISIT HIGH/URGE NT SEVERITY EMERGENCY 74323 ZACK 6 6 [facility] DEPARTMEN INC T VISIT MODERATE SEVERITY HOSPITAL ZACK - 6 6 [facility] OUTPAT[facility] T - [facility] INPATIENT 6 6 [facility] INPATIENT 6 6 [facility] ZACK - 5 5 [facility] OUTPATIEN INC T EMERGENCY 58302 ZACK 5 5 [facility] DEPARTMEN INC T VISIT LOW/MODER SEVERITY - [facility] INPATIENT 5 5 [facility] INPATIENT 5 5 [facility] ZACK - 5 5 [facility] INPATIENT INC OFFICE 05138 ZACK CALDERON OUTPATIEN 5 5 [facility] VISIT 5 HOSPITAL MINUTES HOSPITAL ZACK - 5 5 [facility] OUTPATIEN INC T EMERGENCY 16897 ZACK 5 5 [facility] DEPARTMEN INC T VISIT LIMITED/M INOR PROB OFFICE 50941 ZACK CALDERON OUTPATIEN 5 5 [facility] 10 P MINUTES OFFICE 29130 CAMERON GORDILLO OUTPATIEN 5 5 MEDICAL T VISIT SERV 25 FOUNDATIO MINUTES [facility] ZACK - 5 5 [facility] OUTPATIEN INC [facility] ZACK - 5 5 [facility] OUTPATIEN INC T OFFICE 84588 [place] WILL OUTPATIEN 5 5 [facility] INTERNAL 25 MEDI MINUTES HOSPITAL ZACK - 5 5 [facility] OUTPATIEN INC T OFFICE 19748 ZACK CALDERON OUTPATIEN 5 5 [facility] 15 P MINUTES HOSPITAL ZACK - OTHER 5 5 [facility] INC OFFICE 89613 ZACK CALDERON OUTPATIEN 5 5 [facility] 10 P MINUTES - [facility] INPATIENT 5 5 [facility] OFFICE 48238 CAMERON GORDILLO OUTPATIEN 5 5 MEDICAL T VISIT SERV [address] [facility] - [facility]PATIENT 5 5 [facility] INPATIENT 5 5 [facility] INPATIENT 5 5 [facility] ZACK - 5 5 [facility] INPATIENT INC EMERGENCY 26176 ZACK Dawn 5 5 [facility] T VISIT P LOW/MODER SEVERITY HOSPITAL ZACK - 5 5 [facility] OUTPATIEN [facility] ZACK [facility] 5 5 [facility] OUTPATIEN [facility] OFFICE 48663 CAMERON GORDILLO OUTPATIEN 4 4 MEDICAL T VISIT SERV 25 FOUNDATIO MINUTES [facility] ZACK - 4 4 [facility] OUTPATIEN [facility] EMERGENCY 91766 ZACK 4 4 [facility] VISIT MODERATE SEVERITY EMERGENCY 97456 [facility] DEPT 4 4 ERIC IMT VISIT EMERGENCY HIGH PHYS SEVERITY& THREAT [facility] ZACK - 4 4 [facility] OUTPATIEN [facility] ZACK [facility] OTHER 4 4 [facility] OFFICE [address] [place] ERIBERTO GORDILLO OUTPATIEN 4 4 MEDICAL T VISIT SERV 25 FOUNDATIO MINUTES [facility] ZACK - 4 4 [facility] OUTPATIEN [facility] ZACK [facility] OTHER 4 4 [facility] ZACK [facility] 4 4 [facility] OUTPATIEN [facility] OFFICE 61405 CAMERON GORDILLO OUTPATIMICA 3 3 MEDICAL T VISIT SERV 25 FOUNDATIO MINUTES OFFICE 27602 [facility] 3 3 PHYSICIAN JAM T VISIT S GROUP 15 MINUTES HOSPITAL ZACK - 3 3 [facility] OUTPATIEN [facility] Emergency RIP Shin (ER) 3 08:47 3 09:14 [facility] ZACK - 3 3 [facility] OUTPATIEN [facility] EMERGENCY 56368 EMEKA SHIN 3 3 EMERGENCY III [facility]ANCY DEPART[facility] SERVICES T VISIT HIGH/URGE NT SEVERITY EMERGENCY 92483 ZACK 3 3 [facility] T VISIT LIMITED/M INOR PROB Emergency RIP Shields MD (ER) 3 07:59 3 14:30 [facility] EMERGENCY 75214 ZACK 3 3 [facility] T VISIT HIGH/URGE NT SEVERITY EMERGENCY 09780 EMEKA LIRA DEPT 3 3 EMERGENCY VISIT SERVICES HIGH SEVERITY& THREAT [facility] ZACK - 3 3 [facility] OUT[facility]IEN [facility] [facility] - 3 3 [facility] OUTPATIEN [facility] Z[facility] 3 3 [facility] OUTPATIEN [facility] OFFICE 21182 CAMERON GORDILLO OUTPATIEN 3 3 MEDICAL T VISIT SERV 25 [facility] ZACK - 3 3 [facility] OUTPATIEN [facility] ZACK [facility] 3 3 [facility] OUTPATIEN [facility] Z[facility] 3 3 [facility] OUTPATIEN [facility] Z[facility] 3 3 [facility] OUTPATIEN [facility] Z[facility] 3 3 [facility] OUTPATIEN [facility] Z[facility] - 2 2 [facility] OUT[facility] EMERGENCY 41745 EMEKA CASTELLANO DEPT 2 2 EMERGENCY VISIT SERVICES HIGH SEVERITY& THREAT [facility] ZACK - 2 2 [facility] OUTPATIEN [facility] Z[facility] 2 2 [facility] OFFICE 38038 CAMERON GORDILLO OUTPATIEN 2 2 MEDICAL T [facility]ISIT SERV 25 [facility] ZACK - 2 2 [facility] OUTPATIEN [facility] HOSPITAL ZACK [facility] 2 2 [facility] OUTPATIEN [facility] HOSPITAL ZACK - 2 2 [facility] OUTPATIEN [facility] OFFICE 31937 CAMERON CONNELL 2 2 MEDICAL T VISIT SERV 15 FOUNDATIO MINUTES [facility] ZACK - 2 2 [facility] 2 [facility]ENC[facility] 06336 EMEKA SHIN DEPT 2 2 EMERGENCY III NANCY VISIT SERVICES HIGH SEVERITY& THREAT [facility] EMERGENCY 78086 ZACK 2 2 [facility] T VISIT HIGH/URGE NT SEVERITY [facility]OSPITAL ZACK - 2 2 [facility] 81216 ZACK 2 2 [facility] T VISIT HIGH/URGE NT SEVERITY EMERGENCY 59676 EMEKA WILCOX DEPT 2 2 EMERGENCY CHIDI VISIT SERVICES HIGH SEVERITY& THREAT [facility] ZACK - 2 2 [facility] Z[facility] - 2 2 [facility] INPATIENT [facility] OFFICE 74007 FAMILY STRAWZELL OUTPATIEN 2 2 CARE CRI T VISIT ASSOCIATE 25 S, PSC MINUTES OFFICE 21730 FAMILY STRAWZELL OUTPATIEN 2 2 CARE CRI T VISIT ASSOCIATE 15 S, PSC MINUTES EMERGENCY 00982 EMEKA SHIN 2 2 EMERGENCY III NANCY DEPARTMEN SERVICES T VISIT HIGH/URGE NT SEVERITY EMERGENCY 09354 ZACK 2 2 [facility] T VISIT LOW/MODER SEVERITY [facility]OSPITAL ZACK - 2 2 [facility] OFFICE 05658 CAMERON GORDILLO OUTPATIEN 2 2 MEDICAL T VISIT SERV 25 FOUNDATIO [facility] ZACK - 2 2 [facility] OUTPATIEN [facility] T OFFICE 48157 BELKIS PAWSAT OUTPATIEN 2 2 Aug T NEW 30 MINUTES [facility]OSPITAL ZACK - 1 1 [facility]EN [facility] HOSPITAL ZACK - 1 1 [facility] OUT[facility]IEN INC T OFFICE 30659 [place] OUTPATIEN 1 1 [facility] V[facility] Z[facility] - 1 1 [facility] OUTPATIEN INC EMERGENCY 12785 ZACK 1 1 [facility] DEPARTMEN INC T VISIT MODERATE SEVERITY [facility] - 1 1 [facility] Z[facility] - 1 1 [facility] ZACK [facility] 1 1 [facility] OUT[facility]EN [facility] T OFFICE 00020 [place] OUTPATIEN 1 1 [place] T NEW 45 CLINIC MINUTES [facility] ZACK - 1 1 [facility] OUTPATIEN INC T OFFICE [address]3546 [place] WEISada GORDILLO OUTPATIEN 1 1 MEDICAL T NEW 60 SERV MINUTES [facility] ZACK - 1 1 [facility] OUTPATIEN INC T OFFICE 16867 FAMILY MULYUE OUTPATIEN 1 1 CARE NILO T VISIT ASSOCIATE 40 S MINUTES EMERGENCY 86223 EMEKA WU 1 1 EMERGENCY [facility] SERVICES T VISIT MODERATE SEVERITY [facility] - 1 1 [facility] OUTPATIEN INC EMERGENCY 23655 ZACK 1 1 [facility] DEPARTMEN INC T VISIT LOW/MODER SEVERITY OFFICE 98766 FAMILY MULBERRY OUTPATIEN 1 1 CARE NILO T VISIT ASSOCIATE 25 S MINUTES OFFICE 67480 FAMILY MULBERRY OUTPATIEN 1 1 CARE NILO T VISIT ASSOCIATE 15 S MINUTES HOSPITAL ZACK - 1 1 [facility] OUTPATIEN INC T OFFICE 31504 ANKUSH LECHUGA JR OUTPATIEN 1 1 [facility] ELAINE T NEW 45 MINUTES [facility]OSPITAL ZACK - 1 1 [facility] OUTPATIEN INC T HOSPITAL ZACK [facility] 1 1 [facility] OUTPATIEN [facility] T OFFICE 95515 FAMILY MULYUE OUTPATIEN 1 1 CARE NILO T VISIT ASSOCIATE 25 S MINUTES EMERGENCY 16754 EMEKA CASTELLANO 1 1 EMERGENCY DEPARTMEN SERVICES T VISIT HIGH/URGE NT SEVERITY EMERGENCY 85802 ZACK 1 1 [facility] DEPARTMEN INC T VISIT LOW/MODER SEVERITY [facility]OSPITAL ZACK - 1 1 [facility] OUTPATIEN [facility] T OFFICE 83909 FAMILY BRNEDAN J OUTPATIEN 1 1 CARE T VISIT ASSOCIATE 15 S MINUTES HOSPITAL ZACK - 0 0 [facility] OUTPATIEN INC T EMERGENCY 66763 ZACK 0 0 [facility] DEPARTMEN INC T VISIT LOW/MODER SEVERITY EMERGENCY 18489 EMEKA WILCOX 0 0 EMERGENCY [facility] DEPARTMEN SERVICES T VISIT HIGH/URGE NT SEVERITY OFFICE 30678 FAMILY BRENDAN J OUTPATIEN 0 0 CARE T VISIT ASSOCIATE 15 S MINUTES OFFICE 70670 FAMILY BRENDAN J OUTPATIEN 0 0 CARE T VISIT ASSOCIATE 15 S MINUTES [facility]OSP[facility] - 0 0 [facility] OUTPATIEN INC T OFFICE 98638 FAMILY MULBERRY OUTPATIEN 0 0 CARE NILO T VISIT ASSOCIATE 25 S MINUTES [facility]ACK - 0 0 [facility] OUTPATIEN INC T [facility] ZACK - 0 0 [facility] OUTPATIEN INC T OFFICE 15466 [facility] OUTPATIEN 0 0 PHYSICIAN JAM T NEW 45 S GROUP MINUTES EMERGENCY 07128 ZACK 0 0 [facility] DEPARTMEN INC T VISIT MODERATE SEVERITY EMERGENCY 06585 EMEKA WILCOX 0 0 EMERGENCY [facility] HIGH/URGE NT SEVERITY [facility] Z[facility] - 0 0 [facility] OUTPATIEN INC T OFFICE 23845 FAMILY MULBERRY OUTPATIEN 0 0 CARE NILO T VISIT ASSOCIATE 25 S MINUTES OFFICE 70434 FAMILY MULBERRY, OUTPATIEN 0 0 CARE CLEO T T VISIT ASSOCIATE 15 S MINUTES OFFICE 73366 FAMILY MULBERRY, OUTPATIEN 0 0 CARE CLEO T T VISIT ASSOCIATE 25 S MINUTES OFFICE 74234 FAMILY MULBERRY, OUTPATIEN 0 0 CARE CLEO T T VISIT ASSOCIATE 15 S MINUTES OFFICE 80999 FAMILY MULBERRY, OUTPATIEN 0 0 CARE CLEO T T VISIT ASSOCIATE 25 S MINUTES EMERGENCY 68040 EMEKA WILCOX, DEPT 0 0 EMERGENCY [facility] VISIT SERVICES HIGH SEVERITY& ASSOCIATE THREAT S [facility] ZACK - 0 0 [facility] INPATIENT INC OFFICE 47499 FAMILY MULBERRY, OUTPATIEN 0 0 CARE CLEO T T VISIT ASSOCIATE 15 S MINUTES EMERGENCY 72518 ZACK 0 0 [facility] DEPARTMEN INC T VISIT LOW/MODER SEVERITY [facility] ZACK - 0 0 [facility] OUTPAT[facility]EN INC T [facility] ZACK - 0 0 [facility] OUTPATIEN INC T OFFICE 28893 MEANS BUTROS, OUTPATIEN 9 9 ADULT REVANESAA T VISIT PRIMARY 15 CARE [facility] ZACK - 9 9 [facility] OUTPATIEN INC T OFFICE 08054 MEANS BUTROS, OUTPATIEN 9 9 ADULT REVANESAA T VISIT PRIMARY 25 CARE [facility] ZACK - 9 9 [facility] OUTPATIEN INC T OFFICE 20883 MEANS BUTROS, CONSULTAT 9 9 ADULT REVANESAA ION PRIMARY [facility] 80 MIN [facility] ZACK - 9 9 [facility] OUTPATIEN INC T OFFICE 19777 FAMILY JADA OUTPATIEN 9 9 CARE CLEO T T VISIT ASSOCIATE 15 S MINUTES [facility] ZACK - 9 9 [facility] OUTPATIEN INC T OFFICE 21273 FAMILY LOGANBERRY, OUTPATIEN 9 9 CARE CLEO T T VISIT ASSOCIATE 25 S MINUTES OFFICE 68205 FAMILY JADA OUTPATIEN 9 9 CARE CLEO T T VISIT ASSOCIATE 25 S MINUTES OFFICE 86614 FAMILY TERRENCE OUTPATIEN 8 8 CARE R PADMINI T VISIT ASSOCIATE 25 S MINUTES [facility] ZACK - 8 8 [facility] OUTPATIEN INC T OFFICE 20024 Sameer MARCOS OUTPATIEN 8 8 CARE G T VISIT ASSOCIATE 15 S MINUTES [facility] - 8 8 [facility] OUTPATIEN INC T EMERGENCY 52162 ZACK LINN, 8 8 [facility] T VISIT PROF SERV LOW/MODER SEVERITY EMERGENCY 60654 ZACK 8 8 [facility] T VISIT LIMITED/M INOR PROB [facility] ZACK - 8 8 [facility] OUTPATIEN INC T
--- OUTSIDE RECORDS SUMMARY | 2016-10-20 17:41 | External Medical Summary Rpt ---
Author Author , Organization [employer] Address Unknown Phone Unavailable Care Team Providers Care Ramp Supervisor Name Role Phone CALDERON VALENTINE, CALDERON Unavailable [...] TRACY RODRIGUEZ ALL, RODRIGUEZ ALL Unavailable Unavailable [facility] Unavailable Unavailable SERVICE, [facility] Unavailable Unavailable SERVICE, [facility] BUTROS, REZKALLA, Unavailable Unavailable BUTROS, REZKALLA [facility] Unavailable Unavailable CONSULTANTS O, [facility] Unavailable Unavailable CAMPUS, [facility] Unavailable Unavailable CAMPUS, [facility] [...] S MARISOL ANDREZ, Unavailable Unavailable MARISOL ANDREZ [facility] Unavailable Unavailable INC, [facility] Unavailable Unavailable HOSPITAL P, [facility] P PETERS LANNY, PETERS LANNY Unavailable Unavailable PETERS LANNY, PETERS LANNY Unavailable Unavailable PETERS, GEE A, Unavailable Unavailable PETERS, GEE A [facility], Unavailable Unavailable [facility] JOINER, JOINER Unavailable Unavailable KLARISSA IMT, KLARISSA Unavailable Unavailable IMT [facility] Unavailable Unavailable [facility], [facility] KOTTER JUAN J, KOTTER [...] E [facility] Unavailable Unavailable [facility], [facility] Unavailable Unavailable [facility], [facility] Unavailable Unavailable SERVICES, [facility] MCKEMIE JR NANCY, Unavailable Unavailable MCKEMIE JR NANCY MICH CARLOS, MICH Unavailable Unavailable CARLOS [facility] EPPS P, Unavailable Unavailable [facility] MULBERRY NILO, Unavailable Unavailable MULBERRY NILO MULBERRY, CLEO T, Unavailable Unavailable MULBERRY, CLEO T CROWELL SON, CROWELL SON Unavailable Unavailable [facility] Unavailable Unavailable [facility], [facility] Clemente OCAMPO, Unavailable Unavailable Clemente OCAMPO [...] Unavailable Unavailable EQUIPME, [facility] Unavailable Unavailable EMERGENCY PHYS, [facility]GENC[facility] Unavailable Unavailable CLINIC, [facility] STRAWZELL CRI, Unavailable Unavailable STRAWZELL CRI [facility], Unavailable Unavailable [facility], Unavailable Unavailable [facility] WEI RAND, WEI RAND Unavailable Unavailable WEHRMAN III NANCY, Unavailable Unavailable WEHRMAN III NANCY [facility] Unavailable Unavailable LLC, [facility] ELSA LIRA, ELSA LIRA Unavailable Unavailable Purpose Continuity of Care Document - 11-11-2007 through 2016 Problems Code Diagnosis DOS Provider Status E109 TYPE 1 09-14-2016 [facility] DIABETES PHYS[facility]ANS MELLITUS GROUP WITHOUT COMPLICATIO NS I213 ST 09-14-2016 [facility] ELEVATION PHYSICIANS MYOCARDIAL GROUP INFARCTION UNS SITE I739 PERIPHERAL 09-14-2016 [facility] VASCULAR PHYSICIANS DISEASE GROUP UNSPECIFIED N183 CHRONIC 09-14-2016 [facility] KIDNEY PHYSICIANS DISEASE GROUP STAGE 3 MODERATE E1142 TYPE 2 09-13-2016 [facility] P W/DIAB POLYNEUROPA THY I119 HYPERTENSIV 09-13-2016 [facility] HEART PHYSICIANS, DISEASE PLLC WITHOUT HEART FAILURE I129 HYPERTENSIV 09-13-2016 [facility] CKD [facility] W/STAGE 1-4 INC CKD OR UNS CKD X03837 [facility] [place] 09-13-2016 [facility] COR ART [facility] W/UNSTABLE INC ANGINA PECTORIS I5043 ACUTE ON 09-13-2016 [facility] P SYSTOLIC & DIASTOLIC CHF I773 ARTERIAL 09-13-2016 [facility] FIBROMUSCUL [facility] AR INC DYSPLASIA R0602 SHORTNESS 09-13-2016 [facility] OF BREATH PHYSICIANS GROUP R0689 OTHER 09-13-2016 [facility] ES OF SERVICE BREATHING Z794 USP 09-13-2016 [facility] CURRENT USE [facility] OF INSULIN INC E039 HYPOTHYROID 06-09-2016 [facility] ISM [facility] UNSPECIFIED INC E118 TYPE 2 06-09-2016 [facility] DIABETES [facility] MELLITUS INC W/UNS COMPLICATIO NS E119 TYPE 2 03-21-2016 [facility] DIABETES SERV MELLITUS FOUNDATION WITHOUT COMPLICATIO NS M810 AGE-RELATED 03-21-2016 [facility] MEDICAL SERV OSTEOPOROSI FOUNDATION S W/O CURRNT PATH FX N184 CHRONIC 03-21-2016 [place] [facility] K[facility] SERV DISEASE FOUNDATION STAGE 4 SEVERE N250 RENAL 03-21-2016 [place] [facility] OSTEODYSTRO SERV PHY FOUNDATION N390 URINARY 03-18-2016 [facility]CT PHYSICIANS INFECTION LA SITE NOT SPECIFIED F87115 TYPE 2 02-28-2016 [facility] DIABETES [facility] MELLITUS [facility] P W/HYPOGLYCE VICTORIANO W/O COMA E162 HYPOGLYCEMI 02-28-2016 [facility] A PHYSICIANS, UNSPECIFIED PLLC E876 HYPOKALEMIA 02-28-2016 [facility] INC I10 ESSENTIAL 02-28-2016 [facility] HYPERTENSIO [facility] P N I5032 CHRONIC 02-28-2016 [facility] P HEART FAILURE R410 DISORIENTAT 02-28-2016 [facility] UNSPECIFIED SERVICE Z591 INADEQUATE 02-28-2016 [facility] INC S73278 OTHER LONG 02-28-2016 [facility] TERM [facility] CURRENT INC DRUG THERAPY G4733 OBSTRUCTIVE 02-15-2016 [facility] SLEEP HOME APNEA ADULT MEDICAL PEDIATRIC EQUIPME [id number] MX FX 02-15-2016 [facility] PELVIS STBL HOME DISRUPT MEDICAL PELV RING EQUIPME INIT CHANDRIKA FX I8310 VARICOSE 09-17-2015 [facility] UNS VALLEY LOWER INTERNAL EXTREM MEDI W/INFLAMMAT ION M129 ARTHROPATHY 09-17-2015 [facility] UNSPECIFIED INTERNAL MEDI Z9111 PATIENTS 09-07-2015 [facility] NONCOMPLIAN VALLEY CE WITH INTERNAL DIETARY MEDI REGIMEN N189 CHRONIC 09-05-2015 [facility] KIDNEY PHYSICIANS, DISEASE PLLC UNSPECIFIED R1110 VOMITING 09-05-2015 [place] UNSPECIFIED [facility]ICAL IMAGING ASS R404 TRANSIENT 09-05-2015 [place] ALTERATION MEDICAL OF IMAGING ASS AWARENESS R4182 ALTERED 09-05-2015 [facility] MENTAL PHYSICIANS, STATUS PLLC UNSPECIFIED R464 SLOWNESS 09-05-2015 [facility] RESPONSIVEN SERVICE ESS Q56601 CELLULITIS 08-16-2015 [facility] OF RIGHT VALLEY LOWER LIMB INTERNAL MED V59994 CELLULITIS 08-16-2015 [place] OF LEFT VALLEY LOWER LIMB INTERNAL MED E1021 TYPE 1 08-10-2015 [facility] DIABETES [facility] MELLITUS INC W/DIABETIC NEPHROPATHY E1065 TYPE 1 08-10-2015 [facility] DIABETES [facility] MELLITUS INC WITH HYPERGLYCEM IA E138 OTH SPEC 08-10-2015 [facility] DIABETES PHYSICIANS, MELLITUS PLLC W/UNS COMPLICATIO NS S26963 CELLULITIS 08-10-2015 [facility] OF PHYSICIANS, UNSPECIFIED PLLC PART OF LIMB R739 HYPERGLYCEM 08-10-2015 [facility] UNSPECIFIED SERVICE L853 XEROSIS 08-09-2015 [facility] CUTIS VALLEY INTERNAL MED E6601 MORBID 08-05-2015 [facility] SEVERE VALLEY OBESITY DUE INTERNAL TO EXCESS MEDI CALORIES I270 PRIMARY 07-20-2015 [facility] PULMONARY [facility] HYPERTENSIO C[facility]US N I5030 UNSPECIFIED 07-20-2015 [facility] CONGESTIVE MAUK HEART FAILURE R0600 DYSPNEA 07-20-2015 [facility] M542 CERVICALGIA 07-12-2015 [facility] M546 PAIN IN 07-12-2015 [facility] THORACIC MOBILEX SPINE I509 HEART 07-11-2015 [facility] FAILURE VALLEY UNSPECIFIED INTERNAL MED I8311 VARICOSE 07-11-2015 [place] [facility] RT [place] LOWER INTERNAL EXTREMITY MED W/INFLAMMAT ION M4003 POSTURAL 07-11-2015 [facility] KYPHOSIS [place] CERVICOTHOR INTERNAL ACIC REGION MED R05 COUGH 06-05-2015 [facility] R600 LOCALIZED 05-09-2015 [facility] LAR CONSULTANT[facility] O I348 OTHER 05-05-2015 [place] MEDICAL NONRHEUMATI SERV C MITRAL FOUNDATION VALVE DISORDERS I361 NONRHEUMATI 05-05-2015 [place] [facility] C TRICUSPID SERV VALVE FOUNDATION INSUFFICIEN CY I371 NONRHEUMATI 05-05-2015 [place] [facility] C PULMONARY SERV VALVE FOUNDATION INSUFFICIEN [...] INC ADULT N3020 OTHER 04-28-2015 [facility] CHRONIC [facility] WITHOUT HEMATURIA J209 ACUTE 03-31-2015 [facility] BRONCHITIS [facility] UNSPECIFIED INC G29632 PERSONAL 03-31-2015 [facility] HISTORY OF [facility] NICOTINE INC DEPENDENCE A499 BACTERIAL 03-23-2015 [place] [facility] INFECTION SERV UNSPECIFIED FOUNDATION R279 UNSPECIFIED 03-19-2015 [facility] LACK OF MEM HOS[facility] COORDINATIO INC N Z5189 ENCOUNTER 03-19-2015 [facility] FOR OTHER [facility] SPECIFIED INC AFTERCARE 88003 DIAB W/O 03-17-2015 [facility] COMP TYPE I HOME [JUV] NOT MEDICAL STATED EQUIPME UNCNTRL 07720 OBSTRUCTIVE 03-17-2015 [facility] SLEEP HOME APNEA MEDICAL EQUIPME 51103 MULTIPLE 03-17-2015 [facility] CLOSED HOME PELVIC FX MEDICAL DISRUPT EQUIPME PELVIC [place] TRIBE 2449 UNSPECIFIED 03-10-2015 [facility] HYPOTHYROID INC ISM 30248 DIAB W/O 03-10-2015 [facility] COMP TYPE [facility] II/UNS NOT INC STATED UNCNTRL 5854 CHRONIC 03-10-2015 [facility] KIDNEY [facility] DISEASE INC STAGE IV (SEVERE) 5990 URINARY 03-10-2015 [facility] TRACT [facility] INFECTION INC SITE NOT SPECIFIED 07237 UNSPECIFIED 03-10-2015 [facility] OSTEOPOROSI INC S 4019 UNSPECIFIED 03-02-2015 [facility] ESSENTIAL [place] HYPERTENSIO INTERNAL N MEDI 4541 VARICOSE 03-02-2015 [place] LOWER [place]LEY INTERNAL EXTREMITIES MEDI W/INFLAMMAT ION 16216 UNSPECIFIED 03-02-2015 [place] [place] CONSTIPATIO INTERNAL N MEDI 5939 UNSPECIFIED 03-02-2015 [place] DISORDER VALLEY OF KIDNEY INTERNAL AND URETER MEDI 7823 EDEMA 03-02-2015 [facility] INTERNAL MEDI 02058 UNSPECIFIED 03-02-2015 [place] RETENTION VALLEY OF URINE INTERNAL MEDI 27231 UNSPECIFIED 02-24-2015 [facility] ARTHROPATHY [facility] P MULTIPLE SITES 7813 LACK OF 02-24-2015 [facility] P V571 OTHER 02-24-2015 [facility] PHYSICAL [facility] THERAPY INC 5952 OTHER 02-03-2015 [facility] CYSTITIS [facility] P 2761 HYPOSMOLALI 01-17-2015 [facility] TY AND/OR HEALTH HYPONATREMI CAMPUS A 14764 LEUKOCYTOSI 01-17-2015 [facility] S HEALTH UNSPECIFIED CAMPUS 5849 ACUTE 01-17-2015 [facility] KIDNEY HEALTH FAILURE CAMPUS UNSPECIFIED 7197 DIFFICULTY 01-17-2015 [facility] IN WALKING HEALTH CAMPUS 66859 MUSCLE 01-17-2015 [facility] WEAKNESS HEALTH (GENERALIZE CAMPUS D) 2537 UNSPECIFIED 01-17-2015 [facility] DEBILITY HEALTH CAMPUS 9953 ALLERGY 01-17-2015 [facility] UNSPECIFIED HEALTH NOT CAMPUS ELSEWHERE CLASSIFIED 39318 HTN CKD UNS 12-25-2014 [place] [facility]ICAL W/CKD SERV STAGE I FOUNDATION THRU STAGE IV/UNS 515 POSTINFLAMM 12-16-2014 [facility] ATORY [facility] PULMONARY FIBROSIS V5881 FITTING AND 12-16-2014 [facility] ADJUSTMENT [facility] OF VASCULAR CATHETER 4280 CONGESTIVE 12-09-2014 [facility] HEART [facility] FAILURE UNSPECIFIED 4293 CARDIOMEGAL 12-09-2014 [facility] Y [facility] 1101 DERMATOPHYT 12-04-2014 [facility] OSIS OF E NAIL 18856 DIAB 12-04-2014 [facility] W/PERIPH E CIRC D/O TYPE II/UNS NOT UNCNTRL 4439 UNSPECIFIED 12-04-2014 [facility] PERIPHERAL E VASCULAR DISEASE 9172 FOOT&TOE 12-04-2014 [facility] BLISTER E WITHOUT MENTION OF INFECTION 9243 CONTUSION 12-04-2014 [facility] OF TOE E 17576 ABDOMINAL 11-03-2014 [place] PAIN RIGHT MEDICAL UPPER IMAGING ASS QUADRANT 5533 DIAPHRAGMAT 11-01-2014 [place] KODY W/O MEDICAL MENTION IMAGING ASS OBSTRUCTION /GANGREN 7905 OTHER 11-01-2014 [place] NONSPECIFIC MEDICAL ABNORMAL IMAGING ASS SERUM ENZYME LEVELS 7862 COUGH 10-30-2014 [facility] [place] [facility] V5869 LONG-TERM 10-30-2014 [facility] (CURRENT) [facility] USE OF INC OTHER MEDICATIONS 22669 UNSPECIFIED 10-28-2014 [place] OTALGIA MEDICAL IMAGING ASS 7224 DEGENERATIO 10-28-2014 [place] N OF MEDICAL CERVICAL IMAGING ASS INTERVERTEB RAL DISC 7231 CERVICALGIA 10-28-2014 [facility] 86424 SENILE 06-23-2014 [facility] OSTEOPOROSI [facility] S INC 2689 UNSPECIFIED 05-20-2014 [facility] VITAMIN D [facility] DEFICIENCY INC 2724 OTHER AND 05-20-2014 [facility] UNSPECIFIED [facility]OS[facility] INC HYPERLIPIDE VICTORIANO 66165 OTHER 05-20-2014 [facility] OSTEOPOROSI [facility]OS[facility] S INC 89368 HYPERTENSIV 02-20-2014 [facility] E HEART [facility] DISEASE INC UNSPEC W/HEART FAIL 4660 ACUTE 02-20-2014 [facility] BRONCHITIS [facility] INC 490 BRONCHITIS 02-20-2014 [facility] SPECIFIED PHYS ACUTE OR CHRONIC 51449 SWELLING OF 02-20-2014 [facility] N EMERGENCY PHYS 5853 CHRONIC 11-18-2013 [place] [facility] SERV DISEASE FOUNDATIO STAGE III (MODERATE) 586 UNSPECIFIED 10-29-2013 [facility] FAILURE [place] 7262 OTHER 05-30-2013 [facility] AFFECTIONS PHYSICIANS OF SHOULDER GROUP REGION NEC 97536 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-2013 [facility] 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 11291 DISORDER OF 05-21-2013 [place] BONE AND MEDICAL CARTILAGE IMAGING ASS UNSPECIFIED V1559 PERSONAL 05-21-2013 [place] HISTORY OF MEDICAL OTHER IMAGING ASS INJURY V4981 ASYMPTOMATI 05-21-2013 [place] C MEDICAL POSTMENOPAU IMAGING ASS KEELY STATUS 58636 UNSPECIFIED 04-29-2013 [facility] VIRAL [facility] INFECTION SERVICES IN CCE & UNS SITE 4659 ACUTE URIS 04-29-2013 [facility] OF EMERGENCY UNSPECIFIED SERVICES SITE 95712 CRAMP OF 04-05-2013 [facility]B PHYSICIANS [place] 7241 PAIN IN 01-16-2013 [facility] SPINE [facility] P 64614 ORTHOPNEA 01-16-2013 [facility] P 04278 OTHER 01-16-2013 [facility] DYSPNEA AND [facility]ERGENCY SERVICES RESPIRATORY ABNORMALITI ES 7265 ENTHESOPATH 10-17-2012 [facility] Y OF HIP [facility]OS[facility] REGION INC 08759 PAIN IN 08-22-2012 [place] JOINT MEDICAL PELVIC IMAGING ASS REGION AND THIGH 2749 GOUT, 07-16-2012 [place] [address] SHORTNESS 05-28-2012 [facility] 4240 MITRAL 05-27-2012 [facility] VALVE [facility] DISORDERS INC 98370 OSTEOARTHRO 05-27-2012 [facility] S UNSPEC [facility] WHETHER INC GEN/LOC UNSPEC SITE 26798 CHEST PAIN 05-27-2012 [place] UNSPECIFIED MEDICAL IMAGING ASS 67833 OTHER CHEST 05-27-2012 [facility] P 5859 CHRONIC 12-01-2011 [facility] KIDNEY [facility] DISEASE INC UNSPECIFIED 64387 HYPERSOMNIA 11-15-2011 [facility] WITH SLEEP [place] APNEA UNSPECIFIED 42772 ANEMIA OF 10-30-2011 [facility] P DISEASE 2859 UNSPECIFIED 10-30-2011 [facility] ANEMIA [facility] 66205 DEGEN 10-30-2011 [place] THORACIC/TH MEDICAL ORACOLUMBAR IMAGING ASS INTERVERTEB RAL DISC 65851 DEGEN 10-30-2011 [place] LUMBAR/LUMB MEDICAL OSACRAL IMAGING ASS INTERVERTEB RAL DISC 7242 LUMBAGO 10-30-2011 [facility] P 7245 UNSPECIFIED 10-30-2011 [facility] BACKACHE [facility]ERG[facility]Y SERVICES 7840 HEADACHE 10-30-2011 [facility] INC 17904 OTHER 10-20-2011 [place] DISEASES OF MEDICAL LUNG NOT IMAGING ASS ELSEWHERE CLASSIFIED 5199 UNSPECIFIED 10-20-2011 [place] DISEASE OF MEDICAL IMAGING ASS RESPIRATORY SYSTEM V5867 LONG-TERM 10-19-2011 [facility] USE OF [facility] P 3559 MONONEURITI 10-14-2011 [facility] S OF HOME UNSPECIFIED MEDICAL SITE EQUIPME 85215 OTHER 10-14-2011 [facility] MALAISE AND HOME FATIGUE MEDICAL EQUIPME 5180 PULMONARY 10-05-2011 [place] COLLAPSE MEDICAL IMAGING ASS 93002 OTHER 09-30-2011 [facility] STAPHYLOCOC [facility] CUS INC INFECTION IN CCE & UNS SITE 2768 HYPOPOTASSE 09-30-2011 [facility] VICTORIAN[facility] [employer] 2888 OTHER 09-30-2011 [facility] SPECIFIED DISEASE OF ASSOCIATES, WHITE BLOOD PSC CELLS 4599 UNSPECIFIED 09-30-2011 [facility] CIRCULATORY INC SYSTEM DISORDER 486 PNEUMONIA, 09-30-2011 [facility] ORGANISM [facility] UNSPECIFIED INC 21665 OTHER 09-30-2011 [place] SPECIFIED MEDICAL DISORDERS IMAGING ASS OF BLADDER 00647 OSTEOARTHRO 09-30-2011 [place] SIS UNSPEC MEDICAL WHETHER IMAGING ASS GEN/LOC LOWER LEG 40897 EFFUSION OF 09-30-2011 [place] LOWER LEG MEDICAL JOINT IMAGING ASS 7291 UNSPECIFIED 09-30-2011 [facility] MYALGIA [employer] MYOSITIS 7295 PAIN IN 09-30-2011 [facility] SOFT TISSUES OF ASSOCIATES, LIMB PSC 7821 RASH AND 09-14-2011 [facility] OTHER NONSPECIFIC ASSOCIATES, SKIN PSC ERUPTION V770 SCREENING 09-14-2011 [facility] FOR THYROID DISORDER ASSOCIATES, [facility] V7791 SCREENING 09-14-2011 [facility] FOR LIPOID DISORDERS ASSOCIATES, PSC 87797 DIAB 06-24-2011 [facility] W/NEURO MANIFESTS TYPE II/UNS NOT UNCNTRL 7038 OTHER 06-24-2011 [facility] MAR SPECIFIED DISEASE OF NAIL 60828 SECONDARY 03-29-2011 [facility] OSTEOARTHRO CLINIC PSC SIS LOWER LEG 15913 PAIN IN 03-29-2011 [facility] JOINT, [facility] LOWER LEG INC 41333 BACKGROUND 03-25-2011 [facility] DIABETIC VISION RETINOPATHY 72707 NUCLEAR 03-25-2011 [facility] SCLEROSIS VISION 7820 DISTURBANCE 02-09-2011 [facility] OF SKIN [facility] SENSATION INC 2767 HYPERPOTASS 02-07-2011 [facility] EMIA ASSOCIATES 460 ACUTE 02-07-2011 [facility] NASOPHARYNG ASSOCIATES ITIS 6929 CONTACT 01-27-2011 [facility] DERMATITIS& EMERGENCY OTHER SERVICES ECZEMA DUE UNSPEC CAUSE 47676 PAIN IN 12-09-2010 [facility] JOINT, ASSOCIATES MULTIPLE SITES 38846 UNSPEC 10-28-2010 ALLRAN JR VENTRAL ELAINE KODY W/O MENTION OBST/GANGRE N 38243 ABDOMINAL 09-21-2010 [facility] PAIN, [facility]OS[facility] GENERALIZED INC 7831 ABNORMAL 08-24-2010 [facility] WEIGHT GAIN PHYSICIANS [place] 5110 PLEURISY 07-18-2010 [facility] WITHOUT EMERGENCY MENTION SERVICES EFFUS/[place] [address] PAINFUL 07-18-2010 [place] RESPIRATION [facility]ING ASS 2721 PURE 07-08-2010 [facility] HYPERGLYCER PHYSICIANS IDEMIA [place] 7944 NONSPECIFIC 07-07-2010 [facility] ABNORM ASSOCIATES RESULTS KIDNEY FUNCTION STUDY 03637 ASTHMA, 06-16-2010 [facility] UNSPECIFIED EMERGENCY , SERVICES UNSPECIFIED STATUS 83825 DIAB 05-21-2010 PET[facility] LANNY W/OPHTH MANIFESTS TYPE II/UNS NOT UNCNTRL 8250 CLOSED 04-28-2010 [facility] FRACTURE OF [facility] CALCANEUS INC V5416 AFTERCARE 04-28-2010 [place] HEALING MEDICAL TRAUMATIC IMAGING ASS FRACTURE LOWER LEG 8248 UNSPECIFIED 03-31-2010 [place] CLOSED MEDICAL FRACTURE OF IMAGING ASS ANKLE 85506 OTHER ANKLE 03-31-2010 [facility] [employer] STR[facility] S INC 9596 INJURY 02-17-2010 [place] OTHER AND MEDICAL UNSPECIFIED IMAGING ASS HIP AND THIGH 9597 INJURY 02-17-2010 [place] OTHER&UNSPE MEDICAL CIFIED KNEE IMAGING ASS LEG ANKLE&FOOT 920 CONTUSION 02-16-2010 [facility] OF FACE EMERGENCY SCALP AND SERVICES NECK EXCEPT EYE 34572 CONTUSION 02-16-2010 [facility] OF HIP [facility] INC E8859 FALL FROM 02-16-2010 [facility] OTHER EMERGENCY SLIPPING SERVICES TRIPPING OR STUMBLING 55390 INSOMNIA 02-04-2010 [facility] UNSPECIFIED ASSOCIATES V0382 NEED PROPH 02-04-2010 [facility] VACCINATION ASSOCIATES AGAINST STREP PNEUMONE 55544 URINARY 11-04-2009 [facility] FREQUENCY ASSOCIATES 2811 OTHER 08-24-2009 [facility] VITAMIN B12 ASSOCIATES DEFICIENCY ANEMIA 514 PULMONARY 08-24-2009 [facility] CONGESTION ASSOCIATES AND HYPOSTASIS E8490 PLACE OF 07-10-2009 [place] OCCURRENCE, MEDICAL HOME IMAGING ASSOCIATES 60842 GEN 04-15-2009 [facility] INVOLVING MULTIPLE SITES 7919 OTHER 03-31-2009 [facility] NONSPECIFIC [facility] FINDING INC EXAMINATION OF URINE 95115 NEPHRITIS&N 03-24-2009 [facility] EPHROPATHY PRIMARY W/OTH CARE CENTER PATHOLOG KIDNEY LES 11413 NOCTURIA 03-11-2009 [facility] 56208 HYPERSOMNIA 02-26-2009 [facility] ASSOC[facility] UNSPECIFIED 66817 DIAB 11-28-2008 [facility] W/OPHTH GEE A MANIFESTS TYPE II/UNS TYPE UNCNTRL 4619 ACUTE 06-17-2008 [facility] SINUSITIS, ASSOCIATES UNSPECIFIED 8082 CLOSED 03-18-2008 [facility] FRACTURE OF L REHAB PUBIS ASSOC PSC 7089 UNSPECIFIED 11-17-2007 [facility] URTICARIA ASSOCIATES 6868 OTH SPEC 11-12-2007 [facility] SKIN&SUBCUT PROF SERV TISSUE V642 SURG/OTH 11-11-2007 [facility] PROC NOT [facility] CARRIED OUT INC BECAUSE PTS DECN Immunization Name Date Route CVX Reacti Commen Provid Is Given on t er Refuse d PPSV23 FAMILY No 2009 CARE VACCIN ASSOCI E 2 ATES YRS OR OLDER FOR SUBQ/I M USE Procedures Procedure DOS Code Location Performer Comment SBSQ 36337 [facility] 7 PHYSICIAN CARE/DAY S GROUP 25 MINUTES AMBULANCE A0429 [facility] SERVICE 7 AMBULANCE AMBULANCE BLS SERVICE SERVICE EMERGENC[facility]SP[facility] PER SERVICE SERVICE STATUTE MILE ECG 00935 [facility] BARRETO JR ROUTINE 7 [facility] W/LEAST P 12 LDS I&R ONLY INITIAL 24349 [facility] 7 PHYSICIAN CARE/DAY S GROUP 70 MINUTES MEASUREME [id number] [facility] NT 7 [facility] CARDIAC INC INC SAMPLING PRESS LT HEART PERQ DILAT [id number] [facility] CORONARY 7 [facility] ART 2 ART INC INC 2 RX-ELUT [place] DEVC PERQ FLUORO [id number] [facility] MULTI 7 [facility] CORONARY INC INC ARTERIES LOW OSMOLAR CONT FLUOROSCO [id number] [facility] PY LEFT 7 [facility] HOS[facility]OS[facility] HEART LOW INC INC OSMOLAR CONTRAST FLUORO [id number] [facility] BILATERAL 7 [facility]OS[facility] RENAL INC INC ART LOW OSMOLAR CONTRST COLLECTIO 96894 [facility] N VENOUS 6 [facility] BLOOD INC INC VENIPUNCT URE COMPREHEN 53275 [facility] SIVE 6 [facility] [place] [address] [facility] THYROID 6 MEM HOS[facility] MEM [facility]OS[facility] STIMULATI INC INC NG HORMONE TSH LIPID 56297 [facility] PANEL 6 [facility] HOS[facility]OS[facility] INC INC HEMOGLOBI 59130 [facility] N 6 [facility] HOS[facility] MEM [facility]OS[facility] GLYCOSYLA INC INC ALEX A1C 25 73934 COM[facility]ED COMBINED HYDROXY 6 PHYSICIAN PHYSICIAN INCLUDES S LA S LA FRACTIONS IF PERFORMED CULTURE 85393 COMBINED COMBINED BACTERIAL 6 PHYSICIAN PHYSICIAN S LA S LA QUANTTATI VE COLONY COUNT URINE CULTURE 30601 COMBINED COMBINED BCT 6 PHYSICIAN PHYSICIAN ISOL&PRSM S LA S LA PTV ID ISOLATE EA URINE RENAL 37488 COMBINED COMBINED FUNCTION 6 PHYSICIAN PHYSICIAN PANEL S LA S LA URNLS DIP 95165 COMBINED COMBINED 6 PHYSICIAN PHYSICIAN STICK/TAB S LA S LA LET REAGENT AUTO MICROSCOP Y BLOOD 39155 COMBINED COMBINED COUNT 6 PHYSICIAN PHYSICIAN COMPLETE S LA S LA AUTO&AUTO DIFRNTL WBC VOLUME 63489 COMBINED COMBINED MEASUREME 6 PHYSICIAN PHYSICIAN NT TIMED S LA S LA COLLECTIO N EACH A4258 ARRIVA ARRIVA WERED 6 MEDICAL MACHINE CHOCOLATE MOLDER FOR LANCET EACH NORMAL A4256 ARRIVA ARRIVA LOW AND 6 MEDICAL MEDICAL HIGH CALIBRATO R SOLUTION/ CHIPS LANCETS A4259 ARRIVA ARRIVA PER BOX 6 MEDICAL MEDICAL OF 100 BLD GLU A4253 ARRIVA ARRIVA TEST/REAG 6 MEDICAL MEDICAL T STRIPS HOME BLD GLU MON-50 BASIC 79114 ZACK DIX[facility] METABOLIC 6 [facility] PANEL INC INC CALCIUM TOTAL GLUC BLD 72990 [facility] GLUC MNTR 6 [facility] DEV INC INC CLEARED FDA SPEC HOME USE COLLECTIO 39120 [facility] N VENOUS 6 [facility] BLOOD [facility] G0378 [facility] D[facility] OBSERVATI 6 [facility] ON INC INC SERVICE PER HOUR COMPREHEN 84174 [facility] SIVE 6 [facility] METABOLIC INC INC PANEL CREATINE 69057 ZACK [facility] KINASE MB 6 [facility] FRACTION [facility] INC [facility] G0378 [facility] D[facility] OBSERVATI 6 [facility] ON INC INC SERVICE PER HOUR COLLECTIO 50371 [facility] N VENOUS 6 [facility] BLOOD INC INC VENIPUNCT URE GLUC BLD 12312 [facility]ACK [facility] GLUC MNTR 6 [facility] DEV INC INC CLEARED FDA SPEC HOME USE BLOOD 13919 [facility] COUNT 6 [facility] COMPLETE INC INC AUTO&AUTO DIFRNTL WBC URNLS DIP 83894 [facility] 6 [facility] STICK/TAB INC INC LET REAGENT AUTO MICROSCOP Y PRESSURIZ 09796 [facility] ED/NONPRE 6 [facility] SSURIZED INC INC INHALATIO N TREATMENT CREATINE 90322 [facility] KINASE 6 [facility] TOTAL INC INC THER 57676 [facility] PROPH/DX 6 [facility] NJX IV INC INC PUSH SINGLE/1S T SBST/DRUG ECG 64043 [facility] ROUTINE 6 [facility] ECG INC INC W/LEAST 12 LDS TRCG ONLY W/O I&R AMB A0427 [facility] SERVICE 6 [facility] ALS SERVICE SERVICE EMERGENCY TRANSPORT LEVEL 1 GROUND A0425 [facility] MILEA 6 AMBULANCE AMBULANCE PER SERVICE SERVICE STATUTE MILE ECG 11234 ZACK MCLEAN ROUTINE 6 [facility] W/LEAST P 12 LDS I&[place] [address] [facility] TROPONIN 6 [facility] QUANTITAT INC INC [facility] E0260 [facility] SEMI-ELEC 6 HOME HOME W/ANY MEDICAL MEDICAL TYPE SIDE EQUIPME EQUIPME RAIL W/MATTRSS STANDARD K0001 [facility] WHEELCHAI 6 HOME HOME R MEDICAL MEDICAL EQUIPME EQUIPME STANDARD K0001 REID MATHEWS WHEELCHAI 6 HOME HOME R MEDICAL MEDICAL EQUIPME EQUIPME HOS BED E0260 REID GLASSRELL SEMI-ELEC 6 HOME HOME W/ANY MEDICAL MEDICAL TYPE SIDE EQUIPME EQUIPME RAIL W/MATTRSS STANDARD K0001 REID DELGADILLOCHAI 6 HOME HOME [...] MEDICAL T STRIPS HOME BLD GLU MON-50 HOS BED E0260 REID GLASSRELL SEMI-ELEC 6 HOME HOME W/ANY MEDICAL MEDICAL TYPE SIDE EQUIPME EQUIPME RAIL W/MATTRSS STANDARD K0001 REID CHAUDHARII 6 HOME HOME R MEDICAL MEDICAL EQUIPME EQUIPME COLLECTIO 94437 ZACK DIXON N VENOUS 6 [facility] BLOOD INC INC VENIPUNCT URE BASIC 49469 ZACK DIXON METABOLIC 6 [facility] PANEL INC INC CALCIUM TOTAL LIPID 03975 ZACK DIX[facility] PANEL 6 [facility] INC INC HEMOGLOBI 38380 ZACK DIXON N 6 [facility] GLYCOSYLA INC INC ALEX A1C HOS BED E0260 REID MATHEWS SEMI-ELEC 6 HOME HOME W/ANY MEDICAL MEDICAL TYPE SIDE EQUIPME EQUIPME RAIL W/MATTRSS STANDARD K0001 REID MATHEWS WHEELCHAI 6 HOME HOME R MEDICAL MEDICAL EQUIPME EQUIPME URNLS DIP 03632 ZACK DIXON 6 [facility] STICK/TAB INC INC LET REAGENT AUTO MICROSCOP Y HOS BED E0260 REID MATHEWS SEMI-ELEC 6 HOME HOME W/ANY MEDICAL MEDICAL TYPE SIDE EQUIPME EQUIPME RAIL W/MATTRSS STANDARD K0001 REID MATHEWS WHEELCHAI 6 HOME HOME R MEDICAL MEDICAL EQUIPME EQUIPME REPL KIM A4233 ARRIVA ARRIVA ALKALINE 6 MEDICAL MEDICAL NOT J CELL LIBERTY BG MON OWND PT NORMAL A4256 ARRIVA ARRIVA LOW AND 6 MEDICAL MEDICAL HIGH CALIBRATO R SOLUTION/ CHIPS LANCETS A4259 ARRIVA ARRIVA PER BOX 6 MEDICAL MEDICAL OF 100 BLD GLU A4253 ARRIVA ARRIVA TEST/REAG 6 MEDICAL MEDICAL T STRIPS HOME BLD GLU MON-50 GLUC BLD 88597 ZACK DIXON GLUC MNTR 6 [facility] DEV INC INC CLEARED FDA SPEC HOME USE OBSERVATI 85666 [facility] 6 [place] [facility] DISCHARGE INTERNAL [facility] G0378 ZACK DIXON OBSERVATI 6 [facility] ON INC [facility] G0378 ZACK D[facility] OBSERVATI 6 [facility] ON INC INC SERVICE PER HOUR BASIC 15663 ZACK DIXON METABOLIC 6 [facility] PANEL INC INC CALCIUM TOTAL COLLECTIO 00630 ZACK DIXON N VENOUS 6 [facility] [place] [address] ZACK DIXON TROPONIN 6 [facility] QUANTITAT INC INC MARIBEL BLOOD 53406 ZACK DIXON COUNT 6 [facility] COMPLETE INC INC AUTO&AUTO DIFRNTL WBC GLUC BLD 38252 ZACK DIXON GLUC MNTR 6 [facility] DEV INC INC CLEARED FDA SPEC HOME USE CREATINE 86991 ZACK DIXON KINASE 6 [facility] [place] [address] ZACK DIXON LIPASE 6 [facility] INC INC ECG 60272 ZACK DIXON ROUTINE 6 [facility] ECG INC INC W/LEAST 12 LDS TRCG ONLY W/O I&R URNLS DIP 09109 ZACK DIXON 6 [facility] STICK/TAB INC INC LET REAGENT AUTO MICROSCOP Y THERAPEUT 55982 ZACK DIXON IC 6 [facility] INJECTION INC [place] [address] ZACK DIXON TROPONIN 6 [facility] QUANTITAT INC INC MARIBEL GLUC BLD 27366 ZACK DIXON GLUC MNTR 6 [facility] DEV INC INC CLEARED FDA SPEC HOME USE BLOOD 41196 ZACK DIXON COUNT 6 [facility] COMPLETE INC INC AUTO&AUTO DIFRNTL WBC ECG 41120 ZACK BARRETO JR ROUTINE 6 [facility] W/LEAST P 12 LDS I&R ONLY INITIAL 90843 [facility] VINAY OBSERVATI 6 [facility] ON INTERNAL CARE/DAY MED 30 MINUTES GROUND A0425 [facility] MILEAGE 6 AMBULANCE AM[place]ULANCE [place] [address] ZACK DIXON INFUSION 6 [facility] THERAPY/P INC INC ROPHYLAXI S /DX 1ST TO 1 HR COMPREHEN 34083 ZACK DIXON SIVE 6 [facility] METABOLIC INC INC PANEL CREATINE 63315 ZACK DIXON KINASE MB 6 [facility] FRACTION INC INC ONLY INJECTION J2405 ZACK DIXON 6 [facility] ONDANSETR INC INC ON HCL PER 1 [facility] G0378 ZACK DIXON OBSERVATI 6 [facility] ON INC INC SERVICE PER HOUR RADIOLOGI 76346 ZACK DIXON C 6 [facility] EXAMINATI INC [place] [address] ZACK DIXON HEAD/BRAI 6 [facility] N W/O INC INC CONTRAST MATERIAL COLLECTIO 45922 ZACK DIXON N VENOUS 6 [facility] BLOOD INC INC VENIPUNCT URE AMB A0427 [facility] SERVICE 6 AMBULANCE AMBULANCE ALS SERVICE SERVICE EMERGENCY TRANSPORT LEVEL 1 [place] [address] COMBINED COMBINED THYROID 6 PHYSICIAN PHYSICIAN STIMULATI S LA S LA NG HORMONE TSH BASIC 13801 COMBINED COMBINED METABOLIC 6 PHYSICIAN PHYSICIAN [place] [address] COMBINED COMBINED BLOOD/URI 6 PHYSICIAN PHYSICIAN C ACID S LA S LA ALBUMIN 19375 COMBINED COMBINED SERUM 6 PHYSICIAN PHYSICIAN PLASMA/WH S LA S LA OLE BLOOD BLOOD 88107 COMBINED COMBINED COUNT 6 PHYSICIAN PHYSICIAN COMPLETE S LA S LA AUTO&[place] [address] COMBINED COMBINED MAGNESIUM 6 PHYSICIAN PHYSICIAN S LA S LA CYANOCOBA 41857 COMBINED COMBINED SOHA 6 PHYSICIAN PHYSICIAN VITAMIN S LA S LA B-12 [place] [address] COMBINED COMBINED PHOSPHORU 6 PHYSICIAN PHYSICIAN S S LA S LA INORGANIC HOS BED E0260 REID MATHEWS SEMI-ELEC 6 HOME HOME W/ANY MEDICAL MEDICAL TYPE SIDE EQUIPME EQUIPME RAIL W/MATTRSS STANDARD K0001 REID CHAUDHARII 6 HOME HOME R MEDICAL MEDICAL EQUIPME EQUIPME PHYS G0179 [facility] RE-CERT 6 [facility] MCR-COVR INTERNAL [facility] SRVC RE-CERT PRD COMPREHEN 99958 ZACK DIXON SIVE 6 [facility] METABOLIC INC INC PANEL GLUC BLD 94025 AZCK DIXON GLUC MNTR 6 [facility] DEV INC INC CLEARED FDA SPEC HOME USE BLOOD 07690 ZACK DIXON COUNT 6 [facility] COMPLETE INC INC AUTO&AUTO DIFRNTL WBC URNLS DIP 31103 ZACK DIXON 6 [facility] STICK/TAB INC INC LET REAGENT AUTO MICROSCOP Y AMBULANCE A0429 [facility] SERVICE 6 AMBULANCE AMBULANCE BLS SERVICE SERVICE EMERGENCY TRANSPORT GROUND A0425 [facility] MILEAGE 6 AMBULANCE AMBULANCE PER SERVICE SERVICE STATUTE MILE SBSQ 16441 [facility] 6 [facility] INTERNAL CARE/DAY MED NEW PROBLEM 25 MIN SBSQ 05352 [facility] NURSING 6 [facility] FACIL INTERNAL CARE/DAY MEDI MINOR COMPLJ 15 MIN STANDARD K0001 REID CHAUDHARII 6 HOME HOME R MEDICAL MEDICAL EQUIPME EQUIPME HOS BED E0260 REID MATHEWS SEMI-ELEC 6 HOME HOME W/ANY MEDICAL MEDICAL TYPE SIDE EQUIPME EQUIPME RAIL W/MATTRSS RADEX 46949 SYMPHONY SYMPHONY SPINE 6 MOBILEX MOBILEX THORACIC 2 VIEWS RADEX 74643 SYMPHONY SYMPHONY SPINE 6 MOBILEX MOBILEX CERVICAL 2 OR 3 VIEWS SBSQ [address] [place] [address] INTERNAL CARE/DAY MED NEW PROBLEM 25 MIN STANDARD K0001 ERID LOMAS 5 HOME HOME R MEDICAL MEDICAL EQUIPME EQUIPME HOS BED E0260 REID REID SEMI-ELEC 5 HOME HOME W/ANY MEDICAL MEDICAL TYPE SIDE EQUIPME EQUIPME RAIL W/MATTRSS COMPREHEN 31253 ZACK DIXON SIVE 5 [facility] METABOLIC INC INC PANEL CULTURE 27204 ZACK DIXON BACTERIAL 5 [facility] INC INC QUANTTATI VE COLONY COUNT URINE AMB A0427 [facility] SERVICE 5 AMBULANCE AMBULANCE ALS SERVICE SERVICE EMERGENCY TRANSPORT LEVEL 1 GROUND A0425 [facility]UL[facility] AMBULANCE PER SERVICE SERV[facility] IC 5 [facility] PEPTIDE INC INC BLOOD 35237 ZACK DIXON COUNT 5 [facility] COMPLETE INC INC AUTO&AUTO DIFRNTL WBC SUSCEPTIB 18652 ZACK DIXON LTY STDY 5 [facility] ANTIMICRB INC INC IAL MICRO/AGA R DILUTJ URNLS DIP 99343 ZACK DIXON 5 [facility] STICK/TAB INC INC LET REAGENT AUTO MICROSCOP Y RADIOLOGI 57909 ZACK DIXON C EXAM 5 [facility] CHEST 2 INC INC VIEWS FRONTAL&L ATERAL PRESSURIZ 96825 ZACK DIXON ED/NONPRE 5 [facility] SSURIZED INC INC INHALATIO N TREATMENT STANDARD K0001 REIDJOHN CHAUDHARIEnma 5 HOME HOME R MEDICAL MEDICAL EQUIPME EQUIPME HOS BED E0260 REID MATHEWS SEMI-ELEC 5 HOME HOME W/ANY MEDICAL MEDICAL TYPE SIDE EQUIPME EQUIPME RAIL W/MATTRSS SBSQ [address] [facility] 5 CULAR MAT CARE/DAY CONSULTAN 25 TS O MINUTES INITIAL 88459 [facility]/DAY CONSULTAN 70 TS O MINUTES ECHO 97877 [facility] 5 MEDICAL JUAN J C R-T 2D SERV W/WO FOUNDATIO M-MODE N REC F-UP/LMTD RADIOLOGI 78232 [facility] C EXAM 5 MEDICAL MELIDA CHEST 2 IMAGING VIEWS ASS FRONTAL&L ATERAL HOS BED E0260 REID MATHEWS SEMI-ELEC 5 HOME HOME W/ANY MEDICAL MEDICAL TYPE SIDE EQUIPME EQUIPME RAIL W/MATTRSS STANDARD K0001 REID DELGADILLOCHAI 5 HOME HOME R MEDICAL MEDICAL EQUIPME EQUIPME THERAPEUT 76526 ZACK DIXON IC PX 1/> 5 [facility] AREAS INC INC EACH 15 MIN EXERCISES NORMAL A4256 ARRIVA ARRIVA LOW AND 5 MEDICAL MEDICAL HIGH CALIBRATO R SOLUTION/ CHIPS LANCETS A4259 ARRIVA ARRIVA PER BOX 5 MEDICAL MEDICAL OF 100 BLD GLU A4253 ARRIVA ARRIVA TEST/REAG 5 MEDICAL MEDICAL T STRIPS HOME BLD GLU MON- URNLS DIP 17756 ZACK CALDERON 5 [facility] LET RGNT P NON-AUTO W/O MICRSCP THERAPEUT 38524 ZACK DIXON IC PX 1/> 5 [facility] ARE[facility] INC INC EACH 15 MIN EXERCISES HOS BED E0260 REID MATHEWS SEMI-ELEC 5 HOME HOME W/ANY MEDICAL MEDICAL TYPE SIDE EQUIPME EQUIPME RAIL W/MATTRSS STANDARD K0001 REID CHAUDHARII 5 HOME HOME R MEDICAL MEDICAL EQUIPME EQUIPME THERAPEUT 08855 ZACK DIXON IC PX 1/> 5 [facility] AREAS INC INC EACH 15 MIN EXERCISES 25 65086 ZACK CASTELAN 5 [facility] INCLUDES INC INC FRACTIONS IF PERFORMED THERAPEUT 30983 ZACK DIXON IC PX 1/> 5 [facility] AREAS INC INC EACH 15 MIN EXERCISES COLLECTIO 53814 ZACK DIXON N VENOUS 5 [facility] [place] [address] ZACK DIXON THYROID 5 [facility] STIMULATI INC INC NG HORMONE TSH CULTURE 72208 ZACK DIXON BACTERIAL 5 [facility] INC INC QUANTTATI VE COLONY COUNT URINE CULTURE 93010 ZACK DIXON BCT 5 [facility] ISOL&PRSM INC INC PTV ID ISOLATE EA URINE RENAL 37948 ZACK DIXON FUNCTION 5 [facility] PANEL INC INC HEMOGLOBI 09874 ZACK DIXON N 5 [facility] GLYCOSYLA INC INC ALEX A1C BLOOD 95951 ZACK DIXON COUNT 5 [facility] COMPLETE INC INC AUTO&AUTO DIFRNTL WBC SUSCEPTIB 82101 ZACK DIXON LTY STDY 5 [facility] ANTIMICRB INC INC IAL MICRO/AGA R DILUTJ URNLS DIP 80408 ZACK DIXON 5 [facility] STICK/TAB INC INC LET REAGENT AUTO MICROSCOP Y THERAPEUT 18049 ZACK DIXON IC PX 1/> 5 [facility] AREAS INC INC EACH 15 MIN EXERCISES THERAPEUT 47366 ZACK DIXON IC PX 1/> 5 [facility] AREAS INC INC EACH 15 MIN EXERCISES THERAPEUT 74044 ZACK DIXON IC PX 1/> 5 [facility] AREAS INC INC EACH 15 MIN EXERCISES CATH CLCT P9612 ZACK CALDERON SPECIMEN 5 [facility] PT ALL P PLACES SERVICE THERAPEUT 17408 ZACK DIXON IC PX 1/> 5 [facility] AREAS INC INC EACH 15 MIN EXERCISES PHYSICAL 96321 ZACK DIXON THERAPY 5 [facility] EVALUATIO INC INC N CULTURE 17267 ZACK ZACK BACTERIAL 5 [facility] INC INC QUANTTATI VE COLONY COUNT URINE CULTURE 72516 ZACK ZACK BCT 5 [facility] ISOL&PRSM INC INC PTV ID ISOLATE EA URINE URNLS DIP 76738 ZACK CALDERON 5 [facility] LET RGNT P NON-AUTO W/O MICRSCP SUSCEPTIB 91866 ZACK DIXON LTY STDY 5 [facility] ANTIMICRB INC INC IAL MICRO/AGA R DILUTJ COMMODE E0163 REID REID CHAIR 5 HOME HOME MOBILE OR MEDICAL MEDICAL EQUIPME EQUIPME STATIONAR Y W/FIXED ARMS STANDARD K0001 REID MATHEWS WHEELCHAI 5 HOME HOME R MEDICAL MEDICAL EQUIPME EQUIPME HOS BED E0260 REID MATHEWS SEMI-ELEC 5 HOME HOME W/ANY MEDICAL MEDICAL TYPE SIDE EQUIPME EQUIPME RAIL W/MATTRSS CULTURE 94388 ZACK DIXON BACTERIAL 5 [facility] INC INC QUANTTATI VE COLONY COUNT URINE CULTURE 32406 ZACK DIXON BCT 5 [facility] ISOL&PRSM INC INC PTV ID ISOLATE EA URINE ONELIA 83253 ZACK CALDERON POST-VOID [address] [facility] RESIDUAL P URINE&/BL ADDER CAP SUSCEPTIB 74333 ZACK DIXON LTY STDY 5 [facility] ANTIMICRB INC INC IAL MICRO/AGA R DILUTJ RADIOLOGI 48102 SYMPHONY SYMPHONY C 5 MOBILEX MOBILEX EXAMINATI ON CHEST SINGLE VIEW FRONTAL RADIOLOGI 08004 SYMPHONY SYMPHONY C 5 MOBILEX MOBILEX EXAMINATI ON CHEST SINGLE VIEW FRONTAL INITIAL 71079 [facility] ARE ANDREZ FACILITY CARE/DAY 25 MINUTES DEBRIDEME 82641 [facility] NT NAIL 5 ARE ANDREZ ANY METHOD 6/> SBSQ 65038 [facility] 5 [facility] INTERNAL CARE/DAY MED NEW PROBLEM 25 MIN BASIC 60839 COMBINED COMBINED METABOLIC 5 PHYSICIAN PHYSICIAN PANEL S LA S LA CALCIUM TOTAL BLOOD 56788 COMBINED COMBINED COUNT 5 PHYSICIAN PHYSICIAN COMPLETE S LA S LA AUTO&[place] [address] LIZZ BEINEKE ABDOMINAL 5 MEDICAL KAY REAL IMAGING TIME ASS W/[place] [address] LIZZ SHERI ABDOMEN & 5 MEDICAL MELIDA PELVIS IMAGING W/O ASS CONTRAST MATERIAL CRITICAL 92927 ZACK DIXON CARE 5 [facility] ED P P PATIENT INIT 30-74 MIN ECG 23704 ZACK MCLEAN ROUTINE 5 [facility] W/LEAST P 12 LDS I&R ONLY RADIOLOGI 59048 [place] RODRIGUEZ ALL C 5 MEDICAL EXAMINATI IMAGING ON CHEST ASS SINGLE VIEW FRONTAL RADEX 57281 [place] FRANKY SPINE 5 MEDICAL KAY CERVICAL IMAGING 4 OR 5 ASS VIEWS RADEX 79008 [place] [facility] MASTOIDS 5 MEDICAL KAY COMPL IMAGING MINIMUM 3 ASS VIEWS AL SIDE SPRING-PO A4258 ARRIVA ARRIVA WERED 5 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 A4259 ARRIVA ARRIVA PER BOX 5 MEDICAL MEDICAL OF 100 NORMAL A4256 ARRIVA ARRIVA LOW AND 5 MEDICAL MEDICAL HIGH CALIBRATO R SOLUTION/ CHIPS BLD GLU A4253 ARRIVA ARRIVA TEST/REAG 5 MEDICAL MEDICAL T STRIPS HOME BLD GLU MON-50 COMPREHEN 44878 COMBINED COMBINED SIVE 5 PHYSICIAN PHYSICIAN METABOLIC S LA S LA PANEL COLLECTIO 30446 ZACK DIXON N VENOUS 5 [facility] BLOOD INC INC VENIPUNCT URE RENAL 01852 ZACK DIXON FUNCTION 5 [facility] PANEL INC INC THERAPEUT 37015 ZACK DIXON IC 5 [facility] PROPHYLAC INC INC TIC/DX INJECTION SUBQ/IM INJECTION J0897 ZACK DIXON 5 [facility] DENOSUMAB INC INC 1 MG COLLECTIO 86862 ZACK DIXON N VENOUS 4 [facility] BLOOD INC INC VENIPUNCT URE CREATININ 15963 ZACK DIXON E OTHER 4 [facility] SOURCE INC INC DXA BONE 24971 ZACK DIXON DENSITY 4 [facility] STUDY 1/> INC INC SITES AXIAL SKEL CULTURE 26700 ZACK DIXON BACTERIAL 4 [facility] INC INC QUANTTATI VE COLONY COUNT URINE CULTURE 30820 ZACK DIXON BCT 4 [facility] ISOL&PRSM INC INC PTV ID ISOLATE EA URINE RENAL 46866 ZACK DIXON FUNCTION 4 [facility] PANEL INC INC PROTEIN 57603 ZACK DIXON XCPT 4 [facility] REFRACTOM INC INC ETRY SERUM PLASMA/WH L BLD BLOOD 60596 ZACK DIXON COUNT 4 [facility] COMPLETE INC INC AUTO&AUTO DIFRNTL WBC SUSCEPTIB 36003 ZACK DIXON LTY STDY 4 [facility] ANTIMICRB INC INC IAL MICRO/AGA R DILUTJ URNLS DIP 23903 ZACK DIXON 4 [facility] STICK/TAB INC INC LET REAGENT AUTO MICROSCOP Y 25 17950 ZACK DIXON HYDROXY 4 [facility] INCLUDES INC [place] [address] ZACK ELLIOTTON PARATHORM 4 [facility] ONE INC INC COMPREHEN 40871 COMBINED COMBINED SIVE 4 PHYSICIAN PHYSICIAN METABOLIC S LA S LA PANEL CREATINE 95351 ZACK DIXON KINASE MB 4 [facility] FRACTION INC INC ONLY CREATINE 18031 ZACK DIXON KINASE 4 [facility] [place] [address] ZACK DIXON TROPONIN 4 [facility] QUANTITAT INC INC MARIBEL BLOOD 37784 ZACK ZACK COUNT 4 [facility] COMPLETE INC INC AUTO&AUTO DIFRNTL WBC URNLS DIP 81235 ZACK DIXON 4 [facility] STICK/TAB INC INC LET REAGENT AUTO MICROSCOP Y RADIOLOGI 64098 ZACK DIXON C EXAM 4 [facility] CHEST 2 INC INC VIEWS FRONTAL&L ATERAL PRESSURIZ 48728 ZACK DIXON ED/NONPRE 4 [facility] SSURIZED INC INC INHALATIO N TREATMENT COMPREHEN 35649 ZACK DIXON SIVE 4 [facility] METABOLIC INC INC PANEL COLLECTIO 20239 ZACK DIXON N VENOUS 4 [facility] BLOOD INC INC VENIPUNCT URE RENAL 34497 ZACK DIXON FUNCTION 4 [facility] PANEL INC INC BLOOD 91294 ZACK DIXON COUNT 4 [facility] COMPLETE INC INC AUTO&AUTO DIFRNTL WBC 25 91576 ZACK DIXON HYDROXY 4 [facility] INCLUDES INC INC FRACTIONS IF PERFORMED THERAPEUT 96393 ZACK ZACK IC 4 [facility] PROPHYLAC INC INC TIC/DX INJECTION SUBQ/IM INJECTION J0897 ZACK DIXON 4 [facility] DENOSUMAB INC INC 1 MG BASIC 78373 COMBINED COMBINED METABOLIC 4 PHYSICIAN PHYSICIAN PANEL S LA S LA CALCIUM TOTAL COMPREHEN 51955 COMBINED COMBINED SIVE 4 PHYSICIAN PHYSICIAN METABOLIC S LA S LA PANEL COLLECTIO 72687 ZACK DIXON N VENOUS 4 [facility] BLOOD INC INC VENIPUNCT URE BASIC 63509 ZACK DIXON METABOLIC 4 [facility] PANEL INC INC CALCIUM TOTAL INJECTION J0897 ZACKSHANDA DIXON 4 [facility] DENOSUMAB INC INC 1 MG THERAPEUT 35716 ZACK DIXON IC 4 [facility] PROPHYLAC INC INC TIC/DX INJECTION SUBQ/IM ARTHROCEN 83479 [facility] TESIS 3 PHYSICIAN JAM ASPIR&/IN S GROUP J MAJOR JT/BURSA W/O US INJECTION 84272 [facility] 1 TENDON 3 PHYSICIAN PHYSICIAN S GROUP S GROUP SHEATH/LI GAMENT APONEUROS IS INJ J0702 [facility] BETAMETHA 3 PHYSICIAN TONI SONE S GROUP ACETATE & PHOSPHATE 3 MG BASIC 33154 COMBINED COMBINED METABOLIC 3 PHYSICIAN PHYSICIAN PANEL S LA S LA CALCIUM TOTAL DXA BONE 22284 [place] SHERI DENSITY 3 MEDICAL MELIDA STUDY 1/> IMAGING SITES ASS AXIAL SKEL COLLECTIO 05478 ZACK DIXON N VENOUS 3 [facility] BLOOD INC INC VENIPUNCT URE ALBUMIN 06319 ZACK DIXON URINE 3 [facility] MICROALBU INC INC MIN QUANTIATI VE 25 65033 AZCKSHANDA DIXON HYDROXY 3 [facility] INCLUDES INC [place] [address] ZACK IDXON PARATHORM 3 [facility] ONE INC INC RENAL 13031 ZACK DIXON FUNCTION 3 [facility] PANEL INC INC BLOOD 67072 ZACK DIXON COUNT 3 [facility] COMPLETE INC INC AUTO&AUTO DIFRNTL WBC URNLS DIP 31352 ZACK DIXON 3 [facility] STICK/TAB INC INC LET REAGENT AUTO MICROSCOP Y RADIOLOGI 94306 [place] SHERI C EXAM 3 MEDICAL MELIDA CHEST 2 IMAGING VIEWS ASS FRONTAL&L ATERAL IAADI 90065 ZACK DIXON INFLUENZA 3 [facility] B VIRUS INC INC IAADI 41069 ZACK DIXON INFFLUENZ 3 [facility] [place] [address] ZACK DIXON STREPTOCO 3 [facility] CCUS INC INC GROUP A CUL BACT 32513 ZACK DIXON XCPT 3 [facility] URINE INC INC BLOOD/STO OL AEROBIC ISOL BASIC 62495 COMBINED COMBINED METABOLIC 3 PHYSICIAN PHYSICIAN PANEL [place] [address] COMBINED COMBINED BLOOD/URI 3 PHYSICIAN PHYSICIAN C ACID S LA S LA COMPREHEN 62832 ZACK DIXON SIVE 3 [facility] METABOLIC INC INC PANEL CREATINE 29873 ZACK DIXON KINASE MB 3 [facility] FRACTION INC INC ONLY TECHNETIU A9567 ZACK Flanagan TC-99M 3 [facility] PENTETATE INC INC DX AEROSOL TO 75 MCI CREATINE 67433 ZACK DIXON KINASE 3 [facility] TOTAL INC INC FIBRIN 75539 ZACK DIXON DGRADJ 3 [facility] PRODUCTS INC INC D-DIMER QUAL/SEMI BARB TECHNETIU A9540 ZACK Flanagan TC-99M 3 [facility] MAA DX INC INC STDY DOSE UP TO 10 MCI THER 34948 ZACK DIXON PROPH/DX 3 [facility] NJX IV INC INC PUSH SINGLE/1S T SBST/DRUG ECG 23419 ZACK DIXON ROUTINE 3 [facility] ECG INC INC W/LEAST 12 LDS TRCG ONLY W/O I&R RADIOLOGI 36392 ZACK DIXON C 3 [facility] EXAMINATI INC INC ON CHEST SINGLE VIEW FRONTAL ECG 33816 EMEKA ELSA LIRA ROUTINE 3 EMERGENCY ECG SERVICES W/LEAST 12 LDS I&R ONLY RHYTHM 02602 ZACK DIXON ECG 1-3 3 [facility] LEADS INC INC TRACING ONLY W/O I&[place] [address] ZACK DIXON TROPONIN 3 [facility] QUANTITAT INC INC MARIBEL BLOOD 53884 ZACK DIXON COUNT 3 [facility] COMPLETE INC INC AUTO&AUTO DIFRNTL WBC RADIOLOGI 97253 ZACK DIXON C EXAM 3 [facility] CHEST 2 INC INC VIEWS FRONTAL&L ATERAL PULMONARY 05263 ZACK DIXON 3 [facility] VENTILATI INC INC ON & PERFUSION IMAGING RENAL 80090 ZACK DIXON FUNCTION 3 [facility] PANEL INC INC BLOOD 09685 [facility]ACK [facility]ON COUNT 3 [facility] COMPLETE INC INC AUTO&AUTO DIFRNTL WBC COLLECTIO 17959 ZACK DIXON N VENOUS 3 [facility] BLOOD INC INC VENIPUNCT URE INJECTION J0897 ZACK DIXON 3 [facility] DENOSUMAB INC INC 1 MG THERAPEUT 74484 ZACK DIXON IC 3 [facility] PROPHYLAC INC INC TIC/DX INJECTION SUBQ/IM APPLICATI 33256 ZACK DIXON ON 3 [facility] MODALITY INC INC 1/> AREAS HOT/COLD PACKS E-STIM G0283 ZACK DIXON 1/> AREAS 3 [facility] OTH THAN INC INC WND CARE PART TX PLAN APPL 37603 ZACK DIXON MODALITY 3 [facility] 1/> AREAS INC INC 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 36965 ZACK DIXON IC PX 1/> 3 [facility] AREAS INC INC EACH 15 MIN EXERCISES THERAPEUT 31116 ZACK DIXON IC PX 1/> 3 [facility] AREAS INC INC EACH 15 MIN EXERCISES APPL 13633 ZACK DIXON MODALITY 3 [facility] 1/> AREAS INC INC 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 G0283 ZACK DIXON 1/> AREAS 3 [facility] OTH THAN INC INC WND CARE PART TX PLAN APPLICATI 14931 ZACK DIXON ON 3 [facility] MODALITY INC INC 1/> AREAS HOT/COLD PACKS APPLICATI 69097 ZACK DIXON ON 3 [facility] MODALITY INC INC 1/> AREAS HOT/COLD PACKS E-STIM G0283 ZACK DIXON 1/> AREAS 3 [facility] OTH THAN INC INC WND CARE PART TX PLAN APPL 09567 ZACK DIXON MODALITY 3 [facility] 1/> AREAS INC INC 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 87135 ZACK DIXON IC PX 1/> 3 [facility] AREAS INC INC EACH 15 MIN EXERCISES THERAPEUT 93242 ZACK DIXON IC PX 1/> 3 [facility] AREAS INC INC EACH 15 MIN EXERCISES APPL 85072 ZACK DIXON MODALITY 3 [facility] 1/> AREAS INC INC 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 G0283 ZACK DIXON 1/> AREAS 3 [facility] OTH THAN INC INC WND CARE PART TX PLAN APPLICATI 75074 ZACK DIXON ON 3 [facility] MODALITY INC INC 1/> AREAS HOT/COLD PACKS E-STIM G0283 ZACK DIXON 1/> AREAS 3 [facility] OTH THAN INC INC WND CARE PART TX PLAN THERAPEUT 69593 ZACK DIXON IC PX 1/> 3 [facility] AREAS INC INC EACH 15 MIN EXERCISES THERAPEUT 28353 AZCK DIXON IC PX 1/> 3 [facility] AREAS INC INC EACH 15 MIN EXERCISES APPL 79617 ZACK DIXON MODALITY 3 [facility] 1/> AREAS INC INC 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 G0283 ZACK ZACK 1/> AREAS 3 [facility] OTH THAN INC INC WND CARE PART TX PLAN APPLICATI 29807 ZACK DIXON ON 3 [facility] MODALITY INC INC 1/> AREAS HOT/COLD PACKS CULTURE 69450 COMBINED COMBINED BACTERIAL 3 PHYSICIAN PHYSICIAN S LA S LA QUANTTATI VE COLONY COUNT URINE APPLICATI 18951 ZACK ZACK ON 3 [facility] MODALITY INC INC 1/> AREAS HOT/COLD PACKS E-STIM G0283 ZACK ZACK 1/> AREAS 3 [facility] OTH THAN INC INC WND CARE PART TX PLAN APPL 71641 ZACK DIXON MODALITY 3 [facility] 1/> AREAS INC INC 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 02620 ZACK DIXON IC PX 1/> 3 [facility] AREAS INC INC EACH 15 MIN EXERCISES THERAPEUT 07224 ZACK ZACK IC PX 1/> 3 [facility] AREAS INC INC EACH 15 MIN EXERCISES THERAPEUT 06203 ZACK ZACK IC PX 1/> 3 [facility] AREAS INC INC EACH 15 MIN EXERCISES APPL 54199 ZACK DIXON MODALITY 3 [facility] 1/> AREAS INC INC ULTRASOUN D EA 15 MIN APPL 21636 ZACK DIXON MODALITY 3 [facility] 1/> AREAS INC INC 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 G0283 ZACK DIXON 1/> AREAS 3 [facility] OTH THAN INC INC WND CARE PART TX PLAN E-STIM G0283 ZACK ZACK 1/> AREAS [facility] OTH THAN INC INC WND CARE PART TX PLAN APPL 89372 [facility] DIX[facility]ITY [facility] AREAS INC INC IONTOPHOR ESIS EA 15 MIN APPLICATI 94168 [facility]IX[facility] ON 3 [facility] MODALITY INC INC 1/> AREAS HOT/COLD PACKS THERAPEUT 46054 ZACK DIXON IC PX 1/> 3 [facility] AREAS INC INC EACH 15 MIN EXERCISES THERAPEUT 64090 ZACK DIXON IC PX 1/> 3 [facility] AREAS INC INC EACH 15 MIN EXERCISES APPLICATI 39406 ZACKSHANDA DIXON ON 3 [facility] MODALITY INC INC 1/> AREAS HOT/COLD PACKS APPL 59998 [facility] DIXON MODALITY 3 [facility]/> AREAS INC INC 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 G0283 ZACK ZACK 1/> AREAS 3 [facility] OTH THAN INC INC WND CARE PART TX PLAN E-STIM G0283 ZACK ZACK 1/> AREAS [facility] OTH THAN INC INC WND CARE PART TX PLAN APPL 11415 ZACK ZACK MODALITY 3 [facility]/> AREAS INC INC IONTOPHOR ESIS EA 15 MIN APPLICATI 91905 [facility]ACK DIXON ON 3 [facility] MODALITY INC INC 1/> AREAS HOT/COLD PACKS APPL 86734 ZACK ZACK MODALITY 3 [facility]/> AREAS INC INC ULTRASOUN D EA 15 MIN THERAPEUT 34390 ZACK ZACK IC PX 1/> 3 [facility] AREAS INC INC EACH 15 MIN EXERCISES THERAPEUT 23044 ZACK ZACK IC PX 1/> 3 [facility] AREAS INC INC EACH 15 MIN EXERCISES APPL 78087 ZACK DIXON MODALITY 3 [facility]/> AREAS INC INC ULTRASOUN D EA 15 MIN APPL 67011 ZACK ZACK MODALITY 3 [facility]/> AREAS INC INC 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 G0283 ZACK DIXON 1/> AREAS 3 [facility] OTH THAN INC INC WND CARE PART TX PLAN THERAPEUT 11305 ZACK ZACK IC PX 1/> 3 [facility] AREAS INC INC EACH 15 MIN EXERCISES E-STIM G0283 ZACK DIXON 1/> AREAS 3 [facility] OTH THAN INC INC WND CARE PART TX PLAN APPL 05270 ZACK DIXON MODALITY 3 [facility]/> AREAS INC INC ULTRASOUN D EA 15 MIN CULTURE 95572 [facility]ACK DIX[facility] BACTERIAL 3 [facility] INC INC QUANTTATI VE COLONY COUNT URINE CULTURE 48183 ZACK DIX[facility] BCT 3 [facility] ISOL&PRSM INC INC PTV ID ISOLATE EA URINE 25 50365 ZACK DIX[facility] HYDROXY 3 [facility] INCLUDES INC [place] [address] ZACK DIXON PARATHORM 3 [facility] ONE INC INC PROTEIN 65082 ZACK DIXON ELECTROPH 3 [facility] ORETIC INC INC FRACTJ&QU ANTJ SERUM APPL 80342 ZACK DIXON MODALITY 3 [facility]/> AREAS INC INC IONTOPHOR ESIS EA 15 MIN COLLECTIO 18616 ZACK DIXON N VENOUS 3 [facility] [place] [address] ZACK DIXON NEPHELOME 3 [facility] TRY EACH INC INC ANALYTE YANELY RENAL 26342 ZACK DIXON FUNCTION 3 [facility] PANEL INC INC BLOOD 63263 ZACK DIXON COUNT 3 [facility] COMPLETE INC INC AUTO&AUTO DIFRNTL WBC SUSCEPTIB 37787 ZACK DIXON LTY STDY 3 [facility] ANTIMICRB INC INC IAL MICRO/AGA R DILUTJ URNLS DIP 08079 [facility]ACK DIXON 3 [facility] STICK/TAB INC INC LET REAGENT AUTO MICROSCOP Y APPL 15071 ZACK DIXON MODALITY 3 [facility]/> AREAS INC INC 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 25600 ZACK DIXON IC PX 1/> 3 [facility] AREAS INC INC EACH 15 MIN EXERCISES APPLICATI 95322 ZACK DIXON ON 3 [facility] MODALITY INC INC 1/> AREAS HOT/COLD PACKS E-STIM G0283 ZACK DIXON 1/> AREAS 3 [facility] OTH THAN INC INC WND CARE PART TX PLAN E-STIM G0283 ZACK DIXON 1/> AREAS 3 [facility] OTH THAN INC INC WND CARE PART TX PLAN APPLICATI 63912 ZACK DIXON ON 3 [facility] MODALITY INC INC 1/> AREAS HOT/COLD PACKS APPL 41081 ZACK DIXON MODALITY 3 [facility]/> AREAS INC INC ULTRASOUN D EA 15 MIN THERAPEUT 81658 ZACK DIXON IC PX 1/> 3 [facility] AREAS INC INC EACH 15 MIN EXERCISES APPL 16871 ZACK DIXON MODALITY 3 [facility]/> AREAS INC INC IONTOPHOR ESIS EA 15 MIN APPL 42277 ZACK DIXON MODALITY 3 [facility]/> AREAS INC INC 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 27878 ZACK DIXON IC PX 1/> 3 [facility] AREAS INC INC EACH 15 MIN EXERCISES APPL 66922 ZACK DIXON MODALITY 3 [facility]/> AREAS INC INC ULTRASOUN D EA 15 MIN E-STIM G0283 ZACK DIXON 1/> AREAS 3 [facility] OTH THAN INC INC WND CARE PART TX PLAN E-STIM G0283 ZACK DIXON 1/> AREAS 3 [facility] OTH THAN INC INC WND CARE PART TX PLAN APPL 38260 ZACK DIXON MODALITY 3 [facility] 1/> AREAS INC INC ULTRASOUN D EA 15 MIN APPLICATI 64943 ZACK DIXON ON 3 [facility] MODALITY INC INC 1/> AREAS HOT/COLD PACKS THERAPEUT 76303 ZACK DIXON IC PX 1/> 3 [facility] AREAS INC INC EACH 15 MIN EXERCISES APPL 37912 ZACK DIXON MODALITY 3 [facility]/> AREAS INC INC IONTOPHOR ESIS EA 15 MIN APPL 44625 ZACK DIXON MODALITY 3 [facility]/> AREAS INC INC IONTOPHOR ESIS EA 15 MIN BASIC 80499 COMBINED COMBINED METABOLIC 3 PHYSICIAN PHYSICIAN PANEL S LA S LA CALCIUM TOTAL THERAPEUT 75348 ZACK DIXON IC PX 1/> 3 [facility] AREAS INC INC EACH 15 MIN EXERCISES APPL 48786 ZACK DIXON MODALITY 3 [facility] 1/> AREAS INC INC ULTRASOUN D EA 15 MIN APPL 16499 ZACK DIXON MODALITY 3 [facility] 1/> AREAS INC INC ULTRASOUN D EA 15 MIN E-STIM G0283 ZACK DIXON 1/> AREAS 3 [facility] OTH THAN INC INC WND CARE PART TX PLAN THERAPEUT 38745 ZACK DIXON IC PX 1/> 3 [facility] AREAS INC INC EACH 15 MIN EXERCISES APPL 66711 ZACK DIXON MODALITY 3 [facility] 1/> AREAS INC INC IONTOPHOR ESIS EA 15 MIN APPL 29289 ZACK DIXON MODALITY 3 [facility]/> AREAS INC INC 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 65178 ZACK DIXON IC PX 1/> 3 [facility] AREAS INC INC EACH 15 MIN EXERCISES E-STIM G0283 ZACK DIXON 1/> AREAS 3 [facility] OTH THAN INC INC WND CARE PART TX PLAN APPL 80308 ZACK DIXON MODALITY 3 [facility]/> AREAS INC INC ULTRASOUN D EA 15 MIN APPL 66199 ZACK DIXON MODALITY 3 [facility]/> AREAS INC INC ULTRASOUN D EA 15 MIN APPLICATI 35362 ZACK DIXON ON 3 [facility] MODALITY INC INC 1/> AREAS HOT/COLD PACKS E-STIM G0283 ZACK DIXON 1/> AREAS 3 [facility] OTH THAN INC INC WND CARE PART TX PLAN THERAPEUT 62499 ZACK DIXON IC PX 1/> 3 [facility] AREAS INC INC EACH 15 MIN EXERCISES THERAPEUT 29807 ZACK DIXON IC PX 1/> 3 [facility] AREAS INC INC EACH 15 MIN EXERCISES E-STIM G0283 ZACK DIXON 1/> AREAS 3 [facility] OTH THAN INC INC WND CARE PART TX PLAN APPL 00701 ZACK DIXON MODALITY 3 [facility]/> AREAS INC INC ULTRASOUN D EA 15 MIN E-STIM G0283 ZACK DIXON 1/> AREAS 3 [facility] OTH THAN INC INC WND CARE PART TX PLAN THERAPEUT 43831 ZACK DIXON IC PX 1/> 3 [facility] AREAS INC INC EACH 15 MIN EXERCISES APPL 14909 ZACK DIXON MODALITY 3 [facility] 1/> AREAS INC INC 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 14728 ZACK DIXON IC PX 1/> 3 [facility] AREAS INC INC EACH 15 MIN EXERCISES APPLICATI 64611 ZACK DIXON ON 3 [facility] MODALITY INC INC 1/> AREAS HOT/COLD PACKS E-STIM G0283 ZACK DIXON 1/> AREAS 3 [facility] OTH THAN INC INC WND CARE PART TX PLAN E-STIM G0283 ZACK DIXON 1/> AREAS 3 [facility] OTH THAN INC INC WND CARE PART TX PLAN APPL 62177 ZACK DIXON MODALITY 3 [facility]/> AREAS INC INC ULTRASOUN D EA 15 MIN THERAPEUT 03702 ZACK DIXON IC PX 1/> 3 [facility] AREAS INC INC EACH 15 MIN EXERCISES APPL 84808 ZACK DIXON MODALITY 3 [facility] 1/> AREAS INC INC IONTOPHOR ESIS EA 15 MIN APPL 00263 ZACK DIXON MODALITY 3 [facility]/> AREAS INC INC 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 36672 ZACK DIXON IC PX 1/> 3 [facility] AREAS INC INC EACH 15 MIN EXERCISES APPL 76277 ZACK DIXON MODALITY 3 [facility] 1/> AREAS INC INC ULTRASOUN D EA 15 MIN APPLICATI 06974 ZACK DIXON ON 3 [facility] MODALITY INC INC 1/> AREAS HOT/COLD PACKS E-STIM G0283 ZACK DIXON 1/> AREAS 3 [facility] OTH THAN INC INC WND CARE PART TX PLAN E-STIM G0283 ZACK DIXON 1/> AREAS 3 [facility] OTH THAN INC INC WND CARE PART TX PLAN APPLICATI 42430 ZACK DIXON ON 3 [facility] MODALITY INC INC 1/> AREAS HOT/COLD PACKS APPL 52673 ZACK DIXON MODALITY 3 [facility] 1[facility] AREAS INC INC ULTRASOUN D EA 15 MIN APPL 48683 ZACK DIXON MODALITY 3 [facility] 1/> AREAS INC INC IONTOPHOR ESIS EA 15 MIN APPL 78391 ZACK DIXON MODALITY 3 [facility] 1/> AREAS INC INC 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 07851 ZACK DIXON IC PX 1/> 3 [facility] AREAS INC INC EACH 15 MIN EXERCISES APPL 46513 ZACK DIXON MODALITY 3 [facility]/> AREAS INC INC ULTRASOUN D EA 15 MIN APPLICATI 52991 ZACK DIXON ON 3 [facility] MODALITY INC INC 1/> AREAS HOT/COLD PACKS E-STIM G0283 ZACK DIXON 1/> AREAS 3 [facility] OTH THAN INC INC WND CARE PART TX PLAN E-STIM G0283 ZACK DIXON 1/> AREAS 3 [facility] OTH THAN INC INC WND CARE PART TX PLAN APPLICATI 88654 ZACK DIXON ON 3 [facility] MODALITY INC INC 1/> AREAS HOT/COLD PACKS APPL 79292 ZACK DIXON MODALITY 3 [facility] 1/> AREAS INC INC ULTRASOUN D EA 15 MIN THERAPEUT 73389 ZACK DIXON IC PX 1/> 3 [facility] AREAS INC INC EACH 15 MIN EXERCISES APPL 94843 ZACK DIXON MODALITY 3 [facility] 1/> AREAS INC INC 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 96165 ZACK DIXON IC PX 1/> 3 [facility] AREAS INC INC EACH 15 MIN EXERCISES PHYSICAL 70040 ZACK DIXON THERAPY 3 [facility] EVALUATIO INC INC N APPLICATI 36421 ZACK DIXON ON 3 [facility] MODALITY INC INC 1/> AREAS HOT/COLD PACKS APPL 44843 ZACK DIXON MODALITY 3 [facility] 1/> AREAS INC INC ULTRASOUN D EA 15 MIN APPL 84229 ZACK DIXON MODALITY 3 [facility] 1/> AREAS INC INC IONTOPHOR ESIS EA 15 MIN RADEX HIP 60050 [facility] 3 [facility] UNILATERA IMAGING L ASS COMPLETE MINIMUM 2 VIEWS BASIC 97808 COMBINED COMBINED METABOLIC 3 PHYSICIAN PHYSICIAN [place] [address] COMBINED COMBINED BLOOD/URI 3 PHYSICIAN PHYSICIAN C ACID S LA S LA BASIC 00110 ZACK DIXON METABOLIC 2 [facility] PANEL [facility] G0378 ZACK DIXON OBSERVATI 2 [facility] ON INC INC SERVICE PER HOUR COLLECTIO 64836 ZACK [facility]IXON N VENOUS 2 [facility] BLOOD INC INC VENIPUNCT URE BLOOD 04001 ZACK ELLIOTTON COUNT 2 [facility] COMPLETE INC INC AUTO&AUTO DIFRNTL WBC GLUC BLD 79281 ZACK DIXON GLUC MNTR 2 [facility] DEV INC INC CLEARED FDA SPEC HOME USE GLUC BLD 67384 ZACK DIXON GLUC MNTR 2 [facility] DEV INC [place] [address] ZACK ZACK TROPONIN 2 [facility] QUANTITAT INC INC MARIBEL NONINVASI 47236 ZACK DIXON VE 2 [facility] EAR/PULSE INC INC OXIMETRY SINGLE DETER BLOOD 36129 ZACK ZACK COUNT 2 [facility] COMPLETE INC INC AUTO&AUTO DIFRNTL WBC ECHO 87649 [facility] TTHRC R-T 2 DINA MORA 2D CARDIOLOG W/WOM-MOD Y CLINIC E COMPL SPEC&COLR D PULMONARY 28479 LIZZ WADE 2 MEDICAL MEL[facility] VENTILATI IMAGING ON & ASS PERFUSION IMAGING TECHNETIU A9540 ZACK Flanagan TC-99M 2 [facility] MAA DX INC INC STDY DOSE UP TO 10 MCI CREATINE 40606 ZACK DIXON KINASE 2 [facility] TOTAL INC INC CREATINE 85740 ZACK DIXON KINASE MB 2 [facility] FRACTION INC INC ONLY TECHNETIU A9567 ZACK Flanagan TC-99M 2 [facility] PENTETATE INC INC DX AEROSOL TO 75 MCI COLLECTIO 98203 ZACK Yoo VENOUS 2 [facility] BLOOD INC INC [facility]IPUNCT URE [facility] G0378 ZACK DIXON OBSERVATI 2 [facility] ON INC INC SERVICE PER HOUR BASIC 22182 ZACK DIXON METABOLIC 2 [facility] PANEL INC INC CALCIUM TOTAL BASIC 68264 ZACK DIXON METABOLIC 2 [facility] PANEL INC [facility] G0378 ZACK DIXON OBSERVATI 2 [facility] ON INC INC SERVICE PER HOUR CREATINE 52161 ZACK DIXON KINASE MB 2 [facility] FRACTION INC INC ONLY ECG 47621 ZACK MLCEAN ROUTINE 2 [facility] W/LEAST P 12 LDS I&R ONLY FIBRIN 85240 ZACK DIXON DGRADJ 2 [facility] PRODUCTS INC INC D-DIMER QUAL/SEMI BARB CREATINE 39476 ZACK DIXON KINASE 2 [facility] TOTAL INC INC THERAPEUT 33742 ZACK DIXON IC 2 [facility] PROPHYLAC INC INC TIC/DX INJECTION SUBQ/IM ECG 03832 ZACK DIXON ROUTINE 2 [facility] ECG INC INC W/LEAST 12 LDS TRCG ONLY W/O I&R RADIOLOGI 26643 LIZZ WADE C EXAM 2 MED[facility] M[facility] CHEST 2 IMAGING VIEWS ASS FRONTAL&L ATERAL CULTURE 04897 ZACK DIXON BACTERIAL 2 [facility] BLOOD INC INC AEROBIC W/ID ISOLATES URNLS DIP 13014 ZACK DIXON 2 [facility] STICK/TAB INC INC LET REAGENT AUTO MICROSCOP Y NATRIURET 31970 ZACK DIXON IC 2 [facility] PEPTIDE INC INC GLUC BLD 73679 ZACK DIXON GLUC MNTR 2 [facility] DEV INC INC [place] [address] ZACK DIXON TROPONIN 2 [facility] QUANTITAT INC INC MARIBEL BLOOD 54595 ZACK DIXON COUNT 2 [facility] COMPLETE INC INC AUTO&AUTO DIFRNTL WBC BLOOD 58247 ZACK DIXON COUNT 2 [facility] COMPLETE INC INC AUTO&AUTO DIFRNTL WBC COLLECTIO 92878 ZACK DIXON N VENOUS 2 [facility] BLOOD INC INC VENIPUNCT URE BASIC 58808 ZACK DIXON METABOLIC 2 [facility] PANEL INC INC CALCIUM TOTAL INJECTION J0897 ZACK DIXON 2 [facility] DENOSUMAB INC INC 1 MG THERAPEUT 53349 ZACK DIXON IC 2 [facility] PROPHYLAC INC INC TIC/DX INJECTION SUBQ/IM 25 75590 ZACK DIXON HYDROXY 2 [facility] INCLUDES INC [place] [address] ZACK DIXON PARATHORM 2 [facility] ONE INC INC RENAL 42665 ZACK DIXON FUNCTION 2 [facility] PANEL INC INC PROTEIN 71736 ZACK DIXON XCPT 2 [facility] REFRACTOM INC INC ETRY SERUM PLASMA/WH L BLD BLOOD 08901 ZACK DIXON COUNT 2 [facility] COMPLETE INC INC AUTO&AUTO DIFRNTL WBC URNLS DIP 33537 ZACK DIXON 2 [facility] STICK/TAB INC INC LET REAGENT AUTO MICROSCOP Y COLLECTIO 31756 ZACK DIXON N VENOUS 2 [facility] BLOOD INC INC VENIPUNCT URE CREATININ 87937 ZACK DIXON E OTHER 2 [facility] SOURCE INC INC DXA BONE 77420 [facility] [place] DENSITY 2 MEDICAL MELIDA STUDY 1/> IMAGING SITES ASS AXIAL SKEL CONTINUOU E0601 REID MATHEWS S 2 HOME HOME POSITIVE MEDICAL MEDICAL AIRWAY EQUIPME EQUIPME PRESSURE DEVICE CONTINUOU E0601 REID MATHEWS S 2 HOME HOME POSITIVE MEDICAL MEDICAL AIRWAY EQUIPME EQUIPME PRESSURE DEVICE FILTER [id number] REID REID DISPBL 2 HOME HOME USED MEDICAL MEDICAL W/POS EQUIPME EQUIPME ARWAY PRESSURE DEVICE FILTER [id number] REID REID NON 2 HOME HOME DISPBL MEDICAL MEDICAL USED EQUIPME EQUIPME W/POS ARWAY PRESS DEVICE HUMDIFIR [id number] REID MATHEWS HEATED 2 HOME HOME USED MEDICAL MEDICAL W/POS EQUIPME EQUIPME ARWAY PRESSURE DEVICE TUBING A7037 REID MATHEWS USED WITH 2 HOME HOME POSITIVE MEDICAL MEDICAL AIRWAY EQUIPME EQUIPME PRESSURE DEVICE HEADGEAR A7035 REID MATHEWS USED 2 HOME HOME W/POSITIV MEDICAL MEDICAL E AIRWAY EQUIPME EQUIPME PRESSURE DEVICE NASL [id number] REID MATHEWS INTRFCE 2 HOME HOME POS ARWAY MEDICAL MEDICAL PRSS EQUIPME EQUIPME DEVC W/WO HEAD STRAP CV STRS 34332 [employer] TST 2 PHYSICIAN XERS&/OR S GROUP RX CONT ECG W/O I&R MYOCARDIA 20792 [facility] SPECT 2 [facility] MULTIPLE CARDIOLOG STUDIES Y CLINIC CV STRS 18870 ZACK ZAPATA TST 2 [facility] XERS&/OR HOSPITAL RX CONT P ECG I&R ONLY CULTURE 06208 ZACK DIXON BACTERIAL 2 [facility] INC INC QUANTTATI VE COLONY COUNT URINE CULTURE 93636 ZACK DIXON BCT 2 [facility] ISOL&PRSM INC INC PTV ID ISOLATE EA URINE SUSCEPTIB 99195 ZACK DIXON LTY STDY 2 [facility] ANTIMICRB INC INC IAL MICRO/AGA R DILUTJ POLYSOM 67297 ZACK DIXON 6/>YRS 2 [facility] SLEEP INC INC W/CPAP 4/> ADDL HARSHIL ATTND 25 35504 ZACK DIXON HYDROXY 2 [facility] INCLUDES [place] [address] ZACK DIXON PARATHORM 2 [facility] ONE INC INC PROTEIN 43572 ZACK DIXON XCPT 2 [facility] REFRACTOM INC INC ETRY SERUM PLASMA/WH L BLD BLOOD 76385 ZACK DIXON COUNT 2 [facility] COMPLETE INC INC AUTO&AUTO DIFRNTL WBC URNLS DIP 88086 ZACK DIXON 2 [facility] STICK/TAB INC INC LET REAGENT AUTO MICROSCOP Y RENAL 22536 ZACK DIXON FUNCTION 2 [facility] PANEL INC INC COLLECTIO 94250 ZACK DIXON N VENOUS 2 [facility] BLOOD INC INC VENIPUNCT URE CREATININ 61721 ZACK DIXON E OTHER 2 [facility] SOURCE INC INC POLYSOM 31613 ESTIVEN JEAN-BAPTISTE 6/>YRS 2 [facility] SLEEP 4/> ADDL HARSHIL ATTND BLD GLU A4253 REID MATHEWS TEST/REAG 2 HOME HOME T STRIPS MEDICAL MEDICAL HOME BLD EQUIPME EQUIPME GLU MON-50 LANCETS A4259 REID MATHEWS PER BOX 2 HOME HOME OF 100 MEDICAL MEDICAL EQUIPME EQUIPME POLYSOM 45946 ZACK DIXON 6/>YRS 2 [facility] SLEEP 4/> INC INC ADDL HARSHIL ATTND ECG 24040 EMEKA ALFORD ROUTINE 2 EMERGENCY III NANCY ECG SERVICES W/LEAST 12 LDS I&[place] [address] ZACK DIXON TROPONIN 2 [facility] QUANTITAT INC INC MARIBEL BLOOD 50336 ZACK DIXON COUNT 2 [facility] COMPLETE INC INC AUTO&AUTO DIFRNTL WBC URNLS DIP 95690 ZACK DIXON 2 [facility] STICK/TAB INC INC LET REAGENT AUTO MICROSCOP Y BASIC 83900 ZAKC DIXON METABOLIC 2 [facility] PANEL INC INC CALCIUM TOTAL RADIOLOGI 27960 ZCAK DIXON C 2 [facility] EXAMINATI INC [place] [address] ZACK DIXON HEAD/BRAI 2 [facility] N W/O INC INC CONTRAST MATERIAL CREATINE 28565 ZACK DIXON KINASE 2 [facility] TOTAL INC INC 3D 72693 ZACK DIXON RENDERING 2 [facility] W/INTERP INC INC & POSTPROCE SS SUPERVISI ON ECG 51990 ZACK DIXON ROUTINE 2 [facility] ECG INC INC W/LEAST 12 LDS TRCG ONLY W/O I&R RADEX 16278 [facility] SHERI SPINE 2 MED[facility] MEL[facility] THORACIC IMAGING 3 VIEWS ASS RAD[facility] 25960 [facility] 2 MEDICAL MELIDA LUMBOSACR IMAGING AL ASS MINIMUM 4 VIEWS CREATINE 71080 ZACK DIXON KINASE MB 2 [facility] FRACTION INC INC ONLY RADIOLOGI 05778 LIZZ WADE C EXAM 2 [facility] SKULL IMAGING COMPLETE ASS MINIMUM 4 [place] [address] ZACK DIXON FOLIC 2 [facility] [place] [address] ZACK DIXON IRON 2 [facility] INC INC 25 69605 ZACK DIXON HYDROXY 2 [facility] INCLUDES INC [place] [address] ZACK DIXON FERRITIN 2 [place] [address] ZACK DIXON PARATHORM 2 [facility] [address] ZACK DIXON PHOSPHORU 2 [facility] S INC INC INORGANIC CYANOCOBA 82926 ZACK DIXON SOHA 2 [facility] VITAMIN INC INC B-12 RADEX 47874 ZACK DIXON SPINE 2 [facility] CERVICAL INC INC 6 OR MORE VIEWS BASIC 42941 ZACK DIXON METABOLIC 2 [facility] [place] [address] ZACK ZACK BLOOD/URI 2 [facility] C ACID INC INC IRON 37950 ZACK DIXON BINDING 2 [facility] CAPACITY INC INC IRRIGAJ 30754 ZACK DIXON IMPLNTD 2 [facility] VENOUS INC INC ACCESS DRUG DELIVERY SYST GLUC BLD 35053 ZACK DIXON GLUC MNTR 2 [facility] DEV INC INC CLEARED FDA SPEC HOME USE BLOOD 26452 ZACK ZACK COUNT 2 [facility] COMPLETE INC INC AUTO&AUTO DIFRNTL WBC GLUC BLD 64774 ZACK DIXON GLUC MNTR 2 [facility] DEV INC INC CLEARED FDA SPEC HOME USE NONINVASI 41444 ZACK DIXON VE 2 [facility] EAR/PULSE INC INC OXIMETRY SINGLE DETER BASIC 21907 ZACK DIXON METABOLIC 2 [facility] PANEL INC INC [facility] [id number] ZACK [facility]IXON OBSERVATI 2 [facility] ON INC INC SERVICE PER HOUR TECHNETIU A9567 ZACK Flanagan TC-99M 2 [facility] PENTETATE INC INC DX AEROSOL TO 75 [facility] G0378 ZACK [facility]IXON OBSERVATI 2 [facility] ON INC INC SERVICE PER HOUR CREATINE 34713 ZACK DIXON KINASE MB 2 [facility] FRACTION INC INC ONLY BASIC 34039 ZACK DIXON METABOLIC 2 [facility] PANEL INC INC CALCIUM TOTAL ECG 59868 ZACK MCLEAN ROUTINE 2 [facility] W/LEAST P 12 LDS I&R ONLY INITIAL 20994 [facility] 2 PHYSICIAN CARE/DAY S GROUP 50 MINUTES BLOOD 09811 ZACK DIXON COUNT 2 [facility] COMPLETE INC INC AUTO&AUTO DIFRNTL WBC NONINVASI 48642 ZACK DIXON VE 2 [facility] EAR/PULSE INC INC OXIMETRY SINGLE DETER ECHO 26902 [facility] TTHRC R-T 2 [facility] 2D CARDIOLOG W/WOM-MOD Y CLINIC E COMPL SPEC&COLR D GLUC BLD 61913 ZACK DIXON GLUC MNTR 2 [facility] DEV INC INC CLEARED FDA SPEC HOME USE TECHNETIU A9540 ZACK DIXON M TC-99M 2 [facility] MAA DX INC INC STDY DOSE UP TO 10 MCI ECG 05199 ZACK DIXON ROUTINE 2 [facility] ECG INC INC W/LEAST 12 LDS TRCG ONLY W/O I&R RADIOLOGI 59781 [place] [facility] EXAM 2 [facility] CHEST 2 IMAGING VIEWS ASS FRONTAL&L ATERAL PULMONARY 12567 [facility] 2 MEDICAL MELIDA VENTILATI IMAGING ON & ASS PERFUSION IMAGING CREATINE 71865 ZACK ZACK KINASE 2 [facility] [place] [place] [address] ZACK ZACK TROPONIN 2 [facility] QUANTITAT INC INC MARIBEL CREATINE 94348 ZACK ZACK KINASE 2 [facility] TOTAL INC INC FIBRIN 32781 ZACK DIXON DGRADJ 2 [facility] PRODUCTS INC INC D-DIMER QUAL/SEMI BARB THERAPEUT 91579 ZACK DIXON IC 2 [facility] PROPHYLAC INC INC TIC/DX INJECTION SUBQ/IM ECG 77878 ZACK DIXON ROUTINE 2 [facility] ECG INC INC W/LEAST 12 LDS TRCG ONLY W/O I&R BLOOD 41241 ZACK DIXON COUNT 2 [facility] COMPLETE INC INC AUTO&AUTO DIFRNTL WBC CULTURE 46127 ZACK ELLIOTTON BACTERIAL 2 [facility] BLOOD INC INC AEROBIC W/ID ISOLATES SUSCEPTIB 31167 ZACK ZACK LTY STDY 2 [facility] ANTIMICRB INC INC IAL MICRO/AGA R DILUTJ URNLS DIP 22303 ZACK DIXON 2 [facility] STICK/TAB INC INC [place] [address] ZACK DIXON TROPONIN 2 [facility] QUANTITAT INC INC MARIBEL NATRIURET 49392 ZACK DIXON IC 2 [facility] PEPTIDE INC INC ECG 41454 EMEKA WILCOX ROUTINE 2 [facility]ERG[facility] ECG SERVICES W/LEAST 12 LDS I&R ONLY CULTURE 15949 ZACK ELLIOTTON BACTERIAL 2 [facility] INC INC QUANTTATI VE COLONY COUNT URINE CULTURE 85489 ZACK DIXON BCT 2 [facility] ISOL&PRSM INC INC PTV ID ISOLATE EA URINE CREATINE 89026 ZACK DIXON KINASE MB 2 [facility] FRACTION INC INC ONLY COMPREHEN 05857 ZACK DIXON SIVE 2 [facility] METABOLIC INC INC PANEL RADIOLOGI 50365 [place] [facility] C 2 MEDICAL MELIDA EXAMINATI IMAGING ON CHEST ASS SINGLE VIEW FRONTAL HOME E0607 REID REID BLOOD 2 HOME HOME GLUCOSE MEDICAL MEDICAL MONITOR EQUIPME EQUIPME WALKER [id number] REID REID FOLDING 2 HOME HOME ADJUSTABL MEDICAL MEDICAL E OR EQUIPME EQUIPME FIXED HEIGHT BLD GLU A4253 REID GLASSRELL TEST/REAG 2 HOME HOME T STRIPS MEDICAL MEDICAL HOME BLD EQUIPME EQUIPME GLU MON-50 LANCETS A4259 REID REID PER BOX 2 HOME HOME OF 100 MEDICAL MEDICAL EQUIPME EQUIPME RADIOLOGI 42654 [place] C 2 MEDICAL MELIDA EXAMINATI IMAGING ON CHEST ASS SINGLE VIEW FRONTAL VENOUS 3893 ZACK DIXON CATHETERI 2 [facility] ZATION INC INC NOT ELSEWHERE CLASSIFIE D RADIOLOGI 75349 [place] [facility] C EXAM 2 MEDICAL MELIDA CHEST 2 IMAGING VIEWS ASS FRONTAL&L ATERAL CYANOCOBA 07450 COMBINED COMBINED SOHA 2 PHYSICIAN PHYSICIAN VITAMIN S LA S LA B-12 SEDIMENTA 07938 COMBINED COMBINED TION RATE 2 PHYSICIAN PHYSICIAN [place] [address] [place] [facility] RETROPERI 2 MEDICAL MELIDA TONEAL IMAGING REAL TIME ASS W/IMAGE COMPLETE RADIOLOGI 78092 [place] [facility] C EXAM 2 MEDICAL MELIDA CHEST 2 IMAGING VIEWS ASS FRONTAL&L ATERAL BLOOD 24530 FAMILY STRAWZELL COUNT 2 CARE CRI COMPLETE ASSOCIATE AUTO&AUTO S, PSC DIFRNTL WBC RHEUMATOI 03579 COMBINED COMBINED D FACTOR 2 PHYSICIAN PHYSIC[place] [address] COMBINED COMBINED BLOOD/URI 2 PHYSICIAN PHYSICIAN C ACID S LA S LA HANDLG&/O 33557 FAMILY STRAWZELL R CONVEY 2 CARE CRI OF SPEC ASSOCIATE FOR TR S, [facility] OFFICE TO LAB ANTINUCLE 43894 LAB ZOEY LAB ZOEY AR 2 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 YUNG RADIOLOGI 64263 [facility] 2 MEDICAL MELIDA EXAMINATI IMAGING ON KNEE 3 ASS VIEWS COMPREHEN 48828 COMBINED COMBINED SIVE 2 PHYSICIAN PHYSICIAN METABOLIC S LA S LA PANEL COLLECTIO 26614 FAMILY STRAWZELL N VENOUS 2 CARE CRI BLOOD ASSOCIATE VENIPUN[place], [place] [address] COMBINED COMBINED THYROID 2 PHYSICIAN PHYSICIAN STIMULATI S LA S LA NG HORMONE TSH HANDLG&/O 44878 FAMILY STRAWZELL R CONVEY 2 CARE CRI OF SPEC ASSOCIATE FOR TR S, [facility] OFFICE TO LAB LIPID 11387 FAMILY STRAWZELL PANEL 2 CARE CRI ASSOCIATE S, PSC HEMOGLOBI 72130 FAMILY STRAWZELL N 2 CARE CRI GLYCOSYLA ASSOCIATE ALEX A1C S, PSC 25 35307 COMBINED COMBINED HYDROXY 2 PHYSICIAN PHYSICIAN INCLUDES S LA S LA FRACTIONS IF PERFORMED COLLECTIO 34897 FAMILY STRAWZELL N VENOUS 2 CARE CRI BLOOD ASSOCIATE VENIPUNCT S, PSC URE COMPREHEN 55172 COMBINED COMBINED SIVE 2 PHYSICIAN PHYSICIAN METABOLIC S LA S LA PANEL RADIOLOGI 48556 [facility] EXAM 2 MEDICAL MELIDA CHEST 2 IMAGING VIEWS ASS FRONTAL&L ATERAL DUP-SCAN 13946 ZACK DIXON XTR VEINS 2 [facility] INC INC UNILATERA L/LIMITED STUDY RENAL 57314 ZACK DIXON FUNCTION 2 [facility] PANEL INC INC HEPATIC 16793 ZACK DIXON FUNCTION 2 [facility] PANEL INC INC BLOOD 07708 ZACK DIXON COUNT 2 [facility] COMPLETE INC INC AUTO&AUTO DIFRNTL WBC URNLS DIP 21731 ZACK DIXON 2 [facility] STICK/TAB INC INC LET REAGENT AUTO MICROSCOP Y COLLECTIO 79191 ZACK Yoo VENOUS 2 [facility] BLOOD INC INC VENIPUNCT URE DEBRIDEME 83276 PAWSAT PAWSAT NT NAIL 2 MAR MAR ANY METHOD 1-5 THERAPEUT 36752 ZACK DIXON IC 1 [facility] PROPHYLAC INC INC TIC/DX INJECTION SUBQ/IM BASIC 32892 ZACK DIXON METABOLIC 1 [facility] PANEL INC INC CALCIUM TOTAL COLLECTIO 92893 ZACK DIXON N VENOUS 1 [facility] BLOOD INC INC VENIPUNCT URE COLLECTIO 85484 ZACK DIXON N VENOUS 1 [facility] BLOOD INC INC VENIPUNCT URE BASIC 52716 ZACK DIXON METABOLIC 1 [facility] PANEL INC INC CALCIUM TOTAL THERAPEUT 66749 ZACK DIXON IC 1 [facility] PROPHYLAC INC INC TIC/DX INJECTION SUBQ/IM 25 32349 ZACK DIXON HYDROXY 1 [facility] INCLUDES INC [place] [address] ZACK DIXON PARATHORM 1 [facility] ONE INC INC PROTEIN 17228 ZACK DIXON ELECTROPH 1 [facility] ORETIC INC INC FRACTJ&QU ANTJ SERUM RENAL 13513 ZACK DIXON FUNCTION 1 [facility] PANEL INC INC PROTEIN 22411 ZACK DIXON XCPT 1 [facility] REFRACTOM INC INC ETRY SERUM PLASMA/WH L BLD BLOOD 49406 ZACK DIXON COUNT 1 [facility] COMPLETE INC INC AUTO&AUTO DIFRNTL WBC URNLS DIP 26316 ZACK DIXON 1 [facility] STICK/TAB INC INC LET REAGENT AUTO MICROSCOP Y COLLECTIO 21054 ZACK DIXON N VENOUS 1 [facility] BLOOD INC INC VENIPUNCT URE CREATININ 51622 ZACK DIXON E OTHER 1 [facility] SOURCE INC INC COLLECTIO 32373 ZACK DIXON N VENOUS 1 [facility] BLOOD INC INC VENIPUNCT URE BASIC 53144 ZACK DIXON METABOLIC 1 [facility] PANEL INC INC CALCIUM TOTAL INJECTION J1030 [place] [facility] DNISOLONE PSC ACETATE 40 MG RADIOLOGI 90876 ZACKSHANDA DIXON C EXAM 1 [facility] BOTH INC INC KNEES STANDING ANTEROPOS T ARTHROCEN 26132 [place] SON TESIS 1 [place] ASPIR&/IN CLINIC J MAJOR PSC JT/BURSA W/O US DXA BONE 59502 ZACK DIXON DENSITY 1 [facility] STUDY 1/> INC INC SITES AXIAL SKEL OPHTH 41236 ARYAN ROBERTSONNES [facility] 1 VISION XM&EVAL COMPRHNSV ESTAB PT 1/> [place] [address] ZACK ZACK RETROPERI 1 [facility] TONEAL INC INC REAL TIME W/IMAGE COMPLETE NON-INVAS 48096 [facility] BRIANSHERI [place] 1 MEDICAL MELIDA PHYSIOLOG IMAGING IC STUDY ASS EXTREMITY 3 LEVLS BASIC 14304 COMBINED COMBINED METABOLIC 1 PHYSICIAN PHYSICIAN PANEL S LA S LA CALCIUM TOTAL 25 55040 COMBINED COMBINED HYDROXY 1 PHYSICIAN PHYSICIAN INCLUDES S [place] [address] COMBINED COMBINED PARATHORM 1 PHYSICIAN [place] [address] COMBINED COMBINED PHOSPHORU 1 PHYSICIAN PHYSICIAN S S LA S LA INORGANIC BLD GLU A4253 REID MATHEWS TEST/REAG 1 HOME MED HOME MED T STRIPS EQUIP. L EQUIP. L HOME BLD GLU MON-50 LANCETS A4259 REID MATHEWS PER BOX 1 HOME MED HOME MED OF 100 EQUIP. L EQUIP. L 3D 14491 LIZZ DIASCHER RENDERING 1 MEDICAL MELIDA IMAGING W/INTERP& ASS POSTPROC DIFF WORK STATION CREATININ 03140 ZACK DIXON E BLOOD 1 [facility] INC INC COLLECTIO 37242 ZACK DIXON N VENOUS 1 [facility] [place] [address] ZACK DIXON UREA 1 [facility] [place] [address] [place] [facility] ABDOMEN 1 MEDICAL MELIDA W/O IMAGING CONTRAST ASS MATERIAL HEPATBL 45797 [place] DUX SYS 1 MEDICAL MELIDA IMG IMAGING GLBLDR ASS TECHNETIU A9537 ZACK Flanagan TC-99M 1 [facility] MEBROFENI INC INC N DX UP TO 15 MCI 02842 [place] ABDOMINAL 1 MEDICAL MELIDA REAL IMAGING TIME ASS W/IMAGE LIMITED COMPREHEN 54937 COMBINED COMBINED SIVE 1 PHYSICIAN PHYSICIAN METABOLIC S LA S LA PANEL COLLECTIO 98577 COMBINED COMBINED N VENOUS 1 PHYSICIAN PHYSICIAN BLOOD S LA S LA VENIPUNCT URE COLLECTIO 88282 FAMILY MULBERRY N VENOUS 1 CARE NILO BLOOD ASSOCIATE VENIPUNCT S URE COMPREHEN 30073 COMBINED COMBINED SIVE 1 PHYSICIAN PHYSICIAN [place] [address] COMBINED COMBINED AMYLASE 1 [place] [address] COMBINED COMBINED THYROID 1 PHYSICIAN PHYSICIAN STIMULATI [place] [address] LAB ZOEY LAB ZOEY LIPASE 1 [employer] BLOOD 54801 FAMILY MULBERRY COUNT 1 CARE NILO COMPLETE ASSOCIATE AUTO&AUTO S DIFRNTL WBC HEMOGLOBI 58896 FAMILY MULBERRY N 1 CARE NILO GLYCOSYLA ASSOCIATE ALEX A1C S RADIOLOGI 77602 [place] [facility] Lopez EXAM 1 MEDICAL CARLOS CHEST 2 IMAGING VIEWS ASS FRONTAL&L ATERAL BASIC 88183 COMBINED COMBINED METABOLIC 1 PHYSICIAN PHYSICIAN PANEL S LA S LA CALCIUM TOTAL COLLECTIO 24938 FAMILY BRENDAN J N VENOUS 1 CARE BLOOD [place] [address] ZACK DIXON STREPTOCO 0 [facility] CCUS INC INC GROUP A URNLS DIP 87769 ZACK DIXON 0 [facility] STICK/TAB INC INC LET REAGENT AUTO MICROSCOP Y RADIOLOGI 88180 ZACK DIXON C EXAM 0 [facility] CHEST 2 INC INC VIEWS FRONTAL&L ATERAL PRESSURIZ 28222 ZACK DIXON ED/NONPRE 0 [facility] SSURIZED INC INC INHALATIO N TREATMENT IAADI 56294 ZACK DIXON INFLUENZA 0 [facility] B VIRUS INC INC IAADI 58521 ZACK DIXON INFFLUENZ 0 [facility] A A VIRUS INC INC COMPREHEN 81899 COMBINED COMBINED SIVE 0 PHYSICIAN PHYSICIAN [place] [address] COMBINED COMBINED THYROID 0 PHYSICIAN PHYSICIAN STIMULATI S LA S LA NG HORMONE TSH COLLECTIO 50067 FAMILY FAMILY N VENOUS 0 CARE CARE BLOOD ASSOCIATE ASSOCIATE VENIPUNCT S S URE OPHTH 55650 PETERSYANELY PETERS LANNY MEDICAL 0 XM&EVAL COMPRHNSV ESTAB PT 1/> FUNDUS 67289 PETERSYANELY CA PETERS LANNY PHOTOGRAP 0 HY W/INTERPR ETATION & REPORT FOR DIAB A5513 WELLNESS WELLNESS ONLY MX 0 LIFE LIFE DNSITY SYSTEMS [employer] CSTM MOLD CSTM EA DIAB ONLY A5500 WELLNESS WELLNESS FIT CSTM 0 LIFE LIFE PREP&SPL SYSTEMS SYSTEMS SHOE [employer] LLC DNSITY INSRT RADIOLOGI 04229 [place] [facility] C 0 MEDICAL MELIDA EXAMINATI IMAGING ON ANKLE ASS 2 VIEWS WALKING L4360 [facility] BOOT 0 TECHNOLOG TECHNOLOG PNEUMATC IES INC IES INC &/ VACUUM PREFAB CUSTM FIT RADIOLOGI 62672 [place] [facility] C 0 MEDICAL MELIDA EXAMINATI IMAGING ON ANKLE ASS 2 VIEWS RADIOLOGI 50120 ZACK DIXON C 0 [facility] EXAMINATI INC INC ON FOOT 2 VIEWS RADEX 78494 [place] [facility] FOOT 0 MEDICAL MELIDA COMPLETE IMAGING MINIMUM 3 ASS VIEWS RADEX 35822 [place] [facility] FOOT 0 MEDICAL MELIDA COMPLETE IMAGING MINIMUM 3 [place] [address] [facility] PETTEY 0 PHYSICIAN JAM CALCANEAL S GROUP FRACTURE W/O MANIPULAT ION RADIOLOGI 99321 [place] [facility] C 0 MEDICAL MELIDA EXAMINATI IMAGING ON TIBIA ASS & FIBULA 2 VIEWS RADEX 42026 [facility] WADE CALCANEUS 0 MEDICAL MELIDA MINIMUM IMAGING 2 VIEWS ASS RADIOLOGI 08065 [facility] WADE C 0 MEDICAL MELIDA EXAMINATI IMAGING ON PELVIS ASS 1/2 [place] [address] EMEKA SPARROWEY 0 EMERGENCY CHIDI CALCANEAL SERVICES FRACTURE W/O MANIPULAT ION AMBULANCE A0429 [facility] SERVICE 0 AMBULANCE AMBULANCE BLS SERVICE SERVICE EMERGENCY TRANSPORT GROUND A0425 [facility] MILEAGE 0 AMBULANCE AMBULANCE PER SERVICE SERVICE STATUTE MILE 25 17150 LAB ZOEY LAB ZOEY HYDROXY 0 AMERIC AMERIC INCLUDES HOLD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 IF PERFORMED GLUCOSE 53499 FAMILY MULBERRY POST 0 CARE NILO GLUCOSE ASSOCIATE DOSE S HEMOGLOBI 01454 FAMILY MULBERRY N 0 CARE NILO GLYCOSYLA ASSOCIATE ALEX A1C S BLOOD 64001 FAMILY MULBERRY COUNT 0 CARE NILO COMPLETE ASSOCIATE AUTO&AUTO S DIFRNTL WBC PPSV23 30978 FAMILY FAMILY VACCINE 2 0 CARE CARE YRS OR ASSOCIATE ASSOCIATE OLDER FOR S S SUBQ/IM USE ADMINISTR G0009 FAMILY MULBERRY ATION OF 0 CARE NILO PNEUMOCOC ASSOCIATE JORDYN S VACCINE COLLECTIO 20878 FAMILY MULBERRY N VENOUS 0 CARE NILO BLOOD [place] [address] COMBINED COMBINED IRON 0 PHYSICIAN [place] [address] COMBINED COMBINED FOLIC 0 PHYSICIAN PHYSICIAN ACID S LAB S LAB SERUM COMPREHEN 80213 COMBINED COMBINED SIVE 0 PHYSICIAN PHYSICIAN METABOL[place] [address] COMBINED COMBINED FERRITIN 0 PHYSICIAN PHYSICIAN S LAB S LAB CYANOCOBA 74699 COMBINED COMBINED SOHA 0 PHYSICIAN PHYSICIAN VITAMIN S LAB S LAB B-12 LIPID 95464 COMBINED COMBINED PANEL 0 PHYSICIAN PHYSICIAN S LAB S LAB HEMOGLOBI 93101 FAMILY MULBERRY, N 0 CARE CLEO T GLYCOSYLA ASSOCIATE ALEX A1C S BLOOD 54190 FAMILY MULBERRY, COUNT 0 CARE CLEO T COMPLETE ASSOCIATE AUTO&AUTO S DIFRNTL WBC COLLECTIO 18630 FAMILY ELIAS, N VENOUS 0 CARE CLEO T BLOOD ASSOCIATE VENIPUNCT S URE BASIC 97654 COMBINED COMBINED METABOLIC 0 PHYSICIAN PHYSICIAN PANEL S LAB S LAB CALCIUM TOTAL BLOOD 16789 FAMILY ELIAS, COUNT 0 CARE CLEO T COMPLETE ASSOCIATE AUTO&AUTO S DIFRNTL WBC COLLECTIO 62944 FAMILY ELIAS, N VENOUS 0 CARE CLEO T BLOOD ASSOCIATE VENIPUNCT S URE BLD GLU A4253 REID MATHEWS TEST/REAG 0 HOME MED HOME MED T STRIPS EQUIP. EQUIP. HOME BLD [facility] GLU MON-50 LANCETS A4259 REID REID PER BOX 0 HOME MED HOME MED OF 100 EQUIP. EQUIP. LLC [facility] 40577 FAMILY ELIAS, DISCHARGE 0 CARE CLEO T DAY ASSOCIATE MANAGEMEN S T > 30 MIN RADIOLOGI 40267 [facility] COREY EXAM 0 MEDICAL XAVI P CHEST 2 IMAGING VIEWS ASSOCIATE FRONTAL&L S ATERAL SBSQ 81933 [facility], HOSPITAL 0 CARE CLEO T CARE/DAY ASSOCIATE 25 S MINUTES INITIAL 83118 [facility] 0 CARE CLEO T CARE/DAY ASSOCIATE 50 S MINUTES RADIOLOGI 85171 [facility] [place] EXAM 0 MEDICAL RAYMUNDO CHEST 2 IMAGING VIEWS ASSOCIATE FRONTAL&L S ATERAL ECHO 92698 [facility] FALLUERMA, TTHRC R-T 0 PHYSICIAN MINNA [place] GROUP W/WOM-MOD E COMPL SPEC&COLR D ECG 75990 ZACK BARRETO, ROUTINE 0 [facility] W/LEAST PROF SERV 12 LDS I&R ONLY INTRO 59876 EMEKA WILCOX, NEEDLE/IN 0 EMERGENCY TAYA TRACAT SERVICES EXTREMITY [place] [address] [facility] WADE, PART VNTJ 0 MEDICAL RAYMUNDO IMG IMAGING AERSL ASSOCIATE 1/CANDY DEPARTMENT MANAGER S PRJCJ AMB A0427 [facility] SERVICE 0 AMBULANCE AMBULANCE ALS SERVICE SERVICE EMERGENCY TRANSPORT LEVEL 1 GROUND A0425 [facility] AMBULANCE PER SERVICE SERVICE STATUTE MILE IAADIADOO 23069 FAMILY MULBERRY, 0 CARE CLEO T STREPTOCO ASSOCIATE CCUS S GROUP A ORTHOPANT 86155 LIZZ BRIANUTCHER, OGRAM 0 MEDICAL RAYMUNDO IMAGING ASSOCIATE S RENAL 28351 ZACK DIXON FUNCTION 0 [facility] PANEL INC INC COLLECTIO 44656 ZACK DIXON N VENOUS 0 [facility] [...] [employer] [facility] HOME BLD GLU MON-50 COLLECTIO 54475 ZACK DIXON N VENOUS 9 [facility] BLOOD INC INC VENIPUNCT URE RENAL 13400 ZACK DIXON FUNCTION 9 [facility] PANEL INC INC ELECTRIC E0215 DIABETES DIABETES HEAT PAD 9 CARE CLUB CARE CLUB [employer] [facility] BLD GLU A4253 DIABETES DIABETES TEST/REAG 9 CARE CLUB CARE CLUB T [facility] HOME BLD GLU MON-50 NORMAL A4256 DIABETES DIABETES LOW AND 9 CARE CLUB CARE CLUB HIGH [facility] LLC CALIBRATO R SOLUTION/ CHIPS LANCETS A4259 DIABETES DIABETES PER BOX 9 CARE CLUB CARE CLUB OF [address] [place] [address] ZACK DIXON RETROPERI 9 [facility] TONEAL INC INC REAL TIME W/IMAGE COMPLETE URNLS DIP 79510 ZACK DIXON 9 [facility] STICK/TAB INC INC LET REAGENT AUTO MICROSCOP Y SUSCEPTIB 76996 ZACK DIXON LTY STDY 9 [facility] ANTIMICRB INC INC IAL MICRO/AGA R DILUTJ RENAL 10715 ZACK DIXON FUNCTION 9 [facility] PANEL INC INC COMPLEMEN 81066 ZACK DIXON T 9 [facility] FUNCTIONA INC INC L ACTIVITY EACH COMPONENT COLLECTIO 29682 ZACK DIXON N VENOUS 9 [facility] BLOOD INC INC VENIPUNCT URE ANTISTREP 80466 ZACK DIXON TOLYSIN O 9 [facility] SCREEN INC INC CULTURE 25645 ZACK DIXON BCT 9 [facility] ISOL&PRSM INC INC PTV ID ISOLATE EA URINE CULTURE 01079 ZACK DIXON BACTERIAL 9 [facility] INC INC QUANTTATI VE COLONY COUNT URINE ANTINUCLE 27097 ZACK DIXON AR 9 [facility] [place] [address] ZACK DIXON BLOOD/URI 9 [facility] C ACID INC INC BASIC 40871 ZACK DIXON METABOLIC 9 [facility] PANEL INC INC CALCIUM TOTAL COLLECTIO 18145 ZACK DIXON N VENOUS 9 [facility] BLOOD INC INC VENIPUNCT URE COLLECTIO 52583 ZACK DIXON N VENOUS 9 [facility] BLOOD INC INC VENIPUNCT URE COMPREHEN 89296 ZACK DIXON SIVE 9 [facility] [address] ZACK DIXON THYROID 9 [facility] STIMULATI INC INC NG HORMONE TSH BLOOD 65175 ZACK DIXON COUNT 9 [facility] COMPLETE INC INC AUTO&AUTO DIFRNTL WBC LANCETS A4259 DIABETES DIABETES PER BOX 9 C[facility] CLUB CARE CLUB OF 100 [facility] NORMAL A4256 DIABETES DIABETES LOW AND 9 CARE CLUB CARE CLUB HIGH [facility] CALIBRATO R SOLUTION/ CHIPS BLD GLU A4253 DIABETES DIABETES TEST/REAG 9 CARE CLUB CARE CLUB T [facility] HOME BLD GLU MON-50 SPRING-PO A4258 DIABETES DIABETES WERED 9 CARE CLUB CARE CLUB DEVICE [facility] FOR LANCET EACH REPL KIM A4235 DIABETES DIABETES LITHIUM 9 CARE CLUB CARE CLUB MED NECES [facility] LIBERTY BG MON OWN PT EA OPHTH 67190 LORRAINE, LORRAINE, MEDICAL 9 GEE A GEE A XM&EVAL COMPRHNSV ESTAB PT 1/> ALBUMIN 29719 FAMILY MULBERRY, URINE 9 CARE CLEO T MICROALBU ASSOCIATE MIN S SEMIQUANT ITATIVE CREATININ 15855 FAMILY ELIAS, E OTHER 9 CARE CLEO Rollins SOURCE ASSOCIATE S COLLECTIO 77728 FAMILY ELIAS, N VENOUS 9 CARE CLEO Rollins BLOOD ASSOCIATE VENIPUNCT S URE HEMOGLOBI 45945 COMBINED COMBINED N 9 PHYSICIAN PHYSICIAN GLYCOSYLA [...] [employer] [facility] HOME BLD GLU MON-50 THERAPEUT 04584 PROFESSIO CROSSFIEL ACTVITY 8 NAL REHAB D, DIRECT PT ASSOC DANNITA CONTACT PSC EACH 15 MIN THERAPEUT 10065 PROFESSIO CROSSFIEL IC PX 1/> 8 NAL REHAB D, AREAS ASSOC DANNITA EACH 15 PSC MIN EXERCISES MANUAL 59564 PROFESSIO CROSSFIEL THERAPY 8 NAL REHAB D, TQS 1/> ASSOC DANNITA REGIONS PSC EACH 15 MINUTES CANE E0105 REID MATHEWS QUAD/3-AL 8 HOME MED HOME MED GABINO ALL EQUIP. EQUIP. [employer] ADJUSTBL/ FIX W/TIPS MANUAL 42801 PROFESSIO CROSSFIEL THERAPY 8 NAL REHAB D, TQS 1/> ASSOC DANNITA REGIONS PSC EACH 15 MINUTES PHYSICAL 52435 PROFESSIO CROSSFIEL THERAPY 8 NAL REHAB D, EVALUATIO ASSOC DANNITA N PSC THERAPEUT 02216 PROFESSIO CROSSFIEL IC PX 1/> 8 NAL REHAB D, AREAS ASSOC DANNITA EACH 15 PSC MIN EXERCISES RADEX HIP 55427 ZACK DIXON 8 [facility] UNILATERA INC INC L COMPLETE MINIMUM 2 VIEWS RADEX 71715 [place] [facility], SPINE 8 MEDICAL XAVI Mcdonald LUMBOSACR IMAGING AL ASSOCIATE MINIMUM 4 S VIEWS Encounters Encounter Start End Date Code Location Performer Type Date EMERGENCY 40071 RUDY JOINER DEPT 7 7 PHYSICIAN VISIT S, [facility] HIGH SEVERITY& THREAT [facility] ZACK - 7 7 [facility] INPATIENT [facility] ZACK - 6 6 [facility] OUTPATIEN [facility] T OFFICE 54670 CAMERON GORDILLO OUTPATIEN 6 6 MEDICAL T VISIT SERV 25 FOUNDATIO MINUTES N EMERGENCY 46643 ZACK DEPT 6 6 [facility] VISIT [facility] HIGH SEVERITY& THREAT [facility] ZACK - 6 6 [facility] OUTPATIEN [facility] ZACK - OTHER 6 6 [facility]PITAL ZACK - OTHER 6 6 [facility] OFFICE 90608 CAMERON GORDILLO OUTPATIEN 6 6 MEDICAL T VISIT SERV 25 FOUNDATIO MINUTES N OFFICE 30807 [facility] WILL OUTPATIEN 6 6 [facility] T VISIT INTERNAL 15 MEDI MINUTES HOSPITAL ZACK - 6 6 [facility] T OFFICE 49123 [facility] BESSON OUTPATIEN 6 6 [facility] TRACY T VISIT INTERNAL 15 MED MINUTES EMERGENCY 43606 ZACK 6 6 [facility] T VISIT HIGH/URGE NT SEVERITY EMERGENCY 18470 RUDY WANG DEPT 6 6 PHYSICIAN VISIT S, [facility] HIGH SEVERITY& THREAT FUNCJ EMERGENCY 65238 ZACK 6 6 [facility] T VISIT MODERATE SEVERITY EMERGENCY 35410 RUDY WILCOX 6 6 PHYSICIAN CH[facility]I DEPARTMEN S, PLLC T VISIT HIGH/URGE NT SEVERITY HOSPITAL ZACK - 6 6 [facility] OUTPATIEN INC T [facility] INPATIENT 6 6 [facility] IN[facility] 6 6 [facility] ZACK - 5 5 [facility] OUTPATIEN INC T EMERGENCY 03430 ZACK 5 5 [facility] DEPARTMEN INC T VISIT LOW/MODER SEVERITY [facility] INPATIENT 5 5 [facility] 5 5 [facility] ZACK - 5 5 [facility] INPATIENT INC OFFICE 46164 ZACK CONNELL 5 5 [facility] T VISIT 5 HOSPITAL MINUTES P EMERGENCY 73694 ZACK 5 5 [facility] DEPARTMEN INC T VISIT LIMITED/M INOR PROB OFFICE 03878 ZACK CONNELL 5 5 [facility] 10 P MINUTES [facility] ZACK - 5 5 [facility] OUTPATIEN INC T OFFICE 08077 CAMERON GORDILLO OUTPATIMICA 5 5 MEDICAL T VISIT SERV 25 FOUNDATIO MINUTES [facility] ZACK - 5 5 [facility] T [facility] ZACK - 5 5 [facility] T OFFICE 57129 [place] WILL OUTPATIMICA [address] [facility] T VISIT INTERNAL 25 MEDI MINUTES [facility] ZACK - 5 5 [facility] INC T OFFICE 70312 ZACK CALDERON OUTPATIEN 5 5 [facility] VISIT HOSPITAL 15 P MINUTES HOSPITAL ZACK - OTHER 5 5 [facility] OFFICE 09944 ZACK CONNELL 5 5 [facility] T VISIT HOSPITAL 10 P MINUTES [facility] INPATIENT 5 5 [facility] OFFICE [address] [place] ERIBERTO GORDILLO OUTDICKSONEN 5 5 MEDICAL T VISIT SERV 25 FOUNDATIO MINUTES N [facility] INPATIENT 5 5 [facility] IN[facility] 5 5 [facility] 5 5 [facility] ZACK - 5 5 [facility] INPATIENT [facility] EMERGENCY 95731 ZACK Dawn 5 5 [facility] T VISIT P LOW/MODER SEVERITY [facility]OSPITAL ZACK - 5 5 [facility] OUTPATIEN [facility] ZACK - 5 5 [facility] OUT[facility] OFFICE 19169 CAMERON GORDILLO OUTPATIEN 4 4 MEDICAL T VISIT SERV 25 FOUNDATIO MINUTES [facility] ZACK [facility] 4 4 [facility]EN [facility] ZACK [facility] 4 4 [facility] DEPT 4 4 ERIC IMT VISIT EMERGENCY HIGH PHYS SEVERITY& THREAT FUN EMERGENCY 85118 ZACK 4 4 [facility] VISIT MODERATE SEVERITY HOSPITAL ZACK [facility] OTHER 4 4 [facility] OFFICE [address]00 [place] ERIBERTO GORDILLO OUTPATIEN 4 4 MEDICAL T VISIT SERV 25 FOUNDATIO MINUTES [facility]OSPITAL ZACK - 4 4 [facility] OUTPATIEN [facility] ZACK - KELLIE 4 4 [facility] ZACK - 4 4 [facility]PATI[facility] INC OFFICE 10354 [facility] OUTPATIEN 3 3 PHYSICIAN JAM T VISIT S GROUP 15 MINUTES OFFICE 65222 CAMERON GORDILLO OUTPATIEN 3 3 MEDICAL T VISIT SERV 25 [facility] ZACK - 3 3 [facility] OUTPATIEN [facility] EMERGENCY 62272 ZACK 3 3 [facility] T VISIT LIMITED[facility]M INOR [facility] ZACK - 3 3 [facility] OUTPATIEN [facility] EMERGENCY 18194 EMEKA ALFORD 3 3 EMERGENCY III [facility] T VISIT HIGH/URGE NT SEVERITY EMERGENCY 11255 EMEKA LIRA DEPT 3 3 EMERGENCY VISIT SERVICES HIGH SEVERITY& THREAT FUN EMERGENCY 38025 ZACK 3 3 [facility] DEPARTMEN [facility] T VISIT HIGH/URGE NT SEVERITY HOSPITAL ZACK - 3 3 [facility] ZACK - 3 3 [facility] ZACK [facility] 3 3 [facility] OFFICE 11257 CAMERON GORDILLO OUTPATIEN 3 3 MEDICAL T VISIT SERV 25 [facility] ZACK [facility] 3 3 [facility]EN [facility] ZACK - 3 3 [facility] ZACK - 3 3 [facility] ZACK - 3 3 [facility] ZACK [facility] 3 3 [facility] ZACK - 2 2 [facility] OUT[facility] EMERGENCY 00924 EMEKA CASTELLANO DEPT 2 2 EMERGENCY VISIT SERVICES HIGH SEVERITY& THREAT [facility] ZACK - 2 2 [facility] OUTPATIEN [facility] ZACK - 2 2 [facility] OUTPATIEN [facility] OFFICE 20721 CAMERON WEI RAND OUTPATIEN 2 2 MEDICAL T VISIT SERV 25 [facility] ZACK - 2 2 [facility]IEN [facility] ZACK - 2 2 [facility]IEN [facility] ZACK [facility] 2 2 [facility] OUTPATIEN [facility] OFFICE 25995 CAMERON ERIBERTO GORDILLO OUTPATIEN 2 2 MEDICAL T VISIT SERV 15 [facility] ZACK - 2 2 [facility] OUTPATIEN [facility] EMERGENCY 87288 EMEKA ALFORD DEPT 2 2 EMERGENCY III NANCY VISIT SERVICES HIGH SEVERITY& THREAT [facility] ZACK - 2 2 [facility] OUTPATIEN [facility] EMERGENCY 76141 ZACK 2 2 [facility]EN [facility] T VISIT HIGH/URGE NT SEVERITY HOSPITAL ZACK - 2 2 [facility] EMERGENCY 15635 EMEKA WILCOX DEPT 2 2 EMERGENCY [facility] VISIT SERVICES HIGH SEVERITY& THREAT [facility] EMERGENCY 78824 ZACK 2 2 [facility] T VISIT HIGH/URGE NT SEVERITY HOSPITAL ZACK - 2 2 [facility] OUTPATIEN [facility] ZACK - 2 2 [facility] INPATIENT INC OFFICE 98224 FAMILY STRAWZELL OUTPATIEN 2 2 CARE CRI T VISIT ASSOCIATE 25 S, PSC MINUTES OFFICE 98929 FAMILY STRAWZELL OUTPATIEN 2 2 CARE CRI T VISIT ASSOCIATE 15 S, PSC MINUTES EMERGENCY 21586 ZACK 2 2 [facility] DEPARTMEN INC T VISIT LOW/MODER SEVERITY [facility]OSPITAL ZACK - 2 2 [facility] OUTPATIEN [facility] T EMERGENCY 18832 EMEKA ALFORD 2 2 EMERGENCY III [facility] SERVICES T VISIT HIGH/URGE NT SEVERITY OFFICE 72287 [place] WEISada GORDILLO OUTPATIEN 2 2 MEDICAL T VISIT SERV 25 [facility] ZACK - 2 2 [facility] OUTPATIEN [facility] T OFFICE 77252 PAWSAT PAWSAT OUTPATIEN 2 2 Aug T NEW 30 MINUTES HOSPITAL ZACK - 1 1 [facility] OUTPATIEN [facility] T OFFICE 32097 [place] ERIBERTO GORDILLO OUTPATIEN 1 1 MEDICAL T VISIT SERV 25 [facility] ZACK - 1 1 [facility] OUTPAT[facility]EN [facility] ZACK [facility] 1 1 [facility] ZACK [facility] 1 1 [facility] OUTPATIEN [facility] EMERGENCY 76267 ZACK 1 1 [facility] DEPARTMEN [facility] T VISIT MODERATE SEVERITY HOSPITAL ZACK - 1 1 [facility] OUT[facility]EN [facility] ZACK - 1 1 [facility] ZACK [facility] 1 1 [facility] OUTPATIEN [facility] T OFFICE 65201 NEW CROEWLL SON OUTPATIEN 1 1 [place] T NEW 45 CLINIC MINUTES [facility] ZACK [facility] 1 1 [facility] OUTPATIEN INC T OFFICE 54558 [place] ERIBERTO GORDILLO OUTPATIEN 1 1 MEDICAL T NEW 60 SERV MINUTES [facility] AZCK - 1 1 [facility] OUTPATIEN INC T OFFICE 35921 FAMILY LOGANBERRY OUTPATIEN 1 1 CARE NILO T VISIT ASSOCIATE 40 S MINUTES HOSPITAL ZACK - 1 1 [facility] OUTPATIEN INC T EMERGENCY 08798 EMEKA WU 1 1 EMERGENCY JAM DEPARTMEN SERVICES T VISIT MODERATE SEVERITY EMERGENCY 53247 ZACK 1 1 [facility] DEPARTMEN INC T VISIT LOW/MODER SEVERITY OFFICE 19303 FAMILY LOGANBERRY OUTPATIEN 1 1 CARE NILO T VISIT ASSOCIATE 25 S MINUTES OFFICE 57951 ANKUSH LECHUGA JR OUTPATIEN 1 1 ELAINE ELAINE T VISIT 15 MINUTES HOSPITAL ZACK - 1 1 [facility]IEN INC T OFFICE 83008 ANKUSH LECHUGA JR OUTPATIEN 1 1 ELAINE ELAINE T NEW 45 MINUTES HOSPITAL ZACK - 1 1 [facility] OUTPATIEN INC T HOSPITAL ZACK - 1 1 [facility] OUTPATIEN INC T OFFICE 00709 FAMILY JADA OUTPATIEN 1 1 CARE NILO T VISIT ASSOCIATE 25 S MINUTES EMERGENCY 52251 ZACK 1 1 [facility] DEPARTMEN INC T VISIT LOW/MODER SEVERITY HOSPITAL ZACK - 1 1 [facility] OUTPATIEN INC T EMERGENCY 87962 EMEKA CASTELLANO 1 1 EMERGENCY DEPARTMEN SERVICES T VISIT HIGH/URGE NT SEVERITY OFFICE 79085 FAMILY BRENDAN J OUTPATIEN 1 1 CARE T VISIT ASSOCIATE 15 S MINUTES EMERGENCY 60481 ZACK 0 0 [facility] DEPARTMEN INC T VISIT LOW/MODER SEVERITY HOSPITAL ZACK - 0 0 [facility] OUTPATIEN INC T EMERGENCY 53920 EMEKA WILCOX 0 0 EMERGENCY [facility] DEPARTMEN SERVICES T VISIT HIGH/URGE NT SEVERITY OFFICE 93398 FAMILY BRENDAN J OUTPATIEN 0 0 CARE T VISIT ASSOCIATE 15 S MINUTES OFFICE 60865 FAMILY BRENDAN J OUTPATIEN 0 0 CARE T VISIT ASSOCIATE 15 S MINUTES HOSPITAL ZACK - 0 0 [facility] OUTPATIEN INC T OFFICE 32744 FAMILY MULBERRY OUTPATIEN 0 0 CARE NILO T VISIT ASSOCIATE 25 S MINUTES HOSPITAL ZACK - 0 0 [facility] OUTPATIEN INC T [facility]OSPITAL ZACK - 0 0 [facility]IEN INC T OFFICE 93639 [facility] PHYSICIAN JAM T NEW 45 S GROUP MINUTES [facility] ZACK - 0 0 [facility] OUTPATIEN INC T EMERGENCY 32500 EMEKA WILCOX 0 0 EMERGENCY [facility] DEPARTMEN SERVICES T VISIT HIGH/URGE NT SEVERITY EMERGENCY 95569 ZACK 0 0 [facility] DEPARTMEN INC T VISIT MODERATE SEVERITY OFFICE 29807 FAMILY MULBERRY OUTPATIEN 0 0 CARE NILO T VISIT ASSOCIATE 25 S MINUTES OFFICE 29880 FAMILY MULBERRY, OUTPATIEN 0 0 CARE CLEO T T VISIT ASSOCIATE 15 S MINUTES OFFICE 47917 FAMILY MULBERRY, OUTPATIEN 0 0 CARE CLEO T T VISIT ASSOCIATE 25 S MINUTES OFFICE 85838 FAMILY MULBERRY, OUTPATIEN 0 0 CARE CLEO T T VISIT ASSOCIATE 15 S MINUTES OFFICE 63763 FAMILY MULBERRY, OUTPATIEN 0 0 CARE CLEO T T VISIT ASSOCIATE 25 S MINUTES EMERGENCY 32680 ALPHONSO CAMPBELL 0 0 EMERGENCY TAYA S VISIT SERVICES HIGH SEVERITY& ASSOCIATE THREAT S [facility] ZACK - 0 0 [facility] INPATIENT INC OFFICE 06158 FAMILY JADA, OUTPATIEN 0 0 CARE CLEO T T VISIT ASSOCIATE 15 S MINUTES EMERGENCY 37467 ZACK 0 0 [facility] DEPARTMEN INC T VISIT LOW/MODER SEVERITY HOSPITAL ZACK - 0 0 [facility] OUTPATIEN INC [facility] ZACK - 0 0 [facility] OUTPATIEN INC T OFFICE 16292 MEANS BUTROS, OUTPATIEN 9 9 ADULT RERANDALLLLA T VISIT PRIMARY 15 CARE [facility] ZACK - 9 9 [facility] OUTPATIEN INC T OFFICE 57173 MEANS BUTROS, OUTPATIEN 9 9 ADULT REVANESAA T VISIT PRIMARY 25 CARE [facility] ZACK - 9 9 [facility] OUTPATIEN INC T OFFICE 47806 MEANS BUTROS, CONSULTAT 9 9 ADULT REZSHEALLA ION PRIMARY [facility] PATIENT CENTER 80 MIN [facility] ZACK - 9 9 [facility] OUTPATIEN INC T OFFICE 52881 FAMILY JADA, OUTPATIEN 9 9 CARE CLEO T T VISIT ASSOCIATE 15 S MINUTES [facility] ZACK - 9 9 [facility] OUTPATIEN INC T OFFICE 07989 FAMILY JADA OUTPATIEN 9 9 CARE CLEO T T VISIT ASSOCIATE 25 S MINUTES OFFICE 04906 FAMILY JADA OUTPATIEN 9 9 CARE CLEO T T VISIT ASSOCIATE 25 S MINUTES OFFICE 93380 FAMILY KO OCAMPO 8 8 CARE R PADMINI T VISIT ASSOCIATE 25 S MINUTES HOSPITAL ZACK - 8 8 [facility] OUTPATIEN INC T OFFICE 48605 Sameer MARCOS 8 8 CARE G T VISIT ASSOCIATE 15 S MINUTES HOSPITAL ZACK - 8 8 [facility] OUTPATIEN INC T EMERGENCY 60955 ZACK [facility] L[facility]MODER SEVERITY [facility] ZACK - Rodrigo 8 [facility] 42975 ZACK Wallace 8 [facility]/M INOR PROB
--- OUTSIDE RECORDS SUMMARY | 2016-10-20 17:41 | External Medical Summary Rpt ---
Author Author , Organization [employer] Address Unknown Phone Unavailable Care Team Providers Care Real Property Appraiser Name Role Phone CALDERON VALENTINE, CALDERON Unavailable [...] TRACY RODRIGUEZ ALL, RODRIGUEZ ALL Unavailable Unavailable [facility] Unavailable Unavailable SERVICE, [facility] Unavailable Unavailable SERVICE, [facility] BUTROS, REZKALLA, Unavailable Unavailable BUTROS, REZKALLA [facility] Unavailable Unavailable CONSULTANTS O, [facility] CONS[facility] O [facility] Unavailable Unavailable CAMPUS, [facility] Unavailable Unavailable CAMPUS, [facility] Unavailable Unavailable [place], [facility] [...] S MARISOL ANDREZ, Unavailable Unavailable MARISOL ANDREZ [facility] Unavailable Unavailable INC, [facility] Unavailable [facility]available HOSPITAL P, [facility]ITAL P PETERS LANNY, PETERS LANNY Unavailable Unavailable PETERS LANNY, PETERS LANNY Unavailable Unavailable PETERS, GEE A, Unavailable Unavailable PETERS, GEE A [facility], Unavailable Unavailable [facility] JOINER, JOINER Unavailable Unavailable KLARISSA IMT, KLARISSA Unavailable Unavailable IMT [facility] Un[facility] Unavailable [facility], [facility] KOTTER JUAN J, KOTTER [...] E [facility] [place] Unavailable Unavailable INTERNAL MED, [facility] Unavailable Unavailable [facility] MEDI, [facility] Unavailable Unavailable SERVICES, [facility] MCKEMIE JR NANCY, Unavailable Unavailable MCKEMIE JR NANCY MICH CARLOS, MICH Unavailable Unavailable CARLOS [facility] EPPS P, Unavailable Unavailable [facility] MULBERRY NILO, Unavailable Unavailable MULBERRY NILO MULBERRY, CLEO T, Unavailable Unavailable MULBERRY, CLEO T CROWELL SON, CROWELL SON Unavailable Unavailable [facility] Unavailable Unavailable [facility], [facility] Clemente OCAMPO, Unavailable Unavailable Clemente [...] Unavailable Unavailable EQUIPME, [facility] Unavailable Unavailable EMERGENCY PHYS, [facility] Unavailable Unavailable CLINIC, [facility] STRAWZELL CRI, Unavailable Unavailable STRAWZELL CRI [facility], Unavailable Unavailable [facility], Unavailable Unavailable [facility] WEI RAND, WEI RAND Unavailable Unavailable WEHRMAN III NANCY, Unavailable Unavailable WEHRMAN III NANCY [facility] Unavailable Unavailable LLC, [facility] ELSA LIRA, ELSA LIRA Unavailable Unavailable Purpose Continuity of Care Document - 11-11-2007 through 2016 Problems Code Diagnosis DOS Provider Status E109 TYPE 1 09-14-2016 [facility] DIAB[facility]ES PHYSICIANS MELLITUS GROUP WITHOUT COMPLICATIO NS I213 ST 09-14-2016 [facility] ELEVATION PHYSICIANS MYOCARDIAL GROUP INFARCTION UNS SITE I739 PERIPHERAL 09-14-2016 [facility] VASCULAR PHYSICIANS DISEASE GROUP UNSPECIFIED N183 CHRONIC 09-14-2016 [facility] KIDNEY PHYSICIANS DISEASE GROUP STAGE 3 MODERATE E1142 TYPE 2 09-13-2016 [facility] P W/DIAB POLYNEUROPA THY I119 HYPERTENSIV 09-13-2016 [facility] HEART PHYSICIANS, DISEASE PLLC WITHOUT HEART FAILURE I129 HYPERTENSIV 09-13-2016 [facility] CKD [facility] W/STAGE 1-4 INC CKD OR UNS CKD H72620 [facility] [place] [facility] 09-13-2016 [facility] COR ART [facility] W/UNSTABLE INC ANGINA PECTORIS I5043 ACUTE ON 09-13-2016 [facility] P SYSTOLIC & DIASTOLIC CHF I773 ARTERIAL 09-13-2016 [facility] FIBROMUSCUL [facility] AR INC DYSPLASIA R0602 SHORTNESS 09-13-2016 [facility] OF BREATH PHYSICIANS GROUP R0689 OTHER 09-13-2016 [facility] AMBULANCE ES OF SERVICE BREATHING Z794 PENITENTIARY 09-13-2016 [facility] CURRENT USE [facility] OF INSULIN INC E039 HYPOTHYROID 06-09-2016 [facility] ISM [facility] UNSPECIFIED INC E118 TYPE 2 06-09-2016 [facility] DIABETES [facility] MELLITUS INC W/UNS COMPLICATIO NS E119 TYPE 2 03-21-2016 [facility] MELLITUS FOUNDATION WITHOUT COMPLICATIO NS M810 AGE-RELATED 03-21-2016 [facility] OSTEOPOROSI FOUNDATION S W/O CURRNT PATH FX N184 CHRONIC 03-21-2016 [facility] DISEASE FOUNDATION STAGE 4 SEVERE N250 RENAL 03-21-2016 [place] [facility] OSTEODYSTRO SERV PHY FOUNDATION N390 URINARY 03-18-2016 [facility]CT PHYSICIANS INFECTION LA SITE NOT SPECIFIED B21101 TYPE 2 02-28-2016 [facility] MELLITUS [facility] P W/HYPOGLYCE VICTORIANO W/O COMA E162 HYPOGLYCEMI 02-28-2016 [facility] A PHYSICIANS, UNSPECIFIED PLLC E876 HYPOKALEMIA 02-28-2016 [facility] INC I10 ESSENTIAL 02-28-2016 [facility] HYPERTENSIO [facility] P N I5032 CHRONIC 02-28-2016 [facility] P HEART FAILURE R410 DISORIENTAT 02-28-2016 [facility] I[facility]ANCE UNSPECIFIED SERVICE Z591 INADEQUATE 02-28-2016 [facility] HOSP INC Q65576 OTHER LONG 02-28-2016 [facility] TER[facility] CURRENT INC DRUG THERAPY G4733 OBSTRUCTIVE 02-15-2016 [facility] SLEEP HOME APNEA ADULT MEDICAL PEDIATRIC EQUIPME U02317O MX FX 02-15-2016 [facility] PELVIS STBL HOME DISRUPT MEDICAL PELV RING EQUIPME INIT CHANDRIKA FX I8310 VARICOSE 09-17-2015 [facility] UNS VALLEY LOWER INTERNAL EXTREM MEDI W/INFLAMMAT ION M129 ARTHROPATHY 09-17-2015 [facility] UNSPECIFIED INTERNAL MEDI Z9111 PATIENTS 09-07-2015 [facility] NONCOMPLIAN VALLEY CE WITH INTERNAL DIETARY MEDI REGIMEN N189 CHRONIC 09-05-2015 [facility] KIDNEY PHYSICIANS, DISEASE PLLC UNSPECIFIED R1110 VOMITING 09-05-2015 [facility] UNSPECIF[facility]ICAL IMAGING ASS R404 TRANSIENT 09-05-2015 [facility] ALTERATION MEDICAL OF IMAGING ASS AWARENESS R4182 ALTERED 09-05-2015 [facility] MENTAL PHYSICIANS, STATUS PLLC UNSPECIFIED R464 SLOWNESS 09-05-2015 [facility] RESPONSIVEN SERVICE ESS A96390 CELLULITIS 08-16-2015 [facility] OF RIGHT VALLEY LOWER LIMB INTERNAL MED P19389 CELLULITIS 08-16-2015 [facility] OF LEFT VALLEY LOWER LIMB INTERNAL MED E1021 TYPE 1 08-10-2015 [facility] DIABETES [facility] MELLITUS INC W/DIABETIC NEPHROPATHY E1065 TYPE 1 08-10-2015 [facility] DIABETES [facility] MELLITUS INC WITH HYPERGLYCEM IA E138 OTH SPEC 08-10-2015 [facility] DIABETES PHYSICIANS, MELLITUS PLLC W/UNS COMPLICATIO NS P40098 CELLULITIS 08-10-2015 [facility] OF PHYSICIANS, UNSPECIFIED PLLC PART OF LIMB R739 HYPERGLYCEM 08-10-2015 [facility] [place] [facility]ANCE UNSPECIFIED SERVICE L853 XEROSIS 08-09-2015 [facility] CUTIS [place] INTERNAL MED E6601 MORBID 08-05-2015 [facility] SEVERE VALLEY OBESITY DUE INTERNAL TO EXCESS MEDI CALORIES I270 PRIMARY 07-20-2015 [facility] PULMONARY [facility] HYPERTENSIO CAMPUS N I5030 UNSPECIFIED 07-20-2015 [facility] CONGESTIVE [place] HEART FAILURE R0600 DYSPNEA 07-20-2015 [facility] M542 CERVICALGIA 07-12-2015 [facility] M546 PAIN IN 07-12-2015 [facility] THORACIC MOBILEX SPINE I509 HEART 07-11-2015 [facility] FAILURE VALLEY UNSPECIFIED INTERNAL MED I8311 VARICOSE 07-11-2015 [facility] RT [facility] LOWER INTERNAL EXTREMITY MED W/INFLAMMAT ION M4003 POSTURAL 07-11-2015 [facility] KYPHOSIS [facility] CERVICOTHOR INTERNAL ACIC REGION MED R05 COUGH 06-05-2015 [facility] R600 LOCALIZED 05-09-2015 [facility] LAR CONSULTANTS O I348 OTHER 05-05-2015 [facility] MEDICAL NONRHEUMATI SERV C MITRAL FOUNDATION VALVE DISORDERS I361 NONRHEUMATI 05-05-2015 [facility] C TRICUSPID SERV VALVE FOUNDATION INSUFFICIEN CY I371 NONRHEUMATI 05-05-2015 [facility] C PULMONARY SERV VALVE FOUNDATION INSUFFICIEN [...] INC ADULT N3020 OTHER 04-28-2015 [facility] CHRONIC [facility] P WITHOUT HEMATURIA J209 ACUTE 03-31-2015 [facility] BRONCHITIS [facility] UNSPECIFIED INC E34603 PERSONAL 03-31-2015 [facility] HISTORY OF [facility] HOS[facility] NICOTINE INC DEPENDENCE A499 BACTERIAL 03-23-2015 [facility] INFECTION SERV UNSPECIFIED FOUNDATION R279 UNSPECIFIED 03-19-2015 [facility] LACK OF MEM HOS[facility] COORDINATIO INC N Z5189 ENCOUNTER 03-19-2015 [facility] FOR OTHER [facility] SPECIFIED INC AFTERCARE 44336 DIAB W/O 03-17-2015 [facility] COMP TYPE I HOME [JUV] NOT MEDICAL STATED EQUIPME UNCNTRL 74349 OBSTRUCTIVE 03-17-2015 [facility] SLEEP HOME APNEA MEDICAL EQUIPME 60697 MULTIPLE 03-17-2015 [facility] CLOSED HOME PELVIC FX MEDICAL DISRUPT EQUIPME PELVIC [place]AIRIE BAND 2449 UNSPECIFIED 03-10-2015 [facility] HYPOTHYROID INC ISM 97785 DIAB W/O 03-10-2015 [facility] COMP TYPE [facility] II/UNS NOT INC STATED UNCNTRL 5854 CHRONIC 03-10-2015 [facility] KIDNEY [facility] DISEASE INC STAGE IV (SEVERE) 5990 URINARY 03-10-2015 [facility] TRACT [facility] INFECTION INC SITE NOT SPECIFIED 37719 UNSPECIFIED 03-10-2015 [facility] OSTEOPOROSI INC S 4019 UNSPECIFIED 03-02-2015 [facility] ESSENTIAL [place] HYPERTENSIO INTERNAL N MEDI 4541 VARICOSE 03-02-2015 [facility] [place] LOWER [place] INTERNAL EXTREMITIES MEDI W/INFLAMMAT ION 75521 UNSPECIFIED 03-02-2015 [place] CONSTIPATIO INTERNAL N MEDI 5939 UNSPECIFIED 03-02-2015 [facility] DISORDER VALLEY OF KIDNEY INTERNAL AND URETER MEDI 7823 EDEMA 03-02-2015 [facility] [place] INTERNAL MEDI 41702 UNSPECIFIED 03-02-2015 [facility] RETENTION [place] OF URINE INTERNAL MEDI 14715 UNSPECIFIED 02-24-2015 [facility] ARTHROPATHY [facility] P MULTIPLE SITES 7813 LACK OF 02-24-2015 [facility] P V571 OTHER 02-24-2015 [facility] PHYSICAL [facility] THERAPY INC 5952 OTHER 02-03-2015 [facility] CYSTITIS [facility] P 2761 HYPOSMOLALI 01-17-2015 [facility] TY AND/OR HEALTH HYPONATREMI CAMPUS A 80181 LEUKOCYTOSI 01-17-2015 [facility] S HEALTH UNSPECIFIED CAMPUS 5849 ACUTE 01-17-2015 [facility] KIDNEY HEALTH FAILURE CAMPUS UNSPECIFIED 7197 DIFFICULTY 01-17-2015 [facility] IN WALKING HEALTH CAMPUS 10993 MUSCLE 01-17-2015 [facility] WEAKNESS HEALTH (GENERALIZE CAMPUS D) 6171 UNSPECIFIED 01-17-2015 [facility] DEBILITY HEALTH CAMPUS 9953 ALLERGY 01-17-2015 [facility] UNSPECIFIED HEALTH NOT CAMPUS ELSEWHERE CLASSIFIED 85964 HTN CKD UNS 12-25-2014 [place] [facility]ICAL W/CKD SERV STAGE I FOUNDATION THRU STAGE IV/UNS 515 POSTINFLAMM 12-16-2014 [facility] ATORY [facility] PULMONARY FIBROSIS V5881 FITTING AND 12-16-2014 [facility] ADJUSTMENT [facility]BI[facility] OF VASCULAR CATHETER 4280 CONGESTIVE 12-09-2014 [facility] HEART [facility]BI[facility] FAILURE UNSPECIFIED 4293 CARDIOMEGAL 12-09-2014 [facility] Y [facility] 1101 DERMATOPHYT 12-04-2014 [facility] OSIS OF E NAIL 32045 DIAB 12-04-2014 [facility] W/PERIPH E CIRC D/O TYPE II/UNS NOT UNCNTRL 4439 UNSPECIFIED 12-04-2014 [facility] PERIPHERAL E VASCULAR DISEASE 9172 FOOT&TOE 12-04-2014 [facility] BLISTER E WITHOUT MENTION OF INFECTION 9243 CONTUSION 12-04-2014 [facility] OF TOE E 28940 ABDOMINAL 11-03-2014 [place] PAIN RIGHT MEDICAL UPPER IMAGING ASS QUADRANT 5533 DIAPHRAGMAT 11-01-2014 [place] KODY W/O MEDICAL MENTION IMAGING ASS OBSTRUCTION /GANGREN 7905 OTHER 11-01-2014 [place] NONSPECIFIC MEDICAL ABNORMAL IMAGING ASS SERUM ENZYME LEVELS 7862 COUGH 10-30-2014 [facility] V5869 LONG-TERM 10-30-2014 [facility] (CURRENT) [facility] USE OF INC OTHER MEDICATIONS 30206 UNSPECIFIED 10-28-2014 [place] OTALGIA [facility] 7224 DEGENERATIO 10-28-2014 [place] N OF MEDICAL CERVICAL IMAGING ASS INTERVERTEB RAL DISC 7231 CERVICALGIA 10-28-2014 [facility] 16277 SENILE 06-23-2014 [facility] OSTEOPOROSI [facility] S INC 2689 UNSPECIFIED 05-20-2014 [facility] VITAMIN D [facility] DEFICIENCY INC 2724 OTHER AND 05-20-2014 [facility] UNSPECIFIED [facility]OS[facility] INC HYPERLIPIDE VICTORIANO 78594 OTHER 05-20-2014 [facility] OSTEOPOROSI [facility] S INC 05726 HYPERTENSIV 02-20-2014 [facility] E HEART [facility] DISEASE INC UNSPEC W/HEART FAIL 4660 ACUTE 02-20-2014 [facility] BRONCHITIS [facility] INC 490 BRONCHITIS 02-20-2014 [facility] NOT N [facility]ERGENCY SPECIFIED PHYS ACUTE OR CHRONIC 80852 SWELLING OF 02-20-2014 [facility] N EMERGENCY PHYS 5853 CHRONIC 11-18-2013 [facility] SERV DISEASE FOUNDATIO STAGE III (MODERATE) 586 UNSPECIFIED 10-29-2013 [facility] RENAL PHYSICIANS FAILURE [place] 7262 OTHER 05-30-2013 [facility] AFFECTIONS PHYSICIANS OF SHOULDER GROUP REGION NEC 75619 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-2013 [facility] 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 20738 DISORDER OF 05-21-2013 [place] BONE AND MEDICAL CARTILAGE IMAGING ASS UNSPECIFIED V1559 PERSONAL 05-21-2013 [place] HISTORY OF MEDICAL OTHER IMAGING ASS INJURY V4981 ASYMPTOMATI 05-21-2013 [place] C MEDICAL POSTMENOPAU IMAGING ASS KEELY STATUS 60007 UNSPECIFIED 04-29-2013 [facility] INFECTION SERVICES IN CCE & UNS SITE 4659 ACUTE URIS 04-29-2013 [facility] OF EMERGENCY UNSPECIFIED SERVICES SITE 71236 CRAMP OF 04-05-2013 [facility] LIMB PHYSICIANS [place] 7241 PAIN IN 01-16-2013 [facility] SPINE [facility] P 67618 ORTHOPNEA 01-16-2013 [facility] P 91081 OTHER 01-16-2013 [facility] DYSPNEA AND EMERGENCY SERVICES RESPIRATORY ABNORMALITI ES 7265 ENTHESOPATH 10-17-2012 [facility] Y OF HIP [facility] REGION INC 31201 PAIN IN 08-22-2012 [place] JOINT MEDICAL PELVIC IMAGING ASS REGION AND THIGH 2749 GOUT, 07-16-2012 [place] [address] SHORTNESS 05-28-2012 [facility]IC 4240 MITRAL 05-27-2012 [facility] DISORDERS INC 96450 OSTEOARTHRO 05-27-2012 [facility] S UNSPEC [facility] WHETHER INC GEN/LOC UNSPEC SITE 38867 CHEST PAIN 05-27-2012 [place] UNSPECIFIED MEDICAL IMAGING ASS 80004 OTHER CHEST 05-27-2012 [facility] P 5859 CHRONIC 12-01-2011 [facility] KIDNEY [facility] DISEASE INC UNSPECIFIED 76152 HYPERSOMNIA 11-15-2011 [facility] WITH SLEEP [facility] APNEA UNSPECIFIED 44199 ANEMIA OF 10-30-2011 [facility] P DISEASE 2859 UNSPECIFIED 10-30-2011 [facility] ANEMIA [facility] 92438 DEGEN 10-30-2011 [place] THORACIC/TH MEDICAL ORACOLUMBAR IMAGING ASS INTERVERTEB RAL DISC 06991 DEGEN 10-30-2011 [place] LUMBAR/LUMB MEDICAL OSACRAL IMAGING ASS INTERVERTEB RAL DISC 7242 LUMBAGO 10-30-2011 [facility] P 7245 UNSPECIFIED 10-30-2011 [facility] BACKACHE [facility] SERVICES 7840 HEADACHE 10-30-2011 [facility] INC 84676 OTHER 10-20-2011 [place] DISEASES OF MEDICAL LUNG NOT IMAGING ASS ELSEWHERE CLASSIFIED 5199 UNSPECIFIED 10-20-2011 [place] DISEASE OF MEDICAL IMAGING ASS RESPIRATORY SYSTEM V5867 LONG-TERM 10-19-2011 [facility] USE OF [facility] P 3559 MONONEURITI 10-14-2011 [facility] S OF HOME UNSPECIFIED MEDICAL SITE EQUIPME 70875 OTHER 10-14-2011 [facility] MALAISE AND HOME FATIGUE MEDICAL EQUIPME 5180 PULMONARY 10-05-2011 [place] COLLAPSE MEDICAL IMAGING ASS 57695 OTHER 09-30-2011 [facility] STAPHYLOCOC [facility] CUS INC INFECTION IN CCE & UNS SITE 2768 HYPOPOTASSE 09-30-2011 [facility] VICTORIANO [employer] 2888 OTHER 09-30-2011 [facility] SPECIFIED DISEASE OF ASSOCIATES, WHITE BLOOD PSC CELLS 4599 UNSPECIFIED 09-30-2011 [facility] CIRCULATORY INC SYSTEM DISORDER 486 PNEUMONIA, 09-30-2011 [facility] ORGANISM [facility] UNSPECIFIED INC 93180 OTHER 09-30-2011 [place] SPECIFIED MEDICAL DISORDERS IMAGING ASS OF BLADDER 24107 OSTEOARTHRO 09-30-2011 [place] SIS UNSPEC MEDICAL WHETHER IMAGING ASS GEN/LOC LOWER LEG 42308 EFFUSION OF 09-30-2011 [place] LOWER LEG MEDICAL JOINT IMAGING ASS 7291 UNSPECIFIED 09-30-2011 [facility] MYALGIA [employer] MYOSITIS 7295 PAIN IN 09-30-2011 [facility] SOFT TISSUES OF ASSOCIATES, LIMB PSC 7821 RASH AND 09-14-2011 [facility] OTHER NONSPECIFIC ASSOCIATES, SKIN PSC ERUPTION V770 SCREENING 09-14-2011 [facility] FOR THYROID DISORDER ASSOCIATES, [facility] V7791 SCREENING 09-14-2011 [facility] FOR LIPOID DISORDERS ASSOCIATES, PSC 42038 DIAB 06-24-2011 [facility] W/NEURO MANIFESTS TYPE II/UNS NOT UNCNTRL 7038 OTHER 06-24-2011 [facility] MAR SPECIFIED DISEASE OF NAIL 26216 SECONDARY 03-29-2011 [facility] OSTEOARTHRO CLINIC PSC SIS LOWER LEG 71098 PAIN IN 03-29-2011 [facility] JOINT, [facility]OS[facility] LOWER LEG INC 67029 BACKGROUND 03-25-2011 [facility] DIABETIC VISION RETINOPATHY 80570 NUCLEAR 03-25-2011 [facility] SCLEROSIS VISION 7820 DISTURBANCE 02-09-2011 [facility] OF SKIN [facility] SENSATION INC 2767 HYPERPOTASS 02-07-2011 [facility] EMIA ASSOCIATES 460 ACUTE 02-07-2011 [facility] NASOPHARYNG ASSOCIATES ITIS 6929 CONTACT 01-27-2011 [facility] DERMATITIS& EMERGENCY OTHER SERVICES ECZEMA DUE UNSPEC CAUSE 91382 PAIN IN 12-09-2010 [facility] JOINT, ASSOCIATES MULTIPLE SITES 64546 UNSPEC 10-28-2010 ALLRAN JR VENTRAL ELAINE KODY W/O MENTION OBST/GANGRE N 01357 ABDOMINAL 09-21-2010 [facility] PAIN, [facility] GENERALIZED INC 7831 ABNORMAL 08-24-2010 [facility] WEIGHT GAIN PHYSICIANS LA 5110 PLEURISY 07-18-2010 [facility] WITHOUT EMERGENCY MENTION SERVICES EFFUS/[place] [address] PAINFUL 07-18-2010 [place] RESPIRATION MEDICAL IMAGING ASS 2721 PURE 07-08-2010 [facility] HYPERGLYCER PHYSICIANS IDEMIA [place] 7944 NONSPECIFIC 07-07-2010 [facility] ABNORM ASSOCIATES RESULTS KIDNEY FUNCTION STUDY 38440 ASTHMA, 06-16-2010 [facility] UNSPECIFIED EMERGENCY , SERVICES UNSPECIFIED STATUS 21292 DIAB 05-21-2010 [facility] LANNY W/OPHTH MANIFESTS TYPE II/UNS NOT UNCNTRL 8250 CLOSED 04-28-2010 [facility] FRACTURE OF [facility] CALCANEUS INC V5416 AFTERCARE 04-28-2010 [place] HEALING MEDICAL TRAUMATIC IMAGING ASS FRACTURE LOWER LEG 8248 UNSPECIFIED 03-31-2010 [place] CLOSED MEDICAL FRACTURE OF IMAGING ASS ANKLE 81017 OTHER ANKLE 03-31-2010 [facility] [employer] STR[facility] S INC 9596 INJURY 02-17-2010 [place] OTHER AND MEDICAL UNSPECIFIED IMAGING ASS HIP AND THIGH 9597 INJURY 02-17-2010 [place] OTHER&UNSPE MEDICAL CIFIED KNEE IMAGING ASS LEG ANKLE&FOOT 920 CONTUSION 02-16-2010 [facility] OF FACE EMERGENCY SCALP AND SERVICES NECK EXCEPT EYE 04359 CONTUSION 02-16-2010 [facility] OF HIP [facility] INC E8859 FALL FROM 02-16-2010 [facility] OTHER EMERGENCY SLIPPING SERVICES TRIPPING OR STUMBLING 97612 INSOMNIA 02-04-2010 [facility] UNSPECIFIED ASSOCIATES V0382 NEED PROPH 02-04-2010 [facility] VACCINATION ASSOCIATES AGAINST STREP PNEUMONE 37278 URINARY 11-04-2009 [facility] FREQUENCY ASSOCIATES 2811 OTHER 08-24-2009 [facility] VITAMIN B12 ASSOCIATES DEFICIENCY ANEMIA 514 PULMONARY 08-24-2009 [facility] CONGESTION ASSOCIATES AND HYPOSTASIS E8490 PLACE OF 07-10-2009 [place] OCCURRENCE, MEDICAL HOME IMAGING ASSOCIATES 56093 GEN 04-15-2009 [facility] INVOLVING MULTIPLE SITES 7919 OTHER 03-31-2009 [facility] NONSPECIFIC [facility] FINDING INC EXAMINATION OF URINE 81102 NEPHRITIS&N 03-24-2009 [facility]ULT EPHROPATHY PRIMARY W/OTH CARE CENTER PATHOLOG KIDNEY LES 69708 NOCTURIA 03-11-2009 [facility] 05897 HYPERSOMNIA 02-26-2009 [facility] UNSPECIFIED 44403 DIAB 11-28-2008 [facility] W/OPHTH GEE A MANIFESTS TYPE II/UNS TYPE UNCNTRL 4619 ACUTE 06-17-2008 [facility] SINUSITIS, ASSOCIATES UNSPECIFIED 8082 CLOSED 03-18-2008 PROF[facility] FRACTURE OF L REHAB PUBIS ASSOC PSC 7089 UNSPECIFIED 11-17-2007 [facility] URTICARIA ASSOCIATES 6868 OTH SPEC 11-12-2007 PSYCHIATRIC SKIN&SUBCUT PROF SERV TISSUE V642 SURG/OTH 11-11-2007 [facility] PROC NOT [facility] CARRIED OUT INC BECAUSE PTS DECN Immunization Name Date Route CVX Reacti Commen Provid Is Given on t er Refuse d PPSV23 FAMILY No 2009 CARE VACCIN ASSOCI E 2 ATES YRS OR OLDER FOR SUBQ/I M USE Procedures Procedure DOS Code Location Performer Comment SBSQ 84438 [facility] 7 PHYSICIAN CARE/DAY S GROUP 25 MINUTES AMBULANCE A0429 [facility] 7 AMBULANCE AMBULANCE BLS SERVICE SERVICE EMERGENCY [facility]SP[facility] A0425 [facility] PER SERVICE SERVICE STATUTE MILE ECG 04779 [facility] BARRETO JR ROUTINE 7 [facility] W/LEAST P 12 LDS I&R ONLY INITIAL 34926 [facility] 7 PHYSICIAN CARE/DAY S GROUP 70 MINUTES MEASUREME [id number] [facility] NT 7 [facility] CARDIAC INC INC SAMPLING PRESS LT HEART PERQ DILAT [id number] [facility] CORONARY 7 [facility] ART 2 ART INC INC 2 RX-ELUT IL DEVC PERQ FLUORO [id number] [facility] MULTI 7 [facility] CORONARY INC INC ARTERIES LOW OSMOLAR CONT FLUOROSCO [id number] [facility] PY LEFT 7 [facility]OS[facility] HEART LOW INC INC OSMOLAR CONTRAST FLUORO T2443PH [facility] BILATERAL 7 [facility] RENAL INC INC ART LOW OSMOLAR CONTRST COLLECTIO 23934 [facility] N VENOUS 6 [facility] BLOOD INC INC VENIPUNCT URE COMPREHEN 88982 [facility] SIVE 6 [facility] [place] [address] [facility] THYROID 6 [facility] H[facility] STIMULATI INC INC NG HORMONE TSH LIPID 75168 [facility] PANEL 6 [facility] INC INC HEMOGLOBI 53443 [facility] N 6 [facility] GLYCOSYLA INC INC ALEX A1C 25 58349 COMBINED COMBINED HYDROXY 6 PHYSICIAN PHYSICIAN INCLUDES S LA S LA FRACTIONS IF PERFORMED CULTURE 36047 COMBINED COMBINED BACTERIAL 6 PHYSICIAN PHYSICIAN S LA S LA QUANTTATI VE COLONY COUNT URINE CULTURE 29681 COMBINED COMBINED BCT 6 PHYSICIAN PHYSICIAN ISOL&PRSM S LA S LA PTV ID ISOLATE EA URINE RENAL 02428 COMBINED COMBINED FUNCTION 6 PHYSICIAN PHYSICIAN PANEL S LA S LA URNLS DIP 17735 COMBINED COMBINED 6 PHYSICIAN PHYSICIAN STICK/TAB S LA S LA LET REAGENT AUTO MICROSCOP Y BLOOD 91666 COMBINED COMBINED COUNT 6 PHYSICIAN PHYSICIAN COMPLETE S LA S LA AUTO&AUTO DIFRNTL WBC VOLUME 02880 COMBINED COMBINED MEASUREME 6 PHYSICIAN PHYSICIAN NT TIMED S LA S LA COLLECTIO N EACH A4258 ARRIVA ARRIVA WERED 6 MEDICAL SANDBLASTER PAINT SPRAYER FOR LANCET EACH NORMAL A4256 ARRIVA ARRIVA LOW AND 6 MEDICAL MEDICAL HIGH CALIBRATO R SOLUTION/ CHIPS LANCETS A4259 ARRIVA ARRIVA PER BOX 6 MEDICAL MEDICAL OF 100 BLD GLU A4253 ARRIVA ARRIVA TEST/REAG 6 MEDICAL MEDICAL T STRIPS HOME BLD GLU MON-50 BASIC 10356 [facility] METABOLIC 6 [facility] PANEL INC INC CALCIUM TOTAL GLUC BLD 69015 [facility] GLUC MNTR 6 [facility] DEV INC INC CLEARED FDA SPEC HOME USE COLLECTIO 84185 [facility] N VENOUS 6 [facility] BLOOD [facility] G0378 [facility] D[facility] OBSERVATI 6 [facility] ON INC INC SERVICE PER HOUR COMPREHEN 59351 [facility] SIVE 6 [facility] METABOLIC INC INC PANEL CREATINE 68090 Z[facility] KINASE MB 6 [facility]CTION [facility] G0378 [facility] D[facility] OBSERVATI 6 [facility] ON INC INC SERVICE PER HOUR COLLECTIO 80272 [facility] N VENOUS 6 [facility] BLOOD INC INC VENIPUNCT URE GLUC BLD 12933 [facility] GLUC MNTR 6 [facility] DEV INC INC CLEARED FDA SPEC HOME USE BLOOD 27660 [facility] COUNT 6 [facility] COMPLETE INC INC AUTO&AUTO DIFRNTL WBC URNLS DIP 32415 [facility] STICK/TAB INC INC LET REAGENT AUTO MICROSCOP Y PRESSURIZ 51957 [facility] ED/NONPRE 6 [facility] SSURIZED INC INC INHALATIO N TREATMENT CREATINE 43339 [facility] KINASE 6 [facility] TOTAL INC INC THER 50730 [facility] PROPH/DX 6 [facility] NJX IV INC INC PUSH SINGLE/1S T SBST/DRUG ECG 96582 [facility] ROUTINE 6 [facility] ECG INC INC W/LEAST 12 LDS TRCG ONLY W/O I&R AMB A0427 [facility]ICE 6 [facility] ALS SERVICE SERVICE EMERGENCY TRANSPORT LEVEL 1 GROUND A0425 [facility] MILEA 6 [facility] AMBULANCE PER SERVICE SERVICE STATUTE MILE ECG 05576 [facility]LE[facility] ROUTINE 6 [facility] W/LEAST P 12 LDS I&[place] [address] [facility] TROPONIN 6 [facility] MEM [...] HOME R MEDICAL MEDICAL EQUIPME EQUIPME COLLECTIO 14349 [facility] D[facility] N VENOUS 6 [facility] BLOOD INC INC VENIPUNCT URE BASIC 59770 [facility] DIXON METABOLIC 6 MEM [facility] PANEL INC INC CALCIUM TOTAL LIPID 66652 [facility] DIXON PANEL 6 [facility] INC INC HEMOGLOBI 63057 [facility] N 6 [facility] GLYCOSYLA INC INC ALEX A1C HOS BED E0260 REID MATHEWS SEMI-ELEC 6 HOME HOME W/ANY MEDICAL MEDICAL TYPE SIDE EQUIPME EQUIPME RAIL W/MATTRSS STANDARD K0001 REID MATHEWS WHEELCHAI 6 HOME HOME R MEDICAL MEDICAL EQUIPME EQUIPME URNLS DIP 45764 [facility] DIXON 6 [facility] [...] STRIPS HOME BLD GLU MON-50 GLUC BLD 98953 ZACK DIXON GLUC MNTR 6 [facility] DEV INC INC CLEARED FDA SPEC HOME USE OBSERVATI 08487 [facility] WILL ON CARE 6 [place] CHARMAINE DISCHARGE INTERNAL [facility] [id number] ZACK [facility]IXON OBSERVATI 6 [facility] ON [facility] G0378 [facility] D[facility] OBSERVATI 6 [facility] ON INC INC SERVICE PER HOUR BASIC 61528 ZACK DIXON METABOLIC 6 [facility] PANEL INC INC CALCIUM TOTAL COLLECTIO 51871 ZACK DIXON N VENOUS 6 [facility] [place] [address] ZACK DIXON TROPONIN 6 [facility] QUANTITAT INC INC MARIBEL BLOOD 29533 ZACK DIXON COUNT 6 [facility] COMPLETE INC INC AUTO&AUTO DIFRNTL WBC GLUC BLD 58810 ZACK DIXON GLUC MNTR 6 [facility] DEV INC INC CLEARED FDA SPEC HOME USE CREATINE 71889 ZACK DIXON KINASE 6 [facility] [place] [address] ZACK DIXON LIPASE 6 [facility] INC INC ECG 91722 ZACK DIXON ROUTINE 6 [facility] ECG INC INC W/LEAST 12 LDS TRCG ONLY W/O I&R URNLS DIP 27429 Z[facility] DIXON 6 [facility] STICK/TAB INC INC LET REAGENT AUTO MICROSCOP Y THERAPEUT 89520 [facility] DIX[facility] IC 6 [facility] INJECTION INC [place] [address] ZACK DIXON TROPONIN 6 [facility] QUANTITAT INC INC MARIBEL GLUC BLD 96292 ZACK DIXON GLUC MNTR 6 [facility] DEV INC INC CLEARED FDA SPEC HOME USE BLOOD 21674 ZACK DIXON COUNT 6 [facility] COMPLETE INC INC AUTO&AUTO DIFRNTL WBC ECG 52577 ZACK BARRETO JR ROUTINE 6 [facility] W/LEAST P 12 LDS I&R ONLY INITIAL 66951 [facility] VINAY OBSERVATI 6 [facility] ON INTERNAL CARE/DAY MED 30 MINUTES GROUND A0425 [facility] MILEAGE 6 AMBULANCE AMBULANCE [place] [address] ZACK DIXON INFUSION 6 [facility] THERAPY/P INC INC ROPHYLAXI S /DX 1ST TO 1 HR COMPREHEN 24724 Z[facility] DIXON SIVE 6 [facility] METABOLIC INC INC PANEL CREATINE 83937 ZACK DIXON KINASE MB 6 [facility] FRACTION INC INC ONLY INJECTION J2405 ZACK DIXON 6 [facility] ONDANSETR INC INC ON HCL PER [facility] G0378 [facility] DIX[facility] OBSERVATI 6 [facility] ON INC INC SERVICE PER HOUR RADIOLOGI 47366 ZACK DIXON C 6 [facility] EXAMINATI INC [place] [address] ZACK DIXON HEAD/BRAI 6 [facility] N W/O INC INC CONTRAST MATERIAL COLLECTIO 65057 ZACK DIXON N VENOUS 6 [facility] BLOOD INC INC VENIPUNCT URE AMB A0427 [facility] SERVICE 6 AMBULANCE AMBULANCE ALS SERVICE SERVICE EMERGENCY TRANSPORT LEVEL 1 [place] [address] COMBINED COMBINED THYROID 6 PHYSICIAN PHYSICIAN STIMULATI S LA S LA NG HORMONE TSH BASIC 45263 COMBINED COMBINED METABOLIC 6 PHYSICIAN PHYSICIAN [place] [address] COMBINED COMBINED BLOOD/URI 6 PHYSICIAN PHYSICIAN C ACID S LA S LA ALBUMIN 64220 COMBINED COMBINED SERUM 6 PHYSICIAN PHYSICIAN PLASMA/WH S LA S LA OLE BLOOD BLOOD 16207 COMBINED COMBINED COUNT 6 PHYSICIAN PHYSICIAN COMPLETE S LA S LA AUTO&[place] [address] COMBINED COMBINED MAGNESIUM 6 PHYSICIAN PHYSICIAN S LA S LA CYANOCOBA 93771 COMBINED COMBINED SOHA 6 PHYSICIAN PHYSICIAN VITAMIN S [place] S LA B-12 [place] [address] COMBINED COMBINED PHOSPHORU 6 PHYSICIAN PHYSICIAN S S LA S LA INORGANIC HOS BED E0260 REID MATHEWS SEMI-ELEC 6 HOME HOME W/ANY MEDICAL MEDICAL TYPE SIDE EQUIPME EQUIPME RAIL W/MATTRSS STANDARD K0001 REID CHAUDHARII 6 HOME HOME R MEDICAL MEDICAL EQUIPME EQUIPME PHYS G0179 [facility] B[facility]ON RE-CERT 6 [facility] MCR-COVR [facility] SRVC RE-CERT PRD COMPREHEN 93068 ZACK DIXON SIVE 6 [facility] METABOLIC INC INC PANEL GLUC BLD 00156 ZACK DIXON GLUC MNTR 6 [facility] DEV INC INC CLEARED FDA SPEC HOME USE BLOOD 10308 ZACK DIXON COUNT 6 [facility] COMPLETE INC INC AUTO&AUTO DIFRNTL WBC URNLS DIP 58038 ZACK DIXON 6 [facility] STICK/TAB INC INC LET REAGENT AUTO MICROSCOP Y AMBULANCE A0429 [facility] SERVICE 6 AMBULANCE AMBULANCE BLS SERVICE SERVICE EMERGENCY TRANSPORT GROUND A0425 [facility] MILEAGE 6 AMBULANCE AMBULANCE PER SERVICE SERVICE STATUTE MILE SBSQ 73531 [facility] NURSING 6 [facility] INTERNAL CARE/DAY MED NEW PROBLEM 25 MIN SBSQ 05091 [facility] CHAPMAN NURSING 6 [facility] FACIL INTERNAL CARE/DAY MEDI MINOR COMPLJ 15 MIN STANDARD K0001 REID CHAUDHARII 6 HOME HOME R MEDICAL MEDICAL EQUIPME EQUIPME HOS BED E0260 ERID MATHEWS SEMI-ELEC 6 HOME HOME W/ANY MEDICAL MEDICAL TYPE SIDE EQUIPME EQUIPME RAIL W/MATTRSS RADEX 08552 SYMPHONY SYMPHONY SPINE 6 MOBILEX MOBILEX THORACIC 2 VIEWS RADEX 23225 SYMPHONY SYMPHONY SPINE 6 MOBILEX MOBILEX CERVICAL 2 OR 3 VIEWS SBSQ [address] [place] [address] INTERNAL CARE/DAY MED NEW PROBLEM 25 MIN STANDARD K0001 REID LOMAS 5 HOME HOME R MEDICAL MEDICAL EQUIPME EQUIPME HOS BED E0260 REID REID SEMI-ELEC 5 HOME HOME W/ANY MEDICAL MEDICAL TYPE SIDE EQUIPME EQUIPME RAIL W/MATTRSS COMPREHEN 06255 Z[facility] DIXON SIVE 5 [facility] METABOLIC INC INC PANEL CULTURE 42802 ZACK DIXON BACTERIAL 5 [facility] INC INC QUANTTATI VE COLONY COUNT URINE AMB A0427 [facility] SERVICE 5 AMBULANCE AMBULANCE ALS SERVICE SERVICE EMERGENCY TRANSPORT LEVEL 1 GROUND A0425 [facility] 5 AMBULANCE AMBULANCE PER SERVICE SERVICE [facility] D[facility] IC 5 [facility] PEPTIDE INC INC BLOOD 39709 ZACK DIXON COUNT 5 [facility] COMPLETE INC INC AUTO&AUTO DIFRNTL WBC SUSCEPTIB 08087 ZACK DIXON LTY STDY 5 [facility] ANTIMICRB INC INC IAL MICRO/AGA R DILUTJ URNLS DIP 59345 ZACK DIXON 5 [facility] STICK/TAB INC INC LET REAGENT AUTO MICROSCOP Y RADIOLOGI 03103 ZACK DIXON C EXAM 5 [facility] CHEST 2 INC INC VIEWS FRONTAL&L ATERAL PRESSURIZ 17924 ZACK DIXON ED/NONPRE 5 [facility] SSURIZED INC INC INHALATIO N TREATMENT STANDARD K0001 REIDJOHN CHAUDHARIEnma 5 HOME HOME R MEDICAL MEDICAL EQUIPME EQUIPME HOS BED E0260 REID MATHEWS SEMI-ELEC 5 HOME HOME W/ANY MEDICAL MEDICAL TYPE SIDE EQUIPME EQUIPME RAIL W/MATTRSS SBSQ 63648 [facility] 5 CULAR MAT CARE/DAY CONSULTAN 25 TS O MINUTES INITIAL 12439 [facility] CARE/DAY CONSULTAN 70 TS O MINUTES ECHO 51419 [facility] 5 MEDICAL JUAN J C R-T 2D SERV W/WO FOUNDATIO M-MODE N REC F-UP/LMTD RADIOLOGI 07320 [facility] EX[facility] 5 MEDICAL MELIDA CHEST 2 IMAGING VIEWS ASS FRONTAL&L ATERAL HOS BED E0260 REID MATHEWS SEMI-ELEC 5 HOME HOME W/ANY MEDICAL MEDICAL TYPE SIDE EQUIPME EQUIPME RAIL W/MATTRSS STANDARD K0001 REID DELGADILLOCHAI 5 HOME HOME R MEDICAL MEDICAL EQUIPME EQUIPME THERAPEUT 18975 ZACK DIXON IC PX 1/> 5 [facility] AREAS INC INC EACH 15 MIN EXERCISES NORMAL A4256 ARRIVA ARRIVA LOW AND 5 MEDICAL MEDICAL HIGH CALIBRATO R SOLUTION/ CHIPS LANCETS A4259 ARRIVA ARRIVA PER BOX 5 MEDICAL MEDICAL OF 100 BLD GLU A4253 ARRIVA ARRIVA TEST/REAG 5 MEDICAL MEDICAL T STRIPS HOME BLD GLU MON- URNLS DIP 91336 ZACK CALDERON 5 [facility] LET RGNT P NON-AUTO W/O MICRSCP THERAPEUT 84367 ZACK DIXON IC PX 1/> 5 [facility] AREAS INC INC EACH 15 MIN EXERCISES HOS BED E0260 REID MATHEWS SEMI-ELEC 5 HOME HOME W/ANY MEDICAL MEDICAL TYPE SIDE EQUIPME EQUIPME RAIL W/MATTRSS STANDARD K0001 REID CHAUDHARII 5 HOME HOME R MEDICAL MEDICAL EQUIPME EQUIPME THERAPEUT 96166 ZACK DIXON IC PX 1/> 5 [facility] AREAS INC INC EACH 15 MIN EXERCISES 25 22170 ZACK CASTELAN 5 [facility] INCLUDES INC INC FRACTIONS IF PERFORMED THERAPEUT 04914 ZACK DIXON IC PX 1/> 5 [facility] ARE[facility] INC INC EACH 15 MIN EXERCISES COLLECTIO 75994 ZACK DIXON N VENOUS 5 [facility] [place] [address] ZACK DIXON THYROID 5 [facility] STIMULATI INC INC NG HORMONE TSH CULTURE 32111 ZACK DIXON BACTERIAL 5 [facility] INC INC QUANTTATI VE COLONY COUNT URINE CULTURE 70119 ZACK DIXON BCT 5 [facility] ISOL&PRSM INC INC PTV ID ISOLATE EA URINE RENAL 98830 ZACK DIXON FUNCTION 5 [facility] PANEL INC INC HEMOGLOBI 71123 ZACK DIXON N 5 [facility] GLYCOSYLA INC INC ALEX A1C BLOOD 78118 ZACK DIXON COUNT 5 [facility] COMPLETE INC INC AUTO&AUTO DIFRNTL WBC SUSCEPTIB 45715 ZACK DIXON LTY STDY 5 [facility] ANTIMICRB INC INC IAL MICRO/AGA R DILUTJ URNLS DIP 70957 ZACK DIXON 5 [facility] STICK/TAB INC INC LET REAGENT AUTO MICROSCOP Y THERAPEUT 18613 ZACK DIXON IC PX 1/> 5 [facility] AREAS INC INC EACH 15 MIN EXERCISES THERAPEUT 98188 ZACK DIXON IC PX 1/> 5 [facility] AREAS INC INC EACH 15 MIN EXERCISES THERAPEUT 76319 ZACK DIXON IC PX 1/> 5 [facility] AREAS INC INC EACH 15 MIN EXERCISES CATH CLCT P9612 ZACK CALDERON SPECIMEN 5 [facility] PT ALL P PLACES SERVICE THERAPEUT 42249 ZACK DIXON IC PX 1/> 5 [facility] AREAS INC INC EACH 15 MIN EXERCISES PHYSICAL 61683 ZACK DIXON THERAPY 5 [facility] EVALUATIO INC INC N CULTURE 98508 ZACK ZACK BACTERIAL 5 [facility] INC INC QUANTTATI VE COLONY COUNT URINE CULTURE 90037 ZACK ZACK BCT 5 [facility] ISOL&PRSM INC INC PTV ID ISOLATE EA URINE URNLS DIP 66054 ZACK CALDERON 5 [facility] LET RGNT P NON-AUTO W/O MICRSCP SUSCEPTIB 48071 ZACK DIXON LTY STDY 5 [facility] [...] TYPE SIDE EQUIPME EQUIPME RAIL W/MATTRSS CULTURE 30855 ZACK DIXON BACTERIAL 5 [facility] INC INC QUANTTATI VE COLONY COUNT URINE CULTURE 89890 ZACK DIXON BCT 5 [facility] ISOL&PRSM INC INC PTV ID ISOLATE EA URINE ONELIA 06754 ZACK CALDERON POST-VOID 5 [facility] RESIDUAL P URINE&/BL ADDER CAP SUSCEPTIB 27858 ZACK DIXON LTY STDY 5 [facility] ANTIMICRB INC INC IAL MICRO/AGA R DILUTJ RADIOLOGI 20905 SYMPHONY SYMPHONY C 5 MOBILEX MOBILEX EXAMINATI ON CHEST SINGLE VIEW FRONTAL RADIOLOGI 20734 SYMPHONY SYMPHONY C 5 MOBILEX MOBILEX EXAMINATI ON CHEST SINGLE VIEW FRONTAL INITIAL 00722 [facility] ARE ANDREZ FACILITY CARE/DAY 25 MINUTES DEBRIDEME 39286 [facility] [place] NT NAIL 5 ARE ANDREZ ANY METHOD 6/> SBSQ 99242 [facility] 5 [facility] INTERNAL CARE/DAY MED NEW PROBLEM 25 MIN BASIC 19349 COMBINED COMBINED METABOLIC 5 PHYSICIAN PHYSICIAN PANEL S LA S LA CALCIUM TOTAL BLOOD 32641 COMBINED COMBINED COUNT 5 PHYSICIAN PHYSICIAN COMPLETE S LA S LA AUTO&[place] [address] LIZZ BEINEKE ABDOMINAL 5 MEDICAL KAY REAL IMAGING TIME ASS W/[place] [address] LIZZ SHERI ABDOMEN & 5 MEDICAL MELIDA PELVIS IMAGING W/O ASS CONTRAST MATERIAL CRITICAL 76949 ZACK DIXON CARE 5 [facility] ED P P PATIENT INIT 30-74 MIN ECG 33776 ZACK MCLEAN ROUTINE 5 [facility] W/LEAST P 12 LDS I&R ONLY RADIOLOGI 91393 [place] RODRIGUEZ ALL C 5 MEDICAL EXAMINATI IMAGING ON CHEST ASS SINGLE VIEW FRONTAL RADEX 80364 [place] FRANKY SPINE 5 MEDICAL KAY CERVICAL IMAGING 4 OR 5 ASS VIEWS RADEX 47874 [place] [facility] 5 MEDICAL KAY COMPL IMAGING MINIMUM 3 ASS VIEWS MI SIDE SPRING-PO A4258 ARRIVA ARRIVA WERED 5 MEDICAL SANDBLASTER PAINT SPRAYER FOR LANCET 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 A4259 ARRIVA ARRIVA PER BOX 5 MEDICAL MEDICAL OF 100 NORMAL A4256 ARRIVA ARRIVA LOW AND 5 MEDICAL MEDICAL HIGH CALIBRATO R SOLUTION/ CHIPS BLD GLU A4253 ARRIVA ARRIVA TEST/REAG 5 MEDICAL MEDICAL T STRIPS HOME BLD GLU MON-50 COMPREHEN 64459 COMBINED COMBINED SIVE 5 PHYSICIAN PHYSICIAN METABOLIC S LA S LA PANEL COLLECTIO 79025 ZACK DIXON N VENOUS 5 [facility] BLOOD INC INC VENIPUNCT URE RENAL 35054 ZACK DIXON FUNCTION 5 [facility] PANEL INC INC THERAPEUT 74969 ZACK DIXON IC 5 [facility] PROPHYLAC INC INC TIC/DX INJECTION SUBQ/IM INJECTION J0897 ZACK DIXON 5 [facility] DENOSUMAB INC INC 1 MG COLLECTIO 83401 ZACK DIXON N VENOUS 4 [facility] BLOOD INC INC VENIPUNCT URE CREATININ 46831 ZACK DIXON E OTHER 4 [facility] SOURCE INC INC DXA BONE 05912 ZACK DIXON DENSITY 4 [facility] STUDY 1/> INC INC SITES AXIAL SKEL CULTURE 61770 ZACK DIXON BACTERIAL 4 [facility] INC INC QUANTTATI VE COLONY COUNT URINE CULTURE 68001 ZACK DIXON BCT 4 [facility] ISOL&PRSM INC INC PTV ID ISOLATE EA URINE RENAL 08478 ZACK DIXON FUNCTION 4 [facility] PANEL INC INC PROTEIN 33452 ZACK DIXON XCPT 4 [facility] REFRACTOM INC INC ETRY SERUM PLASMA/WH L BLD BLOOD 62210 ZACK DIXON COUNT 4 [facility] COMPLETE INC INC AUTO&AUTO DIFRNTL WBC SUSCEPTIB 59123 ZACK DIXON LTY STDY 4 [facility] ANTIMICRB INC INC IAL MICRO/AGA R DILUTJ URNLS DIP 74997 ZACK DIXON 4 [facility] STICK/TAB INC INC LET REAGENT AUTO MICROSCOP Y 25 05135 ZACK DIXON HYDROXY 4 [facility] INCLUDES INC [place] [address] ZACK ELLIOTTON PARATHORM 4 [facility] ONE INC INC COMPREHEN 92752 COMBINED COMBINED SIVE 4 PHYSICIAN PHYSICIAN METABOLIC S LA S LA PANEL CREATINE 10963 ZACK DIXON KINASE MB 4 [facility] FRACTION INC INC ONLY CREATINE 05062 ZACK DIXON KINASE 4 [facility] [place] [address] ZACK DIXON TROPONIN 4 [facility] QUANTITAT INC INC MARIBEL BLOOD 55242 ZACK ZACK COUNT 4 [facility] COMPLETE INC INC AUTO&AUTO DIFRNTL WBC URNLS DIP 00415 ZACK DIXON 4 [facility] STICK/TAB INC INC LET REAGENT AUTO MICROSCOP Y RADIOLOGI 59767 ZACK DIXON C EXAM 4 [facility] CHEST 2 INC INC VIEWS FRONTAL&L ATERAL PRESSURIZ 22370 ZACK DIXON ED/NONPRE 4 [facility] SSURIZED INC INC INHALATIO N TREATMENT COMPREHEN 84418 ZACK DIXON SIVE 4 [facility] METABOLIC INC INC PANEL COLLECTIO 14984 ZACK DIXON N VENOUS 4 [facility] BLOOD INC INC VENIPUNCT URE RENAL 36641 ZACK DIXON FUNCTION 4 [facility] PANEL INC INC BLOOD 51910 ZACK DIXON COUNT 4 [facility] COMPLETE INC INC AUTO&AUTO DIFRNTL WBC 25 69033 ZACK DIXON HYDROXY 4 [facility] INCLUDES INC INC FRACTIONS IF PERFORMED THERAPEUT 27584 ZACK ZACK IC 4 [facility] PROPHYLAC INC INC TIC/DX INJECTION SUBQ/IM INJECTION J0897 ZACK DIXON 4 [facility] DENOSUMAB INC INC 1 MG BASIC 10081 COMBINED COMBINED METABOLIC 4 PHYSICIAN PHYSICIAN PANEL S LA S LA CALCIUM TOTAL COMPREHEN 21814 COMBINED COMBINED SIVE 4 PHYSICIAN PHYSICIAN METABOLIC S LA S LA PANEL COLLECTIO 20295 ZACK DIXON N VENOUS 4 [facility] BLOOD INC INC VENIPUNCT URE BASIC 24871 ZACK DIXON METABOLIC 4 [facility] PANEL INC INC CALCIUM TOTAL INJECTION J0897 ZACKSHANDA DIXON 4 [facility] DENOSUMAB INC INC 1 MG THERAPEUT 51877 ZACK DIXON IC 4 [facility] PROPHYLAC INC INC TIC/DX INJECTION SUBQ/IM ARTHROCEN 27093 [facility] TESIS 3 PHYSICIAN JAM ASPIR&/IN S GROUP J MAJOR JT/BURSA W/O US INJECTION 56799 [facility] 1 TENDON 3 PHYSICIAN PHYSICIAN S GROUP S GROUP SHEATH/LI GAMENT APONEUROS IS INJ J0702 [facility] BETAMETHA 3 PHYSICIAN TONI SONE S GROUP ACETATE & PHOSPHATE 3 MG BASIC 23600 COMBINED COMBINED METABOLIC 3 PHYSICIAN PHYSICIAN PANEL S LA S LA CALCIUM TOTAL DXA BONE 11282 [place] SHERI DENSITY 3 MEDICAL MELIDA STUDY 1/> IMAGING SITES ASS AXIAL SKEL COLLECTIO 51896 ZACK DIXON N VENOUS 3 [facility] BLOOD INC INC VENIPUNCT URE ALBUMIN 55739 ZACK DIXON URINE 3 [facility] MICROALBU INC INC MIN QUANTIATI VE 25 84087 ZACKSHANDA DIXON HYDROXY 3 [facility] INCLUDES INC [place] [address] ZACK DIXON PARATHORM 3 [facility] ONE INC INC RENAL 25893 ZACK DIXON FUNCTION 3 [facility] PANEL INC INC BLOOD 60700 ZACK DIXON COUNT 3 [facility] COMPLETE INC INC AUTO&AUTO DIFRNTL WBC URNLS DIP 64579 ZACK DIXON 3 [facility] STICK/TAB INC INC LET REAGENT AUTO MICROSCOP Y RADIOLOGI 41619 [place] SHERI C EXAM 3 MEDICAL MELIDA CHEST 2 IMAGING VIEWS ASS FRONTAL&L ATERAL IAADI 06480 ZACK DIXON INFLUENZA 3 [facility] B VIRUS INC INC IAADI 86255 ZACK DIXON INFFLUENZ 3 [facility] [place] [address] ZACK DIXON STREPTOCO 3 [facility] CCUS INC INC GROUP A CUL BACT 70496 ZACK DIXON XCPT 3 [facility] URINE INC INC BLOOD/STO OL AEROBIC ISOL BASIC 52835 COMBINED COMBINED METABOLIC 3 PHYSICIAN PHYSICIAN PANEL [place] [address] COMBINED COMBINED BLOOD/URI 3 PHYSICIAN PHYSICIAN C ACID S LA S LA COMPREHEN 86185 Z[facility] DIXON SIVE 3 [facility] METABOLIC INC INC PANEL CREATINE 74573 ZACK DIXON KINASE MB 3 [facility] FRACTION INC INC ONLY TECHNETIU A9567 ZACK Flanagan TC-99M 3 [facility] PENTETATE INC INC DX AEROSOL TO 75 MCI CREATINE 78267 ZACK DIXON KINASE 3 [facility] TOTAL INC INC FIBRIN 89756 Z[facility] DIXON DGRADJ 3 [facility] PRODUCTS INC INC D-DIMER QUAL/SEMI BARB TECHNETIU A9540 ZACK Flanagan TC-99M 3 [facility] MAA DX INC INC STDY DOSE UP TO 10 MCI THER 92173 ZACK DIXON PROPH/DX 3 [facility] NJX IV INC INC PUSH SINGLE/1S T SBST/DRUG ECG 98777 ZACK DIXON ROUTINE 3 [facility] ECG INC INC W/LEAST 12 LDS TRCG ONLY W/O I&R RADIOLOGI 47251 ZACK DIXON C 3 [facility] EXAMINATI INC INC ON CHEST SINGLE VIEW FRONTAL ECG 67309 EMEKA ELSA LIRA ROUTINE 3 EMERGENCY ECG SERVICES W/LEAST 12 LDS I&R ONLY RHYTHM 56475 ZACK DIXON ECG 1-3 3 [facility] LEADS INC INC TRACING ONLY W/O I&[place] [address] AZCK DIXON TROPONIN 3 [facility] QUANTITAT INC INC MARIBEL BLOOD 53574 ZACK DIXON COUNT 3 [facility] COMPLETE INC INC AUTO&AUTO DIFRNTL WBC RADIOLOGI 66753 ZACK DIXON C EXAM 3 [facility] CHEST 2 INC INC VIEWS FRONTAL&L ATERAL PULMONARY 24830 ZACK DIXON 3 [facility] VENTILATI INC INC ON & PERFUSION IMAGING RENAL 45222 ZACK DIXON FUNCTION 3 [facility] PANEL INC INC BLOOD 94488 ZACK DIXON COUNT 3 [facility] COMPLETE INC INC AUTO&AUTO DIFRNTL WBC COLLECTIO 83311 ZACK DIXON N VENOUS 3 [facility] BLOOD INC INC VENIPUNCT URE INJECTION J0897 ZACK DIXON 3 [facility] DENOSUMAB INC INC 1 MG THERAPEUT 25873 ZACK DIXON IC 3 [facility] PROPHYLAC INC INC TIC/DX INJECTION SUBQ/IM APPLICATI 31174 ZACK DIXON ON 3 [facility] MODALITY INC INC 1/> AREAS HOT/COLD PACKS E-STIM G0283 ZACK DIXON 1/> AREAS 3 [facility] OTH THAN INC INC WND CARE PART TX PLAN APPL 32171 ZACK DIXON MODALITY 3 [facility] 1/> AREAS INC INC 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 00990 ZACK DIXON IC PX 1/> 3 [facility] AREAS INC INC EACH 15 MIN EXERCISES THERAPEUT 32200 ZACK DIXON IC PX 1/> 3 [facility] AREAS INC INC EACH 15 MIN EXERCISES APPL 15493 ZACK DIXON MODALITY 3 [facility] 1/> AREAS INC INC 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 G0283 ZACK DIXON 1/> AREAS [facility] INC WND CARE PART TX PLAN APPLICATI 68765 ZACK DIXON ON 3 [facility] INC 1/> AREAS HOT/COLD PACKS APPLICATI 47426 ZACK DIXON ON 3 [facility] INC 1/> AREAS HOT/COLD PACKS E-STIM G0283 ZACK DIXON 1/> [facility] INC WND CARE PART TX PLAN APPL 84945 ZACK DIXON MODALITY 3 [facility]/> AREAS INC INC 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 41004 ZACK DIXON IC PX 1/> [facility] EACH 15 MIN EXERCISES THERAPEUT 42380 ZACK DIXON IC PX 1/> [facility] INC EACH 15 MIN EXERCISES APPL 15421 ZACK DIXON MODALITY 3 [facility]/> AREAS INC INC 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 G0283 ZACK DIXON 1/> [facility] INC INC WND CARE PART TX PLAN APPLICATI 84226 ZACK DIXON ON 3 [facility] INC 1/> AREAS HOT/COLD PACKS E-STIM G0283 ZACK DIXON 1/> [facility] INC INC WND CARE PART TX PLAN THERAPEUT 71074 ZAKC DIXON IC PX 1/> 3 [facility] EACH 15 MIN EXERCISES THERAPEUT 73851 ZACK DIXON IC PX 1/> [facility] EACH 15 MIN EXERCISES APPL 93531 ZACK DIXON MODALITY 3 [facility]/> ARE[facility] INC INC 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 G0283 ZACK ZACK 1/> ARE[facility] INC WND CARE PART TX PLAN APPLICATI 63604 ZACK DIXON ON 3 [facility] INC 1/> AREAS HOT/COLD PACKS CULTURE 71110 COMBINED COMBINED BACTERIAL 3 PHYSICIAN PHYSICIAN S LA S LA QUANTTATI VE COLONY COUNT URINE APPLICATI 15775 ZACK ZACK ON [facility] 1/> AREAS HOT/COLD PACKS E-STIM G0283 ZACK ZACK 1/> [facility] INC WND CARE PART TX PLAN APPL 81350 ZACK DIXON MODALITY 3 [facility]/> AREAS INC INC 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 58778 ZACK DIXON IC PX 1/> 3 [facility] EACH 15 MIN EXERCISES THERAPEUT 83973 ZACK ZACK IC PX 1/> 3 [facility] EACH 15 MIN EXERCISES THERAPEUT 52071 ZACK ZACK IC PX 1/> 3 [facility] EACH 15 MIN EXERCISES APPL 77289 ZACK DIXON MODALITY 3 [facility]/> [facility] INC INC ULTRASOUN D EA 15 MIN APPL 85760 ZACK DIXON MODALITY 3 [facility]/> AREAS INC INC 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 G0283 ZACK DIXON 1/> [facility] INC INC WND CARE PART TX PLAN E-STIM G0283 ZACK ZACK 1/> AREAS [facility] INC INC WND CARE PART TX PLAN APPL 22794 ZACK DIXON MODALITY 3 [facility] 1/> AREAS INC INC IONTOPHOR ESIS EA 15 MIN APPLICATI 70109 ZACK DIXON ON 3 [facility] INC 1/> AREAS HOT/COLD PACKS THERAPEUT 74380 ZACK DIXON IC PX 1/> [facility] EACH 15 MIN EXERCISES THERAPEUT 07151 ZACK DIXON IC PX 1/> [facility] EACH 15 MIN EXERCISES APPLICATI 30083 ZACKSHANDA DIXON ON 3 [facility] INC 1/> AREAS HOT/COLD PACKS APPL 46162 ZACK DIXON MODALITY 3 [facility]/> ARE[facility] INC INC 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 G0283 ZACK ZACK 1/> [facility] INC INC WND CARE PART TX PLAN E-STIM G0283 ZACK ZACK 1/> AREAS [facility] INC INC WND CARE PART TX PLAN APPL 06082 ZACK ZACK MODALITY 3 [facility]/> ARE[facility] INC INC IONTOPHOR ESIS EA 15 MIN APPLICATI 68004 ZACK DIXON ON 3 [facility] INC 1/> AREAS HOT/COLD PACKS APPL 94250 ZACK ZACK MODALITY 3 [facility]/> ARE[facility] INC INC ULTRASOUN D EA 15 MIN THERAPEUT 99082 ZACK ZACK IC PX 1/> 3 [facility] EACH 15 MIN EXERCISES THERAPEUT 07811 ZACK ZACK IC PX 1/> [facility] INC EACH 15 MIN EXERCISES APPL 13763 ZACK DIXON MODALITY 3 [facility]/> AREAS INC INC ULTRASOUN D EA 15 MIN APPL 19988 ZACK ZACK MOD[facility]ITY [facility]/> AREAS INC INC 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 G0283 [facility]ACK DIXON 1/> [facility] OTH THAN INC INC WND CARE PART TX PLAN THERAPEUT 75097 ZACK ZACK IC PX 1/> 3 [facility] AREAS INC INC EACH 15 MIN EXERCISES E-STIM G0283 ZACK DIXON 1/> [facility] OTH THAN INC INC WND CARE PART TX PLAN APPL 86395 ZACK DIXON MODALITY 3 [facility] 1/> AREAS INC INC ULTRASOUN D EA 15 MIN CULTURE 68441 [facility]ACK DIX[facility] BACTERIAL 3 [facility] INC INC QUANTTATI VE COLONY COUNT URINE CULTURE 48486 [facility] BCT 3 [facility] ISOL&PRSM INC INC PTV ID ISOLATE EA URINE 25 09207 [facility] D[facility] HYDROXY 3 [facility] INCLUDES INC [place] [address] ZACK DIXON PARATHORM 3 [facility] ONE INC INC PROTEIN 23444 ZACK DIX[facility] ELECTROPH 3 [facility] ORETIC INC INC FRACTJ&QU ANTJ SERUM APPL 63537 ZACK DIXON MODALITY 3 [facility]/> AREAS INC INC IONTOPHOR ESIS EA 15 MIN COLLECTIO 79880 ZACK DIXON N VENOUS 3 [facility] [place] [address] ZACK DIXON NEPHELOME 3 [facility] TRY EACH INC INC ANALYTE YANELY RENAL 91785 ZACK DIX[facility] FUNCTION 3 [facility] PANEL INC INC BLOOD 47814 ZACK DIX[facility] COUNT 3 [facility] COMPLETE INC INC AUTO&AUTO DIFRNTL WBC SUSCEPTIB 37123 ZACK DIXON LTY STDY 3 [facility] ANTIMICRB INC INC IAL MICRO/AGA R DILUTJ URNLS DIP 53119 [facility] 3 [facility] STICK/TAB INC INC LET REAGENT AUTO MICROSCOP Y APPL 94788 ZACK DIXON MODALITY 3 [facility] 1/> AREAS INC INC 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 35687 ZACK DIXON IC PX 1/> 3 [facility] AREAS INC INC EACH 15 MIN EXERCISES APPLICATI 50934 ZACK DIXON ON 3 [facility] MODALITY INC INC 1/> AREAS HOT/COLD PACKS E-STIM G0283 ZACK DIXON 1/> AREAS [facility] OTH THAN INC INC WND CARE PART TX PLAN E-STIM G0283 ZACK DIXON 1/> AREAS [facility] OTH THAN INC INC WND CARE PART TX PLAN APPLICATI 92339 ZACK DIXON ON 3 [facility] MODALITY INC INC 1/> AREAS HOT/COLD PACKS APPL 76765 ZACK DIXON MODALITY 3 [facility] 1/> AREAS INC INC ULTRASOUN D EA 15 MIN THERAPEUT 82178 ZACK DIXON IC PX 1/> 3 [facility] AREAS INC INC EACH 15 MIN EXERCISES APPL 60509 ZACK DIXON MODALITY 3 [facility] 1/> AREAS INC INC IONTOPHOR ESIS EA 15 MIN APPL 51940 ZACK DIXON MODALITY 3 [facility] 1/> AREAS INC INC 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 04915 ZACK DIXON IC PX 1/> 3 [facility] AREAS INC INC EACH 15 MIN EXERCISES APPL 87723 ZACK DIXON MODALITY 3 [facility] 1/> AREAS INC INC ULTRASOUN D EA 15 MIN E-STIM G0283 ZACK DIXON 1/> AREAS 3 [facility] OTH THAN INC INC WND CARE PART TX PLAN E-STIM G0283 ZACK DIXON 1/> AREAS 3 [facility] OTH THAN INC INC WND CARE PART TX PLAN APPL 98238 ZACK DIXON MODALITY 3 [facility] 1/> AREAS INC INC ULTRASOUN D EA 15 MIN APPLICATI 18131 ZACK DIXON ON 3 [facility] MODALITY INC INC 1/> AREAS HOT/COLD PACKS THERAPEUT 47844 ZACK DIXON IC PX 1/> 3 [facility] AREAS INC INC EACH 15 MIN EXERCISES APPL 61241 ZACK DIXON MODALITY 3 [facility] 1/> AREAS INC INC IONTOPHOR ESIS EA 15 MIN APPL 81913 ZACK DIXON MODALITY 3 [facility] 1/> AREAS INC INC IONTOPHOR ESIS EA 15 MIN BASIC 63157 COMBINED COMBINED METABOLIC 3 PHYSICIAN PHYSICIAN PANEL S [place] CALCIUM TOTAL THERAPEUT 56351 ZACK DIXON IC PX 1/> 3 [facility] AREAS INC INC EACH 15 MIN EXERCISES APPL 32147 ZACK DIXON MODALITY 3 [facility] 1/> AREAS INC INC ULTRASOUN D EA 15 MIN APPL 01361 ZACK DIXON MODALITY 3 [facility] 1/> AREAS INC INC ULTRASOUN D EA 15 MIN E-STIM G0283 ZACK DIXON 1/> AREAS 3 [facility] OTH THAN INC INC WND CARE PART TX PLAN THERAPEUT 45623 ZACK DIXON IC PX 1/> 3 [facility] AREAS INC INC EACH 15 MIN EXERCISES APPL 01938 ZACK DIXON MODALITY 3 [facility] 1/> AREAS INC INC IONTOPHOR ESIS EA 15 MIN APPL 26855 ZACK DIXON MODALITY 3 [facility] 1/> AREAS INC INC 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 12307 ZACK DIXON IC PX 1/> 3 [facility] AREAS INC INC EACH 15 MIN EXERCISES E-STIM G0283 ZACK DIXON 1/> AREAS 3 [facility] OTH THAN INC INC WND CARE PART TX PLAN APPL 79091 ZACK DIXON MODALITY 3 [facility] 1/> AREAS INC INC ULTRASOUN D EA 15 MIN APPL 49315 ZACK DIXON MODALITY 3 [facility] 1/> AREAS INC INC ULTRASOUN D EA 15 MIN APPLICATI 40736 ZACK DIXON ON 3 [facility] MODALITY INC INC 1/> AREAS HOT/COLD PACKS E-STIM G0283 ZACK DIXON 1/> AREAS 3 [facility] OTH THAN INC INC WND CARE PART TX PLAN THERAPEUT 46361 ZACK DIXON IC PX 1/> 3 [facility] AREAS INC INC EACH 15 MIN EXERCISES THERAPEUT 25710 ZACK DIXON IC PX 1/> 3 [facility] AREAS INC INC EACH 15 MIN EXERCISES E-STIM G0283 ZACK DIXON 1/> AREAS 3 [facility] OTH THAN INC INC WND CARE PART TX PLAN APPL 62878 ZACK DIXON MODALITY 3 [facility] 1/> AREAS INC INC ULTRASOUN D EA 15 MIN E-STIM G0283 ZACK DIXON 1/> AREAS 3 [facility] OTH THAN INC INC WND CARE PART TX PLAN THERAPEUT 00522 ZACK DIXON IC PX 1/> 3 [facility] AREAS INC INC EACH 15 MIN EXERCISES APPL 09607 ZACK DIXON MODALITY 3 [facility] 1/> AREAS INC INC 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 77679 ZACK DIXON IC PX 1/> 3 [facility] AREAS INC INC EACH 15 MIN EXERCISES APPLICATI 26750 ZACK DIXON ON 3 [facility] MODALITY INC INC 1/> AREAS HOT/COLD PACKS E-STIM G0283 ZACK DIXON 1/> AREAS 3 [facility] OTH THAN INC INC WND CARE PART TX PLAN E-STIM G0283 ZACK DIXON 1/> AREAS 3 [facility] OTH THAN INC INC WND CARE PART TX PLAN APPL 14026 ZACK DIXON MODALITY 3 [facility] 1/> AREAS INC INC ULTRASOUN D EA 15 MIN THERAPEUT 53958 ZACK DIXON IC PX 1/> 3 [facility] AREAS INC INC EACH 15 MIN EXERCISES APPL 39883 ZACK DIXON MODALITY 3 [facility] 1/> AREAS INC INC IONTOPHOR ESIS EA 15 MIN APPL 50067 ZACK DIXON MODALITY 3 [facility] 1/> AREAS INC INC 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 34859 ZACK DIXON IC PX 1/> 3 [facility] AREAS INC INC EACH 15 MIN EXERCISES APPL 27616 ZACK DIXON MODALITY 3 [facility] 1/> AREAS INC INC ULTRASOUN D EA 15 MIN APPLICATI 52223 ZACK DIXON ON 3 [facility] MODALITY INC INC 1/> AREAS HOT/COLD PACKS E-STIM G0283 ZACK DIXON 1/> AREAS 3 [facility] OTH THAN INC INC WND CARE PART TX PLAN E-STIM G0283 ZACK DIXON 1/> AREAS 3 [facility] OTH THAN INC INC WND CARE PART TX PLAN APPLICATI 32250 ZACK DIXON ON 3 [facility] MODALITY INC INC 1/> AREAS HOT/COLD PACKS APPL 62771 ZACK DIXON MODALITY 3 [facility] 1/> AREAS INC INC ULTRASOUN D EA 15 MIN APPL 11400 ZACK DIXON MODALITY 3 [facility] 1/> AREAS INC INC IONTOPHOR ESIS EA 15 MIN APPL 46177 ZACK DIXON MODALITY 3 [facility] 1/> AREAS INC INC 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 53852 ZACK DIXON IC PX 1/> 3 [facility] AREAS INC INC EACH 15 MIN EXERCISES APPL 55120 ZACK DIXON MODALITY 3 [facility] 1/> AREAS INC INC ULTRASOUN D EA 15 MIN APPLICATI 83339 ZACK DIXON ON 3 [facility] MODALITY INC INC 1/> AREAS HOT/COLD PACKS E-STIM G0283 ZACK DIXON 1/> AREAS 3 [facility] OTH THAN INC INC WND CARE PART TX PLAN E-STIM G0283 ZACK DIXON 1/> AREAS 3 [facility] OTH THAN INC INC WND CARE PART TX PLAN APPLICATI 50446 ZACK DIXON ON 3 [facility] MODALITY INC INC 1/> AREAS HOT/COLD PACKS APPL 11735 ZCAK DIXON MODALITY 3 [facility] 1/> AREAS INC INC ULTRASOUN D EA 15 MIN THERAPEUT 21494 ZACK DIXON IC PX 1/> 3 [facility] AREAS INC INC EACH 15 MIN EXERCISES APPL 36859 ZACK DIXON MODALITY 3 [facility] 1/> AREAS INC INC 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 73850 ZACK DIXON IC PX 1/> 3 [facility] AREAS INC INC EACH 15 MIN EXERCISES PHYSICAL 62295 ZACK DIXON THERAPY 3 [facility] EVALUATIO INC INC N APPLICATI 75295 ZACK DIXON ON 3 [facility] MODALITY INC INC 1/> AREAS HOT/COLD PACKS APPL 63692 ZACK DIXON MODALITY 3 [facility] 1/> AREAS INC INC ULTRASOUN D EA 15 MIN APPL 49730 ZACK DIXON MODALITY 3 [facility] 1/> AREAS INC INC IONTOPHOR ESIS EA 15 MIN RADEX HIP 81882 [facility] 3 MEDICAL MELIDA UNILATERA IMAGING L ASS COMPLETE MINIMUM 2 VIEWS BASIC 96831 COMBINED COMBINED METABOLIC 3 PHYSICIAN PHYSICIAN [place] [address] COMBINED COMBINED BLOOD/URI 3 PHYSICIAN PHYSICIAN C ACID S LA S LA BASIC 71249 ZACK DIXON METABOLIC 2 [facility] PANEL INC INC [facility] G[facility]8 ZACK DIXON OBSERVATI 2 [facility] ON INC INC SERVICE PER HOUR COLLECTIO 18003 ZACK DIXON N VENOUS 2 [facility] BLOOD INC INC VENIPUNCT URE BLOOD 24292 ZACK ELLIOTTON COUNT 2 [facility] COMPLETE INC INC AUTO&AUTO DIFRNTL WBC GLUC BLD 39150 ZACK DIXON GLUC MNTR 2 [facility] DEV INC INC CLEARED FDA SPEC HOME USE GLUC BLD 69740 ZACK DIXON GLUC MNTR 2 [facility] DEV INC [place] [address] ZACK ZACK TROPONIN 2 [facility] QUANTITAT INC INC MARIBEL NONINVASI 56697 ZACK DIXON VE 2 [facility] EAR/PULSE INC INC OXIMETRY SINGLE DETER BLOOD 85314 ZACK ZACK COUNT 2 [facility] COMPLETE INC INC AUTO&AUTO DIFRNTL WBC ECHO 89394 [facility] TTHRC R-T 2 DINA MORA 2D CARDIOLOG W/WOM-MOD Y CLINIC E COMPL SPEC&COLR D PULMONARY 96608 LIZZ WADE 2 MEDICAL MELIDA VENTILATI IMAGING ON & ASS PERFUSION IMAGING TECHNETIU A9540 ZACK Flanagan TC-99M 2 [facility] MAA DX INC INC STDY DOSE UP TO 10 MCI CREATINE 05516 ZACK DIXON KINASE 2 [facility] TOTAL INC INC CREATINE 66893 ZACK DIXON KINASE MB 2 [facility] FRACTION INC INC ONLY TECHNETIU A9567 ZACK Flanagan TC-99M 2 [facility] PENTETATE INC INC DX AEROSOL TO 75 MCI COLLECTIO 94255 ZACK Yoo VENOUS 2 [facility] BLOOD INC INC [facility]UNCT [facility] G0378 ZACK DIXON OBSERVATI 2 [facility] ON INC INC SERVICE PER HOUR BASIC 21639 ZACK DIXON METABOLIC 2 [facility] PANEL INC INC CALCIUM TOTAL BASIC 94257 ZACK DIXON METABOLIC 2 [facility] PANEL INC INC [facility] G0378 ZACK DIXON OBSERVATI 2 [facility] ON INC INC SERVICE PER HOUR CREATINE 58395 ZACK DIXON KINASE MB 2 [facility] FRACTION INC INC ONLY ECG 39975 ZACK MCLEAN ROUTINE 2 [facility] W/LEAST P 12 LDS I&R ONLY FIBRIN 24536 ZACK DIXON DGRADJ 2 [facility] PRODUCTS INC INC D-DIMER QUAL/SEMI BARB CREATINE 79286 AZCK DIXON KINASE 2 [facility] TOTAL INC INC THERAPEUT 04151 ZACK DIXON IC 2 [facility] PROPHYLAC INC INC TIC/DX INJECTION SUBQ/IM ECG 57857 ZACK DIXON ROUTINE 2 [facility] ECG INC INC W/LEAST 12 LDS TRCG ONLY W/O I&R RADIOLOGI 78806 LIZZ WADE C EXAM 2 [facility] CHEST 2 IMAGING VIEWS ASS FRONTAL&L ATERAL CULTURE 33862 ZACK DIXON BACTERIAL 2 [facility] BLOOD INC INC AEROBIC W/ID ISOLATES URNLS DIP 26190 ZACK DIXON 2 [facility] STICK/TAB INC INC LET REAGENT AUTO MICROSCOP Y NATRIURET 62147 ZACK DIXON IC 2 [facility] PEPTIDE INC INC GLUC BLD 45623 ZACK DIXON GLUC MNTR 2 [facility] DEV INC INC [place] [address] ZACK DIXON TROPONIN 2 [facility] QUANTITAT INC INC MARIBEL BLOOD 53475 ZACK DIXON COUNT 2 [facility] COMPLETE INC INC AUTO&AUTO DIFRNTL WBC BLOOD 49979 ZACK DIXON COUNT 2 [facility] COMPLETE INC INC AUTO&AUTO DIFRNTL WBC COLLECTIO 76193 ZACK DIXON N VENOUS 2 [facility] BLOOD INC INC VENIPUNCT URE BASIC 58693 ZACK DIXON METABOLIC 2 [facility] PANEL INC INC CALCIUM TOTAL INJECTION J0897 ZACK DIXON 2 [facility] DENOSUMAB INC INC 1 MG THERAPEUT 10516 ZACK DIXON IC 2 [facility] PROPHYLAC INC INC TIC/DX INJECTION SUBQ/IM 25 16851 ZACK DIXON HYDROXY 2 [facility] INCLUDES INC [place] [address] ZACK DIXON PARATHORM 2 [facility] ONE INC INC RENAL 56390 ZACK DIXON FUNCTION 2 [facility] PANEL INC INC PROTEIN 56100 ZACK DIXON XCPT 2 [facility] REFRACTOM INC INC ETRY SERUM PLASMA/WH L BLD BLOOD 27525 ZACK DIXON COUNT 2 [facility] COMPLETE INC INC AUTO&AUTO DIFRNTL WBC URNLS DIP 34703 ZACK DIXON 2 [facility] STICK/TAB INC INC LET REAGENT AUTO MICROSCOP Y COLLECTIO 68887 ZACK DIXON N VENOUS 2 [facility] BLOOD INC INC VENIPUNCT URE CREATININ 83147 ZACK DIXON E OTHER 2 [facility] SOURCE INC INC DXA BONE 01513 [place] [facility] DENSITY 2 [facility] STUDY 1/> [...] EQUIPME DEVC W/WO HEAD STRAP CV STRS 56805 [facility] TST 2 PHYSICIAN XERS&/OR S GROUP RX CONT ECG W/O I&R MYOCARDIA 24888 [facility] SPECT 2 [facility] MULTIPLE CARDIOLOG STUDIES Y CLINIC CV STRS 87099 ZACK [facility] TST 2 [facility] XERS&/OR HOSPITAL RX CONT P ECG I&R ONLY CULTURE 12879 ZACK DIXON BACTERIAL 2 [facility] INC INC QUANTTATI VE COLONY COUNT URINE CULTURE 58339 ZACK DIXON BCT 2 [facility] ISOL&PRSM INC INC PTV ID ISOLATE EA URINE SUSCEPTIB 97563 ZACK DIXON LTY STDY 2 [facility] ANTIMICRB INC INC IAL MICRO/AGA R DILUTJ POLYSOM 80088 ZACK DIXON 6/>YRS 2 [facility] SLEEP INC INC W/CPAP 4/> ADDL HARSHIL ATTND 25 65345 ZACK DIXON HYDROXY 2 [facility] INCLUDES INC [place] [address] ZACK DIXON PARATHORM 2 [facility] ONE INC INC PROTEIN 71254 ZACK DIXON XCPT 2 [facility] REFRACTOM INC INC ETRY SERUM PLASMA/WH L BLD BLOOD 74164 ZACK DIXON COUNT 2 [facility] COMPLETE INC INC AUTO&AUTO DIFRNTL WBC URNLS DIP 18779 ZACK DIXON 2 [facility] STICK/TAB INC INC LET REAGENT AUTO MICROSCOP Y RENAL 65838 ZACK DIXON FUNCTION 2 [facility] PANEL INC INC COLLECTIO 93540 ZACK DIXON N VENOUS 2 [facility] BLOOD INC INC VENIPUNCT URE CREATININ 55936 ZACK DIXON E OTHER 2 [facility] SOURCE INC INC POLYSOM 18419 [facility] 6/>YRS 2 [facility] SLEEP 4/> ADDL HARSHIL ATTND BLD GLU A4253 [facility] TEST/REAG 2 HOME HOME T STRIPS MEDICAL MEDICAL HOME BLD EQUIPME EQUIPME GLU MON-50 LANCETS A4259 RE[facility] PER BOX 2 HOME HOME OF 100 MEDICAL MEDICAL EQUIPME EQUIPME POLYSOM 19043 ZACK DIXON 6/>YRS 2 [facility] SLEEP 4/> INC INC ADDL HARSHIL ATTND ECG 38072 EMEKA ALFORD ROUTINE 2 EMERGENCY III NANCY ECG SERVICES W/LEAST 12 LDS I&[place] [address] ZACK DIXON TROPONIN 2 [facility] QUANTITAT INC INC MARIBEL BLOOD 73105 ZACK DIXON COUNT 2 [facility] COMPLETE INC INC AUTO&AUTO DIFRNTL WBC URNLS DIP 58862 ZACK DIXON 2 [facility] STICK/TAB INC INC LET REAGENT AUTO MICROSCOP Y BASIC 28852 ZACK DIXON METABOLIC 2 [facility] PANEL INC INC CALCIUM TOTAL RADIOLOGI 64390 ZACK DIXON C 2 [facility] EXAMINATI INC [place] [address] ZACK DIXON HEAD/BRAI 2 [facility] N W/O INC INC CONTRAST MATERIAL CREATINE 71950 ZACK DIXON KINASE 2 [facility] TOTAL INC INC 3D 43069 ZACK DIXON RENDERING 2 [facility] W/INTERP INC INC & POSTPROCE SS SUPERVISI ON ECG 25719 ZACK DIXON ROUTINE 2 [facility] ECG INC INC W/LEAST 12 LDS TRCG ONLY W/O I&R RADEX 21227 [facility] 2 [facility] THORACIC IMAGING 3 VIEWS ASS RADEX 76941 [facility] SPINE 2 MED[facility] LUMBOSACR IMAGING AL ASS MINIMUM 4 VIEWS CREATINE 65183 ZACK DIXON KINASE MB 2 [facility] FRACTION INC INC ONLY RADIOLOGI 11855 LIZZ WADE C EXAM 2 [facility] SKULL IMAGING COMPLETE ASS MINIMUM [address] [place] [address] ZACK DIXON FOLIC 2 [facility] [place] [address] ZACK DIXON IRON 2 [facility] INC INC 25 36949 ZACK DIXON HYDROXY 2 [facility] INCLUDES INC [place] [address] ZACK DIXON FERRITIN 2 [place] [address] ZACK DIXON PARATHORM 2 [facility] [place] [address] ZCAK DIXON PHOSPHORU 2 [facility] S INC INC INORGANIC CYANOCOBA 41797 ZACK DIXON SOHA 2 [facility] VITAMIN INC INC B-12 RADEX 05969 ZACK DIXON SPINE 2 [facility] CERVICAL INC INC 6 OR MORE VIEWS BASIC 28203 ZACK DIXON METABOLIC 2 [facility] [place] [address] ZACK ZACK BLOOD/URI 2 [facility] C ACID INC INC IRON 12488 ZACK DIXON BINDING 2 [facility] CAPACITY INC INC IRRIGAJ 64438 ZACK DIXON IMPLNTD 2 [facility] VENOUS INC INC ACCESS DRUG DELIVERY SYST GLUC BLD 28695 ZACK DIXON GLUC MNTR 2 [facility] DEV INC INC CLEARED FDA SPEC HOME USE BLOOD 56990 ZACK ZACK COUNT 2 [facility] COMPLETE INC INC AUTO&AUTO DIFRNTL WBC GLUC BLD 05217 ZACK DIXON GLUC MNTR 2 [facility] DEV INC INC CLEARED FDA SPEC HOME USE NONINVASI 72191 ZACK DIXON VE 2 [facility] EAR/PULSE INC INC OXIMETRY SINGLE DETER BASIC 13323 ZACK DIXON METABOLIC 2 [facility] PANEL INC INC [facility] G0378 ZACK DIXON OBSERVATI 2 [facility] ON INC INC SERVICE PER HOUR TECHNETIU A9567 ZACK Flanagan TC-99M 2 [facility] PENTETATE INC INC DX AEROSOL TO [facility] G0378 ZACK DIXON OBSERVATI 2 [facility] ON INC INC SERVICE PER HOUR CREATINE 54167 ZACK DIXON KINASE MB 2 [facility] FRACTION INC INC ONLY BASIC 93565 ZACK DIXON METABOLIC 2 [facility] PANEL INC INC CALCIUM TOTAL ECG 29460 ZACK MCLEAN ROUTINE 2 [facility] W/LEAST P 12 LDS I&R ONLY INITIAL 59474 [facility] 2 PHYSICIAN CARE/DAY S GROUP 50 MINUTES BLOOD 18237 ZACK DIXON COUNT 2 [facility] COMPLETE INC INC AUTO&AUTO DIFRNTL WBC NONINVASI 02359 ZACK DIXON VE 2 [facility] EAR/PULSE INC INC OXIMETRY SINGLE DETER ECHO 10550 [facility] TTHRC R-T 2 DINA MORA 2D CARDIOLOG W/WOM-MOD Y CLINIC E COMPL SPEC&COLR D GLUC BLD 00293 ZACK DIXON GLUC MNTR 2 [facility] DEV INC INC CLEARED FDA SPEC HOME USE TECHNETIU A9540 ZACK DIXON M TC-99M 2 [facility] MAA DX INC INC STDY DOSE UP TO 10 MCI ECG 79577 ZACK DIXON ROUTINE 2 [facility] ECG INC INC W/LEAST 12 LDS TRCG ONLY W/O I&R RADIOLOGI 11669 [place] [facility] C EXAM 2 [facility] CHEST 2 IMAGING VIEWS ASS FRONTAL&L ATERAL PULMONARY 37937 [facility] 2 MEDICAL MELIDA VENTILATI IMAGING ON & ASS PERFUSION IMAGING CREATINE 04269 ZACK ZACK KINASE 2 [facility] [place] [id number] ZACK ZACK TROPONIN 2 [facility] QUANTITAT INC INC MARIBEL CREATINE 85824 ZACK ZACK KINASE 2 [facility] TOTAL INC INC FIBRIN 26530 ZACK DIXON DGRADJ 2 [facility] PRODUCTS INC INC D-DIMER QUAL/SEMI BARB THERAPEUT 27154 ZACK DIXON IC 2 [facility] PROPHYLAC INC INC TIC/DX INJECTION SUBQ/IM ECG 24120 ZACK DIXON ROUTINE 2 [facility] ECG INC INC W/LEAST 12 LDS TRCG ONLY W/O I&R BLOOD 33865 ZACK DIXON COUNT 2 [facility] COMPLETE INC INC AUTO&AUTO DIFRNTL WBC CULTURE 23175 ZACK ELLIOTTON BACTERIAL 2 [facility] BLOOD INC INC AEROBIC W/ID ISOLATES SUSCEPTIB 69572 ZACK ZACK LTY STDY 2 [facility] ANTIMICRB INC INC IAL MICRO/AGA R DILUTJ URNLS DIP 08841 ZACK DIXON 2 [facility] STICK/TAB INC INC [place] [address] ZACK DIXON TROPONIN 2 [facility] QUANTITAT INC INC MARIBEL NATRIURET 81980 ZACK DIXON IC 2 [facility] PEPTIDE INC INC ECG 91516 EMEKA WILCOX ROUTINE 2 EMERGENC[facility] ECG SERVICES W/LEAST 12 LDS I&R ONLY CULTURE 63711 ZACK ELLIOTTON BACTERIAL 2 [facility] INC INC QUANTTATI VE COLONY COUNT URINE CULTURE 37764 ZACK DIXON BCT 2 [facility] ISOL&PRSM INC INC PTV ID ISOLATE EA URINE CREATINE 43957 ZACK DIXON KINASE MB 2 [facility] FRACTION INC INC ONLY COMPREHEN 62877 ZACK DIXON SIVE 2 [facility] METABOLIC INC INC PANEL RADIOLOGI 65274 [place] C 2 MEDICAL MELIDA EXAMINATI IMAGING [...] OF 100 MEDICAL MEDICAL EQUIPME EQUIPME RADIOLOGI 08245 [place] C 2 MEDICAL MELIDA EXAMINATI IMAGING ON CHEST ASS SINGLE VIEW FRONTAL VENOUS 3893 ZACK DIXON CATHETERI 2 [facility] ZATION INC INC NOT ELSEWHERE CLASSIFIE D RADIOLOGI 43380 [place] C EXAM 2 MEDICAL MELIDA CHEST 2 IMAGING VIEWS ASS FRONTAL&L ATERAL CYANOCOBA 62894 COMBINED COMBINED SOHA 2 PHYSICIAN PHYSICIAN VITAMIN S LA S LA B-12 SEDIMENTA 47546 COMBINED COMBINED TION RATE 2 PHYSICIAN PHYSIC[place] [address] [place] RETROPERI 2 MEDICAL MELIDA TONEAL IMAGING REAL TIME ASS W/IMAGE COMPLETE RADIOLOGI 75387 [place] C EXAM 2 MEDICAL MEL[facility] CHEST 2 IMAGING VIEWS ASS FRONTAL&L ATERAL BLOOD 00894 FAMILY STRAWZELL COUNT 2 CARE CRI COMPLETE ASSOCIATE AUTO&AUTO S, PSC DIFRNTL WBC RHEUMATOI 12541 COMBINED COMBINED D FACTOR 2 PHYSICIAN PHYSIC[place] [address] COMBINED COMBINED BLOOD/URI 2 PHYSICIAN PHYSICIAN C ACID S LA S LA HANDLG&/O 48932 FAMILY STRAWZELL R CONVEY 2 CARE CRI OF SPEC ASSOCIATE FOR TR S, [facility] OFFICE TO LAB ANTINUCLE 48933 LAB ZOEY LAB ZOEY AR 2 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 YUNG RADIOLOGI 81317 [facility] 2 MEDICAL MELIDA EXAMINATI IMAGING ON KNEE 3 ASS VIEWS COMPREHEN 67121 COMBINED COMBINED SIVE 2 PHYSICIAN PHYSICIAN METABOLIC S LA S LA PANEL COLLECTIO 36824 FAMILY STRAWZELL N VENOUS 2 CARE CRI BLOOD ASSOCIATE [place]IPUN[place], [place] [address] COMBINED COMBINED THYROID 2 PHYSICIAN PHYSICIAN STIMULATI S LA S LA NG HORMONE TSH HANDLG&/O 43952 FAMILY STRAWZELL R CONVEY 2 CARE CRI OF SPEC ASSOCIATE FOR TR S, [facility] OFFICE TO LAB LIPID 73377 FAMILY STRAWZELL PANEL 2 CARE CRI ASSOCIATE S, PSC HEMOGLOBI 01908 FAMILY STRAWZELL N 2 CARE CRI GLYCOSYLA ASSOCIATE ALEX A1C S, PSC 25 69024 COMBINED COMBINED HYDROXY 2 PHYSICIAN PHYSICIAN INCLUDES S LA S LA FRACTIONS IF PERFORMED COLLECTIO 74721 FAMILY STRAWZELL N VENOUS 2 CARE CRI BLOOD ASSOCIATE VENIPUNCT S, PSC URE COMPREHEN 02400 COMBINED COMBINED SIVE 2 PHYSICIAN PHYSICIAN METABOLIC S LA S LA PANEL RADIOLOGI 34344 [facility] EXAM 2 MEDICAL MELIDA CHEST 2 IMAGING VIEWS ASS FRONTAL&L ATERAL DUP-SCAN 00309 ZACK DIXON XTR VEINS 2 [facility] INC INC UNILATERA L/LIMITED STUDY RENAL 73724 ZACK DIXON FUNCTION 2 [facility] PANEL INC INC HEPATIC 79976 ZACK DIXON FUNCTION 2 [facility] PANEL INC INC BLOOD 13600 ZACK DIXON COUNT 2 [facility] COMPLETE INC INC AUTO&AUTO DIFRNTL WBC URNLS DIP 23851 ZACK DIXON 2 [facility] STICK/TAB INC INC LET REAGENT AUTO MICROSCOP Y COLLECTIO 47110 AZCK Yoo VENOUS 2 [facility] BLOOD INC INC VENIPUNCT URE DEBRIDEME 47838 PAWSAT PAWSAT NT NAIL 2 MAR MAR ANY METHOD 1-5 THERAPEUT 58813 ZACK DIXON IC 1 [facility] PROPHYLAC INC INC TIC/DX INJECTION SUBQ/IM BASIC 54482 ZACK DIXON METABOLIC 1 [facility] PANEL INC INC CALCIUM TOTAL COLLECTIO 54647 ZACK DIXON N VENOUS 1 [facility] BLOOD INC INC VENIPUNCT URE COLLECTIO 64307 ZACK DIXON N VENOUS 1 [facility] BLOOD INC INC VENIPUNCT URE BASIC 22155 ZACK DIXON METABOLIC 1 [facility] PANEL INC INC CALCIUM TOTAL THERAPEUT 45885 ZACK DIXON IC 1 [facility] PROPHYLAC INC INC TIC/DX INJECTION SUBQ/IM 25 67512 ZACK DIXON HYDROXY 1 [facility] INCLUDES INC [place] [address] ZACK [facility]IXON PARATHORM 1 [facility] ONE INC INC PROTEIN 64209 ZACK DIXON ELECTROPH 1 [facility] ORETIC INC INC FRACTJ&QU ANTJ SERUM RENAL 14067 ZACK DIXON FUNCTION 1 [facility] PANEL INC INC PROTEIN 17411 ZACK DIXON XCPT 1 [facility] REFRACTOM INC INC ETRY SERUM PLASMA/WH L BLD BLOOD 29552 ZACK DIXON COUNT 1 [facility] COMPLETE INC INC AUTO&AUTO DIFRNTL WBC URNLS DIP 60393 ZACK DIXON 1 [facility] STICK/TAB INC INC LET REAGENT AUTO MICROSCOP Y COLLECTIO 56483 ZACK DIXON N VENOUS 1 [facility] BLOOD INC INC VENIPUNCT URE CREATININ 44468 ZACK DIXON E OTHER 1 [facility] SOURCE INC INC COLLECTIO 99131 ZACK DIXON N VENOUS 1 [facility] BLOOD INC INC VENIPUNCT URE BASIC 71007 ZACK DIXON METABOLIC 1 [facility] PANEL INC INC CALCIUM TOTAL INJECTION J1030 [place] [facility] S[facility] 1 [facility] DNISOLONE PSC ACETATE 40 MG RADIOLOGI 33584 ZACKSHANDA DIXON C EXAM 1 [facility] BOTH INC INC KNEES STANDING ANTEROPOS T ARTHROCEN 18877 [place] SON TESIS 1 [place] ASPIR&/IN CLINIC J MAJOR PSC JT/BURSA W/O US DXA BONE 77731 ZACK DIXON DENSITY 1 [facility] STUDY 1/> INC INC SITES AXIAL SKEL OPHTH 36792 [facility] 1 VISION XM&EVAL COMPRHNSV ESTAB PT 1/> [place] [address] ZACK ZACK RETROPERI 1 [facility] TONEAL INC INC REAL TIME W/IMAGE COMPLETE NON-INVAS 94100 [facility] BRIANSHERI [place] 1 MEDICAL MELIDA PHYSIOLOG IMAGING IC STUDY ASS EXTREMITY 3 LEVLS BASIC 07249 COMBINED COMBINED METABOLIC 1 PHYSICIAN PHYSICIAN PANEL S LA S LA CALCIUM TOTAL 25 73657 COMBINED COMBINED HYDROXY 1 PHYSICIAN PHYSICIAN INCLUDES S [place] [address] COMBINED COMBINED PARATHORM 1 PHYSICIAN [place] [address] COMBINED COMBINED PHOSPHORU 1 PHYSICIAN PHYSICIAN S S LA S LA INORGANIC BLD GLU A4253 REID MATHEWS TEST/REAG 1 HOME MED HOME MED T STRIPS EQUIP. L EQUIP. L HOME BLD GLU MON-50 LANCETS A4259 REID MATHEWS PER BOX 1 HOME MED HOME MED OF 100 EQUIP. L EQUIP. L 3D 32838 LIZZ DIASCHER RENDERING 1 MEDICAL MELIDA IMAGING W/INTERP& ASS POSTPROC DIFF WORK STATION CREATININ 87647 ZACK DIXON E BLOOD 1 [facility] INC INC COLLECTIO 61027 ZACK DIXON N VENOUS 1 [facility] [place] [address] ZACK DIXON UREA 1 [facility] [place] [address] [place] SHERI ABDOMEN 1 MEDICAL MELIDA W/O IMAGING CONTRAST ASS MATERIAL HEPATBL 91743 [place] SHERI DUX SYS 1 MEDICAL MELIDA IMG IMAGING GLBLDR ASS TECHNETIU A9537 ZACK Flanagan TC-99M 1 [facility] MEBROFENI INC INC N DX UP TO 15 MCI 35562 [place] SHERI ABDOMINAL 1 MEDICAL MELIDA REAL IMAGING TIME ASS W/IMAGE LIMITED COMPREHEN 87391 COMBINED COMBINED SIVE 1 PHYSICIAN PHYSICIAN METABOLIC S LA S LA PANEL COLLECTIO 56052 COMBINED COMBINED N VENOUS 1 PHYSICIAN PHYSICIAN BLOOD S LA S LA VENIPUNCT URE COLLECTIO 62985 FAMILY MULBERRY N VENOUS 1 CARE NILO BLOOD ASSOCIATE VENIPUNCT S URE COMPREHEN 62859 COMBINED COMBINED SIVE 1 PHYSICIAN PHYSICIAN [place] [address] COMBINED COMBINED AMYLASE 1 [place] [address] COMBINED COMBINED THYROID 1 PHYSICIAN PHYSICIAN STIMULATI [place] [address] LAB Z[facility] LAB ZOEY LIPASE 1 [employer]ING BLOOD 54068 FAMILY MULBERRY COUNT 1 CARE NILO COMPLETE ASSOCIATE AUTO&AUTO S DIFRNTL WBC HEMOGLOBI 29622 FAMILY MULBERRY N 1 CARE NILO GLYCOSYLA ASSOCIATE ALEX A1C S RADIOLOGI 18303 [place] Lopez EXAM 1 MEDICAL CARLOS CHEST 2 IMAGING VIEWS ASS FRONTAL&L ATERAL BASIC 79535 COMBINED COMBINED METABOLIC 1 PHYSICIAN PHYSICIAN PANEL S LA S LA CALCIUM TOTAL COLLECTIO 70925 FAMILY BRENDAN J N VENOUS 1 CARE [place]LOOD [place] [address] ZACK DIXON STREPTOCO 0 [facility] CCUS INC INC GROUP A URNLS DIP 99664 ZACK DIXON 0 [facility] STICK/TAB INC INC LET REAGENT AUTO MICROSCOP Y RADIOLOGI 69866 ZACK DIXON C EXAM 0 [facility] CHEST 2 INC INC VIEWS FRONTAL&L ATERAL PRESSURIZ 14866 ZACK DIXON ED/NONPRE 0 [facility] SSURIZED INC INC INHALATIO N TREATMENT IAADI 46247 ZACK DIXON INFLUENZA 0 [facility] B VIRUS INC INC IAADI 61640 ZACK DIXON INFFLUENZ 0 [facility] A A VIRUS INC INC COMPREHEN 69581 COMBINED COMBINED SIVE 0 PHYSICIAN PHYSICIAN [place] [address] COMBINED COMBINED THYROID 0 PHYSICIAN PHYSICIAN STIMULATI S LA S LA NG HORMONE TSH COLLECTIO 76180 FAMILY FAMILY N VENOUS 0 CARE CARE BLOOD ASSOCIATE ASSOCIATE VENIPUNCT S S URE OPHTH 46238 PETERSYANELY PETERS LANNY MEDICAL 0 XM&EVAL COMPRHNSV ESTAB PT 1/> FUNDUS 82646 PETERSYANELY CA PETERS LANNY PHOTOGRAP 0 HY W/INTERPR ETATION & REPORT FOR DIAB A5513 WELLNESS WELLNESS ONLY MX 0 LIFE LIFE DNSITY SYSTEMS [employer] CSTM MOLD CSTM EA DIAB ONLY A5500 WELLNESS WELLNESS FIT CSTM 0 LIFE LIFE PREP&SPL SYSTEMS SYSTEMS SHOE [employer] LLC DNSITY INSRT RADIOLOGI 94514 [place] SHERI C 0 MEDICAL MELIDA EXAMINATI IMAGING ON ANKLE ASS 2 VIEWS WALKING L4360 [employer] BOOT 0 TECHNOLOG TECHNOLOG PNEUMATC IES INC IES INC &/ VACUUM PREFAB CUSTM FIT RADIOLOGI 71953 [place] SHERI C 0 MEDICAL MELIDA EXAMINATI IMAGING ON ANKLE ASS 2 VIEWS RADIOLOGI 45158 ZACK DIXON C 0 [facility] EXAMINATI INC INC ON FOOT 2 VIEWS RADEX 45346 [place] SHERI FOOT 0 MEDICAL MELIDA COMPLETE IMAGING MINIMUM 3 ASS VIEWS RADEX 44914 [place] SH[place]I FOOT 0 MEDICAL MELIDA COMPLETE IMAGING MINIMUM 3 [place] [address] [facility] PETTEY 0 PHYSICIAN JAM CALCANEAL S GROUP FRACTURE W/O MANIPULAT ION RADIOLOGI 68203 [place] SHERI C 0 MEDICAL MELIDA EXAMINATI IMAGING ON TIBIA ASS & FIBULA 2 VIEWS RADEX 66476 [facility] WADE CALCANEUS 0 MEDICAL MELIDA MINIMUM IMAGING 2 VIEWS ASS RADIOLOGI 60173 [facility] WADE C 0 MEDICAL MELIDA EXAMINATI IMAGING ON PELVIS ASS 1/2 [place] [address] EMEKA SPARROWEY 0 EMERGENCY CHIDI CALCANEAL SERVICES FRACTURE W/O MANIPULAT ION AMBULANCE A0429 [facility] SERVICE 0 AMBULANCE AMBULANCE BLS SERVICE SERVICE EMERGENCY TRANSPORT GROUND A0425 [facility] MILEAGE 0 AMBULANCE AMBULANCE PER SERVICE SERVICE STATUTE MILE 25 99314 LAB Z[facility] LAB ZOEY HYDROXY 0 AMERIC AMERIC INCLUDES HOLD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 IF PERFORMED GLUCOSE 45514 FAMILY MULBERRY POST 0 CARE NILO GLUCOSE ASSOCIATE DOSE S HEMOGLOBI 37317 FAMILY MULBERRY N 0 CARE NILO GLYCOSYLA ASSOCIATE ALEX A1C S BLOOD 36314 FAMILY MULBERRY COUNT 0 CARE NILO COMPLETE ASSOCIATE AUTO&AUTO S DIFRNTL WBC PPSV23 84985 FAMILY FAMILY VACCINE 2 0 CARE CARE YRS OR ASSOCIATE ASSOCIATE OLDER FOR S S SUBQ/IM USE ADMINISTR G0009 FAMILY MULBERRY ATION OF 0 CARE NILO PNEUMOCOC ASSOCIATE JORDYN S VACCINE COLLECTIO 07859 FAMILY MULBERRY N VENOUS 0 CARE NILO BLOOD [place] [address] COMBINED COMBINED IRON 0 PHYSICIAN [place] [address] COMBINED COMBINED FOLIC 0 PHYSICIAN PHYSICIAN ACID S LAB S LAB SERUM COMPREHEN 59140 COMBINED COMBINED SIVE 0 PHYSICIAN PHYSICIAN METABOL[place] [address] COMBINED COMBINED FERRITIN 0 PHYSICIAN PHYSICIAN S LAB S LAB CYANOCOBA 59339 COMBINED COMBINED SOHA 0 PHYSICIAN PHYSICIAN VITAMIN S LAB S LAB B-12 LIPID 85015 COMBINED COMBINED PANEL 0 PHYSICIAN PHYSICIAN S LAB S LAB HEMOGLOBI 37959 FAMILY MULBERRY, N 0 CARE CLEO T GLYCOSYLA ASSOCIATE ALEX A1C S BLOOD 60897 FAMILY MULBERRY, COUNT 0 CARE CLEO T COMPLETE ASSOCIATE AUTO&AUTO S DIFRNTL WBC COLLECTIO 52553 FAMILY ELIAS, N VENOUS 0 CARE CLEO T BLOOD ASSOCIATE VENIPUNCT S URE BASIC 40384 COMBINED COMBINED METABOLIC 0 PHYSICIAN PHYSICIAN PANEL S LAB S LAB CALCIUM TOTAL BLOOD 65290 FAMILY ELIAS, COUNT 0 CARE CLEO T COMPLETE ASSOCIATE AUTO&AUTO S DIFRNTL WBC COLLECTIO 22711 FAMILY ELIAS, N VENOUS 0 CARE CLEO T BLOOD ASSOCIATE VENIPUNCT S URE BLD GLU A4253 REID MATHEWS TEST/REAG 0 HOME MED HOME MED T STRIPS EQUIP. EQUIP. HOME BLD [facility] GLU MON-50 LANCETS A4259 REID REID PER BOX 0 HOME MED HOME MED OF [address] [facility] 36229 FAMILY ELIAS, DISCHARGE 0 CARE CLEO T DAY ASSOCIATE MANAGEMEN S T > 30 MIN RADIOLOGI 05975 [facility] COREY EXAM 0 MEDICAL XAVI P CHEST 2 IMAGING VIEWS ASSOCIATE FRONTAL&L S ATERAL SBSQ 53706 [facility] 0 CARE CLEO T CARE/DAY ASSOCIATE 25 S MINUTES INITIAL 88907 [facility] 0 CARE CLEO T CARE/DAY ASSOCIATE 50 S MINUTES RADIOLOGI 67479 [facility] [place] EXAM 0 MEDICAL RAYMUNDO CHEST 2 IMAGING VIEWS ASSOCIATE FRONTAL&L S ATERAL ECHO 71027 [facility] FALLUERMA, TTHRC R-T 0 PHYSICIAN MINNA [place] GROUP W/WOM-MOD E COMPL SPEC&COLR D ECG 35235 ZACK BARERTO, ROUTINE 0 [facility] W/LEAST PROF SERV 12 LDS I&R ONLY INTRO 75738 EMEKA WILCOX, NEEDLE/IN 0 EMERGENCY TAYA TRACAT SERVICES EXTREMITY [place] [address] [facility] WADE, PART VNTJ 0 MEDICAL RAYMUNDO IMG IMAGING AERSL ASSOCIATE 1/BORDER INSPECTOR S PRJCJ AMB A0427 [facility] SERVICE 0 AMBULANCE AMBULANCE ALS SERVICE SERVICE EMERGENCY TRANSPORT LEVEL 1 GROUND A0425 [facility] 0 AMBULANCE AMBULANCE PER SERVICE SERVICE STATUTE MILE IAADIADOO 98643 FAMILY MULBERRY, 0 CARE CLEO T STREPTOCO ASSOCIATE CCUS S GROUP A ORTHOPANT 71124 LIZZ BRIANUTCHER, OGRAM 0 MEDICAL RAYMUNDO IMAGING ASSOCIATE S RENAL 13397 ZACK DIXON FUNCTION 0 [facility] PANEL INC INC COLLECTIO 98568 ZACK DIXON N VENOUS 0 [facility] [...] LLC LLC HOME BLD GLU MON-50 COLLECTIO 47550 ZACK DIXON N VENOUS 9 [facility] BLOOD INC INC VENIPUNCT URE RENAL 67425 ZACK DIXON FUNCTION 9 [facility] MEM [...] 9 [facility] [address] [place] [address] ZACK DIXON RETROPERI 9 [facility] TONEAL INC INC REAL TIME W/IMAGE COMPLETE URNLS DIP 16915 ZACK DIXON 9 [facility] STICK/TAB INC INC LET REAGENT AUTO MICROSCOP Y SUSCEPTIB 12981 ZACK DIXON LTY STDY 9 [facility] ANTIMICRB INC INC IAL MICRO/AGA R DILUTJ RENAL 55457 ZACK DIXON FUNCTION 9 [facility] PANEL INC INC COMPLEMEN 24487 ZACK DIXON T 9 [facility] FUNCTIONA INC INC L ACTIVITY EACH COMPONENT COLLECTIO 74929 ZACK DIXON N VENOUS 9 [facility] BLOOD INC INC VENIPUNCT URE ANTISTREP 61712 ZACK DIXON TOLYSIN O 9 [facility] SCREEN INC INC CULTURE 64127 ZACK DIXON BCT 9 [facility] ISOL&PRSM INC INC PTV ID ISOLATE EA URINE CULTURE 85127 ZACK DIXON BACTERIAL 9 [facility] INC INC QUANTTATI VE COLONY COUNT URINE ANTINUCLE 93755 ZACK DIXON AR 9 [facility] [place] [address] ZACK DIXON BLOOD/URI 9 [facility] C ACID INC INC BASIC 52555 ZACK DIXON METABOLIC 9 [facility] PANEL INC INC CALCIUM TOTAL COLLECTIO 12769 ZACK DIXON N VENOUS 9 [facility] BLOOD INC INC VENIPUNCT URE COLLECTIO 28809 ZACK DIXON N VENOUS 9 [facility] BLOOD INC INC VENIPUNCT URE COMPREHEN 89077 ZACK DIXON SIVE 9 [facility] [address] ZACK DIXON THYROID 9 [facility] STIMULATI INC INC NG HORMONE TSH BLOOD 07818 ZACK DIXON COUNT 9 [facility] COMPLETE INC INC AUTO&AUTO DIFRNTL WBC LANCETS A4259 DIABETES DIABETES PER BOX 9 C[facility] NORMAL A4256 DIABETES DIABETES LOW AND 9 CARE [facility] HIGH [facility] CALIBRATO R SOLUTION/ CHIPS BLD GLU A4253 DIABETES DIABETES TEST/REAG 9 CARE CLUB C[facility] T STRIPS [facility] LLC HOME BLD GLU MON-50 SPRING-PO A4258 DIABETES DIABETES WERED 9 CARE CLUB CARE CLUB DEVICE [facility] FOR LANCET EACH REPL KIM A4235 DIABETES DIABETES LITHIUM 9 CARE CLUB CARE CLUB MED NECES [facility] LIBERTY BG MON OWN PT EA OPHTH 64553 LORRAINE, LORRAINE, MEDICAL 9 GEE A GEE A XM&EVAL COMPRHNSV ESTAB PT 1/> ALBUMIN 14288 FAMILY MULBERRY, URINE 9 CARE CLEO T MICROALBU ASSOCIATE MIN S SEMIQUANT ITATIVE CREATININ 69884 FAMILY ELIAS, E OTHER 9 CARE CLEO Rollins SOURCE ASSOCIATE S COLLECTIO 70108 FAMILY ELIAS, N VENOUS 9 CARE CLEO Rollins BLOOD ASSOCIATE VENIPUNCT S URE HEMOGLOBI 37063 COMBINED COMBINED N 9 PHYSICIAN PHYSICIAN GLYCOSYLA [...] LLC LLC HOME BLD GLU MON-50 THERAPEUT 11984 PROFESSIO CROSSFIEL ACTVITY 8 NAL REHAB D, DIRECT PT ASSOC DANNITA CONTACT PSC EACH 15 MIN THERAPEUT 42944 PROFESSIO CROSSFIEL IC PX 1/> 8 NAL REHAB D, AREAS ASSOC DANNITA EACH 15 PSC MIN EXERCISES MANUAL 44234 PROFESSIO CROSSFIEL THERAPY 8 NAL REHAB D, TQS 1/> ASSOC DANNITA REGIONS PSC EACH 15 MINUTES CANE E0105 REID MATHEWS QUAD/3-MI 8 HOME MED HOME MED GABINO ALL EQUIP. EQUIP. [employer] LLC ADJUSTBL/ FIX W/TIPS MANUAL 83058 PROFESSIO CROSSFIEL THERAPY 8 NAL REHAB D, TQS 1/> ASSOC DANNITA REGIONS PSC EACH 15 MINUTES PHYSICAL 05355 PROFESSIO CROSSFIEL THERAPY 8 NAL REHAB D, EVALUATIO ASSOC DANNITA N PSC THERAPEUT 34299 PROFESSIO CROSSFIEL IC PX 1/> 8 NAL REHAB D, AREAS ASSOC DANNITA EACH 15 PSC MIN EXERCISES RADEX HIP 72495 ZACK DIXON 8 [facility] UNILATERA INC INC L COMPLETE MINIMUM 2 VIEWS RADEX 32724 [place], SPINE 8 MEDICAL XAVI Mcdonald LUMBOSACR IMAGING AL ASSOCIATE MINIMUM 4 S VIEWS Encounters Encounter Start End Date Code Location Performer Type Date EMERGENCY 87690 RUDY JOINER DEPT 7 7 PHYSICIAN VISIT S, [facility] HIGH SEVERITY& THREAT [facility] ZACK - 7 7 [facility] INPATIENT [facility] ZACK - 6 6 [facility] OUTPATIEN [facility] T OFFICE 97978 CAMERON GORDILLO OUTPATIEN 6 6 MEDICAL T VISIT SERV 25 FOUNDATIO MINUTES N EMERGENCY 91716 ZACK DEPT 6 6 [facility] VISIT [facility] HIGH SEVERITY& THREAT [facility] ZACK - 6 6 [facility] OUTPATIEN [facility] ZACK [facility] OTHER 6 6 [facility]PITAL ZACK - OTHER 6 6 [facility] OFFICE 70548 CAMERON GORDILLO OUTPATIEN 6 6 MEDICAL T VISIT SERV 25 FOUNDATIO MINUTES N OFFICE 61182 [facility] OUTPATIEN 6 6 [facility] T VISIT INTERNAL 15 MEDI MINUTES [facility] 6 [facility] T OFF[facility] 47824 [facility] BESSON OUTPATIEN 6 6 [facility] TRACY T VISIT INTERNAL 15 MED MINUTES EMERGENCY 88819 ZACK 6 6 [facility] T VISIT HIGH/URGE NT SEVERITY EMERGENCY 38553 RUDY WANG DEPT 6 6 PHYSICIAN VISIT S, [facility] HIGH SEVERITY& THREAT FUNCJ EMERGENCY 48529 ZACK 6 6 [facility] T VISIT MODERATE SEVERITY EMERGENCY 12388 RUDY WILCOX 6 6 PHYSICIAN CHIDI DEPARTMEN S, PLLC T VISIT HIGH/URGE NT SEVERITY HOSPITAL ZACK - 6 6 [facility] OUTPATIEN INC T [facility] INPATIENT 6 6 [facility] INPATIENT 6 6 [facility] ZACK - 5 5 [facility] OUTPATIEN INC T EMERGENCY 22973 ZACK 5 5 [facility] DEPARTMEN INC T VISIT LOW/MODER SEVERITY [facility] INPATIENT 5 5 [facility] INPAT[facility] 5 5 [facility] ZACK - 5 5 [facility] INPATIENT INC OFFICE 95416 ZACK CONNELL 5 5 [facility] T VISIT 5 HOSPITAL MINUTES P EMERGENCY 16955 ZACK 5 5 [facility] DEPARTMEN INC T VISIT LIMITED/M INOR PROB OFFICE 32317 ZACK CONNELL 5 5 [facility] 10 P MINUTES [facility] ZACK - 5 5 [facility] OUTPATIEN INC T OFFICE 06177 CAMERON GORDILLO OUTPATIMICA 5 5 MEDICAL T VISIT SERV 25 FOUNDATIO MINUTES [facility] ZACK - 5 5 [facility] OUTPATIEN INC T HOSPITAL ZACK - 5 5 [facility] OUTPATIEN INC T OFFICE 87906 [place] WILL OUTPATIMICA 5 5 [facility] T VISIT INTERNAL 25 MEDI MINUTES [facility] ZACK - 5 5 [facility] OUTPATIEN INC T OFFICE 41688 ZACK CALDERON OUTPATIEN 5 5 [facility] VISIT HOSPITAL 15 P MINUTES HOSPITAL ZACK - OTHER 5 5 [facility] OFFICE 65761 ZACK CONNELL 5 5 [facility] T VISIT HOSPITAL 10 P MINUTES [facility] INPATIENT 5 5 [facility] OFFICE 01626 [place] ERIBERT[place] GORDILLO OUTDICKSONEN 5 5 MEDICAL T VISIT SERV 25 FOUNDATIO MINUTES N [facility] INPATIENT 5 5 [facility] INPATIENT 5 5 [facility] 5 5 [facility] ZACK - 5 5 [facility] INPATIENT [facility] EMERGENCY 19364 ZACK Dawn 5 5 [facility] T VISIT P LOW/MODER SEVERITY [facility]OSPITAL ZACK - 5 5 [facility] OUTPATIEN [facility] H[facility]PITAL ZACK - 5 5 [facility] OUTPATIEN [facility] OFFICE 52928 CAMERON GORDILLO OUTPATIEN 4 4 MEDICAL T VISIT SERV 25 FOUNDATIO MINUTES [facility] ZACK - 4 4 [facility]IEN [facility] ZACK - 4 4 [facility]188 [facility] DE[facility] 4 4 ERIC IMT VISIT EMERGENCY HIGH PHYS SEVERITY& THREAT FUN EMERGENCY 05792 ZACK 4 4 [facility] VISIT MODERATE SEVERITY HOSPITAL ZACK - OTHER 4 4 [facility] OFFICE 51957 [place] ERIBERTO GORDILLO OUTPATIEN 4 4 MEDICAL T VISIT SERV 25 FOUNDATIO MINUTES HOSPITAL ZACK - 4 4 [facility] OUTPATIEN [facility] ZACK - KELLIE 4 4 [facility] ZACK - 4 4 [facility] OUTPATIEN INC OFFICE 86112 [facility] OUTPATIEN 3 3 PHYSICIAN JAM T VISIT S GROUP 15 MINUTES OFFICE 19526 CAMERON GORDILLO OUTPATIEN 3 3 MEDICAL T VISIT SERV 25 [facility] ZACK - 3 3 [facility]EN [facility] EMERGENCY 49630 ZACK 3 3 [facility] T VISIT LIMITED/M [facility] ZACK - 3 3 [facility] OUTPATIEN [facility] EMERGENCY 33913 EMEKA ALFORD 3 3 EMERGENCY III [facility] T VISIT HIGH/URGE NT SEVERITY EMERGENCY 36594 EMEKA LIRA DEPT 3 3 EMERGENCY VISIT SERVICES HIGH SEVERITY& THREAT FUN EMERGENCY 95025 ZACK 3 3 [facility] DEPARTMEN [facility] T VISIT HIGH/URGE NT SEVERITY HOSPITAL ZACK - 3 3 [facility] OUTPATIEN [facility] ZACK - 3 3 [facility]PAT[facility] ZACK [facility] 3 3 [facility] OFFICE 81541 CAMERON GORDILLO OUTPATIEN 3 3 MEDICAL T VISIT SERV 25 [facility] ZACK - 3 3 [facility] OUTPAT[facility]EN [facility] ZACK [facility] 3 3 [facility]PAT[facility]EN [facility] ZACK - 3 3 [facility] ZACK - 3 3 [facility] ZACK - 3 3 [facility]PATI[facility] ZACK - 2 2 [facility] EMERGENCY 64387 EMEKA CASTELLANO DEPT 2 2 EMERGENCY VISIT SERVICES HIGH SEVERITY& THREAT [facility] ZACK - 2 2 [facility] ZACK [facility] 2 2 [facility] OFFICE 58043 CAMERON WEI RAND OUTPATIEN 2 2 MEDICAL T VISIT SERV 25 [facility] ZACK - 2 2 [facility] ZACK [facility] 2 2 [facility] ZACK [facility] 2 2 [facility] OFFICE 84661 CAMERON ERIBERTO GORDILLO OUTPATIEN 2 2 MEDICAL T [facility]ISIT SERV 15 [facility] ZACK - 2 2 [facility] EMERGENCY 54178 EMEKA ALFORD DEPT 2 2 EMERGENCY III NNACY VISIT SERVICES [facility]IGH SEVERITY& THREAT [facility] ZACK - 2 2 [facility] EMERGENCY 60410 ZACK 2 2 [facility] T VISIT [facility]IGH/URGE NT SEVERITY [facility]OSPITAL ZACK - 2 2 [facility] 49384 EMEKA WILCOX DEPT 2 2 EMERGENCY [facility] VISIT SERVICES HIGH SEVERITY& THREAT [facility] EMERGENCY 78396 ZACK 2 2 [facility] T VISIT HIGH/URGE NT SEVERITY [facility]OSPITAL ZACK - 2 2 [facility] H[facility]PITAL ZACK [facility] 2 2 [facility] INPATIENT INC OFFICE 56005 FAMILY STRAWZELL OUTPATIEN 2 2 CARE CRI T VISIT ASSOCIATE 25 S, PSC MINUTES OFFICE 75418 [facility] OUTPATIEN 2 2 CARE CRI T VISIT ASSOCIATE 15 S, PSC MINUTES EMERGENCY 09649 ZACK 2 2 [facility] DEPART[facility] INC T VISIT LOW/MODER SEVERITY [facility]OSPITAL ZACK - 2 2 [facility] OUTPATIEN [facility] T EMERGENCY 47354 EMEKA ALFORD 2 2 EMERGENCY III [facility] T VISIT HIGH/URGE NT SEVERITY OFFICE 93309 [place] WEISada GORDILLO OUTPATIEN 2 2 MEDICAL T VISIT SERV 25 [facility] ZACK [facility] 2 2 [facility] OUTPATIEN [facility] T OFFICE [address] PAWSAT PAWSAT OUTPATIEN 2 2 Aug T NEW 30 MINUTES HOSPITAL [facility] - 1 1 [facility] OUT[facility]EN [facility] T OFFICE [id number] [place] ERIBERTO GORDILLO OUTPATIEN 1 1 MEDICAL T VISIT SERV 25 [facility] Z[facility] - 1 1 [facility] H[facility]PITAL ZACK - 1 1 [facility]EN [facility] H[facility]PITAL ZACK - 1 1 [facility]IEN [facility] EMERGENCY [id number] ZACK 1 1 [facility] DEPARTMEN [facility] T VISIT MODERATE SEVERITY [facility]OSPITAL ZACK - 1 1 [facility] H[facility]PITAL ZACK - 1 1 [facility] HOSPITAL ZACK [facility] 1 1 [facility] OUTPATIEN [facility] T OFFICE [id number] [place] S[place] OUTPATIEN 1 1 [place] T NEW 45 CLINIC MINUTES [facility] ZACK - 1 1 [facility] OUTPATIEN [place] T OFFICE [address]63 [place] ERIBERTO GORDILLO OUTPATIEN 1 1 MEDICAL T NEW 60 SERV MINUTES [facility] ZACK - 1 1 [facility] OUTPATIEN INC T OFFICE 38339 FAMILY LOGANBERRY OUTPATIEN 1 1 CARE NILO T VISIT ASSOCIATE 40 S MINUTES HOSPITAL [facility] - 1 1 [facility] OUT[facility]IEN INC T EMERGENCY 21432 EMEKA WU 1 1 EMERGENCY JAM DEPARTMEN SERVICES T VISIT MODERATE SEVERITY EMERGENCY [id number] ZACK 1 1 [facility] DEPARTMEN INC T VISIT LOW/MODER SEVERITY OFFICE 42721 FAMILY LOGANBERRY OUTPATIEN 1 1 CARE NILO T VISIT ASSOCIATE 25 S MINUTES OFFICE [id number] ANKUSH LECHUGA JR OUTPATIEN 1 1 ELAINE ELAINE T VISIT 15 MINUTES [facility]OSPITAL [facility] - 1 1 [facility]IEN INC T OFFICE 86837 ANKUSH LECHUGA JR OUTPATIEN 1 1 ELAINE ELAINE T NEW 45 MINUTES [facility]PITAL ZACK - 1 1 [facility]EN INC T [facility] ZACK - 1 1 [facility] OUTPATIEN INC T OFFICE 94555 FAMILY JADA OUTPATIEN 1 1 CARE NILO T VISIT ASSOCIATE 25 S MINUTES EMERGENCY [id number] ZACK 1 1 [facility] DEPARTMEN INC T VISIT LOW/MODER SEVERITY [facility] - 1 1 [facility] OUTPATIEN INC T EMERGENCY 54782 EMEKA CASTELLANO 1 1 EMERGENCY DEPARTMEN SERVICES T VISIT HIGH/URGE NT SEVERITY OFFICE 40474 FAMILY BRENDAN J OUTPATIEN 1 1 CARE T VISIT ASSOCIATE 15 S MINUTES EMERGENCY [id number] ZACK 0 0 [facility] DEPARTMEN INC T VISIT LOW/MODER SEVERITY [facility]PITAL ZACK - 0 0 [facility] OUTPATIEN INC T EMERGENCY 45691 EMEKA WILCOX 0 0 EMERGENCY [place] DEPARTMEN SERVICES T VISIT HIGH/URGE NT SEVERITY OFFICE 55514 FAMILY BRENDAN J OUTPATIEN 0 0 CARE T VISIT ASSOCIATE 15 S MINUTES OFFICE 78794 FAMILY BRENDAN J OUTPATIEN 0 0 CARE T VISIT ASSOCIATE 15 S MINUTES HOSPITAL ZACK - 0 0 [facility] OUTPATIEN INC T OFFICE 39151 FAMILY MULBERRY OUTPATIEN 0 0 CARE NILO T VISIT ASSOCIATE 25 S MINUTES HOSPITAL ZACK - 0 0 [facility] OUTPATIEN INC T [facility]OSPITAL ZACK - 0 0 [facility] 69889 [facility] JAM T NEW 45 S GROUP MINUTES [facility] ZACK - 0 0 [facility] OUTPATIEN INC T EMERGENCY 95708 EMEKA WILCOX 0 0 EMERGENCY [facility] DEPARTMEN SERVICES T VISIT HIGH/URGE NT SEVERITY EMERGENCY 05552 ZACK 0 0 [facility] DEPARTMEN INC T VISIT MODERATE SEVERITY OFFICE 57261 FAMILY MULBERRY OUTPATIEN 0 0 CARE NILO T VISIT ASSOCIATE 25 S MINUTES OFFICE 17483 FAMILY MULBERRY, OUTPATIEN 0 0 CARE CLEO T T VISIT ASSOCIATE 15 S MINUTES OFFICE 01055 FAMILY MULBERRY, OUTPATIEN 0 0 CARE CLEO T T VISIT ASSOCIATE 25 S MINUTES OFFICE [id number] FAMILY MULBERRY, OUTPATIEN 0 0 CARE CLEO T T VISIT ASSOCIATE 15 S MINUTES OFFICE 55568 FAMILY MULBERRY, OUTPATIEN 0 0 CARE CLEO T T VISIT ASSOCIATE 25 S MINUTES EMERGENCY 45785 ALPHONSO CAMPBELL 0 0 EMERGENCY TAYA S VISIT SERVICES HIGH SEVERITY& ASSOCIATE [facility] Z[facility] INPATIENT INC OFFICE 53478 FAMILY JADA, OUTPATIEN 0 0 CARE CLOE T T VISIT ASSOCIATE 15 S MINUTES EMERGENCY 41813 ZACK 0 0 [facility] DEPARTMEN INC T VISIT LOW/MODER SEVERITY [facility]OSPITAL ZACK - 0 0 [facility] OUTPATIEN INC [facility] ZACK - 0 0 [facility] OUTPATIEN INC T OFFICE 01977 MEANS BUTROS, OUTPATIEN 9 9 ADULT RERANDALLLLA T VISIT PRIMARY 15 CARE [facility] ZACK - 9 9 [facility] OUTPATIEN INC T OFFICE 30970 MEANS BUTROS, OUTPATIEN 9 9 ADULT REVANESAA T VISIT PRIMARY 25 CARE [facility] ZACK - 9 9 [facility] OUTPATIEN INC T OFFICE 80826 MEANS BUTROS, CONSULTAT 9 9 ADULT REZSHEALLA ION PRIMARY [facility] PATIENT CENTER 80 MIN [facility] ZACK - 9 9 [facility] OUTPATIEN INC T OFFICE 40151 FAMILY JADA, OUTPATIEN 9 9 CARE CLEO T T VISIT ASSOCIATE 15 S MINUTES [facility] ZACK - 9 9 [facility] OUTPATIEN INC T OFFICE 09750 FAMILY JADA OUTPATIEN 9 9 CARE CLEO T T VISIT ASSOCIATE 25 S MINUTES OFFICE 12394 FAMILY JADA OUTPATIEN 9 9 CARE CLEO T T VISIT ASSOCIATE 25 S MINUTES OFFICE 26792 FAMILY KO OCAMPO 8 8 CARE R PADMINI T VISIT ASSOCIATE 25 S MINUTES HOSPITAL ZACK - 8 8 [facility] OUTPATIEN INC T OFFICE 44985 Sameer MARCOS 8 8 CARE G T VISIT ASSOCIATE 15 S MINUTES HOSPITAL ZACK - 8 8 [facility] INC T EMERGENCY 45792 ZACK Wallace [facility] L[facility]MODER SEVERITY [facility] ZACK - Rodrigo 8 [facility] [id number] ZACK Wallace 8 [facility]/M INOR PROB
--- OUTSIDE RECORDS SUMMARY | 2016-10-20 17:43 | External Medical Summary Rpt ---
Demographics Preferred Language Cameroonian Marital Status Unknown Restorationism Affiliation Unknown Race Unknown Ethnic Group Unknown Author Author , Organization [employer] Address Unknown Phone Unavailable Purpose Continuity of Care Document - through 2016 Immunization No patient found.
--- OUTSIDE RECORDS SUMMARY | 2016-10-20 17:43 | External Medical Summary Rpt ---
Demographics Preferred Language Macedonian Marital Status Unknown Voodoo Affiliation Unknown Race Unknown Ethnic Group Unknown Author Author , Organization [employer] Address Unknown Phone Unavailable Purpose Continuity of Care Document - through 2016 Immunization No patient found.
[2016-10-20 18:21] LABS: HEMOGLOBIN 10.4 g/dL (12.2-16.2); LYMPH % 8.8 % (10-50.0)
--- NOTE | 2016-10-20 18:35 | Emergency Room Report ---
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 N Clinical Suspician of Infection? N Mental Status: 1 - Regular (Normal Baseline) Sepsis Risk:Possible Sepsis Risk Have you (or family members/close friends) recently traveled outside the [place]? N If Yes, where/when: Have you had exposure to infectious disease within the past month? N TB? Other? Specify: Source patient, RN notes reviewed, family, RN/MD Exam Limitations no limitations Comment This is a 76-year-old lady from [facility] brought in by ambulance with body aches (worst in the chets and upper back), onset yesterday morning. Patient was seen in the emergency room yesterday, diagnosed with pneumonia and discharged on Zithromax. She is known with diabetes, peripheral neuropathy, chronic renal failure. Approximately one month ago patient had the heart attack, and she underwent a coronary angiogram with stent placing by Dr. Rhett Sidhu, at [facility]. She was started on Brillinta and Coreg since. ALLERGIES Coded Allergies: vancomycin (Severe, 09/13/16) Sulfa (Sulfonamide Antibiotics) (Mild, 09/13/16) celecoxib (From CELEBREX) (Mild, 09/13/16) cephalexin (From KEFLEX) (Mild, 09/13/16) levofloxacin (From LEVAQUIN) (Mild, 09/13/16) Home Medications Active Scripts Lisinopril 2.5 MG PO DAILY #30 TAB Ref 1 Prov: 09/16/16 Ticagrelor (Brilinta) 90 MG PO BID #60 TAB Ref 2 Prov: 09/16/16 Atorvastatin Calcium (Atorvastatin) 40 MG PO QHS #30 TAB Ref 2 Prov: 09/16/16 APAP 300MG W/CODEINE 30MG (Acetaminophen-Cod #3 Tablet) 1 TAB PO Q4HP PRN PAIN #90 TAB Ref 1 Prov: 09/16/16 Lorazepam (Ativan) 0.5 MG PO QHSP PRN insomnia #30 TAB Ref 1 Prov: 09/16/16 Azithromycin (Zithromax 250 Mg) 250 MG PO DAILY #4 TAB Prov: 10/19/16 Reported Medications Allopurinol 200 MG PO DAILY Ins Asp-Prt 70/Asp 30(Nvlogmx) (Novolog Mix 70-30 Flexpen Syrn) 5 UNITS SC QHS Ins Asp-Prt 70/Asp 30(Nvlogmx) (Novolog Mix 70-30 Flexpen Syrn) 25 UNITS SC QAM Levothyroxine Sodium (Levothyroxine) 0.05 MG PO DAILY Amitriptyline Hcl (Amitriptyline) 25 MG PO QHS #30 TAB Escitalopram Oxalate 10 MG PO DAILY #30 TAB ASPIRIN (Aspirin) 81 MG PO DAILY Carvedilol (Carvedilol 6.25MG) 6.25 MG PO BID Calcium Carbonate (Dtro-[id number]-290) 500 MG PO DAILY Furosemide (Lasix 40MG) 40 MG PO DAILY POTASSIUM CHL (Potassium Chloride) 20 MEQ PO DAILY History Medical History General CAD? No Angina: No MT: Yes Hypertension? Yes Hyperlipidemia? Yes CHF? Yes DVT? No PE? No COPD? No Asthma? No Anemia? No GERD? No Gastric ulcers? No GI Bleed? No Hernia? No Thyroid Problems? Yes Hypothyroidism? Yes CVA? No Seizures? No Diabetes? Yes Insulin Dependent: Yes Insulin Pump: No Home FSBS? Yes Renal Insuffiency? Yes End Stage Renal Disease? Yes UTI? Yes Stones? No BPH? No GB Disease: No Nephritic Syndrome? No Asplenia? No Hepatitis? No Sickle Cell Disease? No Arthritis? Yes Migraines? No Cataracts? No Glaucoma? No MRSA? No HIV? No TB? No Anxiety? No Depression? Yes Cancer? No More? Yes Additional hx: OSTEOPEROSIS, GOUT, Neuropathy, insomnia, chronic pain, CKD followed by Nephrology Immunization Hx DT/Tetanus 1-4 YRS Flu Refused Pneumonia Received In Past Surgical Hx Previous Surgery?Y TONSILECTOMY CARDIAC STENTS Family History Family Hx Diabetes Yes CAD Yes Hypertension Yes Hyperlipidemia Yes Cancer No TB No Social History Smoking Hx Smoker: Former Smoker Tobacco: No Packs/day N/A Alcohol Alcohol: No Review of Systems All Other Systems Reviewed and Negative Cardiovascular chest pain Musculoskeletal muscle pain (body aches) Psychiatric/Neurological weakness Physical Exam Vital Signs Vital Signs Date Time Temp Pulse Resp B/P Pulse O2 O2 Flow FiO2 Ox Delivery Rate 10/208 101 20 89/55 100 10/20 2057 100 ROOM AIR 10/20 1947 94 20 98/63 100 10/20 1928 20 10/20 1910 98.0 94 20 96/58 94 10/20 1908 94 20 96/58 94 10/20 1845 20 10/20 1826 91 14 84/51 97 10/20 1713 98.3 94 20 93/65 93 General Appearance normal appearance, WD/WN, moderate distress Neck normal inspection, supple, full range of motion Respiratory Status Yes: trachea midline, chest symmetrical, non tender chest. No: respiratory distress. Lung Sounds bilateral: normal breath sounds, lungs clear. 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 No Comment 18:15 - patient reevaluated she appears to be mildly hypotensive, with a systolic of 95, still complaining with chest pain. Patient advised of findings as well as need for hospitalization, with cardiology consultation. 18:30 -Case discussed with Dr. Lewis, covering for Dr. Starks, advised of patient's presentation, findings, ED course. Dr. Lewis recommended adding Zosyn, to the Zithromax started yesterday, and consultation for cardiology. Dr. Lewis also recommended gentle hydration order to bring the blood pressure above 100 systolic, and holding the lisinopril. Dr. Lewis agreeable with management of hyperkalemia. I'll write temporary bridge admission orders, per hospital protocol. Upon patient's arrival to the unit, the floor nurse will contact Dr. Lewis know that obtain full inpatient admission orders. Care transferred at this time to Dr. Lewis/Raudel/Nahum. 18:40-case discussed with Dr. Sidhu, advised of patient's presentation, exam, findings, ED course. Dr. Sidhu recommended continuing the Brillenta, Coreg, and adding Lovenox subcutaneous. 19:15-after Nitropaste, aspirin, Lovenox and Dilaudid patient appears to be improving, blood pressure is now 116 systolic. Results/Orders Laboratory Tests 10/20/161809: TSH 2.32, Free T4 Index 4.6 L, Thyroxine (T4) 4.4 L, T3 Uptake 42 H 10/20/161809: Amylase 20 L, Lipase 67 L 10/20/161809: Sodium 132 L, Potassium 6.1 *H, Chloride 100, Carbon Dioxide 23, BUN 81 H, Creatinine 3.1 H, Estimated Creat Clear 22 L, Estimated GFR (MDRD) 15 *L, Glucose 167 H, Calcium 8.1 L, Total Bilirubin 0.7, AST 33, ALT 29, Alkaline Phosphatase 124 H, Creatine Kinase 605 H, CK and CKMB Interp 5.1 H, Troponin I 0.24 H, Total Protein 6.9, Albumin 2.6 L, Globulin 4.3 H, Albumin/Globulin Ratio 0.6 L, WBC 10.9 H, RBC 3.29 L, Hgb 10.4 L, Hct 33.2 L, MCV 100.7 H, RDW 16.1, Plt Count 227, MPV 7.4, Gran % 85.2 H, Gran # 9.3 H, Total Counted 100, Lymphocytes % 8.8 L, Monocytes % 5.7, Eosinophils % 0.1, Basophils % 0.1, Neutrophils 92 H, Lymphocytes (Manual) 6 L, Lymphocytes # 1.0, Monocytes ( Manual) 2, Monocytes # 0.6, Eosinophils # 0.0, Basophils # 0.0, Platelet Estimate NORMAL, Hypochromasia 1+, PUBS MCHC 31.3 L, MCH 31.5 H Current Medication Orders Sig/Judith Start time Last Medication Dose Route Stop Time Status Admin Allopurinol 200 MG DAILY 10/21 899 UNV PO Calcium Carbonate 500 MG DAILY 10/21 899 UNV PO Insulin Aspart Prota 25 UNITS QAM 10/21 899 UNV 70%/Aspart 30% SC Piperacillin Sod/ 2.25 GM Q6 10/20 2299 UNVr Tazobactam Sod IV Sodium Chloride 50 ML Hydromorphone HCl 1 MG Q4HP PRN 10/20 2129 UNV 10/20 IV 2230 Morphine Sulfate 4 MG Q4HP PRN 10/20 2129 UNV IV Sodium Chloride 1,000 ML .[id number] 10/20 2129 UNV 10/20 IV 2212 Atorvastatin Calcium 40 MG QHS 10/20 2099 UNV 10/20 PO 220 Carvedilol 6.25 MG BID 10/20 2099 UNV 10/20 PO 2207 Diagnostic Test (Pha) 1 EACH W/MEALS&HS 10/20 2099 UNV FS 12/19 2058 Diagnostic Test (Pha) 1 EACH W/MEALS&HS 10/20 2099 UNV FS 12/19 2058 Diagnostic Test (Pha) 1 EACH W/MEALS&HS 10/20 2099 UNV FS 12/19 2058 Enoxaparin Sodium 90 MG BID 10/20 2099 UNV SC Insulin Aspart Prota 5 UNITS QHS 10/20 2099 UNV 10/20 70%/Aspart 30% SC 220 Insulin Human [rDNA See Dose W/MEALS&HS 10/20 2099 UNV origin] Insts (1) SC Nitroglycerin 0.5 IN Q8 10/20V TP Ticagrelor 90 MG BID 10/20 2099 UNV 10/20 PO 232 Levothyroxine Sodium 0.05 MG DAILY 10/20 2041 UNV 10/20 PO 232 Aspirin 81 MG DAILY 10/20 2040 UNVr 10/20 PO 223 Azithromycin 500 MG DAILY 10/20 2038 UNV 10/20 Sodium Chloride 250 ML IV 220 Albuterol 0 .STK-MED ONE 10/20 1950 DC INH Insulin Human Regular 0 .STK-MED ONE 10/20 1936 DC .ROUTE Dextrose 0 .STK-MED ONE 10/21 1935 DC .ROUTE Nitroglycerin 0 .STK-MED ONE 10/21 1935 DC .ROUTE Sodium Polystyrene 0 .STK-MED ONE 10/21 1935 DC Sulfonate .ROUTE Calcium Gluconate 0 .STK-MED ONE 10/20 1934 DC .ROUTE Sodium Bicarbonate 0 .STK-MED ONE 10/20 1934 DC .ROUTE Albuterol 2.5 MG ONCE ONE 10/20 193 DC 10/20 INH 10/20 Calcium Gluconate 1 GM ONCE ONE 10/20 193 DC 10/20 IVP 10/20 Dextrose 50 ML ONCE ONE 10/20 193 DC 10/20 IVP 10/20 Insulin Human Regular 10 UNITS ONCE ONE 10/20 1930 DC 10/20 IVP 10/20 Sodium Bicarbonate 50 ML ONCE ONE 10/20 193 DC 10/20 IV 10/20 Sodium Polystyrene 30 GM ONCE ONE 10/20 193 DC 10/20 Sulfonate PO 10/20 Enoxaparin Sodium 0 .STK-MED ONE 10/20 1914 DC SC Morphine Sulfate 4 MG ONCE ONE 10/20 1914 DC 10/20 IV 10/21 1915 192 Morphine Sulfate 0 .STK-MED ONE 10/20 1914 DC .ROUTE Nitroglycerin 1 IN ONCE ONE 10/20 1914 DC 10/20 TP 10/21 1915 193 Enoxaparin Sodium 90 MG DAILY 10/20 1912 AC 10/20 SC 1928 Morphine Sulfate 1 MG ONCE ONE 10/20 184 DC / IV 10/20 184 1845 Ondansetron HCl 4 MG ONCE ONE 10/20 184 DC / IV 10/20 184 1844 Piperacillin Sod/ 0 .STK-MED ONE 10/20 183 DCr Tazobactam Sod .ROUTE Sodium Chloride 50 ML .STK-MED ONE 10/20 183 DC IV Morphine Sulfate 0 .STK-MED ONE 10/20 183 DC .ROUTE Ondansetron HCl 0 .STK-MED ONE 10/20 183 DC .ROUTE Piperacillin Sod/ 3.375 GM ONCE ONE 10/20 1830 DCr / Tazobactam Sod IV 10/20 185 184 Sodium Chloride 50 ML Sodium Chloride 10 ML PRN PRN 10/20 174 AC / IV 10/21 1735 2234 Dose Instructions: (1)Insulin Human [rDNA origin]: SEE ADMIN CRITERIA FOR LOW INTENSITY SS Orders Procedure Date/time Status DIET-2000 CALORIE ADA 10/21 B Active ECHO ADULT 10/21 0800 Active CARDIAC ENZYMES 10/21 0400 Active LIPID PROFILE 10/21 UNK Active CARDIAC ENZYMES 10/20 2200 Complete RT Pulse Oximetry, Provide 10/20 2057 Active RT Aerosol Treatment, Provide 10/20 2054 Active RT REQUEST ALBUTEROL NEB 10/20 192 Active Decision to admit 10/20 1831 Active DIFFERENTIAL-WBC 10/20 1810 Complete THYROID PANEL 2 (WITH TSH) 10/20 1751 Complete CULTURE, BLOOD 10/20 1750 Active LIPASE 10/20 1750 Complete LACTIC ACID 10/20 1750 Complete AMYLASE 10/20 1750 Complete 12 LEAD EKG-BESSON (INITIAL) 10/20 1736 Active ELECTROCARDIOGRAM REQUEST 10/20 1736 Active IV SALINE LOCK 10/20 1736 Active OXYGEN PER NURSE 10/20 1736 Active CARDIAC/VASCULAR SONOGRAPHER 10/20 1736 Active TROPONIN I 10/20 1736 Complete CPK 10/20 1736 Complete COMPLETE METABOLIC PANEL 10/20 1736 Complete CKMB 10/20 1736 Complete CBC WITH AUTO DIFF 10/20 1736 Complete ADMIT PATIENT 10/20 UNK Active PULSE OXIMETRY REQUEST 10/20 UNK Active OXYGEN REQUEST 10/20 UNK Active VITAL SIGNS 10/20 UNK Active WHARF ATTENDANT 10/20 UNK Active POM NURSE ALEX HOSE ORDER 10/20 UNK Active URINARY CATHETER INSERT 10/20 UNK Active CODE STATUS 10/20 UNK Active PATIENT ACTIVITY ORDER 10/20 UNK Active URINALYSIS/COMPLETE 10/20 UNK Active SPECIALTY CLINIC PHYS CONSULT 10/20 UNK Active 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 of ischemic chgs, no ectopy, normal QRS, no EKG for comparison, non-spec. ST/Twave chgs, ST elevation, ST depression, LBBB, RBBB, ectopy, abnormal Q waves XRAY/CT/US XRAY/CT/US XRAY chest XR interpretation by reviewed by me Xray Results abnormal Comment See radiologist's report, RLL infiltrate Departure Departure Time of Disposition 183 Disposition Still a Patient Clinical Impression Primary Impression: Pneumonia Qualifiers: Pneumonia type: due to unspecified organism Laterality: unspecified laterality Lung location: unspecified part of lung Qualified Code: J18.9 - Pneumonia, unspecified organism Secondary Impressions: Hyperkalemia Hypotension Qualifiers: Hypotension type: unspecified hypotension type Qualified Code: I95.9 - Hypotension, unspecified NSTEMI (non-ST elevated myocardial infarction) Condition STABLE ED Critical Care Critical Care Yes Time spent 30-74 min Vital system(s) involved: Circulatory Failure I was present at bedside for Coordinating pt's care, Interpreting EKGs/Strips , During my initial exam, Reviewing lab results, Reviewing old records, Discussing pt condition, For re-examinations, Examining radiographs at 1286
[2016-10-20 19:05] LABS: FREE THYROXIN INDEX 4.6 ug/dl (5.93-13.13)
[2016-10-20 19:18] LABS: NEUTROPHILS 92 % (42-76)
--- OUTSIDE RECORDS SUMMARY | 2016-10-20 19:26 | External Medical Summary Rpt ---
Author Author , Organization [employer] Address Unknown Phone Unavailable Care Team Providers Care Crester Name Role Phone CALDERON VALENTINE, CALDERON Unavailable [...] RODRIGUEZ ALL, RODRIGUEZ ALL Unavailable Unavailable [facility] Unavailable Unavailable SERVICE, [facility] Unavailable Unavailable SERVICE, [facility] BUTROS, REZKALLA, Unavailable Unavailable BUTROS, REZKALLA [facility] Unavailable Unavailable CONSULTANTS O, [facility] Unavailable Unavailable CAMPUS, [facility] Unavailable Unavailable CAMPUS, [facility] Unavailable Unavailable [place], [facility] [...] [facility]AN[facility]BAPTISTE LEIGHTON, Unavailable Unavailable [facility], Unavailable Unavailable [facility] DORITA DELUNA [...] S MARISOL ANDREZ, Unavailable Unavailable MARISOL ANDREZ [facility] Unavailable Unavailable INC, [facility] Unavailable Unavailable Hospital, [facility] Unavailable Unavailable HOSPITAL P, [facility] PETERS LANNY, PETERS LANNY Unavailable Unavailable PETERS LANNY, PETERS LANNY Unavailable Unavailable PETERS, GEE A, Unavailable Unavailable PETERS, GEE A [facility], Unavailable Unavailable [facility] JOINER, JOINER Unavailable Unavailable KLARISSA IMT, KLARISSA Unavailable Unavailable IMT Scarlet Patterson SENIOR ANALYST DEVELOPER, Unavailable Unavailable Scarlet Patterson SENIOR ANALYST DEVELOPER [facility] Unavailable Unavailable [facility], [facility] KOTTER JUAN J, KOTTER [...] MED [facility] Unavailable Unavailable [facility], [facility] Unavailable Unavailable SERVICES, [facility] MCKEMIE JR NANCY, Unavailable Unavailable MCKEMIE JR NANCY MICH CARLOS, MICH Unavailable Unavailable CARLOS MICH, XAVI P, Unavailable Unavailable CARLOS EPPSETT P MULBERRY NILO, Unavailable Unavailable MULBERRY NILO MULBERRY, CLEO T, Unavailable Unavailable MULBERRY, CLEO T CROWELL SON, CROWELL SON Unavailable Unavailable [facility] Unavailable Unavailable [facility], [facility] Clemente OCAMPO, Unavailable Unavailable [...] [facility] Unavailable Unavailable [facility], [facility] Unavailable Unavailable [facility], [facility] Unavailable Unavailable [facility], [facility] Unavailable Unavailable EMERGENCY PHYS, [facility] Unavailable Unavailable CLINIC, [facility] STRAWZELL CRI, Unavailable Unavailable STRAWZELL CRI [facility], Unavailable Unavailable [facility], Unavailable Unavailable [facility] WEI RAND, WEI RAND Unavailable Unavailable WEHRMAN III NANCY, Unavailable Unavailable WEHRMAN III NANCY [facility] Unavailable Unavailable LLC, [facility] ELSA LIRA, ELSA LIRA [...] 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 I44.1 Atrioventri [...] 10-13-2016 index (BMI) 50-59.9 , adult 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 atelets 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) use of 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 Z86.73 Personal 10-13-2016 history of transient ischemic attack (TIA), and cerebral infarction without residual deficits Z98.61 Coronary 10-13-2016 angioplasty status I44.30 Unspecified 10-07-2016 atrioventri cular block R57.9 Shock, 09-30-2016 unspecified E109 TYPE 1 09-14-2016 [facility] DIABETES PHYSICIANS MELLITUS GROUP WITHOUT COMPLICATIO NS I213 ST 09-14-2016 [facility] ELEVATION PHYSICIANS MYOCARDIAL GROUP INFARCTION UNS SITE I739 PERIPHERAL 09-14-2016 [facility] VASCULAR PHYSICIANS DISEASE GROUP UNSPECIFIED N183 CHRONIC 09-14-2016 [facility] KIDNEY PHYSICIANS DISEASE GROUP STAGE 3 MODERATE E1142 TYPE 2 09-13-2016 [facility] P W/DIAB POLYNEUROPA THY I119 HYPERTENSIV 09-13-2016 [facility] E HEART PHYSICIANS, DISEASE PLLC WITHOUT HEART FAILURE I129 HYPERTENSIV 09-13-2016 [facility] E CKD [facility] W/STAGE 1-4 INC CKD OR UNS CKD I41854 [facility] [place] 09-13-2016 [facility] COR ART [facility] W/UNSTABLE INC ANGINA PECTORIS I5043 ACUTE ON 09-13-2016 [facility] P SYSTOLIC & DIASTOLIC CHF I773 ARTERIAL 09-13-2016 [facility] FIBROMUSCUL [facility] AR INC DYSPLASIA R0602 SHORTNESS 09-13-2016 H OF BREATH PHYSICIANS GROUP R0689 OTHER 09-13-2016 [facility] ABNORMALITI [facility] ES OF SERVICE BREATHING Z794 PARTS TECHNICIAN 09-13-2016 [facility] CURRENT USE [facility] OF [...] TRACT PHYSICIANS INFECTION LA SITE NOT SPECIFIED O64871 TYPE 2 02-28-2016 [facility] P W/HYPOGLYCE VICTORIANO W/O COMA E162 HYPOGLYCEMI 02-28-2016 [facility] Meza PHYSICIANS, UNSPECIFIED PLLC E876 HYPOKALEMIA 02-28-2016 [facility] INC I10 ESSENTIAL 02-28-2016 [facility] P N I5032 CHRONIC 02-28-2016 [facility] P HEART FAILURE R410 DISORIENTAT 02-28-2016 [facility] ION [facility] UNSPECIFIED SERVICE Z591 INADEQUATE 02-28-2016 [facility] HOUSING [facility] INC B85593 OTHER LONG 02-28-2016 [facility] TERM [facility] CURRENT INC DRUG THERAPY G4733 OBSTRUCTIVE 02-15-2016 [facility] SLEEP HOME APNEA ADULT MEDICAL PEDIATRIC EQUIPME [id number] MX FX 02-15-2016 [facility] PELVIS STBL HOME [...] [facility] RESPONSIVEN SERVICE ESS J34901 CELLULITIS 08-16-2015 [facility] [place] RIGHT [place] LOWER LIMB INTERNAL MED X95656 CELLULITIS 08-16-2015 [facility] [place] LEFT [place] LOWER LIMB INTERNAL MED E1021 TYPE 1 08-10-2015 [facility] DIABETES [facility] MELLITUS INC W/DIABETIC NEPHROPATHY E1065 TYPE 1 08-10-2015 [facility] DIABETES [facility] MELLITUS INC WITH HYPERGLYCEM IA E138 OTH SPEC 08-10-2015 [facility] DIABETES PHYSICIANS, MELLITUS PLLC W/UNS COMPLICATIO NS B71329 CELLULITIS 08-10-2015 [facility] OF PHYSICIANS, UNSPECIFIED PLLC PART OF LIMB R739 HYPERGLYCEM 08-10-2015 [facility] [place] [facility] UNSPECIFIED SERVICE L853 XEROSIS 08-09-2015 [facility] CUTIS [place] INTERNAL MED E6601 MORBID 08-05-2015 [facility] SEVERE [place] OBESITY DUE INTERNAL TO EXCESS MEDI CALORIES I270 PRIMARY 07-20-2015 [facility] PULMONARY [facility] HYPERT[facility] N I5030 UNSPECIFIED 07-20-2015 [facility] CONGESTIVE MAYFLOWER HEART FAILURE R0600 DYSPNEA 07-20-2015 [facility] M542 CERVICALGIA 07-12-2015 [facility] MO[facility]LEX M546 PAIN IN 07-12-2015 [facility] THORACIC MOBILEX SPINE I509 HEART 07-11-2015 [facility] FAILURE VALLEY UNSPECIFIED INTERNAL MED I8311 VARICOSE 07-11-2015 [facility] VEINS RT [place] LOWER INTERNAL EXTREMITY MED W/INFLAMMAT ION M4003 POSTURAL 07-11-2015 [facility] KYPHOSIS [place]LEY CERVICOTHOR INTERNAL ACIC REGION MED R05 COUGH 06-05-2015 [facility] R600 LOCALIZED 05-09-2015 C[facility]CU [...] HOSP 40.0-44.9 INC ADULT N3020 OTHER 04-28-2015 [facility] P WITHOUT HEMATURIA J209 ACUTE 03-31-2015 [facility] BRONCHITIS [facility] UNSPECIFIED INC I72792 PERSONAL 03-31-2015 [facility] HISTORY OF [facility] NICOTINE INC DEPENDENCE A499 BACTERIAL 03-23-2015 [place] [facility] INFECTION SERV UNSPECIFIED FOUNDATION R279 UNSPECIFIED 03-19-2015 [facility] LACK OF [facility] COORDINATIO INC N Z5189 ENCOUNTER 03-19-2015 [facility] FOR OTHER [facility] SPECIFIED INC AFTERCARE 92919 DIAB W/O 03-17-2015 [facility] COMP TYPE I HOME [JUV] NOT MEDICAL STATED EQUIPME UNCNTRL 95012 OBSTRUCTIVE 03-17-2015 [facility] SLEEP HOME APNEA MEDICAL EQUIPME 81103 MULTIPLE 03-17-2015 [facility] CLOSED HOME PELVIC FX MEDICAL DISRUPT EQUIPME PELVIC KOTZEBUE 2449 UNSPECIFIED 03-10-2015 [facility] HYPOTHYROID INC ISM 39667 DIAB W/O 03-10-2015 [facility] COMP TYPE [facility] II/UNS NOT INC STATED UNCNTRL 5854 CHRONIC 03-10-2015 [facility] DISEASE INC STAGE IV (SEVERE) 5990 URINARY 03-10-2015 [facility] TRACT [facility] INFECTION INC SITE NOT SPECIFIED 41201 UNSPECIFIED 03-10-2015 [facility] OSTEOPOROSI INC S 4019 UNSPECIFIED 03-02-2015 [facility] ESSENTIAL [place] HYPERTENSIO INTERNAL N MEDI 4541 VARICOSE 03-02-2015 [facility] [place] LOWER [place] INTERNAL EXTREMITIES MEDI W/INFLAMMAT ION 68227 UNSPECIFIED 03-02-2015 [facility] CONSTIPATIO INTERNAL N MEDI 5939 UNSPECIFIED 03-02-2015 [facility] DISORDER VALLEY OF KIDNEY INTERNAL AND URETER MEDI 7823 EDEMA 03-02-2015 [facility] INTERNAL MEDI 89848 UNSPECIFIED 03-02-2015 [facility] RETENTION [place] OF URINE INTERNAL MEDI 61812 UNSPECIFIED 02-24-2015 [facility]ULT[facility] 7813 LACK OF 02-24-2015 [facility] P V571 OTHER 02-24-2015 [facility] PHYSICAL [facility] THERAPY INC 5952 OTHER 02-03-2015 [facility] P 2761 HYPOSMOLALI 01-17-2015 [facility] TY AND/OR HEALTH HYPONATREMI CAMPUS A 39811 LEUKOCYTOSI 01-17-2015 [facility] S HEALTH UNSPECIFIED CAMPUS 5849 ACUTE 01-17-2015 [facility] KIDNEY HEALTH FAILURE CAMPUS UNSPECIFIED 7197 DIFFICULTY 01-17-2015 [facility] IN WALKING HEALTH CAMPUS 89451 MUSCLE 01-17-2015 [facility] WEAKNESS HEALTH (GENERALIZE CAMPUS D) 7993 UNSPECIFIED 01-17-2015 [facility] DEBILITY HEALTH CAMPUS 9953 ALLERGY 01-17-2015 [facility] UNSPECIFIED HEALTH NOT CAMPUS ELSEWHERE CLASSIFIED 02752 HTN CKD UNS 12-25-2014 [place] [facility]ICAL W/CKD SERV STAGE I FOUNDATION THRU STAGE IV/UNS 515 POSTINFLAMM 12-16-2014 [facility] ATORY [facility]BI[facility] PULMONARY FIBROSIS V5881 FITTING AND 12-16-2014 [facility] ADJUSTMENT MOBILEX OF VASCULAR CATHETER 4280 CONGESTIVE 12-09-2014 [facility] HEART [facility]BI[facility] FAILURE UNSPECIFIED 4293 CARDIOMEGAL 12-09-2014 [facility] Y [facility]BILEX 1101 DERMATOPHYT 12-04-2014 [facility] OSIS OF E NAIL 93412 DIAB 12-04-2014 [facility] W/PERIPH E CIRC D/O TYPE II/UNS NOT UNCNTRL 4439 UNSPECIFIED 12-04-2014 [facility] PERIPHERAL E VASCULAR DISEASE 9172 FOOT&TOE 12-04-2014 [facility] BLISTER E WITHOUT MENTION OF INFECTION 9243 CONTUSION 12-04-2014 [facility] OF TOE E 42154 ABDOMINAL 11-03-2014 [facility] PAIN RIGHT MEDICAL UPPER IMAGING ASS QUADRANT 5533 DIAPHRAGMAT 11-01-2014 [facility] KODY W/O MEDICAL MENTION IMAGING ASS OBSTRUCTION /GANGREN 7905 OTHER 11-01-2014 [facility] NONSPECIFIC MEDICAL ABNORMAL IMAGING ASS SERUM ENZYME LEVELS 7862 COUGH 10-30-2014 [facility] V5869 LONG-TERM 10-30-2014 [facility] (CURRENT) [facility] USE OF INC OTHER MEDICATIONS 92908 UNSPECIFIED 10-28-2014 [facility] OTALGIA MEDICAL [facility]ING [facility] 7224 DEGENERATIO 10-28-2014 [facility] N OF MEDICAL CERVICAL IMAGING ASS INTERVERTEB RAL DISC 7231 CERVICALGIA 10-28-2014 [facility] 62023 SENILE 06-23-2014 [facility] OSTEOPOROSI [facility] S INC 0879 UNSPECIFIED 05-20-2014 [facility] VITAMIN D [facility] DEFICIENCY INC 2724 OTHER AND 05-20-2014 [facility] UNSPECIFIED [facility]OS[facility] INC HYPERLIPIDE VICTORIANO 32793 OTHER 05-20-2014 [facility] OSTEOPOROSI [facility] S INC 68242 HYPERTENSIV 02-20-2014 [facility] E HEART [facility] DISEASE INC UNSPEC W/HEART FAIL 4660 ACUTE 02-20-2014 [facility] BRONCHITIS [facility] INC 490 BRONCHITIS 02-20-2014 [facility] NOT N [facility]ERG[facility] SPECIFIED PHYS ACUTE OR CHRONIC 61527 SWELLING OF 02-20-2014 [facility] N EMERGENCY PHYS 5853 CHRONIC 11-18-2013 [facility] DISEASE FOUNDATIO STAGE III (MODERATE) 586 UNSPECIFIED 10-29-2013 [facility] RENAL PHYSICIANS FAILURE [place] 7262 OTHER 05-30-2013 [facility] AFFECTIONS PHYSICIANS OF SHOULDER GROUP REGION NEC 93772 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-2013 [facility] 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 19368 DISORDER OF 05-21-2013 [facility] BONE AND MEDICAL CARTILAGE IMAGING ASS UNSPECIFIED V1559 PERSONAL 05-21-2013 [facility] HISTORY OF MEDICAL OTHER IMAGING ASS INJURY V4981 ASYMPTOMATI 05-21-2013 [facility] C MEDICAL POSTMENOPAU IMAGING ASS KEELY STATUS 12779 UNSPECIFIED 04-29-2013 [facility] INFECTION SERVICES IN CCE & UNS SITE 4659 ACUTE URIS 04-29-2013 [facility] OF EMERGENCY UNSPECIFIED SERVICES SITE 16141 CRAMP OF 04-05-2013 [facility] PHYSICIANS [place] 7241 PAIN IN 01-16-2013 [facility] P 54204 ORTHOPNEA 01-16-2013 [facility] P 88619 OTHER 01-16-2013 [facility] DYSPNEA AND [facility]ERGENCY SERVICES RESPIRATORY ABNORMALITI ES 7265 ENTHESOPATH 10-17-2012 [facility] Y OF HIP [facility] REGION INC 47013 PAIN IN 08-22-2012 [facility] JOINT MEDICAL PELVIC IMAGING ASS REGION AND THIGH 2749 GOUT, 07-16-2012 [place] [address] SHORTNESS 05-28-2012 [facility] 4240 MITRAL 05-27-2012 [facility] DISORDERS INC 32038 OSTEOARTHRO 05-27-2012 [facility] S UNSPEC [facility] WHETHER INC GEN/LOC UNSPEC SITE 66334 CHEST PAIN 05-27-2012 [facility] UNSPECIFIED MEDICAL IMAGING ASS 91308 OTHER CHEST 05-27-2012 [facility] P 5859 CHRONIC 12-01-2011 [facility] DISEASE INC UNSPECIFIED 71078 HYPERSOMNIA 11-15-2011 [facility] WITH SLEEP [facility] APNEA UNSPECIFIED 30424 ANEMIA OF 10-30-2011 [facility] P DISEASE 2859 UNSPECIFIED 10-30-2011 [facility] ANEMIA [facility] 44682 DEGEN 10-30-2011 [facility] THORACIC/TH MEDICAL ORACOLUMBAR IMAGING ASS INTERVERTEB RAL DISC 17912 DEGEN 10-30-2011 [facility] LUMBAR/LUMB MEDICAL OSACRAL IMAGING ASS INTERVERTEB RAL DISC 7242 LUMBAGO 10-30-2011 [facility] P 7245 UNSPECIFIED 10-30-2011 [facility] BACKACHE [facility] 7840 HEADACHE 10-30-2011 [facility] INC 86517 OTHER 10-20-2011 [facility] DISEASES OF MEDICAL LUNG NOT IMAGING ASS ELSEWHERE CLASSIFIED 5199 UNSPECIFIED 10-20-2011 [facility] DISEASE OF MEDICAL IMAGING ASS RESPIRATORY SYSTEM V5867 LONG-TERM 10-19-2011 [facility] USE OF [facility] P 3559 MONONEURITI 10-14-2011 [facility] S OF HOME UNSPECIFIED MEDICAL SITE EQUIPME 96366 OTHER 10-14-2011 [facility] MALAISE AND HOME FATIGUE MEDICAL EQUIPME 5180 PULMONARY 10-05-2011 [facility] COLLAPSE MEDICAL IMAGING ASS 06103 OTHER 09-30-2011 [facility] STAPHYLOCOC [facility] CUS INC INFECTION IN CCE & UNS SITE 2768 HYPOPOTASSE 09-30-2011 [facility] VICTORIANO [employer] 2888 OTHER 09-30-2011 [facility] SPECIFIED DISEASE OF ASSOCIATES, WHITE BLOOD PSC CELLS 4599 UNSPECIFIED 09-30-2011 [facility] CIRCULATORY INC SYSTEM DISORDER 486 PNEUMONIA, 09-30-2011 [facility] ORGANISM [facility] UNSPECIFIED INC 56896 OTHER 09-30-2011 [place] SPECIFIED MEDICAL DISORDERS IMAGING ASS OF BLADDER 95024 OSTEOARTHRO 09-30-2011 [facility] SIS UNSPEC MEDICAL WHETHER IMAGING ASS GEN/LOC LOWER LEG 96669 EFFUSION OF 09-30-2011 [place] LOWER LEG MEDICAL JOINT IMAGING ASS 7291 UNSPECIFIED 09-30-2011 [facility] MYALGIA [employer] MYOSITIS 7295 PAIN IN 09-30-2011 [facility] SOFT TISSUES OF ASSOCIATES, LIMB PSC 7821 RASH AND 09-14-2011 [facility] OTHER NONSPECIFIC ASSOCIATES, SKIN PSC ERUPTION V770 SCREENING 09-14-2011 [facility] FOR THYROID DISORDER ASSOCIATES, PSC V7791 SCREENING 09-14-2011 [facility] FOR LIPOID DISORDERS ASSOCIATES, PSC 55950 DIAB 06-24-2011 [facility] W/NEURO MANIFESTS TYPE II/UNS NOT UNCNTRL 7038 OTHER 06-24-2011 [facility] MAR SPECIFIED DISEASE OF NAIL 06250 SECONDARY 03-29-2011 [facility] OSTEOARTHRO CLINIC PSC SIS LOWER LEG 05080 PAIN IN 03-29-2011 [facility] JOINT, [facility] LOWER LEG INC 08969 BACKGROUND 03-25-2011 [facility] DIABETIC VISION RETINOPATHY 07135 NUCLEAR 03-25-2011 [facility] SCLEROSIS VISION 7820 DISTURBANCE 02-09-2011 [facility] OF SKIN [facility] SENSATION INC 2767 HYPERPOTASS 02-07-2011 [facility] EMIA ASSOCIATES 460 ACUTE 02-07-2011 [facility] NASOPHARYNG ASSOCIATES ITIS 6929 CONTACT 01-27-2011 [facility] DERMATITIS& EMERGENCY OTHER SERVICES ECZEMA DUE UNSPEC CAUSE 38933 PAIN IN 12-09-2010 [facility] JOINT, ASSOCIATES MULTIPLE SITES 54974 UNSPEC 10-28-2010 ALLR[facility] JR VENTRAL ELAINE KODY W/O MENTION OBST/GANGRE N 72307 ABDOMINAL 09-21-2010 [facility] PAIN, [facility] GENERALIZED INC 7831 ABNORMAL 08-24-2010 [facility] WEIGHT GAIN PHYSICIANS [place] 5110 PLEURISY 07-18-2010 [facility] WITHOUT EMERGENCY MENTION SERVICES EFFUS/[place] [address] PAINFUL 07-18-2010 [facility] RESPIRATION [facility]ICAL [facility]ING [facility] 2721 PURE 07-08-2010 [facility] HYPERGLYCER PHYSICIANS IDEMIA [place] 7944 NONSPECIFIC 07-07-2010 [facility] ABNORM ASSOCIATES RESULTS KIDNEY FUNCTION STUDY 38741 ASTHMA, 06-16-2010 [facility] UNSPECIFIED EMERGENCY , SERVICES UNSPECIFIED STATUS 75612 DIAB 05-21-2010 [facility] LANNY W/OPHTH MANIFESTS TYPE II/UNS NOT UNCNTRL 8250 CLOSED 04-28-2010 [facility] FRACTURE OF [facility] CALCANEUS INC V5416 AFTERCARE 04-28-2010 [facility] HEALING MEDICAL TRAUMATIC IMAGING ASS FRACTURE LOWER LEG 8248 UNSPECIFIED 03-31-2010 [facility] CLOSED MEDICAL FRACTURE OF IMAGING ASS ANKLE 72739 OTHER ANKLE 03-31-2010 [facility] [employer] STRAIN S INC 9596 INJURY 02-17-2010 [place] OTHER AND MEDICAL UNSPECIFIED IMAGING ASS HIP AND THIGH 9597 INJURY 02-17-2010 [facility] OTHER&UNSPE MEDICAL CIFIED KNEE IMAGING ASS LEG ANKLE&FOOT 920 CONTUSION 02-16-2010 [facility] OF FACE EMERGENCY SCALP AND SERVICES NECK EXCEPT EYE 09340 CONTUSION 02-16-2010 [facility] OF HIP [facility] INC E8859 FALL FROM 02-16-2010 [facility] OTHER EMERGENCY SLIPPING SERVICES TRIPPING OR STUMBLING 15400 INSOMNIA 02-04-2010 [facility] UNSPECIFIED ASSOCIATES V0382 NEED PROPH 02-04-2010 [facility] VACCINATION ASSOCIATES AGAINST STREP PNEUMONE 41448 URINARY 11-04-2009 [facility] FREQUENCY ASSOCIATES 2811 OTHER 08-24-2009 [facility] VITAMIN B12 ASSOCIATES DEFICIENCY ANEMIA 514 PULMONARY 08-24-2009 [facility] CONGESTION ASSOCIATES AND HYPOSTASIS E8490 PLACE OF 07-10-2009 [facility], MEDICAL HOME IMAGING ASSOCIATES 36390 GEN 04-15-2009 [facility] OSTEOARTHRO [facility] INVOLVING MULTIPLE SITES 7919 OTHER 03-31-2009 [facility] NONSPECIFIC [facility] FINDING INC EXAMINATION OF URINE 13747 NEPHRITIS&N 03-24-2009 [facility] EPHROPATHY PRIMARY W/OTH CARE CENTER PATHOLOG KIDNEY LES 83607 NOCTURIA 03-11-2009 [facility] 19367 HYPERSOMNIA 02-26-2009 [facility] ASSOC[facility] UNSPECIFIED 14463 DIAB 11-28-2008 [facility] W/OPHMADONNA Meza MANIFESTS TYPE II/UNS TYPE UNCNTRL 4619 ACUTE 06-17-2008 [facility] SINUSITIS, ASSOCIATES UNSPECIFIED 8082 CLOSED 03-18-2008 [facility] FRACTURE OF L REHAB PUBIS ASSOC PSC 7089 UNSPECIFIED 11-17-2007 [facility] URTICARIA ASSOCIATES 6868 OTH SPEC 11-12-2007 [facility] INFECTIONS HOSPITAL SKIN&SUBCUT PROF SERV TISSUE V642 SURG/OTH 11-11-2007 [facility] PROC NOT [facility] CARRIED OUT INC BECAUSE PTS DECN 401.9 Essential [place] hypertensio [facility] [id number] Diastolic [place] heart [facility] failure Hospital [id number] Diabetes [place] mellitus [facility] type 2 Hospital [id number] Mitral [place] valve [facility] 786.09 Dyspnea [facility] J18.9 PNEUMONIA, UNSPECIFIED ORGANISM R07.9 CHEST PAIN, [...] RO 40 -3 SE 96 1- Lo TX 10 20 ng DE 20 13 er [...] 02:30 Cnc NT-proBNP SerPl-mCnc (10-03-2016 02:30) NT-proB 90335 0-1799 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 017 pg/mL ed SerPl-m 02:30 Cnc MDRO Wnd (09-30-2016 22:55) CC XXX NOTAP complet VC-aCnc 017 NOT ed 22:55 APPLICA BLE L Bacteri [id number] complet a XXX 017 ed Anaerob 22:55 Staphyl e+Aerob ococcus e Cult aureus (organi sm) SCT SAUR STAPHYL OCOCCUS AUREUS L Bacteri 9277188 complet a XXX 017 01 ed Anaerob [...] mIU/L-a Cnc NT-proBNP SerPl-mCnc (09-30-2016 12:10) NT-proB 40186 0-1799 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 017 pg/mL ed SerPl-m 12:10 Cnc T3 SerPl-mCnc (09-30-2016 12:10) T3 67 87-187 complet SerPl-m 017 ng/dL ed Cnc 12:10 Bacteria Ur Cult (09-30-2016 12:10) CC XXX NOTAP complet VC-aCnc 017 NOT ed 12:10 APPLICA BLE L Bacteri [id number] complet a XXX 017 8 Genus ed Anaerob 12:10 e+Aerob Lactoba e Cult cillus (organi sm) SCT LACB LACTOBA CILLUS SPECIES L Bacteria XXX Anaerobe+Aerobe Cult (09-30-2016 12:10) Bacteri [id number] complet a XXX 017 06 No ed [...] 013 K/mm3 ed Bld 07:55 Auto Eosinop 31-2 0.3 0.0-0.4 complet hil # 013 K/mm3 ed Bld 07:55 Auto Basophi 31-2 0.0 0-0.2 complet ls # 013 K/MM3 ed Bld 07:55 Auto Procedures Procedure DOS Code Location Performer Comment SBSQ 78793 [facility] 7 PHYSICIAN CARE/DAY S GROUP 25 MINUTES AMBULANCE A0429 [facility] SERVICE 7 AMBULANCE AMBULANCE BLS SERVICE SERVICE [facility]ERG[facility]SP[facility]25 [facility] PER SERVICE SERVICE STATUTE MILE ECG 58465 [facility] BARRETO JR ROUTINE 7 [facility] W/LEAST P 12 LDS I&R ONLY DILAT [id number] [facility] CORONARY 7 [facility] ART 2 ART INC INC 2 RX-ELUT [place] DEVC PERQ FLUORO [id number] [facility] MULTI 7 [facility] CORONARY INC INC ARTERIES LOW OSMOLAR CONT FLUOROSCO [id number] [facility] PY LEFT 7 [facility] HEART LOW INC INC OSMOLAR CONTRAST FLUORO [id number] [facility] BILATERAL 7 [facility] RENAL INC INC ART LOW OSMOLAR CONTRST INITIAL 82957 [facility] 7 PHYSICIAN CARE/DAY S GROUP 70 MINUTES MEASUREME [id number] ZACK DIXON NT 7 [facility] CARDIAC INC INC SAMPLING PRESS LT HEART PERQ LIPID 34345 [facility] PANEL 6 [facility] INC INC HEMOGLOBI 18500 ZACK DIXON N 6 [facility] GLYCOSYLA INC INC ALEX A1C COLLECTIO 80808 ZACK Yoo VENOUS 6 [facility] BLOOD INC INC VENIPUNCT URE COMPREHEN 01059 ZACK DIXON SIVE 6 [facility] [place] [address] ZACK DIXON THYROID 6 [facility] STIMULATI INC INC NG HORMONE TSH CULTURE 96160 COMBINED COMBINED BACTERIAL 6 PHYSICIAN PHYSICIAN S LA S LA QUANTTATI VE COLONY COUNT URINE CULTURE 60468 COMBINED COMBINED BCT 6 PHYSICIAN PHYSICIAN ISOL&PRSM S LA S LA PTV ID ISOLATE EA URINE VOLUME 38208 COMBINED COMBINED MEASUREME 6 PHYSICIAN PHYSICIAN NT TIMED S LA S LA COLLECTIO N EACH RENAL 33919 COMBINED COMBINED FUNCTION 6 PHYSICIAN PHYSICIAN PANEL S LA S LA URNLS DIP 20221 COMBINED COMBINED 6 PHYSICIAN PHYSICIAN STICK/TAB S LA S LA LET REAGENT AUTO MICROSCOP Y BLOOD 73354 COMBINED COMBINED COUNT 6 PHYSICIAN PHYSICIAN COMPLETE S LA S LA AUTO&AUTO DIFRNTL WBC 25 15024 COMBINED COMBINED HYDROXY 6 PHYSICIAN PHYSICIAN INCLUDES S LA S LA FRACTIONS IF PERFORMED A4258 ARRIVA ARRIVA WERED 6 MEDICAL TREASURY MANAGEMENT SALES CONSULTANT FOR LANCET EACH NORMAL A4256 ARRIVA ARRIVA LOW AND 6 MEDICAL MEDICAL HIGH CALIBRATO R SOLUTION/ CHIPS LANCETS A4259 ARRIVA ARRIVA PER BOX 6 MEDICAL MEDICAL OF 100 BLD GLU A4253 ARRIVA ARRIVA TEST/REAG 6 MEDICAL MEDICAL T STRIPS HOME BLD GLU MON-50 COLLECTIO 44415 ZACK Yoo VENOUS 6 [facility] BLOOD INC INC VENIPUNCT URE BASIC 57458 ZACK DIXON METABOLIC 6 [facility] PANEL INC INC [facility] G0378 ZACK DIXON OBSERVATI 6 [facility] ON INC INC SERVICE PER HOUR GLUC BLD 18760 ZACK DIXON GLUC MNTR 6 [facility] DEV INC INC CLEARED FDA SPEC HOME USE GLUC BLD 70329 ZACK DIXON GLUC MNTR 6 [facility] DEV INC INC CLEARED FDA SPEC HOME USE BLOOD 22347 ZACK DIXON COUNT 6 [facility] COMPLETE INC INC AUTO&AUTO DIFRNTL WBC URNLS DIP 60479 ZACK DIXON 6 [facility] STICK/TAB INC INC LET REAGENT AUTO MICROSCOP Y PRESSURIZ 06707 ZACK DIXON ED/NONPRE 6 [facility] SSURIZED INC INC INHALATIO N TREATMENT AMB A0427 [facility] SERVICE 6 AMBULANCE AMBULANCE ALS SERVICE SERVICE EMERGENCY TRANSPORT LEVEL 1 CREATINE 24704 [facility] DIX[facility] KINASE 6 [facility] TOTAL INC INC THER 04776 ZACK DIXON PROPH/DX 6 [facility] NJX IV INC INC PUSH SINGLE/1S T SBST/DRUG ECG 25859 ZACK DIXON ROUTINE 6 [facility] ECG INC INC W/LEAST 12 LDS TRCG ONLY W/O I&R COMPREHEN 42791 ZACK DIXON SIVE 6 [facility] METABOLIC INC INC PANEL CREATINE 62449 ZACK DIXON KINASE MB 6 [facility] FRACTION INC INC ONLY HOSPITAL G0378 ZACK DIXON OBSERVATI 6 [facility] ON INC INC SERVICE PER HOUR COLLECTIO 31987 ZACK DIXON N VENOUS 6 [facility] BLOOD INC INC VENIPUNCT URE GROUND A0425 [facility] MILEAGE 6 AMBULANCE AMBULANCE PER SERVICE SERVICE STATUTE MILE ECG 25144 ZACK MCLEAN ROUTINE 6 [facility] W/LEAST P 12 LDS I&[place] [address] ZACK DIXON TROPONIN 6 [facility] QUANTITAT INC INC MARIBEL STANDARD K0001 REID CHAUDHARII 6 HOME HOME R MEDICAL MEDICAL EQUIPME EQUIPME LDS HOSPITAL BED E0260 REID MATHEWS SEMI-ELEC 6 HOME HOME W/ANY MEDICAL MEDICAL TYPE SIDE EQUIPME EQUIPME RAIL W/MATTRSS HOS BED E0260 REID GLASSRELL SEMI-ELEC 6 HOME HOME W/ANY MEDICAL MEDICAL TYPE SIDE EQUIPME EQUIPME RAIL W/MATTRSS STANDARD K0001 REID CHAUDHARII 6 HOME HOME R MEDICAL MEDICAL EQUIPME EQUIPME STANDARD K0001 REID CHAUDHARII 6 HOME HOME [...] HOME BLD GLU MON-50 STANDARD K0001 REID MATHEWS WHEELCHAI 6 HOME HOME R MEDICAL MEDICAL EQUIPME EQUIPME HOS BED E0260 REID REID SEMI-ELEC 6 HOME HOME W/ANY MEDICAL MEDICAL TYPE SIDE EQUIPME EQUIPME RAIL W/MATTRSS BASIC 01857 ZACK DIXON METABOLIC 6 [facility] PANEL INC INC CALCIUM TOTAL COLLECTIO 05817 ZACK DIXON N VENOUS 6 [facility] BLOOD INC INC VENIPUNCT URE LIPID 12217 ZACK DIXON PANEL 6 [facility] INC INC HEMOGLOBI 69856 ZACK DIXON N 6 [facility] GLYCOSYLA INC INC ALEX A1C HOS BED E0260 REID REID SEMI-ELEC 6 HOME HOME W/ANY MEDICAL MEDICAL TYPE SIDE EQUIPME EQUIPME RAIL W/MATTRSS STANDARD K0001 REID GLASSRELL WHEELCHAI 6 HOME HOME R MEDICAL MEDICAL EQUIPME EQUIPME URNLS DIP 95120 ZACK DIXON 6 [facility] [...] STRIPS HOME BLD GLU MON-50 GLUC BLD 71763 ZACK DIXON GLUC MNTR 6 [facility] DEV INC INC CLEARED FDA SPEC HOME USE [facility] G0378 ZACK DIXON OBSERVATI 6 [facility] ON INC INC SERVICE PER HOUR OBSERVATI 98978 [facility] [address] [place] [address] [facility]GE [facility] 39356 ZACK DIXON METABOLIC 6 [facility] PANEL INC INC CALCIUM TOTAL HOSPITAL G0378 ZACK DIXON OBSERVATI 6 [facility] ON INC INC SERVICE PER HOUR COLLECTIO 38508 ZACK DIXON N VENOUS 6 [facility] BLOOD INC INC VENIPUNCT URE BLOOD 30802 ZACK DIXON COUNT 6 [facility] COMPLETE INC INC AUTO&[place] [address] ZACK DIXON TROPONIN 6 [facility] QUANTITAT INC INC MARIBEL GLUC BLD 04656 ZACK DIXON GLUC MNTR 6 [facility] DEV INC [place] [address] ZACK DIXON TROPONIN 6 [facility] QUANTITAT INC INC MARIBEL GLUC BLD 84437 ZACK DIXON GLUC MNTR 6 [facility] DEV INC INC CLEARED FDA SPEC HOME USE ECG 72174 ZACK BARRETO JR ROUTINE 6 [facility] W/LEAST P 12 LDS I&R ONLY INITIAL 02210 MELISA MCLEAN OBSERV[address] TRACY ON INTERNAL CARE/DAY MED 30 MINUTES GROUND A0425 [facility] AM[place] [place] [address] ZACK DIXON INFUSION 6 [facility] THERAPY/P INC INC ROPHYLAXI S /DX 1ST TO 1 HR URNLS DIP 55300 ZACK DIXON 6 [facility] STICK/TAB INC INC LET REAGENT AUTO MICROSCOP Y THERAPEUT 80761 ZACK DIXON IC 6 [facility] INJECTION INC INC IV PUSH EACH NEW DRUG BLOOD 72178 ZACK DIXON COUNT 6 [facility] COMPLETE INC INC AUTO&AUTO DIFRNTL WBC COMPREHEN 30068 ZACKSHANDA DIXON SIVE 6 [facility] METABOLIC INC INC PANEL CREATINE 34616 ZACK DIXON KINASE MB 6 [facility] FRACTION INC INC ONLY INJECTION J2405 ZACK ZACK 6 [facility] ONDANSETR INC INC ON HCL PER 1 [facility] G0378 ZACK ZACK OBSERVATI 6 [facility] ON INC INC SERVICE PER HOUR COLLECTIO 18475 ZACK DIXON N VENOUS 6 [facility] BLOOD INC INC VENIPUNCT URE RADIOLOGI 91405 ZACK ZACK C 6 [facility] EXAMINATI INC [place] [address] ZACK DIXON HEAD/BRAI 6 [facility] N W/O INC INC CONTRAST MATERIAL AMB A0427 [facility] SERVICE 6 AMBULANCE AMBULANCE ALS SERVICE SERVICE EMERGENCY TRANSPORT LEVEL 1 CREATINE 56292 ZACK DIXON KINASE 6 [facility] [place] [address] ZACK DIXON LIPASE 6 [facility] INC INC ECG 24650 ZACK DIXON ROUTINE 6 [facility] ECG INC INC W/LEAST 12 LDS TRCG ONLY W/O I&R BASIC 77981 COMBINED COMBINED METABOLIC 6 PHYSICIAN PHYSICIAN PANEL [place] [address] COMBINED COMBINED BLOOD/URI 6 PHYSICIAN [place]IC[place] [address] COMBINED COMBINED MAGNESIUM 6 PHYSICIAN PHYSICIAN S LA S LA CYANOCOBA 03592 COMBINED COMBINED SOHA 6 PHYSICIAN PHYSICIAN VITAMIN S [place] S LA B-12 [place] [address] COMBINED COMBINED PHOSPHORU 6 PHYSICIAN PHYSIC[place] [address] COMBINED COMBINED THYROID 6 PHYSICIAN PHYSICIAN STIMULATI S LA S LA NG HORMONE TSH ALBUMIN 69848 COMBINED COMBINED SERUM 6 PHYSICIAN PHYSICIAN PLASMA/WH S LA S LA OLE BLOOD BLOOD 78435 COMBINED COMBINED COUNT 6 PHYSICIAN PHYSICIAN COMPLETE S LA S LA AUTO&AUTO DIFRNTL WBC STANDARD K0001 REID LOMAS 6 HOME HOME R MEDICAL MEDICAL EQUIPME EQUIPME HOS BED E0260 REID MATHEWS SEMI-ELEC 6 HOME HOME W/ANY MEDICAL MEDICAL TYPE SIDE EQUIPME EQUIPME RAIL W/MATTRSS PHYS G0179 [facility] RE-CERT 6 [facility] MCR-COVR INTERNAL [facility] SRVC RE-CERT PRD COMPREHEN 23308 ZACK ZACK SIVE 6 [facility] METABOLIC INC INC PANEL GLUC BLD 63583 ZACK DIXON GLUC MNTR 6 [facility] DEV INC INC CLEARED FDA SPEC HOME USE BLOOD 38634 ZACK ZACK COUNT 6 [facility] COMPLETE INC INC AUTO&AUTO DIFRNTL WBC URNLS DIP 02484 ZACK ZACK 6 [facility] STICK/TAB INC INC LET REAGENT AUTO MICROSCOP Y AMBULANCE A0429 [facility] SERVICE 6 AMBULANCE AMBULANCE BLS SERVICE SERVICE EMERGENCY TRANSPORT GROUND A0425 [facility] MILEAGE 6 AMBULANCE AMBULANCE PER SERVICE SERVICE STATUTE MILE SBSQ 95727 [facility] NURSING 6 [facility] INTERNAL CARE/DAY MED NEW PROBLEM 25 MIN SBSQ 64954 [facility] NURSING 6 [facility] INTERNAL CARE/DAY MEDI MINOR COMPLJ 15 MIN HOS BED E0260 REID MATHEWS SEMI-ELEC 6 HOME HOME W/ANY MEDICAL MEDICAL TYPE SIDE EQUIPME EQUIPME RAIL W/MATTRSS STANDARD K0001 REID LOMAS 6 HOME HOME R MEDICAL MEDICAL EQUIPME EQUIPME RADEX 92124 SYMPHONY SYMPHONY SPINE 6 MOBILEX MOBILEX THORACIC 2 VIEWS RADEX 36256 SYMPHONY SYMPHONY SPINE 6 MOBILEX MOBILEX CERVICAL 2 OR 3 VIEWS SBSQ 46019 [facility] N[facility]SING 6 [facility] INTERNAL CARE/DAY MED NEW PROBLEM 25 MIN STANDARD K0001 REID CHAUDHARII 5 HOME HOME R MEDICAL MEDICAL EQUIPME EQUIPME HOS BED E0260 REID MATHEWS SEMI-ELEC 5 HOME HOME W/ANY MEDICAL MEDICAL TYPE SIDE EQUIPME EQUIPME RAIL W/MATTRSS CULTURE 88476 ZACK DIXON BACTERIAL 5 [facility] INC INC QUANTTATI VE COLONY COUNT URINE AMB A0427 [facility] SERVICE 5 AMBULANCE AMBULANCE ALS SERVICE SERVICE EMERGENCY TRANSPORT LEVEL 1 COMPREHEN 96562 ZACK ELLIOTTON SIVE 5 [facility] METABOLIC INC INC PANEL GROUND A0425 [facility] MILEAGE 5 AMBULANCE AMBULANCE PER SERVICE SERVICE STATUTE MILE NATRIURET 06805 ZACK DIXON IC 5 [facility] PEPTIDE INC INC BLOOD 29857 ZACK ZACK COUNT 5 [facility] COMPLETE INC INC AUTO&AUTO DIFRNTL WBC SUSCEPTIB 10637 ZACK ELLIOTTON LTY STDY 5 [facility] ANTIMICRB INC INC IAL MICRO/AGA R DILUTJ URNLS DIP 19446 ZACK DIXON 5 [facility] STICK/TAB INC INC LET REAGENT AUTO MICROSCOP Y RADIOLOGI 06169 ZACK Lopez EXAM 5 [facility] CHEST 2 INC INC VIEWS FRONTAL&L ATERAL PRESSURIZ 95367 ZACK DIXON ED/NONPRE 5 [facility] SSURIZED INC INC INHALATIO N TREATMENT HOS BED E0260 REID MATHEWS SEMI-ELEC 5 HOME HOME W/ANY MEDICAL MEDICAL TYPE SIDE EQUIPME EQUIPME RAIL W/MATTRSS STANDARD K0001 REID DELGADILLOCHAI 5 HOME HOME R MEDICAL MEDICAL EQUIPME EQUIPME SBSQ 21891 [facility] 5 CULAR MAT CARE/DAY CONSULTAN 25 TS O MINUTES INITIAL 90460 [facility] 5 CULAR MAT CARE/DAY CONSULTAN 70 TS O MINUTES ECHO 16998 [facility] POSADAOR 5 MEDICAL JUAN J C R-T 2D SERV W/WO FOUNDATIO M-MODE N REC F-UP/LMTD RADIOLOGI 09986 LIZZ Lopez EXAM 5 MEDICAL MELIDA CHEST 2 IMAGING VIEWS ASS FRONTAL&L ATERAL HOS BED E0260 REID MATHEWS SEMI-ELEC 5 HOME HOME W/ANY MEDICAL MEDICAL TYPE SIDE EQUIPME EQUIPME RAIL W/MATTRSS STANDARD K0001 REID CHAUDHARII 5 HOME HOME R MEDICAL MEDICAL EQUIPME EQUIPME THERAPEUT 18855 ZACK DIXON IC PX 1/> 5 [facility] AREAS INC INC EACH 15 MIN EXERCISES NORMAL A4256 ARRIVA ARRIVA LOW AND 5 MEDICAL MEDICAL HIGH CALIBRATO R SOLUTION/ CHIPS LANCETS A4259 ARRIVA ARRIVA PER BOX 5 MEDICAL MEDICAL OF 100 BLD GLU A4253 ARRIVA ARRIVA TEST/REAG 5 MEDICAL MEDICAL T STRIPS HOME BLD GLU MON-50 URNLS DIP 03339 ZACK CALDERON 5 [facility] LET RGNT P NON-AUTO W/O MICRSCP THERAPEUT 43563 ZACK DIXON IC PX 1/> 5 [facility] AREAS INC INC EACH 15 MIN EXERCISES STANDARD K0001 REID REIDJOHN DELGADILLOCHAI 5 HOME HOME R MEDICAL MEDICAL EQUIPME EQUIPME HOS BED E0260 REID MATHEWS SEMI-ELEC 5 HOME HOME W/ANY MEDICAL MEDICAL TYPE SIDE EQUIPME EQUIPME RAIL W/MATTRSS THERAPEUT 57067 ZACK DIXON IC PX 1/> 5 [facility] AREAS INC INC EACH 15 MIN EXERCISES COLLECTIO 39683 ZACK DIXON N VENOUS 5 [facility] [place] [address] ZACK DIXON THYROID 5 [facility] STIMULATI INC INC NG HORMONE TSH 25 63016 ZACK DIXON HYDROXY 5 [facility] INCLUDES INC INC FRACTIONS IF PERFORMED THERAPEUT 92160 ZACK DIXON IC PX 1/> 5 [facility] AREAS INC INC EACH 15 MIN EXERCISES CULTURE 75066 ZACK DIXON BACTERIAL 5 [facility] INC INC QUANTTATI VE COLONY COUNT URINE CULTURE 19736 ZACK DIXON BCT 5 [facility] ISOL&PRSM INC INC PTV ID ISOLATE EA URINE RENAL 03014 ZACK DIXON FUNCTION 5 [facility] PANEL INC INC HEMOGLOBI 95196 ZACK DIXON N 5 [facility] GLYCOSYLA INC INC ALEX A1C BLOOD 10442 ZACKSHANDA ELLIOTTON COUNT 5 [facility] COMPLETE INC INC AUTO&AUTO DIFRNTL WBC SUSCEPTIB 40398 ZACK DIXON LTY STDY 5 [facility] ANTIMICRB INC INC IAL MICRO/AGA R DILUTJ URNLS DIP 93914 ZACK DIXON 5 [facility] STICK/TAB INC INC LET REAGENT AUTO MICROSCOP Y THERAPEUT 89125 ZACKSHANDA DIXON IC PX 1/> 5 [facility] AREAS INC INC EACH 15 MIN EXERCISES THERAPEUT 39647 ZACK DIXON IC PX 1/> 5 [facility] AREAS INC INC EACH 15 MIN EXERCISES THERAPEUT 55334 ZACK DIXON IC PX 1/> 5 [facility] AREAS INC INC EACH 15 MIN EXERCISES THERAPEUT 16957 ZACK DIXON IC PX 1/> 5 [facility] AREAS INC INC EACH 15 MIN EXERCISES PHYSICAL 08717 ZACK DIXON THERAPY 5 [facility] EVALUATIO INC INC N CATH CLCT P9612 ZACK CALDERON SPECIMEN 5 [facility] PT ALL P PLACES SERVICE URNLS DIP [address] [facility] LET RGNT P NON-AUTO W/O MICRSCP CULTURE 53633 ZACK DIXON BACTERIAL 5 [facility] INC INC QUANTTATI VE COLONY COUNT URINE CULTURE 10608 ZACK DIXON BCT 5 [facility] ISOL&PRSM INC INC PTV ID ISOLATE EA URINE SUSCEPTIB 98124 ZACK ZACK LTY STDY 5 [facility] ANTIMICRB INC INC IAL MICRO/AGA R DILUTJ COMMODE E0163 REID MATHEWS CHAIR 5 HOME HOME MOBILE OR MEDICAL MEDICAL EQUIPME EQUIPME STATIONAR Y W/FIXED ARMS STANDARD K0001 REID MATHEWS WHEELCHAI 5 HOME HOME R MEDICAL MEDICAL EQUIPME EQUIPME HOS BED E0260 REID MATHEWS SEMI-ELEC 5 HOME HOME W/ANY MEDICAL MEDICAL TYPE SIDE EQUIPME EQUIPME RAIL W/MATTRSS CULTURE 18534 ZACK DIXON BACTERIAL 5 [facility] INC INC QUANTTATI VE COLONY COUNT URINE CULTURE 86214 AZCK DIXON BCT 5 [facility] ISOL&PRSM INC INC PTV ID ISOLATE EA URINE ONELIA 79903 ZACK CALDERON POST-VOID 5 [facility] RESIDUAL P URINE&/BL ADDER CAP SUSCEPTIB 50200 ZACK DIXON LTY STDY 5 [facility] ANTIMICRB INC INC IAL MICRO/AGA R DILUTJ RADIOLOGI 77333 SYMPHONY SYMPHONY C 5 MOBILEX MOBILEX EXAMINATI ON CHEST SINGLE VIEW FRONTAL RADIOLOGI 67917 SYMPHONY SYMPHONY C 5 MOBILEX MOBILEX EXAMINATI ON CHEST SINGLE VIEW FRONTAL DEBRIDEME 45603 [facility] NT NAIL 5 ARE ANDREZ ANY METHOD 6/> INITIAL 28473 [facility] [place] NURSING 5 ARE ANDREZ FACILITY CARE/DAY 25 MINUTES SBSQ 83911 [facility] NURSING 5 [facility] INTERNAL CARE/DAY MED NEW PROBLEM 25 MIN BASIC 92971 COMBINED COMBINED METABOLIC 5 PHYSICIAN PHYSICIAN PANEL S LA S LA CALCIUM TOTAL BLOOD 23881 COMBINED COMBINED COUNT 5 PHYSICIAN PHYSICIAN COMPLETE S LA S [place] AUTO&[place] [address] [facility] A[facility] 5 MEDICAL KAY REAL IMAGING TIME ASS W/[place] [address] [place] [facility] ABDOMEN & 5 MEDICAL MELIDA PELVIS IMAGING W/O ASS CONTRAST MATERIAL RADIOLOGI 60092 [place] RODRIGUEZ ALL C 5 MEDICAL EXAMINATI IMAGING ON CHEST ASS SINGLE VIEW FRONTAL ECG 87521 ZACK KESHAWNARIADNA ROUTINE 5 [facility] W/LEAST P 12 LDS I&R ONLY CRITICAL 91571 ZACK DIXON CARE [address] [facility] [place] ED P P PATIENT INIT 30-74 MIN RADEX 51994 [facility] SPINE 5 MEDICAL KAY CERVICAL IMAGING 4 OR 5 ASS VIEWS RADEX 41284 [facility] MASTOIDS 5 MEDICAL KAY COMPL IMAGING MINIMUM 3 ASS VIEWS UT SIDE SPRING-PO A4258 ARRIVA ARRIVA WERED 5 MEDICAL TREASURY MANAGEMENT SALES CONSULTANT FOR LANCET 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 A4259 ARRIVA ARRIVA PER BOX 5 MEDICAL MEDICAL OF 100 NORMAL A4256 ARRIVA ARRIVA LOW AND 5 MEDICAL MEDICAL HIGH CALIBRATO R SOLUTION/ CHIPS BLD GLU A4253 ARRIVA ARRIVA TEST/REAG 5 MEDICAL MEDICAL T STRIPS HOME BLD GLU MON-50 COMPREHEN 99207 COMBINED COMBINED SIVE 5 PHYSICIAN PHYSICIAN METABOLIC S LA S LA PANEL COLLECTIO 02089 ZACK DIXON N VENOUS 5 [facility] BLOOD INC INC VENIPUNCT URE RENAL 17933 ZACK DIXON FUNCTION 5 [facility] PANEL INC INC INJECTION J0897 ZACK DIXON 5 [facility] DENOSUMAB INC INC 1 MG THERAPEUT 92304 ZACK DIXON IC 5 [facility] PROPHYLAC INC INC TIC/DX INJECTION SUBQ/IM COLLECTIO 48714 ZACK DIXON N VENOUS 4 [facility] BLOOD INC INC VENIPUNCT URE CREATININ 27173 ZACK DIXON E OTHER 4 [facility] SOURCE INC INC DXA BONE 61510 ZACK DIXON DENSITY 4 [facility] STUDY 1/> INC INC SITES AXIAL SKEL CULTURE 91133 ZACK DIXON BACTERIAL 4 [facility] INC INC QUANTTATI VE COLONY COUNT URINE CULTURE 42363 ZACK DIXON BCT 4 [facility] ISOL&PRSM INC INC PTV ID ISOLATE EA URINE 25 76660 ZACK DIXON HYDROXY 4 [facility] INCLUDES [place] [address] ZACK DIXON PARATHORM 4 [facility] ONE INC INC RENAL 41742 ZACK DIXON FUNCTION 4 [facility] PANEL INC INC PROTEIN 46134 ZACK DIXON XCPT 4 [facility] REFRACTOM INC INC ETRY SERUM PLASMA/WH L BLD BLOOD 43525 ZACK DIXON COUNT 4 [facility] COMPLETE INC INC AUTO&AUTO DIFRNTL WBC SUSCEPTIB 25758 ZACK DIXON LTY STDY 4 [facility] ANTIMICRB INC INC IAL MICRO/AGA R DILUTJ URNLS DIP 71201 ZACK DIXON 4 [facility] STICK/TAB INC INC LET REAGENT AUTO MICROSCOP Y COMPREHEN 96038 COMBINED COMBINED SIVE 4 PHYSICIAN PHYSICIAN METABOLIC S LA S LA PANEL CREATINE 06870 ZACK DIXON KINASE MB 4 [facility] FRACTION INC INC ONLY CREATINE 75298 ZACK DIXON KINASE 4 [facility] [place] [address] ZACK DIXON TROPONIN 4 [facility] QUANTITAT INC INC MARIBEL BLOOD 89409 ZACK DIXON COUNT 4 [facility] COMPLETE INC INC AUTO&AUTO DIFRNTL WBC URNLS DIP 78683 ZACK DIXON 4 [facility] STICK/TAB INC INC LET REAGENT AUTO MICROSCOP Y RADIOLOGI 50448 ZACK DIXON C EXAM 4 [facility] CHEST 2 INC INC VIEWS FRONTAL&L ATERAL PRESSURIZ 61566 ZACK DIXON ED/NONPRE 4 [facility] SSURIZED INC INC INHALATIO N TREATMENT COMPREHEN 02951 ZACK DIXON SIVE 4 [facility] METABOLIC INC INC PANEL COLLECTIO 08522 ZACK Yoo VENOUS 4 [facility] BLOOD INC INC VENIPUNCT URE RENAL 97470 ZACK DIXON FUNCTION 4 [facility] PANEL INC INC BLOOD 06562 ZACK DIXON COUNT 4 [facility] COMPLETE INC INC AUTO&AUTO DIFRNTL WBC 25 74633 ZACK DIXON HYDROXY 4 [facility] INCLUDES INC INC FRACTIONS IF PERFORMED THERAPEUT 83381 ZACK DIXON IC 4 [facility] PROPHYLAC INC INC TIC/DX INJECTION SUBQ/IM INJECTION J0897 ZACK DIXON 4 [facility] DENOSUMAB INC INC 1 MG BASIC 32520 COMBINED COMBINED METABOLIC 4 PHYSICIAN PHYSICIAN PANEL S LA S LA CALCIUM TOTAL COMPREHEN 41122 COMBINED COMBINED SIVE 4 PHYSICIAN PHYSICIAN METABOLIC S LA S LA PANEL COLLECTIO 49193 ZACK DIXON N VENOUS 4 [facility] BLOOD INC INC VENIPUNCT URE BASIC 48467 ZACK DIXON METABOLIC 4 [facility] PANEL INC INC CALCIUM TOTAL THERAPEUT 27350 ZACK DIXON IC 4 [facility] PROPHYLAC INC INC TIC/DX INJECTION SUBQ/IM INJECTION J0897 ZACK DIXON 4 [facility] DENOSUMAB INC INC 1 MG ARTHROCEN 27296 [facility] PETTEY TESIS 3 PHYSICIAN JAM ASPIR&/IN S GROUP J MAJOR JT/BURSA W/O US INJECTION 96065 [facility] 1 TENDON 3 PHYSICIAN PHYSICIAN S GROUP S GROUP SHEATH/LI GAMENT APONEUROS IS INJ J0702 [facility] PETTEY BETAMETHA 3 PHYSICIAN TONI SONE S GROUP ACETATE & PHOSPHATE 3 MG BASIC 47172 COMBINED COMBINED METABOLIC 3 PHYSICIAN PHYSICIAN PANEL S LA S LA CALCIUM TOTAL ALBUMIN 09615 ZACK DIXON URINE 3 [facility] MICROALBU INC INC MIN QUANTIATI VE 25 39125 ZACK DIXON HYDROXY 3 [facility] INCLUDES INC [place] [address] ZACK DIXON PARATHORM 3 [facility] ONE INC INC DXA BONE 95170 [place] [facility] 3 MEDICAL MELIDA STUDY 1/> IMAGING SITES ASS AXIAL SKEL COLLECTIO 04444 ZACK DIXON N VENOUS 3 [facility] BLOOD INC INC VENIPUNCT URE RENAL 08292 ZACK DIXON FUNCTION 3 [facility] PANEL INC INC BLOOD 65427 ZACK DIXON COUNT 3 [facility] COMPLETE INC INC AUTO&AUTO DIFRNTL WBC URNLS DIP 26769 ZACK DIXON 3 [facility] STICK/TAB INC INC LET REAGENT AUTO MICROSCOP Y RADIOLOGI 65784 [place] SH[facility]I C EXAM 3 MEDICAL MELIDA CHEST 2 IMAGING VIEWS [place] FRONTAL&[place] [address] ZACK DIXON STREPTOCO 3 [facility] CCUS INC INC GROUP A IAADI 75004 ZACK DIXON INFLUENZA 3 [facility] B VIRUS INC INC IAADI 08933 ZACK DIXON INFFLUENZ 3 [facility] A A VIRUS INC INC CUL BACT 92157 ZACK DIXON XCPT 3 [facility] URINE INC INC BLOOD/STO OL AEROBIC ISOL BASIC 29283 COMBINED COMBINED METABOLIC 3 PHYSICIAN PHYSICIAN PANEL [place] [address] COMBINED COMBINED BLOOD/URI 3 PHYSICIAN PHYSICIAN C ACID S LA S LA CREATINE 64204 ZACK DIXON KINASE 3 [facility] TOTAL INC INC FIBRIN 18751 ZACK DIXON DGRADJ 3 [facility] PRODUCTS INC INC D-DIMER QUAL/SEMI BARB TECHNETIU A9540 ZACK Flanagan TC-99M 3 [facility] MAA DX INC INC STDY DOSE UP TO 10 MCI THER 40271 ZACK DIXON PROPH/DX 3 [facility] NJX IV INC INC PUSH SINGLE/1S T SBST/DRUG ECG 36751 ZACK DIXON ROUTINE 3 [facility] ECG INC INC W/LEAST 12 LDS TRCG ONLY W/O I&R COMPREHEN 00382 ZACK DIXON SIVE 3 [facility] METABOLIC INC INC PANEL CREATINE 59136 ZACK DIXON KINASE MB 3 [facility] FRACTION INC INC ONLY TECHNETIU A9567 ZACK Flanagan TC-99M 3 [facility] PENTETATE INC INC DX AEROSOL TO 75 MCI ECG 67280 EMEKA LIRA ROUTINE 3 EMERGENCY ECG SERVICES W/LEAST 12 LDS I&R ONLY RHYTHM 61504 ZACK DIXON ECG 1-3 3 [facility] LEADS INC INC TRACING ONLY W/O I&[place] [address] ZACK DIXON TROPONIN 3 [facility] QUANTITAT INC INC MARIBEL BLOOD 22461 ZACK DIXON COUNT 3 [facility] COMPLETE INC INC AUTO&AUTO DIFRNTL WBC RADIOLOGI 14520 ZACK DIXON C EXAM 3 [facility] CHEST 2 INC INC VIEWS FRONTAL&L ATERAL PULMONARY 25949 ZACK DIXON [facility] VENTILATI INC INC ON & PERFUSION IMAGING RADIOLOGI 90260 ZACK DIXON C 3 [facility] EXAMINATI INC INC ON CHEST SINGLE VIEW FRONTAL COLLECTIO 48844 ZACK DIXON N VENOUS 3 [facility] BLOOD INC INC VENIPUNCT URE RENAL 66127 ZACK DIXON FUNCTION 3 [facility] PANEL INC INC BLOOD 15406 ZACK DIXON COUNT 3 [facility] COMPLETE INC INC AUTO&AUTO DIFRNTL WBC INJECTION J0897 ZACK DIXON 3 [facility] DENOSUMAB INC INC 1 MG THERAPEUT 55714 ZACK DIXON IC 3 [facility] PROPHYLAC INC INC TIC/DX INJECTION SUBQ/IM APPLICATI 43071 ZACK DIXON ON [facility] MODALITY INC INC 1/> AREAS HOT/COLD PACKS E-STIM G0283 ZACK DIXON 1/> AREAS 3 [facility] OTH THAN INC INC WND CARE PART TX PLAN APPL 43810 ZACK DIXON MODALITY 3 [facility] 1/> AREAS INC INC 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 90727 ZACK DIXON IC PX 1/> 3 [facility] AREAS INC INC EACH 15 MIN EXERCISES THERAPEUT 05924 ZACK DIXON IC PX 1/> 3 [facility] AREAS INC INC EACH 15 MIN EXERCISES APPL 91869 ZACK DIXON MODALITY 3 [facility] 1/> AREAS INC INC 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 G0283 ZACK DIXON 1/> AREAS 3 [facility] OTH THAN INC INC WND CARE PART TX PLAN APPLICATI 19514 ZACK DIXON ON 3 [facility] MODALITY INC INC 1/> AREAS HOT/COLD PACKS E-STIM G0283 ZACK DIXON 1/> AREAS 3 [facility] OTH THAN INC INC WND CARE PART TX PLAN APPLICATI 33782 ZACK DIXON ON 3 [facility] MODALITY INC INC 1/> AREAS HOT/COLD PACKS APPL 96223 ZACK ZACK MODALITY 3 [facility] 1/> AREAS INC INC 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 82968 ZACK DIXON IC PX 1/> 3 [facility] AREAS INC INC EACH 15 MIN EXERCISES THERAPEUT 68145 ZACK DIXON IC PX 1/> 3 [facility] AREAS INC INC EACH 15 MIN EXERCISES APPL 62258 ZACK DIXON MODALITY 3 [facility] 1/> AREAS INC INC IONTOPHOR ESIS EA 15 MIN APPLICATI 38837 ZACK ZACK ON 3 [facility] MODALITY INC INC 1/> AREAS HOT/COLD PACKS E-STIM G0283 ZACK DIXON 1/> AREAS 3 [facility] OTH THAN INC INC WND CARE PART TX PLAN E-STIM G0283 ZACK DIXON 1/> AREAS 3 [facility] OTH THAN INC INC WND CARE PART TX PLAN THERAPEUT 08173 ZACK DIXON IC PX 1/> 3 [facility] AREAS INC INC EACH 15 MIN EXERCISES THERAPEUT 13042 ZACK DIXON IC PX 1/> 3 [facility] AREAS INC INC EACH 15 MIN EXERCISES APPL 66965 ZACK DIXON MODALITY 3 [facility] 1/> AREAS INC INC 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 G0283 ZACK DIXON 1/> AREAS 3 [facility] OTH THAN INC INC WND CARE PART TX PLAN APPLICATI 37789 ZACK DIXON ON [facility] MODALITY INC INC 1/> AREAS HOT/COLD PACKS CULTURE 03378 COMBINED COMBINED BACTERIAL 3 PHYSICIAN PHYSICIAN S LA S [place] QUANTTAT[place] COLONY COUNT URINE APPLICATI 41961 [facility] MODALITY INC INC 1/> AREAS HOT/COLD PACKS E-STIM G0283 ZACK DIXON 1/> [facility]AS [facility] OTH THAN INC INC WND CARE PART TX PLAN APPL 89227 ZACK DIXON MODALITY 3 [facility]/> AREAS INC INC 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 87636 ZACK ZACK IC PX 1/> 3 [facility] AREAS INC INC EACH 15 MIN EXERCISES THERAPEUT 40950 ZACK ZACK IC PX 1/> 3 [facility] AREAS INC INC EACH 15 MIN EXERCISES THERAPEUT 69341 ZACK ZACK IC PX 1/> 3 [facility] AREAS INC INC EACH 15 MIN EXERCISES APPL 68682 ZACK DIXON MODALITY 3 [facility] 1/> AREAS INC INC 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 G0283 ZACK DIXON 1/> AREAS [facility] OTH THAN INC INC WND CARE PART TX PLAN APPL 60965 ZACK DIXON MODALITY 3 [facility] 1/> AREAS INC INC ULTRASOUN D EA 15 MIN E-STIM G0283 ZACK DIXON 1/> AREAS [facility] OTH THAN INC INC WND CARE PART TX PLAN APPLICATI 43987 [facility] DIXON ON 3 [facility] MODALITY INC INC 1/> AREAS HOT/COLD PACKS APPL 89563 ZACK DIXON MODALITY 3 [facility]/> AREAS INC INC 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 60846 ZACK DIXON IC PX 1/> 3 [facility] AREAS INC INC EACH 15 MIN EXERCISES THERAPEUT 54801 ZACK ZACK IC PX 1/> 3 [facility] AREAS INC INC EACH 15 MIN EXERCISES APPL 21981 ZACK DIXON MODALITY 3 [facility] 1/> AREAS INC INC IONTOPHOR ESIS EA 15 MIN APPLICATI 35993 ZACK DIXON ON 3 [facility] MODALITY INC INC 1/> AREAS HOT/COLD PACKS E-STIM G0283 ZACK DIXON 1/> AREAS 3 [facility] OTH THAN INC INC WND CARE PART TX PLAN E-STIM G0283 ZACK DIXON 1/> AREAS 3 [facility] OTH THAN INC INC WND CARE PART TX PLAN APPLICATI 60733 ZACK DIXON ON 3 [facility] MODALITY INC INC 1/> AREAS HOT/COLD PACKS APPL 23184 ZACK DIXON MODALITY 3 [facility]/> AREAS INC INC ULTRASOUN D EA 15 MIN APPL 22863 ZACK DIXON MODALITY 3 [facility]/> AREAS INC INC 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 29449 ZACK DIXON IC PX 1/> 3 [facility] AREAS INC INC EACH 15 MIN EXERCISES THERAPEUT 27192 ZACK DIXON IC PX 1/> 3 [facility] AREAS INC INC EACH 15 MIN EXERCISES APPL 57620 ZACK DIXON MODALITY 3 [facility] 1/> AREAS INC INC IONTOPHOR ESIS EA 15 MIN APPL 36871 ZACK DIXON MODALITY 3 [facility] 1/> AREAS INC INC ULTRASOUN D EA 15 MIN E-STIM G0283 ZACK DIXON 1/> AREAS 3 [facility] OTH THAN INC INC WND CARE PART TX PLAN E-STIM G0283 ZACK DIXON 1/> AREAS 3 [facility] OTH THAN INC INC WND CARE PART TX PLAN RENAL 11711 ZACK DIXON FUNCTION 3 [facility] PANEL INC INC BLOOD 57407 ZACK ZACK COUNT 3 [facility] COMPLETE INC INC AUTO&AUTO DIFRNTL WBC SUSCEPTIB 88136 ZACK DIXON LTY STDY 3 [facility] ANTIMICRB INC INC IAL MICRO/AGA R DILUTJ URNLS DIP 37760 [facility] DIXON 3 [facility] STICK/TAB INC INC LET REAGENT AUTO MICROSCOP Y APPL 77463 ZACK DIXON MODALITY 3 [facility] 1/> AREAS INC INC ULTRASOUN D EA 15 MIN CULTURE 91277 ZACK DIXON BACTERIAL 3 [facility] INC INC QUANTTATI VE COLONY COUNT URINE CULTURE 73057 ZACK DIXON BCT 3 [facility] ISOL&PRSM INC INC PTV ID ISOLATE EA URINE THERAPEUT 52650 ZACK DIXON IC PX 1/> 3 [facility] AREAS INC INC EACH 15 MIN EXERCISES 25 93369 ZACK DIXON HYDROXY 3 [facility] INCLUDES INC [place] [address] ZACK DIXON PARATHORM 3 [facility] ONE INC INC PROTEIN 03355 ZACK DIXON ELECTROPH 3 [facility] ORETIC INC INC FRACTJ&QU ANTJ SERUM APPL 88314 ZACK DIXON MODALITY 3 [facility]/> AREAS INC INC IONTOPHOR ESIS EA 15 MIN COLLECTIO 40874 ZACK DIXON N VENOUS 3 [facility] [place] [address] ZACK DIXON NEPHELOME 3 [facility] TRY EACH INC INC ANALYTE YANELY APPL 11721 ZACK DIXON MODALITY 3 [facility] 1/> AREAS INC INC 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 81393 ZACK DIXON IC PX 1/> 3 [facility] AREAS INC INC EACH 15 MIN EXERCISES APPLICATI 15339 ZACK ZACK ON 3 [facility] MODALITY INC INC 1/> AREAS HOT/COLD PACKS E-STIM G0283 ZACK ZACK 1/> AREAS 3 [facility] OTH THAN INC INC WND CARE PART TX PLAN E-STIM G0283 ZACKSHANDA DIXON 1/> AREAS 3 [facility] OTH THAN INC INC WND CARE PART TX PLAN APPLICATI 07349 ZACK DIXON ON 3 [facility] MODALITY INC INC 1/> AREAS HOT/COLD PACKS APPL 13483 ZACK ZACK MODALITY 3 [facility] 1/> AREAS INC INC ULTRASOUN D EA 15 MIN THERAPEUT 45579 ZACK ZACK IC PX 1/> 3 [facility] AREAS INC INC EACH 15 MIN EXERCISES APPL 67572 ZACK DIXON MODALITY 3 [facility] 1/> AREAS INC INC IONTOPHOR ESIS EA 15 MIN APPL 24502 ZACK DIXON MODALITY 3 [facility] 1/> AREAS INC INC 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 49778 ZACK DIXON IC PX 1/> 3 [facility] AREAS INC INC EACH 15 MIN EXERCISES APPL 94495 ZACK DIXON MODALITY 3 [facility] 1/> AREAS INC INC ULTRASOUN D EA 15 MIN E-STIM G0283 ZACK ZACK 1/> AREAS 3 [facility] OTH THAN INC INC WND CARE PART TX PLAN E-STIM G0283 ZACK ZACK 1/> AREAS 3 [facility] OTH THAN INC INC WND CARE PART TX PLAN APPL 96760 ZACK DIXON MODALITY 3 [facility] 1/> AREAS INC INC ULTRASOUN D EA 15 MIN APPLICATI 00873 ZACK DIXON ON 3 [facility] MODALITY INC INC 1/> AREAS HOT/COLD PACKS THERAPEUT 50531 ZACK DIXON IC PX 1/> 3 [facility] AREAS INC INC EACH 15 MIN EXERCISES APPL 45429 ZACK DIXNO MODALITY 3 [facility] 1/> AREAS INC INC IONTOPHOR ESIS EA 15 MIN APPL 48879 ZACK DIXON MODALITY 3 [facility] 1/> AREAS INC INC 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 93245 ZACK DIXON IC PX 1/> 3 [facility] AREAS INC INC EACH 15 MIN EXERCISES APPL 52761 ZACK DIXON MODALITY 3 [facility] 1/> AREAS INC INC ULTRASOUN D EA 15 MIN BASIC 44565 COMBINED COMBINED METABOLIC 3 PHYSICIAN PHYSICIAN PANEL S LA S LA CALCIUM TOTAL APPL 88673 ZACK DIXON MODALITY 3 [facility] 1/> AREAS INC INC ULTRASOUN D EA 15 MIN E-STIM G0283 ZACK DIXON 1/> AREAS 3 [facility] OTH THAN INC INC WND CARE PART TX PLAN THERAPEUT 75321 ZACK DIXON IC PX 1/> 3 [facility] AREAS INC INC EACH 15 MIN EXERCISES APPL 09205 ZACK DIXON MODALITY 3 [facility] 1/> AREAS INC INC 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 APPL 67153 ZACK DIXON MODALITY 3 [facility] 1/> AREAS INC INC 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 51786 ZACK DIXON IC PX 1/> 3 [facility] AREAS INC INC EACH 15 MIN EXERCISES E-STIM G0283 ZACK DIXON 1/> AREAS 3 [facility] OTH THAN INC INC WND CARE PART TX PLAN APPL 84844 ZACK DIXON MODALITY 3 [facility] 1/> AREAS INC INC ULTRASOUN D EA 15 MIN APPL 20774 ZACK DIXON MODALITY 3 [facility] 1/> AREAS INC INC ULTRASOUN D EA 15 MIN APPLICATI 56286 ZACK DIXON ON 3 [facility] MODALITY INC INC 1/> AREAS HOT/COLD PACKS E-STIM G0283 ZACK DIXON 1/> AREAS 3 [facility] OTH THAN INC INC WND CARE PART TX PLAN THERAPEUT 30310 ZACK DIXON IC PX 1/> 3 [facility] AREAS INC INC EACH 15 MIN EXERCISES THERAPEUT 48647 ZACK DIXON IC PX 1/> 3 [facility] AREAS INC INC EACH 15 MIN EXERCISES E-STIM G0283 ZACK DIXON 1/> AREAS 3 [facility] OTH THAN INC INC WND CARE PART TX PLAN APPL 92595 ZACK DIXON MODALITY 3 [facility] 1/> AREAS INC INC ULTRASOUN D EA 15 MIN E-STIM G0283 ZACK DIXON 1/> AREAS 3 [facility] OTH THAN INC INC WND CARE PART TX PLAN THERAPEUT 21380 ZACK DIXON IC PX 1/> 3 [facility] AREAS INC INC EACH 15 MIN EXERCISES APPL 02707 ZACK DIXON MODALITY 3 [facility] 1/> AREAS INC INC 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 80880 ZACK DIXON IC PX 1/> 3 [facility] AREAS INC INC EACH 15 MIN EXERCISES E-STIM G0283 ZACK DIXON 1/> AREAS 3 [facility] OTH THAN INC INC WND CARE PART TX PLAN APPLICATI 62023 ZACK DIXON ON 3 [facility] MODALITY INC INC 1/> AREAS HOT/COLD PACKS APPL 54041 ZACK DIXON MODALITY 3 [facility] 1/> AREAS INC INC ULTRASOUN D EA 15 MIN E-STIM G0283 ZACK DIXON 1/> AREAS 3 [facility] OTH THAN INC INC WND CARE PART TX PLAN APPL 11740 ZACK DIXON MODALITY 3 [facility] 1/> AREAS INC INC 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 54455 ZACK DIXON IC PX 1/> 3 [facility] AREAS INC INC EACH 15 MIN EXERCISES THERAPEUT 42688 ZACK DIXON IC PX 1/> 3 [facility] AREAS INC INC EACH 15 MIN EXERCISES APPL 40025 ZACK DIXON MODALITY 3 [facility] 1/> AREAS INC INC 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 G0283 ZACK DIXON 1/> AREAS 3 [facility] OTH THAN INC INC WND CARE PART TX PLAN APPLICATI 62569 ZACK DIXON ON 3 [facility] MODALITY INC INC 1/> AREAS HOT/COLD PACKS APPL 18120 ZACK DIXON MODALITY 3 [facility] 1/> AREAS INC INC ULTRASOUN D EA 15 MIN APPL 25439 ZACK DIXON MODALITY 3 [facility] 1/> AREAS INC INC ULTRASOUN D EA 15 MIN APPLICATI 27279 ZACK DIXON ON 3 [facility] MODALITY INC INC 1/> AREAS HOT/COLD PACKS E-STIM G0283 ZACK DIXON 1/> AREAS 3 [facility] OTH THAN INC INC WND CARE PART TX PLAN APPL 86230 ZACK DIXON MODALITY 3 [facility] 1/> AREAS INC INC 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 06835 ZACK DIXON IC PX 1/> 3 [facility] AREAS INC INC EACH 15 MIN EXERCISES APPL 59175 ZACK DIXON MODALITY 3 [facility] 1/> AREAS INC INC 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 G0283 ZACK DIXON 1/> AREAS 3 [facility] OTH THAN INC INC WND CARE PART TX PLAN APPLICATI 00369 ZACK DIXON ON 3 [facility] MODALITY INC INC 1/> AREAS HOT/COLD PACKS APPL 84346 ZACK DIXON MODALITY 3 [facility] 1/> AREAS INC INC ULTRASOUN D EA 15 MIN APPL 02750 ZACK DIXON MODALITY 3 [facility] 1/> AREAS INC INC ULTRASOUN D EA 15 MIN APPLICATI 95700 ZACK DIXON ON 3 [facility] MODALITY INC INC 1/> AREAS HOT/COLD PACKS E-STIM G0283 ZACK DIXON 1/> AREAS 3 [facility] OTH THAN INC INC WND CARE PART TX PLAN APPL 83073 ZACK DIXON MODALITY 3 [facility] 1/> AREAS INC INC 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 46526 ZACK DIXON IC PX 1/> 3 [facility] AREAS INC INC EACH 15 MIN EXERCISES THERAPEUT 08247 ZACK DIXON IC PX 1/> 3 [facility] AREAS INC INC EACH 15 MIN EXERCISES APPL 60184 ZACK DIXON MODALITY 3 [facility] 1/> AREAS INC INC IONTOPHOR ESIS EA 15 MIN PHYSICAL 39861 ZACK ZACK THERAPY 3 [facility] EVALUATIO INC INC N APPL 84116 ZACK ZACK MODALITY 3 [facility] 1/> AREAS INC INC ULTRASOUN D EA 15 MIN APPLICATI 96274 ZACK DIXON ON 3 [facility] MODALITY INC INC 1/> AREAS HOT/COLD PACKS RADEX HIP 32206 [place] [facility] 3 MEDICAL MELIDA UNILATERA IMAGING L ASS COMPLETE MINIMUM 2 VIEWS BASIC 75403 COMBINED COMBINED METABOLIC 3 PHYSICIAN PHYSICIAN [place] [address] COMBINED COMBINED BLOOD/URI 3 PHYSICIAN PHYSICIAN C ACID S LA S LA BASIC 66158 ZACK DIXON METABOLIC 2 [facility] PANEL INC INC CALCIUM TOTAL GLUC BLD 65491 ZACK DIXON GLUC MNTR 2 [facility] DEV INC INC CLEARED FDA SPEC HOME USE BLOOD 08027 ZACK DIXON COUNT 2 [facility] COMPLETE INC INC AUTO&AUTO DIFRNTL [facility] G0378 ZACK DIXON OBSERVATI 2 [facility] ON INC INC SERVICE PER HOUR COLLECTIO 04231 ZACK DIXON N VENOUS 2 [facility] BLOOD INC INC VENIPUNCT URE COLLECTIO 51656 ZACK DIXON N VENOUS 2 [facility] BLOOD INC INC VENIPUNCT URE CREATINE 13864 ZACK DIXON KINASE MB 2 [facility] FRACTION INC INC ONLY TECHNETIU A9567 ZACK DIXON M TC-99M 2 [facility] PENTETATE INC INC DX AEROSOL TO 75 [facility] G0378 ZACK DIXON OBSERVATI 2 [facility] ON INC INC SERVICE PER HOUR CREATINE 53084 ZACK DIXON KINASE 2 [facility] TOTAL INC INC TECHNETIU A9540 ZACK DIXON M TC-99M 2 [facility] MAA DX INC INC STDY DOSE UP TO 10 MCI BLOOD 67867 ZACK DIXON COUNT 2 [facility] COMPLETE INC INC AUTO&AUTO DIFRNTL WBC NONINVASI 50290 ZACK DIXON VE 2 [facility] EAR/PULSE INC INC OXIMETRY SINGLE DETER ECHO 15250 [facility] T[facility] R-T 2 DINA MORA 2D CARDIOLOG W/WOM-MOD Y CLINIC E COMPL SPEC&COLR D PULMONARY 41134 [place] 2 MEDICAL MELIDA VENTILATI IMAGING ON & [place] [address] ZACK DIXON TROPONIN 2 [facility] QUANTITAT INC INC MARIBEL GLUC BLD 05363 AZCK DIXON GLUC MNTR 2 [facility] DEV INC INC CLEARED FDA SPEC HOME USE BASIC 35401 ZACK DIXON METABOLIC 2 [facility] PANEL INC INC CALCIUM TOTAL BASIC 03363 ZACK DIXON METABOLIC 2 [facility] [place] [address] ZACK DIXON TROPONIN 2 [facility] QUANTITAT INC INC MARIBEL NATRIURET 49108 ZACK DIXON IC 2 [facility] PEPTIDE INC INC GLUC BLD 32342 ZACK DIXON GLUC MNTR 2 [facility] DEV INC INC CLEARED FDA SPEC HOME USE RADIOLOGI 27303 [place] C EXAM 2 MEDICAL MELIDA CHEST 2 IMAGING VIEWS ASS FRONTAL&L ATERAL CULTURE 39782 ZACK DIXON BACTERIAL 2 [facility] BLOOD INC INC AEROBIC W/ID ISOLATES URNLS DIP 02241 ZACK DIXON 2 [facility] STICK/TAB INC INC LET REAGENT AUTO MICROSCOP Y BLOOD 58895 ZACK DIXON COUNT 2 [facility] COMPLETE INC INC AUTO&AUTO DIFRNTL WBC THERAPEUT 24794 ZACK ZACK IC 2 [facility] PROPHYLAC INC INC TIC/DX INJECTION SUBQ/IM ECG 21443 ZACK DIXON ROUTINE 2 [facility] ECG INC INC W/LEAST 12 LDS TRCG ONLY W/O I&R FIBRIN 62693 ZACK DIXON DGRADJ 2 [facility] PRODUCTS INC INC D-DIMER QUAL/SEMI BARB CREATINE 09277 ZACK DIXON KINASE 2 [facility] TOTAL INC INC HOSPITAL G0378 ZACK DIXON OBSERVATI 2 [facility] ON INC INC SERVICE PER HOUR CREATINE 49593 ZACK DIXON KINASE MB 2 [facility] FRACTION INC INC ONLY ECG 10184 ZACK MCLEAN ROUTINE 2 [facility] W/LEAST P 12 LDS I&R ONLY COLLECTIO 89172 ZACK DIXON N VENOUS 2 [facility] BLOOD INC INC VENIPUNCT URE BLOOD 90037 ZACK DIXON COUNT 2 [facility] COMPLETE INC INC AUTO&AUTO DIFRNTL WBC BASIC 26069 ZACK DIXON METABOLIC 2 [facility] PANEL INC INC CALCIUM TOTAL INJECTION J0897 ZACK DIXON 2 [facility] DENOSUMAB INC INC 1 MG THERAPEUT 66910 ZACK DIXON IC 2 [facility] PROPHYLAC INC INC TIC/DX INJECTION SUBQ/IM 25 63985 ZACK DIXON HYDROXY 2 [facility] INCLUDES INC [place] [address] ZACK DIXON PARATHORM 2 [facility] ONE INC INC COLLECTIO 51773 ZACK DIXON N VENOUS 2 [facility] BLOOD INC INC VENIPUNCT URE CREATININ 93764 ZACK DIXON E OTHER 2 [facility] SOURCE INC INC DXA BONE 44534 [facility] STUDY 1/> IMAGING SITES ASS AXIAL SKEL RENAL 76659 ZACK DIXON FUNCTION 2 [facility] PANEL INC INC PROTEIN 57212 ZACK DIXON XCPT 2 [facility] REFRACTOM INC INC ETRY SERUM PLASMA/WH L BLD BLOOD 86396 ZACK DIXON COUNT 2 [facility] COMPLETE INC INC AUTO&AUTO DIFRNTL WBC URNLS DIP 13297 ZACK DIXON 2 [facility] STICK/TAB INC INC LET REAGENT AUTO MICROSCOP Y CONTINUOU E0601 REID REID S 2 HOME HOME POSITIVE MEDICAL MEDICAL AIRWAY EQUIPME EQUIPME PRESSURE DEVICE CONTINUOU E0601 REID REID S 2 HOME HOME POSITIVE MEDICAL MEDICAL AIRWAY EQUIPME EQUIPME PRESSURE DEVICE FILTER [id number] REID REID DISPBL 2 HOME HOME USED MEDICAL MEDICAL W/POS EQUIPME EQUIPME ARWAY PRESSURE DEVICE FILTER [id number] REID GLASSRELL NON 2 HOME HOME DISPBL MEDICAL MEDICAL USED EQUIPME EQUIPME W/POS ARWAY PRESS DEVICE HEADGEAR A7035 REID MATHEWS USED 2 HOME HOME W/POSITIV MEDICAL MEDICAL E AIRWAY EQUIPME EQUIPME PRESSURE DEVICE NASL A7034 REID MATHEWS INTRFCE 2 HOME HOME POS ARWAY MEDICAL MEDICAL PRSS EQUIPME EQUIPME DEVC W/WO HEAD STRAP TUBING A7037 REID MATHEWS USED WITH 2 HOME HOME POSITIVE MEDICAL MEDICAL AIRWAY EQUIPME EQUIPME PRESSURE DEVICE HUMDIFIR E0562 REID MATHEWS HEATED 2 HOME HOME USED MEDICAL MEDICAL W/POS EQUIPME EQUIPME ARWAY PRESSURE DEVICE MYOCARDIA 37[address] [facility] L SPECT 2 DINA MORA MULTIPLE CARDIOLOG STUDIES Y CLINIC CV STRS 48869 ZACK ZAPATA TST 2 [facility] XERS&/OR HOSPITAL RX CONT P ECG I&R ONLY CV STRS 37107 [facility] TST 2 PHYSICIAN XERS&/OR S GROUP RX CONT ECG W/O I&R POLYSOM 38532 ZACK DIXON 6/>YRS 2 [facility] SLEEP INC INC W/CPAP 4/> ADDL HARSHIL ATTND SUSCEPTIB 40226 ZACK DIXON LTY STDY 2 [facility] ANTIMICRB INC INC IAL MICRO/AGA R DILUTJ CULTURE 29544 ZACK DIXON BACTERIAL 2 [facility] INC INC QUANTTATI VE COLONY COUNT URINE CULTURE 39828 ZACK DIXON BCT 2 [facility] ISOL&PRSM INC INC PTV ID ISOLATE EA URINE PROTEIN 55272 ZACK DIXON XCPT 2 [facility] REFRACTOM INC INC ETRY SERUM PLASMA/WH L BLD BLOOD 89074 ZACK DIXON COUNT 2 [facility] COMPLETE INC INC AUTO&AUTO DIFRNTL WBC URNLS DIP 87608 ZACK DIXON 2 [facility] STICK/TAB INC INC LET REAGENT AUTO MICROSCOP Y RENAL 49769 ZACK DIXON FUNCTION 2 [facility] PANEL INC INC 25 89185 ZACK DIXON HYDROXY 2 [facility] INCLUDES INC [place] [address] ZACK DIXON PARATHORM 2 [facility] ONE INC INC COLLECTIO 82219 ZACK DIXON N VENOUS 2 [facility] BLOOD INC INC VENIPUNCT URE CREATININ 24576 ZACK DIXON E OTHER 2 [facility] SOURCE INC INC BLD GLU A4253 REID GLASSRELL TEST/REAG 2 HOME HOME T STRIPS MEDICAL MEDICAL HOME BLD EQUIPME EQUIPME GLU MON-50 LANCETS A4259 REID REID PER BOX 2 HOME HOME OF 100 MEDICAL MEDICAL EQUIPME EQUIPME POLYSOM 54162 ESTIVEN JEAN-BAPTISTE 6/>YRS 2 [facility]IGHT[facility] LEIGHTON SLEEP 4/> ADDL HARSHIL ATTND POLYSOM 74612 ZACK ELLIOTTON 6/>YRS 2 [facility] SLEEP 4/> [place] [address] ZACK DIXON TROPONIN 2 [facility] QUANTITAT INC INC MARIBEL BLOOD 68448 ZACK DIXON COUNT 2 [facility] COMPLETE INC INC AUTO&AUTO DIFRNTL WBC URNLS DIP 72695 ZACK DIXON 2 [facility] STICK/TAB INC INC LET REAGENT AUTO MICROSCOP Y ECG 00174 EMEKA SHIN ROUTINE 2 EMERGENCY III NANCY ECG SERVICES W/LEAST 12 LDS I&R ONLY BASIC 82472 ZACK DIXON METABOLIC 2 [facility] PANEL INC INC CALCIUM TOTAL RADIOLOGI 74416 ZACK DIXON C 2 [facility] EXAMINATI INC [place] [address] ZACK DIXON HEAD/BRAI 2 [facility] N W/O INC INC CONTRAST MATERIAL CREATINE 26585 ZACK DIXON KINASE MB 2 [facility] FRACTION INC INC ONLY RADEX 11173 LIZZ WADE SPINE 2 MEDICAL MELIDA LUMBOSACR IMAGING AL ASS MINIMUM 4 VIEWS CREATINE 66332 ZACK DIXON KINASE 2 [facility] TOTAL INC INC 3D 91677 ZACK DIXON RENDERING 2 [facility] W/INTERP INC INC & POSTPROCE SS SUPERVISI ON RADEX 01677 [facility] BRIANSHERI SPINE 2 MEDICAL MELIDA THORACIC IMAGING 3 VIEWS ASS ECG 05846 ZACK DIXON ROUTINE 2 [facility] ECG INC INC W/LEAST 12 LDS TRCG ONLY W/O I&R 25 47945 ZACK DIXON HYDROXY 2 [facility] INCLUDES INC [place] [address] ZACK DIXON FERRITIN 2 [place] [address] ZACK DIXON PARATHORM 2 [facility] [place] [address] ZACK DIXON PHOSPHORU 2 [facility] S INC INC INORGANIC CYANOCOBA 67140 Z[facility] SOHA 2 [facility] VITAMIN INC INC B-12 RADEX 00929 [facility] SPINE 2 [facility] CERVICAL INC INC 6 OR MORE VIEWS RADIOLOGI 54259 [facility] EX[facility] 2 [facility] SKULL IMAGING COMPLETE ASS MINIMUM 4 [place] [address] [facility] FOLIC 2 [facility] [place] [address] [facility] IRON 2 [facility] INC INC IRON 48480 [facility] BINDING 2 [facility] CAPACITY INC INC IRRIGAJ 97274 [facility] IMPLNTD 2 [facility] VENOUS INC INC ACCESS DRUG DELIVERY SYST BASIC 32566 [facility] METABOLIC 2 [facility] [place] [address] [facility] BLOOD/URI 2 [facility] C ACID INC INC GLUC BLD 03208 [facility] GLUC MNTR 2 [facility] DEV INC INC CLEARED FDA SPEC HOME USE BLOOD 02790 [facility] COUNT 2 [facility] COMPLETE INC INC AUTO&AUTO DIFRNTL WBC GLUC BLD 66013 [facility] GLUC MNTR 2 [facility] DEV INC INC CLEARED FDA SPEC HOME USE NONINVASI 78948 [facility] VE 2 [facility] EAR/PULSE INC INC OXIMETRY SINGLE DETER BASIC 57084 ZACK ZACK METABOLIC 2 [facility] PANEL INC INC [facility] G0378 [facility] OBSERVATI 2 [facility] ON INC INC SERVICE PER HOUR TECHNETIU A9567 ZACK DIXON M TC-99M 2 [facility] PENTETATE INC INC DX AEROSOL TO 75 [facility] G0378 ZACK ZACK OBSERVATI 2 [facility] ON INC INC SERVICE PER HOUR CREATINE 84320 ZACK DIXON KINASE MB 2 [facility] FRACTION INC INC ONLY ECG 79171 ZACK DIXON ROUTINE 2 [facility] ECG INC INC W/LEAST 12 LDS TRCG ONLY W/O I&R TECHNETIU A9540 ZACK Flanagan TC-99M 2 [facility] MAA DX INC INC STDY DOSE UP TO 10 [facility] CREATINE 95815 ZACK DIXON KINASE 2 [facility] TOTAL INC INC ECG 97083 ZACK MCLEAN ROUTINE 2 [facility] W/LEAST P 12 LDS I&R ONLY INITIAL 37506 [facility] 2 PHYSICIAN CARE/DAY S GROUP 50 MINUTES BLOOD 99888 ZACK DIXON COUNT 2 [facility] COMPLETE INC INC AUTO&AUTO DIFRNTL WBC BASIC 22099 ZACK DIXON METABOLIC 2 [facility] PANEL INC INC CALCIUM TOTAL GLUC BLD 31190 ZACK [facility]IXON GLUC MNTR 2 [facility] DEV INC INC CLEARED FDA SPEC HOME USE NONINVASI 12820 ZACK DIXON VE 2 [facility] EAR/PULSE INC INC OXIMETRY SINGLE DETER ECHO 26380 [facility] R-T 2 DINA MORA 2D CARDIOLOG W/WOM-MOD Y CLINIC E COMPL SPEC&COLR D RADIOLOGI 32241 LIZZ WADE C EXAM 2 [facility] CHEST 2 IMAGING VIEWS ASS FRONTAL&L ATERAL PULMONARY 59702 [facility] DI[facility]SH[facility]I 2 [facility] VENTILATI IMAGING ON & [place] [address] [facility] D[facility] TROPONIN 2 [facility] QUANTITAT INC INC MARIBEL ECG 75192 EMEKA WILCOX ROUTINE 2 [facility]ERG[facility] ECG SERVICES W/LEAST 12 LDS I&R ONLY BLOOD 17996 [facility] DIXON COUNT 2 [facility] COMPLETE INC INC AUTO&[place] [address] [facility]ACK [facility]IX[facility] TROPONIN 2 [facility] QUANTITAT INC INC MARIBEL NATRIURET 21329 [facility] D[facility] IC 2 [facility] PEPTIDE INC INC CULTURE 41049 [facility] BACTERIAL 2 [facility] BLOOD INC INC AEROBIC W/ID ISOLATES SUSCEPTIB 48141 [facility] DIX[facility] LTY STDY 2 [facility] ANTIMICRB INC INC IAL MICRO/AGA R DILUTJ URNLS DIP 59718 [facility] D[facility]ON [facility] STICK/TAB INC INC LET REAGENT AUTO MICROSCOP Y CULTURE 87954 ZACK DIXON BACTERIAL 2 [facility] INC INC QUANTTATI VE COLONY COUNT URINE CULTURE 59253 [facility] DIXON BCT 2 [facility] ISOL&PRSM INC INC PTV ID ISOLATE EA URINE CREATINE 94882 [facility] DIXON KINASE 2 [facility] TOTAL INC INC FIBRIN 00010 ZACK DIXON DGRADJ 2 [facility] PRODUCTS INC INC D-DIMER QUAL/SEMI BARB THERAPEUT 21451 [facility] DIXON IC 2 [facility] PROPHYLAC INC INC TIC/DX INJECTION SUBQ/IM ECG 16292 [facility] DIXON ROUTINE 2 [facility] ECG INC INC W/LEAST 12 LDS TRCG ONLY W/O I&R CREATINE 79288 ZACK DIXON KINASE MB 2 [facility] FRACTION INC INC ONLY COMPREHEN 40605 [facility] D[facility] SIVE 2 [facility] METABOLIC INC INC PANEL RADIOLOGI 11766 [place] Lopez 2 MEDICAL MELIDA EXAMINATI IMAGING ON CHEST ASS SINGLE VIEW FRONTAL HOME E0607 REID REID BLOOD 2 HOME HOME GLUCOSE MEDICAL MEDICAL MONITOR EQUIPME EQUIPME WALKER E0135 REID MATHEWS FOLDING 2 HOME HOME ADJUSTABL MEDICAL MEDICAL E OR EQUIPME EQUIPME FIXED HEIGHT BLD GLU A4253 REID MATHEWS TEST/REAG 2 HOME HOME T STRIPS MEDICAL MEDICAL HOME BLD EQUIPME EQUIPME GLU MON-50 LANCETS A4259 REID MATHEWS PER BOX 2 HOME HOME OF 100 MEDICAL MEDICAL EQUIPME EQUIPME RADIOLOGI 88085 [facility] C 2 MEDICAL MELIDA EXAMINATI IMAGING ON CHEST ASS SINGLE VIEW FRONTAL VENOUS 3893 ZACK DIXON CATHETERI 2 [facility] ZATION INC INC NOT ELSEWHERE CLASSIFIE D RADIOLOGI 80498 [place] C EXAM 2 MEDICAL MELIDA CHEST 2 IMAGING VIEWS ASS FRONTAL&L ATERAL COMPREHEN 52640 COMBINED COMBINED SIVE 2 PHYSICIAN PHYSICIAN METABOLIC S LA S LA PANEL COLLECTIO 88051 FAMILY ALYSSA N VENOUS 2 CARE CRI BLOOD ASSOCIATE VENIPUNCT S, PSC URE CYANOCOBA 86429 COMBINED COMBINED SOHA 2 PHYSICIAN PHYSICIAN VITAMIN S LA S LA B-12 SEDIMENTA 14914 COMBINED COMBINED TION RATE 2 PHYSICIAN PHYSICIAN RBC S LA S LA NON-AUTOM ATED RADIOLOGI 41438 [place] C 2 MEDICAL MELIDA EXAMINATI IMAGING ON KNEE 3 [place] [address] [facility] RETROPERI 2 MEDICAL MELIDA TONEAL IMAGING REAL TIME ASS W/IMAGE COMPLETE RADIOLOGI 35091 [facility] C EXAM 2 MEDICAL MELIDA CHEST 2 IMAGING VIEWS ASS FRONTAL&L ATERAL RHEUMATOI 20800 COMBINED COMBINED D FACTOR 2 PHYSICIAN PHYSICIAN [place] [address] COMBINED COMBINED BLOOD/URI 2 PHYSICIAN PHYSICIAN C ACID S LA S LA HANDLG&/O 22672 FAMILY STRAWZELL R CONVEY 2 CARE CRI OF SPEC ASSOCIATE FOR TR S, PSC OFFICE TO LAB ANTINUCLE 31198 LAB ZOEY LAB ZOEY AR 2 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 YUNG BLOOD 76351 FAMILY STRAWZELL COUNT 2 CARE CRI COMPLETE ASSOCIATE AUTO&AUTO S, PSC DIFRNTL WBC LIPID 15643 FAMILY STRAWZELL PANEL 2 CARE CRI ASSOCIATE S, PSC HEMOGLOBI 23114 FAMILY STRAWZELL N 2 CARE CRI GLYCOSYLA ASSOCIATE ALEX A1C S, PSC COLLECTIO 71234 FAMILY STRAWZELL N VENOUS 2 CARE CRI BLOOD ASSOCIATE VENIPUNCT S, PSC URE COMPREHEN 99444 COMBINED COMBINED SIVE 2 PHYSICIAN PHYSICIAN METABOLIC S LA S LA PANEL HANDLG&/O 00373 FAMILY STRAWZELL R CONVEY 2 CARE CRI OF SPEC ASSOCIATE FOR TR S, PSC OFFICE TO LAB 25 14557 COMBINED COMBINED HYDROXY 2 PHYSICIAN PHYSICIAN INCLUDES S LA [place] [address] COMBINED COMBINED THYROID 2 PHYSICIAN PHYSICIAN STIMULATI S LA S LA NG HORMONE TSH DUP-SCAN 32416 ZACK DIXON XTR VEINS 2 [facility] INC INC UNILATERA L/LIMITED STUDY RADIOLOGI 16591 [facility] EXAM 2 MEDICAL MELIDA CHEST 2 IMAGING VIEWS ASS FRONTAL&L ATERAL RENAL 31957 [facility]ACK DIXON FUNCTION 2 [facility] PANEL INC INC HEPATIC 04083 [facility]ACK DIXON FUNCTION 2 [facility] PANEL INC INC BLOOD 54297 ZACK DIXON COUNT 2 [facility] COMPLETE INC INC AUTO&AUTO DIFRNTL WBC URNLS DIP 51920 [facility] DIXON 2 [facility] STICK/TAB INC INC LET REAGENT AUTO MICROSCOP Y COLLECTIO 36198 ZACK DIXON N VENOUS 2 [facility] BLOOD INC INC VENIPUNCT URE DEBRIDEME 05518 PAWSAT PAWSAT NT NAIL 2 MAR MAR ANY METHOD 1-5 THERAPEUT 12500 ZACK DIXON IC 1 [facility] PROPHYLAC INC INC TIC/DX INJECTION SUBQ/IM BASIC 12738 ZACK DIXON METABOLIC 1 [facility] PANEL INC INC CALCIUM TOTAL COLLECTIO 25533 ZACK DIXON N VENOUS 1 [facility] BLOOD INC INC VENIPUNCT URE COLLECTIO 39711 Z[facility] DIXON N VENOUS 1 [facility] BLOOD INC INC VENIPUNCT URE BASIC 84873 ZACK DIXON METABOLIC 1 [facility] PANEL INC INC CALCIUM TOTAL THERAPEUT 85697 ZACK DIXON IC 1 [facility] PROPHYLAC INC INC TIC/DX INJECTION SUBQ/IM 25 99309 ZACK DIXON HYDROXY 1 [facility] INCLUDES INC [place] [address] ZACK DIXON PARATHORM 1 [facility] ONE INC INC PROTEIN 52275 ZACK DIXON ELECTROPH 1 [facility] ORETIC INC INC FRACTJ&QU ANTJ SERUM COLLECTIO 83693 ZACK DIXON N VENOUS 1 [facility] BLOOD INC INC VENIPUNCT URE CREATININ 36614 ZACK DIXON E OTHER 1 [facility] SOURCE INC INC RENAL 67008 ZACK DIXON FUNCTION 1 [facility] PANEL INC INC PROTEIN 54508 ZACK DIXON XCPT 1 [facility] REFRACTOM INC INC ETRY SERUM PLASMA/WH L BLD BLOOD 52040 ZACK DIXON COUNT 1 [facility] COMPLETE INC INC AUTO&AUTO DIFRNTL WBC URNLS DIP 02918 ZACK DIXON 1 [facility] STICK/TAB INC INC LET REAGENT AUTO MICROSCOP Y COLLECTIO 61070 ZACK DIXON N VENOUS 1 [facility] BLOOD INC INC VENIPUNCT URE BASIC 20077 ZACK DIXON METABOLIC 1 [facility] PANEL INC INC CALCIUM TOTAL INJECTION J1030 [facility] DNISOLONE PSC ACETATE 40 MG RADIOLOGI 04130 ZACK DIXON C EXAM 1 [facility] BOTH INC INC KNEES STANDING ANTEROPOS T ARTHROCEN 03500 [facility] TESIS [facility]IN CLIN[facility] J MAJOR PSC JT/BURSA W/O US DXA BONE 61629 ZACK DIXON DENSITY 1 [facility] STUDY 1/> [place] [address] ZACK DIXON RETROPERI 1 [facility] TONEAL INC INC REAL TIME W/IMAGE COMPLETE OPHTH 67036 ARYAN PETERS [facility] 1 VISION XM&EVAL COMPRHNSV ESTAB PT 1/> NON-INVAS 72743 [place] MARIBEL 1 MEDICAL MELIDA PHYSIOLOG IMAGING IC STUDY ASS EXTREMITY 3 LEVLS BASIC 56893 COMBINED COMBINED METABOLIC 1 PHYSICIAN PHYSICIAN PANEL S LA S LA CALCIUM TOTAL 25 45206 COMBINED COMBINED HYDROXY 1 PHYSICIAN PHYSICIAN INCLUDES S [place] [address] COMBINED COMBINED PARATHORM 1 PHYSICIAN [place] [address] COMBINED COMBINED PHOSPHORU 1 PHYSICIAN PHYSICIAN S S LA S LA INORGANIC BLD GLU A4253 REID MATHEWS TEST/REAG 1 HOME MED HOME MED T STRIPS EQUIP. L EQUIP. L HOME BLD GLU MON-50 LANCETS A4259 REID MATHEWS PER BOX 1 HOME MED HOME MED OF [address] [place] [address] [place] ABDOMEN 1 MEDICAL MELIDA W/O IMAGING CONTRAST ASS MATERIAL COLLECTIO 56334 ZACK DIXON N VENOUS 1 [facility] [place]LOOD [place] [address] ZACK DIXON UREA 1 [facility] NITROGEN INC INC QUANTITAT MARIBEL CREATININ 05379 ZACK DIXON E BLOOD 1 [facility] INC INC 3D 93704 [place] RENDERING 1 MEDICAL MELIDA IMAGING W/INTERP& ASS POSTPROC DIFF WORK STATION HEPATBL 37463 [place] DUX SYS 1 MEDICAL MELIDA IMG IMAGING GLBLDR ASS TECHNETIU A9537 ZACK Flanagan TC-99M 1 [facility] MEBROFENI INC INC N DX UP [place] [address] [place] [address] [place] ABDOMINAL 1 MEDICAL MELIDA REAL IMAGING TIME ASS W/IMAGE LIMITED COMPREHEN 28202 COMBINED COMBINED SIVE 1 PHYSICIAN PHYSICIAN METABOLIC S LA S LA PANEL COLLECTIO 73441 COMBINED COMBINED N VENOUS 1 PHYSICIAN PHYSICIAN BLOOD S LA S LA VENIPUNCT URE COLLECTIO 75309 FAMILY MULBERRY N VENOUS 1 CARE NILO BLOOD ASSOCIATE VENIPUNCT S URE COMPREHEN 80184 COMBINED COMBINED SIVE 1 PHYSICIAN PHYSICIAN [place] [address] COMBINED COMBINED AMYLASE 1 [place]YS[place] [address] COMBINED COMBINED THYROID 1 PHYSICIAN PHYSICIAN STIMULATI S LA S LA NG HORMONE TSH BLOOD 25755 FAMILY MULBERRY COUNT 1 CARE NILO COMPLETE ASSOCIATE AUTO&AUTO S DIFRNTL WBC HEMOGLOBI 71999 FAMILY FORDBERRY N 1 CARE NILO GLYCOSYLA [place]OC[place] [address] LAB ZOEY LAB ZOEY LIPASE 1 [employer]ING RADIOLOGI 26142 [place] Lopez EXAM 1 MEDICAL CARLOS CHEST 2 IMAGING VIEWS ASS FRONTAL&L ATERAL BASIC 64866 COMBINED COMBINED METABOLIC 1 PHYSICIAN PHYSICIAN PANEL S LA S LA CALCIUM TOTAL COLLECTIO 00650 BRENDAN J N VENOUS 1 CARE BLOOD [place] [address] ZACK DIXON STREPTOCO 0 [facility] CCUS INC INC GROUP A URNLS DIP 03075 [facility] DIXON 0 [facility] STICK/TAB INC INC LET REAGENT AUTO MICROSCOP Y RADIOLOGI 01901 ZACK DIXON C EXAM 0 [facility] CHEST 2 INC INC VIEWS FRONTAL&L ATERAL PRESSURIZ 41858 ZACK DIXON ED/NONPRE 0 [facility] SSURIZED INC INC INHALATIO N TREATMENT IAADI 69735 ZACK DIXON INFLUENZA 0 [facility] B VIRUS INC INC IAADI 94677 [facility] DIXON INFFLUENZ 0 [facility] A A VIRUS INC INC COMPREHEN 36358 COMBINED COMBINED SIVE 0 PHYSICIAN PHYSICIAN [place] [address] COMBINED COMBINED THYROID 0 PHYSICIAN PHYSICIAN STIMULATI S LA S LA NG HORMONE TSH COLLECTIO 73800 FAMILY FAMILY N VENOUS 0 CARE CARE BLOOD ASSOCIATE ASSOCIATE VENIPUNCT S S URE OPHTH 07815 [facility] MEDICAL 0 XM&EVAL COMPRHNSV ESTAB PT 1/> FUNDUS 51227 [facility] PHOTOGRAP 0 HY W/INTERPR ETATION & REPORT FOR DIAB A5513 WELLNESS WELLNESS ONLY MX 0 [facility] DNSITY SYSTEMS [employer] CSTM MOLD CSTM EA DIAB ONLY A5500 WELLNESS WELLNESS FIT CSTM 0 LIFE LIFE PREP&SPL SYSTEMS SYSTEMS SHOE [employer] LLC DNSITY INSRT RADIOLOGI 68807 [place] C 0 MEDICAL MELIDA EXAMINATI IMAGING ON ANKLE ASS 2 VIEWS WALKING L4360 [facility] 0 TECHNOLOG TECHNOLOG PNEUMATC IES INC IES INC &/ VACUUM PREFAB CUSTM FIT RADIOLOGI 29756 [place] C 0 MEDICAL MELIDA EXAMINATI IMAGING ON ANKLE ASS 2 VIEWS RADEX 93419 [place] FOOT 0 MEDICAL MELIDA COMPLETE IMAGING MINIMUM 3 ASS VIEWS RADIOLOGI 87932 [facility] ELLIOTTON C 0 [facility] EXAMINATI INC INC ON FO[place] 2 [place] [address] [facility] PETTEY 0 PHYSICIAN JAM CALCANEAL S GROUP FRACTURE W/O MANIPULAT ION RADIOLOGI 60263 [place] C 0 MEDICAL MELIDA EXAMINATI IMAGING ON TIBIA ASS & FIBULA 2 VIEWS RADEX 78652 [place] CALCANEUS 0 MEDICAL MELIDA MINIMUM IMAGING 2 VIEWS ASS RADIOLOGI 39882 [place] C 0 MEDICAL MELIDA EXAMINATI IMAGING ON PELVIS ASS 1/2 VIEWS RADEX 19717 [place] FOOT 0 MEDICAL MELIDA COMPLETE IMAGING MINIMUM 3 [place] [address] [facility] 0 EMERGENCY [facility] CALCANEAL SERVICES FRACTURE W/O MANIPULAT ION AMBULANCE A0429 [facility] SERVICE 0 AMBULANCE AMBULANCE BLS SERVICE SERVICE EMERGENCY TRANSPORT GROUND A0425 [facility] MILEAGE 0 AMBULANCE AMBULANCE PER SERVICE SERVICE STATUTE MILE HEMOGLOBI 49221 FAMILY MULBERRY N 0 CARE NILO GLYCOSYLA ASSOCIATE ALEX A1C S BLOOD 18370 FAMILY MULBERRY COUNT 0 CARE NILO COMPLETE ASSOCIATE AUTO&AUTO S DIFRNTL WBC PPSV23 34346 FAMILY VACCINE 2 0 CARE CARE YRS OR ASSOCIATE ASSOCIATE OLDER FOR S S SUBQ/IM USE ADMINISTR G0009 FAMILY LOGANBERRY ATION OF 0 CARE NILO PNEUMOCOC ASSOCIATE JORDYN S VACCINE COLLECTIO 76718 FAMILY MULBERRY N VENOUS 0 CARE NILO BLOOD ASSOCIATE VENIPUNCT S URE 25 33405 LAB ZOEY LAB ZOEY HYDROXY 0 AMERIC AMERIC INCLUDES HOLD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 IF PERFORMED GLUCOSE 16113 FAMILY LOGANBERRY POST 0 CARE NILO [place] [address] COMBINED COMBINED IRON 0 PHYSICIAN [place] [address] COMBINED COMBINED FOLIC 0 PHYSICIAN PHYSICIAN ACID S LAB S LAB SERUM COMPREHEN 71968 COMBINED COMBINED SIVE 0 PHYSICIAN PHYSICIAN METABOLIC S LAB S LAB PANEL LIPID 18276 COMBINED COMBINED PANEL 0 PHYSICIAN [place] [address] COMBINED COMBINED FERRITIN 0 PHYSICIAN PHYSICIAN S LAB S LAB CYANOCOBA 85029 COMBINED COMBINED SOHA 0 PHYSICIAN PHYSICIAN VITAMIN S LAB S LAB B-12 HEMOGLOBI 45036 FAMILY MULBERRY, N 0 CARE CLEO T GLYCOSYLA ASSOCIATE ALEX A1C S BLOOD 61706 FAMILY LOGANBERRY, COUNT 0 CARE CLEO T COMPLETE ASSOCIATE AUTO&AUTO S DIFRNTL WBC COLLECTIO 91392 FAMILY MULBERRY, N VENOUS 0 CARE CLEO T BLOOD ASSOCIATE VENIPUNCT S URE BASIC 97670 COMBINED COMBINED METABOLIC 0 PHYSICIAN PHYSICIAN PANEL S LAB S LAB CALCIUM TOTAL BLOOD 82100 FAMILY MULBERRY, COUNT 0 CARE CLEO T COMPLETE ASSOCIATE AUTO&AUTO S DIFRNTL WBC COLLECTIO 02707 FAMILY MULBERRY, N VENOUS 0 CARE CLEO T BLOOD ASSOCIATE VENIPUNCT S URE BLD GLU A4253 REID MATHEWS TEST/REAG 0 HOME MED HOME MED T STRIPS EQUIP. EQUIP. HOME BLD [facility] GLU [facility] [address] [facility], DISCHARGE 0 CARE CLEO T DAY ASSOCIATE MANAGEMEN S T > 30 MIN LANCETS A4259 REID REID PER BOX 0 HOME MED HOME MED OF 100 [facility] RADIOLOGI 56067 LIZZ John EPPS EXAM 0 MEDICAL XAVI Mcdonald CHEST 2 IMAGING VIEWS ASSOCIATE FRONTAL&L S ATERAL SBSQ 01695 [facility] 0 CARE CLEO T CARE/DAY ASSOCIATE 25 S MINUTES INTRO 03199 EMEKA WILCOX, NEEDLE/IN 0 EMERGENCY [facility] TRACATH SERVICES EXTREMITY ARTERY ASSOCIATE S ECG 19580 ZACK BARRETO, ROUTINE 0 [facility] W/LEAST PROF SERV 12 LDS I&R ONLY RADIOLOGI 28634 LIZZ John WADE EXAM 0 MEDICAL RAYMUNDO CHEST 2 IMAGING VIEWS ASSOCIATE FRONTAL&L S ATERAL INITIAL 50241 [facility] 0 CARE CLEO T CARE/DAY ASSOCIATE 50 S MINUTES ECHO 84762 [facility] [place], [place] R-T 0 PHYSICIAN MINNA Cop[place] GROUP W/WOM-MOD E COMPL SPEC&[place] [address] [facility] SHERI, PART VNTJ 0 MEDICAL RAYMUNDO IMG IMAGING AERSL ASSOCIATE 1/COMMERCIAL DECORATOR S PRJCJ AMB A0427 [facility] SERVICE 0 AMBULANCE AMBULANCE ALS SERVICE SERVICE EMERGENCY TRANSPORT LEVEL 1 GROUND A0425 [facility] MILEAGE 0 AMBULANCE AMBULANCE PER SERVICE SERVICE STATUTE MILE IAADIADOO 78878 [place] [address] CARE CLEO T STREPTOCO ASSOCIATE CCUS S GROUP A ORTHOPANT 88025 [facility] SHERI, OGRAM 0 MEDICAL RAYMUNDO IMAGING ASSOCIATE S RENAL 95595 ZACK DIXON FUNCTION 0 [facility] PANEL INC INC COLLECTIO 37500 ZACK DIXON N VENOUS 0 [facility] BLOOD INC INC VENIPUNCT URE LANCETS A4259 DIABETES DIABETES PER BOX 0 CARE CLUB [facility] OF 100 [facility] NORMAL A4256 DIABETES DIABETES LOW AND 0 CARE CLUB CARE CLUB HIGH [facility] CALIBRATO R SOLUTION/ CHIPS BLD GLU A4253 DIABETES DIABETES TEST/REAG 0 CARE CLUB CARE CLUB T [facility] HOME BLD GLU MON-50 COLLECTIO 13166 ZACK DIXON N VENOUS 9 [facility] BLOOD INC INC VENIPUNCT URE RENAL 02646 ZACK DIXON FUNCTION 9 [facility] PANEL INC INC ELECTRIC E0215 DIABETES DIABETES HEAT PAD 9 CARE CLUB CARE CLUB MOIST [facility] BLD GLU A4253 DIABETES DIABETES TEST/REAG 9 CARE CLUB CARE CLUB T STRIPS [facility] LLC HOME BLD GLU MON-50 NORMAL A4256 DIABETES DIABETES LOW AND 9 CARE CLUB CARE CLUB HIGH [facility] CALIBRATO R SOLUTION/ CHIPS LANCETS A4259 DIABETES DIABETES PER BOX 9 CARE CLUB CARE CLUB OF 100 [facility] [place] [address] ZACK ELLIOTTON RETROPERI 9 [facility] TONEAL INC INC REAL TIME W/IMAGE COMPLETE URNLS DIP 48014 [facility]ACK DIXON 9 [facility] STICK/TAB INC INC LET REAGENT AUTO MICROSCOP Y SUSCEPTIB 45811 ZACK DIXON LTY STDY 9 [facility] ANTIMICRB INC INC IAL MICRO/AGA R DILUTJ RENAL 99920 ZACK DIXON FUNCTION 9 [facility] PANEL INC INC COMPLEMEN 09374 ZACK DIXON T 9 [facility] FUNCTIONA INC INC L ACTIVITY EACH COMPONENT COLLECTIO 66591 ZACK ELLIOTTON N VENOUS 9 [facility] BLOOD INC INC VENIPUNCT URE CULTURE 46054 ZACK DIXON BCT 9 [facility] ISOL&PRSM INC INC PTV ID ISOLATE EA URINE CULTURE 37655 ZACK DIXON BACTERIAL 9 [facility] INC INC QUANTTATI VE COLONY COUNT URINE ANTINUCLE 22494 ZACK DIXON AR 9 [facility] [place] [address] ZACK DIXON BLOOD/URI 9 [facility] C ACID INC INC ANTISTREP 32169 ZACK DIXON TOLYSIN O 9 [facility] SCREEN INC INC BASIC 03154 ZACK DIXON METABOLIC 9 [facility] PANEL INC INC CALCIUM TOTAL COLLECTIO 07885 ZACK DIXON N VENOUS 9 [facility] BLOOD INC INC VENIPUNCT URE COLLECTIO 92003 ZACK DIXON N VENOUS 9 [facility] BLOOD INC INC VENIPUNCT URE COMPREHEN 21018 ZACK DIXON SIVE 9 [facility] [place] [address] ZACK DIXON THYROID 9 [facility] STIMULATI INC INC NG HORMONE TSH BLOOD 13788 ZACK DIXON COUNT 9 [facility] MEM [...] [employer] [facility] HOME BLD GLU MON-50 SPRING-PO A4258 DIABETES DIABETES WERED 9 CARE CLUB CARE CLUB DEVICE Reniac [facility] FOR LANC[facility] EACH REPL KIM A4235 DIABETES DIABETES LITHIUM 9 CARE CLUB CARE CLUB MED NECES [facility] [place] BG MON OWN PT EA OPHTH 68432 PETERS PETERS, MEDICAL 9 GEE A GEE A XM&EVAL COMPRHNSV ESTAB PT 1/> CREATININ 89610 FAMILY MULBERRY, E OTHER 9 CARE CLEO T SOURCE ASSOCIATE S COLLECTIO 56631 FAMILY MULBERRY, N VENOUS 9 CARE CLEO Rollins BLOOD ASSOCIATE VENIPUNCT S URE HEMOGLOBI 02502 COMBINED COMBINED N 9 PHYSICIAN PHYSICIAN GLYCOSYLA S LAB S LAB ALEX A1C ALBUMIN 40709 FAMILY MULBERRY, URINE 9 CARE CLEO T MICROALBU ASSOCIATE MIN S SEMIQUANT ITATIVE BLD GLU A4253 DIABETES DIABETES TEST/REAG 9 CARE CLUB CARE CLUB T [facility] HOME BLD GLU MON-50 NORMAL A4256 DIABETES DIABETES LOW AND 9 CARE CLUB CARE CLUB HIGH [facility] LLC CALIBRATO R SOLUTION/ CHIPS LANCETS A4259 DIABETES DIABETES PER BOX 9 CARE CLUB CARE CLUB OF 100 [facility] NORMAL A4256 DIABETES DIABETES LOW AND 8 CARE CLUB CARE CLUB HIGH [facility] LLC CALIBRATO R SOLUTION/ CHIPS LANCETS A4259 DIABETES DIABETES PER BOX 8 CARE CLUB CARE CLUB OF 100 LLC LLC BLD GLU A4253 DIABETES DIABETES TEST/REAG 8 CARE CLUB CARE CLUB T STRIPS [facility] HOME BLD GLU MON-50 THERAPEUT 55034 PROFESS[facility] CROSSFIEL ACTVITY 8 NAL REHAB D, DIRECT PT ASSOC DANNITA CONTACT PSC EACH 15 MIN MANUAL 08245 [facility] CROSS[facility]EL THERAPY 8 NAL REHAB D, TQS 1/> ASSOC DANNITA REGIONS PSC EACH 15 MINUTES THERAPEUT 02031 PROFESSIO CROSSFIEL IC PX 1/> 8 NAL REHAB D, AREAS ASSOC DANNITA EACH 15 PSC MIN EXERCISES CANE E0105 REID MATHEWS QUAD/3-UT 8 HOME MED HOME MED GABINO ALL EQUIP. EQUIP. MATL [facility] ADJUSTBL/ FIX W/TIPS PHYSICAL 51065 PROFESSIO CROSSFIEL THERAPY 8 NAL REHAB D, EVALUATIO ASSOC DANNITA N PSC THERAPEUT 87067 PROFESSIO CROSSFIEL IC PX 1/> 8 NAL REHAB D, AREAS ASSOC DANNITA EACH 15 PSC MIN EXERCISES MANUAL 18851 PROFESSIO CROSSFIEL THERAPY 8 NAL REHAB D, TQS 1/> ASSOC DANNITA REGIONS PSC EACH 15 MINUTES RADEX HIP 96763 ZACK DIXON 8 [facility] INC INC L COMPLETE MINIMUM 2 VIEWS RADEX 98358 [place] [facility], SPINE 8 MEDICAL XAVI P LUMBOSACR IMAGING AL ASSOCIATE MINIMUM 4 S VIEWS Encounters Encounter Start End Date Code Location Performer Type Date HOSPITAL ZACK - 7 7 [facility] EMERGENCY [id number] RUDY JOINER DEPT 7 7 PHYSICIAN VISIT S, [facility] HIGH SEVERITY& THREAT [facility] ZACK - 6 6 [facility]PATIEN INC T OFFICE 19720 [place] [facility] OUTPATIEN 6 6 MEDICAL T VISIT SERV 25 FOUNDATIO MINUTES HOSPITAL ZACK - 6 6 [facility] OUT[facility]IEN INC T EMERGENCY 08613 ZACK DEPT 6 6 [facility] VISIT INC HIGH SEVERITY& THREAT [facility] ZACK - OTHER 6 6 [facility] ZACK - OTHER 6 6 [facility] INC OFFICE 32359 [place] OUTPATIEN 6 6 MEDICAL T VISIT SERV 25 FOUNDATIO MINUTES N OFFICE 37605 [place] [facility] OUTPATIEN 6 6 [facility] T VISIT INTERNAL 15 MEDI MINUTES EMERGENCY 84129 [facility]UDY [facility] DEPT 6 6 PHYSICIAN VISIT S, PLLC HIGH SEVERITY& THREAT [facility] OFFICE 02001 [place] [facility] OUTPATIEN 6 6 [facility] T VISIT INTERNAL 15 MED MINUTES HOSPITAL ZACK - 6 6 [facility] OUTPATIEN INC T EMERGENCY 85701 ZACK 6 6 [facility] DEPARTMEN INC T VISIT HIGH/URGE NT SEVERITY EMERGENCY 91366 ZACK 6 6 [facility] DEPARTMEN INC T VISIT MODERATE SEVERITY EMERGENCY 92025 RUDY WILCOX 6 6 [facility] T VISIT HIGH/URGE NT SEVERITY HOSPITAL ZACK - 6 6 [facility] OUTPATIEN INC T [facility] INPAT[facility] 6 6 [facility] 6 6 [facility] ZACK - 5 5 [facility] OUTPATIEN INC T EMERGENCY 39222 ZACK 5 5 [facility] DEPARTMEN INC T VISIT LOW/MODER SEVERITY [facility] INPATIENT 5 5 [facility] 5 5 [facility] ZACK - 5 5 [facility] INPATIENT INC OFFICE 20591 ZACK CAL[facility]ON OUTPATIEN 5 5 [facility] T VISIT 5 HOSPITAL MINUTES HOSPITAL ZACK - 5 5 [facility] OUTPATIEN INC T EMERGENCY 73370 ZACK 5 5 [facility] DEPARTMEN INC T VISIT LIMITED/M INOR PROB OFFICE 72012 ZACK CALDERON OUTPATIEN 5 5 [facility] T VISIT HOSPITAL 10 P MINUTES OFFICE 98656 CAMERON GORDILLO OUTPATIEN 5 5 MEDICAL T VISIT SERV 25 FOUNDATIO MINUTES [facility] ZACK - 5 5 [facility] OUTPATIEN INC [facility]OSPITAL ZACK - 5 5 [facility] OUTPATIEN INC T OFFICE 16268 [place] [facility] OUTPATIEN 5 5 [facility] VISIT INTERNAL 25 MEDI MINUTES OFFICE 88656 ZACK CALDERON OUTPATIEN 5 5 [facility] T VISIT HOSPITAL 15 P MINUTES HOSPITAL ZACK - 5 5 [facility] OUTPATIEN [facility] ZACK - OTHER 5 5 [facility] INC OFFICE 56022 ZACK CALDERON OUTPATIEN 5 5 [facility] T VISIT HOSPITAL [address] [facility] INPATIENT 5 5 [facility] OFFICE 41137 CAMERON GORDILLO OUTPATIEN 5 5 MEDICAL T [facility]ISIT SERV 25 FOUNDATIO [address] [facility] INPATIENT 5 5 [facility] 5 5 [facility] 5 5 [facility] ZACK - 5 5 [facility] INPATIENT [facility] EMERGENCY 70506 ZACK Dawn 5 5 [facility] T VISIT P LOW/MODER [facility]VERITY [facility] ZACK - 5 5 [facility] ZACK [facility] 5 5 [facility]PATIEN [facility] OFFICE [id number] CAMERON GORDILLO OUTPATIEN 4 4 MEDICAL T VISIT SERV 25 FOUNDATIO MINUTES [facility] ZACK - 4 4 [facility] EMERGENCY 06935 [facility] DEPT 4 4 ERIC IMT VISIT EMERGENCY HIGH PHYS SEVERITY& THREAT FUN EMERGENCY 85922 ZACK 4 4 [facility] T VISIT MODERATE SEVERITY [facility] ZACK - 4 4 [facility]EN [facility] ZACK [facility] OTHER 4 4 [facility] OFFICE [address] [place] ERIBERTO GORDILLO OUTPATIEN 4 4 MEDICAL T VISIT SERV 25 FOUNDATIO [facility] ZACK - 4 4 [facility]EN [facility] ZACK [facility] OTHER 4 4 [facility] ZACK - 4 4 [facility] OUTPATIEN [facility] OFFICE 07264 CAMERON GORDILLO OUTPATIEN 3 3 MEDICAL T VISIT SERV 25 FOUNDATIO MINUTES OFFICE 79184 [facility] PETTEAg OUTONESIMO 3 3 PHYSICIAN JAM T VISIT S GROUP 15 MINUTES [facility] ZACK - 3 3 [facility] OUT[facility] Emergency RIP Shin (ER) 3 08:47 3 09:14 [facility] ZACK - 3 3 [facility] OUT[facility]EN [facility] EMERGENCY 50474 ZACK 3 3 [facility] VISIT LIMITED/M INOR PROB EMERGENCY 74229 EMEKA SHIN 3 3 EMERGENCY III [facility] T VISIT HIGH/URGE NT SEVERITY Emergency RIP Shields MD (ER) 3 07:59 3 14:30 [facility] EMERGENCY 00769 ZACK 3 3 [facility] T VISIT HIGH/URGE NT SEVERITY EMERGENCY 35046 EMEKA LIRA DEPT 3 3 EMERGENCY VISIT SERVICES HIGH SEVERITY& THREAT [facility] ZACK - 3 3 [facility] ZACK [facility] 3 3 [facility] ZACK [facility] 3 3 [facility] OUTPATIEN [facility] OFFICE 86607 CAMERON GORDILLO OUTPATIEN 3 3 MEDICAL T VISIT SERV 25 FOUNDATIO MINUTES [facility] ZACK [facility] 3 3 [facility] OUTPATIEN [facility] ZACK - 3 3 [facility] ZACK [facility] 3 3 [facility] ZACK - 3 3 [facility] OUTPATIEN [facility] ZACK [facility] 3 3 [facility]EN [facility] ZACK - 2 2 [facility] OUTPATIEN [facility] EMERGENCY 52219 EMEKA CASTELLANO DEPT 2 2 EMERGENCY VISIT SERVICES HIGH SEVERITY& THREAT [facility] ZACK - 2 2 [facility] OUTPAT[facility]EN [facility] ZACK - 2 2 [facility] OUTPATIEN [facility] OFFICE 30113 CAMERON GORDILLO OUTPATIEN 2 2 MEDICAL T VISIT SERV 25 [facility] ZACK [facility] 2 2 [facility] OUTPATIEN [facility] ZACK [facility] 2 2 [facility] OUTPATIEN [facility] ZACK [facility] 2 2 [facility] OUTPATIEN [facility] OFFICE 17208 [place] OUTPATIEN 2 2 MEDICAL T VISIT SERV 15 [facility] ZACK [facility] 2 2 [facility]EN [facility] T EMERGENCY 95733 ZACK 2 2 [facility] T VISIT HIGH/URGE NT SEVERITY HOSPITAL ZACK - 2 2 [facility] OUTPATIEN [facility] EMERGENCY 07825 EMEKA SHIN DEPT 2 2 EMERGENCY III NANCY VISIT SERVICES HIGH SEVERITY& THREAT [facility] ZACK - 2 2 [facility] OUTPATIEN [facility] EMERGENCY 89077 EMEKA WILCOX DEPT 2 2 EMERGENCY CHIDI VISIT SERVICES HIGH SEVERITY& THREAT [facility] ZACK - 2 2 [facility] OUTPATIEN [facility] EMERGENCY 15201 ZACK 2 2 [facility] T VISIT HIGH/URGE NT SEVERITY HOSPITAL ZACK - 2 2 [facility] INPATIENT INC OFFICE 14861 FAMILY STRAWZELL OUTPATIEN 2 2 CARE CRI T VISIT ASSOCIATE 25 S, PSC MINUTES OFFICE 04515 FAMILY STRAWZELL OUTPATIEN 2 2 CARE CRI T VISIT ASSOCIATE 15 S, PSC MINUTES EMERGENCY 35978 ZACK 2 2 [facility] T VISIT LOW/MODER SEVERITY EMERGENCY 30735 EMEKA SHIN 2 2 EMERGENCY III NANCY DEPARTMEN SERVICES T VISIT HIGH/URGE NT SEVERITY [facility]OSPITAL ZACK - 2 2 [facility] ZACK - 2 2 [facility] OUT[facility]IEN INC T OFFICE 10362 [place] ERIBERTO GORDILLO OUTPATIEN 2 2 MEDICAL T VISIT SERV 25 FOUNDATIO MINUTES OFFICE 81766 PAWSAT PAWSAT OUTPATIEN 2 2 Aug T NEW 30 MINUTES [facility]OSPITAL ZACK - 1 1 [facility] ZACK - 1 1 [facility]IEN INC T OFFICE 05540 [place] ERI[place]ERT[place] GORDILLO OUTPATIEN 1 1 MEDICAL T VISIT SERV 25 [facility] ZACK - 1 1 [facility] OUTPATIEN INC EMERGENCY 92621 ZACK 1 1 [facility] T VISIT MODERATE SEVERITY HOSPITAL ZACK - 1 1 [facility] OUTPATIEN [facility]PITAL ZACK [facility] 1 1 [facility] ZACK - 1 1 [facility] ZACK [facility] 1 1 [facility] T OFFICE 91396 [place] S[place] OUTPATIEN 1 1 [place] T NEW 45 CLINIC MINUTES [facility] ZACK - 1 1 [facility] OUTPATIEN INC T OFFICE 42330 [place] ERIBERTO GORDILLO OUTPATIEN 1 1 MEDICAL T NEW 60 SERV MINUTES [facility] ZACK - 1 1 [facility] OUTPATIEN INC T OFFICE 99678 FAMILY JADA OUTPATIEN 1 1 CARE NILO T VISIT ASSOCIATE 40 S MINUTES [facility] ZACK - 1 1 [facility] OUTPATIEN INC EMERGENCY 99987 EMEKA WU 1 1 EMERGENCY JAM DEPARTMEN SERVICES T VISIT MODERATE SEVERITY EMERGENCY 22174 ZACK 1 1 [facility] DEPARTMEN INC T VISIT LOW/MODER SEVERITY OFFICE 64073 FAMILY JADA OUTPATIEN 1 1 CARE NILO T VISIT ASSOCIATE 25 S MINUTES OFFICE 77982 ANKUSH LECHUGA JR OUTPATIEN 1 1 ELAINE ELAINE T VISIT 15 MINUTES HOSPITAL ZACK - 1 1 [facility] OUTPATIEN INC T OFFICE 29085 ALLRAN JR ANKUSH SLOAN OUTPATIEN 1 1 ELAINE ELAINE T NEW 45 MINUTES [facility]OSPITAL ZACK - 1 1 [facility] T [facility]PITAL ZACK - 1 1 [facility] OUTPATIEN INC T OFFICE 75753 FAMILY JADA OUTPATIEN 1 1 CARE NILO T VISIT ASSOCIATE 25 S MINUTES EMERGENCY 15385 ZACK 1 1 [facility] DEPARTMEN INC T VISIT LOW/MODER SEVERITY [facility]OSPITAL ZACK - 1 1 [facility] OUTPATIEN INC T EMERGENCY 98677 EMEKA CASTELLANO 1 1 EMERGENCY DEPARTMEN SERVICES T VISIT HIGH/URGE NT SEVERITY OFFICE 37185 FAMILY BRENDAN J OUTPATIEN 1 1 CARE T VISIT ASSOCIATE 15 S MINUTES EMERGENCY 25667 ZACK 0 0 [facility] DEPARTMEN INC T VISIT LOW/MODER SEVERITY [facility]OSPITAL ZACK - 0 0 [facility] OUTPATIEN INC T EMERGENCY 84404 EMEKA WILCOX 0 0 EMERGENCY [facility] DEPARTMEN SERVICES T VISIT HIGH/URGE NT SEVERITY OFFICE 15776 FAMILY BRENDAN J OUTPATIEN 0 0 CARE T VISIT ASSOCIATE 15 S MINUTES OFFICE 57223 FAMILY BRENDAN J OUTPATIEN 0 0 CARE T VISIT ASSOCIATE 15 S MINUTES [facility]OSPITAL ZACK - 0 0 [facility] OUTPATIEN INC T OFFICE 10585 FAMILY MULBERRY OUTPATIEN 0 0 CARE NILO T VISIT ASSOCIATE 25 S MINUTES [facility]OSPITAL ZACK - 0 0 [facility] T [facility]PITAL ZACK - 0 0 [facility] OUTPATIEN INC T OFFICE 67220 [facility] PETTEY OUTPATIEN 0 0 PHYSICIAN JAM T NEW 45 S GROUP MINUTES EMERGENCY 62377 ZACK 0 0 [facility] DEPARTMEN INC T VISIT MODERATE SEVERITY EMERGENCY 52224 EMEKA WILCOX 0 0 EMERGENCY [facility] DEPARTMEN SERVICES T VISIT HIGH/URGE NT SEVERITY HOSPITAL ZACK - 0 0 [facility] OUTPATIEN INC T OFFICE 33541 FAMILY MULBERRY OUTPATIEN 0 0 CARE NILO T VISIT ASSOCIATE 25 S MINUTES OFFICE 38759 FAMILY MULBERRY, OUTPATIEN 0 0 CARE CLEO T T VISIT ASSOCIATE 15 S MINUTES OFFICE 39694 FAMILY MULBERRY, OUTPATIEN 0 0 CARE CLEO T T VISIT ASSOCIATE 25 S MINUTES OFFICE 11307 FAMILY MULBERRY, OUTPATIEN 0 0 CARE CLEO T T VISIT ASSOCIATE 15 S MINUTES OFFICE 32127 FAMILY MULBERRY, OUTPATIEN 0 0 CARE CLEO T T VISIT ASSOCIATE 25 S MINUTES [facility]OSPITAL ZACK - 0 0 [facility] INPATIENT INC EMERGENCY 24145 EMEKA WILCOX, DEPT 0 0 EMERGENCY TAYA S VISIT SERVICES HIGH SEVERITY& ASSOCIATE THREAT S FUNCJ OFFICE 28961 FAMILY MULBERRY, OUTPATIEN 0 0 CARE CLEO T T VISIT ASSOCIATE 15 S MINUTES EMERGENCY 23472 ZACK 0 0 [facility] DEPARTMEN INC T VISIT LOW/MODER SEVERITY [facility]OSPITAL ZACK - 0 0 [facility] OUTPATIEN INC [facility] ZACK - 0 0 [facility] OUTPATIEN INC T OFFICE 41327 MEANS BUTROS, OUTPATIEN 9 9 ADULT BERNARDA T VISIT PRIMARY 15 CARE [facility] ZACK - 9 9 [facility] OUTPATIEN INC T OFFICE 57127 MEANS BUTROS, OUTPATIEN 9 9 ADULT BERNARDA T VISIT PRIMARY 25 CARE [facility] ZACK - 9 9 [facility] OUTPATIEN INC T OFFICE 86733 MEANS BUTNGOZI, CONSULTAT 9 9 ADULT BERNARDA ION PRIMARY [facility] EMERGENCY [facility] 80 MIN [facility] ZACK - 9 9 [facility] OUTPATIEN INC T OFFICE 02654 FAMILY JADA OUTPATIEN 9 9 CARE CLEO T T VISIT ASSOCIATE 15 S MINUTES OFFICE 75175 FAMILY OLGANBERRY OUTPATIEN 9 9 CARE CLEO T T VISIT ASSOCIATE 25 S MINUTES [facility] ZACK - 9 9 [facility] OUTPATIEN INC T OFFICE 57529 FAMILY JADA OUTPATIEN 9 9 CARE CLEO T T VISIT ASSOCIATE 25 S MINUTES OFFICE 18244 FAMILY KO OCAMPO 8 8 CARE R PADMINI T VISIT ASSOCIATE 25 S MINUTES HOSPITAL ZACK - 8 8 [facility] OUTPATIEN INC T OFFICE 01809 Sameer MARCOS OUTPATIEN 8 8 CARE G T VISIT ASSOCIATE 15 S MINUTES [facility] ZACK - 8 8 [facility] OUTPATIEN INC T EMERGENCY 09139 ZACK 8 8 [facility] DEPARTMEN INC T VISIT LOW/MODER SEVERITY EMERGENCY 78935 ZACK 8 8 [facility] DEPARTMEN INC T VISIT LIMITED/M INOR PROB [facility] ZACK - 8 8 [facility] T
--- OUTSIDE RECORDS SUMMARY | 2016-10-20 19:26 | External Medical Summary Rpt ---
Author Author , Organization [employer] Address Unknown Phone Unavailable Care Team Providers Care Transmission Mechanic Name Role Phone CALDERON VALENTINE, CALDERON Unavailable [...] TRACY RODRIGUEZ ALL, RODRIGUEZ ALL Unavailable Unavailable [facility] Unavailable Unavailable SERVICE, [facility]available Unavailable SERVICE, [facility] BUTROS, REZKALLA, Unavailable Unavailable BUTROS, REZKALLA [facility] Unavailable Unavailable CONSULTANTS O, [facility] CONSULTANT[facility] O [facility] Unavailable Unavailable CAMPUS, [facility] Unavailable Unavailable CAMPUS, [facility] Unavailable Unavailable [place], [facility] [...] ANDREZ, Unavailable Unavailable MARISOL ANDREZ [facility] Unavailable Unavailable INC, [facility] Unavailable Unavailable Hospital, [facility] Unavailable Unavailable HOSPITAL P, [facility] PETERS LANNY, PETERS LANNY Unavailable Unavailable PETERS LANNY, PETERS LANNY Unavailable Unavailable PETERS, GEE A, Unavailable Unavailable PETERS, GEE A [facility], Unavailable Unavailable [facility] JOINER, JOINER Unavailable Unavailable KLARISSA IMT, KLARISSA Unavailable Unavailable IMT Scarlet Patterson INSTANT POTATO PROCESSOR, Unavailable Unavailable Scarlet Patterson INSTANT POTATO PROCESSOR [facility] Unavailable Unavailable [facility]ING [facility], [facility] KOTTER JUAN J, KOTTER [...] MED [facility] [facility] Unavailable Unavailable [facility], [facility] Unavailable Unavailable SERVICES, [facility] MCKEMIE JR NANCY, Unavailable Unavailable MCKEMIE JR NANCY MICH CARLOS, MICH Unavailable Unavailable CARLOS MICH, XAVI P, Unavailable Unavailable CARLOS EPPSETT P MULBERRY NILO, Unavailable Unavailable MULBERRY NILO MULBERRY, CLEO T, Unavailable Unavailable MULBERRY, CLEO T CROWELL SON, CROWELL SON Unavailable Unavailable [facility] Unavailable Unavailable [facility] Clemente OCAMPO, Unavailable Unavailable Clemente [...] Unavailable Unavailable EQUIPME, [facility] Unavailable Unavailable EMERGENCY PHYS, [facility] Unavailable Unavailable CLINIC, [facility] STRAWZELL CRI, Unavailable Unavailable STRAWZELL CRI [facility], Unavailable Unavailable [facility], Unavailable Unavailable [facility] WEI RAND, WEI RAND Unavailable Unavailable WEHRMAN III NANCY, Unavailable Unavailable WEHRMAN III NANCY [facility] Unavailable Unavailable LLC, [facility] ELSA LIRA, ELSA LIRA [...] 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 I44.1 Atrioventri [...] 10-13-2016 index (BMI) 50-59.9 , adult Z79.02 continuous churn buttermaker 10-13-2016 (current) use of antithrombo tics/antipl atelets Z79.4 continuous churn buttermaker 10-13-2016 (current) use of insulin Z79.82 continuous churn buttermaker 10-13-2016 (current) use of aspirin Z86.73 Personal 10-13-2016 history of transient ischemic attack (TIA), and cerebral infarction without residual deficits Z98.61 Coronary 10-13-2016 angioplasty status I44.30 Unspecified 10-07-2016 atrioventri cular block R57.9 Shock, 09-30-2016 unspecified E109 TYPE 1 09-14-2016 [facility] DIABETES PHYSICIANS MELLITUS GROUP WITHOUT COMPLICATIO NS I213 ST 09-14-2016 [facility] ELEVATION PHYSICIANS MYOCARDIAL GROUP INFARCTION UNS SITE I739 PERIPHERAL 09-14-2016 [facility] VASCULAR PHYSICIANS DISEASE GROUP UNSPECIFIED N183 CHRONIC 09-14-2016 [facility] KIDNEY PHYSICIANS DISEASE GROUP STAGE 3 MODERATE E1142 TYPE 2 09-13-2016 [facility] P W/DIAB POLYNEUROPA THY I119 HYPERTENSIV 09-13-2016 [facility] E HEART PHYSICIANS, DISEASE PLLC WITHOUT HEART FAILURE I129 HYPERTENSIV 09-13-2016 [facility] E CKD [facility] W/STAGE 1-4 INC CKD OR UNS CKD R88725 ASHD KOYUK 09-13-2016 [facility] COR ART [facility] W/UNSTABLE INC ANGINA PECTORIS I5043 ACUTE ON 09-13-2016 [facility] P SYSTOLIC & DIASTOLIC CHF I773 ARTERIAL 09-13-2016 [facility] FIBROMUSCUL [facility] AR INC DYSPLASIA R0602 SHORTNESS 09-13-2016 H OF BREATH PHYSICIANS GROUP R0689 OTHER 09-13-2016 [facility] ABNORMALITI AMBULANCE ES OF SERVICE BREATHING 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 09-13-2016 [facility] CURRENT USE [facility]OS[facility] OF INSULIN INC E039 HYPOTHYROID 06-09-2016 [facility] ISM [facility] UNSPECIFIED INC E118 TYPE 2 06-09-2016 [facility] DIABETES [facility] MELLITUS INC W/UNS COMPLICATIO NS E119 TYPE 2 03-21-2016 [facility] DIABETES SERV MELLITUS FOUNDATION WITHOUT COMPLICATIO NS M810 AGE-RELATED 03-21-2016 [facility] SERV OSTEOPOROSI FOUNDATION S W/O CURRNT PATH FX N184 CHRONIC 03-21-2016 [facility] KIDNEY SERV DISEASE FOUNDATION STAGE 4 SEVERE N250 RENAL 03-21-2016 [facility] OSTEODYSTRO SERV PHY FOUNDATION N390 URINARY 03-18-2016 [facility] TRACT PHYSICIANS INFECTION LA SITE NOT SPECIFIED Q72342 TYPE 2 02-28-2016 [facility] P W/HYPOGLYCE VICTORIANO W/O COMA E162 HYPOGLYCEMI 02-28-2016 [facility] Meza PHYSICIANS, UNSPECIFIED PLLC E876 HYPOKALEMIA 02-28-2016 [facility] INC I10 ESSENTIAL 02-28-2016 [facility] P N I5032 CHRONIC 02-28-2016 [facility] P HEART FAILURE R410 DISORIENTAT 02-28-2016 [facility] ION AMBULANCE UNSPECIFIED SERVICE Z591 INADEQUATE 02-28-2016 [facility] HOUSING [facility] INC C81669 OTHER LONG 02-28-2016 [facility] TERM [facility] CURRENT INC DRUG THERAPY G4733 OBSTRUCTIVE 02-15-2016 [facility] SLEEP HOME APNEA ADULT MEDICAL PEDIATRIC EQUIPME [id number] MX FX 02-15-2016 [facility] PELVIS STBL HOME [...] [facility] RESPONSIVEN SERVICE ESS D45905 CELLULITIS 08-16-2015 [facility] [place] LOWER LIMB INTERNAL MED A56524 CELLULITIS 08-16-2015 [place] [place] LEFT [place] LOWER LIMB INTERNAL MED E1021 TYPE 1 08-10-2015 [facility] DIABETES [facility] MELLITUS INC W/DIABETIC NEPHROPATHY E1065 TYPE 1 08-10-2015 [facility] DIABETES [facility] MELLITUS INC WITH HYPERGLYCEM IA E138 OTH SPEC 08-10-2015 [facility] DIABETES PHYSICIANS, MELLITUS PLLC W/UNS COMPLICATIO NS W59181 CELLULITIS 08-10-2015 [facility] OF PHYSICIANS, UNSPECIFIED PLLC PART OF LIMB R739 HYPERGLYCEM 08-10-2015 [facility] [place] AMBULANCE UNSPECIFIED SERVICE L853 XEROSIS 08-09-2015 [facility] CUTIS [place] INTERNAL MED E6601 MORBID 08-05-2015 [facility] SEVERE [place] OBESITY DUE INTERNAL TO EXCESS MEDI CALORIES I270 PRIMARY 07-20-2015 [facility] PULMONARY [facility] HYPERTENSIO CAMPUS N I5030 UNSPECIFIED 07-20-2015 [facility] CONGESTIVE [place] HEART FAILURE R0600 DYSPNEA 07-20-2015 [facility] M542 CERVICALGIA 07-12-2015 [facility] MOBILEX M546 PAIN IN 07-12-2015 [facility] THORACIC MOBILEX SPINE I509 HEART 07-11-2015 [facility] FAILURE VALLEY UNSPECIFIED INTERNAL MED I8311 VARICOSE 07-11-2015 [place] VE[place] RT [place] LOWER INTERNAL EXTREMITY MED W/INFLAMMAT ION M4003 POSTURAL 07-11-2015 [facility] KYPHOSIS VALLEY CERVICOTHOR INTERNAL ACIC REGION MED R05 COUGH 06-05-2015 [facility] R600 LOCALIZED 05-09-2015 [facility] EDEMA LAR CONSULTANTS O I348 OTHER 05-05-2015 [facility] NONRHEUMATI SERV C MITRAL FOUNDATION VALVE DISORDERS I361 NONRHEUMATI 05-05-2015 [facility] C TRICUSPID SERV VALVE FOUNDATION INSUFFICIEN CY I371 NONRHEUMATI 05-05-2015 [facility] C PULMONARY SERV VALVE FOUNDATION INSUFFICIEN [...] HOSP 40.0-44.9 INC ADULT N3020 OTHER 04-28-2015 [facility] P WITHOUT HEMATURIA J209 ACUTE 03-31-2015 [facility] BRONCHITIS [facility] UNSPECIFIED INC V75682 PERSONAL 03-31-2015 [facility] HISTORY OF [facility]OS[facility] NICOTINE INC DEPENDENCE A499 BACTERIAL 03-23-2015 [place] [facility] INFECTION SERV UNSPECIFIED FOUNDATION R279 UNSPECIFIED 03-19-2015 [facility] LACK OF MEM HOS[facility] COORDINATIO INC N Z5189 ENCOUNTER 03-19-2015 [facility] FOR OTHER [facility] SPECIFIED INC AFTERCARE 34425 DIAB W/O 03-17-2015 [facility] COMP TYPE I HOME [JUV] NOT MEDICAL STATED EQUIPME UNCNTRL 47719 OBSTRUCTIVE 03-17-2015 [facility] SLEEP HOME APNEA MEDICAL EQUIPME 39693 MULTIPLE 03-17-2015 [facility] CLOSED HOME PELVIC FX MEDICAL DISRUPT EQUIPME PELVIC LITTLE TRAVERSE 2449 UNSPECIFIED 03-10-2015 [facility] HYPOTHYROID INC ISM 07175 DIAB W/O 03-10-2015 [facility] COMP TYPE [facility] II/UNS NOT INC STATED UNCNTRL 5854 CHRONIC 03-10-2015 [facility] DISEASE INC STAGE IV (SEVERE) 5990 URINARY 03-10-2015 [facility] TRACT [facility] INFECTION INC SITE NOT SPECIFIED 07963 UNSPECIFIED 03-10-2015 [facility] OSTEOPOROSI INC S 4019 UNSPECIFIED 03-02-2015 [facility] ESSENTIAL [place] HYPERTENSIO INTERNAL N MEDI 4541 VARICOSE 03-02-2015 [place] LOWER [place] INTERNAL EXTREMITIES MEDI W/INFLAMMAT ION 45848 UNSPECIFIED 03-02-2015 [place] CONSTIPATIO INTERNAL N MEDI 5939 UNSPECIFIED 03-02-2015 [place] DISORDER VALLEY OF KIDNEY INTERNAL AND URETER MEDI 7823 EDEMA 03-02-2015 [place] INTERNAL MEDI 39455 UNSPECIFIED 03-02-2015 [place] RETENTION [place] OF URINE INTERNAL MEDI 93802 UNSPECIFIED 02-24-2015 [facility]ULT[facility] 7813 LACK OF 02-24-2015 [facility] P V571 OTHER 02-24-2015 [facility] [place] PHYSICAL [facility] THERAPY INC 5952 OTHER 02-03-2015 [facility] P 2761 HYPOSMOLALI 01-17-2015 [facility] TY AND/OR HEALTH HYPONATREMI CAMPUS A 25371 LEUKOCYTOSI 01-17-2015 [facility] S HEALTH UNSPECIFIED CAMPUS 5849 ACUTE 01-17-2015 [facility] KIDNEY HEALTH FAILURE CAMPUS UNSPECIFIED 7197 DIFFICULTY 01-17-2015 [facility] IN WALKING HEALTH CAMPUS 63756 MUSCLE 01-17-2015 [facility] WEAKNESS HEALTH (GENERALIZE CAMPUS D) 7993 UNSPECIFIED 01-17-2015 [facility] DEBILITY HEALTH CAMPUS 9953 ALLERGY 01-17-2015 [facility] UNSPECIFIED HEALTH NOT CAMPUS ELSEWHERE CLASSIFIED 60035 HTN CKD UNS 12-25-2014 [place] [facility] W/CKD SERV STAGE I FOUNDATION THRU STAGE IV/UNS 515 POSTINFLAMM 12-16-2014 [facility] ATORY [facility] PULMONARY FIBROSIS V5881 FITTING AND 12-16-2014 [facility] ADJUSTMENT MOBILEX OF VASCULAR CATHETER 4280 CONGESTIVE 12-09-2014 [facility] HEART MOBILEX FAILURE UNSPECIFIED 4293 CARDIOMEGAL 12-09-2014 [facility] Y MOBILEX 1101 DERMATOPHYT 12-04-2014 [facility] OSIS OF E NAIL 97355 DIAB 12-04-2014 [facility] W/PERIPH E CIRC D/O TYPE II/UNS NOT UNCNTRL 4439 UNSPECIFIED 12-04-2014 [facility] PERIPHERAL E VASCULAR DISEASE 9172 FOOT&TOE 12-04-2014 [facility] BLISTER E WITHOUT MENTION OF INFECTION 9243 CONTUSION 12-04-2014 [facility] OF TOE E 96951 ABDOMINAL 11-03-2014 [place] PAIN RIGHT MEDICAL UPPER IMAGING ASS QUADRANT 5533 DIAPHRAGMAT 11-01-2014 [place] KODY W/O MEDICAL MENTION IMAGING ASS OBSTRUCTION /GANGREN 7905 OTHER 11-01-2014 [place] NONSPECIFIC MEDICAL ABNORMAL IMAGING ASS SERUM ENZYME LEVELS 7862 COUGH 10-30-2014 [facility] V5869 LONG-TERM 10-30-2014 [facility] (CURRENT) [facility] USE OF INC OTHER MEDICATIONS 09686 UNSPECIFIED 10-28-2014 [place] OTALGIA MEDICAL IMAGING ASS 7224 DEGENERATIO 10-28-2014 [place] N OF MEDICAL CERVICAL IMAGING ASS INTERVERTEB RAL DISC 7231 CERVICALGIA 10-28-2014 [facility] 25630 SENILE 06-23-2014 [facility] OSTEOPOROSI [facility] S INC 1589 UNSPECIFIED 05-20-2014 [facility] VITAMIN D [facility] DEFICIENCY INC 2724 OTHER AND 05-20-2014 [facility] UNSPECIFIED [facility]OSP INC HYPERLIPIDE VICTORIANO 44055 OTHER 05-20-2014 [facility] OSTEOPOROSI [facility] S INC 85167 HYPERTENSIV 02-20-2014 [facility] E HEART [facility] DISEASE INC UNSPEC W/HEART FAIL 4660 ACUTE 02-20-2014 [facility] BRONCHITIS [facility] INC 490 BRONCHITIS 02-20-2014 [facility]ERG[facility]Y SPECIFIED PHYS ACUTE OR CHRONIC 94554 SWELLING OF 02-20-2014 [facility] N EMERGENCY PHYS 5853 CHRONIC 11-18-2013 [facility]ICAL KIDNEY SERV DISEASE FOUNDATIO STAGE III (MODERATE) 586 UNSPECIFIED 10-29-2013 [facility] RENAL PHYSICIANS FAILURE [place] 7262 OTHER 05-30-2013 [facility] AFFECTIONS PHYSICIANS OF SHOULDER GROUP REGION NEC 68801 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-2013 [facility] 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 00166 DISORDER OF 05-21-2013 [place] BONE AND MEDICAL CARTILAGE IMAGING ASS UNSPECIFIED V1559 PERSONAL 05-21-2013 [place] HISTORY OF MEDICAL OTHER IMAGING ASS INJURY V4981 ASYMPTOMATI 05-21-2013 [place] C MEDICAL POSTMENOPAU IMAGING ASS KEELY STATUS 97886 UNSPECIFIED 04-29-2013 [facility] VIRAL [facility]ERGENCY INFECTION SERVICES IN CCE & UNS SITE 4659 ACUTE URIS 04-29-2013 [facility] OF EMERGENCY UNSPECIFIED SERVICES SITE 76973 CRAMP OF 04-05-2013 [facility] PHYSICIANS [place] 7241 PAIN IN 01-16-2013 [facility] SPINE [facility] P 45182 ORTHOPNEA 01-16-2013 [facility] P 81456 OTHER 01-16-2013 [facility] DYSPNEA AND EMERGENCY SERVICES RESPIRATORY ABNORMALITI ES 7265 ENTHESOPATH 10-17-2012 [facility] Y OF HIP [facility] REGION INC 84083 PAIN IN 08-22-2012 [place] JOINT MEDICAL PELVIC IMAGING ASS REGION AND THIGH 2749 GOUT, 07-16-2012 [place] [address] SHORTNESS 05-28-2012 [facility] CLINIC 4240 MITRAL 05-27-2012 [facility] VALVE [facility] DISORDERS INC 29627 OSTEOARTHRO 05-27-2012 [facility] S UNSPEC [facility] HOS[facility] WHETHER INC GEN/LOC UNSPEC SITE 43428 CHEST PAIN 05-27-2012 [place] UNSPECIFIED MEDICAL IMAGING ASS 02691 OTHER CHEST 05-27-2012 [facility] P 5859 CHRONIC 12-01-2011 [facility] DISEASE INC UNSPECIFIED 43654 HYPERSOMNIA 11-15-2011 [facility] WITH SLEEP [place] APNEA UNSPECIFIED 64769 ANEMIA OF 10-30-2011 [facility] P DISEASE 2859 UNSPECIFIED 10-30-2011 [facility] ANEMIA [facility]ERGENCY SERVICES 99616 DEGEN 10-30-2011 [place] THORACIC/TH MEDICAL ORACOLUMBAR IMAGING ASS INTERVERTEB RAL DISC 85953 DEGEN 10-30-2011 [place] LUMBAR/LUMB MEDICAL OSACRAL IMAGING ASS INTERVERTEB RAL DISC 7242 LUMBAGO 10-30-2011 [facility] P 7245 UNSPECIFIED 10-30-2011 [facility] BACKACHE [facility]ERGENCY SERVICES 7840 HEADACHE 10-30-2011 [facility] INC 01085 OTHER 10-20-2011 [place] DISEASES OF MEDICAL LUNG NOT IMAGING ASS ELSEWHERE CLASSIFIED 5199 UNSPECIFIED 10-20-2011 [place] DISEASE OF MEDICAL IMAGING ASS RESPIRATORY SYSTEM V5867 LONG-TERM 10-19-2011 [place] USE OF [facility] P 3559 MONONEURITI 10-14-2011 [facility] S OF HOME UNSPECIFIED MEDICAL SITE EQUIPME 21397 OTHER 10-14-2011 [facility] MALAISE AND HOME FATIGUE MEDICAL EQUIPME 5180 PULMONARY 10-05-2011 [place] COLLAPSE MEDICAL IMAGING ASS 84244 OTHER 09-30-2011 [facility] STAPHYLOCOC MEM [facility] CUS INC INFECTION IN CCE & UNS SITE 2768 HYPOPOTASSE 09-30-2011 [facility] VICTORIANO [employer] 2888 OTHER 09-30-2011 [facility] SPECIFIED DISEASE OF ASSOCIATES, WHITE BLOOD PSC CELLS 4599 UNSPECIFIED 09-30-2011 [facility] CIRCULATORY INC SYSTEM DISORDER 486 PNEUMONIA, 09-30-2011 [facility] [place] ORGANISM [facility] UNSPECIFIED INC 76195 OTHER 09-30-2011 [place] SPECIFIED MEDICAL DISORDERS IMAGING ASS OF BLADDER 19632 OSTEOARTHRO 09-30-2011 [place] SIS UNSPEC MEDICAL WHETHER IMAGING ASS GEN/LOC LOWER LEG 95636 EFFUSION OF 09-30-2011 [place] LOWER LEG MEDICAL JOINT IMAGING ASS 7291 UNSPECIFIED 09-30-2011 [facility] MYALGIA [employer] MYOSITIS 7295 PAIN IN 09-30-2011 [facility] SOFT TISSUES OF ASSOCIATES, LIMB PSC 7821 RASH AND 09-14-2011 [facility] OTHER NONSPECIFIC ASSOCIATES, SKIN PSC ERUPTION V770 SCREENING 09-14-2011 [facility] FOR THYROID DISORDER ASSOCIATES, PSC V7791 SCREENING 09-14-2011 [facility] FOR LIPOID DISORDERS ASSOCIATES, PSC 23514 DIAB 06-24-2011 [facility] W/NEURO MANIFESTS TYPE II/UNS NOT UNCNTRL 7038 OTHER 06-24-2011 [facility] SPECIFIED DISEASE OF NAIL 22845 SECONDARY 03-29-2011 [facility] OSTEOARTHRO CLINIC PSC SIS LOWER LEG 17726 PAIN IN 03-29-2011 [facility] JOINT, [facility]OS[facility] LOWER LEG INC 22054 BACKGROUND 03-25-2011 [facility] DIABETIC VISION RETINOPATHY 34079 NUCLEAR 03-25-2011 [facility] SCLEROSIS VISION 7820 DISTURBANCE 02-09-2011 [facility] OF SKIN [facility] SENSATION INC 2767 HYPERPOTASS 02-07-2011 [facility] EMIA ASSOCIATES 460 ACUTE 02-07-2011 [facility] NASOPHARYNG ASSOCIATES ITIS 6929 CONTACT 01-27-2011 [facility] DERMATITIS& EMERGENCY OTHER SERVICES ECZEMA DUE UNSPEC CAUSE 13737 PAIN IN 12-09-2010 [facility] JOINT, ASSOCIATES MULTIPLE SITES 68484 UNSPEC 10-28-2010 ALLRAN JR VENTRAL ELAINE KODY W/O MENTION OBST/GANGRE N 74882 ABDOMINAL 09-21-2010 [facility] PAIN, MEM HOS[facility] GENERALIZED INC 7831 ABNORMAL 08-24-2010 [facility] WEIGHT GAIN PHYSICIANS [place] 5110 PLEURISY 07-18-2010 [facility] WITHOUT EMERGENCY MENTION SERVICES EFFUS/[place] [address] PAINFUL 07-18-2010 [place] RESPIRATION MEDICAL IMAGING ASS 2721 PURE 07-08-2010 [facility] HYPERGLYCER PHYSICIANS IDEMIA [place] 7944 NONSPECIFIC 07-07-2010 [facility] ABNORM ASSOCIATES RESULTS KIDNEY FUNCTION STUDY 03786 ASTHMA, 06-16-2010 [facility] UNSPECIFIED EMERGENCY , SERVICES UNSPECIFIED STATUS 22381 DIAB 05-21-2010 PET[facility] LANNY W/OPHTH MANIFESTS TYPE II/UNS NOT UNCNTRL 8250 CLOSED 04-28-2010 [facility] FRACTURE OF [facility] HOSP CALCANEUS INC V5416 AFTERCARE 04-28-2010 [place] HEALING MEDICAL TRAUMATIC IMAGING ASS FRACTURE LOWER LEG 8248 UNSPECIFIED 03-31-2010 [place] CLOSED MEDICAL FRACTURE OF IMAGING ASS ANKLE 17732 OTHER ANKLE 03-31-2010 [facility] [employer] STR[facility] S INC 9596 INJURY 02-17-2010 [place] OTHER AND MEDICAL UNSPECIFIED IMAGING ASS HIP AND THIGH 9597 INJURY 02-17-2010 [place] OTHER&UNSPE MEDICAL CIFIED KNEE IMAGING ASS LEG ANKLE&FOOT 920 CONTUSION 02-16-2010 [facility] OF FACE EMERGENCY SCALP AND SERVICES NECK EXCEPT EYE 00978 CONTUSION 02-16-2010 [facility] [place] OF HIP [facility] INC E8859 FALL FROM 02-16-2010 [facility] OTHER EMERGENCY SLIPPING SERVICES TRIPPING OR STUMBLING 06798 INSOMNIA 02-04-2010 [facility] UNSPECIFIED ASSOCIATES V0382 NEED PROPH 02-04-2010 [facility] VACCINATION ASSOCIATES AGAINST STREP PNEUMONE 81078 URINARY 11-04-2009 [facility] FREQUENCY ASSOCIATES 2811 OTHER 08-24-2009 [facility] VITAMIN B12 ASSOCIATES DEFICIENCY ANEMIA 514 PULMONARY 08-24-2009 [facility] CONGESTION ASSOCIATES AND HYPOSTASIS E8490 PLACE OF 07-10-2009 [facility], MEDICAL HOME IMAGING ASSOCIATES 14288 GEN 04-15-2009 DI[facility] OSTEOARTHRO CARE CLUB [facility] INVOLVING MULTIPLE SITES 7919 OTHER 03-31-2009 [place] [place] NONSPECIFIC [facility] FINDING INC EXAMINATION OF URINE 52781 NEPHRITIS&N 03-24-2009 [facility] EPHROPATHY PRIMARY W/OTH CARE CENTER PATHOLOG KIDNEY LES 24315 NOCTURIA 03-11-2009 [facility] 14675 HYPERSOMNIA 02-26-2009 [facility] UNSPECIFIED 47853 DIAB 11-28-2008 [facility] W/OPHMADONNA Meza MANIFESTS TYPE II/UNS TYPE UNCNTRL 4619 ACUTE 06-17-2008 [facility] SINUSITIS, ASSOCIATES UNSPECIFIED 8082 CLOSED 03-18-2008 [facility] FRACTURE OF L REHAB PUBIS ASSOC PSC 7089 UNSPECIFIED 11-17-2007 [facility] URTICARIA ASSOCIATES 6868 OTH SPEC 11-12-2007 [facility] INFECTIONS HOSPITAL SKIN&SUBCUT PROF SERV TISSUE V642 SURG/OTH 11-11-2007 [facility] [place] PROC NOT MEM HOSP CARRIED OUT INC BECAUSE PTS DECN 401.9 Essential Delong hypertensio [facility] [id number] Diastolic [facility]ong heart [facility] failure Hospital [id number] Diabetes Delong mellitus [facility] type 2 Hospital [phone] Mitral [facility]ong valve [facility].09 Dyspnea [facility] [...] RO 40 -3 SE 96 1- Lo OR 10 20 ng DE 20 13 er [...] 02:30 Cnc NT-proBNP SerPl-mCnc (10-03-2016 02:30) NT-proB 00276 0-1799 complet RN TRANSITIONAL 017 pg/mL ed SerPl-m 02:30 Cnc MDRO Wnd (09-30-2016 22:55) CC XXX NOTAP complet VC-aCnc 017 NOT ed 22:55 APPLICA BLE L Bacteri [id number] complet a XXX 017 ed Anaerob 22:55 Staphyl e+Aerob ococcus e Cult aureus (organi sm) SCT SAUR STAPHYL OCOCCUS AUREUS L Bacteri [id number] complet a XXX 017 01 ed Anaerob [...] mIU/L-a Cnc NT-proBNP SerPl-mCnc (09-30-2016 12:10) NT-proB 00199 0-1799 complet RN TRANSITIONAL 017 pg/mL ed SerPl-m 12:10 Cnc T3 SerPl-mCnc (09-30-2016 12:10) T3 67 87-187 complet SerPl-m 017 ng/dL ed Cnc 12:10 Bacteria Ur Cult (09-30-2016 12:10) CC XXX NOTAP complet VC-aCnc 017 NOT ed 12:10 APPLICA BLE L Bacteri [id number] complet a XXX 017 8 Genus ed Anaerob 12:10 e+Aerob Lactoba e Cult cillus (organi sm) SCT LACB LACTOBA CILLUS SPECIES L Bacteria XXX Anaerobe+Aerobe Cult (09-30-2016 12:10) Bacteri [id number] complet a XXX 017 06 No ed [...] Procedure DOS Code Location Performer Comment SBSQ 02572 [facility] 7 PHYSICIAN CARE/DAY S GROUP 25 MINUTES AMBULANCE A0429 [facility] SERVICE 7 AMBULANCE AMBULANCE BLS SERVICE SERVICE [facility]SP[facility] PER SERVICE SERVICE STATUTE MILE ECG 51492 [facility] BARRETO JR ROUTINE 7 [facility] W/LEAST P 12 LDS I&R ONLY DILAT [id number] [facility] CORONARY 7 [facility] HOSP ART 2 ART INC INC 2 RX-ELUT [place] DEVC PERQ FLUORO [id number] [facility] MULTI 7 [facility] CORONARY INC INC ARTERIES LOW OSMOLAR CONT FLUOROSCO [id number] ZACK DIXON PY LEFT 7 [facility] HEART LOW INC INC OSMOLAR CONTRAST FLUORO [id number] ZACK DIXON BILATERAL 7 [facility] RENAL INC INC ART LOW OSMOLAR CONTRST INITIAL 27038 [facility] 7 PHYSICIAN CARE/DAY S GROUP 70 MINUTES MEASUREME [id number] ZACK DIXON NT 7 [facility] CARDIAC INC INC SAMPLING PRESS LT HEART PERQ LIPID 75625 ZACK DIXON PANEL 6 [facility] INC HEMOGLOBI 88335 ZACK DIXON N 6 [facility] GLYCOSYLA INC INC ALEX A1C COLLECTIO 72302 ZACK Yoo VENOUS 6 [facility] BLOOD INC INC VENIPUNCT URE COMPREHEN 84471 ZACK DIXON SIVE 6 [facility] [place] [address] ZACK DIXON THYROID 6 [facility] STIMULATI INC INC NG HORMONE TSH CULTURE 67995 COMBINED COMBINED BACTERIAL 6 PHYSICIAN PHYSICIAN S LA S LA QUANTTATI VE COLONY COUNT URINE CULTURE 83158 COMBINED COMBINED BCT 6 PHYSICIAN PHYSICIAN ISOL&PRSM S LA S LA PTV ID ISOLATE EA URINE VOLUME 02820 COMBINED COMBINED MEASUREME 6 PHYSICIAN PHYSICIAN NT TIMED S LA S LA COLLECTIO N EACH RENAL 62687 COMBINED COMBINED FUNCTION 6 PHYSICIAN PHYSICIAN PANEL S LA S LA URNLS DIP 81810 COMBINED COMBINED 6 PHYSICIAN PHYSICIAN STICK/TAB S LA S LA LET REAGENT AUTO MICROSCOP Y BLOOD 10908 COMBINED COMBINED COUNT 6 PHYSICIAN PHYSICIAN COMPLETE S LA S LA AUTO&AUTO DIFRNTL WBC 25 29321 COMBINED COMBINED HYDROXY 6 PHYSICIAN PHYSICIAN INCLUDES S LA S LA FRACTIONS IF PERFORMED A4258 ARRIVA ARRIVA WERED 6 MEDICAL CLINICAL PRACTICE CONSULTANT FOR LANCET EACH NORMAL A4256 ARRIVA ARRIVA LOW AND 6 MEDICAL MEDICAL HIGH CALIBRATO R SOLUTION/ CHIPS LANCETS A4259 ARRIVA ARRIVA PER BOX 6 MEDICAL MEDICAL OF 100 BLD GLU A4253 ARRIVA ARRIVA TEST/REAG 6 MEDICAL MEDICAL T STRIPS HOME BLD GLU MON-50 COLLECTIO 81509 ZACK Yoo VENOUS 6 [facility] BLOOD INC INC VENIPUNCT URE BASIC 25000 ZACK DIXON METABOLIC 6 [facility] PANEL INC INC [facility] G0378 ZACK DIXON OBSERVATI 6 [facility] ON INC INC SERVICE PER HOUR GLUC BLD 52863 ZACK DIXON GLUC MNTR 6 [facility] DEV INC INC CLEARED FDA SPEC HOME USE GLUC BLD 92428 ZACK DXION GLUC MNTR 6 MEM [facility] DEV INC INC CLEARED FDA SPEC HOME USE BLOOD 89297 ZACK DIXON COUNT 6 [facility] COMPLETE INC INC AUTO&AUTO DIFRNTL WBC URNLS DIP 04954 ZACK DIXON 6 [facility] STICK/TAB INC INC LET REAGENT AUTO MICROSCOP Y PRESSURIZ 92822 ZACK DIXON ED/NONPRE 6 [facility] SSURIZED INC INC INHALATIO N TREATMENT AMB A0427 [facility] SERVICE 6 AMBULANCE AMBULANCE ALS SERVICE SERVICE EMERGENCY TRANSPORT LEVEL 1 CREATINE 40379 ZACK DIXON KINASE 6 [facility] TOTAL INC INC THER 58065 ZACK DIXON PROPH/DX 6 [facility] NJX IV INC INC PUSH SINGLE/1S T SBST/DRUG ECG 05812 ZACK DIXON ROUTINE 6 [facility] ECG INC INC W/LEAST 12 LDS TRCG ONLY W/O I&R COMPREHEN 42310 ZACK DIXON SIVE 6 [facility] METABOLIC INC INC PANEL CREATINE 23765 ZACK DIXON KINASE MB 6 [facility] FRACTION INC INC ONLY HOSPITAL G0378 ZACK DIXON OBSERVATI 6 [facility] ON INC INC SERVICE PER HOUR COLLECTIO 02051 ZACK DIXON N VENOUS 6 [facility] BLOOD INC INC VENIPUNCT URE GROUND A0425 [facility] MILEAGE 6 AMBULANCE AMBULANCE PER SERVICE SERVICE STATUTE MILE ECG 27051 ZACK MCLEAN ROUTINE 6 [facility] W/LEAST P 12 LDS I&[place] [address] ZACK DIXON TROPONIN 6 [facility] QUANTITAT INC INC MARIBEL STANDARD K0001 REID CHAUDHARII 6 HOME HOME R MEDICAL MEDICAL EQUIPME EQUIPME [facility] BED E0260 REID MATHEWS SEMI-ELEC 6 [...] TYPE SIDE EQUIPME EQUIPME RAIL W/MATTRSS BASIC 35759 ZACK DIXON METABOLIC 6 [facility] PANEL INC INC CALCIUM TOTAL COLLECTIO 91969 ZACK DIXON N VENOUS 6 [facility] BLOOD INC INC VENIPUNCT URE LIPID 81053 ZACK DIXON PANEL 6 [facility] INC INC HEMOGLOBI 64942 ZACK DIXON N 6 [facility] GLYCOSYLA INC INC ALEX A1C HOS BED E0260 REID REID SEMI-ELEC 6 HOME HOME W/ANY MEDICAL MEDICAL TYPE SIDE EQUIPME EQUIPME RAIL W/MATTRSS STANDARD K0001 REID GLASSRELL WHEELCHAI 6 HOME HOME R MEDICAL MEDICAL EQUIPME EQUIPME URNLS DIP 35580 ZACK DIXON 6 [facility] [...] STRIPS HOME BLD GLU MON-50 GLUC BLD 39871 ZACK DIXON GLUC MNTR 6 [facility] DEV INC INC CLEARED FDA SPEC HOME USE HOSPITAL G0378 ZACK DIXON OBSERVATI 6 [facility] ON INC INC SERVICE PER HOUR OBSERVATI 74282 [facility] [address] [place] [address] DISCHARGE [facility] T BAS[facility] 47572 ZACK DIXON METABOLIC 6 [facility] PANEL INC INC CALCIUM [facility] G0378 ZACK DIXON OBSERVATI 6 [facility] ON INC INC SERVICE PER HOUR COLLECTIO 83631 ZACK DIXON N VENOUS 6 [facility] BLOOD INC INC VENIPUNCT URE BLOOD 94921 ZACK DIXON COUNT 6 [facility] COMPLETE INC INC AUTO&[place] [address] ZACK DIXON TROPONIN 6 [facility] QUANTITAT INC INC MARIBEL GLUC BLD 04439 ZACK DIXON GLUC MNTR 6 [facility] DEV INC [place] [address] ZACK DIXON TROPONIN 6 [facility] QUANTITAT INC INC MARIBEL GLUC BLD 00226 ZACK DIXON GLUC MNTR 6 [facility] DEV INC INC CLEARED FDA SPEC HOME USE ECG 64074 ZACK BARRETO JR ROUTINE 6 [facility] W/LEAST P 12 LDS I&R ONLY INITIAL 58538 MELISA MCLEAN OBSERV[address] TRACY ON INTERNAL CARE/DAY MED 30 MINUTES GROUND [facility]0425 [facility] [place] [address] ZACK DIXON INFUSION 6 [facility] THERAPY/P INC INC ROPHYLAXI S /DX 1ST TO 1 HR URNLS DIP 86898 ZACK DIXON 6 [facility] STICK/TAB INC INC LET REAGENT AUTO MICROSCOP Y THERAPEUT 18881 ZACK DIXON IC 6 [facility] INJECTION INC INC IV PUSH EACH NEW DRUG BLOOD 36253 ZACK DIXON COUNT 6 [facility] COMPLETE INC INC AUTO&AUTO DIFRNTL WBC COMPREHEN 19919 ZACKSHANDA DIXON SIVE 6 [facility] METABOLIC INC INC PANEL CREATINE 52585 ZACK DIXON KINASE MB 6 [facility] FRACTION INC INC ONLY INJECTION J2405 ZACK ZACK 6 [facility] ONDANSETR INC INC ON HCL PER 1 [facility] G0378 ZACK ZACK OBSERVATI 6 [facility] ON INC INC SERVICE PER HOUR COLLECTIO 75806 ZACK DIXON N VENOUS 6 [facility] BLOOD INC INC VENIPUNCT URE RADIOLOGI 35612 ZACK ZACK C 6 [facility] EXAMINATI INC INC [place] [address] ZACK DIXON HEAD/BRAI 6 [facility] N W/O INC INC CONTRAST MATERIAL AMB A0427 [facility] SERVICE 6 AMBULANCE AMBULANCE ALS SERVICE SERVICE EMERGENCY TRANSPORT LEVEL 1 CREATINE 00523 ZACK DIXON KINASE 6 [facility] [place] [address] ZACK DIXON LIPASE 6 [facility] INC INC ECG 83847 ZACK DIXON ROUTINE 6 [facility] ECG INC INC W/LEAST 12 LDS TRCG ONLY W/O I&R BASIC 96601 COMBINED COMBINED METABOLIC 6 PHYSICIAN PHYSICIAN PANEL [place] [address] COMBINED COMBINED BLOOD/URI 6 PHYSICIAN [place]IC[place] [address] COMBINED COMBINED MAGNESIUM 6 PHYSICIAN PHYSICIAN S LA S LA CYANOCOBA 44180 COMBINED COMBINED SOHA 6 PHYSICIAN PHYSICIAN VITAMIN S LA S LA B-12 [place] [address] COMBINED COMBINED PHOSPHORU 6 PHYSICIAN PHYSIC[place] [address] COMBINED COMBINED THYROID 6 PHYSICIAN PHYSICIAN STIMULATI S LA S LA NG HORMONE TSH ALBUMIN 01204 COMBINED COMBINED SERUM 6 PHYSICIAN PHYSICIAN PLASMA/WH S LA S LA OLE BLOOD BLOOD 32636 COMBINED COMBINED COUNT 6 PHYSICIAN PHYSICIAN COMPLETE S LA S LA AUTO&AUTO DIFRNTL WBC STANDARD K0001 REID LOMAS 6 HOME HOME R MEDICAL MEDICAL EQUIPME EQUIPME HOS BED E0260 REID MATHEWS SEMI-ELEC 6 HOME HOME W/ANY MEDICAL MEDICAL TYPE SIDE EQUIPME EQUIPME RAIL W/MATTRSS PHYS G0179 [facility] RE-CERT 6 [facility] M[facility]-COVR INTERNAL [facility] SRVC RE-CERT PRD COMPREHEN 67661 ZACK ZACK SIVE 6 [facility] METABOLIC INC INC PANEL GLUC BLD 96004 ZACK DIXON GLUC MNTR 6 [facility] DEV INC INC CLEARED FDA SPEC HOME USE BLOOD 36153 ZACK ZACK COUNT 6 [facility] COMPLETE INC INC AUTO&AUTO DIFRNTL WBC URNLS DIP 72504 ZACK ZACK 6 [facility] STICK/TAB INC INC LET REAGENT AUTO MICROSCOP Y AMBULANCE A0429 [facility] SERVICE 6 AMBULANCE AMBULANCE BLS SERVICE SERVICE EMERGENCY TRANSPORT GROUND A0425 [facility] MILEAGE 6 AMBULANCE AMBULANCE PER SERVICE SERVICE STATUTE MILE SBSQ 50823 [facility] N[facility]SING 6 [facility] INTERNAL CARE/DAY MED NEW PROBLEM 25 MIN SBSQ 52448 [facility] NURSING 6 [facility] INTERNAL CARE/DAY MEDI MINOR COMPLJ 15 MIN HOS BED E0260 REID MATHEWS SEMI-ELEC 6 HOME HOME W/ANY MEDICAL MEDICAL TYPE SIDE EQUIPME EQUIPME RAIL W/MATTRSS STANDARD K0001 REID LOMAS 6 HOME HOME R MEDICAL MEDICAL EQUIPME EQUIPME RADEX 28176 SYMPHONY SYMPHONY SPINE 6 MOBILEX MOBILEX THORACIC 2 VIEWS RADEX 63174 SYMPHONY SYMPHONY SPINE 6 MOBILEX MOBILEX CERVICAL 2 OR 3 VIEWS SBSQ 90592 [facility] 6 [facility] INTERNAL CARE/DAY MED NEW PROBLEM 25 MIN STANDARD K0001 REID CHAUDHARII 5 HOME HOME R MEDICAL MEDICAL EQUIPME EQUIPME HOS BED E0260 REID MATHEWS SEMI-ELEC 5 HOME HOME W/ANY MEDICAL MEDICAL TYPE SIDE EQUIPME EQUIPME RAIL W/MATTRSS CULTURE 18269 ZACK DIXON BACTERIAL 5 [facility] INC INC QUANTTATI VE COLONY COUNT URINE AMB A0427 [facility] SERVICE 5 AMBULANCE AMBULANCE ALS SERVICE SERVICE EMERGENCY TRANSPORT LEVEL 1 COMPREHEN 17004 ZACK ELLIOTTON SIVE 5 [facility] METABOLIC INC INC PANEL GROUND A0425 [facility] HERNANDEZ MILEAGE 5 AMBULANCE AMBULANCE PER SERVICE SERVICE STATUTE MILE NATRIURET 65093 ZACK DIXON IC 5 [facility] PEPTIDE INC INC BLOOD 38867 ZACK ZACK COUNT 5 [facility] COMPLETE INC INC AUTO&AUTO DIFRNTL WBC SUSCEPTIB 55477 ZACK ELLIOTTON LTY STDY 5 [facility] ANTIMICRB INC INC IAL MICRO/AGA R DILUTJ URNLS DIP 21241 ZACK DIXON 5 [facility] STICK/TAB INC INC LET REAGENT AUTO MICROSCOP Y RADIOLOGI 87686 ZACK Lopez EXAM 5 [facility] CHEST 2 INC INC VIEWS FRONTAL&L ATERAL PRESSURIZ 63838 ZACK DIXON ED/NONPRE 5 [facility] SSURIZED INC INC INHALATIO N TREATMENT HOS BED E0260 REID MATHEWS SEMI-ELEC 5 HOME HOME W/ANY MEDICAL MEDICAL TYPE SIDE EQUIPME EQUIPME RAIL W/MATTRSS STANDARD K0001 REID DELGADILLOCHAI 5 HOME HOME R MEDICAL MEDICAL EQUIPME EQUIPME SBSQ 70873 [facility] 5 CULAR MAT CARE/DAY CONSULTAN 25 TS O MINUTES INITIAL 71991 [facility] 5 CULAR MAT CARE/DAY CONSULTAN 70 TS O MINUTES ECHO 21003 [facility] POSADAOR 5 MEDICAL JUAN J C R-T 2D SERV W/WO FOUNDATIO M-MODE N REC F-UP/LMTD RADIOLOGI 75616 LIZZ Lopez EXAM 5 MEDICAL MELIDA CHEST 2 IMAGING VIEWS ASS FRONTAL&L ATERAL HOS BED E0260 REID MATHEWS SEMI-ELEC 5 HOME HOME W/ANY MEDICAL MEDICAL TYPE SIDE EQUIPME EQUIPME RAIL W/MATTRSS STANDARD K0001 REID CHAUDHARII 5 HOME HOME R MEDICAL MEDICAL EQUIPME EQUIPME THERAPEUT 42104 ZACK DIXON IC PX 1/> 5 [facility] AREAS INC INC EACH 15 MIN EXERCISES NORMAL A4256 ARRIVA ARRIVA LOW AND 5 MEDICAL MEDICAL HIGH CALIBRATO R SOLUTION/ CHIPS LANCETS A4259 ARRIVA ARRIVA PER BOX 5 MEDICAL MEDICAL OF 100 BLD GLU A4253 ARRIVA ARRIVA TEST/REAG 5 MEDICAL MEDICAL T STRIPS HOME BLD GLU MON-50 URNLS DIP 93354 ZACK CALDERON 5 [facility] LET RGNT P NON-AUTO W/O MICRSCP THERAPEUT 90843 ZACK DIXON IC PX 1/> 5 [facility] AREAS INC INC EACH 15 MIN EXERCISES STANDARD K0001 REID REIDJOHN DELGADILLOCHAI 5 HOME HOME R MEDICAL MEDICAL EQUIPME EQUIPME HOS BED E0260 REID MATHEWS SEMI-ELEC 5 HOME HOME W/ANY MEDICAL MEDICAL TYPE SIDE EQUIPME EQUIPME RAIL W/MATTRSS THERAPEUT 42037 ZACK DIXON IC PX 1/> 5 [facility] AREAS INC INC EACH 15 MIN EXERCISES COLLECTIO 56483 ZACK DIXON N VENOUS 5 [facility] [place] [address] ZACK DIXON THYROID 5 [facility] STIMULATI INC INC NG HORMONE TSH 25 45731 ZACK DIXON HYDROXY 5 [facility] INCLUDES INC INC FRACTIONS IF PERFORMED THERAPEUT 59765 ZACK DIXON IC PX 1/> 5 [facility] AREAS INC INC EACH 15 MIN EXERCISES CULTURE 12702 ZACK DIXON BACTERIAL 5 [facility] INC INC QUANTTATI VE COLONY COUNT URINE CULTURE 28864 ZACK DIXON BCT 5 [facility] ISOL&PRSM INC INC PTV ID ISOLATE EA URINE RENAL 00408 ZACK DIXON FUNCTION 5 [facility] PANEL INC INC HEMOGLOBI 01144 ZACK DIXON N 5 [facility] GLYCOSYLA INC INC ALEX A1C BLOOD 13995 ZACKSHANDA ELLIOTTON COUNT 5 [facility] COMPLETE INC INC AUTO&AUTO DIFRNTL WBC SUSCEPTIB 50677 ZACK DIXON LTY STDY 5 [facility] ANTIMICRB INC INC IAL MICRO/AGA R DILUTJ URNLS DIP 11994 ZACK DIXON 5 [facility] STICK/TAB INC INC LET REAGENT AUTO MICROSCOP Y THERAPEUT 70534 ZACKSHANDA DIXON IC PX 1/> 5 [facility] AREAS INC INC EACH 15 MIN EXERCISES THERAPEUT 77012 ZACK DIXON IC PX 1/> 5 [facility] AREAS INC INC EACH 15 MIN EXERCISES THERAPEUT 80526 ZACK DIXON IC PX 1/> 5 [facility] AREAS INC INC EACH 15 MIN EXERCISES THERAPEUT 45340 ZACK DIXON IC PX 1/> 5 [facility] AREAS INC INC EACH 15 MIN EXERCISES PHYSICAL 70138 ZACK DIXON THERAPY 5 [facility] EVALUATIO INC INC N CATH CLCT P9612 ZACK CALDERON SPECIMEN 5 [facility] PT ALL P PLACES SERVICE URNLS DIP 60986 ZACK ALVARADOKINS 5 [facility] LET RGNT P NON-AUTO W/O MICRSCP CULTURE 75303 ZACK DIXON BACTERIAL 5 [facility] INC INC QUANTTATI VE COLONY COUNT URINE CULTURE 78577 ZACK DIXON BCT 5 [facility] ISOL&PRSM INC INC PTV ID ISOLATE EA URINE SUSCEPTIB 15187 ZACK ZACK LTY STDY 5 [facility] [...] TYPE SIDE EQUIPME EQUIPME RAIL W/MATTRSS CULTURE 57199 ZACK DIXON BACTERIAL 5 [facility] INC INC QUANTTATI VE COLONY COUNT URINE CULTURE 81984 ZACK DIXON BCT 5 [facility] ISOL&PRSM INC INC PTV ID ISOLATE EA URINE ONELIA 56961 ZACK CALDERON POST-VOID 5 [facility] RESIDUAL P URINE&/BL ADDER CAP SUSCEPTIB 36155 ZACK DIXON LTY STDY 5 [facility] ANTIMICRB INC INC IAL MICRO/AGA R DILUTJ RADIOLOGI 60344 SYMPHONY SYMPHONY C 5 MOBILEX MOBILEX EXAMINATI ON CHEST SINGLE VIEW FRONTAL RADIOLOGI 71128 SYMPHONY SYMPHONY C 5 MOBILEX MOBILEX EXAMINATI ON CHEST SINGLE VIEW FRONTAL DEBRIDEME 11263 [facility] [place] NT NAIL 5 ARE ANDREZ ANY METHOD 6/> INITIAL 58675 [facility] [place] NURSING 5 ARE ANDREZ FACILITY CARE/DAY 25 MINUTES SBSQ 35320 [facility] 5 [facility] INTERNAL CARE/DAY MED NEW PROBLEM 25 MIN BASIC 57494 COMBINED COMBINED METABOLIC 5 PHYSICIAN PHYSICIAN PANEL S LA S LA CALCIUM TOTAL BLOOD 37017 COMBINED COMBINED COUNT 5 PHYSICIAN PHYSICIAN COMPLETE S LA S [place] AUTO&[place] [address] [facility] [facility] A[facility] 5 MEDICAL KAY REAL IMAGING TIME ASS W/[place] [address] [place] [facility]I ABDOMEN & 5 MEDICAL MELIDA PELVIS IMAGING W/O ASS CONTRAST MATERIAL RADIOLOGI 52121 [place] RODRIGUEZ ALL C 5 MEDICAL EXAMINATI IMAGING ON CHEST ASS SINGLE VIEW FRONTAL ECG 69021 ZACK KESHAWNARIADNA ROUTINE 5 [facility] W/LEAST P 12 LDS I&R ONLY CRITICAL 73948 ZACK DIXON CARE 5 [facility] ED P P PATIENT INIT 30-74 MIN RADEX 82734 [facility] SPINE 5 MEDICAL KAY CERVICAL IMAGING 4 OR 5 ASS VIEWS RADEX 76497 [facility] [facility] MASTOIDS 5 MEDICAL KAY COMPL IMAGING MINIMUM 3 ASS VIEWS IL SIDE SPRING-PO A4258 ARRIVA ARRIVA WERED 5 MEDICAL CLINICAL PRACTICE CONSULTANT FOR LANCET 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 A4259 ARRIVA ARRIVA PER BOX 5 MEDICAL MEDICAL OF 100 NORMAL A4256 ARRIVA ARRIVA LOW AND 5 MEDICAL MEDICAL HIGH CALIBRATO R SOLUTION/ CHIPS BLD GLU A4253 ARRIVA ARRIVA TEST/REAG 5 MEDICAL MEDICAL T STRIPS HOME BLD GLU MON-50 COMPREHEN 94763 COMBINED COMBINED SIVE 5 PHYSICIAN PHYSICIAN METABOLIC S LA S LA PANEL COLLECTIO 72116 ZACK DIXON N VENOUS 5 [facility] BLOOD INC INC VENIPUNCT URE RENAL 33303 ZACK DIXON FUNCTION 5 [facility] PANEL INC INC INJECTION J0897 ZACK DIXON 5 [facility] DENOSUMAB INC INC 1 MG THERAPEUT 24213 ZACK DIXON IC 5 [facility] PROPHYLAC INC INC TIC/DX INJECTION SUBQ/IM COLLECTIO 22595 ZACK DIXON N VENOUS 4 [facility] BLOOD INC INC VENIPUNCT URE CREATININ 27239 ZACK DIXON E OTHER 4 [facility] SOURCE INC INC DXA BONE 00380 ZACK DIXON DENSITY 4 [facility] STUDY 1/> INC INC SITES AXIAL SKEL CULTURE 70760 ZACK DIXON BACTERIAL 4 [facility] INC INC QUANTTATI VE COLONY COUNT URINE CULTURE 82223 ZACK DIXON BCT 4 [facility] ISOL&PRSM INC INC PTV ID ISOLATE EA URINE 25 13989 ZACK DIXON HYDROXY 4 [facility] INCLUDES [place] [address] ZACK DIXON PARATHORM 4 [facility] ONE INC INC RENAL 88901 ZACK DIXON FUNCTION 4 [facility] PANEL INC INC PROTEIN 30055 ZACK DIXON XCPT 4 [facility] REFRACTOM INC INC ETRY SERUM PLASMA/WH L BLD BLOOD 99383 ZACK DIXON COUNT 4 [facility] COMPLETE INC INC AUTO&AUTO DIFRNTL WBC SUSCEPTIB 42593 ZACK DIXON LTY STDY 4 [facility] ANTIMICRB INC INC IAL MICRO/AGA R DILUTJ URNLS DIP 86207 ZACK DIXON 4 [facility] STICK/TAB INC INC LET REAGENT AUTO MICROSCOP Y COMPREHEN 92582 COMBINED COMBINED SIVE 4 PHYSICIAN PHYSICIAN METABOLIC S LA S LA PANEL CREATINE 59403 ZACK DIXON KINASE MB 4 [facility] FRACTION INC INC ONLY CREATINE 16845 ZACK DIXON KINASE 4 [facility] [place] [address] ZACK DIXON TROPONIN 4 [facility] QUANTITAT INC INC MARIBEL BLOOD 86767 ZACK DIXON COUNT 4 [facility] COMPLETE INC INC AUTO&AUTO DIFRNTL WBC URNLS DIP 72770 ZACK DIXON 4 [facility] STICK/TAB INC INC LET REAGENT AUTO MICROSCOP Y RADIOLOGI 47022 ZACK DIXON C EXAM 4 [facility] CHEST 2 INC INC VIEWS FRONTAL&L ATERAL PRESSURIZ 99436 ZACK DIXON ED/NONPRE 4 [facility] SSURIZED INC INC INHALATIO N TREATMENT COMPREHEN 28836 ZACK DIXON SIVE 4 [facility] METABOLIC INC INC PANEL COLLECTIO 57046 ZACK Yoo VENOUS 4 [facility] BLOOD INC INC VENIPUNCT URE RENAL 20619 ZACK DIXON FUNCTION 4 [facility] PANEL INC INC BLOOD 85671 ZACK DIXON COUNT 4 [facility] COMPLETE INC INC AUTO&AUTO DIFRNTL WBC 25 89753 ZACK DIXON HYDROXY 4 [facility] INCLUDES INC INC FRACTIONS IF PERFORMED THERAPEUT 12471 ZACK DIXON IC 4 [facility] PROPHYLAC INC INC TIC/DX INJECTION SUBQ/IM INJECTION J0897 ZACK DIXON 4 [facility] DENOSUMAB INC INC 1 MG BASIC 45264 COMBINED COMBINED METABOLIC 4 PHYSICIAN PHYSICIAN PANEL S LA S LA CALCIUM TOTAL COMPREHEN 28344 COMBINED COMBINED SIVE 4 PHYSICIAN PHYSICIAN METABOLIC S LA S LA PANEL COLLECTIO 15039 ZACK DIXON N VENOUS 4 [facility] BLOOD INC INC VENIPUNCT URE BASIC 01481 ZACK DIXON METABOLIC 4 [facility] PANEL INC INC CALCIUM TOTAL THERAPEUT 00234 ZACK DIXON IC 4 [facility] PROPHYLAC INC INC TIC/DX INJECTION SUBQ/IM INJECTION J0897 ZACK DIXON 4 [facility] DENOSUMAB INC INC 1 MG ARTHROCEN 24353 [facility] TESIS 3 PHYSICIAN JAM ASPIR&/IN S GROUP J MAJOR JT/BURSA W/O US INJECTION 47312 [facility] 1 TENDON 3 PHYSICIAN PHYSICIAN S GROUP S GROUP SHEATH/LI GAMENT APONEUROS IS INJ J0702 [facility] BETAMETHA 3 PHYSICIAN TONI SONE S GROUP ACETATE & PHOSPHATE 3 MG BASIC 17288 COMBINED COMBINED METABOLIC 3 PHYSICIAN PHYSICIAN PANEL S LA S LA CALCIUM TOTAL ALBUMIN 44886 ZACK DIXON URINE 3 [facility] MICROALBU INC INC MIN QUANTIATI VE 25 16109 ZACK DIXON HYDROXY 3 [facility] INCLUDES [place] [address] ZACK DIXON PARATHORM 3 [facility] ONE INC INC DXA BONE 05731 [place] [facility] 3 MEDICAL MELIDA STUDY 1/> IMAGING SITES ASS AXIAL SKEL COLLECTIO 52330 ZACK DIXON N VENOUS 3 [facility] BLOOD INC INC VENIPUNCT URE RENAL 10405 ZACK DIXON FUNCTION 3 [facility] PANEL INC INC BLOOD 98418 ZACK DIXON COUNT 3 [facility] COMPLETE INC INC AUTO&AUTO DIFRNTL WBC URNLS DIP 59063 ZAKC DIXON 3 [facility] STICK/TAB INC INC LET REAGENT AUTO MICROSCOP Y RADIOLOGI 53010 [place] SH[facility]I C EXAM 3 MEDICAL MELIDA CHEST 2 IMAGING VIEWS [place] FRONTAL&[place] [address] ZACK DIXON STREPTOCO 3 [facility] CCUS INC INC GROUP A IAADI 25589 ZACK DIXON INFLUENZA 3 [facility] B VIRUS INC INC IAADI 26716 ZACK DIXON INFFLUENZ 3 [facility] A A VIRUS INC INC CUL BACT 79190 ZACK DIXON XCPT 3 [facility] URINE INC INC BLOOD/STO OL AEROBIC ISOL BASIC 34819 COMBINED COMBINED METABOLIC 3 PHYSICIAN PHYSICIAN PANEL [place] [address] COMBINED COMBINED BLOOD/URI 3 PHYSICIAN PHYSICIAN C ACID S LA S LA CREATINE 39393 ZACK DIXON KINASE 3 [facility] TOTAL INC INC FIBRIN 35337 ZACK DIXON DGRADJ 3 [facility] PRODUCTS INC INC D-DIMER QUAL/SEMI BARB TECHNETIU A9540 ZACK Flanagan TC-99M 3 [facility] MAA DX INC INC STDY DOSE UP TO 10 MCI THER 04993 ZACK DIXON PROPH/DX 3 [facility] NJX IV INC INC PUSH SINGLE/1S T SBST/DRUG ECG 37939 ZACK DIXON ROUTINE 3 [facility] ECG INC INC W/LEAST 12 LDS TRCG ONLY W/O I&R COMPREHEN 69737 ZACK DIXON SIVE 3 [facility] METABOLIC INC INC PANEL CREATINE 59870 ZACK DIXON KINASE MB 3 [facility] FRACTION INC INC ONLY TECHNETIU A9567 ZACK Flanagan TC-99M 3 [facility] PENTETATE INC INC DX AEROSOL TO 75 MCI ECG 76272 EMEKA LIRA ROUTINE 3 EMERGENCY ECG SERVICES W/LEAST 12 LDS I&R ONLY RHYTHM 43021 ZACK DIXON ECG 1-3 3 [facility] LEADS INC INC TRACING ONLY W/O I&[place] [address] ZACK DIXON TROPONIN 3 [facility] QUANTITAT INC INC MARIBEL BLOOD 42048 ZACK DIXON COUNT 3 [facility] COMPLETE INC INC AUTO&AUTO DIFRNTL WBC RADIOLOGI 41239 ZACK DIXON C EXAM 3 [facility] CHEST 2 INC INC VIEWS FRONTAL&L ATERAL PULMONARY 64711 ZACK DIXON 3 [facility] VENTILATI INC INC ON & PERFUSION IMAGING RADIOLOGI 61460 ZACK DIXON C 3 [facility] EXAMINATI INC INC ON CHEST SINGLE VIEW FRONTAL COLLECTIO 95140 ZACK DIXON N VENOUS 3 [facility] BLOOD INC INC VENIPUNCT URE RENAL 60052 ZACK DIXON FUNCTION 3 [facility] PANEL INC INC BLOOD 18568 ZACK DIXON COUNT 3 [facility] COMPLETE INC INC AUTO&AUTO DIFRNTL WBC INJECTION J0897 ZACK DIXON 3 [facility] DENOSUMAB INC INC 1 MG THERAPEUT 34083 ZACK DIXON IC 3 [facility] PROPHYLAC INC INC TIC/DX INJECTION SUBQ/IM APPLICATI 07911 ZACK DIXON ON 3 [facility] MODALITY INC INC 1/> AREAS HOT/COLD PACKS E-STIM G0283 ZACK DIXON 1/> AREAS 3 [facility] OTH THAN INC INC WND CARE PART TX PLAN APPL 93637 ZACK DIXON MODALITY 3 [facility] 1/> AREAS INC INC 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 89406 ZACK DIXON IC PX 1/> 3 [facility] AREAS INC INC EACH 15 MIN EXERCISES THERAPEUT 18758 ZACK DIXON IC PX 1/> 3 [facility] AREAS INC INC EACH 15 MIN EXERCISES APPL 72282 ZACK DIXON MODALITY 3 [facility] 1/> AREAS INC INC 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 G0283 ZACK DIXON 1/> AREAS 3 [facility] OTH THAN INC INC WND CARE PART TX PLAN APPLICATI 96997 ZACK DIXON ON 3 [facility] MODALITY INC INC 1/> AREAS HOT/COLD PACKS E-STIM G0283 ZACK DIXON 1/> AREAS 3 [facility] OTH THAN INC INC WND CARE PART TX PLAN APPLICATI 07988 ZACK DIXON ON 3 [facility] MODALITY INC INC 1/> AREAS HOT/COLD PACKS APPL 57872 ZACK ZACK MODALITY 3 [facility] 1/> AREAS INC INC 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 04513 ZACK DIXON IC PX 1/> 3 [facility] AREAS INC INC EACH 15 MIN EXERCISES THERAPEUT 34537 ZACK DIXON IC PX 1/> 3 [facility] AREAS INC INC EACH 15 MIN EXERCISES APPL 53467 ZACK DIXON MODALITY 3 [facility] 1/> AREAS INC INC IONTOPHOR ESIS EA 15 MIN APPLICATI 55263 ZACK ZACK ON 3 [facility] MODALITY INC INC 1/> AREAS HOT/COLD PACKS E-STIM G0283 ZACK DIXON 1/> AREAS 3 [facility] OTH THAN INC INC WND CARE PART TX PLAN E-STIM G0283 ZACK DIXON 1/> AREAS 3 [facility] OTH THAN INC INC WND CARE PART TX PLAN THERAPEUT 07168 ZACK DIXON IC PX 1/> 3 [facility] AREAS INC INC EACH 15 MIN EXERCISES THERAPEUT 51853 ZACK DIXON IC PX 1/> 3 [facility] AREAS INC INC EACH 15 MIN EXERCISES APPL 06478 ZACK DIXON MODALITY 3 [facility] 1/> AREAS INC INC 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 G0283 ZACK DIXON 1/> AREAS 3 [facility] OTH THAN INC INC WND CARE PART TX PLAN APPLICATI 07854 ZACK DIXON ON 3 [facility] MODALITY INC INC 1/> AREAS HOT/COLD PACKS CULTURE 14427 COMBINED COMBINED BACTERIAL 3 PHYSICIAN PHYSICIAN S LA S LA QUANTTATI VE COLONY COUNT URINE APPLICATI 11550 ZACK DIXON ON 3 [facility] MODALITY INC INC 1/> AREAS HOT/COLD PACKS E-STIM G0283 ZACK DIXON 1/> AREAS 3 [facility] OTH THAN INC INC WND CARE PART TX PLAN APPL 32425 ZACK DIXON MODALITY 3 [facility] 1/> AREAS INC INC 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 19247 ZACK ZACK IC PX 1/> 3 [facility] [facility] EACH 15 MIN EXERCISES THERAPEUT 42105 ZACK ZACK IC PX 1/> [facility] EACH 15 MIN EXERCISES THERAPEUT 17306 ZACK ZACK IC PX 1/> 3 [facility] INC EACH 15 MIN EXERCISES APPL 19522 ZACK DIXON MODALITY 3 [facility]/> AREAS INC INC 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 G0283 ZACK DIXON 1/> [facility] OTH THAN INC INC WND CARE PART TX PLAN APPL 80300 ZACK DIXON MODALITY 3 [facility]/> AREAS INC INC ULTRASOUN D EA 15 MIN E-STIM G0283 ZACK DIXON 1/> AREAS [facility] OTH THAN INC INC WND CARE PART TX PLAN APPLICATI 09360 ZACK DIXON ON 3 [facility] MODALITY INC INC 1/> AREAS HOT/COLD PACKS APPL 71339 ZACK DIXON MODALITY 3 [facility]/> AREAS INC INC 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 91373 ZACK DIXON IC PX 1/> [facility] INC INC EACH 15 MIN EXERCISES THERAPEUT 50297 ZACK ZACK IC PX 1/> 3 [facility] INC INC EACH 15 MIN EXERCISES APPL 56583 ZACK DIXON MODALITY 3 [facility]/> AREAS INC INC IONTOPHOR ESIS EA 15 MIN APPLICATI 58768 ZACK DIXON ON 3 [facility] MODALITY INC INC 1/> AREAS HOT/COLD PACKS E-STIM G0283 ZACK DIXON 1/> [facility] OTH THAN INC INC WND CARE PART TX PLAN E-STIM G0283 ZACK DIXON 1/> AREAS [facility] OTH THAN INC INC WND CARE PART TX PLAN APPLICATI 49528 ZACK DIXON ON 3 [facility] MODALITY INC INC 1/> AREAS HOT/COLD PACKS APPL 06716 ZACK DIXON MODALITY 3 [facility]/> AREAS INC INC ULTRASOUN D EA 15 MIN APPL 79871 ZACK DIXON MODALITY 3 [facility] 1/> AREAS INC INC 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 11607 ZACK DIXON IC PX 1/> 3 [facility] INC INC EACH 15 MIN EXERCISES THERAPEUT 54221 ZACK DIXON IC PX 1/> 3 [facility] INC INC EACH 15 MIN EXERCISES APPL 04493 ZACK DIXON MODALITY 3 [facility]/> AREAS INC INC IONTOPHOR ESIS EA 15 MIN APPL 80101 ZACK DIXON MODALITY 3 [facility]/> AREAS INC INC ULTRASOUN D EA 15 MIN E-STIM G0283 ZACK DIXON 1/> AREAS [facility] OTH THAN INC INC WND CARE PART TX PLAN E-STIM G0283 ZACK DIXON 1/> [facility]AS [facility] OTH THAN INC INC WND CARE PART TX PLAN RENAL 30517 ZACK DIXON FUNCTION 3 [facility] PANEL INC INC BLOOD 43808 ZACK ZACK COUNT 3 [facility] COMPLETE INC INC AUTO&AUTO DIFRNTL WBC SUSCEPTIB 37270 ZACK DIXON LTY STDY 3 [facility] ANTIMICRB INC INC IAL MICRO/AGA R DILUTJ URNLS DIP 78442 ZACK DIXON 3 [facility] STICK/TAB INC INC LET REAGENT AUTO MICROSCOP Y APPL 86284 ZACK DIXON MODALITY 3 [facility]/> AREAS INC INC ULTRASOUN D EA 15 MIN CULTURE 26801 ZACK DIXON BACTERIAL 3 [facility] INC INC QUANTTATI VE COLONY COUNT URINE CULTURE 65905 ZACK DIXON BCT 3 [facility] ISOL&PRSM INC INC PTV ID ISOLATE EA URINE THERAPEUT 98532 ZACK DIXON IC PX 1/> 3 [facility] INC INC EACH 15 MIN EXERCISES 25 47389 ZACK DIXON HYDROXY 3 [facility] INCLUDES [place] [address] ZACK DIXON PARATHORM 3 [facility] ONE INC INC PROTEIN 05089 ZACK DIXON ELECTROPH 3 [facility] ORETIC INC INC FRACTJ&QU ANTJ SERUM APPL 51601 ZACK DIXON MODALITY 3 [facility]/> AREAS INC INC IONTOPHOR ESIS EA 15 MIN COLLECTIO 35104 ZACK DIXON N VENOUS 3 [facility] [place] [address] ZACK DIXON NEPHELOME 3 [facility] TRY EACH INC INC ANALYTE YANELY APPL 52134 ZACK DIXON MODALITY 3 [facility]/> AREAS INC INC 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 64509 ZACK DIXON IC PX 1/> 3 [facility] INC INC EACH 15 MIN EXERCISES APPLICATI 90433 ZACK ZACK ON 3 [facility] MODALITY INC INC 1/> AREAS HOT/COLD PACKS E-STIM G0283 ZACK ZACK 1/> AREAS 3 [facility] OTH THAN INC INC WND CARE PART TX PLAN E-STIM G0283 ZACKSHANDA DIXON 1/> AREAS 3 [facility] OTH THAN INC INC WND CARE PART TX PLAN APPLICATI 08911 ZACK DIXON ON 3 [facility] MODALITY INC INC 1/> AREAS HOT/COLD PACKS APPL 10222 ZACK ZACK MODALITY 3 [facility] 1/> AREAS INC INC ULTRASOUN D EA 15 MIN THERAPEUT 63689 ZACK ZACK IC PX 1/> 3 [facility] INC INC EACH 15 MIN EXERCISES APPL 54097 ZACK DIXON MODALITY 3 [facility]/> AREAS INC INC IONTOPHOR ESIS EA 15 MIN APPL 52909 ZACK DIXON MODALITY 3 [facility] 1/> AREAS INC INC 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 18064 ZACK DIXON IC PX 1/> 3 [facility] INC INC EACH 15 MIN EXERCISES APPL 81464 ZACK DIXON MODALITY 3 [facility] 1/> AREAS INC INC ULTRASOUN D EA 15 MIN E-STIM G0283 ZACK ZACK 1/> AREAS 3 [facility] OTH THAN INC INC WND CARE PART TX PLAN E-STIM G0283 ZACK ZACK 1/> AREAS 3 [facility] OTH THAN INC INC WND CARE PART TX PLAN APPL 26327 ZACK DIXON MODALITY 3 [facility] 1/> AREAS INC INC ULTRASOUN D EA 15 MIN APPLICATI 44550 ZACK DIXON ON 3 [facility] MODALITY INC INC 1/> AREAS HOT/COLD PACKS THERAPEUT 62982 ZACK DIXON IC PX 1/> 3 [facility] INC INC EACH 15 MIN EXERCISES APPL 43618 ZACK DIXON MODALITY 3 [facility] 1/> AREAS INC INC IONTOPHOR ESIS EA 15 MIN APPL 32735 ZACK DIXON MODALITY 3 [facility] 1/> AREAS INC INC 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 39977 ZACK DIXON IC PX 1/> 3 [facility] INC INC EACH 15 MIN EXERCISES APPL 11390 ZACK DIXON MODALITY 3 [facility]/> AREAS INC INC ULTRASOUN D EA 15 MIN BASIC 35705 COMBINED COMBINED METABOLIC 3 PHYSICIAN PHYSICIAN PANEL S LA S LA CALCIUM TOTAL APPL 53209 ZACK DIXON MODALITY 3 [facility]/> AREAS INC INC ULTRASOUN D EA 15 MIN E-STIM G0283 ZACK DIXON 1/> AREAS 3 [facility] OTH THAN INC INC WND CARE PART TX PLAN THERAPEUT 20588 ZACK DIXON IC PX 1/> 3 [facility]AS INC INC EACH 15 MIN EXERCISES APPL 08567 ZACK DIXON MODALITY 3 [facility] 1/> AREAS INC INC IONTOPHOR ESIS EA 15 MIN APPL 76911 ZACK DIXON MODALITY 3 [facility]/> AREAS INC INC 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 69156 ZACK DIXON IC PX 1/> 3 [facility]AS INC INC EACH 15 MIN EXERCISES E-STIM G0283 ZACK DIXON 1/> AREAS 3 [facility] OTH THAN INC INC WND CARE PART TX PLAN APPL 24263 ZACK DIXON MODALITY 3 [facility]/> AREAS INC INC ULTRASOUN D EA 15 MIN APPL 52240 ZACK DIXON MODALITY 3 [facility]/> AREAS INC INC ULTRASOUN D EA 15 MIN APPLICATI 54293 ZACK DIXON ON 3 [facility] MODALITY INC INC 1/> AREAS HOT/COLD PACKS E-STIM G0283 ZACK DIXON 1/> AREAS 3 [facility] OTH THAN INC INC WND CARE PART TX PLAN THERAPEUT 90850 ZACK DIXON IC PX 1/> 3 [facility] INC INC EACH 15 MIN EXERCISES THERAPEUT 30653 ZACK DIXON IC PX 1/> [facility] INC INC EACH 15 MIN EXERCISES E-STIM G0283 ZACK DIXON 1/> AREAS 3 [facility] OTH THAN INC INC WND CARE PART TX PLAN APPL 30841 ZACK DIXON MODALITY 3 [facility] 1/> AREAS INC INC ULTRASOUN D EA 15 MIN E-STIM G0283 ZACK DIXON 1/> AREAS 3 [facility] OTH THAN INC INC WND CARE PART TX PLAN THERAPEUT 23746 ZACK DIXON IC PX 1/> 3 [facility]AS INC INC EACH 15 MIN EXERCISES APPL 13412 ZACK DIXON MODALITY 3 [facility] 1/> AREAS INC INC 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 61627 ZACK DIXON IC PX 1/> 3 [facility] AREAS INC INC EACH 15 MIN EXERCISES E-STIM G0283 ZACK DIXON 1/> AREAS 3 [facility] OTH THAN INC INC WND CARE PART TX PLAN APPLICATI 09688 ZACK DIXON ON 3 [facility] MODALITY INC INC 1/> AREAS HOT/COLD PACKS APPL 42984 ZACK DIXON MODALITY 3 [facility] 1/> AREAS INC INC ULTRASOUN D EA 15 MIN E-STIM G0283 ZACK DIXON 1/> AREAS 3 [facility] OTH THAN INC INC WND CARE PART TX PLAN APPL 95719 ZACK DIXON MODALITY 3 [facility] 1/> AREAS INC INC 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 51988 ZACK DIXON IC PX 1/> 3 [facility] INC INC EACH 15 MIN EXERCISES THERAPEUT 74057 ZACK DIXON IC PX 1/> 3 [facility]AS INC INC EACH 15 MIN EXERCISES APPL 80419 ZACK DIXON MODALITY 3 [facility] 1/> AREAS INC INC 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 G0283 ZACK DIXON 1/> AREAS 3 [facility] OTH THAN INC INC WND CARE PART TX PLAN APPLICATI 30812 ZACK DIXON ON 3 [facility] MODALITY INC INC 1/> AREAS HOT/COLD PACKS APPL 11908 ZACK DIXON MODALITY 3 [facility]/> AREAS INC INC ULTRASOUN D EA 15 MIN APPL 57952 ZACK DIXON MODALITY 3 [facility] 1/> AREAS INC INC ULTRASOUN D EA 15 MIN APPLICATI 11780 ZACK DIXON ON 3 [facility] MODALITY INC INC 1/> AREAS HOT/COLD PACKS E-STIM G0283 ZACK DIXON 1/> AREAS 3 [facility] OTH THAN INC INC WND CARE PART TX PLAN APPL 20833 ZACK DIXON MODALITY 3 [facility] 1/> AREAS INC INC 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 04213 ZACK DIXON IC PX 1/> 3 [facility] INC INC EACH 15 MIN EXERCISES APPL 44033 ZACK DIXON MODALITY 3 [facility] 1/> AREAS INC INC 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 G0283 ZACK DIXON 1/> AREAS 3 [facility] OTH THAN INC INC WND CARE PART TX PLAN APPLICATI 78548 ZACK DIXON ON 3 [facility] MODALITY INC INC 1/> AREAS HOT/COLD PACKS APPL 43178 ZACK DIXON MODALITY 3 [facility] 1[facility] AREAS INC INC ULTRASOUN D EA 15 MIN APPL 01253 ZACK DIXON MODALITY 3 [facility] 1/> AREAS INC INC ULTRASOUN D EA 15 MIN APPLICATI 01597 ZACK DIXON ON 3 [facility] MODALITY INC INC 1/> AREAS HOT/COLD PACKS E-STIM G0283 ZACK DIXON 1/> AREAS 3 [facility] OTH THAN INC INC WND CARE PART TX PLAN APPL 38662 ZACK DIXON MODALITY 3 [facility] 1/> AREAS INC INC 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 85788 ZACK DIXON IC PX 1/> 3 [facility] INC INC EACH 15 MIN EXERCISES THERAPEUT 34048 ZACK DIXON IC PX 1/> 3 [facility]AS INC INC EACH 15 MIN EXERCISES APPL 13921 ZACK DIXON MODALITY 3 [facility] 1/> AREAS INC INC IONTOPHOR ESIS EA 15 MIN PHYSICAL 55161 ZACK ZACK THERAPY 3 [facility] EVALUATIO INC INC N APPL 41819 ZACK ZACK MODALITY 3 [facility]/> AREAS INC INC ULTRASOUN D EA 15 MIN APPLICATI 70008 ZACK DIXON ON 3 [facility] MODALITY INC INC 1/> AREAS HOT/COLD PACKS RADEX HIP 51933 [place] SHERI 3 MEDICAL MELIDA UNILATERA IMAGING L ASS COMPLETE MINIMUM 2 VIEWS BASIC 34792 COMBINED COMBINED METABOLIC 3 PHYSICIAN PHYSICIAN [place] [address] COMBINED COMBINED BLOOD/URI 3 PHYSICIAN PHYSICIAN C ACID S LA S LA BASIC 96518 ZACK DIXON METABOLIC 2 [facility] PANEL INC INC CALCIUM TOTAL GLUC BLD 39099 ZACK DIXON GLUC MNTR 2 [facility] DEV INC INC CLEARED FDA SPEC HOME USE BLOOD 01105 ZACK DIXON COUNT 2 [facility] COMPLETE INC INC AUTO&AUTO DIFRNTL [facility] G0378 ZACK DIXON OBSERVATI 2 [facility] ON INC INC SERVICE PER HOUR COLLECTIO 21972 ZACK DIXON N VENOUS 2 [facility] BLOOD INC INC VENIPUNCT URE COLLECTIO 77622 ZACK DIXON N VENOUS 2 [facility] BLOOD INC INC VENIPUNCT URE CREATINE 71244 ZACK DIXON KINASE MB 2 [facility] FRACTION INC INC ONLY TECHNETIU A9567 ZACK DIXON M TC-99M 2 [facility] PENTETATE INC INC DX AEROSOL TO [facility] G0378 ZACK DIXON OBSERVATI 2 [facility] ON INC INC SERVICE PER HOUR CREATINE 22130 ZACK DIXON KINASE 2 [facility] TOTAL INC INC TECHNETIU A9540 ZACK DIXON M TC-99M 2 [facility] MAA DX INC INC STDY DOSE UP TO 10 MCI BLOOD 68917 ZACK DIXON COUNT 2 [facility] COMPLETE INC INC AUTO&AUTO DIFRNTL WBC NONINVASI 93155 ZACK DIXON VE 2 [facility] EAR/PULSE INC INC OXIMETRY SINGLE DETER ECHO 18101 [facility] TTHRC R-T 2 DINA MORA 2D CARDIOLOG W/WOM-MOD Y CLINIC E COMPL SPEC&COLR D PULMONARY 15249 [place] HSERI 2 MEDICAL MELIDA VENTILATI IMAGING ON & [place] [address] ZACK DIXON TROPONIN 2 [facility] QUANTITAT INC INC MARIBEL GLUC BLD 78154 ZACK DIXON GLUC MNTR 2 [facility] DEV INC INC CLEARED FDA SPEC HOME USE BASIC 01181 ZACK DIXON METABOLIC 2 [facility] PANEL INC INC CALCIUM TOTAL BASIC 41653 ZACK DIXON METABOLIC 2 [facility] [place] [address] ZACK DIXON TROPONIN 2 [facility] QUANTITAT INC INC MARIBEL NATRIURET 87831 ZACK DIXON IC 2 [facility] PEPTIDE INC INC GLUC BLD 47512 ZACK DIXON GLUC MNTR 2 [facility] DEV INC INC CLEARED FDA SPEC HOME USE RADIOLOGI 43890 [place] SHERI C EXAM 2 MEDICAL MELIDA CHEST 2 IMAGING VIEWS ASS FRONTAL&L ATERAL CULTURE 89524 ZACK DIXON BACTERIAL 2 [facility] BLOOD INC INC AEROBIC W/ID ISOLATES URNLS DIP 63738 ZACK DIXON 2 [facility] STICK/TAB INC INC LET REAGENT AUTO MICROSCOP Y BLOOD 42519 ZACK DIXON COUNT 2 [facility] COMPLETE INC INC AUTO&AUTO DIFRNTL WBC THERAPEUT 66384 ZACK ZACK IC 2 [facility] PROPHYLAC INC INC TIC/DX INJECTION SUBQ/IM ECG 13801 ZACK DIXON ROUTINE 2 [facility] ECG INC INC W/LEAST 12 LDS TRCG ONLY W/O I&R FIBRIN 16681 ZACK DIXON DGRADJ 2 [facility] PRODUCTS INC INC D-DIMER QUAL/SEMI BARB CREATINE 57958 ZACK DIXON KINASE 2 [facility] TOTAL INC INC HOSPITAL G0378 ZACK DIXON OBSERVATI 2 [facility] ON INC INC SERVICE PER HOUR CREATINE 31289 ZACK DIXON KINASE MB 2 [facility] FRACTION INC INC ONLY ECG 49935 ZACK MCLEAN ROUTINE 2 [facility] W/LEAST P 12 LDS I&R ONLY COLLECTIO 06388 ZACK DIXON N VENOUS 2 [facility] BLOOD INC INC VENIPUNCT URE BLOOD 28089 ZACK DIXON COUNT 2 [facility] COMPLETE INC INC AUTO&AUTO DIFRNTL WBC BASIC 96835 ZACK DIXON METABOLIC 2 [facility] PANEL INC INC CALCIUM TOTAL INJECTION J0897 ZACK DIXON 2 [facility] DENOSUMAB INC INC 1 MG THERAPEUT 49665 ZACK DIXON IC 2 [facility] PROPHYLAC INC INC TIC/DX INJECTION SUBQ/IM 25 21613 ZACK DIXON HYDROXY 2 [facility] INCLUDES INC [place] [address] ZACK DIXON PARATHORM 2 [facility] ONE INC INC COLLECTIO 59763 ZACK DIXON N VENOUS 2 [facility] BLOOD INC INC VENIPUNCT URE CREATININ 27698 ZACK DIXON E OTHER 2 [facility] SOURCE INC INC DXA BONE 14005 [facility] STUDY 1/> IMAGING SITES ASS AXIAL SKEL RENAL 53559 ZACK DIXON FUNCTION 2 [facility] PANEL INC INC PROTEIN 05037 ZACK DIXON XCPT 2 [facility] REFRACTOM INC INC ETRY SERUM PLASMA/WH L BLD BLOOD 37456 ZACK DIXON COUNT 2 [facility] COMPLETE INC INC AUTO&AUTO DIFRNTL WBC URNLS DIP 58703 ZACK DIXON 2 [facility] STICK/TAB INC INC [...] W/POS EQUIPME EQUIPME ARWAY PRESSURE DEVICE MYOCARDIA 47[address] [facility] L SPECT 2 DINA MORA MULTIPLE CARDIOLOG STUDIES Y CLINIC CV STRS 43475 ZACK ZAPATA TST 2 [facility] XERS&/OR HOSPITAL RX CONT P ECG I&R ONLY CV STRS 72868 [facility] TST 2 PHYSICIAN XERS&/OR S GROUP RX CONT ECG W/O I&R POLYSOM 17177 ZACK DIXON 6/>YRS 2 [facility] SLEEP INC INC W/CPAP 4/> ADDL HARSHIL ATTND SUSCEPTIB 36433 ZACK DIXON LTY STDY 2 [facility] ANTIMICRB INC INC IAL MICRO/AGA R DILUTJ CULTURE 10441 ZACK DIXON BACTERIAL 2 [facility] INC INC QUANTTATI VE COLONY COUNT URINE CULTURE 41385 ZACK DIXON BCT 2 [facility] ISOL&PRSM INC INC PTV ID ISOLATE EA URINE PROTEIN 89309 ZACK DIXON XCPT 2 [facility] REFRACTOM INC INC ETRY SERUM PLASMA/WH L BLD BLOOD 07626 ZACK DIXON COUNT 2 [facility] COMPLETE INC INC AUTO&AUTO DIFRNTL WBC URNLS DIP 57722 ZACK DIXON 2 [facility] STICK/TAB INC INC LET REAGENT AUTO MICROSCOP Y RENAL 44017 ZACK DIXON FUNCTION 2 [facility] PANEL INC INC 25 01562 ZACK DIXON HYDROXY 2 [facility] INCLUDES INC [place] [address] ZACK DIXON PARATHORM 2 [facility] ONE INC INC COLLECTIO 31503 ZACK DIXON N VENOUS 2 [facility] BLOOD INC INC VENIPUNCT URE CREATININ 74279 ZACK DIXON E OTHER 2 [facility] SOURCE INC INC BLD GLU A4253 REID GLASSRELL TEST/REAG 2 HOME HOME T [facility] BLD EQUIPME EQUIPME GLU MON-50 LANCETS A4259 REID REID PER BOX 2 HOME HOME OF 100 MEDICAL MEDICAL EQUIPME EQUIPME POLYSOM 09172 ESTIVEN JEAN-BAPTISTE 6/>YRS 2 [facility] LEIGHTON SLEEP 4/> ADDL HARSHIL ATTND POLYSOM 46157 ZACK ELLIOTTON 6/>YRS 2 [facility] SLEEP 4/> [place] [address] ZACK DIXON TROPONIN 2 [facility] QUANTITAT INC INC MARIBEL BLOOD 11089 ZACK DIXON COUNT 2 [facility] COMPLETE INC INC AUTO&AUTO DIFRNTL WBC URNLS DIP 67471 ZACK DIXON 2 [facility] STICK/TAB INC INC LET REAGENT AUTO MICROSCOP Y ECG 56100 EMEKA SHIN ROUTINE 2 EMERGENCY III NANCY ECG SERVICES W/LEAST 12 LDS I&R ONLY BASIC 40436 ZACK DIXON METABOLIC 2 [facility] PANEL INC INC CALCIUM TOTAL RADIOLOGI 29839 ZACK DIXON C 2 [facility] EXAMINATI INC [place] [address] ZACK DIXON HEAD/BRAI 2 [facility] N W/O INC INC CONTRAST MATERIAL CREATINE 15756 ZACK DIXON KINASE MB 2 [facility] FRACTION INC INC ONLY RADEX 25849 LIZZ WADE SPINE 2 MEDICAL MELIDA LUMBOSACR IMAGING AL ASS MINIMUM 4 VIEWS CREATINE 08042 ZACK DIXON KINASE 2 [facility] TOTAL INC INC 3D 83637 ZACK DIXON RENDERING 2 [facility] W/INTERP INC INC & POSTPROCE SS SUPERVISI ON RADEX 64820 [facility] BRIANSHERI SPINE 2 [facility] THORACIC IMAGING 3 VIEWS ASS ECG 05538 ZACK DIXON ROUTINE 2 [facility] ECG INC INC W/LEAST 12 LDS TRCG ONLY W/O I&R 25 92289 ZACK DIXON HYDROXY 2 [facility] INCLUDES INC [place] [address] ZACK DIXON FERRITIN 2 [place] [address] ZACK DIXON PARATHORM 2 [facility] [place] [address] ZACK DIXON PHOSPHORU 2 [facility] S INC INC INORGANIC CYANOCOBA 73979 ZACK DIXON SOHA 2 [facility] VITAMIN INC INC B-12 RADEX 66101 ZACK DIXON SPINE 2 [facility] CERVICAL INC INC 6 OR MORE VIEWS RADIOLOGI 78851 [facility] DIASSHERI C EXAM 2 [facility] SKULL IMAGING COMPLETE ASS MINIMUM 4 [place] [address] ZACK DIXON FOLIC 2 [facility] [place] [address] ZACK DIXON IRON 2 [facility] INC INC IRON 77296 ZACK DIXON BINDING 2 [facility] CAPACITY INC INC IRRIGAJ 59197 ZACK DIXON IMPLNTD 2 [facility] VENOUS INC INC ACCESS DRUG DELIVERY SYST BASIC 64931 ZACK DIXON METABOLIC 2 [facility] [place] [address] ZACK DIXON BLOOD/URI 2 [facility] C ACID INC INC GLUC BLD 73338 ZACK DIXON GLUC MNTR 2 [facility] DEV INC INC CLEARED FDA SPEC HOME USE BLOOD 98362 ZACK DIXON COUNT 2 [facility] COMPLETE INC INC AUTO&AUTO DIFRNTL WBC GLUC BLD 02925 ZACK DIXON GLUC MNTR 2 [facility] DEV INC INC CLEARED FDA SPEC HOME USE NONINVASI 63899 ZACK DIXON VE 2 [facility] EAR/PULSE INC INC OXIMETRY SINGLE DETER BASIC 95655 ZACK ZACK METABOLIC 2 [facility] PANEL INC INC [facility] G0378 ZACK DIXON OBSERVATI 2 [facility] ON INC INC SERVICE PER HOUR TECHNETIU A9567 ZACK DIXON M TC-99M 2 [facility] PENTETATE INC INC DX AEROSOL TO 75 [facility] G0378 ZACK ZACK OBSERVATI 2 [facility] ON INC INC SERVICE PER HOUR CREATINE 79664 ZACK DIXON KINASE MB 2 [facility] FRACTION INC INC ONLY ECG 71576 ZACK DIXON ROUTINE 2 [facility] ECG INC INC W/LEAST 12 LDS TRCG ONLY W/O I&R TECHNETIU A9540 ZACK Flanagan TC-99M 2 [facility] MAA DX INC INC STDY DOSE UP TO 10 [facility]CI CREATINE 21315 ZACK DIXON KINASE 2 [facility] TOTAL INC INC ECG 78092 ZACK MCLEAN ROUTINE 2 [facility] W/LEAST P 12 LDS I&R ONLY INITIAL 44197 [facility] PHYSICIAN CARE/DAY S GROUP 50 MINUTES BLOOD 50992 ZACK DIXON COUNT 2 [facility] COMPLETE INC INC AUTO&AUTO DIFRNTL WBC BASIC 41100 ZACK DIXON METABOLIC 2 [facility] PANEL INC INC CALCIUM TOTAL GLUC BLD 94415 ZACK DIXON GLUC MNTR 2 [facility] DEV INC INC CLEARED FDA SPEC HOME USE NONINVASI 34398 ZACK DIXON VE 2 [facility] EAR/PULSE INC INC OXIMETRY SINGLE DETER ECHO 71307 [facility] R-T 2 DINA MORA 2D CARDIOLOG W/WOM-MOD Y CLINIC E COMPL SPEC&COLR D RADIOLOGI 58746 LIZZ WADE C EXAM 2 [facility] MELIDA CHEST 2 IMAGING VIEWS ASS FRONTAL&L ATERAL PULMONARY 53610 [facility] 2 MEDICAL MELIDA VENTILATI IMAGING ON & [place] [address] ZACK DIXON TROPONIN 2 [facility] QUANTITAT INC INC MARIBEL ECG 11325 EMEKA WILCOX ROUTINE 2 EMERGENCY [facility] ECG SERVICES W/LEAST 12 LDS I&R ONLY BLOOD 56372 ZACK DIXON COUNT 2 [facility] COMPLETE INC INC AUTO&[place] [address] ZACK DIXON TROPONIN 2 [facility] QUANTITAT INC INC MARIBEL NATRIURET 86138 ZACK DIXON IC 2 [facility] PEPTIDE INC INC CULTURE 44270 ZACK DIXON BACTERIAL 2 [facility] BLOOD INC INC AEROBIC W/ID ISOLATES SUSCEPTIB 85943 ZACK DIXON LTY STDY 2 [facility] ANTIMICRB INC INC IAL MICRO/AGA R DILUTJ URNLS DIP 54826 ZACK DIXON 2 [facility] STICK/TAB INC INC LET REAGENT AUTO MICROSCOP Y CULTURE 96450 ZACK DIXON BACTERIAL 2 [facility] INC INC QUANTTATI VE COLONY COUNT URINE CULTURE 43977 ZACK DIXON BCT 2 [facility] ISOL&PRSM INC INC PTV ID ISOLATE EA URINE CREATINE 05872 ZACK DIXON KINASE 2 [facility] TOTAL INC INC FIBRIN 09645 ZACK DIXON DGRADJ 2 [facility] PRODUCTS INC INC D-DIMER QUAL/SEMI BARB THERAPEUT 09285 ZACK DIXON IC 2 [facility] PROPHYLAC INC INC TIC/DX INJECTION SUBQ/IM ECG 75902 ZACK DIXON ROUTINE 2 [facility] ECG INC INC W/LEAST 12 LDS TRCG ONLY W/O I&R CREATINE 07567 ZACK DIXON KINASE MB 2 [facility] FRACTION INC INC ONLY COMPREHEN 81701 ZACK DIXON SIVE 2 [facility] METABOLIC INC INC PANEL RADIOLOGI 37745 [place] [facility] Lopez 2 MEDICAL MELIDA EXAMINATI IMAGING [...] OF 100 MEDICAL MEDICAL EQUIPME EQUIPME RADIOLOGI 92454 [facility] C 2 MEDICAL MELIDA EXAMINATI IMAGING ON CHEST ASS SINGLE VIEW FRONTAL VENOUS 3893 ZACK DIXON CATHETERI 2 [facility] ZATION INC INC NOT ELSEWHERE CLASSIFIE D RADIOLOGI 59692 [place] [facility] C EXAM 2 MEDICAL MELIDA CHEST 2 IMAGING VIEWS ASS FRONTAL&L ATERAL COMPREHEN [address] COMBINED COMBINED SIVE 2 PHYSICIAN PHYSICIAN METABOLIC S LA S LA PANEL COLLECTIO 48945 FAMILY ALYSSA N VENOUS 2 CARE CRI BLOOD ASSOCIATE VENIPUNCT S, PSC URE CYANOCOBA 76016 COMBINED COMBINED SOHA 2 PHYSICIAN PHYSICIAN VITAMIN S LA S LA B-12 SEDIMENTA 96291 COMBINED COMBINED TION RATE 2 PHYSICIAN PHYSICIAN RBC S LA S LA NON-AUTOM ATED RADIOLOGI 15597 [place] [facility] C 2 MEDICAL MELIDA EXAMINATI IMAGING ON KNEE 3 [place] [address] [facility] RETROPERI 2 MEDICAL MELIDA TONEAL IMAGING REAL TIME ASS W/IMAGE COMPLETE RADIOLOGI 81222 [facility] C EXAM 2 MEDICAL MELIDA CHEST 2 IMAGING VIEWS ASS FRONTAL&L ATERAL RHEUMATOI 18873 COMBINED COMBINED D FACTOR 2 PHYSICIAN PHYSICIAN [place] [address] COMBINED COMBINED BLOOD/URI 2 PHYSICIAN PHYSICIAN C ACID S LA S LA HANDLG&/O 95262 FAMILY STRAWZELL R CONVEY 2 CARE CRI OF SPEC ASSOCIATE FOR TR S, PSC OFFICE TO LAB ANTINUCLE 83035 LAB Z[facility] LAB ZOEY AR 2 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 YUNG BLOOD 44493 FAMILY STRAWZELL COUNT 2 CARE CRI COMPLETE ASSOCIATE AUTO&AUTO S, PSC DIFRNTL WBC LIPID 27699 FAMILY STRAWZELL PANEL 2 CARE CRI ASSOCIATE S, PSC HEMOGLOBI 45972 FAMILY STRAWZELL N 2 CARE CRI GLYCOSYLA ASSOCIATE ALEX A1C S, PSC COLLECTIO 65690 FAMILY STRAWZELL N VENOUS 2 CARE CRI BLOOD ASSOCIATE VENIPUNCT S, PSC URE COMPREHEN 44256 COMBINED COMBINED SIVE 2 PHYSICIAN PHYSICIAN METABOLIC S LA S LA PANEL HANDLG&/O 40144 FAMILY STRAWZELL R CONVEY 2 CARE CRI OF SPEC ASSOCIATE FOR TR S, PSC OFFICE TO LAB 25 69631 COMBINED COMBINED HYDROXY 2 PHYSICIAN PHYSICIAN INCLUDES S LA [place] [address] COMBINED COMBINED THYROID 2 PHYSICIAN PHYSICIAN STIMULATI S LA S LA NG HORMONE TSH DUP-SCAN 22039 [facility] XTR VEINS 2 [facility] INC INC UNILATERA L/LIMITED STUDY RADIOLOGI 08552 [facility] EXAM 2 MEDICAL MELIDA CHEST 2 IMAGING VIEWS ASS FRONTAL&L ATERAL RENAL 36790 [facility] FUNCTION 2 [facility] PANEL INC INC HEPATIC 37033 [facility] FUNCTION 2 [facility] PANEL INC INC BLOOD 91577 [facility] COUNT 2 [facility] COMPLETE INC INC AUTO&AUTO DIFRNTL WBC URNLS DIP 27394 [facility] 2 [facility] STICK/TAB INC INC LET REAGENT AUTO MICROSCOP Y COLLECTIO 08742 [facility] N VENOUS 2 [facility] BLOOD INC INC VENIPUNCT URE DEBRIDEME 34253 PAWSAT PAWSAT NT NAIL 2 MAR MAR ANY METHOD 1-5 THERAPEUT 82948 [facility] IC 1 [facility] PROPHYLAC INC INC TIC/DX INJECTION SUBQ/IM BASIC 11733 [facility] METABOLIC 1 [facility] PANEL INC INC CALCIUM TOTAL COLLECTIO 17986 [facility] N VENOUS 1 [facility] BLOOD INC INC VENIPUNCT URE COLLECTIO 18822 [facility] N VENOUS 1 [facility] BLOOD INC INC VENIPUNCT URE BASIC 73880 [facility] METABOLIC 1 [facility] PANEL INC INC CALCIUM TOTAL THERAPEUT 07535 [facility] IC 1 [facility] PROPHYLAC INC INC TIC/DX INJECTION SUBQ/IM 25 44904 [facility] HYDROXY 1 [facility] INCLUDES [place] [address] [facility] PARATHORM 1 [facility] ONE INC INC PROTEIN 40478 [facility] ELECTROPH 1 [facility] ORETIC INC INC FRACTJ&QU ANTJ SERUM COLLECTIO 02622 [facility] N VENOUS 1 [facility] BLOOD INC INC VENIPUNCT URE CREATININ 46219 [facility] E OTHER 1 [facility] SOURCE INC INC RENAL 83464 [facility] FUNCTION 1 [facility] PANEL INC INC PROTEIN 23774 [facility] XCPT 1 [facility] REFRACTOM INC INC ETRY SERUM PLASMA/WH L BLD BLOOD 97923 [facility] COUNT 1 [facility] COMPLETE INC INC AUTO&AUTO DIFRNTL WBC URNLS DIP 72474 [facility]ACK DIXON 1 [facility] STICK/TAB INC INC LET REAGENT AUTO MICROSCOP Y COLLECTIO 12222 [facility] N VENOUS 1 [facility] BLOOD INC INC VENIPUNCT URE BASIC 40686 [facility] METABOLIC 1 [facility] PANEL INC INC CALCIUM TOTAL INJECTION J1030 [facility] DNISOLONE PSC ACETATE 40 MG RADIOLOGI 59674 [facility] C EXAM 1 [facility] BOTH INC INC KNEES STANDING ANTEROPOS T ARTHROCEN 22443 [place] TESIS 1 [facility]IC[facility] ASPIR&/IN CLINIC J MAJOR PSC JT/BURSA W/O US DXA BONE 93531 [facility] DENSITY 1 [facility] STUDY 1/> [place] [address] [facility] RETROPERI 1 [facility] TONEAL INC INC REAL TIME W/IMAGE COMPLETE OPHTH 58896 [facility]YAN PETERS [facility] MEDICAL 1 VISION XM&EVAL COMPRHNSV ESTAB PT 1/> NON-INVAS 98709 [place] [facility] MARIBEL 1 MEDICAL MELIDA PHYSIOLOG IMAGING IC STUDY ASS EXTREMITY 3 LEVLS BASIC 07530 COMBINED COMBINED METABOLIC 1 PHYSICIAN PHYSICIAN PANEL S LA S LA CALCIUM TOTAL 25 96447 COMBINED COMBINED HYDROXY 1 PHYSICIAN PHYSICIAN INCLUDES S [place] [address] COMBINED COMBINED PARATHORM 1 PHYSICIAN [place] [address] COMBINED COMBINED PHOSPHORU 1 PHYSICIAN PHYSICIAN S S LA S LA INORGANIC BLD GLU A4253 RE[facility] MATHEWS TEST/REAG 1 HOME MED HOME MED T STRIPS EQUIP. L EQUIP. L HOME BLD GLU MON-50 LANCETS A4259 RE[facility] MATHEWS PER BOX 1 HOME MED HOME MED OF [address] [place] [address] [place] [facility] ABDOMEN 1 MEDICAL MELIDA W/O IMAGING CONTRAST ASS MATERIAL COLLECTIO 43840 [facility] N VENOUS 1 [facility] [place] [address] [facility] UREA 1 [facility] NITROGEN INC INC QUANTITAT MARIBEL CREATININ 15821 [facility] E BLOOD 1 [facility] INC INC 3D 25824 [place] [facility] RENDERING 1 MEDICAL MELIDA IMAGING W/INTERP& ASS POSTPROC DIFF WORK STATION HEPATBL 42933 [place] [facility] DUX SYS 1 MEDICAL MELIDA IMG IMAGING GLBLDR ASS TECHNETIU A9537 ZACK Flanagan TC-99M 1 [facility] MEBROFENI INC INC N DX [place] 15 [place] [address] [place] [facility] ABDOMINAL 1 MEDICAL MELIDA REAL IMAGING TIME ASS W/IMAGE LIMITED COMPREHEN 40294 COMBINED COMBINED SIVE 1 PHYSICIAN PHYSICIAN METABOLIC S LA S LA PANEL COLLECTIO 79562 COMBINED COMBINED N VENOUS 1 PHYSICIAN PHYSICIAN BLOOD S LA S LA VENIPUNCT URE COLLECTIO 88891 FAMILY MULBERRY N VENOUS 1 CARE NILO BLOOD ASSOCIATE VENIPUNCT S URE COMPREHEN 90292 COMBINED COMBINED SIVE 1 PHYSICIAN PHYSIC[place] [address] COMBINED COMBINED AMYLASE 1 [place] [address] COMBINED COMBINED THYROID 1 PHYSICIAN PHYSICIAN STIMULATI S LA S LA NG HORMONE TSH BLOOD 80880 FAMILY MULBERRY COUNT 1 CARE NILO COMPLETE ASSOCIATE AUTO&AUTO S DIFRNTL WBC HEMOGLOBI 77421 FAMILY FORDBERRY N 1 CARE NILO GLYCOSY[place] [address] LAB ZOEY LAB ZOEY LIPASE 1 [employer] RADIOLOGI 43791 [place] [facility] Lopez EXAM 1 MEDICAL CARLOS CHEST 2 IMAGING VIEWS ASS FRONTAL&L ATERAL BASIC 85785 COMBINED COMBINED METABOLIC 1 PHYSICIAN PHYSICIAN PANEL S LA S LA CALCIUM TOTAL COLLECTIO 13580 BRENDAN J N VENOUS 1 CARE BLOOD [place] [address] [facility] STREPTOCO 0 [facility] CCUS INC INC GROUP A URNLS DIP 38897 [facility] 0 [facility] STICK/TAB INC INC LET REAGENT AUTO MICROSCOP Y RADIOLOGI 67878 [facility] C EXAM 0 [facility] CHEST 2 INC INC VIEWS FRONTAL&L ATERAL PRESSURIZ 06093 [facility] ED/NONPRE 0 [facility] SSURIZED INC INC INHALATIO N TREATMENT IAADI 49963 [facility] INFLUENZA 0 [facility] B VIRUS INC INC IAADI 47468 [facility] INFFLUENZ 0 [facility] A A VIRUS INC INC COMPREHEN 70647 COMBINED COMBINED SIVE 0 PHYSICIAN PHYSICIAN [place] [address] COMBINED COMBINED THYROID 0 PHYSICIAN PHYSICIAN STIMULATI S LA S LA NG HORMONE TSH COLLECTIO 36428 FAMILY FAMILY N VENOUS 0 CARE CARE BLOOD ASSOCIATE ASSOCIATE VENIPUNCT S S URE OPHTH 86806 [facility] MEDICAL 0 XM&EVAL COMPRHNSV ESTAB PT 1/> FUNDUS 40491 [place] PHOTOGRAP 0 HY W/INTERPR ETATION & REPORT FOR DIAB A5513 WELLNESS WELLNESS ONLY MX 0 [facility] DNSITY SYSTEMS [employer] CSTM MOLD CSTM EA DIAB ONLY A5500 WELLNESS WELLNESS FIT CSTM 0 LIFE LIFE PREP&SPL SYSTEMS SYSTEMS SHOE [employer] LLC DNSITY INSRT RADIOLOGI 30099 [place] [facility] C 0 MEDICAL MELIDA EXAMINATI IMAGING ON ANKLE ASS 2 VIEWS WALKING L4360 [facility] [facility] 0 TECHNOLOG TECHNOLOG PNEUMATC IES INC IES INC &/ VACUUM PREFAB CUSTM FIT RADIOLOGI 74163 [place] [facility] C 0 MEDICAL MELIDA EXAMINATI IMAGING ON ANKLE ASS 2 VIEWS RADEX 53589 [place] [facility] FOOT 0 MEDICAL MELIDA COMPLETE IMAGING MINIMUM 3 ASS VIEWS RADIOLOGI 90912 [facility] ELLIOTTON C 0 [facility] EXAMINATI INC INC ON FO[place] 2 [place] [address] [facility] PETTEY 0 PHYSICIAN JAM CALCANEAL S GROUP FRACTURE W/O MANIPULAT ION RADIOLOGI 17390 [place] [facility] C 0 MEDICAL MELIDA EXAMINATI IMAGING ON TIBIA ASS & FIBULA 2 VIEWS RADEX 52002 [place] [facility] CALCANEUS 0 MEDICAL MELIDA MINIMUM IMAGING 2 VIEWS ASS RADIOLOGI 71511 [place] [facility] C 0 MEDICAL MELIDA EXAMINATI IMAGING ON PELVIS ASS 1/2 VIEWS RADEX 72255 [place] [facility] FOOT 0 MEDICAL MELIDA COMPLETE IMAGING MINIMUM 3 [place] [address] [facility] 0 EMERGENCY CHIDI CALCANEAL SERVICES FRACTURE W/O MANIPULAT ION AMBULANCE A0429 [facility] SERVICE 0 AMBULANCE AMBULANCE BLS SERVICE SERVICE EMERGENCY TRANSPORT GROUND A0425 [facility] MILEAGE 0 AMBULANCE AMBULANCE PER SERVICE SERVICE STATUTE MILE HEMOGLOBI 78357 FAMILY MULBERRY N 0 CARE NILO GLYCOSYLA ASSOCIATE ALEX A1C S BLOOD 98731 FAMILY MULBERRY COUNT 0 CARE NILO COMPLETE ASSOCIATE AUTO&AUTO S DIFRNTL WBC PPSV23 66444 FAMILY VACCINE 2 0 CARE CARE YRS OR ASSOCIATE ASSOCIATE OLDER FOR S S SUBQ/IM USE ADMINISTR G0009 FAMILY LOGANBERRY ATION OF 0 CARE NILO PNEUMOCOC ASSOCIATE JORDYN S VACCINE COLLECTIO 72535 FAMILY MULBERRY N VENOUS 0 CARE NILO BLOOD ASSOCIATE VENIPUNCT S URE 25 19874 LAB ZOEY LAB ZOEY HYDROXY 0 AMERIC AMERIC INCLUDES HOLD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 IF PERFORMED GLUCOSE 95316 FAMILY LOGANBERRY POST 0 CARE NILO [place] [address] COMBINED COMBINED IRON 0 PHYSICIAN [place] [address] COMBINED COMBINED FOLIC 0 PHYSICIAN PHYSICIAN ACID S LAB S LAB SERUM COMPREHEN 08754 COMBINED COMBINED SIVE 0 PHYSICIAN PHYSICIAN METABOLIC S LAB S LAB PANEL LIPID 65799 COMBINED COMBINED PANEL 0 PHYSICIAN [place] [address] COMBINED COMBINED FERRITIN 0 PHYSICIAN PHYSICIAN S LAB S LAB CYANOCOBA 32312 COMBINED COMBINED SOHA 0 PHYSICIAN PHYSICIAN VITAMIN S LAB S LAB B-12 HEMOGLOBI 79639 FAMILY MULBERRY, N 0 CARE CLEO T GLYCOSYLA ASSOCIATE ALEX A1C S BLOOD 18079 FAMILY LOGANBERRY, COUNT 0 CARE CLEO T COMPLETE ASSOCIATE AUTO&AUTO S DIFRNTL WBC COLLECTIO 96532 FAMILY MULBERRY, N VENOUS 0 CARE CLEO T BLOOD ASSOCIATE VENIPUNCT S URE BASIC 44520 COMBINED COMBINED METABOLIC 0 PHYSICIAN PHYSICIAN PANEL S LAB S LAB CALCIUM TOTAL BLOOD 07200 FAMILY MULBERRY, COUNT 0 CARE CLEO T COMPLETE ASSOCIATE AUTO&AUTO S DIFRNTL WBC COLLECTIO 08525 FAMILY MULBERRY, N VENOUS 0 CARE CLEO T BLOOD ASSOCIATE VENIPUNCT S URE BLD GLU A4253 REID MATHEWS TEST/REAG 0 HOME MED HOME MED T STRIPS EQUIP. EQUIP. HOME BLD [facility] GLU [facility] 28593 [facility], DISCHARGE 0 CARE CLEO T DAY ASSOCIATE MANAGEMEN S T > 30 MIN LANCETS A4259 REID REID PER BOX 0 HOME MED HOME MED OF 100 [facility] RADIOLOGI 04208 LIZZ John EPPS EXAM 0 MEDICAL XAVI Mcdonald CHEST 2 IMAGING VIEWS ASSOCIATE FRONTAL&L S ATERAL SBSQ 72391 [facility] 0 CARE CLEO T CARE/DAY ASSOCIATE 25 S MINUTES INTRO 83131 EMEKA WILCOX, NEEDLE/IN 0 EMERGENCY [facility] TRACATH SERVICES EXTREMITY ARTERY ASSOCIATE S ECG 91006 ZACK BARRETO, ROUTINE 0 [facility] W/LEAST PROF SERV 12 LDS I&R ONLY RADIOLOGI 98627 LIZZ John WADE EXAM 0 MEDICAL RAYMUNDO CHEST 2 IMAGING VIEWS ASSOCIATE FRONTAL&L S ATERAL INITIAL 45192 [facility] 0 CARE CLEO T CARE/DAY ASSOCIATE 50 S MINUTES ECHO 56058 [facility] 0 PHYSICIAN MINNA [place] GROUP W/WOM-MOD E COMPL SPEC&[place] [address] [facility], PART VNTJ 0 MEDICAL RAYMUNDO IMG IMAGING AERSL ASSOCIATE 1/NOVELTIES SALES REPRESENTATIVE S PRJCJ AMB A0427 [facility] SERVICE 0 AMBULANCE AMBULANCE ALS SERVICE SERVICE EMERGENCY TRANSPORT LEVEL 1 GROUND A0425 [facility] MILEAGE 0 AMBULANCE AMBULANCE PER SERVICE SERVICE STATUTE MILE IAADIADOO 38472 [place] [address] CARE CLEO T STREPTOCO ASSOCIATE CCUS S GROUP A ORTHOPANT 42512 [facility] SHERI, OGRAM 0 MEDICAL RAYMUNDO IMAGING ASSOCIATE S RENAL 60074 [facility] FUNCTION 0 [facility] PANEL INC INC COLLECTIO 92143 [facility] N VENOUS 0 [facility] BLOOD INC INC VENIPUNCT URE LANCETS A4259 DIABETES DIABETES PER BOX 0 CARE CLUB [facility] OF 100 [facility] LLC NORMAL A4256 DIABETES DIABETES LOW AND 0 CARE CLUB CARE CLUB HIGH [facility] CALIBRATO R SOLUTION/ CHIPS BLD GLU A4253 DIABETES DIABETES TEST/REAG 0 CARE CLUB CARE CLUB T [facility] HOME BLD GLU MON-50 COLLECTIO 45760 [facility] N VENOUS 9 [facility] BLOOD INC INC VENIPUNCT URE RENAL 36785 [facility] FUNCTION 9 [facility] PANEL INC INC ELECTRIC E0215 DIABETES DIABETES HEAT PAD 9 CARE CLUB CARE CLUB MOIST [facility] LLC BLD GLU A4253 DIABETES DIABETES TEST/REAG 9 CARE CLUB CARE CLUB T STRIPS [facility] LLC HOME BLD GLU MON-50 NORMAL A4256 DIABETES DIABETES LOW AND 9 CARE CLUB CARE CLUB HIGH [facility] CALIBRATO R SOLUTION/ CHIPS LANCETS A4259 DIABETES DIABETES PER BOX 9 CARE CLUB CARE CLUB OF 100 [place] [address] [facility] ELLIOTTON RETROPERI 9 [facility] TONEAL INC INC REAL TIME W/IMAGE COMPLETE URNLS DIP 95559 [facility] 9 [facility] STICK/TAB INC INC LET REAGENT AUTO MICROSCOP Y SUSCEPTIB 88104 [facility] LTY STDY 9 [facility] ANTIMICRB INC INC IAL MICRO/AGA R DILUTJ RENAL 90854 [facility] FUNCTION 9 [facility] PANEL INC INC COMPLEMEN 22600 [facility] T 9 [facility] FUNCTIONA INC INC L ACTIVITY EACH COMPONENT COLLECTIO 13056 [facility] ELLIOTTON N VENOUS 9 [facility] BLOOD INC INC VENIPUNCT URE CULTURE 72007 [facility] BCT 9 [facility] ISOL&PRSM INC INC PTV ID ISOLATE EA URINE CULTURE 30736 [facility] BACTERIAL 9 [facility] INC INC QUANTTATI VE COLONY COUNT URINE ANTINUCLE 81967 [facility] AR 9 [facility] [place] [address] [facility] BLOOD/URI 9 [facility] C ACID INC INC ANTISTREP 44494 [facility] TOLYSIN O 9 [facility] SCREEN INC INC BASIC 50745 [facility] METABOLIC 9 [facility] PANEL INC INC CALCIUM TOTAL COLLECTIO 84081 [facility] N VENOUS 9 [facility] BLOOD INC INC VENIPUNCT URE COLLECTIO 68464 [facility] N VENOUS 9 [facility] BLOOD INC INC VENIPUNCT URE COMPREHEN 15733 [facility] SIVE 9 [facility] [address] [facility] THYROID 9 [facility] STIMULATI INC INC NG HORMONE TSH BLOOD 22380 [facility] COUNT 9 [facility] H[facility] MEM [...] WERED 9 CARE CLUB CARE CLUB DEVICE [facility] FOR LANCET EACH REPL KIM A4235 DIABETES DIABETES LITHIUM 9 CARE CLUB CARE CLUB MED NECES [facility] BG MON OWN PT EA OPHTH 67428 PETERS PETERS, MEDICAL 9 GEE A GEE A XM&EVAL COMPRHNSV ESTAB PT 1/> CREATININ 15073 FAMILY MULBERRY, E OTHER 9 CARE CLEO T SOURCE ASSOCIATE S COLLECTIO 71618 FAMILY MULBERRY, N VENOUS 9 CARE CLEO Rollins BLOOD ASSOCIATE VENIPUNCT S URE HEMOGLOBI 80894 COMBINED COMBINED N 9 PHYSICIAN PHYSICIAN GLYCOSYLA S LAB S LAB ALEX A1C ALBUMIN 03124 FAMILY MULBERRY, URINE 9 CARE CLEO T MICROALBU ASSOCIATE MIN S SEMIQUANT ITATIVE BLD GLU A4253 DIABETES DIABETES TEST/REAG 9 CARE CLUB CARE CLUB T [facility] HOME BLD GLU MON-50 NORMAL A4256 DIABETES DIABETES LOW AND 9 CARE CLUB CARE CLUB HIGH LLC LLC CALIBRATO R SOLUTION/ CHIPS LANCETS A4259 DIABETES DIABETES PER BOX 9 CARE CLUB CARE CLUB OF 100 [facility] LLC NORMAL A4256 DIABETES DIABETES LOW AND 8 CARE CLUB CARE CLUB HIGH [facility] LLC CALIBRATO R SOLUTION/ CHIPS LANCETS A4259 DIABETES DIABETES PER BOX 8 CARE CLUB CARE CLUB OF 100 LLC LLC BLD GLU A4253 DIABETES DIABETES TEST/REAG 8 CARE CLUB CARE CLUB T STRIPS [facility] HOME BLD GLU MON-50 THERAPEUT 70268 PROFESSIO CROSSFIEL ACTVITY 8 NAL REHAB D, DIRECT PT ASSOC DANNITA CONTACT PSC EACH 15 MIN MANUAL 98598 PROFESSIO CROSSFIEL THERAPY 8 NAL REHAB D, TQS 1/> ASSOC DANNITA REGIONS PSC EACH 15 MINUTES THERAPEUT 26012 PROFESSIO CROSSFIEL IC PX 1/> 8 NAL REHAB D, AREAS ASSOC DANNITA EACH 15 PSC MIN EXERCISES CANE E0105 REID MATHEWS QUAD/3-IL 8 HOME MED HOME MED GABINO ALL EQUIP. EQUIP. MATL [facility] ADJUSTBL/ FIX W/TIPS PHYSICAL 11801 PROFESSIO CROSSFIEL THERAPY 8 NAL REHAB D, EVALUATIO ASSOC DANNITA N PSC THERAPEUT 66106 PROFESSIO CROSSFIEL IC PX 1/> 8 NAL REHAB D, AREAS ASSOC DANNITA EACH 15 PSC MIN EXERCISES MANUAL 91329 PROFESSIO CROSSFIEL THERAPY 8 NAL REHAB D, TQS 1/> ASSOC DANNITA [facility]IONS PSC EACH 15 MINUTES RADEX HIP 19476 [facility] 8 [facility] UNILATERA INC INC L COMPLETE MINIMUM 2 VIEWS RADEX 24863 [place] [facility], SPINE 8 MEDICAL XAVI P LUMBOSACR IMAGING AL ASSOCIATE MINIMUM 4 S VIEWS Encounters Encounter Start End Date Code Location Performer Type Date HOSPITAL ZACK - 7 7 [facility] INPATIENT INC EMERGENCY 28400 RUDY JOINER DEPT 7 7 PHYSICIAN VISIT S, [facility] HIGH SEVERITY& THREAT [facility] ZACK - 6 6 [facility] OUTPATIEN INC T OFFICE 65874 [place] [facility] OUTPATIEN 6 6 MEDICAL T VISIT SERV 25 FOUNDATIO MINUTES HOSPITAL ZACK - 6 6 [facility] OUTPATIEN INC T EMERGENCY 67309 ZACK DEPT 6 6 [facility] VISIT INC HIGH SEVERITY& THREAT [facility] HOSPITAL ZACK - OTHER [address] [facility] ZACK - OTHER 6 6 [facility] INC OFFICE 20487 [place] OUTPATIEN 6 6 MEDICAL T VISIT SERV 25 FOUNDATIO MINUTES N OFFICE 49865 [place] WILL OUTPATIEN 6 6 [facility] T VISIT INTERNAL 15 MEDI MINUTES EMERGENCY 32170 RUDY CYR [facility] DEPT 6 6 PHYSICIAN VISIT S, PLLC HIGH SEVERITY& THREAT [facility] OFFICE 63580 [place] [facility] OUTPATIEN 6 6 [facility] T VISIT INTERNAL 15 MED MINUTES HOSPITAL ZACK - 6 6 [facility] OUTPATIEN INC T EMERGENCY 79189 ZACK 6 6 [facility] DEPARTMEN INC T VISIT HIGH/URGE NT SEVERITY EMERGENCY 35664 ZACK 6 6 [facility] DEPARTMEN INC T VISIT MODERATE SEVERITY EMERGENCY 90992 RUDY WILCOX 6 6 [facility] T VISIT HIGH/URGE NT SEVERITY HOSPITAL ZACK - 6 6 [facility] OUTPATIEN INC T [facility] INPATIENT 6 6 [facility] INPATIENT 6 6 [facility] EMERGENCY ZACK - 5 5 [facility] OUTPATIEN INC T EMERGENCY 64256 ZACK 5 5 [facility] DEPARTMEN INC T VISIT LOW/MODER SEVERITY [facility] INPATIENT 5 5 [facility] INPATIENT 5 5 [facility] ZACK [facility] 5 5 [facility] INPATIENT INC OFFICE [id number] ZACK [facility]ON OUTPATIEN 5 5 [facility] T VISIT 5 HOSPITAL MINUTES [facility]OSPITAL ZACK - 5 5 [facility] T EMERGENCY 88233 ZACK 5 5 [facility] DEPARTMEN INC T VISIT LIMITED/M INOR PROB OFFICE 53090 ZACK CALDERON OUTPATIEN 5 5 [facility] 10 P MINUTES OFFICE 83147 CAMERON GORDILLO OUTPATIEN 5 5 MEDICAL T VISIT SERV 25 FOUNDATIO MINUTES [facility] ZACK - 5 5 [facility] INC [facility] ZACK - 5 5 [facility] INC T OFFICE [id number] [place] OUTPATIEN 5 5 [facility] VISIT INTERNAL 25 MEDI MINUTES OFFICE 51422 ZACK CALDERON OUTPATIEN 5 5 [facility] T VISIT HOSPITAL 15 P MINUTES HOSPITAL ZACK [facility] 5 5 [facility] OUTPATIEN [facility] ZACK [facility] OTHER 5 5 [facility] INC OFFICE 04223 ZACK CALDERON OUTPATIEN 5 5 [facility] T VISIT HOSPITAL 10 P MINUTES [facility] INPATIENT 5 5 [facility] OFFICE 93142 CAMERON GORDILLO OUTPATIEN 5 5 MEDICAL T VISIT SERV 25 FOUNDATIO MINUTES N [facility] INPATIENT 5 5 [facility] INPATIENT 5 5 [facility] INPATIENT 5 5 [facility] ZACK - 5 5 [facility] INPATIENT [facility] EMERGENCY 83587 ZACK Dawn 5 5 [facility] T VISIT P LOW/MODER [facility]VERITY [facility] ZACK - 5 5 [facility] Z[facility] 5 5 [facility] OUTPATIEN [facility] OFFICE 68845 CAMERON GORDILLO OUTPATIEN 4 4 MEDICAL T VISIT SERV 25 FOUNDATIO MINUTES [facility] ZACK - 4 4 [facility] OUTPATIEN [facility] EMERGENCY 37392 [facility] DEPT 4 4 ERIC IMT VISIT EMERGENCY HIGH PHYS SEVERITY& THREAT FUN EMERGENCY 27358 ZACK 4 4 [facility] T VISIT MODERATE SEVERITY [facility] ZACK - 4 4 [facility] ZACK [facility] OTHER 4 4 [facility] OFFICE [address] [place] ERIBERTO GORDILLO OUTPATIEN 4 4 MEDICAL T VISIT SERV 25 [facility] ZACK - 4 4 [facility] ZACK - OTHER [address] [facility] ZACK - 4 4 [facility] OUTPATIEN [facility] OFFICE 93272 CAMERON GORDILLO OUTPATIEN 3 3 MEDICAL T VISIT SERV 25 FOUNDATIO MINUTES OFFICE 10952 [facility] PETTEAg OUTONESIMO 3 3 PHYSICIAN JAM T VISIT S GROUP 15 MINUTES [facility] ZACK - 3 3 [facility] Emergency RIP Shin (ER) 3 08:47 3 09:14 [facility] ZACK - 3 3 [facility] OUTPATIEN [facility] EMERGENCY 42495 ZACK 3 3 [facility] VISIT LIMITED/M INOR PROB EMERGENCY 75431 EMEKA SHIN 3 3 EMERGENCY III [facility] T VISIT HIGH/URGE NT SEVERITY Emergency RIP Shields MD (ER) 3 07:59 3 14:30 [facility] EMERGENCY 70925 ZACK 3 3 [facility] T VISIT HIGH/URGE NT SEVERITY EMERGENCY 57853 EMEKA LIRA DEPT 3 3 EMERGENCY VISIT SERVICES HIGH SEVERITY& THREAT [facility] ZACK - 3 3 [facility] ZACK [facility] 3 3 [facility] OFFICE 73194 CAMERON GORDILLO OUTPATIEN 3 3 MEDICAL T VISIT SERV 25 FOUNDATIO MINUTES [facility] AZCK - 3 3 [facility] Z[facility] 3 3 [facility] 3 [facility] ZACK [facility] 3 3 [facility] ZACK - 2 2 [facility] OUT[facility] EMERGENCY 15942 EMEKA CASTELLANO DEPT 2 2 EMERGENCY VISIT SERVICES HIGH SEVERITY& THREAT [facility] ZACK - 2 2 [facility] ZACK [facility] 2 2 [facility] OUT[facility]IEN [facility] OFFICE 28984 CAMERON GORDILLO OUTPATIEN 2 2 MEDICAL T [facility]ISIT SERV 25 [facility] ZACK [facility] 2 2 [facility] OUT[facility]EN [facility] ZACK - 2 2 [facility] ZACK [facility] 2 2 [facility] OUTPATIEN [facility] OFFICE 09930 [place] R[place] OUTPATIEN 2 2 MEDICAL T VISIT SERV 15 [facility] ZACK [facility] [address] [facility] T EMERGENCY 43180 ZACK 2 2 [facility] T VISIT HIGH/URGE NT SEVERITY HOSPITAL ZACK - 2 2 [facility] OUTPATIEN [facility] EMERGENCY 60229 EMEKA SHIN DEPT 2 2 EMERGENCY III NANCY VISIT SERVICES HIGH SEVERITY& THREAT [facility] ZACK - 2 2 [facility] OUTPATIEN [facility] EMERGENCY 36872 EMEKA WILCOX DEPT 2 2 EMERGENCY CHIDI VISIT SERVICES HIGH SEVERITY& THREAT [facility] ZACK - 2 2 [facility] OUTPATIEN [facility] EMERGENCY 02939 ZACK 2 2 [facility] T VISIT HIGH/URGE NT SEVERITY HOSPITAL ZACK - 2 2 [facility] INPATIENT INC OFFICE 23295 FAMILY STRAWZELL OUTPATIEN 2 2 CARE CRI T VISIT ASSOCIATE 25 S, PSC MINUTES OFFICE 87006 FAMILY STRAWZELL OUTPATIEN 2 2 CARE CRI T VISIT ASSOCIATE 15 S, PSC MINUTES EMERGENCY 40822 ZACK 2 2 [facility] T VISIT LOW/MODER SEVERITY EMERGENCY 58635 EMEKA SHIN 2 2 EMERGENCY III NANCY DEPARTMEN SERVICES T VISIT HIGH/URGE NT SEVERITY [facility]OSPITAL ZACK - 2 2 [facility] Z[facility] - 2 2 [facility] INC T OFFICE [address]13 [place] ERIBERTO GORDILLO OUTPATIEN 2 2 MEDICAL T VISIT SERV 25 FOUNDATIO MINUTES OFFICE 46620 PAWSAT PAWSAT OUTPATIEN 2 2 Aug T NEW 30 MINUTES [facility]OSPITAL ZACK - 1 1 [facility] ZACK - 1 1 [facility] [place] OFFICE 28316 [place] ERI[place]ERT[place]ORD[place] OUTPATIEN 1 1 MEDICAL T VISIT SERV 25 [facility] Z[facility] - 1 1 [facility] INC EMERGENCY 97425 ZACK 1 1 [facility] T VISIT MODERATE SEVERITY [facility]OSPITAL ZACK - 1 1 [facility] ZACK - 1 1 [facility] ZACK [facility] 1 1 [facility] Z[facility] - [address] [facility] T OFFICE 04434 [place] OUTPATIEN 1 1 [place] T NEW 45 CLINIC MINUTES [facility] ZACK - 1 1 [facility] OUTPATIEN INC T OFFICE 45840 [place] ERIBERTO GORDILLO OUTPATIEN 1 1 MEDICAL T NEW 60 SERV MINUTES [facility] ZACK - 1 1 [facility] OUTPATIEN INC T OFFICE 62311 FAMILY JADA OUTPATIEN 1 1 CARE NILO T VISIT ASSOCIATE 40 S MINUTES [facility] ZACK - 1 1 [facility] OUTPATIEN INC EMERGENCY 16246 EMEKA WU 1 1 EMERGENCY JAM DEPARTMEN SERVICES T VISIT MODERATE SEVERITY EMERGENCY 66200 ZACK 1 1 [facility] DEPARTMEN INC T VISIT LOW/MODER SEVERITY OFFICE 91671 FAMILY JADA OUTPATIEN 1 1 CARE NILO T VISIT ASSOCIATE 25 S MINUTES OFFICE 80467 ANKUSH LECHUGA JR OUTPATIEN 1 1 ELAINE ELAINE T VISIT 15 MINUTES [facility]OSPITAL ZACK - 1 1 [facility] INC T OFFICE 58037 ALLRAN JR ANKUSH SLOAN OUTPATIEN 1 1 ELAINE ELAINE T NEW 45 MINUTES [facility]PITAL ZACK - 1 1 [facility] ZACK - 1 1 [facility] INC T OFFICE 92712 FAMILY JADA OUTPATIEN 1 1 CARE NILO T VISIT ASSOCIATE 25 S MINUTES EMERGENCY 32255 ZACK 1 1 [facility] DEPARTMEN INC T VISIT LOW/MODER SEVERITY [facility]OSPITAL ZACK - 1 1 [facility] OUTPATIEN INC T EMERGENCY 68836 EMEKA CASTELLANO 1 1 EMERGENCY DEPARTMEN SERVICES T VISIT HIGH/URGE NT SEVERITY OFFICE 98524 FAMILY BRENDAN J OUTPATIEN 1 1 CARE T VISIT ASSOCIATE 15 S MINUTES EMERGENCY 48121 ZACK 0 0 [facility] DEPARTMEN INC T VISIT LOW/MODER SEVERITY [facility]OSPITAL ZACK - 0 0 [facility] OUTPATIEN INC T EMERGENCY 72243 EMEKA WILCOX 0 0 EMERGENCY [facility] DEPARTMEN SERVICES T VISIT HIGH/URGE NT SEVERITY OFFICE 75596 FAMILY BRENDAN J OUTPATIEN 0 0 CARE T VISIT ASSOCIATE 15 S MINUTES OFFICE 14700 FAMILY BRENDAN J OUTPATIEN 0 0 CARE T VISIT ASSOCIATE 15 S MINUTES [facility]OSPITAL ZACK - 0 0 [facility] T OFFICE 43897 FAMILY MULBERRY OUTPATIEN 0 0 CARE NILO T VISIT ASSOCIATE 25 S MINUTES [facility]OSPITAL ZACK - 0 0 [facility] T [facility] ZACK - 0 0 [facility] OUTPATIEN INC T OFFICE 58441 [facility] PETTEY OUTPATIEN 0 0 PHYSICIAN JAM T NEW 45 S GROUP MINUTES EMERGENCY 08815 ZACK 0 0 [facility] DEPARTMEN INC T VISIT MODERATE SEVERITY EMERGENCY 38873 EMEKA WILCOX 0 0 EMERGENCY [facility] DEPARTMEN SERVICES T VISIT HIGH/URGE NT SEVERITY [facility]OSPITAL ZACK - 0 0 [facility] OUTPATIEN INC T OFFICE 52698 FAMILY MULBERRY OUTPATIEN 0 0 CARE NILO T VISIT ASSOCIATE 25 S MINUTES OFFICE 18982 FAMILY MULBERRY, OUTPATIEN 0 0 CARE CLEO T T VISIT ASSOCIATE 15 S MINUTES OFFICE 94829 FAMILY MULBERRY, OUTPATIEN 0 0 CARE CLEO T T VISIT ASSOCIATE 25 S MINUTES OFFICE 39057 FAMILY MULBERRY, OUTPATIEN 0 0 CARE CLEO T T VISIT ASSOCIATE 15 S MINUTES OFFICE 87574 FAMILY MULBERRY, OUTPATIEN 0 0 CARE CLEO T T VISIT ASSOCIATE 25 S MINUTES [facility]OSPITAL ZACK - 0 0 [facility] INPATIENT INC EMERGENCY 08282 EMEKA WILCOX, DEPT 0 0 EMERGENCY TAYA S VISIT SERVICES HIGH SEVERITY& ASSOCIATE THREAT S [facility] OFFICE 50521 FAMILY MULBERRY, OUTPATIEN 0 0 CARE CLEO T T VISIT ASSOCIATE 15 S MINUTES EMERGENCY 18168 ZACK 0 0 [facility] DEPARTMEN INC T VISIT LOW/MODER SEVERITY [facility]OSPITAL ZACK - 0 0 [facility] ZACK - 0 0 [facility] INC T OFFICE 90306 MEANS BUTROS, OUTPATIEN 9 9 ADULT BERNARDA T VISIT PRIMARY 15 CARE [facility] ZACK - 9 9 [facility] OUTPATIEN INC T OFFICE 43144 MEANS BUTROS, OUTPATIEN 9 9 ADULT BERNARDA T VISIT PRIMARY 25 CARE [facility] ZACK - 9 9 [facility] OUTPATIEN INC T OFFICE 62828 MEANS BUTNGOZI, CONSULTAT 9 9 ADULT BERNARDA ION PRIMARY [facility] 80 MIN [facility] ZACK - 9 9 [facility] OUTPATIEN INC T OFFICE 21496 FAMILY JADA OUTPATIEN 9 9 CARE CLEO T T VISIT ASSOCIATE 15 S MINUTES OFFICE 42585 FAMILY LOGANBERRY OUTPATIEN 9 9 CARE CLEO T T VISIT ASSOCIATE 25 S MINUTES [facility] ZACK - 9 9 [facility] OUTPATIEN INC T OFFICE 30219 FAMILY JADA OUTPATIEN 9 9 CARE CLEO T T VISIT ASSOCIATE 25 S MINUTES OFFICE 95565 FAMILY KO OCAMPO 8 8 CARE R PADMINI T VISIT ASSOCIATE 25 S MINUTES [facility]OSPITAL ZACK - 8 8 [facility] OUTPATIEN INC T OFFICE 43525 Sameer MARCOS OUTPATIEN 8 8 CARE G T VISIT ASSOCIATE 15 S MINUTES [facility] ZACK - 8 8 [facility] OUTPATIEN INC T EMERGENCY 61460 ZACK 8 8 [facility] DEPARTMEN INC T VISIT LOW/MODER SEVERITY EMERGENCY 77053 ZACK 8 8 [facility] DEPARTMEN INC T VISIT LIMITED/M INOR PROB [facility] ZACK - 8 8 [facility] T
--- OUTSIDE RECORDS SUMMARY | 2016-10-20 19:37 | External Medical Summary Rpt ---
Author Author , Organization [employer] Address Unknown Phone Unavailable Care Team Providers Care Station Mechanic Apprentice Name Role Phone CALDERON VALENTINE, CALDERON Unavailable [...] TRACY RODRIGUEZ ALL, RODRIGUEZ ALL Unavailable Unavailable [facility] Unavailable Unavailable SERVICE, [facility] Unavailable Unavailable SERVICE, [facility] BUTROS, REZKALLA, Unavailable Unavailable BUTROS, REZKALLA [facility] Unavailable Unavailable CONSULTANTS O, [facility] Unavailable Unavailable CAMPUS, [facility] Unavailable Unavailable CAMPUS, [facility] Unavailable Unavailable [place], [facility] [...] S MARISOL ANDREZ, Unavailable Unavailable MARISOL ANDREZ [facility] Unavailable Unavailable INC, [facility] Unavailable Unavailable HOSPITAL P, [facility] PETERS LANNY, PETERS LANNY Unavailable Unavailable PETERS LANNY, PETERS LANNY Unavailable Unavailable PETERS, GEE A, Unavailable Unavailable PETERS, GEE A [facility], Unavailable Unavailable [facility] JOINER, JOIENR Unavailable Unavailable KLARISSA IMT, KLARISSA Unavailable Unavailable IMT [facility] Un[facility] Unavailable [facility], [facility] KOTTER JUAN J, KOTTER [...] E [facility] Unavailable Unavailable [facility] MED, [facility] Unavailable Unavailable INTERNAL MEDI, [facility] INTERNAL MEDI [facility] Unavailable Unavailable SERVICES, [facility] MCKEMIE JR NANCY, Unavailable Unavailable MCKEMIE JR NANCY MICH CARLOS, MICH Unavailable Unavailable CARLOS [facility] EPPS P, Unavailable Unavailable [facility] MULBERRY NILO, Unavailable Unavailable MULBERRY NILO MULBERRY, CLEO T, Unavailable Unavailable MULBERRY, CLEO T CROWELL SON, CROWELL SON Unavailable Unavailable [facility] Unavailable Unavailable [facility], [facility] Clemente OCAMPO, Unavailable Unavailable Clemente [...] Unavailable Unavailable EQUIPME, [facility] Unavailable Unavailable EQUIPME, [facility] Unavailable Unavailable EMERGENCY PHYS, [facility]GENC[facility] PHYS [facility] Unavailable Unavailable CLINIC, [facility] STRAWZELL CRI, Unavailable Unavailable STRAWZELL CRI [facility], Unavailable Unavailable [facility], Unavailable Unavailable [facility] WEI RAND, WEI RAND Unavailable Unavailable WEHRMAN III NANCY, Unavailable Unavailable WEHRMAN III NANCY [facility] Unavailable Unavailable LLC, [facility] ELSA LIRA, ELSA LIRA Unavailable Unavailable Purpose Continuity of Care Document - 11-11-2007 through 2016 Problems Code Diagnosis DOS Provider Status E109 TYPE 1 09-14-2016 [facility] MELLITUS GROUP WITHOUT COMPLICATIO NS I213 ST 09-14-2016 [facility] ELEVATION PHYSICIANS MYOCARDIAL GROUP INFARCTION UNS SITE I739 PERIPHERAL 09-14-2016 [facility] VASCULAR PHYSICIANS DISEASE GROUP UNSPECIFIED N183 CHRONIC 09-14-2016 [facility] KIDNEY PHYSICIANS DISEASE GROUP STAGE 3 MODERATE E1142 TYPE 2 09-13-2016 [facility] P W/DIAB POLYNEUROPA THY I119 HYPERTENSIV 09-13-2016 [facility] HE[facility] PHYSICIANS, DISEASE PLLC WITHOUT HEART FAILURE I129 HYPERTENSIV 09-13-2016 [facility] CKD [facility] W/STAGE 1-4 INC CKD OR UNS CKD H18039 ASHD DIOMEDE 09-13-2016 [facility] COR ART [facility] W/UNSTABLE INC ANGINA PECTORIS I5043 ACUTE ON 09-13-2016 [facility] P SYSTOLIC & DIASTOLIC CHF I773 ARTERIAL 09-13-2016 [facility] FIBROMUSCUL [facility] AR INC DYSPLASIA R0602 SHORTNESS 09-13-2016 [facility] OF BREATH PHYSICIANS GROUP R0689 OTHER 09-13-2016 [facility] ES OF SERVICE BREATHING Z794 CORRECTION 09-13-2016 [facility] CURRENT USE [facility] OF INSULIN INC E039 HYPOTHYROID 06-09-2016 [facility] ISM [facility] UNSPECIFIED INC E118 TYPE 2 06-09-2016 [facility] DIABETES [facility] MELLITUS INC W/UNS COMPLICATIO NS E119 TYPE 2 03-21-2016 [facility] MELLITUS FOUNDATION WITHOUT COMPLICATIO NS M810 AGE-RELATED 03-21-2016 [facility] SERV OSTEOPOROSI FOUNDATION S W/O CURRNT PATH FX N184 CHRONIC 03-21-2016 [facility] DISEASE FOUNDATION STAGE 4 SEVERE N250 RENAL 03-21-2016 [place] [facility] OSTEODYSTRO SERV PHY FOUNDATION N390 URINARY 03-18-2016 [facility] INFECTION LA SITE NOT SPECIFIED Z77130 TYPE 2 02-28-2016 [place] [facility] MELLITUS [facility] P W/HYPOGLYCE VICTORIANO W/O COMA E162 HYPOGLYCEMI 02-28-2016 [facility] A PHYSICIANS, UNSPECIFIED PLLC E876 HYPOKALEMIA 02-28-2016 [facility] I10 ESSENTIAL 02-28-2016 [facility] HYPERTENSIO [facility] P N I5032 CHRONIC 02-28-2016 [facility] P HEART FAILURE R410 DISORIENTAT 02-28-2016 [facility] UNSPECIFIED SERVICE Z591 INADEQUATE 02-28-2016 [facility] HOSP INC O15386 OTHER LONG 02-28-2016 [place] [facility] CURRENT INC DRUG THERAPY G4733 OBSTRUCTIVE 02-15-2016 [facility] SLEEP HOME APNEA ADULT MEDICAL PEDIATRIC EQUIPME [id number] MX FX 02-15-2016 [facility] PELVIS STBL HOME DISRUPT MEDICAL PELV RING EQUIPME INIT CHANDRIKA FX I8310 VARICOSE 09-17-2015 [facility] UNS VALLEY LOWER INTERNAL EXTREM MEDI W/INFLAMMAT ION M129 ARTHROPATHY 09-17-2015 [facility] UNSPECIFIED INTERNAL MEDI Z9111 PATIENTS 09-07-2015 [facility] NONCOMPLIAN VALLEY CE WITH INTERNAL DIETARY MEDI REGIMEN N189 CHRONIC 09-05-2015 [facility] KIDNEY PHYSICIANS, DISEASE PLLC UNSPECIFIED R1110 VOMITING 09-05-2015 [facility] R404 TRANSIENT 09-05-2015 [facility] ALTERATION MEDICAL OF IMAGING ASS AWARENESS R4182 ALTERED 09-05-2015 [facility] MENTAL PHYSICIANS, STATUS PLLC UNSPECIFIED R464 SLOWNESS 09-05-2015 [facility] RESPONSIVEN SERVICE ESS C67223 CELLULITIS 08-16-2015 [place] OF RIGHT VALLEY LOWER LIMB INTERNAL MED N28039 CELLULITIS 08-16-2015 [place] OF LEFT VALLEY LOWER LIMB INTERNAL MED E1021 TYPE 1 08-10-2015 [place] DI[facility]ETES [facility] MELLITUS INC W/DIABETIC NEPHROPATHY E1065 TYPE 1 08-10-2015 [place] DIABETES [facility] MELLITUS INC WITH HYPERGLYCEM IA E138 OTH SPEC 08-10-2015 [facility] DIABETES PHYSICIANS, MELLITUS PLLC W/UNS COMPLICATIO NS F85769 CELLULITIS 08-10-2015 [facility] OF PHYSICIANS, UNSPECIFIED PLLC PART OF LIMB R739 HYPERGLYCEM 08-10-2015 [facility] UNSPECIFIED SERVICE L853 XEROSIS 08-09-2015 [place] CUTIS VALLEY INTERNAL MED E6601 MORBID 08-05-2015 [facility] SEVERE VALLEY OBESITY DUE INTERNAL TO EXCESS MEDI CALORIES I270 PRIMARY 07-20-2015 [facility] PULMONARY [facility] HYPERTENSIO CAMPUS N I5030 UNSPECIFIED 07-20-2015 [facility] CONGESTIVE [place] HEART FAILURE R0600 DYSPNEA 07-20-2015 [facility] M542 CERVICALGIA 07-12-2015 [facility] M546 PAIN IN 07-12-2015 [facility] THORACIC [facility] SPINE I509 HEART 07-11-2015 [place] FAILURE VALLEY UNSPECIFIED INTERNAL MED I8311 VARICOSE 07-11-2015 [place] RT [place] LOWER INTERNAL EXTREMITY MED W/INFLAMMAT ION M4003 POSTURAL 07-11-2015 [place] KYPHOSIS [place] CERVICOTHOR INTERNAL ACIC REGION MED R05 COUGH 06-05-2015 [facility] R600 LOCALIZED 05-09-2015 [facility] O I348 OTHER 05-05-2015 [place] [facility] NONRHEUMATI SERV C MITRAL FOUNDATION VALVE DISORDERS I361 NONRHEUMATI 05-05-2015 [place] [facility] C TRICUSPID SERV VALVE FOUNDATION INSUFFICIEN CY I371 NONRHEUMATI 05-05-2015 [facility] C PULMONARY SERV VALVE FOUNDATION INSUFFICIEN [...] INC ADULT N3020 OTHER 04-28-2015 [facility] CHRONIC [facility] WITHOUT HEMATURIA J209 ACUTE 03-31-2015 [facility] BRONCHITIS [facility] UNSPECIFIED INC B77590 PERSONAL 03-31-2015 [facility] HISTORY OF [facility] NICOTINE INC DEPENDENCE A499 BACTERIAL 03-23-2015 [place] [facility] INFECTION SERV UNSPECIFIED FOUNDATION R279 UNSPECIFIED 03-19-2015 [facility] LACK OF [facility] H[facility] COORDINATIO INC N Z5189 ENCOUNTER 03-19-2015 [facility] FOR OTHER [facility] SPECIFIED INC AFTERCARE 77957 DIAB W/O 03-17-2015 [facility] COMP TYPE I HOME [JUV] NOT MEDICAL STATED EQUIPME UNCNTRL 64116 OBSTRUCTIVE 03-17-2015 [facility] SLEEP HOME APNEA MEDICAL EQUIPME 02933 MULTIPLE 03-17-2015 [facility] CLOSED HOME PELVIC FX MEDICAL DISRUPT EQUIPME PELVIC TE-MOAK 2449 UNSPECIFIED 03-10-2015 [facility] HYPOTHYROID INC ISM 77161 DIAB W/O 03-10-2015 [facility] COMP TYPE [facility] II/UNS NOT INC STATED UNCNTRL 5854 CHRONIC 03-10-2015 [place] [facility] DISEASE INC STAGE IV (SEVERE) 5990 URINARY 03-10-2015 [place] TRACT [facility] INFECTION INC SITE NOT SPECIFIED 85975 UNSPECIFIED 03-10-2015 [place] [facility] OSTEOPOROSI INC S 4019 UNSPECIFIED 03-02-2015 [facility] ESSENTIAL VALLEY HYPERTENSIO INTERNAL N MEDI 4541 VARICOSE 03-02-2015 [place] LOWER VALLEY INTERNAL EXTREMITIES MEDI W/INFLAMMAT ION 48385 UNSPECIFIED 03-02-2015 [place] CONSTIPATIO INTERNAL N MEDI 5939 UNSPECIFIED 03-02-2015 [place] DISORDER VALLEY OF KIDNEY INTERNAL AND URETER MEDI 7823 EDEMA 03-02-2015 [place] [place] INTERNAL MEDI 06617 UNSPECIFIED 03-02-2015 [place] RETENTION VALLEY OF URINE INTERNAL MEDI 30999 UNSPECIFIED 02-24-2015 [facility] ARTHROPATHY [facility] P MULTIPLE SITES 7813 LACK OF 02-24-2015 [facility] P V571 OTHER 02-24-2015 [place] PHYSICAL [facility] THERAPY INC 5952 OTHER 02-03-2015 [facility] CYSTITIS [facility] P 2761 HYPOSMOLALI 01-17-2015 [facility] TY AND/OR HEALTH HYPONATREMI CAMPUS A 48915 LEUKOCYTOSI 01-17-2015 [facility] S HEALTH UNSPECIFIED CAMPUS 5849 ACUTE 01-17-2015 [facility] KIDNEY HEALTH FAILURE CAMPUS UNSPECIFIED 7197 DIFFICULTY 01-17-2015 [facility] IN WALKING HEALTH CAMPUS 11038 MUSCLE 01-17-2015 [facility] WEAKNESS HEALTH (GENERALIZE CAMPUS D) 2968 UNSPECIFIED 01-17-2015 [facility] DEBILITY HEALTH CAMPUS 9953 ALLERGY 01-17-2015 [facility] UNSPECIFIED HEALTH NOT CAMPUS ELSEWHERE CLASSIFIED 13581 HTN CKD UNS 12-25-2014 [place] [facility] W/CKD SERV STAGE I FOUNDATION THRU STAGE IV/UNS 515 POSTINFLAMM 12-16-2014 [facility] ATORY [facility] PULMONARY FIBROSIS V5881 FITTING AND 12-16-2014 [facility] ADJUSTMENT [facility]BILEX OF VASCULAR CATHETER 4280 CONGESTIVE 12-09-2014 [facility] HEART [facility] FAILURE UNSPECIFIED 4293 CARDIOMEGAL 12-09-2014 [facility] Y [facility] 1101 DERMATOPHYT 12-04-2014 [facility] OSIS OF E NAIL 86422 DIAB 12-04-2014 [facility] W/PERIPH E CIRC D/O TYPE II/UNS NOT UNCNTRL 4439 UNSPECIFIED 12-04-2014 [facility] PERIPHERAL E VASCULAR DISEASE 9172 FOOT&TOE 12-04-2014 [facility] BLISTER E WITHOUT MENTION OF INFECTION 9243 CONTUSION 12-04-2014 [facility] OF TOE E 05243 ABDOMINAL 11-03-2014 [place] PAIN RIGHT MEDICAL UPPER IMAGING ASS QUADRANT 5533 DIAPHRAGMAT 11-01-2014 [place] KODY W/O MEDICAL MENTION IMAGING ASS OBSTRUCTION /GANGREN 7905 OTHER 11-01-2014 [place] NONSPECIFIC MEDICAL ABNORMAL IMAGING ASS SERUM ENZYME LEVELS 7862 COUGH 10-30-2014 [facility] V5869 LONG-TERM 10-30-2014 [facility] (CURRENT) [facility] USE OF INC OTHER MEDICATIONS 95360 UNSPECIFIED 10-28-2014 [facility] OTALGIA [facility] 7224 DEGENERATIO 10-28-2014 [place] N OF MEDICAL CERVICAL IMAGING ASS INTERVERTEB RAL DISC 7231 CERVICALGIA 10-28-2014 [facility] 21805 SENILE 06-23-2014 [facility] OSTEOPOROSI [facility] S INC 2689 UNSPECIFIED 05-20-2014 [facility] VITAMIN D [facility] DEFICIENCY INC 2724 OTHER AND 05-20-2014 [facility] UNSPECIFIED [facility] INC HYPERLIPIDE VICTORIANO 12723 OTHER 05-20-2014 [facility] OSTEOPOROSI [facility] S INC 89734 HYPERTENSIV 02-20-2014 [facility] E HEART [facility] DISEASE INC UNSPEC W/HEART FAIL 4660 ACUTE 02-20-2014 [facility] BRONCHITIS [facility] INC 490 BRONCHITIS 02-20-2014 [facility] N [facility]ERG[facility]Y SPECIFIED PHYS ACUTE OR CHRONIC 11277 SWELLING OF 02-20-2014 [facility] N EMERGENCY PHYS 5853 CHRONIC 11-18-2013 [place] [facility] DISEASE FOUNDATIO STAGE III (MODERATE) 586 UNSPECIFIED 10-29-2013 [facility] RENAL [facility]YSIC[facility] FAILURE [place] 7262 OTHER 05-30-2013 [facility] AFFECTIONS PHYSICIANS OF SHOULDER GROUP REGION NEC 96473 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-2013 [facility] 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 19822 DISORDER OF 05-21-2013 [place] BONE AND MEDICAL CARTILAGE IMAGING ASS UNSPECIFIED V1559 PERSONAL 05-21-2013 [place] HISTORY OF MEDICAL OTHER IMAGING ASS INJURY V4981 ASYMPTOMATI 05-21-2013 [place] C MEDICAL POSTMENOPAU IMAGING ASS KEELY STATUS 78637 UNSPECIFIED 04-29-2013 [place] INFECTION SERVICES IN CCE & UNS SITE 4659 ACUTE URIS 04-29-2013 [place] OF EMERGENCY UNSPECIFIED SERVICES SITE 05603 CRAMP OF 04-05-2013 [facility] LIM[place] PHYSICIANS [place] 7241 PAIN IN 01-16-2013 [facility] SPINE [facility] P 20398 ORTHOPNEA 01-16-2013 [facility] P 39354 OTHER 01-16-2013 [place] DYSPNEA AND EMERGENCY SERVICES RESPIRATORY ABNORMALITI ES 7265 ENTHESOPATH 10-17-2012 [place] Y OF HIP [facility] REGION INC 10283 PAIN IN 08-22-2012 [place] JOINT MEDICAL PELVIC IMAGING ASS REGION AND THIGH 2749 GOUT, 07-16-2012 [place] [address] SHORTNESS 05-28-2012 [facility]IC 4240 MITRAL 05-27-2012 [place] [facility] DISORDERS INC 33786 OSTEOARTHRO 05-27-2012 [place] S UNSPEC [facility] WHETHER INC GEN/LOC UNSPEC SITE 69568 CHEST PAIN 05-27-2012 [place] UNSPECIFIED [facility]ICAL IMAGING ASS 41914 OTHER CHEST 05-27-2012 [facility] [place] P 5859 CHRONIC 12-01-2011 [place] [facility] DISEASE INC UNSPECIFIED 73743 HYPERSOMNIA 11-15-2011 [facility] WITH SLEEP [place] APNEA UNSPECIFIED 40122 ANEMIA OF 10-30-2011 [facility] P DISEASE 2859 UNSPECIFIED 10-30-2011 [place] ANEMIA [facility] 25199 DEGEN 10-30-2011 [place] THORACIC/TH MEDICAL ORACOLUMBAR IMAGING ASS INTERVERTEB RAL DISC 34009 DEGEN 10-30-2011 [place] LUMBAR/LUMB MEDICAL OSACRAL IMAGING ASS INTERVERTEB RAL DISC 7242 LUMBAGO 10-30-2011 [facility] P 7245 UNSPECIFIED 10-30-2011 [place] BACKACHE EMERGENCY SERVICES 7840 HEADACHE 10-30-2011 [facility] INC 56042 OTHER 10-20-2011 [place] DISEASES OF MEDICAL LUNG NOT IMAGING ASS ELSEWHERE CLASSIFIED 5199 UNSPECIFIED 10-20-2011 [place] DISEASE OF MEDICAL IMAGING ASS RESPIRATORY SYSTEM V5867 LONG-TERM 10-19-2011 [facility] USE OF [facility] P 3559 MONONEURITI 10-14-2011 [facility] S OF HOME UNSPECIFIED MEDICAL SITE EQUIPME 37909 OTHER 10-14-2011 [facility] MALAISE AND HOME FATIGUE MEDICAL EQUIPME 5180 PULMONARY 10-05-2011 [place] COLLAPSE [facility] ASS 54540 OTHER 09-30-2011 [facility] STAPHYLOCOC [facility] CUS INC INFECTION IN CCE & UNS SITE 2768 HYPOPOTASSE 09-30-2011 [facility] VICTORIANO [employer] 2888 OTHER 09-30-2011 [facility] SPECIFIED DISEASE OF ASSOCIATES, WHITE BLOOD PSC CELLS 4599 UNSPECIFIED 09-30-2011 [facility] CIRCULATORY INC SYSTEM DISORDER 486 PNEUMONIA, 09-30-2011 [facility] ORGANISM [facility] UNSPECIFIED INC 30913 OTHER 09-30-2011 [place] SPECIFIED MEDICAL DISORDERS IMAGING ASS OF BLADDER 35717 OSTEOARTHRO 09-30-2011 [place] SIS UNSPEC MEDICAL WHETHER IMAGING ASS GEN/LOC LOWER LEG 28066 EFFUSION OF 09-30-2011 [place] LOWER LEG MEDICAL JOINT IMAGING ASS 7291 UNSPECIFIED 09-30-2011 [facility] MYALGIA [employer] MYOSITIS 7295 PAIN IN 09-30-2011 [facility] SOFT TISSUES OF ASSOCIATES, LIMB PSC 7821 RASH AND 09-14-2011 [facility] OTHER NONSPECIFIC ASSOCIATES, SKIN PSC ERUPTION V770 SCREENING 09-14-2011 [facility] FOR THYROID DISORDER ASSOCIATES, [facility] V7791 SCREENING 09-14-2011 [facility] FOR LIPOID DISORDERS ASSOCIATES, PSC 10833 DIAB 06-24-2011 [facility] W/NEURO MANIFESTS TYPE II/UNS NOT UNCNTRL 7038 OTHER 06-24-2011 [facility] MAR SPECIFIED DISEASE OF NAIL 49842 SECONDARY 03-29-2011 [facility] OSTEOARTHRO CLINIC PSC SIS LOWER LEG 65174 PAIN IN 03-29-2011 [facility] JOINT, [facility] LOWER LEG INC 94361 BACKGROUND 03-25-2011 [facility] DIABETIC VISION RETINOPATHY 18643 NUCLEAR 03-25-2011 [facility] SCLEROSIS VISION 7820 DISTURBANCE 02-09-2011 [facility] OF SKIN [facility] SENSATION INC 2767 HYPERPOTASS 02-07-2011 [facility] EMIA ASSOCIATES 460 ACUTE 02-07-2011 [facility] NASOPHARYNG ASSOCIATES ITIS 6929 CONTACT 01-27-2011 [facility] DERMATITIS& EMERGENCY OTHER SERVICES ECZEMA DUE UNSPEC CAUSE 79344 PAIN IN 12-09-2010 [facility] JOINT, ASSOCIATES MULTIPLE SITES 54799 UNSPEC 10-28-2010 ALLR[facility] JR VENTRAL ELAINE KODY W/O MENTION OBST/GANGRE N 70073 ABDOMINAL 09-21-2010 [facility] PAIN, [facility] GENERALIZED INC 7831 ABNORMAL 08-24-2010 [facility] WEIGHT GAIN PHYSICIANS [place] 5110 PLEURISY 07-18-2010 [facility] WITHOUT EMERGENCY MENTION SERVICES EFFUS/[place] [address] PAINFUL 07-18-2010 [place] RESP[facility]ATION [facility] 2721 PURE 07-08-2010 [facility] HYPERGLYCER PHYSICIANS IDEMIA [place] 7944 NONSPECIFIC 07-07-2010 [facility] ABNORM ASSOCIATES RESULTS KIDNEY FUNCTION STUDY 22924 ASTHMA, 06-16-2010 [facility] UNSPECIFIED EMERGENCY , SERVICES UNSPECIFIED STATUS 10521 DIAB 05-21-2010 [facility] LANNY W/OPHTH MANIFESTS TYPE II/UNS NOT UNCNTRL 8250 CLOSED 04-28-2010 [facility] FRACTURE OF [facility] CALCANEUS INC V5416 AFTERCARE 04-28-2010 [place] HEALING MEDICAL TRAUMATIC IMAGING ASS FRACTURE LOWER LEG 8248 UNSPECIFIED 03-31-2010 [place] CLOSED MEDICAL FRACTURE OF IMAGING ASS ANKLE 11427 OTHER ANKLE 03-31-2010 [facility] [employer] STR[facility] S INC 9596 INJURY 02-17-2010 [place] OTHER AND MEDICAL UNSPECIFIED IMAGING ASS HIP AND THIGH 9597 INJURY 02-17-2010 [place] OTHER&UNSPE MEDICAL CIFIED KNEE IMAGING ASS LEG ANKLE&FOOT 920 CONTUSION 02-16-2010 [facility] OF FACE EMERGENCY SCALP AND SERVICES NECK EXCEPT EYE 82682 CONTUSION 02-16-2010 [facility] OF HIP [facility] INC E8859 FALL FROM 02-16-2010 [facility] OTHER EMERGENCY SLIPPING SERVICES TRIPPING OR STUMBLING 99008 INSOMNIA 02-04-2010 [facility] UNSPECIFIED ASSOCIATES V0382 NEED PROPH 02-04-2010 [facility] VACCINATION ASSOCIATES AGAINST STREP PNEUMONE 69382 URINARY 11-04-2009 [facility] FREQUENCY ASSOCIATES 2811 OTHER 08-24-2009 [facility] VITAMIN B12 ASSOCIATES DEFICIENCY ANEMIA 514 PULMONARY 08-24-2009 [facility] CONGESTION ASSOCIATES AND HYPOSTASIS E8490 PLACE OF 07-10-2009 [place] OCCURRENCE, MEDICAL HOME IMAGING ASSOCIATES 96838 GEN 04-15-2009 [facility] INVOLVING MULTIPLE SITES 7919 OTHER 03-31-2009 [facility] NONSPECIFIC [facility] FINDING INC EXAMINATION OF URINE 53664 NEPHRITIS&N 03-24-2009 [facility] EPHROPATHY PRIMARY W/OTH CARE CENTER PATHOLOG KIDNEY LES 32263 NOCTURIA 03-11-2009 [facility] 81345 HYPERSOMNIA 02-26-2009 [facility] UNSPECIFIED 25791 DIAB 11-28-2008 [facility] W/OPHMADONNA FLYNN A MANIFESTS TYPE II/UNS TYPE UNCNTRL 4619 ACUTE 06-17-2008 [facility] SINUSITIS, ASSOCIATES UNSPECIFIED 8082 CLOSED 03-18-2008 [facility] FRACTURE OF L REHAB PUBIS ASSOC PSC 7089 UNSPECIFIED 11-17-2007 [facility] URTICARIA ASSOCIATES 6868 OTH SPEC 11-12-2007 [facility] PROF SERV TISSUE V642 SURG/OTH 11-11-2007 [facility] PROC NOT [facility] CARRIED OUT INC BECAUSE PTS DECN Immunization Name Date Route CVX Reacti Commen Provid Is Given on t er Refuse d PPSV23 FAMILY No 2009 CARE VACCIN ASSOCI E 2 ATES YRS OR OLDER FOR SUBQ/I M USE Procedures Procedure DOS Code Location Performer Comment SBSQ 60582 [facility] 7 PHYSICIAN CARE/DAY S GROUP 25 MINUTES FLUORO [id number] [facility] MULTI 7 [facility] CORONARY INC INC ARTERIES LOW OSMOLAR CONT DILAT [id number] [facility] CORONARY 7 [facility] ART 2 ART INC INC 2 RX-ELUT IL DEVC PERQ FLUOROSCO [id number] [facility] PY LEFT 7 [facility] HEART LOW INC INC OSMOLAR CONTRAST FLUORO [id number] [facility] BILATERAL 7 [facility] RENAL INC INC ART LOW OSMOLAR CONTRST INITIAL 50658 [facility] 7 PHYSICIAN CARE/DAY S GROUP 70 MINUTES MEASUREME [id number] [facility] NT 7 [facility] CARDIAC INC INC SAMPLING PRESS LT HEART PERQ AMBULANCE A0429 [facility] 7 AMBULANCE AMBULANCE [facility] SERV[facility] SERVICE EMERGENCY TRANSPORT GROUND A0425 [facility] 7 AMBULANCE AMBULANCE PER SERVICE SERVICE STATUTE [facility] 97876 [facility] BARRETO JR ROUTINE 7 [facility] W/LEAST P 12 LDS I&R ONLY LIPID 11611 [facility] IDXON PANEL 6 [facility] INC INC HEMOGLOBI 82063 [facility] N 6 [facility]OS[facility] GLYCOSYLA INC INC ALEX A1C COLLECTIO 79434 [facility] N VENOUS 6 [facility]OS[facility] BLOOD INC INC VENIPUNCT URE COMPREHEN 16814 [facility] SIVE 6 [facility] [place] [address] [facility] THYROID 6 [facility]OS[facility] STIMULATI INC INC NG HORMONE TSH VOLUME 00639 COMBINED COMBINED MEASUREME 6 PHYSICIAN PHYSICIAN NT TIMED S LA S LA COLLECTIO N EACH RENAL 85546 COMBINED COMBINED FUNCTION 6 PHYSICIAN PHYSICIAN PANEL S LA S LA URNLS DIP 15987 COMBINED COMBINED 6 PHYSICIAN PHYSICIAN STICK/TAB S LA S LA LET REAGENT AUTO MICROSCOP Y BLOOD 61736 COMBINED COMBINED COUNT 6 PHYSICIAN PHYSICIAN COMPLETE S LA S LA AUTO&AUTO DIFRNTL WBC CULTURE 25921 COMBINED COMBINED BACTERIAL 6 PHYSICIAN PHYSICIAN S LA S LA QUANTTATI VE COLONY COUNT URINE CULTURE 58943 COMBINED COMBINED BCT 6 PHYSICIAN PHYSICIAN ISOL&PRSM S LA S LA PTV ID ISOLATE EA URINE 25 61367 COMBINED COMBINED HYDROXY 6 PHYSICIAN PHYSICIAN INCLUDES S LA S LA FRACTIONS IF PERFORMED A4258 ARRIVA ARRIVA WERED 6 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 EACH NORMAL A4256 ARRIVA ARRIVA LOW AND 6 MEDICAL MEDICAL HIGH CALIBRATO R SOLUTION/ CHIPS LANCETS A4259 ARRIVA ARRIVA PER BOX 6 MEDICAL MEDICAL OF 100 BLD GLU A4253 ARRIVA ARRIVA TEST/REAG 6 MEDICAL MEDICAL T STRIPS HOME BLD GLU MON-50 COLLECTIO 89663 [facility] N VENOUS 6 [facility] BLOOD [facility]CT [facility] G0378 AZCK DIXON OBSERVATI 6 [facility] ON INC INC SERVICE PER HOUR GLUC BLD 13197 [facility] GLUC MNTR 6 [facility] DEV INC INC CLEARED FDA SPEC HOME USE BASIC 58779 [facility] METABOLIC 6 [facility] PANEL INC INC CALCIUM TOTAL AMB A0427 MARY HERNANDEZ SERVICE 6 [facility] AMBULANCE ALS SERVICE SERVICE EMERGENCY TRANSPORT LEVEL 1 CREATINE 34514 [facility] KINASE 6 [facility] TOTAL INC INC THER 94255 [facility] PROPH/DX 6 [facility] NJX IV INC INC PUSH SINGLE/1S T SBST/DRUG ECG 45489 [facility] ROUTINE 6 [facility] ECG INC INC W/LEAST 12 LDS TRCG ONLY W/O I&R GLUC BLD 12897 [facility] GLUC MNTR 6 [facility] DEV INC INC CLEARED FDA SPEC HOME USE BLOOD 15001 [facility] COUNT 6 [facility] COMPLETE INC INC AUTO&AUTO DIFRNTL WBC URNLS DIP 64189 [facility] 6 [facility] STICK/TAB INC INC LET REAGENT AUTO MICROSCOP Y PRESSURIZ 56922 [facility] ED/NONPRE 6 [facility] SSURIZED INC INC INHALATIO N TREATMENT COMPREHEN 15583 [facility] SIVE 6 [facility] METABOLIC INC INC PANEL CREATINE 05686 [facility] KINASE MB 6 [facility] FRACTION INC INC [facility] G0378 [facility] D[facility] OBSERVATI 6 [facility] ON INC INC SERVICE PER HOUR COLLECTIO 91443 [facility] D[facility] N VENOUS 6 [facility] BLOOD INC INC VENIPUNCT URE GROUND A0425 [facility] MILEAGE 6 [facility] AMBULANCE PER SERVICE SERVICE STATUTE MILE ECG 07397 ZACK MCLEAN ROUTINE 6 [facility] W/LEAST P 12 LDS I&[place] [address] [facility] D[facility] TROPONIN 6 [facility] QUANTITAT INC INC MARIBEL STANDARD K0001 REID LOMAS 6 HOME HOME R MEDICAL MEDICAL EQUIPME EQUIPME HOS BED E0260 REID MATHEWS SEMI-ELEC 6 HOME HOME W/ANY MEDICAL MEDICAL TYPE SIDE EQUIPME EQUIPME RAIL W/MATTRSS HOS BED E0260 REID GLASSRELL SEMI-ELEC 6 HOME HOME W/ANY MEDICAL MEDICAL TYPE SIDE EQUIPME EQUIPME RAIL W/MATTRSS STANDARD K0001 REID MATHEWS WATSONI 6 HOME HOME R MEDICAL MEDICAL EQUIPME EQUIPME HOS BED E0260 REID MATHEWS SEMI-ELEC 6 HOME HOME W/ANY MEDICAL MEDICAL TYPE SIDE EQUIPME EQUIPME RAIL W/MATTRSS STANDARD K0001 REID GLASSJOHN DELGADILLOELAINEI 6 HOME HOME R MEDICAL MEDICAL EQUIPME EQUIPME NORMAL A4256 ARRIVA ARRIVA LOW AND 6 MEDICAL MEDICAL HIGH CALIBRATO R SOLUTION/ CHIPS LANCETS A4259 ARRIVA ARRIVA PER BOX 6 MEDICAL MEDICAL OF 100 BLD GLU A4253 ARRIVA ARRIVA TEST/REAG 6 MEDICAL MEDICAL T STRIPS HOME BLD GLU MON-50 STANDARD K0001 REID MATHEWS ELIEELAINEI 6 HOME HOME R MEDICAL MEDICAL EQUIPME EQUIPME HOS BED E0260 REIDJOHN MATHEWS SEMI-ELEC 6 HOME HOME W/ANY MEDICAL MEDICAL TYPE SIDE EQUIPME EQUIPME RAIL W/MATTRSS BASIC 22493 ZACK DIXON METABOLIC 6 [facility] PANEL INC INC CALCIUM TOTAL COLLECTIO 38582 ZACK DIXON N VENOUS 6 [facility] BLOOD INC INC VENIPUNCT URE LIPID 01510 ZACK DIXON PANEL 6 [facility] INC INC HEMOGLOBI 28609 ZACK DIXON N 6 [facility] GLYCOSYLA INC INC ALEX A1C HOS BED E0260 REID REID SEMI-ELEC 6 HOME HOME W/ANY MEDICAL MEDICAL TYPE SIDE EQUIPME EQUIPME RAIL W/MATTRSS STANDARD K0001 REID CHAUDHARII 6 HOME HOME R MEDICAL MEDICAL EQUIPME EQUIPME URNLS DIP ZACK DIXON 6 [facility] [...] STRIPS HOME BLD GLU MON-50 GLUC BLD 04799 ZACK DIXON GLUC MNTR 6 [facility] DEV INC INC CLEARED FDA SPEC [facility] [id number] ZACK DIXON OBSERVATI 6 [facility] ON INC INC SERVICE PER HOUR OBSERVATI 41705 [facility] [place] [facility]MAINE DIS[facility] G0378 ZACK DIXON OBSERVATI 6 [facility] ON INC INC SERVICE PER HOUR BASIC 32149 ZACK DIXON METABOLIC 6 [facility] PANEL INC INC CALCIUM TOTAL BLOOD 44060 ZACK DIXON COUNT 6 [facility] COMPLETE INC INC AUTO&[place] [address] ZACK DIXON TROPONIN 6 [facility] QUANTITAT INC INC MARIBEL GLUC BLD 49300 ZACK DIXON GLUC MNTR 6 [facility] DEV INC INC CLEARED FDA SPEC HOME USE COLLECTIO 14477 ZACK DIXON N VENOUS 6 [facility] BLOOD INC INC VENIPUNCT URE COMPREHEN 12292 ZACK DIXON SIVE 6 [facility] METABOLIC INC INC PANEL CREATINE 87252 ZACK DIXON KINASE MB 6 [facility] FRACTION INC INC ONLY INJECTION J2405 ZACK DIXON 6 [facility] ONDANSETR INC INC ON HCL PER [facility] G0378 ZACK [facility]IXON OBSERVATI 6 [facility] ON INC INC SERVICE PER HOUR COLLECTIO 02713 ZACK DIXON N VENOUS 6 [facility] [place]LO[place] [address] ZACK DIXON TROPONIN 6 [facility] QUANTITAT INC INC MARIBEL GLUC BLD 31344 ZACK DIXON GLUC MNTR 6 [facility] DEV INC INC CLEARED FDA SPEC HOME USE URNLS DIP 64101 ZACKSHANDA DIXON 6 [facility] STICK/TAB INC INC LET REAGENT AUTO MICROSCOP Y THERAPEUT 72615 ZACK DIXON IC 6 [facility] INJECTION INC INC IV PUSH EACH NEW DRUG BLOOD 93622 ZACK DIXON COUNT 6 [facility] COMPLETE INC INC AUTO&AUTO DIFRNTL WBC ECG 62616 ZACK BARRETO JR ROUTINE 6 [facility] W/LEAST P 12 LDS I&R ONLY INITIAL 66904 [facility]IN[facility] [address] ON INTERNAL CARE/DAY MED 30 MINUTES GROUND A0425 [facility] MILEAGE 6 AMBULANCE AMBULANCE [place] [address] ZACK DIXON INFUSION 6 [facility] THERAPY/P INC INC ROPHYLAXI S /DX 1ST TO 1 HR RADIOLOGI 91444 ZACK DIXON C 6 [facility] EXAMINATI INC INC [place] [address] ZACK DIXON HEAD/BRAI 6 [facility] N W/O INC INC CONTRAST MATERIAL AMB A0427 [facility] SERVICE 6 AMBULANCE AMBULANCE ALS SERVICE SERVICE EMERGENCY TRANSPORT LEVEL 1 CREATINE 91963 ZACK DIXON KINASE 6 [facility] [place] [address] ZACK DIXON LIPASE 6 [facility] INC INC ECG 28983 ZACK DIXON ROUTINE 6 [facility] ECG INC INC W/LEAST 12 LDS TRCG ONLY W/O I&[place] [address] COMBINED COMBINED MAGNESIUM 6 PHYSICIAN PHYSICIAN S LA S LA CYANOCOBA 24792 COMBINED COMBINED SOHA 6 PHYSICIAN PHYSICIAN VITAMIN S LA S LA B-12 [place] [address] COMBINED COMBINED PHOSPHORU 6 PHYSICIAN PHYSICIAN S S LA S LA INORGANIC ALBUMIN 76060 COMBINED COMBINED SERUM 6 PHYSICIAN PHYSICIAN PLASMA/WH S LA S LA OLE BLOOD BLOOD 40895 COMBINED COMBINED COUNT 6 PHYSICIAN PHYSICIAN COMPLETE S LA S LA AUTO&[place] [address] COMBINED COMBINED THYROID 6 PHYSICIAN PHYSICIAN STIMULATI S LA S LA NG HORMONE TSH BASIC 66989 COMBINED COMBINED METABOLIC 6 PHYSICIAN PHYSICIAN PANEL [place] [address] COMBINED COMBINED BLOOD/URI 6 PHYSICIAN PHYSICIAN C ACID S LA S LA STANDARD K0001 REID LOMAS 6 HOME HOME R MEDICAL MEDICAL EQUIPME EQUIPME HOS BED E0260 REID MATHEWS SEMI-ELEC 6 HOME HOME W/ANY MEDICAL MEDICAL TYPE SIDE EQUIPME EQUIPME RAIL W/MATTRSS PHYS G0179 [facility] RE-CERT 6 [place] TRACY MCR-COVR [facility]NAL [facility] SRVC RE-CERT PRD COMPREHEN 01071 ZACK DIXON SIVE 6 [facility] METABOLIC INC INC PANEL GLUC BLD 28768 ZACK DIXON GLUC MNTR 6 [facility] DEV INC INC CLEARED FDA SPEC HOME USE BLOOD 05947 ZACK DIXON COUNT 6 [facility] COMPLETE INC INC AUTO&AUTO DIFRNTL WBC URNLS DIP 12470 ZACK DIXON 6 [facility] STICK/TAB INC INC LET REAGENT AUTO MICROSCOP Y AMBULANCE A0429 [facility] SERVICE 6 AMBULANCE AMBULANCE BLS SERVICE SERVICE EMERGENCY TRANSPORT GROUND A0425 [facility] MILEAGE 6 AMBULANCE AMBULANCE PER SERVICE SERVICE STATUTE MILE SBSQ 91978 [facility] NURSING 6 [place] TRACY FACIL INTERNAL CARE/DAY MED NEW PROBLEM 25 MIN SBSQ 48219 [facility] CHAPMAN NURSING 6 [place] FACIL INTERNAL CARE/DAY MEDI MINOR COMPLJ 15 MIN HOS BED E0260 REID MATHEWS SEMI-ELEC 6 HOME HOME W/ANY MEDICAL MEDICAL TYPE SIDE EQUIPME EQUIPME RAIL W/MATTRSS STANDARD K0001 REID CHAUDHARII 6 HOME HOME R MEDICAL MEDICAL EQUIPME EQUIPME RADEX 29057 SYMPHONY SYMPHONY SPINE 6 [facility] MOBILEX CERVICAL 2 OR 3 VIEWS RADEX 08570 SYMPHONY SYMPHONY SPINE 6 [facility] MOBILEX THORACIC 2 VIEWS SBSQ [address] [place] [address] INTERNAL CARE/DAY MED NEW PROBLEM 25 MIN STANDARD K0001 REID CHAUHDARIEnma 5 HOME HOME R MEDICAL MEDICAL EQUIPME EQUIPME HOS BED E0260 REID REID SEMI-ELEC 5 HOME HOME W/ANY MEDICAL MEDICAL TYPE SIDE EQUIPME EQUIPME RAIL W/MATTRSS COMPREHEN 43491 ZACK DIXON SIVE 5 [facility] METABOLIC INC INC PANEL CULTURE 64507 ZACK DIXON BACTERIAL 5 [facility] INC INC QUANTTATI VE COLONY COUNT URINE AMB A0427 [facility] 5 AMBULANCE AMBULANCE ALS SERVICE SERVICE EMERGENCY TRANSPORT LEVEL 1 GROUND A0425 [facility] 5 AMBULANCE AMBULANCE PER SERVICE SERVICE STATUTE [facility] IC 5 [facility] PEPTIDE INC INC BLOOD 79496 ZACK DIXON COUNT 5 [facility] COMPLETE INC INC AUTO&AUTO DIFRNTL WBC SUSCEPTIB 74196 ZACK DIXON LTY STDY 5 [facility] ANTIMICRB INC INC IAL MICRO/AGA R DILUTJ URNLS DIP 08045 ZACK DIXON 5 [facility] STICK/TAB INC INC LET REAGENT AUTO MICROSCOP Y RADIOLOGI 08289 ZACK DIXON C EXAM 5 [facility] CHEST 2 INC INC VIEWS FRONTAL&L ATERAL PRESSURIZ 91171 ZACK DIXON ED/NONPRE 5 [facility] SSURIZED INC INC INHALATIO N TREATMENT STANDARD K0001 REIDJOHN CHAUDHARIEnma 5 HOME HOME R MEDICAL MEDICAL EQUIPME EQUIPME HOS BED E0260 REID REID SEMI-ELEC 5 HOME HOME W/ANY MEDICAL MEDICAL TYPE SIDE EQUIPME EQUIPME RAIL W/MATTRSS SBSQ 73545 [facility] 5 CULAR MAT CARE/DAY CONSULTAN 25 TS O MINUTES INITIAL 38471 [facility] CARE/DAY CONSULTAN 70 TS O MINUTES ECHO 61512 [facility] 5 MEDICAL JUAN J C R-T 2D SERV W/WO FOUNDATIO M-MODE N REC F-UP/LMTD RADIOLOGI 43770 [facility] SHERI C EXAM 5 MEDICAL MELIDA CHEST 2 IMAGING VIEWS ASS FRONTAL&L ATERAL HOS BED E0260 REID MATHEWS SEMI-ELEC 5 HOME HOME W/ANY MEDICAL MEDICAL TYPE SIDE EQUIPME EQUIPME RAIL W/MATTRSS STANDARD K0001 REID DELGADILLOCHAI 5 HOME HOME R MEDICAL MEDICAL EQUIPME EQUIPME THERAPEUT 09369 ZACK DIXON IC PX 1/> 5 [facility] AREAS INC INC EACH 15 MIN EXERCISES NORMAL A4256 ARRIVA ARRIVA LOW AND 5 MEDICAL MEDICAL HIGH CALIBRATO R SOLUTION/ CHIPS LANCETS A4259 ARRIVA ARRIVA PER BOX 5 MEDICAL MEDICAL OF 100 BLD GLU A4253 ARRIVA ARRIVA TEST/REAG 5 MEDICAL MEDICAL T STRIPS HOME BLD GLU MON- URNLS DIP 90723 ZACK CALDERON 5 [facility] LET RGNT P NON-AUTO W/O MICRSCP THERAPEUT 09426 ZACK DIXON IC PX 1/> 5 [facility] AREAS INC INC EACH 15 MIN EXERCISES HOS BED E0260 REID MATHEWS SEMI-ELEC 5 HOME HOME W/ANY MEDICAL MEDICAL TYPE SIDE EQUIPME EQUIPME RAIL W/MATTRSS STANDARD K0001 REID CHAUDHARII 5 HOME HOME R MEDICAL MEDICAL EQUIPME EQUIPME THERAPEUT 57448 ZACK DIXON IC PX 1/> 5 [facility] AREAS INC INC EACH 15 MIN EXERCISES THERAPEUT 10974 ZACK DIXON IC PX 1/> 5 [facility] AREAS INC INC EACH 15 MIN EXERCISES 25 73424 ZACK CASTELAN 5 [facility] INCLUDES INC INC FRACTIONS IF PERFORMED COLLECTIO 86955 ZACK DIXON N VENOUS 5 [facility] [place] [address] ZACK DIXON THYROID 5 [facility] STIMULATI INC INC NG HORMONE TSH CULTURE 35740 ZACK DIXON BACTERIAL 5 [facility] INC INC QUANTTATI VE COLONY COUNT URINE CULTURE 49247 ZACK DIXON BCT 5 [facility] ISOL&PRSM INC INC PTV ID ISOLATE EA URINE RENAL 14420 ZACK DIXON FUNCTION 5 [facility] PANEL INC INC HEMOGLOBI 64740 ZACK DIXON N 5 [facility] GLYCOSYLA INC INC ALEX A1C BLOOD 00654 ZACK DIXON COUNT 5 [facility] COMPLETE INC INC AUTO&AUTO DIFRNTL WBC SUSCEPTIB 24676 ZACK DIXON LTY STDY 5 [facility] ANTIMICRB INC INC IAL MICRO/AGA R DILUTJ URNLS DIP 78798 ZACK DIXON 5 [facility] STICK/TAB INC INC LET REAGENT AUTO MICROSCOP Y THERAPEUT 65445 ZACK DIXON IC PX 1/> 5 [facility] AREAS INC INC EACH 15 MIN EXERCISES THERAPEUT 75166 ZACK ZACK IC PX 1/> 5 [facility] AREAS INC INC EACH 15 MIN EXERCISES THERAPEUT 14927 ZACK DIXON IC PX 1/> 5 [facility] AREAS INC INC EACH 15 MIN EXERCISES THERAPEUT 35934 ZACK DIXON IC PX 1/> 5 [facility] AREAS INC INC EACH 15 MIN EXERCISES PHYSICAL 03099 ZACKSHANDA DIXON THERAPY 5 [facility] EVALUATIO INC INC N CATH CLCT P9612 ZACK CALDERON SPECIMEN 5 [facility] P PLACES SERVICE CULTURE 10633 ZACKSHANDA DIXON BACTERIAL 5 [facility] INC INC QUANTTATI VE COLONY COUNT URINE CULTURE 53898 ZACK DIXON BCT 5 [facility] ISOL&PRSM INC INC PTV ID ISOLATE EA URINE URNLS DIP 54339 ZACK CALDERON 5 [facility] LET RGNT P NON-AUTO W/O MICRSCP SUSCEPTIB 34913 ZACK DIXON LTY STDY 5 [facility] [...] MEDICAL TYPE SIDE EQUIPME EQUIPME RAIL W/MATTRSS ONELIA 94049 ZACK CALDERON POST-VOID 5 [facility] RESIDUAL P URINE&/BL ADDER CAP CULTURE 34399 ZACK DIXON BACTERIAL 5 [facility] INC INC QUANTTATI VE COLONY COUNT URINE CULTURE 99208 ZACK DIXON BCT 5 [facility] ISOL&PRSM INC INC PTV ID ISOLATE EA URINE SUSCEPTIB 98894 ZACK DIXON LTY STDY 5 [facility] ANTIMICRB INC INC IAL MICRO/AGA R DILUTJ RADIOLOGI 02149 SYMPHONY SYMPHONY C 5 MOBILEX MOBILEX EXAMINATI ON CHEST SINGLE VIEW FRONTAL RADIOLOGI 74658 SYMPHONY SYMPHONY C 5 MOBILEX MOBILEX EXAMINATI ON CHEST SINGLE VIEW FRONTAL DEBRIDEME 55491 [facility] NT NAIL 5 ARE ANDREZ ANY METHOD 6/> INITIAL 04236 [facility] NURSING 5 ARE ANDREZ FACILITY CARE/DAY 25 MINUTES SBSQ 08525 [facility] 5 [facility] INTERNAL CARE/DAY MED NEW PROBLEM 25 MIN BASIC 59429 COMBINED COMBINED METABOLIC 5 PHYSICIAN PHYSICIAN PANEL S LA S LA CALCIUM TOTAL BLOOD 04371 COMBINED COMBINED COUNT 5 PHYSICIAN PHYSICIAN COMPLETE S LA S LA AUTO&[place] [address] LIZZ BEINEKE ABDOMINAL 5 MEDICAL KAY REAL IMAGING TIME ASS W/[place] [address] LIZZ SHERI ABDOMEN & 5 MEDICAL MELIDA PELVIS IMAGING W/O ASS CONTRAST MATERIAL [facility]40 [facility] MEDICAL EXAMINATI IMAGING ON CHEST ASS SINGLE VIEW FRONTAL CRITICAL 45319 ZACK DIXON CARE 5 [facility] ED P P PATIENT INIT 30-74 MIN ECG 10676 ZACK MCLEAN ROUTINE 5 [facility] W/LEAST P 12 LDS I&R ONLY RADEX 01456 [place] FRANKY SPINE 5 MEDICAL KAY CERVICAL IMAGING 4 OR 5 ASS VIEWS RADEX 47012 [place] [facility] MAST[facility]IDS 5 MEDICAL KAY COMPL IMAGING MINIMUM 3 ASS VIEWS MI SIDE SPRING-PO A4258 ARRIVA ARRIVA WERED 5 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 A4259 ARRIVA ARRIVA PER BOX 5 MEDICAL MEDICAL OF 100 NORMAL A4256 ARRIVA ARRIVA LOW AND 5 MEDICAL MEDICAL HIGH CALIBRATO R SOLUTION/ CHIPS BLD GLU A4253 ARRIVA ARRIVA TEST/REAG 5 MEDICAL MEDICAL T STRIPS HOME BLD GLU MON-50 COMPREHEN 38730 COMBINED COMBINED SIVE 5 PHYSICIAN PHYSICIAN METABOLIC S LA S LA PANEL COLLECTIO 06986 ZACK DIXON N VENOUS 5 [facility] BLOOD INC INC VENIPUNCT URE RENAL 65471 ZACK DIXON FUNCTION 5 [facility] PANEL INC INC INJECTION J0897 ZACK DIXON 5 [facility] DENOSUMAB INC INC 1 MG THERAPEUT 92859 ZACK DIXON IC 5 [facility] PROPHYLAC INC INC TIC/DX INJECTION SUBQ/IM COLLECTIO 60973 ZACK DIXON N VENOUS 4 [facility] BLOOD INC INC VENIPUNCT URE CREATININ 38645 ZACK DIXON E OTHER 4 [facility] SOURCE INC INC DXA BONE 43103 ZACK DIXON DENSITY 4 [facility] STUDY 1/> INC INC SITES AXIAL SKEL CULTURE 93618 ZACK DIXON BACTERIAL 4 [facility] INC INC QUANTTATI VE COLONY COUNT URINE CULTURE 06709 ZACK DIXON BCT 4 [facility] ISOL&PRSM INC INC PTV ID ISOLATE EA URINE 25 91026 ZACK DIXON HYDROXY 4 [facility] INCLUDES [place] [address] ZACK DIXON PARATHORM 4 [facility] ONE INC INC RENAL 06985 ZACK DIXON FUNCTION 4 [facility] PANEL INC INC PROTEIN 85727 ZACK DIXON XCPT 4 [facility] REFRACTOM INC INC ETRY SERUM PLASMA/WH L BLD BLOOD 51012 ZACK DIXON COUNT 4 [facility] COMPLETE INC INC AUTO&AUTO DIFRNTL WBC SUSCEPTIB 76477 ZACK DIXON LTY STDY 4 [facility] ANTIMICRB INC INC IAL MICRO/AGA R DILUTJ URNLS DIP 54791 ZACK DIXON 4 [facility] STICK/TAB INC INC LET REAGENT AUTO MICROSCOP Y COMPREHEN 66465 COMBINED COMBINED SIVE 4 PHYSICIAN PHYSICIAN METABOLIC S LA S LA PANEL CREATINE 32462 ZACK ZACK KINASE MB 4 [facility] FRACTION INC INC ONLY CREATINE 30673 ZACK DIXON KINASE 4 [facility] [place] [address] ZACK DIXON TROPONIN 4 [facility] QUANTITAT INC INC MARIBEL BLOOD 07312 ZACK DIXON COUNT 4 [facility] COMPLETE INC INC AUTO&AUTO DIFRNTL WBC URNLS DIP 26454 ZACK DIXON 4 [facility] STICK/TAB INC INC LET REAGENT AUTO MICROSCOP Y RADIOLOGI 03410 ZACK DIXON C EXAM 4 [facility] CHEST 2 INC INC VIEWS FRONTAL&L ATERAL PRESSURIZ 25099 ZACK DIXON ED/NONPRE 4 [facility] SSURIZED INC INC INHALATIO N TREATMENT COMPREHEN 34487 ZACK DIXON SIVE 4 [facility] METABOLIC INC INC PANEL COLLECTIO 72218 ZACK DIXON N VENOUS 4 [facility] BLOOD INC INC VENIPUNCT URE RENAL 24822 ZACK DIXON FUNCTION 4 [facility] PANEL INC INC BLOOD 90342 ZACK DIXON COUNT 4 [facility] COMPLETE INC INC AUTO&AUTO DIFRNTL WBC 25 59061 ZACK DIXON HYDROXY 4 [facility] INCLUDES INC INC FRACTIONS IF PERFORMED THERAPEUT 39037 ZACK DIXON IC 4 [facility] PROPHYLAC INC INC TIC/DX INJECTION SUBQ/IM INJECTION J0897 ZACK ELLIOTTON 4 [facility] DENOSUMAB INC INC 1 MG BASIC 11041 COMBINED COMBINED METABOLIC 4 PHYSICIAN PHYSICIAN PANEL S LA S LA CALCIUM TOTAL COMPREHEN 35556 COMBINED COMBINED SIVE 4 PHYSICIAN PHYSICIAN METABOLIC S LA S LA PANEL COLLECTIO 97001 ZACK DIXON N VENOUS 4 [facility] BLOOD INC INC VENIPUNCT URE BASIC 49774 ZACK DIXON METABOLIC 4 [facility] PANEL INC INC CALCIUM TOTAL THERAPEUT 97787 ZACK DIXON IC 4 [facility] PROPHYLAC INC INC TIC/DX INJECTION SUBQ/IM INJECTION J0897 ZACK DIXON 4 [facility] DENOSUMAB INC INC 1 MG ARTHROCEN 11261 [facility] TESIS 3 PHYSICIAN JAM ASPIR&/IN S GROUP J MAJOR JT/BURSA W/O US INJECTION 67010 [facility] 1 TENDON 3 PHYSICIAN PHYSICIAN S GROUP S GROUP SHEATH/LI GAMENT APONEUROS IS INJ J0702 [facility] BETAMETHA 3 PHYSICIAN TONI SONE S GROUP ACETATE & PHOSPHATE 3 MG BASIC 26594 COMBINED COMBINED METABOLIC 3 PHYSICIAN PHYSICIAN PANEL S LA S LA CALCIUM TOTAL ALBUMIN 54106 ZACK DIXON URINE 3 [facility] MICROALBU INC INC MIN QUANTIATI VE 25 23882 ZACK DIXON HYDROXY 3 [facility] INCLUDES [place] [address] ZACK DIXON PARATHORM 3 [facility] ONE INC INC DXA BONE 89025 [facility] 3 MEDICAL MELIDA STUDY 1/> IMAGING SITES ASS AXIAL SKEL COLLECTIO 75889 ZACK DIXON N VENOUS 3 [facility] BLOOD INC INC VENIPUNCT URE RENAL 99520 ZACK DIXON FUNCTION 3 [facility] PANEL INC INC BLOOD 83954 ZACK DIXON COUNT 3 [facility] COMPLETE INC INC AUTO&AUTO DIFRNTL WBC URNLS DIP 30888 ZACKSHANDA DIXON 3 [facility] STICK/TAB INC INC LET REAGENT AUTO MICROSCOP Y RADIOLOGI 22216 [place] SHERI C EXAM 3 MEDICAL MELIDA CHEST 2 IMAGING VIEWS [place] FRONTAL&[place] [address] ZACK DIXON STREPTOCO 3 [facility] CCUS INC INC GROUP A IAADI 77134 ZACK DIXON INFLUENZA 3 [facility] B VIRUS INC INC IAADI 66763 ZACK DIXON INFFLUENZ 3 [facility] A A VIRUS INC INC CUL BACT 74642 [facility] DIXON XCPT 3 [facility] URINE INC INC BLOOD/STO OL AEROBIC ISOL BASIC 40512 COMBINED COMBINED METABOLIC 3 PHYSICIAN PHYSICIAN PANEL [place] [address] COMBINED COMBINED BLOOD/URI 3 PHYSICIAN PHYSICIAN C ACID S LA S LA CREATINE 66284 ZACK DIXON KINASE 3 [facility] TOTAL INC INC FIBRIN 16075 ZACK DIXON DGRADJ 3 [facility] PRODUCTS INC INC D-DIMER QUAL/SEMI BARB TECHNETIU A9540 ZACK Flanagan TC-99M 3 [facility] MAA DX INC INC STDY DOSE UP TO 10 MCI THER 47836 ZACK DIXON PROPH/DX 3 [facility] NJX IV INC INC PUSH SINGLE/1S T SBST/DRUG ECG 63746 ZACK DIXON ROUTINE 3 [facility] ECG INC INC W/LEAST 12 LDS TRCG ONLY W/O I&R COMPREHEN 34645 ZACK DIXON SIVE 3 [facility] METABOLIC INC INC PANEL CREATINE 25546 ZACK DIXON KINASE MB 3 [facility] FRACTION INC INC ONLY TECHNETIU A9567 ZACK Flanagan TC-99M 3 [facility] PENTETATE INC INC DX AEROSOL TO 75 MCI RADIOLOGI 41154 ZACK DIXON C 3 [facility] EXAMINATI INC INC ON CHEST SINGLE VIEW FRONTAL ECG 78429 EMEKA LIRA ROUTINE 3 EMERGENCY ECG SERVICES W/LEAST 12 LDS I&R ONLY RHYTHM 80450 ZACK DIXON ECG 1-3 3 [facility] LEADS INC INC TRACING ONLY W/O I&[place] [address] ZACK DIXON TROPONIN 3 [facility] QUANTITAT INC INC MARIBEL BLOOD 14806 ZACK DIXON COUNT 3 [facility] COMPLETE INC INC AUTO&AUTO DIFRNTL WBC RADIOLOGI 94977 ZACK DIXON C EXAM 3 [facility] CHEST 2 INC INC VIEWS FRONTAL&L ATERAL PULMONARY 05520 ZACK DIXON 3 [facility] VENTILATI INC INC ON & PERFUSION IMAGING RENAL 33777 ZACK DIXON FUNCTION 3 [facility] PANEL INC INC BLOOD 59822 ZACK DIXON COUNT 3 [facility] COMPLETE INC INC AUTO&AUTO DIFRNTL WBC COLLECTIO 35080 ZACK DIXON N VENOUS 3 [facility] BLOOD INC INC VENIPUNCT URE INJECTION J0897 [facility] DENOSUMAB INC INC 1 MG THERAPEUT 01160 ZACK DIXON IC 3 [facility] PROPHYLAC INC INC TIC/DX INJECTION SUBQ/IM APPL 39990 [facility] MODALITY [facility]/> AREAS INC INC 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 47387 ZACK DIXON IC PX 1/> 3 [facility] AREAS INC INC EACH 15 MIN EXERCISES APPLICATI 40016 ZACK DIXON ON 3 [facility] MODALITY INC INC 1/> AREAS HOT/COLD PACKS E-STIM G0283 [facility]ACK [facility]IXON 1/> AREAS [facility] OTH THAN INC INC WND CARE PART TX PLAN E-STIM G0283 [facility] 1/> AREAS [facility] OTH THAN INC INC WND CARE PART TX PLAN APPLICATI 51317 [facility] ON 3 [facility] MODALITY INC INC 1/> AREAS HOT/COLD PACKS THERAPEUT 61610 [facility] IC PX 1/> 3 [facility] AREAS INC INC EACH 15 MIN EXERCISES APPL 05695 [facility] MODALITY 3 [facility] 1/> AREAS INC INC IONTOPHOR ESIS EA 15 MIN APPL 78598 [facility] MODALITY 3 [facility] 1/> AREAS INC INC 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 77624 [facility] IC PX 1/> 3 [facility] AREAS INC INC EACH 15 MIN EXERCISES E-STIM G0283 [facility] 1/> [facility]AS [facility] OTH THAN INC INC WND CARE PART TX PLAN APPLICATI 38880 [facility] ON 3 [facility] MODALITY INC INC 1/> AREAS HOT/COLD PACKS APPLICATI 60596 [facility] ON 3 [facility] MODALITY INC INC 1/> AREAS HOT/COLD PACKS E-STIM G0283 [facility]ON 1/> [facility]AS [facility] OTH THAN INC INC WND CARE PART TX PLAN THERAPEUT 81388 [facility] IC PX 1/> 3 [facility] AREAS INC INC EACH 15 MIN EXERCISES APPL 77050 [facility] MODALITY 3 [facility] 1/> AREAS INC INC 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 47403 [facility] IC PX 1/> 3 [facility] AREAS INC INC EACH 15 MIN EXERCISES E-STIM G0283 [facility]ON 1/> AREAS [facility] OTH THAN INC INC WND CARE PART TX PLAN E-STIM G0283 [facility] 1/> AREAS [facility] OTH THAN INC INC WND CARE PART TX PLAN APPLICATI 84340 [facility] ON 3 [facility] MODALITY INC INC 1/> AREAS HOT/COLD PACKS CULTURE 18727 COMBINED COMBINED BACTERIAL 3 PHYSICIAN PHYSICIAN S LA S LA QUANTTATI VE COLONY COUNT URINE THERAPEUT 86512 [facility] IC PX 1/> 3 [facility] AREAS INC INC EACH 15 MIN EXERCISES APPL 04236 [facility] MODALITY 3 [facility] 1/> AREAS INC INC IONTOPHOR ESIS EA 15 MIN APPL 49194 [facility]IX[facility] MODALITY 3 [facility] 1/> AREAS INC INC 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 88587 [facility] IC PX 1/> 3 [facility] AREAS INC INC EACH 15 MIN EXERCISES APPLICATI 45116 [facility]ACK [facility]IXON ON 3 [facility] MODALITY INC INC 1/> AREAS HOT/COLD PACKS E-STIM G0283 [facility] 1/> AREAS 3 [facility] OTH THAN INC INC WND CARE PART TX PLAN THERAPEUT 21287 ZACK DIXON IC PX 1/> 3 [facility] AREAS INC INC EACH 15 MIN EXERCISES THERAPEUT 33752 ZACK DIXON IC PX 1/> 3 [facility] AREAS INC INC EACH 15 MIN EXERCISES APPL 19800 [facility] MODALITY 3 [facility] 1/> AREAS INC INC 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 G0283 [facility] 1/> AREAS 3 [facility] OTH THAN INC INC WND CARE PART TX PLAN APPL 69447 [facility] MODALITY 3 [facility] 1/> AREAS INC INC ULTRASOUN D EA 15 MIN E-STIM G0283 ZACK [facility]IXON 1/> AREAS [facility] OTH THAN INC INC WND CARE PART TX PLAN APPLICATI 72925 ZACK [facility]IXON ON 3 [facility] MODALITY INC INC 1/> AREAS HOT/COLD PACKS APPL 68015 [facility] MODALITY [facility] 1/> AREAS INC INC 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 43094 [facility] D[facility] IC PX 1/> 3 [facility] AREAS INC INC EACH 15 MIN EXERCISES THERAPEUT 33222 ZACK DIXON IC PX 1/> [facility] AREAS INC INC EACH 15 MIN EXERCISES APPL 71694 ZACK ZACK MODALITY 3 [facility]/> AREAS INC INC IONTOPHOR ESIS EA 15 MIN APPLICATI 29054 ZACK DIXON ON 3 [facility] MODALITY INC INC 1/> AREAS HOT/COLD PACKS E-STIM G0283 ZACK ZACK 1/> [facility]AS [facility] OTH THAN INC INC WND CARE PART TX PLAN E-STIM G0283 ZACK ZACK 1/> AREAS [facility] OTH THAN INC INC WND CARE PART TX PLAN APPLICATI 84515 ZACKSHANDA DIXON ON 3 [facility] MODALITY INC INC 1/> AREAS HOT/COLD PACKS APPL 54153 ZACK DIXON MODALITY 3 [facility]/> AREAS INC INC ULTRASOUN D EA 15 MIN APPL 30575 ZACK DIXON MODALITY 3 [facility]/> AREAS INC INC 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 55294 ZACK ZACK IC PX 1/> 3 [facility] INC INC EACH 15 MIN EXERCISES THERAPEUT 81569 ZACK ZACK IC PX 1/> 3 [facility] AREAS INC INC EACH 15 MIN EXERCISES APPL 75171 ZACK DIXON MODALITY 3 [facility] 1/> AREAS INC INC IONTOPHOR ESIS EA 15 MIN APPL 94556 ZACK DIXON MODALITY 3 [facility]/> AREAS INC INC ULTRASOUN D EA 15 MIN E-STIM G0283 ZACK DIXON 1/> AREAS [facility] OTH THAN INC INC WND CARE PART TX PLAN E-STIM G0283 ZACK DIXON 1/> AREAS 3 [facility] OTH THAN INC INC WND CARE PART TX PLAN APPL 92422 ZACK DIXON MODALITY 3 [facility]/> AREAS INC INC ULTRASOUN D EA 15 MIN CULTURE 96057 ZACK DIXON BACTERIAL 3 [facility] INC INC QUANTTATI VE COLONY COUNT URINE CULTURE 90301 ZACK DIXON BCT 3 [facility] ISOL&PRSM INC INC PTV ID ISOLATE EA URINE COLLECTIO 43164 ZACK DIXON N VENOUS 3 [facility] [place] [address] ZACK DIXON NEPHELOME 3 [facility] TRY EACH INC INC ANALYTE YANELY THERAPEUT 89484 ZACK DIXON IC PX 1/> [facility]AS INC INC EACH 15 MIN EXERCISES 25 08563 ZACK DIXON HYDROXY 3 [facility] INCLUDES INC [place] [address] ZACK DIXON PARATHORM 3 [facility] ONE INC INC PROTEIN 43251 ZACK DIXON ELECTROPH 3 [facility] ORETIC INC INC FRACTJ&QU ANTJ SERUM APPL 82421 ZACK DIXON MODALITY 3 [facility]/> AREAS INC INC IONTOPHOR ESIS EA 15 MIN RENAL 15703 ZACK DIXON FUNCTION 3 [facility] PANEL INC INC BLOOD 68742 ZACK DIXON COUNT 3 [facility] COMPLETE INC INC AUTO&AUTO DIFRNTL WBC SUSCEPTIB 51596 ZACK DIXON LTY STDY 3 [facility] ANTIMICRB INC INC IAL MICRO/AGA R DILUTJ URNLS DIP 71854 ZACK DIXON 3 [facility] STICK/TAB INC INC LET REAGENT AUTO MICROSCOP Y APPL 06785 ZACK DIXON MODALITY 3 [facility]/> AREAS INC INC 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 47330 ZACK ELLIOTTON IC PX 1/> 3 [facility] AREAS INC INC EACH 15 MIN EXERCISES APPLICATI 37754 ZACK DIXON ON 3 [facility] MODALITY INC INC 1/> AREAS HOT/COLD PACKS E-STIM G0283 ZACK DIXON 1/> AREAS 3 [facility] OTH THAN INC INC WND CARE PART TX PLAN E-STIM G0283 ZACK DIXON 1/> AREAS 3 [facility] OTH THAN INC INC WND CARE PART TX PLAN APPLICATI 96641 ZACK DIXON ON 3 [facility] MODALITY INC INC 1/> AREAS HOT/COLD PACKS APPL 15637 ZACK DIXON MODALITY 3 [facility] 1/> AREAS INC INC ULTRASOUN D EA 15 MIN THERAPEUT 11380 ZACK DIXON IC PX 1/> 3 [facility] AREAS INC INC EACH 15 MIN EXERCISES APPL 40278 ZACK DIXON MODALITY 3 [facility] 1/> AREAS INC INC IONTOPHOR ESIS EA 15 MIN APPL 29599 ZACK DIXON MODALITY 3 [facility] 1/> AREAS INC INC 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 17121 ZACK DIXON IC PX 1/> 3 [facility] AREAS INC INC EACH 15 MIN EXERCISES APPL 52889 ZACK DIXON MODALITY 3 [facility] 1/> AREAS INC INC ULTRASOUN D EA 15 MIN E-STIM G0283 ZACK DIXON 1/> AREAS 3 [facility] OTH THAN INC INC WND CARE PART TX PLAN E-STIM G0283 ZACK DIXON 1/> AREAS 3 [facility] OTH THAN INC INC WND CARE PART TX PLAN APPL 63513 ZACK DIXON MODALITY 3 [facility] 1/> AREAS INC INC ULTRASOUN D EA 15 MIN APPLICATI 69087 ZACK DIXON ON 3 [facility] MODALITY INC INC 1/> AREAS HOT/COLD PACKS THERAPEUT 50920 ZACK DIXON IC PX 1/> 3 [facility] AREAS INC INC EACH 15 MIN EXERCISES APPL 05794 ZACK DIXON MODALITY 3 [facility] 1/> AREAS INC INC IONTOPHOR ESIS EA 15 MIN APPL 53260 ZACK DIXON MODALITY 3 [facility] 1/> AREAS INC INC 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 84041 ZACK DIXON IC PX 1/> 3 [facility] AREAS INC INC EACH 15 MIN EXERCISES APPL 30717 ZACK DIXON MODALITY 3 [facility] 1/> AREAS INC INC ULTRASOUN D EA 15 MIN BASIC 39782 COMBINED COMBINED METABOLIC 3 PHYSICIAN PHYSICIAN PANEL S LA S LA CALCIUM TOTAL APPL 09776 ZACK DIXON MODALITY 3 [facility]/> AREAS INC INC ULTRASOUN D EA 15 MIN E-STIM G0283 ZACK DIXON 1/> AREAS 3 [facility] OTH THAN INC INC WND CARE PART TX PLAN THERAPEUT 08734 ZACK DIXON IC PX 1/> 3 [facility] AREAS INC INC EACH 15 MIN EXERCISES APPL 78821 ZACK DIXON MODALITY 3 [facility] 1/> AREAS INC INC IONTOPHOR ESIS EA 15 MIN APPL 38550 ZACK DIXON MODALITY 3 [facility] 1/> AREAS INC INC 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 28511 ZACK DIXON IC PX 1/> 3 [facility] AREAS INC INC EACH 15 MIN EXERCISES E-STIM G0283 ZACK DIXON 1/> AREAS 3 [facility] OTH THAN INC INC WND CARE PART TX PLAN APPL 73351 ZACK DIXON MODALITY 3 [facility] 1/> AREAS INC INC ULTRASOUN D EA 15 MIN APPL 46579 ZACK DIXON MODALITY 3 [facility] 1/> AREAS INC INC ULTRASOUN D EA 15 MIN APPLICATI 47425 ZACK DIXNO ON 3 [facility] MODALITY INC INC 1/> AREAS HOT/COLD PACKS E-STIM G0283 ZACK DIXON 1/> AREAS 3 [facility] OTH THAN INC INC WND CARE PART TX PLAN THERAPEUT 88575 ZACK DIXON IC PX 1/> 3 [facility] AREAS INC INC EACH 15 MIN EXERCISES THERAPEUT 21481 ZACK DIXON IC PX 1/> 3 [facility] AREAS INC INC EACH 15 MIN EXERCISES E-STIM G0283 ZACK DIXON 1/> AREAS 3 [facility] OTH THAN INC INC WND CARE PART TX PLAN APPL 88379 ZACK DIXON MODALITY 3 [facility] 1/> AREAS INC INC ULTRASOUN D EA 15 MIN E-STIM G0283 ZACK DIXON 1/> AREAS 3 [facility] OTH THAN INC INC WND CARE PART TX PLAN THERAPEUT 67532 ZACK DIXON IC PX 1/> 3 [facility] AREAS INC INC EACH 15 MIN EXERCISES APPL 72710 ZACK DIXON MODALITY 3 [facility] 1/> AREAS INC INC 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 69863 ZACK DIXON IC PX 1/> 3 [facility] AREAS INC INC EACH 15 MIN EXERCISES E-STIM G0283 ZACK DIXON 1/> AREAS 3 [facility] OTH THAN INC INC WND CARE PART TX PLAN APPLICATI 95441 ZACK DIXON ON 3 [facility] MODALITY INC INC 1/> AREAS HOT/COLD PACKS APPL 88015 ZACK DIXON MODALITY 3 [facility] 1/> AREAS INC INC ULTRASOUN D EA 15 MIN THERAPEUT 04753 ZACK DIXON IC PX 1/> 3 [facility] AREAS INC INC EACH 15 MIN EXERCISES APPL 99251 ZACK DIXON MODALITY 3 [facility] 1/> AREAS INC INC 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 G0283 ZACK DIXON 1/> AREAS 3 [facility] OTH THAN INC INC WND CARE PART TX PLAN E-STIM G0283 ZACK DIXON 1/> AREAS 3 [facility] OTH THAN INC INC WND CARE PART TX PLAN THERAPEUT 79432 ZACK DIXON IC PX 1/> 3 [facility] AREAS INC INC EACH 15 MIN EXERCISES APPL 91164 ZACK DIXON MODALITY 3 [facility] 1/> AREAS INC INC IONTOPHOR ESIS EA 15 MIN APPLICATI 96680 ZACK DIXON ON 3 [facility] MODALITY INC INC 1/> AREAS HOT/COLD PACKS APPL 51379 ZACK DIXON MODALITY 3 [facility] 1/> AREAS INC INC ULTRASOUN D EA 15 MIN APPL 53579 ZACK DIXON MODALITY 3 [facility] 1/> AREAS INC INC ULTRASOUN D EA 15 MIN APPLICATI 77014 ZACK DIXON ON 3 [facility] MODALITY INC INC 1/> AREAS HOT/COLD PACKS APPL 40761 ZACK DIXON MODALITY 3 [facility] 1/> AREAS INC INC 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 G0283 ZACK DIXON 1/> AREAS 3 [facility] OTH THAN INC INC WND CARE PART TX PLAN E-STIM G0283 ZACK DIXON 1/> AREAS 3 [facility] OTH THAN INC INC WND CARE PART TX PLAN APPL 73184 ZACK DIXON MODALITY 3 [facility] 1/> AREAS INC INC 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 88258 ZACK DIXON IC PX 1/> 3 [facility] AREAS INC INC EACH 15 MIN EXERCISES APPL 97712 ZACK DIXON MODALITY 3 [facility] 1/> AREAS INC INC ULTRASOUN D EA 15 MIN APPLICATI 62013 ZACK DIXON ON 3 [facility] MODALITY INC INC 1/> AREAS HOT/COLD PACKS APPLICATI 26651 ZACK DIXON ON 3 [facility] MODALITY INC INC 1/> AREAS HOT/COLD PACKS APPL 48848 ZACK DIXON MODALITY 3 [facility] 1/> AREAS INC INC ULTRASOUN D EA 15 MIN THERAPEUT 79025 ZACK DIXON IC PX 1/> 3 [facility] AREAS INC INC EACH 15 MIN EXERCISES APPL 64466 ZACK DIXON MODALITY 3 [facility] 1/> AREAS INC INC 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 G0283 ZACK DIXON 1/> AREAS 3 [facility] OTH THAN INC INC WND CARE PART TX PLAN APPLICATI 73786 ZACK DIXON ON 3 [facility] MODALITY INC INC 1/> AREAS HOT/COLD PACKS APPL 74865 ZACK ZACK MODALITY 3 [facility] 1/> AREAS INC INC 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 39631 ZACKSHANDA DIXON IC PX 1/> 3 [facility] AREAS INC INC EACH 15 MIN EXERCISES PHYSICAL 98638 ZACK DIXON THERAPY 3 [facility] EVALUATIO INC INC N APPL 68894 ZACK DIXON MODALITY 3 [facility] 1/> AREAS INC INC ULTRASOUN D EA 15 MIN RADEX HIP 40542 [facility] 3 MEDICAL MELIDA UNILATERA IMAGING L ASS COMPLETE MINIMUM 2 VIEWS BASIC 13468 COMBINED COMBINED METABOLIC 3 PHYSICIAN PHYSICIAN [place]EL [place] [address] COMBINED COMBINED BLOOD/URI 3 PHYSICIAN PHYSICIAN C ACID S LA S LA GLUC BLD 10075 ZACK DIXON GLUC MNTR 2 [facility] DEV INC INC CLEARED FDA SPEC HOME USE BLOOD 27799 ZACK DIXON COUNT 2 [facility] COMPLETE INC INC AUTO&AUTO DIFRNTL WBC BASIC 12776 ZACK DIXON METABOLIC 2 [facility] PANEL INC INC [facility] G[facility]8 [facility]ACK DIXON OBSERVATI 2 [facility] ON INC INC SERVICE PER HOUR COLLECTIO 62429 ZACK DIXON N VENOUS 2 [facility] BLOOD INC INC VENIPUNCT URE COLLECTIO 30602 ZACK DIXON N VENOUS 2 [facility] BLOOD INC INC VENIPUNCT URE CREATINE 78651 ZACK DIXON KINASE MB 2 [facility] FRACTION INC INC ONLY TECHNETIU A9567 ZACK Flanagan TC-99M 2 [facility] PENTETATE INC INC DX AEROSOL TO [facility] G0378 ZACK DIXON OBSERVATI 2 [facility] ON INC INC SERVICE PER HOUR TECHNETIU A9540 ZCAK Flanagan TC-99M 2 [facility] MAA DX INC INC STDY DOSE UP TO 10 MCI CREATINE 29354 ZACK DIXON KINASE 2 [facility] TOTAL INC INC BASIC 73890 ZACK DIXON METABOLIC 2 [facility] [place] [address] ZACK DIXON TROPONIN 2 [facility] QUANTITAT INC INC MARIBEL GLUC BLD 89255 ZACK DIXON GLUC MNTR 2 [facility] DEV INC INC CLEARED FDA SPEC HOME USE BLOOD 35821 ZACK DIXON COUNT 2 [facility] COMPLETE INC INC AUTO&AUTO DIFRNTL WBC NONINVASI 30172 ZACK DIXON VE 2 [facility] EAR/PULSE INC INC OXIMETRY SINGLE DETER ECHO 54357 [facility] R-T 2 DINA MORA 2D CARDIOLOG W/WOM-MOD Y CLINIC E COMPL SPEC&COLR D PULMONARY 08485 [place] [facility] 2 [facility] VENTILATI IMAGING ON & ASS PERFUSION IMAGING RADIOLOGI 56818 [place] [facility] C EXAM 2 [facility] CHEST 2 IMAGING VIEWS ASS FRONTAL&[place] [address] ZACK DIXON TROPONIN 2 [facility] QUANTITAT INC INC MARIBEL NATRIURET 95590 ZACK DIXON IC 2 [facility] PEPTIDE INC INC GLUC BLD 08657 ZACK DIXON GLUC MNTR 2 [facility] DEV INC INC CLEARED FDA SPEC HOME USE CULTURE 05033 ZACKSHANDA DIXON BACTERIAL 2 [facility] BLOOD INC INC AEROBIC W/ID ISOLATES URNLS DIP 00980 ZACK DIXON 2 [facility] STICK/TAB INC INC LET REAGENT AUTO MICROSCOP Y BLOOD 44991 AZCK ZACK COUNT 2 [facility] COMPLETE INC INC AUTO&AUTO DIFRNTL WBC BASIC 20352 ZACK DIXON METABOLIC 2 [facility] PANEL INC INC CALCIUM TOTAL FIBRIN 69124 ZACK DIXON DGRADJ 2 [facility] PRODUCTS INC INC D-DIMER QUAL/SEMI BARB CREATINE 59810 ZACK ZACK KINASE 2 [facility] TOTAL INC INC THERAPEUT 30793 ZACK ZACK IC 2 [facility] PROPHYLAC INC INC TIC/DX INJECTION SUBQ/IM ECG 30560 ZACK ELLIOTTON ROUTINE 2 [facility] ECG INC INC W/LEAST 12 LDS TRCG ONLY [facility] G0378 ZACK ELLIOTTON OBSERVATI 2 [facility] ON INC INC SERVICE PER HOUR CREATINE 82388 ZACK ZACK KINASE MB 2 [facility] FRACTION INC INC ONLY ECG 04348 ZACK VINAY ROUTINE 2 [facility] W/LEAST P 12 LDS I&R ONLY COLLECTIO 40647 ZACK DIXON N VENOUS 2 [facility] BLOOD INC INC VENIPUNCT URE BASIC 90418 ZACK DIXON METABOLIC 2 [facility] PANEL INC INC CALCIUM TOTAL BLOOD 85676 ZACK DIXON COUNT 2 [facility] COMPLETE INC INC AUTO&AUTO DIFRNTL WBC INJECTION J0897 ZACK ELLIOTTON 2 [facility] DENOSUMAB INC INC 1 MG THERAPEUT 35201 ZACK DIXON IC 2 [facility] PROPHYLAC INC INC TIC/DX INJECTION SUBQ/IM 25 36498 ZACK DIXON HYDROXY 2 [facility] INCLUDES INC [place] [address] ZACK DIXON PARATHORM 2 [facility] ONE INC INC COLLECTIO 74375 ZACK DIXON N VENOUS 2 [facility] BLOOD INC INC VENIPUNCT URE CREATININ 81471 ZACK DIXON E OTHER 2 [facility] SOURCE INC INC DXA BONE 78723 [place] [facility] DENSITY 2 [facility] STUDY 1/> IMAGING SITES ASS AXIAL SKEL RENAL 09440 ZACK DIXON FUNCTION 2 [facility] PANEL INC INC PROTEIN 31537 ZACK DIXON XCPT 2 [facility] REFRACTOM INC INC ETRY SERUM PLASMA/WH L BLD BLOOD 96237 ZACK DIXON COUNT 2 [facility] COMPLETE INC INC AUTO&AUTO DIFRNTL WBC URNLS DIP 10443 ZACK DIXON 2 [facility] STICK/TAB INC INC LET REAGENT AUTO MICROSCOP Y CONTINUOU E0601 REID MATHEWS S 2 HOME [...] EQUIPME EQUIPME ARWAY PRESSURE DEVICE CV STRS 81003 ZACK ZAPATA TST 2 [facility] XERS&/OR HOSPITAL RX CONT P ECG I&R ONLY MYOCARDIA 95184 [facility] SPECT 2 [facility] CARDIOLOG STUDIES Y CLINIC CV STRS 79317 [facility] TST 2 PHYSICIAN XERS&/OR S GROUP RX CONT ECG W/O I&R POLYSOM 80722 ZACK DIXON 6/>YRS 2 [facility] SLEEP INC INC W/CPAP 4/> ADDL HARSHIL ATTND SUSCEPTIB 43389 ZACK DIXON LTY STDY 2 [facility] ANTIMICRB INC INC IAL MICRO/AGA R DILUTJ CULTURE 35405 ZACK DIXON BACTERIAL 2 [facility] INC INC QUANTTATI VE COLONY COUNT URINE CULTURE 16347 ZACK DIXON BCT 2 [facility] ISOL&PRSM INC INC PTV ID ISOLATE EA URINE PROTEIN 55649 ZACK DIXON XCPT 2 [facility] REFRACTOM INC INC ETRY SERUM PLASMA/WH L BLD BLOOD 16212 ZACK DIXON COUNT 2 [facility] COMPLETE INC INC AUTO&AUTO DIFRNTL WBC URNLS DIP 41270 ZACK DIXON 2 [facility] STICK/TAB INC INC LET REAGENT AUTO MICROSCOP Y RENAL 47443 ZACK DIXON FUNCTION 2 [facility] PANEL INC INC 25 80495 ZACK DIXON HYDROXY 2 [facility] INCLUDES INC [place] [address] ZACK DIXON PARATHORM 2 [facility] ONE INC INC COLLECTIO 00018 ZACK DIXON N VENOUS 2 [facility] BLOOD INC INC VENIPUNCT URE CREATININ 66055 ZACK DIXON E OTHER 2 [facility] SOURCE INC INC BLD GLU A4253 REID MATHEWS TEST/REAG 2 HOME HOME T [facility] HOME BLD EQUIPME EQUIPME GLU MON-50 LANCETS A4259 REID GLASSRELL PER BOX 2 HOME HOME OF 100 MEDICAL MEDICAL EQUIPME EQUIPME POLYSOM 39089 ESTIVEN JEAN-BAPTISTE 6/>YRS 2 [facility] SLEEP 4/> ADDL HARSHIL ATTND POLYSOM 12295 ZACK DIXON 6/>YRS 2 [facility] SLEEP 4/> INC INC ADDL HARSHIL ATTND CREATINE 67881 ZACK DIXON KINASE MB 2 [facility] FRACTION INC INC ONLY RADEX 66891 [place] [facility] SPINE 2 [facility] THORACIC IMAGING 3 VIEWS ASS RADEX 24655 [place] [facility] SPINE 2 [facility] LUMBOSACR IMAGING AL ASS MINIMUM 4 VIEWS ECG 44288 EMEKA ALFORD ROUTINE 2 EMERGENCY III NANCY ECG SERVICES W/LEAST 12 LDS I&[place] [address] ZACK DIXON TROPONIN 2 [facility] QUANTITAT INC INC MARIBEL BLOOD 08182 ZACK DIXON COUNT 2 [facility] COMPLETE INC INC AUTO&AUTO DIFRNTL WBC URNLS DIP 17762 ZACK DIXON 2 [facility] STICK/TAB INC INC LET REAGENT AUTO MICROSCOP Y BASIC 69520 ZACK DIXON METABOLIC 2 [facility] PANEL INC INC CALCIUM TOTAL RADIOLOGI 24946 ZACK DIXON C 2 [facility] EXAMINATI INC [place] [address] ZACK DIXON HEAD/BRAI 2 [facility] N W/O INC INC CONTRAST MATERIAL CREATINE 41173 ZACK DIXON KINASE 2 [facility] TOTAL INC INC 3D 13846 ZACK DIXON RENDERING 2 [facility] W/INTERP INC INC & POSTPROCE SS SUPERVISI ON ECG 06269 ZACK DIXON ROUTINE 2 [facility] ECG INC INC W/LEAST 12 LDS TRCG ONLY W/O I&R 25 81045 ZACK DIXON HYDROXY 2 [facility] INCLUDES INC [place] [address] ZACK DIXON FERRITIN 2 [place] [address] ZACK DIXON PARATHORM 2 [facility] [place] [address] ZACK DIXON PHOSPHORU 2 [facility] S INC INC INORGANIC CYANOCOBA 21759 ZACK DIXON SOHA 2 [facility] VITAMIN INC INC B-12 RADEX 37442 ZACK DIXON SPINE 2 [facility] CERVICAL INC INC 6 OR MORE VIEWS BASIC 71567 ZACK DIXON METABOLIC 2 [facility] [place] [address] ZACK DIXON BLOOD/URI 2 [facility] C ACID INC INC IRON 13124 ZACK DIXON BINDING 2 [facility] CAPACITY INC INC IRRIGAJ 11335 ZACK DIXON IMPLNTD 2 [facility] VENOUS INC INC ACCESS DRUG DELIVERY SYST RADIOLOGI 72214 [place] [facility] C EXAM 2 [facility] SKULL IMAGING COMPLETE ASS MINIMUM [address] [place] [address] ZACK DIXON FOLIC 2 [facility] [place] [address] ZACK DIXON IRON 2 [facility] INC INC GLUC BLD 53614 ZACK DIXON GLUC MNTR 2 [facility] DEV INC INC CLEARED FDA SPEC HOME USE BLOOD 64855 ZACK DIXON COUNT 2 [facility] COMPLETE INC INC AUTO&AUTO DIFRNTL WBC GLUC BLD 71727 ZACK DIXON GLUC MNTR 2 [facility] DEV INC INC CLEARED FDA SPEC HOME USE NONINVASI 47423 ZACK DIXON VE 2 [facility] EAR/PULSE INC INC OXIMETRY SINGLE DETER BASIC 37441 ZACK DIXON METABOLIC 2 [facility] PANEL INC INC [facility] G0378 ZACK DIXON OBSERVATI 2 [facility] ON INC INC SERVICE PER HOUR TECHNETIU A9567 ZACK DIXON M TC-99M 2 [facility] PENTETATE INC INC DX AEROSOL TO [facility] G0378 ZACK DIXON OBSERVATI 2 [facility] ON INC INC SERVICE PER HOUR CREATINE 56389 ZACK DIXON KINASE MB 2 [facility] FRACTION INC INC ONLY CREATINE 36727 ZACK DIXON KINASE 2 [facility] TOTAL INC INC BASIC 98801 ZACK DIXON METABOLIC 2 [facility] [place] [address] ZACK DIXON TROPONIN 2 [facility] QUANTITAT INC INC MARIBEL ECG 28076 ZACK MCLEAN ROUTINE 2 [facility] W/LEAST P 12 LDS I&R ONLY INITIAL 51259 [facility] 2 PHYSICIAN CARE/DAY S GROUP 50 MINUTES ECHO 56954 [facility] R-T 2 DINA MORA 2D CARDIOLOG W/WOM-MOD Y CLINIC E COMPL SPEC&COLR D RADIOLOGI 51570 LIZZ Lopez EXAM 2 [facility] CHEST 2 IMAGING VIEWS ASS FRONTAL&L ATERAL PULMONARY 50468 LIZZ WADE 2 [facility] VENTILATI IMAGING ON & ASS PERFUSION IMAGING GLUC BLD 59889 ZACK DIXON GLUC MNTR 2 [facility] DEV INC INC CLEARED FDA SPEC HOME USE BLOOD 20621 ZACK DIXON COUNT 2 [facility] COMPLETE INC INC AUTO&AUTO DIFRNTL WBC NONINVASI 87910 ZACK DIXON VE 2 [facility] EAR/PULSE INC INC OXIMETRY SINGLE DETER ECG 59848 ZACK DIXON ROUTINE 2 [facility] ECG INC INC W/LEAST 12 LDS TRCG ONLY W/O I&R TECHNETIU A9540 ZACK Flanagan TC-99M 2 [facility] MAA DX INC INC STDY DOSE UP TO 10 MCI THERAPEUT 70867 ZACK DIXON IC 2 [facility] PROPHYLAC INC INC TIC/DX INJECTION SUBQ/IM ECG 92858 ZACK DIXON ROUTINE 2 [facility] ECG INC INC W/LEAST 12 LDS TRCG ONLY W/O I&R BLOOD 32935 ZACK DIXON COUNT 2 [facility] COMPLETE INC INC AUTO&AUTO DIFRNTL WBC CULTURE 38128 ZACK DIXON BACTERIAL 2 [facility] BLOOD INC INC AEROBIC W/ID ISOLATES SUSCEPTIB 64317 ZACK DIXON LTY STDY 2 [facility] ANTIMICRB INC INC IAL MICRO/AGA R DILUTJ URNLS DIP 05341 ZACK DIXON 2 [facility] STICK/TAB INC INC [place] [address] ZACK DIXON TROPONIN 2 [facility] QUANTITAT INC INC MARIBEL NATRIURET 81225 ZACK DIXON IC 2 [facility] PEPTIDE INC INC ECG 57306 EMEKA WILCOX ROUTINE 2 [facility]ERG[facility] ECG SERVICES W/LEAST 12 LDS I&R ONLY CULTURE 98148 ZACK DIXON BACTERIAL 2 [facility] INC INC QUANTTATI VE COLONY COUNT URINE CULTURE 05670 ZACK DIXON BCT 2 [facility] ISOL&PRSM INC INC PTV ID ISOLATE EA URINE CREATINE 95500 ZACK DIXON KINASE 2 [facility] TOTAL INC INC FIBRIN 04417 ZACK DIXON DGRADJ 2 [facility] PRODUCTS INC INC D-DIMER QUAL/SEMI BARB CREATINE 73519 ZACK DIXON KINASE MB 2 [facility] FRACTION INC INC ONLY COMPREHEN 36395 ZACK DIXON SIVE 2 [facility] METABOLIC INC INC PANEL RADIOLOGI 71888 [place] C 2 MEDICAL MELIDA EXAMINATI IMAGING ON CHEST ASS SINGLE VIEW FRONTAL HOME [id number] REID REID BLOOD 2 HOME HOME GLUCOSE MEDICAL MEDICAL MONITOR EQUIPME EQUIPME WALKER [id number] REID REID FOLDING 2 HOME HOME ADJUSTABL MEDICAL MEDICAL E OR EQUIPME EQUIPME FIXED HEIGHT BLD GLU [id number] REID REID TEST/REAG 2 HOME HOME T STRIPS MEDICAL MEDICAL HOME BLD EQUIPME EQUIPME GLU MON-50 LANCETS [id number] REID REID PER BOX 2 HOME HOME OF 100 MEDICAL MEDICAL EQUIPME EQUIPME RADIOLOGI 81220 [place] C 2 MEDICAL MELIDA EXAMINATI IMAGING ON CHEST ASS SINGLE VIEW FRONTAL VENOUS 3893 ZACK DIXON CATHETERI 2 [facility] ZATION INC INC NOT ELSEWHERE CLASSIFIE D RADIOLOGI 42331 [place] C EXAM 2 MEDICAL MELIDA CHEST 2 IMAGING VIEWS ASS FRONTAL&L ATERAL COMPREHEN 76982 COMBINED COMBINED SIVE 2 PHYSICIAN PHYSICIAN METABOLIC S LA S LA PANEL COLLECTIO 85660 FAMILY STRAWZELL N VENOUS 2 CARE CRI BLOOD ASSOCIATE VENIPUNCT S, PSC URE RADIOLOGI 83786 [place] C 2 MEDICAL MELIDA EXAMINATI IMAGING ON KNEE 3 ASS VIEWS CYANOCOBA 76825 COMBINED COMBINED SOHA 2 PHYSICIAN PHYSICIAN VITAMIN S LA S LA B-12 SEDIMENTA 06231 COMBINED COMBINED TION RATE 2 PHYSICIAN PHYSIC[place] [address] [place] RETROPERI 2 MEDICAL MELIDA TONEAL IMAGING REAL TIME ASS W/IMAGE COMPLETE RADIOLOGI 21436 [place] C EXAM 2 MEDICAL MELIDA CHEST 2 IMAGING VIEWS ASS FRONTAL&L ATERAL RHEUMATOI 32859 COMBINED COMBINED D FACTOR 2 PHYSICIAN PHYSIC[place] [address] COMBINED COMBINED BLOOD/URI 2 PHYSICIAN PHYSICIAN C ACID S LA S LA HANDLG&/O 98581 FAMILY STRAWZELL R CONVEY 2 CARE CRI OF SPEC ASSOCIATE FOR TR S, PSC OFFICE TO LAB ANTINUCLE 70342 LAB ZOEY LAB ZOEY AR 2 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 83151 FAMILY STRAWZELL COUNT 2 CARE CRI COMPLETE ASSOCIATE AUTO&AUTO S, PSC DIFRNTL WBC LIPID 45353 FAMILY STRAWZELL PANEL 2 CARE CRI ASSOCIATE S, PSC HEMOGLOBI 23296 FAMILY STRAWZELL N 2 CARE CRI GLYCOSYLA ASSOCIATE ALEX A1C S, PSC HANDLG&/O 00129 FAMILY STRAWZELL R CONVEY 2 CARE CRI OF SPEC ASSOCIATE FOR TR S, [place] [address] COMBINED COMBINED THYROID 2 PHYSICIAN PHYSICIAN STIMULATI S LA S LA NG HORMONE TSH COLLECTIO 10664 FAMILY STRAWZELL N VENOUS 2 CARE CRI BLOOD ASSOCIATE VENIPUNCT S, PSC URE COMPREHEN 63848 COMBINED COMBINED SIVE 2 PHYSICIAN PHYSICIAN METABOLIC S LA S LA PANEL 25 60641 COMBINED COMBINED HYDROXY 2 PHYSICIAN PHYSICIAN INCLUDES S LA S LA FRACTIONS IF PERFORMED DUP-SCAN 12636 ZACK DIXON XTR VEINS 2 [facility] INC INC UNILATERA L/LIMITED STUDY RADIOLOGI 77063 [place] SHERI C EXAM 2 MEDICAL MELIDA CHEST 2 IMAGING VIEWS ASS FRONTAL&L ATERAL RENAL 98324 ZACK DIXON FUNCTION 2 [facility] PANEL INC INC HEPATIC 27129 ZACK DIXON FUNCTION 2 [facility] PANEL INC INC BLOOD 40476 ZACK DIXON COUNT 2 [facility] COMPLETE INC INC AUTO&AUTO DIFRNTL WBC URNLS DIP 64287 ZACK DIXON 2 [facility] STICK/TAB INC INC LET REAGENT AUTO MICROSCOP Y COLLECTIO 39875 ZACK DIXON N VENOUS 2 [facility] BLOOD INC INC VENIPUNCT URE DEBRIDEME 23874 PAWSAT PAWSAT NT NAIL 2 MAR MAR ANY METHOD 1-5 THERAPEUT 42450 ZACK DIXON IC 1 [facility] PROPHYLAC INC INC TIC/DX INJECTION SUBQ/IM COLLECTIO 24348 ZACK DIXON N VENOUS 1 [facility] BLOOD INC INC VENIPUNCT URE BASIC 73812 ZACK DIXON METABOLIC 1 [facility] PANEL INC INC CALCIUM TOTAL BASIC 41978 ZACK DIXON METABOLIC 1 [facility] PANEL INC INC CALCIUM TOTAL COLLECTIO 26863 ZACK DIXON N VENOUS 1 [facility] BLOOD INC INC VENIPUNCT URE THERAPEUT 48561 ZACK DIXON IC 1 [facility] PROPHYLAC INC INC TIC/DX INJECTION SUBQ/IM 25 15042 ZACK DIXON HYDROXY 1 [facility] INCLUDES INC [place] [address] ZACK DIXON PARATHORM 1 [facility] ONE INC INC PROTEIN 94738 ZACK DIXON ELECTROPH 1 [facility] ORETIC INC INC FRACTJ&QU ANTJ SERUM COLLECTIO 41506 ZACK DIXON N VENOUS 1 [facility] BLOOD INC INC VENIPUNCT URE CREATININ 01051 ZACK DIXON E OTHER 1 [facility] SOURCE INC INC RENAL 60730 ZACK DIXON FUNCTION 1 [facility] PANEL INC INC PROTEIN 22567 ZACK DIXON XCPT 1 [facility] REFRACTOM INC INC ETRY SERUM PLASMA/WH L BLD BLOOD 24093 ZACK ZACK COUNT 1 [facility] COMPLETE INC INC AUTO&AUTO DIFRNTL WBC URNLS DIP 24346 ZACK DIXON 1 [facility] STICK/TAB INC INC LET REAGENT AUTO MICROSCOP Y BASIC 89212 ZACK DIXON METABOLIC 1 [facility] PANEL INC INC CALCIUM TOTAL COLLECTIO 57721 ZACK DIXON N VENOUS 1 [facility] BLOOD INC INC VENIPUNCT URE ARTHROCEN 01840 [place] S[facility] TESIS 1 [facility]&/IN CLINIC J MAJOR PSC JT/BURSA W/O US RADIOLOGI 55004 ZACK ZACK C EXAM 1 [facility] BOTH INC INC KNEES STANDING ANTEROPOS T INJECTION J1030 [place] SON [facility] DNISOLONE PSC [place] [address] [place] [address] ZACK DIXON RETROPERI 1 [facility] TONEAL INC INC REAL TIME W/IMAGE COMPLETE DXA BONE 60228 ZACK DIXON DENSITY 1 [facility] STUDY 1/> INC INC SITES AXIAL SKEL OPHTH 91866 ARYAN PETERS [facility] INC 1 VISION XM&EVAL COMPRHNSV ESTAB PT 1/> NON-INVAS 11240 [place] SHERI MARIBEL 1 MEDICAL MELIDA PHYSIOLOG IMAGING IC STUDY ASS EXTREMITY 3 LEVLS BASIC 16867 COMBINED COMBINED METABOLIC 1 PHYSICIAN PHYSICIAN PANEL S LA S LA CALCIUM TOTAL 25 63350 COMBINED COMBINED HYDROXY 1 PHYSICIAN PHYSICIAN INCLUDES S [place] [address] COMBINED COMBINED PARATHORM 1 PHYSICIAN [place] [address] COMBINED COMBINED PHOSPHORU 1 PHYSICIAN PHYSICIAN S S LA S LA INORGANIC BLD GLU A4253 REID MATHEWS TEST/REAG 1 HOME MED HOME MED T STRIPS EQUIP. L EQUIP. L HOME BLD GLU MON-50 LANCETS A4259 REID MATHEWS PER BOX 1 HOME MED HOME MED OF 100 EQUIP. L EQUIP. L CREATININ 08664 ZACK DIXON E BLOOD 1 [place] [address] [place] SHERI ABDOMEN 1 MEDICAL MELIDA W/O IMAGING CONTRAST ASS MATERIAL COLLECTIO 47554 ZACK DIXON N VENOUS 1 [facility] [place] [address] ZACK DIXON UREA 1 [facility] NITROGEN INC INC QUANTITAT MARIBEL 3D 42677 [place] SHERI RENDERING 1 MEDICAL MELIDA IMAGING W/INTERP& ASS POSTPROC DIFF WORK STATION HEPATBL 25300 [facility] D[facility] MELIDA IMG IMAGING GLBLDR ASS TECHNETIU A9537 ZACK Flanagan TC-99M 1 [facility] MEBROFENI INC INC N DX UP TO 15 MCI 91025 [facility]AL 1 MEDICAL MELIDA REAL IMAGING TIME ASS W/IMAGE LIMITED COMPREHEN 17447 COMBINED COMBINED SIVE 1 PHYSICIAN PHYSICIAN METABOLIC S LA S LA PANEL COLLECTIO 97793 COMBINED COMBINED N VENOUS 1 PHYSICIAN PHYSICIAN BLOOD S LA S LA VENIPUNCT URE COLLECTIO 39667 FAMILY MULBERRY N VENOUS 1 CARE NILO BLOOD ASSOCIATE VENIPUNCT S URE COMPREHEN 35522 COMBINED COMBINED SIVE 1 PHYSICIAN PHYSIC[place] [address] COMBINED COMBINED AMYLASE 1 [place] [address] COMBINED COMBINED THYROID 1 PHYSICIAN PHYSICIAN STIMULATI S LA S LA NG HORMONE TSH BLOOD 64959 FAMILY MULBERRY COUNT 1 CARE NILO COMPLETE ASSOCIATE AUTO&AUTO S DIFRNTL WBC HEMOGLOBI 52612 FAMILY MULBERRY N 1 CARE NILO GLYCOSY[place] [address] LAB ZOEY LAB ZOEY LIPASE 1 [employer] RADIOLOGI 77463 [place] MICH C EXAM 1 MEDICAL CARLOS CHEST 2 IMAGING VIEWS ASS FRONTAL&L ATERAL BASIC 50908 COMBINED COMBINED METABOLIC 1 PHYSICIAN PHYSICIAN PANEL S LA S LA CALCIUM TOTAL COLLECTIO 86068 FAMILY BRENDAN J N VENOUS 1 CARE [place] [address] ZACK DIXON STREPTOCO 0 [facility] CCUS INC INC GROUP A IAADI 92389 ZACK DIXON INFLUENZA 0 [facility] B VIRUS INC INC IAADI 11900 ZACK DIXON INFFLUENZ 0 [facility] A A VIRUS INC INC URNLS DIP 34174 ZACK DIXON 0 [facility] STICK/TAB INC INC LET REAGENT AUTO MICROSCOP Y RADIOLOGI 10185 ZACK DIXON C EXAM 0 [facility] CHEST 2 INC INC VIEWS FRONTAL&L ATERAL PRESSURIZ 72861 ZACK DIXON ED/NONPRE 0 [facility] SSURIZED INC INC INHALATIO N TREATMENT COMPREHEN 91002 COMBINED COMBINED SIVE 0 PHYSICIAN PHYSICIAN [place] [address] COMBINED COMBINED THYROID 0 PHYSICIAN PHYSICIAN STIMULATI S LA S LA NG HORMONE TSH COLLECTIO 99299 FAMILY FAMILY N VENOUS 0 CARE CARE BLOOD ASSOCIATE ASSOCIATE VENIPUNCT S S URE OPHTH 89312 PETERSYANELY PETERS LANNY MEDICAL 0 XM&EVAL COMPRHNSV ESTAB PT 1/> FUNDUS 25171 PETERSYANELY CA PETERS LANNY PHOTOGRAP 0 HY W/INTERPR ETATION & REPORT FOR DIAB A5513 WELLNESS WELLNESS ONLY MX 0 LIFE LIFE DNSITY SYSTEMS [employer] CSTM MOLD CSTM EA DIAB ONLY A5500 WELLNESS WELLNESS FIT CSTM 0 LIFE LIFE PREP&SPL SYSTEMS SYSTEMS SHOE [employer] LLC DNSITY INSRT RADIOLOGI 59119 [place] SH[place]I C 0 MEDICAL MELIDA EXAMINATI IMAGING ON ANKLE ASS 2 VIEWS WALKING L4360 [employer] BOOT 0 TECHNOLOG TECHNOLOG PNEUMATC IES INC IES INC &/ VACUUM PREFAB CUSTM FIT RADIOLOGI 54600 [place] SH[place]I C 0 MEDICAL MELIDA EXAMINATI IMAGING ON ANKLE ASS 2 VIEWS RADEX 61045 [place] SHERI FOOT 0 MEDICAL MELIDA COMPLETE IMAGING MINIMUM 3 ASS VIEWS RADIOLOGI 87475 ZACK DIXON C 0 [facility] EXAMINATI INC INC ON [place] [address] [facility] 0 PHYSICIAN JAM CALCANEAL S GROUP FRACTURE W/O MANIPULAT ION RADIOLOGI 60415 [place] SH[place]I C 0 MEDICAL MELIDA EXAMINATI IMAGING ON TIBIA ASS & FIBULA 2 VIEWS RADEX 11020 [place] CALCANE[place] 0 MEDICAL MELIDA MINIMUM IMAGING 2 VIEWS ASS RADIOLOGI 55323 LIZZ WADE C 0 MEDICAL MELIDA EXAMINATI IMAGING ON PELVIS ASS 1/2 VIEWS RADEX 95691 LIZZ WADE FOOT 0 MEDICAL MELIDA COMPLETE IMAGING MINIMUM 3 [place] [address] EMEKA WILCOX 0 EMERGENCY CHID[facility] CALCANEAL SERVICES FRACTURE W/O MANIPULAT ION AMBULANCE A0429 [facility] SERVICE 0 AMBULANCE AMBULANCE BLS SERVICE SERVICE EMERGENCY TRANSPORT GROUND A0425 [facility] MILEAGE 0 AMBULANCE AMBULANCE PER SERVICE SERVICE STATUTE MILE HEMOGLOBI 20885 FAMILY MULBERRY N 0 CARE NILO GLYCOSYLA ASSOCIATE ALEX A1C S BLOOD 95923 FAMILY MULBERRY COUNT 0 CARE NILO COMPLETE ASSOCIATE AUTO&AUTO S DIFRNTL WBC PPSV23 58844 FAMILY FAMILY VACCINE 2 0 CARE CARE YRS OR ASSOCIATE ASSOCIATE OLDER FOR S S SUBQ/IM USE ADMINISTR G0009 FAMILY MULBERRY ATION OF 0 CARE NILO PNEUMOCOC ASSOCIATE JORDYN S VACCINE COLLECTIO 63879 FAMILY MULBERRY N VENOUS 0 CARE NILO BLOOD ASSOCIATE VENIPUNCT S URE 25 50967 LAB ZOEY LAB ZOEY HYDROXY 0 [employer] INCLUDES 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 IF PERFORMED GLUCOSE 93006 FAMILY MULBERRY POST 0 CARE NILO [place] [address] COMBINED COMBINED FERRITIN 0 PHYSICIAN PHYSICIAN S LAB S LAB CYANOCOBA 68866 COMBINED COMBINED SOHA 0 PHYSICIAN PHYSICIAN VITAMIN S LAB S LAB B-12 [place] [address] COMBINED COMBINED IRON 0 PHYSICIAN [place] [address] COMBINED COMBINED FOLIC 0 PHYSICIAN PHYSICIAN ACID S LAB S LAB SERUM COMPREHEN 62792 COMBINED COMBINED SIVE 0 PHYSICIAN PHYSICIAN METABOLIC S LAB S LAB PANEL LIPID 76239 COMBINED COMBINED PANEL 0 PHYSICIAN PHYSICIAN S LAB S LAB HEMOGLOBI 13075 FAMILY MULBERRY, N 0 CARE CLEO T GLYCOSYLA ASSOCIATE ALEX A1C S BLOOD 03284 FAMILY MULBERRY, COUNT 0 CARE CLEO T COMPLETE ASSOCIATE AUTO&AUTO S DIFRNTL WBC COLLECTIO 22874 FAMILY ELIAS, N VENOUS 0 CARE CLEO T BLOOD ASSOCIATE VENIPUNCT S URE COLLECTIO 21421 FAMILY ELIAS, N VENOUS 0 CARE CLEO T BLOOD ASSOCIATE VENIPUNCT S URE BASIC 78785 COMBINED COMBINED METABOLIC 0 PHYSICIAN PHYSICIAN PANEL S LAB S LAB CALCIUM TOTAL BLOOD 84410 FAMILY ELIAS, COUNT 0 CARE CLEO T COMPLETE ASSOCIATE AUTO&AUTO S DIFRNTL WBC BLD GLU A4253 REID MATHEWS TEST/REAG 0 HOME MED HOME MED T STRIPS EQUIP. EQUIP. HOME [facility] GLU MON-50 [facility] 96642 FAMILY ELIAS, DISCHARGE 0 CARE CLEO T DAY ASSOCIATE MANAGEMEN S T > 30 MIN LANCETS A4259 REID MATHEWS PER BOX 0 HOME MED HOME MED OF 100 EQUIP. EQUIP. LLC LLC RADIOLOGI 93477 [facility] EXAM 0 MEDICAL XAVI P CHEST 2 IMAGING VIEWS ASSOCIATE FRONTAL&L S ATERAL SBSQ 08952 [facility] 0 CARE CLEO T CARE/DAY ASSOCIATE 25 S MINUTES ECG 33666 ZACK BARRETO, ROUTINE 0 [facility] W/LEAST PROF SERV 12 LDS I&R ONLY RADIOLOGI 40843 [facility] [place] EXAM 0 MEDICAL RAYMUNDO CHEST 2 IMAGING VIEWS ASSOCIATE FRONTAL&L S ATERAL INITIAL 85942 [facility] 0 CARE CLEO T CARE/DAY ASSOCIATE 50 S MINUTES ECHO 02312 [facility] R-T 0 PHYSICIAN MINNA Gardiner S GROUP W/WOM-MOD E COMPL SPEC&COLR D INTRO 58984 EMEKA WILCOX, NEEDLE/IN 0 EMERGENCY [facility] TRACAT SERVICES EXTREMITY [place] [address] [facility] WADE, ASHLEY VNTJ 0 MEDICAL RAYMUNDO IMG IMAGING AERSL ASSOCIATE 1/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 S PRJCJ AMB A0427 [facility] SERVICE 0 AMBULANCE AMBULANCE ALS SERVICE SERVICE EMERGENCY TRANSPORT LEVEL 1 GROUND A0425 [facility] 0 AMBULANCE AMBULANCE PER SERVICE SERVICE STATUTE MILE IAADIADOO 25043 FAMILY MULBERRY, 0 CARE CLEO T STREPTOCO ASSOCIATE CCUS S GROUP A ORTHOPANT 00147 LIZZ BRIANUTCHER, OGRAM 0 MEDICAL RAYMUDNO IMAGING ASSOCIATE S RENAL 66887 ZACK DIXON FUNCTION 0 [facility] PANEL INC INC COLLECTIO 02782 ZACK DIXON N VENOUS 0 [facility] [...] LLC LLC HOME BLD GLU MON-50 COLLECTIO 10831 ZACK DIXON N VENOUS 9 [facility] BLOOD INC INC VENIPUNCT URE RENAL 00879 ZACK DIXON FUNCTION 9 [facility] H[facility] MEM [...] 9 CARE CLUB CARE CL[facility] OF [address] [facility] [place] [address] ZACK DIXON RETROPERI 9 [facility] TONEAL INC INC REAL TIME W/IMAGE COMPLETE URNLS DIP 15490 ZACK DIXON 9 [facility] STICK/TAB INC INC LET REAGENT AUTO MICROSCOP Y SUSCEPTIB 23516 ZACK DIXON LTY STDY 9 [facility] ANTIMICRB INC INC IAL MICRO/AGA R DILUTJ RENAL 47890 ZACK DIXON FUNCTION 9 [facility] PANEL INC INC COMPLEMEN 07242 ZACK DIXON T 9 [facility] FUNCTIONA INC INC L ACTIVITY EACH COMPONENT COLLECTIO 89862 ZACK DIXON N VENOUS 9 [facility] BLOOD INC INC VENIPUNCT URE CULTURE 44393 ZACK DIXON BCT 9 [facility] ISOL&PRSM INC INC PTV ID ISOLATE EA URINE CULTURE 10308 ZACK DIXON BACTERIAL 9 [facility] INC INC QUANTTATI VE COLONY COUNT URINE ANTINUCLE 88564 ZACK DIXON AR 9 [facility] [place] [address] ZACK DIXON BLOOD/URI 9 [facility] C ACID INC INC ANTISTREP 23260 ZACK DIXON TOLYSIN O 9 [facility] SCREEN INC INC BASIC 68787 ZACK DIXON METABOLIC 9 [facility] PANEL INC INC CALCIUM TOTAL COLLECTIO 23302 ZACK DIXON N VENOUS 9 [facility] BLOOD INC INC VENIPUNCT URE COLLECTIO 09086 ZACK DIXON N VENOUS 9 [facility] BLOOD INC INC VENIPUNCT URE COMPREHEN 65864 ZACK DIXON SIVE 9 [facility] [address] ZACK DIXON THYROID 9 [facility] STIMULATI INC INC NG HORMONE TSH BLOOD 09893 ZACK DIXON COUNT 9 [facility] COMPLETE INC INC AUTO&AUTO DIFRNTL WBC LANCETS A4259 DIABETES DIABETES PER BOX 9 [facility] 100 [facility] NORMAL A4256 DIABETES DIABETES LOW AND 9 C[facility] CL[facility] CARE [facility]UB HIGH [facility] CALIBRATO R SOLUTION/ CHIPS BLD GLU A4253 DIABETES DIABETES TEST/REAG 9 CARE CLUB CARE CLUB T STRIPS [facility] LLC HOME BLD GLU MON-50 SPRING-PO A4258 DIABETES DIABETES WERED 9 CARE CLUB CARE CLUB DEVICE [facility] FOR LANCET EACH REPL KIM A4235 DIABETES DIABETES LITHIUM 9 CARE CLUB CARE CLUB MED NECES [facility] [place] BG MON OWN PT EA OPHTH 21642 LORRAINE PETERS, MEDICAL 9 GEE A GEE A XM&EVAL COMPRHNSV ESTAB PT 1/> CREATININ 16036 FAMILY MULBERRY, E OTHER 9 CARE CLEO T SOURCE ASSOCIATE S COLLECTIO 38186 FAMILY MULBERRY, N VENOUS 9 CARE CLEO T BLOOD ASSOCIATE VENIPUNCT S URE HEMOGLOBI 48449 COMBINED COMBINED N 9 PHYSICIAN PHYSICIAN GLYCOSYLA S LAB S LAB ALEX A1C ALBUMIN 71893 FAMILY ELIAS, URINE 9 CARE CLEO T MICROALBU ASSOCIATE [...] LLC LLC HOME BLD GLU MON-50 THERAPEUT 77960 PROFESSIO CROSSFIEL ACTVITY 8 NAL REHAB D, DIRECT PT ASSOC DANNITA CONTACT PSC EACH 15 MIN MANUAL 47923 PROFESSIO CROSSFIEL THERAPY 8 NAL REHAB D, TQS 1/> ASSOC DANNITA REGIONS PSC EACH 15 MINUTES THERAPEUT 39564 PROFESSIO CROSSFIEL IC PX 1/> 8 NAL REHAB D, AREAS ASSOC DANNITA EACH 15 PSC MIN EXERCISES CANE E0105 REID MATHEWS QUAD/3-MI 8 HOME MED HOME MED GABINO ALL EQUIP. EQUIP. [employer] [facility] LLC ADJUSTBL/ FIX W/TIPS MANUAL 41917 PROFESSIO CROSSFIEL THERAPY 8 NAL REHAB D, TQS 1/> ASSOC DANNITA REGIONS PSC EACH 15 MINUTES PHYSICAL 98827 PROFESSIO CROSSFIEL THERAPY 8 NAL REHAB D, EVALUATIO ASSOC DANNITA N PSC THERAPEUT 35038 PROFESSIO CROSSFIEL IC PX 1/> 8 NAL REHAB D, AREAS ASSOC DANNITA EACH 15 PSC MIN EXERCISES RADEX HIP 07006 ZACK DIXON 8 [facility] UNILATERA INC INC L COMPLETE MINIMUM 2 VIEWS RADEX 25432 [place] MICH, SPINE 8 MEDICAL XAVI Mcdonald LUMBOSACR IMAGING AL ASSOCIATE MINIMUM 4 S VIEWS Encounters Encounter Start End Date Code Location Performer Type Date EMERGENCY 26597 RUDY JOINER DEPT 7 7 PHYSICIAN VISIT S, [facility] HIGH SEVERITY& THREAT [facility] ZACK - 7 7 [facility] INPATIENT [facility] ZACK - 6 6 [facility] OUTPATIEN [facility] OFFICE 91673 CAMERON GORDILLO OUTPATIEN 6 6 MEDICAL T VISIT SERV 25 FOUNDATIO MINUTES N EMERGENCY 86755 ZACK DEPT 6 6 [facility] VISIT [facility] HIGH SEVERITY& THREAT [facility] ZACK - 6 6 [facility] OUTPATIEN [facility]PITAL ZACK - OTHER 6 6 [facility] ZACK - OTHER 6 6 [facility] OFFICE 65729 CAMERON GORDILLO OUTPATIEN 6 6 MEDICAL T VISIT SERV 25 FOUNDATIO MINUTES N OFFICE 91985 [place] WILL OUTPATIEN 6 6 [facility] T VISIT INTERNAL 15 MEDI MINUTES OFFICE 28890 [facility] BESSON OUTPATIEN 6 6 [facility] TRACY T VISIT INTERNAL 15 MED MINUTES EMERGENCY 10402 ZACK 6 6 [facility] DEPARTMEN [facility] T VISIT HIGH/URGE NT SEVERITY EMERGENCY 85204 RUDY WANG DEPT 6 6 PHYSICIAN VISIT S, [facility] HIGH SEVERITY& THREAT [facility] ZACK - 6 6 [facility] OUTPATIEN [facility] EMERGENCY 48768 ZACK 6 6 [facility] DEPARTMEN [facility] T VISIT MODERATE SEVERITY EMERGENCY 65206 RUDY WILCOX 6 6 PHYSICIAN CHIDI DEPARTMEN S, PLLC T VISIT HIGH/URGE NT SEVERITY HOSPITAL ZACK - 6 6 [facility] OUTPATIEN INC T [facility] INPATIENT 6 6 [facility] INPATIENT 6 6 [facility] ZACK - 5 5 [facility] OUTPATIEN INC T EMERGENCY 45111 ZACK 5 5 [facility] DEPARTMEN INC T VISIT LOW/MODER SEVERITY [facility] INPATIENT 5 5 [facility] INPAT[facility] 5 5 [facility] ZACK - 5 5 [facility] INPATIENT INC OFFICE 95479 ZACK STEWARTEN 5 5 [facility] VISIT 5 HOSPITAL MINUTES P OFFICE 77786 ZACK CALDERON OUTPATIEN 5 5 [facility] 10 P MINUTES EMERGENCY 68093 ZACK 5 5 [facility] DEPARTMEN INC T VISIT LIMITED/M INOR [facility] ZACK - 5 5 [facility] OUTPATIEN INC T OFFICE 32940 CAMERON GORDILLO OUTONESIMO 5 5 MEDICAL T VISIT SERV 25 FOUNDATIO MINUTES [facility] ZACK - 5 5 [facility] OUTPATIEN INC [facility]OSPITAL ZACK - 5 5 [facility] OUTPATIEN INC T OFFICE 51586 [place] WILL OUTPATIEN 5 5 [facility] T VISIT INTERNAL 25 MEDI MINUTES OFFICE 01691 ZACK CALDERON OUTPATIEN 5 5 [facility] T VISIT HOSPITAL 15 P MINUTES HOSPITAL ZACK - 5 5 [facility] OUTPATIEN INC HOSPITAL ZACK - OTHER 5 5 [facility] INC OFFICE 34390 ZACK CONNELL 5 5 [facility] T VISIT HOSPITAL 10 P MINUTES [facility] INPATIENT 5 5 [facility] OFFICE 96725 [place] ERIBERTO GORDILLO OUTDICKSONEN 5 5 MEDICAL T VISIT SERV 25 FOUNDATIO MINUTES N [facility] INPATIENT 5 5 [facility] INPATIENT 5 5 [facility] INPAT[facility] 5 5 [facility] ZACK - 5 5 [facility] INPATIENT [facility] EMERGENCY 22863 ZACK Dawn 5 5 [facility] T VISIT P LOW/MODER SEVERITY [facility] ZACK - 5 5 [facility] OUTPATIEN [facility] HOSPITAL ZACK - 5 5 [facility] OUTPATIEN [facility] OFFICE 97981 CAMERON GORDILLO OUTPATIEN 4 4 MEDICAL T VISIT SERV 25 FOUNDATIO MINUTES [facility] ZACK - 4 4 [facility] OUTPATIEN [facility] EMERGENCY 93201 ZACK 4 4 [facility] T VISIT MODERATE SEVERITY [facility] ZACK - 4 4 [facility] OUTPATIEN [facility] EMERGENCY 01423 [facility] DEPT 4 4 ERIC IMT VISIT EMERGENCY HIGH PHYS SEVERITY& THREAT [facility] ZACK - OTHER 4 4 [facility] OFFICE 26158 CAMERON GORDILLO OUTPATIEN 4 4 MEDICAL T VISIT SERV 25 FOUNDATIO MINUTES [facility] ZACK - 4 4 [facility]PATIEN [facility] ZACK - KELLIE 4 4 [facility] ZACK - 4 4 [facility] OUTPATIEN [facility] OFFICE 05934 CAMERON GORDILLO OUTPATIEN 3 3 MEDICAL T VISIT SERV 25 FOUNDATIO MINUTES OFFICE 19659 [facility] IMELDANISA OUTPATIEN 3 3 PHYSICIAN JAM T VISIT S GROUP 15 MINUTES HOSPITAL ZACK - 3 3 [facility] OUTPATIEN [facility] HOSPITAL ZACK - 3 3 [facility] OUTPATIEN [facility] EMERGENCY 06993 ZACK 3 [address] [facility] T VISIT LIMITED/M INOR PROB EMERGENCY 68703 EMEKA ALFORD 3 3 EMERGENCY III [facility] T VISIT HIGH/URGE NT SEVERITY [facility] ZACK - 3 3 [facility] EMERGENCY 31118 ZACK 3 [address] [facility] T VISIT HIGH/URGE NT SEVERITY EMERGENCY 15437 EMEKA LIRA DEPT 3 3 EMERGENCY VISIT SERVICES HIGH SEVERITY& THREAT [facility] ZACK - 3 3 [facility] ZACK [facility] 3 3 [facility] OFFICE 30733 CAMERON GORDILLO OUTPATIEN 3 3 MEDICAL T VISIT SERV 25 FOUNDATIO MINUTES [facility] ZACK - 3 3 [facility] ZACK - 3 3 [facility] ZACK - 3 3 [facility] ZACK - 3 3 [facility] ZACK [facility] 3 3 [facility] ZACK - 2 2 [facility] EMERGENCY 68782 EMEKA CASTELLANO DEPT 2 2 EMERGENCY VISIT SERVICES HIGH SEVERITY& THREAT [facility] ZACK - 2 2 [facility] 2 2 [facility] OFF[facility] 95272 CAMERON ERIBERTO GORDILLO OUTPATIEN 2 2 MEDICAL T VISIT SERV 25 [facility] ZACK - 2 2 [facility] 2 2 [facility] OFF[facility] 46600 CAMERON ERIBERTO GORDILLO OUTPATIEN 2 2 MEDICAL T [facility]ISIT SERV 15 [facility] ZACK - 2 2 [facility] Z[facility] - 2 2 [facility] Z[facility] - 2 2 [facility] EMERGENCY 58316 EMEKA ALFORD DEPT 2 2 EMERGENCY III [facility] VISIT SERVICES HIGH SEVERITY& THREAT [facility] EMERGENCY 97249 ZACK 2 2 [facility] VISIT HIGH/URGE NT SEVERITY [facility] ZACK - 2 2 [facility] Z[facility] - 2 2 [facility] EM[facility]GENC[facility] 87931 ZACK 2 2 [facility] VISIT HIGH/URGE NT SEVERITY EMERGENCY 24903 EMEKA WILCOX DEPT 2 2 EMERGENCY [facility] VISIT SERVICES HIGH SEVERITY& THREAT [facility] ZACK - 2 2 [facility] INPATIENT [facility] OFFICE 23660 [facility]AW[facility] OUTPATIEN 2 2 CARE CRI T VISIT ASSOCIATE 25 S, PSC MINUTES OFFICE 58937 [facility]PATIEN 2 2 CARE CRI T VISIT ASSOCIATE 15 S, PSC MINUTES HOSPITAL ZACK - 2 2 [facility] T EMERGENCY 32259 ZACK 2 2 [facility] T VISIT LOW/MODER SEVERITY EMERGENCY 18589 EMEKA ALFORD 2 2 EMERGENCY III [facility] T VISIT HIGH/URGE NT SEVERITY [facility]OSP[facility] ZACK - 2 2 [facility] OUT[facility]EN [facility] T OFFICE 07638 [place] OUTPATIEN 2 2 MEDICAL T VISIT SERV 25 FOUNDATIO MINUTES OFFICE 75455 PA[facility] PAWSAT OUTPATIEN 2 2 Aug T NEW 30 MINUTES HOSPITAL ZACK - 1 1 [facility]PITAL ZACK - 1 1 [facility] T OFFICE 82874 [place] OUTPATIEN 1 1 MEDICAL T VISIT SERV 25 FOUNDATIO MINUTES HOSPITAL ZACK - 1 1 [facility] EMERGENCY 34436 ZACK 1 1 [facility] T VISIT MODERATE [facility]VERITY [facility] ZACK - 1 1 [facility] ZACK - 1 1 [facility] ZACK - 1 1 [facility] T OFFICE 14119 [place] OUTPATI[facility] 1 1 [place] T NEW 45 CLINIC MINUTES [facility] ZACK [facility] 1 1 [facility] [facility] T OFFICE 39450 [place] [facility] OUTPATIEN 1 1 MEDICAL T NEW 60 SERV MINUTES [facility] - 1 1 [facility] INC T OFFICE 00674 FAMILY LOGANBERRY OUTPATIEN 1 1 CARE NILO T VISIT ASSOCIATE 40 S MINUTES [facility] T EMERGENCY 76235 [facility] 1 1 [facility] DEPARTMEN INC T VISIT LOW/MODER SEVERITY EMERGENCY 41324 EMEKA WU 1 1 EMERGENCY JAM DEPARTMEN SERVICES T VISIT MODERATE SEVERITY OFFICE 55964 FAMILY JADA OUTPATIEN 1 1 CARE NILO T VISIT ASSOCIATE 25 S MINUTES OFFICE 04135 ANKUSH LECHUGA JR OUTPATIEN 1 1 ELAINE ELAINE T VISIT 15 MINUTES [facility] T OFFICE 53898 ANKUSH LECHUGA JR OUTPATIEN 1 1 ELAINE ELAINE T NEW 45 MINUTES [facility] - [facility] T OFFICE 23850 FAMILY ELIAS OUTPATIEN 1 1 CARE NILO T VISIT ASSOCIATE 25 S MINUTES [facility] 1 [facility] T EMERGENCY 27021 [facility] 1 1 [facility] DEPARTMEN INC T VISIT LOW/MODER SEVERITY EMERGENCY 50665 EMEKA CASTELLANO 1 1 EMERGENCY DEPARTMEN SERVICES T VISIT HIGH/URGE NT SEVERITY OFFICE 02716 FAMILY BRENDAN Estrella OUTPATIEN 1 1 CARE T VISIT ASSOCIATE 15 S MINUTES EMERGENCY 80761 EMEKA WILCOX 0 0 EMERGENCY [facility] DEPARTMEN SERVICES T VISIT HIGH/URGE NT SEVERITY [facility] INC T EMERGENCY 68006 [facility] 0 0 [facility] DEPARTMEN INC T VISIT LOW/MODER SEVERITY OFFICE 77393 FAMILY BRENDAN J OUTPATIEN 0 0 CARE T VISIT ASSOCIATE 15 S MINUTES OFFICE 00646 FAMILY BRENDAN J OUTPATIEN 0 0 CARE T VISIT ASSOCIATE 15 S MINUTES [facility] T OFFICE 31889 FAMILY MULBERRY OUTPATIEN 0 0 CARE NILO T VISIT ASSOCIATE 25 S MINUTES [facility] - [facility] 57817 [facility] PHYS[facility] JAM T NEW 45 S GROUP MINUTES [facility] - 0 0 [facility] OUTPATIEN INC T EMERGENCY 52358 [facility] 0 0 [facility] DEPARTMEN INC T VISIT MODERATE SEVERITY EMERGENCY 60272 EMEKA WILCOX 0 0 EMERGENCY [facility] DEPARTMEN SERVICES T VISIT HIGH/URGE NT SEVERITY OFFICE 95636 FAMILY MULBERRY OUTPATIEN 0 0 CARE NILO T VISIT ASSOCIATE 25 S MINUTES OFFICE 93210 FAMILY MULBERRY, OUTPATIEN 0 0 CARE CLEO T T VISIT ASSOCIATE 15 S MINUTES OFFICE 33846 FAMILY MULBERRY, OUTPATIEN 0 0 CARE CLEO T T VISIT ASSOCIATE 25 S MINUTES OFFICE 25813 FAMILY MULBERRY, OUTPATIEN 0 0 CARE CLEO T T VISIT ASSOCIATE 15 S MINUTES OFFICE 33948 FAMILY MULBERRY, OUTPATIEN 0 0 CARE CLEO T T VISIT ASSOCIATE 25 S MINUTES EMERGENCY 09625 EMEKA WILCOX, DEPT 0 0 EMERGENCY TAYA S VISIT SERVICES HIGH SEVERITY& ASSOCIATE [facility] IN[facility]IENT INC OFFICE 97961 FAMILY JADA OUTPATIEN 0 0 CARE CLEO T T VISIT ASSOCIATE 15 S MINUTES EMERGENCY 10913 [facility] 0 0 [facility] DEPARTMEN INC T VISIT LOW/MODER SEVERITY [facility] 0 [facility] INC T [facility] - 0 0 [facility] INC T OFFICE 09694 MEANS BUTROS, OUTPATIEN 9 9 ADULT REZSHEALLA T VISIT [facility] T OFFICE 29080 MEANS BUTROS, OUTPATIEN 9 9 ADULT RERANDALLLLA T VISIT [facility] T OFFICE 07325 MEANS BUTROS, CONSULTAT 9 9 ADULT REZKALLA ION PRIMARY [facility] PATIENT CENTER 80 MIN OFFICE 21990 FAMILY JADA OUTPATIEN 9 9 CARE CLEO T T VISIT ASSOCIATE 15 S MINUTES [facility] - 9 9 [facility] OUTPATIEN INC [facility] - 9 9 [facility] INC T OFFICE 77804 FAMILY JADA OUTPATIEN 9 9 CARE CLEO T T VISIT ASSOCIATE 25 S MINUTES OFFICE 01915 FAMILY JADA OUTPATIEN 9 9 CARE CLEO T T VISIT ASSOCIATE 25 S MINUTES OFFICE 76160 FAMILY KO OCAMPO 8 8 CARE R PADMINI T VISIT ASSOCIATE 25 S MINUTES [facility] - 8 8 [facility] INC T OFFICE 01538 Sameer MARCOS 8 8 CARE G T VISIT ASSOCIATE 15 S MINUTES [facility] Oquendo 8 8 [facility] 39632 [facility] 8 [address] [facility] T VISIT LOW/MODER SEVERITY EMERGENCY 85635 [facility] 8 [address] [facility] T [facility]ISIT LIMITED/M INOR [facility] ZACK - Rodrigo 8 [facility]
--- OUTSIDE RECORDS SUMMARY | 2016-10-20 19:37 | External Medical Summary Rpt ---
Author Author , Organization [employer] Address Unknown Phone Unavailable Care Team Providers Care Manager Chemical Name Role Phone CALDERON VALENTINE, CALDERON Unavailable [...] TRACY RODRIGUEZ ALL, RODRIGUEZ ALL Unavailable Unavailable [facility] Unavailable Unavailable SERVICE, [facility] Unavailable Unavailable SERVICE, [facility] BUTROS, REZKALLA, Unavailable Unavailable BUTROS, REZKALLA [facility] Unavailable Unavailable CONSULTANTS O, [facility] Unavailable Unavailable [facility], [facility] Un[facility] Un[facility], [facility] Unavailable Unavailable [place], [facility] Unavailable Unavailable [facility], [facility] Unavailable Unavailable LAB, [facility] COOK JUAN J, COOK JUAN J Unavailable Unavailable BRENDAN Estrella, BRENDAN J Unavailable Unavailable Sameer CARDONA, RBENDAN, Unavailable Unavailable J G CROSSFIELD, DANNITA, Unavailable [...] [facility] Unavailable Unavailable INC, [facility] Unavailable Unavailable HOSPITAL P, [facility] PETERS LANNY, PETERS LANNY Unavailable Unavailable PETERS LANNY, PETERS LANNY Unavailable Unavailable PETERS, GEE A, Unavailable Unavailable PETERS, GEE A [facility], Unavailable Unavailable [facility] JOINER, JOINER Unavailable Unavailable KLARISSA IMT, KLARISSA Unavailable Unavailable [facility]MT [facility] Un[facility] Unavailable [facility], [facility] KOTTER JUAN J, KOTTER [...] [facility] Unavailable Unavailable [facility], [facility] Unavailable Unavailable [facility], [facility] Unavailable Unavailable SERVICES, [facility] MCKEMIE JR NANCY, Unavailable Unavailable MCKEMIE JR NANCY MICH CARLOS, MICH Unavailable Unavailable CARLOS XAVI EPPS P, Unavailable Unavailable [facility] P MULBERRY NILO, Unavailable Unavailable MULBERRY NILO MULBERRY, CLEO T, Unavailable Unavailable MULBERRY, CLEO T CROWELL SON, CROWELL SON Unavailable Unavailable [facility] Unavailable Unavailable [facility], [facility] Clemente OCAMPO, Unavailable Unavailable Clemente OCAMPO [...] Unavailable Unavailable EQUIPME, [facility] Unavailable Unavailable EQUIPME, [facility] Unavailable Unavailable EMERGENCY PHYS, [facility] Unavailable Unavailable CLINIC, [facility] STRAWZELL CRI, Unavailable Unavailable STRAWZELL CRI [facility], Unavailable Unavailable [facility], Unavailable Unavailable [facility] WEI RAND, WEI RAND Unavailable Unavailable WEHRMAN III NANCY, Unavailable Unavailable WEHRMAN III NANCY [facility] Unavailable Unavailable LLC, [facility] ELSA LIRA, ELSA LIRA Unavailable Unavailable Purpose Continuity of Care Document - 11-11-2007 through 2016 Problems Code Diagnosis DOS Provider Status E109 TYPE 1 09-14-2016 [facility] MELLITUS GROUP WITHOUT COMPLICATIO NS I213 ST 09-14-2016 [facility] MYOCARDIAL GROUP INFARCTION UNS SITE I739 PERIPHERAL 09-14-2016 [facility] VASCULAR [facility] DISEASE GROUP UNSPECIFIED N183 CHRONIC 09-14-2016 [facility] KIDNEY [facility] DISEASE GROUP STAGE 3 MODERATE E1142 TYPE 2 09-13-2016 [facility] P W/DIAB POLYNEUROPA THY I119 HYPERTENSIV 09-13-2016 [facility] HEART PHYSICIANS, DISEASE PLLC WITHOUT HEART FAILURE I129 HYPERTENSIV 09-13-2016 [facility] CKD [facility] W/STAGE 1-4 INC CKD OR UNS CKD H78178 ASHD OUZINKIE 09-13-2016 [facility] COR ART [facility] W/UNSTABLE INC ANGINA PECTORIS I5043 ACUTE ON 09-13-2016 [facility] P SYSTOLIC & DIASTOLIC CHF I773 ARTERIAL 09-13-2016 [facility] FIBROMUSCUL [facility] AR INC DYSPLASIA R0602 SHORTNESS 09-13-2016 [facility] OF BREATH PHYSICIANS GROUP R0689 OTHER 09-13-2016 [facility] ES OF SERVICE BREATHING Z794 FDC 09-13-2016 [facility] CURRENT USE [facility] OF INSULIN INC E039 HYPOTHYROID 06-09-2016 [facility] ISM [facility] UNSPECIFIED INC E118 TYPE 2 06-09-2016 [facility] DIABETES [facility] MELLITUS INC W/UNS COMPLICATIO NS E119 TYPE 2 03-21-2016 [facility] MELLITUS FOUNDATION WITHOUT COMPLICATIO NS M810 AGE-RELATED 03-21-2016 [facility] OSTEOPOROSI FOUNDATION S W/O CURRNT PATH FX N184 CHRONIC 03-21-2016 [facility] DISEASE FOUNDATION STAGE 4 SEVERE N250 RENAL 03-21-2016 [place] [facility] OSTEODYSTRO SERV PHY FOUNDATION N390 URINARY 03-18-2016 [facility] INFECTION LA SITE NOT SPECIFIED B51559 TYPE 2 02-28-2016 [facility] MELLITUS [facility] P W/HYPOGLYCE VICTORIANO W/O COMA E162 HYPOGLYCEMI 02-28-2016 [facility] A PHYSICIANS, UNSPECIFIED PLLC E876 HYPOKALEMIA 02-28-2016 [facility] INC I10 ESSENTIAL 02-28-2016 [facility] HYPERTENSIO [facility] P N I5032 CHRONIC 02-28-2016 [facility] P HEART FAILURE R410 DISORIENTAT 02-28-2016 [facility] UNSPECIFIED SERVICE Z591 INADEQUATE 02-28-2016 [facility] HOS[facility] INC X00480 OTHER LONG 02-28-2016 [facility] TERM [facility] CURRENT INC DRUG THERAPY G4733 OBSTRUCTIVE 02-15-2016 [facility] APNEA ADULT MEDICAL PEDIATRIC EQUIPME K07026F MX FX 02-15-2016 [facility] PELVIS STBL HOME DISRUPT MEDICAL PELV RING EQUIPME INIT CH[place]RIKA FX I8310 VARICOSE 09-17-2015 [facility] UNS VALLEY LOWER INTERNAL EXTREM MEDI W/INFLAMMAT ION M129 ARTHROPATHY 09-17-2015 [facility] UNSPECIFIED INTERNAL MEDI Z9111 PATIENTS 09-07-2015 [facility] NONCOMPLIAN VALLEY CE WITH INTERNAL DIETARY MEDI REGIMEN N189 CHRONIC 09-05-2015 [facility] KIDNEY PHYSICIANS, DISEASE PLLC UNSPECIFIED R1110 VOMITING 09-05-2015 [facility] UNSPECIFIED [facility]ING ASS R404 TRANSIENT 09-05-2015 [facility] ALTERATION MEDICAL OF IMAGING ASS AWARENESS R4182 ALTERED 09-05-2015 [facility] MENTAL PHYSICIANS, STATUS PLLC UNSPECIFIED R464 SLOWNESS 09-05-2015 [facility] RESPONSIVEN SERVICE ESS A48993 CELLULITIS 08-16-2015 [facility] OF RIGHT VALLEY LOWER LIMB INTERNAL MED B98106 CELLULITIS 08-16-2015 [facility] OF LEFT VALLEY LOWER LIMB INTERNAL MED E1021 TYPE 1 08-10-2015 [facility] MELLITUS INC W/DIABETIC NEPHROPATHY E1065 TYPE 1 08-10-2015 [facility] MELLITUS INC WITH HYPERGLYCEM IA E138 OTH SPEC 08-10-2015 [facility] DIABETES PHYSICIANS, MELLITUS PLLC W/UNS COMPLICATIO NS R54626 CELLULITIS 08-10-2015 [facility] OF PHYSICIANS, UNSPECIFIED PLLC PART OF LIMB R739 HYPERGLYCEM 08-10-2015 [facility] UNSPECIFIED SERVICE L853 XEROSIS 08-09-2015 [facility] CUTIS VALLEY INTERNAL MED E6601 MORBID 08-05-2015 [facility] SEVERE VALLEY OBESITY DUE INTERNAL TO EXCESS MEDI CALORIES I270 PRIMARY 07-20-2015 [facility] PULMONARY [facility] HYPERTENSIO CAMPUS N I5030 UNSPECIFIED 07-20-2015 [facility] CONGESTIVE GATZKE HEART FAILURE R0600 DYSPNEA 07-20-2015 [facility] M542 CERVICALGIA 07-12-2015 [facility] M546 PAIN IN 07-12-2015 [facility] THORACIC [facility] SPINE I509 HEART 07-11-2015 [facility] FAILURE VALLEY UNSPECIFIED INTERNAL MED I8311 VARICOSE 07-11-2015 [facility] RT [place] LOWER INTERNAL EXTREMITY MED W/INFLAMMAT ION M4003 POSTURAL 07-11-2015 [facility] KYPHOSIS [place] CERVICOTHOR INTERNAL ACIC REGION MED R05 COUGH 06-05-2015 [facility] R600 LOCALIZED 05-09-2015 [facility] [...] INC ADULT N3020 OTHER 04-28-2015 [facility] CHRONIC [facility] WITHOUT HEMATURIA J209 ACUTE 03-31-2015 [facility] BRONCHITIS [facility] UNSPECIFIED INC P63573 PERSONAL 03-31-2015 [facility] HISTORY OF [facility] HOS[facility] NICOTINE INC DEPENDENCE A499 BACTERIAL 03-23-2015 [facility] INFECTION SERV UNSPECIFIED FOUNDATION R279 UNSPECIFIED 03-19-2015 [facility] LACK OF MEM HOS[facility] COORDINATIO INC N Z5189 ENCOUNTER 03-19-2015 [facility] FOR OTHER [facility] SPECIFIED INC AFTERCARE 10714 DIAB W/O 03-17-2015 [facility] COMP TYPE I HOME [JUV] NOT MEDICAL STATED EQUIPME UNCNTRL 49689 OBSTRUCTIVE 03-17-2015 [facility]EP [facility] APNEA MEDICAL EQUIPME 95091 MULTIPLE 03-17-2015 [facility] CLOSED HOME PELVIC FX MEDICAL DISRUPT EQUIPME PELVIC [place] 2449 UNSPECIFIED 03-10-2015 [facility] HYPOTHYROID INC ISM 35748 DIAB W/O 03-10-2015 [facility] COMP TYPE [facility] II/UNS NOT INC STATED UNCNTRL 5854 CHRONIC 03-10-2015 [facility] DISEASE INC STAGE IV (SEVERE) 5990 URINARY 03-10-2015 [facility] TRACT [facility] INFECTION INC SITE NOT SPECIFIED 01212 UNSPECIFIED 03-10-2015 [facility] OSTEOPOROSI INC S 4019 UNSPECIFIED 03-02-2015 [facility] ESSENTIAL [place] HYPERTENSIO INTERNAL N MEDI 4541 VARICOSE 03-02-2015 [facility] LOWER VALLEY INTERNAL EXTREMITIES MEDI W/INFLAMMAT ION 93286 UNSPECIFIED 03-02-2015 [facility] CONSTIPATIO INTERNAL N MEDI 5939 UNSPECIFIED 03-02-2015 [facility] DISORDER VALLEY OF KIDNEY INTERNAL AND URETER MEDI 7823 EDEMA 03-02-2015 [facility] INTERNAL MEDI 05734 UNSPECIFIED 03-02-2015 [facility] RETENTION [place] OF URINE INTERNAL MEDI 01267 UNSPECIFIED 02-24-2015 [facility] ARTHROPATHY [facility] P MULTIPLE SITES 7813 LACK OF 02-24-2015 [facility] P V571 OTHER 02-24-2015 [facility] PHYSICAL [facility] THERAPY INC 5952 OTHER 02-03-2015 [facility] CYSTITIS [facility] P 2761 HYPOSMOLALI 01-17-2015 [facility] TY AND/OR HEALTH HYPONATREMI CAMPUS A 35690 LEUKOCYTOSI 01-17-2015 [facility] S HEALTH UNSPECIFIED CAMPUS 5849 ACUTE 01-17-2015 [facility] KIDNEY HEALTH FAILURE CAMPUS UNSPECIFIED 7197 DIFFICULTY 01-17-2015 [facility] IN WALKING HEALTH CAMPUS 94963 MUSCLE 01-17-2015 [facility] WEAKNESS HEALTH (GENERALIZE CAMPUS D) 3391 UNSPECIFIED 01-17-2015 [facility] DEBILITY HEALTH CAMPUS 9953 ALLERGY 01-17-2015 [facility] UNSPECIFIED HEALTH NOT CAMPUS ELSEWHERE CLASSIFIED 86696 HTN CKD UNS 12-25-2014 [place] [facility] W/CKD SERV STAGE I FOUNDATION THRU STAGE IV/UNS 515 POSTINFLAMM 12-16-2014 [facility] ATORY [facility] PULMONARY FIBROSIS V5881 FITTING AND 12-16-2014 [facility] ADJUSTMENT [facility]BILEX OF VASCULAR CATHETER 4280 CONGESTIVE 12-09-2014 [facility] HEART [facility]BI[facility] FAILURE UNSPECIFIED 4293 CARDIOMEGAL 12-09-2014 [facility] Y [facility] 1101 DERMATOPHYT 12-04-2014 [facility] OSIS OF E NAIL 68196 DIAB 12-04-2014 [facility] W/PERIPH E CIRC D/O TYPE II/UNS NOT UNCNTRL 4439 UNSPECIFIED 12-04-2014 [facility] PERIPHERAL E VASCULAR DISEASE 9172 FOOT&TOE 12-04-2014 [facility] BLISTER E WITHOUT MENTION OF INFECTION 9243 CONTUSION 12-04-2014 [facility] OF TOE E 16786 ABDOMINAL 11-03-2014 [facility] PAIN RIGHT MEDICAL UPPER IMAGING ASS QUADRANT 5533 DIAPHRAGMAT 11-01-2014 [facility] KODY W/O MEDICAL MENTION IMAGING ASS OBSTRUCTION /GANGREN 7905 OTHER 11-01-2014 [facility] NONSPECIFIC MEDICAL ABNORMAL IMAGING ASS SERUM ENZYME LEVELS 7862 COUGH 10-30-2014 [facility] V5869 LONG-TERM 10-30-2014 [facility] (CURRENT) [facility] USE OF INC OTHER MEDICATIONS 64279 UNSPECIFIED 10-28-2014 [facility] OTALGIA [facility] 7224 DEGENERATIO 10-28-2014 [facility] N OF MEDICAL CERVICAL IMAGING ASS INTERVERTEB RAL DISC 7231 CERVICALGIA 10-28-2014 [facility] 17730 SENILE 06-23-2014 [facility] OSTEOPOROSI [facility] S INC 2689 UNSPECIFIED 05-20-2014 [facility] VITAMIN D [facility] DEFICIENCY INC 2724 OTHER AND 05-20-2014 [facility] UNSPECIFIED [facility]OS[facility] INC HYPERLIPIDE VICTORIANO 11700 OTHER 05-20-2014 [facility] OSTEOPOROSI [facility] S INC 87323 HYPERTENSIV 02-20-2014 [facility] E HEART [facility] DISEASE INC UNSPEC W/HEART FAIL 4660 ACUTE 02-20-2014 [facility] BRONCHITIS [facility] INC 490 BRONCHITIS 02-20-2014 [facility] SPECIFIED PHYS ACUTE OR CHRONIC 62866 SWELLING OF 02-20-2014 [facility] N EMERGENCY PHYS 5853 CHRONIC 11-18-2013 [facility] K[facility] SERV DISEASE FOUNDATIO STAGE III (MODERATE) 586 UNSPECIFIED 10-29-2013 [facility] RENAL [facility]YSIC[facility] FAILURE [place] 7262 OTHER 05-30-2013 [facility] AFFECTIONS PHYSICIANS OF SHOULDER GROUP REGION NEC 67182 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-2013 [facility] 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 25529 DISORDER OF 05-21-2013 [facility] BONE AND MEDICAL CARTILAGE IMAGING ASS UNSPECIFIED V1559 PERSONAL 05-21-2013 [facility] HISTORY OF MEDICAL OTHER IMAGING ASS INJURY V4981 ASYMPTOMATI 05-21-2013 [facility] C MEDICAL POSTMENOPAU IMAGING ASS KEELY STATUS 74433 UNSPECIFIED 04-29-2013 [facility] V[facility]AL [facility] INFECTION SERVICES IN CCE & UNS SITE 4659 ACUTE URIS 04-29-2013 [facility] OF EMERGENCY UNSPECIFIED SERVICES SITE 56536 CRAMP OF 04-05-2013 [facility] LIMB PHYSICIANS LA 7241 PAIN IN 01-16-2013 [facility] SPINE [facility] P 65742 ORTHOPNEA 01-16-2013 [facility] P 65489 OTHER 01-16-2013 [facility] DYSPNEA AND EMERGENCY SERVICES RESPIRATORY ABNORMALITI ES 7265 ENTHESOPATH 10-17-2012 [facility] Y OF HIP [facility] REGION INC 79735 PAIN IN 08-22-2012 [facility] JOINT MEDICAL PELVIC IMAGING ASS REGION AND THIGH 2749 GOUT, 07-16-2012 [place] [address] SHORTNESS 05-28-2012 [facility] 4240 MITRAL 05-27-2012 [facility] DISORDERS INC 59278 OSTEOARTHRO 05-27-2012 [facility] S UNSPEC [facility] WHETHER INC GEN/LOC UNSPEC SITE 07503 CHEST PAIN 05-27-2012 [facility] UNSPECIFIED MEDICAL IMAGING ASS 78795 OTHER CHEST 05-27-2012 [facility] P 5859 CHRONIC 12-01-2011 [facility]IDNEY [facility] DISEASE INC UNSPECIFIED 43370 HYPERSOMNIA 11-15-2011 [facility] WITH SLEEP [facility] APNEA UNSPECIFIED 16921 ANEMIA OF 10-30-2011 [facility] P DISEASE 2859 UNSPECIFIED 10-30-2011 [facility] ANEMIA [facility] 29837 DEGEN 10-30-2011 [facility] THORACIC/TH MEDICAL ORACOLUMBAR IMAGING ASS INTERVERTEB RAL DISC 42605 DEGEN 10-30-2011 [facility] LUMBAR/LUMB MEDICAL OSACRAL IMAGING ASS INTERVERTEB RAL DISC 7242 LUMBAGO 10-30-2011 [facility] P 7245 UNSPECIFIED 10-30-2011 [facility] BACKACHE EMERGENCY SERVICES 7840 HEADACHE 10-30-2011 [facility] INC 62760 OTHER 10-20-2011 [facility] DISEASES OF MEDICAL LUNG NOT IMAGING ASS ELSEWHERE CLASSIFIED 5199 UNSPECIFIED 10-20-2011 [facility] DISEASE OF MEDICAL IMAGING ASS RESPIRATORY SYSTEM V5867 LONG-TERM 10-19-2011 [facility] USE OF [facility] P 3559 MONONEURITI 10-14-2011 [facility] S OF HOME UNSPECIFIED MEDICAL SITE EQUIPME 66179 OTHER 10-14-2011 [facility] MALAISE AND HOME FATIGUE MEDICAL EQUIPME 5180 PULMONARY 10-05-2011 [facility] COLLAPSE [facility] ASS 03301 OTHER 09-30-2011 [facility] STAPHYLOCOC [facility] CUS INC INFECTION IN CCE & UNS SITE 2768 HYPOPOTASSE 09-30-2011 [facility] VICTORIANO [employer] 2888 OTHER 09-30-2011 [facility] SPECIFIED DISEASE OF ASSOCIATES, WHITE BLOOD PSC CELLS 4599 UNSPECIFIED 09-30-2011 [facility] CIRCULATORY INC SYSTEM DISORDER 486 PNEUMONIA, 09-30-2011 [facility] ORGANISM [facility] UNSPECIFIED INC 31081 OTHER 09-30-2011 [facility] SPECIFIED MEDICAL DISORDERS IMAGING ASS OF BLADDER 96719 OSTEOARTHRO 09-30-2011 [facility] SIS UNSPEC MEDICAL WHETHER IMAGING ASS GEN/LOC LOWER LEG 38811 EFFUSION OF 09-30-2011 [facility] LOWER LEG MEDICAL JOINT IMAGING ASS 7291 UNSPECIFIED 09-30-2011 LAB [facility] MYALGIA [employer] MYOSITIS 7295 PAIN IN 09-30-2011 [facility] SOFT TISSUES OF ASSOCIATES, LIMB PSC 7821 RASH AND 09-14-2011 [facility] OTHER NONSPECIFIC ASSOCIATES, SKIN PSC ERUPTION V770 SCREENING 09-14-2011 [facility] FOR THYROID DISORDER ASSOCIATES, [facility] V7791 SCREENING 09-14-2011 [facility] FOR LIPOID DISORDERS ASSOCIATES, PSC 00781 DIAB 06-24-2011 [facility] MAR W/NEURO MANIFESTS TYPE II/UNS NOT UNCNTRL 7038 OTHER 06-24-2011 [facility] MAR SPECIFIED DISEASE OF NAIL 81142 SECONDARY 03-29-2011 [facility] OSTEOARTHRO CLINIC PSC SIS LOWER LEG 30973 PAIN IN 03-29-2011 [facility] JOINT, [facility]OS[facility] LOWER LEG INC 50780 BACKGROUND 03-25-2011 [facility] DIABETIC VISION RETINOPATHY 96172 NUCLEAR 03-25-2011 [facility] SCLEROSIS VISION 7820 DISTURBANCE 02-09-2011 [facility] OF SKIN [facility] SENSATION INC 2767 HYPERPOTASS 02-07-2011 [facility] EMIA ASSOCIATES 460 ACUTE 02-07-2011 [facility] NASOPHARYNG ASSOCIATES ITIS 6929 CONTACT 01-27-2011 [facility] DERMATITIS& EMERGENCY OTHER SERVICES ECZEMA DUE UNSPEC CAUSE 59449 PAIN IN 12-09-2010 [facility] JOINT, ASSOCIATES MULTIPLE SITES 52058 UNSPEC 10-28-2010 ALLRAN JR VENTRAL ELAINE KODY W/O MENTION OBST/GANGRE N 98026 ABDOMINAL 09-21-2010 [facility] PAIN, [facility]OS[facility] GENERALIZED INC 7831 ABNORMAL 08-24-2010 [facility] WEIGHT GAIN PHYSICIANS LA 5110 PLEURISY 07-18-2010 [facility] WITHOUT EMERGENCY MENTION SERVICES EFFUS/[place] [address] PAINFUL 07-18-2010 [facility] RESPIRATION [facility] ASS 2721 PURE 07-08-2010 [facility] HYPERGLYCER PHYSICIANS IDEMIA [place] 7944 NONSPECIFIC 07-07-2010 [facility] ABNORM ASSOCIATES RESULTS KIDNEY FUNCTION STUDY 02168 ASTHMA, 06-16-2010 [facility] UNSPECIFIED EMERGENCY , SERVICES UNSPECIFIED STATUS 88848 DIAB 05-21-2010 PETERS LANNY W/OPHTH MANIFESTS TYPE II/UNS NOT UNCNTRL 8250 CLOSED 04-28-2010 [facility] FRACTURE OF [facility] CALCANEUS INC V5416 AFTERCARE 04-28-2010 [facility] HEALING MEDICAL TRAUMATIC IMAGING ASS FRACTURE LOWER LEG 8248 UNSPECIFIED 03-31-2010 [facility] CLOSED MEDICAL FRACTURE OF IMAGING ASS ANKLE 46531 OTHER ANKLE 03-31-2010 [facility] STRAIN S INC 9596 INJURY 02-17-2010 [facility] OTHER AND MEDICAL UNSPECIFIED IMAGING ASS HIP AND THIGH 9597 INJURY 02-17-2010 [facility] OTHER&UNSPE MEDICAL CIFIED KNEE IMAGING ASS LEG ANKLE&FOOT 920 CONTUSION 02-16-2010 [facility] OF FACE EMERGENCY SCALP AND SERVICES NECK EXCEPT EYE 74535 CONTUSION 02-16-2010 [facility] OF HIP [facility] INC E8859 FALL FROM 02-16-2010 [facility] OTHER EMERGENCY SLIPPING SERVICES TRIPPING OR STUMBLING 77000 INSOMNIA 02-04-2010 [facility] UNSPECIFIED ASSOCIATES V0382 NEED PROPH 02-04-2010 [facility] VACCINATION ASSOCIATES AGAINST STREP PNEUMONE 15297 URINARY 11-04-2009 [facility] FREQUENCY ASSOCIATES 2811 OTHER 08-24-2009 [facility] VITAMIN B12 ASSOCIATES DEFICIENCY ANEMIA 514 PULMONARY 08-24-2009 [facility] CONGESTION ASSOCIATES AND HYPOSTASIS E8490 PLACE OF 07-10-2009 [facility] OCCURRENCE, MEDICAL HOME IMAGING ASSOCIATES 36889 GEN 04-15-2009 [facility]AR[facility]RO [facility] INVOLVING MULTIPLE SITES 7919 OTHER 03-31-2009 [facility] NONSPECIFIC [facility] FINDING INC EXAMINATION OF URINE 79934 NEPHRITIS&N 03-24-2009 [facility]ULT EPHROPATHY PRIMARY W/OTH CARE CENTER PATHOLOG KIDNEY LES 39274 NOCTURIA 03-11-2009 [facility] 06496 HYPERSOMNIA 02-26-2009 [facility] ASSOC[facility] UNSPECIFIED 83368 DIAB 11-28-2008 LORRAINE W/OPHMADONNA FLYNN A MANIFESTS TYPE II/UNS TYPE UNCNTRL 4619 ACUTE 06-17-2008 [facility] SINUSITIS, ASSOCIATES UNSPECIFIED 8082 CLOSED 03-18-2008 PROF[facility] FRACTURE OF L REHAB PUBIS ASSOC PSC 7089 UNSPECIFIED 11-17-2007 [facility] URTICARIA ASSOCIATES 6868 OTH SPEC 11-12-[facility] SERV TISSUE V642 SURG/OTH 11-11-2007 [facility] PROC NOT [facility] CARRIED OUT INC BECAUSE PTS DECN Immunization Name Date Route CVX Reacti Commen Provid Is Given on t er Refuse d PPSV23 FAMILY No 2009 CARE VACCIN ASSOCI E 2 ATES YRS OR OLDER FOR SUBQ/I M USE Procedures Procedure DOS Code Location Performer Comment SBSQ 58725 [facility] 7 PHYSICIAN CARE/DAY S GROUP 25 MINUTES FLUORO [id number] [facility] MULTI 7 [facility] CORONARY INC INC ARTERIES LOW OSMOLAR CONT DILAT [id number] [facility] CORONARY 7 [facility] ART 2 ART INC INC 2 RX-ELUT IL DEVC PERQ FLUOROSCO [id number] [facility] PY LEFT 7 [facility] HEART LOW INC INC OSMOLAR CONTRAST FLUORO [id number] [facility] BILATERAL 7 [facility] RENAL INC INC ART LOW OSMOLAR CONTRST INITIAL 88879 [facility] 7 PHYSICIAN CARE/DAY S GROUP 70 MINUTES MEASUREME [id number] [facility] NT 7 [facility]OS[facility] CARDIAC INC INC SAMPLING PRESS LT HEART PERQ AMBULANCE A0429 [facility] SERVICE 7 AMBULANCE AMBULANCE [facility] SERVICE SERVICE EMERGENCY TRANSPORT GROUND A0425 [facility] 7 AMBULANCE AMBULANCE PER SERVICE SERVICE STATUTE [facility] 25394 [facility] BARRETO JR ROUTINE 7 [facility] W/LEAST P 12 LDS I&R ONLY LIPID 77631 [facility] PANEL 6 [facility]OS[facility] INC INC HEMOGLOBI 64926 [facility] N 6 [facility]OS[facility] GLYCOSYLA INC INC ALEX A1C COLLECTIO 42302 [facility] N VENOUS 6 [facility]OS[facility] BLOOD INC INC VENIPUNCT URE COMPREHEN 23326 [facility] D[facility] SIVE 6 [facility] [place] [address] [facility] THYROID 6 [facility]OS[facility] STIMULATI INC INC NG HORMONE TSH VOLUME 83604 COMBINED COMBINED MEASUREME 6 PHYSICIAN PHYSICIAN NT TIMED S LA S LA COLLECTIO N EACH RENAL 29816 COMBINED COMBINED FUNCTION 6 PHYSICIAN PHYSICIAN PANEL S LA S LA URNLS DIP 24048 COMBINED COMBINED 6 PHYSICIAN PHYSICIAN STICK/TAB S LA S LA LET REAGENT AUTO MICROSCOP Y BLOOD 86060 COMBINED COMBINED COUNT 6 PHYSICIAN PHYSICIAN COMPLETE S LA S LA AUTO&AUTO DIFRNTL WBC CULTURE 22541 COMBINED COMBINED BACTERIAL 6 PHYSICIAN PHYSICIAN S LA S LA QUANTTATI VE COLONY COUNT URINE CULTURE 71846 COMBINED COMBINED BCT 6 PHYSICIAN PHYSICIAN ISOL&PRSM S LA S LA PTV ID ISOLATE EA URINE 25 [id number] COMBINED COMBINED HYDROXY 6 PHYSICIAN PHYSICIAN INCLUDES S LA S LA FRACTIONS IF PERFORMED A4258 [facility]RIVA ARRIVA WERED 6 MEDICAL PERINATAL NURSE FOR LANCET EACH NORMAL A4256 ARRIVA ARRIVA LOW AND 6 MEDICAL MEDICAL HIGH CALIBRATO R SOLUTION/ CHIPS LANCETS A4259 ARRIVA ARRIVA PER BOX 6 MEDICAL MEDICAL OF 100 BLD GLU A4253 ARRIVA ARRIVA TEST/REAG 6 MEDICAL MEDICAL T STRIPS HOME BLD GLU MON-50 COLLECTIO 02575 [facility] N VENOUS 6 [facility] B[facility]OD [facility] G0378 [facility] OBSERVATI 6 [facility] ON INC INC SERVICE PER HOUR GLUC BLD 43949 [facility] GLUC MNTR 6 [facility] DEV INC INC CLEARED FDA SPEC HOME USE BASIC 13544 [facility] METABOLIC 6 [facility] PANEL INC INC CALCIUM TOTAL AMB A0427 MARY HERNANDEZ SERVICE 6 [facility] AMBULANCE ALS SERVICE SERVICE EMERGENCY TRANSPORT LEVEL 1 CREATINE 55588 [facility] KINASE 6 [facility] TOTAL INC INC THER 23901 [facility] PROPH/DX 6 [facility] NJX IV INC INC PUSH SINGLE/1S T SBST/DRUG ECG 92386 [facility] ROUTINE 6 [facility] ECG INC INC W/LEAST 12 LDS TRCG ONLY W/O I&R GLUC BLD 17466 [facility] GLUC MNTR 6 [facility] DEV INC INC CLEARED FDA SPEC HOME USE BLOOD 77248 [facility] COUNT 6 [facility] COMPLETE INC INC AUTO&AUTO DIFRNTL WBC URNLS DIP 97992 [facility] 6 [facility] STICK/TAB INC INC LET REAGENT AUTO MICROSCOP Y PRESSURIZ 10891 [facility] ED/NONPRE 6 [facility] SSURIZED INC INC INHALATIO N TREATMENT COMPREHEN 41599 [facility] SIVE 6 [facility] METABOLIC INC INC PANEL CREATINE 72522 [facility] KINASE MB 6 [facility] G0378 [facility] D[facility] OBSERVATI 6 [facility] ON INC INC SERVICE PER HOUR COLLECTIO 70885 [facility] N VENOUS 6 [facility] BLOOD INC INC VENIPUNCT URE GROUND A0425 [facility] MILEAGE 6 [facility] AMBULANCE PER SERVICE SERVICE STATUTE MILE ECG 68981 ZACK MCLEAN ROUTINE 6 [facility] W/LEAST P 12 LDS I&[place] [address] [facility] TROPONIN 6 [facility] MEM [...] TYPE SIDE EQUIPME EQUIPME RAIL W/MATTRSS BASIC 30584 [facility] METABOLIC 6 [facility] PANEL INC INC CALCIUM TOTAL COLLECTIO 71499 [facility] D[facility] N VENOUS 6 [facility] BLOOD INC INC VENIPUNCT URE LIPID 13169 [facility] D[facility] PANEL 6 [facility] INC INC HEMOGLOBI 49854 [facility] D[facility] N 6 [facility] GLYCOSYLA INC INC ALEX A1C HOS BED E0260 REID REID SEMI-ELEC 6 HOME HOME W/ANY MEDICAL MEDICAL TYPE SIDE EQUIPME EQUIPME RAIL W/MATTRSS STANDARD K0001 REID CHAUDHARII 6 HOME HOME R MEDICAL MEDICAL EQUIPME EQUIPME URNLS DIP 88333 ZACK DIXON 6 [facility] [...] STRIPS HOME BLD GLU MON-50 GLUC BLD 93385 ZACK DIXON GLUC MNTR 6 [facility] DEV INC INC CLEARED FDA SPEC HOME [facility] [id number] ZACK DIXON OBSERVATI 6 [facility] ON INC INC SERVICE PER HOUR OBSERVATI 86329 [facility] CARE 6 [place] CHARMAINE DISCHARGE INTERNAL [facility] [id number] ZACK DIXON OBSERVATI 6 [facility] ON INC INC SERVICE PER HOUR BASIC 85283 ZACK DIXON METABOLIC 6 [facility] PANEL INC INC CALCIUM TOTAL BLOOD 20262 ZACK DIXON COUNT 6 [facility] COMPLETE INC INC AUTO&[place] [address] ZACK DIXON TROPONIN 6 [facility] QUANTITAT INC INC MARIBEL GLUC BLD 24102 ZACK DIXON GLUC MNTR 6 [facility] DEV INC INC CLEARED FDA SPEC HOME USE COLLECTIO 58348 ZACK DIXON N VENOUS 6 [facility] BLOOD INC INC VENIPUNCT URE COMPREHEN 55036 ZACK DIXON SIVE 6 [facility] METABOLIC INC INC PANEL CREATINE 29483 ZACK DIXON KINASE MB 6 [facility] FRACTION INC INC ONLY INJECTION J2405 ZACK DIXON 6 [facility] ONDANSETR INC INC ON HCL PER 1 [facility] G0378 ZACK DIXON OBSERVATI 6 [facility] ON INC INC SERVICE PER HOUR COLLECTIO 12340 ZACK DIXON N VENOUS 6 [facility] [place] [address] ZACK DIXON TROPONIN 6 [facility] QUANTITAT INC INC MARIBEL GLUC BLD 62418 ZACK DIXON GLUC MNTR 6 [facility] DEV INC INC CLEARED FDA SPEC HOME USE URNLS DIP 59783 ZACKSHANDA DIXON 6 [facility] STICK/TAB INC INC LET REAGENT AUTO MICROSCOP Y THERAPEUT 15605 ZACK DIXON IC 6 [facility] INJECTION INC INC IV PUSH EACH NEW DRUG BLOOD 62813 ZACK DIXON COUNT 6 [facility] COMPLETE INC INC AUTO&AUTO DIFRNTL WBC ECG 97659 ZACK BARRETO JR ROUTINE 6 [facility] W/LEAST P 12 LDS I&R ONLY INITIAL 43454 [place] V[place]AY [address] ON INTERNAL CARE/DAY MED 30 MINUTES GROUND A0425 [facility] MILEAGE 6 AMBULANCE AMBULANCE [place] [address] ZACK DIXON INFUSION 6 [facility] THERAPY/P INC INC ROPHYLAXI S /DX 1ST TO 1 HR RADIOLOGI 77475 ZACK DIXON C 6 [facility] EXAMINATI INC [place] [address] ZACK DIXON HEAD/BRAI 6 [facility]OS[facility] N W/O INC INC CONTRAST MATERIAL AMB A0427 [facility] SERVICE 6 AMBULANCE AMBULANCE ALS SERVICE SERVICE EMERGENCY TRANSPORT LEVEL 1 CREATINE 97471 ZACK DIXON KINASE 6 [facility] [place] [address] ZACK DIXON LIPASE 6 [facility] INC INC ECG 33773 ZACK DIXON ROUTINE 6 [facility] ECG INC INC W/LEAST 12 LDS TRCG ONLY W/O I&[place] [address] COMBINED COMBINED MAGNESIUM 6 PHYSICIAN PHYSICIAN S LA S LA CYANOCOBA 84646 COMBINED COMBINED SOHA 6 PHYSICIAN PHYSICIAN VITAMIN S [place] S LA B-12 [place] [address] COMBINED COMBINED PHOSPHORU 6 PHYSICIAN PHYSICIAN S S LA S LA INORGANIC ALBUMIN 02086 COMBINED COMBINED SERUM 6 PHYSICIAN PHYSICIAN PLASMA/WH S LA S LA OLE BLOOD BLOOD 80122 COMBINED COMBINED COUNT 6 PHYSICIAN PHYSICIAN COMPLETE S LA S LA AUTO&[place] [address] COMBINED COMBINED THYROID 6 PHYSICIAN PHYSICIAN STIMULATI S LA S LA NG HORMONE TSH BASIC 98654 COMBINED COMBINED METABOLIC 6 PHYSICIAN PHYSICIAN PANEL [place] [address] COMBINED COMBINED BLOOD/URI 6 PHYSICIAN PHYSICIAN C ACID S LA S LA STANDARD K0001 REID LOMAS 6 HOME HOME R MEDICAL MEDICAL EQUIPME EQUIPME HOS BED E0260 REID MATHEWS SEMI-ELEC 6 HOME HOME W/ANY MEDICAL MEDICAL TYPE SIDE EQUIPME EQUIPME RAIL W/MATTRSS PHYS G0179 [place] [facility] RE-CERT 6 [place] TRACY MCR-COVR INTERNAL [facility] SRVC RE-CERT PRD COMPREHEN 82382 ZACK DIXON SIVE 6 [facility] METABOLIC INC INC PANEL GLUC BLD 55689 ZACK DIXON GLUC MNTR 6 [facility] DEV INC INC CLEARED FDA SPEC HOME USE BLOOD 37140 ZACK DIXON COUNT 6 [facility] COMPLETE INC INC AUTO&AUTO DIFRNTL WBC URNLS DIP 11181 ZACK DIXON 6 [facility]OS[facility] STICK/TAB INC INC LET REAGENT AUTO MICROSCOP Y AMBULANCE A0429 [facility] SERVICE 6 AMBULANCE AMBULANCE BLS SERVICE SERVICE EMERGENCY TRANSPORT GROUND A0425 [facility] MILEAGE 6 AMBULANCE AMBULANCE PER SERVICE SERVICE STATUTE MILE SBSQ 04775 [facility] NURSING 6 [place] TRACY FACIL INTERNAL CARE/DAY MED NEW PROBLEM 25 MIN SBSQ 69116 [facility] CHAPMAN NURSING 6 [facility] FACIL INTERNAL CARE/DAY MEDI MINOR COMPLJ 15 MIN HOS BED E0260 REID MATHEWS SEMI-ELEC 6 HOME HOME W/ANY MEDICAL MEDICAL TYPE SIDE EQUIPME EQUIPME RAIL W/MATTRSS STANDARD K0001 REID CHAUDHARII 6 HOME HOME R MEDICAL MEDICAL EQUIPME EQUIPME RADEX 28579 SYMPHONY SYMPHONY SPINE 6 MOBILEX MOBILEX CERVICAL 2 OR 3 VIEWS RADEX 68343 SYMPHONY SYMPHONY SPINE 6 MOBILEX MOBILEX THORACIC 2 VIEWS SBSQ [address] [place] [address] INTERNAL CARE/DAY MED NEW PROBLEM 25 MIN STANDARD K0001 REID CHAUDHARIEnma 5 HOME HOME R MEDICAL MEDICAL EQUIPME EQUIPME HOS BED E0260 REID REID SEMI-ELEC 5 HOME HOME W/ANY MEDICAL MEDICAL TYPE SIDE EQUIPME EQUIPME RAIL W/MATTRSS COMPREHEN 45474 ZACK DIXON SIVE 5 [facility] METABOLIC INC INC PANEL CULTURE 69145 ZACK DIXON BACTERIAL 5 [facility] INC INC QUANTTATI VE COLONY COUNT URINE AMB A0427 [facility] SERVICE 5 AMBULANCE AMBULANCE ALS SERVICE SERVICE EMERGENCY TRANSPORT LEVEL 1 GROUND A0425 [facility] 5 AMBULANCE AMBULANCE PER SERVICE SERVICE STATUTE [facility] Z[facility] DIXON IC 5 [facility] PEPTIDE INC INC BLOOD 85923 ZACK DIXON COUNT 5 [facility] COMPLETE INC INC AUTO&AUTO DIFRNTL WBC SUSCEPTIB 35190 ZACK DIXON LTY STDY 5 [facility] ANTIMICRB INC INC IAL MICRO/AGA R DILUTJ URNLS DIP 48046 ZACK DIXON 5 [facility] STICK/TAB INC INC LET REAGENT AUTO MICROSCOP Y RADIOLOGI 48051 ZACK DIXON C EXAM 5 [facility] CHEST 2 INC INC VIEWS FRONTAL&L ATERAL PRESSURIZ 21884 ZACK DIXON ED/NONPRE 5 [facility] SSURIZED INC INC INHALATIO N TREATMENT STANDARD K0001 REIDJOHN CHAUDHARIEnma 5 HOME HOME R MEDICAL MEDICAL EQUIPME EQUIPME HOS BED E0260 REID REID SEMI-ELEC 5 HOME HOME W/ANY MEDICAL MEDICAL TYPE SIDE EQUIPME EQUIPME RAIL W/MATTRSS SBSQ 98566 [facility] 5 CULAR MAT CARE/DAY CONSULTAN 25 TS O MINUTES INITIAL 03956 [facility] C[facility]/DAY CONSULTAN 70 TS O MINUTES ECHO 21376 [facility] 5 MEDICAL JUAN J C R-T 2D SERV W/WO FOUNDATIO M-MODE N REC F-UP/LMTD RADIOLOGI 80660 [facility]I C EXAM 5 MEDICAL MELIDA CHEST 2 IMAGING VIEWS ASS FRONTAL&L ATERAL HOS BED E0260 REID MATHEWS SEMI-ELEC 5 HOME HOME W/ANY MEDICAL MEDICAL TYPE SIDE EQUIPME EQUIPME RAIL W/MATTRSS STANDARD K0001 REID DELGADILLOCHAI 5 HOME HOME R MEDICAL MEDICAL EQUIPME EQUIPME THERAPEUT 50690 ZACK DIXON IC PX 1/> 5 [facility] AREAS INC INC EACH 15 MIN EXERCISES NORMAL A4256 ARRIVA ARRIVA LOW AND 5 MEDICAL MEDICAL HIGH CALIBRATO R SOLUTION/ CHIPS LANCETS A4259 ARRIVA ARRIVA PER BOX 5 MEDICAL MEDICAL OF 100 BLD GLU A4253 ARRIVA ARRIVA TEST/REAG 5 MEDICAL MEDICAL T STRIPS HOME BLD GLU MON- URNLS DIP 28505 ZACK CALDERON 5 [facility] LET RGNT P NON-AUTO W/O MICRSCP THERAPEUT 12157 ZACK DIXON IC PX 1/> 5 [facility] AREAS INC INC EACH 15 MIN EXERCISES HOS BED E0260 REID MATHEWS SEMI-ELEC 5 HOME HOME W/ANY MEDICAL MEDICAL TYPE SIDE EQUIPME EQUIPME RAIL W/MATTRSS STANDARD K0001 REID CHAUDHARII 5 HOME HOME R MEDICAL MEDICAL EQUIPME EQUIPME THERAPEUT 39148 ZACK DIXON IC PX 1/> 5 [facility] AREAS INC INC EACH 15 MIN EXERCISES THERAPEUT 46646 ZACK DIXON IC PX 1/> 5 [facility] AREAS INC INC EACH 15 MIN EXERCISES 25 32905 ZACK CASTELAN 5 [facility] INCLUDES INC INC FRACTIONS IF PERFORMED COLLECTIO 49467 ZACK DIXON N VENOUS 5 [facility] [place] [address] ZACK DIXON THYROID 5 [facility] STIMULATI INC INC NG HORMONE TSH CULTURE 97014 ZACK DIXON BACTERIAL 5 [facility] INC INC QUANTTATI VE COLONY COUNT URINE CULTURE 99029 ZACK DIXON BCT 5 [facility] ISOL&PRSM INC INC PTV ID ISOLATE EA URINE RENAL 58711 ZACK DIXON FUNCTION 5 [facility] PANEL INC INC HEMOGLOBI 10497 ZACK DIXON N 5 [facility] GLYCOSYLA INC INC ALEX A1C BLOOD 65941 ZACK DIXON COUNT 5 [facility] COMPLETE INC INC AUTO&AUTO DIFRNTL WBC SUSCEPTIB 52862 ZACK DIXON LTY STDY 5 [facility] ANTIMICRB INC INC IAL MICRO/AGA R DILUTJ URNLS DIP 03105 ZACK DIXON 5 [facility] STICK/TAB INC INC LET REAGENT AUTO MICROSCOP Y THERAPEUT 86303 ZACK DIXON IC PX 1/> 5 [facility] AREAS INC INC EACH 15 MIN EXERCISES THERAPEUT 57431 ZACK ZACK IC PX 1/> 5 [facility] AREAS INC INC EACH 15 MIN EXERCISES THERAPEUT 08287 ZACK DIXON IC PX 1/> 5 [facility] AREAS INC INC EACH 15 MIN EXERCISES THERAPEUT 45005 ZACK DIXON IC PX 1/> 5 [facility] AREAS INC INC EACH 15 MIN EXERCISES PHYSICAL 01948 ZACKSHANDA DIXON THERAPY 5 [facility] EVALUATIO INC INC N CATH CLCT P9612 ZAKC CALDERON SPECIMEN 5 [facility] PT ALL P PLACES SERVICE CULTURE 45027 ZACKSHANDA DIXON BACTERIAL 5 [facility] INC INC QUANTTATI VE COLONY COUNT URINE CULTURE 35357 ZACK DIXON BCT 5 [facility] ISOL&PRSM INC INC PTV ID ISOLATE EA URINE URNLS DIP 52125 ZACK CALDERON 5 [facility] LET RGNT P NON-AUTO W/O MICRSCP SUSCEPTIB 93268 ZACK DIXON LTY STDY 5 [facility] HOS[facility] [...] TYPE SIDE EQUIPME EQUIPME RAIL W/MATTRSS ONELIA 93185 ZACK CALDERON POST-VOID 5 [facility] RESIDUAL P URINE&/BL ADDER CAP CULTURE 36501 ZACK DIXON BACTERIAL 5 [facility] INC INC QUANTTATI VE COLONY COUNT URINE CULTURE 92254 ZACK DIXON BCT 5 [facility] ISOL&PRSM INC INC PTV ID ISOLATE EA URINE SUSCEPTIB 40953 ZACK DIXON LTY STDY 5 [facility] ANTIMICRB INC INC IAL MICRO/AGA R DILUTJ RADIOLOGI 04196 SYMPHONY SYMPHONY C 5 MOBILEX MOBILEX EXAMINATI ON CHEST SINGLE VIEW FRONTAL RADIOLOGI 60479 SYMPHONY SYMPHONY C 5 MOBILEX MOBILEX EXAMINATI ON CHEST SINGLE VIEW FRONTAL DEBRIDEME 28272 [facility] NT NAIL 5 ARE ANDREZ ANY METHOD 6/> INITIAL 11973 [facility] NURSING 5 ARE ANDREZ FACILITY CARE/DAY 25 MINUTES SBSQ 21411 [facility]URSING 5 [facility] INTERNAL CARE/DAY MED NEW PROBLEM 25 MIN BASIC 05668 COMBINED COMBINED METABOLIC 5 PHYSICIAN PHYSICIAN PANEL S LA S LA CALCIUM TOTAL BLOOD 36624 COMBINED COMBINED COUNT 5 PHYSICIAN PHYSICIAN COMPLETE S LA S LA AUTO&[place] [address] LIZZ BEINEKE ABDOMINAL 5 MEDICAL KAY REAL IMAGING TIME ASS W/[place] [address] LIZZ SHERI ABDOMEN & 5 MEDICAL MELIDA PELVIS IMAGING W/O ASS CONTRAST MATERIAL [facility]IOLOGI [facility] C 5 MEDICAL EXAMINATI IMAGING ON CHEST ASS SINGLE VIEW FRONTAL CRITICAL 26054 ZACK DIXON CARE 5 [facility] ED P P PATIENT INIT 30-74 MIN ECG 18595 ZACK MCLEAN ROUTINE 5 [facility] W/LEAST P 12 LDS I&R ONLY RADEX 35880 [place] FRANKY SPINE 5 MEDICAL KAY CERVICAL IMAGING 4 OR 5 ASS VIEWS RADEX 87957 [place] [facility] MAST[facility]IDS 5 MEDICAL KAY COMPL IMAGING MINIMUM 3 ASS VIEWS AR SIDE SPRING-PO A4258 ARRIVA ARRIVA WERED 5 MEDICAL PERINATAL NURSE FOR LANCET 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 A4259 ARRIVA ARRIVA PER BOX 5 MEDICAL MEDICAL OF 100 NORMAL A4256 ARRIVA ARRIVA LOW AND 5 MEDICAL MEDICAL HIGH CALIBRATO R SOLUTION/ CHIPS BLD GLU A4253 ARRIVA ARRIVA TEST/REAG 5 MEDICAL MEDICAL T STRIPS HOME BLD GLU MON-50 COMPREHEN 53477 COMBINED COMBINED SIVE 5 PHYSICIAN PHYSICIAN METABOLIC S LA S LA PANEL COLLECTIO 96180 ZACK DIXON N VENOUS 5 [facility] BLOOD INC INC VENIPUNCT URE RENAL 12067 ZACK DIXON FUNCTION 5 [facility] PANEL INC INC INJECTION J0897 ZACK DIXON 5 [facility] DENOSUMAB INC INC 1 MG THERAPEUT 07645 ZACK DIXON IC 5 [facility] PROPHYLAC INC INC TIC/DX INJECTION SUBQ/IM COLLECTIO 55197 ZACK DIXON N VENOUS 4 [facility] BLOOD INC INC VENIPUNCT URE CREATININ 84049 ZACK DIXON E OTHER 4 [facility] SOURCE INC INC DXA BONE 95285 ZACK DIXON DENSITY 4 [facility] STUDY 1/> INC INC SITES AXIAL SKEL CULTURE 86712 ZACK DIXON BACTERIAL 4 [facility] INC INC QUANTTATI VE COLONY COUNT URINE CULTURE 03208 ZACK DIXON BCT 4 [facility] ISOL&PRSM INC INC PTV ID ISOLATE EA URINE 25 35239 ZACK DIXON HYDROXY 4 [facility] INCLUDES [place] [address] ZACK DIXON PARATHORM 4 [facility] ONE INC INC RENAL 16487 ZACK DIXON FUNCTION 4 [facility] PANEL INC INC PROTEIN 97983 ZACK DIXON XCPT 4 [facility] REFRACTOM INC INC ETRY SERUM PLASMA/WH L BLD BLOOD 45085 ZACK DIXON COUNT 4 [facility] COMPLETE INC INC AUTO&AUTO DIFRNTL WBC SUSCEPTIB 85165 ZACK DIXON LTY STDY 4 [facility] ANTIMICRB INC INC IAL MICRO/AGA R DILUTJ URNLS DIP 38629 ZACK DIXON 4 [facility] STICK/TAB INC INC LET REAGENT AUTO MICROSCOP Y COMPREHEN 25306 COMBINED COMBINED SIVE 4 PHYSICIAN PHYSICIAN METABOLIC S LA S LA PANEL CREATINE 43870 ZACK ZACK KINASE MB 4 [facility] FRACTION INC INC ONLY CREATINE 89371 ZACK DIXON KINASE 4 [facility] [place] [address] ZACK DIXON TROPONIN 4 [facility] QUANTITAT INC INC MARIBEL BLOOD 79608 ZACK DIXON COUNT 4 [facility] COMPLETE INC INC AUTO&AUTO DIFRNTL WBC URNLS DIP 65994 ZACK DIXON 4 [facility] STICK/TAB INC INC LET REAGENT AUTO MICROSCOP Y RADIOLOGI 52847 ZACK DIXON C EXAM 4 [facility] CHEST 2 INC INC VIEWS FRONTAL&L ATERAL PRESSURIZ 18565 ZACK DIXON ED/NONPRE 4 [facility] SSURIZED INC INC INHALATIO N TREATMENT COMPREHEN 47804 ZACK DIXON SIVE 4 [facility] METABOLIC INC INC PANEL COLLECTIO 04541 ZACK DIXON N VENOUS 4 [facility] BLOOD INC INC VENIPUNCT URE RENAL 26303 ZACK DIXON FUNCTION 4 [facility] PANEL INC INC BLOOD 71362 ZACK DIXON COUNT 4 [facility] COMPLETE INC INC AUTO&AUTO DIFRNTL WBC 25 87371 ZACK DIXON HYDROXY 4 [facility] INCLUDES INC INC FRACTIONS IF PERFORMED THERAPEUT 15762 ZACK DIXON IC 4 [facility] PROPHYLAC INC INC TIC/DX INJECTION SUBQ/IM INJECTION J0897 ZACK ELLIOTTON 4 [facility] DENOSUMAB INC INC 1 MG BASIC 79122 COMBINED COMBINED METABOLIC 4 PHYSICIAN PHYSICIAN PANEL S LA S LA CALCIUM TOTAL COMPREHEN 87611 COMBINED COMBINED SIVE 4 PHYSICIAN PHYSICIAN METABOLIC S LA S LA PANEL COLLECTIO 22407 ZACK DIXON N VENOUS 4 [facility] BLOOD INC INC VENIPUNCT URE BASIC 02061 ZACK DIXON METABOLIC 4 [facility] PANEL INC INC CALCIUM TOTAL THERAPEUT 09658 ZACK DIXON IC 4 [facility] PROPHYLAC INC INC TIC/DX INJECTION SUBQ/IM INJECTION J0897 ZACK DIXON 4 [facility] DENOSUMAB INC INC 1 MG ARTHROCEN 15899 [facility] TESIS 3 PHYSICIAN JAM ASPIR&/IN S GROUP J MAJOR JT/BURSA W/O US INJECTION 28449 [facility] 1 TENDON 3 PHYSICIAN PHYSICIAN S GROUP S GROUP SHEATH/LI GAMENT APONEUROS IS INJ J0702 [facility] BETAMETHA 3 PHYSICIAN TONI SONE S GROUP ACETATE & PHOSPHATE 3 MG BASIC 05228 COMBINED COMBINED METABOLIC 3 PHYSICIAN PHYSICIAN PANEL S LA S LA CALCIUM TOTAL ALBUMIN 42633 ZACK DIXON URINE 3 [facility] MICROALBU INC INC MIN QUANTIATI VE 25 11628 ZACK DIXON HYDROXY 3 [facility] INCLUDES INC [place] [address] ZACK DIXON PARATHORM 3 [facility] ONE INC INC DXA BONE 15409 [facility] 3 MEDICAL MELIDA STUDY 1/> IMAGING SITES ASS AXIAL SKEL COLLECTIO 98002 ZACK DIXON N VENOUS 3 [facility] BLOOD INC INC VENIPUNCT URE RENAL 47657 ZACK DIXON FUNCTION 3 [facility] PANEL INC INC BLOOD 76592 ZACK DIXON COUNT 3 [facility] COMPLETE INC INC AUTO&AUTO DIFRNTL WBC URNLS DIP 38113 ZACKSHANDA DIXON 3 [facility] STICK/TAB INC INC LET REAGENT AUTO MICROSCOP Y RADIOLOGI 04733 [place] SHERI C EXAM 3 MEDICAL MELIDA CHEST 2 IMAGING VIEWS [place] FRONTAL&[place] [address] ZACK DIXON STREPTOCO 3 [facility] CCUS INC INC GROUP A IAADI 29528 ZACK DIXON INFLUENZA 3 [facility] B VIRUS INC INC IAADI 31696 ZACK DIXON INFFLUENZ 3 [facility] A A VIRUS INC INC CUL BACT 96415 ZACK DIXON XCPT 3 [facility] URINE INC INC BLOOD/STO OL AEROBIC ISOL BASIC 22434 COMBINED COMBINED METABOLIC 3 PHYSICIAN PHYSICIAN PANEL [place] [address] COMBINED COMBINED BLOOD/URI 3 PHYSICIAN PHYSICIAN C ACID S LA S LA CREATINE 36402 ZACK DIXON KINASE 3 [facility] TOTAL INC INC FIBRIN 71958 ZACK DIXON DGRADJ 3 [facility] PRODUCTS INC INC D-DIMER QUAL/SEMI BARB TECHNETIU A9540 ZACK Flanagan TC-99M 3 [facility] MAA DX INC INC STDY DOSE UP TO 10 MCI THER 60745 ZACK DIXON PROPH/DX 3 [facility] NJX IV INC INC PUSH SINGLE/1S T SBST/DRUG ECG 36206 ZACK DIXON ROUTINE 3 [facility] ECG INC INC W/LEAST 12 LDS TRCG ONLY W/O I&R COMPREHEN 96018 ZACK DIXON SIVE 3 [facility] METABOLIC INC INC PANEL CREATINE 18641 ZACK DIXON KINASE MB 3 [facility] FRACTION INC INC ONLY TECHNETIU A9567 ZACK Flanagan TC-99M 3 [facility] PENTETATE INC INC DX AEROSOL TO 75 MCI RADIOLOGI 13286 ZACK DIXON C 3 [facility] EXAMINATI INC INC ON CHEST SINGLE VIEW FRONTAL ECG 03563 EMEKA LIRA ROUTINE 3 EMERGENCY ECG SERVICES W/LEAST 12 LDS I&R ONLY RHYTHM 12172 ZACK DIXON ECG 1-3 3 [facility] LEADS INC INC TRACING ONLY W/O I&[place] [address] ZACK DIXON TROPONIN 3 [facility] QUANTITAT INC INC MARIBEL BLOOD 84062 ZACK DIXON COUNT 3 [facility] COMPLETE INC INC AUTO&AUTO DIFRNTL WBC RADIOLOGI 95144 ZACK DIXON C EXAM 3 [facility] CHEST 2 INC INC VIEWS FRONTAL&L ATERAL PULMONARY 56147 ZACK DIXON 3 [facility] VENTILATI INC INC ON & PERFUSION IMAGING RENAL 17237 ZACK DIXON FUNCTION 3 [facility] PANEL INC INC BLOOD 48510 ZACK DIXON COUNT 3 [facility] COMPLETE INC INC AUTO&AUTO DIFRNTL WBC COLLECTIO 30036 ZACK DIXON N VENOUS 3 [facility] BLOOD INC INC VENIPUNCT URE INJECTION J0897 ZACK DIXON 3 [facility] DENOSUMAB INC INC 1 MG THERAPEUT 98855 ZACK DIXON IC 3 [facility] PROPHYLAC INC INC TIC/DX INJECTION SUBQ/IM APPL 21931 ZACK DIXON MODALITY 3 [facility] 1/> AREAS INC INC 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 59764 ZACK DIXON IC PX 1/> 3 [facility] AREAS INC INC EACH 15 MIN EXERCISES APPLICATI 88365 ZACK DIXON ON 3 [facility] MODALITY INC INC 1/> AREAS HOT/COLD PACKS E-STIM G0283 ZACK DIXON 1/> AREAS 3 [facility] O[facility]AN INC INC WND CARE PART TX PLAN E-STIM G0283 ZACK DIXON 1/> AREAS 3 [facility] INC INC WND CARE PART TX PLAN APPLICATI 24011 ZACK DIXON ON 3 [facility] MODALITY INC INC 1/> AREAS HOT/COLD PACKS THERAPEUT 22298 ZACK DIXON IC PX 1/> 3 [facility] AREAS INC INC EACH 15 MIN EXERCISES APPL 30821 ZACK DIXON MODALITY 3 [facility] 1/> AREAS INC INC IONTOPHOR ESIS EA 15 MIN APPL 99880 ZACK DIXON MODALITY 3 [facility] 1/> AREAS INC INC 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 65256 ZACK DIXON IC PX 1/> 3 [facility] AREAS INC INC EACH 15 MIN EXERCISES E-STIM G0283 ZACK DIXON 1/> AREAS 3 [facility] INC INC WND CARE PART TX PLAN APPLICATI 94744 ZACK DIXON ON 3 [facility]AL[facility] INC INC 1/> AREAS HOT/COLD PACKS APPLICATI 22916 ZACK DIXON ON 3 [facility] MODALITY INC INC 1/> AREAS HOT/COLD PACKS E-STIM G0283 ZACK DIXON 1/> AREAS 3 [facility] O[facility] INC INC WND CARE PART TX PLAN THERAPEUT 08350 ZACK DIXON IC PX 1/> 3 [facility] AREAS INC INC EACH 15 MIN EXERCISES APPL 67868 ZACK DIXON MODALITY 3 [facility] 1/> AREAS INC INC 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 28825 ZACK DIXON IC PX 1/> 3 [facility] AREAS INC INC EACH 15 MIN EXERCISES E-STIM G0283 ZACK DIXON 1/> AREAS 3 [facility] O[facility] INC INC WND CARE PART TX PLAN E-STIM G0283 ZACK DIXON 1/> AREAS 3 [facility] INC INC WND CARE PART TX PLAN APPLICATI 47988 ZACK DIXON ON 3 [facility] MODALITY INC INC 1/> AREAS HOT/COLD PACKS CULTURE 95781 COMBINED COMBINED BACTERIAL 3 PHYSICIAN PHYSICIAN S LA S LA QUANTTATI VE COLONY COUNT URINE THERAPEUT 52451 ZACK DIXON IC PX 1/> 3 [facility] AREAS INC INC EACH 15 MIN EXERCISES APPL 22700 ZACK DIXON MODALITY 3 [facility] 1/> AREAS INC INC IONTOPHOR ESIS EA 15 MIN APPL 08183 ZACK DIXON MODALITY 3 [facility] 1/> AREAS INC INC 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 31909 ZACK DIXON IC PX 1/> 3 [facility] AREAS INC INC EACH 15 MIN EXERCISES APPLICATI 52878 ZACK DIXON ON 3 [facility] MODALITY INC INC 1/> AREAS HOT/COLD PACKS E-STIM G0283 ZACK DIXON 1/> AREAS 3 [facility] OTH THAN INC INC WND CARE PART TX PLAN THERAPEUT 67312 ZACK DIXON IC PX 1/> 3 [facility] AREAS INC INC EACH 15 MIN EXERCISES THERAPEUT 72823 ZACK DIXON IC PX 1/> 3 [facility] AREAS INC INC EACH 15 MIN EXERCISES APPL 14295 ZACK DIXON MODALITY 3 [facility] 1/> AREAS INC INC 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 G0283 ZACK DIXON 1/> AREAS 3 [facility] OTH THAN INC INC WND CARE PART TX PLAN APPL 25876 ZACK DIXON MODALITY 3 [facility] 1/> AREAS INC INC ULTRASOUN D EA 15 MIN E-STIM G0283 ZACK DIXON 1/> AREAS 3 [facility] OTH THAN INC INC WND CARE PART TX PLAN APPLICATI 57295 ZACK DIXON ON 3 [facility] MODALITY INC INC 1/> AREAS HOT/COLD PACKS APPL 68366 ZACK DIXON MODALITY 3 [facility] 1/> AREAS INC INC 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 68315 ZACK DIXON IC PX 1/> 3 [facility] AREAS INC INC EACH 15 MIN EXERCISES THERAPEUT 89572 ZACK DIXON IC PX 1/> 3 [facility] AREAS INC INC EACH 15 MIN EXERCISES APPL 13944 ZACK ZACK MODALITY 3 [facility] 1/> AREAS INC INC IONTOPHOR ESIS EA 15 MIN APPLICATI 99233 ZACK DIXON ON 3 [facility] MODALITY INC INC 1/> AREAS HOT/COLD PACKS E-STIM G0283 ZACK ZACK 1/> AREAS 3 [facility] OTH THAN INC INC WND CARE PART TX PLAN E-STIM G0283 ZACK ZACK 1/> AREAS 3 [facility] OTH THAN INC INC WND CARE PART TX PLAN APPLICATI 21226 ZACKSHANDA DIXON ON 3 [facility] MODALITY INC INC 1/> AREAS HOT/COLD PACKS APPL 29177 ZACK DIXON MODALITY 3 [facility] 1/> AREAS INC INC ULTRASOUN D EA 15 MIN APPL 45083 [facility] AREAS INC INC 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 58655 ZACK ZACK IC PX 1/> [facility] AREAS INC INC EACH 15 MIN EXERCISES THERAPEUT 26050 ZACK ZACK IC PX 1/> [facility] AREAS INC INC EACH 15 MIN EXERCISES APPL 98848 ZACK DIXON MODALITY 3 [facility]/> AREAS INC INC IONTOPHOR ESIS EA 15 MIN APPL 06657 [facility]ACK DIXON MODALITY [facility]/> AREAS INC INC ULTRASOUN D EA 15 MIN E-STIM G0283 ZACK DIXON 1/> AREAS [facility] OTH THAN INC INC WND CARE PART TX PLAN E-STIM G0283 ZACK DIXON 1/> AREAS 3 [facility] OTH THAN INC INC WND CARE PART TX PLAN APPL 17652 ZACK DIXON MODALITY 3 [facility]/> AREAS INC INC ULTRASOUN D EA 15 MIN CULTURE 87312 [facility]ACK [facility] BACTERIAL 3 [facility] INC INC QUANTTATI VE COLONY COUNT URINE CULTURE 61326 [facility] BCT 3 [facility] ISOL&PRSM INC INC PTV ID ISOLATE EA URINE COLLECTIO 50061 [facility]ACK [facility] N VENOUS [facility] [place] [address] ZACK D[facility] NEPHELOME 3 [facility] TRY EACH INC INC ANALYTE YANELY THERAPEUT 11624 ZACK DIXON IC PX 1/> [facility] AREAS INC INC EACH 15 MIN EXERCISES 25 75881 ZACK DIXON HYDROXY 3 [facility] INCLUDES INC [place] [address] ZACK DIXON PARATHORM 3 [facility] ONE INC INC PROTEIN 68233 ZACK DIX[facility] ELECTROPH 3 [facility] ORETIC INC INC FRACTJ&QU ANTJ SERUM APPL 39618 ZACK DIXON MODALITY [facility]/> AREAS INC INC IONTOPHOR ESIS EA 15 MIN RENAL 99310 [facility] FUNCTION 3 [facility] PANEL INC INC BLOOD 63584 ZACK D[facility] COUNT 3 [facility] COMPLETE INC INC AUTO&AUTO DIFRNTL WBC SUSCEPTIB 00156 ZACK DIXON LTY STDY 3 [facility] ANTIMICRB INC INC IAL MICRO/AGA R DILUTJ URNLS DIP 03145 [facility]ON [facility] STICK/TAB INC INC LET REAGENT AUTO MICROSCOP Y APPL 96057 ZACK DIXON MODALITY 3 [facility]/> AREAS INC INC 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 71278 ZACK ELLIOTTON IC PX 1/> 3 [facility] AREAS INC INC EACH 15 MIN EXERCISES APPLICATI 98047 ZACK DIXON ON 3 [facility] MODALITY INC INC 1/> AREAS HOT/COLD PACKS E-STIM G0283 ZACK DIXON 1/> AREAS [facility] OTH THAN INC INC WND CARE PART TX PLAN E-STIM G0283 ZACK DIXON 1/> AREAS 3 [facility] OTH THAN INC INC WND CARE PART TX PLAN APPLICATI 30372 ZACK DIXON ON 3 [facility] MODALITY INC INC 1/> AREAS HOT/COLD PACKS APPL 19907 ZACK DIXON MODALITY 3 [facility]/> AREAS INC INC ULTRASOUN D EA 15 MIN THERAPEUT 26158 ZACK DIXON IC PX 1/> 3 [facility] AREAS INC INC EACH 15 MIN EXERCISES APPL 83066 ZACK DIXON MODALITY 3 [facility]/> AREAS INC INC IONTOPHOR ESIS EA 15 MIN APPL 73221 ZACK DIXON MODALITY 3 [facility]/> AREAS INC INC 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 32924 ZACK DIXON IC PX 1/> 3 [facility] AREAS INC INC EACH 15 MIN EXERCISES APPL 78789 ZACK DIXON MODALITY 3 [facility]/> AREAS INC INC ULTRASOUN D EA 15 MIN E-STIM G0283 ZACK DIXON 1/> AREAS 3 [facility] OTH THAN INC INC WND CARE PART TX PLAN E-STIM G0283 ZACK DIXON 1/> AREAS 3 [facility] OTH THAN INC INC WND CARE PART TX PLAN APPL 51661 ZACK DIXON MODALITY 3 [facility]/> AREAS INC INC ULTRASOUN D EA 15 MIN APPLICATI 73786 ZACK DIXON ON 3 [facility] MODALITY INC INC 1/> AREAS HOT/COLD PACKS THERAPEUT 30642 ZACK DIXON IC PX 1/> 3 [facility] AREAS INC INC EACH 15 MIN EXERCISES APPL 34628 ZACK DIXON MODALITY 3 [facility] 1/> AREAS INC INC IONTOPHOR ESIS EA 15 MIN APPL 79571 ZACK DIXON MODALITY 3 [facility] 1/> AREAS INC INC 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 01526 ZACK DIXON IC PX 1/> 3 [facility] AREAS INC INC EACH 15 MIN EXERCISES APPL 21049 ZACK DIXON MODALITY 3 [facility] 1/> AREAS INC INC ULTRASOUN D EA 15 MIN BASIC 09566 COMBINED COMBINED METABOLIC 3 PHYSICIAN PHYSICIAN PANEL S LA S LA CALCIUM TOTAL APPL 55345 ZACK DIXON MODALITY 3 [facility]/> AREAS INC INC ULTRASOUN D EA 15 MIN E-STIM G0283 ZACK DIXON 1/> AREAS 3 [facility] OTH THAN INC INC WND CARE PART TX PLAN THERAPEUT 56576 ZACK DIXON IC PX 1/> 3 [facility] AREAS INC INC EACH 15 MIN EXERCISES APPL 21980 ZACK DIXON MODALITY 3 [facility] 1/> AREAS INC INC IONTOPHOR ESIS EA 15 MIN APPL 58363 ZACK DIXON MODALITY 3 [facility]/> AREAS INC INC 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 18833 ZACK DIXON IC PX 1/> 3 [facility] AREAS INC INC EACH 15 MIN EXERCISES E-STIM G0283 ZACK DIXON 1/> AREAS 3 [facility] OTH THAN INC INC WND CARE PART TX PLAN APPL 43042 ZACK DIXON MODALITY 3 [facility]/> AREAS INC INC ULTRASOUN D EA 15 MIN APPL 47223 ZACK DIXON MODALITY 3 [facility]/> AREAS INC INC ULTRASOUN D EA 15 MIN APPLICATI 92505 ZACK DIXON ON 3 [facility] MODALITY INC INC 1/> AREAS HOT/COLD PACKS E-STIM G0283 ZACK DIXON 1/> AREAS 3 [facility] OTH THAN INC INC WND CARE PART TX PLAN THERAPEUT 84573 ZACK DIXON IC PX 1/> 3 [facility] AREAS INC INC EACH 15 MIN EXERCISES THERAPEUT 94074 ZACK DIXON IC PX 1/> 3 [facility] AREAS INC INC EACH 15 MIN EXERCISES E-STIM G0283 ZACK DIXON 1/> AREAS 3 [facility] OTH THAN INC INC WND CARE PART TX PLAN APPL 80000 ZACK DIXON MODALITY 3 [facility] 1/> AREAS INC INC ULTRASOUN D EA 15 MIN E-STIM G0283 ZACK DIXON 1/> AREAS 3 [facility] OTH THAN INC INC WND CARE PART TX PLAN THERAPEUT 46026 ZACK DIXON IC PX 1/> 3 [facility] AREAS INC INC EACH 15 MIN EXERCISES APPL 67876 ZACK DIXON MODALITY 3 [facility] 1/> AREAS INC INC 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 69419 ZACK DIXON IC PX 1/> 3 [facility] AREAS INC INC EACH 15 MIN EXERCISES E-STIM G0283 ZACK DIXON 1/> AREAS 3 [facility] OTH THAN INC INC WND CARE PART TX PLAN APPLICATI 87406 ZACK DIXON ON 3 [facility] MODALITY INC INC 1/> AREAS HOT/COLD PACKS APPL 72515 ZACK DIXON MODALITY 3 [facility]/> AREAS INC INC ULTRASOUN D EA 15 MIN THERAPEUT 20030 ZACK DIXON IC PX 1/> 3 [facility] AREAS INC INC EACH 15 MIN EXERCISES APPL 22840 ZACK DIXON MODALITY 3 [facility]/> AREAS INC INC 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 G0283 ZACK DIXON 1/> AREAS 3 [facility] OTH THAN INC INC WND CARE PART TX PLAN E-STIM G0283 AZCK DIXON 1/> AREAS 3 [facility] OTH THAN INC INC WND CARE PART TX PLAN THERAPEUT 40814 ZACK DIXON IC PX 1/> 3 [facility] AREAS INC INC EACH 15 MIN EXERCISES APPL 98550 ZACK DIXON MODALITY 3 [facility] 1/> AREAS INC INC IONTOPHOR ESIS EA 15 MIN APPLICATI 75501 ZACK DIXON ON 3 [facility] MODALITY INC INC 1/> AREAS HOT/COLD PACKS APPL 94796 ZACK DIXON MODALITY 3 [facility]/> AREAS INC INC ULTRASOUN D EA 15 MIN APPL 94708 ZACK DIXON MODALITY 3 [facility] 1/> AREAS INC INC ULTRASOUN D EA 15 MIN APPLICATI 39512 ZACK DIXON ON 3 [facility] MODALITY INC INC 1/> AREAS HOT/COLD PACKS APPL 52045 ZACK DIXON MODALITY 3 [facility] 1/> AREAS INC INC 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 G0283 ZACK DIXON 1/> AREAS 3 [facility] OTH THAN INC INC WND CARE PART TX PLAN E-STIM G0283 ZACK DIXON 1/> AREAS 3 [facility] OTH THAN INC INC WND CARE PART TX PLAN APPL 46433 ZACK DIXON MODALITY 3 [facility] 1/> AREAS INC INC 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 52953 ZACK DIXON IC PX 1/> 3 [facility] AREAS INC INC EACH 15 MIN EXERCISES APPL 03090 ZACK DIXON MODALITY 3 [facility]/> AREAS INC INC ULTRASOUN D EA 15 MIN APPLICATI 53182 ZACK DIXON ON 3 [facility] MODALITY INC INC 1/> AREAS HOT/COLD PACKS APPLICATI 58513 ZACK DIXON ON 3 [facility] MODALITY INC INC 1/> AREAS HOT/COLD PACKS APPL 82799 ZACK DIXON MODALITY 3 [facility]/> AREAS INC INC ULTRASOUN D EA 15 MIN THERAPEUT 60709 ZACK DIXON IC PX 1/> 3 [facility] AREAS INC INC EACH 15 MIN EXERCISES APPL 72869 ZACK DIXON MODALITY 3 [facility] 1/> AREAS INC INC 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 G0283 ZACK DIXON 1/> AREAS 3 [facility] OTH THAN INC INC WND CARE PART TX PLAN APPLICATI 31765 ZACK DIXON ON 3 [facility] MODALITY INC INC 1/> AREAS HOT/COLD PACKS APPL 40534 ZACK ZACK MODALITY 3 [facility] 1/> AREAS INC INC 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 65834 ZACKSHANDA DIXON IC PX 1/> 3 [facility] AREAS INC INC EACH 15 MIN EXERCISES PHYSICAL 50337 ZACK DIXON THERAPY 3 [facility] EVALUATIO INC INC N APPL 21092 ZACK DIXON MODALITY 3 [facility] 1/> AREAS INC INC ULTRASOUN D EA 15 MIN RADEX HIP 11509 [facility] 3 MEDICAL MELIDA UNILATERA IMAGING L ASS COMPLETE MINIMUM 2 VIEWS BASIC 64777 COMBINED COMBINED METABOLIC 3 PHYSICIAN PHYSICIAN PANEL [place] [address] COMBINED COMBINED BLOOD/URI 3 PHYSICIAN PHYSICIAN C ACID S LA S LA GLUC BLD 80314 ZACK DIXON GLUC MNTR 2 [facility] DEV INC INC CLEARED FDA SPEC HOME USE BLOOD 56978 ZACK DIXON COUNT 2 [facility] COMPLETE INC INC AUTO&AUTO DIFRNTL WBC BASIC 62611 ZACK DIXON METABOLIC 2 [facility] PANEL INC INC [facility] G0378 [facility]ACK DIX[facility] OBSERVATI 2 [facility] ON INC INC SERVICE PER HOUR COLLECTIO 12403 ZACK DIXON N VENOUS 2 [facility] BLOOD INC INC VENIPUNCT URE COLLECTIO 11552 ZACK DIXON N VENOUS 2 [facility] BLOOD INC INC VENIPUNCT URE CREATINE 04710 ZACK DIXON KINASE MB 2 [facility] FRACTION INC INC ONLY TECHNETIU A9567 ZACK Flanagan TC-99M 2 [facility] PENTETATE INC INC DX AEROSOL TO [facility] G0378 ZACK DIXON OBSERVATI 2 [facility] ON INC INC SERVICE PER HOUR TECHNETIU A9540 ZACK Flanagan TC-99M 2 [facility] MAA DX INC INC STDY DOSE UP TO 10 MCI CREATINE 48777 ZACK DIXON KINASE 2 [facility] TOTAL INC INC BASIC 56552 ZACK DIXON METABOLIC 2 [facility] [place] [address] ZACK DIXON TROPONIN 2 [facility] QUANTITAT INC INC MARIBEL GLUC BLD 79621 ZACK DIXON GLUC MNTR 2 [facility] DEV INC INC CLEARED FDA SPEC HOME USE BLOOD 62219 ZACK DIXON COUNT 2 [facility] COMPLETE INC INC AUTO&AUTO DIFRNTL WBC NONINVASI 65557 ZACK DIXON VE 2 [facility] EAR/PULSE INC INC OXIMETRY SINGLE DETER ECHO 22898 [facility] T[facility] R-T 2 DINA MORA 2D CARDIOLOG W/WOM-MOD Y CLINIC E COMPL SPEC&COLR D PULMONARY 94334 [place] [facility] 2 MEDICAL MELIDA VENTILATI IMAGING ON & ASS PERFUSION IMAGING RADIOLOGI 43979 [place] C EXAM 2 MEDICAL MEL[facility] CHEST 2 IMAGING VIEWS ASS FRONTAL&[place] [address] ZACK DIXNO TROPONIN 2 [facility] QUANTITAT INC INC MARIBEL NATRIURET 08855 ZACK DIXON IC 2 [facility] PEPTIDE INC INC GLUC BLD 07271 ZACK DIXON GLUC MNTR 2 [facility] DEV INC INC CLEARED FDA SPEC HOME USE CULTURE 93346 ZACKSHANDA DIXON BACTERIAL 2 [facility] BLOOD INC INC AEROBIC W/ID ISOLATES URNLS DIP 04485 ZACK DIXON 2 [facility] STICK/TAB INC INC LET REAGENT AUTO MICROSCOP Y BLOOD 79174 ZACK ZACK COUNT 2 [facility] COMPLETE INC INC AUTO&AUTO DIFRNTL WBC BASIC 82150 ZACK DIXON METABOLIC 2 [facility] PANEL INC INC CALCIUM TOTAL FIBRIN 99286 ZACK DIXON DGRADJ 2 [facility] PRODUCTS INC INC D-DIMER QUAL/SEMI BARB CREATINE 19711 ZACK ZACK KINASE 2 [facility] TOTAL INC INC THERAPEUT 75067 ZACK ZACK IC 2 [facility] PROPHYLAC INC INC TIC/DX INJECTION SUBQ/IM ECG 12028 ZACK ELLIOTTON ROUTINE 2 [facility] ECG INC INC W/LEAST 12 LDS TRCG ONLY [facility] G0378 ZACK ELLIOTTON OBSERVATI 2 [facility] ON INC INC SERVICE PER HOUR CREATINE 19660 ZACK ZACK KINASE MB 2 [facility] FRACTION INC INC ONLY ECG 86048 ZACK VINAY ROUTINE 2 [facility] W/LEAST P 12 LDS I&R ONLY COLLECTIO 49110 AZCK DIXON N VENOUS 2 [facility] BLOOD INC INC VENIPUNCT URE BASIC 50325 ZACK DIXON METABOLIC 2 [facility] PANEL INC INC CALCIUM TOTAL BLOOD 89200 ZACK DIXON COUNT 2 [facility] COMPLETE INC INC AUTO&AUTO DIFRNTL WBC INJECTION J0897 ZACK ELLIOTTON 2 [facility] DENOSUMAB INC INC 1 MG THERAPEUT 37102 ZACK DIXON IC 2 [facility] PROPHYLAC INC INC TIC/DX INJECTION SUBQ/IM 25 08541 ZACK DIXON HYDROXY 2 [facility] INCLUDES INC [place] [address] ZACK DIXON PARATHORM 2 [facility] ONE INC INC COLLECTIO 89124 ZACK DIXON N VENOUS 2 [facility] BLOOD INC INC VENIPUNCT URE CREATININ 59074 ZACK DIXON E OTHER 2 [facility] SOURCE INC INC DXA BONE 40939 [place] [facility] DENSITY 2 MEDICAL MELIDA STUDY 1/> IMAGING SITES ASS AXIAL SKEL RENAL 41603 ZACK DIXON FUNCTION 2 [facility] PANEL INC INC PROTEIN 59394 ZACK DIXON XCPT 2 [facility] REFRACTOM INC INC ETRY SERUM PLASMA/WH L BLD BLOOD 04925 ZACK DIXON COUNT 2 [facility] COMPLETE INC INC AUTO&AUTO DIFRNTL WBC URNLS DIP 97619 ZACK DIXON 2 [facility] [...] EQUIPME EQUIPME ARWAY PRESSURE DEVICE CV STRS 38203 ZACK ZAPATA TST 2 [facility] XERS&/OR HOSPITAL RX CONT P ECG I&R ONLY MYOCARDIA 80072 [facility] SPECT 2 [facility] MULTIPLE CARDIOLOG STUDIES Y CLINIC CV STRS 54666 [facility] TST 2 PHYSICIAN XERS&/OR S GROUP RX CONT ECG W/O I&R POLYSOM 88503 ZACK DIXON 6/>YRS 2 [facility] SLEEP INC INC W/CPAP 4/> ADDL HARSHIL ATTND SUSCEPTIB 83630 ZACK DIXON LTY STDY 2 [facility] ANTIMICRB INC INC IAL MICRO/AGA R DILUTJ CULTURE 40900 ZACK DIXON BACTERIAL 2 [facility] INC INC QUANTTATI VE COLONY COUNT URINE CULTURE 46813 ZACK DIXON BCT 2 [facility] ISOL&PRSM INC INC PTV ID ISOLATE EA URINE PROTEIN 37541 ZACK DIXON XCPT 2 [facility] REFRACTOM INC INC ETRY SERUM PLASMA/WH L BLD BLOOD 36753 ZACK DIXON COUNT 2 [facility] COMPLETE INC INC AUTO&AUTO DIFRNTL WBC URNLS DIP 03452 ZACK DIXON 2 [facility] STICK/TAB INC INC LET REAGENT AUTO MICROSCOP Y RENAL 95108 ZACK DIXON FUNCTION 2 [facility] PANEL INC INC 25 22576 ZACK DIXON HYDROXY 2 [facility] INCLUDES INC [place] [address] ZACK DIXON PARATHORM 2 [facility] ONE INC INC COLLECTIO 25534 ZACK DIXON N VENOUS 2 [facility] BLOOD INC INC VENIPUNCT URE CREATININ 97132 ZACK DIXON E OTHER 2 [facility] SOURCE INC INC BLD GLU A4253 REID MATHEWS TEST/REAG 2 HOME HOME T [facility] BLD EQUIPME EQUIPME GLU MON-50 LANCETS A4259 REID GLASSRELL PER BOX 2 HOME HOME OF 100 MEDICAL MEDICAL EQUIPME EQUIPME POLYSOM 50357 ESTIVEN JEAN-BAPTISTE 6/>YRS 2 [facility] LEIGHT[facility] SLEEP 4/> ADDL HARSHIL ATTND POLYSOM 31672 ZACK DIXON 6/>YRS 2 [facility] SLEEP 4/> INC INC ADDL HARSHIL ATTND CREATINE 61285 ZACK DIXON KINASE MB 2 [facility] FRACTION INC INC ONLY RADEX 00257 [place] [facility] SPINE 2 MEDICAL MELIDA THORACIC IMAGING 3 VIEWS ASS RADEX 52378 [place] [facility] SPINE 2 MEDICAL MELIDA LUMBOSACR IMAGING AL ASS MINIMUM 4 VIEWS ECG 35253 EMEKA ALFORD ROUTINE 2 EMERGENCY III NANCY ECG SERVICES W/LEAST 12 LDS I&[place] [address] ZACK DIXON TROPONIN 2 [facility] QUANTITAT INC INC MARIBEL BLOOD 70073 ZACK DIXON COUNT 2 [facility] COMPLETE INC INC AUTO&AUTO DIFRNTL WBC URNLS DIP 96962 ZACK DIXON 2 [facility] STICK/TAB INC INC LET REAGENT AUTO MICROSCOP Y BASIC 37923 ZACK DIXON METABOLIC 2 [facility] PANEL INC INC CALCIUM TOTAL RADIOLOGI 05339 ZACK DIXON C 2 [facility] EXAMINATI INC [place] [address] ZACK DIXON HEAD/BRAI 2 [facility] N W/O INC INC CONTRAST MATERIAL CREATINE 16818 ZACK DIXON KINASE 2 [facility] TOTAL INC INC 3D 93555 ZACK DIXON RENDERING 2 [facility] W/INTERP INC INC & POSTPROCE SS SUPERVISI ON ECG 32970 ZACK DIXON ROUTINE 2 [facility] ECG INC INC W/LEAST 12 LDS TRCG ONLY W/O I&R 25 30034 ZACK DIXON HYDROXY 2 [facility] INCLUDES INC [place] [address] ZACK DIXON FERRITIN 2 [facility] [place] [address] ZACK DIXON PARATHORM 2 [facility] [place] [address] ZACK DIXON PHOSPHORU 2 [facility] S INC INC INORGANIC CYANOCOBA 86910 ZACK DIXON SOHA 2 [facility] VITAMIN INC INC B-12 RADEX 05698 ZACK DIXON SPINE 2 [facility] CERVICAL INC INC 6 OR MORE VIEWS BASIC 76889 ZACK DIXON METABOLIC 2 [facility] [place] [address] ZACK DIXON BLOOD/URI 2 [facility] C ACID INC INC IRON 75649 ZACK DIXON BINDING 2 [facility] CAPACITY INC INC IRRIGAJ 25526 ZACK DIXON IMPLNTD 2 [facility] VENOUS INC INC ACCESS DRUG DELIVERY SYST RADIOLOGI 74569 [place] SHERI C EXAM 2 MEDICAL MELIDA SKULL IMAGING COMPLETE ASS MINIMUM [address] [place] [address] ZACK DIXON FOLIC 2 [facility] [place] [address] ZACK DIXON IRON 2 [facility] INC INC GLUC BLD 35196 ZACK DIXON GLUC MNTR 2 [facility] DEV INC INC CLEARED FDA SPEC HOME USE BLOOD 35489 ZACK DIXON COUNT 2 [facility] COMPLETE INC INC AUTO&AUTO DIFRNTL WBC GLUC BLD 37387 ZACK DIXON GLUC MNTR 2 [facility] DEV INC INC CLEARED FDA SPEC HOME USE NONINVASI 61180 ZACK DIXON VE 2 [facility] EAR/PULSE INC INC OXIMETRY SINGLE DETER BASIC 92563 ZACK DIXON METABOLIC 2 [facility] PANEL INC INC [facility] G0378 ZACK DIXON OBSERVATI 2 [facility] ON INC INC SERVICE PER HOUR TECHNETIU A9567 ZACK DIXON M TC-99M 2 [facility] PENTETATE INC INC DX AEROSOL TO [facility] G0378 ZACK [facility]IXON OBSERVATI 2 [facility] ON INC INC SERVICE PER HOUR CREATINE 19944 ZACK DIXON KINASE MB 2 [facility] FRACTION INC INC ONLY CREATINE 63452 ZACK DIOXN KINASE 2 [facility] TOTAL INC INC BASIC 38337 ZACK DIXON METABOLIC 2 [facility] [place] [address] ZACK DIXON TROPONIN 2 [facility] QUANTITAT INC INC MARIBEL ECG 33852 ZACK MCLEAN ROUTINE 2 [facility] W/LEAST P 12 LDS I&R ONLY INITIAL 61381 [facility] 2 PHYSICIAN CARE/DAY S GROUP 50 MINUTES ECHO 54132 [facility] R-T 2 DINA MORA 2D CARDIOLOG W/WOM-MOD Y CLINIC E COMPL SPEC&COLR D RADIOLOGI 66553 LIZZ Lopez EXAM 2 MEDICAL MELIDA CHEST 2 IMAGING VIEWS ASS FRONTAL&L ATERAL PULMONARY 23228 LIZZ WADE 2 MEDICAL MELIDA VENTILATI IMAGING ON & ASS PERFUSION IMAGING GLUC BLD 83510 ZACK DIXON GLUC MNTR 2 [facility] DEV INC INC CLEARED FDA SPEC HOME USE BLOOD 95278 ZACK DIXON COUNT 2 [facility] COMPLETE INC INC AUTO&AUTO DIFRNTL WBC NONINVASI 64378 ZACK DIXON VE 2 [facility] EAR/PULSE INC INC OXIMETRY SINGLE DETER ECG 62076 ZACK DIXON ROUTINE 2 [facility] ECG INC INC W/LEAST 12 LDS TRCG ONLY W/O I&R TECHNETIU A9540 ZACK Flanagan TC-99M 2 [facility] MAA DX INC INC STDY DOSE UP TO 10 MCI THERAPEUT 81970 ZACK DIXON IC 2 [facility] PROPHYLAC INC INC TIC/DX INJECTION SUBQ/IM ECG 42418 ZACK DIXON ROUTINE 2 [facility] ECG INC INC W/LEAST 12 LDS TRCG ONLY W/O I&R BLOOD 60746 ZACK DIXON COUNT 2 [facility] COMPLETE INC INC AUTO&AUTO DIFRNTL WBC CULTURE 85685 ZACK DIXON BACTERIAL 2 [facility] BLOOD INC INC AEROBIC W/ID ISOLATES SUSCEPTIB 58811 ZACK DIXON LTY STDY 2 [facility] ANTIMICRB INC INC IAL MICRO/AGA R DILUTJ URNLS DIP 53957 ZACK DIXON 2 [facility] STICK/TAB INC INC [place] [address] ZACK [facility]IXON TROPONIN 2 [facility] QUANTITAT INC INC MARIBEL NATRIURET 22772 ZACK DIXON IC 2 [facility] PEPTIDE INC INC ECG 58962 EMEKA WILCOX ROUTINE 2 EMERGENCY [facility] ECG SERVICES W/LEAST 12 LDS I&R ONLY CULTURE 74959 ZACK DIXON BACTERIAL 2 [facility] INC INC QUANTTATI VE COLONY COUNT URINE CULTURE 64314 ZACK DIXON BCT 2 [facility] ISOL&PRSM INC INC PTV ID ISOLATE EA URINE CREATINE 86057 ZACK DIXON KINASE 2 [facility] TOTAL INC INC FIBRIN 84564 ZACK DIXON DGRADJ 2 [facility] PRODUCTS INC INC D-DIMER QUAL/SEMI BARB CREATINE 25234 ZACK DIXON KINASE MB 2 [facility] FRACTION INC INC ONLY COMPREHEN 61984 ZACK DIXON SIVE 2 [facility] METABOLIC INC INC PANEL RADIOLOGI 08093 [place] SHERI C 2 MEDICAL MELIDA EXAMINATI IMAGING [...] OF 100 MEDICAL MEDICAL EQUIPME EQUIPME RADIOLOGI 71679 [place] SHERI C 2 MEDICAL MELIDA EXAMINATI IMAGING ON CHEST ASS SINGLE VIEW FRONTAL VENOUS 3893 ZACK DIXON CATHETERI 2 [facility] ZATION INC INC NOT ELSEWHERE CLASSIFIE D RADIOLOGI 40862 [place] SHERI C EXAM 2 MEDICAL MELIDA CHEST 2 IMAGING VIEWS ASS FRONTAL&L ATERAL COMPREHEN 54522 COMBINED COMBINED SIVE 2 PHYSICIAN PHYSICIAN METABOLIC S LA S LA PANEL COLLECTIO 72757 FAMILY STRAWZELL N VENOUS 2 CARE CRI BLOOD ASSOCIATE VENIPUNCT S, PSC URE RADIOLOGI 97631 VIRGINIA SHERI C 2 MEDICAL MELIDA EXAMINATI IMAGING ON KNEE 3 ASS VIEWS CYANOCOBA 95506 COMBINED COMBINED SOHA 2 PHYSICIAN PHYSICIAN VITAMIN S LA S LA B-12 SEDIMENTA 64826 COMBINED COMBINED TION RATE 2 PHYSICIAN PHYSIC[place] [address] V[place] SHERI RETROPERI 2 MEDICAL MELIDA TONEAL IMAGING REAL TIME ASS W/IMAGE COMPLETE RADIOLOGI 30394 VIR[place]IA SHERI C EXAM 2 MEDICAL MELIDA CHEST 2 IMAGING VIEWS ASS FRONTAL&L ATERAL RHEUMATOI 94484 COMBINED COMBINED D FACTOR 2 PHYSICIAN PHYSICIAN [place] [address] COMBINED COMBINED BLOOD/URI 2 PHYSICIAN PHYSICIAN C ACID S LA S LA HANDLG&/O 05494 FAMILY STRAWZELL R CONVEY 2 CARE CRI OF SPEC ASSOCIATE FOR TR S, PSC OFFICE TO LAB ANTINUCLE 08286 LAB ZOEY LAB ZOEY AR 2 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 YUNG BLOOD 27273 FAMILY STRAWZELL COUNT 2 CARE CRI COMPLETE ASSOCIATE AUTO&AUTO S, PSC DIFRNTL WBC LIPID 38900 FAMILY STRAWZELL PANEL 2 CARE CRI ASSOCIATE S, PSC HEMOGLOBI 63650 FAMILY STRAWZELL N 2 CARE CRI GLYCOSYLA ASSOCIATE ALEX A1C S, PSC HANDLG&/O 58261 FAMILY STRAWZELL R CONVEY 2 CARE CRI OF SPEC ASSOCIATE FOR TR S, [place] [address] COMBINED COMBINED THYROID 2 PHYSICIAN PHYSICIAN STIMULATI S LA S LA NG HORMONE TSH COLLECTIO 64837 FAMILY STRAWZELL N VENOUS 2 CARE CRI BLOOD ASSOCIATE VENIPUNCT S, PSC URE COMPREHEN 87435 COMBINED COMBINED SIVE 2 PHYSICIAN PHYSICIAN METABOLIC S LA S LA PANEL 25 25365 COMBINED COMBINED HYDROXY 2 PHYSICIAN PHYSICIAN INCLUDES S LA S LA FRACTIONS IF PERFORMED DUP-SCAN 32971 ZACK DIXON XTR VEINS 2 [facility] INC INC UNILATERA L/LIMITED STUDY RADIOLOGI 38314 VIRGINIA SHERI C EXAM 2 MEDICAL MELIDA CHEST 2 IMAGING VIEWS ASS FRONTAL&L ATERAL RENAL 93743 ZACK DIXON FUNCTION 2 [facility] PANEL INC INC HEPATIC 09283 ZACK DIXON FUNCTION 2 [facility] PANEL INC INC BLOOD 74068 ZACK DIXON COUNT 2 [facility] COMPLETE INC INC AUTO&AUTO DIFRNTL WBC URNLS DIP 23674 ZACK DIXON 2 [facility] STICK/TAB INC INC LET REAGENT AUTO MICROSCOP Y COLLECTIO 56281 ZACK DIXON N VENOUS 2 [facility] BLOOD INC INC VENIPUNCT URE DEBRIDEME 83842 PAWSAT PAWSAT NT NAIL 2 MAR MAR ANY METHOD 1-5 THERAPEUT 53442 ZACK DIXON IC 1 [facility] PROPHYLAC INC INC TIC/DX INJECTION SUBQ/IM COLLECTIO 92542 ZACK DIXON N VENOUS 1 [facility] BLOOD INC INC VENIPUNCT URE BASIC 71564 ZACK DIXON METABOLIC 1 [facility] PANEL INC INC CALCIUM TOTAL BASIC 60548 ZACK DIXON METABOLIC 1 [facility] PANEL INC INC CALCIUM TOTAL COLLECTIO 60213 ZACK DIXON N VENOUS 1 [facility] BLOOD INC INC VENIPUNCT URE THERAPEUT 04386 ZACK DIXON IC 1 [facility] PROPHYLAC INC INC TIC/DX INJECTION SUBQ/IM 25 55045 ZACK DIXON HYDROXY 1 [facility] INCLUDES [place] [address] ZACK DIXON PARATHORM 1 [facility] ONE INC INC PROTEIN 53821 ZACK DIXON ELECTROPH 1 [facility] ORETIC INC INC FRACTJ&QU ANTJ SERUM COLLECTIO 26916 ZACK DIXON N VENOUS 1 [facility] BLOOD INC INC VENIPUNCT URE CREATININ 21606 ZACK DIXON E OTHER 1 [facility] SOURCE INC INC RENAL 37701 ZACK DIXON FUNCTION 1 [facility] PANEL INC INC PROTEIN 73844 ZACK DIXON XCPT 1 [facility] REFRACTOM INC INC ETRY SERUM PLASMA/WH L BLD BLOOD 54609 ZACK ZACK COUNT 1 [facility] COMPLETE INC INC AUTO&AUTO DIFRNTL WBC URNLS DIP 12805 ZACK DIXON 1 [facility] STICK/TAB INC INC LET REAGENT AUTO MICROSCOP Y BASIC 90098 ZACK DIXON METABOLIC 1 [facility] PANEL INC INC CALCIUM TOTAL COLLECTIO 80992 ZACK DIXON N VENOUS 1 [facility] BLOOD INC INC VENIPUNCT URE ARTHROCEN 47425 [facility] SON TESIS 1 [facility] [place] ASPIR&/IN CLINIC J MAJOR PSC JT/BURSA W/O US RADIOLOGI 99400 ZACK ZACK C EXAM 1 [facility] BOTH INC INC KNEES STANDING ANTEROPOS T INJECTION J1030 [facility] SON 1 [facility] DNISOLONE PSC [place] [address] [place] [address] ZACK DIXON RETROPERI 1 [facility] TONEAL INC INC REAL TIME W/IMAGE COMPLETE DXA BONE 90895 ZACK DIXON DENSITY 1 [facility] STUDY 1/> INC INC SITES AXIAL SKEL OPHTH [address] [facility] 1 VISION XM&EVAL COMPRHNSV ESTAB PT 1/> NON-INVAS 80612 VIRGINIA SHERI MARIBEL 1 MEDICAL MELIDA PHYSIOLOG IMAGING IC STUDY ASS EXTREMITY 3 LEVLS BASIC 41733 COMBINED COMBINED METABOLIC 1 PHYSICIAN PHYSICIAN PANEL S LA S LA CALCIUM TOTAL 25 43706 COMBINED COMBINED HYDROXY 1 PHYSICIAN PHYSICIAN INCLUDES [place] [address] COMBINED COMBINED PARATHORM 1 PHYSICIAN [place] [address] COMBINED COMBINED PHOSPHORU 1 PHYSICIAN PHYSICIAN S S LA S LA INORGANIC BLD GLU A4253 REID MATHEWS TEST/REAG 1 HOME MED HOME MED T STRIPS EQUIP. L EQUIP. L HOME BLD GLU MON-50 LANCETS A4259 REID MATHEWS PER BOX 1 HOME MED HOME MED OF 100 EQUIP. L EQUIP. L CREATININ 33319 ZACK DIXON E BLOOD 1 [place] [address] V[place]IA SHERI ABDOMEN 1 MEDICAL MELIDA W/O IMAGING CONTRAST ASS MATERIAL COLLECTIO 97944 ZACK DIXON N VENOUS 1 [facility] [place] [address] ZACK DIXNO UREA 1 [facility] NITROGEN INC INC QUANTITAT MARIBEL 3D 17041 VIR[place]IA SHERI RENDERING 1 MEDICAL MELIDA IMAGING W/INTERP& ASS POSTPROC DIFF WORK STATION [facility]BL [facility]133 [facility] D[facility] S[facility] 1 MEDICAL MELIDA IMG IMAGING GLBLDR ASS TECHNETIU A9537 ZACK Flanagan TC-99M 1 [facility] MEBROFENI INC INC N DX UP TO [address] [facility] ABDOMINAL 1 MEDICAL MELIAD REAL IMAGING TIME ASS W/IMAGE LIMITED COMPREHEN 05022 COMBINED COMBINED SIVE 1 PHYSICIAN PHYSICIAN METABOLIC S LA S LA PANEL COLLECTIO 54011 COMBINED COMBINED N VENOUS 1 PHYSICIAN PHYSICIAN BLOOD S LA S LA VENIPUNCT URE COLLECTIO 03624 FAMILY MULBERRY N VENOUS 1 CARE NILO BLOOD ASSOCIATE VENIPUNCT S URE COMPREHEN 35458 COMBINED COMBINED SIVE 1 PHYSICIAN PHYSIC[place] [address] COMBINED COMBINED AMYLASE 1 [place] [address] COMBINED COMBINED THYROID 1 PHYSICIAN PHYSICIAN STIMULATI S LA S LA NG HORMONE TSH BLOOD 07881 FAMILY MULBERRY COUNT 1 CARE NILO COMPLETE ASSOCIATE AUTO&AUTO S DIFRNTL WBC HEMOGLOBI 45481 FAMILY MULBERRY N 1 CARE NILO GLYCOSY[place] [address] LAB ZOEY LAB ZOEY LIPASE 1 [employer] RADIOLOGI 69644 VIR[place]IA MICH C EXAM 1 MEDICAL CARLOS CHEST 2 IMAGING VIEWS ASS FRONTAL&L ATERAL BASIC 24682 COMBINED COMBINED METABOLIC 1 PHYSICIAN PHYSICIAN PANEL S LA S LA CALCIUM TOTAL COLLECTIO 65175 FAMILY BRENDAN J N VENOUS 1 CARE [place]LOOD [place] [address] ZACK DIXON STREPTOCO 0 [facility] CCUS INC INC GROUP A IAADI 62592 ZACK DIXON INFLUENZA 0 [facility] B VIRUS INC INC IAADI 42910 ZACK DIXON INFFLUENZ 0 [facility] A A VIRUS INC INC URNLS DIP 49000 ZACK DIXON 0 [facility] STICK/TAB INC INC LET REAGENT AUTO MICROSCOP Y RADIOLOGI 54150 ZACK DIXON C EXAM 0 [facility] CHEST 2 INC INC VIEWS FRONTAL&L ATERAL PRESSURIZ 88335 ZACK DIXON ED/NONPRE 0 [facility] SSURIZED INC INC INHALATIO N TREATMENT COMPREHEN 67912 COMBINED COMBINED SIVE 0 PHYSICIAN PHYSICIAN [place] [address] COMBINED COMBINED THYROID 0 PHYSICIAN PHYSICIAN STIMULATI S LA S LA NG HORMONE TSH COLLECTIO 38401 FAMILY FAMILY N VENOUS 0 CARE CARE BLOOD ASSOCIATE ASSOCIATE VENIPUNCT S S URE OPHTH 76557 PETERSYANELY PETERS LANNY MEDICAL 0 XM&EVAL COMPRHNSV ESTAB PT 1/> FUNDUS 97169 PETERSYANELY CA PETERS LANNY PHOTOGRAP 0 HY W/INTERPR ETATION & REPORT FOR DIAB A5513 WELLNESS WELLNESS ONLY MX 0 LIFE LIFE DNSITY SYSTEMS [employer] CSTM MOLD CSTM EA DIAB ONLY A5500 WELLNESS WELLNESS FIT CSTM 0 LIFE LIFE PREP&SPL SYSTEMS SYSTEMS SHOE [employer] LLC DNSITY INSRT RADIOLOGI 71926 VIR[place]IA SHERI C 0 MEDICAL MELIDA EXAMINATI IMAGING ON ANKLE ASS 2 VIEWS WALKING L4360 [employer] BOOT 0 TECHNOLOG TECHNOLOG PNEUMATC IES INC IES INC &/ VACUUM PREFAB CUSTM FIT RADIOLOGI 07345 VIR[place]IA SHERI C 0 MEDICAL MELIDA EXAMINATI IMAGING ON ANKLE ASS 2 VIEWS RADEX 51473 V[place] SHERI FOOT 0 MEDICAL MELIDA COMPLETE IMAGING MINIMUM 3 ASS VIEWS RADIOLOGI 86552 ZACK DIXON C 0 [facility] EXAMINATI INC INC ON FO[place] 2 [place] [address] [facility] 0 PHYSICIAN JAM CALCANEAL S GROUP FRACTURE W/O MANIPULAT ION RADIOLOGI 26592 VIR[place]IA SHERI C 0 MEDICAL MELIDA EXAMINATI IMAGING ON TIBIA ASS & FIBULA 2 VIEWS RADEX 00296 [place] CALCANE[place] 0 MEDICAL MELIDA MINIMUM IMAGING 2 VIEWS ASS RADIOLOGI 57186 LIZZ WADE C 0 MEDICAL MELIDA EXAMINATI IMAGING ON PELVIS ASS 1/2 VIEWS RADEX 43871 LIZZ WADE FOOT 0 MEDICAL MELIDA COMPLETE IMAGING MINIMUM 3 [place] [address] EMEKA WILCOX 0 EMERGENCY CHIDI CALCANEAL SERVICES FRACTURE W/O MANIPULAT ION AMBULANCE A0429 [facility] SERVICE 0 AMBULANCE AMBULANCE BLS SERVICE SERVICE EMERGENCY TRANSPORT GROUND A0425 [facility] MILEAGE 0 AMBULANCE AMBULANCE PER SERVICE SERVICE STATUTE MILE HEMOGLOBI 94995 FAMILY MULBERRY N 0 CARE NILO GLYCOSYLA ASSOCIATE ALEX A1C S BLOOD 88812 FAMILY MULBERRY COUNT 0 CARE NILO COMPLETE ASSOCIATE AUTO&AUTO S DIFRNTL WBC PPSV23 01257 FAMILY FAMILY VACCINE 2 0 CARE CARE YRS OR ASSOCIATE ASSOCIATE OLDER FOR S S SUBQ/IM USE ADMINISTR G0009 FAMILY MULBERRY ATION OF 0 CARE NILO PNEUMOCOC ASSOCIATE JORDYN S VACCINE COLLECTIO 69554 FAMILY MULBERRY N VENOUS 0 CARE NILO BLOOD ASSOCIATE VENIPUNCT S URE 25 16387 LAB ZOEY LAB ZOEY HYDROXY 0 [employer]IC [employer] INCLUDES 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 IF PERFORMED GLUCOSE 89261 FAMILY MULBERRY POST 0 CARE NIL[place] [address] COMBINED COMBINED FERRITIN 0 PHYSICIAN PHYSICIAN S LAB S LAB CYANOCOBA 50082 COMBINED COMBINED SOHA 0 PHYSICIAN PHYSICIAN VITAMIN S LAB S LAB B-12 [place] [address] COMBINED COMBINED IRON 0 PHYSICIAN [place] [address] COMBINED COMBINED FOLIC 0 PHYSICIAN PHYSICIAN ACID S LAB S LAB SERUM COMPREHEN 11662 COMBINED COMBINED SIVE 0 PHYSICIAN PHYSICIAN METABOLIC S LAB S LAB PANEL LIPID 30227 COMBINED COMBINED PANEL 0 PHYSICIAN PHYSICIAN S LAB S LAB HEMOGLOBI 34269 FAMILY MULBERRY, N 0 CARE CLEO T GLYCOSYLA ASSOCIATE ALEX A1C S BLOOD 18911 FAMILY MULBERRY, COUNT 0 CARE CLEO T COMPLETE ASSOCIATE AUTO&AUTO S DIFRNTL WBC COLLECTIO 60060 FAMILY ELIAS, N VENOUS 0 CARE CLEO T BLOOD ASSOCIATE VENIPUNCT S URE COLLECTIO 29201 FAMILY ELIAS, N VENOUS 0 CARE CLEO T BLOOD ASSOCIATE VENIPUNCT S URE BASIC 36257 COMBINED COMBINED METABOLIC 0 PHYSICIAN PHYSICIAN PANEL S LAB S LAB CALCIUM TOTAL BLOOD 86077 FAMILY ELIAS, COUNT 0 CARE CLEO T COMPLETE ASSOCIATE AUTO&AUTO S DIFRNTL WBC BLD GLU A4253 REID MATHEWS TEST/REAG 0 HOME MED HOME MED T STRIPS EQUIP. EQUIP. HOME [facility] LLC GLU MON-50 H[facility] 62709 FAMILY ELIAS, DISCHARGE 0 CARE CLEO T DAY ASSOCIATE MANAGEMEN S T > 30 MIN LANCETS A4259 REID MATHEWS PER BOX 0 HOME MED HOME MED OF 100 EQUIP. EQUIP. LLC LLC RADIOLOGI 13647 [facility] EXAM 0 MEDICAL XAVI P CHEST 2 IMAGING VIEWS ASSOCIATE FRONTAL&L S ATERAL SBSQ 00398 [facility] 0 CARE CLEO T CARE/DAY ASSOCIATE 25 S MINUTES ECG 04562 ZACK BARRETO, ROUTINE 0 [facility] W/LEAST PROF SERV 12 LDS I&R ONLY RADIOLOGI 81321 [facility] [place] EXAM 0 MEDICAL RAYMUNDO CHEST 2 IMAGING VIEWS ASSOCIATE FRONTAL&L S ATERAL INITIAL 44414 [facility] 0 CARE CLEO T CARE/DAY ASSOCIATE 50 S MINUTES ECHO 47575 [facility] R-T 0 PHYSICIAN MINNA Gardiner S GROUP W/WOM-MOD E COMPL SPEC&COLR D INTRO 95420 EMEKA WILCOX, NEEDLE/IN 0 EMERGENCY [facility] TRACAT SERVICES EXTREMITY [place] [address] [facility] WADE, ASHLEY VNTJ 0 MEDICAL RAYMUNDO IMG IMAGING AERSL ASSOCIATE 1/ICT ANALYST S PRJCJ AMB A0427 [facility] SERVICE 0 AMBULANCE AMBULANCE ALS SERVICE SERVICE EMERGENCY TRANSPORT LEVEL 1 GROUND A0425 [facility] 0 AMBULANCE AMBULANCE PER SERVICE SERVICE STATUTE MILE IAADIADOO 60320 FAMILY MULBERRY, 0 CARE CLEO T STREPTOCO ASSOCIATE CCUS S GROUP A ORTHOPANT 65468 LIZZ BRIANUTCHER, OGRAM 0 MEDICAL RAYMUNDO IMAGING ASSOCIATE S RENAL 97164 ZACK DIXON FUNCTION 0 [facility] PANEL INC INC COLLECTIO 22904 ZACK DIXON N VENOUS 0 [facility] [...] LLC LLC HOME BLD GLU MON-50 COLLECTIO 11645 ZACK DIXON N VENOUS 9 [facility] BLOOD INC INC VENIPUNCT URE RENAL 79300 ZACK DIXON FUNCTION 9 [facility] MEM [...] CARE [facility] OF [address] [place] [address] ZACK DIXON RETROPERI 9 [facility] TONEAL INC INC REAL TIME W/IMAGE COMPLETE URNLS DIP 31656 ZACK DIXON 9 [facility] STICK/TAB INC INC LET REAGENT AUTO MICROSCOP Y SUSCEPTIB 66878 ZACK DIXON LTY STDY 9 [facility] ANTIMICRB INC INC IAL MICRO/AGA R DILUTJ RENAL 95835 ZACK DIXON FUNCTION 9 [facility] PANEL INC INC COMPLEMEN 25264 ZACK DIXON T 9 [facility] FUNCTIONA INC INC L ACTIVITY EACH COMPONENT COLLECTIO 87798 ZACK DIXON N VENOUS 9 [facility] BLOOD INC INC VENIPUNCT URE CULTURE 15091 ZACK DIXON BCT 9 [facility] ISOL&PRSM INC INC PTV ID ISOLATE EA URINE CULTURE 13140 ZACK DIXON BACTERIAL 9 [facility] INC INC QUANTTATI VE COLONY COUNT URINE ANTINUCLE 15919 ZACK DIXON AR 9 [facility] [place] [address] ZACK DIXON BLOOD/URI 9 [facility] C ACID INC INC ANTISTREP 52559 ZACK DIXON TOLYSIN O 9 [facility] SCREEN INC INC BASIC 04667 ZACK DIXON METABOLIC 9 [facility] PANEL INC INC CALCIUM TOTAL COLLECTIO 60703 ZACK DIXON N VENOUS 9 [facility] BLOOD INC INC VENIPUNCT URE COLLECTIO 57837 ZACK DIXON N VENOUS 9 [facility] BLOOD INC INC VENIPUNCT URE COMPREHEN 69198 ZACK DIXON SIVE 9 [facility] [address] ZACK DIXON THYROID 9 [facility] STIMULATI INC INC NG HORMONE TSH BLOOD 06292 ZACK DIXON COUNT 9 [facility] COMPLETE INC INC AUTO&AUTO DIFRNTL WBC LANCETS A4259 DIABETES DIABETES PER BOX 9 CARE CLUB [facility] NORMAL A4256 DIABETES DIABETES LOW AND 9 C[facility] HIGH [facility] CALIBRATO R SOLUTION/ CHIPS BLD GLU A4253 DIABETES DIABETES TEST/REAG 9 CARE CLUB CARE CLUB T STRIPS [facility] LLC HOME BLD GLU MON-50 SPRING-PO A4258 DIABETES DIABETES WERED 9 CARE CLUB CARE CLUB DEVICE [facility] FOR LANCET EACH REPL KIM A4235 DIABETES DIABETES LITHIUM 9 CARE CLUB CARE CLUB MED NECES [facility] BG MON OWN PT EA OPHTH 64552 LORRAINE PETERS, MEDICAL 9 GEE A GEE A XM&EVAL COMPRHNSV ESTAB PT 1/> CREATININ 86756 FAMILY MULBERRY, E OTHER 9 CARE CLEO T SOURCE ASSOCIATE S COLLECTIO 18474 FAMILY MULBERRY, N VENOUS 9 CARE CLEO T BLOOD ASSOCIATE VENIPUNCT S URE HEMOGLOBI 28337 COMBINED COMBINED N 9 PHYSICIAN PHYSICIAN GLYCOSYLA S LAB S LAB ALEX A1C ALBUMIN 08566 FAMILY ELIAS, URINE 9 CARE CLEO T [...] LLC LLC HOME BLD GLU MON-50 THERAPEUT 38418 PROFESSIO CROSSFIEL ACTVITY 8 NAL REHAB D, DIRECT PT ASSOC DANNITA CONTACT PSC EACH 15 MIN MANUAL 85652 PROFESSIO CROSSFIEL THERAPY 8 NAL REHAB D, TQS 1/> ASSOC DANNITA REGIONS PSC EACH 15 MINUTES THERAPEUT 71279 PROFESSIO CROSSFIEL IC PX 1/> 8 NAL REHAB D, AREAS ASSOC DANNITA EACH 15 PSC MIN EXERCISES CANE E0105 REID MATHEWS QUAD/3-AR 8 HOME MED HOME MED GABINO ALL EQUIP. EQUIP. [facility] [facility] LLC ADJUSTBL/ FIX W/TIPS MANUAL 04744 PROFESSIO CROSSFIEL THERAPY 8 NAL REHAB D, TQS 1/> ASSOC DANNITA REGIONS PSC EACH 15 MINUTES PHYSICAL 74183 PROFESSIO CROSSFIEL THERAPY 8 NAL REHAB D, EVALUATIO ASSOC DANNITA N PSC THERAPEUT 79180 PROFESSIO CROSSFIEL IC PX 1/> 8 NAL REHAB D, AREAS ASSOC DANNITA EACH 15 PSC MIN EXERCISES RADEX HIP 41783 ZACK DIXON 8 [facility] UNILATERA INC INC L COMPLETE MINIMUM 2 VIEWS RADEX 13064 VIR[place]IA MICH, SPINE 8 MEDICAL XAVI Mcdonald LUMBOSACR IMAGING AL ASSOCIATE MINIMUM 4 S VIEWS Encounters Encounter Start End Date Code Location Performer Type Date EMERGENCY 14656 RUDY JOINER DEPT 7 7 PHYSICIAN VISIT S, [facility] HIGH SEVERITY& THREAT [facility] ZACK - 7 7 [facility] INPATIENT [facility] ZACK - 6 6 [facility] OUTPATIEN [facility] OFFICE 99213 CAMERON GORDILLO OUTPATIEN 6 6 MEDICAL T VISIT SERV 25 FOUNDATIO MINUTES N EMERGENCY 13370 ZACK DEPT 6 6 [facility] VISIT [facility] HIGH SEVERITY& THREAT [facility] ZACK - 6 6 [facility] OUTPATIEN [facility] ZACK - OTHER 6 6 [facility]PITAL ZACK - OTHER 6 6 [facility] OFFICE 91625 CAMERON GORDILLO OUTPATIEN 6 6 MEDICAL T VISIT SERV 25 FOUNDATIO MINUTES N OFFICE 70881 [facility] OUTPATIEN 6 6 [facility] CHAR[facility] T VISIT INTERNAL 15 MEDI MINUTES OFFICE 82017 [facility] BESSON OUTPATIEN 6 6 [facility] TRACY T VISIT INTERNAL 15 MED MINUTES EMERGENCY 02402 ZACK 6 6 [facility] DEPARTMEN [facility] T VISIT HIGH/URGE NT SEVERITY EMERGENCY 55870 RUDY WANG DEPT 6 6 PHYSICIAN VISIT S, [facility] HIGH SEVERITY& THREAT [facility] ZACK - 6 6 [facility] OUTPATIEN [facility] EMERGENCY 66647 ZACK 6 6 [facility] DEPARTMEN [facility] T VISIT MODERATE SEVERITY EMERGENCY 85138 RUDY WILCOX 6 6 PHYSICIAN CHIDI DEPARTMEN S, PLLC T VISIT HIGH/URGE NT SEVERITY HOSPITAL ZACK - 6 6 [facility] OUTPATIEN INC T [facility] INPAT[facility] 6 6 [facility] INPAT[facility] 6 6 [facility] ZACK - 5 5 [facility] OUTPATIEN INC T EMERGENCY 68270 ZACK 5 5 [facility] DEPARTMEN INC T VISIT LOW/MODER SEVERITY [facility] INPAT[facility] 5 5 [facility] 5 5 [facility] ZACK - 5 5 [facility] INPATIENT INC OFFICE 60674 ZACK STEWARTEN 5 5 [facility] VISIT 5 HOSPITAL MINUTES P OFFICE 62123 ZACK CALDERON OUTPATIEN 5 5 [facility] 10 P MINUTES EMERGENCY 16999 ZACK 5 5 [facility] DEPARTMEN INC T VISIT LIMITED/M [facility] ZACK - 5 5 [facility] OUTPATIEN INC T OFFICE 75887 CAMERON GORDILLO OUTONESIMO 5 5 MEDICAL T VISIT SERV 25 FOUNDATIO MINUTES [facility] ZACK - 5 5 [facility] OUTPATIEN INC [facility]OSPITAL ZACK - 5 5 [facility] OUTPATIEN INC T OFFICE 29301 [facility] OUTPATIEN 5 5 [facility] T VISIT INTERNAL 25 MEDI MINUTES OFFICE 99250 ZACK CALDERON OUTPATIEN 5 5 [facility] VIS[facility]OSP[facility] 15 P MINUTES HOSPITAL ZACK - 5 5 [facility] OUTPATIEN INC HOSPITAL ZACK - OTHER 5 5 [facility] INC OFFICE 07098 [facility]AKC CONNELL 5 5 [facility] 10 P MINUTES [facility] INPATIENT 5 5 [facility] OFFICE 19862 [place] ERIBERTO GORDILLO OUTDICKSONEN 5 5 MEDICAL T VISIT SERV 25 FOUNDATIO MINUTES N [facility] INPATIENT 5 5 [facility] 5 5 [facility] 5 5 [facility] ZACK - 5 5 [facility] INPATIENT [facility] EMERGENCY 29676 ZACK Dawn 5 5 [facility] T VISIT P LOW/MODER SEVERITY [facility] ZACK - 5 5 [facility] OUTPATIEN [facility] HOSPITAL ZACK - 5 5 [facility] OUTPATIEN [facility] OFFICE 93516 CAMERON GORDILLO OUTPATIEN 4 4 MEDICAL T VISIT SERV 25 FOUNDATIO MINUTES [facility] ZACK - 4 4 [facility] OUTPATIEN [facility] EMERGENCY 17288 ZACK 4 4 [facility] T VISIT MODERATE SEVERITY [facility] ZACK - 4 4 [facility] OUTPATIEN [facility] EMERGENCY 16576 [facility] DEPT 4 4 ERIC IMT VISIT EMERGENCY HIGH PHYS SEVERITY& THREAT [facility] ZACK - OTHER 4 4 [facility] OFFICE 01468 CAMERON GORDILLO OUTPATIEN 4 4 MEDICAL T VISIT SERV 25 FOUNDATIO MINUTES [facility] ZACK - 4 4 [facility] Z[facility] - KE[facility] 4 4 [facility] ZACK [facility] 4 4 [facility] OFFICE 54618 CAMERON GORDILLO OUTPATIEN 3 3 MEDICAL T VISIT SERV 25 FOUNDATIO MINUTES OFFICE 01284 [facility] IMELDANISA OUTPATIEN 3 3 PHYSICIAN JAM T VISIT S GROUP 15 MINUTES [facility]OSPITAL ZACK - 3 3 [facility] ZACK [facility] 3 3 [facility] EMERGENCY 55235 ZACK 3 3 [facility] T VISIT LIMITED/M INOR PROB EMERGENCY 30884 EMEKA ALFORD 3 3 EMERGENCY III [facility] T VISIT HIGH/URGE NT SEVERITY [facility] Z[facility] - 3 3 [facility] EMERGENCY 56105 ZACK 3 3 [facility] T VISIT [facility]IGH/URGE NT SEVERITY EMERGENCY 47236 EMEKA LIRA DEPT 3 3 EMERGENCY VISIT SERVICES HIGH SEVERITY& THREAT [facility] ZACK - 3 3 [facility] ZACK - 3 3 [facility] OFFICE 93731 CAMERON GORDILLO OUTPATIEN 3 3 MEDICAL T VISIT SERV 25 FOUNDATIO MINUTES [facility] ZACK - 3 3 [facility] Z[facility] 3 3 [facility] ZACK - 3 3 [facility] - 3 3 [facility] Z[facility] - 3 3 [facility] ZACK - 2 2 [facility] EMERGENCY 44647 EMEKA CASTELLANO DEPT 2 2 EMERGENCY VISIT SERVICES HIGH SEVERITY& THREAT [facility] ZACK - 2 2 [facility] 64488 CAMERON ERIBERTO GORDILLO OUTPATIEN 2 2 MEDICAL T [facility]ISIT SERV 25 [facility] ZACK - 2 2 [facility] 2 [facility] 81152 CAMERON ERIBERTO GORDILLO OUTPATIEN 2 2 MEDICAL T VISIT SERV 15 [facility] ZACK - 2 2 [facility] 2 [facility] 86915 EMEKA ALFORD DEPT 2 2 EMERGENCY III NANCY VISIT SERVICES HIGH SEVERITY& THREAT [facility] EMERGENC[facility] 11419 ZACK 2 2 [facility] VISIT HIGH/URGE NT [facility]VERITY [facility] - 2 2 [facility] 55654 ZACK 2 2 [facility] VISIT HIGH/URGE NT SEVERITY EMERGENCY 96962 EMEKA WILCOX DEPT 2 2 EMERGENCY [facility] V[facility]IT SERVICES HIGH SEVERITY& THREAT [facility] ZACK - 2 2 [facility] INPATIENT [facility] OFFICE 89627 FAM[facility] STRAWZELL OUTPATIEN 2 2 CARE CRI T VISIT ASSOCIATE 25 S, PSC MINUTES OFFICE 34936 [facility] OUTPATIEN 2 2 CARE CRI T VISIT ASSOCIATE 15 S, PSC MINUTES [facility]OSPITAL ZACK - 2 2 [facility] T EMERGENCY 26477 ZACK 2 2 [facility] T VISIT [facility]OW/MODER SEVERITY EMERGENCY 41030 EMEKA ALFORD 2 2 EMERGENCY III [facility] T VISIT HIGH/URGE NT SEVERITY [facility] - 2 2 [facility]EN [facility] T OFFICE 34051 [place] [facility] [facility] OUTPATIEN 2 2 MEDICAL T VISIT SERV 25 FOUNDATIO MINUTES OFFICE 75215 [facility] OUTPATIEN 2 2 Aug T NEW 30 MINUTES [facility]OSPITAL ZACK - 1 1 [facility] ZACK [facility] 1 1 [facility] [facility] T OFFICE [id number] [place] [facility] [facility] OUTPATIEN 1 1 MEDICAL T VISIT SERV 25 FOUNDATIO MINUTES [facility]OSP[facility] - 1 1 [facility] EMERGENCY [id number] ZACK 1 1 [facility] T VISIT MODERATE SEVERITY [facility]OSPITAL [facility] - 1 1 [facility]EN [facility] H[facility]PITAL ZACK [facility] 1 1 [facility]EN [facility]PITAL ZACK - 1 1 [facility] OUTPATIEN [facility] T OFFICE [id number] [place] OUTPATIEN 1 1 [place] T NEW 45 CLINIC MINUTES [facility] ZACK - 1 1 [facility] Z[facility] - 1 1 [facility] OUT[facility] T OFFICE [address] [place] [facility] OUTPATIEN 1 1 MEDICAL T NEW 60 SERV MINUTES [facility] 1 1 [facility] OUTPATIEN INC T OFFICE 07146 FAMILY LOGANBERRY OUTPATIEN 1 1 CARE NILO T VISIT ASSOCIATE 40 S MINUTES [facility]OSPITAL [facility] - 1 1 [facility] OUT[facility]EN INC T EMERGENCY 03722 ZACK 1 1 [facility] DEPARTMEN INC T VISIT LOW/MODER SEVERITY EMERGENCY 01211 EMEKA WU 1 1 EMERGENCY JAM DEPARTMEN SERVICES T VISIT MODERATE SEVERITY OFFICE 89475 FAMILY JADA OUTPATIEN 1 1 CARE NILO T VISIT ASSOCIATE 25 S MINUTES OFFICE 79845 ANKUSH LECHUGA JR OUTPATIEN 1 1 ELAINE ELAINE T VISIT 15 MINUTES [facility]OSPITAL [facility] - 1 1 [facility] INC T OFFICE 83467 ANKUSH LECHUGA JR OUTPATIEN 1 1 ELAINE ELAINE T NEW 45 MINUTES HOSPITAL [facility] 1 1 [facility] INC T [facility] - 1 1 [facility] OUT[facility] INC T OFFICE 23279 FAMILY ELIAS OUTPATIEN 1 1 CARE NILO T VISIT ASSOCIATE 25 S MINUTES [facility]OSPITAL [facility] - 1 1 [facility] INC T EMERGENCY 12083 ZACK 1 1 [facility] DEPARTMEN INC T VISIT LOW/MODER SEVERITY EMERGENCY 33856 EMEKA CASTELLANO 1 1 EMERGENCY DEPARTMEN SERVICES T VISIT HIGH/URGE NT SEVERITY OFFICE 65929 FAMILY BRENDAN Estrella OUTPATIEN 1 1 CARE T VISIT ASSOCIATE 15 S MINUTES EMERGENCY 15472 EMEKA WILCOX 0 0 EMERGENCY [facility] DEPARTMEN SERVICES T VISIT HIGH/URGE NT SEVERITY [facility]OSPITAL [facility] - 0 0 [facility] OUTPATIEN INC T EMERGENCY 91063 ZACK 0 0 [facility] DEPARTMEN INC T VISIT LOW/MODER SEVERITY OFFICE 43746 FAMILY BRENDAN J OUTPATIEN 0 0 CARE T VISIT ASSOCIATE 15 S MINUTES OFFICE 81781 FAMILY BRENDAN J OUTPATIEN 0 0 CARE T VISIT ASSOCIATE 15 S MINUTES HOSPITAL [facility] - 0 0 [facility] OUT[facility]IEN INC T OFFICE 64388 FAMILY MULBERRY OUTPATIEN 0 0 CARE NILO T VISIT ASSOCIATE 25 S MINUTES [facility]OSPITAL [facility] - 0 0 [facility] OUT[facility]IEN INC T [facility]PITAL [facility] - 0 0 [facility] T OFF[facility] 25824 [facility] PH[facility] JAM T NEW 45 S GROUP MINUTES [facility] ZACK - 0 0 [facility] OUTPATIEN INC T EMERGENCY 32547 ZACK 0 0 [facility] DEPARTMEN INC T VISIT MODERATE SEVERITY EMERGENCY 38957 EMEKA WILCOX 0 0 EMERGENCY [facility] DEPARTMEN SERVICES T VISIT HIGH/URGE NT SEVERITY OFFICE 96350 FAMILY MULBERRY OUTPATIEN 0 0 CARE NILO T VISIT ASSOCIATE 25 S MINUTES OFFICE 96716 FAMILY MULBERRY, OUTPATIEN 0 0 CARE CLEO T T VISIT ASSOCIATE 15 S MINUTES OFFICE 32504 FAMILY MULBERRY, OUTPATIEN 0 0 CARE CLEO T T VISIT ASSOCIATE 25 S MINUTES OFFICE 03742 FAMILY MULBERRY, OUTPATIEN 0 0 CARE CLEO T T VISIT ASSOCIATE 15 S MINUTES OFFICE 22386 FAMILY MULBERRY, OUTPATIEN 0 0 CARE CLEO T T VISIT ASSOCIATE 25 S MINUTES EMERGENCY 41581 EMEKA WILCOX, DEPT 0 0 EMERGENCY TAYA S VISIT SERVICES HIGH SEVERITY& ASSOCIATE THREAT S [facility] ZACK - 0 0 [facility] INPATIENT INC OFFICE 84694 FAMILY JADA OUTPATIEN 0 0 CARE CLEO T T VISIT ASSOCIATE 15 S MINUTES EMERGENCY 65146 ZACK 0 0 [facility] DEPARTMEN INC T VISIT LOW/MODER SEVERITY [facility]OSPITAL [facility] - 0 0 [facility] OUTPATIEN INC T [facility] ZACK - 0 0 [facility] OUTPATIEN INC T OFFICE 38186 MEANS BUTROS, OUTPATIEN 9 9 ADULT REZSHEALLA T VISIT PRIMARY 15 CARE [facility] ZACK - 9 9 [facility] OUTPATIEN INC T OFFICE 47570 MEANS BUTROS, OUTPATIEN 9 9 ADULT RERANDALLLLA T VISIT PRIMARY 25 CARE [facility] ZACK - 9 9 [facility] OUTPATIEN INC T OFFICE 43285 MEANS BUTROS, CONSULTAT 9 9 ADULT REZKALLA ION PRIMARY [facility] 80 MIN OFFICE 68426 FAMILY JADA OUTPATIEN 9 9 CARE CLEO T T VISIT ASSOCIATE 15 S MINUTES [facility] ZACK - 9 9 [facility] OUTPATIEN INC [facility] ZACK - 9 9 [facility] OUTPATIEN INC T OFFICE 71820 FAMILY JADA OUTPATIEN 9 9 CARE CLEO T T VISIT ASSOCIATE 25 S MINUTES OFFICE [id number] FAMILY JADA OUTPATIEN 9 9 CARE CLEO T T VISIT ASSOCIATE 25 S MINUTES OFFICE 71582 FAMILY KO OCAMPO 8 8 CARE R PADMINI T VISIT ASSOCIATE 25 S MINUTES HOSPITAL [facility] - 8 8 [facility] OUTPATIEN INC T OFFICE 59783 Sameer MARCOS 8 8 CARE G T VISIT ASSOCIATE 15 S MINUTES HOSPITAL ZACK [place] 8 8 [facility] 14885 ZACK 8 8 [facility] T VISIT LOW/MODER SEVERITY EMERGENCY 23464 ZACK 8 8 [facility] T VISIT LIMITED/M [facility]OR [facility] ZACK - Rodrigo 8 [facility]
--- OUTSIDE RECORDS SUMMARY | 2016-10-20 19:39 | External Medical Summary Rpt ---
Demographics Preferred Language Angolan Marital Status Unknown Confucianism Affiliation Unknown Race Unknown Ethnic Group Unknown Author Author , Organization [employer] Address Unknown Phone Unavailable Purpose Continuity of Care Document - through 2016 Immunization No patient found.
--- OUTSIDE RECORDS SUMMARY | 2016-10-20 19:39 | External Medical Summary Rpt ---
Demographics Preferred Language Kosovan Marital Status Unknown Evangelical Affiliation Unknown Race Unknown Ethnic Group Unknown Author Author , Organization [employer] Address Unknown Phone Unavailable Purpose Continuity of Care Document - through 2016 Immunization No patient found.
[2016-10-20 22:03] VITALS: BP 97/53
[2016-10-20 23:01] VITALS: BP 97/53
[2016-10-21] VITALS (10 sets, daily range): BP systolic 81–127; BP diastolic 29–63
[2016-10-21] MEDS ORDERED: VITAMIN C500 M1 PO (01:44)
[2016-10-21] MEDS ORDERED: CLOPIDOGREL75 MG PO (01:45)
[2016-10-21] MEDS ORDERED: CRANBERRY250 MG PO (01:47)
[2016-10-21] MEDS ORDERED: Zofran4 MG PO (01:48)
[2016-10-21] MEDS ORDERED: AMBIEN 10MG TAB10 MG PO (01:49)
[2016-10-21 03:08] LABS: URINE BILIRUBIN - DIPSTICK NEGATIVE (NEG); URINE BLOOD NEGATIVE (NEG)
--- NOTE | 2016-10-21 07:35 | PHARMACY CLINIC NOTE ---
See Addendum Patient Demographics Patient Demographics Admission date: 10/20/16 Date: 10/21/16 Time: 0734 Allergies Coded Allergies: vancomycin (Severe, 09/13/16) Sulfa (Sulfonamide Antibiotics) (Mild, 09/13/16) celecoxib (From CELEBREX) (Mild, 09/13/16) cephalexin (From KEFLEX) (Mild, 09/13/16) levofloxacin (From LEVAQUIN) (Mild, 09/13/16) HEIGHT- FT: 4 IN: 10.00 K.311 VTE General Information Labs: Laboratory Tests 10/20 1810 Hematology Hgb (12.2 - 16.2 g/dL) 10.4 L Hct (37.0 - 47.0 %) 33.2 L Plt Count (142 - 424 K/mm3) 227 Disclaimer The following section includes nursing documentation that has been pulled in for pharmacy review. Patient's VTE score: 5 Patient's VTE Risk: LOW RISK Clinical trial participant? No VTE prophylaxis [id number] VTE prophylaxis ordered? Yes Type of prophylaxis/treatment: ALEX at 0734
--- NOTE | 2016-10-21 08:15 | CONSULT NOTE ---
Standard Demographics Patient Demo Date of Consultation: 10/21/16 Referring Provider: Naveed Starks MD Reason for Consultation: non-STEMI PRIMARY DIAGNOSIS: NSTEMI; PNEUMONIA; HYPOTENSION; HYPERKALEMIA Problem list Problem list: 1. Coronary disease A. ST elevation myocardial infarction, 08/2016 B. Cardiac catheterization, 08/2016, three-vessel disease in the left anterior descending, diagonal and RCA. 2 MISSY placed to the second diagonal artery. 1 MISSY to mid to distal LAD (felt to be the infarct vessel due to anterior wall hypokinesis). Resistant severe stenosis in the LAD immediately distal to the second diagonal artery. 1 MISSY to mid to distal RCA. Severe left ventricular dilatation with severely reduced ejection fraction. Severely elevated LVEDP. Moderate to severe fibromuscular dysplasia involving the right renal artery. Mild atheromatous nonflow limiting plaque in the left renal artery. C. Non-STEMI, 10/20/2016 D. Echocardiogram, 08/2016, revealed ejection fraction of approximately 25 percent with moderate MR. 3. Diabetes mellitus, poorly controlled 4. Chronic kidney disease, stage 4 with baseline creatinine around 2 and GFR in the mid 20s. Acute worsening noted on admission 10/2016 which may be likely due to of recent VIANNEY inhibitor institution. 5. Hypothyroidism 6. Hyperlipidemia 7. Suspected fibromuscular dysplasia of the RIGHT renal artery by cardiac catheterization 08/2016. History of present illness: History of present illness: 76-year-old white female with known coronary disease, recent myocardial infarction and coronary disease status post stenting presented to the emergency department from long-term for complaint of not feeling well. On further evaluation in the ER patient did describe some chest discomfort. Cardiac enzymes are drawn and noted to be elevated and patient therefore admitted for further evaluation and treatment. Nitroglycerin glycerin paste was placed overnight as well as starting some IV fluids. Patient has an acute worsening of her chronic kidney disease with hyperkalemia. Patient's chest discomfort has improved overnight. Preliminary echocardiogram this a.m. revealed ejection fraction increased into the 50 percent range. Cardiology consulted for recommendations. Past Medical History: General: Hypertension Yes CVA No Seizures No TB No COPD No Asthma No Diabetes Yes Insulin Dependent Yes Insulin Pump No Angina No AR Yes Hyperlipidemia Yes Urinary No Cancer No Rheumatic H.D. No Ulcers No MRSA No GB Disease No Other OSTEOPOROSIS Additional hx OSTEOPEROSIS, GOUT, Neuropathy, insomnia, chronic pain, CKD followed by Nephrology Past Surgical HX: Previous Surgery?Y TONSILECTOMY CARDIAC STENTS Allergies Coded Allergies: vancomycin (Severe, 09/13/16) Sulfa (Sulfonamide Antibiotics) (Mild, 09/13/16) celecoxib (From CELEBREX) (Mild, 09/13/16) cephalexin (From KEFLEX) (Mild, 09/13/16) levofloxacin (From LEVAQUIN) (Mild, 09/13/16) Home medications: Active Scripts Lisinopril 2.5 MG PO DAILY #30 TAB Ref 1 Prov: 09/16/16 Atorvastatin Calcium (Atorvastatin) 40 MG PO QHS #30 TAB Ref 2 Prov: 09/16/16 APAP 300MG W/CODEINE 30MG (Acetaminophen-Cod #3 Tablet) 1 TAB PO Q4HP PRN PAIN #90 TAB Ref 1 Prov: 09/16/16 Lorazepam (Ativan) 0.5 MG PO QHSP PRN insomnia #30 TAB Ref 1 Prov: 09/16/16 Azithromycin (Zithromax 250 Mg) 250 MG PO DAILY #4 TAB Prov: 10/19/16 Reported Medications Allopurinol 200 MG PO DAILY Ins Asp-Prt 70/Asp 30(Nvlogmx) (Novolog Mix 70-30 Flexpen Syrn) 5 UNITS SC QHS Levothyroxine Sodium (Levothyroxine) 0.05 MG PO DAILY Amitriptyline Hcl (Amitriptyline) 25 MG PO QHS #30 TAB Escitalopram Oxalate 10 MG PO DAILY #30 TAB Ascorbic Acid (Vitamin C) 2 TABS PO DAILY CLOPIDOGREL BISULFATE (Clopidogrel 75MG) 75 MG PO DAILY Cranberry Extract (Cranberry) 250 MG PO DAILY Ondansetron (Zofran Odt) 4 MG PO Q6HP PRN N/V Zolpidem Tartrate (Ambien 10MG) 10 MG PO QHS ASPIRIN (Aspirin) 81 MG PO DAILY Furosemide (Lasix 40MG) 40 MG PO DAILY POTASSIUM CHL (Potassium Chloride) 20 MEQ PO DAILY Current Medications: Current Medications Allopurinol 200 MG DAILY PO Calcium Carbonate 500 MG DAILY PO Insulin Aspart Prota 70%/Aspart 30% 25 UNITS QAM SC Sodium Chloride 50 ML .STK-MED ONE IV (DC) Piperacillin Sod/Tazobactam Sod 0 .STK-MED ONE .ROUTE (DCr) Piperacillin Sod/Tazobactam Sod 2.25 GM Q6 IV (CKD) Sodium Chloride 50 ML Hydromorphone HCl 0 .STK-MED ONE .ROUTE (DC) Azithromycin 0 .STK-MED ONE IV (DC) Sodium Chloride 250 ML .STK-MED ONE IV (DC) Hydromorphone HCl 1 MG Q4HP PRN IV Morphine Sulfate 4 MG Q4HP PRN IV Sodium Chloride 1,000 ML .[id number] IV Atorvastatin Calcium 40 MG QHS PO Carvedilol 6.25 MG BID PO (DC) Diagnostic Test (Pha) 1 EACH W/MEALS&HS FS (DC) Diagnostic Test (Pha) 1 EACH W/MEALS&HS FS Diagnostic Test (Pha) 1 EACH W/MEALS&HS FS (DC) Enoxaparin Sodium 90 MG BID SC (DC) Insulin Aspart Prota 70%/Aspart 30% 5 UNITS QHS SC Insulin Human [rDNA origin] SEE ADMIN CRITERIA FOR LOW INTENSITY SS W/MEALS&HS SC Nitroglycerin 0.5 IN Q8 TP Ticagrelor 90 MG BID PO Levothyroxine Sodium 0.05 MG DAILY PO Aspirin 81 MG DAILY PO Azithromycin 500 MG DAILY IV Sodium Chloride 250 ML Albuterol 0 .STK-MED ONE INH (DC) Insulin Human Regular 0 .STK-MED ONE .ROUTE (DC) Dextrose 0 .STK-MED ONE .ROUTE (DC) Nitroglycerin 0 .STK-MED ONE .ROUTE (DC) Sodium Polystyrene Sulfonate 0 .STK-MED ONE .ROUTE (DC) Calcium Gluconate 0 .STK-MED ONE .ROUTE (DC) Sodium Bicarbonate 0 .STK-MED ONE .ROUTE (DC) Albuterol 2.5 MG ONCE ONE INH (DC) Calcium Gluconate 1 GM ONCE ONE IVP (DC) Dextrose 50 ML ONCE ONE IVP (DC) Insulin Human Regular 10 UNITS ONCE ONE IVP (DC) Sodium Bicarbonate 50 ML ONCE ONE IV (DC) Sodium Polystyrene Sulfonate 30 GM ONCE ONE PO (DC) Enoxaparin Sodium 0 .STK-MED ONE SC (DC) Morphine Sulfate 4 MG ONCE ONE IV (DC) Morphine Sulfate 0 .STK-MED ONE .ROUTE (DC) Nitroglycerin 1 IN ONCE ONE TP (DC) Enoxaparin Sodium 90 MG DAILY SC Morphine Sulfate 1 MG ONCE ONE IV (DC) Ondansetron HCl 4 MG ONCE ONE IV (DC) Piperacillin Sod/Tazobactam Sod 0 .STK-MED ONE .ROUTE (DCr) Sodium Chloride 50 ML .STK-MED ONE IV (DC) Morphine Sulfate 0 .STK-MED ONE .ROUTE (DC) Ondansetron HCl 0 .STK-MED ONE .ROUTE (DC) Piperacillin Sod/Tazobactam Sod 3.375 GM ONCE ONE IV (DCr) Sodium Chloride 50 ML Sodium Chloride 10 ML PRN PRN IV Immunization HX DT/Tetanus 1-4 YRS AGO Flu Refused Pneumonia RECEIVED IN PAST TB Test in last year No Family history Family HX Family Hx Insignificant No Diabetes Yes CAD Yes Hypertension Yes Hyperlipidemia Yes Cancer No TB No Social Hx: Smoking HX Tobacco No Type Cigarettes Packs/day < 1 PACK Alcohol Alcohol: No Hx of Drug Use Drug Use? No Review of systems: Constitutional weakness. Respiratory shortness of breath. Cardiovascular see HPI, chest pain Gastrointestinal/Abdominal No no symptoms reported Genitourinary No: no symptoms reported. Musculoskeletal muscle pain. Neurological No: no symptoms reported. Exam: Admission Vital Signs: 1ST Vital Signs Result Date Time Pulse Ox 93 10/20 1713 B/P 93/65 10/20 1713 Temp 98.3 10/20 1713 Pulse 94 10/20 1713 Resp 20 10/20 1713 O2 Delivery ROOM AIR 10/20 2057 O2 Flow Rate 2 10/200 Last Vital Signs: Vital Signs Result Date Time O2 Flow Rate 2 10/21 0750 Pulse Ox 98 / 0750 B/P 81/48 10/21 0750 O2 Delivery OXYGEN 10/21 0750 Temp 97.8 10/21 0750 Pulse 89 05 0750 Resp 18 / 0750 Exam General appearance: alert, awake, no acute distress Neck: no carotid bruit, unable to appreciate JVD due to body habitus. Cardiovascular: regular rate & rhythm Respiratory: basilar rales noted bilaterally. Extremities: moves all, trace pretibial edema noted. Neuro: alert, intact, oriented Laboratory data: Laboratory Tests 10/21/16 0617: POC Glucose 185 H 10/21/16 0405: Creatine Kinase 605 H, CK-MB (CK-2) Rel Index 0.9, CK and CKMB Interp 5.3 H, Troponin I 0.26 H 10/21/16 0405: Triglycerides 29 L, Cholesterol 68, LDL Cholesterol 14.2, VLDL Cholesterol 5.8, HDL Cholesterol 48.0 10/21/16 0156: Lactic Acid 0.9 10/21/16 0000: Urine Color YELLOW, Urine Appearance CLEAR, Urine pH 5.5, Ur Specific [place] 1.020, Urine Protein NEGATIVE, Urine Ketones NEGATIVE, Urine Blood NEGATIVE, Urine Nitrate NEGATIVE, Urine Bilirubin NEGATIVE, Urine Urobilinogen 1.0, Ur Leukocyte Esterase 2+ H, Urine WBC 5-10, Urine Bacteria 1+, Urine Glucose NEGATIVE 10/20/16 2208: POC Glucose 188 H 10/20/162155: Lactic Acid 2.2 H 10/20/162155: Creatine Kinase 660 H, CK-MB (CK-2) Rel Index 0.8, CK and CKMB Interp 5.4 H, Troponin I 0.27 H 10/20/161809: TSH 2.32, Free T4 Index 4.6 L, Thyroxine (T4) 4.4 L, T3 Uptake 42 H 10/20/161809: Amylase 20 L, Lipase 67 L 10/20/161809: Sodium 132 L, Potassium 6.1 *H, Chloride 100, Carbon Dioxide 23, BUN 81 H, Creatinine 3.1 H, Estimated Creat Clear 22 L, Estimated GFR (MDRD) 15 *L, Glucose 167 H, Calcium 8.1 L, Total Bilirubin 0.7, AST 33, ALT 29, Alkaline Phosphatase 124 H, Creatine Kinase 605 H, CK and CKMB Interp 5.1 H, Troponin I 0.24 H, Total Protein 6.9, Albumin 2.6 L, Globulin 4.3 H, Albumin/Globulin Ratio 0.6 L, WBC 10.9 H, RBC 3.29 L, Hgb 10.4 L, Hct 33.2 L, MCV 100.7 H, RDW 16.1, Plt Count 227, MPV 7.4, Gran % 85.2 H, Gran # 9.3 H, Total Counted 100, Lymphocytes % 8.8 L, Monocytes % 5.7, Eosinophils % 0.1, Basophils % 0.1, Neutrophils 92 H, Lymphocytes (Manual) 6 L, Lymphocytes # 1.0, Monocytes ( Manual) 2, Monocytes # 0.6, Eosinophils # 0.0, Basophils # 0.0, Platelet Estimate NORMAL, Hypochromasia 1+, PUBS MCHC 31.3 L, MCH 31.5 H Microbiology Date/Time Procedure - Status Source Growth 10/21 0000 Urine Culture - RECD URINE CC 10/21 2155 Anaerobic Blood Culture - RECD BLOOD 10/21 2155 Aerobic Blood Culture - RECD BLOOD 10/21 2155 Anaerobic Blood Culture - RECD BLOOD 10/21 2155 Aerobic Blood Culture - RECD BLOOD Plan: Assessment: 1. Non-STEMI. Patient currently clinically stable. 2. Coronary disease with recent coronary stenting of left anterior descending, diagonal and RIGHT coronary artery and August 2016. Remaining left anterior descending stenosis was resistant to angioplasty and recommendation to have the patient return for repeat of cardiac cath and possible stenting. 3. Hyperkalemia 4. Acute worsening of her chronic kidney disease felt secondary to FMD of the RIGHT renal artery in the setting of VIANNEY inhibitor use. 5. Fibromuscular dysplasia of the RIGHT renal artery 6. Severe cardiomyopathy by echocardiogram 08/2016 with preliminary echo today showing improvement to about an ejection fraction of 50 percent. 7. Poorly controlled diabetes mellitus 8. Hypotension Recommendations: 1. Will await official report of echocardiogram. 2. Discontinue VIANNEY inhibitor in the setting of FMD and worsening of chronic kidney disease. 3. Will not plan cardiac cath at this time due to elevated creatinine. 4. Continue medical therapy in the form of aspirin, nitroglycerin paste and Brilinta. 5. Will hold Coreg therapy due to hypotension. 6. Continue statin therapy 7. We'll plan cardiac catheterization early next week provided the creatinine improves back to baseline. 8. Check BNP and chest x-ray today. at 1217
--- NOTE | 2016-10-21 09:17 | HISTORY AND PHYSICAL REPORT ---
Demographics: Admit date: 10/20/16 Chief complaint: weakness PRIMARY DIAGNOSIS: NSTEMI; PNEUMONIA; HYPOTENSION; HYPERKALEMIA Allergies: Coded Allergies: vancomycin (Severe, 09/13/16) Sulfa (Sulfonamide Antibiotics) (Mild, 09/13/16) celecoxib (From CELEBREX) (Mild, 09/13/16) cephalexin (From KEFLEX) (Mild, 09/13/16) levofloxacin (From LEVAQUIN) (Mild, 09/13/16) History of present illness: History of present illness: 76-year-old white female with known coronary disease, recent myocardial infarction and coronary disease status post stenting presented to the emergency department from residential for complaint of not feeling well. On further evaluation in the ER patient did describe some chest discomfort. Cardiac enzymes are drawn and noted to be elevated and patient therefore admitted for further evaluation and treatment. Nitroglycerin glycerin paste was placed overnight as well as starting some IV fluids. Patient has an acute worsening of her chronic kidney disease with hyperkalemia. Patient's chest discomfort has improved overnight. Preliminary echocardiogram this a.m. revealed ejection fraction increased into the 50 percent range. Cardiology consulted for recommendations. Past medical history: Family HX Diabetes Yes CAD Yes Hypertension Yes Hyperlipidemia Yes Cancer No TB No Immunization HX DT/Tetanus 1-4 YRS Flu Refused Pneumonia Received In Past TB Test in last year No General CAD? No Angina: No [place]: Yes Hypertension? Yes Hyperlipidemia? Yes CHF? Yes DVT? No PE? No COPD? No Asthma? No Anemia? No GERD? No Gastric ulcers? No GI Bleed? No Hernia? No Thyroid Problems? Yes Hypothyroidism? Yes CVA? No Seizures? No Diabetes? Yes Insulin Dependent: Yes Insulin Pump: No Home FSBS? Yes Renal Insuffiency? Yes UTI? Yes Stones? No BPH? No GB Disease: No Nephritic Syndrome? No Asplenia? No Hepatitis? No Sickle Cell Disease? No Arthritis? Yes Migraines? No Cataracts? No Glaucoma? No MRSA? No HIV? No TB? No Anxiety? No Depression? Yes Cancer? No More? Yes Additional hx: OSTEOPEROSIS, GOUT, Neuropathy, insomnia, chronic pain, CKD followed by [facility] Past Surgical HX Previous Surgery?Y TONSILECTOMY CARDIAC STENTS Current home meds: Active Scripts Lisinopril 2.5 MG PO DAILY #30 TAB Ref 1 Prov: 09/16/16 Atorvastatin Calcium (Atorvastatin) 40 MG PO QHS #30 TAB Ref 2 Prov: 09/16/16 APAP 300MG W/CODEINE 30MG (Acetaminophen-Cod #3 Tablet) 1 TAB PO Q4HP PRN PAIN #90 TAB Ref 1 Prov: 09/16/16 Lorazepam (Ativan) 0.5 MG PO QHSP PRN insomnia #30 TAB Ref 1 Prov: 09/16/16 Azithromycin (Zithromax 250 Mg) 250 MG PO DAILY #4 TAB Prov: 10/19/16 Reported Medications Allopurinol 200 MG PO DAILY Ins Asp-Prt 70/Asp 30(Nvlogmx) (Novolog Mix 70-30 Flexpen Syrn) 5 UNITS SC QHS Levothyroxine Sodium (Levothyroxine) 0.05 MG PO DAILY Amitriptyline Hcl (Amitriptyline) 25 MG PO QHS #30 TAB Escitalopram Oxalate 10 MG PO DAILY #30 TAB Ascorbic Acid (Vitamin C) 2 TABS PO DAILY CLOPIDOGREL BISULFATE (Clopidogrel 75MG) 75 MG PO DAILY Cranberry Extract (Cranberry) 250 MG PO DAILY Ondansetron (Zofran Odt) 4 MG PO Q6HP PRN N/V Zolpidem Tartrate (Ambien 10MG) 10 MG PO QHS ASPIRIN (Aspirin) 81 MG PO DAILY Furosemide (Lasix 40MG) 40 MG PO DAILY POTASSIUM CHL (Potassium Chloride) 20 MEQ PO DAILY Social Hx: Smoking HX Tobacco No Type Cigarettes Packs/day < 1 PACK Alcohol Alcohol: No Hx of Drug Use Drug Use? No Review of systems: Constitutional see HPI, malaise, weakness. Respiratory see HPI, shortness of breath. Cardiovascular see HPI, chest pain Gastrointestinal/Abdominal No no symptoms reported Genitourinary No: no symptoms reported. Musculoskeletal No: no symptoms reported. Neurological No: see HPI. Psychiatric No: no symptoms reported. Exam: Lab data for last 24 hours: Laboratory Tests 10/21/16 0617: POC Glucose 185 H 10/21/16 0405: Creatine Kinase 605 H, CK-MB (CK-2) Rel Index 0.9, CK and CKMB Interp 5.3 H, Troponin I 0.26 H 10/21/16 0405: Triglycerides 29 L, Cholesterol 68, LDL Cholesterol 14.2, VLDL Cholesterol 5.8, HDL Cholesterol 48.0 10/21/16 0405: Sodium 135 L, Potassium 5.7 H, Chloride 101, Carbon Dioxide 21 L, BUN 86 H, Creatinine 3.2 H, Estimated Creat Clear 22 L, Estimated GFR (MDRD) 14 *L, Glucose 137 H, Calcium 8.0 L 10/21/16 0405: B-Natriuretic Peptide 980 H 10/21/16 0156: Lactic Acid 0.9 10/21/16 0000: Urine Color YELLOW, Urine Appearance CLEAR, Urine pH 5.5, Ur Specific [place] 1.020, Urine Protein NEGATIVE, Urine Ketones NEGATIVE, Urine Blood NEGATIVE, Urine Nitrate NEGATIVE, Urine Bilirubin NEGATIVE, Urine Urobilinogen 1.0, Ur Leukocyte Esterase 2+ H, Urine WBC 5-10, Urine Bacteria 1+, Urine Glucose NEGATIVE 10/20/16 2208: POC Glucose 188 H 10/20/162155: Lactic Acid 2.2 H 10/20/162155: Creatine Kinase 660 H, CK-MB (CK-2) Rel Index 0.8, CK and CKMB Interp 5.4 H, Troponin I 0.27 H 10/20/161809: TSH 2.32, Free T4 Index 4.6 L, Thyroxine (T4) 4.4 L, T3 Uptake 42 H 10/20/161809: Amylase 20 L, Lipase 67 L 10/20/161809: Sodium 132 L, Potassium 6.1 *H, Chloride 100, Carbon Dioxide 23, BUN 81 H, Creatinine 3.1 H, Estimated Creat Clear 22 L, Estimated GFR (MDRD) 15 *L, Glucose 167 H, Calcium 8.1 L, Total Bilirubin 0.7, AST 33, ALT 29, Alkaline Phosphatase 124 H, Creatine Kinase 605 H, CK and CKMB Interp 5.1 H, Troponin I 0.24 H, Total Protein 6.9, Albumin 2.6 L, Globulin 4.3 H, Albumin/Globulin Ratio 0.6 L, WBC 10.9 H, RBC 3.29 L, Hgb 10.4 L, Hct 33.2 L, MCV 100.7 H, RDW 16.1, Plt Count 227, MPV 7.4, Gran % 85.2 H, Gran # 9.3 H, Total Counted 100, Lymphocytes % 8.8 L, Monocytes % 5.7, Eosinophils % 0.1, Basophils % 0.1, Neutrophils 92 H, Lymphocytes (Manual) 6 L, Lymphocytes # 1.0, Monocytes ( Manual) 2, Monocytes # 0.6, Eosinophils # 0.0, Basophils # 0.0, Platelet Estimate NORMAL, Hypochromasia 1+, PUBS MCHC 31.3 L, MCH 31.5 H Microbiology 10/21 0000 URINE CC: Urine Culture - RECD 10/21 2155 BLOOD: Anaerobic Blood Culture - RECD 10/21 2155 BLOOD: Aerobic Blood Culture - RECD 10/21 2155 BLOOD: Anaerobic Blood Culture - RECD 10/21 2155 BLOOD: Aerobic Blood Culture - RECD Admission vital signs: 1ST Vital Signs Result Date Time Pulse Ox 93 10/20 171 B/P 93/65 10/20 1712 Temp 98.3 10/20 1712 Pulse 94 10/20 1712 Resp 20 10/20 1712 O2 Delivery ROOM AIR 10/20 2057 O2 Flow Rate 2 10/20 2199 Exam General appearance: normal appearance, alert, awake, no acute distress Eyes: normal exam ENT: normal exam Neck: normal inspection, full range of motion Cardiovascular: normal exam, regular rate & rhythm Respiratory: no respiratory distress, diminished breath sounds ABD: normal exam, non-distended, normal bowel sounds, no rebound, soft Genitourinary: catheter in place Extremities: normal capillary refill, dressings to bilateral lower extremities clean dry and intact Musculoskeletal: normal exam Skin: normal exam, intact, warm Neuro: normal exam, alert, intact, oriented Plan: Problem List 1. NSTEMI (non-ST elevated myocardial infarction) 2. Hypotension 3. Pneumonia 4. Chest pain Plan: Patient wishes to go home, care management will discuss with daughter. Raudel will round later today at 0916
--- NOTE | 2016-10-21 14:37 | RADIOLOGY REPORT PS360 ---
CHEST-PORTABLE HISTORY: CHEST PAIN ORDERING PHYSICIAN: Elijah Starks MD PATIENT AGE: 76 years COMPARISON: 10/19/2016 FINDINGS: There are low lung volumes. Cardiomediastinal silhouette and pulmonary vasculature have an unremarkable appearance. There is chronic coarsening of the bronchovascular markings with interval improvement in the right basilar atelectasis or infiltrate. There is some minimal residual vascular crowding versus atelectasis or infiltrate in the right lung base. IMPRESSION: Low lung volumes with vascular crowding. Right basilar atelectasis or infiltrate has improved
[2016-10-22] VITALS (8 sets, daily range): BP systolic 101–156; BP diastolic 40–75
--- NOTE | 2016-10-22 08:47 | ACUTE CARE PROGRESS NOTE (QUA) ---
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 NSTEMI (non-ST elevated myocardial infarction) 2. Hypotension 3. Pneumonia 4. Chest pain Patient condition Improving Plan: continue current care This inpt stay is expected to cross 2 MNs from start of care Yes Comments: slow but steady improvement at 0846
--- NOTE | 2016-10-22 08:47 | ACUTE CARE PROGRESS NOTE (QUA) ---
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 NSTEMI (non-ST elevated myocardial infarction) 2. Hypotension 3. Pneumonia 4. Chest pain Patient condition Improving Plan: continue current care This inpt stay is expected to cross 2 MNs from start of care Yes Comments: slow but steady improvement at 0846
[2016-10-22 09:15] LABS: HEMOGLOBIN 9.9 g/dL (12.2-16.2); LYMPH # 0.8 K/mm3 (0.7-4.5); LYMPH % 7.7 % (10-50.0)
[2016-10-22 11:33] LABS: NEUTROPHILS 86 % (42-76)
--- NOTE | 2016-10-22 13:19 | RADIOLOGY REPORT PS360 ---
PROCEDURE: 2-D M-mode and color Doppler study INDICATIONS FOR THE TEST: Chest pain X COPD Heart Murmur Tobacco Smoking Palpitations Fatigue Syncope Edema Hypertension Diabetes MellitusX Rheumatic Fever SOB KABA ObesityXHyperlipidemia Family History HD Additional History CAD NSTEMI PATIENT INFORMATION HEIGHT: 57 WEIGHT:195 GENDER: Female B/P:110/60 2-D/M-MODE INTERPRETATION: 2-D MEASUREMENTS OBSERVED VALUES IN CMS Right Ventricular Dimension (RVDd) 2.6 Interventricular Septum (Thickness)(IVsd) 1.1 Left Ventricular Internal Dimensions(LVIDd) 4.1 Left Ventricular Posterior Wall (Thickness)(LVPWd) 1.1 Aortic Root 3.1 Aortic Cusp Separation 1.6 Left Atrial Dimensions (LAD) 3.8 2D 1. Left atrium is qualitatively moderately enlarged, left ventricle is normal size, visually estimated ejection fraction 55% with no obvious regional wall motion abnormality, endocardial surfaces are somewhat poorly visualized. 2. The right atrium is moderately enlarged, right ventricle is moderately dilated with mildly reduced contractility. 3. The aortic valve is thickened and calcified leaflet continue to display mobility. 4. The mitral valve has dense mitral calcification which extends and both anterior and posterior mitral leaflet. 5. The tricuspid leaflets are minimally thickened. 6. The pulmonic valve is not well visualized. 7. No significant pericardial effusion noted. DOPPLER INTERROGATION: Doppler interrogation of the aortic mitral and tricuspid valvular presence of mild mitral and tricuspid regurgitation, calculated right ventricular systolic pressure approximately 40 mmHg consistent with mild pulmonary hypertension. CONCLUSION: 1. Technically difficult study because of the patient's factor and poor acoustic windows. 2. Moderate biatrial enlargement, normal left ventricular size, visually estimated ejection fraction 55% with no obvious regional wall motion abnormality, endocardial surface of poorly visualized. 3. Thickened and calcified aortic valve without aortic stenosis aortic insufficiency. 4. Moderately enlarged right ventricle with mild reduced contractility. 5. Mild mitral and tricuspid regurgitation, calculated right ventricular systolic pressure of 40 mmHg consistent with mild pulmonary hypertension. 6. No significant pericardial effusion noted.
[2016-10-23] VITALS (8 sets, daily range): BP systolic 102–128; BP diastolic 53–69
[2016-10-23 09:03] LABS: HEMOGLOBIN 9.3 g/dL (12.2-16.2); LYMPH # 0.7 K/mm3 (0.7-4.5); LYMPH % 6.3 % (10-50.0)
--- NOTE | 2016-10-23 11:16 | ACUTE CARE PROGRESS NOTE (QUA) ---
Progress Notes Subjective Date 10/23/16 Time 1112 Note doing better Patient/family reports: feeling better Nursing reports: no complaints Objective Findings Last VS-Temp:97.9 B/P:123/61 Pulse:75 Resp:18 SaO2:90 OXYGEN Last weight lbs:214 oz:9 K.324 Method:Bed Scales Exam General appearance: alert Eyes: anicteric ENT: dry mucous membranes Neck: no carotid bruit Cardiovascular: regular rate & rhythm Respiratory: no respiratory distress ABD: soft Genitourinary: no hematuria Extremities: moves all Musculoskeletal: no focsl changes Skin: dry Neuro: alert Reviewed: allergies, medications, vital signs, lab results Assessment/Plan Problem List 1. NSTEMI (non-ST elevated myocardial infarction) 2. Hypotension 3. Pneumonia 4. Chest pain Patient condition Improving Plan: continue current care This inpt stay is expected to cross 2 MNs from start of care Yes Comments: will continue with abx at this time Antibiotic Stewardship (2) Current Culture Results Microbiology 10/21 0000 URINE CC: Urine Culture - COMP 10/20 215 BLOOD: Anaerobic Blood Culture - RES 10/20 215 BLOOD: Aerobic Blood Culture - RES Infxn that will respond? Yes Right drug,dose,and route? Yes More targeted antbx? No How long atbx needed? 7 at 1118
[2016-10-24 04:39] VITALS: BP 108/92
[2016-10-24 08:00] VITALS: BP 126/62
--- NOTE | 2016-10-24 08:32 | DISCHARGE SUMMARY STANDARD ---
Demographics Admit date: 10/20/16 Discharge date: 10/24/16 History of present illness History of present illness 76-year-old white female with known coronary disease, recent myocardial infarction and coronary disease status post stenting presented to the emergency department from long-term for complaint of not feeling well. On further evaluation in the ER patient did describe some chest discomfort. Cardiac enzymes are drawn and noted to be elevated and patient therefore admitted for further evaluation and treatment. Nitroglycerin glycerin paste was placed overnight as well as starting some IV fluids. Patient has an acute worsening of her chronic kidney disease with hyperkalemia. Patient's chest discomfort has improved overnight. Preliminary echocardiogram this a.m. revealed ejection fraction increased into the 50 percent range. Cardiology consulted for recommendations. Hospital Course Hospital Course: Pneumonia :X RAY:IMPRESSION: Low lung volumes with vascular crowding. Right basilar atelectasis or infiltrate has improved Chest pain-cardiology consult see note. ECHO RESULTS: CONCLUSION: 1. Technically difficult study because of the patient's factor and poor acoustic windows. 2. Moderate biatrial enlargement, normal left ventricular size, visually estimated ejection fraction 55% with no obvious regional wall motion abnormality, endocardial surface of poorly visualized. 3. Thickened and calcified aortic valve without aortic stenosis aortic insufficiency. 4. Moderately enlarged right ventricle with mild reduced contractility. 5. Mild mitral and tricuspid regurgitation, calculated right ventricular systolic pressure of 40 mmHg consistent with mild pulmonary hypertension. 6. No significant pericardial effusion noted. Transfer back to [place] per patient request, check complete metabolic panel in 1 week. Discharge diagnoses Problem List 1. NSTEMI (non-ST elevated myocardial infarction) 2. Hypotension 3. Pneumonia 4. Chest pain Medications Medications: Discharge meds are as noted. Follow up Follow up in office in: 7 DAYS with: Rita Griffith Comment: We'll see patient Monday on long-term rounds. Rounded with Dr. Starks at 0848
--- NOTE | 2016-10-24 08:32 | DISCHARGE SUMMARY STANDARD ---
Demographics Admit date: 10/20/16 Discharge date: 10/24/16 History of present illness History of present illness 76-year-old white female with known coronary disease, recent myocardial infarction and coronary disease status post stenting presented to the emergency department from halfway for complaint of not feeling well. On further evaluation in the ER patient did describe some chest discomfort. Cardiac enzymes are drawn and noted to be elevated and patient therefore admitted for further evaluation and treatment. Nitroglycerin glycerin paste was placed overnight as well as starting some IV fluids. Patient has an acute worsening of her chronic kidney disease with hyperkalemia. Patient's chest discomfort has improved overnight. Preliminary echocardiogram this a.m. revealed ejection fraction increased into the 50 percent range. Cardiology consulted for recommendations. Hospital Course Hospital Course: Pneumonia :X RAY:IMPRESSION: Low lung volumes with vascular crowding. Right basilar atelectasis or infiltrate has improved Chest pain-cardiology consult see note. ECHO RESULTS: CONCLUSION: 1. Technically difficult study because of the patient's factor and poor acoustic windows. 2. Moderate biatrial enlargement, normal left ventricular size, visually estimated ejection fraction 55% with no obvious regional wall motion abnormality, endocardial surface of poorly visualized. 3. Thickened and calcified aortic valve without aortic stenosis aortic insufficiency. 4. Moderately enlarged right ventricle with mild reduced contractility. 5. Mild mitral and tricuspid regurgitation, calculated right ventricular systolic pressure of 40 mmHg consistent with mild pulmonary hypertension. 6. No significant pericardial effusion noted. Transfer back to [place] per patient request, check complete metabolic panel in 1 week. Discharge diagnoses Problem List 1. NSTEMI (non-ST elevated myocardial infarction) 2. Hypotension 3. Pneumonia 4. Chest pain Medications Medications: Discharge meds are as noted. Follow up Follow up in office in: 7 DAYS with: Rita Griffith Comment: We'll see patient Monday on halfway rounds. Rounded with Dr. Starks at 0848
--- NOTE | 2016-10-24 08:50 | ACUTE CARE PROGRESS NOTE (QUA) ---
Progress Notes Subjective Date 10/24/16 Time 0848 Patient/family reports: feeling better, no complaints Nursing reports: alert Objective Findings Last VS-Temp:98.2 B/P:126/62 Pulse:65 Resp:20 SaO2:96 ROOM AIR Last weight lbs:220 oz:1 K.819 Method:Bed Scales Exam General appearance: normal appearance, alert, active, no acute distress Eyes: normal exam ENT: normal exam Neck: normal inspection, full range of motion Cardiovascular: regular rate & rhythm Respiratory: normal exam, good air movement, no respiratory distress ABD: normal exam, soft Genitourinary: normal voiding & quantity Extremities: normal exam, moves all Musculoskeletal: normal exam Skin: normal exam, intact, warm Neuro: normal exam, alert, intact, oriented Reviewed: allergies, medications, vital signs, lab results, radiology report, consult note Assessment/Plan Problem List 1. NSTEMI (non-ST elevated myocardial infarction) 2. Hypotension Qualifiers: Hypotension type: unspecified hypotension type Qualified Code: I95.9 - Hypotension, unspecified 3. Pneumonia Qualifiers: Pneumonia type: due to unspecified organism Laterality: unspecified laterality Lung location: unspecified part of lung Qualified Code: J18.9 - Pneumonia, unspecified organism 4. Chest pain Patient condition Stable Plan: initiate discharge plan This inpt stay is expected to cross 2 MNs from start of care Yes Comments: Patient requests to go back to [place]. We'll see patient Monday on intermediate rounds Antibiotic Stewardship (2) Current Culture Results Microbiology 10/21 0000 URINE CC: Urine Culture - COMP 10/21 2155 BLOOD: Anaerobic Blood Culture - RES 10/20 215 BLOOD: Aerobic Blood Culture - RES Infxn that will respond? Yes Right drug,dose,and route? Yes More targeted antbx? No at 0850
[2016-10-24 16:00] VITALS: BP 104/83
== END 2016-10-24 18:50 | DRG 280 ==
LOC: ER 17:11 → 2ND 18:34
PROVIDERS: Emergency Medicine; Internal Medicine
DX: I21.4 Non-ST elevation (NSTEMI) myocardial infarction (principal); J18.9 Pneumonia, unspecified organism; I95.9 Hypotension, unspecified; I42.9 Cardiomyopathy, unspecified; E11.9 Type 2 diabetes mellitus without complications; I25.2 Old myocardial infarction; I25.10 Atherosclerotic heart disease of native coronary artery without angina pectoris; Z72.0 Tobacco use; Z95.5 Presence of coronary angioplasty implant and graft
CPT/HCPCS: J0456; J2405; J2543